=== PATIENT | female | born 1970 | race American Indian/Alaskan Native ===

== ENCOUNTER 2020-12-21 10:40 | Outpatient (REF) | payer MEDICARE, MEDICAID, SELFPAY ==
--- NOTE | ~2020-12-21 | XR_ITS ---
EXAMINATION: XR CHEST CLINICAL INFORMATION: COPD COMPARISON: Chest radiographs 07/16/2017, 06/24/2017, 03/20/2017 TECHNIQUE: 2 views of the chest were obtained. FINDINGS: The lungs are clear. No overt hyperinflation. Diaphragms are well domed. The heart is normal in size. The vascularity is normal. There is no airspace consolidation or groundglass opacity or effusion. The costophrenic sulci are clear. The hilar and mediastinal contours and bony structures are unremarkable. XR/XR chest 2V IMPRESSION: Unremarkable examination.
== END 2020-12-21 10:41 | disposition home or self-care (01) ==
LOC: HO.XRAY 10:40
PROVIDERS: Absent Provider Nurse Practitioner Family; PCP Nurse Practitioner Family; Visit Provider Emergency Medicine
DX: J44.1 Chronic obstructive pulmonary disease with (acute) exacerbation (principal)
CPT/HCPCS: 71046

== ENCOUNTER 2021-06-13 14:27 | Outpatient (REF) | payer MEDICARE, MEDICAID, SELFPAY ==
--- NOTE | ~2021-06-13 | XR_ITS ---
EXAMINATION: XR ELBOW, RIGHT CLINICAL INFORMATION: Olecranon bursitis. COMPARISON: None TECHNIQUE: AP, lateral, and oblique views of the right elbow. FINDINGS: The bones and soft tissues are normal. No fracture or joint effusion. Alignment is anatomic. Joint spaces are maintained. XR/XR elbow RT 2V IMPRESSION: Unremarkable right elbow exam.
== END 2021-06-13 14:28 | disposition home or self-care (01) ==
LOC: HO.XRAY 14:27
PROVIDERS: Absent Provider Nurse Practitioner Family; PCP Nurse Practitioner Family; Visit Provider Emergency Medicine
DX: M70.21 Olecranon bursitis, right elbow (principal)
CPT/HCPCS: 73070

== ENCOUNTER → 2021-08-03 10:48 | Outpatient (BNVA) | payer MEDICARE, MEDICAID, SELFPAY | PROVIDERS: Visit Provider Physician Assistant | DX: M77.11 Lateral epicondylitis, right elbow (principal) | CPT/HCPCS: 20550; 20551; 99212; J1020 ==

== ENCOUNTER 2021-09-04 13:27 | Emergency (ER) | payer MEDICARE, MEDICAID, SELFPAY ==
--- NOTE | 2021-09-04 13:29 | ECG_ITS ---
Test Reason : chest pain Blood Pressure : / mmHG Vent. Rate : 085 BPM Atrial Rate : 085 BPM P-R Int : 206 ms QRS Dur : 140 ms QT Int : 406 ms P-R-T Axes : 050 054 001 degrees QTc Int : 483 ms Normal sinus rhythm Left bundle branch block Abnormal ECG When compared with ECG of 16-JUL-2017 11:48, T wave inversion now evident in Inferior leads Heart rate has increased Referred By: Generic ED Physician Electronically Signed By:TIESHA MURRIETA MD
[2021-09-04 14:50] VITALS: BP 134/71; PULSE 81; RESP 16; TEMP 36.6; O2SAT 97; BMI 30.2
[2021-09-04 16:06] LABS: Appearance Urine HAZY; Color Urine YELLOW; Glucose Urine UA NEG (NEG); Leukocyte Esterase Urine NEG (NEG); Nitrite Urine NEG (NEG); Specific Gravity - Urine >= 1.030 (1.005-1.025); UACC Culture Trigger NO; Urine Blood 3+ (NEG); Urine Ketones 5 MG/DL (NEG); Urine Protein NEG (NEG-TRACE)
[2021-09-04 16:14] LABS: Bacteria Urine TRACE /LPF; Mucus Urine TRACE /LPF; Squamous Epithelial Cell Urine 1+ /LPF
[2021-09-04 16:15] LABS: WBC Urine 0 /HPF (0-4)
[2021-09-04 16:16] LABS: MANUAL DIFF FLAG NO
[2021-09-04 16:19] LABS: Basophils Percent Auto 0.5 % (0-2); Eosinophils Absolute Auto 0.1 X10*3/uL (0.0-0.4); Eosinophils Percent Auto 1.5 % (0-4); Hemoglobin 11.1 g/dl (12.0-16.0); Imm Gran Abs Auto 0.06 X10*3/uL (0.00-0.03); Lymphocytes Absolute Auto 1.7 X10*3/uL (1.2-4.9); Lymphocytes Percent Auto 28.1 % (20-40); Mean Corpuscular HGB Conc 32.6 g/dl (31.0-35.0); Mean Corpuscular Hemoglobin 27.6 pg (27.0-33.0); Mean Corpuscular Volume 84.6 fL (80.0-98.0); Mean Platelet Volume 9.1 fL (9.4-12.3); Monocytes Absolute Auto 0.4 X10*3/uL (0.1-1.2); Neutrophils Absolute Auto 3.8 x10*3/uL (2.0-8.3); Neutrophils Percent Auto 61.9 % (45-73); Platelet Count 326 X10*3/uL (160-400); Red Blood Count 4.02 X10*6/uL (4.20-5.50); Red Cell Distribution Width 15.4 % (11.0-16.0); White Blood Count 6.1 X10*3/uL (4.8-10.8)
[2021-09-04 16:36] LABS: Anion Gap 9 (12-20); Blood Urea Nitrogen 16 mg/dL (9-16); COVID-19 Test Negative (Negative); Calcium 9.3 mg/dL (8.4-10.2); Carbon Dioxide 29 mmol/L (22-29); Chloride 107 mmol/L (96-108); Creatinine Clr Calc Pharmacy 68.8; Estimated Glomerular Filt Rate > 60; Glucose Random 111 mg/dL (60-115); IDNOW Serial# 9DD0AD1C; Potassium 4.2 mmol/L (3.3-5.1); Sodium 141 mmol/L (135-145)
[2021-09-04 16:38] LABS: Troponin-I High Sensitivity < 3.5 ng/L (<3.5-17.0)
--- NOTE | 2021-09-04 16:59 | ED.CHESTPAIN ---
HPI - Chest Pain General Chief Complaint: Chest Pain Stated Complaint: chest pain Time Seen by Provider: 09/04/21 16:59 Source: patient Limitations: no limitations History of Present Illness HPI narrative: Patient with no known coronary artery disease history of hypertension comes here for complaining of dizziness chest pain since 03:00 o'clock in the morning patient went to bed normally mid chest pain woke her up pain is sharp in character getting better/worse with time also she has numbness to the left cheek no shortness of breath no diaphoresis no nausea or vomiting patient never had similar pain in the past no issues with stomach patient does get pain in the chest when she gets a panic attack but this pain she feels different patient had a stress test 2 years ago was negative Related Data Home Medications Medication Instructions Recorded Confirmed albuterol sulfate 90 mcg/actuation 1 inh INHALATION QID 08/03/21 aerosol inhaler (ProAir HFA) azelastine 137 mcg (0.1 %) nasal 1 spray INTRANASAL BID 08/03/21 spray aerosol carbamide peroxide 6.5 % ear drops 5 drp OTIC (EAR) LEFT DAILY 08/03/21 (Debrox) divalproex 125 mg tablet,delayed 125 mg PO TID 08/03/21 release (Depakote) ferrous sulfate 15 mg iron (75 0.5 ml PO DAILY 08/03/21 mg)/mL oral drops fluticasone 100 mcg-salmeterol 50 1 inh INHALATION BID 08/03/21 mcg/dose blistr powdr for inhalation (Advair Diskus) losartan 25 mg tablet 25 mg PO DAILY 08/03/21 melatonin 3 mg capsule 3 mg PO BEDTIME PRN 08/03/21 metoprolol succinate 25 mg 12.5 mg PO DAILY 08/03/21 tablet,extended release 24 hr naproxen 250 mg tablet 250 mg PO BID PRN 08/03/21 quetiapine 25 mg tablet (Seroquel) 25 mg PO DAILY 08/03/21 Allergies Allergy/AdvReac Type Severity Reaction Status Date / Time No Known Allergies Allergy Verified 08/03/21 11:18 Review of Systems Review of Systems: Yes all other systems are reviewed and are negative PMFSH Past Medical History Medical History Bipolar 1 disorder Hypercholesteremia Hypertension Social History Social History Advance Directives: No Advance Directives Information Provided: No Patient : Yes 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al status: disabled 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 Oriented X3. No acute distress. Eyes: No pallor or icterus ENT: Pharynx normal. Oral Mucosa moist Neck: Normal inspection. Neck supple. CVS: Normal heart rate and rhythm. Pulses normal. Respiratory: No respiratory distress. Equal air entry bilateral, no wheezing/rales/rhonchi Abdomen: Soft and nontender. Bowel sounds are present, no mass palpable, no CVA tenderness Skin: Skin warm and dry. Normal skin color. Normal skin turgor. Extremities: No lower extremity edema. No calf tenderness Neuro: Oriented X 3. MDM - Chest Pain MDM Narrative Medical decision making narrative: Two sets of cardiac enzymes negative EKG without any acute ischemic changes patient had a recent stress test 2 years ago was negative. No response to nitro paste. 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 Result diagrams: 09/04/21 15:59 09/04/21 15:59 Labs: Lab Results 09/04/21 09/04/21 09/04/21 Range/Units 15:58 15:59 15:59 WBC 6.1 (4.8-10.8) X10*3/uL RBC 4.02 L (4.20-5.50) X10*6/uL Hgb 11.1 L (12.0-16.0) g/dl Hct 34.0 L (37.0-47.0) % MCV 84.6 (80.0-98.0) fL MCH 27.6 (27.0-33.0) pg MCHC 32.6 (31.0-35.0) g/dl RDW 15.4 (11.0-16.0) % Plt Count 326 (160-400) X10*3/uL MPV 9.1 L (9.4-12.3) fL Immature Gran % (Auto) 1.0 H (0.0-0.4) % Neut % (Auto) 61.9 (45-73) % Lymph % (Auto) 28.1 (20-40) % [place] % (Auto) 7.0 (2-11) % Eos % (Auto) 1.5 (0-4) % Baso % (Auto) 0.5 (0-2) % Lymph # (Auto) 1.7 (1.2-4.9) X10*3/uL [place] # (Auto) 0.4 (0.1-1.2) X10*3/uL Eos # (Auto) 0.1 (0.0-0.4) X10*3/uL Baso # (Auto) 0.0 (0.0-0.2) X10*3/uL Abs Immat Gran (auto) 0.06 H (0.00-0.03) X10*3/uL Absolute Neuts (auto) 3.8 (2.0-8.3) x10*3/uL Absolute Nucleated RBC 0.000 (0.0-0.012) X10*3/uL Nucleated RBC % (auto) 0.0 (0.0-0.2) /100WBC Sodium 141 (135-145) mmol/L Potassium 4.2 (3.3-5.1) mmol/L Chloride 107 (96-108) mmol/L Carbon Dioxide 29 (22-29) mmol/L Anion Gap 9 L (12-20) BUN 16 (9-16) mg/dL Creatinine 0.83 (0.5-1.4) mg/dL Estim Creat Clear Calc 68.8 Estimated GFR > 60 Random Glucose 111 (60-115) mg/dL Calcium 9.3 (8.4-10.2) mg/dL Troponin I High Sens (<3.5-17.0) ng/L Urine Color YELLOW Urine Appearance HAZY Urine pH 6.0 (5.0-8.0) Ur Specific [place] >= 1.030 H (1.005-1.025) Urine Protein NEG (NEG-TRACE) MG/DL Urine Glucose (UA) NEG (NEG) MG/DL Urine Ketones 5 (NEG) MG/DL Urine Blood 3+ H (NEG) Urine Nitrite NEG (NEG) Ur Leukocyte Esterase NEG (NEG) Urine RBC 10-14 H (0) /HPF Urine WBC 0 (0-4) /HPF Ur Squamous Epith Cells 1+ /LPF Urine Bacteria TRACE /LPF Urine Mucus TRACE /LPF COVID-19 (BECKY) (Negative) COVID-19 Clin Com 09/04/21 09/04/21 09/04/21 Range/Units 15:59 15:59 19:00 WBC (4.8-10.8) X10*3/uL RBC (4.20-5.50) X10*6/uL Hgb (12.0-16.0) g/dl Hct (37.0-47.0) % MCV (80.0-98.0) fL MCH (27.0-33.0) pg MCHC (31.0-35.0) g/dl RDW (11.0-16.0) % Plt Count (160-400) X10*3/uL MPV (9.4-12.3) fL Immature Gran % (Auto) (0.0-0.4) % Neut % (Auto) (45-73) % Lymph % (Auto) (20-40) % [place] % (Auto) (2-11) % Eos % (Auto) (0-4) % Baso % (Auto) (0-2) % Lymph # (Auto) (1.2-4.9) X10*3/uL [place] # (Auto) (0.1-1.2) X10*3/uL Eos # (Auto) (0.0-0.4) X10*3/uL Baso # (Auto) (0.0-0.2) X10*3/uL Abs Immat Gran (auto) (0.00-0.03) X10*3/uL Absolute Neuts (auto) (2.0-8.3) x10*3/uL Absolute Nucleated RBC (0.0-0.012) X10*3/uL Nucleated RBC % (auto) (0.0-0.2) /100WBC Sodium (135-145) mmol/L Potassium (3.3-5.1) mmol/L Chloride (96-108) mmol/L Carbon Dioxide (22-29) mmol/L Anion Gap (12-20) BUN (9-16) mg/dL Creatinine (0.5-1.4) mg/dL Estim Creat Clear Calc Estimated GFR Random Glucose (60-115) mg/dL Calcium (8.4-10.2) mg/dL Troponin I High Sens < 3.5 < 3.5 (<3.5-17.0) ng/L Urine Color Urine Appearance Urine pH (5.0-8.0) Ur Specific [place] (1.005-1.025) Urine Protein (NEG-TRACE) MG/DL Urine Glucose (UA) (NEG) MG/DL Urine Ketones (NEG) MG/DL Urine Blood (NEG) Urine Nitrite (NEG) Ur Leukocyte Esterase (NEG) Urine RBC (0) /HPF Urine WBC (0-4) /HPF Ur Squamous Epith Cells /LPF Urine Bacteria /LPF Urine Mucus /LPF COVID-19 (BECKY) Negative (Negative) COVID-19 Clin Com See Note ECG Data ECG #1: Attestation: I personally reviewed and interpreted this ECG as follows: Interpretation: Normal sinus rhythm heart rate 85 beats per minute left branch block tear motion inferior leads no acute ST wave changes Discharge Plan Discharge Clinical Impression: Chest pain Qualifiers: Chest pain type: precordial pain Qualified Code(s): R07.2 - Precordial pain Patient Disposition: Home, Self-Care Instructions: Chest Pain (ED) Additional Instructions: Rest at home Continue take baby aspirin daily Follow with PCP/passenger car 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
[2021-09-04] MEDS: Nitroglycerin 2 % Oint 1 GM Packet 0.5 INCH TRANSDERMA (17:45)
[2021-09-04 19:25] LABS: Troponin-I High Sensitivity < 3.5 ng/L (<3.5-17.0)
[2021-09-04] MEDS: Magnesium Hydrox/Alum Hydrox 30 ML ORAL.SUSP PO (19:45)
== END 2021-09-04 19:55 | disposition home or self-care (01) ==
PROVIDERS: Emergency Provider Internal Medicine; PCP Nurse Practitioner Family
DX: R07.2 Precordial pain (principal); I10 Essential (primary) hypertension; Z20.822 Contact with and (suspected) exposure to COVID-19
CPT/HCPCS: 36415; 80048; 81001; 84484; 85025; 87635; 93005; 99283; 99284

== ENCOUNTER 2021-11-26 10:00 | Outpatient (REF) | payer MEDICARE, MEDICAID, SELFPAY ==
--- NOTE | ~2021-11-26 | MM_ITS ---
EXAMINATION: MM SCREENING DIGITAL BREAST TOMOSYNTHESIS, BILATERAL CLINICAL INFORMATION: Screening. Asymptomatic. Probable benign calcifications right breast central 9:00 position. The lifetime risk of breast cancer based on the Tyrer-Cuzick Model is 7%. COMPARISON: Mammography: 12/25/2017 (BI-RADS 3), 07/07/2017, 01/01/2017, 12/17/2016 (BI-RADS 0) TECHNIQUE: Digital breast tomosynthesis is performed in both the craniocaudal and mediolateral oblique views along with computer-aided detection (CAD). Synthesized 2D images are generated from the tomosynthesis. FINDINGS: The breasts are heterogeneously dense, which may obscure small masses (ACR BI-RADS breast composition Category c). There are subtle architectural changes suggested mid upper outer left breast representing new finding from prior exam. Patient will be recalled for additional imaging. The remainder of the bilateral breast parenchymal pattern is similar to prior studies. There is no significant mass or other areas of architectural change. Calcifications for follow-up central posterior 9:00 right breast are likely stable from prior diagnostic exam. There are also some new coarse benign-appearing calcifications anterior upper outer right breast. Additional magnification views will be obtained at time of recall to complete calcification surveillance. MM/MM tomosynthesis screening BI IMPRESSION: 1. Left: Architectural changes upper outer quadrant, new from prior exams. 2. Right: Grouped calcifications posterior central 9:00 anterior upper outer right breast likely benign. ASSESSMENT: BI-RADS 0: Incomplete - Need Additional Imaging Evaluation RECOMMENDATION: 1. Additional views of the left breast: Rolled CC x2, spot ML. Targeted ultrasound if warranted after review of the additional views. 2. Additional views right breast: Magnification CC, magnification ML. 3. Radiology department staff will contact the patient for additional imaging. This patient's information was entered into a reminder system with a target due date for their next mammogram.
== END 2021-11-26 10:01 | disposition home or self-care (01) ==
LOC: HO.MAMMO 10:00
PROVIDERS: PCP Nurse Practitioner Family; Visit Provider Nurse Practitioner Family
DX: Z12.31 Encounter for screening mammogram for malignant neoplasm of breast (principal)
CPT/HCPCS: 77063; 77067

== ENCOUNTER 2022-01-14 14:25 | Outpatient (REF) | payer MEDICARE, MEDICAID, SELFPAY ==
--- NOTE | ~2022-01-14 | US_ITS ---
EXAMINATION: US DIAGNOSTIC ULTRASOUND BREAST, LEFT CLINICAL INFORMATION: Circumscribed lesion medial aspect of the left breast. Region of architectural distortion lateral aspect of the left breast.. COMPARISON: Mammography of same day and studies dating back to April 04, 2015. TECHNIQUE: Ultrasound of the breast is performed with real-time light scale imaging and color Doppler. FINDINGS: Ultrasound of the lateral aspect of the left breast approximately 2:00 position 7 cm from nipple there is an ill-defined region of parenchyma with some areas of shadowing but no definite focal mass being appreciated. There appears to be some architectural distortion associated with the region of shadowing. Ultrasound-guided core biopsy of this location is recommended with clip placement and then post biopsy mammogram to compare to whether this corresponds to the spiculated region on mammography. Ultrasound evaluation about the medial aspect of the left breast 10:00 position approximately 7 cm from the nipple demonstrates what appears to be a complex cyst with septations. The lesion is wider than it is tall without internal vascularity. There is distal sound enhancement without distal sound shadowing. This measures approximately 2.4 x 1.8 x 0.7 cm in size. Results are discussed with the patient at time of visit. US/US breast LT limited IMPRESSION: Probably benign right breast calcifications for which 6 month follow-up spot magnification views are recommended. Probably benign complex cystic lesion about the medial aspect of the left breast for which 6 month follow-up ultrasound is recommended. Suspicious mammographic and ultrasound lesion about the lateral aspect of the left breast for which attempt at ultrasound-guided core biopsy is recommended. The above was discussed with the patient at time of study. Breast center navigator will call referring provider's office with the above recommendation. ASSESSMENT: BI-RADS 4: Suspicious left breast BI-RADS 3, probably benign right breast. RECOMMENDATION: Ultrasound-guided core biopsy lateral lesion left breast. If ultrasound biopsy cannot be performed then stereotactic core biopsy could be done.
--- NOTE | ~2022-01-14 | MM_ITS ---
EXAMINATION: MM DIAGNOSTIC DIGITAL BREAST TOMOSYNTHESIS, BILATERAL US BREAST TARGETED, LEFT CLINICAL INFORMATION: Right breast calcifications and left breast region of architectural distortion COMPARISON: Mammography: 11/26/2021 and studies dating back to 04/04/2015. TECHNIQUE: Digital breast tomosynthesis is performed. 2D images are generated from the tomosynthesis. The following views are obtained: Left breast craniocaudal and spot compression mediolateral oblique and rolled craniocaudal views. Spot magnification views of the right breast in craniocaudal and 90 degree mediolateral views. Targeted left breast ultrasound. FINDINGS: The breasts are heterogeneously dense, which may obscure small masses (ACR BI-RADS breast composition Category c). Spot magnification views of the right breast demonstrate a grouping of slowly increasing calcifications which are rounded in appearance without linear or branching forms. A stable grouping of skin calcifications are seen within the deep lateral aspect of the right breast. About the superior medial aspect of the left breast, there is a well-circumscribed lobular density measuring approximately 2.4 x 1.9 cm in size lying approximately 7 cm from the nipple. About the upper outer aspect of the left breast, there is a spiculated region of architectural distortion about the deep lateral aspect approximately 8 cm from the nipple. There is question of some associated calcifications. Ultrasound of the lateral aspect of the left breast approximately 2 o'clock position 7 cm from nipple, there is an ill-defined region of parenchyma with some areas of shadowing but no definite focal mass being appreciated. There appears to be some architectural distortion associated with the region of shadowing. Ultrasound-guided core biopsy at this location is recommended with clip placement and then post biopsy mammogram to compare to whether this corresponds to the spiculated region on mammography. Ultrasound evaluation about the medial aspect of the left breast 10 o'clock position approximately 7 cm from the nipple demonstrates what appears to be a complex cyst with septations. The lesion is wider than it is tall without internal vascularity. There is distal sound enhancement without distal sound shadowing. This measures approximately 2.4 x 1.8 x 0.7 cm in size. Results are discussed with the patient at time of visit. MM/MM tomosynthesis added view BI IMPRESSION: 1. Probably benign right breast calcifications for which 6 month follow-up spot magnification views are recommended. 2. Probably benign complex cystic lesion about the medial aspect of the left breast for which 6 month follow-up ultrasound is recommended. 3. Suspicious mammographic and ultrasound lesion about the lateral aspect of the left breast for which attempt at ultrasound-guided core biopsy is recommended. The above was discussed with the patient at time of study. Breast center navigator will call referring provider's office with the above recommendation. ASSESSMENT: BI-RADS 4: Suspicious Left Breast BI-RADS 3: Probably benign right breast. RECOMMENDATION: Ultrasound-guided core biopsy lateral lesion left breast
== END 2022-01-14 14:26 | disposition home or self-care (01) ==
LOC: HO.MAMMO 14:25
PROVIDERS: PCP Nurse Practitioner Family; Visit Provider Nurse Practitioner Family
DX: R92.1 Mammographic calcification found on diagnostic imaging of breast (principal)
CPT/HCPCS: 76642; 77062; 77066

== ENCOUNTER 2022-03-07 09:00 | Outpatient (REF) | payer MEDICARE, MEDICAID, SELFPAY ==
--- NOTE | ~2022-03-07 | US_ITS ---
EXAMINATION: US DIAGNOSTIC ULTRASOUND BREAST, LEFT CLINICAL INFORMATION: Architectural changes outer left breast for tissue sampling (stereotactic versus ultrasound-guided). COMPARISON: Mammography 11/26/2021, 1 01/14/2022, targeted left breast ultrasound 01/14/2022. TECHNIQUE: Ultrasound left breast is targeted to the outer breast. Grayscale imaging and color Doppler are performed. FINDINGS: There is subtle inhomogeneous echogenicity mid outer left breast 7 cm from nipple, likely corresponding to the finding on mammography. There is no strong focal shadowing. As the lesion is more consistently visualized on tomography, tissue sampling using stereotactic guidance was performed, described in separate report. US/US breast LT limited IMPRESSION: Subtle inhomogeneous echogenicity mid outer left breast likely corresponding to finding on recent diagnostic mammography. As the lesion is more consistent with visualized on tomography, stereotactic sampling was performed, described in separate report. ASSESSMENT: BI-RADS 4: Suspicious RECOMMENDATION: Core biopsy left breast using stereotactic guidance. (Biopsy performed 03/07/2022, separate report).
--- NOTE | ~2022-03-07 | MM_ITS ---
EXAMINATION: STEREOTACTIC TOMOSYNTHESIS-GUIDED VACUUM-ASSISTED BREAST BIOPSY, LEFT SPECIMEN RADIOGRAPH, LEFT POST PROCEDURE DIGITAL BREAST TOMOSYNTHESIS, LEFT CLINICAL INFORMATION: Architectural changes outer left breast for tissue sampling. COMPARISON: Mammography 01/14/2022, 11/26/2021, 12/25/2017, ultrasound left breast 03/07/2022, 01/14/2022. TECHNIQUE/PROCEDURE: Informed consent was obtained from the patient after discussion of the benefits, risks, and alternatives to biopsy today. Patient appeared to understand. Gave opportunity for questions. Patient signed consent form. BIOPSY TABLE: [employer] Prone Biopsy System. LESION: Subtle architectural changes outer left breast, approximately 7.5 cm from nipple. LOCAL ANESTHESIA: 10 mL carbonated 1% lidocaine; 10 mL 1% lidocaine with epinephrine. DERMATOTOMY: Single skin don dermatotomy performed. NEEDLE: [employer] Eviva 9-gauge vacuum assisted core biopsy device. APPROACH: caudal cranial. TARGETING: Combination of digital breast tomosynthesis and stereotactic digital mammography used for targeting. CORES: 12. CLIP: [employer] T-shaped marker. SPECIMEN RADIOGRAPH: Specimen radiograph is taken in separate room using digital mammography. There are scattered fibroglandular densities within the cores. POST PROCEDURE DIGITAL BREAST TOMOSYNTHESIS, LEFT: The post biopsy mammogram is performed in separate room using separate digital mammography equipment from the biopsy procedure. CC and ML views are obtained. 2-D synthesized images are generated from the tomography. The breasts are heterogeneously dense, which may obscure small masses (breast composition category: c). The clip marker is in position, corresponding to the vicinity of architectural changes noted on recent imaging. No gross hematoma. The patient tolerated the procedure well. No immediate complications. Home instructions reviewed with the patient. Final pathology results are pending. MM/MM stereotactic biopsy LT IMPRESSION: 1. Digital tomosynthesis-guided core biopsy left breast with clip placement. 2. Specimen radiograph taken and post procedure mammogram. There is satisfactory positioning of the biopsy clip. 3. Final pathology results pending. An addendum report will be issued.
[2022-03-07] MEDS: Lidocaine HCl 1 % 20 ML VIAL 10 ML SUBCUT (11:19)
[2022-03-07] MEDS: Sodium Bicarbonate 8.4% 50 MEQ/50 ML VIAL SUBCUT (11:22)
== END 2022-03-07 09:01 | disposition home or self-care (01) ==
LOC: HO.MAMMO 09:00
PROVIDERS: PCP Nurse Practitioner Family; Visit Provider Surgery
DX: R92.8 Other abnormal and inconclusive findings on diagnostic imaging of breast (principal)
CPT/HCPCS: 19081; 76642; 88305; 88341; 88342; 88360; 99202; A4648

== ENCOUNTER → 2022-03-12 13:45 | Outpatient (BNVA) | payer MEDICARE, MEDICAID, SELFPAY | PROVIDERS: PCP Nurse Practitioner Family; Visit Provider Surgery | DX: R92.8 Other abnormal and inconclusive findings on diagnostic imaging of breast (principal) | CPT/HCPCS: 99212 ==

== ENCOUNTER 2022-03-20 06:13 | Day surgery (SDC) | payer MEDICARE, MEDICAID, SELFPAY ==
--- NOTE | 2022-03-19 09:43 | P.CONAN_ITS ---
Documented by User: Mariia Grove NP 03/19/22 09:45 HPI - Anesthesia Eval Consult details Narrative: 51yo F for Left [place] Node Biopsy, Breast Lumpectomy/Needle Loc PMFSH Active Problems Active Problems: All Active Problems (Updated 02/28/22 @ 07:56 by Rafal Munoz MD) Abnormal ultrasound of breast (Acute) Abnormal mammogram of left breast (Acute) Lateral epicondylitis of right elbow (Acute) Past Medical History Medical History Anemia Bipolar 1 disorder COPD (chronic obstructive pulmonary disease) Hypercholesteremia Hypertension Surgical History Surgical History History of hysterectomy (03/01/22) Hx of foot surgery Social History Social History Alcohol intake: never Patient Tobacco Use Status: Former Tobacco user Quit Date: 8 yrs ago Use of substances other than those prescribed or required for medical reasons: No Are you DNR?: No Advance Directives: No Advance Directives Information Provided: Yes 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al status: disabled 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 Meds Allergies Allergy/AdvReac Type Severity Reaction Status Date / Time No Known Allergies Allergy Verified 03/20/22 06:59 Home Medications Medication Instructions Recorded Confirmed Last Taken Type albuterol sulfate 90 mcg/actuation 1 inh INHALATION QID 08/03/21 03/20/22 Unknown History aerosol inhaler (ProAir HFA) divalproex 125 mg tablet,delayed 125 mg PO TID 08/03/21 03/20/22 Unknown History release (Depakote) ferrous sulfate 15 mg iron (75 0.5 ml PO DAILY 08/03/21 03/20/22 Unknown History mg)/mL oral drops fluticasone 100 mcg-salmeterol 50 1 inh INHALATION BID 08/03/21 03/20/22 Unknown History mcg/dose blistr powdr for inhalation (Advair Diskus) losartan 25 mg tablet 25 mg PO DAILY 08/03/21 03/20/22 Unknown History melatonin 3 mg capsule 3 mg PO BEDTIME PRN 08/03/21 03/20/22 Unknown History metoprolol succinate 25 mg 12.5 mg PO DAILY 08/03/21 03/20/22 Unknown History tablet,extended release 24 hr quetiapine 25 mg tablet (Seroquel) 25 mg PO DAILY 08/03/21 03/20/22 Unknown History umeclidinium 62.5 mcg/actuation 1 inh INHALATION DAILY 03/07/22 03/20/22 Unknown History blister powder for inhalation (Incruse Ellipta) Exam Exam Date and Time: March 19, 2022 0943 Pertinent Lab Results Pertinent Lab Results: Laboratory Tests 09/04/21 09/04/21 15:59 15:59 WBC 6.1 Hgb 11.1 L Hct 34.0 L Plt Count 326 Sodium 141 Potassium 4.2 Chloride 107 Carbon Dioxide 29 BUN 16 Creatinine 0.83 Narrative Narrative: EKG 08/2021 Vent. Rate : 085 BPM ? ? Atrial Rate : 085 BPM ?? P-R Int : 206 ms? QRS Dur : 140 ms ? ? QT Int : 406 ms ? ? ? P-R-T Axes : 050 054 001 degrees ?? QTc Int : 483 ms ? Normal sinus rhythm Left bundle branch block Abnormal ECG When compared with ECG of 16-JUL-2017 11:48, T wave inversion now evident in Inferior leads Heart rate has increased Assessment and Plan Assessment Anesthesia Assessment: Chart Reviewed Documented by User: Tala Hanna MD 03/20/22 12:29 [facility] Past Medical History Medical History Anemia Bipolar 1 disorder COPD (chronic obstructive pulmonary disease) Hypercholesteremia Hypertension Surgical History Surgical History History of hysterectomy (03/01/22) Hx of foot surgery History of Problems with Anesthesia: No Social History Social History Alcohol intake: never Patient Tobacco Use Status: Former Tobacco user Quit Date: 8 yrs ago Use of substances other than those prescribed or required for medical reasons: No Are you DNR?: No Advance Directives: No Advance Directives Information Provided: Yes 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al status: disabled 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 Meds Allergies Allergy/AdvReac Type Severity Reaction Status Date / Time No Known Allergies Allergy Verified 03/20/22 06:59 Home Medications Medication Instructions Recorded Confirmed Last Taken Type albuterol sulfate 90 mcg/actuation 1 inh INHALATION QID 08/03/21 03/20/22 Unknown History aerosol inhaler (ProAir HFA) divalproex 125 mg tablet,delayed 125 mg PO TID 08/03/21 03/20/22 Unknown History release (Depakote) ferrous sulfate 15 mg iron (75 0.5 ml PO DAILY 08/03/21 03/20/22 Unknown History mg)/mL oral drops fluticasone 100 mcg-salmeterol 50 1 inh INHALATION BID 08/03/21 03/20/22 Unknown History mcg/dose blistr powdr for inhalation (Advair Diskus) losartan 25 mg tablet 25 mg PO DAILY 08/03/21 03/20/22 Unknown History melatonin 3 mg capsule 3 mg PO BEDTIME PRN 08/03/21 03/20/22 Unknown History metoprolol succinate 25 mg 12.5 mg PO DAILY 08/03/21 03/20/22 Unknown History tablet,extended release 24 hr quetiapine 25 mg tablet (Seroquel) 25 mg PO DAILY 08/03/21 03/20/22 Unknown History umeclidinium 62.5 mcg/actuation 1 inh INHALATION DAILY 03/07/22 03/20/22 Unknown History blister powder for inhalation (Incruse Ellipta) Exam Airway Mallampati Class: II (Poor dentition) TM Dist: >3cm Neck ROM: Full Loose/Missing/Broken Teeth: No Heart: RRR Lungs: CTA Assessment and Plan Assessment Anesthesia Assessment: Anesthesia Plan Discussed Final Anesthetic Review History of Problems with Anesthesia: No NPO: Yes ASA Class: II Final Preanesthetic Review: Meds/Allgs Chart Reviewed, Consent Obtained/Reviewed and Anes Risks/Benef Reviewed Patient Risk: Low Procedure Risk: Low Anesthetic Plan Anesthetic Plan: GA Disposition: Standard PACU
[2022-03-20] VITALS (8 sets, daily range): BP systolic 133–152; BP diastolic 73–93; PULSE 68–89; RESP 15–20; TEMP 36.3–36.6; O2SAT 96–100; BMI 29.7
--- NOTE | ~2022-03-20 | NM_ITS ---
EXAMINATION: NM LYMPHOSCINTIGRAPHY BREAST, LEFT CLINICAL INFORMATION: Invasive ductal cancer with tubular features left breast. COMPARISON: Mammography 11/26/2021, 01/14/2022, 03/07/2022. TECHNIQUE: Informed consent was obtained prior to the exam. Lidocaine gel administered to areola within 60 minutes of the procedure. Technetium 99m-Tilmanocept 0.5 mCi was divided into 4 syringes with intradermal administration at 4 quadrants around the areola. The patient tolerated the procedure well. Imaging is performed in 3 views within 30 minutes of injection. FINDINGS: There is strong activity around the areola. There is a strong focus of activity at the low axillary tail. The CANDACE view suggests several nodes with activity. NM/NM sentinel node w imaging IMPRESSION: Status post left breast radionuclide lymphoscintigraphy for sentinel lymph node mapping.
--- NOTE | ~2022-03-20 | MM_ITS ---
EXAMINATION: MM MAMMOGRAM GUIDED NEEDLE LOCALIZATION BREAST, LEFT MM NEEDLE LOCALIZATION SPECIMEN FROM THE LEFT BREAST CLINICAL INFORMATION: Recent diagnosis left breast cancer (invasive ductal carcinoma with tubular features, DCIS, LCIS, flat epithelial atypia). COMPARISON: Mammography 11/26/2021, 01/14/2022, 03/07/2022. TECHNIQUE NEEDLE LOC: Proper informed consent is obtained from the patient after discussion of the procedure, potential risks and complications, and alternatives including declining the procedure today. Patient was given an opportunity for questions. The patient appeared to understand. Also obtained consent for sentinel lymph node mapping to be described in separate report. The patient consented to the procedure and signed the consent form. GUIDANCE: Digital mammography. APPROACH: Lateral Medial. TARGET: T-shaped biopsy clip marker and biopsy changes posterior lateral left breast. ANESTHESIA: Carbonated lidocaine 1%: 5 mL. LOCALIZATION MARKER: [place] [employer]. 7.5 cm length. The skin is prepped and local anesthesia administered. The needle is positioned and position assessed with mammography. The wire is hooked into position. [place] needle protector placed. The patient tolerated the procedure well and had no immediate complication. Following the procedure, 4% lidocaine ointment was administered to the left areola and covered with Tegaderm in anticipation of nuclear lymphoscintigraphy injection for sentinel lymph node mapping. Localization procedure results called to senior medical billing specialist (Geovanna) for Dr. Munoz following procedure. TECHNIQUE SPECIMEN RADIOGRAPH: Imaging of the excised specimen is performed using digital mammography in 1 view. FINDINGS SPECIMEN RADIOGRAPH: The specimen shows the distal needle and distal hookwire are delivered intact. The proximal needle and wire were sectioned in OR prior to delivery of the specimen. The biopsy clip marker is identified in the specimen adjacent to the localization needle. Results were called to Dr. Rafal Munoz in the operating room at the time of imaging. MM/MM needle loc LT IMPRESSION: 1. Status post left breast needle localization with wire hooked into position. 2. Post operative specimen radiograph obtained.
--- NOTE | 2022-03-20 07:36 | MHC.SHP ---
Pre-Procedural Eval Section A Date of Service: 03/20/22 The patient is an INPATIENT: No Changes since office visit: Yes Patient answered all questions; No Cold of Flu in the past 2 weeks, No New Medical Problems and No Changes in Medication The History & Physical has been completed within 30 days and I have reviewed it.: Yes Section B Chief Complaint: abnormal fingings Allergies: Allergies Allergy/AdvReac Type Severity Reaction Status Date / Time No Known Allergies Allergy Verified 03/20/22 06:59 Plan Diagnosis/Plan: Unchanged I have reviewed the history and physical and performed a pertinent physical examination on my patient. No changes have occurred unless specified.
[2022-03-20] MEDS: Lidocaine HCl 1 % 20 ML VIAL 9 ML SUBCUT (09:17)
[2022-03-20] MEDS: Sodium Bicarbonate 8.4% 50 MEQ/50 ML VIAL SUBCUT (09:18)
--- NOTE | 2022-03-20 13:45 | W.PM.OPN ---
Operative Note Operative Note Date of Service: 03/20/22 Narrative: Preoperative diagnosis:Left breast Invasive ductal carcinoma Postoperative diagnosis:same Procedure:Left breast lumpectomy with needle localization, left axillary sentinel node biopsy Surgeon: Rafal Munoz MD Animal Killer: no physician Anesthesia:General LMA Indications for procedure: 51 year old female with an abnormal mammogram, s/p radiologic biopsy, positive for ductal carcinoma, left breast. Operative findings:Localizing clip in the specimen xray, gross margins negative Specimen:1. left breast lumpectomy, 2. left axillary sentinel nodes 1-4. Estimated blood loss:15 mls Complications:none Procedure details: Patient was brought to the OR placed in a supine position. After administering general anesthesia the patient's left breast and axilla were prepped with ChloraPrep and draped in a sterile fashion. A surgical time-out was called the consent confirmed. Patient received preoperative antibiotics and Venodyne boots were in place. Local anesthesia consisting of 0.25% Sensorcaine was then infiltrated in a in a curvilinear fashion just below the nipple-areolar complex in the 7 to 4 o'clock position. A curvilinear incision was then made carried out through subcutaneous tissue. Superior and inferior skin flaps were then created. Dissection was then continued down to the localizing needle in the lower outer quadrant of the left breast. The dissection was then continued around the needle down to the tip and beginning in the medial followed by a lateral followed by superior and posterior margins. The needle was cut and brought up through the incision. Posterior margins were then completed and the specimen removed. This was then sent to Radiology for specimen x-ray. This confirmed a marking clip within the specimen. It was then sent to pathology for gross margin examination. Attention was then directed to the left axilla. Using the gamma probe an area of increased activity was noted. Incision was then made just below the hairline of the left axilla. This carried down through subcutaneous tissue up to the clavipectoral fascia. Using the gamma probe as a guide several hot nodes were identified. These were labeled as sentinel node 1 through 4. These were sent as separate specimens. Wounds were then checked for hemostasis. Wounds were irrigated with saline solution and suctioned dry. Clavipectoral fascia was then reapproximated using interrupted 3-0 Polysorb sutures. Dermis was reapproximated using interrupted 3-0 Polysorb sutures. Skin was then closed using a running subcuticular Polysorb suture. After confirmation from pathology that the specimen was complete, the deep breast tissue was reapproximated using interrupted 3-0 Polysorb sutures. Dermis was reapproximated using interrupted 3-0 Polysorb sutures. Skin was closed using a running subcuticular 4-0 Polysorb suture. Sterile soft dressings consisting of Steri-Strips, 2 x 2 gauze, and Tegaderm were then applied. The patient tolerated the procedure well. Sponge, instrument, needle counts reported as correct. Patient was transferred to PACU in stable condition. Breast [place] Node Biopsy Substrate(s) used for sentinel node biopsy in the non-neoadjuvant setting: Radiotracer Substrate(s) used for sentinel node biopsy in the neoadjuvant setting: N/A All colored nodes or non-colored nodes present at the end of a dye filled lymphatic channel were removed, if dye was used as the substrate for localization: N/A All significantly radioactive nodes were removed, if radionuclide was used as the substrate for localization: Yes All palpably suspicious nodes were removed, if present: Yes If clips were placed in pathology-involved nodes, those nodes were identified and removed: N/A General Surg. - Synoptic Notes Breast [place] Node Biopsy Substrate(s) used for sentinel node biopsy in the non-neoadjuvant setting: Radiotracer Substrate(s) used for sentinel node biopsy in the neoadjuvant setting: N/A All colored nodes or non-colored nodes present at the end of a dye filled lymphatic channel were removed, if dye was used as the substrate for localization: N/A All significantly radioactive nodes were removed, if radionuclide was used as the substrate for localization: Yes All palpably suspicious nodes were removed, if present: Yes If clips were placed in pathology-involved nodes, those nodes were identified and removed: N/A
[2022-03-20] MEDS: fentaNYL citrate/PF 100 MCG/2 ML VIAL 50 MCG IVPUSH ×2 (13:53→14:06)
[2022-03-20] MEDS: Acetaminophen 325 MG TABLET 650 MG PO (14:07)
[2022-03-20] MEDS: oxyCODONE HCl Immed Release 5 MG TABLET PO (14:07)
== END 2022-03-20 15:51 | disposition home or self-care (01) ==
PROVIDERS: PCP Nurse Practitioner Family; Visit Provider Surgery
PROC: (CPT 19301; principal; 2022-03-20 11:30)
PROC: (CPT 19301; 2022-03-20 11:30)
DX: C50.512 Malignant neoplasm of lower-outer quadrant of left female breast (principal); Z17.0 Estrogen receptor positive status [ER+]; F31.9 Bipolar disorder, unspecified; I10 Essential (primary) hypertension; E78.00 Pure hypercholesterolemia, unspecified; Z79.899 Other long term (current) drug therapy; Z90.710 Acquired absence of both cervix and uterus; Z87.891 Personal history of nicotine dependence
CPT/HCPCS: 19301; 38525; 19281; 78195; 88305; 88307; 88329; 88342; A4648; A9520; J0690; J2250; J3010

== ENCOUNTER → 2022-03-28 09:56 | Outpatient (BNVA) | payer MEDICARE, MEDICAID, SELFPAY | PROVIDERS: PCP Nurse Practitioner Family; Referring Provider Nurse Practitioner Family; Visit Provider Surgery | DX: C50.912 Malignant neoplasm of unspecified site of left female breast (principal); R92.8 Other abnormal and inconclusive findings on diagnostic imaging of breast | CPT/HCPCS: 99212 ==

== ENCOUNTER 2022-05-27 14:29 | Outpatient (REF) | payer MEDICARE, MEDICAID, SELFPAY ==
--- NOTE | ~2022-05-27 | MR_ITS ---
EXAMINATION: MR LUMBAR SPINE WITHOUT CONTRAST CLINICAL INFORMATION: Lower back pain radiating down the left leg COMPARISON: None TECHNIQUE: MRI of the lumbar spine was obtained using routine sequences without contrast. FINDINGS: The last well-formed disc space is designated L5-S1. There is a rudimentary disc space at S1-S2. Normal anatomic alignment. No suspicious marrow signal or focal osseous lesion. The vertebral body heights are maintained. The intervertebral discs are of normal height and signal. The conus medullaris terminates at the level of L2. The distal spinal cord is normal in appearance. The cauda equina nerve roots appear normal. No significant abnormalities of the paraspinal musculature.. Incompletely visualized likely cystic lesion in the region of the left adnexa measuring up to 4.6 cm (series 3 image 4). Small right upper pole renal cyst .The abdominal aorta is of normal contour and caliber. SPINAL LEVELS: L1-L2: No significant spinal canal or neuroforaminal narrowing. L2-L3: No significant spinal canal or neuroforaminal narrowing. L3-L4: No significant spinal canal or neuroforaminal narrowing. Mild facet arthropathy. L4-L5: No significant spinal canal or neuroforaminal narrowing. Mild facet arthropathy L5-S1: No significant spinal canal or neuroforaminal narrowing. Moderate right facet arthropathy. MR/MR lumbar spine wo con IMPRESSION: 1. Mild to moderate lower lumbar facet arthropathy. No significant spinal canal stenosis, neural foraminal narrowing, or evidence of nerve impingement. 2. Incompletely visualized likely cystic lesion in the region of the left adnexa measuring up to 4.6 cm. Recommend further evaluation with pelvic ultrasound
== END 2022-05-27 14:30 | disposition home or self-care (01) ==
LOC: HO.MRI 14:29
PROVIDERS: Visit Provider Nurse Practitioner Family
DX: M54.50 Low back pain, unspecified (principal)
CPT/HCPCS: 72148

== ENCOUNTER → 2022-06-19 13:09 | Outpatient (REF) | payer MEDICARE, MEDICAID, SELFPAY ==
--- NOTE | 2022-06-19 13:13 | ECG_ITS ---
Hook-up date: 2022-06-19 12:31:00 Duration: 25:15:00 Test Indications: ORTHOSTAT. HYPOTENSION, DIZZINES Medications: 646628 QRS complexes 14 Ventricular ectopics which represent <1 % of total QRS comp. * Supraventricular ectopics which represent % of total QRS comp. * Paced QRS complexs which represent % of total QRS comp. VENTRICULAR ECTOPY 14 Isolated 0 Bigeminal Cycles 0 Couplets 0 Runs 0 Beats in Runs * Beats LONGEST at * BPM at :: -- * Beats FASTEST at * BPM at :: -- SUPRAVENTRICULAR ECTOPY * Isolated * Couplets * Runs * Beats in Runs * Beats LONGEST at * BPM at :: -- * Beats FASTEST at * BPM at :: -- HEART RATES 64 MIN at 04:42:11 2022-06-20 86 AVG 131 MAX at 18:31:45 2022-06-19 LONGEST RR 0.9920 secs at 22:49:10 2022-06-19 S-T LEVELS Channel 1 - 128 mm at 12:31:00 2022-06-19 - 128 mm at 12:31:00 2022-06-19 Channel 2 - 128 mm at 12:31:00 2022-06-19 - 128 mm at 12:31:00 2022-06-19 Channel 3 - 128 mm at 03:15:01 -- - 128 mm at 03:15:01 Underlying rhythm is sinus; Average ventricular rate 86/min; range 64-131/min; About 19% of the time, rate >100/min; Very rare ventricular ectopy; No sustained arrhythmias; Patient did not report any symptoms in the diary Referred By: Tara Paniagua Overread By: EVA CARLIN
== END ==
LOC: HO.CARD 13:09
PROVIDERS: PCP Nurse Practitioner Family; Visit Provider Nurse Practitioner Family
DX: I95.1 Orthostatic hypotension (principal); R42 Dizziness and giddiness
CPT/HCPCS: 93225; 93226

== ENCOUNTER → 2022-07-11 13:27 | Outpatient (REF) | payer MEDICARE, MEDICAID, SELFPAY ==
--- NOTE | 2022-07-11 13:31 | CA_ITS ---
Transthoracic Echocardiogram Patient (Last, First, Middle): Renita Haddad, Gender: Female Date of : 1970 Age: 51 Procedure Date: 07/11/2022 Procedure Type: Transthoracic Echocardiogram Location: OP Height: 149.86 cm Weight: 74.84 kg BSA: 1.70 m2 Heart Rate: 69 bpm BP: 110 / 70 mmHg Purification Supervisor: JOHN Referring MD: Tara Paniagua Electric Lift Truck Driver: Ganga Evans MD Symptoms: R42 DIZZINESS GIDDINESSINCREASE IN CARDIOMEGALY ON XR AT [facility] Study Quality: Good ECG Rhythm: Sinus Conclusions: - 1. Moderate LV systolic dysfunction with LVEF of 35-40% with mild LVH with grade 1 diastolic dysfunction 2. Normal cardiac valvular Doppler 3. Normal RV systolic pressure 4. No gross pericardial effusion Findings Left Ventricle Normal left ventricular cavity size. There is mildly increased left ventricular wall thickness. The left ventricular systolic function is moderately decreased. The visually estimated ejection fraction is between 40 45%. There is paradoxical septal motion consistent with a left bundle branch block. Spectral Doppler is indicative of an impaired relaxation filling pattern. E/E prime ratio is <8, consistent with normal filling pressures. possible basal and mid inferoseptal and inferior hypokinesis. Right Ventricle Normal right ventricular cavity size and systolic function. Atria Both atria are normal in size. Interatrial shunt cannot be excluded. Aortic Valve The aortic valve structure and function is likely normal. There is no aortic valve stenosis. There is no aortic valve regurgitation. Mitral Valve There is mild anterior and posterior mitral leaflet thickening. There is trace mitral valve regurgitation. There is no mitral valve stenosis. Pulmonic Valve The pulmonic valve was not well visualized. Tricuspid Valve Likely normal tricuspid valve structure and function. There is trace tricuspid valve regurgitation. The right ventricular systolic pressure is normal. The right ventricular systolic pressure is 18 mmHg. Normal right atrial pressure. There is no evidence of pulmonary hypertension. Great Vessels All visible segments of the aorta are normal in size. The pulmonary artery was not well visualized. Venous The inferior vena cava is normal in size and collapses greater than 50% with inspiration. Pericardium/Pleural There is no evidence of pericardial effusion. Prior Study Comparison Changes noted compared to prior study dated: 08/05/2017. LV systolic dysfunction further reduced Measurements 2D Linear Measurements IVSd: 1.20 0.6-0.9/0.6-1.0 cm LVIDd: 5.14 3.9-5.3/4.2-5.9 cm LVIDd Index: 3.02 2.4-3.2/2.2-3.1 cm/m2 LVIDs: 4.19 2.0-3.6 cm LVPWd: 1.24 0.7-1.1 cm LA Diam: 3.90 2.7-3.8/3.0-4.0 cm LAIDs Index: 2.29 1.5-2.3 cm/m2 LV Mass: 311.71 67-162/88-224 g LV Mass Index: 183.36 43-95/49-115 g/m2 LVOT Diam: 1.80 3.0+(-)1.3 cm 2D Systolic Function EF 4C: 35.30 >55% EF 2C: 44.30 >55% EF BiP: 37.90 >55% Mitral Valve MV Pk E: 0.59 MV PK A: 0.90 MV Decel Time: 210.00 E/A: 0.70 E'Lateral: 5.77 E'Medial: 3.32 E/E' Med: 17.80 E/E' Lat: 10.20 PHT: 62.00 MVA PHT: 3.55 Decel [place]: 2.81 Aortic Valve AoV Pk [place]: 1.66 AoV Mn [place]: 1.20 AoV VTI: 0.36 AoV Pk Grad: 11.00 Aov Mn Grad: 7.00 WILDER Cont.VTI: 1.45 LVOT LVOT Pk [place]: 1.08 LVOT Mn [place]: 0.77 LVOT VTI: 0.21 LVOT Pk Grad: 5.00 LVOT Mn Grad: 3.00 LVOT Diam: 1.80 LVOT Area: 2.54 Diastolic Function MV Pk E: 0.59 MV Pk A: 0.90 E/A: 0.70 E'Medial: 3.32 E/E' Med: 17.80 E' Laterial: 5.77 E/E' Lat: 10.20 Right Ventricle TAPSE (mm): 23.50 TVS' [place]: 9.73 Tricuspid Valve TR Pk [place]: 1.92 TR Pk Grad: 15.00 RA Press: 3.00 RVSP: 18.00 Great Vessels Aorta Sinus of Valsalva: 2.50 2.0-3.5 cm Ao Asc: 3.00 2.1-3.4 cm Pulmonary Valve PV Pk [place]: 1.48 Peak PV Grad: 9.00 Updated in Other Vendor System with Status of Final Ganga Evans MD electronically signed on 07/12/2022 11:47:18 AM with status of Final
== END ==
LOC: HO.CARD 13:27
PROVIDERS: PCP Nurse Practitioner Family; Visit Provider Nurse Practitioner Family
DX: R42 Dizziness and giddiness (principal)
CPT/HCPCS: 93306

== ENCOUNTER 2022-07-12 09:50 | Outpatient (REF) | payer MEDICARE, MEDICAID, SELFPAY ==
--- NOTE | ~2022-07-12 | US_ITS ---
EXAMINATION: US PELVIS CLINICAL INFORMATION: Left adnexal cyst. Back pain. COMPARISON: None TECHNIQUE: The pelvis was evaluated using transabdominal and transvaginal imaging. Today's examination is limited secondary to patient body habitus and a decompressed bladder. FINDINGS: The uterus is surgically absent. The left ovary measures approximately 2.4 x 1.4 x 2.0 cm and is normal. The right ovary measures approximately 3.3 x 1.9 x 2.0 cm and is also normal. There are no abnormal adnexal masses. There is no free fluid in the pelvis. US/US pelvic and transvaginal IMPRESSION: -Grossly unremarkable sonographic imaging of the ovaries. -The uterus is surgically absent.
== END 2022-07-12 09:51 | disposition home or self-care (01) ==
LOC: HO.US 09:50
PROVIDERS: PCP Nurse Practitioner Family; Visit Provider Nurse Practitioner Family
DX: M54.50 Low back pain, unspecified (principal); N94.9 Unspecified condition associated with female genital organs and menstrual cycle
CPT/HCPCS: 76830; 76856

== ENCOUNTER → 2022-07-30 09:44 | Outpatient (BNVA) | payer MEDICARE, MEDICAID, SELFPAY | PROVIDERS: PCP General Practice; Referring Provider Nurse Practitioner Family; Visit Provider Internal Medicine | DX: I42.8 Other cardiomyopathies (principal) | CPT/HCPCS: 93005; 99202 ==

== ENCOUNTER 2022-07-30 12:19 | Emergency (ER) | payer MEDICARE, MEDICAID, SELFPAY ==
--- NOTE | ~2022-07-30 | XR_ITS ---
EXAMINATION: XR KNEE, RIGHT 2 views CLINICAL INFORMATION: Fall with right knee pain COMPARISON: None TECHNIQUE: Two views of the right knee. FINDINGS: There is mild to moderate medial joint space narrowing. No osteochondral lesions observed. No bony fracture or dislocation. Cortical surfaces intact. No significant joint effusion. XR/XR knee RT 2V IMPRESSION: No bony fracture or dislocation. Degenerative change.
[2022-07-30 13:12] VITALS: BP 107/62; PULSE 73; RESP 18; TEMP 36.1; O2SAT 100; BMI 32.3
--- NOTE | 2022-07-30 13:53 | PC.NURSE ---
call x 3 to [facility]. No answer
[2022-07-30] MEDS: oxyCODONE HCl Immed Release 5 MG TABLET PO (14:45)
--- NOTE | 2022-07-30 15:01 | ED_ITS ---
HPI - Extremity Injury (Lower) General Chief Complaint: Extremity Injury, Lower Stated Complaint: fall/rt knee swelling Time Seen by Provider: 07/30/22 14:37 Source: patient Mode of arrival: ambulatory History of Present Illness HPI Narrative: 52-year-old female with a past medical history of anemia, bipolar, COPD, HLD, HTN, on baby ASA presenting to the ED complaining of right knee pain s/p mechanical trip and fall [employer]. States was at the pharmacy picking up her medications when tripped on the way in landing on right knee/elbow and hit right posterior head. Denies LOC. Has been minimally ambulatory since the incident. Denies headache, nausea/vomiting, lightheadedness/dizziness, numbness/tingling. Denies symptoms prior to fall including CP/SOB Onset (ago): hour(s) Related Data Home Medications Medication Instructions Recorded Confirmed albuterol sulfate 90 mcg/actuation 1 inh inhalation QID 08/03/21 07/30/22 aerosol inhaler (ProAir HFA) losartan 25 mg tablet 25 mg PO DAILY 08/03/21 07/30/22 metoprolol succinate 25 mg 12.5 mg PO DAILY 08/03/21 07/30/22 tablet,extended release 24 hr umeclidinium 62.5 mcg/actuation 1 inh inhalation DAILY 03/07/22 07/30/22 blister powder for inhalation (Incruse Ellipta) atorvastatin 80 mg tablet 80 mg PO DAILY 07/30/22 07/30/22 ferrous sulfate 325 mg (65 mg 325 mg PO Q OTHER DAY 07/30/22 07/30/22 iron) tablet (FeroSul) gabapentin 100 mg capsule 100 mg PO TID 07/30/22 07/30/22 pantoprazole 40 mg tablet,delayed 40 mg PO DAILY 07/30/22 07/30/22 release Previous Rx's Medication Instructions Recorded tamoxifen 20 mg tablet 20 mg PO DAILY #90 tabs 07/09/22 acetaminophen 500 mg tablet 500 mg PO Q6H PRN fever or pain 07/30/22 (Tylenol Extra Strength) #14 tabs furosemide 20 mg tablet (Lasix) 20 mg PO DAILY #30 tabs 07/30/22 naproxen 500 mg tablet 500 mg PO BID PRN pain 10 days #20 07/30/22 tabs Allergies Allergy/AdvReac Type Severity Reaction Status Date / Time lisinopril Allergy Cough Verified 07/30/22 10:06 Review of Systems Review of Systems: Constitutional: No Fever, No Chills, No Fatigue, No Malaise ENT/Mouth: No Ear Pain, No Nasal Congestion, No Hoarseness, No sore throat, No Rhinorrhea, No Swallowing Difficulty Eyes: No Eye Pain, No Swelling, No Redness, No Vision Changes Cardiovascular: No Chest Pain, No SOB, No Edema Respiratory: No Cough, No Sputum, No Dyspnea Gastrointestinal: No Nausea, No Vomiting, No Diarrhea, No Constipation, No Abdominal pain Genitourinary: No Dysuria, No Urinary Frequency, No Hematuria, No Urinary Incontinence/retention, No Urgency, No Flank Pain Musculoskeletal: + joint pain, No Myalgias, No Joint Swelling Skin: No Skin Lesions, No rash Neuro: No Weakness, No Numbness, No Paresthesias, No Loss of Consciousness, No Dizziness, No Headache, +hit head Yes all other systems are reviewed and are negative Constitutional: Constitutional: Reports as per HPI Neurologic: Denies Abnormal speech present [facility] Past Medical History Attestation statement: The following information was validated with the patient. Medical History Anemia Bipolar 1 disorder COPD (chronic obstructive pulmonary disease) Hypercholesteremia Hypertension Surgical History History of hysterectomy (03/01/22) History of lumpectomy of left breast (03/20/22) Hx of foot surgery Family History Family History Maternal Aunt Lupus Mother Breast cancer Social History Social History Household Members: None Housing: Apartment Are you a primary childcare aide to a significant other at home: No Do you presently have visiting nurse or other home services: No Alcohol intake: never Patient Tobacco Use Status: Former Tobacco user Quit Date: 8 yrs ago Tobacco use type: Cigarette Advance Directives: No service: No 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al status: disabled 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 Physical Exam Vital Signs: Vital Signs: Last Vital Signs Temp 97.0 F 07/30/22 13:12 Pulse 73 07/30/22 13:12 Resp 18 07/30/22 13:12 BP 107/62 07/30/22 13:12 Pulse Ox 100 07/30/22 13:12 BMI result Body Mass Index 32.3 Const: General: cooperative, healthy appearing, comfortable and no acute distress Orientation/consciousness: patient oriented x3 Limitations: no limitations HEENT: Head: Yes normal to inspection, Yes atraumatic, No abrasion and No hematoma Ears: hearing grossly normal bilaterally General nose exam: Normal external nose present Face and sinus: Yes normal facial exam Mouth: Normal oral and palatal mucosa present Throat: Yes posterior oropharynx normal, Yes tonsils normal and Yes uvula midline Eyes: General: appearance normal, both eyes and all related structures Pupils: Equal, round and reactive pupils present EOM: EOMs intact bilaterally Neck: Other: No midline cervical spinous tenderness Neck: Yes normal visual inspection, Yes full ROM and Yes no meningeal signs Resp: Effort & Inspection: normal respiratory effort and no respiratory distress Cardio: Rate: regular rate Heart sounds: S1 normal heart sound present and S2 normal heart sound present GI: Inspection: Yes normal to inspection Palpation (GI): Soft to palpation, nontender, no guarding and not rigid : General: Yes no CVA tenderness Back/Spine/Pelvis: Other: No midline thoracic/lumbar spinous tenderness/step-off or deformity Back: no CVA tenderness Skin: Rashes: no rashes Wounds: no wounds Neuro: General: patient oriented x3, tone normal, moves all extremities, no meningeal signs, no focal motor deficits, CN's II-XI intact bilaterally and Unable to assess gait (Secondary to right knee pain) Cranial nerves: Yes CN's II-XII intact bilaterally and Yes Equal, round and reactive pupils present Cognition (Neuro): normal cognition Speech: No Abnormal speech present Gait exam (Neuro): Unable to assess gait (Secondary to right knee pain) Motor exam (neuro): 5/5 motor strength present throughout Extrem: Other: Right elbow without noted deformity, minimally tender to palpation. Full range of motion intact Right knee with overlying abrasion and small ecchymosis. Tender to palpation. Decreased flexion secondary to pain. Neurovascular intact distally. No deformity Course Course Course Narrative: 1500--XR knee RT 2V IMPRESSION: No bony fracture or dislocation. Degenerative change. ? -BLAYNE wrap applied for comfort, supplied with crutches > Results discussed with patient including worrisome signs and symptoms and strict return precautions, and when to return to the emergency department. They verbalized understanding and feel safe for discharge at this time. MDM - Extremity Injury (Lower) MDM Narrative Medical decision making narrative: 52-year-old female with a past medical history of anemia, bipolar, COPD, HLD, HTN, on baby ASA presenting to the ED complaining of right knee pain s/p mechanical trip and fall [employer]. On exam vital signs stable, NAD, nontoxic appearing, no midline spinous tenderness throughout, physical exam as above. Concern for fracture vs tendon/ligamental injury vs ICH/concussion. Recommended head CT however patient refused, denies headache, states only worried about her knee Plan: X-rays Medical Records Attestation: I reviewed the patient's medical records. Lab Data Attestation: I reviewed the patient's lab results. Discharge Plan Discharge Clinical Impression: Injury of knee Qualifiers: Encounter type: initial encounter Laterality: right Qualified Code(s): S89.91XA - Unspecified injury of right lower leg, initial encounter Patient Disposition: Home, Self-Care Instructions: Crutch Instructions (ED), Knee Pain (ED) Additional Instructions: Your x-rays unremarkable. Wear Blayne wrap and use crutches as needed at home for comfort and stability Ice and elevate Naproxen as an anti-inflammatory/pain medication, take with food. Additionally take Tylenol. Please follow-up with her primary care doctor [facility] as needed Return to the emergency department if symptoms persist or worsen Prescriptions: New acetaminophen [Tylenol Extra Strength] 500 mg tablet 500 mg PO Q6H PRN (Reason: fever or pain) Qty: 14 0RF naproxen 500 mg tablet 500 mg PO BID PRN (Reason: pain) 10 Days Qty: 20 0RF No Action tamoxifen 20 mg Tablet 20 mg PO DAILY Qty: 90 3RF metoprolol succinate 25 mg tablet extended release 24 hr 12.5 mg PO DAILY albuterol sulfate [ProAir HFA] 90 mcg/actuation HFA aerosol inhaler 1 inh inhalation QID losartan 25 mg tablet 25 mg PO DAILY Incruse Ellipta 62.5 mcg/actuation blister with device 1 inh inhalation DAILY atorvastatin 80 mg tablet 80 mg PO DAILY pantoprazole 40 mg tablet,delayed release (DR/EC) 40 mg PO DAILY ferrous sulfate [FeroSul] 325 mg (65 mg iron) tablet 325 mg PO Q OTHER DAY gabapentin 100 mg capsule 100 mg PO TID furosemide [Lasix] 20 mg tablet 20 mg PO DAILY Qty: 30 2RF Referrals: [facility] [place] Orthopedic Surgeons [Provider Group] (as needed) Interventions: ED Discharge Assessment Last Done: 07/30/22 15:27 Discharge Date/Time: 07/30/22 15:29
== END 2022-07-30 15:29 | disposition home or self-care (01) ==
PROVIDERS: Emergency Provider Emergency Medicine; PCP General Practice
DX: S89.91XA Unspecified injury of right lower leg, initial encounter (principal); R60.0 Localized edema; R07.89 Other chest pain; W01.0XXA Fall on same level from slipping, tripping and stumbling without subsequent striking against object, initial encounter; Y93.9 Activity, unspecified; Y92.9 Unspecified place or not applicable; Y99.9 Unspecified external cause status; Z79.899 Other long term (current) drug therapy; Z87.891 Personal history of nicotine dependence
CPT/HCPCS: 73560; 93005; 99202; 99283

== ENCOUNTER → 2022-08-20 09:54 | Outpatient (BNVA) | payer MEDICARE, MEDICAID, SELFPAY | PROVIDERS: PCP General Practice; Visit Provider Surgery | DX: C50.912 Malignant neoplasm of unspecified site of left female breast (principal); Z17.0 Estrogen receptor positive status [ER+]; N64.4 Mastodynia; Z92.3 Personal history of irradiation | CPT/HCPCS: 99212 ==

== ENCOUNTER → 2022-08-27 08:32 | Outpatient (REF) | payer MEDICARE, MEDICAID, SELFPAY ==
--- NOTE | ~2022-08-27 | NM_ITS ---
Myocardial perfusion study Indication: Chest pain with cardiomyopathy to evaluate for myocardial ischemia Technique: The patient was brought in for a Lexiscan perfusion study on 08/27/2022. Patient performed low-level exercise and was injected 0.4 mg of Lexiscan intravenously. Within a minute of injection, 25 mCi of sestamibi was given intravenously. Images were obtained using the SPECT gamma camera interlaced with the gating device. Images were obtained in supine position. Resting perfusion study was performed on 08/28/2022. Patient was administered 25 mCi of sestamibi intravenously at rest. Images were then obtained in supine position. Images obtained with and without CT attenuation. Total DLP 101 mGy-cm. Images were processed with the software and compared side to side in short axis, horizontal long axis and vertical long axis views. Findings: The stress perfusion study showed non attenuated images show mildly reduced uptake in the anterior, apical as well as anterolateral and septal wall of the LV myocardium. Attenuation corrected images also show mildly to moderately reduced uptake in the anterior wall as well as moderately reduced uptake in the apex, septum as well as mildly reduced uptake in the anterolateral wall of the LV myocardium.. The gated study shows severely reduced LV systolic function with calculated LVEF of 30%. LV cavity is moderately dilated size. The gated study shows diffusely reduced wall thickening and contraction of segments. Resting study shows improved uptake in the anterior, septal, anterolateral and apical wall of the LV myocardium both attenuated as well as non attenuated corrected images.. Gating at rest reveals diffuse wall motion with ejection fraction at 30%. The findings are consistent with reversible defect of the anterior, anterolateral, septum and apical wall suggestive of ischemia.. NM/NM vi perf SPECT rest & str Impression: 1. Myocardial perfusion imaging study shows LAD territory ischemia 2. Gated LVEF is 30% 3. Transient ischemic dilatation present EKG is nondiagnostic for ischemia
--- NOTE | 2022-08-27 08:35 | CA_ITS ---
Acquisition Time: 2022-08-27 08:53:48 Total Exercise Time: 00:02:00 Test Indications: LBBB, DIZZINESS, SOB Medications: SEE CHART Protocol: LEXISCAN Max HR: 115 BPM 67% of Pred: 170 BPM Max BP: 142/076 mmHG Max Work Load: 1.0 METS Pharmacological stress test with Lexiscan injection, while sitting, without anginal symptoms, without arrythmia, with normotensive response to injection, with nondiagnostic EKG for ischemia due to LBBB. In recovery she reported feeling strange and was treated with Aminophylline 75mg IVP to reverse Lexiscan with resolution of symptom. Nuclear images pending. Test reviewed with Dr Darling Referred By: Jonah Darling Overread By: HORACE MIRELES
== END ==
LOC: HO.CARD 08:32
PROVIDERS: PCP Nurse Practitioner Family; Visit Provider Internal Medicine
DX: I42.8 Other cardiomyopathies (principal)
CPT/HCPCS: 78452; 93017; A9500; J0280; J2785

== ENCOUNTER 2022-08-28 10:31 | Outpatient (REF) | payer MEDICARE, MEDICAID, SELFPAY ==
--- NOTE | ~2022-08-28 | MM_ITS ---
EXAMINATION: MM DIAGNOSTIC DIGITAL BREAST TOMOSYNTHESIS, BILATERAL CLINICAL INFORMATION: Left breast pain postsurgery. Left breast lumpectomy performed in February 2022. Chemotherapy and radiation therapy. COMPARISON: Mammography: 03/20/2022 and studies dating back to 04/04/2015. TECHNIQUE: Digital breast tomosynthesis is performed in both the craniocaudal and mediolateral oblique views along with computer-aided detection (CAD). Synthesized 2D images are generated from the tomosynthesis. Additional spot magnification views in craniocaudal and 90 degree mediolateral views performed. FINDINGS: The breasts are heterogeneously dense, which may obscure small masses (ACR BI-RADS breast composition Category c). There are postsurgical changes seen about the upper outer aspects of the left breast. There are calcifications present about the superior medial aspect of the left breast for which surgical consultation is recommended to discuss treatment plan. On the 90 degree mediolateral view they have a somewhat linear distribution. Just inferior and medial to this grouping of calcifications there is a tight grouping of microcalcifications without linear or branching forms, this lies approximately 1.2 cm distant to the other grouping of calcifications. There is a stable parenchymal pattern of the right breast with no new abnormal dominant mass or new suspicious grouping of microcalcifications. Results are discussed with the patient at time of visit. MM/MM tomosynthesis diagnostic BI IMPRESSION: Left breast calcifications for which surgical consultation is recommended. ASSESSMENT: BI-RADS 4: Suspicious RECOMMENDATION: Surgical consultation. This patient's information was entered into a reminder system with a target due date for their next mammogram. Recommendations were called to referring provider's office by mammography Center forestry workers. I am attempting to discuss case with referring physician when he is out of the operating room.
== END 2022-08-28 10:32 | disposition home or self-care (01) ==
LOC: HO.MAMMO 10:31
PROVIDERS: PCP General Practice; Visit Provider Surgery
DX: N64.4 Mastodynia (principal); C50.912 Malignant neoplasm of unspecified site of left female breast; Z79.899 Other long term (current) drug therapy; Z98.890 Other specified postprocedural states
CPT/HCPCS: 77062; 77066

== ENCOUNTER 2022-08-30 08:24 | Outpatient (REF) | payer MEDICARE, MEDICAID, SELFPAY ==
--- NOTE | ~2022-08-30 | US_ITS ---
EXAMINATION: US DIAGNOSTIC ULTRASOUND BREAST, LEFT CLINICAL INFORMATION: Left breast pain. History IDC left breast status post lumpectomy 03/20/2022 followed by RT. Surgical resection margins negative. COMPARISON: Mammography 08/28/2022. TECHNIQUE: Ultrasound of the left breast is performed with real-time light scale imaging and color Doppler. Ultrasound is targeted to the areas of clinical concern including retroareolar region and 3:00 left breast. FINDINGS: There is no focal suspicious finding. There is no solid mass, architectural abnormality, duct ectasia, or edema in the soft tissue planes. Results are discussed with the patient at time of visit. Patient has upcoming appointment with Dr. Munoz. US/US breast LT limited IMPRESSION: -Unremarkable left breast ultrasound. ASSESSMENT: BI-RADS 1: Negative RECOMMENDATION: 1. Patient's breast pain should be managed based on the clinical impression. 2. Patient to follow-up with surgeon as planned.
== END 2022-08-30 08:25 | disposition home or self-care (01) ==
LOC: HO.MAMMO 08:24
PROVIDERS: PCP General Practice; Visit Provider Surgery
DX: R92.8 Other abnormal and inconclusive findings on diagnostic imaging of breast (principal)
CPT/HCPCS: 76642

== ENCOUNTER 2022-09-02 11:10 | Outpatient (REF) | payer MEDICARE, MEDICAID, SELFPAY ==
[2022-09-02 11:27] LABS: MANUAL DIFF FLAG NO
[2022-09-02 11:56] LABS: Basophils Percent Auto 0.6 % (0-2); Eosinophils Absolute Auto 0.1 X10*3/uL (0.0-0.4); Eosinophils Percent Auto 1.9 % (0-4); Hematocrit 37.3 % (37.0-47.0); Hemoglobin 12.4 g/dl (12.0-16.0); Imm Gran Abs Auto 0.01 X10*3/uL (0.00-0.03); Imm Gran Pct Auto 0.2 % (0.0-0.4); Lymphocytes Absolute Auto 1.1 X10*3/uL (1.2-4.9); Lymphocytes Percent Auto 20.3 % (20-40); Mean Corpuscular HGB Conc 33.2 g/dl (31.0-35.0); Mean Corpuscular Hemoglobin 28.1 pg (27.0-33.0); Mean Corpuscular Volume 84.4 fL (80.0-98.0); Mean Platelet Volume 9.3 fL (9.4-12.3); Monocytes Absolute Auto 0.5 X10*3/uL (0.1-1.2); Monocytes Percent Auto 9.3 % (2-11); Neutrophils Absolute Auto 3.5 x10*3/uL (2.0-8.3); Neutrophils Percent Auto 67.7 % (45-73); Platelet Count 327 X10*3/uL (160-400); Red Blood Count 4.42 X10*6/uL (4.20-5.50); Red Cell Distribution Width 13.3 % (11.0-16.0); White Blood Count 5.2 X10*3/uL (4.8-10.8)
[2022-09-02 12:25] LABS: Alanine Aminotransferase 22 U/L (0-31); Albumin Level 4.1 g/dL (3.5-5.0); Alkaline Phosphatase 114 U/L (39-117); Anion Gap 15 (12-20); Aspartate Amino Transferase 19 U/L (5-31); Bilirubin Total 0.5 mg/dL (0.0-1.0); Blood Urea Nitrogen 17 mg/dL (9-16); Calcium 9.5 mg/dL (8.4-10.2); Carbon Dioxide 23 mmol/L (22-29); Chloride 108 mmol/L (96-108); Estimated Glomerular Filt Rate > 60; Glucose Random 97 mg/dL (60-115); Potassium 4.1 mmol/L (3.3-5.1); Sodium 142 mmol/L (135-145); Total Protein 7.3 g/dL (6.5-8.0)
[2022-09-02 12:33] LABS: B Type Natriuretic Peptide 30 pg/mL (<100)
[2022-09-02 12:35] LABS: Prothrombin Time 11.5 SEC (10.0-13.1)
[2022-09-02 12:49] LABS: Vitamin D 25-OH Total 47.8 ng/mL (>30)
== END 2022-09-02 11:11 | disposition home or self-care (01) ==
LOC: HO.LAB 11:10
PROVIDERS: Internal Medicine; PCP General Practice; Visit Provider Internal Medicine
DX: C50.912 Malignant neoplasm of unspecified site of left female breast (principal); I44.7 Left bundle-branch block, unspecified; I42.8 Other cardiomyopathies
CPT/HCPCS: 36415; 80053; 82306; 83880; 85025; 85610

== ENCOUNTER → 2022-10-08 09:54 | Outpatient (BNVA) | payer MEDICARE, MEDICAID, SELFPAY | PROVIDERS: PCP General Practice; Visit Provider Surgery | DX: R92.8 Other abnormal and inconclusive findings on diagnostic imaging of breast (principal); D05.12 Intraductal carcinoma in situ of left breast; Z17.0 Estrogen receptor positive status [ER+]; Z92.3 Personal history of irradiation | CPT/HCPCS: 99212 ==

== ENCOUNTER 2022-10-10 09:18 | Outpatient (REF) | payer MEDICARE, MEDICAID, SELFPAY ==
--- NOTE | ~2022-10-10 | MM_ITS ---
EXAMINATION: STEREOTACTIC TOMOSYNTHESIS-GUIDED VACUUM-ASSISTED BREAST BIOPSY, LEFT SPECIMEN RADIOGRAPH, LEFT POST PROCEDURE DIGITAL MAMMOGRAM, LEFT CLINICAL INFORMATION: Calcifications central upper breast for stereotactic sampling. Status post lumpectomy upper outer quadrant 4 invasive ductal cancer 03/20/2022. COMPARISON: Mammography 08/28/2022, 03/20/2022, 03/07/2022. TECHNIQUE/PROCEDURE: Informed consent was obtained from the patient after discussion of the benefits, risks, and alternatives to biopsy today. Patient appeared to understand. Gave opportunity for questions. Patient signed consent form. BIOPSY TABLE: [employer] Affirm Prone Biopsy System. LESION: Loosely grouped calcifications mid central upper left breast. LOCAL ANESTHESIA: 10 mL carbonated 1% lidocaine; 10 mL 1% lidocaine with epinephrine. DERMATOTOMY: Single skin don dermatotomy performed. NEEDLE: [employer] Eviva 9-gauge vacuum assisted core biopsy device. APPROACH: Craniocaudal. TARGETING: Combination of digital breast tomosynthesis and stereotactic digital mammography used for targeting. CORES: 6. CLIP: [place] Cylinder-shaped marker. SPECIMEN RADIOGRAPH: Specimen radiograph is taken in separate room using digital mammography. The index calcifications are in the excised cores. There are over 8 calcifications in the cores. POST PROCEDURE UNILATERAL DIGITAL MAMMOGRAM: The post biopsy mammogram is performed in separate room using separate digital mammography equipment from the biopsy procedure. CC and ML views are obtained. There are scattered areas of fibroglandular density (breast composition category: b). The clip marker is in position. The calcifications are markedly decreased at the biopsy site. No gross hematoma. The patient tolerated the procedure well. No immediate complications. Home instructions reviewed with the patient. Final pathology results are pending. MM/MM stereotactic biopsy LT IMPRESSION: 1. Digital tomosynthesis-guided core biopsy left breast with clip placement. 2. Specimen radiograph taken and post procedure mammogram. There is satisfactory positioning of the biopsy clip. 3. Final pathology results pending. An addendum report will be issued.
[2022-10-10] MEDS: Lidocaine HCl 1 % 20 ML VIAL 10 ML SUBCUT (10:35)
[2022-10-10] MEDS: Sodium Bicarbonate 8.4% 50 MEQ/50 ML VIAL SUBCUT (10:36)
[2022-10-10] MEDS: Lidocaine HCl 1% PF/Epi 1:200,000 30 ML VIAL 10 ML SUBCUT (10:38)
== END 2022-10-10 09:19 | disposition home or self-care (01) ==
LOC: HO.MAMMO 09:18
PROVIDERS: PCP General Practice; Visit Provider Surgery
DX: R92.8 Other abnormal and inconclusive findings on diagnostic imaging of breast (principal)
CPT/HCPCS: 19081; 88305; A4648

== ENCOUNTER 2022-10-14 11:51 | Outpatient (REF) | payer MEDICARE, MEDICAID, SELFPAY ==
[2022-10-14 12:08] LABS: MANUAL DIFF FLAG NO
[2022-10-14 12:28] LABS: Basophils Percent Auto 0.7 % (0-2); Eosinophils Absolute Auto 0.1 X10*3/uL (0.0-0.4); Eosinophils Percent Auto 1.1 % (0-4); Hematocrit 38.9 % (37.0-47.0); Imm Gran Abs Auto 0.03 X10*3/uL (0.00-0.03); Imm Gran Pct Auto 0.6 % (0.0-0.4); Lymphocytes Absolute Auto 1.2 X10*3/uL (1.2-4.9); Mean Corpuscular HGB Conc 33.4 g/dl (31.0-35.0); Mean Corpuscular Hemoglobin 27.7 pg (27.0-33.0); Mean Corpuscular Volume 82.8 fL (80.0-98.0); Mean Platelet Volume 8.9 fL (9.4-12.3); Monocytes Absolute Auto 0.5 X10*3/uL (0.1-1.2); Monocytes Percent Auto 8.5 % (2-11); Neutrophils Absolute Auto 3.6 x10*3/uL (2.0-8.3); Neutrophils Percent Auto 67.1 % (45-73); Platelet Count 336 X10*3/uL (160-400); Red Cell Distribution Width 13.2 % (11.0-16.0); White Blood Count 5.4 X10*3/uL (4.8-10.8)
[2022-10-14 12:35] LABS: Prothrombin Time 11.7 SEC (10.0-13.1)
[2022-10-14 12:49] LABS: Anion Gap 14 (12-20); Blood Urea Nitrogen 17 mg/dL (9-16); Calcium 10.4 mg/dL (8.4-10.2); Carbon Dioxide 29 mmol/L (22-29); Chloride 101 mmol/L (96-108); Estimated Glomerular Filt Rate > 60; Glucose Random 106 mg/dL (60-115); Potassium 4.2 mmol/L (3.3-5.1); Sodium 140 mmol/L (135-145)
== END 2022-10-14 11:52 | disposition home or self-care (01) ==
LOC: HO.LAB 11:51
PROVIDERS: PCP General Practice; Visit Provider Internal Medicine
DX: Z01.810 Encounter for preprocedural cardiovascular examination (principal); I42.8 Other cardiomyopathies
CPT/HCPCS: 36415; 80048; 85025; 85610

== ENCOUNTER → 2022-10-17 11:22 | Outpatient (BNVA) | payer MEDICARE, MEDICAID, SELFPAY | PROVIDERS: PCP General Practice; Visit Provider Physician Assistant Surgical | DX: R92.8 Other abnormal and inconclusive findings on diagnostic imaging of breast (principal) | CPT/HCPCS: 99212 ==

== ENCOUNTER → 2022-10-30 12:20 | Outpatient (BNVA) | payer MEDICARE, MEDICAID, SELFPAY | PROVIDERS: PCP General Practice; Referring Provider General Practice; Visit Provider Nurse Practitioner Family | DX: I44.7 Left bundle-branch block, unspecified (principal); I42.8 Other cardiomyopathies; I10 Essential (primary) hypertension; Z98.890 Other specified postprocedural states | CPT/HCPCS: 99212 ==

== ENCOUNTER 2022-11-27 13:37 | Outpatient (REF) | payer MEDICARE, MEDICAID, SELFPAY ==
--- NOTE | ~2022-11-27 | XR_ITS ---
EXAMINATION: XR SHOULDER, LEFT CLINICAL INFORMATION: Pain. COMPARISON: None TECHNIQUE: AP external rotation, Grashey, scapular Y, and axillary views of the left shoulder. FINDINGS: The bones and soft tissues are normal. No fracture. Glenohumeral and acromioclavicular alignment is anatomic with normal joint space. No abnormal soft tissue calcifications. XR/XR shoulder LT min 2V IMPRESSION: Normal left shoulder.
--- NOTE | ~2022-11-27 | XR_ITS ---
EXAMINATION: XR ELBOW, RIGHT CLINICAL INFORMATION: Pain. COMPARISON: Radiographs dated 06/13/2021. TECHNIQUE: AP, lateral, and oblique views of the right elbow. FINDINGS: The bones and soft tissues are normal. No fracture or joint effusion. Alignment is anatomic. Joint spaces are maintained. XR/XR elbow RT min 3V IMPRESSION: Normal right elbow.
--- NOTE | ~2022-11-27 | US_ITS ---
EXAMINATION: US VENOUS WITH DOPPLER UPPER EXTREMITY, LEFT CLINICAL INFORMATION: Left arm pain with question of DVT COMPARISON: None TECHNIQUE: Ultrasound of the upper extremity is performed using compression sonography and color and pulse Doppler flow with assessment of augmentation of flow. There is also imaging and Doppler assessment of the jugular and subclavian veins. Spectral analysis with color-flow imaging is performed. FINDINGS: Respiratory variation, normal compression, and augmented flow are noted throughout the upper extremity including the axillary and brachial veins. There is normal flow in the internal jugular and subclavian veins. The veins of the forearm were not examined. There is no visible deep or superficial thrombophlebitis. If the patient's symptoms progress, a followup ultrasound in 5 -7 days might be of value to exclude proximal propagation from a nonvisualized distal arm vein. US/US venous duplex UE LT IMPRESSION: No DVT demonstrated in the left upper extremity.
[2022-11-27 15:07] LABS: Uric Acid 3.8 mg/dL (2.4-5.7)
[2022-11-29 08:29] LABS: Lyme Abs Screen <0.90 index
== END 2022-11-27 13:38 | disposition home or self-care (01) ==
LOC: HO.US 13:37
PROVIDERS: PCP General Practice; Visit Provider Emergency Medicine
DX: M79.602 Pain in left arm (principal); M25.512 Pain in left shoulder; M25.521 Pain in right elbow
CPT/HCPCS: 36415; 73030; 73080; 84550; 86617; 86618; 93971

== ENCOUNTER → 2022-12-18 11:05 | Outpatient (BNVA) | payer MEDICARE, MEDICAID, SELFPAY | PROVIDERS: PCP General Practice; Visit Provider Physician Assistant | DX: M77.11 Lateral epicondylitis, right elbow (principal) | CPT/HCPCS: 99212 ==

== ENCOUNTER → 2023-02-19 14:49 | Outpatient (BNVA) | payer MEDICARE, MEDICAID, SELFPAY | PROVIDERS: PCP General Practice; Referring Provider General Practice; Visit Provider Internal Medicine | DX: I42.8 Other cardiomyopathies (principal); I44.7 Left bundle-branch block, unspecified | CPT/HCPCS: 99212 ==

== ENCOUNTER → 2023-04-30 10:51 | Outpatient (REF) | payer MEDICARE, MEDICAID, SELFPAY | LOC: HO.CARD 10:51 | PROVIDERS: PCP General Practice; Visit Provider Internal Medicine | DX: I42.8 Other cardiomyopathies (principal) | CPT/HCPCS: 93306 ==

== ENCOUNTER 2023-05-20 09:38 | Outpatient (AMB) | payer SELFPAY ==
[2023-05-20 10:03] VITALS: BP 110/80; PULSE 84; BMI 33.3
--- NOTE | 2023-05-20 10:03 | A.OFFVIS_ITS ---
Intake Vital Signs 05/20/23 10:03 Height 4 ft 11 in Weight 164 lb 14.492 oz BMI 33.3 BP 110/80 Blood Pressure Location Lt brachial Position Sitting Pulse 84 Intake Visit Reasons: 3 mth f/up s/p echo Intake Note: 3 month follow up Chief Knowledge Officer Required: No Accompanied by: Self / Same As Patient Allergies lisinopril Allergy (Verified 05/20/23 10:05) Cough Medication List - Last Reconciled 05/20/23 by Jonah Darling MD acetaminophen (Tylenol Extra Strength) 500 mg PO Q6H PRN albuterol sulfate 90 mcg/actuation (ProAir HFA) 1 inh inhalation QID atorvastatin 80 mg PO DAILY cholecalciferol (vitamin D3) (Vitamin D3) 50 mcg PO QAM ferrous sulfate (FeroSul) 325 mg PO Q OTHER DAY furosemide (Lasix) 20 mg PO DAILY gabapentin 300 mg PO TID losartan 50 mg PO DAILY 90 days metoprolol succinate ER 25 mg PO QAM pantoprazole 40 mg PO DAILY umeclidinium 62.5 mcg/actuation (Incruse Ellipta) 1 inh inhalation DAILY HPI HPI Comments History of Present Illness Details Renita returns for follow-up regarding cardiomyopathy as well as left bundle-branch block. 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 Was on anti-coagulation, but then stopped. Otherwise, she has history of breast cancer and underwent surgery and radiation. From cardiac feels short of breath with activity. Lot of tiredness/fatigue. Frequently dizzy, but not clear if that is related to the vertebral dissection. [facility] Medical History (Updated 12/18/22 @ 11:42 by Gabi Vásquez) Anemia Bipolar 1 disorder COPD (chronic obstructive pulmonary disease) Hypercholesteremia Hypertension Surgical History History of hysterectomy (03/01/22) History of left breast biopsy History of lumpectomy of left breast (03/20/22) Hx of foot surgery Family History Maternal Aunt Lupus Mother Breast cancer Social History Household Members: None Housing: Apartment Are you a primary care manager cna to a significant other at home: No Do you presently have visiting nurse or other home services: No Alcohol intake: never Patient Tobacco Use Status: Former Tobacco user Quit Date: 8 yrs ago Tobacco use type: Cigarette service: No 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al status: disabled 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 Female Reproductive History Menstrual Age of Menarche: 12 Review of Systems Const Denies weakness ENT Denies dizziness Card Denies chest pain, Denies chest pain with activity, Denies syncope, Denies rapid heart rate, Denies pedal edema, Denies edema, Denies leg edema, Denies lightheadedness, Denies palpitations, Denies dyspnea, Denies dyspnea on exertion and Denies orthopnea Resp Denies cough, Denies dyspnea and Denies dyspnea on exertion GI Denies hematochezia and Denies change in stool character Musc Denies abnormal gait, Denies muscle cramps, Denies muscle weakness, Denies numbness, Denies radiating pain into limb and Denies tingling Neuro Denies abnormal gait, Denies dizziness, Denies syncope, Denies numbness, Denies tingling and Denies weakness Endo Denies palpitations Physical Exam Vital Signs: Last Vital Signs Pulse 84 05/20/23 10:03 BP 110/80 05/20/23 10:03 BMI result Body Mass Index 33.3 Const General: comfortable and no acute distress Orientation/consciousness: patient oriented x3 HEENT Other: Unremarkable Head: Yes normal to inspection Neck Neck: Yes normal visual inspection Chest Chest palpation & inspection: normal inspection of the chest Resp Auscultation: clear to auscultation bilaterally Cardio Palpation: normal PMI Heart sounds: S1 normal heart sound present, S2 normal heart sound present, no gallops, no murmurs and no rubs GI Palpation (GI): Soft to palpation Back/Spine/Pelvis Other: unremarkable Skin General skin exam: no rashes or lesions noted Neuro General: patient oriented x3 Extrem General: Yes normal to inspection Psych Mental Status: mental status grossly normal Assessment & Plan Assessment & Plan (1) NICM (nonischemic cardiomyopathy): Code(s): I42.8 - Other cardiomyopathies (2) LBBB (left bundle branch block): Code(s): I44.7 - Left bundle-branch block, unspecified Plan Cardiac studies reviewed. EKG shows sinus rhythm with left bundle-branch block. Echocardiogram from this month with LVEF 32%. In 2021, with LVEF of 35-40%. In 2017, it was 45-50%. Cardiac catheterization shows normal coronary arteries. Overall, she has got nonischemic cardiomyopathy related to left bundle-branch block. Clinically, various symptoms including fatigue, tiredness, shortness of breath, dizziness. Some of this probably from cardiomyopathy at and others seem nonspecific and possibly from the vertebral dissection. As she is already feeling dizzy, not making any medication changes. May remain on long-acting beta-blockers and losartan as before. She is also on some diuretics. Otherwise, blood pressure seems stable. Considering the fact that she has cardiomyopathy as well as left bundle-branch block, we discussed about Bi V ICD. Gave her some brochures to review. She will think about it. If she agrees, we will refer her to [facility]. Coding Level of Care Code Est Pt Level 4 (75476) Diagnoses NICM (nonischemic cardiomyopathy) I42.8 LBBB (left bundle branch block) I44.7
== END 2023-05-20 10:45 | disposition home or self-care (01) ==
PROVIDERS: Visit Provider Internal Medicine
DX: I42.8 Other cardiomyopathies (principal); I44.7 Left bundle-branch block, unspecified
CPT/HCPCS: 99214

== ENCOUNTER → 2023-05-20 09:38 | Outpatient (BNVA) | payer MEDICARE, MEDICAID, SELFPAY | PROVIDERS: Visit Provider Internal Medicine | DX: I42.8 Other cardiomyopathies (principal); I44.7 Left bundle-branch block, unspecified; Z87.891 Personal history of nicotine dependence | CPT/HCPCS: 99212 ==

== ENCOUNTER 2023-05-23 19:33 | Outpatient (REF) | payer MEDICARE, MEDICAID, SELFPAY ==
[2023-05-24 14:35] LABS: BV Int Neg Control Negative (Negative); BV Int Pos Control Positive (Positive)
== END 2023-05-23 19:34 | disposition home or self-care (01) ==
LOC: HO.HHCLNP 19:33
PROVIDERS: Visit Provider Emergency Medicine
DX: N89.5 Stricture and atresia of vagina (principal)
CPT/HCPCS: 87480; 87510; 87660

== ENCOUNTER 2023-06-02 11:48 | Outpatient (REF) | payer OTHER, MEDICAID, SELFPAY ==
[2023-06-02 15:51] LABS: Thyroid Stimulating Hormone 1.54 uIU/mL (0.32-4.0)
== END 2023-06-02 11:49 | disposition home or self-care (01) ==
LOC: HO.HHCL 11:48
PROVIDERS: Visit Provider General Practice
DX: R49.0 Dysphonia (principal)
CPT/HCPCS: 36415; 84443

== ENCOUNTER 2023-07-14 10:35 | Outpatient (REF) | payer OTHER, SELFPAY ==
--- NOTE | ~2023-07-14 | MM_ITS ---
EXAMINATION: MM DIAGNOSTIC DIGITAL BREAST TOMOSYNTHESIS, BILATERAL CLINICAL INFORMATION: 1 year follow-up status post left breast lumpectomy for invasive ductal carcinoma, recent benign left stereotactic biopsy upper outer left breast middle one third 10/10/2022, and patient due for routine screening. COMPARISON: Mammography: 08/28/2022, 01/14/2022, 11/26/2021, 12/25/2017, and dating back to 2017. Stereotactic biopsy left breast 10/10/2022, and 03/07/2022. TECHNIQUE: Digital breast tomosynthesis is performed in both the craniocaudal and mediolateral oblique views along with computer-aided detection (CAD). Synthesized 2D images are generated from the tomosynthesis. In addition, a full-field left 3-D mediolateral projection was obtained, as well as 2-D left magnification CC and ML views. FINDINGS: There are scattered areas of fibroglandular density (ACR BI-RADS breast composition Category b). There are stable posttreatment changes in the upper outer left breast related to lumpectomy and radiation. No evidence of recurrence seen. There is a mini cork biopsy clip present in the upper inner left breast, with only a few tiny remaining surrounding punctate calcifications. No suspicious changes. The right breast demonstrates 3 stable oval small circumscribed nodules, presumably cysts, lymph nodes, or other benign entities, remaining unchanged from 11/26/2021. There are stable dermal calcifications in the far inferior slightly lateral right breast, and stable grouped dystrophic benign calcifications in the upper outer right breast, anterior one third. The parenchymal pattern of both breasts is unchanged from previous postoperative examinations. MM/MM tomosynthesis diagnostic BI IMPRESSION: Stable benign findings. No findings suspicious for malignancy. Recommend the patient continue diagnostic mammography in 12 months time. ASSESSMENT: BI-RADS BI-RADS 2 - Benign Findings RECOMMENDATION: 12 month diagnostic follow up Results were provided to the patient at time of visit by the technologist. This patient's information was entered into a reminder system with a target due date for their next mammogram.
== END 2023-07-14 10:36 | disposition home or self-care (01) ==
LOC: HO.MAMMO 10:35
PROVIDERS: PCP General Practice; Visit Provider Surgery
DX: Z98.890 Other specified postprocedural states (principal); Z85.3 Personal history of malignant neoplasm of breast
CPT/HCPCS: 77062; 77066

== ENCOUNTER → 2023-07-14 11:00 | Outpatient (BNV) | payer OTHER, SELFPAY | PROVIDERS: PCP General Practice; Visit Provider Radiology Diagnostic Radiology | DX: R92.8 Other abnormal and inconclusive findings on diagnostic imaging of breast (principal) | CPT/HCPCS: 77062; 77066 ==

== ENCOUNTER 2023-07-16 | Outpatient (REF) | payer OTHER, SELFPAY | END 2023-07-16 00:01 | disposition home or self-care (01) | LOC: CF | PROVIDERS: Visit Provider Nurse Practitioner Family | DX: J44.9 Chronic obstructive pulmonary disease, unspecified (principal); I42.8 Other cardiomyopathies; R06.09 Other forms of dyspnea; Z79.899 Other long term (current) drug therapy; Z87.891 Personal history of nicotine dependence | CPT/HCPCS: 94618; 99212 ==

== ENCOUNTER 2023-07-16 09:13 | Outpatient (AMB) | payer OTHER, SELFPAY ==
[2023-07-16 09:48] VITALS: BP 128/78; PULSE 76; O2SAT 96; BMI 33.1
--- NOTE | 2023-07-16 09:48 | MHC.OFFVIS ---
Intake Vital Signs 07/16/23 09:48 Height 4 ft 11 in Weight 164 lb BMI 33.1 BP 128/78 Blood Pressure Location Rt brachial Pulse 76 Pulse Source Pulse Oximeter Pulse Oximetry (%) 96 Oxygen Delivery Method Room Air Intake Visit Reasons: Shortness of breath Repairer Resistance Welding Machines Required: No Pathology Manager: Pathology Manager offered & declined Accompanied by: Self / Same As Patient Allergies lisinopril Allergy (Verified 07/16/23 09:56) Cough Medication List - Last Reconciled 07/16/23 by Kristin Putnam LPN acetaminophen (Tylenol Extra Strength) 500 mg PO Q6H PRN albuterol sulfate 90 mcg/actuation (ProAir HFA) 1 inh inhalation QID atorvastatin 80 mg PO DAILY cholecalciferol (vitamin D3) (Vitamin D3) 50 mcg PO QAM ferrous sulfate (FeroSul) 325 mg PO Q OTHER DAY furosemide (Lasix) 20 mg PO DAILY gabapentin 300 mg PO TID losartan 50 mg PO DAILY 90 days metoprolol succinate ER 25 mg PO QAM pantoprazole 40 mg PO DAILY umeclidinium 62.5 mcg/actuation (Incruse Ellipta) 1 inh inhalation DAILY HPI Shortness of breath HPI Details Renita is a very pleasant 52 year old female, former smoker with approximate 20 pack year history, quit 5 years ago, with underlying COPD, nonischemic cardiomyopathy related to left bundle-branch block LVEF 32% and breast cancer s/p surgery and radiation of left breast last year, under the care of Dr. Ken. On 07/24/23 she will have a pacer placed by Dr. Darling. She was referred for pulmonary evaluation for worsening dyspnea on minimal exertion that has progressively worsened over the past year. She also reports intermittent dry cough and wheeze. She reports suboptimal control on Incruse and developed hoarseness, so discontinued. She has an albuterol MDI which she uses infrequently. She had a recent evaluation at [facility] ED due to worsening shortness of breath and notes a chest CT was performed. This report is not available today. She denies any recent PFT. She denies childhood asthma. She denies any pertinent family history. She denies any occupational exposures. [facility] Medical History (Updated 07/18/23 @ 21:41 by Sandy Shah NP) Anemia COPD (chronic obstructive pulmonary disease) Hypercholesteremia Bipolar 1 disorder Hypertension Surgical History History of left breast biopsy History of lumpectomy of left breast (03/20/22) Hx of foot surgery History of hysterectomy (03/01/22) Family History Maternal Aunt Lupus Mother Breast cancer Social History (Updated 07/16/23 @ 10:02 by Kristin Putnam LPN) Household Members: None Housing: Apartment Are you a primary career and technology education teacher to a significant other at home: No Do you presently have visiting nurse or other home services: No Alcohol intake: never Patient Tobacco Use Status: Former Tobacco user Quit Date: 8 yrs ago Tobacco use type: Cigarette service: No 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al status: disabled 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 Female Reproductive History Menstrual Age of Menarche: 12 Review of Systems Const Denies chills, Denies excessive sweating, Denies fever(s), Denies headache(s) and Denies night sweats Eyes Denies dry eyes, Denies irritation and Denies itchy eyes ENT Reports Normal hearing present, Denies headache(s), Denies nasal congestion, Denies nasal discharge, Denies post nasal drip and Denies sore throat Card Denies chest pain, Denies chest pain at rest, Denies chest pain with activity, Denies claudication, Denies leg edema, Denies orthopnea and Denies paroxysmal nocturnal dyspnea Resp Denies chest congestion, Denies excessive phlegm production, Denies pain on inspiration, Denies pain with cough and Denies stridor Musc Denies myalgias Neuro Reports Normal hearing present and Denies headache(s) Endo Denies excessive sweating [place]/Lymph Denies lymphadenopathy Aller/Immun Denies itchy eyes and Denies seasonal rhinorrhea Physical Exam Vital Signs: Last Vital Signs Pulse 76 07/16/23 09:48 BP 128/78 07/16/23 09:48 Pulse Ox 96 07/16/23 09:48 Oxygen Delivery Method Room Air 07/16/23 09:48 BMI result Body Mass Index 33.1 Const General: cooperative, healthy appearing, comfortable, no acute distress, well developed and alert Nutritional Appearance: obese Orientation/consciousness: patient oriented x3 Limitations: no limitations HEENT Head: Yes normal to inspection, Yes normocephalic and Yes atraumatic Ears: hearing grossly normal bilaterally and external ears normal Eyes General: appearance normal, both eyes and all related structures Eyelids: Yes eyelids normal Sclerae: sclerae normal EOM: EOMs intact bilaterally Neck Neck: Yes normal visual inspection and Yes no lymphadenopathy Lymphatic: no lymphadenopathy noted Chest Chest palpation & inspection: normal inspection of the chest Resp Effort & Inspection: normal respiratory effort, able to speak in complete sentences, no audible wheezes, no cough, no stridor, not tachypneic, no tripod positioning and no use of accessory muscles Auscultation: clear to auscultation bilaterally Cardio Jugular venous distension: no JVD Rate: regular rate Rhythm: regular rhythm Skin Other: warm, dry General skin exam: no rashes or lesions noted Neuro General: patient oriented x3 Cranial nerves: Yes Normal hearing present Cognition (Neuro): normal cognition Gait exam (Neuro): Normal gait present Extrem General: Yes normal to inspection, Yes capillary refill normal, Yes no clubbing, cyanosis or edema and Yes no pedal edema Psych Appearance: grossly normal and well kempt Speech and movement: Normal speech and movement present and Clear speech present Affect: normal affect Attitude: cooperative Thought process: Normal thought process present Thought content: Normal thought content present Insight: Good insight present (Psych) Judgement: Good judgement present (Psych) Office Procedures 6 Minute Walk Time:: 10:35 SPO2 % at rest: 97 Pulse at rest: 80 SPO2 % during excercise: 96 Pulse during excercise: 84 SPO2 % after excercise: 97 Pulse after excercise: 75 Distance in yards walked: 1,200 Michele Score: 7 Performance Observations:: Patient was able to walk unassisted on level ground. O2 saturations maintained at 96% or greater. Patient reports increased respiratory effort anytime she walks and sometimes even at rest. No supplemental O2 needed. 6 Minute Walk (with oxygen) Michele Score:: 7 [id number] - 6 Minute Walk Results Reviewed Results Reviewed: [address] [address] Cardiology Report Signed Patient: Renita Haddad MR#: [id number] : 1970 Acct:[id number] Age/Sex: 52 / F ADM Date: 04/30/23 Loc: .[facility] Attending Dr: Jonah Darling MD Ordering Physician: Jonah Darling MD Date of Service: 04/30/23 Procedure(s): CA echo transthoracic complete Accession Number(s): cc: Jonah Darling MD~ Transthoracic Echocardiogram Patient (Last, First, Middle): Renita Haddad, Gender: Female Date of : 1970 Age: 52 Procedure Date: 04/30/2023 Procedure Type: Transthoracic Echocardiogram Location: OP Height: 149.86 cm Weight: 68.04 kg BSA: 1.63 m2 Heart Rate: 72 bpm BP: 115 / 75 mmHg Hog Killer: JOHN Referring MD: Jonah Darling MD Symptoms: I42.8 - Other cardiomyopathies Study Quality: Fair ECG Rhythm: Sinus Conclusions: - The left ventricular systolic function is moderately decreased. The calculated ejection fraction is 32% by biplane method. - No obvious valvular pathology seen on this study. Findings Left Ventricle Mildly increased left ventricular cavity size. There is mildly increased left ventricular wall thickness. The left ventricular systolic function is moderately decreased. The calculated ejection fraction is 32% by biplane method. There is paradoxical septal motion consistent with a left bundle branch block. Evidence suggests grade I (mild) diastolic dysfunction. Wall Motion Rest Echo Findings The basal inferior segment is akinetic. Right Ventricle Normal right ventricular cavity size and systolic function. Atria Both atria are normal in size. Aortic Valve The aortic valve was not well visualized. There is no aortic valve stenosis. There is no aortic valve regurgitation. Mitral Valve There is mild anterior and posterior mitral leaflet thickening. There is mild mitral valve regurgitation. There is no mitral valve stenosis. Pulmonic Valve The pulmonic valve is likely normal. Tricuspid Valve Normal tricuspid valve structure. There is trace tricuspid valve regurgitation. There is no evidence of pulmonary hypertension. Great Vessels The asc aorta is normal in size. Venous The inferior vena cava is normal in size and collapses greater than 50% with inspiration. Pericardium/Pleural There is no evidence of pericardial effusion. Prior Study Comparison No significant change compared to prior study dated: 07/11/2022. Recommendations, Care & Conclusions No obvious valvular pathology seen on this study. Measurements 2D Linear Measurements IVSd: 1.17 0.6-0.9/0.6-1.0 cm LVIDd: 5.66 3.9-5.3/4.2-5.9 cm LVIDd Index: 3.47 2.4-3.2/2.2-3.1 cm/m2 LVIDs: 4.42 2.0-3.6 cm LVPWd: 1.36 0.7-1.1 cm LA Diam: 4.00 2.7-3.8/3.0-4.0 cm LAIDs Index: 2.45 1.5-2.3 cm/m2 LV Mass: 382.75 67-162/88-224 g LV Mass Index: 234.82 43-95/49-115 g/m2 LVOT Diam: 2.00 3.0+(-)1.3 cm 2D Systolic Function EF 4C: 32.20 >55% EF 2C: 39.70 >55% EF BiP: 31.50 >55% Mitral Valve MV Pk E: 0.75 MV PK A: 1.01 MV Decel Time: 172.00 E/A: 0.70 E'Lateral: 5.44 E'Medial: 5.44 E/E' Med: 13.80 E/E' Lat: 13.80 PHT: 50.00 MVA PHT: 4.40 Decel [place]: 4.36 MR VTI: 1.69 Aortic Valve AoV Pk Stan[place]: 1.66 AoV Mn [place]: 1.16 AoV VTI: 0.32 AoV Pk Grad: 11.00 Aov Mn Grad: 6.00 WILDER Cont.VTI: 1.99 LVOT LVOT Pk [place]: 1.03 LVOT Mn [place]: 0.74 LVOT VTI: 0.20 LVOT Pk Grad: 4.00 LVOT Mn Grad: 3.00 LVOT Diam: 2.00 LVOT Area: 3.14 Diastolic Function MV Pk E: 0.75 MV Pk A: 1.01 E/A: 0.70 E'Medial: 5.44 E/E' Med: 13.80 E' Laterial: 5.44 E/E' Lat: 13.80 Right Ventricle TAPSE (mm): 34.30 TVS' Stan[place]: 11.00 Tricuspid Valve TR Pk [place]: 2.45 TR Pk Grad: 24.00 RA Press: 3.00 RVSP: 27.00 Great Vessels Aorta Sinus of Valsalva: 2.90 2.0-3.5 cm Ao Asc: 3.40 2.1-3.4 cm Pulmonary Valve PV Pk [place]: 1.29 Peak PV Grad: 7.00 Updated in Other Vendor System with Status of Final Jonah Darling MD electronically signed on 04/30/2023 12:46:19 PM with status of Final Dictated By: Jonah Darling MD Assessment & Plan Assessment & Plan (1) COPD (chronic obstructive pulmonary disease): Code(s): J44.9 - Chronic obstructive pulmonary disease, unspecified (2) Dyspnea on exertion: Code(s): R06.09 - Other forms of dyspnea (3) NICM (nonischemic cardiomyopathy): Code(s): I42.8 - Other cardiomyopathies Plan Renita's symptoms are likely multifactorial with contribution from pulmonary and cardiac etiologies. Will send for PFT to thoroughly evaluate and obtain recent chest CT from [facility]. 6MWT was performed and patient does not qualify for oxygen at this time. Will trial Bevespi in place of Incruse as she was not able to tolerate the dry powder. Will follow up to review results and response to inhaler or sooner if needed. All questions were answered and patient is in agreement of plan. Orders: Orders AMB 6 minute walk 07/16/23 J44.9 - Chronic obstructive pulmonary disease, unspecified PFT pulmonary function test Today J44.9 - Chronic obstructive pulmonary disease, unspecified Medications: New glycopyrrolate-formoterol 9-4.8 mcg (Bevespi Aerosphere) 2 puffs inhalation BID 1 ea 3RF Coding Level of Care Code New Pt Level 4 (21127) Diagnoses COPD (chronic obstructive pulmonary disease) J44.9 Dyspnea on exertion R06.09 NICM (nonischemic cardiomyopathy) I42.8 CPT Codes Coding ([id number])
[2023-07-16 11:09] VITALS: PULSE 80; O2SAT 97
== END 2023-07-16 10:52 | disposition home or self-care (01) ==
LOC: HO.HPSW 09:13
PROVIDERS: PCP General Practice; Referring Provider General Practice; Visit Provider Nurse Practitioner Family
DX: J44.9 Chronic obstructive pulmonary disease, unspecified (principal)
CPT/HCPCS: 94618; 99204

== ENCOUNTER 2023-08-25 | Outpatient (REF) | payer OTHER, SELFPAY | END 2023-08-25 00:01 | disposition home or self-care (01) | LOC: CF | PROVIDERS: PCP General Practice; Visit Provider Internal Medicine | DX: J44.9 Chronic obstructive pulmonary disease, unspecified (principal); I42.8 Other cardiomyopathies; I44.7 Left bundle-branch block, unspecified; Z95.810 Presence of automatic (implantable) cardiac defibrillator; Z79.899 Other long term (current) drug therapy | CPT/HCPCS: 93005; 99212 ==

== ENCOUNTER 2023-08-25 11:38 | Outpatient (AMB) | payer OTHER, MEDICAID, SELFPAY ==
[2023-08-25 12:32] VITALS: BP 118/82; PULSE 93; BMI 34.2
--- NOTE | 2023-08-25 12:32 | A.OFFVIS_ITS ---
Intake Vital Signs 08/25/23 12:32 Height 4 ft 11 in Weight 169 lb 5.04 oz BMI 34.2 BP 118/82 Blood Pressure Location Lt brachial Position Sitting Pulse 93 Intake Visit Reasons: 3 MON FUP Intake Note: 3 month follow up w/ EKG Field Placement Director Required: No Accompanied by: Self / Same As Patient Allergies lisinopril Allergy (Verified 08/25/23 12:34) Cough Medication List - Last Reconciled 08/25/23 by Jonah Darling MD acetaminophen (Tylenol Extra Strength) 500 mg PO Q6H PRN albuterol sulfate 90 mcg/actuation (ProAir HFA) 1 inh inhalation QID atorvastatin 80 mg PO DAILY cholecalciferol (vitamin D3) (Vitamin D3) 50 mcg PO QAM ferrous sulfate (FeroSul) 325 mg PO Q OTHER DAY furosemide (Lasix) 20 mg PO DAILY glycopyrrolate-formoterol 9-4.8 mcg (Bevespi Aerosphere) 2 puffs inhalation BID losartan 50 mg PO DAILY 90 days metoprolol succinate ER 25 mg PO QAM pantoprazole 40 mg PO DAILY umeclidinium 62.5 mcg/actuation (Incruse Ellipta) 1 inh inhalation DAILY HPI HPI Comments History of Present Illness Details Renita returns for follow-up regarding cardiomyopathy as well as left bundle-branch block. Few months back, had verterbral artery dissection and was admitted to [facility] and then sent to rehab. Was on anti-coagulation, but then stopped. Otherwise, she has history of breast cancer and underwent surgery and radiation. From the cardiac standpoint, she has cardiomyopathy and was complaining of shortness of breath with activity and tiredness/fatigue. Subsequently, underwent biventricular ICD placement. Some local discomfort but otherwise generally feels okay. COUNT INCLUDES THE [facility] Medical History (Updated 08/25/23 @ 13:20 by Jonah Darling MD) Cardiac resynchronization therapy defibrillator (ASSISTANT PROJECT MANAGER-D) in place Anemia COPD (chronic obstructive pulmonary disease) Hypercholesteremia Bipolar 1 disorder Hypertension Surgical History History of left breast biopsy History of lumpectomy of left breast (03/20/22) Hx of foot surgery History of hysterectomy (03/01/22) Family History Maternal Aunt Lupus Mother Breast cancer Social History (Updated 07/16/23 @ 10:02 by Kristin Putnam LPN) Household Members: None Housing: Apartment Are you a primary hospice care consultant to a significant other at home: No Do you presently have visiting nurse or other home services: No Alcohol intake: never Patient Tobacco Use Status: Former Tobacco user Quit Date: 8 yrs ago Tobacco use type: Cigarette service: No 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al status: disabled 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 Female Reproductive History Menstrual Age of Menarche: 12 Review of Systems Const Denies weakness ENT Denies dizziness Card Denies chest pain, Denies chest pain with activity, Denies syncope, Denies rapid heart rate, Denies pedal edema, Denies edema, Denies leg edema, Denies lightheadedness, Denies palpitations, Denies dyspnea, Denies dyspnea on exertion and Denies orthopnea Resp Denies cough, Denies dyspnea and Denies dyspnea on exertion GI Denies hematochezia and Denies change in stool character Musc Denies abnormal gait, Denies muscle cramps, Denies muscle weakness, Denies numbness, Denies radiating pain into limb and Denies tingling Neuro Denies abnormal gait, Denies dizziness, Denies syncope, Denies numbness, Denies tingling and Denies weakness Endo Denies palpitations Physical Exam Vital Signs: Last Vital Signs Pulse 93 08/25/23 12:32 BP 118/82 08/25/23 12:32 BMI result Body Mass Index 34.2 Const General: comfortable and no acute distress Orientation/consciousness: patient oriented x3 HEENT Other: Unremarkable Head: Yes normal to inspection Neck Neck: Yes normal visual inspection Chest Chest palpation & inspection: normal inspection of the chest Resp Auscultation: clear to auscultation bilaterally Cardio Palpation: normal PMI Heart sounds: S1 normal heart sound present, S2 normal heart sound present, no gallops, no murmurs and no rubs GI Palpation (GI): Soft to palpation Back/Spine/Pelvis Other: unremarkable Skin General skin exam: no rashes or lesions noted Neuro General: patient oriented x3 Extrem General: Yes normal to inspection Psych Mental Status: mental status grossly normal Office Procedures EKG Details: EKG shows atrial sensed, ventricular paced rhythm at 93/Min. [id number], Complete Assessment & Plan Assessment & Plan (1) NICM (nonischemic cardiomyopathy): Code(s): I42.8 - Other cardiomyopathies (2) LBBB (left bundle branch block): Code(s): I44.7 - Left bundle-branch block, unspecified (3) Cardiac resynchronization therapy defibrillator (ASSISTANT PROJECT MANAGER-D) in place: Code(s): Z95.810 - Presence of automatic (implantable) cardiac defibrillator Plan Recent echocardiogram with LVEF 32%. In 2021, with LVEF of 35-40%. In 2017, it was 45-50%. Cardiac catheterization shows normal coronary arteries. Overall, she has got nonischemic cardiomyopathy related to left bundle-branch block. For medications, she is on a combination of metoprolol ER and losartan. No overt fluid overload or cardiac decompensation. She is only on a very small dose of diuretic. Recently underwent ASSISTANT PROJECT MANAGER D placement. Will bring her back for formal device evaluation. She has a history of vertebral artery dissection and states unable to go to [facility], where she was initially seen. Hence may go to vascular at [place]. Coding Level of Care Code Est Pt Level 4 (88524) Diagnoses NICM (nonischemic cardiomyopathy) I42.8 LBBB (left bundle branch block) I44.7 Cardiac resynchronization therapy defibrillator (ASSISTANT PROJECT MANAGER-D) in place Z95.810 CPT Codes EKG - CPT: 12628-[id number], Complete ([id number])
== END 2023-08-25 12:52 | disposition home or self-care (01) ==
PROVIDERS: PCP General Practice; Visit Provider Internal Medicine
DX: I42.8 Other cardiomyopathies (principal); I44.7 Left bundle-branch block, unspecified; Z95.810 Presence of automatic (implantable) cardiac defibrillator
CPT/HCPCS: 93010; 99214

== ENCOUNTER → 2023-09-01 12:19 | Outpatient (BNVA) | payer OTHER, SELFPAY | PROVIDERS: PCP General Practice; Visit Provider Internal Medicine ==

== ENCOUNTER 2023-09-04 09:24 | Outpatient (REF) | payer OTHER, SELFPAY ==
--- NOTE | ~2023-09-04 | US_ITS ---
EXAMINATION: US EXTRACRANIAL CAROTID DUPLEX, BILATERAL CLINICAL INFORMATION: Dizziness COMPARISON: None available. TECHNIQUE: Real-time ultrasound and Doppler techniques (integrating B-mode 2-D vascular images, Doppler spectral analysis and color-flow Doppler imaging) were utilized to interrogate the extracranial carotid arteries, the vertebral arteries and proximal subclavian arteries bilaterally. The degree of stenosis is determined by criteria similar to NASCET. FINDINGS: Right Side: 1. There is severe atherosclerotic plaque seen in the bifurcation/proximal ICA region. 2. The common carotid artery PSV proximally is 77.7 cm/s and distally 49.4 cm/s. 3. The proximal internal carotid artery velocities are 130 cm/s systolic and 54.9 cm/s diastolic. 4. The proximal external carotid artery PSV is 146 cm/s. 5. The vertebral artery shows antegrade flow. 6. The subclavian artery waveforms are normal. Left Side: 1. There is moderate atherosclerotic plaque seen in the bifurcation/proximal ICA region. 2. The common carotid artery PSV proximally is 97.3 cm/s and distally 83.9 cm/s. 3. The proximal internal carotid artery velocities are 56.5 cm/s systolic and 22.4 cm/s diastolic. 4. The proximal external carotid artery PSV is 82.3 cm/s. 5. The vertebral artery shows antegrade flow. 6. The subclavian artery waveforms are normal. US/US carotid duplex BI IMPRESSION: 1. RIGHT: Moderate, hemodynamically significant stenosis of the proximal right internal carotid artery corresponding to a 50-79% stenosis by velocity criteria. 2. LEFT: Minimal, non-hemodynamically significant stenosis of the proximal left internal carotid artery corresponding to a 0-49% stenosis by velocity criteria.
== END 2023-09-04 09:25 | disposition home or self-care (01) ==
LOC: HO.US 09:24
PROVIDERS: PCP General Practice; Visit Provider Family Medicine
DX: R42 Dizziness and giddiness (principal)
CPT/HCPCS: 93880

== ENCOUNTER 2023-09-09 10:23 | Outpatient (AMB) | payer OTHER, SELFPAY ==
--- NOTE | 2023-09-09 10:25 | MHC.OFFVIS ---
Intake Vital Signs 09/09/23 10:29 Height 4 ft 11 in Weight 169 lb BMI 34.1 BP 128/88 Blood Pressure Location Rt brachial Intake Visit Reasons: carotid stenosis, Intake Note: Commercial Loan Assistant here for carotid stenosis Pt says that she has been suffering from headaches dizziness and ringing in her right ear for about a year now. Pt says that she takes medication to makes her urinate a lot but has not had a treatment for this issue Allergies lisinopril Allergy (Verified 09/09/23 10:29) Cough HPI carotid stenosis, HPI Details Very complex 53-year-old female presents for evaluation regarding carotid disease. Apparently in June of this year she had what appears to be near syncopal episode with dizziness and a headache. It had gone on for few days and she subsequently went to [facility]. At that time there was concern of a vertebral artery dissection. She was subsequently transferred to [facility]. According to her there was no intervention performed and we sent a was subsequently sent to rehab in [place]. She has had no other interval events of this. She reports she is doing fairly well. She has been following Cardiology regarding cardiomyopathy as well as a left bundle branch block. She underwent evaluation her carotids with ultrasound on September 04. She now presents to us for vascular evaluation. [facility] Medical History Invasive ductal carcinoma of left breast (~02/2022) Cardiac resynchronization therapy defibrillator (LAST SORTER-D) in place (~06/2023) NICM (nonischemic cardiomyopathy) LBBB (left bundle branch block) Hypertension Hypercholesteremia COPD (chronic obstructive pulmonary disease) Anemia Bipolar 1 disorder Surgical History History of cardiac defibrillator placement (~2022) History of cardiac cath (~2021) History of left breast biopsy (~2021) History of lumpectomy of left breast (~2021) History of hysterectomy (~2021) History of foot surgery (~2006) Family History Maternal Aunt Lupus Mother Breast cancer Social History Household Members: None Housing: Apartment Are you a primary child day care center worker to a significant other at home: No Do you presently have visiting nurse or other home services: No Alcohol intake: never Patient Tobacco Use Status: Former Tobacco user Quit Date: 8 yrs ago Tobacco use type: Cigarette service: No 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al status: disabled 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 Female Reproductive History Menstrual Age of Menarche: 12 Review of Systems Const All systems reviewed & are unremarkable except as noted in HPI and below Reports no additional complaints ENT Reports Normal hearing present Card Denies chest pain, Denies chest pain at rest, Denies chest pain with activity and Denies pedal edema Resp Denies cough GI Denies abdominal pain Musc Denies abnormal gait, Denies muscle cramps and Denies radiating pain into limb Skin/Breast Denies skin ulcer and Denies wounds Neuro Reports Normal hearing present and Denies abnormal gait Psych Reports no additional complaints Physical Exam Vital Signs: Last Vital Signs BP 128/88 09/09/23 10:29 BMI result Body Mass Index 34.1 Const General: cooperative, healthy appearing and comfortable Orientation/consciousness: oriented to person, oriented to place and oriented to time HEENT Head: Yes normal to inspection Neck Neck: Yes normal visual inspection Carotids: no bruits Chest Chest palpation & inspection: normal inspection of the chest Resp Effort & Inspection: normal respiratory effort and able to speak in complete sentences Auscultation: clear to auscultation bilaterally, no crackles, no rales, no rhonchi and no wheezes Cardio Rate: regular rate Rhythm: regular rhythm Heart sounds: S1 normal heart sound present and S2 normal heart sound present Bruits: no carotid bruits Peripheral pulses: Peripheral pulses 2+ throughout GI Inspection: Yes normal to inspection Skin Wounds: no wounds Hair: normal Neuro General: oriented to person, oriented to place and oriented to time Cranial nerves: Yes CN's II-XII intact bilaterally and Yes Normal hearing present Cognition (Neuro): normal cognition Motor exam (neuro): 5/5 motor strength present throughout Extrem Other: venous exam: No significant superficial varicosities or spider telangiectasias, minimal edema General: No clubbing, No cyanosis and No edema Psych Appearance: grossly normal Mental Status: mental status grossly normal Speech and movement: Normal speech and movement present Results Reviewed Results Reviewed: Noninvasive carotid testing dated 09/04/2023 demonstrates right-sided stenosis of 50-79% with a peak systolic of 130 and left-sided stenosis 0-49. Both vertebrals with antegrade flow. Written report and images were reviewed. Assessment & Plan Assessment & Plan (1) Bilateral carotid artery stenosis: Code(s): I65.23 - Occlusion and stenosis of bilateral carotid arteries Plan: In short her carotids appear within normal limits. Her right-sided slightly elevated velocities of 130 but I would estimate that it is closer to the 50% side. We did discuss risk factor modification I did reassure her that no surgery was indicated. She will require 6 month surveillance follow-up. That being said I do believe she may have some neurologic symptoms. She may benefit from a neurology evaluation should her headaches and dizziness persist. Once again she will follow up with us in 6 months. (2) Pulsatile tinnitus of right ear: Code(s): H93.A1 - Pulsatile tinnitus, right ear Plan: She does describe right ear pulsatile tinnitus. She has occasional sounds in her ear throughout the day. Should symptoms persist there is any ENT Clinic at [facility] that specifically addresses this. I would began with a neurologic evaluation. Once again she will be seeing us in 6 months regarding her carotids. Thank you for allowing us to assist in her care. Orders: Orders US carotid duplex BI 6 Months I65.23 - Occlusion and stenosis of bilateral carotid arteries Coding Level of Care Code New Pt Level 4 (91275) Diagnoses Bilateral carotid artery stenosis I65.23 Pulsatile tinnitus of right ear H93.A1
[2023-09-09 10:29] VITALS: BP 128/88; BMI 34.1
== END 2023-09-09 10:49 | disposition home or self-care (01) ==
PROVIDERS: PCP General Practice; Visit Provider Surgery Vascular Surgery
DX: I65.23 Occlusion and stenosis of bilateral carotid arteries (principal); H93.A1 Pulsatile tinnitus, right ear
CPT/HCPCS: 99204

== ENCOUNTER → 2023-09-09 10:23 | Outpatient (BNVA) | payer OTHER, SELFPAY | PROVIDERS: PCP General Practice; Visit Provider Surgery Vascular Surgery | DX: I65.23 Occlusion and stenosis of bilateral carotid arteries (principal); H93.A1 Pulsatile tinnitus, right ear | CPT/HCPCS: 99202 ==

== ENCOUNTER → 2023-09-18 23:59 | Outpatient (BNV) | payer OTHER, SELFPAY ==
--- NOTE | 2023-09-23 14:41 | MHC.OFFVIS ---
Intake Intake Visit Reasons: Remote ICD Check- [facility] Allergies lisinopril Allergy (Verified 09/09/23 10:29) Cough PFSH Medical History Invasive ductal carcinoma of left breast (~02/2022) Cardiac resynchronization therapy defibrillator (CARTON AND CAN SUPPLY SUPERVISOR-D) in place (~06/2023) NICM (nonischemic cardiomyopathy) LBBB (left bundle branch block) Hypertension Hypercholesteremia COPD (chronic obstructive pulmonary disease) Anemia Bipolar 1 disorder Surgical History History of cardiac defibrillator placement (~2022) History of cardiac cath (~2021) History of left breast biopsy (~2021) History of lumpectomy of left breast (~2021) History of hysterectomy (~2021) History of foot surgery (~2006) Family History Maternal Aunt Lupus Mother Breast cancer Social History Household Members: None Housing: Apartment Are you a primary md do resident urgent care to a significant other at home: No Do you presently have visiting nurse or other home services: No Alcohol intake: never Patient Tobacco Use Status: Former Tobacco user Quit Date: 8 yrs ago Tobacco use type: Cigarette service: No 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al status: disabled 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 [id number] Cardiac Interrogation, implant defibrillator w/interim Procedure code (CPT) selection complete Assessment & Plan Assessment & Plan (1) NICM (nonischemic cardiomyopathy): Code(s): I42.8 - Other cardiomyopathies Coding Level of Care Code Procedure Only Diagnoses NICM (nonischemic cardiomyopathy) I42.8 CPT Codes Cardiac Device Check - Cardiac Device 13: [id number] Cardiac Interrogation, implant defibrillator w/interim ([id number])
== END ==
PROVIDERS: PCP General Practice; Visit Provider Internal Medicine
DX: I42.8 Other cardiomyopathies (principal); Z95.810 Presence of automatic (implantable) cardiac defibrillator
CPT/HCPCS: 93295

== ENCOUNTER 2023-10-03 15:34 | Emergency (ER) | payer OTHER, SELFPAY ==
--- NOTE | ~2023-10-03 | XR_ITS ---
EXAMINATION: XR CHEST CLINICAL INFORMATION: Pain. COMPARISON: Chest radiograph 12/21/2020. TECHNIQUE: 2 views of the chest were obtained. FINDINGS: Left-sided pacer/AICD with leads projecting over the right atrium, right ventricle and coronary sinus. Normal appearance of the cardiomediastinal silhouette. No focal airspace opacity, pleural effusion or pneumothorax. No acute osseous findings. Visualized upper abdomen is within normal limits. XR/XR chest 2V IMPRESSION: No acute cardiopulmonary findings.
[2023-10-03 16:04] VITALS: BP 143/69; PULSE 84; RESP 18; TEMP 36; O2SAT 97; BMI 30.3
--- NOTE | 2023-10-03 16:05 | ED_ITS ---
HPI - General Adult General Chief complaint: Chest Pain Stated complaint: sob, discomfort in chest Related Data Home Medications Medication Instructions Recorded Confirmed albuterol sulfate 90 mcg/actuation 1 inh inhalation QID 08/03/21 12/16/23 aerosol inhaler (ProAir HFA) atorvastatin 80 mg tablet 80 mg PO DAILY 07/30/22 12/16/23 ferrous sulfate 325 mg (65 mg 325 mg PO Q OTHER DAY 07/30/22 12/16/23 iron) tablet (FeroSul) pantoprazole 40 mg tablet,delayed 40 mg PO DAILY 07/30/22 12/16/23 release cholecalciferol (vitamin D3) 50 50 mcg PO QAM 10/30/22 12/16/23 mcg (2,000 unit) capsule (Vitamin D3) Previous Rx's Medication Instructions Recorded acetaminophen 500 mg tablet 500 mg PO Q6H PRN fever or pain 07/30/22 (Tylenol Extra Strength) #14 tabs furosemide 20 mg tablet (Lasix) 20 mg PO DAILY #30 tabs 07/30/22 metoprolol succinate 25 mg 25 mg PO QAM #90 tabs 05/19/23 tablet,extended release 24 hr ipratropium 0.5 mg-albuterol 3 mg 3 ml inhalation Q6H PRN wheezing 10/15/23 (2.5 mg base)/3 mL nebulization #90 mL soln umeclidinium 62.5 mcg-vilanterol 1 inh inhalation DAILY #60 ea 10/31/23 25 mcg/actuation powdr for inhalation (Anoro Ellipta) losartan 25 mg tablet 25 mg PO DAILY #90 tabs 12/08/23 budesonide-formoterol HFA 160 2 puff inhalation Q12H #10.2 grams 12/16/23 mcg-4.5 mcg/actuation aerosol inhaler (Symbicort) Allergies Allergy/AdvReac Type Severity Reaction Status Date / Time lisinopril Allergy Cough Verified 12/16/23 09:55 ham Allergy hives Uncoded 12/16/23 09:55 [facility] Past Medical History Medical History Invasive ductal carcinoma of left breast (~02/2022) Cardiac resynchronization therapy defibrillator (KAIAWHINA-D) in place (~06/2023) NICM (nonischemic cardiomyopathy) LBBB (left bundle branch block) Hypertension Hypercholesteremia COPD (chronic obstructive pulmonary disease) Anemia Bipolar 1 disorder Surgical History History of cardiac defibrillator placement (~2022) History of cardiac cath (~2021) History of left breast biopsy (~2021) History of lumpectomy of left breast (~2021) History of hysterectomy (~2021) History of foot surgery (~2006) Family History Family History Maternal Aunt Lupus Mother Breast cancer Social History Social History Household Members: None Housing: Apartment Are you a primary cardiac care unit nurse to a significant other at home: No Do you presently have visiting nurse or other home services: No Alcohol intake: never Patient Tobacco Use Status: Former Tobacco user Quit Date: 8 yrs ago Tobacco use type: Cigarette service: No 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al status: disabled 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 She had a pacemaker placed 07/24/2023. Plan for ekg, labs, chest x-ray, viral swab Medical Decision Making Lab Data 10/03/23 16:21 10/03/23 16:21 Labs: Lab Results 10/03/23 Range/Units 16:21 WBC 5.6 (4.8-10.8) X10*3/uL RBC 4.28 (4.20-5.50) X10*6/uL Hgb 12.2 (12.0-16.0) g/dl Hct 36.1 L (37.0-47.0) % MCV 84.3 (80.0-98.0) fL MCH 28.5 (27.0-33.0) pg MCHC 33.8 (31.0-35.0) g/dl RDW 12.7 (11.0-16.0) % Plt Count 317 (160-400) X10*3/uL MPV 9.0 L (9.4-12.3) fL Immature Gran % (Auto) 0.7 H (0.0-0.4) % Neut % (Auto) 62.5 (45-73) % Lymph % (Auto) 27.2 (20-40) % Ramsey % (Auto) 7.7 (2-11) % Eos % (Auto) 1.4 (0-4) % Baso % (Auto) 0.5 (0-2) % Lymph # (Auto) 1.5 (1.2-4.9) X10*3/uL Ramsey # (Auto) 0.4 (0.1-1.2) X10*3/uL Eos # (Auto) 0.1 (0.0-0.4) X10*3/uL Baso # (Auto) 0.0 (0.0-0.2) X10*3/uL Abs Immat Gran (auto) 0.04 H (0.00-0.03) X10*3/uL Absolute Neuts (auto) 3.5 (2.0-8.3) x10*3/uL Absolute Nucleated RBC 0.000 (0.0-0.012) X10*3/uL Nucleated RBC % (auto) 0.0 (0.0-0.2) /100WBC PT 11.9 (11.1-13.3) SEC INR 1.0 (0.9-1.1) Sodium 144 (135-145) mmol/L Potassium 4.1 (3.3-5.1) mmol/L Chloride 110 H (96-108) mmol/L Carbon Dioxide 27 (22-29) mmol/L Anion Gap 11 L (12-20) BUN 25 H (9-16) mg/dL Creatinine 0.93 (0.5-1.4) mg/dL Estim Creat Clear Calc 60.0 Estimated GFR > 60 Random Glucose 116 H (60-115) mg/dL Calcium 9.7 D (8.4-10.2) mg/dL Total Bilirubin 0.3 (0.0-1.0) mg/dL AST 19 (5-31) U/L ALT 19 (0-31) U/L Alkaline Phosphatase 131 H (39-117) U/L Troponin I High Sens 5.3 (<3.5-17.0) ng/L B-Natriuretic Peptide 97 (<100) pg/mL Total Protein 7.5 (6.5-8.0) g/dL Albumin 4.1 (3.5-5.0) g/dL Lipase 17 (8-78) U/L Influenza Type A (PCR) NEGATIVE (Negative) Influenza Type B (PCR) NEGATIVE (Negative) RSV RNA Qual (PCR) NEGATIVE (Negative) SARS-CoV-2 RNA (RT-PCR) NEGATIVE (Negative) Discharge Plan Discharge Clinical Impression: Palpitations Patient Disposition: Left W/O Completing Treatment Prescriptions: No Action metoprolol succinate 25 mg tablet extended release 24 hr 25 mg PO QAM Qty: 90 3RF Anoro Ellipta 62.5-25 mcg/actuation blister with device 1 inh inhalation DAILY Qty: 60 3RF acetaminophen [Tylenol Extra Strength] 500 mg tablet 500 mg PO Q6H PRN (Reason: fever or pain) Qty: 14 0RF albuterol sulfate [ProAir HFA] 90 mcg/actuation HFA aerosol inhaler 1 inh inhalation QID cholecalciferol (vitamin D3) [Vitamin D3] 50 mcg (2,000 unit) capsule 50 mcg PO QAM atorvastatin 80 mg tablet 80 mg PO DAILY pantoprazole 40 mg tablet,delayed release (DR/EC) 40 mg PO DAILY ferrous sulfate [FeroSul] 325 mg (65 mg iron) tablet 325 mg PO Q OTHER DAY furosemide [Lasix] 20 mg tablet 20 mg PO DAILY Qty: 30 2RF ipratropium-albuterol 0.5 mg-3 mg(2.5 mg base)/3 mL solution for nebulization 3 ml inhalation Q6H PRN (Reason: wheezing) Qty: 90 3RF losartan 25 mg tablet 25 mg PO DAILY Qty: 90 3RF budesonide-formoterol [Symbicort] 160-4.5 mcg/actuation HFA aerosol inhaler 2 puff inhalation Q12H Qty: 10.2 6RF Discharge Date/Time: 10/03/23 20:34
--- NOTE | 2023-10-03 16:05 | ECG_ITS ---
Test Reason : chest pain Blood Pressure : / mmHG Vent. Rate : 081 BPM Atrial Rate : 081 BPM P-R Int : 174 ms QRS Dur : 126 ms QT Int : 438 ms P-R-T Axes : 042 202 017 degrees QTc Int : 508 ms Atrial-sensed ventricular-paced rhythm Biventricular pacemaker detected Abnormal ECG When compared to the previous EKG of 04 sep 2021, rhythm is now paced Referred By: Shaun Meraz Electronically Signed By:EVA CARLIN
--- OUTSIDE RECORDS SUMMARY | 2023-10-03 16:17 | XMS_ITS | Patient Health Record ---
Author Name Unknown Organization [facility] Address [address], [place] [id number] Support Name Relationship Address Phone [facility] [address] [place] [address] Renita Haddad Guarantor Unknown Unavailable REASON FOR REFERRAL No Information SOCIAL HISTORY Sex Assigned At : Social History Observation Description Sex Assigned At Unknown PLAN OF TREATMENT No Information Insurance Providers Payer Name Payer Address Payer Phone Subscriber Number Group Number Insured Name Patient Relationship to Insured Coverage Start Date Coverage End Date [place] Medicaid PCC [address] [place], [place] [id number] Renita Haddad Self - patient is the insured
[2023-10-03 16:26] LABS: MANUAL DIFF FLAG NO
[2023-10-03 16:28] LABS: Basophils Percent Auto 0.5 % (0-2); Eosinophils Absolute Auto 0.1 X10*3/uL (0.0-0.4); Eosinophils Percent Auto 1.4 % (0-4); Hematocrit 36.1 % (37.0-47.0); Hemoglobin 12.2 g/dl (12.0-16.0); Imm Gran Abs Auto 0.04 X10*3/uL (0.00-0.03); Imm Gran Pct Auto 0.7 % (0.0-0.4); Lymphocytes Absolute Auto 1.5 X10*3/uL (1.2-4.9); Lymphocytes Percent Auto 27.2 % (20-40); Mean Corpuscular HGB Conc 33.8 g/dl (31.0-35.0); Mean Corpuscular Hemoglobin 28.5 pg (27.0-33.0); Mean Corpuscular Volume 84.3 fL (80.0-98.0); Monocytes Absolute Auto 0.4 X10*3/uL (0.1-1.2); Monocytes Percent Auto 7.7 % (2-11); Neutrophils Absolute Auto 3.5 x10*3/uL (2.0-8.3); Neutrophils Percent Auto 62.5 % (45-73); Platelet Count 317 X10*3/uL (160-400); Red Blood Count 4.28 X10*6/uL (4.20-5.50); Red Cell Distribution Width 12.7 % (11.0-16.0); White Blood Count 5.6 X10*3/uL (4.8-10.8)
[2023-10-03 16:35] LABS: Prothrombin Time 11.9 SEC (11.1-13.3)
[2023-10-03 16:44] LABS: Alanine Aminotransferase 19 U/L (0-31); Albumin Level 4.1 g/dL (3.5-5.0); Alkaline Phosphatase 131 U/L (39-117); Anion Gap 11 (12-20); Aspartate Amino Transferase 19 U/L (5-31); Bilirubin Total 0.3 mg/dL (0.0-1.0); Blood Urea Nitrogen 25 mg/dL (9-16); Calcium 9.7 mg/dL (8.4-10.2); Carbon Dioxide 27 mmol/L (22-29); Chloride 110 mmol/L (96-108); Estimated Glomerular Filt Rate > 60; Glucose Random 116 mg/dL (60-115); Lipase 17 U/L (8-78); Potassium 4.1 mmol/L (3.3-5.1); Sodium 144 mmol/L (135-145); Total Protein 7.5 g/dL (6.5-8.0)
[2023-10-03 16:51] LABS: B Type Natriuretic Peptide 97 pg/mL (<100)
[2023-10-03 16:52] LABS: Troponin-I High Sensitivity 5.3 ng/L (<3.5-17.0)
[2023-10-03 17:20] LABS: Influenza A PCR NEGATIVE (Negative); Influenza B PCR NEGATIVE (Negative); Resp Syncy Virus RNA Qual PCR NEGATIVE (Negative); SARS COV2 PCR INHOUSE NEGATIVE (Negative)
== END 2023-10-03 20:34 | disposition left against medical advice (07) ==
PROVIDERS: Physician Assistant; Emergency Provider Emergency Medicine; PCP General Practice
DX: R07.89 Other chest pain (principal); R06.02 Shortness of breath; Z20.822 Contact with and (suspected) exposure to COVID-19; Z20.828 Contact with and (suspected) exposure to other viral communicable diseases; Z79.899 Other long term (current) drug therapy; Z87.891 Personal history of nicotine dependence
CPT/HCPCS: 0241U; 71046; 80053; 83690; 83880; 84484; 85025; 85610; 93005; 99283

== ENCOUNTER → 2023-10-03 16:05 | Outpatient (BNV) | payer OTHER, SELFPAY | PROVIDERS: Emergency Provider Emergency Medicine; PCP General Practice; Visit Provider Internal Medicine | DX: R94.31 Abnormal electrocardiogram [ECG] [EKG] (principal); R07.9 Chest pain, unspecified | CPT/HCPCS: 93010 ==

== ENCOUNTER 2023-10-10 10:50 | Outpatient (REF) | payer OTHER, SELFPAY | END 2023-10-10 10:51 | disposition home or self-care (01) | LOC: HO.RESP 10:50 | PROVIDERS: PCP General Practice; Visit Provider Nurse Practitioner Family | DX: Z13.89 Encounter for screening for other disorder (principal) ==

== ENCOUNTER 2023-10-15 09:49 | Outpatient (AMB) | payer OTHER, SELFPAY ==
[2023-10-15 09:57] VITALS: BP 136/70; PULSE 98; O2SAT 96; BMI 33.9
--- NOTE | 2023-10-15 09:57 | A.OFFVIS_ITS ---
Intake Vital Signs 10/15/23 09:57 Height 4 ft 11 in Weight 168 lb BMI 33.9 BP 136/70 Blood Pressure Location Lt brachial Pulse 98 Pulse Oximetry (%) 96 Oxygen Delivery Method Room Air Intake Visit Reasons: COPD Grain Scooper Required: No Education Site Manager: Education Site Manager offered & declined Accompanied by: Daughter Allergies lisinopril Allergy (Verified 10/15/23 10:06) Cough Medication List - Last Reconciled 10/15/23 by Kristin Putnam LPN acetaminophen (Tylenol Extra Strength) 500 mg PO Q6H PRN albuterol sulfate 90 mcg/actuation (ProAir HFA) 1 inh inhalation QID atorvastatin 80 mg PO DAILY cholecalciferol (vitamin D3) (Vitamin D3) 50 mcg PO QAM ferrous sulfate (FeroSul) 325 mg PO Q OTHER DAY furosemide (Lasix) 20 mg PO DAILY glycopyrrolate-formoterol 9-4.8 mcg (Bevespi Aerosphere) 2 puffs inhalation BID losartan 50 mg PO DAILY 90 days metoprolol succinate ER 25 mg PO QAM pantoprazole 40 mg PO DAILY HPI COPD HPI Details Renita is a very pleasant 53 year old female, former smoker with approximate 20 pack year history, quit 5 years ago, with underlying COPD, nonischemic cardiomyopathy related to left bundle-branch block LVEF 32% and breast cancer s/p surgery and radiation of left breast last year, under the care of Dr. Ken. On 07/24/23 she will have a pacer placed by Dr. Darling. She was referred for pulmonary evaluation for worsening dyspnea on minimal exertion that has progressively worsened over the past year. She also reports intermittent dry cough and wheeze. She reports suboptimal control on Incruse and developed hoarseness, switched to Bevespi. She reports minimal improvement in symptoms. Today she presents to review PFT results. Unfortunately, she had difficulties performing due to cough and dyspnea. She does report worsening dyspnea over the past month, reporting significant orthopnea and trace BLE edema. Recent CXR unremarkable. [facility] Medical History Invasive ductal carcinoma of left breast (~02/2022) Cardiac resynchronization therapy defibrillator ([facility]) in place (~06/2023) NICM (nonischemic cardiomyopathy) LBBB (left bundle branch block) Hypertension Hypercholesteremia COPD (chronic obstructive pulmonary disease) Anemia Bipolar 1 disorder Surgical History History of cardiac defibrillator placement (~2022) History of cardiac cath (~2021) History of left breast biopsy (~2021) History of lumpectomy of left breast (~2021) History of hysterectomy (~2021) History of foot surgery (~2006) Family History Maternal Aunt Lupus Mother Breast cancer Social History (Updated 10/15/23 @ 10:10 by Kristin Putnam LPN) Household Members: None Housing: Apartment Are you a primary health care facilities inspector to a significant other at home: No Do you presently have visiting nurse or other home services: No Alcohol intake: never Patient Tobacco Use Status: Former Tobacco user Quit Date: 8 yrs ago Tobacco use type: Cigarette Smoked in Last 30 Days: No service: No 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al status: disabled 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 Female Reproductive History Menstrual Age of Menarche: 12 Review of Systems Const Denies chills, Denies excessive sweating, Denies fever(s), Denies headache(s) and Denies night sweats Eyes Denies dry eyes, Denies irritation and Denies itchy eyes ENT Reports Normal hearing present, Denies headache(s), Denies nasal congestion, Denies nasal discharge, Denies post nasal drip and Denies sore throat Card Denies chest pain, Denies chest pain at rest, Denies chest pain with activity, Denies claudication, Denies leg edema and Denies paroxysmal nocturnal dyspnea Resp Denies chest congestion, Denies excessive phlegm production, Denies pain on inspiration, Denies pain with cough and Denies stridor Musc Denies myalgias Neuro Reports Normal hearing present and Denies headache(s) Endo Denies excessive sweating [place]/Lymph Denies lymphadenopathy Aller/Immun Denies itchy eyes and Denies seasonal rhinorrhea Physical Exam Vital Signs: Last Vital Signs Pulse 98 10/15/23 09:57 BP 136/70 10/15/23 09:57 Pulse Ox 96 10/15/23 09:57 Oxygen Delivery Method Room Air 10/15/23 09:57 BMI result Body Mass Index 33.9 Const General: cooperative, healthy appearing, comfortable, no acute distress, well developed and alert Nutritional Appearance: obese Orientation/consciousness: patient oriented x3 Limitations: no limitations HEENT Head: Yes normal to inspection, Yes normocephalic and Yes atraumatic Ears: hearing grossly normal bilaterally and external ears normal Eyes General: appearance normal, both eyes and all related structures Eyelids: Yes eyelids normal Sclerae: sclerae normal EOM: EOMs intact bilaterally Neck Neck: Yes normal visual inspection and Yes no lymphadenopathy Lymphatic: no lymphadenopathy noted Chest Chest palpation & inspection: normal inspection of the chest Resp Effort & Inspection: normal respiratory effort, able to speak in complete sentences, no audible wheezes, no cough, no stridor, not tachypneic, no tripod positioning and no use of accessory muscles Auscultation: clear to auscultation bilaterally Cardio Jugular venous distension: no JVD Rate: regular rate Rhythm: regular rhythm Skin Other: warm, dry General skin exam: no rashes or lesions noted Neuro General: patient oriented x3 Cranial nerves: Yes Normal hearing present Cognition (Neuro): normal cognition Gait exam (Neuro): Normal gait present Extrem General: Yes normal to inspection, Yes capillary refill normal, Yes no clubbing, cyanosis or edema and Yes no pedal edema Psych Appearance: grossly normal and well kempt Speech and movement: Normal speech and movement present and Clear speech present Affect: normal affect Attitude: cooperative Thought process: Normal thought process present Thought content: Normal thought content present Insight: Good insight present (Psych) Judgement: Good judgement present (Psych) Office Procedures 6 Minute Walk Time:: 11:04 SPO2 % at rest: 98 Pulse at rest: 88 SPO2 % during excercise: 97 Pulse during excercise: 101 SPO2 % after excercise: 98 Pulse after excercise: 93 Distance in yards walked: 250 Michele Score: 9 Performance Observations:: Patient walked without assistance on level ground at a slow pace. After approx 250 yards patient stopped, said she was too tired to continue. Patient 's O2 saturation was 97% and pulse rate was 101. Patient reports she rarely leaves her home because this happens all the time and she has to rest at least 30 minutes before she can go on and often times will take a nap. She reports she feels short of breath whenever she walks or sometimes even at rest. No supplemental O2 indicated at this time. [id number] - 6 Minute Walk Results Reviewed Results Reviewed: [facility] [address] [facility] [place] [address] XRay Report Signed Patient: Renita Brandon MR#: [id number] : 1970 Acct:[id number] Age/Sex: 53 / F ADM Date: 10/03/23 Loc: HO.ED Attending Dr: Ordering Physician: Shaun Meraz Date of Service: 10/03/23 Procedure(s): XR chest 2V Accession Number(s): [id number] cc: Hilda Butt; Shaun Meraz ~ EXAMINATION: XR CHEST CLINICAL INFORMATION: Pain. COMPARISON: Chest radiograph 12/21/2020. TECHNIQUE: 2 views of the chest were obtained. FINDINGS: Left-sided pacer/AICD with leads projecting over the right atrium, right ventricle and coronary sinus. Normal appearance of the cardiomediastinal silhouette. No focal airspace opacity, pleural effusion or pneumothorax. No acute osseous findings. Visualized upper abdomen is within normal limits. XR/XR chest 2V IMPRESSION: No acute cardiopulmonary findings. Dictated By: Evangelina Newberry Signed By: <Electronically signed by Evangelina Newberry in OV> 10/03/23 1654 DD/ 1637 TD/TT: Contract Clerk Automobile: Assessment & Plan Assessment & Plan (1) COPD (chronic obstructive pulmonary disease): Code(s): J44.9 - Chronic obstructive pulmonary disease, unspecified (2) Dyspnea on exertion: Code(s): R06.09 - Other forms of dyspnea (3) NICM (nonischemic cardiomyopathy): Code(s): I42.8 - Other cardiomyopathies Plan Renita's worsening symptoms are likely multifactorial with major cardiac contribution. Recent CXR unremarkable. Will send for chest CT for worsening dyspnea, to assess for ILD as patient had prior radiation. Advised patient to reach out to retail services professional for evaluation. 6MWT was performed again due to increasing dyspnea and patient does not qualify for oxygen at this time. Discussed trialing triple therapy but patient declined at this time. Will send in duoneb to trial. Will follow up to review results and response to duoneb or sooner if needed. All questions were answered and patient is in agreement of plan. Orders: Orders AMB 6 minute walk Today R06.09 - Other forms of dyspnea CT chest wo IV con Today R06.09 - Other forms of dyspnea Medications: New ipratropium-albuterol 0.5 mg-3 mg(2.5 mg base)/3 mL 3 mL inhalation Q6H PRN 90 mL 3RF wheezing Coding Level of Care Code Est Pt Level 4 (98355) Diagnoses COPD (chronic obstructive pulmonary disease) J44.9 Dyspnea on exertion R06.09 NICM (nonischemic cardiomyopathy) I42.8 CPT Codes Coding ([id number])
[2023-10-15 11:34] VITALS: PULSE 88; O2SAT 98
== END 2023-10-15 11:37 | disposition home or self-care (01) ==
PROVIDERS: PCP General Practice; Visit Provider Nurse Practitioner Family
DX: J44.9 Chronic obstructive pulmonary disease, unspecified (principal)
CPT/HCPCS: 94618; 99214

== ENCOUNTER → 2023-10-15 09:49 | Outpatient (BNVA) | payer OTHER, SELFPAY | PROVIDERS: PCP General Practice; Visit Provider Nurse Practitioner Family | DX: J44.9 Chronic obstructive pulmonary disease, unspecified (principal); R06.09 Other forms of dyspnea; I42.8 Other cardiomyopathies | CPT/HCPCS: 94618; 99212 ==

== ENCOUNTER 2023-11-14 14:04 | Outpatient (REF) | payer OTHER, SELFPAY ==
--- NOTE | ~2023-11-14 | CT_ITS ---
EXAMINATION: CT CHEST WITHOUT CONTRAST CLINICAL INFORMATION: 53-year-old female with dyspnea COMPARISON: None available. TECHNIQUE: Multidetector volumetric CT imaging of the chest was done. Axial MIP volume rendering provided. Sagittal and coronal reformatted images were obtained. This CT examination was performed using dose optimization techniques as appropriate, variously including the following: *Automated exposure control *Adjustment of mA and/or kV according to patient size (this includes techniques or standardized protocols for targeted exams where dose is matched to indication/reason for exam; i.e. extremities or head) *Use of iterative reconstruction technique DLP: 147 mGy-cm FINDINGS: CLIENT SUPPORT COORDINATOR: There is pacemaker battery with leads over the right atrium and ventricle. LUNGS: There is subpleural lung nodules seen in the left lower lobe image 29/59 measured 0.3 cm and there is subpleural groundglass opacity nodule on the right measured 0.7 cm seen on image 45/59. There are no peripheral nodules otherwise. MEDIASTINUM: Thyroid gland is unremarkable. There is pacemaker in the left side of the chest with leads in the right atrium and ventricle. Thoracic aorta is nondilated and there is no pericardial effusion. CORONARY ARTERY CALCIFICATION: None visualized on this study. PLEURA: There is no pleural effusion. No pleural mass or thickening. AXILLA: No lymphadenopathy. UPPER ABDOMEN: Unremarkable. OSSEOUS STRUCTURES: Unremarkable. CT/CT chest wo IV con IMPRESSION: 1. Small subpleural lung nodules bilaterally. 2. Pacemaker in place. 3. No evidence of pneumonia. 4. No evidence of significant coronary artery disease on this study. Fleischner guidelines were followed.
== END 2023-11-14 14:05 | disposition home or self-care (01) ==
LOC: HO.CT 14:04
PROVIDERS: PCP General Practice; Visit Provider Nurse Practitioner Family
DX: R06.09 Other forms of dyspnea (principal)
CPT/HCPCS: 71250

== ENCOUNTER 2023-12-08 10:27 | Outpatient (AMB) | payer OTHER, SELFPAY ==
--- NOTE | 2023-12-08 10:41 | MHC.OFFVIS ---
Intake Vital Signs 12/08/23 10:43 Height 4 ft 11 in Weight 163 lb 2.273 oz BMI 32.9 BP 96/64 Blood Pressure Location Lt brachial Position Sitting Pulse 88 Intake Visit Reasons: 3 mth f/up Intake Note: 3 month follow up Surgical Coder Required: No Accompanied by: Daughter Allergies lisinopril Allergy (Verified 12/08/23 10:44) Cough Medication List - Last Reconciled 12/08/23 by Jonah Darling MD acetaminophen (Tylenol Extra Strength) 500 mg PO Q6H PRN albuterol sulfate 90 mcg/actuation (ProAir HFA) 1 inh inhalation QID atorvastatin 80 mg PO DAILY cholecalciferol (vitamin D3) (Vitamin D3) 50 mcg PO QAM ferrous sulfate (FeroSul) 325 mg PO Q OTHER DAY furosemide (Lasix) 20 mg PO DAILY ipratropium-albuterol 0.5 mg-3 mg(2.5 mg base)/3 mL 3 mL inhalation Q6H PRN losartan 50 mg PO DAILY 90 days metoprolol succinate ER 25 mg PO QAM pantoprazole 40 mg PO DAILY umeclidinium-vilanterol 62.5-25 mcg/actuation (Anoro Ellipta) 1 inh inhalation DAILY HPI HPI Comments History of Present Illness Details Renita returns for follow-up regarding cardiomyopathy as well as left bundle-branch block. In 2022, he had verterbral artery dissection and was admitted to [facility] and then sent to rehab. Was on anti-coagulation, but then stopped. Otherwise, she has history of breast cancer and underwent surgery and radiation. From the cardiac standpoint, she has cardiomyopathy and was complaining of shortness of breath with activity and tiredness/fatigue. Subsequently, underwent biventricular ICD placement. Various nonspecific symptoms like feeling tired, weak, some dizziness, discomfort at the pacemaker site extra. [facility] Medical History Invasive ductal carcinoma of left breast (~02/2022) Cardiac resynchronization therapy defibrillator ([employer]) in place (~06/2023) NICM (nonischemic cardiomyopathy) LBBB (left bundle branch block) Hypertension Hypercholesteremia COPD (chronic obstructive pulmonary disease) Anemia Bipolar 1 disorder Surgical History History of cardiac defibrillator placement (~2022) History of cardiac cath (~2021) History of left breast biopsy (~2021) History of lumpectomy of left breast (~2021) History of hysterectomy (~2021) History of foot surgery (~2006) Family History Maternal Aunt Lupus Mother Breast cancer Social History Household Members: None Housing: Apartment Are you a primary manager intensive care to a significant other at home: No Do you presently have visiting nurse or other home services: No Alcohol intake: never Patient Tobacco Use Status: Former Tobacco user Quit Date: 8 yrs ago Tobacco use type: Cigarette service: No 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al status: disabled 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 Female Reproductive History Menstrual Age of Menarche: 12 Review of Systems Const Denies weakness ENT Reports dizziness Card Reports chest pain, Denies chest pain with activity, Denies syncope, Denies rapid heart rate, Denies pedal edema, Denies edema, Denies leg edema, Denies lightheadedness, Reports palpitations, Reports dyspnea and Denies orthopnea Resp Denies cough and Reports dyspnea GI Denies hematochezia and Denies change in stool character Musc Denies abnormal gait, Denies muscle cramps, Denies muscle weakness, Denies numbness, Denies radiating pain into limb and Denies tingling Neuro Denies abnormal gait, Reports dizziness, Denies syncope, Denies numbness, Denies tingling and Denies weakness Endo Reports palpitations Physical Exam Vital Signs: Last Vital Signs Pulse 88 12/08/23 10:43 BP 96/64 12/08/23 10:43 BMI result Body Mass Index 32.9 Const General: comfortable and no acute distress Orientation/consciousness: patient oriented x3 HEENT Other: Unremarkable Head: Yes normal to inspection Neck Neck: Yes normal visual inspection Chest Chest palpation & inspection: normal inspection of the chest Resp Auscultation: clear to auscultation bilaterally Cardio Palpation: normal PMI Heart sounds: S1 normal heart sound present, S2 normal heart sound present, no gallops, no murmurs and no rubs GI Palpation (GI): Soft to palpation Back/Spine/Pelvis Other: unremarkable Skin General skin exam: no rashes or lesions noted Neuro General: patient oriented x3 Extrem General: Yes normal to inspection Psych Mental Status: mental status grossly normal Assessment & Plan Assessment & Plan (1) NICM (nonischemic cardiomyopathy): Code(s): I42.8 - Other cardiomyopathies (2) LBBB (left bundle branch block): Code(s): I44.7 - Left bundle-branch block, unspecified (3) Cardiac resynchronization therapy defibrillator ([employer]) in place: Onset Date: ~06/2023 Code(s): Z95.810 - Presence of automatic (implantable) cardiac defibrillator Plan Last echocardiogram with LVEF 32%. In 2021, with LVEF of 35-40%. In 2017, it was 45-50%. Cardiac catheterization shows normal coronary arteries. Overall, nonischemic cardiomyopathy related to left bundle-branch block. For medications, she is on a combination of metoprolol ER and losartan. As blood pressures running low and she is also complaining of some dizziness, we can cut back on the losartan dose. Otherwise, on a small dose of diuretic. Clinically, no overt volume overload. Otherwise, her biventricular ICD can be followed up on remote monitoring. She has a history of vertebral artery dissection and states unable to go to [facility], where she was initially seen. Hence may go to vascular at [facility]. Orders: Orders Cardiac Rehab Today I42.8 - Other cardiomyopathies, I50.22 - Chronic systolic (congestive) heart failure CA echo transthoracic complete 6 Months I42.8 - Other cardiomyopathies Medications: New losartan 25 mg PO DAILY 90 tabs 3RF Discontinued losartan Discontinued Reason: Doctor's Order 50 mg PO DAILY 90 days 90 tabs 3RF Coding Level of Care Code Est Pt Level 4 (03815) Diagnoses NICM (nonischemic cardiomyopathy) I42.8 LBBB (left bundle branch block) I44.7 Cardiac resynchronization therapy defibrillator ([employer]) in place Z95.810
[2023-12-08 10:43] VITALS: BP 96/64; PULSE 88; BMI 32.9
== END 2023-12-08 11:20 | disposition home or self-care (01) ==
PROVIDERS: PCP General Practice; Visit Provider Internal Medicine
DX: I42.8 Other cardiomyopathies (principal); I44.7 Left bundle-branch block, unspecified; Z95.810 Presence of automatic (implantable) cardiac defibrillator
CPT/HCPCS: 99214

== ENCOUNTER → 2023-12-08 10:27 | Outpatient (BNVA) | payer OTHER, SELFPAY | PROVIDERS: PCP General Practice; Visit Provider Internal Medicine | DX: I42.8 Other cardiomyopathies (principal); I44.7 Left bundle-branch block, unspecified; Z95.810 Presence of automatic (implantable) cardiac defibrillator | CPT/HCPCS: 99212 ==

== ENCOUNTER 2023-12-16 09:47 | Outpatient (AMB) | payer OTHER, SELFPAY ==
--- NOTE | 2023-12-16 09:46 | MHC.OFFVIS ---
Intake Vital Signs 12/16/23 09:47 Height 4 ft 11 in Weight 164 lb BMI 33.1 BP 130/68 Blood Pressure Location Rt brachial Position Sitting Pulse 78 Pulse Source Pulse Oximeter Pulse Oximetry (%) 97 Oxygen Delivery Method Room Air Intake Visit Reasons: shortness of breath follow up Parachute Accessories Attacher Required: No Working Manager: Working Manager offered & declined Accompanied by: Daughter Allergies lisinopril Allergy (Verified 12/16/23 09:55) Cough ham Allergy (Uncoded 12/16/23 09:55) hives Medication List - Last Reconciled 12/16/23 by Kristin Putnam LPN acetaminophen (Tylenol Extra Strength) 500 mg PO Q6H PRN albuterol sulfate 90 mcg/actuation (ProAir HFA) 1 inh inhalation QID atorvastatin 80 mg PO DAILY cholecalciferol (vitamin D3) (Vitamin D3) 50 mcg PO QAM ferrous sulfate (FeroSul) 325 mg PO Q OTHER DAY furosemide (Lasix) 20 mg PO DAILY ipratropium-albuterol 0.5 mg-3 mg(2.5 mg base)/3 mL 3 mL inhalation Q6H PRN losartan 25 mg PO DAILY metoprolol succinate ER 25 mg PO QAM pantoprazole 40 mg PO DAILY umeclidinium-vilanterol 62.5-25 mcg/actuation (Anoro Ellipta) 1 inh inhalation DAILY HPI shortness of breath follow up HPI Details Renita is a very pleasant 53 year old female, former smoker with approximate 20 pack year history, quit 5 years ago, with underlying COPD, nonischemic cardiomyopathy related to left bundle-branch block LVEF 32% s/p pacer and breast cancer s/p surgery and radiation of left breast last year, under the care of Dr. Ken. She was initially referred for worsening dyspnea on minimal exertion that has progressively worsened over the past year with associated dry cough and wheeze. She reports suboptimal control on Advair then Incruse and developed hoarseness, switched to Bevespi. She was then switched to Anoro but again developed hoarseness and suboptimal effect so discontinued. She would like to trial an ICS/LABA again. Today she presents to review chest CT. She was also sent for PFT but unfortunately, due to persistent coughing, was unable to complete. [facility] Medical History Invasive ductal carcinoma of left breast (~02/2022) Cardiac resynchronization therapy defibrillator (COMPO CASTER-D) in place (~06/2023) NICM (nonischemic cardiomyopathy) LBBB (left bundle branch block) Hypertension Hypercholesteremia COPD (chronic obstructive pulmonary disease) Anemia Bipolar 1 disorder Surgical History History of cardiac defibrillator placement (~2022) History of cardiac cath (~2021) History of left breast biopsy (~2021) History of lumpectomy of left breast (~2021) History of hysterectomy (~2021) History of foot surgery (~2006) Family History Maternal Aunt Lupus Mother Breast cancer Social History Household Members: None Housing: Apartment Are you a primary anesthesiologist and critical care to a significant other at home: No Do you presently have visiting nurse or other home services: No Alcohol intake: never Patient Tobacco Use Status: Former Tobacco user Quit Date: 8 yrs ago Tobacco use type: Cigarette service: No 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al status: disabled 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 Female Reproductive History Menstrual Age of Menarche: 12 Review of Systems Const Denies chills, Denies excessive sweating, Denies fever(s), Denies headache(s) and Denies night sweats Eyes Denies dry eyes, Denies irritation and Denies itchy eyes ENT Reports Normal hearing present, Denies headache(s), Denies nasal congestion, Denies nasal discharge, Denies post nasal drip and Denies sore throat Card Denies chest pain, Denies chest pain at rest, Denies chest pain with activity, Denies claudication, Reports leg edema, Reports dyspnea on exertion and Denies paroxysmal nocturnal dyspnea Resp Denies chest congestion, Reports cough, Denies excessive phlegm production, Denies pain on inspiration, Denies pain with cough, Reports dyspnea on exertion, Denies stridor and Reports wheezing Musc Denies myalgias Neuro Reports Normal hearing present and Denies headache(s) Endo Denies excessive sweating Franklin/Lymph Denies lymphadenopathy Aller/Immun Denies itchy eyes, Denies seasonal rhinorrhea and Reports wheezing Physical Exam Vital Signs: Last Vital Signs Pulse 78 12/16/23 09:47 BP 130/68 12/16/23 09:47 Pulse Ox 97 12/16/23 09:47 Oxygen Delivery Method Room Air 12/16/23 09:47 BMI result Body Mass Index 33.1 Const General: cooperative, healthy appearing, comfortable, no acute distress, well developed and alert Nutritional Appearance: obese Orientation/consciousness: patient oriented x3 Limitations: no limitations HEENT Head: Yes normal to inspection, Yes normocephalic and Yes atraumatic Ears: hearing grossly normal bilaterally and external ears normal Eyes General: appearance normal, both eyes and all related structures Eyelids: Yes eyelids normal Sclerae: sclerae normal EOM: EOMs intact bilaterally Neck Neck: Yes normal visual inspection and Yes no lymphadenopathy Lymphatic: no lymphadenopathy noted Chest Chest palpation & inspection: normal inspection of the chest Resp Effort & Inspection: normal respiratory effort, able to speak in complete sentences, no audible wheezes, no cough, no stridor, not tachypneic, no tripod positioning and no use of accessory muscles Auscultation: clear to auscultation bilaterally Cardio Jugular venous distension: no JVD Rate: regular rate Rhythm: regular rhythm Skin Other: warm, dry General skin exam: no rashes or lesions noted Neuro General: patient oriented x3 Cranial nerves: Yes Normal hearing present Cognition (Neuro): normal cognition Gait exam (Neuro): Normal gait present Extrem General: Yes normal to inspection, Yes capillary refill normal, Yes no clubbing, cyanosis or edema and Yes no pedal edema Psych Appearance: grossly normal and well kempt Speech and movement: Normal speech and movement present and Clear speech present Affect: normal affect Attitude: cooperative Thought process: Normal thought process present Thought content: Normal thought content present Insight: Good insight present (Psych) Judgement: Good judgement present (Psych) Results Reviewed Results Reviewed: [address] [address] [address] Scan Report Signed Patient: Renita Brandon MR#: [id number] : 1970 Acct:[id number] Age/Sex: 53 / F ADM Date: 11/14/23 Loc: HO.CT Attending Dr: Sandy Shah NP Ordering Physician: Sandy Shah NP Date of Service: 11/14/23 Procedure(s): CT chest wo IV con Accession Number(s): [id number] cc: Hilda Butt; Sandy Shah COOLER TENDER~ EXAMINATION: CT CHEST WITHOUT CONTRAST CLINICAL INFORMATION: 53-year-old female with dyspnea COMPARISON: None available. TECHNIQUE: Multidetector volumetric CT imaging of the chest was done. Axial MIP volume rendering provided. Sagittal and coronal reformatted images were obtained. This CT examination was performed using dose optimization techniques as appropriate, variously including the following: *Automated exposure control *Adjustment of mA and/or kV according to patient size (this includes techniques or standardized protocols for targeted exams where dose is matched to indication/reason for exam; i.e. extremities or head) *Use of iterative reconstruction technique DLP: 147 mGy-cm FINDINGS: ADVANCED MANUFACTURING CONSULTANT: There is pacemaker battery with leads over the right atrium and ventricle. LUNGS: There is subpleural lung nodules seen in the left lower lobe image 29/59 measured 0.3 cm and there is subpleural groundglass opacity nodule on the right measured 0.7 cm seen on image 45/59. There are no peripheral nodules otherwise. MEDIASTINUM: Thyroid gland is unremarkable. There is pacemaker in the left side of the chest with leads in the right atrium and ventricle. Thoracic aorta is nondilated and there is no pericardial effusion. CORONARY ARTERY CALCIFICATION: None visualized on this study. PLEURA: There is no pleural effusion. No pleural mass or thickening. AXILLA: No lymphadenopathy. UPPER ABDOMEN: Unremarkable. OSSEOUS STRUCTURES: Unremarkable. CT/CT chest wo IV con IMPRESSION: 1. Small subpleural lung nodules bilaterally. 2. Pacemaker in place. 3. No evidence of pneumonia. 4. No evidence of significant coronary artery disease on this study. Fleischner guidelines were followed. Assessment & Plan Assessment & Plan (1) COPD (chronic obstructive pulmonary disease): Code(s): J44.9 - Chronic obstructive pulmonary disease, unspecified (2) Dyspnea on exertion: Code(s): R06.09 - Other forms of dyspnea (3) NICM (nonischemic cardiomyopathy): Code(s): I42.8 - Other cardiomyopathies (4) Multiple pulmonary nodules: Code(s): R91.8 - Other nonspecific abnormal finding of lung field Plan Renita's worsening symptoms are likely multifactorial with major cardiac contribution. Reviewed chest CT which revealed a 3mm subpleural lung nodules seen in the left lower lobe and a 7mm subpleural groundglass opacity of the RLL. Will follow up with chest CT in one year. Unfortunately, patient was unable to complete PFT. Attempted spirometry in office but patient developed dizziness secondary to recent vertigo diagnosis. Will attempt in the future. Will trial symbicort. Inhaler technique and importance of oral hygiene reviewed. Will follow up to review response to symbicort or sooner if needed. All questions were answered and patient is in agreement of plan. Orders: Orders CT chest wo IV con 11 Months R91.8 - Other nonspecific abnormal finding of lung field Medications: New budesonide-formoterol 160-4.5 mcg/actuation (Symbicort) 2 puffs inhalation Q12H 10.2 grams 6RF Coding Level of Care Code Est Pt Level 4 (79419) Diagnoses COPD (chronic obstructive pulmonary disease) J44.9 Dyspnea on exertion R06.09 NICM (nonischemic cardiomyopathy) I42.8 Multiple pulmonary nodules R91.8
[2023-12-16 09:47] VITALS: BP 130/68; PULSE 78; O2SAT 97; BMI 33.1
== END 2023-12-16 10:53 | disposition home or self-care (01) ==
PROVIDERS: PCP General Practice; Visit Provider Nurse Practitioner Family
DX: J44.9 Chronic obstructive pulmonary disease, unspecified (principal); R06.09 Other forms of dyspnea; I42.8 Other cardiomyopathies; R91.8 Other nonspecific abnormal finding of lung field
CPT/HCPCS: 99214

== ENCOUNTER → 2023-12-16 09:47 | Outpatient (BNVA) | payer OTHER, SELFPAY | PROVIDERS: PCP General Practice; Visit Provider Nurse Practitioner Family | DX: J44.9 Chronic obstructive pulmonary disease, unspecified (principal); R91.8 Other nonspecific abnormal finding of lung field; R06.09 Other forms of dyspnea; I42.8 Other cardiomyopathies | CPT/HCPCS: 99212 ==

== ENCOUNTER → 2023-12-19 23:59 | Outpatient (BNV) | payer OTHER, SELFPAY ==
--- NOTE | 2023-12-24 14:27 | A.OFFVIS_ITS ---
Intake Intake Visit Reasons: Remote ICD Check- [facility] Allergies lisinopril Allergy (Verified 12/16/23 09:55) Cough ham Allergy (Uncoded 12/16/23 09:55) hives COUNT INCLUDES THE [facility] Medical History Invasive ductal carcinoma of left breast (~02/2022) Cardiac resynchronization therapy defibrillator (MARINA DRY DOCK MANAGER-D) in place (~06/2023) NICM (nonischemic cardiomyopathy) LBBB (left bundle branch block) Hypertension Hypercholesteremia COPD (chronic obstructive pulmonary disease) Anemia Bipolar 1 disorder Surgical History History of cardiac defibrillator placement (~2022) History of cardiac cath (~2021) History of left breast biopsy (~2021) History of lumpectomy of left breast (~2021) History of hysterectomy (~2021) History of foot surgery (~2006) Family History Maternal Aunt Lupus Mother Breast cancer Social History Household Members: None Housing: Apartment Are you a primary anesthesiologist and critical care to a significant other at home: No Do you presently have visiting nurse or other home services: No Alcohol intake: never Patient Tobacco Use Status: Former Tobacco user Quit Date: 8 yrs ago Tobacco use type: Cigarette service: No 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al status: disabled 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 [id number] Cardiac Interrogation, implant defibrillator w/interim Procedure code (CPT) selection complete Assessment & Plan Assessment & Plan (1) NICM (nonischemic cardiomyopathy): Code(s): I42.8 - Other cardiomyopathies Plan x Coding Level of Care Code Procedure Only Diagnoses NICM (nonischemic cardiomyopathy) I42.8 CPT Codes Cardiac Device Check - Cardiac Device 13: [id number] Cardiac Interrogation, implant defibrillator w/interim ([id number])
== END ==
PROVIDERS: PCP General Practice; Visit Provider Internal Medicine
DX: I42.8 Other cardiomyopathies (principal); Z95.810 Presence of automatic (implantable) cardiac defibrillator
CPT/HCPCS: 93295

== ENCOUNTER 2024-01-21 15:38 | Outpatient (REF) | payer OTHER, SELFPAY ==
[2024-01-21 18:01] LABS: Alanine Aminotransferase 21 U/L (0-31); Albumin Level 4.3 g/dL (3.5-5.0); Alkaline Phosphatase 131 U/L (39-117); Anion Gap 13 (12-20); Aspartate Amino Transferase 21 U/L (5-31); Bilirubin Total 0.2 mg/dL (0.0-1.0); Blood Urea Nitrogen 19 mg/dL (9-16); Calcium 9.8 mg/dL (8.4-10.2); Carbon Dioxide 26 mmol/L (22-29); Chloride 108 mmol/L (96-108); Estimated Glomerular Filt Rate > 60; Glucose Random 106 mg/dL (60-115); Potassium 4.1 mmol/L (3.3-5.1); Sodium 143 mmol/L (135-145); Total Protein 7.7 g/dL (6.5-8.0)
[2024-01-21 18:05] LABS: B Type Natriuretic Peptide 29 pg/mL (<100)
== END 2024-01-21 15:39 | disposition home or self-care (01) ==
LOC: HO.HHCL 15:38
PROVIDERS: Visit Provider General Practice
DX: R06.02 Shortness of breath (principal)
CPT/HCPCS: 36415; 80053; 83880

== ENCOUNTER 2024-01-22 10:08 | Outpatient (REF) | payer OTHER, SELFPAY ==
--- NOTE | ~2024-01-22 | US_ITS ---
EXAMINATION: US EXTRACRANIAL CAROTID DUPLEX, BILATERAL CLINICAL INFORMATION: Occlusion and stenosis of bilateral carotid arteries COMPARISON: None available. TECHNIQUE: Real-time ultrasound and Doppler techniques (integrating B-mode 2-D vascular images, Doppler spectral analysis and color-flow Doppler imaging) were utilized to interrogate the extracranial carotid arteries, the vertebral arteries and proximal subclavian arteries bilaterally. The degree of stenosis is determined by criteria similar to NASCET. FINDINGS: Right Side: 1. There is severe atherosclerotic plaque seen in the bifurcation/proximal ICA region. 2. The common carotid artery PSV proximally is 71.5 cm/s and distally 71.5 cm/s. 3. The proximal internal carotid artery velocities are 164 cm/s systolic and 62.9 cm/s diastolic. 4. The proximal external carotid artery PSV is 195 cm/s. 5. The vertebral artery shows antegrade flow. 6. The subclavian artery waveforms are normal. Left Side: 1. There is severe atherosclerotic plaque seen in the bifurcation/proximal ICA region. 2. The common carotid artery PSV proximally is 103 cm/s and distally 95.9 cm/s. 3. The proximal internal carotid artery velocities are 147 cm/s systolic and 64.8 cm/s diastolic. 4. The proximal external carotid artery PSV is 78.6 cm/s. 5. The vertebral artery shows antegrade flow. 6. The subclavian artery waveforms are normal. US/US carotid duplex BI IMPRESSION: 1. RIGHT: Moderate, hemodynamically significant stenosis of the proximal right internal carotid artery corresponding to a 50-79% stenosis by velocity criteria. 2. LEFT: Moderate, hemodynamically significant stenosis of the proximal left internal carotid artery corresponding to a 50-79% stenosis by velocity criteria.
== END 2024-01-22 10:09 | disposition home or self-care (01) ==
LOC: HO.HMGCX 10:08
PROVIDERS: PCP General Practice; Visit Provider Surgery Vascular Surgery
DX: I65.23 Occlusion and stenosis of bilateral carotid arteries (principal)
CPT/HCPCS: 93880

== ENCOUNTER 2024-02-17 12:55 | Outpatient (AMB) | payer OTHER, SELFPAY ==
[2024-02-17 13:30] VITALS: BMI 32.9
--- NOTE | 2024-02-17 13:30 | MHC.OFFVIS ---
Vital Signs 02/17/24 13:30 Height 4 ft 11 in Weight 163 lb BMI 32.9 Intake Visit Reasons: Follow Up 01/21 Carotid US Intake Note: Patient presents for follow up s/p 01/21 carotid US. Patient states she is still experiencing numbness in the face , blurred vision, headaches, dizziness and trouble walking. Patient stated, I am hearing my heartbeat in my head and ears. Accompanied by: Self / Same As Patient Allergies lisinopril Allergy (Verified 12/16/23 09:55) Cough ham Allergy (Uncoded 12/16/23 09:55) hives HPI HPI Follow Up 01/21 Carotid US: Details: Very pleasant 53-year-old presents for follow-up regarding carotid disease. She appears to have headaches and syncopal episodes she was originally worked up for this questionable vertebral artery dissection and it turned out to be negative [place] [facility] [place] been worked up by Cardiology regarding cardiomyopathy as well as a left bundle branch block. She has had a pacemaker placed. She note some generalized numbness throughout her body including her face but no focal weakness. She now presents for follow-up with routine surveillance carotid testing. [facility] Medical History Invasive ductal carcinoma of left breast (~02/2022) Cardiac resynchronization therapy defibrillator (PROP MAKER-D) in place (~06/2023) NICM (nonischemic cardiomyopathy) LBBB (left bundle branch block) Hypertension Hypercholesteremia COPD (chronic obstructive pulmonary disease) Anemia Bipolar 1 disorder Surgical History History of cardiac defibrillator placement (~2022) History of cardiac cath (~2021) History of left breast biopsy (~2021) History of lumpectomy of left breast (~2021) History of hysterectomy (~2021) History of foot surgery (~2006) Family History Maternal Aunt Lupus Mother Breast cancer Social History Household Members: None Housing: Apartment Are you a primary home health aide caregiver to a significant other at home: No Do you presently have visiting nurse or other home services: No Alcohol intake: never Patient Tobacco Use Status: Former Tobacco user Quit Date: 8 yrs ago Tobacco use type: Cigarette service: No 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al status: disabled 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 Female Reproductive History Menstrual Age of Menarche: 12 Review of Systems Const All systems reviewed & are unremarkable except as noted in HPI and below Reports no additional complaints ENT Reports Normal hearing present Card Denies chest pain, Denies chest pain at rest, Denies chest pain with activity and Denies pedal edema Resp Denies cough GI Denies abdominal pain Musc Denies abnormal gait, Denies muscle cramps and Denies radiating pain into limb Skin/Breast Denies skin ulcer and Denies wounds Neuro Reports Normal hearing present and Denies abnormal gait Psych Reports no additional complaints Physical Exam Vital Signs: BMI result Body Mass Index 32.9 Const General: cooperative, healthy appearing and comfortable Orientation/consciousness: oriented to person, oriented to place and oriented to time HEENT Head: Yes normal to inspection Neck Neck: Yes normal visual inspection Carotids: no bruits Chest Chest palpation & inspection: normal inspection of the chest Resp Effort & Inspection: normal respiratory effort and able to speak in complete sentences Auscultation: clear to auscultation bilaterally, no crackles, no rales, no rhonchi and no wheezes Cardio Rate: regular rate Rhythm: regular rhythm Heart sounds: S1 normal heart sound present and S2 normal heart sound present Bruits: no carotid bruits Peripheral pulses: Peripheral pulses 2+ throughout GI Inspection: Yes normal to inspection Skin Wounds: no wounds Hair: normal Neuro General: oriented to person, oriented to place and oriented to time Cranial nerves: Yes CN's II-XII intact bilaterally and Yes Normal hearing present Cognition (Neuro): normal cognition Motor exam (neuro): 5/5 motor strength present throughout Extrem Other: venous exam: No significant superficial varicosities or spider telangiectasias, minimal edema General: No clubbing, No cyanosis and No edema Psych Appearance: grossly normal Mental Status: mental status grossly normal Speech and movement: Normal speech and movement present Results Reviewed Results Reviewed: Noninvasive carotid testing dated 01/22/2024 demonstrates right side 50 to 79% stenosis with a peak systolic of 164 and left side 50-79% stenosis with a peak systolic of 147. Written report and images were reviewed. Assessment & Plan Assessment & Plan (1) Bilateral carotid artery stenosis: Code(s): I65.23 - Occlusion and stenosis of bilateral carotid arteries Category: Medical Plan: In short patient has stable carotid disease. I do not believe this is the source of her symptoms and it appears to be more neurogenic in nature. Due to her disease we will schedule her for routine annual surveillance. Should there be any interval changes happy to see her back sooner. Thank you for allowing us to assist in her care. If there are any questions or concerns please do not hesitate to contact us. Orders: Orders US carotid duplex BI 1 Year I65.23 - Occlusion and stenosis of bilateral carotid arteries Coding Level of Care Code Est Pt Level 4 (56001) Diagnoses Bilateral carotid artery stenosis I65.23
== END 2024-02-17 13:58 | disposition home or self-care (01) ==
PROVIDERS: PCP General Practice; Visit Provider Surgery Vascular Surgery
DX: I65.23 Occlusion and stenosis of bilateral carotid arteries (principal)
CPT/HCPCS: 99213

== ENCOUNTER → 2024-02-17 12:55 | Outpatient (BNVA) | payer OTHER, SELFPAY | PROVIDERS: PCP General Practice; Visit Provider Surgery Vascular Surgery | DX: I65.23 Occlusion and stenosis of bilateral carotid arteries (principal); Z95.810 Presence of automatic (implantable) cardiac defibrillator | CPT/HCPCS: 99212 ==

== ENCOUNTER 2024-02-20 18:30 | Outpatient (REF) | payer OTHER, SELFPAY ==
[2024-02-25 23:18] LABS: HPV mRNA E6/E7 rflx Not Detected (Not Detected)
== END 2024-02-20 18:31 | disposition home or self-care (01) ==
LOC: HO.LNP 18:30
PROVIDERS: Visit Provider General Practice
DX: Z01.419 Encounter for gynecological examination (general) (routine) without abnormal findings (principal)
CPT/HCPCS: 87624; 88142

== ENCOUNTER → 2024-03-03 10:06 | Outpatient (REF) | payer OTHER, SELFPAY ==
--- NOTE | 2024-03-03 10:10 | CA_ITS ---
Transthoracic Echocardiogram Patient (Last, First, Middle): Renita Brandon, Gender: Female Date of : 1970 Age: 53 Procedure Date: 03/03/2024 Procedure Type: Transthoracic Echocardiogram Location: OP Height: 149.86 cm Weight: 72.58 kg BSA: 1.68 m2 Heart Rate: bpm BP: 130 / 82 mmHg Business Process Architect: TO Referring MD: Hilda Butt MD Special Deputy Sheriff: Ganga Evans MD Symptoms: R06.02 SOB Study Quality: Fair, contrast ECG Rhythm: Sinus Conclusions: - 1. Mildly dilated left ventricle with moderate to severe LV systolic dysfunction with LVEF of 30 35% with impaired relaxation filling pattern 2. [id number] mitral regurgitation 3. Normal RV systolic pressure 4. Mildly dilated ascending aorta at 3.7 cm 5. No pericardial effusion Findings Procedure Information Contrast agent, definity, is being given per protocol without apparent complications. Left Ventricle Mildly increased left ventricular cavity size. There is normal left ventricular wall thickness. The left ventricular systolic function is moderate to severely decreased. The visually estimated ejection fraction is between 30-35%. Spectral Doppler is indicative of an impaired relaxation filling pattern. E/E prime ratio is >15, consistent with elevated filling pressures. Right Ventricle Normal right ventricular cavity size. There is normal right ventricular systolic function. There is a pacemaker wire seen in the right ventricle. Atria The left atrium is likely dilated. The right atrium is normal in size. A pacemaker wire is identified in the right atrium. Aortic Valve Normal aortic valve structure and function. There is no aortic valve stenosis. There is no aortic valve regurgitation. Mitral Valve There is mild anterior and posterior mitral leaflet thickening. There is mild to moderate mitral valve regurgitation. There is no mitral valve stenosis. Pulmonic Valve The pulmonic valve was not well visualized. Tricuspid Valve Likely normal tricuspid valve structure and function. There is mild tricuspid valve regurgitation. The right ventricular systolic pressure is normal. The right ventricular systolic pressure is 26 mmHg. Normal right atrial pressure. There is no evidence of pulmonary hypertension. Great Vessels The pulmonary artery was not well visualized. There is mild dilatation of the ascending aorta measuring 3.70 cm. Venous The inferior vena cava is normal in size and collapses greater than 50% with inspiration. Pericardium/Pleural There is no evidence of pericardial effusion. Prior Study Comparison Changes noted compared to prior study dated: 04/30/2023. [id number] mitral regurgitation is noted. Ascending aorta is mildly dilated Measurements 2D Linear Measurements IVSd: 0.94 0.6-0.9/0.6-1.0 cm LVIDd: 5.51 3.9-5.3/4.2-5.9 cm LVIDd Index: 3.28 2.4-3.2/2.2-3.1 cm/m2 LVIDs: 4.50 2.0-3.6 cm LVPWd: 0.88 0.7-1.1 cm LA Diam: 3.80 2.7-3.8/3.0-4.0 cm LAIDs Index: 2.26 1.5-2.3 cm/m2 LV Mass: 234.10 67-162/88-224 g LV Mass Index: 139.35 43-95/49-115 g/m2 LVOT Diam: 2.00 3.0+(-)1.3 cm 2D Systolic Function EF 4C: 25.90 >55% EF 2C: 33.30 >55% EF BiP: 31.00 >55% Mitral Valve MV Pk E: 0.66 MV PK A: 0.95 MV Decel Time: 172.00 E/A: 0.70 E'Lateral: 4.57 E'Medial: 3.70 E/E' Med: 17.70 E/E' Lat: 14.40 PHT: 50.00 MVA PHT: 4.40 Decel [place]: 3.82 MR VTI: 1.99 Aortic Valve AoV Pk Stanislaw: 1.82 AoV Mn Stan[place]: 1.16 AoV VTI: 0.33 AoV Pk Grad: 13.00 Aov Mn Grad: 6.00 WILDER Cont.VTI: 1.96 LVOT LVOT Pk Stan[place]law: 0.98 LVOT Mn [place]: 0.72 LVOT VTI: 0.21 LVOT Pk Grad: 4.00 LVOT Mn Grad: 2.00 LVOT Diam: 2.00 LVOT Area: 3.14 Diastolic Function MV Pk E: 0.66 MV Pk A: 0.95 E/A: 0.70 E'Medial: 3.70 E/E' Med: 17.70 E' Laterial: 4.57 E/E' Lat: 14.40 Right Ventricle TAPSE (mm): 23.00 TVS' Stanislaw: 12.90 Tricuspid Valve TR Pk Stan[place]law: 2.40 TR Pk Grad: 23.00 RA Press: 3.00 RVSP: 26.00 Great Vessels Aorta Sinus of Valsalva: 2.95 2.0-3.5 cm Ao Asc: 3.70 2.1-3.4 cm Updated in Other Vendor System with Status of Final Ganga Evans MD electronically signed on 03/04/2024 3:48:56 PM with status of Final
== END ==
LOC: HO.CARD 10:06
PROVIDERS: PCP General Practice; Visit Provider General Practice
DX: R06.02 Shortness of breath (principal); I42.8 Other cardiomyopathies
CPT/HCPCS: 93306; Q9957

== ENCOUNTER → 2024-03-03 10:10 | Outpatient (BNV) | payer OTHER, SELFPAY | PROVIDERS: PCP General Practice; Visit Provider Internal Medicine Cardiovascular Disease | DX: I34.0 Nonrheumatic mitral (valve) insufficiency (principal); I36.1 Nonrheumatic tricuspid (valve) insufficiency | CPT/HCPCS: 93306 ==

== ENCOUNTER 2024-03-11 15:06 | Outpatient (AMB) | payer OTHER, SELFPAY ==
[2024-03-11 15:11] VITALS: BP 130/64; PULSE 84; BMI 34.5
--- NOTE | 2024-03-11 15:11 | A.OFFVIS_ITS ---
Vital Signs 03/11/24 15:11 Height 4 ft 11 in Weight 171 lb 1.259 oz BMI 34.5 BP 130/64 Blood Pressure Location Lt brachial Position Sitting Pulse 84 Intake Visit Reasons: Shortness of Breathe Rehabilitation Services Director Required: No Accompanied by: Self / Same As Patient Allergies lisinopril Allergy (Verified 12/16/23 09:55) Cough ham Allergy (Uncoded 12/16/23 09:55) hives Medication List - Last Reconciled 03/11/24 by Jonah Darling MD acetaminophen (Tylenol Extra Strength) 500 mg PO Q6H PRN albuterol sulfate 90 mcg/actuation (ProAir HFA) 1 inh inhalation QID atorvastatin 80 mg PO DAILY budesonide-formoterol 160-4.5 mcg/actuation (Symbicort) 2 puffs inhalation Q12H cholecalciferol (vitamin D3) (Vitamin D3) 50 mcg PO QAM ferrous sulfate (FeroSul) 325 mg PO Q OTHER DAY furosemide (Lasix) 20 mg PO DAILY ipratropium-albuterol 0.5 mg-3 mg(2.5 mg base)/3 mL 3 mL inhalation Q6H PRN losartan 25 mg PO DAILY metoprolol succinate ER 25 mg PO QAM pantoprazole 40 mg PO DAILY umeclidinium-vilanterol 62.5-25 mcg/actuation (Anoro Ellipta) 1 inh inhalation DAILY HPI Comments Details: Renita returns for follow-up regarding cardiomyopathy as well as left bundle- branch block. In 2022, he had verterbral artery dissection and was admitted to [facility] and then sent to rehab. Was on anti-coagulation, but then stopped. Otherwise, she has history of breast cancer and underwent surgery and radiation. From the cardiac standpoint, she has cardiomyopathy and was complaining of shortness of breath with activity and tiredness/fatigue. Subsequently, underwent biventricular ICD placement. She states that the shortness of breath still about the same. Some leg swelling off and on but not much today. [facility] Medical History Invasive ductal carcinoma of left breast (~02/2022) Cardiac resynchronization therapy defibrillator (PLANNING ASSOCIATE-D) in place (~06/2023) NICM (nonischemic cardiomyopathy) LBBB (left bundle branch block) Hypertension Hypercholesteremia COPD (chronic obstructive pulmonary disease) Anemia Bipolar 1 disorder Surgical History History of cardiac defibrillator placement (~2022) History of cardiac cath (~2021) History of left breast biopsy (~2021) History of lumpectomy of left breast (~2021) History of hysterectomy (~2021) History of foot surgery (~2006) Family History Maternal Aunt Lupus Mother Breast cancer Social History Household Members: None Housing: Apartment Are you a primary care professionals to a significant other at home: No Do you presently have visiting nurse or other home services: No Alcohol intake: never Patient Tobacco Use Status: Former Tobacco user Quit Date: 8 yrs ago Tobacco use type: Cigarette service: No 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al status: disabled 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 Female Reproductive History Menstrual Age of Menarche: 12 Review of Systems Const Denies chills, Denies fatigue, Denies fever(s), Denies frequent falls, Denies weakness, Denies weight gain and Denies weight loss ENT Denies dizziness Card Denies chest pain, Denies leg edema, Denies lightheadedness, Denies palpitations, Denies dyspnea and Denies dyspnea on exertion Resp Denies cough, Denies dyspnea and Denies dyspnea on exertion GI Denies hematochezia Musc Denies abnormal gait, Denies muscle weakness, Denies numbness, Denies radiating pain into limb and Denies tingling Neuro Denies abnormal gait, Denies dizziness, Denies frequent falls, Denies numbness, Denies tingling and Denies weakness Endo Denies fatigue and Denies palpitations Physical Exam Vital Signs: Last Vital Signs Pulse 84 03/11/24 15:11 BP 130/64 03/11/24 15:11 BMI result Body Mass Index 34.5 Const General: comfortable and no acute distress Orientation/consciousness: patient oriented x3 HEENT Other: Unremarkable Head: Yes normal to inspection Neck Neck: Yes normal visual inspection Chest Chest palpation & inspection: normal inspection of the chest Resp Auscultation: clear to auscultation bilaterally Cardio Palpation: normal PMI Heart sounds: S1 normal heart sound present, S2 normal heart sound present, no gallops, no murmurs and no rubs GI Palpation (GI): Soft to palpation Back/Spine/Pelvis Other: unremarkable Skin General skin exam: no rashes or lesions noted Neuro General: patient oriented x3 Extrem General: Yes normal to inspection Psych Mental Status: mental status grossly normal Assessment & Plan Assessment & Plan (1) NICM (nonischemic cardiomyopathy): Code(s): I42.8 - Other cardiomyopathies Category: Medical (2) LBBB (left bundle branch block): Code(s): I44.7 - Left bundle-branch block, unspecified Category: Medical (3) Cardiac resynchronization therapy defibrillator (PLANNING ASSOCIATE-D) in place: Onset Date: ~06/2023 Code(s): Z95.810 - Presence of automatic (implantable) cardiac defibrillator Category: Medical Plan In the most recent echocardiogram, LVEF is 30-35%. Previously, in a similar range. In 2017, about 45-50%. Cardiac catheterization shows normal coronary arteries. Overall, nonischemic cardiomyopathy related to left bundle-branch block. For medications, she remains on metoprolol ER. Instead of losartan, switch to Entresto. Try spironolactone as well. On low-dose Lasix. Not clear if she will tolerate Farxiga but that will be the next choice. Check labs in a few days after the med changes. Bi V ICD is being followed on remote monitoring. With regard to the vertebral artery dissection history, referred to vascular. Message also sent. Orders: Orders Basic Metabolic Panel 1 Week I42.8 - Other cardiomyopathies B Type Natriuretic Peptide 1 Week I42.8 - Other cardiomyopathies Medications: New sacubitril-valsartan 24-26 mg (Entresto) 1 tab PO BID 180 tabs 3RF 90 days spironolactone 25 mg PO DAILY 90 tabs 3RF Discontinued losartan Discontinued Reason: Doctor's Order 25 mg PO DAILY 90 tabs 3RF Coding Level of Care Code Est Pt Level 4 (23987) Diagnoses NICM (nonischemic cardiomyopathy) I42.8 LBBB (left bundle branch block) I44.7 Cardiac resynchronization therapy defibrillator (PLANNING ASSOCIATE-D) in place Z95.810
== END 2024-03-11 15:32 | disposition home or self-care (01) ==
PROVIDERS: PCP General Practice; Visit Provider Internal Medicine Cardiovascular Disease
DX: I42.8 Other cardiomyopathies (principal); I44.7 Left bundle-branch block, unspecified; Z95.810 Presence of automatic (implantable) cardiac defibrillator
CPT/HCPCS: 99214

== ENCOUNTER → 2024-03-11 15:06 | Outpatient (BNVA) | payer OTHER, SELFPAY | PROVIDERS: PCP General Practice; Visit Provider Internal Medicine Cardiovascular Disease | DX: I42.8 Other cardiomyopathies (principal); I44.7 Left bundle-branch block, unspecified; Z95.810 Presence of automatic (implantable) cardiac defibrillator | CPT/HCPCS: 99212 ==

== ENCOUNTER → 2024-03-18 23:59 | Outpatient (BNV) | payer OTHER, SELFPAY ==
--- NOTE | 2024-03-24 20:45 | MHC.OFFVIS ---
Intake Visit Reasons: REmote ICD check- [facility] Allergies lisinopril Allergy (Verified 12/16/23 09:55) Cough ham Allergy (Uncoded 12/16/23 09:55) hives [facility] Medical History Invasive ductal carcinoma of left breast (~02/2022) Cardiac resynchronization therapy defibrillator (RECREATIONAL AIDE-D) in place (~06/2023) NICM (nonischemic cardiomyopathy) LBBB (left bundle branch block) Hypertension Hypercholesteremia COPD (chronic obstructive pulmonary disease) Anemia Bipolar 1 disorder Surgical History History of cardiac defibrillator placement (~2022) History of cardiac cath (~2021) History of left breast biopsy (~2021) History of lumpectomy of left breast (~2021) History of hysterectomy (~2021) History of foot surgery (~2006) Family History Maternal Aunt Lupus Mother Breast cancer Social History Household Members: None Housing: Apartment Are you a primary rn complex care to a significant other at home: No Do you presently have visiting nurse or other home services: No Alcohol intake: never Patient Tobacco Use Status: Former Tobacco user Quit Date: 8 yrs ago Tobacco use type: Cigarette service: No 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al status: disabled 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 [id number] Cardiac Interrogation, implant defibrillator w/interim Procedure code (CPT) selection complete Assessment & Plan Assessment & Plan (1) NICM (nonischemic cardiomyopathy): Code(s): I42.8 - Other cardiomyopathies Category: Medical Plan x Coding Level of Care Code Procedure Only Diagnoses NICM (nonischemic cardiomyopathy) I42.8 CPT Codes Cardiac Device Check - Cardiac Device 13: [id number] Cardiac Interrogation, implant defibrillator w/interim ([id number])
== END ==
PROVIDERS: PCP General Practice; Visit Provider Internal Medicine
DX: I42.8 Other cardiomyopathies (principal); Z95.810 Presence of automatic (implantable) cardiac defibrillator
CPT/HCPCS: 93295

== ENCOUNTER 2024-03-30 09:24 | Outpatient (AMB) | payer OTHER, SELFPAY ==
[2024-03-30 09:37] VITALS: BP 110/64; PULSE 82; O2SAT 97; BMI 33.2
--- NOTE | 2024-03-30 09:37 | A.OFFVIS_ITS ---
Vital Signs 03/30/24 09:37 Height 4 ft 11 in Weight 164 lb 8 oz BMI 33.2 BP 110/64 Blood Pressure Location Rt brachial Position Sitting Pulse 82 Pulse Source Pulse Oximeter Pulse Oximetry (%) 97 Oxygen Delivery Method Room Air Intake Visit Reasons: Shortness of breath Allergies lisinopril Allergy (Verified 03/30/24 09:39) Cough ham Allergy (Uncoded 03/30/24 09:39) hives HPI HPI Shortness of breath: Details: Renita is a very pleasant 53 year old female, former smoker with approximate 20 pack year history, quit 5 years ago, with underlying COPD, nonischemic cardiomyopathy related to left bundle-branch block LVEF 32% s/p pacer and breast cancer s/p surgery and radiation of left breast last year, under the care of Dr. Ken. She continues to report dyspnea on exertion and has been using her nebulizer infrequently. Failed multiple inhalers including Advair, Incruse and Bevespi. She also reports occasional wheezing and dry cough. Since the last visit, she has had changes to her cardiac regimen. Recently her losartan was discontinued and has been maintained on metoprolol, lasix, spironolactone and entresto. Echo from February revealed unchanged LVEF of 30-35% and RVSP 26, nothing to suggest pulm HTN. Today she presents for routine follow up. [facility] Medical History Invasive ductal carcinoma of left breast (~02/2022) Cardiac resynchronization therapy defibrillator (SENIOR CYTOTECHNOLOGIST-D) in place (~06/2023) NICM (nonischemic cardiomyopathy) LBBB (left bundle branch block) Hypertension Hypercholesteremia COPD (chronic obstructive pulmonary disease) Anemia Bipolar 1 disorder Surgical History History of cardiac defibrillator placement (~2022) History of cardiac cath (~2021) History of left breast biopsy (~2021) History of lumpectomy of left breast (~2021) History of hysterectomy (~2021) History of foot surgery (~2006) Family History Maternal Aunt Lupus Mother Breast cancer Social History Household Members: None Housing: Apartment Are you a primary medicare specialist to a significant other at home: No Do you presently have visiting nurse or other home services: No Alcohol intake: never Patient Tobacco Use Status: Former Tobacco user Tobacco use type: Cigarette service: No 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al status: disabled 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 Female Reproductive History Menstrual Age of Menarche: 12 Review of Systems Const Denies chills, Denies excessive sweating, Denies fever(s), Denies headache(s) and Denies night sweats Eyes Denies dry eyes, Denies irritation and Denies itchy eyes ENT Reports Normal hearing present, Denies headache(s), Denies nasal congestion, Denies nasal discharge, Denies post nasal drip and Denies sore throat Card Denies chest pain, Denies chest pain at rest, Denies chest pain with activity, Denies claudication, Reports leg edema, Reports dyspnea on exertion and Denies paroxysmal nocturnal dyspnea Resp Denies chest congestion, Reports cough, Denies excessive phlegm production, Denies pain on inspiration, Denies pain with cough, Reports dyspnea on exertion, Denies stridor and Reports wheezing Musc Denies myalgias Neuro Reports Normal hearing present and Denies headache(s) Endo Denies excessive sweating [place]/Lymph Denies lymphadenopathy Aller/Immun Denies itchy eyes, Denies seasonal rhinorrhea and Reports wheezing Physical Exam Vital Signs: Last Vital Signs Pulse 82 03/30/24 09:37 BP 110/64 03/30/24 09:37 Pulse Ox 97 03/30/24 09:37 Oxygen Delivery Method Room Air 03/30/24 09:37 BMI result Body Mass Index 33.2 Const General: cooperative, healthy appearing, comfortable, no acute distress, well developed and alert Nutritional Appearance: obese Orientation/consciousness: patient oriented x3 Limitations: no limitations HEENT Head: Yes normal to inspection, Yes normocephalic and Yes atraumatic Ears: hearing grossly normal bilaterally and external ears normal Eyes General: appearance normal, both eyes and all related structures Eyelids: Yes eyelids normal Sclerae: sclerae normal EOM: EOMs intact bilaterally Neck Neck: Yes normal visual inspection and Yes no lymphadenopathy Lymphatic: no lymphadenopathy noted Chest Chest palpation & inspection: normal inspection of the chest Resp Effort & Inspection: normal respiratory effort, able to speak in complete sentences, no audible wheezes, no cough, no stridor, not tachypneic, no tripod positioning and no use of accessory muscles Auscultation: clear to auscultation bilaterally Cardio Jugular venous distension: no JVD Rate: regular rate Rhythm: regular rhythm Skin Other: warm, dry General skin exam: no rashes or lesions noted Neuro General: patient oriented x3 Cranial nerves: Yes Normal hearing present Cognition (Neuro): normal cognition Gait exam (Neuro): Normal gait present Extrem General: Yes normal to inspection, Yes capillary refill normal, Yes no clubbing, cyanosis or edema and Yes no pedal edema Psych Appearance: grossly normal and well kempt Speech and movement: Normal speech and movement present and Clear speech present Affect: normal affect Attitude: cooperative Thought process: Normal thought process present Thought content: Normal thought content present Insight: Good insight present (Psych) Judgement: Good judgement present (Psych) Assessment & Plan Assessment & Plan (1) COPD (chronic obstructive pulmonary disease): Code(s): J44.9 - Chronic obstructive pulmonary disease, unspecified Category: Medical (2) Dyspnea on exertion: Code(s): R06.09 - Other forms of dyspnea Category: Medical (3) NICM (nonischemic cardiomyopathy): Code(s): I42.8 - Other cardiomyopathies Category: Medical (4) Multiple pulmonary nodules: Code(s): R91.8 - Other nonspecific abnormal finding of lung field Category: Medical Plan Renita's symptoms are likely multifactorial with major cardiac contribution. She recently had changes to her cardiac regimen in hopes to improve function. At this time, recommended using duoneb daily to gauge in symptoms improve, as she had not been using regularly and has failed multiple inhalers. Will follow up in three months or sooner if needed. All questions were answered and patient is in agreement of plan. Medications: Refilled ipratropium-albuterol 0.5 mg-3 mg(2.5 mg base)/3 mL 3 mL inhalation Q6H PRN 90 mL 3RF wheezing Coding Level of Care Code Est Pt Level 3 (02120) Diagnoses COPD (chronic obstructive pulmonary disease) J44.9 Dyspnea on exertion R06.09 NICM (nonischemic cardiomyopathy) I42.8 Multiple pulmonary nodules R91.8
== END 2024-03-30 10:10 | disposition home or self-care (01) ==
PROVIDERS: PCP General Practice; Visit Provider Nurse Practitioner Family
DX: J44.9 Chronic obstructive pulmonary disease, unspecified (principal); R06.09 Other forms of dyspnea; I42.8 Other cardiomyopathies; R91.8 Other nonspecific abnormal finding of lung field
CPT/HCPCS: 99213

== ENCOUNTER → 2024-03-30 09:24 | Outpatient (BNVA) | payer OTHER, SELFPAY | PROVIDERS: PCP General Practice; Visit Provider Nurse Practitioner Family | DX: J44.9 Chronic obstructive pulmonary disease, unspecified (principal); R06.09 Other forms of dyspnea; I42.8 Other cardiomyopathies; R91.8 Other nonspecific abnormal finding of lung field | CPT/HCPCS: 99212 ==

== ENCOUNTER 2024-04-16 10:28 | Outpatient (REF) | payer OTHER, SELFPAY ==
[2024-04-16 12:04] LABS: B Type Natriuretic Peptide 10 pg/mL (<100)
[2024-04-16 12:17] LABS: Anion Gap 12 (12-20); Blood Urea Nitrogen 16 mg/dL (9-16); Calcium 10.1 mg/dL (8.4-10.2); Carbon Dioxide 29 mmol/L (22-29); Chloride 105 mmol/L (96-108); Estimated Glomerular Filt Rate > 60; Glucose Random 102 mg/dL (60-115); Sodium 142 mmol/L (135-145)
== END 2024-04-16 10:29 | disposition home or self-care (01) ==
LOC: HO.HHCL 10:28
PROVIDERS: Internal Medicine; Visit Provider General Practice
DX: I42.8 Other cardiomyopathies (principal); I77.74 Dissection of vertebral artery
CPT/HCPCS: 36415; 80048; 83880

== ENCOUNTER 2024-05-17 13:24 | Outpatient (REF) | payer OTHER, SELFPAY ==
--- NOTE | ~2024-05-17 | CT_ITS ---
EXAMINATION: CT ANGIOGRAM HEAD AND NECK CLINICAL INFORMATION: 53-year-old with worsening pulsatile tinnitus and headaches. COMPARISON: None available. TECHNIQUE: Volumetric CT angiography of the head and neck was performed from the upper thorax to the skull vertex utilizing the bolus intravenous administration of 85 mL of Omnipaque 350 contrast material. 2D multiplanar reconstructions and 3D MIP renderings were performed either on an independent workstation or at the CT console workstation. Precontrast and delayed postcontrast imaging of the head was also done. The degree of stenosis determined by NASCET criteria. This CT examination was performed using dose optimization techniques as appropriate, variously including the following: *Automated exposure control *Adjustment of mA and/or kV according to patient size (this includes techniques or standardized protocols for targeted exams where dose is matched to indication/reason for exam; i.e. extremities or head) *Use of iterative reconstruction technique DLP: 2134 mGy-cm FINDINGS: The brain is normal in morphology and attenuation. There is no intracranial hemorrhage, extra-axial fluid collection, space-occupying process, or mass effect. Long-white matter interface is preserved. No acute territorial infarct. No abnormal intracranial enhancement. The ventricular system and subarachnoid spaces are within normal limits. Thin-section imaging demonstrates no evidence for an enhancing retrotympanic mass on either side. There is normal opacification of the major dural venous sinuses and jugular bulbs. The visualized orbital soft tissue structures are unremarkable. Extracranial soft tissue structures are within normal limits. The calvarium is intact and the bony skull base is grossly unremarkable. CT NECK AND UPPER CHEST: Limited assessment. Minor mucosal thickening left maxillary sinus. No acute process. Visualized mediastinum demonstrates a single small calcified lymph node in the prevascular space of the anterior mediastinum which is nonspecific. Visualized lung parenchyma demonstrates no acute process. There is a 4 mm densely calcified nodule in the medial aspect of the left lung apex. Possible remote granulomatous disease. CTA NECK/CHEST: Limited visualization of the upper thoracic aorta and great vessels partly due to streak artifact from dense contrast material in the right subclavian and innominate vein. Visualized thoracic aorta is normal in caliber. There is a three-vessel arch configuration. There are calcified plaques in the proximal left subclavian artery with a moderate degree of luminal diameter reduction. There is calcified plaque at the origin of the left common carotid artery with moderate stenosis at the origin. There is calcified plaque at the origin of the innominate artery with mild luminal narrowing. The right subclavian artery origin is obscured by artifact and is not evaluated. Right common carotid artery is normal in caliber. The vertebral arteries are patent with the right being dominant, without significant focal stenosis or segmental occlusion. There is mild atheromatous luminal irregularity in the proximal aspect of the left vertebral artery with [id number] luminal narrowing. Right Carotid: There is moderately extensive partially calcified plaque at the carotid bifurcation and proximal right ICA. There is approximately 90% diameter reduction stenosis in the proximal right ICA. More distally in the proximal ICA, there is mild stenosis of less than 50%. Distal to this, there is a smoothly contoured ICA which is normal in caliber with a tonsillar loop just below the skull base. The ECA is patent but most likely stenotic at its origin. Left Carotid: Scattered foci of partially calcified atheromatous plaque are seen within the mid left common carotid artery with less than 50% diameter reduction stenosis. More distally, there is fairly extensive partially calcified plaque at the left carotid bifurcation and proximal left ICA. There is approximately 70% diameter reduction stenosis by NASCET criteria. Distal to this, the ICA demonstrates a tonsillar loop but is otherwise normal in caliber and smoothly contoured. The ECA is patent. CTA HEAD: The intracranial ICAs are patent without significant focal stenosis or segmental occlusion. Minimal calcified plaque at the right carotid siphon. The A1 and A2 segments, M1 segments, MCA bifurcations and M2 branches appear patent. The anterior communicating artery is not well visualized. The left posterior communicating artery is visualized and is unremarkable. The intradural vertebral arteries are patent with the right being dominant without significant stenosis. The basilar artery is patent and normal in caliber. The superior cerebellar and posterior cerebral arteries are patent and normal in caliber. No abnormal vascularity is seen in the posterior fossa. Specifically, there is no evidence for dural arteriovenous malformation. CT/CT angio head neck IMPRESSION: 1. Partially calcified atheromatous plaque at both carotid bifurcations and proximal ICAs, as described above, with approximately 90% diameter reduction stenosis in the proximal right ICA and 70% diameter reduction stenosis in the proximal left ICA. 2. Unremarkable intracranial arterial circulation. No evidence for arteriovenous malformation. 3. Normal appearance to the brain without acute process or mass effect. 4. Calcified nodule left lung apex and a calcified lymph node in the anterior mediastinum consistent with remote granulomatous disease. 5. Note that there is some limitation on the CTA of the neck due to streak artifact from dense contrast material in the right subclavian and innominate veins. The right subclavian origin is not evaluated. There is suspicion for moderate stenosis of the proximal left subclavian artery and left common carotid artery origin, but these are not well evaluated on this exam.
--- NOTE | ~2024-05-17 | CT_ITS ---
EXAMINATION: CT CHEST WITHOUT CONTRAST CLINICAL INFORMATION: Follow-up lung nodules including right lung groundglass nodule COMPARISON: None available. TECHNIQUE: Multidetector volumetric CT imaging of the chest was done. Axial MIP volume rendering provided. Sagittal and coronal reformatted images were obtained. This CT examination was performed using dose optimization techniques as appropriate, variously including the following: *Automated exposure control *Adjustment of mA and/or kV according to patient size (this includes techniques or standardized protocols for targeted exams where dose is matched to indication/reason for exam; i.e. extremities or head) *Use of iterative reconstruction technique DLP: 270 mGy-cm FINDINGS: LUNGS: A small fibrotic scar is seen at posterior border of left lung apex, unchanged. Another stable branching linear fibrotic scar is seen attached to medial pleural border of right upper lobe apical and posterior segment. There is also unchanged 2 mm calcified granuloma at posterior medial right lower lobe posterior basal segment, series 7 image #306. The previously reported posterior subpleural groundglass opacity in the right lower lobe posterior basal segment has resolved. -Nodule #1 (Series 7, image 209): 2.7 mm solid juxtapleural nodule, lateral pleural border of left lower lobe superior segment, previously 3.0 mm. PLEURA: No pleural effusion or pneumothorax is seen. PERICARDIUM: No pericardial effusion is seen. MEDIASTINUM AND MAXI: No abnormally enlarged mediastinal or hilar lymph nodes are seen. TRACHEOBRONCHIAL TREE: Trachea and bilateral mainstem bronchi are patent. THORACIC AORTA: The thoracic aorta is normal in size with scattered atherosclerotic calcifications. CORONARY ARTERY CALCIFICATIONS: Absent PULMONARY ARTERIES: The main pulmonary arteries show normal enhancement. CHEST WALL AND LOWER NECK: Left upper chest subcutaneous combined implantable cardiac defibrillator/pacemaker is seen with triple chamber approach left brachiocephalic pacemaker wires ending in right atrium and coronary sinus, defibrillator wire ending in right ventricle. The subcutaneous and muscular chest wall are intact with no focal lesion. No abnormal mass lesion could be seen in the visualized lower neck. BONES: No fracture or dislocation. No focal bone lesion diagnostic of metastatic disease could be seen in the thorax. VISUALIZED UPPER ABDOMEN: Bilateral adrenal glands are not enlarged. Lateral upper right renal cortical simple cyst is seen measuring 1.7 cm in diameter, mean attenuation of 10.8 Hounsfield units, for which no follow up imaging is recommended. CT/CT chest wo IV con IMPRESSION: 1. Interval resolution of previously reported posterior subpleural groundglass opacity in the right lower lobe posterior basal segment. 2. Stable 2.7 mm solid juxtapleural nodule, lateral pleural border of left lower lobe superior segment. 3. Stable 2 mm calcified granuloma at posterior medial right lower lobe posterior basal segment. 4. Stable small fibrotic scars at posterior border of left lung apex and right upper lobe apical and posterior segment. 5. No interval change in position of Left upper chest subcutaneous combined implantable cardiac defibrillator/pacemaker with triple chamber approach left brachiocephalic pacemaker wires ending in right atrium and coronary sinus, defibrillator wire ending in right ventricle. According to the UPDATED 2017 Fleischner Society recommendations, the advised follow-up imaging for solid nodules <6 mm in the middle/lower lobes is no routine follow up. Fleischner guidelines were followed.
[2024-05-17] MEDS: iohexoL 350 MG/ML 100 ML INFUS..BTL 70 ML IV (14:08)
== END 2024-05-17 13:25 | disposition home or self-care (01) ==
LOC: HO.CT 13:24
PROVIDERS: PCP General Practice; Visit Provider General Practice
DX: I77.74 Dissection of vertebral artery (principal); R91.8 Other nonspecific abnormal finding of lung field; H93.13 Tinnitus, bilateral
CPT/HCPCS: 70496; 70498; 71250; Q9967

== ENCOUNTER 2024-05-26 11:30 | Outpatient (RCR) | payer OTHER, SELFPAY | END 2024-08-11 12:40 | disposition home or self-care (01) | LOC: HO.CR 11:30 | PROVIDERS: PCP General Practice; Visit Provider Internal Medicine | DX: I42.8 Other cardiomyopathies (principal); I50.22 Chronic systolic (congestive) heart failure | CPT/HCPCS: 93798 ==

== ENCOUNTER 2024-05-31 12:31 | Outpatient (AMB) | payer OTHER, SELFPAY ==
[2024-05-31 12:48] VITALS: BP 94/56; PULSE 80; BMI 33.7
--- NOTE | 2024-05-31 12:48 | MHC.OFFVIS ---
Vital Signs 05/31/24 12:48 Height 4 ft 11 in Weight 166 lb 10.711 oz BMI 33.7 BP 94/56 L Blood Pressure Location Lt brachial Position Sitting Pulse 80 Pulse Source Pulse Oximeter Intake Visit Reasons: f/up and st jesse Captain Assistant Required: No Accompanied by: Self / Same As Patient Allergies lisinopril Allergy (Verified 03/30/24 09:39) Cough ham Allergy (Uncoded 03/30/24 09:39) hives Medication List - Last Reconciled 05/31/24 by Jonah Darling MD acetaminophen (Tylenol Extra Strength) 500 mg PO Q6H PRN albuterol sulfate 90 mcg/actuation (ProAir HFA) 1 inh inhalation QID atorvastatin 80 mg PO DAILY cholecalciferol (vitamin D3) (Vitamin D3) 50 mcg PO QAM ferrous sulfate (FeroSul) 325 mg PO Q OTHER DAY furosemide (Lasix) 20 mg PO DAILY ibuprofen 800 mg PO Q8H ipratropium-albuterol 0.5 mg-3 mg(2.5 mg base)/3 mL 3 mL inhalation Q6H PRN metoprolol succinate ER 25 mg PO QAM pantoprazole 40 mg PO DAILY sacubitril-valsartan 24-26 mg (Entresto) 1 tab PO BID 90 days spironolactone 25 mg PO DAILY HPI Comments Details: Renita returns for follow-up regarding cardiomyopathy as well as left bundle-branch block. In 2022, he had verterbral artery dissection and was admitted to [facility] and then sent to rehab. Was on anti-coagulation, but then stopped. Otherwise, she has history of breast cancer and underwent surgery and radiation. Various complaints including shortness of breath, tiredness, palpitations at different times. She also underwent Bi V ICD placement but she still has the same complaints and hence not clear how much it is truly related to the cardiomyopathy. Her last cardiac BNP is only 10 which argues against any significant cardiac components of her symptoms. [facility] Medical History Invasive ductal carcinoma of left breast (~02/2022) Cardiac resynchronization therapy defibrillator (BRUSH CUTTER-D) in place (~06/2023) NICM (nonischemic cardiomyopathy) LBBB (left bundle branch block) Hypertension Hypercholesteremia COPD (chronic obstructive pulmonary disease) Anemia Bipolar 1 disorder Surgical History (Reviewed 05/31/24 @ 12:51 by Jinny Haddad 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) History of cardiac defibrillator placement (~2022) History of cardiac cath (~2021) History of left breast biopsy (~2021) History of lumpectomy of left breast (~2021) History of hysterectomy (~2021) History of foot surgery (~2006) Family History (Reviewed 03/11/24 @ 15:14 by Suzan Fitzpatrick 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) Maternal Aunt Lupus Mother Breast cancer Social History (Reviewed 05/31/24 @ 12:51 by Jinny Haddad 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) Household Members: None Housing: Apartment Are you a primary healthcare representative to a significant other at home: No Do you presently have visiting nurse or other home services: No Alcohol intake: never Patient Tobacco Use Status: Former Tobacco user Tobacco use type: Cigarette service: No 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al status: disabled 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 Female Reproductive History Menstrual Age of Menarche: 12 Review of Systems Const Denies chills, Denies fatigue, Denies fever(s), Denies weight gain and Denies weight loss ENT Denies dizziness Card Denies chest pain, Denies leg edema, Denies lightheadedness, Reports palpitations, Reports dyspnea, Denies dyspnea on exertion, Denies orthopnea and Denies other Resp Denies cough, Reports dyspnea and Denies dyspnea on exertion GI Denies hematochezia and Denies change in stool character Musc Denies abnormal gait, Denies muscle weakness, Denies numbness, Denies radiating pain into limb and Denies tingling Neuro Denies abnormal gait, Denies dizziness, Denies numbness and Denies tingling Endo Denies fatigue and Reports palpitations Physical Exam Vital Signs: Last Vital Signs Pulse 80 05/31/24 12:48 BP 94/56 L 05/31/24 12:48 BMI result Body Mass Index 33.7 Const General: comfortable and no acute distress Orientation/consciousness: patient oriented x3 HEENT Other: Unremarkable Head: Yes normal to inspection Neck Neck: Yes normal visual inspection Chest Chest palpation & inspection: normal inspection of the chest Resp Auscultation: clear to auscultation bilaterally Cardio Palpation: normal PMI Heart sounds: S1 normal heart sound present, S2 normal heart sound present, no gallops, no murmurs and no rubs GI Palpation (GI): Soft to palpation Back/Spine/Pelvis Other: unremarkable Skin General skin exam: no rashes or lesions noted Neuro General: patient oriented x3 Extrem General: Yes normal to inspection Psych Mental Status: mental status grossly normal Office Procedures Cardiac Device Check Cardiac Device Check Details: ICD interrogated today. Biventricular device. Battery status 6.9 years. Normal lead parameters. Atrial pacing 7%. Biventricular pacing 99%. No significant arrhythmias. No shocks delivered. Overall, normal device function. [id number] Cardiac Device Check, multi lead implantable defibrillator Procedure code (CPT) selection complete Assessment & Plan Assessment & Plan (1) NICM (nonischemic cardiomyopathy): Code(s): I42.8 - Other cardiomyopathies Category: Medical (2) LBBB (left bundle branch block): Code(s): I44.7 - Left bundle-branch block, unspecified Category: Medical (3) Cardiac resynchronization therapy defibrillator (BRUSH CUTTER-D) in place: Onset Date: ~06/2023 Code(s): Z95.810 - Presence of automatic (implantable) cardiac defibrillator Category: Medical Plan In the most recent echocardiogram, LVEF is 30-35%. Previously, in a similar range. In 2017, about 45-50%. Cardiac catheterization shows normal coronary arteries. Overall, nonischemic cardiomyopathy related to left bundle-branch block. Last cardiac BNP is only 10 and hence highly doubt any significant cardiac component for her shortness of breath and other symptoms. For medications, she can stay on the current regimen of metoprolol ER, Entresto, spironolactone. She is already complaining of dizziness and hence may not be able tolerate Farxiga or Jardiance. She is on a small dose of diuretics as well. Bi V ICD is functioning normally. Due to complaints of frequent palpitations, we will check a Holter monitor as well as nothing is picked up on the ICD. Unclear if she is just having any isolated ectopic beats. In the faxed rhythm strips from cardiac rehab, suspect there is just some combination of [place] QRS complexes showing left bundle-branch block and some paced rhythm. No clear PVCs or other arrhythmias. Orders: Orders ECG 3 day holter monitor Today I42.8 - Other cardiomyopathies Coding Level of Care Code Est Pt Level 4 (42515) Diagnoses NICM (nonischemic cardiomyopathy) I42.8 LBBB (left bundle branch block) I44.7 Cardiac resynchronization therapy defibrillator (BRUSH CUTTER-D) in place Z95.810 CPT Codes Cardiac Device Check - Cardiac Device 6: [id number] Cardiac Device Check, multi lead implantable defibrillator ([id number])
== END 2024-05-31 13:03 | disposition home or self-care (01) ==
PROVIDERS: PCP General Practice; Visit Provider Internal Medicine
DX: I42.8 Other cardiomyopathies (principal); I44.7 Left bundle-branch block, unspecified; Z95.810 Presence of automatic (implantable) cardiac defibrillator
CPT/HCPCS: 93284; 99214

== ENCOUNTER → 2024-05-31 12:31 | Outpatient (BNVA) | payer OTHER, SELFPAY | PROVIDERS: PCP General Practice; Visit Provider Internal Medicine | DX: I42.8 Other cardiomyopathies (principal); I44.7 Left bundle-branch block, unspecified; Z45.02 Encounter for adjustment and management of automatic implantable cardiac defibrillator | CPT/HCPCS: 99212 ==

== ENCOUNTER → 2024-06-21 08:44 | Outpatient (REF) | payer OTHER, SELFPAY ==
--- NOTE | 2024-06-21 08:47 | HM_ITS ---
* Total monitoring time 2 days. * Underlying rhythm is sinus with an average rate of 86/Min. About 21% of the time, rate > 100/Min. * No significant ectopy or tachyarrhythmias. * No significant pauses or AV blocks. * No patient markers or diary events. MTDD
== END ==
LOC: HO.CARD 08:44
PROVIDERS: PCP General Practice; Visit Provider Internal Medicine
DX: I42.8 Other cardiomyopathies (principal)
CPT/HCPCS: 93242

== ENCOUNTER → 2024-06-21 08:47 | Outpatient (BNV) | payer OTHER, SELFPAY | PROVIDERS: PCP General Practice; Visit Provider Internal Medicine | DX: R00.0 Tachycardia, unspecified (principal) | CPT/HCPCS: 93227 ==

== ENCOUNTER 2024-06-30 12:21 | Outpatient (RCR) | payer OTHER, SELFPAY | END 2024-08-11 12:41 | disposition home or self-care (01) | LOC: HO.CR 12:21 | PROVIDERS: PCP General Practice; Visit Provider General Practice | DX: I42.8 Other cardiomyopathies (principal) ==

== ENCOUNTER 2024-07-02 12:40 | Outpatient (REF) | payer OTHER, SELFPAY ==
--- NOTE | ~2024-07-02 | XR_ITS ---
EXAMINATION: XR chest 2V CLINICAL INFORMATION: productive cough, h/o COPD COMPARISON: Chest radiograph 10/03/2023 TECHNIQUE: 2 views of the chest FINDINGS: Clear lungs. No pneumothorax. No pleural effusion. Unchanged cardiomediastinal silhouette. Left chest wall pacemaker/AICD with leads projecting over the right atrium, right ventricle, and coronary sinus, unchanged in position. XR/XR chest 2V IMPRESSION: No acute cardiopulmonary findings. Electronically signed by: Selena Gaona MD 07/20/2024 04:33 PM EDT
== END 2024-07-02 12:41 | disposition home or self-care (01) ==
LOC: HO.HHCX 12:40
PROVIDERS: Visit Provider Emergency Medicine
DX: J44.1 Chronic obstructive pulmonary disease with (acute) exacerbation (principal); R05.2 Subacute cough
CPT/HCPCS: 71046

== ENCOUNTER 2024-07-06 11:03 | Outpatient (AMB) | payer OTHER, SELFPAY ==
--- NOTE | 2024-07-06 11:06 | MHC.OFFVIS ---
Vital Signs 07/06/24 11:08 Height 4 ft 11 in Weight 165 lb BMI 33.3 BP 118/64 Blood Pressure Location Rt brachial Position Sitting Pulse 70 Pulse Source Pulse Oximeter Pulse Oximetry (%) 96 Oxygen Delivery Method Room Air Intake Visit Reasons: pulmonary nodule Allergies lisinopril Allergy (Verified 07/06/24 11:10) Cough ham Allergy (Uncoded 07/06/24 11:10) hives HPI HPI pulmonary nodule: Details: Renita is a very pleasant 53 year old female, former smoker with approximate 20 pack year history, quit 5 years ago, with underlying COPD, nonischemic cardiomyopathy related to left bundle-branch block LVEF 32% s/p pacer and breast cancer s/p surgery and radiation of left breast last year, under the care of Dr. Ken. She continues to report suboptimal relief with Symbicort. Failed multiple inhalers including Advair, Incruse and Bevespi. She recently was admitted to [facility] for COPD exacerbation 06/24- 06/26. Records not available today. She continues to report chest congestion, productive cough with difficulty expectorating. She feels partially relieved since being discharged from [facility]. She denies any fevers or chills since being discharged. She has been using her nebulizer with minimal relief. [facility] Medical History Invasive ductal carcinoma of left breast (~02/2022) Cardiac resynchronization therapy defibrillator (BOX OFFICE AGENT-D) in place (~06/2023) NICM (nonischemic cardiomyopathy) LBBB (left bundle branch block) Hypertension Hypercholesteremia COPD (chronic obstructive pulmonary disease) Anemia Bipolar 1 disorder Surgical History History of cardiac defibrillator placement (~2022) History of cardiac cath (~2021) History of left breast biopsy (~2021) History of lumpectomy of left breast (~2021) History of hysterectomy (~2021) History of foot surgery (~2006) Family History Maternal Aunt Lupus Mother Breast cancer Social History Household Members: None Housing: Apartment Are you a primary summer child caregiver to a significant other at home: No Do you presently have visiting nurse or other home services: No Alcohol intake: never Patient Tobacco Use Status: Former Tobacco user Tobacco use type: Cigarette service: No 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al status: disabled 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 Female Reproductive History Menstrual Age of Menarche: 12 Review of Systems Const Denies chills, Denies excessive sweating, Denies fever(s), Denies headache(s) and Denies night sweats Eyes Denies dry eyes, Denies irritation and Denies itchy eyes ENT Reports Normal hearing present, Denies headache(s), Denies nasal congestion, Denies nasal discharge, Denies post nasal drip and Denies sore throat Card Denies chest pain, Denies chest pain at rest, Denies chest pain with activity, Denies claudication, Reports leg edema, Reports dyspnea on exertion and Denies paroxysmal nocturnal dyspnea Resp Reports cough, Denies excessive phlegm production, Denies pain on inspiration, Denies pain with cough, Reports dyspnea on exertion, Denies stridor and Reports wheezing Musc Denies myalgias Neuro Reports Normal hearing present and Denies headache(s) Endo Denies excessive sweating [place]/Lymph Denies lymphadenopathy Aller/Immun Denies itchy eyes, Denies seasonal rhinorrhea and Reports wheezing Physical Exam Vital Signs: Last Vital Signs Pulse 70 07/06/24 11:08 BP 118/64 07/06/24 11:08 Pulse Ox 96 07/06/24 11:08 Oxygen Delivery Method Room Air 07/06/24 11:08 BMI result Body Mass Index 33.3 Const General: cooperative, no acute distress, well developed and alert Nutritional Appearance: obese Orientation/consciousness: patient oriented x3 Limitations: no limitations HEENT Head: Yes normal to inspection, Yes normocephalic and Yes atraumatic Ears: hearing grossly normal bilaterally and external ears normal Eyes General: appearance normal, both eyes and all related structures Eyelids: Yes eyelids normal Sclerae: sclerae normal EOM: EOMs intact bilaterally Neck Neck: Yes normal visual inspection and Yes no lymphadenopathy Lymphatic: no lymphadenopathy noted Chest Chest palpation & inspection: normal inspection of the chest Resp Other: wet harsh cough throughout visit with coarse rhonchi and faint expiratory wheezes throughout Effort & Inspection: normal respiratory effort, able to speak in complete sentences, no audible wheezes, no stridor, not tachypneic, no tripod positioning and no use of accessory muscles Cardio Jugular venous distension: no JVD Rate: regular rate Rhythm: regular rhythm Skin Other: warm, dry General skin exam: no rashes or lesions noted Neuro General: patient oriented x3 Cranial nerves: Yes Normal hearing present Cognition (Neuro): normal cognition Gait exam (Neuro): Normal gait present Extrem General: Yes normal to inspection, Yes capillary refill normal, Yes no clubbing, cyanosis or edema and Yes no pedal edema Psych Appearance: grossly normal and well kempt Speech and movement: Normal speech and movement present and Clear speech present Affect: normal affect Attitude: cooperative Thought process: Normal thought process present Thought content: Normal thought content present Insight: Good insight present (Psych) Judgement: Good judgement present (Psych) Office Procedures Nebulizer Treatment Nebulizer Treatment [id number] RX initial, or Nebulizer Subsequent Treatment Office Meds ipratropium 0.5 mg-albuterol 3 mg (2.5 mg base)/3 mL nebulization soln Performing Provider: Sandy Shah NP Performing Location: [facility] [place] [facility] Administered by: Kristin Putnam LPN on 07/06/24 11:55 Dose Route Admin Location Dispensed Lot Number Expiration Date [facility] [employer] 3 mL inhalation 3 mL [id number] 01/24/26 17044-489-82 [employer] Assessment & Plan Assessment & Plan (1) COPD (chronic obstructive pulmonary disease): Code(s): J44.9 - Chronic obstructive pulmonary disease, unspecified Category: Medical (2) Dyspnea on exertion: Code(s): R06.09 - Other forms of dyspnea Category: Medical (3) NICM (nonischemic cardiomyopathy): Code(s): I42.8 - Other cardiomyopathies Category: Medical (4) Multiple pulmonary nodules: Code(s): R91.8 - Other nonspecific abnormal finding of lung field Category: Medical Plan Will treat patient with levaquin given persistent bronchitic symptoms as well as prednisone, minimal improvement after neb. Reviewed side effects including risk of tendon rupture. If no better will send for CXR. Will trial Breztri as suboptimal effect with symbicort. Patient requesting supplies for neb, will send. Will follow up in three months or sooner if needed. All questions were answered and patient is in agreement of plan. Orders: Orders AMB Nebulizer Treatment 07/06/24 J44.9 - Chronic obstructive pulmonary disease, unspecified Medications: New levofloxacin 750 mg PO DAILY 7 tabs 0RF [id number]-hjypvmoh-qekqmrjgrd 160-9-4.8 mcg/actuation (Breztri Aerosphere) 2 inhalations inhalation BID 1 ea 3RF prednisone see taper instructions; 40 mg Daily x3 days, 30 mg daily x3 days, 20 mg daily x3 days, 10 mg daily x3 days 10 mg PO DIRECTED 30 tabs 0RF Coding Level of Care Code Est Pt Level 4 (05657) Diagnoses COPD (chronic obstructive pulmonary disease) J44.9 Dyspnea on exertion R06.09 NICM (nonischemic cardiomyopathy) I42.8 Multiple pulmonary nodules R91.8 CPT Codes Nebulizer Treatment - Nebulizer Treatment, initial or subsequent: [id number]/[id number] RX initial, or Nebulizer Subsequent Treatment ([id number])
[2024-07-06 11:08] VITALS: BP 118/64; PULSE 70; O2SAT 96; BMI 33.3
== END 2024-07-06 11:48 | disposition home or self-care (01) ==
PROVIDERS: PCP General Practice; Visit Provider Nurse Practitioner Family
DX: J44.9 Chronic obstructive pulmonary disease, unspecified (principal); R06.09 Other forms of dyspnea; I42.8 Other cardiomyopathies; R91.8 Other nonspecific abnormal finding of lung field
CPT/HCPCS: 99214

== ENCOUNTER → 2024-07-06 11:03 | Outpatient (BNVA) | payer OTHER, SELFPAY | PROVIDERS: PCP General Practice; Visit Provider Nurse Practitioner Family | DX: J44.9 Chronic obstructive pulmonary disease, unspecified (principal); R06.09 Other forms of dyspnea; R91.8 Other nonspecific abnormal finding of lung field; I44.7 Left bundle-branch block, unspecified; I42.8 Other cardiomyopathies; Z87.891 Personal history of nicotine dependence | CPT/HCPCS: 94640; 99212 ==

== ENCOUNTER → 2024-07-13 23:59 | Outpatient (BNV) | payer OTHER, SELFPAY ==
--- NOTE | 2024-07-18 10:04 | MHC.OFFVIS ---
Intake Visit Reasons: Remote HF monitoring- [facility] Allergies lisinopril Allergy (Verified 07/06/24 11:10) Cough ham Allergy (Uncoded 07/06/24 11:10) hives [facility] Medical History Invasive ductal carcinoma of left breast (~02/2022) Cardiac resynchronization therapy defibrillator (FLORAL ASSISTANT-D) in place (~06/2023) NICM (nonischemic cardiomyopathy) LBBB (left bundle branch block) Hypertension Hypercholesteremia COPD (chronic obstructive pulmonary disease) Anemia Bipolar 1 disorder Surgical History History of cardiac defibrillator placement (~2022) History of cardiac cath (~2021) History of left breast biopsy (~2021) History of lumpectomy of left breast (~2021) History of hysterectomy (~2021) History of foot surgery (~2006) Family History (Reviewed 03/11/24 @ 15:14 by Suzan Fitzpatrick [facility]) Maternal Aunt Lupus Mother Breast cancer Social History Household Members: None Housing: Apartment Are you a primary customer care associate to a significant other at home: No Do you presently have visiting nurse or other home services: No Alcohol intake: never Patient Tobacco Use Status: Former Tobacco user Tobacco use type: Cigarette service: No 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al status: disabled 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 [id number] Cardiac Device Interrogation, cardio physiologic monitor Procedure code (CPT) selection complete Assessment & Plan Assessment & Plan (1) NICM (nonischemic cardiomyopathy): Code(s): I42.8 - Other cardiomyopathies Category: Medical Plan x Coding Level of Care Code Procedure Only Diagnoses NICM (nonischemic cardiomyopathy) I42.8 CPT Codes Cardiac Device Check - Cardiac Device 15: [id number] Cardiac Device Interrogation, cardio physiologic monitor ([id number])
== END ==
PROVIDERS: PCP General Practice; Visit Provider Internal Medicine
DX: I42.8 Other cardiomyopathies (principal); Z95.818 Presence of other cardiac implants and grafts
CPT/HCPCS: 93297

== ENCOUNTER 2024-07-15 10:20 | Outpatient (REF) | payer OTHER, SELFPAY ==
--- NOTE | ~2024-07-15 | MM_ITS ---
EXAMINATION: MM DIAGNOSTIC DIGITAL BREAST TOMOSYNTHESIS, BILATERAL CLINICAL INFORMATION: Postoperative protocol year 2 status post excision left IDC with conservation therapy Feb, 2022. Recent benign left stereotactic biopsy upper outer left breast 10/10/2022. Patient due for yearly. COMPARISON: Mammography: 07/14/2023, 08/28/2022, 01/14/2022, 11/26/2021, 12/25/2017, and dating back to 2017. Stereotactic biopsy left breast 10/10/2022, and 03/07/2022. TECHNIQUE: Digital breast tomosynthesis is performed in both the craniocaudal and mediolateral oblique views along with computer-aided detection (CAD). Synthesized 2D images are generated from the tomosynthesis. In addition to standard views, added full field left MLO view, full field 3-D left ML view, and spot magnification 2-D left CC x 1 and ML views x 2 were obtained of the left lumpectomy site. FINDINGS: There are scattered areas of fibroglandular density (ACR BI-RADS breast composition Category b). There are stable posttreatment changes in the upper outer left breast related to lumpectomy and radiation. No evidence of recurrence seen. There is a mini cork biopsy clip present in the upper inner left breast, with only a few tiny remaining surrounding punctate calcifications. No suspicious changes. The right breast demonstrates 3 stable oval small circumscribed nodules, presumably cysts, lymph nodes, or other benign entities, remaining unchanged from 11/26/2021. There are stable dermal calcifications in the far inferior slightly lateral right breast, and stable grouped dystrophic benign calcifications in the upper outer right breast, anterior one third. The parenchymal pattern of both breasts is unchanged from previous postoperative examinations. MM/MM tomosynthesis diagnostic BI IMPRESSION: There are no findings suspicious for malignancy in either breast. There are stable benign findings. Recommend the patient continue diagnostic mammography 12 months time to complete three-year postop protocol. ASSESSMENT: BI-RADS BI-RADS 2 - Benign Findings RECOMMENDATION: 1 year F/U Results were provided to the patient at time of visit by the technologist. This patient's information was entered into a reminder system with a target due date for their next mammogram. Electronically signed by: Amauri Lopez MD 07/15/2024 11:58 AM EDT
== END 2024-07-15 10:21 | disposition home or self-care (01) ==
LOC: HO.MAMMO 10:20
PROVIDERS: PCP General Practice; Visit Provider General Practice
DX: Z85.3 Personal history of malignant neoplasm of breast (principal)
CPT/HCPCS: 77062; 77066

== ENCOUNTER → 2024-07-15 11:00 | Outpatient (BNV) | payer OTHER, SELFPAY | PROVIDERS: PCP General Practice; Visit Provider Radiology Diagnostic Radiology | DX: Z85.3 Personal history of malignant neoplasm of breast (principal) | CPT/HCPCS: 77066; G0279 ==

== ENCOUNTER 2024-07-20 08:52 | Outpatient (AMB) | payer OTHER, SELFPAY ==
--- NOTE | 2024-07-20 08:27 | MHC.OFFVIS ---
Vital Signs 07/20/24 08:55 Height 4 ft 11 in Weight 166 lb 8 oz BMI 33.6 BP 118/60 Blood Pressure Location Rt brachial Position Sitting Pulse 89 Pulse Source Pulse Oximeter Pulse Oximetry (%) 96 Oxygen Delivery Method Room Air Intake Visit Reasons: pulmonary nodule Allergies lisinopril Allergy (Verified 07/20/24 08:58) Cough ham Allergy (Uncoded 07/20/24 08:58) hives HPI HPI pulmonary nodule: Details: Renita is a very pleasant 53 year old female, former smoker with approximate 20 pack year history, quit 5 years ago, with underlying COPD, nonischemic cardiomyopathy related to left bundle-branch block LVEF 32% s/p pacer and breast cancer s/p surgery and radiation of left breast last year, under the care of Dr. Ken. At the last visit, she was prescribed Levaquin for chest congestion, productive cough with difficulty expectorating. She reports resolution of bronchitic symptoms and continues with dyspnea on exertion and dry cough. She attributes some symptoms to allergies. Of note, she is under the care of cardiology and is in the process of initiating cardiac rehab. [facility] Medical History Invasive ductal carcinoma of left breast (~02/2022) Cardiac resynchronization therapy defibrillator (HEAT TREATMENT TECHNICIAN-D) in place (~06/2023) NICM (nonischemic cardiomyopathy) LBBB (left bundle branch block) Hypertension Hypercholesteremia COPD (chronic obstructive pulmonary disease) Anemia Bipolar 1 disorder Surgical History History of cardiac defibrillator placement (~2022) History of cardiac cath (~2021) History of left breast biopsy (~2021) History of lumpectomy of left breast (~2021) History of hysterectomy (~2021) History of foot surgery (~2006) Family History (Reviewed 03/11/24 @ 15:14 by Suzan Fitzpatrick [facility]) Maternal Aunt Lupus Mother Breast cancer Social History Household Members: None Housing: Apartment Are you a primary pharmacist critical care to a significant other at home: No Do you presently have visiting nurse or other home services: No Alcohol intake: never Patient Tobacco Use Status: Former Tobacco user Tobacco use type: Cigarette service: No 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al status: disabled 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 Female Reproductive History Menstrual Age of Menarche: 12 Review of Systems Const Denies chills, Denies excessive sweating, Denies fever(s), Denies headache(s) and Denies night sweats Eyes Denies dry eyes, Denies irritation and Denies itchy eyes ENT Reports Normal hearing present, Denies headache(s), Denies nasal congestion, Denies nasal discharge, Denies post nasal drip and Denies sore throat Card Denies chest pain, Denies chest pain at rest, Denies chest pain with activity, Denies claudication, Reports leg edema, Reports dyspnea on exertion and Denies paroxysmal nocturnal dyspnea Resp Reports cough, Denies excessive phlegm production, Denies pain on inspiration, Denies pain with cough, Reports dyspnea on exertion, Denies stridor and Reports wheezing Musc Denies myalgias Neuro Reports Normal hearing present and Denies headache(s) Endo Denies excessive sweating Franklin/Lymph Denies lymphadenopathy Aller/Immun Denies itchy eyes, Denies seasonal rhinorrhea and Reports wheezing Physical Exam Vital Signs: Last Vital Signs Pulse 89 07/20/24 08:55 BP 118/60 07/20/24 08:55 Pulse Ox 96 07/20/24 08:55 Oxygen Delivery Method Room Air 07/20/24 08:55 BMI result Body Mass Index 33.6 Const General: cooperative, no acute distress, well developed and alert Nutritional Appearance: obese Orientation/consciousness: patient oriented x3 Limitations: no limitations HEENT Head: Yes normal to inspection, Yes normocephalic and Yes atraumatic Ears: hearing grossly normal bilaterally and external ears normal Eyes General: appearance normal, both eyes and all related structures Eyelids: Yes eyelids normal Sclerae: sclerae normal EOM: EOMs intact bilaterally Neck Neck: Yes normal visual inspection and Yes no lymphadenopathy Lymphatic: no lymphadenopathy noted Chest Chest palpation & inspection: normal inspection of the chest Resp Effort & Inspection: normal respiratory effort, able to speak in complete sentences, no audible wheezes, no stridor, not tachypneic, no tripod positioning and no use of accessory muscles Auscultation: diminished lung sounds Cardio Jugular venous distension: no JVD Rate: regular rate Rhythm: regular rhythm Skin Other: warm, dry General skin exam: no rashes or lesions noted Neuro General: patient oriented x3 Cranial nerves: Yes Normal hearing present Cognition (Neuro): normal cognition Gait exam (Neuro): Normal gait present Extrem General: Yes normal to inspection, Yes capillary refill normal, Yes no clubbing, cyanosis or edema and Yes no pedal edema Psych Appearance: grossly normal and well kempt Speech and movement: Normal speech and movement present and Clear speech present Affect: normal affect Attitude: cooperative Thought process: Normal thought process present Thought content: Normal thought content present Insight: Good insight present (Psych) Judgement: Good judgement present (Psych) Assessment & Plan Assessment & Plan (1) COPD (chronic obstructive pulmonary disease): Code(s): J44.9 - Chronic obstructive pulmonary disease, unspecified Category: Medical (2) Dyspnea on exertion: Code(s): R06.09 - Other forms of dyspnea Category: Medical (3) NICM (nonischemic cardiomyopathy): Code(s): I42.8 - Other cardiomyopathies Category: Medical (4) Multiple pulmonary nodules: Code(s): R91.8 - Other nonspecific abnormal finding of lung field Category: Medical (5) Environmental allergies: Code(s): Z91.09 - Other allergy status, other than to drugs and biological substances Category: Medical Plan Advised to continue current regimen. Will send for RAST to assess for an allergic component. Will trial singulair and encouraged use of flonase. She is aware if symptoms do not improve to call. Will follow up in 4-6 weeks or sooner if needed. All questions were answered and patient is in agreement of plan. Orders: Orders Resp Allergy Profile Region I Today Z91.09 - Other allergy status, other than to drugs and biological substances Complete Blood Count Auto Diff Today Z91.09 - Other allergy status, other than to drugs and biological substances Immunoglobulin E Today Z91.09 - Other allergy status, other than to drugs and biological substances Medications: New montelukast (Singulair) 10 mg PO BEDTIME 30 tabs 0RF Coding Level of Care Code Est Pt Level 4 (12641) Diagnoses COPD (chronic obstructive pulmonary disease) J44.9 Dyspnea on exertion R06.09 NICM (nonischemic cardiomyopathy) I42.8 Multiple pulmonary nodules R91.8 Environmental allergies Z91.09
[2024-07-20 08:55] VITALS: BP 118/60; PULSE 89; O2SAT 96; BMI 33.6
== END 2024-07-20 09:20 | disposition home or self-care (01) ==
PROVIDERS: PCP General Practice; Visit Provider Nurse Practitioner Family
DX: J44.9 Chronic obstructive pulmonary disease, unspecified (principal); R06.09 Other forms of dyspnea; I42.8 Other cardiomyopathies; R91.8 Other nonspecific abnormal finding of lung field; Z91.09 Other allergy status, other than to drugs and biological substances
CPT/HCPCS: 99214

== ENCOUNTER → 2024-07-20 08:52 | Outpatient (BNVA) | payer OTHER, SELFPAY | PROVIDERS: PCP General Practice; Visit Provider Nurse Practitioner Family | DX: J44.9 Chronic obstructive pulmonary disease, unspecified (principal); R06.09 Other forms of dyspnea; R91.8 Other nonspecific abnormal finding of lung field; I42.8 Other cardiomyopathies; Z91.09 Other allergy status, other than to drugs and biological substances | CPT/HCPCS: 99212 ==

== ENCOUNTER 2024-07-20 09:27 | Outpatient (REF) | payer OTHER, SELFPAY ==
[2024-07-20 11:27] LABS: MANUAL DIFF FLAG NO
[2024-07-20 11:33] LABS: Basophils Percent Auto 0.4 % (0-2); Eosinophils Absolute Auto 0.1 X10*3/uL (0.0-0.4); Eosinophils Percent Auto 1.1 % (0-4); Hematocrit 36.4 % (37.0-47.0); Hemoglobin 12.5 g/dl (12.0-16.0); Imm Gran Abs Auto 0.02 X10*3/uL (0.00-0.03); Imm Gran Pct Auto 0.4 % (0.0-0.4); Lymphocytes Absolute Auto 0.7 X10*3/uL (1.2-4.9); Lymphocytes Percent Auto 14.3 % (20-40); Mean Corpuscular HGB Conc 34.3 g/dl (31.0-35.0); Mean Corpuscular Volume 87.5 fL (80.0-98.0); Monocytes Absolute Auto 0.4 X10*3/uL (0.1-1.2); Monocytes Percent Auto 8.8 % (2-11); Neutrophils Absolute Auto 3.6 x10*3/uL (2.0-8.3); Platelet Count 255 X10*3/uL (160-400); Red Blood Count 4.16 X10*6/uL (4.20-5.50); Red Cell Distribution Width 13.3 % (11.0-16.0); White Blood Count 4.8 X10*3/uL (4.8-10.8)
[2024-07-22 05:45] LABS: Class Alternaria alternata 0; Class Aspergillus fumigatus 0; Class Bermuda Grass 1; Class Birch 0/1; Class Cat Dander 0; Class Cladosporium herbarum 0; Class Cockroach 0/1; Class Common Ragweed 0/1; Class Cottonwood 0/1; Class Derm. pterony 0; Class Dermatophagoides farinae 0/1; Class Dog Dander 0; Class Elm 0/1; Class Maple Box Elder 1; Class Mountain Cedar 0/1; Class Mouse Urine Protein 0; Class Mugwort 0/1; Class Oak 0/1; Class Penicillium crysogenum 0; Class Rough Pigweed 0/1; Class Sheep Sorrel 1; Class Sycamore 0/1; Class Timothy Grass 1; Class Walnut Tree 0/1; Class White Ash 1; Class White Mulberry 0/1; D001 IgE D pteronyssinus <0.10 kU/L; D002 - IgE D farinae 0.11 kU/L; E001 - IgE Cat Dander <0.10 kU/L; E005 - IgE Dog Dander <0.10 kU/L; E072-IgE Mouse Urine <0.10 kU/L; G002 IgE Bermuda Grass 0.54 kU/L; G006 - IgE Timothy Grass 0.37 kU/L; I006-IgE Cockroach, German 0.34 kU/L; Immunoglobulin E 196 kU/L (<OR=114); M001 IgE Penicillium chrysogen <0.10 kU/L; M002 - IgE Cladosporium herbar <0.10 kU/L; M003 - IgE Aspergillus fumigat <0.10 kU/L; M006 - IgE Alternaria alternat <0.10 kU/L; T001 IgE Maple/Box Elder 0.35 kU/L; T003 IgE Common Silver Birch 0.26 kU/L; T007 - IgE Oak, White 0.33 kU/L; T008 IgE Elm, American 0.32 kU/L; T010 - IgE Walnut 0.33 kU/L; T011 - IgE Maple Leaf Sycamore 0.31 kU/L; T014 - IgE Cottonwood 0.32 kU/L; T015 - IgE Ash, White 0.37 kU/L; T070 - IgE White Mulberry 0.23 kU/L; W001 - IgE Ragweed, Short 0.31 kU/L; W006 - IgE Mugwort 0.27 kU/L; W014 IgE Pigweed, Common 0.29 kU/L; W018 IgE Sheep Sorrel 0.43 kU/L
== END 2024-07-20 09:28 | disposition home or self-care (01) ==
LOC: HO.WFDLDS 09:27
PROVIDERS: Visit Provider Nurse Practitioner Family
DX: Z91.09 Other allergy status, other than to drugs and biological substances (principal)
CPT/HCPCS: 36415; 82785; 85025; 86003

== ENCOUNTER → 2024-09-17 23:59 | Outpatient (BNV) | payer OTHER, SELFPAY ==
--- NOTE | 2024-09-26 19:08 | MHC.OFFVIS ---
Intake Visit Reasons: Remote ICD Check- [facility] Allergies lisinopril Allergy (Verified 07/20/24 08:58) Cough ham Allergy (Uncoded 07/20/24 08:58) hives PFSH Medical History Invasive ductal carcinoma of left breast (~02/2022) Cardiac resynchronization therapy defibrillator (EXERCISE PLANNER-D) in place (~06/2023) NICM (nonischemic cardiomyopathy) LBBB (left bundle branch block) Hypertension Hypercholesteremia COPD (chronic obstructive pulmonary disease) Anemia Bipolar 1 disorder Surgical History History of cardiac defibrillator placement (~2022) History of cardiac cath (~2021) History of left breast biopsy (~2021) History of lumpectomy of left breast (~2021) History of hysterectomy (~2021) History of foot surgery (~2006) Family History Maternal Aunt Lupus Mother Breast cancer Social History Household Members: None Housing: Apartment Are you a primary critical care clinical nurse specialist to a significant other at home: No Do you presently have visiting nurse or other home services: No Alcohol intake: never Patient Tobacco Use Status: Former Tobacco user Tobacco use type: Cigarette service: No 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al status: disabled 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 [id number] Cardiac Interrogation, implant defibrillator w/interim Procedure code (CPT) selection complete Assessment & Plan Assessment & Plan (1) Cardiac resynchronization therapy defibrillator (EXERCISE PLANNER-D) in place: Onset Date: ~06/2023 Code(s): Z95.810 - Presence of automatic (implantable) cardiac defibrillator Category: Medical (2) NICM (nonischemic cardiomyopathy): Code(s): I42.8 - Other cardiomyopathies Category: Medical (3) LBBB (left bundle branch block): Code(s): I44.7 - Left bundle-branch block, unspecified Category: Medical Plan x Medications: Discontinued metoprolol succinate ER Discontinued Reason: Doctor's Order 25 mg PO QAM 90 tabs 3RF Coding Level of Care Code Procedure Only Diagnoses Cardiac resynchronization therapy defibrillator (EXERCISE PLANNER-D) in place Z95.810 NICM (nonischemic cardiomyopathy) I42.8 LBBB (left bundle branch block) I44.7 CPT Codes Cardiac Device Check - Cardiac Device 13: [id number] Cardiac Interrogation, implant defibrillator w/interim ([id number])
== END ==
PROVIDERS: PCP General Practice; Visit Provider Internal Medicine
DX: I42.8 Other cardiomyopathies (principal); I44.7 Left bundle-branch block, unspecified; Z95.810 Presence of automatic (implantable) cardiac defibrillator
CPT/HCPCS: 93295

== ENCOUNTER 2024-09-30 12:32 | Outpatient (AMB) | payer OTHER, SELFPAY ==
[2024-09-30 12:46] VITALS: BP 112/60; PULSE 79; BMI 32.1
--- NOTE | 2024-09-30 12:46 | MHC.OFFVIS ---
Vital Signs 09/30/24 12:46 Height 4 ft 11 in Weight 159 lb BMI 32.1 BP 112/60 Blood Pressure Location Lt brachial Position Sitting Pulse 79 Pulse Source Monitor Intake Visit Reasons: 4 mth f/up Allergies lisinopril Allergy (Verified 07/20/24 08:58) Cough ham Allergy (Uncoded 07/20/24 08:58) hives Medication List - Last Reconciled 09/30/24 by Jonah Darling MD acetaminophen (Tylenol Extra Strength) 500 mg PO Q6H PRN albuterol sulfate 90 mcg/actuation (ProAir HFA) 1 inh inhalation QID atorvastatin 80 mg PO DAILY daksezosdi-itdyufeh-ugqvkgsvut 160-9-4.8 mcg/actuation (Breztri Aerosphere) 2 inhalations inhalation BID cholecalciferol (vitamin D3) (Vitamin D3) 50 mcg PO QAM ferrous sulfate (FeroSul) 325 mg PO Q OTHER DAY furosemide (Lasix) 20 mg PO DAILY ibuprofen 800 mg PO Q8H PRN ipratropium-albuterol 0.5 mg-3 mg(2.5 mg base)/3 mL 3 mL inhalation Q6H PRN metoprolol succinate ER 50 mg PO DAILY montelukast 10 mg PO DAILY pantoprazole 40 mg PO DAILY sacubitril-valsartan 24-26 mg (Entresto) 1 tab PO BID 90 days spironolactone 25 mg PO DAILY HPI Comments Details: Renita returns for follow-up regarding cardiomyopathy as well as left bundle-branch block. In 2022, he had verterbral artery dissection and was admitted to [facility] and then sent to rehab. Was on anti-coagulation, but then stopped. Otherwise, she has history of breast cancer and underwent surgery and radiation. Various complaints including shortness of breath, tiredness, palpitations at different times. She also underwent Bi V ICD placement but she still has the same complaints and hence not clear how much it is truly related to the cardiomyopathy. Her last cardiac BNP is only 10 which argues against any significant cardiac components of her symptoms. Otherwise, some other complaints today including difficulty in vision, tinnitus, feeling dizzy extra. Few days back, she was not cardiac rehab and there was a question of ventricular tachycardia episode but not clear if it is truly the case. Anyway, patient felt fine at that time. [facility] Medical History Invasive ductal carcinoma of left breast (~02/2022) Cardiac resynchronization therapy defibrillator (FARMWORKER DIVERSIFIED CROPS-D) in place (~06/2023) NICM (nonischemic cardiomyopathy) LBBB (left bundle branch block) Hypertension Hypercholesteremia COPD (chronic obstructive pulmonary disease) Anemia Bipolar 1 disorder Surgical History History of cardiac defibrillator placement (~2022) History of cardiac cath (~2021) History of left breast biopsy (~2021) History of lumpectomy of left breast (~2021) History of hysterectomy (~2021) History of foot surgery (~2006) Family History Maternal Aunt Lupus Mother Breast cancer Social History Household Members: None Housing: Apartment Are you a primary customer care professional to a significant other at home: No Do you presently have visiting nurse or other home services: No Alcohol intake: never Patient Tobacco Use Status: Former Tobacco user Tobacco use type: Cigarette service: No 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al status: disabled 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 Female Reproductive History Menstrual Age of Menarche: 12 Review of Systems Const Denies weakness ENT Reports dizziness Card Denies chest pain, Denies chest pain with activity, Denies syncope, Denies rapid heart rate, Denies pedal edema, Denies edema, Denies leg edema, Denies lightheadedness, Reports palpitations, Denies dyspnea, Denies dyspnea on exertion and Denies orthopnea Resp Denies cough, Denies dyspnea and Denies dyspnea on exertion GI Denies hematochezia and Denies change in stool character Musc Denies abnormal gait, Denies muscle cramps, Denies muscle weakness, Denies numbness, Denies radiating pain into limb and Denies tingling Neuro Denies abnormal gait, Reports dizziness, Denies syncope, Denies numbness, Denies tingling and Denies weakness Endo Reports palpitations Physical Exam Vital Signs: Last Vital Signs Pulse 79 09/30/24 12:46 BP 112/60 09/30/24 12:46 BMI result Body Mass Index 32.1 Const General: comfortable and no acute distress Orientation/consciousness: patient oriented x3 HEENT Other: Unremarkable Head: Yes normal to inspection Neck Neck: Yes normal visual inspection Chest Chest palpation & inspection: normal inspection of the chest Resp Auscultation: clear to auscultation bilaterally Cardio Palpation: normal PMI Heart sounds: S1 normal heart sound present, S2 normal heart sound present, no gallops, no murmurs and no rubs GI Palpation (GI): Soft to palpation Back/Spine/Pelvis Other: unremarkable Skin General skin exam: no rashes or lesions noted Neuro General: patient oriented x3 Extrem General: Yes normal to inspection Psych Mental Status: mental status grossly normal Office Procedures Cardiac Device Check Cardiac Device Check Details: ICD interrogated today. Biventricular device, battery status 6.8 years. Normal lead parameters. No treated episodes. Adequate Bi V pacing. Ventricular tachycardia detection zone 1 set at 139/Min. Monitoring only. Overall, normal device function. [id number] Cardiac Device Check, multi lead implantable defibrillator Procedure code (CPT) selection complete EKG Details: EKG with underlying atrial sensed, ventricular paced rhythm at 79/Min. [id number], Complete Assessment & Plan Assessment & Plan (1) NICM (nonischemic cardiomyopathy): Code(s): I42.8 - Other cardiomyopathies Category: Medical (2) LBBB (left bundle branch block): Code(s): I44.7 - Left bundle-branch block, unspecified Category: Medical (3) Cardiac resynchronization therapy defibrillator (FARMWORKER DIVERSIFIED CROPS-D) in place: Onset Date: ~06/2023 Code(s): Z95.810 - Presence of automatic (implantable) cardiac defibrillator Category: Medical (4) Bilateral carotid artery stenosis: Code(s): I65.23 - Occlusion and stenosis of bilateral carotid arteries Category: Medical Plan In the most recent echocardiogram, LVEF is 30-35%. Previously, in a similar range. In 2017, about 45-50%. Cardiac catheterization shows normal coronary arteries. Overall, nonischemic cardiomyopathy related to left bundle-branch block. Last cardiac BNP is only 10 and hence highly doubt any significant cardiac component for her shortness of breath and other symptoms. For medications, she can stay on the current regimen of metoprolol ER, Entresto, spironolactone. She is already complaining of dizziness and hence may not be able tolerate Farxiga or Jardiance. She is on a small dose of diuretics as well. Bi V ICD is functioning normally. Device settings were adjusted and we brought down the lower rate of VT detection zone to 139/Min. With regard to the carotid stenosis- CTA findings reviewed from May. 90% stenosis in the right ICA and 70% in the left ICA. Discussed with Dr. De Anda and requested urgent evaluation. Coding Level of Care Code Est Pt Level 4 (49199) Diagnoses NICM (nonischemic cardiomyopathy) I42.8 LBBB (left bundle branch block) I44.7 Cardiac resynchronization therapy defibrillator (FARMWORKER DIVERSIFIED CROPS-D) in place Z95.810 Bilateral carotid artery stenosis I65.23 CPT Codes Cardiac Device Check - Cardiac Device 6: [id number] Cardiac Device Check, multi lead implantable defibrillator ([id number]) EKG - CPT: 38642-Uxkjgbdlsnwdejide, Complete ([id number])
== END 2024-09-30 13:08 | disposition home or self-care (01) ==
PROVIDERS: PCP General Practice; Visit Provider Internal Medicine
DX: I42.8 Other cardiomyopathies (principal); I44.7 Left bundle-branch block, unspecified; Z95.810 Presence of automatic (implantable) cardiac defibrillator; I65.23 Occlusion and stenosis of bilateral carotid arteries
CPT/HCPCS: 93010; 93284; 99214

== ENCOUNTER → 2024-09-30 12:32 | Outpatient (BNVA) | payer OTHER, SELFPAY | PROVIDERS: PCP General Practice; Visit Provider Internal Medicine | DX: I42.8 Other cardiomyopathies (principal); I44.7 Left bundle-branch block, unspecified; I65.23 Occlusion and stenosis of bilateral carotid arteries; Z95.810 Presence of automatic (implantable) cardiac defibrillator | CPT/HCPCS: 93005; 99212 ==

== ENCOUNTER 2024-10-05 10:57 | Outpatient (AMB) | payer OTHER, SELFPAY ==
--- NOTE | 2024-10-05 11:03 | MHC.OFFVIS ---
Vital Signs 10/05/24 11:05 10/05/24 11:07 BP 120/70 114/60 Blood Pressure Location Lt brachial Rt brachial Position Sitting Sitting Intake Visit Reasons: chronic carotid stenosis s/p CTA Intake Note: Pt c/o of dizziness, MCCURDY's, nausea. States she can hear her heart beat Due Diligence Coordinator Required: No Accompanied by: Daughter Allergies lisinopril Allergy (Verified 07/20/24 08:58) Cough ham Allergy (Uncoded 07/20/24 08:58) hives HPI HPI chronic carotid stenosis s/p CTA: Details: Very pleasant 54-year-old female who actually had seen us back in January presents for follow-up regarding carotid stenosis. She back then was noted to have 50-79% bilateral stenosis. Became increasing concerned as she started to have headaches dizziness and pulsatile tinnitus. Primary care team had obtained a CT angiogram and she now presents for follow-up. Upon discussion with her she denies any lateralizing signs or symptoms vision loss or speech disturbances. She now presents for vascular evaluation and follow-up. [facility] Medical History Invasive ductal carcinoma of left breast (~02/2022) Cardiac resynchronization therapy defibrillator (WRONG ADDRESS CLERK-D) in place (~06/2023) NICM (nonischemic cardiomyopathy) LBBB (left bundle branch block) Hypertension Hypercholesteremia COPD (chronic obstructive pulmonary disease) Anemia Bipolar 1 disorder Surgical History History of cardiac defibrillator placement (~2022) History of cardiac cath (~2021) History of left breast biopsy (~2021) History of lumpectomy of left breast (~2021) History of hysterectomy (~2021) History of foot surgery (~2006) Family History Maternal Aunt Lupus Mother Breast cancer Social History Household Members: None Housing: Apartment Are you a primary careers adviser to a significant other at home: No Do you presently have visiting nurse or other home services: No Alcohol intake: never Patient Tobacco Use Status: Former Tobacco user Tobacco use type: Cigarette service: No 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al status: disabled 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 Female Reproductive History Menstrual Age of Menarche: 12 Review of Systems Const All systems reviewed & are unremarkable except as noted in HPI and below Denies chills, Denies daytime sleepiness, Denies fatigue, Denies fever(s), Denies poor appetite, Denies snoring, Denies stops breathing during sleep, Denies weakness, Denies weight gain and Denies weight loss Eyes Denies loss of vision ENT Reports Normal hearing present, Denies dizziness and Denies hearing loss Card Denies chest pain, Denies irregular heart rhythm, Denies claudication, Denies leg edema, Denies lightheadedness, Denies palpitations, Denies dyspnea on exertion and Denies orthopnea Resp Denies cough, Denies excessive phlegm production, Denies dyspnea on exertion, Denies snoring and Denies wheezing GI Denies abdominal pain, Denies hematochezia, Denies change in bowel habits, Denies nausea and Denies vomiting Denies urinary frequency and Denies dysuria Musc Denies arthralgias, Denies muscle weakness, Denies numbness and Denies other Skin/Breast Denies nail changes and Denies rash Neuro Reports Normal hearing present, Denies Abnormal speech present, Denies dizziness, Denies loss of vision, Denies memory loss, Denies numbness and Denies weakness Psych Denies depression and Denies memory loss Endo Denies fatigue and Denies palpitations Franklin/Lymph Denies easy bruising Aller/Immun Denies wheezing Physical Exam Vital Signs: Last Vital Signs BP 114/60 10/05/24 11:07 Const General: cooperative, healthy appearing and comfortable Orientation/consciousness: oriented to person, oriented to place and oriented to time HEENT Head: Yes normal to inspection Neck Neck: Yes normal visual inspection Carotids: no bruits Chest Chest palpation & inspection: normal inspection of the chest Resp Effort & Inspection: normal respiratory effort and able to speak in complete sentences Auscultation: clear to auscultation bilaterally, no crackles, no rales, no rhonchi and no wheezes Cardio Rate: regular rate Rhythm: regular rhythm Heart sounds: S1 normal heart sound present and S2 normal heart sound present Bruits: no carotid bruits Peripheral pulses: Peripheral pulses 2+ throughout GI Inspection: Yes normal to inspection Skin Wounds: no wounds Hair: normal Neuro General: oriented to person, oriented to place and oriented to time Cranial nerves: Yes CN's II-XII intact bilaterally and Yes Normal hearing present Cognition (Neuro): normal cognition Speech: No Abnormal speech present Motor exam (neuro): 5/5 motor strength present throughout Extrem Other: venous exam: No significant superficial varicosities or spider telangiectasias, minimal edema General: No clubbing, No cyanosis and No edema Psych Appearance: grossly normal Mental Status: mental status grossly normal Speech and movement: Normal speech and movement present Results Reviewed Results Reviewed: CT angiogram dated 05/17/2024 demonstrates right stenosis of 90%. Written report and images were reviewed. Assessment & Plan Assessment & Plan (1) Right cavernous carotid stenosis: Code(s): I65.21 - Occlusion and stenosis of right carotid artery Category: Medical Plan: In short patient has high-grade right carotid stenosis. The patient will require right carotid endarterectomy. Risks benefits complications were discussed in detail with the patient including but not limited to bleeding infection stroke and . She does have a prior history of coronary artery disease with prior cardiac catheterization and bi V ICD. She will require cardiac risk stratification. Thank you for allowing us to assist in her care. Coding Level of Care Code Est Pt Level 4 (24660) Complex EM visit Add On G2211 Diagnoses Right cavernous carotid stenosis I65.21
[2024-10-05 11:05] VITALS: BP 120/70
[2024-10-05 11:07] VITALS: BP 114/60
--- OUTSIDE RECORDS SUMMARY | 2024-10-06 20:32 | XMS_ITS ---
Author Name [facility] Organization Unknown History of Medication Use Medication Directions Dispensed Refills Start Date End Date Stat PANTOprazole (PROTONIX) 40 MG EC tablet Take 1 tablet (40 mg total) by mouth every morning before breakfast. 04/03/2023 active atorvastatin (LIPITOR) 80 MG tablet Take 1 tablet (80 mg total) by mouth daily. 04/03/2023 active mirtazapine (REMERON) 7.5 MG tablet Take 1 tablet (7.5 mg total) by mouth nightly. 04/03/2023 active fluticasone-salmeterol (ADVAIR HFA) 115-21 MCG/ACT inhaler Inhale 2 puffs 2 (two) times a day. 04/03/2023 active melatonin 3 MG Tab tablet Take 5 mg by mouth nightly. 04/03/2023 active acetaminophen (TYLENOL) 325 MG tablet Take 2 tablets (650 mg total) by mouth 4 times daily (every 6 hours) as needed for mild pain, moderate pain or headaches. 04/03/2023 active cetirizine (ZyrTEC) 10 MG chewable tablet Chew 1 tablet (10 mg total) daily. 04/03/2023 active polyethylene glycol (miraLAx) 17 g packet Take 1 packet (17 g total) by mouth daily. 04/03/2023 active gabapentin (NEURONTIN) 300 MG capsule Take 1 capsule (300 mg total) by mouth 3 (three) times a day. 04/03/2023 active calcium carbonate (OS-ESTEFANIA) 600 MG tablet Take 1 tablet (600 mg total) by mouth every morning with breakfast. 04/03/2023 active aspirin enteric coated 81 MG EC tablet Take 1 tablet (81 mg total) by mouth daily. 04/03/2023 active fluticasone (FloNASE) 50 mcg/spray nasal spray 1 spray into each nostril daily. 04/03/2023 active lidocaine (LIDODERM) 5 % patch Place 1 patch on the skin daily. Apply patch and leave on for 12 hours then remove. Patch may remain on skin for 12 hours per day. 04/03/2023 active metoCLOPRAMIDE (REGLAN) 5 MG/ML injection Infuse 2 mL (10 mg total) into a venous catheter 4 times daily (every 6 hours) as needed for nausea or vomiting. 04/03/2023 active furosemide (LASIX) 20 MG tablet Take 1 tablet (20 mg total) by mouth daily. 04/03/2023 active ferrous sulfate 325 (65 FE) MG tablet Take 1 tablet (325 mg total) by mouth daily. Take 2 hours before or 4 hours after acid reducers. 04/03/2023 active ascorbic acid 250 MG tablet Take 1 tablet (250 mg total) by mouth daily. 04/03/2023 active apixaban (ELIQUIS) 5 MG tablet Take 1 tablet (5 mg total) by mouth every 12 (twelve) hours around the clock. 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
== END 2024-10-05 11:46 | disposition home or self-care (01) ==
PROVIDERS: PCP General Practice; Visit Provider Surgery Vascular Surgery
DX: I65.21 Occlusion and stenosis of right carotid artery (principal)
CPT/HCPCS: 99214; G2211

== ENCOUNTER → 2024-10-05 10:57 | Outpatient (BNVA) | payer OTHER, SELFPAY | PROVIDERS: PCP General Practice; Visit Provider Surgery Vascular Surgery | DX: I65.21 Occlusion and stenosis of right carotid artery (principal); I25.10 Atherosclerotic heart disease of native coronary artery without angina pectoris; I10 Essential (primary) hypertension; Z95.810 Presence of automatic (implantable) cardiac defibrillator | CPT/HCPCS: 99212 ==

== ENCOUNTER → 2024-11-01 15:49 | Outpatient (BNV) | payer OTHER, SELFPAY | PROVIDERS: PCP General Practice; Visit Provider Radiology Diagnostic Radiology | DX: R07.9 Chest pain, unspecified (principal); R06.02 Shortness of breath | CPT/HCPCS: 71045 ==

== ENCOUNTER → 2024-11-01 17:47 | Outpatient (BNV) | payer OTHER, SELFPAY | PROVIDERS: Emergency Provider Emergency Medicine; PCP General Practice; Visit Provider Internal Medicine | DX: R94.31 Abnormal electrocardiogram [ECG] [EKG] (principal) | CPT/HCPCS: 93010 ==

== ENCOUNTER 2024-11-22 06:05 | Outpatient (BNV) | payer OTHER, SELFPAY | END 2024-11-30 09:30 | PROVIDERS: Admitting Provider Surgery Vascular Surgery; PCP General Practice; Visit Provider Radiology Diagnostic Radiology | DX: I77.71 Dissection of carotid artery (principal); I63.9 Cerebral infarction, unspecified; J38.4 Edema of larynx; D72.829 Elevated white blood cell count, unspecified | CPT/HCPCS: 70553; 71045 ==

== ENCOUNTER 2024-11-22 06:05 | Outpatient (BNV) | payer OTHER, SELFPAY | END 2024-12-07 12:24 | PROVIDERS: Admitting Provider Surgery Vascular Surgery; PCP General Practice; Visit Provider Internal Medicine Cardiovascular Disease | DX: R94.31 Abnormal electrocardiogram [ECG] [EKG] (principal) | CPT/HCPCS: 93010 ==

== ENCOUNTER 2024-11-22 06:05 | Outpatient (BNV) | payer OTHER, SELFPAY | END 2024-12-06 13:59 | PROVIDERS: Admitting Provider Surgery Vascular Surgery; PCP General Practice; Visit Provider Internal Medicine Cardiovascular Disease | DX: R94.31 Abnormal electrocardiogram [ECG] [EKG] (principal) | CPT/HCPCS: 93010 ==

== ENCOUNTER 2024-11-22 06:05 | Outpatient (BNV) | payer OTHER, SELFPAY | END 2024-12-03 14:00 | PROVIDERS: Admitting Provider Surgery Vascular Surgery; PCP General Practice; Visit Provider Radiology Diagnostic Radiology | DX: J96.21 Acute and chronic respiratory failure with hypoxia (principal) | CPT/HCPCS: 71045 ==

== ENCOUNTER 2024-11-22 06:05 | Outpatient (BNV) | payer OTHER, SELFPAY | END 2024-11-23 08:03 | PROVIDERS: Admitting Provider Surgery Vascular Surgery; PCP General Practice; Visit Provider Radiology Diagnostic Radiology | DX: I65.21 Occlusion and stenosis of right carotid artery (principal); Z98.890 Other specified postprocedural states | CPT/HCPCS: 71045 ==

== ENCOUNTER 2024-11-22 06:05 | Inpatient (IN) | payer OTHER, SELFPAY ==
[2024-11-15 10:06] VITALS: BP 136/70; PULSE 74; RESP 15; O2SAT 96; BMI 32.5
--- NOTE | 2024-11-15 10:29 | P.CONAN_ITS ---
Documented by User: Mariia Grove NP 11/19/24 10:13 HPI - Anesthesia Eval Consult details Narrative: 54yo F for Right Carotid Endarterectomy, 11/22/24 Cardiac optimized: Intermediate cardiac risk for carotid surgery. Due to PVCs/NSVT in cardiac rehabilitation, may keep on short-term Amiodarone to reduce the likelihood of any perioperative arrhythmias. Obtain EKG on morning of surgery. Follows [facility] cardiology for NICMP r/t LBBB with ICD/[employer] REP in situ Recent runs of NSVT at cardiac rehab. Reprogram of ICD. [facility] ED 11/01/2024 with CP but LWBS (was sent by cardiac rehab d/t arrythmias). With cardiac rehab 11/15/24 (day of PAT) cardiac rehab encouraged ER but pt declined. Reports palaps at rest. Cardiology aware. Started on amioderone No CP with cardiac rehab - feels palps. No SOB with cardiac rehab COPD: slight cough but otherwise at baseline. Using albuterol and nebulizer with scheduled inhalers PMFSH Active Problems Active Problems: All Active Problems Right cavernous carotid stenosis (Acute) Environmental allergies (Acute) Multiple pulmonary nodules (Acute) Pulmonary nodule (Acute) Pulsatile tinnitus of right ear (Acute) Bilateral carotid artery stenosis (Acute) Dyspnea on exertion (Acute) Lateral epicondylitis of right elbow (Acute) LBBB (left bundle branch block) (Acute) NICM (nonischemic cardiomyopathy) (Acute) Invasive ductal carcinoma of left breast (Chronic ~02/2022) Cardiac resynchronization therapy defibrillator ([employer] REP-D) in place (Acute ~06/2023) Hypertension (Acute) COPD (chronic obstructive pulmonary disease) (Acute) Past Medical History Medical History Hx of radiation therapy Habitual snoring Cough On beta yamini at home Pacemaker Cardiac resynchronization therapy defibrillator ([employer] REP-D) in place (~06/2023) LBBB (left bundle branch block) NICM (nonischemic cardiomyopathy) Invasive ductal carcinoma of left breast (~02/2022) Anemia COPD (chronic obstructive pulmonary disease) Hypercholesteremia Bipolar 1 disorder Hypertension Family History Family History Maternal Aunt Lupus Mother Breast cancer Family history of problems with anesthesia: No Surgical History Surgical History History of cardiac defibrillator placement (~2022) History of cardiac cath (~2021) History of foot surgery (~2006) History of left breast biopsy (~2021) History of lumpectomy of left breast (~2021) History of hysterectomy (~2021) History of Problems with Anesthesia: No Social History Social History Household Members: None Housing: Apartment Are you a primary healthcare administrator to a significant other at home: No Do you presently have visiting nurse or other home services: Yes ([employer]) Alcohol intake: never Patient Tobacco Use Status: Former Tobacco user Tobacco use type: Cigarette Use of substances other than those prescribed or required for medical reasons: No Have you been hit, kicked, punched, or otherwise hurt by someone within the past year? 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 Meds Allergies Allergy/AdvReac Type Severity Reaction Status Date / Time lisinopril Allergy Cough Verified 11/01/24 15:46 ham Allergy hives Uncoded 11/01/24 15:46 Home Medications ?Medication ?Instructions ?Recorded ?Confirmed ?Last Taken ?Type albuterol sulfate 90 mcg/actuation 2 inh inhalation QID 08/03/21 11/15/24 Unknown History aerosol inhaler (ProAir HFA) atorvastatin 80 mg tablet 80 mg PO DAILY 07/30/22 11/15/24 11/22/24 History ferrous sulfate 325 mg (65 mg 325 mg PO DAILY 07/30/22 11/15/24 Unknown History iron) tablet (FeroSul) pantoprazole 40 mg tablet,delayed 40 mg PO DAILY 07/30/22 11/15/24 11/22/24 History release cholecalciferol (vitamin D3) 50 50 mcg PO QAM 10/30/22 11/15/24 Unknown History mcg (2,000 unit) capsule (Vitamin D3) ibuprofen 800 mg tablet 800 mg PO Q8H PRN Pain 09/30/24 11/15/24 Unknown History calcium 600 mg (as 1 tab PO BID 11/15/24 11/15/24 Unknown History carbonate)-vitamin D3 10 mcg (400 unit) tablet fluticasone propionate 50 2 spray intranasal BID 11/15/24 11/15/24 Unknown History mcg/actuation nasal spray,suspension montelukast 10 mg tablet 10 mg PO BEDTIME 11/15/24 11/15/24 Unknown History omega 9-xhi-zhn-fish oil 60 mg-90 1 cap PO DAILY 11/15/24 11/15/24 Unknown History mg-500 mg capsule sertraline 50 mg tablet 50 mg PO DAILY 11/15/24 11/15/24 Unknown History Exam Height,Weight and Vital Signs: Height 4 ft 11 in Weight 73.028 kg Last Vital Signs Pulse 74 11/15/24 10:06 Resp 15 11/15/24 10:06 BP 136/70 11/15/24 10:06 Pulse Ox 96 11/15/24 10:06 O2 Del Method Room Air 11/15/24 10:06 Pertinent Lab Results Pertinent Lab Results: Lab Results 11/15/24 Range/Units 10:50 Blood Type O Positive Antibody Screen NEGATIVE Narrative Narrative: CT angio head neck 04/2024 IMPRESSION: 1. Partially calcified atheromatous plaque at both carotid bifurcations and proximal ICAs, as described above, with approximately 90% diameter reduction stenosis in the proximal right ICA and 70% diameter reduction stenosis in the proximal left ICA. 2. Unremarkable intracranial arterial circulation. No evidence for arteriovenous malformation. 3. Normal appearance to the brain without acute process or mass effect. 4. Calcified nodule left lung apex and a calcified lymph node in the anterior mediastinum consistent with remote granulomatous disease. 5. Note that there is some limitation on the CTA of the neck due to streak artifact from dense contrast material in the right subclavian and innominate veins. The right subclavian origin is not evaluated. There is suspicion for moderate stenosis of the proximal left subclavian artery and left common carotid artery origin, but these are not well evaluated on this exam. EKG 10/2024 Vent. Rate : 74 BPM Atrial Rate : 74 BPM P-R Int : 182 ms QRS Dur : 130 ms QT Int : 426 ms P-R-T Axes : 45 125 27 degrees QTcB Int : 472 ms Atrial-sensed ventricular-paced rhythm Abnormal ECG When compared with ECG of 03-OCT-2023 16:11, Vent. rate has decreased BY 7 BPM Holter 05/2024 * Total monitoring time 2 days. * Underlying rhythm is sinus with an average rate of 86/Min. About 21% of the time, rate > 100/Min. * No significant ectopy or tachyarrhythmias. * No significant pauses or AV blocks. * No patient markers or diary events. ECHO 02/2024 Conclusions: - 1. Mildly dilated left ventricle with moderate to severe LV systolic dysfunction with LVEF of 30 35% with impaired relaxation filling pattern 2. [id number] mitral regurgitation 3. Normal RV systolic pressure 4. Mildly dilated ascending aorta at 3.7 cm 5. No pericardial effusion NM vi perf SPECT rest & str 2021 Impression: 1. Myocardial perfusion imaging study shows LAD territory ischemia 2. Gated LVEF is 30% 3. Transient ischemic dilatation present EKG is nondiagnostic for ischemia Airway Mallampati Class: II TM Dist: >3cm Neck ROM: Limited Loose/Missing/Broken Teeth: No Heart: RRR Lungs: JELANI wheeze, otherwise CTA Assessment and Plan Assessment Anesthesia Assessment: Anesthesia Plan Discussed and PAT Visit Final Anesthetic Review Family History of Problems with Anesthesia: No History of Problems with Anesthesia: No Documented by User: Jillian Lugo MD 11/22/24 10:54 HPI - Anesthesia Eval Consult details Narrative: 54yo F for Right Carotid Endarterectomy, 11/22/24 Cardiac optimized: Intermediate cardiac risk for carotid surgery. Due to PVCs/NSVT in cardiac rehabilitation, may keep on short-term Amiodarone to reduce the likelihood of any perioperative arrhythmias. Obtain EKG on morning of surgery. Follows [facility] cardiology for NICMP r/t LBBB with ICD/[employer] REP in situ Recent runs of NSVT at cardiac rehab. Reprogram of ICD. [facility] ED 11/01/2024 with CP but LWBS (was sent by cardiac rehab d/t arrythmias). With cardiac rehab 11/15/24 (day of PAT) cardiac rehab encouraged ER but pt declined. Reports palaps at rest. Cardiology aware. Started on amioderone No CP with cardiac rehab - feels palps. No SOB with cardiac rehab COPD: slight cough but otherwise at baseline. Using albuterol and nebulizer with scheduled inhalers Addendum 11/22/24: Patient referred to ER from cardiac rehab for chest pain/arrhytmias but left before treatment. Amiodarone prescribed by Cardiology to reduce golden-op arrhythmias but patient has not taken Patient wearing a mask and coughing this morning. Denies recent respiratory tract infection. Quit smoking years ago. States tickle in throat. Lungs clear. Sats 96% (RA). Discussed with Dr De Anda pre-op. Patient wihh high grade stenosis so has to proceed with surgery. High risk. [facility] Past Medical History Medical History Hx of radiation therapy Habitual snoring Cough On beta yamini at home Pacemaker Cardiac resynchronization therapy defibrillator ([employer] REP-D) in place (~06/2023) LBBB (left bundle branch block) NICM (nonischemic cardiomyopathy) Invasive ductal carcinoma of left breast (~02/2022) Anemia COPD (chronic obstructive pulmonary disease) Hypercholesteremia Bipolar 1 disorder Hypertension Family History Family History Maternal Aunt Lupus Mother Breast cancer Family history of problems with anesthesia: No Surgical History Surgical History History of cardiac defibrillator placement (~2022) History of cardiac cath (~2021) History of foot surgery (~2006) History of left breast biopsy (~2021) History of lumpectomy of left breast (~2021) History of hysterectomy (~2021) History of Problems with Anesthesia: No Social History Social History Household Members: None Housing: Apartment Are you a primary healthcare administrator to a significant other at home: No Do you presently have visiting nurse or other home services: Yes ([employer]) Alcohol intake: never Patient Tobacco Use Status: Former Tobacco user Tobacco use type: Cigarette Use of substances other than those prescribed or required for medical reasons: No Have you been hit, kicked, punched, or otherwise hurt by someone within the past year? 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 Meds Allergies Allergy/AdvReac Type Severity Reaction Status Date / Time lisinopril Allergy Cough Verified 11/01/24 15:46 ham Allergy hives Uncoded 11/01/24 15:46 Home Medications ?Medication ?Instructions ?Recorded ?Confirmed ?Last Taken ?Type albuterol sulfate 90 mcg/actuation 2 inh inhalation QID 08/03/21 11/15/24 Unknown History aerosol inhaler (ProAir HFA) atorvastatin 80 mg tablet 80 mg PO DAILY 07/30/22 11/15/24 11/22/24 History ferrous sulfate 325 mg (65 mg 325 mg PO DAILY 07/30/22 11/15/24 Unknown History iron) tablet (FeroSul) pantoprazole 40 mg tablet,delayed 40 mg PO DAILY 07/30/22 11/15/24 11/22/24 History release cholecalciferol (vitamin D3) 50 50 mcg PO QAM 10/30/22 11/15/24 Unknown History mcg (2,000 unit) capsule (Vitamin D3) ibuprofen 800 mg tablet 800 mg PO Q8H PRN Pain 09/30/24 11/15/24 Unknown History calcium 600 mg (as 1 tab PO BID 11/15/24 11/15/24 Unknown History carbonate)-vitamin D3 10 mcg (400 unit) tablet fluticasone propionate 50 2 spray intranasal BID 11/15/24 11/15/24 Unknown History mcg/actuation nasal spray,suspension montelukast 10 mg tablet 10 mg PO BEDTIME 11/15/24 11/15/24 Unknown History omega 0-oey-iou-fish oil 60 mg-90 1 cap PO DAILY 11/15/24 11/15/24 Unknown History mg-500 mg capsule sertraline 50 mg tablet 50 mg PO DAILY 11/15/24 11/15/24 Unknown History Exam Airway Mallampati Class: III (Small mouth) TM Dist: >3cm Neck ROM: Limited Loose/Missing/Broken Teeth: No Lungs: CTAB. Diminished Assessment and Plan Assessment Anesthesia Assessment: Anesthesia Plan Discussed, PAT Visit and Chart Reviewed Final Anesthetic Review Family History of Problems with Anesthesia: No History of Problems with Anesthesia: No NPO: Yes ASA Class: IV Final Preanesthetic Review: No Changes in Pt Med Stat, Meds/Allgs Chart Reviewed, Consent Obtained/Reviewed and Anes Risks/Benef Reviewed Patient Risk: High Procedure Risk: Intermediate Assessment/Block/Sedation in SS: Assess/Block/Sedation-SS Anesthetic Plan Anesthetic Plan: GA Disposition: Standard PACU
[2024-11-22] VITALS (27 sets, daily range): BP systolic 111–137; BP diastolic 54–77; PULSE 67–89; RESP 17–23; TEMP 36.4–37.1; O2SAT 90–100; BMI 32.6; BMI 33.5
--- NOTE | ~2024-11-22 | CT_ITS ---
EXAMINATION: CT SOFT TISSUE NECK WITH CONTRAST CLINICAL INFORMATION: Laryngeal edema/neck edema, right carotid hematoma. Recent carotid endarterectomy with subsequent right ICA occlusion. COMPARISON: CT angiogram neck dated 11/22/2024. TECHNIQUE: Following the intravenous administration of 60 mL of Omnipaque 350 intravenous contrast, helical imaging of the neck was performed in the axial plane with generation of coronal and sagittal reformatted images. This CT examination was performed using dose optimization techniques as appropriate, variously including the following: *Automated exposure control *Adjustment of mA and/or kV according to patient size (this includes techniques or standardized protocols for targeted exams where dose is matched to indication/reason for exam; i.e. extremities or head) *Use of iterative reconstruction technique FINDINGS: Endotracheal tube in place, 3.5 cm above the keaton. Orogastric tube in place. Lymph Nodes: -Mildly enlarged right anterior cervical chain nodes which are largely obscured by the presence of hyperattenuating fluid/hematoma. Carotid Sheath Structures: Diminished postoperative changes in the right hepatic and surrounding the right carotid sheath with a hematoma present, beginning in the proximal CCA region at the level of the cricoid cartilage, and extending cephalad to involve the proximal right ICA. This hematoma measures approximately 2.2 cm in AP, by 3.0 cm in transverse, by 6.5 cm in craniocaudad dimension. -There has been some oriental orthodox of enhancement/flow within the proximal right ICA, spanning approximately 4.4 cm distal to the bifurcation. Minimal flow is seen in the most distal right ICA extending into the carotid canals/skull base. -There is mild extension of hematoma into the retropharyngeal space and below the length of the right thyroid cartilage. -There is mass effect upon the right aspect of the larynx, and the inferior right hypopharynx. There is mild shift of the tracheal cartilages to the left. -Hypoattenuating fluid and a few small foci of gas extend to surround the right sternocleidomastoid muscle, just deep to the platysma, with extension to the right submandibular space and parotid space superiorly, and inferiorly to the level of the right mid thyroid. There is associated mild diffuse enlargement of the right SCM. -Compared with the prior CTA exam of 3 days prior, there has interval enlargement of this hematoma, with mildly worsening of mass effect in the right neck and further extension of hyperattenuating right neck fluid/blood as detailed. -Minimal effacement of the right internal jugular vein present, suggesting origin of hemorrhage is from carotid dissection. -No nati contrast extravasation is noted. -The previously seen right carotid surgical drain has been removed. Salivary Glands: -No lesions. There is now fluid surrounding the right inferior parotid gland and lateral to the inferior right masseter muscle. -There is mild mass effect on the right submandibular gland pushing it anteriorly. Mucosal Space: -No discrete lesion seen. Presence of endotracheal tube and orogastric tube limit evaluation. -As described above, there is mild mass effect upon the inferior hypopharynx and right larynx from the hematoma. Visceral Space: -Thyroid gland: Normal. -Mass effect as above. -The subglottic trachea becomes midline at the thoracic inlet. ET tube appears well positioned. Retropharangeal Space: -Mildly increasing hyperattenuating fluid and mass effect within the retropharyngeal space. Parapharyngeal Fat Planes: -Minimal effacement of the inferior right. The left is normal. Stamp Pad Maker Spaces: -As described above. Otherwise normal. 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 -There has been development of approximately 4 mm of [id number] midline shift. There is effacement of the right lateral ventricle, without significant dilation of the left lateral ventricle. -There is mild mass effect upon the right midbrain without gross herniation. -Within confines of contrast, there is no space-occupying hemorrhage identified intracranially. Globes and Orbits: -Engorgement of the right superior ophthalmic vein, likely reflective of increasing intracranial pressures and mass effect upon the right cavernous sinus. Lung Apices and Superior Mediastinal Structures: -There has been development of at least 3 stellate nodular foci in the left upper lobe, likely infectious or inflammatory. -There is dependent atelectasis left greater than right. -No pneumothorax or effusion. Bony Structures: -No suspicious bone lesions. No fractures. -Degenerative spinal changes. CT/CT soft tissue neck w IV con IMPRESSION: 1. Enlarging right neck hematoma centered at the right carotid bulb as discussed, with extension cephalad to involve the proximal right ICA, extension inferiorly to the mid thyroid level, extension into anterior cervical space on the right, and mild extension into the retropharyngeal space. There is associated mass effect on the right hypopharynx and larynx. No gross extravasation of contrast. 2. There has been some oriental orthodox of some degree of enhancement in the right internal carotid artery, which becomes diminutive near the skull base. Given lack of effacement of the internal jugular vein, findings are again highly suggestive of carotid dissection. 3. Interval development of supratentorial right hemispheric infarction, with cytotoxic edema, and resultant right to left midline shift of 4 mm. No space-occupying intracranial hemorrhage allowing for presence of contrast. 4. Endotracheal tube is well positioned. Orogastric tube in place. Right neck surgical drain has been removed. 5. There are inferior left upper lobe stellate nodular opacities present, presumably infectious or inflammatory. These are new from the recent CTA examination Electronically signed by: Amauri Lopez MD 11/25/2024 02:[address] [facility]
--- NOTE | ~2024-11-22 | CT_ITS ---
EXAMINATION: CT ANGIOGRAM HEAD AND NECK CLINICAL INFORMATION: Suspect stroke. Left arm and left leg weakness status post right carotid endarterectomy. COMPARISON: Noncontrast head CT performed concurrently same day. 05/17/2024 CT angiogram head and neck. TECHNIQUE: Noncontrast axial imaging of the head was performed. This was followed by test bolus sequences and head and neck intravenous bolus administration 70 mL of Omnipaque 350. Helical imaging was performed in the axial plane from the aortic arch to the skull vertex. A [address] head was also obtained. The data was processed at the cytogenetics technologist's workstation for generation of MIP sequences. Angled MIPs and volume rendered reformatted images were also generated at an offline 3D workstation. Stenoses are assessed in accordance with NASCET criteria unless otherwise indicated. This CT examination was performed using dose optimization techniques as appropriate, variously including the following: *Automated exposure control *Adjustment of mA and/or kV according to patient size (this includes techniques or standardized protocols for targeted exams where dose is matched to indication/reason for exam; i.e. extremities or head) *Use of iterative reconstruction technique FINDINGS: Exam mildly limited by venous contamination due to bolus timing. Dense venous contrast causes streak artifact which obscures the most proximal right ICA. NECK CTA: -AORTIC ARCH: Normal in caliber with moderate atheromatous plaque. -GREAT VESSEL ORIGINS: 3 vessel branching pattern. There is an approximate 50% stenosis of the left ICA at the origin due to mixed calcific and soft plaque. There is a mild stenosis of the left subclavian artery at the origin due to plaque. There is a mild stenosis of the brachiocephalic artery due to calcified and soft plaque -RIGHT COMMON CAROTID ARTERY: Origin appears patent but short segment just past the origin is obscured by streak artifact from venous contamination. Vessel is otherwise normal in course and caliber to the level of the bifurcation. There is mild to moderate irregularity of the vessel wall due to soft plaque. -CERVICAL RIGHT INTERNAL CAROTID ARTERY: There is complete occlusion of the right ICA approximately 1.3 cm after the origin, with an appearance highly suggestive of dissection of the vessel. It is occluded completely into the skull base. There is mild reconstitution in the carotid siphon via collaterals/retrograde flow. -LEFT COMMON CAROTID ARTERY: Mild origin stenosis due to calcified plaque. Normal in course and caliber to the level of the bifurcation with mild atheromatous plaque. -CERVICAL LEFT INTERNAL CAROTID ARTERY: Extensive irregular predominantly calcific plaque contributes to a high grade short segment luminal stenosis yearly after the origin estimated at 80-90%, with cross-sectional vessel diameter reduced to 1.5 mm. The remainder of the cervical ICA is normal in caliber without adaptive narrowing. There is a partial cervical loop. -CERVICAL RIGHT VERTEBRAL ARTERY: Mild stenosis at the anatomic origin due to calcified plaque. Vessel is mildly dominant but otherwise normal in course and caliber into the skull base. -CERVICAL LEFT VERTEBRAL ARTERY: Moderate origin stenosis suspected, due to predominantly calcified plaque. Vessel is otherwise normal in caliber and course into the skull base. OTHER, SOFT TISSUES: -Left pacemaker generator in the upper left chest with leads extending into the SVC. There are recent postoperative changes within the right cervical soft tissues, secondary to recent endarterectomy. There is a surgical drain in place, which terminates at the approximate level of the origin of the ICA occlusion. Mild swelling of the right sternocleidomastoid muscle with surrounding gas. Mild thickening of the right platysma. -The thyroid gland appears normal. -Imaged superior mediastinum, and imaged lung apices demonstrate dependent atelectasis without pneumothorax or pulmonary consolidation. Partial expiratory appearance. Major airways are patent. CTA OF THE BRAIN: -INTRACRANIAL INTERNAL CAROTID ARTERIES: -RIGHT: Reconstitution of flow on the right in the mid horizontal carotid canal , likely retrograde/collateral. Vessel is otherwise normal in course and caliber without aneurysm. There is mild atheromatous plaque. -LEFT: Mild atheromatous plaque without evidence of significant stenosis or aneurysm. -RIGHT ANTERIOR CEREBRAL ARTERY: Normal A1 segment. Normal arborization of the distal segments. -LEFT ANTERIOR CEREBRAL ARTERY: Normal A1 segment. Normal arborization of the distal segments. -ANTERIOR COMMUNICATING ARTERY: Normal. -RIGHT MIDDLE CEREBRAL ARTERY: Normal M1 segment of the MCA without focal stenosis or occlusion. Normal arborization of the distal segments. -LEFT MIDDLE CEREBRAL ARTERY: Normal M1 segment of the MCA without focal stenosis or occlusion. Normal arborization of the distal segments. -RIGHT VERTEBRAL ARTERY V4: Normal in course and caliber. There is a right AICA/PICA. -LEFT VERTEBRAL ARTERY V4: Normal in course and caliber. Normal PICA branch. -BASILAR ARTERY: Normal without focal stenosis or occlusion. Normal appearance of the proximal superior cerebellar arteries. Normal basilar tip. -RIGHT POSTERIOR CEREBRAL ARTERY: Normal P1 segment. Normal opacification of the distal [employer] segments. -LEFT POSTERIOR CEREBRAL ARTERY: Normal P1 segment. Normal opacification of the distal [employer] segments. -POSTERIOR COMMUNICATING ARTERIES: The right is diminutive but seen. The left is normal in caliber. Normal opacification of the superior sagittal, straight, transverse, and sigmoid sinuses. No venous thrombosis. No space-occupying hemorrhage or evidence of developing edematous territory infarction on the delayed acquisition. CT/CT angio head neck STROKE IMPRESSION: 1. Complete occlusion of the RIGHT ICA approximately 1.3 cm after the origin, with an appearance of probable underlying vessel dissection. There is reconstitution of flow in the mid horizontal carotid canal intracranially via retrograde/collateral flow. 2. Irregular soft and calcific plaque contributes to a short segment high grade stenosis, likely 80-90%, at the origin of the LEFT ICA with luminal diameter reduced to 1.5 mm. 3. There is a mild stenosis at the origin of the LEFT vertebral artery secondary to calcific and soft plaque. The vessel is otherwise patent. 4. There is mild to moderate stenosis at the origin of the RIGHT vertebral artery secondary to calcific and soft plaque. The vessel is otherwise patent. 5. No evidence of major intracranial arterial occlusion, high-grade stenosis, aneurysm, or dissection. 6. There are recent postoperative changes of right endarterectomy with soft tissue swelling and foci of gas in the right neck. 7. Additional findings as discussed in the body of the report. Findings discussed with Dr. Marychuy Son of the [place] [facility] via phone call at 4:19 PM, 11/22/2024. Electronically signed by: Amauri Lopez MD 11/22/2024 04:42 PM [facility] - [place], [place]
--- NOTE | ~2024-11-22 | XR_ITS ---
EXAMINATION: XR CHEST CLINICAL INFORMATION: s/p OG Tube COMPARISON: Earlier same day at 8:07 AM. 11/01/2024. TECHNIQUE: Frontal view of the chest was obtained. FINDINGS: Endotracheal tube remains in good position, approximately 3.8 cm above the keaton. Enteric tube has been placed, with tip likely within the gastric antrum. Sidehole is subdiaphragmatic. Triple lead pacer/AICD device left hemithorax, leads terminating in the right ventricle, right atrium, and coronary sinus. Defibrillator pad overlying the left mid and lower thorax obscures underlying left lung. In addition, the superior apices of and excluded from the exam. Cardiac enlargement, unchanged. Aorta is calcified. Hilar silhouettes appear normal. Within the confines of overlying artifact, the lungs are grossly clear. Limited evaluation of the left lower lung. No definite pneumothorax or definitive effusion. Soft tissues and bony structures demonstrate no acute finding. XR/XR chest 1V IMPRESSION: 1. Well-positioned endotracheal tube and enteric tube. 2. Stable AICD. 3. Cardiac enlargement. 4. Limited evaluation of the left mid and lower lung due to overlying defibrillator pad. No definite active disease identified or perceptible pneumothorax. Electronically signed by: Amauri Lopez MD 11/23/2024 12:58 PM [facility]
--- NOTE | ~2024-11-22 | XR_ITS ---
EXAMINATION: XR CHEST CLINICAL INFORMATION: s/p Intubation COMPARISON: X-ray dated November 01, 2024. TECHNIQUE: Frontal view of the chest was obtained. FINDINGS: The and ventricles to a previous 4 cm above keaton. The cardia mediastinal silhouette overlaps the left hemithorax. There is a pacemaker with 3 intact electrode leads in the right heart chambers and coronary sinus. There is a metallic structure overlapping the mediastinum and right upper thorax. There is a gas filled prominent stomach. XR/XR chest 1V IMPRESSION: Limited exam demonstrated status post intubation 4 cm above keaton. Electronically signed by: Daniel Zhang MD 11/23/2024 10:00 AM [facility]
--- NOTE | ~2024-11-22 | XR_ITS ---
EXAMINATION: XR CHEST 1 VIEW HISTORY: leukocytosis, ? Aspiration COMPARISON: Comparison is made with the prior examination dated 11/23/2024. FINDINGS: A single AP view of the chest is submitted. A left subclavian dual-chamber pacemaker is unchanged in position. The lungs are expanded and clear. There is no pleural effusion, pneumothorax, or pulmonary vascular congestion. The heart is normal in size. The aorta is calcified. The bones are intact. XR/XR chest 1V IMPRESSION: No acute cardiopulmonary abnormality. Electronically signed by: Trent Riddle MD 11/30/2024 09:52 AM EST
--- NOTE | ~2024-11-22 | MR_ITS ---
EXAMINATION: MR BRAIN WITHOUT AND WITH CONTRAST CLINICAL INFORMATION: Follow-up of acute stroke following right carotid dissection and right neck hematoma. COMPARISON: CT soft tissue neck with IV contrast 11/25/2024 CT brain 11/22/[address] brain 11/22/2024 TECHNIQUE: Multiplanar, multisequence MRI of the brain was obtained before and after the intravenous administration of 7.5 mL Gadavist. FINDINGS: There is extensive deep right frontal parietal and scattered temporal lobe acute ischemic changes on diffusion scan with corresponding flow void signal on ADC map consistent with acute ischemic changes and last 3 days. There is no magnetic susceptibility artifact seen to suspect any right conversion. There is some preservation of right frontoparietal cortical sulci in the area surrounded by deep white matter. There is preservation in the watershed area in the right frontoparietal region. There is mild right to left midline shift. Right lateral ventricle is compromised secondary to deep white matter edema and ischemia. Postcontrast there is mild enhancement seen in the right frontoparietal cortical likely representing vascular enhancement from capillary venous system. Normal flow-void signal seen in the left internal carotid and the basal artery. Previously right internal carotid artery was occluded but now there is some flow seen in the proximal ICA and distal ICA and likely secondary to collaterals the lateral, third and fourth ventricles are normal caliber. The bone marrow signal is normal. There is T2 signal changes in bilateral mastoid, left maxillary and ethmoid sinuses. MR/MR head/brain wo/w con IMPRESSION: Acute infarction right frontoparietal deep white matter with sparing of the watershed area. Post contrast there is enhancement of renal calculi segments within the cortical sulci likely delayed perfusion. The ischemia spares the right frontoparietal cortical sulci. No hemorrhagic conversion of infarct seen. Collateral flow is seen in proximal and distal ICA. Electronically signed by: Alhaji Hussein MD 11/30/2024 02:54 PM EST
--- NOTE | ~2024-11-22 | XR_ITS ---
EXAMINATION: XR CHEST 1 VIEW HISTORY: Hypoxemia, follow up COMPARISON: Comparison is made with the prior examination dated 11/30/2024. FINDINGS: A single AP portable view of the chest performed at 1:48 PM is submitted. A left-sided dual-chamber pacemaker is unchanged in position. There is increased density at the lateral aspect of the left lung base which may represent pneumonia or overlying soft tissue. The right lung is clear. There is no pleural effusion, pneumothorax, or pulmonary vascular congestion. The heart is normal in size given technique. The aorta is calcified. The bones are intact. XR/XR chest 1V IMPRESSION: Increased density at the lateral aspect of the left lung base may represent pneumonia or overlying soft tissue. PA and lateral views are recommended when the patient is able. Electronically signed by: Trent Riddle MD 12/03/2024 02:18 PM [facility]
--- NOTE | ~2024-11-22 | CT_ITS ---
EXAMINATION: CT HEAD WITHOUT CONTRAST (STROKE PROTOCOL) CLINICAL INFORMATION: Stroke protocol. Left arm and left leg weakness status post right carotid endarterectomy. COMPARISON: 05/17/2024. TECHNIQUE: Contiguous axial imaging was performed from the skull base to vertex without intravenous administration of contrast. This CT examination was performed using dose optimization techniques as appropriate, variously including the following: *Automated exposure control *Adjustment of mA and/or kV according to patient size (this includes techniques or standardized protocols for targeted exams where dose is matched to indication/reason for exam; i.e. extremities or head) *Use of iterative reconstruction technique FINDINGS: There is no evidence of intracranial hemorrhage or extra-axial fluid collection. There is no mass effect, or edema. No CT evidence of acute territorial infarct. Ventricles, sulci, and cisterns are normal in size and configuration for patient age. No hydrocephalus. No midline shift. Negative hyperdense MCA sign. Negative insular ribbon sign. 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 Normal sella. Globes and orbital contents image normally. No extracranial soft tissue abnormalities. The paranasal sinuses, mastoid air cells, and tympanic cavities are normally aerated. No suspicious bony abnormalities. Degenerative changes left TM joint. CT/CT head for STROKE IMPRESSION: No acute intracranial pathology. No CT evidence of acute intracranial hemorrhage, mass effect, edema, or acute territorial infarct. Electronically signed by: Amauri Lopez MD 11/22/2024 01:26 PM [facility] [place]
--- NOTE | 2024-11-22 06:05 | ECG_ITS ---
Test Reason : PREOP Blood Pressure : */* mmHG Vent. Rate : 70 BPM Atrial Rate : 70 BPM P-R Int : 176 ms QRS Dur : 122 ms QT Int : 452 ms P-R-T Axes : 43 112 24 degrees QTcB Int : 488 ms Atrial-sensed ventricular-paced rhythm Biventricular pacemaker detected Abnormal ECG When compared with ECG of 01-Nov-2024 17:54, No significant changes seen Referred By: Mariia Grove Electronically Signed By: EVA CARLIN
--- OUTSIDE RECORDS SUMMARY | 2024-11-22 06:14 | XMS_ITS | Encounter Summary ---
Author Organization [employer] Address [address] [place] [address] Care Team Providers Care Rn Outpatient Surgery Name Role Phone Hilda Butt MD Primary Care Provider [phone] Reason for Visit * Reason Onset Date Comments Med Refill 03/11/2024 Encounter Details Date Type Department Care Team ([facility] Contact Info) Description 03/11/2024 Refill [facility] [address] [place], [place] [phone] Hilda Butt MD [address] [place] [address] Itchy skin of anus and genitals; Recurrent acute serous otitis media of right ear Social History Tobacco Use Types Packs/Day Years Used Date Smoking Tobacco: Former Smokeless Tobacco: Never Alcohol Use Standard Drinks/Week Comments Never 0 (1 standard drink = 0.6 oz pur e alcohol) Depression Answer Date Recorded Patient Health Questionnaire-9 Score 0 11/17/2023 Patient Health Questionnaire-9 Score 0 11/17/2023 Last PHQ-9: Questionnaire Data Not on file 0 11/17/2023 Housing Stability Answer Date Recorded What is your housing situation today? I have jadon sing 08/13/[address] you li ve. Do you have problems with any of the following? None of the above 08/13/2023 Food Insecurity Answer Date Recorded Within the past 12 months, y ou worried that your food would run out before you got money to buy more: Never True 08/13/2023 Within the past 12 months,th e food you bought just didn't last and you didn't have enough money to get more: Never True Transportation Answer Date Recorded In the past 12 months, has l ack of transportation kept you from medical appts, meetings, work or from getting things needed for daily living? No 11/06/2023 Utilities Answer Date Recorded In the past 12 months, has t he electric, gas, oil or water company threatened to shut off services in your home? No 08/13/2023 Depression Answer Date Recorded Patient Health Questionnaire-2 Score 0 11/17/2023 Comments Unknown Sex and Gender Information Value Date Recorded Sex Assigned at Female 08/26/2022 10:14 AM EDT Legal Sex Female 10:14 AM EDT Gender Identity Female 08/26/2022 10:14 AM EDT Sexual Orientation Straight 08/26/2022 10 :14 AM EDT documented as of this encounter Plan of Treatment Upcoming Encounters Date Type Department Care Team (Late st Contact Info) Description 12/31/2024 11:15 AM EST Office Visit [facility] MEDIC[facility] [address] [place] [address] Hidla Butt MD [address] [place] [address] documented as of this encounter Goals Goal Patient Goal Type Associated Problems Recent Progress Patient-Stated? Author Blood Pressure < 140/90 Blood Pressure 142/86( 025 2:15 PM EST) No Daria Cardoso, Holly documented as of this encounter Visit Diagnoses Diagnosis Itchy skin of anus and genitals Pruritus ani Recurrent acute serous otitis media of right ear documented in this encounter Additional Health Concerns Assessment Noted Time PHQ-9 Depression Total Score: 0 11/17/19 24 10:34 AM EST documented as of this encounter Care Teams Rn Outpatient Surgery Relationship Specialty Start Date End Date Hilda Butt MD [address] [place] [address] PCP - General Family Medicine 06/20/22 documented as of this encounter
--- OUTSIDE RECORDS SUMMARY | 2024-11-22 06:14 | XMS_ITS | Encounter Summary ---
Author Organization [employer] Address [address] [place] [address] Care Team Providers Care Furniture Mover Name Role Phone Hilda Butt MD Primary Care Provider [phone] Reason for Visit * Reason Onset Date Comments Med Refill 03/11/2024 Encounter Details Date Type Department Care Team ([facility] st Contact Info) Description 03/11/2024 Refill [facility] [address] [place], [place] [phone] Hilda Butt MD [address] [place], [place] [phone] Social History Tobacco Use Types Packs/Day Years [...] your housing situation today? I have jadon samson 08/13/[address] you li [...] Description 12/31/2024 11:15 AM EST Office Visit [facility] [address] [place] [phone] Hilda Butt MD [address] [place] [address] documented as of this encounter Goals Goal Patient Goal Type Associated Problems Recent Progress Patient-Stated? Author Blood Pressure < 140/90 Blood Pressure 142/86( 025 2:15 PM EST) No Daria Cardoso, PharmD documented as of this encounter Visit Diagnoses Not on filedocumented in this encounter Additional Health Concerns Assessment Noted Time PHQ-9 Depression Total Score: 0 11/17/19 24 10:34 AM EST documented as of this encounter Care Teams Furniture Mover Relationship Specialty Start Date End Date Hilda Butt MD [address] [place] [id number] PCP - General Family Medicine 06/20/22 documented as of this encounter
--- OUTSIDE RECORDS SUMMARY | 2024-11-22 06:14 | XMS_ITS | Encounter Summary ---
Author Organization [employer] Address [address] [place] [address] Care Team Providers Care Agricultural Scientist Name Role Phone Hilda Butt MD Primary Care Provider [phone] Encounter Details Date Type Department Care Team ([facility] st Contact Info) Description 03/24/2024 Orders Only [facility] [address] [place], [place] [phone] Hilda Butt MD [address] [place], [place] [phone] Vertebral artery dissection (CMS/HCC) (Primary Dx) Social History Tobacco Use Types Packs/Day Years [...] Description 12/31/2024 11:15 AM EST Office Visit [facility] [address] [place] [phone] Hilda Butt MD [address] [place] [phone] Scheduled Orders Name Type Priority Associated Diagnoses Orde r Schedule Basic Metabolic Panel Lab Routine Vertebral artery dissection (CMS/HCC) Expected: 03/24/2024 (Approximate), Expires: 03/24/2025 documented as of this encounter Goals Goal Patient Goal Type Associated Problems Recent Progress Patient-Stated? Author Blood Pressure < 140/90 Blood Pressure 142/86( 025 2:15 PM EST) No Daria Cardoso, PharmD documented as of this encounter Visit Diagnoses Diagnosis Vertebral artery dissection (CMS/HCC)- Primary Dissection of vertebral artery documented in this encounter Additional Health Concerns Assessment Noted Time PHQ-9 Depression Total Score: 0 11/17/19 24 10:34 AM EST documented as of this encounter Care Teams Agricultural Scientist Relationship Specialty Start Date End Date Hilda Butt MD [address] [place] [phone] PCP - General Family Medicine 06/20/22 documented as of this encounter
--- OUTSIDE RECORDS SUMMARY | 2024-11-22 06:14 | XMS_ITS | Encounter Summary ---
Author Organization [employer] Address [address] [place] [address] Care Team Providers Care Physician Assistant Name Role Phone Hilda Butt MD Primary Care Provider Reason for Visit * Reason Onset Date Comments Med Refill 03/01/2024 Encounter Details Date Type Department Care Team ([facility] st Contact Info) Description 03/01/2024 Refill [facility] [address] [place], [place] [phone] Hilda Butt MD [address] [place], [place] [phone] Itchy skin of anus and genitals; Recurrent acute serous otitis media of right ear; Dizziness Social History Tobacco Use Types Packs/Day Years [...] Description 12/31/2024 11:15 AM EST Office Visit [facility] [address] [place] [address] Hilda Butt MD [address] [place] [address] documented as of this encounter Goals Goal Patient Goal Type Associated Problems Recent Progress Patient-Stated? Author Blood Pressure < 140/90 Blood Pressure 142/86( 025 2:15 PM EST) No Daria Cardoso, Holly documented as of this encounter Visit Diagnoses Diagnosis Itchy skin of anus and genitals Pruritus ani Recurrent acute serous otitis media of right ear Dizziness Dizziness and giddiness documented in this encounter Additional Health Concerns Assessment Noted Time PHQ-9 Depression Total Score: 0 11/17/19 24 10:34 AM EST documented as of this encounter Care Teams Physician Assistant Relationship Specialty Start Date End Date Hilda Butt MD [address] [place] [phone] PCP - General Family Medicine 06/20/22 documented as of this encounter
--- OUTSIDE RECORDS SUMMARY | 2024-11-22 06:14 | XMS_ITS | Encounter Summary ---
Author Organization [employer] Address [address] [place] [address] 7[address] [place] [address] Care Team Providers Care Travel Counselor Automobile Club Name Role Phone Hilda Butt MD Primary Care Provider [phone] Reason for Visit * Reason Comments Med Refill Encounter Details Date Type Department Care Team ([facility] Contact Info) Description 02/03/2023 Refill [facility] MEDICINE [address] [place] [address] [phone] Hilda Butt MD [address] [place] [address] [phone] Social History Tobacco Use Types Packs/Day Years Used Date Smoking Tobacco: Former Cigarettes Smokeless Tobacco: Never Alcohol Use Standard Drinks/Week Comments Never 0 (1 standard drink = 0.6 oz pur e alcohol) Comments Unknown Sex and Gender Information Value Date Recorded Sex Assigned at Female 08/26/2022 10:14 AM EDT Legal Sex Female 10:14 AM EDT Gender Identity Female 08/26/2022 10:14 AM EDT Sexual Orientation Straight 08/26/2022 10 :14 AM EDT COVID-19 Exposure Response Date Recorded In the last 10 days, have yo u been in contact with someone who was confirmed or suspected to have Coronavirus/COVID-19? No / Unsure 01/29/2023 2:24 PM EDT documented as of this encounter Plan of Treatment Upcoming Encounters Date Type Department Care Team ([facility] Contact Info) Description 12/31/2024 11:15 AM EST Office Visit [facility] MED[facility]INE [address] [place] [address] [phone] Hilda Butt MD [address] [place] [address] [phone] documented as of this encounter Visit Diagnoses Not on filedocumented in this encounter Additional Health Concerns Assessment Noted Time PHQ-9 Depression Total Score: 9 01/07/20 23 2:56 PM EDT documented as of this encounter Care Teams Travel Counselor [employer]obile Club Relationship Specialty Start Date End Date Hilda Butt MD [address] [place] [address] PCP - General Family Medicine 06/20/22 documented as of this encounter
--- OUTSIDE RECORDS SUMMARY | 2024-11-22 06:14 | XMS_ITS | Encounter Summary ---
Author Organization [employer] Address [address] [place] [address] 7t [place] [address] Care Team Providers Care Sales Office Administrator Name Role Phone Hilda Butt MD Primary Care Provider [phone] Reason for Referral * Imaging (Routine) - Closed Specialty Diagnoses / Procedures Referred By Winter roa Referred To Contact Radiology Diagnoses Vertebral artery dissection (CMS/HCC) Tinnitus of both ears Procedures CTA Neck w/ and w/o Contrast Hilda Butt MD [address] [place], [place] Phone: tel: fax: [address] Phone: tel: fax: Referral ID Status Reason Start Date Expiration Date Visits Re quested Visits Authorized [id number] Closed 03/08/2024 03/08/2025 1 1 * Imaging (Routine) - Closed Specialty Diagnoses / Procedures Referred By Winter roa Referred To Contact Radiology Diagnoses Vertebral artery dissection (CMS/HCC) Tinnitus of both ears Procedures CTA Head w/ and w/o Contrast Hilda Butt MD [address] [place] [address] Phone: tel: fax: [address] Phone: tel: fax: Referral ID Status Reason Start Date Expiration Date Visits Re quested Visits Authorized [id number] Closed 03/08/2024 03/08/2025 1 1 * Imaging (Routine) - Canceled Specialty Diagnoses / Procedures Referred By Winter t Referred To Contact Radiology Diagnoses Vertebral artery dissection (CMS/HCC) Tinnitus of both ears Procedures CTA Head Neck w/ and w/o Contrast Hilda Butt MD [address] [place] [address] Phone: tel: fax: [address] Phone: tel: fax: Referral ID Status Reason Start Date Expiration Date V isits Requested Visits Authorized [id number] Canceled 03/05/2024 03/05/2025 1 1 Encounter Details Date Type Department Care Team (Late st Contact Info) Description 03/05/2024 Orders Only [facility] MEDICINE [address] [place] [address] [phone] Hilda Butt MD [address] [place] [address] [phone] Vertebral artery dissection (CMS/HCC) (Primary Dx); Tinnitus of both ears Social History Tobacco Use Types Packs/Day Years [...] Description 12/31/2024 11:15 AM EST Office Visit [facility] MEDICINE [address] [place] [address] Hilda Butt MD [address] [place] [address] Scheduled Orders Name Type Priority Associated Diagnoses Orde r Schedule CTA Head w/ and w/o Contrast Imaging Routine Vertebral artery dissection (CMS/HCC) Tinnitus of both ears Expected: 03/08/2024, Expires: 03/08/2025 CTA Neck w/ and w/o Contrast Imaging Routine Vertebral artery dissection (CMS/HCC) Tinnitus of both ears Expected: 03/08/2024, Expires: 03/08/2025 documented as of this encounter Goals Goal Patient Goal Type Associated Problems Recent Progress Patient-Stated? Author Blood Pressure < 140/90 Blood Pressure 142/86( 025 2:15 PM EST) No Daria Cardoso, PharmD documented as of this encounter Procedures Procedure Name Priority Date/Time Associated Diagnosis Comments CTA HEAD NECK W AND WO CONTRAST Routine 05/17/2024 1:56 PM EDT Vertebral artery dissection (CMS/HCC) Tinnitus of both ears documented in this encounter Results * CTA Head Neck w/ and w/o Contrast (05/17/2024 1:56 PM EDT) Anatomical Region Laterality Modality Head, Neck Computed Tomogra phy 05/17/2024 1:56 PM EDT Narrative 06/09/2024 10:01 AM EDT ? [facility] ?[address] ?[place] [address] ? CT Scan Report ? Signed ? Patient: Renita Brandon ?MR#: [id number] ?? 4 ? : 1970 ?Acct:[id number] ? Age/Sex: 53 / F ?ADM Date: 05/17/24 ? Loc: HO.CT ? Attending Dr: Hilda Butt MD ? Ordering Physician: Hilda Butt ?? Date of Service: 05/17/24 ?? Procedure(s): CT angio head neck ?? Accession Number(s): [id number] ? cc: Hilda Butt ? EXAMINATION: ?? CT ANGIOGRAM HEAD AND NECK ? CLINICAL INFORMATION: ?? 53-year-old with worsening pulsatile tinnitus and headaches. ? COMPARISON: ?? None available. ? TECHNIQUE: ?? Volumetric CT angiography of the head and neck was performed from the ?? upper thorax to the skull vertex utilizing the bolus intravenous ?? administration of 85 mL of Omnipaque 350 contrast material. 2D ?? multiplanar reconstructions and 3D MIP renderings were performed either ?? on an independent workstation or at the CT console workstation. ?? Precontrast and delayed postcontrast imaging of the head was also done. ? The degree of stenosis determined by NASCET criteria. ? This CT examination was performed using dose optimization techniques as ?? appropriate, variously including the following: ?? *Automated exposure control ?? *Adjustment of mA and/or kV according to patient size (this includes ?? techniques or standardized protocols for targeted exams where dose is ?? matched to indication/reason for exam; i.e. extremities or head) ?? *Use of iterative reconstruction technique ? DLP: ?? 2134 mGy-cm ? FINDINGS: ?? The brain is normal in morphology and attenuation. There is no ?? intracranial hemorrhage, extra-axial fluid collection, space-occupying ?? process, or mass effect. Long-white matter interface is preserved. No ?? acute territorial infarct. No abnormal intracranial enhancement. The ?? ventricular system and subarachnoid spaces are within normal limits. ?? Thin-section imaging demonstrates no evidence for an enhancing ?? retrotympanic mass on either side. There is normal opacification of the ?? major dural venous sinuses and jugular bulbs. The visualized orbital ?? soft tissue structures are unremarkable. Extracranial soft tissue ?? structures are within normal limits. The calvarium is intact and the ?? bony skull base is grossly unremarkable. ? CT NECK AND UPPER CHEST: Limited assessment. Minor mucosal thickening ?? left maxillary sinus. No acute process. Visualized mediastinum ?? demonstrates a single small calcified lymph node in the prevascular ?? space of the anterior mediastinum which is nonspecific. Visualized lung ?? parenchyma demonstrates no acute process. There is a 4 mm densely ?? calcified nodule in the medial aspect of the left lung apex. Possible ?? remote granulomatous disease. ? CTA NECK/CHEST: Limited visualization of the upper thoracic aorta and ?? great vessels partly due to streak artifact from dense contrast ?? material in the right subclavian and innominate vein. Visualized ?? thoracic aorta is normal in caliber. There is a three-vessel arch ?? configuration. There are calcified plaques in the proximal left ?? subclavian artery with a moderate degree of luminal diameter reduction. ?? There is calcified plaque at the origin of the left common carotid ?? artery with moderate stenosis at the origin. There is calcified plaque ?? at the origin of the innominate artery with mild luminal narrowing. The ?? right subclavian artery origin is obscured by artifact and is not ?? evaluated. Right common carotid artery is normal in caliber. The ?? vertebral arteries are patent with the right being dominant, without ?? significant focal stenosis or segmental occlusion. There is mild ?? atheromatous luminal irregularity in the proximal aspect of the left ?? vertebral artery with tcry-rb-wsmvcolk luminal narrowing. ? Right Carotid: There is moderately extensive partially calcified plaque ?? at the carotid bifurcation and proximal right ICA. There is ?? approximately 90% diameter reduction stenosis in the proximal right ?? ICA. More distally in the proximal ICA, there is mild stenosis of less ?? than 50%. Distal to this, there is a smoothly contoured ICA which is ?? normal in caliber with a tonsillar loop just below the skull base. The ?? ECA is patent but most likely stenotic at its origin. ? Left Carotid: Scattered foci of partially calcified atheromatous plaque ?? are seen within the mid left common carotid artery with less than 50% ?? diameter reduction stenosis. More distally, there is fairly extensive ?? partially calcified plaque at the left carotid bifurcation and proximal ?? left ICA. There is approximately 70% diameter reduction stenosis by ?? NASCET criteria. Distal to this, the ICA demonstrates a tonsillar loop ?? but is otherwise normal in caliber and smoothly contoured. The ECA is ?? patent. ? CTA HEAD: The intracranial ICAs are patent without significant focal ?? stenosis or segmental occlusion. Minimal calcified plaque at the right ?? carotid siphon. The A1 and A2 segments, M1 segments, MCA bifurcations ?? and M2 branches appear patent. The anterior communicating artery is not ?? well visualized. The left posterior communicating artery is visualized ?? and is unremarkable. The intradural vertebral arteries are patent with ?? the right being dominant without significant stenosis. The basilar ?? artery is patent and normal in caliber. The superior cerebellar and ?? posterior cerebral arteries are patent and normal in caliber. ? No abnormal vascularity is seen in the posterior fossa. Specifically, ?? there is no evidence for dural arteriovenous malformation. ? CT/CT angio head neck ?? IMPRESSION: ?? 1. Partially calcified atheromatous plaque at both carotid bifurcations ?? and proximal ICAs, as described above, with approximately 90% diameter ?? reduction stenosis in the proximal right ICA and 70% diameter reduction ?? stenosis in the proximal left ICA. ? 2. Unremarkable intracranial arterial circulation. No evidence for ?? arteriovenous malformation. ? 3. Normal appearance to the brain without acute process or mass effect. ? 4. Calcified nodule left lung apex and a calcified lymph node in the ?? anterior mediastinum consistent with remote granulomatous disease. ? 5. Note that there is some limitation on the CTA of the neck due to ?? streak artifact from dense contrast material in the right subclavian ?? and innominate veins. The right subclavian origin is not evaluated. ?? There is suspicion for moderate stenosis of the proximal left ?? subclavian artery and left common carotid artery origin, but these are ?? not well evaluated on this exam. ? Dictated By: ?MADDIE SINCLAIR MD ? Signed By: ?<Electronically signed by MADDIE SINCLAIR MD in OV> ? 06/09/24 0957 ? DD/ 1356 ? TD/TT: ? Tank Maker Wood: ? Procedure Note Milad, Charlie - 06/09/[address] [address] [address] Scan Report Signed Patient: Adin Brandon#: [id number] 4 : 1970Acct:[id number] Age/Sex: 53 / FADM Date: 05/17/24 Loc: HO.CT Attending Dr: Hilda Butt MD Ordering Physician: Hilda Butt Date of Service: 05/17/24 Procedure(s): CT angio head neck Accession Number(s): [id number] cc: Hilda Butt EXAMINATION: CT ANGIOGRAM HEAD AND NECK CLINICAL INFORMATION: 53-year-old with worsening pulsatile tinnitus and headaches. COMPARISON: None available. TECHNIQUE: Volumetric CT angiography of the head and neck was performed from the upper thorax to the skull vertex utilizing the bolus intravenous administration of 85 mL of Omnipaque 350 contrast material. 2D multiplanar reconstructions and 3D MIP renderings were performed either on an independent workstation or at the CT console workstation. Precontrast and delayed postcontrast imaging of the head was also done. The degree of stenosis determined by NASCET criteria. This CT examination was performed using dose optimization techniques as appropriate, variously including the following: *Automated exposure control *Adjustment of mA and/or kV according to patient size (this includes techniques or standardized protocols for targeted exams where dose is matched to indication/reason for exam; i.e. extremities or head) *Use of iterative reconstruction technique DLP: 2134 mGy-cm FINDINGS: The brain is normal in morphology and attenuation. There is no intracranial hemorrhage, extra-axial fluid collection, space-occupying process, or mass effect. Long-white matter interface is preserved. No acute territorial infarct. No abnormal intracranial enhancement. The ventricular system and subarachnoid spaces are within normal limits. Thin-section imaging demonstrates no evidence for an enhancing retrotympanic mass on either side. There is normal opacification of the major dural venous sinuses and jugular bulbs. The visualized orbital soft tissue structures are unremarkable. Extracranial soft tissue structures are within normal limits. The calvarium is intact and the bony skull base is grossly unremarkable. CT NECK AND UPPER CHEST: Limited assessment. Minor mucosal thickening left maxillary sinus. No acute process. Visualized mediastinum demonstrates a single small calcified lymph node in the prevascular space of the anterior mediastinum which is nonspecific. Visualized lung parenchyma demonstrates no acute process. There is a 4 mm densely calcified nodule in the medial aspect of the left lung apex. Possible remote granulomatous disease. CTA NECK/CHEST: Limited visualization of the upper thoracic aorta and great vessels partly due to streak artifact from dense contrast material in the right subclavian and innominate vein. Visualized thoracic aorta is normal in caliber. There is a three-vessel arch configuration. There are calcified plaques in the proximal left subclavian artery with a moderate degree of luminal diameter reduction. There is calcified plaque at the origin of the left common carotid artery with moderate stenosis at the origin. There is calcified plaque at the origin of the innominate artery with mild luminal narrowing. The right subclavian artery origin is obscured by artifact and is not evaluated. Right common carotid artery is normal in caliber. The vertebral arteries are patent with the right being dominant, without significant focal stenosis or segmental occlusion. There is mild atheromatous luminal irregularity in the proximal aspect of the left vertebral artery with mybq-dn-cmljrict luminal narrowing. Right Carotid: There is moderately extensive partially calcified plaque at the carotid bifurcation and proximal right ICA. There is approximately 90% diameter reduction stenosis in the proximal right ICA. More distally in the proximal ICA, there is mild stenosis of less than 50%. Distal to this, there is a smoothly contoured ICA which is normal in caliber with a tonsillar loop just below the skull base. The ECA is patent but most likely stenotic at its origin. Left Carotid: Scattered foci of partially calcified atheromatous plaque are seen within the mid left common carotid artery with less than 50% diameter reduction stenosis. More distally, there is fairly extensive partially calcified plaque at the left carotid bifurcation and proximal left ICA. There is approximately 70% diameter reduction stenosis by NASCET criteria. Distal to this, the ICA demonstrates a tonsillar loop but is otherwise normal in caliber and smoothly contoured. The ECA is patent. CTA HEAD: The intracranial ICAs are patent without significant focal stenosis or segmental occlusion. Minimal calcified plaque at the right carotid siphon. The A1 and A2 segments, M1 segments, MCA bifurcations and M2 branches appear patent. The anterior communicating artery is not well visualized. The left posterior communicating artery is visualized and is unremarkable. The intradural vertebral arteries are patent with the right being dominant without significant stenosis. The basilar artery is patent and normal in caliber. The superior cerebellar and posterior cerebral arteries are patent and normal in caliber. No abnormal vascularity is seen in the posterior fossa. Specifically, there is no evidence for dural arteriovenous malformation. CT/CT angio head neck IMPRESSION: 1. Partially calcified atheromatous plaque at both carotid bifurcations and proximal ICAs, as described above, with approximately 90% diameter reduction stenosis in the proximal right ICA and 70% diameter reduction stenosis in the proximal left ICA. 2. Unremarkable intracranial arterial circulation. No evidence for arteriovenous malformation. 3. Normal appearance to the brain without acute process or mass effect. 4. Calcified nodule left lung apex and a calcified lymph node in the anterior mediastinum consistent with remote granulomatous disease. 5. Note that there is some limitation on the CTA of the neck due to streak artifact from dense contrast material in the right subclavian and innominate veins. The right subclavian origin is not evaluated. There is suspicion for moderate stenosis of the proximal left subclavian artery and left common carotid artery origin, but these are not well evaluated on this exam. Dictated By: MADDIE SINCLAIR MD Signed By: <Electronically signed by MADDIE SINCLAIR MD in OV> 06/09/24 0957 DD/ 1356 TD/TT: [employer] Wood: Hilda Butt MD [facility] CT PROCEDURES Final Result documented in this encounter Visit Diagnoses Diagnosis Vertebral artery dissection (CMS/HCC)- Primary Dissection of vertebral artery Tinnitus of both ears Unspecified tinnitus documented in this encounter Additional Health Concerns Assessment Noted Time PHQ-9 Depression Total Score: 0 11/17/19 24 10:34 AM EST documented as of this encounter Care Teams Sales Office Administrator Relationship Specialty Start Date End Date Hilda Butt MD [address] [place] [address] PCP - General Family Medicine 06/20/22 documented as of this encounter
--- OUTSIDE RECORDS SUMMARY | 2024-11-22 06:14 | XMS_ITS | Encounter Summary ---
Author Organization [employer] Address [address] [facility] 7[address] [place] [address] Care Team Providers Care Cnc Mill Programmer Name Role Phone Hilda Butt MD Primary Care Provider [phone] Encounter Details Date Type Department Care Team (Late Contact Info) Description 12/30/2022 Orders Only [facility] MEDICINE [address] [place] [address] [phone] Hilda Butt MD [address] [place] [address] [phone] Low back pain at multiple sites (Primary Dx); Recurrent acute serous otitis media, unspecified laterality Social History Tobacco Use Types Packs/Day Years [...] suspected to have Coronavirus/COVID-19? No / Unsure 12/30/2022 2:16 PM EST documented as of this encounter Plan of Treatment Upcoming Encounters Date Type Department Care Team (Late Contact Info) Description 12/31/2024 11:15 AM EST Office Visit [facility] MEDICINE [address] [place] [address] [phone] Hilda Butt MD [address] [place] [address] [place] [address] documented as of this encounter Visit Diagnoses Diagnosis Low back pain at multiple sites- Primary Recurrent acute serous otitis media, unspecified laterality documented in this encounter Care Teams Cnc Mill Programmer Relationship Specialty Start Date End Date Hilda Butt MD [address] [place] [phone] PCP - General Family Medicine 06/20/22 documented as of this encounter
--- OUTSIDE RECORDS SUMMARY | 2024-11-22 06:15 | XMS_ITS | Clinical Summary ---
Author Organization [employer] Address [address] [place] [address] [address] [place] [address] Care Team Providers Care Manager Of Financial Name Role Phone Hilda Butt MD Primary Care Provider [phone] Allergies Active Allergy Reactions Criticality Noted Date Comments Lisinopril Cough High 06/13/2021 Medications ipratropium-alb uterol (Duo-Neb) 0.5-2.5 mg/3 mL nebulizer solution USE 3 ML VIA NEBULIZER EVERY 6 HOURS NEEDED FOR WHEEZING 10/16/20 23 Active D3 Super Strength 50 MCG (1999 UT) capsuleIndicati ons:Vitamin D deficiency TAKE 1 CAPSULE BY MOUTH EVERY MORNING 90 capsule 3 01/09/20 24 Active aspirin (Aspirin Low Dose) 81 MG EC tablet Take 1 tablet (81 mg) by mouth Once per day. TAKE 1 TABLET BY MOUTH EVERY DAY 90 tablet 3 02/18/20 24 Active cetirizine (ZyrTEC) 10 MG tablet TAKE 1 TABLET BY MOUTH EVERY DAY 90 tablet 3 03/02/20 24 Active Entresto 24-26 MG tablet Take 1 tablet by mouth 2 times daily. 04/05/20 24 Active spironolactone (Aldactone) 25 MG tablet Take 1 tablet by mouth Once per day. 04/05/20 24 Active pantoprazole (ProtoNix) 40 MG EC tablet TAKE 1 TABLET BY MOUTH TWICE DAILY IN THE MORNING AND AT BEDTIME ^1R1,1R4 120 tablet 3 04/20/20 24 Active triamcinolone (Kenalog) 0.1 % cream APPLY A THIN LAYER TOPICALLY TO THE AFFECTED AREA(S) TWICE A DAY 454 g 1 04/22/20 24 Active lidocaine-prilo nola (Emla) 2.5-2.5 % cream APPLY TOPICALLY EVERY MORNING 100 g 3 05/17/20 24 Active fish oil ([place]-3) 500 MG capsule Take 1 capsule (500 mg) by mouth Once per day. 28 capsule 11 05/17/20 24 Active atorvastatin (Lipitor) 80 MG tablet TAKE ONE TABLET BY MOUTH EVERY MORNING ^1R1 90 tablet 3 06/03/20 24 Active sertraline (Zoloft) 50 MG tablet Take 1 tablet (50 mg) by mouth Once per day. 90 tablet 2 06/08/20 24 025 Active albuterol 108 (90 Base) MCG/ACT inhalerIndicati ons:Chronic obstructive pulmonary disease with acute exacerbation (CMS/HCC) Inhale 2 puffs every 4 (four) hours if needed for wheezing or shortness of breath. 18 g 11 07/05/20 24 Active Breztri Aerosphere 160-9-4.8 MCG/ACT aerosol Take 2 puffs by mouth 2 times daily. 07/06/20 24 Active fluticasone (Flonase Allergy Relief) 50 MCG/ACT nasal sprayIndication s:Recurrent acute serous otitis media of right ear SPRAY 2 SPRAYS INTO EACH NOSTRIL TWICE A DAY 16 g 3 07/20/20 24 Active furosemide (Lasix) 20 MG tabletIndicatio ns:Lower extremity edema TAKE 1 TABLET BY MOUTH TWICE DAILY IN THE MORNING AND IN THE EVENING ^1R1,1R3 270 tablet 3 07/21/20 24 Active Ascorbic Acid (vitamin C) 250 MG tablet TAKE 1 TABLET BY MOUTH EACH MORNING WITH IRON ^1R1 90 tablet 3 07/21/20 24 Active betamethasone valerate (Valisone) 0.1 % ointment APPLY TO AFFECTED AREA(S) OF FINGER SPARINGLY ONCE DAILY FOR 7-10 DAYS (BULK) 15 g 1 07/28/20 24 Active Emollient (DermaPhor) ointmentIndicat ions:Itchy skin of anus and genitals APPLY TO AFFECTED AREA(S) OF DRY SKIN NEEDED (BULK) 396 g 3 07/28/20 24 Active ibuprofen 800 MG tabletIndicatio ns:Neck pain TAKE ONE TABLET BY MOUTH EVERY 8 HOURS NEEDED FOR MILD OR MODERATE PAIN (VIAL) 90 tablet 1 07/28/20 24 Active Calcium + Vitamin D3 600-10 MG-MCG tablet TAKE ONE TABLET BY MOUTH TWICE A DAY ^1R1,1R4 360 tablet 07/28/20 24 Active ferrous sulfate (FeroSul) 325 (65 Fe) MG tablet TAKE ONE TABLET BY MOUTH EVERY OTHER DAY IN THE MORNING 45 tablet 3 08/10/20 24 Active montelukast (Singulair) 10 MG tablet Take 1 tablet (10 mg) by mouth at bedtime. 90 tablet 3 08/10/20 24 Active metoprolol succinate XL (Toprol-XL) 50 MG 24 hr tablet Take 1 tablet (50 mg) by mouth Once per day. Do not crush or chew. 90 tablet 3 09/21/20 24 025 Active Banophen 25 MG tablet 07/21/20 24 Active liver oil-zinc oxide (Desitin) 40 % ointment APPLY TOPICALLY TO RECTUM DAILY IF NEEDED FOR IRRITATION 113 g 3 11/05/19 25 Active Petrolatum 42 % ointment APPLY TOPICALLY TO AFFECTED AREA(S) NEEDED DAILY FOR DRY SKIN 100 g 11/17/19 25 Active Petrolatum 42 % ointment APPLY TOPICALLY TO AFFECTED AREA(S) NEEDED DAILY FOR DRY SKIN 10/17/20 23 025 Discontinued(R eorder (will not trigger notification to Pharmacy)) Spacer/Aero-Hol ding Chambers (AeroChamber MV) inhalerIndicati ons:Mild chronic obstructive pulmonary disease (CMS/HCC) Use as instructed 1 each 2 11/17/19 24 025 liver oil-zinc oxide (Desitin) 40 % ointment APPLY TOPICALLY TO RECTUM DAILY IF NEEDED FOR IRRITATION 113 g 3 06/23/20 24 025 Discontinued(R eorder (will not trigger notification to Pharmacy)) Active Problems Problem Noted Date Diagnosed Date Screening for cervical cancer 02/20/2024 Stenosis of both internal carotid arteries 01/22 Assessment & Plan (11/03/2024 8:18 AM EST): Followed by cards and vascular for this 12/2023 study 50-79% stenosis yeny, CTA 05/19 increased to 80-99% R side Will have R endarterectomy 11/22/24 Letter given for increased COMBER FIXER hours in post-op period ER precautions Assessment & Plan (06/11/2024 8:40 AM EDT): Followed by cards and vascular for this They have not recommended carotid endarterectomy Assessment & Plan (01/23/2024 3:10 PM EDT): Refer to vascular for symptomatic internal carotid artery stenosis, consult vascular about potential carotid endarterectomy Encounter for routine adult physical exam with abnormal findings 11/19/2023 Assessment & Plan (11/19/2023 11:20 AM EST): Referred for colon cancer screening Declines imms today Post covid-19 condition, unspecified 11/19/2023 Assessment & Plan (11/19/2023 11:16 AM EST): Refer to PT for fatigue and deconditioning after being hospitalized for COVID PNA in early Oct 2023 Colon cancer screening 11/19/2023 Assessment & Plan (11/19/2023 11:17 AM EST): [place] [facility] Urticarial rash 10/21/2023 Assessment & Plan (10/21/2023 4:43 PM EST): Pt w extensive urticarial rash apparently after ate a ham w no other concerning symptoms for angioedema , does reports some mild numbness sensation in tongue but no other focalizing neuro symptoms and here w complete normal neuro exam -trial w benadryl Q8 h PRN, famotidine daily -start prednisone 40 mg daily for 5 days -alarm signs and symptoms discussed w pt in length in case needs to go to ER At high risk for injury related to fall 09/15/20 Assessment & Plan (09/15/2023 8:23 AM EST): With dizziness and SOB and weakness due to cardiomyopathy, she is at increased risk of falls - order bath mat and bed rails to decrease risk of injuries related to falls Gastroesophageal reflux disease without esophagi tis 07/07/2023 Assessment & Plan (07/07/2023 9:11 AM EDT): Cont Pantoprazole 40mg now once a day Mixed stress and urge urinary incontinence 02/26 Assessment & Plan (04/19/2024 7:33 PM EDT): Patient with mixed incontinence s/p surgery in 2020 For hygiene purposes and to decrease the risk of UTIs and falls, it is recommended that she have incontinence supplies to include large briefs and wipes Assessment & Plan (06/02/2023 11:50 AM EDT): Patient with mixed incontinence s/p surgery in 2020 ? For hygiene purposes and to decrease the risk of UTIs and falls, it is recommended that she have incontinence supplies to include underpads to be placed on her bed while sleeping Assessment & Plan (05/14/2023 10:21 AM EDT): Patient with mixed incontinence For hygiene purposes and to decrease the risk of UTIs and falls, it is recommended that she have incontinence supplies to include underpads to be placed on her bed while sleeping Neck pain 02/24/2023 Assessment & Plan (02/26/2023 1:27 PM EDT): Neck pillow ordered to help with neck pain while sleeping Vertebral artery dissection 01/16/2023 Assessment & Plan (06/11/2024 8:42 AM EDT): Results of CT scan to evaluate history of vertebral dissection entered into chart - will send note and results to Dr Ramirez, neurologist at [facility] regarding her sensation of pain and buzzing in the ears and head and whether it is related to history of vertebral artery dissection Assessment & Plan (02/24/2024 8:17 AM EDT): Unclear exactly what happened with neurologist Dr Rodrigues at [facility], she claims she was told she could not be seen at their practice and referred to [facility]. - recommend CT scan to evaluate dissection - see Dr Ramirez at [facility] Assessment & Plan (11/19/2023 11:22 AM EST): Continue Gabapentin for pain, UTD suggests that this along with Tylenol are the best to manage headache and neck pain associated with dissection followup with neuro 03/04/23, anticoagulation stopped To ER for any stroke symptoms Pain is much improved, no further buzzing in her ear Assessment & Plan (06/02/2023 11:50 AM EDT): To continue Gabapentin for pain, UTD suggests that this along with Tylenol are the best to manage headache and neck pain associated with dissection To avoid NSAIDs due to anticoagulation followup with neuro 03/04/23 as scheduled To ER for any stroke symptoms Pain is much improved, no further buzzing in her ear Assessment & Plan (02/26/2023 1:27 PM EDT): To continue Gabapentin for pain, UTD suggests that this along with Tylenol are the best to manage headache and neck pain associated with dissection To avoid NSAIDs due to anticoagulation followup with neuro 03/04/23 as scheduled To ER for any stroke symptoms Nonischemic cardiomyopathy 11/13/2022 Assessment & Plan (11/03/2024 8:20 AM EST): Had ANESTHESIOLOGY PHYSICIAN ASSISTANT-D placed by Dr Chen at [facility] 9. Dizziness and SOB had improved immediately after placement, then worse again after COVID Supposed to undergo 24-32 weeks of cardiac rehab, went to 4 and then authorization Restarted cardiac rehab this month, had session this AM and they called her afterwards asking about her symptoms, with nausea and fatigue, encouraged to go to ER, ruled out for ACS there Assessment & Plan (06/11/2024 8:46 AM EDT): Had ANESTHESIOLOGY PHYSICIAN ASSISTANT-D placed by Dr Chen at [facility] 9. Dizziness and SOB had improved immediately after placement, then worse again after COVID Supposed to undergo 24-32 weeks of cardiac rehab, went to 4 and then authorization I replaced the order today for ongoing cardiac rehabilitation, pt needs this to get stronger and more active safely Assessment & Plan (11/19/2023 11:21 AM EST): Had ANESTHESIOLOGY PHYSICIAN ASSISTANT-D placed by Dr Chen at [facility] 9 Dizziness and SOB had improved immediately after placement, then worse again after COVID Assessment & Plan (07/07/2023 9:11 AM EDT): Having ANESTHESIOLOGY PHYSICIAN ASSISTANT-D placed by Dr Chen at [facility] 9.28.23 Will evaluate SOB and other symptoms after that Assessment & Plan (11/13/2022 7:48 AM EST): EF 35% Followed by cardiology, Shannan Pinon at [facility] Carotid artery disease 11/08/2022 Allergic conjunctivitis 09/28/2022 Atherosclerosis of aorta 09/28/2022 Atherosclerosis of right carotid artery 09/28/20 Bipolar II disorder 09/28/2022 Assessment & Plan (06/11/2024 8:49 AM EDT): Had been on Seroquel and then Depakote, discontinued both due to concerns about side effects psychofarm followup last 02/2022 Strong anxiety component currently with partner anxiety Will try SSRI for anxiety and speak with pychofarm and then patient about restarting mood stabilizer, Seroquel or [employer] Assessment & Plan (06/12/2023 10:05 AM EDT): In spite of serious medical issues she is still stable and doing fine without treatment. Denies mood swings or depressive symptoms. She will remain off medications at this time. She can call us as needed to request F/u appt or referral for counseling. Otherwise I have wished her well and we will not schedule another appt at this time. Assessment & Plan (01/06/2023 3:54 PM EDT): Patient denies mood swings or depressive symptoms, but is not sleeping well and c/o poor appetite. Will cautiously trial Mirtazapine 7.5 mg at bedtime. If she finds her mood less stable, she should stop taking it. We will send her the list of area counseling agencies and she can make some calls as desired. F/U with me in 6 weeks. She agrees with the plan. Assessment & Plan (11/13/2022 7:47 AM EST): On Seroquel psychofarm followup Infiltrating ductal carcinoma of left female shaggy ast 03/14/2022 Assessment & Plan (11/19/2023 11:23 AM EST): Continue followup with oncology and general surgery Most recent biopsy negative in 09/2022 Assessment & Plan (11/13/2022 7:47 AM EST): Continue followup with oncology and general surgery Most recent biopsy negative in 09/2022 H/O: hysterectomy 02/18/2022 Assessment & Plan (11/19/2023 11:22 AM EST): No further pap smears needed Steatosis of liver 10/17/2021 Left bundle branch block 09/15/2019 Assessment & Plan (06/02/2023 11:49 AM EDT): Followed by cards, Dr Napier Due to LBBB causing non-ischemic cardiomyopathy, consideration for BiV ICD She has some trepidation about this, but would like to feel better from a heart failure, symptoms point of view Unknown duration On EKG 08/2022 Assessment & Plan (11/13/2022 7:46 AM EST): Followed by cards Unknown duration On EKG 08/2022 Dyslipidemia 07/03/2017 Class 1 obesity with serious comorbidity and body mass index (BMI) of 33.0 to 33.9 in adult 07/03/2017 Assessment & Plan (11/13/2022 7:46 AM EST): Diet efforts Essential hypertension 07/03/2017 Assessment & Plan (11/13/2022 7:48 AM EST): On Losartan 50mg Toprolol 50 Low BP today, make slow position changes Mild chronic obstructive pulmonary disease 07/03 Assessment & Plan (07/07/2023 9:09 AM EDT): On Advair and Incrusa quit smoking 5 years ago DEREJE prn pulm referral to optimize mgmt Encounters Date Type Department Care Team Description 11/19/2024 Refill [facility] PEDS [address] [place] [address] Hilda Butt MD 11/19/2024 Refill [facility] MEDICINE [address] [place] [address] Hilda Butt MD Chronic obstructive pulmonary disease with acute exacerbation (CMS/HCC) 11/18/2024 Refill [facility]EDS [address] [place] [address] Hilda Butt MD 11/17/2024 Refill [facility]ED[facility] [address] [place] [address] Hilda Butt MD 11/17/2024 Refill [facility] MED[facility]INE [address] [place] [address] Hilda Butt MD 11/16/2024 Refill [facility] [address] [place] [address] Hilda Butt MD Vitamin D deficiency 11/05/2024 Refill [facility] [address] [place] [address] Hilda Butt MD 11/05/2024 Orders Only [facility] [address] [place] [address] Hilda Butt MD 11/03/2024 Refill [facility] [address] [place] [address] Hilda Butt MD 11/01/2024 2:15 PM EST Office Visit [facility] [address] [place] [address] Hilda Butt MD Stenosis of both internal carotid arteries (Primary Dx); Vertebral artery dissection (CMS/HCC); Bipolar II disorder (CMS/HCC); Nonischemic cardiomyopathy (CMS/HCC); Infiltrating ductal carcinoma of left female breast (CMS/HCC); Dietary counseling; Exercise counseling; Class 1 obesity with serious comorbidity and body mass index (BMI) of 33.0 to 33.9 in adult, unspecified obesity type; Essential hypertension; Atherosclerosis of right carotid artery 11/01/2024 Orders Only [facility] External Provider, [facility] 11/01/2024 Travel 10/31/2024 Travel 09/21/2024 Orders Only [facility] MED[facility]INE [address] [place] [address] Hilda Butt MD 08/31/2024 Patient Outreach [facility] [address] [place] [address] Hilda Butt MD Pre-visit Planning ([facility] screening was completed on 11/06/2023) from Last 3 Months Immunizations Name Administration Dates Next Due Hep A, Adult 06/23/2024,11/17/2023 Hep B, adult 08/19/2024,06/23/2024,11/17/2023 Influenza Injectable Quadriv alant Preservative Free IIV4 MDCK 2022,07/14/2020 Influenza injectable quadriv alent IIV4 with preservative 08/11/2019 Influenza injectable quadriv alent preservative free 07/17/2023,07/31/2021,06/24/2017 Influenza, IIV3, injectable 12/07/2013, 2 Influenza, injectable, quadr ivalent, preservative free, pediatric 07/24/2016,12/07/2013,08/11/2012 Influenza, seasonal, injecta ble, preservative free 07/19/2024,07/24/2016 Nick SARS-CoV-2 Vaccination 01/10/2021 Pfizer Covid-19 Vaccine 12+ 07/19/2024, Pfizer Covid-19 Vaccine 12+ Bivalent 11/08/2022, 07/30/2022 Pneumococcal Conjugate PCV 20 11/17/2023 Pneumococcal Polysaccharide PPSV23 10/17/2021 Tdap 01/21/2024,12/07/2013 Zoster, Recombinant 09/23/2022,2022 Family History Medical History Relation Name Comments Diabetes Mother Heart disease Mother's Sister Stroke Mother's Sister Breast cancer Neg Hx Relation Name Status Comments Mother Mother's Sister Social History Tobacco Use Types Packs/Day Years Used Date Smoking Tobacco: Former Smokeless Tobacco: Never Tobacco Cessation:Counseling Given: Not Answered Alcohol Use Standard Drinks/Week Comments Never 0 [...] Recorded Patient Health Questionnaire-2 Score 0 11/17/2023 Internet Access Answer Date Recorded Internet Access Q1 Yes 08/31/2024 Internet Access Q2 Not on file 08/31/2024 Comments Unknown Sex and Gender Information Value Date Recorded Sex Assigned at Female 08/26/2022 10:14 AM EDT Legal Sex Female 10:14 AM EDT Gender Identity Female 08/26/2022 10:14 AM EDT Sexual Orientation Straight 08/26/2022 10 :14 AM EDT Last Filed Vital Signs Vital Sign Reading Time Taken Comments Blood Pressure 142/86 11/01/2024 2:15 PM EST Pulse 69 11/01/2024 2:15 PM EST Temperature 36.4 ??C (97.6 ??F) 11/01/2024 2:15 PM ES T Respiratory Rate 16 11/01/2024 2:15 PM EST Oxygen Saturation 97% 07/19/2024 2:50 PM EDT Inhaled Oxygen Concentration - - Weight 76.2 kg (168 lb) 11/01/2024 2:15 PM EST Height 149.9 cm (4' 11 ) 11/01/2024 2:15 PM EST Body Mass Index 33.93 11/01/2024 2:15 PM EST Plan of Treatment Upcoming Encounters Date Type Department Care Team (Late st Contact Info) Description 12/31/2024 11:15 AM EST Office Visit [facility] MEDICINE [address] [place] [address] Hilda Butt MD [address] [place] [address] Health Maintenance Due Date Last Done Comments CT Colonography 1972 Colonoscopy 1972 Colorectal Cancer Screening 1972 FIT DNA/Cologuard 1972 FIT 1972 FOBT 1972 Sigmoidoscopy 1972 Alcohol/Substance Use Screening 1984 Family Planning (PISQ) 1987 SDOH Screening 11/06/2024 11/06/2023 Depression Screening 11/17/2024 11/17/2023, 11/17/19 24 Mammogram 07/15/2025 07/15/2024, 06/27, 03/07/2022, Additional history exists Tobacco Screening 11/01/2025 11/01/2024 Lipid Panel 03/29/2027 03/29/2022, 11/30/2020 Pap Smear 02/19/2029 02/20/2024 DTaP/Tdap/Td Vaccines (3 - Td or Tdap) 01/20/2034 01/21/2024, 12/07/2013 RSV Patients and Patients Aged 60 years or older (1 - 1-dose 75+ series) 2047 HIV Screening Completed 05/09/2022, 11/30/2020 Hepatitis C Screening Completed 05/09/2022, 021 Zoster Vaccines Completed 09/23/2022, 2022 Pneumococcal Vaccine: Pediatrics (0 to 5 Years) and At-Risk Patients (6 to 64 Years) Completed 11/17/2023, 10/17/2021 HPV/Cotest Discontinued 02/20/2024 Hepatitis A Vaccines Completed 06/23/2024, 11/17/19 24 COVID-19 Vaccine Completed 07/19/2024, , 07/30/2022, Additional history exists Influenza Vaccine Completed 07/19/2024, , 2022, Additional history exists Hepatitis B Vaccines Completed 08/19/2024, 06/23/2024, 11/17/2023 HIB Vaccines Aged Out No longer eligi ble based on patient's age to complete this topic HPV Vaccines Aged Out No longer eligi ble based on patient's age to complete this topic IPV Vaccines Aged Out No longer eligi ble based on patient's age to complete this topic Meningococcal Vaccine Aged Out No [address] eligible based on patient's age to complete this topic RSV under 20 months Aged Out No longe r eligible based on patient's age to complete this topic Rotavirus Vaccines Aged Out No longer eligible based on patient's age to complete this topic Goals Goal Patient Goal Type Associated Problems Recent Progress Patient-Stated? Author Blood Pressure < 140/90 Blood Pressure 142/86( 025 2:15 PM EST) No Daria Cardoso, Holly Procedures Procedure Name Priority Date/Time Associated Diagnosis Comments HIGH SENSITIVITY TROPONIN I Routine 11/01/2024 4:48 PM EST B TYPE NATRIURETIC PEPTIDE (BNP) Routine 11/01/2024 4:48 PM EST COMPREHENSIVE METABOLIC PANEL Routine 11/01/2024 4:48 PM EST APTT Routine 11/01/2024 4:48 PM EST PROTHROMBIN TIME-INR Routine 11/01/2024 4:48 PM EST CBC WITH AUTO DIFFERENTIAL Routine 11/01/2024 4:48 PM EST SARS COV2/INFLUENZA A/B AND RSV RNA QL NAAT Routine 11/01/2024 4:48 PM EST STREP A NUCLEIC ACID Routine 11/01/2024 4:48 PM EST XR CHEST 1 VIEW Routine 11/01/2024 3:49 PM EST BI MAMMOGRAM DIAGNOSTIC TOMOSYNTHESIS BILATERAL Routine 07/15/2024 10:45 AM EDT HPV MRNA E6/E7 REFLEX TO HPV 16, 18/45 Routine 02/20/2024 12:12 PM EDT PAP SMEAR Routine 02/20/2024 12:12 PM EDT ZZZ HISTORICAL HEPATITIS C AB W/REFL TO HCV RNA, QN, PCR Routine 05/09/2022 4:02 PM EDT HIV 1/2 ANTIGEN/ANTIBODY, FOURTH GENERATION W/RFL Routine 05/09/2022 4:02 PM EDT LIPID PANEL, STANDARD Routine 03/29/2022 3:50 PM EDT from Last 3 Months or Most Recently Relevant to Health Maintenance Results * Strep A Nucleic Acid (11/01/2024 4:48 PM EST) IDNOW SERIAL# [id number] [facility] Strep A Nucleic Acid Negative Negative [facility] Comment:All test results mus t be correlated with clinical findings.This test has not been evaluated for monitoring treatment ofinfection.Additional follow-up testing using the culture method isrequired if the result is negative and clinical symptomspersist, or in the event of an acute rheumatic feveroutbreak. 11/01/2024 4:48 PM EST 11/01/2024 4:52 PM EST us Generic External Data Provider LAB MICROBIOLOGY - GENERAL ORDERABLES Final Result [facility] [address] [place] [phone] * High Sensitivity Troponin I (11/01/2024 4:48 PM EST) TROPONIN I HIGH SENSITIVITY <2.7 <3.5 - 17.0 ng/L [facility] Comment:The Munoz high sens itivity Troponin-I results should beused in conjunction with other diagnostic information suchas ECG, clinical observations and information, and patientsymptoms to aid in the diagnosis of OR. 11/01/2024 4:48 PM EST 11/01/2024 4:52 PM EST Generic External Data Provider LAB BLOOD ORDERAB LES Final Result Performing Organization Address [facility] Co de Phone Number [facility] [address] [place] [phone] * (ABNORMAL) SARS-CoV-2 RNA, Influenza A/B, and RSV RNA, Ql NAAT (11/01/2024 4:48 PM EST) Influenza A PCR NEGATIVE Negative 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 Influenza B PCR NEGATIVE Negative 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 Resp Syncy Virus RNA Qual PCR NEGATIVE Negative [facility] SARS COV2 PCR POSITIVE(A) Negative 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 Comment:All test results mus t be correlated with clinical findings.Negative results do not preclude SARS-CoV2, influenza Avirus, influenza B virus and/or RSV infectionand should not be used as the sole basis for treatment orother patient management decisions. Negative results must becombined with clinical observations, patient history, andepidemiological information.This test has not been evaluated for monitoring treatment ofinfection.This test has been authorized by the FDA under an EmergencyUse Authorization (EUA) for use by authorized laboratories.Testing performed on the [email or web address] GeneXpert utilizingreal-time RT-PCR.All SARS CoV2 and positive influenza A/B results arereported to [facility]. 11/01/2024 4:48 PM EST 11/01/2024 4:52 PM EST us Generic External Data Provider LAB MICROBIOLOGY - GENERAL ORDERABLES Final Result Performing Organization Address [facility]/ZIP Co de Phone Number [facility] [address] [place] [phone] * (ABNORMAL) CBC auto differential (11/01/2024 4:48 PM EST) White Blood Count 6.2 4.8 - 10.8 X10*3/uL [facility] Red Blood Count 4.26 4.20 - 5.50 X10*6/uL [facility] LABS Hemoglobin 12.1 12.0 - 16.0 g/dl [facility] Hematocrit 36.1(L) 37.0 - 47.0 % [facility] Mean Corpuscular Volume 84.7 80.0 - 98.0 fL [facility] Mean Corpuscular Hemoglobin 28.4 27.0 - 33.0 pg [facility] Mean Corpuscular HGB Conc 33.5 31.0 - 35.0 g/dl [facility] Red Cell Distribution Width 12.6 11.0 - 16.0 % [facility] Platelet Count 307 160 - 400 X10*3/uL [facility] Mean Platelet Volume 8.8(L) 9.4 - 12.3 fL [facility] Neutrophils Percent Auto 62.8 45 - 73 % [facility] Imm Gran Pct Auto 0.5(H) 0.0 - 0.4 % [facility] Lymphocytes Percent Auto 27.4 20 - 40 % [facility] Monocytes Percent Auto 6.9 2 - 11 % [facility] Eosinophils Percent Auto 1.8 0 - 4 % [facility] Basophils Percent Auto 0.6 0 - 2 % [facility] NRBC Pct Auto 0.0 0.0 - 0.2 /100WBC [facility] Neutrophils Absolute Auto 3.9 2.0 - 8.3 x10*3/uL [facility] Imm Gran Abs Auto 0.03 0.00 - 0.03 X10*3/uL [facility] Lymphocytes Absolute Auto 1.7 1.2 - 4.9 X10*3/uL [facility] Monocytes Absolute Auto 0.4 0.1 - 1.2 X10*3/uL [facility] Eosinophils Absolute Auto 0.1 0.0 - 0.4 X10*3/uL [facility] Basophils Absolute Auto 0.0 0.0 - 0.2 X10*3/uL [facility] NRBC Abs Auto 0.000 0.0 - 0.012 X10*3/uL [facility] 11/01/2024 4:48 PM EST 11/01/2024 4:52 PM EST Generic External Data Provider LAB BLOOD ORDERAB LES Final Result Performing Organization Address [facility] Co de Phone Number [facility] [address] [place] [phone] * Partial Thromboplastin Time, Activated (APTT) (11/01/2024 4:48 PM EST) Partial Thromboplastin Time 28.0 26.0 - 36.8 SEC [facility] Comment:For information rega rding the monitoring of direct thrombininhibitors, please refer to Pharmacy. 11/01/2024 4:48 PM EST 11/01/2024 4:52 PM EST Generic External Data Provider LAB BLOOD ORDERAB LES Final Result Performing Organization Address [facility] Co de Phone Number [facility] [address] [place] [phone] * Prothrombin Time-INR (11/01/2024 4:48 PM EST) Prothrombin Time 11.6 10.9 - 12.4 SEC [facility] INTERNATIONAL NORM RATIO 1.0 0.9 - 1.1 [facility] Comment:INTERNATIONAL NORMAL IZED RATIO (INR) REFERENCE RANGES Reference RangeFor patients not on anticoagulant therapy: 0.9 - 1.1INR ranges for oral anticoagulanttherapy:For prevention and treatment of venous thrombosis and pulmonary embolism: 2.0 - 3.0For acute myocardial infarction with aspirin therapy: 2.0 - 3.0For acute myocardial infarction without aspirin therapy: 3.0 - 4.0For patients with mechanical prosthetic heart valves: 2.5 - 3.5 11/01/2024 4:48 PM EST 11/01/2024 4:52 PM EST Generic External Data Provider LAB BLOOD ORDERAB LES Final Result Performing Organization Address [facility] Co de Phone Number [facility] [address] [place] [phone] * B Type Natriuretic Peptide (BNP) (11/01/2024 4:48 PM EST) Pathologist [facility] B Type Natriuretic Peptide <10 <100 pg/mL [facility] Comment:For those patients w ho are being treated with Natrecor(nesiritide, recombinant BNP), BNP testing should beperformed at least two hours post treatment in order toensure that only endogenous levels of BNP are detected. 11/01/2024 4:48 PM EST 11/01/2024 4:52 PM EST us Generic External Data Provider LAB BLOOD ORDERAB LES Final Result Performing Organization Address [facility] Co de Phone Number [facility] [address] [place] [phone] * (ABNORMAL) Comprehensive Metabolic Panel (11/01/2024 4:48 PM EST) Pathologist [facility] Sodium 139 135 - 145 mmol/L [facility] Potassium 4.4 3.3 - 5.1 mmol/L [facility] Comment:Slight Hemolysis.Int erpret result with caution. Chloride 105 96 - 108 mmol/L [facility] Carbon Dioxide 25 22 - 29 mmol/L [facility] Anion Gap 13 12 - 20 [facility] Urea Nitrogen (BUN) 23(H) 9 - 16 mg/dL [facility] Creatinine, Serum 0.75 0.5 - 1.4 mg/dL [facility] Creatinine Clr Calc Pharmacy 76.1 [facility] Comment:Provided height and weight: 149.86 cm,72.575 kg.eGFR (calculated from the MDRD study equation) and eCrCl(calculated from the Cockcroft-Gault equation) are based ondifferent parameters and may not yield comparable results.If eCrCl result is absurd, please check patient'sheight/weight. Estimated Glomerular Filt Rate >60 [facility] Comment:Chronic Kidney Disea se: Estimated GFR < 60 mL/min/1.16b4Ugvjty Kidney Disease: Estimated GFR < 15 mL/min/1.73m2 Glucose 102 60 - 115 mg/dL [facility] Calcium 9.5 8.4 - 10.2 mg/dL [facility] Bilirubin, Total 0.2 0.0 - 1.0 mg/dL [facility] Aspartate Amino Transferase 32(H) 5 - 31 U/L [facility] Comment:Slight Hemolysis.Int erpret result with caution. Alanine Aminotransferase 29 0 - 31 U/L [facility] Total Protein 7.7 6.5 - 8.0 g/dL [facility] Albumin Level 4.2 3.5 - 5.0 g/dL [facility] Alkaline Phosphatase 126(H) 39 - 117 U/L [facility] 11/01/2024 4:48 PM EST 11/01/2024 4:52 PM EST us Generic External Data Provider LAB BLOOD ORDERAB LES Final Result [facility] [address] [place] [phone] [phone] * XR Chest 1 View (11/01/2024 3:49 PM EST) Anatomical Region Laterality Modality Chest Radiographic Sherrie ging 11/01/2024 3:49 PM EST Narrative 11/01/2024 4:41 PM EST ? [facility] ?[address] ?[place] [address] ?XRay Report ? Signed ? Patient: Brandon,Renita ?MR#: [id number] ?? 4 ? : 1970 ?Acct:[id number] ? Age/Sex: 54 / F ?ADM Date: 01/06/25 ? Loc: HO.ED ? Attending Dr: ? Ordering Physician: Romero Carlos ?? Date of Service: 11/01/24 ?? Procedure(s): XR chest 1V ?? Accession Number(s): [id number] ? cc: Romero Carlos; Hilda Butt ? EXAMINATION: ?? XR CHEST ? CLINICAL INFORMATION: ?? Shortness of breath and chest pain. ? COMPARISON: ?? None available. ? TECHNIQUE: ?? Frontal view of the chest was obtained. ? FINDINGS: ?? The lungs are well-expanded and clear acute process. Heart size and ?? pulmonary vascularity is normal. There are dual pacer electrodes in ?? right atrium and right ventricle. No gross bony abnormality seen. ? XR/XR chest 1V ?? IMPRESSION: ?? Unremarkable chest examination. ? Electronically signed by: ??Alhaji Hussein MD ??11/01/2024 04:38 PM EST RP ? Dictated By: ?Alhaji Hussein MD ? Signed By: ?<Electronically signed by Alhaji Hussein MD in OV> ?11/01/24 1638 ? DD/ 1549 ? TD/TT: 11/01/24 1600 ? Retirement Actuary: MSM ? Procedure Note Charlie Stinson - 11/01/[address] [address] XRay Report Signed Patient: Renita BrandonMR#: [id number] 4 : 1970Acct:[id number] Age/Sex: 54 / FADM Date: 11/01/24 Loc: .ED Attending Dr: Ordering Physician: Romero Carlos Date of Service: 11/01/24 Procedure(s): XR chest 1V Accession Number(s): [id number] cc: Romero Carlos; Hilda Butt EXAMINATION: XR CHEST CLINICAL INFORMATION: Shortness of breath and chest pain. COMPARISON: None available. TECHNIQUE: Frontal view of the chest was obtained. FINDINGS: The lungs are well-expanded and clear acute process. Heart size and pulmonary vascularity is normal. There are dual pacer electrodes in right atrium and right ventricle. No gross bony abnormality seen. XR/XR chest 1V IMPRESSION: Unremarkable chest examination. Electronically signed by: Alhaji Hussein MD 11/01/2024 04:38 PM EST Dictated By: Alhaji Hussein MD Signed By: <Electronically signed by Alhaji Hussein MD in OV> 11/01/24 1638 DD/ 1549 TD/TT: 11/01/24 1600 Retirement Actuary: [facility] External Provider IMG XR PROCEDURES Final Result * BI Mammogram Diagnostic Tomosynthesis Bilateral (07/15/2024 10:45 AM EDT) Anatomical Region Laterality Modality Breast Bilateral Mammography 07/15/2024 10:4 5 AM EDT Narrative 07/15/2024 12:02 PM EDT ? [facility] ? [address] ?[place] [address] ? Mammography Report ? Signed ? Patient: Renita Brandon ?MR#: [id number] ?? 4 ? : 1970 ?Acct:[id number] ? Age/Sex: 53 / F ?ADM Date: 07/15/24 ? Loc: HO.MAMMO ? Attending Dr: Hilda Butt MD ? Ordering Physician: Hilda Butt ?Results: 2Benign F ?? indings ? Date of Service: 07/15/24 ?Follow Up: 1 Year From Orig ?? inal Mammogram ? Procedure(s): MM tomosynthesis diagnostic BI ?? Accession Number(s): [id number] ? cc: DaquanHilda ? EXAMINATION: ?? MM DIAGNOSTIC DIGITAL BREAST TOMOSYNTHESIS, BILATERAL ? CLINICAL INFORMATION: ? 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 Recent benign left stereotactic biopsy ?? upper outer left breast 10/10/2022. Patient due for yearly. ? COMPARISON: ?? Mammography: 07/14/2023, 08/28/2022, 01/14/2022, 11/26/2021, 12/25/2017, ?? and dating back to 2017. Stereotactic biopsy left breast 10/10/2022, ?? and 03/07/2022. ? TECHNIQUE: ?? Digital breast tomosynthesis is performed in both the craniocaudal and ?? mediolateral oblique views along with computer-aided detection (CAD). ?? Synthesized 2D images are generated from the tomosynthesis. In addition ?? to standard views, added full field left MLO view, full field 3-D left ?? ML view, and spot magnification 2-D left CC x 1 and ML views x 2 were ?? obtained of the left lumpectomy site. ? FINDINGS: ?? There are scattered areas of fibroglandular density (ACR BI-RADS breast ?? composition Category b). ? There are stable posttreatment changes in the upper outer left breast ?? related to lumpectomy and radiation. No evidence of recurrence seen. ?? There is a mini cork biopsy clip present in the upper inner left ?? breast, with only a few tiny remaining surrounding punctate ?? calcifications. No suspicious changes. ? The right breast demonstrates 3 stable oval small circumscribed ?? nodules, presumably cysts, lymph nodes, or other benign entities, ?? remaining unchanged from 11/26/2021. There are stable dermal ?? calcifications in the far inferior slightly lateral right breast, and ?? stable grouped dystrophic benign calcifications in the upper outer ?? right breast, anterior one third. ??The parenchymal pattern of both ?? breasts is unchanged from previous postoperative examinations. ? MM/MM tomosynthesis diagnostic BI ?? IMPRESSION: ?? There are no findings suspicious for malignancy in either breast. There ?? are stable benign findings. ? Recommend the patient continue diagnostic mammography 12 months time to ?? complete three-year postop protocol. ? ASSESSMENT: ? BI-RADS BI-RADS 2 - Benign Findings ? RECOMMENDATION: ?? 1 year F/U ? Results were provided to the patient at time of visit by the ?? technologist. ? This patient's information was entered into a reminder system with a ?? target due date for their next mammogram. ? Electronically signed by: ??Amauri Lopez MD ??07/15/2024 11:58 AM EDT RP ? Dictated By: ?Amauri Lopez MD ? Signed By: ?<Electronically signed by Amauri Lopez MD in OV> ?07/15/24 1158 ? DD/ 1045 ? TD/TT: 07/15/24 1119 ? Retirement Actuary: ? Procedure Note Milad, [facility] [address] [place] [address] Mammography Report Signed Patient: Renita Brandon#: [id number] 4 : 1970Acct:[id number] Age/Sex: 53 / FADM Date: 07/15/24 Loc: HO.MAMMO Attending Dr: Hilda Butt MD Ordering Physician: Sunil Buttults: 2Benign F indings Date of Service: 07/15/24Follow Up: 1 Year From Orig inal Mammogram Procedure(s): MM tomosynthesis diagnostic BI Accession Number(s): [id number] cc: Hilda Butt EXAMINATION: MM DIAGNOSTIC DIGITAL BREAST TOMOSYNTHESIS, BILATERAL CLINICAL INFORMATION: Postoperative protocol year 2 status post excision left IDC with conservation therapy Feb, 2022. Recent benign left stereotactic biopsy upper outer left breast 10/10/2022. Patient due for yearly. COMPARISON: Mammography: 07/14/2023, 08/28/2022, 01/14/2022, 11/26/2021, 12/25/2017, and dating back to 2017. Stereotactic biopsy left breast 10/10/2022, and 03/07/2022. TECHNIQUE: Digital breast tomosynthesis is performed in both the craniocaudal and mediolateral oblique views along with computer-aided detection (CAD). Synthesized 2D images are generated from the tomosynthesis. In addition to standard views, added full field left MLO view, full field 3-D left ML view, and spot magnification 2-D left CC x 1 and ML views x 2 were obtained of the left lumpectomy site. FINDINGS: There are scattered areas of fibroglandular density (ACR BI-RADS breast composition Category b). There are stable posttreatment changes in the upper outer left breast related to lumpectomy and radiation. No evidence of recurrence seen. There is a mini cork biopsy clip present in the upper inner left breast, with only a few tiny remaining surrounding punctate calcifications. No suspicious changes. The right breast demonstrates 3 stable oval small circumscribed nodules, presumably cysts, lymph nodes, or other benign entities, remaining unchanged from 11/26/2021. There are stable dermal calcifications in the far inferior slightly lateral right breast, and stable grouped dystrophic benign calcifications in the upper outer right breast, anterior one third. The parenchymal pattern of both breasts is unchanged from previous postoperative examinations. MM/MM tomosynthesis diagnostic BI IMPRESSION: There are no findings suspicious for malignancy in either breast. There are stable benign findings. Recommend the patient continue diagnostic mammography 12 months time to complete three-year postop protocol. ASSESSMENT: BI-RADS BI-RADS 2 - Benign Findings RECOMMENDATION: 1 year F/U Results were provided to the patient at time of visit by the technologist. This patient's information was entered into a reminder system with a target due date for their next mammogram. Electronically signed by: Amauri Lopez MD 07/15/2024 11:58 AM EDT Dictated By: Amauri Lopez MD Signed By: <Electronically signed by Amauri Lopez MD in OV> 07/15/24 1158 DD/ 1045 TD/TT: 07/15/24 1119 Retirement Actuary: us Hilda Butt MD IMG BI PROCEDURES Final Result * HPV mRNA E6/E7 w/Reflex to HPV Genotypes 16, 18/45 (02/20/2024 12:12 PM EDT) HPV nRNA E6/E7 Not Detected Not Detected [facility] Comment:Methodology: Transcr iption-Mediated AmplificationThis assay detects E6/E7 viral messenger RNA (mRNA) from 14high-risk HPV types (16,18,31,33,35,39,45,51,52,56,58,59,66,68).Cervical sources are required for HPV testing.If a vaginal source from a patient who has had atotal hysterectomy with removal of cervix wassubmitted, please contact the testing laboratoryfor alternative testing options.For additional information, please refer tohttp://education.[employer] [employer] [facility]/faq/IBP392v7(This link if provided for information/educational purposes only.)THIS TEST WAS PERFORMED AT:[facility] [place] [id number] GARCIA MD HPV mRNA E6/E7 [facility] HPV 16 RNA [facility] HPV 18/45 RNA [facility] 02/20/2024 12:1 2 PM EDT 02/24/2024 7:30 AM EDT Hilda Butt MD LAB CYTOLOGY ORDERABLES Final Result [facility] [address] [place] [address] [phone] * Pap Smear (02/20/2024 12:12 PM EDT) 02/20/2024 12:1 2 PM EDT 02/24/2024 7:30 AM EDT Narrative [facility] - 03/13/2024 5:52 PM EDT ----- ------- Name: Renita Brandon ?Age/Sex: 53/F ? : 1970 Unit#: [id number] ?? Attend Dr: Hilda Butt ?Re02/20/24 ?Status: DEP REF ? Location: HO.LNP ?Disch: ? ----- ------- SPEC : [id number] ? RECD: 02/24/24 ? STATUS: ??SOUT ? REQ NUM: [id number] ? ANNE: 02/20/24-1211 ? SUBM DR: Hilda Butt ? ENTERED: ??02/24/24 ?SP TYPE: Pap Smr ?OTHR DR: ? ORDERED: ??Pap Smear ? Interpretation ?? Satisfactory for evaluation. ?? Negative for intraepithelial lesion or malignancy. ? HPV mRNA E6/E7: ?NOT DETECTED ? This assay detects E6/E7 viral messenger RNA (mRNA) from 14 high-risk HPV types (16, 18, ?? 31, 33, 35, 39, 45, 51, 52, 56, 58, 59, 66, 68) ? HPV testing performed by [facility], [place], [place]. ??See reference laboratory ?? portion of the EMR for entire report. ?Clinical Information LMP: Postmenopausal Previous PAP test: 2019, NILM Other surgery:Hysterectomy, cervical sparing in 2021 for fibroids Other history: No prior abnormal ? Material Received ?? ThinPrep-Cervical ----- ------- Signed (signature on file) Amparo Cummings Michelle 03/13/241751 ? ----- ------- ? END OF REPORT ? us Hilda Butt MD LAB CYTOLOGY ORDERABLES Final Result [facility] [address] [place] [address] [phone] * HEPATITIS C AB W/REFL TO HCV RNA, QN, PCR (05/09/2022 4:02 PM EDT) HEPATITIS C ANTIBODY NON-REACT KRISTIN NON-REACT KRISTIN [facility] INDEX 0.08 <1.00 [facility] Comment: ?? HCV antibody was non-reactive. There is no laboratory ?? evidence of HCV infection. ?? In most cases, no further action is required. However, if recent HCV exposure is suspected, a test for HCV RNA (test code 35409) is suggested. ?? For additional information please refer to http://[employer].[place] [facility]/faq/HEJ52k3 (This link is being provided for informational/ educational purposes only.) ?? 05/09/2022 4:02 PM EDT Tara Paniagua [facility] HISTORICAL/NON ORDERABLE LABS Final Result [facility] [address] * HIV 1/2 ANTIGEN/ANTIBODY,FOURTH GENERATION W/RFL (05/09/2022 4:02 PM EDT) Pathologist [facility] HIV-1/2 ANTIGEN AND ANTIBODIES, 4TH GENERATION W/ REFLEX NON-REACT KRISTIN NON-REACT KRISTIN [facility] Comment: HIV-1 antigen and HIV-1/HIV-2 antibodies were not detected. There is no laboratory evidence of HIV infection. ?? PLEASE NOTE: This information has been disclosed to you from records whose confidentiality may be protected by state law. ??If your state requires such protection, then the state law prohibits you from making any further disclosure of the information without the specific written consent of the person to whom it pertains, or as otherwise permitted by law. A general authorization for the release of medical or other information is NOT sufficient for this purpose. ? For additional information please refer to http://[employer].[place] [facility]/faq/ZND217 (This link is being provided for informational/ educational purposes only.) ? The performance of this assay has not been clinically validated in patients less than 2 years old. ?? 05/09/2022 4:02 PM EDT Tara Paniagua [facility] LAB BLOOD ORDERABLES Final Res ult [facility] [address] [place] [address], * (ABNORMAL) LIPID PANEL, STANDARD (03/29/2022 3:50 PM EDT) Chol/HDLC Ratio 5.3(H) <5.0 (calc) [facility] Cholesterol, Total 205(H) <200 mg/dL [facility] HDL Cholesterol 39(L) > OR = 50 mg/dL [facility] LDL Cholesterol 132(H) mg/dL (calc) [facility] Comment: Reference range: <100 ?? Desirable range <100 mg/dL for primary prevention; ?? <70 mg/dL for patients with CHD or diabetic patients ?? with > or = 2 CHD risk factors. ?? LDL-C is now calculated using the Kirk-Green ?? calculation, which is a validated novel method providing ?? better accuracy than the Friedewald equation in the ?? estimation of LDL-C. ?? Kirk NEWSOME et al. RUTH. 2013;310(19): 0359-5526 ?? (http://education.[employer]/faq/LLH453) Non-HDL Cholesterol 166(H) <130 mg/dL (calc) [facility] Comment: For patients with diabetes plus 1 major ASCVD risk ?? factor, treating to a non-HDL-C goal of <100 mg/dL ?? (LDL-C of <70 mg/dL) is considered a therapeutic ?? option. Triglycerides 203(H) <150 mg/dL [facility] Comment: ?? If a non-fasting specimen was collected, consider repeat triglyceride testing on a fasting specimen if clinically indicated. ?? Dunia et al. J. of Clin. Lipidol. 2015;9:129-169. ?? 03/29/2022 3:50 PM EDT Tara Paniagua RESEARCH PROJECT COORDINATOR LAB BLOOD ORDERABLES Final Res ult [facility] [address] from Last 3 Months or Most Recently Relevant to Health Maintenance Insurance [facility] Care Teams Manager Of Financial Relationship Specialty Start Date End Date Hilda Butt MD [address] [place] [phone] PCP - General Family Medicine 06/20/22
--- OUTSIDE RECORDS SUMMARY | 2024-11-22 06:15 | XMS_ITS | Encounter Summary ---
Author Organization [employer] Address [address] [place] [address] Care Team Providers Care Archival Studies Professor Name Role Phone Hilda Butt MD Primary Care Provider [phone] Reason for Visit * Reason Onset Date Comments Med Refill 01/22/2024 Encounter Details Date Type Department Care Team ([facility] st Contact Info) Description 01/22/2024 Refill [facility] [address] [place], [place] [phone] Hilda Butt MD [address] [place], [place] [phone] Social History Tobacco Use Types Packs/Day Years [...] Description 12/31/2024 11:15 AM EST Office Visit [facility] [address] [place] [phone] Hilda Butt MD [address] [place] [phone] documented as of this encounter Visit Diagnoses Not on filedocumented in this encounter Additional Health Concerns Assessment Noted Time PHQ-9 Depression Total Score: 0 11/17/19 24 10:34 AM EST documented as of this encounter Care Teams Archival Studies Professor Relationship Specialty Start Date End Date Hilda Butt MD [address] [place] [phone] PCP - General Family Medicine 06/20/22 documented as of this encounter
--- OUTSIDE RECORDS SUMMARY | 2024-11-22 06:15 | XMS_ITS | Encounter Summary ---
Author Organization [employer] Address [address] [place] [address] Care Team Providers Care Machine Rebuilder Name Role Phone Hilda Butt MD Primary Care Provider [phone] Encounter Details Date Type Department Care Team ([facility] st Contact Info) Description 11/20/2023 Abstract [facility] [address] [place], [place] [phone] Hilda Butt MD [address] [place], [place] [phone] Social History Tobacco Use Types Packs/Day Years [...] Description 12/31/2024 11:15 AM EST Office Visit [facility] [address] [place] [phone] Hilda Butt MD [address] [place] [address] documented as of this encounter Visit Diagnoses Not on filedocumented in this encounter Additional Health Concerns Assessment Noted Time PHQ-9 Depression Total Score: 0 11/17/19 24 10:34 AM EST documented as of this encounter Care Teams Machine Rebuilder Relationship Specialty Start Date End Date Hilda Butt MD [address] [place] [phone] PCP - General Family Medicine 06/20/22 documented as of this encounter
--- OUTSIDE RECORDS SUMMARY | 2024-11-22 06:15 | XMS_ITS | Encounter Summary ---
Author Organization [employer] Address [address] 7[address] [place] [address] Care Team Providers Care Airplane Coverer Name Role Phone Hilda Butt MD Primary Care Provider Reason for Visit * Reason Onset Date Comments Med Refill 11/17/2024 Encounter Details Date Type Department Care Team ([facility] st Contact Info) Description 11/17/2024 Refill [facility] MED & PEDS [address] [place], [place] [phone] Hilda Butt MD [address] [place] [address] Social History Tobacco Use Types Packs/Day Years [...] AM EDT documented as of this encounter Miscellaneous Notes * Telephone Encounter - Apple Stringer LPN - 11/17/2024 11:01 AM EST Received patient message; Refills have been requested for the following medications: Other - Petrolim ointment 42percent Next appointment 12/31/24. documented in this encounter Plan of Treatment Upcoming Encounters Date Type Department Care Team (Late st Contact Info) Description 12/31/2024 11:15 AM EST Office Visit [facility] MEDICINE [address] [place] [phone] Hilda Butt MD [address] [place] [phone] documented as of this encounter Goals Goal [...] documented as of this encounter Care Teams Airplane Coverer Relationship Specialty Start Date End Date Hilda Butt MD [address] [place] [id number] PCP - General Family Medicine 06/20/22 documented as of this encounter
--- OUTSIDE RECORDS SUMMARY | 2024-11-22 06:15 | XMS_ITS | Encounter Summary ---
Author Organization [employer] Address [address] [place] [address] Care Team Providers Care Ice Cutter Name Role Phone Hilda Butt MD Primary Care Provider [phone] Reason for Visit * Reason Onset Date Comments Med Refill 11/17/2024 Encounter Details Date Type Department Care Team ([facility] st Contact Info) Description 11/17/2024 Refill [facility] MEDICINE [address] [place], [place] [phone] Hilda Butt MD [address] [place], [place] [phone] Social History Tobacco Use Types Packs/Day Years [...] Description 12/31/2024 11:15 AM EST Office Visit [facility] MEDICINE [address] [place] [address] Hilda Butt MD [address] [place] [address] documented as of this encounter Goals Goal [...] documented as of this encounter Care Teams Ice Cutter Relationship Specialty Start Date End Date Hilda Butt MD [address] [place] [address] PCP - General Family Medicine 06/20/22 documented as of this encounter
--- OUTSIDE RECORDS SUMMARY | 2024-11-22 06:15 | XMS_ITS | Encounter Summary ---
Author Organization [employer] Address [address] [place] [address] Care Team Providers Care Industrial Sociologist Name Role Phone Hilda Butt MD Primary Care Provider [phone] Reason for Visit * Reason Onset Date Comments Med Refill 12/03/2023 Encounter Details Date Type Department Care Team ([facility] st Contact Info) Description 12/03/[address] [facility] MEDICINE [address] [place], [place] [phone] Hilda Butt MD [address] [place], [place] [phone] Low back pain at multiple sites Social History Tobacco Use Types Packs/Day Years [...] is your housing situation today? I have jadonryan samson 08/13/[address] you [...] 11:15 AM EST Office Visit [facility] MEDICINE [address] [place] [phone] Hilda Butt MD [address] [place] [address] documented as of this encounter Visit Diagnoses Diagnosis Low back pain at multiple sites documented in this encounter Additional Health Concerns Assessment Noted Time PHQ-9 Depression Total Score: 0 11/17/19 24 10:34 AM EST documented as of this encounter Care Teams Industrial Sociologist Relationship Specialty Start Date End Date Hilda Butt MD [address] [place] [phone] PCP - General Family Medicine 06/20/22 documented as of this encounter
--- OUTSIDE RECORDS SUMMARY | 2024-11-22 06:15 | XMS_ITS | Encounter Summary ---
Author Organization [employer] Address [address] [facility] 7t [place] [address] Care Team Providers Care Client Services Account Manager Name Role Phone Hilda Butt MD Primary Care Provider [phone] Reason for Visit * Reason Onset Date Comments Medication Question 11/19/2022 Encounter Details Date Type Department Care Team ([facility] Contact Info) Description 11/19/2022 Telephone [facility] MEDICINE [address] [place], [place] [phone] Hilda Butt MD [address] [place], [place] [phone] Medication Question Social History Tobacco Use Types Packs/Day Years Used Date Smoking Tobacco: Never Smokeless Tobacco: Never Alcohol Use Standard Drinks/Week [...] suspected to have Coronavirus/COVID-19? No / Unsure 11/08/2022 9:54 AM EST documented as of this encounter Miscellaneous Notes * Telephone Encounter - Salena Erwin - 12/05/2022 9:47 AM EST Form from Jayce received and will be placed on providers desk for signature. * Telephone Encounter - Mich Calabrese - 11/19/2022 2:34 PM EST Tc from Marina with jayce requesting a call back regarding nebulizer medication Please contact Marina at [phone] documented in this encounter Plan of Treatment Upcoming Encounters Date Type Department Care Team (Late st Contact Info) Description 12/31/2024 11:15 AM EST Office Visit [facility] MEDICINE [address] [place] [address] Hilda Butt MD [address] [place], [place] [phone] documented as of this encounter Visit Diagnoses Not on filedocumented in this encounter Care Teams Client Services Account Manager Relationship Specialty Start Date End Date Hilda Butt MD [address] [place], [place] [phone] PCP - General Family Medicine 06/20/22 documented as of this encounter
--- OUTSIDE RECORDS SUMMARY | 2024-11-22 06:15 | XMS_ITS | Encounter Summary ---
Author Organization [employer] Address [address] [place] [address] Care Team Providers Care Mathematical Physicist Name Role Phone Hilda Butt MD Primary Care Provider [phone] Reason for Visit * Reason Onset Date Comments Med Refill 11/05/2024 Encounter Details Date Type Department Care Team ([facility] st Contact Info) Description 11/05/2024 Refill [facility] MEDICINE [address] [place], [place] [phone] Hilda Butt MD [address] [place], [place] [phone] Social History Tobacco Use Types Packs/Day Years [...] Description 12/31/2024 11:15 AM EST Office Visit [facility] MEDICINE [address] [place] [address] Hilda Butt MD [address] [place] [address] documented as of this encounter Goals Goal [...] documented as of this encounter Care Teams Mathematical Physicist Relationship Specialty Start Date End Date Hilda Butt MD [address] [place] [address] PCP - General Family Medicine 06/20/22 documented as of this encounter
--- OUTSIDE RECORDS SUMMARY | 2024-11-22 06:15 | XMS_ITS | Encounter Summary ---
Author Organization [email or web address] Address [address] [facility] 7t [place] [address] Care Team Providers Care Retail Merchandiser Technician Name Role Phone Hilda Butt MD Primary Care Provider [phone] Reason for Visit * Reason Comments Follow-up Encounter Details Date Type Department Care Team (Latest Contact Info) Description 11/01/2024 2:15 PM EST Office Visit [facility] MEDICINE [address] [place], [place] [phone] Hilda Butt MD [address] [place], [place] [phone] Stenosis of both internal carotid arteries (Primary Dx); Vertebral artery dissection (CMS/HCC); Bipolar II disorder (CMS/HCC); Nonischemic cardiomyopathy (CMS/HCC); Infiltrating ductal carcinoma of left female breast (CMS/HCC); Dietary counseling; Exercise counseling; Class 1 obesity with serious comorbidity and body mass index (BMI) of 33.0 to 33.9 in adult, unspecified obesity type; Essential hypertension; Atherosclerosis of right carotid artery Social History Tobacco Use Types Packs/Day Years [...] AM EDT documented as of this encounter Last Filed Vital Signs Vital Sign Reading Time Taken Comments Blood Pressure 142/86 11/01/2024 2:15 PM EST Pulse 69 11/01/2024 2:15 PM EST Temperature 36.4 ??C (97.6 ??F) 11/01/2024 2:15 PM ES T Respiratory Rate 16 11/01/2024 2:15 PM EST Oxygen Saturation - - Inhaled Oxygen Concentration - - Weight 76.2 kg (168 lb) 11/01/2024 2:15 PM EST Height 149.9 cm (4' 11 ) 11/01/2024 2:15 PM EST Body Mass Index 33.93 11/01/2024 2:15 PM EST documented in this encounter Progress Notes * Hilda Butt MD - 11/01/2024 2:15 PM EST SUBJECTIVE: Renita Brandon is a 54 y.o. year old female who presents for chronic disease management. Denies recent illness, ER visit, or hospitalization. Acute Concerns: Not feeling well today, weak, dizzy, nauseated. Went to cardiac rehab at [facility] this morning and they called during her appointment with me to ask if she is doing alright, recommend ER for any symptoms.She went to the ER and was diagnosed with COVID (troponin negative and BNP <10) Needs letter for increase in ARTIST SCIENTIFIC hours after R carotid endarterectomy (planned for Nov 22, 2024) Interim Updates: Headaches, feels tinnitus in her head, pulsating MCCURDY with focus at her temples bilaterally. Diff dx: h/o R sided vertebral artery dissection versus carotid artery stenosis She is scheduled to have R endarterectomy with Dr De Anda, vascular surgery 11/22/24 01/22/24 carotid US: US/US carotid duplex BI IMPRESSION: 1. RIGHT: Moderate, hemodynamically significant stenosis of the proximal right internal carotid artery corresponding to a 50-79% stenosis by velocity criteria. 2. LEFT: Moderate, hemodynamically significant stenosis of the proximal left internal carotid artery corresponding to a 50-79% stenosis by velocity criteria. [facility] CTA head/neck done at [facility] 05/17/24, needs results to book with Dr Ramirez. I called [facility] to request read due to not being available in the system. Read placed the following day: FINDINGS: The brain is normal in morphology [...] aspect of the left vertebral artery with [id number] luminal narrowing. Right Carotid: There is moderately [...] are not well evaluated on this exam. L DCIS- followed by Dr Ken treated at [facility] on Tamoxifen for 5 years Had breast biopsy 09/2022 of L breast, non-malignant poor sleep, gets 6 hours, wakes up unrefreshed Mild COPD On Advair and Incrusa Symbicort prn, using it 3 times a day Quit smoking 5 years ago Feels SOB all the time, seeing pulmonology, could not tolerate PFTs 03/2024 daily duonebs per pulm Urinary incontinence Bladder sling 2020 placed and helpful for a little while Symptoms are now returned full force Using bed underpads Vertebral artery dissection In [address] Rodrigues for followup in [facility], [place] Was on ASA for awhile CAD/non-ischemic cardiomyopathy Had DIRECTOR OF SUSTAINABILITY PROGRAMS-D placed at [facility] 07/24/[address] Chen, device check 11/2023 and normal [place] some improvement in dizziness after placement of DIRECTOR OF SUSTAINABILITY PROGRAMS-D 11/2021 normal cath at [facility] Holter 05/2022 normal 04/2023 cards note, Dr Napier Echocardiogram from this month with LVEF 32%. In 2021, with LVEF of 35-40%. In 2016, it was 45-50%. Cardiac catheterization shows normal coronary arteries. Overall, she has got nonischemic cardiomyopathy related to left bundle-branch block. Clinically, various symptoms including fatigue, tiredness, shortness of breath, dizziness. Some of this probably from cardiomyopathy at and others seem nonspecific and possibly from the vertebral dissection. As she is already feeling dizzy, not making any medication changes. May remain on long-acting beta-blockers and losartan as before. She is also on some diuretics. Otherwise, blood pressure seems stable. Considering the fact that she has cardiomyopathy as well as left bundle-branch block, we discussed about Bi V ICD. Gave her some brochures to review. She will think about it. If she agrees, we will refer her to [facility] EP. 10/2022 cards note: echocardiogram done 07/11/2022 showed EF 35-40%, mild LVH, grade 1 diastolic dysfunction. She had a known past medical history of cardiomyopathy and left bundle branch block but had not followed with Cardiology consistently. For further evaluation she had a nuclear stress test on 02/2024 In the most recent echocardiogram, LVEF is 30-35%. Previously, in a similar range. In 2017, about 45-50%. Cardiac catheterization shows normal coronary arteries. Overall, nonischemic cardiomyopathy related to left bundle-branch block. For medications, she remains on metoprolol ER. Instead of losartan, switch to Entresto. Try spironolactone as well. On low-dose Lasix. Not clear if she will tolerate Farxiga but that will be the next choice. Check labs in a few days after the med changes. Bi V ICD is being followed on remote monitoring. LBP Lidocaine patches denied multiple times by [facility], lidocaine ointment at 4-5% also requires PA Prescribed EMLA cream taking motrin- does nothing unless she takes 800mg every day and when it wears off the pain comes right back muscle relaxer puts her to sleep and didn't help Bipolar: lack of appetite and is frequently skipping meals and eating only a few crackers during the day she is not sure if it is related to d/cing abilify or not seen by psychopharm and elected to continue without med management for her bipolar disorder Continue to revisit idea of restarting mood stabilizer COPD 06/26/24 at [facility] COPD admit 06/2024 RAST panel, add Karen Krishnan Health maintenance: Mammo- last 08/2022, with followup biopsy Colon ca- willing to accept referral now to [facility] for colonoscopy Pap- 07/2019 NIL, s/p hysterectomy non cervical sparing 01/2022 Imms- due for pneumococcal, Hep A, Hep B Patient Active Problem List Diagnosis Allergic conjunctivitis Atherosclerosis of aorta (CMS/HCC) Atherosclerosis of right carotid artery Bipolar II disorder (CMS/HCC) Dyslipidemia Class 1 obesity with serious comorbidity and body mass index (BMI) of 33.0 to 33.9 in adult Essential hypertension H/O: hysterectomy Infiltrating ductal carcinoma of left female breast (CMS/HCC) Left bundle branch block Mild chronic obstructive pulmonary disease (CMS/HCC) Steatosis of liver Carotid artery disease (CMS/HCC) Nonischemic cardiomyopathy (CMS/HCC) Vertebral artery dissection (CMS/HCC) Neck pain Mixed stress and urge urinary incontinence Gastroesophageal reflux disease without esophagitis At high risk for injury related to fall Urticarial rash Encounter for routine adult physical exam with abnormal findings Post covid-19 condition, unspecified Colon cancer screening Stenosis of both internal carotid arteries Screening for cervical cancer Past Surgical History: Procedure Laterality Date BI STEREOTACTIC GUIDED BREAST LOCALIZATION AND BIOPSY LEFT Left 10/17/2022 BI STEREOTACTIC GUIDED BREAST LOCALIZATION AND BIOPSY LEFT TOTAL ABDOMINAL HYSTERECTOMY W/ BILATERAL SALPINGOOPHORECTOMY 01/29/2022 TUBAL LIGATION Bilateral Family History Problem Relation Name Age of Onset Diabetes Mother Stroke Mother's Sister Heart disease Mother's Sister Breast cancer Neg Hx Social History Social History Narrative Lives with her spouse unemployed Review of Systems Constitutional: Positive for fatigue. Negative for chills, diaphoresis, fever and unexpected weightchange. HENT: Negative. Respiratory: Negative. Gastrointestinal: Positive for nausea. Musculoskeletal: Positive for myalgias. Neurological: Positive for headaches. OBJECTIVE: Vitals: 11/01/24 1415 BP: (!) 142/86 BP Location: Right arm Patient Position: Sitting BP Cuff Size: Adult Pulse: 69 Resp: 16 Temp: 97.6 ??F (36.4 ??C) TempSrc: Temporal Weight: 168 lb (76.2 kg) Height: 4' 11 (1.499 m) Physical Exam Vitals and nursing note reviewed. Constitutional: Appearance: Normal appearance. HENT: Head: Normocephalic and atraumatic. Cardiovascular: Rate and Rhythm: Normal rate and regular rhythm. Pulses: Normal pulses. Heart sounds: Normal heart sounds. Pulmonary: Effort: Pulmonary effort is normal. Breath sounds: Normal breath sounds. Skin: General: Skin is warm and dry. Neurological: General: No focal deficit present. Mental Status: She is alert and oriented to person, place, and time. Psychiatric: Mood and Affect: Mood normal. Behavior: Behavior normal. ASSESSMENT/PLAN Problem List Items Addressed This Visit Atherosclerosis of right carotid artery Bipolar II disorder (CMS/HCC) Class 1 obesity with serious comorbidity and body mass index (BMI) of 33.0 to 33.9 in adult Essential hypertension Infiltrating ductal carcinoma of left female breast (CMS/HCC) Nonischemic cardiomyopathy (CMS/HCC) Current Assessment & Plan Had DIRECTOR OF SUSTAINABILITY PROGRAMS-D placed by Dr Chen at [facility] 9.28.23 Dizziness and SOB had improved immediately after placement, then worse again after COVID Supposed to undergo 24-32 weeks of cardiac rehab, went to 4 and then authorization Restarted cardiac rehab this month, had session this AM and they called her afterwards asking abouther symptoms, with nausea and fatigue, encouraged to go to ER, ruled out for ACS there Vertebral artery dissection (CMS/HCC) Stenosis of both internal carotid arteries - Primary Current Assessment & Plan Followed by cards and vascular for this 12/2023 study 50-79% stenosis yeny, CTA 05/19 increased to 80-99% R side Will have R endarterectomy 11/22/24 Letter given for increased ARTIST [employer]ENTIFIC hours in post-op period ER precautions Other Visit Diagnoses Dietary counseling eat whole foods, low fat diet Exercise counseling continue with cardiac rehab Follow Up: 3 months or sooner prn Allergies Allergen Reactions Lisinopril Cough Current Outpatient Medications: Banophen 25 MG tablet, , Disp: , Rfl: albuterol 108 (90 Base) MCG/ACT inhaler, Inhale 2 puffs every 4 (four) hours if needed for wheezingor shortness of breath., Disp: 18 g, Rfl: 11 Ascorbic Acid (vitamin C) 250 MG tablet, TAKE 1 TABLET BY MOUTH EACH MORNING WITH IRON ^1R1, Disp: 90 tablet, Rfl: 3 aspirin (Aspirin Low Dose) 81 MG EC tablet, Take 1 tablet (81 mg) by mouth Once per day. TAKE 1 TABLET BY MOUTH EVERY DAY, Disp: 90 tablet, Rfl: 3 atorvastatin (Lipitor) 80 MG tablet, TAKE ONE TABLET BY MOUTH EVERY MORNING ^1R1, Disp: 90 tablet, Rfl: 3 betamethasone valerate (Valisone) 0.1 % ointment, APPLY TO AFFECTED AREA(S) OF FINGER SPARINGLY ONCE DAILY FOR 7-10 DAYS (BULK), Disp: 15 g, Rfl: 1 Breztri Aerosphere 160-9-4.8 MCG/ACT aerosol, Take 2 puffs by mouth 2 times daily., Disp: , Rfl: Calcium + Vitamin D3 600-10 MG-MCG tablet, TAKE ONE TABLET BY MOUTH TWICE A DAY ^1R1,1R4, Disp: 360tablet, Rfl: 0 cetirizine (ZyrTEC) 10 MG tablet, TAKE 1 TABLET BY MOUTH EVERY DAY, Disp: 90 tablet, Rfl: 3 D3 Super Strength 50 MCG (2000 UT) capsule, TAKE 1 CAPSULE BY MOUTH EVERY MORNING, Disp: 90 capsule, Rfl: 3 Emollient (DermaPhor) ointment, APPLY TO AFFECTED AREA(S) OF DRY SKIN NEEDED (BULK), Disp: 396 g, Rfl: 3 Entresto 24-26 MG tablet, Take 1 tablet by mouth 2 times daily., Disp: , Rfl: ferrous sulfate (FeroSul) 325 (65 Fe) MG tablet, TAKE ONE TABLET BY MOUTH EVERY OTHER DAY IN THE MORNING, Disp: 45 tablet, Rfl: 3 fish oil (Union-3) 500 MG capsule, Take 1 capsule (500 mg) by mouth Once per day., Disp: 28 capsule, Rfl: 11 fluticasone (Flonase Allergy Relief) 50 MCG/ACT nasal spray, SPRAY 2 SPRAYS INTO EACH NOSTRIL TWICEA DAY, Disp: 16 g, Rfl: 3 furosemide (Lasix) 20 MG tablet, TAKE 1 TABLET BY MOUTH TWICE DAILY IN THE MORNING AND IN THE EVENING ^1R1,1R3, Disp: 270 tablet, Rfl: 3 ibuprofen 800 MG tablet, TAKE ONE TABLET BY MOUTH EVERY 8 HOURS NEEDED FOR MILD OR MODERATE PAIN(VIAL), Disp: 90 tablet, Rfl: 1 ipratropium-albuterol (Duo-Neb) 0.5-2.5 mg/3 mL nebulizer solution, USE 3 ML VIA NEBULIZER EVERY 6 HOURS NEEDED FOR WHEEZING, Disp: , Rfl: lidocaine-prilocaine (Emla) 2.5-2.5 % cream, APPLY TOPICALLY EVERY MORNING, Disp: 100 g, Rfl: 3 liver oil-zinc oxide (Desitin) 40 % ointment, APPLY TOPICALLY TO RECTUM DAILY IF NEEDED FOR IRRITATION, Disp: 113 g, Rfl: 3 metoprolol succinate XL (Toprol-XL) 50 MG 24 hr tablet, Take 1 tablet (50 mg) by mouth Once per day. Do not crush or chew., Disp: 90 tablet, Rfl: 3 montelukast (Singulair) 10 MG tablet, Take 1 tablet (10 mg) by mouth at bedtime., Disp: 90 tablet, Rfl: 3 pantoprazole (ProtoNix) 40 MG EC tablet, TAKE 1 TABLET BY MOUTH TWICE DAILY IN THE MORNING AND AT BEDTIME ^1R1,1R4, Disp: 120 tablet, Rfl: 3 Petrolatum 42 % ointment, APPLY TOPICALLY TO AFFECTED AREA(S) NEEDED DAILY FOR DRY SKIN, Disp: ,Rfl: sertraline (Zoloft) 50 MG tablet, Take 1 tablet (50 mg) by mouth Once per day., Disp: 90 tablet, Rfl: 2 Spacer/Aero-Holding Chambers (AeroChamber MV) inhaler, Use as instructed, Disp: 1 each, Rfl: 2 spironolactone (Aldactone) 25 MG tablet, Take 1 tablet by mouth Once per day., Disp: , Rfl: triamcinolone (Kenalog) 0.1 % cream, APPLY A THIN LAYER TOPICALLY TO THE AFFECTED AREA(S) TWICE A DAY, Disp: 454 g, Rfl: 1 Burundian Translation: Patient is bilingual and declines translation services documented in this encounter Miscellaneous Notes * Assessment & Plan Note - Hilda Butt MD - 11/03/2024 8:20 AM ESTAssociated Problem(s): Nonischemic cardiomyopathy (CMS/HCC) Had DIRECTOR OF SUSTAINABILITY PROGRAMS-D placed by Dr Chen at [facility] 9.28.23 Dizziness and SOB had improved immediately after placement, then worse again after COVID Supposed to undergo 24-32 weeks of cardiac rehab, went to 4 and then authorization Restarted cardiac rehab this month, had session this AM and they called her afterwards asking abouther symptoms, with nausea and fatigue, encouraged to go to ER, ruled out for ACS there * Assessment & Plan Note - Hilda Butt MD - 11/03/2024 8:18 AM ESTAssociated Problem(s): Stenosis of both internal carotid arteries Followed by cards and vascular for this 12/2023 study 50-79% stenosis yeny, CTA 05/19 increased to 80-99% R side Will have R endarterectomy 11/22/24 Letter given for increased ARTIST [employer]ENTIFIC hours in post-op period ER precautions documented in this encounter Plan of Treatment Upcoming Encounters Date Type Department Care Team (Late st Contact Info) Description 12/31/2024 11:15 AM EST Office Visit [facility] MEDICINE [address] [place] [address] Hilda Butt MD [address] [place] [address] documented as of this encounter Goals Goal Patient Goal Type Associated Problems Recent Progress Patient-Stated? Author Blood Pressure < 140/90 Blood Pressure 142/86( 025 2:15 PM EST) No Daria Cardoso, PharmD documented as of this encounter Visit Diagnoses Diagnosis Stenosis of both internal carotid arteries- Primary Vertebral artery dissection (CMS/HCC) Dissection of vertebral artery Bipolar II disorder (CMS/HCC) Other bipolar disorders Nonischemic cardiomyopathy (CMS/HCC) Other primary cardiomyopathies Infiltrating ductal carcinoma of left female breast (CMS/HCC) Dietary counseling Dietary surveillance and counseling Exercise counseling Class 1 obesity with serious comorbidity and body mass index (BMI) of 33.0 to 33.9 in adult, unspecified obesity type Essential hypertension Unspecified essential hypertension Atherosclerosis of right carotid artery documented in this encounter Additional Health Concerns Assessment Noted Time PHQ-9 Depression Total Score: 0 11/17/19 24 10:34 AM EST documented as of this encounter Care Teams Retail Merchandiser Technician Relationship Specialty Start Date End Date Hilda Butt MD [address] [place], [place] [phone] PCP - General Family Medicine 06/20/22 documented as of this encounter
--- OUTSIDE RECORDS SUMMARY | 2024-11-22 06:15 | XMS_ITS | Encounter Summary ---
Author Organization [employer] Address [address] [facility] 7t [place] [address] Care Team Providers Care Hand Surgeon Name Role Phone Hilda Butt MD Primary Care Provider [phone] Reason for Visit * Reason Onset Date Comments Med Refill 04/22/2024 Encounter Details Date Type Department Care Team ([facility] st Contact Info) Description 04/22/2024 Refill [facility] [address] [place], [place] [phone] Hilda Butt MD [address] [place], [place] [phone] Social History Tobacco Use Types Packs/Day Years [...] Description 12/31/2024 11:15 AM EST Office Visit [facility] [address] [place] [address] [phone] Hilda Butt MD [address] [place] [address] documented as of this encounter Goals Goal [...] documented as of this encounter Care Teams Hand Surgeon Relationship Specialty Start Date End Date Hilda Butt MD [address] [place] [phone] PCP - General Family Medicine 06/20/22 documented as of this encounter
--- OUTSIDE RECORDS SUMMARY | 2024-11-22 06:15 | XMS_ITS | Encounter Summary ---
Author Organization [employer] Address [address] [facility] [address] [place] [address] Care Team Providers Care Metal Mockup Maker Name Role Phone Hilda Butt MD Primary Care Provider [phone] Encounter Details Date Type Department Care Team ([facility] Contact Info) Description 11/01/2024 Orders Only [facility] External Provider, [facility] Social History Tobacco Use Types Packs/Day Years [...] Description 12/31/2024 11:15 AM EST Office Visit [facility] [address] [place], [place] [phone] Hilda Butt MD [address] [place] [address] documented as of this encounter Goals Goal Patient Goal Type Associated Problems Recent Progress Patient-Stated? Author Blood Pressure < 140/90 Blood Pressure 142/86( 025 2:15 PM EST) No Daria Cardoso, Holly documented as of this encounter Procedures Procedure Name Priority Date/Time Associated Diagnosis Comments STREP A NUCLEIC ACID Routine 11/01/2024 4:48 PM EST HIGH SENSITIVITY TROPONIN I Routine 11/01/2024 4:48 PM EST SARS COV2/INFLUENZA A/B AND RSV RNA QL NAAT Routine 11/01/2024 4:48 PM EST CBC WITH AUTO DIFFERENTIAL Routine 11/01/2024 4:48 PM EST APTT Routine 11/01/2024 4:48 PM EST PROTHROMBIN TIME-INR Routine 11/01/2024 4:48 PM EST B TYPE NATRIURETIC PEPTIDE (BNP) Routine 11/01/2024 4:48 PM EST COMPREHENSIVE METABOLIC PANEL Routine 11/01/2024 4:48 PM EST XR CHEST 1 VIEW Routine 11/01/2024 3:49 PM EST documented in this encounter Results * (ABNORMAL) SARS-CoV-2 RNA, Influenza A/B, and RSV RNA, Ql NAAT (11/01/2024 4:48 PM EST) Influenza A PCR NEGATIVE Negative [facility] Influenza B PCR NEGATIVE Negative [facility] Resp Syncy Virus RNA Qual PCR NEGATIVE Negative [facility] SARS COV2 PCR POSITIVE(A) Negative [facility] Comment:All test results mus t [...] use by authorized laboratories.Testing performed on the [employer] GeneXpert utilizingreal-time RT-PCR.All SARS CoV2 and positive influenza A/B results arereported to [facility]. 11/01/2024 4:48 PM EST 11/01/2024 4:52 PM EST us Generic External Data Provider LAB MICROBIOLOGY - GENERAL ORDERABLES Final Result [facility] [address] [place] [phone] * Strep A Nucleic Acid (11/01/2024 4:48 PM EST) [employer] SERIAL# [id number] [facility] Strep A Nucleic Acid Negative Negative [facility] Comment:All test results mus t be correlated with clinical findings.This test has not been evaluated for monitoring treatment ofinfection.Additional follow-up testing using the culture method isrequired if the result is negative and clinical symptomspersist, or in the event of an acute rheumatic feveroutbreak. 11/01/2024 4:48 PM EST 11/01/2024 4:52 PM EST Generic External Data Provider LAB MICROBIOLOGY - GENERAL ORDERABLES Final Result Performing Organization Address [facility] Co de Phone Number [facility] [address] [place] [phone] * High Sensitivity Troponin I (11/01/2024 4:48 PM EST) Pathologist [facility] TROPONIN I HIGH SENSITIVITY <2.7 <3.5 - 17.0 ng/L [facility] Comment:The Munoz high sens itivity Troponin-I results should beused in conjunction with other diagnostic information suchas ECG, clinical observations and information, and patientsymptoms to aid in the diagnosis of IL. 11/01/2024 4:48 PM EST 11/01/2024 4:52 PM EST Generic External Data Provider LAB BLOOD ORDERAB LES Final Result Performing Organization Address [facility] Phone Number [facility] [address] [place] [phone] * B Type Natriuretic Peptide (BNP) (11/01/2024 4:48 PM EST) [facility] B Type Natriuretic Peptide <10 <100 pg/mL [facility] Comment:For those patients w ho are being treated with Natrecor(nesiritide, recombinant BNP), BNP testing should beperformed at least two hours post treatment in order toensure that only endogenous levels of BNP are detected. 11/01/2024 4:48 PM EST 11/01/2024 4:52 PM EST Generic External Data Provider LAB BLOOD ORDERAB LES Final Result Performing Organization Address [facility] Co de Phone Number [facility] [address] [place] [phone] * (ABNORMAL) Comprehensive Metabolic Panel (11/01/2024 4:48 PM EST) Sodium 139 135 - 145 mmol/L [facility] Potassium 4.4 3.3 - 5.1 mmol/L [facility] Comment:Slight Hemolysis.Int erpret result with caution. Chloride 105 96 - 108 mmol/L [facility] Carbon Dioxide 25 22 - 29 mmol/L [facility] Anion Gap 13 12 - 20 [facility] Urea Nitrogen (BUN) 23(H) 9 - 16 mg/dL [facility] Creatinine, Serum 0.75 0.5 - 1.4 mg/dL [facility] Creatinine Clr Calc Pharmacy 76.1 [facility] Comment:Provided height and weight: 149.86 cm,72.575 kg.eGFR (calculated from the MDRD study equation) and eCrCl(calculated from the Cockcroft-Gault equation) are based ondifferent parameters and may not yield comparable results.If eCrCl result is absurd, please check patient'sheight/weight. Estimated Glomerular Filt Rate >60 [facility] Comment:Chronic Kidney Disea se: Estimated GFR < 60 mL/min/1.12g5Weqihz Kidney Disease: Estimated GFR < 15 mL/min/1.73m2 Glucose 102 60 - 115 mg/dL [facility] Calcium 9.5 8.4 - 10.2 mg/dL [facility] Bilirubin, Total 0.2 0.0 - 1.0 mg/dL [facility] Aspartate Amino Transferase 32(H) 5 - 31 U/L [facility] Comment:Slight Hemolysis.Int erpret result with caution. Alanine Aminotransferase 29 0 - 31 U/L [facility] Total Protein 7.7 6.5 - 8.0 g/dL [facility] Albumin Level 4.2 3.5 - 5.0 g/dL [facility] Alkaline Phosphatase 126(H) 39 - 117 U/L [facility] 11/01/2024 4:48 PM EST 11/01/2024 4:52 PM EST us Generic External Data Provider LAB BLOOD ORDERAB LES Final Result Performing Organization Address [facility] Co de Phone Number [facility] [address] [place] [phone] * Partial Thromboplastin Time, Activated (APTT) (11/01/2024 4:48 PM EST) Partial Thromboplastin Time 28.0 26.0 - 36.8 SEC [facility] Comment:For information rega rding the monitoring of direct thrombininhibitors, please refer to Pharmacy. 11/01/2024 4:48 PM EST 11/01/2024 4:52 PM EST Generic External Data Provider LAB BLOOD ORDERAB LES Final Result Performing Organization Address [facility] de Phone Number [facility] [address] [place] [phone] * Prothrombin Time-INR (11/01/2024 4:48 PM EST) Prothrombin Time 11.6 10.9 - 12.4 SEC [facility] INTERNATIONAL NORM RATIO 1.0 0.9 - 1.1 [facility] Comment:INTERNATIONAL NORMAL IZED RATIO (INR) REFERENCE [...] ORDERAB LES Final Result Performing Organization Address [facility] Co de Phone Number [facility] [address] [place] [phone] * (ABNORMAL) CBC auto differential (11/01/2024 4:48 PM EST) White Blood Count 6.2 4.8 - 10.8 X10*3/uL [facility] Red Blood Count 4.26 4.20 - 5.50 X10*6/uL [facility] Hemoglobin 12.1 12.0 - 16.0 g/dl [facility] Hematocrit 36.1(L) 37.0 - 47.0 % [facility] Mean Corpuscular Volume 84.7 80.0 - 98.0 fL [facility] Mean Corpuscular Hemoglobin 28.4 27.0 - 33.0 pg [facility] Mean Corpuscular HGB Conc 33.5 31.0 - 35.0 g/dl [facility] Red Cell Distribution Width 12.6 11.0 - 16.0 % [facility] Platelet Count 307 160 - 400 X10*3/uL [facility] Mean Platelet Volume 8.8(L) 9.4 - 12.3 fL [facility] Neutrophils Percent Auto 62.8 45 - 73 % [facility] Imm Gran Pct Auto 0.5(H) 0.0 - 0.4 % [facility] Lymphocytes Percent Auto 27.4 20 - 40 % [facility] Monocytes Percent Auto 6.9 2 - 11 % [facility] Eosinophils Percent Auto 1.8 0 - 4 % [facility] Basophils Percent Auto 0.6 0 - 2 % [facility] NRBC Pct Auto 0.0 0.0 - 0.2 /100WBC [facility] Neutrophils Absolute Auto 3.9 2.0 - 8.3 x10*3/uL [facility] Imm Gran Abs Auto 0.03 0.00 - 0.03 X10*3/uL [facility] Lymphocytes Absolute Auto 1.7 1.2 - 4.9 X10*3/uL [facility] Monocytes Absolute Auto 0.4 0.1 - 1.2 X10*3/uL [facility] Eosinophils Absolute Auto 0.1 0.0 - 0.4 X10*3/uL [facility] Basophils Absolute Auto 0.0 0.0 - 0.2 X10*3/uL [facility] NRBC Abs Auto 0.000 0.0 - 0.012 X10*3/uL [facility] 11/01/2024 4:48 PM EST 11/01/2024 4:52 PM EST us Generic External Data Provider LAB BLOOD ORDERAB LES Final Result [facility] [address] [place] [phone] * XR Chest 1 View (11/01/2024 3:49 PM EST) Anatomical Region Laterality Modality Chest Radiographic Sherrie ging 11/01/2024 3:49 PM EST Narrative 11/01/2024 4:41 PM EST ? [facility] ?[address] ?[place] [address] ?XRay Report ? Signed ? Patient: Renita Brandon ?MR#: [id number] ?? 4 ? : 1970 ?Acct:[id number] ? Age/Sex: 54 / F ?ADM Date: 11/01/24 ? Loc: HO.ED ? Attending Dr: ? Ordering Physician: Romero Carlos ?? Date of Service: 11/01/24 ?? Procedure(s): XR chest 1V ?? Accession Number(s): [id number] ? cc: Romero Carlos; Hilda Butt ? [...] DD/ 1549 ? TD/TT: 11/01/24 1600 ? Research And Development Director: BRANDO ? Procedure Note Donotdebbieter, Image - 11/01/[address] [address] XRay Report Signed Patient: Renita BrandonMR#: [id number] 4 : 1970Acct:[id number] Age/Sex: 54 / FADM Date: 11/01/24 Loc: HO.ED Attending Dr: Ordering Physician: Romero Carlos Date of Service: 11/01/24 Procedure(s): XR chest 1V Accession Number(s): [id number] cc: Romero Carlos; Hilda Butt EXAMINATION: XR [...] 11/01/24 1638 DD/ 1549 TD/TT: 11/01/24 1600 Research And Development Director: BRANDO [facility] External Provider IMG XR PROCEDURES Final Result documented in this encounter Visit Diagnoses Not on filedocumented in this encounter Additional Health Concerns Assessment Noted Time PHQ-9 Depression Total Score: 0 11/17/19 24 10:34 AM EST documented as of this encounter Care Teams Metal Mockup Maker Relationship Specialty Start Date End Date Hilda Butt MD [address] [place] [address] PCP - General Family Medicine 06/20/22 documented as of this encounter
--- OUTSIDE RECORDS SUMMARY | 2024-11-22 06:15 | XMS_ITS | Encounter Summary ---
Author Organization [employer] Address [address] [facility] [address] 7t [place] [address] Care Team Providers Care Production Operator Name Role Phone Hilda Butt MD Primary Care Provider [phone] Reason for Visit * Reason Onset Date Comments Med Refill 11/03/2024 Encounter Details Date Type Department Care Team ([facility] st Contact Info) Description 11/03/2024 Refill [facility] [address] [place], [place] [phone] Hilda Butt MD [address] [place], [place] [phone] Social History Tobacco Use Types Packs/Day Years [...] Description 12/31/2024 11:15 AM EST Office Visit [facility] [address] [place] [address] Hilda Butt MD [address] [place] [address] documented as of this encounter Goals Goal [...] documented as of this encounter Care Teams Production Operator Relationship Specialty Start Date End Date Hilda Butt MD [address] [place] [address] PCP - General Family Medicine 06/20/22 documented as of this encounter
--- OUTSIDE RECORDS SUMMARY | 2024-11-22 06:15 | XMS_ITS | Encounter Summary ---
Author Organization [employer] Address [address] [facility] [address] [place] [address] Care Team Providers Care Computer Forensics Investigator Name Role Phone Hilda Butt MD Primary Care Provider [phone] Reason for Visit * Reason Onset Date Comments Med Refill 04/22/2024 Encounter Details Date Type Department Care Team ([facility] st Contact Info) Description 04/22/2024 Refill [facility] [address] [place], [place] [phone] Hilda Butt MD [address] [place], [place] [phone] Neck pain Social History Tobacco Use Types Packs/Day Years [...] EST Office Visit [facility] [address] [place] [address] Hilda Butt MD [address] [place] [address] documented as of this encounter Goals Goal Patient Goal Type Associated Problems Recent Progress Patient-Stated? Author Blood Pressure < 140/90 Blood Pressure 142/86( 025 2:15 PM EST) No Daria Cardoso, Holly documented as of this encounter Visit Diagnoses Diagnosis Neck pain Cervicalgia documented in this encounter Additional Health Concerns Assessment Noted Time PHQ-9 Depression Total Score: 0 11/17/19 24 10:34 AM EST documented as of this encounter Care Teams Computer Forensics Investigator Relationship Specialty Start Date End Date Hilda Butt MD [address] [place] [phone] PCP - General Family Medicine 06/20/22 documented as of this encounter
--- OUTSIDE RECORDS SUMMARY | 2024-11-22 06:15 | XMS_ITS | Encounter Summary ---
Author Organization [employer] Address [address] [facility] 7t [place] [address] Care Team Providers Care Merchandise Coordinator Name Role Phone Hilda Butt MD Primary Care Provider [phone] Reason for Visit * Reason Onset Date Comments Med Refill 04/22/2024 Encounter Details Date Type Department Care Team ([facility] st Contact Info) Description 04/22/2024 Refill [facility] [address] [place], [place] [phone] Hilda Butt MD [address] [place], [place] [phone] Social History Tobacco Use Types Packs/Day Years [...] 11:15 AM EST Office Visit [facility] [address] [place] [address] [phone] Hilda Butt MD [address] [place] [address] documented as of this encounter Goals Goal [...] documented as of this encounter Care Teams Merchandise Coordinator Relationship Specialty Start Date End Date Hilda Butt MD [address] [place] [phone] PCP - General Family Medicine 06/20/22 documented as of this encounter
--- OUTSIDE RECORDS SUMMARY | 2024-11-22 06:15 | XMS_ITS | Encounter Summary ---
Author Organization [employer] Address [address] [facility] [address] [place] [address] Care Team Providers Care Picc Nurse Name Role Phone Hilda Butt MD Primary Care Provider [phone] Reason for Visit * Reason Onset Date Comments Med Refill 11/19/2024 Encounter Details Date Type Department Care Team ([facility] st Contact Info) Description 11/19/2024 Refill [facility] [address] [place], [place] [phone] Hilda Butt MD [address] [place] [address] Social History Tobacco Use Types Packs/Day Years [...] Description 12/31/2024 11:15 AM EST Office Visit [facility] [address] [place] [address] Hilda Butt MD [address] [place] [address] documented as of this encounter Goals Goal [...] documented as of this encounter Care Teams Picc Nurse Relationship Specialty Start Date End Date Hilda Butt MD [address] [place] [address] PCP - General Family Medicine 06/20/22 documented as of this encounter
--- OUTSIDE RECORDS SUMMARY | 2024-11-22 06:15 | XMS_ITS | Encounter Summary ---
Author Organization [employer] Address [address] [facility] [address] 7[address] [place] [address] Care Team Providers Care Justice [employer] Name Role Phone Hilda Butt MD Primary Care Provider [phone] Encounter Details Date Type Department Care Team (Latest Contact Info) Description 11/01/2024 Travel Social History Tobacco Use Types Packs/Day Years [...] Office Visit [facility] [address] [place] [address] Hilda Butt MD [address] [place] [address] documented as of this encounter Goals Goal [...] documented as of this encounter Care Teams Justice [employer] Relationship Specialty Start Date End Date Hilda Butt MD [address] [place] [phone] PCP - General Family Medicine 06/20/22 documented as of this encounter
--- OUTSIDE RECORDS SUMMARY | 2024-11-22 06:15 | XMS_ITS | Clinical Summary ---
Author Organization [facility] Address [address] [place] [address] Care Team Providers Care Natural Resources Technician Name Role Phone Hilda Butt MD Primary Care Provider + Char Juarez MD Unavailable [phone] Allergies No known active allergies Medications Medication Sig Dispensed Refills Start Date End Date Status lidocaine (LIDODERM) 5 % patch Place 1 patch on the skin daily. Apply patch and leave on for 12 hours then remove. Patch may remain on skin for 12 hours per day. Active fluticasone (FloNASE) 50 mcg/spray nasal spray 1 spray into each nostril daily. Active mirtazapine (REMERON) 7.5 MG tablet Take 1 tablet (7.5 mg total) by mouth nightly. Active calcium carbonate (OS-ESTEFANIA) 600 MG tablet Take 1 tablet (600 mg total) by mouth every morning with breakfast. Active ascorbic acid 250 MG tablet Take 1 tablet (250 mg total) by mouth daily. Active atorvastatin (LIPITOR) 80 MG tablet Take 1 tablet (80 mg total) by mouth daily. Active cetirizine (ZyrTEC) 10 MG chewable tablet Chew 1 tablet (10 mg total) daily. Active ferrous sulfate 325 (65 FE) MG tablet Take 1 tablet (325 mg total) by mouth daily. Take 2 hours before or 4 hours after acid reducers. Active fluticasone-salmeter ol (ADVAIR HFA) 115-21 MCG/ACT inhaler Inhale 2 puffs 2 (two) times a day. Active melatonin 3 MG Tab tablet Take 5 mg by mouth nightly. Active PANTOprazole (PROTONIX) 40 MG EC tablet Take 1 tablet (40 mg total) by mouth every morning before breakfast. Active furosemide (LASIX) 20 MG tablet Take 1 tablet (20 mg total) by mouth daily. Active gabapentin (NEURONTIN) 300 MG capsuleIndications:V ertebral artery dissection Take 1 capsule (300 mg total) by mouth 3 (three) times a day. 90 capsule 01/23/2023 Active metoCLOPRAMIDE (REGLAN) 5 MG/ML injectionIndications :Vertebral artery dissection Infuse 2 mL (10 mg total) into a venous catheter 4 times daily (every 6 hours) as needed for nausea or vomiting. 2 mL 01/23/2023 Active acetaminophen (TYLENOL) 325 MG tabletIndications:Ve rtebral artery dissection Take 2 tablets (650 mg total) by mouth 4 times daily (every 6 hours) as needed for mild pain, moderate pain or headaches. 01/23/2023 Active polyethylene glycol (miraLAx) 17 g packetIndications:Ve rtebral artery dissection Take 1 packet (17 g total) by mouth daily. 30 packet 01/23/2023 Active aspirin enteric coated 81 MG EC tabletIndications:Ve rtebral artery dissection Take 1 tablet (81 mg total) by mouth daily. 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 Never 01/16/2023 Q2: How many drinks containi ng alcohol do you have on a typical day when you are drinking? Patient does not drink Q3: How often do you have si x or more drinks on one occasion? Never 01/16/2023 Overall Financial Resource Strain (CARDIA) Answe r Date Recorded How hard is it for you to pa y for the very basics like food, housing, medical care, and heating? Not hard at all 01/17/2023 Hunger Vital Sign Answer Date Recorded Within the past 12 months, y ou worried that your food would run out before you got the money to buy more. Never true 01/18/20 23 Within the past 12 months, t he food you bought just didn't last and you didn't have money to get more. Never true 01/17/2023 PRAPARE - Transportation Answer Date Re corded In the past 12 months, has l ack of transportation kept you from medical appointments or from getting medications? No 12/26 In the past 12 months, has l ack of transportation kept you from meetings, work, or from getting things needed for daily living? No 01/17/2023 Housing Stability Vital Sign Answer Bear e Recorded In the last 12 months, was t here a time when you were not able to pay the mortgage or rent on time? No 01/17/2023 [address] of Places Lived in the Last Year Not on f ile 01/17/2023 In the last 12 months, was t here a time when you did not have a steady place to sleep or slept in a correction (including now)? No 01/17/2023 Sex and Gender Information Value Date Recorded Sex Assigned at Female 01/24/2023 9:44 AM EDT Gender Identity Female 01/24/2023 9:44 AM EDT Sexual Orientation Heterosexual (straight) 01/24 9:44 AM EDT Last Filed Vital Signs Vital Sign Reading Time Taken Comments Blood Pressure 108/76 02/19/2024 2:34 PM EDT Pulse 66 02/19/2024 2:34 PM EDT Temperature 36.9 ??C (98.4 ??F) 01/23/2023 12:00 PM E DT Respiratory Rate 18 02/19/2024 2:34 PM EDT Oxygen Saturation 97% 01/23/2023 12:00 PM EDT Inhaled Oxygen Concentration - - Weight 73.9 kg (163 lb) 02/19/2024 2:34 PM EDT Height 149.9 cm (4' 11 ) 03/04/2023 2:39 PM EDT Body Mass Index 32.92 03/04/2023 2:39 PM EDT Plan of Treatment Health Maintenance Due Date Last Done Comments Hepatitis C Virus Screening 1972 DTaP/Tdap/Td Vaccines (1 - Tdap) 1991 Hepatitis B Vaccines (1 of 3 - 19+ 3-dose series) 1991 Pap Smear (Ages 21-65) 1993 Mammogram 2012 Colonoscopy 2017 Pneumococcal Vaccines 50+ (1 of 1 - PCV) 2022 Zoster (Shingles) Vaccine (1 of 2) 2022 Influenza Vaccine 05/27/2024 07/17/2023, , 07/31/2021, Additional history exists COVID-19 Vaccine (2023- season) 2024 11/08/2022, 07/30/2022, 08/27/2021, Additional history exists HIV Screening Completed 05/09/2022 Chronic Controlled Substance User PDMP Review Discontinued 01/15/2023 Pneumococcal Vaccine: Pediatric (0-5 Years) and At-Risk Patients (6 to 49 Years) Aged Out No longer eligible based on patient's age to complete this topic Advance Directives * Full Code (Latest Code Status on File) Date Activated Date Inactivated Comments 01/16/2023 4:08 AM Question Answer Comments Decision Thoroughly Discussed with: Patient Care Teams Natural Resources Technician Relationship Specialty Start Date End Date Hilda Butt MD [address] [place], [place] [phone] PCP - General General Medicine 01/16/23 Char Juarez MD [address] [facility] [address] [place] [address] 01/16/23
--- OUTSIDE RECORDS SUMMARY | 2024-11-22 06:15 | XMS_ITS | Clinical Summary ---
Author Organization [employer] it Address [address] [place] [address] Care Team Providers Care Amusement Park Entertainer Name Role Phone Tara Paniagua RN Primary Care Provider [phone] Surgical History Surgery Date Site/Laterality Comments TUBAL LIGATION PROCEDURE: HISTORICAL TUBAL LIGATION BUNIONECTOMY PROCEDURE: PA CORRJ HLX VLGS BNCTY SESMDC W/DOUBLE OSTEOTOMY Medical History Medical History Date Comments Bipolar 1 disorder (CMS/HCC) DX: Bipolar 1 disorder (HCC) Historical Medical DX 12/07/2013 DX:Active smoker Family History Medical History Relation Name Comments Diabetes Mother Hypertension Mother Breast cancer Neg Hx Colon cancer Neg Hx Relation Name Status Comments Mother Social History Tobacco Use Types Packs/Day Years Used Date Smoking Tobacco: Every Day Cigarettes Smokeless Tobacco: Never Alcohol Use Standard Drinks/Week Comments Yes 0 (1 standard drink = 0.6 oz pur e alcohol) Sex and Gender Information Value Date Recorded Sex Assigned at Not on file Gender Identity Not on file Sexual Orientation Not on file Obstetrics History Plan of Treatment Health Maintenance Due Date Last Done Comments Breast Cancer Screening 1972 Pneumococcal Vaccine: Pediat rics (0 to 5 Years) and At-Risk Patients (6 to 64 Years) (1 of 2 - PCV) 1978 Hepatitis B Vaccines (1 of 3 - 19+ 3-dose series) 1991 Cervical Cancer Screening: P ap Smear 1993 Zoster Vaccines (1 of 2) 2022 Colorectal Cancer Screening: Colonoscopy 09/29/2022 Depression Screening 09/29/2022 HIV Screening 09/29/2022 Hepatitis C Screening 09/29/2022 Social Influencers of Health Screening 09/29/2022 DTaP,Tdap,and Td Vaccines (2 - Td or Tdap) 12/07/2023 12/07/2013 COVID-19 Vaccine (1 - 2023-2 5 season) 2024 Influenza Vaccine (#1) 2024 12/07/2013 HIB Vaccines Aged Out No longer eligi ble based on patient's age to complete this topic HPV Vaccines Aged Out No longer eligi ble based on patient's age to complete this topic Hepatitis A Vaccines Aged Out No long er eligible based on patient's age to complete this topic IPV Vaccines Aged Out No longer eligi ble based on patient's age to complete this topic MMR Vaccines Aged Out No longer eligi ble based on patient's age to complete this topic Meningococcal ACWY Vaccine Aged Out N o longer eligible based on patient's age to complete this topic RSV Immunization Patients Un rik 20 months Aged Out No longer eligible b ased on patient's age to complete this topic Varicella Vaccines Aged Out No longer eligible based on patient's age to complete this topic Advance Directives Documents on File Type Date Recorded Patient Leisure Travel Agent Expl anation Health Care Decision (hx) 02/06/2024 AD ORTIZ DIRECTIVE Health Care Decision (hx) 02/06/2024 AD ORTIZ DIRECTIVE Health Care Decision (hx) 02/06/2024 AD ORTIZ DIRECTIVE Health Care Decision (hx) 02/04/2023 AD ORTIZ DIRECTIVE Care Teams Amusement Park Entertainer Relationship Specialty Start Date End Date Tara Paniagua RN [address] [place] [phone] PCP - General 07/24/22
--- OUTSIDE RECORDS SUMMARY | 2024-11-22 06:15 | XMS_ITS | Encounter Summary ---
Author Organization [employer] Address [address] [place] [address] Care Team Providers Care Public Policy Coordinator Name Role Phone Hilda Butt MD Primary Care Provider [phone] Reason for Visit * Reason Onset Date Comments Med Refill 11/19/2024 Encounter Details Date Type Department Care Team ([facility] st Contact Info) Description 11/19/2024 Refill [facility] [address] [place], [place] [phone] Hilda Butt MD [address] [place], [place] [phone] Chronic obstructive pulmonary disease with acute exacerbation (CMS/HCC) Social History Tobacco Use Types Packs/Day Years [...] Description 12/31/2024 11:15 AM EST Office Visit [facility] [address] [place] [address] Hilda Butt MD [address] [place] [address] documented as of this encounter Goals Goal Patient Goal Type Associated Problems Recent Progress Patient-Stated? Author Blood Pressure < 140/90 Blood Pressure 142/86( 025 2:15 PM EST) No Daria Cardoso, PharmD documented as of this encounter Visit Diagnoses Diagnosis Chronic obstructive pulmonary disease with acute exacerbation (CMS/HCC) documented in this encounter Additional Health Concerns Assessment Noted Time PHQ-9 Depression Total Score: 0 11/17/19 24 10:34 AM EST documented as of this encounter Care Teams Public Policy Coordinator Relationship Specialty Start Date End Date Hilda Butt MD [address] [place] [phone] PCP - General Family Medicine 06/20/22 documented as of this encounter
--- OUTSIDE RECORDS SUMMARY | 2024-11-22 06:15 | XMS_ITS | Encounter Summary ---
Author Organization [facility] Address [address] [facility] 7t [place] [address] Care Team Providers Care Aesthetics Instructor Name Role Phone Hilda Butt MD Primary Care Provider [phone] Encounter Details Date Type Department Care Team (Late Contact Info) Description 10/31/2022 Orders Only [facility] [address] [place] [address] [phone] Hilda Butt MD [address] [place] [address] [phone] Blurry vision (Primary Dx) Social History Tobacco Use Types Packs/Day Years Used Date Smoking Tobacco: Never Assessed Comments Unknown Sex and Gender Information Value [...] suspected to have Coronavirus/COVID-19? No / Unsure 11/01/2022 8:47 AM EST documented as of this encounter Plan of Treatment Upcoming Encounters Date Type Department Care Team (Late st Contact Info) Description 12/31/2024 11:15 AM EST Office Visit [facility] [address] [place] [address] [phone] Hilda Butt MD [address] [place] [address] [phone] documented as of this encounter Visit Diagnoses Diagnosis Blurry vision- Primary Other specified visual disturbances documented in this encounter Care Teams Aesthetics Instructor Relationship Specialty Start Date End Date Hilda Butt MD [address] [place] [address] PCP - General Family Medicine 06/20/22 documented as of this encounter
--- OUTSIDE RECORDS SUMMARY | 2024-11-22 06:15 | XMS_ITS | Encounter Summary ---
Author Organization [employer] Address [address] [place] [address] Care Team Providers Care Wood Router Hand Name Role Phone Hilda Butt MD Primary Care Provider [phone] Reason for Visit * Reason Onset Date Comments Med Refill 05/10/2024 Encounter Details Date Type Department Care Team ([facility] st Contact Info) Description 05/10/2024 Refill [facility] [address] [place], [place] [phone] Hilda Butt MD [address] [place], [place] [phone] Social History Tobacco Use Types Packs/Day Years [...] 12/31/2024 11:15 AM EST Office Visit [facility] [address] [place] [address] [phone] Hilda Butt MD [address] [place] [address] documented as of this encounter Goals Goal [...] documented as of this encounter Care Teams Wood Router Hand Relationship Specialty Start Date End Date Hilda Butt MD [address] [place] [phone] PCP - General Family Medicine 06/20/22 documented as of this encounter
--- OUTSIDE RECORDS SUMMARY | 2024-11-22 06:15 | XMS_ITS | Encounter Summary ---
Author Organization [employer] Address [address] [facility] 7[address] [place] [address] Care Team Providers Care Kier Drier Name Role Phone Hilda Butt MD Primary Care Provider [phone] Reason for Visit * Reason Comments Med Refill Encounter Details Date Type Department Care Team (Late st Contact Info) Description 04/23/2023 Refill [facility] [address] [place] [address] [phone] Shamar Stevens FNP Bipolar II disorder (CMS/HCC) Social History Tobacco Use Types Packs/Day [...] Description 12/31/2024 11:15 AM EST Office Visit [facility] [address] [place] [address] [phone] Hilda Butt MD [address] [place] [address] [phone] documented as of this encounter Visit Diagnoses Diagnosis Bipolar II disorder (CMS/HCC) Other bipolar disorders documented in this encounter Additional Health Concerns Assessment Noted Time PHQ-9 Depression Total Score: 9 02/18/20 23 10:45 AM EDT documented as of this encounter Care Teams Kier Drier Relationship Specialty Start Date End Date Hilda Butt MD [address] [place] [address] PCP - General Family Medicine 06/20/22 documented as of this encounter
--- OUTSIDE RECORDS SUMMARY | 2024-11-22 06:15 | XMS_ITS | Encounter Summary ---
Author Organization [employer] Address [address] [place] [address] Care Team Providers Care Allied Health Professional Name Role Phone Hilda Butt MD Primary Care Provider [phone] Reason for Visit * Reason Comments Med Refill Encounter Details Date Type Department Care Team ([facility] st Contact Info) Description 11/16/2024 Refill [facility] [address] [place], [place] [phone] Hilda Butt MD [address] [place], [place] [phone] Vitamin D deficiency Social History Tobacco Use Types Packs/Day Years [...] Description 12/31/2024 11:15 AM EST Office Visit [facility] [address] [place] [address] Hilda Butt MD [address] [place] [address] documented as of this encounter Goals Goal Patient Goal Type Associated Problems Recent Progress Patient-Stated? Author Blood Pressure < 140/90 Blood Pressure 142/86( 025 2:15 PM EST) No Daria Cardoso, [place] documented as of this encounter Visit Diagnoses Diagnosis Vitamin D deficiency documented in this encounter Additional Health Concerns Assessment Noted Time PHQ-9 Depression Total Score: 0 11/17/19 24 10:34 AM EST documented as of this encounter Care Teams Allied Health Professional Relationship Specialty Start Date End Date Hilda Butt MD [address] [place] [address] PCP - General Family Medicine 06/20/22 documented as of this encounter
--- OUTSIDE RECORDS SUMMARY | 2024-11-22 06:15 | XMS_ITS | Encounter Summary ---
Author Organization [employer] Address [address] [place] [address] Care Team Providers Care Custom Designer Name Role Phone Hilda Butt MD Primary Care Provider [phone] Encounter Details Date Type Department Care Team ([facility] st Contact Info) Description 11/05/2024 Orders Only 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 [address] [place], [place] [phone] Hilda Butt MD [address] [place], [place] [phone] Social History Tobacco Use Types Packs/Day Years [...] Description 12/31/2024 11:15 AM EST Office Visit 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 [address] [place] [phone] Hilda Butt MD [address] [place] [address] documented as of this encounter Goals Goal Patient Goal Type Associated Problems Recent Progress Patient-Stated? Author Blood Pressure < 140/90 Blood Pressure 142/86( 025 2:15 PM EST) No Daria Cardoso, PharmVenecia documented as of this encounter Visit Diagnoses Not on filedocumented in this encounter Additional Health Concerns Assessment Noted Time PHQ-9 Depression Total Score: 0 11/17/19 24 10:34 AM EST documented as of this encounter Care Teams Custom Designer Relationship Specialty Start Date End Date Hilda Butt MD [address] [place] [phone] PCP - General Family Medicine 06/20/22 documented as of this encounter
--- OUTSIDE RECORDS SUMMARY | 2024-11-22 06:15 | XMS_ITS | Encounter Summary ---
Author Organization [employer] Address [address] [facility] 7t [place] [address] Care Team Providers Care Medical Records Receptionist Name Role Phone Hilda Butt MD Primary Care Provider [phone] Encounter Details Date Type Department Care Team (Late st Contact Info) Description 10/15/2022 Orders Only [facility] [address] [place], [place] [phone] Apple Stringer LPN Social History Tobacco Use Types Packs/Day Years [...] Description 12/31/2024 11:15 AM EST Office Visit [facility] [address] [place] [address] Hilda Butt MD [address] [place] [address] documented as of this encounter Visit Diagnoses Not on filedocumented in this encounter Care Teams Medical Records Receptionist Relationship Specialty Start Date End Date Hilda Butt MD [address] [place] [address] PCP - General Family Medicine 06/20/22 documented as of this encounter
--- OUTSIDE RECORDS SUMMARY | 2024-11-22 06:15 | XMS_ITS | Data Portability ---
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 I have reviewed and agree with the Assessment and Plan as documented by the Reconciling Clerk. Patient given the opportunity to ask questions. as per above, patient with very mild symptoms of upper respiratory tract infection with congestion and a dry cough. She took a COVID test which was positive at home but it was . She called our service to confirm that test as she is around her elderly mother. Our test is positive as well. Given her mild symptoms we did discuss whether not to take Paxlovid. She declines as she does not want to experience any rebound COVID given how mild her symptoms are now. Advised to keep hydrated and quarantine. We discussed the diagnostic uncertainty of home visits and the risk associated with this. In this case, the patient and I felt this to be an acceptable and reasonable amount of risk given the benefit of avoiding an ED visit. We discussed the need to seek care urgently/emergen tly in the setting of any new or worsening serious symptoms, particularly fever chills [email or web address] Not available 10/26/2023 17:51:17 12/12/2023 12/12/2023 I provided real -time medical direction via phone for this encounter, and was available for additional phone based assistance as needed. I have reviewed and agree with the Assessment and Plan as documented by the Reconciling Clerk. Patient given the opportunity to ask questions. As per above, patient with acute on chronic exacerbation of low back pain. Some new symptoms but continues to be able to urinate, pass gas and move her bowels. She is looking for Toradol injection to bridge her pain management. Unfortunately, she has taken quite a bit of nonsteroidals today. She is under utilizing Tylenol and we discussed increase usage of Tylenol as a bridge. Patient to be counseled to use less nonsteroidals so that we can safely administer Toradol. In addition she does not have any red flag signs or symptoms that warrant immediate imaging however low threshold for her to present to the emergency department for pain control. Patient voiced understanding of above. We discussed the diagnostic uncertainty of home visits and the risk associated with this. In this case, the patient and I felt this to be an acceptable and reasonable amount of risk given the benefit of avoiding an ED visit. We discussed the need to seek care urgently/emergen tly in the setting of any new or worsening serious symptoms [email or web address] Not available 12/12/2023 21:18:10 Plan of Treatment Reminders Order Date Submit Date Provider Last Modified By Organization Details Last Modified Time Details Appointments None recorded. Lab rapid SARS CoV 2 Ag, QL IA, respiratory specimen [facility], [address] [place] [address], [id number], 3 17:51:19 Referral None recorded. Procedures None recorded. Surgeries None recorded. Imaging electrocard iogram 2023 024 [facility], [address] [place] [address], [phone], 4 17:16:38 Medication Orders prednisone 20 mg tablet 2023 024 aci Not available 4 14:59:40 prednisone 20 mg tablet 2023 024 [email or web address] Not available 4 14:59:40 doxycycline hyclate 100 mg tablet 2023 024 [facility], [address] [place] [address], [id number], 4 14:00:23 doxycycline hyclate 100 mg tablet 2023 024 [facility], [address] [place] [address], [id number], 14:59:40 Patient TargetsNo targets recorded. Patient InstructionsNo instructions recorded. Reason for Referral None Reported. Results Created Date Observation Date Name Description Value Unit Range Abnormal Flag Note LastModifiedBy Organization Detail LastModifiedTime 10/26/20 23 10/26/2023 rapid SARS CoV 2 Ag, QL IA, respi rator y speci men rapid SARS CoV 2 Ag, QL IA, respiratory specimen positi ve Not Available Main - Inst ed [address] [place] [address], [phone], 10/26/2023 17:48:34 11/02/19 24 11/02/2023 elect jet jenkins am No observ ation record ed. [address] [facility] [address] [place] [address], [phone], 11/02/2023 17:37:03 Result Notes None recorded. Procedures Surgical History None recorded. Imaging Results Imaging Date Name Status LastModified by Organization Details LastModified Time 11/02/2023 electrocardiogram completed [address] [facility] [address] [place] [address], [phone], 11/02/2023 17:37:03 Procedure Notes None recorded. Medical Equipment None Reported. Medications Name Sig Start Date Stop Date Status Note LastModified by Organization Details LastModified Time medbox status USE DIRECTED active Not Available Not Available No t Available losartan 50 mg tablet TAKE 1 TABLET BY MOUTH EVERY MORNING active Not Available Not Available No t Available amoxicillin 500 mg capsule TAKE 1 CAPSULE BY MOUTH EVERY 12 HOURS active Not Available Not Available No t Available atorvastatin 80 mg tablet TAKE 1 TABLET BY MOUTH EVERY MORNING active Not Available Not Available No t Available prednisone 10 mg tablet TAKE 4 TABLETS BY MOUTH ONCE DAILY FOR 3 DAYS, 3 TABLETS ONCE DAILY FOR 3 DAYS, 2 TABLETS ONCE DAILY FOR 3 DAYS, 1 TABLET ONCE DAILY FOR 3 DAYS active Not Available Not Available N ot Available ipratropium 0.5 mg-albuterol 3 mg (2.5 mg base)/3 mL nebulization soln USE 3 ML VIA NEBULIZER EVERY 6 HOURS NEEDED FOR WHEEZING active Not Available Not Available No t Available cetirizine 10 mg tablet TAKE 1 TABLET BY MOUTH EVERY DAY active Not Available Not Available No t Available azithromycin 250 mg tablet TAKE 2 TABLETS BY MOUTH TODAY, THEN TAKE 1 TABLET DAILY FOR 4 DAYS active Not Available Not Available No t Available fluconazole 150 mg tablet TAKE 1 TABLET BY MOUTH ONCE THEN REPEAT IN 72 HOURS (3 DAYS) active Not Available Not Available No t Available benzonatate 200 mg capsule TAKE 1 CAPSULE BY MOUTH THREE TIMES DAILY NEEDED FOR COUGH active Not Available Not Available No t Available prednisone 20 mg tablet TAKE 3 TABLETS BY MOUTH ONCE DAILY FOR ONE DAY, THEN TAKE 2 TABLETS ONCE DAILY FOR 3 DAYS, THEN TAKE 1 TABLET DAILY FOR 3 DAYS active Not Available Not Available No t Available meclizine 12.5 mg tablet TAKE 1 TABLET BY MOUTH EVERY 8 HOURS active Not Available Not Available No t Available aspirin 81 mg tablet,delaye d release TAKE 1 TABLET BY MOUTH EVERY MORNING active Not Available Not Available No t Available tramadol 50 mg tablet TAKE 1/2 TABLET BY MOUTH EVERY 6 TO 8 HOURS NEEDED FOR PAIN active Not Available Not Available No t Available triamcinolone acetonide 0.1 % topical cream APPLY TO THE AFFECTED AREA(S) SPARINGLY TWICE DAILY DIRECTED active Not Available Not Available No t Available acetaminophen ER 650 mg tablet,extend ed release TAKE 1 TABLET BY MOUTH EVERY 8 HOURS NEEDED FOR MILD PAIN active Not Available Not Available No t Available oxycodone-xavier taminophen 5 mg-325 mg tablet TAKE 1 TABLET BY MOUTH EVERY 4 HOURS NEEDED FOR PAIN active Not Available Not Available No t Available famotidine 20 mg tablet TAKE 1 TABLET BY MOUTH EVERY MORNING FOR 7 DAYS active Not Available Not Available N ot Available ascorbic acid (vitamin C) 250 mg tablet TAKE 1 TABLET BY MOUTH EVERY MORNING WITH IRON active Not Available Not Available No t Available pantoprazole 40 mg tablet,delaye d release TAKE 1 TABLET BY MOUTH TWICE DAILY IN THE MORNING AND AT BEDTIME active Not Available Not Available No t Available lidocaine 5 % topical patch APPLY 1 PATCH TOPICALLY TO SKIN, LEAVE ON FOR 12 HOURS AND OFF FOR 12 HOURS DIRECTED active Not Available Not Available No t Available petrolatum topical ointment APPLY TO THE AFFECTED AREA(S) TOPICALLY NEEDED FOR DRY SKIN active Not Available Not Available No t Available gabapentin 300 mg capsule TAKE 1 CAPSULE BY MOUTH THREE TIMES DAILY active Not Available Not Available No t Available aspirin 81 mg chewable tablet TAKE 1 TABLET BY MOUTH EVERY MORNING (MASTIQUE) active Not Available Not Available N ot Available furosemide 20 mg tablet TAKE 1 TABLET BY MOUTH TWICE DAILY IN THE MORNING AND IN THE EVENING active Not Available Not Available No t Available gabapentin 100 mg capsule TAKE 1 CAPSULE BY MOUTH THREE TIMES DAILY IN THE MORNING, EVENING, AND BEDTIME active Not Available Not Available No t Available metoprolol succinate ER 25 mg tablet,extend ed release 24 hr TAKE 1 TABLET BY MOUTH EVERY MORNING active Not Available Not Available No t Available ibuprofen 600 mg tablet TAKE 1 TABLET BY MOUTH EVERY 8 HOURS NEEDED FOR MILD PAIN OR FOR MODERATE PAIN active Not Available Not Available No t Available scopolamine 1 mg over [address] PATCH BEHIND EAR EVERY 72 HOURS active Not Available Not Available No t Available fluticasone propionate 50 mcg/actuation nasal spray,suspens ion INHALE 2 SPRAYS IN EACH NOSTRIL TWICE DAILY active Not Available Not Available No t Available clotrimazole 1 % topical cream APPLY TO THE AFFECTED AREA(S) TOPICALLY TWICE DAILY active Not Available Not Available No t Available doxycycline hyclate 100 mg tablet TAKE 1 TABLET BY MOUTH TWICE DAILY UNTIL FINISHED active Not Available Not Available No t Available amoxicillin 875 mg-potassium clavulanate 125 mg tablet TAKE 1 TABLET BY MOUTH TWICE DAILY FOR 7 DAYS active Not Available Not Available No t Available mirtazapine 7.5 mg tablet TAKE 1 TABLET BY MOUTH AT BEDTIME active Not Available Not Available No t Available Advair HFA 115 mcg-21 mcg/actuation aerosol inhaler INHALE 2 PUFFS BY MOUTH TWICE DAILY IN THE MORNING AND IN THE EVENING RINSE MOUTH AFTER USING. active Not Available Not Available No t Available calcium 600 mg (as carbonate)-vi tamin D3 10 mcg (400 unit) tablet TAKE 1 TABLET BY MOUTH TWICE DAILY IN THE MORNING AND IN THE EVENING active Not Available Not Available No t Available budesonide-fo rmoterol HFA 160 mcg-4.5 mcg/actuation aerosol inhaler INHALE 2 PUFFS BY MOUTH TWICE DAILY IN THE MORNING AND IN THE EVENING RINSE MOUTH AFTER USING. active Not Available Not Available No t Available FeroSul 325 mg (65 mg iron) tablet TAKE 1 TABLET BY MOUTH EVERY OTHER DAY IN THE MORNING active Not Available Not Available No t Available melatonin 5 mg tablet TAKE 1 TABLET BY MOUTH AT BEDTIME (1 HOUR BEFORE BEDTIME) active Not Available Not Available No t Available Vitamin D3 50 mcg (2,000 unit) capsule TAKE 1 CAPSULE BY MOUTH EVERY MORNING active Not Available Not Available No t Available omega 0-tdb-dhc-fis h oil 60 mg-90 mg-500 mg capsule TAKE 1 CAPSULE BY MOUTH EVERY MORNING active Not Available Not Available No t Available Eliquis 5 mg tablet TAKE 1 TABLET BY MOUTH TWICE DAILY IN THE MORNING AND IN THE EVENING active Not Available Not Available No t Available white petrolatum 42 % topical ointment APPLY TOPICALLY TO AFFECTED AREA(S) NEEDED DAILY FOR DRY SKIN active Not Available Not Available No t Available Anoro Ellipta 62.5 mcg-25 mcg/actuation powder for inhalation INHALE 1 PUFF BY MOUTH EVERY DAY AT THE SAME TIME active Not Available Not Available No t Available Incruse Ellipta 62.5 mcg/actuation powder for inhalation INHALE 1 PUFF EVERY DAY AT THE SAME TIME active Not Available Not Available No t Available [place]-Dryl 25 mg tablet TAKE 1 TABLET BY MOUTH EVERY 8 HOURS NEEDED FOR ITCHING active Not Available Not Available No t Available Bevespi Aerosphere 9 mcg-4.8 mcg HFA aerosol inhaler INHALE 2 PUFFS TWICE DAILY active Not Available Not Available No t Available Compact Space Chamber USE DIRECTED active Not Available Not Available No t Available BinaxNOW COVID-19 Ag Self Test kit TEST DIRECTED TODAY active Not Available Not Available No t Available Vitals Date Recorded Respiratory rate Body height Oxygen saturation Oxygen saturation in Arterial blood by Pulse oximetry Heart rate Body weight Body temperature Systolic blood pressure Diastolic blood pressure Provider Name and Address Organization Details Last Updated DateTime 3 16 /min 149.86 cm 98 % 98 % 90 /min 22355.7 2 g 98.6 [degF] 155 mm[Hg] 80 mm[Hg] Not Available [employer] 3 17:48:09 Date Recorded Body weight Respiratory rate Heart rate Body height Oxygen saturation Oxygen saturation in Arterial blood by Pulse oximetry Body temperature Systolic blood pressure Diastolic blood pressure Provider Name and Address Organization Details Last Updated DateTime 4 53757.7 2 g 16 /min 107 /min 149.86 cm 99 % 99 % 99.3 [degF] 127 mm[Hg] 75 mm[Hg] Not Available [employer] 4 14:43:50 Date Recorded Oxygen saturation Oxygen saturation in Arterial blood by Pulse oximetry Respiratory rate Body height Body temperature Heart rate Body weight Systolic blood pressure Diastolic blood pressure Provider Name and Address Organization Details Last Updated DateTime 4 96 % 96 % 18 /min 149.86 cm 99.7 [degF] 95 /min 74906.7 2 g 149 mm[Hg] 85 mm[Hg] Not Available [employer] 4 21:15:31 Date Recorded Respiratory rate Oxygen saturation Oxygen saturation in Arterial blood by Pulse oximetry Body weight Heart rate Body temperature Body temperature Systolic blood pressure Diastolic blood pressure Systolic blood pressure Diastolic blood pressure Provider Name and Address Organization Details Last Updated DateTime 4 16 /min 97 % 97 % 15114.7 2 g 88 /min 100.6 [degF] 99.3 [degF] 110 mm[Hg] 70 mm[Hg] 94 mm[Hg] 70 mm[Hg] Not Available [employer] 4 17:31:32 Social History None recorded. Functional Status None recorded. Mental Status None recorded. Family History Nothing Reported. Medical History No medical history recorded. Gynecological HistoryNo gynecological history recorded. Obstetrics History GPAL:G 0 P 0 0 0 0 Past Encounters Encounter ID Performer Location Encounter Start Date Encounter Closed Date Diagnosis/Indication Diagnosis SNOMED-CT Code Diagnosis ICD10 Code Diagnosis Note [id number] Chnadrika Harvey MD Main - [address] [phone] 10/26/2023 17:48:07 10/28/2023 12:39:36 Respiratory tract congestion and cough 041486259 R05.9 [id number] [facility] [address] [place] [phone] 11/02/2023 14:43:48 11/03/2023 12:13:44 Acute exacerbation of chronic obstructive pulmonary disease 470087348 J44.1 Evaluation in the field was performed by my hotel sales manager colleague, as noted above, I provided real-time direction and supervisio n for this visit. The evaluation revealed 53 yo female with hx of COPD not on chronic home O2 supplement or chronic prednisone , CAD s/p PMM for LBBB , per patient, HF on Lasix, Metoprolol and Losartan who was diagnosed with Covid on 10/26. Was not treated with paxlovid. Covid home test on 11/01 negative. Continues to have cough, some dyspnea and chest tightness . Used her albuterol neb prior to the visit.Spo2 99% on RA. T 99.3ECG paced but no Scarbossa criteria present suggestive of acute ischemia but no prior ECG for comparison in the chart , q wave on the inferior lead Impression :COPD exacerbati on Plan:Predn isone 40 mg PO x5 days ( first dose given now )Doxycycli ne 100 mg PO BID x7 days ( first dose given )Advised to contact PCP if no improvemen t in the next few days Primary care, consider__ _ Dispositio n: We discussed the diagnostic uncertaint y of home visits and the risk associated with this. In this case, the patient and I felt this to be an acceptable and reasonable amount of risk given the benefit of avoiding an ED visit. We discussed the need to seek care urgently/e mergently in the setting of any new or worsening serious symptoms, particular ly worsening of chest tightness, CP, worsening of SOB or any other concerns. Chandrika Harvey MD Main - [facility] [address] [place] [phone] 12/12/2023 21:15:30 12/13/2023 12:40:12 Chronic low back pain [id number] M54.50 [id number] Jorge Luis Gates MD Main - [facility] [address] [place] [id number] 07/02/2024 17:31:28 07/05/2024 22:19:44 Hypotensive episode [id number] I95.9 As noted, we were called to see this patient regarding concerns of hypotensio n. Evaluation in the field was performed by my hotel sales manager colleague, as noted above, I provided real-time direction and supervisio n for this visit. She had gone to urgent care earlier in the day for symptoms of COPD and was given Augmentin. She had an episode of low blood pressure for which we were dispatched . On the hotel sales manager examinatio n, she had a normal physical examinatio n and was asymptomat ic. Repeat blood pressure was normal. Impression :Episode of low blood pressure Plan:Close monitoring at home Dispositio n: We discussed the diagnostic uncertaint y of home visits and the risk associated with this. In this case, the patient and I felt this to be an acceptable and reasonable amount of risk given the benefit of avoiding an ED visit. We discussed the need to seek care urgently/e mergently in the setting of any new or worsening serious symptoms, particular ly lightheade dness, dizziness, or any new symptom. Health Concerns Section Related Observation LastModified by Organization Detai ls LastModified Time None Recorded Concern Status LastModified by Organization Details LastModified Time None Recorded Advance Directives Directive None Recorded Payers Encounter Date Sequence Insurance Name Policy Number Policy [employer] Covered Member ID Stanford Member ID Guarantor Name 10/26/2023 1 [facility] AFTER 2023 - DUAL ELIGIBLE - DETENTION OPTIONS AND ONE CARE (MEDICARE REPLACEMENT/ADV ANTAGE - HMO) Renita Haddad [id number] Renita Haddad 11/02/2023 1 [facility] - DOS ON OR AFTER 2023 - DUAL ELIGIBLE - DETENTION OPTIONS AND ONE CARE (MEDICARE REPLACEMENT/ADV ANTAGE - HMO) Renita Haddad [id number] Renita Haddad 12/12/2023 1 [facility] DOS ON OR AFTER 2023 - DUAL ELIGIBLE - DETENTION OPTIONS AND ONE CARE (MEDICARE REPLACEMENT/ADV ANTAGE - HMO) Renita Haddad [id number] Renita aHddad 07/02/2024 1 [facility] - DOS ON OR AFTER 2023 - DUAL ELIGIBLE - DETENTION OPTIONS AND ONE CARE (MEDICARE REPLACEMENT/ADV ANTAGE - HMO) Renita Haddad [id number] Renita Haddad Notes Date Note Type Note Provider Name and Address Organization Details Recorded Time 10/26/2023 text/html [facility] Nurse Triage Notes (Demian Hernandez): Chief Complaints: URI Allergies: Unknown Comments: Member reports feeling unwell x1 day - Congestion with body aches - Denies cough/fever - Home COVID test was positive - Hedy SYLVESTER ................... ................... ................... ................... ................... ................... ................... ........ Reconciling Clerk Note From Sunil Schaefer: Pt reports runny nose and dry cough since this morning. Pt sts she took an home covid test which was positive. Pt not concerned over sx, but wants to confirm she is actually covid positive because she is often around her elderly mother. Pt denies CP, SOB, FERNANDEZ, MCCURDY, f/n/v/d. Pt is alert, NAD. VSS. Afebrile. Non focal neuro exam. Normal gait. Lungs CTA. Benign ABD exam. No LE edema. Rapid covid positive and flu negative. Pt educated on quarantining and supportive care measures. Pt presented with paxlovid information and she declines. Pt instructed to seek emergent medical care for new or worsening sx, which are reviewed with her. ................... ................... ................... ................... ................... ................... ................... ........ Disposition: Fulfilled Chandrika Harvey MD [address] [place] [address],[address], [place], [phone], [employer] 10/26/2023 17:51:42 11/02/2023 text/html [facility] Nurse Triage Notes (Demian Hernandez): Reason For Request: Pt states last friday mbr tested for COVID-19 10/26/24. Mbr states retesting yesterday at home with NEGATIVE result but was still experiencing tiredness + fatigue Took albuterol treatment today and still experiencing cough, wheezing, weakness, and chest as if someone is sitting on it>elevated heart rate. Chief Complaints: Cough, Weakness/Lethargy, URI Allergies: Unknown Comments: Multi Operation Machine Operator verified the pt.? s address and phone number - Education provided on the response time and was advised to monitor reported s/s and seek emergency treatment if needed. Pt states last Friday - Member tested for COVID-19 10/26/24. Mbr states retesting yesterday at home with NEGATIVE result but was still experiencing tiredness + fatigue Took albuterol treatment today and still experiencing cough, wheezing, weakness, and chest as if someone is sitting on it>elevated heart rate. Breathing is non labored and the member is speaking full sentences. Hedy SYLVESTER ................... ................... ................... ................... ................... ................... ................... ........ Reconciling Clerk Note From Sunil Schaefer: Pt tested positive for covid last Friday and is still experiencing sx despite retesting negative. Sx include dry cough, chest tightness, weakness and mild SOB. Pt is alert, NAD. VSS. Afebrile. Non focal neuro exam. Normal gait. Lungs CTA. Benign ABD exam. No LE edema. Rapid covid and flu negative. ECG uploaded. [facility] contacted and pt treated with doxycycline 100 mg and prednisone 40 mg. Pt instructed to seek emergent medical care for new or worsening sx, which are reviewed with her. ................... ................... ................... ................... ................... ................... ................... ........ Disposition: Patt AMATO MD [address] [facility],[address], [place], [phone], [facility] - [employer] [facility] 11/02/2023 17:21:37 12/12/2023 text/html HPI: PMH: Left bundle branch block, Vertebral artery dissection. Call to Renita Brandon, reports having body aches x 1 weeks. Per pt no JOSE GUADALUPE sx, fever or urinary sx. Per pt pain is from the waist down. Pt has been using Motrin PRN for pain. Pt states has difficulty with walking. Pt advised of disposition, [facility] office and [facility] on Friday. ................... ................... ................... ................... ................... ................... ................... ........ [facility] Nurse Triage Notes (Anum Stone): Comments: HPI reviewed. No further information needed to process visit. ................... ................... ................... ................... ................... ................... ................... ........ Reconciling Clerk Note From Katt Alexis: Sent to a call for a pt complaining of body pain and difficulty walking. [facility] arrives on scene, pt is alert and oriented, airway is patent. 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 Pt complains of back pain stemming from lumbar spine, radiating bilaterally to both buttocks, through legs and feet. Pt also complains of bilateral leg numbness x 1 week. Pt complains of intermittent lightheadedness, general weakness, and nausea x 2 days. Pt denies headache, sinus pain, cough, cp, sob, vomiting, diarrhea, abd pain, dysuria, hematuria, urinary urgency, fever, or loc. Pt states she has been taking Tylenol 1gm qd and Ibuprofen 600mg bid x 1 week. Ibuprofen was last approx 3hrs prior to visit. (sitting) BP:149/85, P:95, RR:18, SpO2:96% RA, T:99.7; (standing) BP:152/90, P:96; Head: unremarkable; Lung sounds: clear bilaterally; Abdomen: soft, non-tender, no distention; Back: no tenderness or deformities noted; Extremities: (+)CMSx4; Skin: pink, warm, dry; Rapid covid test: neg; Rapid flu test: neg; Pt requesting pain relief. Pt states she does not want to go to ED because she caught Covid in ED at the beginning of last month. C consulted and pt is advised to increase Tylenol. Pt advised we are unable to give Toradol injection tonight due to recent Nsaid use, but pt advised to follow up with [facility] for another visit for re-evaluation/possi ble Toradol injection. Pt advised to call 911 if condition persists/worsens. Red flags discussed. Pt has no further questions. ................... ................... ................... ................... ................... ................... ................... ........ Disposition: Patt Chandrika Harvey MD [address] [facility],[address], [place], [address], [facility] 12/12/2023 21:18:21 07/02/2024 text/html CRC Nurse Triage Notes (Gabi Young): Reason For Request: Patient has Blood pressure problems. Chief Complaints: Hypotension PMH: Hypertension, COPD/Asthma Other Allergies: lisinopril Comments: Member calling in to place a referral, identified via name and . PMHx- DM, COPD. ALLERGIES- lisinopril. Member who went to the clinic today for a follow up for her COPD, and her blood pressure was initially elevated, then low. Clinic recommended ED, however, member felt fine and went home. Per member her BP is 86/66, on recheck it is 96/68. Member does take antihypertensive, had taken them this morning. Member feels hot , but denies chest pain, sob, no headache or dizziness, no n/v. RED flags discussed, member verbalized understanding when she needs to activate EMS. Member would like to be evaluated prior to going to the ED, if needed. ................... ................... ................... ................... ................... ................... ................... ........ Reconciling Clerk Note From Rojas Fisher: Pt co hypertension asymptomatic, pt sts [facility] came earlier and evaluated BP pt was 96/68 ..pt was seen by urgent care earlier today. Pt sts she feels ok and has no symptoms. Her pcpc put her on augmentin today. Pt denies fever sob cough , NVD, cp, dizziness. Baseline vitals assessed, WNL, lungs clear afebrile. [facility] contacted and advised pt to monitor symptoms and drink plenty of fluids. Pt advised not to take water pill however took anyway. Pt education on signs indicating the ER. Pt advised to follow up with pcp. ................... ................... ................... ................... ................... ................... ................... ........ Disposition: Fulfilled Jorge Luis Gates MD [address] [facility],[address], [place], [address], [employer] 07/02/2024 21:57:09 OBGyn Episode No OBEpisode recorded.
--- OUTSIDE RECORDS SUMMARY | 2024-11-22 06:15 | XMS_ITS | Encounter Summary ---
Author Organization [employer] Address [address] [facility] [address] [place] [address] Care Team Providers Care Carpentry Instructor Name Role Phone Hilda Butt MD Primary Care Provider Reason for Visit * Reason Onset Date Comments Med Refill 08/20/2024 Encounter Details Date Type Department Care Team ([facility] st Contact Info) Description 08/20/2024 Refill [facility] MED & PEDS [address] [place], [place] [phone] Hilda Butt MD 230 [place] [address] Social History Tobacco Use Types Packs/Day Years [...] Description 12/31/2024 11:15 AM EST Office Visit [facility] MEDICINE 230 [place] [address] Hilda Butt MD 230 [place] [address] documented as of this encounter Goals Goal [...] documented as of this encounter Care Teams Carpentry Instructor Relationship Specialty Start Date End Date Hilda Butt MD [address] [place] [address] PCP - General Family Medicine 06/20/22 documented as of this encounter
--- OUTSIDE RECORDS SUMMARY | 2024-11-22 06:15 | XMS_ITS | Encounter Summary ---
Author Organization [employer] Address [address] [facility] [address] [place] [address] Care Team Providers Care Air Compressor Operator Name Role Phone Hilda Butt MD Primary Care Provider [phone] Reason for Visit * Reason Onset Date Comments Med Refill 12/04/2023 Encounter Details Date Type Department Care Team ([facility] st Contact Info) Description 12/04/2023 Refill [facility] MEDICINE 230 [place], [place] [phone] Hilda Butt MD 230 [place], [place] [phone] Itchy skin of anus and genitals Social History Tobacco Use Types Packs/Day Years [...] Description 12/31/2024 11:15 AM EST Office Visit [facility] MEDICINE [address] [place] [address] Hilda Butt MD [address] [place] [address] documented as of this encounter Visit Diagnoses Diagnosis Itchy skin of anus and genitals Pruritus ani documented in this encounter Additional Health Concerns Assessment Noted Time PHQ-9 Depression Total Score: 0 11/17/19 24 10:34 AM EST documented as of this encounter Care Teams Air Compressor Operator Relationship Specialty Start Date End Date Hilda Butt MD [address] [place] [address] [phone] PCP - General Family Medicine 06/20/22 documented as of this encounter
--- OUTSIDE RECORDS SUMMARY | 2024-11-22 06:15 | XMS_ITS | Encounter Summary ---
Author Organization [employer] Address [address] [facility] 7t [place] [address] Care Team Providers Care Fire Protection Inspector Name Role Phone Hilda Butt MD Primary Care Provider [phone] Reason for Visit * Reason Onset Date Comments ER Follow-up 01/02/2023 Appointment 01/02/2023 Re: her appt for today as [id number] @ 3:15pm. Encounter Details Date Type Department Care Team ([facility] st Contact Info) Description 01/02/2023 Telephone [facility] MEDICINE 230 [place], [place] [phone] Hilda Butt MD 230 [place] [address] ER Follow-up; Appointment (Re: her appt for today as [id number] @ 3:15pm.) Social History Tobacco Use Types Packs/Day Years [...] suspected to have Coronavirus/COVID-19? No / Unsure 02/23/2023 8:45 PM EDT documented as of this encounter Miscellaneous Notes * Telephone Encounter - Kady Trejo - 01/02/2023 10:45 AM EST Patient calling to report ED visit on 01/01/23 at [facility]. Reports to be seen for earache , pt is requesting a referral for a ENT. Patient advised will forward to team nurse for follow up. Please contact at [phone] documented in this encounter Plan of Treatment Upcoming Encounters Date Type Department Care Team (Late st Contact Info) Description 12/31/2024 11:15 AM EST Office Visit [facility] MEDICINE 230 [place] [address] Hilda Butt MD 230 [place] [address] documented as of this encounter Goals Goal Patient Goal Type Associated Problems Recent Progress Patient-Stated? Author Blood Pressure < 140/90 Blood Pressure 142/86( 025 2:15 PM EST) Daria Duncan, PharmD documented as of this encounter Visit Diagnoses Not on filedocumented in this encounter Care Teams Fire Protection Inspector Relationship Specialty Start Date End Date Hilda Butt MD 230 [place] [address] PCP - General Family Medicine 06/20/22 documented as of this encounter
--- OUTSIDE RECORDS SUMMARY | 2024-11-22 06:15 | XMS_ITS | Encounter Summary ---
Author Organization [employer] Address [address] [facility] [address] 7[address] [place] [address] Care Team Providers Care Harness Maker Name Role Phone Hilda Butt MD Primary Care Provider [phone] Reason for Visit * Reason Onset Date Comments Med Refill 12/03/2023 Encounter Details Date Type Department Care Team ([facility] st Contact Info) Description 12/03/2023 Refill [facility] 230 [place], [place] [phone] Hilda Butt MD 230 [place], [place] [phone] Social History Tobacco Use Types Packs/Day Years [...] AM EST Office Visit [facility] [address] [place] [address] Hilda Butt MD [address] [place] [address] documented as of this encounter Visit Diagnoses Not on filedocumented in this encounter Additional Health Concerns Assessment Noted Time PHQ-9 Depression Total Score: 0 11/17/19 24 10:34 AM EST documented as of this encounter Care Teams Harness Maker Relationship Specialty Start Date End Date Hilda Butt MD [address] [place] [address] PCP - General Family Medicine 06/20/22 documented as of this encounter
--- OUTSIDE RECORDS SUMMARY | 2024-11-22 06:15 | XMS_ITS | Encounter Summary ---
Author Organization [employer] Address [address] [facility] [address] 7[address] [place] [address] Care Team Providers Care Garment Supervisor Name Role Phone Hilda Butt MD Primary Care Provider [phone] Encounter Details Date Type Department Care Team (Latest Contact Info) Description 10/31/2024 Travel Social History Tobacco Use Types Packs/Day [...] Description 12/31/2024 11:15 AM EST Office Visit [facility] MEDICINE 230 [place] [address] Hilda Butt MD 230 [place] [address] documented as of this encounter Goals Goal [...] documented as of this encounter Care Teams Garment Supervisor Relationship Specialty Start Date End Date Hilda Butt MD [address] [place] [address] PCP - General Family Medicine 06/20/22 documented as of this encounter
--- OUTSIDE RECORDS SUMMARY | 2024-11-22 06:15 | XMS_ITS | Encounter Summary ---
Author Organization [employer] Address [address] [facility] [address] 7t [place] [address] Care Team Providers Care Cell Pourer Name Role Phone Hilda Butt MD Primary Care Provider [phone] Encounter Details Date Type Department Care Team ([facility] Contact Info) Description 09/21/2024 Orders Only [facility] MEDICINE 230 [place], [place] [phone] Hilda Butt MD 230 [place], [place] [phone] Social History Tobacco Use Types Packs/Day Years [...] Description 12/31/2024 11:15 AM EST Office Visit [facility] MEDICINE [address] [place] [address] Hilda Butt MD 230 [place] [address] documented as of this encounter Goals Goal [...] documented as of this encounter Care Teams Cell Pourer Relationship Specialty Start Date End Date Hilda Butt MD [address] [place] [address] PCP - General Family Medicine 06/20/22 documented as of this encounter
--- OUTSIDE RECORDS SUMMARY | 2024-11-22 06:15 | XMS_ITS | Encounter Summary ---
Author Organization [employer] Address [address] [facility] [address] 7[address] [place] [address] Care Team Providers Care Cylinder Worker Name Role Phone Hilda Butt MD Primary Care Provider [phone] Reason for Visit * Reason Onset Date Comments Med Refill 02/25/2024 Encounter Details Date Type Department Care Team ([facility] st Contact Info) Description 02/25/2024 Refill [facility] MEDICINE 230 [place], [place] [phone] Hilda Butt MD 230 [place], [place] [phone] Itchy skin of anus and genitals; Recurrent [...] 12/31/2024 11:15 AM EST Office Visit [facility] 230 [place] [address] Hilda Butt MD 230 [place] [address] documented as of this encounter Goals Goal [...] documented as of this encounter Care Teams Cylinder Worker Relationship Specialty Start Date End Date Hilda Butt MD 230 [place] [address] PCP - General Family Medicine 06/20/22 documented as of this encounter
--- OUTSIDE RECORDS SUMMARY | 2024-11-22 06:15 | XMS_ITS | Encounter Summary ---
Author Organization [employer] Address [address] [facility] 7t [place] [address] Care Team Providers Care Applications Sales Consultant Name Role Phone Hilda Butt MD Primary Care Provider [phone] Reason for Visit * Reason Onset Date Comments Med Refill 02/25/2024 Encounter Details Date Type Department Care Team ([facility] st Contact Info) Description 02/25/2024 Refill [facility] MEDICINE 230 [place], [place] [phone] Hilda Butt MD 230 [place], [place] [phone] Dizziness Social History Tobacco Use Types Packs/Day [...] 12/31/2024 11:15 AM EST Office Visit [facility] MEDICINE 230 [place], [place] [phone] Hilda Butt MD 230 [place] [address] documented as of this encounter Goals Goal Patient Goal Type Associated Problems Recent Progress Patient-Stated? Author Blood Pressure < 140/90 Blood Pressure 142/86( 025 2:15 PM EST) No Daria Cardoso, PamD documented as of this encounter Visit Diagnoses Diagnosis Dizziness Dizziness and giddiness documented in this encounter Additional Health Concerns Assessment Noted Time PHQ-9 Depression Total Score: 0 11/17/19 24 10:34 AM EST documented as of this encounter Care Teams Applications Sales Consultant Relationship Specialty Start Date End Date Hilda Butt MD [address] [place] [address] [phone] PCP - General Family Medicine 06/20/22 documented as of this encounter
--- OUTSIDE RECORDS SUMMARY | 2024-11-22 06:15 | XMS_ITS | Encounter Summary ---
Author Organization [employer] Address [address] [facility] [address] [place] [address] Care Team Providers Care Electronics System Mechanic Name Role Phone Hilda Butt MD Primary Care Provider [phone] Reason for Visit * Reason Onset Date Comments Med Refill 05/25/2024 Encounter Details Date Type Department Care Team ([facility] st Contact Info) Description 05/25/2024 Refill [facility] CHC MED & PEDS [address] [place], [place] [phone] Hilda Butt MD 230 [place] [address] Social History Tobacco Use Types Packs/Day Years [...] Description 12/31/2024 11:15 AM EST Office Visit [facility] MEDICINE 230 [place] [address] Hilda Butt MD 230 [place] [address] documented as of this encounter Goals Goal [...] documented as of this encounter Care Teams Electronics System Mechanic Relationship Specialty Start Date End Date Hilda Butt MD [address] [place] [address] PCP - General Family Medicine 06/20/22 documented as of this encounter
--- OUTSIDE RECORDS SUMMARY | 2024-11-22 06:15 | XMS_ITS | Encounter Summary ---
Author Organization [employer] Address [address] [facility] [address] 7t [place] [address] Care Team Providers Care Pattern Marker Name Role Phone Hilda Butt MD Primary Care Provider [phone] Reason for Visit * Reason Onset Date Comments Med Refill 08/10/2024 Encounter Details Date Type Department Care Team ([facility] st Contact Info) Description 08/10/2024 Refill [facility] CH[facility] MED & PEDS [address] [place], [place] [phone] Hilda Butt MD 230 [place] [address] Social History Tobacco Use Types Packs/Day Years [...] Description 12/31/2024 11:15 AM EST Office Visit [facility] MEDICINE 230 [place] [address] Hilda Butt MD [address] [place] [address] documented as of this encounter Goals Goal [...] documented as of this encounter Care Teams Pattern Marker Relationship Specialty Start Date End Date Hilda Butt MD [address] [place] [address] PCP - General Family Medicine 06/20/22 documented as of this encounter
--- OUTSIDE RECORDS SUMMARY | 2024-11-22 06:15 | XMS_ITS | Encounter Summary ---
Author Organization [employer] Address [address] [facility] [address] [place] [address] Care Team Providers Care Measuring Machine Tender Name Role Phone Hilda uBtt MD Primary Care Provider [phone] Reason for Visit * Reason Onset Date Comments Med Refill 11/18/2024 Encounter Details Date Type Department Care Team ([facility] st Contact Info) Description 11/18/2024 Refill [facility] CHC MED & PEDS [address] [place], [place] [phone] Hilda Butt MD 230 [place] [address] Social History Tobacco Use Types Packs/Day Years [...] Description 12/31/2024 11:15 AM EST Office Visit [facility] MEDICINE 230 [place] [address] Hilda Butt MD 230 [place] [address] documented as of this encounter Goals Goal [...] documented as of this encounter Care Teams Measuring Machine Tender Relationship Specialty Start Date End Date Hilda Butt MD 230 [place] [address] PCP - General Family Medicine 06/20/22 documented as of this encounter
--- OUTSIDE RECORDS SUMMARY | 2024-11-22 06:16 | XMS_ITS | Encounter Summary ---
Author Organization [employer] Address [address] [facility] [address]t [place] [address] Care Team Providers Care Motor Electrician Name Role Phone Hilda Butt MD Primary Care Provider [phone] Encounter Details Date Type Department Care Team ([facility] st Contact Info) Description 08/19/2023 Abstract [facility] MEDICINE 230 [place], [place] [phone] Hilda Butt MD 230 [place], [place] [phone] Social History Tobacco Use Types Packs/Day Years Used Date Smoking Tobacco: Former Cigarettes Smokeless Tobacco: Never Alcohol Use Standard Drinks/Week Comments Never 0 (1 standard drink = 0.6 oz pur e alcohol) Depression Answer Date Recorded Patient Health Questionnaire-9 Score 6 06/12/2023 Housing Stability Answer Date Recorded What is [...] from getting things needed for daily living? Yes, it has kept me from medical appointments or getting medications. 08/02/2023 Utilities Answer Date Recorded In the past 12 months, has t he electric, gas, oil or water company threatened to shut off services in your home? No 08/13/2023 Depression Answer Date Recorded Patient Health Questionnaire-2 Score 2 06/12/2023 Comments Unknown Sex and Gender Information Value [...] 12/31/2024 11:15 AM EST Office Visit [facility] MEDICINE 230 [place] [address] Hilda Butt MD 230 [place] [address] documented as of this encounter Visit Diagnoses Not on filedocumented in this encounter Additional Health Concerns Assessment Noted Time PHQ-9 Depression Total Score: 6 06/12/20 23 9:18 AM EDT documented as of this encounter Care Teams Motor Electrician Relationship Specialty Start Date End Date Hilda Butt MD 230 [place] [address] PCP - General Family Medicine 06/20/22 documented as of this encounter
--- OUTSIDE RECORDS SUMMARY | 2024-11-22 06:16 | XMS_ITS | Encounter Summary ---
Author Organization [employer] Address [address] [facility] [address] [place] [address] Care Team Providers Care Mold Capper Helper Name Role Phone Hilda Butt MD Primary Care Provider Reason for Visit * Reason Comments Med Refill Encounter Details Date Type Department Care Team ([facility] st Contact Info) Description 06/29/2024 Refill [facility] MEDICINE 230 [place], [place] [phone] Hilda Butt MD 230 [place], [place] [phone] Lower extremity edema Social History Tobacco Use Types Packs/Day Years [...] 12/31/2024 11:15 AM EST Office Visit [facility] MEDICINE [address] [place] [address] Hilda Butt MD [address] [place] [address] documented as of this encounter Goals Goal Patient Goal Type Associated Problems Recent Progress Patient-Stated? Author Blood Pressure < 140/90 Blood Pressure 142/86( 025 2:15 PM EST) No Daria Cardoso, Holly documented as of this encounter Visit Diagnoses Diagnosis Lower extremity edema Edema documented in this encounter Additional Health Concerns Assessment Noted Time PHQ-9 Depression Total Score: 0 11/17/19 24 10:34 AM EST documented as of this encounter Care Teams Mold Capper Helper Relationship Specialty Start Date End Date Hilda Butt MD [address] [place] [phone] PCP - General Family Medicine 06/20/22 documented as of this encounter
--- OUTSIDE RECORDS SUMMARY | 2024-11-22 06:16 | XMS_ITS | Encounter Summary ---
Author Organization [employer] Address [address] [facility] [address] [place] [address] Care Team Providers Care Debeaker Name Role Phone Hilda Butt MD Primary Care Provider [phone] Encounter Details Date Type Department Care Team ([facility] st Contact Info) Description 08/19/2023 Abstract [facility] MEDICINE 230 [place], [place] [phone] Hilda Butt MD 230 [place], [place] [phone] Social History Tobacco Use Types Packs/Day Years [...] Description 12/31/2024 11:15 AM EST Office Visit [facility] MEDICINE 230 [place] [address] Hilda Butt MD 230 [place] [address] documented as of this encounter Visit Diagnoses Not on filedocumented in this encounter Additional Health Concerns Assessment Noted Time PHQ-9 Depression Total Score: 6 06/12/20 23 9:18 AM EDT documented as of this encounter Care Teams Debeaker Relationship Specialty Start Date End Date Hilda Butt MD 230 [place] [address] PCP - General Family Medicine 06/20/22 documented as of this encounter
--- OUTSIDE RECORDS SUMMARY | 2024-11-22 06:16 | XMS_ITS | Encounter Summary ---
Author Organization [employer] Address [address] [facility] [address]t [place] [address] Care Team Providers Care Academic Associate Name Role Phone Hilda Butt MD Primary Care Provider [phone] Encounter Details Date Type Department Care Team ([facility] st Contact Info) Description 08/19/2023 Abstract [facility] MEDICINE 230 [place], [place] [phone] Hilda Butt MD 230 [place], [place] [phone] Social History Tobacco Use Types Packs/Day Years [...] 11:15 AM EST Office Visit [facility] MEDICINE 230 [place] [address] Hilda Butt MD 230 [place] [address] documented as of this encounter Visit Diagnoses Not on filedocumented in this encounter Additional Health Concerns Assessment Noted Time PHQ-9 Depression Total Score: 6 06/12/20 23 9:18 AM EDT documented as of this encounter Care Teams Academic Associate Relationship Specialty Start Date End Date Hilda Butt MD 230 [place] [address] PCP - General Family Medicine 06/20/22 documented as of this encounter
--- OUTSIDE RECORDS SUMMARY | 2024-11-22 06:16 | XMS_ITS | Encounter Summary ---
Author Organization [employer] Address [address] [facility] 7t [place] [address] Care Team Providers Care Accounts Executive Name Role Phone Hilda Butt MD Primary Care Provider [phone] Reason for Visit * Reason Onset Date Comments Med Life Line 08/06/2023 Encounter Details Date Type Department Care Team ([facility] Contact Info) Description 08/06/2023 Telephone 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 [address] [place], [place] [phone] Hilda Butt MD 230 [place], [place] [phone] Med Life Line Social History Tobacco Use Types Packs/Day Years Used Date Smoking Tobacco: Former Cigarettes Smokeless Tobacco: Never Alcohol Use Standard Drinks/Week Comments Never 0 (1 standard drink = 0.6 oz pur e alcohol) Depression Answer Date Recorded Patient Health Questionnaire-9 Score 6 06/12/2023 Housing Stability Answer Date Recorded What is your housing situation today? I have jadon samson 08/02/[address] you li ve. Do you have problems with any of the following? None of the above 08/02/2023 Food Insecurity Answer Date Recorded Within the past 12 months, y ou worried that your food would run out before you got money to buy more: Never True 08/02/2023 Within the past 12 months,th e food you bought just didn't last and you didn't have enough money to get more: Never True 04/2023 Transportation Answer Date Recorded In the past [...] shut off services in your home? No 08/02/2023 Depression Answer Date Recorded Patient Health Questionnaire-2 Score 2 06/12/2023 Comments Unknown Sex and Gender Information Value Date Recorded Sex Assigned at Female 08/26/2022 10:14 AM EDT Legal Sex Female 10:14 AM EDT Gender Identity Female 08/26/2022 10:14 AM EDT Sexual Orientation Straight 08/26/2022 10 :14 AM EDT documented as of this encounter Miscellaneous Notes * Telephone Encounter - Neda Graffanda - 08/11/2023 10:50 AM EDT TALKED TO PATIENT TODAY WILL SEND RX TO [facility]. [facility] NOT ACCEPT [facility]. * Telephone Encounter - Ashley Sutton - 08/06/2023 1:10 PM EDT Tc from pt requesting status on paperwork for Med Life line machine due to her medical conditions. Task on 07/31/2023 Please contact pt at [phone] North [place] Speaker documented in this encounter Plan of Treatment Upcoming Encounters Date Type Department Care Team (Late st Contact Info) Description 12/31/2024 11:15 AM EST Office Visit 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 MED[facility]INE [address] [place] [address] Hilda Butt MD 230 [place] [address] documented as of this encounter Visit Diagnoses Not on filedocumented in this encounter Additional Health Concerns Assessment Noted Time PHQ-9 Depression Total Score: 6 06/12/20 23 9:18 AM EDT documented as of this encounter Care Teams Accounts Executive Relationship Specialty Start Date End Date Hilda Butt MD 230 [place] [address] PCP - General Family Medicine 06/20/22 documented as of this encounter
--- OUTSIDE RECORDS SUMMARY | 2024-11-22 06:16 | XMS_ITS | Encounter Summary ---
Author Organization [employer] Address [address] 7t [place] [address] Care Team Providers Care Energy Trading Analyst Name Role Phone Hilda Butt MD Primary Care Provider [phone] Reason for Visit * Reason Onset Date Comments Med Refill 10/16/2023 Encounter Details Date Type Department Care Team ([facility] Contact Info) Description 10/16/2023 Refill [facility] [address] [place], [place] [phone] Hilda Butt MD 230 [place] [address] Social History Tobacco Use Types Packs/Day Years [...] Description 12/31/2024 11:15 AM EST Office Visit [facility] MEDICINE [address] [place] [address] Hilda Butt MD 230 [place] [address] documented as of this encounter Visit Diagnoses Not on filedocumented in this encounter Additional Health Concerns Assessment Noted Time PHQ-9 Depression Total Score: 6 06/12/20 23 9:18 AM EDT documented as of this encounter Care Teams Energy Trading Analyst Relationship Specialty Start Date End Date Hilda Butt MD 230 [place] [address] PCP - General Family Medicine 06/20/22 documented as of this encounter
--- OUTSIDE RECORDS SUMMARY | 2024-11-22 06:16 | XMS_ITS | Encounter Summary ---
Author Organization [employer] Address [address] 7t [place] [address] Care Team Providers Care Sales Service Executive Name Role Phone Hilda Butt MD Primary Care Provider [phone] Encounter Details Date Type Department Care Team ([facility] st Contact Info) Description 08/18/2023 Abstract [facility] [address] [place], [place] [phone] Hilda Butt MD [address] [place], [place] [phone] Social History Tobacco Use Types Packs/Day Years [...] Description 12/31/2024 11:15 AM EST Office Visit [facility] [address] [place] [address] Hilda Butt MD [address] [place] [address] documented as of this encounter Visit Diagnoses Not on filedocumented in this encounter Additional Health Concerns Assessment Noted Time PHQ-9 Depression Total Score: 6 06/12/20 23 9:18 AM EDT documented as of this encounter Care Teams Sales Service Executive Relationship Specialty Start Date End Date Hilda Butt MD [address] [place] [address] PCP - General Family Medicine 06/20/22 documented as of this encounter
--- OUTSIDE RECORDS SUMMARY | 2024-11-22 06:16 | XMS_ITS | Encounter Summary ---
Author Organization [employer] Address [address] 7t [place] [address] Care Team Providers Care Nanotechnologist Name Role Phone Hilda Butt MD Primary Care Provider [phone] Reason for Visit * Reason Onset Date Comments Med Refill 10/16/2023 Encounter Details Date Type Department Care Team ([facility] Contact Info) Description 10/16/2023 Refill [facility] [address] [place], [place] [phone] Anum Fox FNP Recurrent acute serous otitis media of right [...] t he electric, gas, oil or water [employer] threatened to shut off services in your [...] Description 12/31/2024 11:15 AM EST Office Visit [facility] [address] [place] [address] Hilda Butt MD 230 [place] [address] documented as of this encounter Visit Diagnoses Diagnosis Recurrent acute serous otitis media of right ear documented in this encounter Additional Health Concerns Assessment Noted Time PHQ-9 Depression Total Score: 6 06/12/20 23 9:18 AM EDT documented as of this encounter Care Teams Nanotechnologist Relationship Specialty Start Date End Date Hilda Butt MD [address] [place] [address] PCP - General Family Medicine 06/20/22 documented as of this encounter
--- OUTSIDE RECORDS SUMMARY | 2024-11-22 06:16 | XMS_ITS | Encounter Summary ---
Author Organization [employer] Address [address] 7t [place] [address] Care Team Providers Care Statistical Geneticist Name Role Phone Hilda Butt MD Primary Care Provider [phone] Encounter Details Date Type Department Care Team ([facility] st Contact Info) Description 07/02/2024 Orders Only [facility] MEDICINE 230 [place], [place] [phone] Hilda Butt MD 230 [place], [place] [phone] Subacute cough (Primary Dx) Social History Tobacco Use Types [...] EST Office Visit [facility] [address] [place] [phone] Hilda Butt MD [address] [place] [address] documented as of this encounter Goals Goal Patient Goal Type Associated Problems Recent Progress Patient-Stated? Author Blood Pressure < 140/90 Blood Pressure 142/86( 025 2:15 PM EST) No Daria Cardoso, Holly documented as of this encounter Visit Diagnoses Diagnosis Subacute cough- Primary documented in this encounter Additional Health Concerns Assessment Noted Time PHQ-9 Depression Total Score: 0 11/17/19 24 10:34 AM EST documented as of this encounter Care Teams Statistical Geneticist Relationship Specialty Start Date End Date Hilda Butt MD [address] [place] [phone] PCP - General Family Medicine 06/20/22 documented as of this encounter
--- OUTSIDE RECORDS SUMMARY | 2024-11-22 06:16 | XMS_ITS | Encounter Summary ---
Author Organization [employer] Address [address] [facility] 7t [place] [address] Care Team Providers Care School Cafeteria Head Cook Name Role Phone Hilda Arshad MD Primary Care Provider [phone] Reason for Visit * Reason Onset Date Comments medical supplies 08/08/2023 Encounter Details Date Type Department Care Team ([facility] Contact Info) Description 08/08/2023 Telephone [facility] MEDICINE 230 [place], [place] [phone] Hilda Arshad MD 230 [place], [place] [phone] medical supplies Social History Tobacco Use Types Packs/Day Years [...] Miscellaneous Notes * Telephone Encounter - Neda Jimenes - 08/14/2023 12:13 PM EDT CALLED PATIENT CLARIFIED QUESTIONS ABOUT SUPPLIES, NEW DME CREATED WITH INFO OBTAINED FROM PATIENT WILL LEAVE SCRIPT ON DR ARSHAD OFFICE FOR SIGNATURE. * Telephone Encounter - Adelaida Gastelum - 08/13/2023 11:47 AM EDT Tc from pt requesting a call back on regards DME below. * Telephone Encounter - Neda Jimenes - 08/11/2023 10:46 AM EDT TC PATIENT CLARIFIED MEDICAL SUPPLIES, DME CREATED FOR [employer] . AND [facility] WILL BE SENT TO [facility] AT [facility] BECAUSE [facility] DOES NOT ACCEPT [facility]. * Telephone Encounter - Adelaida Gastelum - 08/08/2023 3:00 PM EDT Tc from pt requesting status on medical supplies. documented in this encounter Plan of Treatment Upcoming Encounters Date Type Department Care Team (Late st Contact Info) Description 12/31/2024 11:15 AM EST Office Visit [facility] MEDICINE [address] [place] [phone] Hilda Arshad MD 230 [place] [address] documented as of this encounter Visit Diagnoses Not on filedocumented in this encounter Additional Health Concerns Assessment Noted Time PHQ-9 Depression Total Score: 6 06/12/20 23 9:18 AM EDT documented as of this encounter Care Teams School Cafeteria Head Cook Relationship Specialty Start Date End Date Hilda Arshad MD 230 [place] [address] PCP - General Family Medicine 06/20/22 documented as of this encounter
--- OUTSIDE RECORDS SUMMARY | 2024-11-22 06:16 | XMS_ITS | Encounter Summary ---
Author Organization [employer] Address [address] [facility] 7t [place] [address] Care Team Providers Care Chaperon Name Role Phone Hilda Butt MD Primary Care Provider [phone] Reason for Visit * Reason Onset Date Comments [place] 12/25/2022 Encounter Details Date Type Department Care Team ([facility] Contact Info) Description 12/25/2022 Telephone [facility] MEDICINE 230 [place], [place] [phone] Hilda Butt MD 230 [place], [place] [phone] [place] Social History Tobacco Use Types Packs/Day Years [...] suspected to have Coronavirus/COVID-19? No / Unsure 12/20/2022 9:33 AM EST documented as of this encounter Miscellaneous Notes * Telephone Encounter - Salena Erwin - 12/30/2022 3:31 PM EST I already submitted the PA with other DX and was cancelled and advised to follow the appeal process. I scanned that letter today for your review. * Telephone Encounter - Ashley Sutton - 12/30/2022 2:28 PM EST Tc from pt requesting status on message below. * Telephone Encounter - Ashley Sutton - 12/25/2022 3:04 PM EST Tc from pt requesting lidocaine patches for lower back pain. Pt claims that the two times patches were submitted they were denied for the fact that we are putting them as shoulder and is not shoulderpain it is Lower back pain. Please contact pt at [phone] documented in this encounter Plan of Treatment Upcoming Encounters Date Type Department Care Team (Late st Contact Info) Description 12/31/2024 11:15 AM EST Office Visit [facility] MEDICINE 230 [place] [address] Hilda Butt MD 230 [place] [address] documented as of this encounter Visit Diagnoses Not on filedocumented in this encounter Care Teams Chaperon Relationship Specialty Start Date End Date Hilda Butt MD [address] [place] [address] PCP - General Family Medicine 06/20/22 documented as of this encounter
--- OUTSIDE RECORDS SUMMARY | 2024-11-22 06:16 | XMS_ITS | Encounter Summary ---
Author Organization [employer] Address [address] 7t [place] [address] Care Team Providers Care Shift Supervisor Melting Name Role Phone Hilda Butt MD Primary Care Provider [phone] Reason for Visit * Reason Onset Date Comments Hospital Follow-up 06/29/2024 Encounter Details Date Type Department Care Team ([facility] Contact Info) Description 06/29/2024 Telephone [facility] MEDICINE 230 [place], [place] [phone] Hilda Butt MD 230 [place], [place] [phone] Hospital Follow-up Social History Tobacco Use Types Packs/Day Years [...] * Telephone Encounter - Kady Trejo - 06/29/2024 9:42 AM EDT Tc from pt returning call for HDF. documented in this encounter Plan of Treatment Upcoming Encounters Date Type Department Care Team (Late st Contact Info) Description 12/31/2024 11:15 AM EST Office Visit [facility] MEDICINE [address] [place] [address] Hilda Butt MD 230 [place] [address] documented as of this encounter Goals Goal [...] documented as of this encounter Care Teams Shift Supervisor Melting Relationship Specialty Start Date End Date Hilda Butt MD 230 [place] [address] PCP - General Family Medicine 06/20/22 documented as of this encounter
--- OUTSIDE RECORDS SUMMARY | 2024-11-22 06:16 | XMS_ITS | Encounter Summary ---
Author Organization [employer] Address [address] [facility] [address] 7t [place] [address] Care Team Providers Care Fire Investigator Name Role Phone Hilda Butt MD Primary Care Provider [phone] Encounter Details Date Type Department Care Team ([facility] Contact Info) Description 10/30/2023 Telephone [facility] MEDICINE 230 [place], [place] [phone] Janine Mccarthy, RN 230 [place], [place] [phone] Social History Tobacco Use Types Packs/Day Years [...] t he electric, gas, oil or water [employer] threatened to shut off services in your [...] Description 12/31/2024 11:15 AM EST Office Visit [facility] MEDICINE 230 [place] [address] Hilda Butt MD [address] [place] [address] documented as of this encounter Visit Diagnoses Not on filedocumented in this encounter Additional Health Concerns Assessment Noted Time PHQ-9 Depression Total Score: 6 06/12/20 23 9:18 AM EDT documented as of this encounter Care Teams Fire Investigator Relationship Specialty Start Date End Date Hilda Butt MD [address] [place] [phone] PCP - General Family Medicine 06/20/22 documented as of this encounter
--- OUTSIDE RECORDS SUMMARY | 2024-11-22 06:16 | XMS_ITS | Encounter Summary ---
Author Organization [employer] Address [address] [facility] 7t [place] [address] Care Team Providers Care Food Service Specialist Name Role Phone Hilda Butt MD Primary Care Provider [phone] Reason for Visit * Reason Onset Date Comments Med Refill 06/24/2024 Encounter Details Date Type Department Care Team ([facility] st Contact Info) Description 06/24/2024 Refill [facility] MEDICINE 230 [place], [place] [phone] Hilda Butt MD 230 [place], [place] [phone] Social History Tobacco Use Types Packs/Day Years [...] Visit [facility] MEDICINE [address] [place] [phone] Hilda Butt MD 230 [place] [address] documented as of this encounter Goals Goal [...] documented as of this encounter Care Teams Food Service Specialist Relationship Specialty Start Date End Date Hilda Butt MD [address] [place] [address] PCP - General Family Medicine 06/20/22 documented as of this encounter
--- OUTSIDE RECORDS SUMMARY | 2024-11-22 06:16 | XMS_ITS | Encounter Summary ---
Author Organization [employer] Address [address] [facility] [address] 7t [place] [address] Care Team Providers Care Medical Sales Representative Name Role Phone Hilda Butt MD Primary Care Provider [phone] Reason for Visit * Reason Comments Med Refill Encounter Details Date Type Department Care Team ([facility] st Contact Info) Description 2024 Refill [facility] MEDICINE 230 [place], [place] [phone] Hilda Butt MD 230 [place], [place] [phone] Social History Tobacco Use Types Packs/Day Years [...] Description 12/31/2024 11:15 AM EST Office Visit [facility] MEDICINE [address] [place] [address] Hilda Butt MD [address] [place] [address] documented as of this encounter Goals Goal [...] documented as of this encounter Care Teams Medical Sales Representative Relationship Specialty Start Date End Date Hilda Butt MD [address] [place] [address] PCP - General Family Medicine 06/20/22 documented as of this encounter
--- OUTSIDE RECORDS SUMMARY | 2024-11-22 06:16 | XMS_ITS | Encounter Summary ---
Author Organization [employer] Address [address] 7[address] [place] [address] Care Team Providers Care Daily Release And Dupe Printer Name Role Phone Hilda Butt MD Primary Care Provider [phone] Reason for Visit * Reason Comments Med Refill Encounter Details Date Type Department Care Team ([facility] st Contact Info) Description 06/30/2024 Refill [facility] MEDICINE 230 [place], [place] [phone] Hilda Butt MD 230 [place], [place] [phone] Lower extremity edema Social History Tobacco Use [...] Description 12/31/2024 11:15 AM EST Office Visit [facility] MEDICINE [address] [place] [address] Hilda Butt MD [address] [place] [address] documented as of this encounter Goals Goal [...] documented as of this encounter Care Teams Daily Release And Dupe Printer Relationship Specialty Start Date End Date Hilda Butt MD [address] [place] [address] PCP - General Family Medicine 06/20/22 documented as of this encounter
--- OUTSIDE RECORDS SUMMARY | 2024-11-22 06:16 | XMS_ITS | Encounter Summary ---
Author Organization [employer] Address [address] [facility] [address] [address] 7t [place] [address] Care Team Providers Care Cardiovascular Invasive Specialist Name Role Phone Hilda Butt MD Primary Care Provider [phone] Reason for Visit * Reason Comments Med Refill Encounter Details Date Type Department Care Team ([facility] st Contact Info) Description 07/28/2024 Refill [facility] MEDICINE 230 [place], [place] [phone] Hilda Butt MD 230 [place], [place] [phone] Social History Tobacco Use Types Packs/Day Years [...] 11:15 AM EST Office Visit [facility] MEDICINE [address] [place] [address] Hilda Butt MD [address] [place] [address] documented as of this encounter Goals Goal [...] documented as of this encounter Care Teams Cardiovascular Invasive Specialist Relationship Specialty Start Date End Date Hilda Butt MD [address] [place] [address] PCP - General Family Medicine 06/20/22 documented as of this encounter
--- NOTE | 2024-11-22 06:34 | PC.NURSE ---
called [facility] for an ekg
[2024-11-22] MEDS: Lactated Ringers 1,000 ML 100 ML IVCONT (06:57)
[2024-11-22 07:00] LABS: Hematocrit 36.3 % (37.0-47.0); Hemoglobin 12.4 g/dl (12.0-16.0); Mean Corpuscular HGB Conc 34.2 g/dl (31.0-35.0); Mean Corpuscular Hemoglobin 28.6 pg (27.0-33.0); Mean Corpuscular Volume 83.6 fL (80.0-98.0); Mean Platelet Volume 8.7 fL (9.4-12.3); Platelet Count 304 X10*3/uL (160-400); Red Blood Count 4.34 X10*6/uL (4.20-5.50); Red Cell Distribution Width 12.8 % (11.0-16.0); White Blood Count 5.9 X10*3/uL (4.8-10.8)
[2024-11-22 07:04] LABS: Prothrombin Time 11.3 SEC (10.9-12.4)
[2024-11-22 07:07] LABS: Partial Thromboplastin Time 28.3 SEC (26.0-36.8)
[2024-11-22 07:26] LABS: Anion Gap 14 (12-20); Blood Urea Nitrogen 20 mg/dL (9-16); Calcium 9.7 mg/dL (8.4-10.2); Carbon Dioxide 26 mmol/L (22-29); Chloride 105 mmol/L (96-108); Creatinine Clr Calc Pharmacy 74.4; Estimated Glomerular Filt Rate > 60; Glucose Random 112 mg/dL (60-115); Potassium 3.7 mmol/L (3.3-5.1); Sodium 141 mmol/L (135-145)
--- NOTE | 2024-11-22 07:33 | MHC.SHP ---
Pre-Procedural Eval Section A - 24 Hr Update-Section A only Date of Service: 11/22/24 The patient is an INPATIENT: No Changes since office visit: Yes Patient answered all questions The patient has been examined within 24 hours of the surgical procedure. The History & Physical has been completed within 30 days and I have reviewed it.: Yes Section B - Complete if H&P > 30 days Chief Complaint: post op Allergies: Allergies Allergy/AdvReac Type Severity Reaction Status Date / Time lisinopril Allergy Cough Verified 11/01/24 15:46 ham Allergy hives Uncoded 11/01/24 15:46 Plan I have reviewed the history and physical and performed a pertinent physical examination on my patient. No changes have occurred unless specified. Time Spent With Patient Time: Total time managing care of this patient today ____ minutes.
--- NOTE | 2024-11-22 11:20 | P.OP_ITS ---
Operative Note Operative Note Date of Service: 11/22/24 Narrative: Operative note by [facility] Preoperative diagnosis:1. Right Carotid stenosis Postoperative diagnosis: Same Procedure: 1. Right Carotid endarterectomy with patch angioplasty 2. Insertion of right femoral arterial line Surgeon:Dae De Anda M.D. Senior Consumer Insights Consultant: Rachna Lake Anesthesia: General Specimens: 1 Drains: 1 Estimated blood loss: 100 mL Indications: 54-year-old female with significant medical history who on CT scan was noted to have high-grade right carotid stenosis of 90%. She now presents for carotid endarterectomy. She does recognize that she was at an increased risk for complications due to her noncompliance with medications. The patient has signed the informed consent after reviewing risks, complications, benefits, and alternatives previously discussed with the patient. The patient was given the opportunity to ask any additional questions or voice any concerns. All questions were answered to the patient's satisfaction. Procedure in detail: Patient was taken to the operating room and placed in a supine position. Unfortunately a radial arterial line was unable to be obtained. We then prepped the right groin in a standard surgical fashion. Under ultrasound guidance the right common femoral artery was accessed using micropuncture needle wire and subsequently a 4 Croatian sheath. The side port of the 4th Croatian sheath was hooked up to the arterial line. Sterile dressing was applied. We then prepped and draped in sterile manner with ChloraPrep. Longitudinal incision was made along the right anterior border of the sternocleidomastoid carried down through the subcutaneous fat and fascia. Hemostasis was obtained with electrocautery. The platysma muscle was then divided. The carotid sheath was identified in open. The vagus nerve, Ancef cervicalis, and hypoglossal nerves were identified and avoided. The common internal and external carotids were then freed from the surrounding tissue. At this point, 5000 units of heparin was administered and allowed to circulate for 5 minutes time to take effect. The internal, common, external carotids were clamped in that order. Once this was accomplished, we proceeded with the proc edure. The carotid bulb was opened with an 11 blade and extended with Stark scissors through the very tight lesion into normal internal carotid artery. This was then extended down into the common carotid artery. We then placed a Wall shunt. Then the plaque was sharply excised proximally and an eversion endarterectomy was performed successfully at the external. The plaque tapered nicely on to the internal and no tacking sutures were necessary. Heparinized saline was injected and no evidence of flapping or other debris was noted. The remaining carotid was examined, which showed no debris or flaps present. At this point a XenoSure patch was brought on to the field. This was anastomosed to the artery using a 6 0 Prolene in a running fashion. Once approximately 4/5 of the patch was sewn in the shunt was then removed. Prior to the last stitch the internal carotid was back bled through this. Heparinized saline was instilled into the carotid. The last stitch was tied. Hemostasis was excellent. The internal carotid was gently occluded while while of the external and internal were open in that order. Finally the internal was then opened and flow was restored to the entire system. Hemostasis was achieved with interrupted 7-0 Prolene sutures. The wound was irrigated thoroughly. We then placed a 7 flat Zachary-Tong drain. Deep layer was reapproximated using a 2-0 poly Sorb and finally the superficial layer with a 3-0 Polysorb. The skin was closed in a subcuticular manner. The patient awoke and neurologic status was checked and appeared to be intact. Sponge, needle and instrument counts were correct. The patient tolerated the procedure well. Returned to recovery with stable vitals. This note is constructed using voice recognition software. While every effort has been made to ensure accuracy, learning coordinator errors may have been included. Thank you for allowing me to participate in the care of your patient. Yours sincerely, Dae De Anda MD, FACS, R.P.V.I.
[2024-11-22] MEDS: ondansetron HCL 4 MG/2 ML VIAL IVPUSH (11:23)
--- NOTE | 2024-11-22 11:32 | P.HPCC_ITS ---
History of Present Illness Date of Service: 11/22/24 Attending physician on admission: Dae De Anda Chief Complaint: R Carotid Artery Stenosis Patient is a 54 Y F w/ hypertension, hyperlipidemia, non-ischemic cardiomyopathy s/p pacemaker/defibrillator, COPD, prior breast carcinoma, and psychiatric comorbidities, and R carotid artery stenosis, presenting on 11/22 for elective R carotid artery endarterectomy, OR case reportedly uneventful, however, patient developed L hemiparesis in PACU, prompting CT non-contrast H that was grossly unremarkable Review of Systems 2 Review of Systems: Yes all other systems are reviewed and are negative [facility] Past Medical History Medical History Hx of radiation therapy Habitual snoring Cough On beta yamini at home Pacemaker Cardiac resynchronization therapy defibrillator (BINDING CUTTER SYNTHETIC CLOTH-D) in place (~06/2023) LBBB (left bundle branch block) NICM (nonischemic cardiomyopathy) Invasive ductal carcinoma of left breast (~02/2022) Anemia COPD (chronic obstructive pulmonary disease) Hypercholesteremia Bipolar 1 disorder Hypertension Family History Family History Maternal Aunt Lupus Mother Breast cancer Surgical History Surgical History History of cardiac defibrillator placement (~2022) History of cardiac cath (~2021) History of foot surgery (~2006) History of left breast biopsy (~2021) History of lumpectomy of left breast (~2021) History of hysterectomy (~2021) Social History Social History Household Members: None Housing: Apartment Are you a primary landcare facilitator to a significant other at home: No Do you presently have visiting nurse or other home services: Yes (CENTRAL SCHEDULER) Alcohol intake: never Patient Tobacco Use Status: Former Tobacco user Tobacco use type: Cigarette Use of substances other than those prescribed or required for medical reasons: No Have you been hit, kicked, punched, or otherwise hurt by someone within the past year? 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 Meds Allergies Allergy/AdvReac Type Severity Reaction Status Date / Time lisinopril Allergy Cough Verified 11/01/24 15:46 ham Allergy hives Uncoded 11/01/24 15:46 Active Medications: Current Medications Acetaminophen (Acetaminophen 325 Mg Tablet) 650 mg PO Q6H PRN PRN Reason: Pain, Mild 1-3,fever,headache Albuterol Sulfate (Albuterol Sulfate (0.083%) 2.5 Mg/3 Ml Vial.Neb) 2.5 mg INHALE ONCE PRN PRN Reason: Shortness of Breath/Wheezing Calcium Carbonate (Calcium Carbonate 750 Mg Tab.Chew) 750 mg PO Q4H PRN PRN Reason: Heartburn Fentanyl (Fentanyl Citrate/Pf 100 Mcg/2 Ml Vial) 25 mcg IVPUSH Q5M PRN PRN Reason: Pain, Moderate to Severe (Pain Scale 4-10) Stop: 11/22/24 16:27 Lactated Ringer's (Lr) 1,000 mls @ 100 mls/hr IVCONT .Q10H YI Last Admin: 11/22/24 06:57 Dose: 100 mls/hr Sodium Chloride (Ns) 1,000 mls @ 80 mls/hr IVCONT .[id number] YI Cefazolin Sodium/Dextrose (Ancef) 2 gm in 50 mls @ 100 mls/hr IV POSTOP ONE Stop: 11/22/24 14:59 Magnesium Hydroxide (Milk Of Magnesia 30 Ml Oral.Susp) 30 ml PO DAILY PRN PRN Reason: Constipation Melatonin (Melatonin 3 Mg Tablet) 6 mg PO BEDTIME PRN PRN Reason: Insomnia Morphine Sulfate (Morphine Sulfate 2 Mg/Ml Cartridge) 2 mg IVPUSH Q4H PRN; Protocol PRN Reason: Pain, Severe (Pain Scale 7-10) Ondansetron HCl (Ondansetron Hcl 4 Mg/2 Ml Vial) 4 mg IVPUSH ONCE PRN PRN Reason: Nausea and Vomiting Stop: 11/22/24 16:27 Oxycodone HCl (Oxycodone Hcl Immed Release 5 Mg Tablet) 5 mg PO ONCE PRN PRN Reason: Pain, Moderate(Pain Scale 4-6) if no IV Access Stop: 11/22/24 16:27 Oxycodone HCl (Oxycodone Hcl Immed Release 5 Mg Tablet) 5 mg PO Q4H PRN PRN Reason: Pain, Moderate(Pain Scale 4-6) Sodium Chloride (0.9 % Sodium Chloride Flush 3 Ml Syringe) 3 ml IVFLUSH QSHIFT [facility] Home Medications ?Medication ?Instructions ?Recorded ?Confirmed ?Last Taken ?Type albuterol sulfate 90 mcg/actuation 2 inh inhalation QID 08/03/21 11/15/24 Unknown History aerosol inhaler (ProAir HFA) atorvastatin 80 mg tablet 80 mg PO DAILY 07/30/22 11/15/24 11/22/24 History ferrous sulfate 325 mg (65 mg 325 mg PO DAILY 07/30/22 11/15/24 Unknown History iron) tablet (FeroSul) pantoprazole 40 mg tablet,delayed 40 mg PO DAILY 07/30/22 11/15/24 11/22/24 History release cholecalciferol (vitamin D3) 50 50 mcg PO QAM 10/30/22 11/15/24 Unknown History mcg (2,000 unit) capsule (Vitamin D3) ibuprofen 800 mg tablet 800 mg PO Q8H PRN Pain 09/30/24 11/15/24 Unknown History calcium 600 mg (as 1 tab PO BID 11/15/24 11/15/24 Unknown History carbonate)-vitamin D3 10 mcg (400 unit) tablet fluticasone propionate 50 2 spray intranasal BID 11/15/24 11/15/24 Unknown History mcg/actuation nasal spray,suspension montelukast 10 mg tablet 10 mg PO BEDTIME 11/15/24 11/15/24 Unknown History omega 0-uhy-zuh-fish oil 60 mg-90 1 cap PO DAILY 11/15/24 11/15/24 Unknown History mg-500 mg capsule sertraline 50 mg tablet 50 mg PO DAILY 11/15/24 11/15/24 Unknown History ascorbic acid (vitamin C) 250 mg 250 mg PO DAILY 11/22/24 Unknown History tablet aspirin 81 mg tablet,delayed 81 mg PO DAILY 11/22/24 Unknown History release cetirizine 10 mg tablet 10 mg PO DAILY 11/22/24 Unknown History Physical Exam 2 Vital Signs: Vital Signs: Last Vital Signs Temp 98.7 F 11/22/24 11:25 Pulse 83 11/22/24 11:30 Resp 19 11/22/24 11:30 BP 137/67 11/22/24 11:30 Pulse Ox 94 11/22/24 11:30 O2 Del Method Nasal Cannula wit h Capnography 11/22/24 11:30 O2 Flow Rate 4 11/22/24 11:30 BMI result Body Mass Index 32.6 Const: Other: appreciable expressive aphasia, L hemiparesis, though no appreciable L hemineglect General: cooperative, healthy appearing, comfortable, no acute distress, well developed, alert, awake and Physically active Orientation/consciousness: patient oriented x3 HEENT: Head: Yes normal to inspection, Yes normocephalic and Yes atraumatic Eyes: General: appearance normal, both eyes and all related structures Neck: Neck: Yes normal visual inspection, Yes full ROM, Yes no meningeal signs, Yes trachea midline and Yes supple Chest: Chest palpation & inspection: normal inspection of the chest Resp: Other: no appreciable rales, rhonchi, wheezing Effort & Inspection: normal respiratory effort Cardio: Rate: regular rate Rhythm: regular rhythm GI: Inspection: Yes normal to inspection, No Abdominal wall edema and No distended Palpation (GI): Soft to palpation, not firm, nontender, no guarding and not rigid Skin: General skin exam: no rashes or lesions noted Neuro: Other: as described above General: patient oriented x3 and no meningeal signs Extrem: General: Yes normal to inspection, Yes full ROM, Yes capillary refill normal and Yes no clubbing, cyanosis or edema Psych: Appearance: grossly normal Results Labs 11/22/24 06:38 11/22/24 06:38 Labs: Laboratory Results - last 24 hr 11/22/24 06:38 MCV 83.6 MCH 28.6 MCHC 34.2 RDW 12.8 Plt Count 304 MPV 8.7 L Absolute Nucleated RBC 0.000 Nucleated RBC % (auto) 0.0 PT 11.3 INR 1.0 APTT 28.3 Anion Gap 14 Estim Creat Clear Calc 74.4 Estimated GFR > 60 Random Glucose 112 Calcium 9.7 Assessment and Plan (1) Carotid stenosis, right: Status: Acute Plan Patient is a 54 Y F w/ hypertension, hyperlipidemia, non-ischemic cardiomyopathy s/p pacemaker/defibrillator, COPD, prior breast carcinoma, and psychiatric comorbidities, and R carotid artery stenosis, presenting on 11/22 for elective R carotid artery endarterectomy, OR case reportedly uneventful N: expressive aphasia and L hema-paresis s/p R carotid endarterectomy, q1h neuro checks, stat CTA H/N, appreciate neurology recommendations CV: R carotid artery stenosis s/p endarterectomy 11/21; hypertension, hyperlipidemia, resume home medicaitons R: no acute issues GI: no acute issues; NPO, speech/swallow evaluation tomorrow : no acute issues H: no acute issues; avoid chemical DVT prophylaxis golden-procedurally ID: no acute issues E: no acute issues P: no acute issues Total time managing care of this patient today: 60 minutes.
[2024-11-22] MEDS: Haloperidol Lactate 5 MG/ML VIAL 1 MG IVPUSH (12:05)
[2024-11-22] MEDS: ceFAZolin Sodium/Dextrose,Iso 2 GM/50 ML PIGGYBACK IV (14:30)
--- NOTE | 2024-11-22 14:30 | PM.EVENT ---
Event Note Date of Service: 11/22/24 Event Note: Patient was seen and examined postprocedure in PACU. At that time was moving all extremities. Nursing reported patient had intermittently had weakness on the left upper and lower extremity. At the time of my examination at that time was moving all extremities. Few moments later began to have weakness and on reexamined had did not have movement of the left upper and lower extremity. Stat CT of the head was obtained and preliminary read was negative for infarct or stroke. Patient was transferred to ICU. Plan of care was discussed with the ICU team and neurology consult was obtained. At the current time supportive care. Attempted to reach out to the family. Message was left on cell phone to reach back out to my office. We will keep a close eye on this patient. Thank you to the handbag parts cutter team for their assistance in her care. Time Spent With Patient Time: Total time managing care of this patient today ____ minutes.
[2024-11-22] MEDS: 0.9 % Sodium Chloride 1,000 ML 80 ML IVCONT (14:51)
[2024-11-22] MEDS: Morphine Sulfate 2 MG/ML CARTRIDGE IVPUSH ×2 (15:13→23:30)
--- NOTE | 2024-11-22 15:35 | PHA.MEDREC ---
Addendum entered by Paula De Los Santos [facility] 11/22/24 15:55: patient has had sertraline and spironolactone filled with med box on 11/10/24, left on. Addendum entered by Paula De Los Santos [facility] 11/22/24 15:54: reviewed by [facility]. Original Note: Pharmacy Consult ? Medication Reconciliation Pharmacy has completed the medication reconciliation. Spoke with patient daughter Kailey when I called patients son (Be) phone number and she was able to confirm her moms medications except for the Sertraline 50mg tab and Spironolactone 25mg tab, she was not sure if her mom is still taking those and thinks there was something recently with those two that have been updated on. The daughter confirmed the patient took her Atorvastatin and Metoprolol tablets this morning and everything else yesterday. I asked when Be would be available to talk and confirm those and the daughter stated he is not available until tomorrow; we will attempt to speak with kye ramírez to try and get information out of her but if not Am team can call and speak with patients son tomorrow.
[2024-11-22] MEDS: iohexoL 350 MG/ML 100 ML INFUS..BTL 70 ML IV (15:51)
--- NOTE | 2024-11-22 16:19 | MHC.STROKE ---
Addendum entered by Love Billings 12/21/24 09:39: NIH completed at time of my visit. NIH 4 Original Note: Pt in room 262 s/p carotid endarterectomy. Pt drowsy but arousable to verbal stimuli. Able to answer basic questions from this RN. Pt with left sided hemiparesis. CTH completed while patient was in PACU. Pt to have CTA done to r/o stroke. Neurology consult placed and office aware. Will continue to assist as needed.
[2024-11-22] MEDS: 0.9 % Sodium Chloride Flush 3 ML SYRINGE IVFLUSH ×2 (16:23→23:33)
[2024-11-22] MEDS: Heparin Sodium,Porcine/1/2NS 25,000 UNIT/250 ML IV.SOLN 9.04 UNIT IVCONT (16:50)
[2024-11-22 17:01] LABS: Hematocrit 35.1 % (37.0-47.0); Hemoglobin 11.6 g/dl (12.0-16.0); Mean Corpuscular Hemoglobin 28.6 pg (27.0-33.0); Mean Corpuscular Volume 86.5 fL (80.0-98.0); Mean Platelet Volume 8.8 fL (9.4-12.3); Platelet Count 282 X10*3/uL (160-400); Red Blood Count 4.06 X10*6/uL (4.20-5.50); Red Cell Distribution Width 13.1 % (11.0-16.0); White Blood Count 13.9 X10*3/uL (4.8-10.8)
[2024-11-22 17:14] LABS: Partial Thromboplastin Time 26.4 SEC (26.0-36.8)
--- NOTE | 2024-11-22 18:09 | HO.ANESPROP2 ---
Documented by User: Tala Hanna MD 12/06/24 13:26 [facility] Past Medical History Medical History Dysphagia Hx of radiation therapy Habitual snoring Cough On beta yamini at home Pacemaker Cardiac resynchronization therapy defibrillator (AUTOMOBILE DAMAGE APPRAISER-D) in place (~06/2023) LBBB (left bundle branch block) NICM (nonischemic cardiomyopathy) Invasive ductal carcinoma of left breast (~02/2022) Anemia COPD (chronic obstructive pulmonary disease) Hypercholesteremia Bipolar 1 disorder Hypertension Functional capacity: uses cane/walker Family History Family History Maternal Aunt Lupus Mother Breast cancer Surgical History Surgical History History of cardiac defibrillator placement (~2022) History of cardiac cath (~2021) History of foot surgery (~2006) History of left breast biopsy (~2021) History of lumpectomy of left breast (~2021) History of hysterectomy (~2021) Social History Social History Household Members: None Housing: Apartment Are you a primary medical care administrator to a significant other at home: No Do you presently have visiting nurse or other home services: Yes (CREDIT CARD ASSOCIATE) Alcohol intake: never Patient Tobacco Use Status: Former Tobacco user Tobacco use type: Cigarette service: No 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al status: disabled 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 Meds Allergies Allergy/AdvReac Type Severity Reaction Status Date / Time lisinopril Allergy Cough Verified 11/01/24 15:46 ham Allergy hives Uncoded 11/01/24 15:46 Home Medications ?Medication ?Instructions ?Recorded ?Confirmed ?Last Taken ?Type atorvastatin 80 mg tablet 80 mg PO DAILY 07/30/22 11/22/24 11/22/24 History ferrous sulfate 325 mg (65 mg 325 mg PO DAILY 07/30/22 11/22/24 11/21/24 History iron) tablet (FeroSul) pantoprazole 40 mg tablet,delayed 40 mg PO DAILY@0630 07/30/22 11/22/24 11/21/24 History release cholecalciferol (vitamin D3) 50 50 mcg PO DAILY 10/30/22 11/22/2425 History mcg (2,000 unit) capsule (Vitamin D3) montelukast 10 mg tablet 10 mg PO BEDTIME 11/15/24 11/22/24 11/21/24 History omega 0-fiv-nfr-fish oil 60 mg-90 1 cap PO DAILY 11/15/24 11/22/24 11/21/24 History mg-500 mg capsule sertraline 50 mg tablet 50 mg PO DAILY 11/15/24 11/22/24 Unknown History albuterol sulfate 90 mcg/actuation 2 inh inhalation Q6H PRN Shortness 11/22/24 11/22/24 Unknown History aerosol inhaler (Ventolin HFA) Of Breath Or Wheezing ascorbic acid (vitamin C) 250 mg 250 mg PO DAILY 11/22/24 11/22/24 11/21/24 History tablet aspirin 81 mg tablet,delayed 81 mg PO DAILY 11/22/24 11/22/24 11/21/24 History release cetirizine 10 mg tablet 10 mg PO DAILY PRN Allergy Symptoms 11/22/24 11/22/24 Unknown History Documented by User: Heather Angeles MD [facility] Active Problems Active Problems: All Active Problems Carotid stenosis, right (Acute) Right cavernous carotid stenosis (Acute) Environmental allergies (Acute) Multiple pulmonary nodules (Acute) Pulmonary nodule (Acute) Pulsatile tinnitus of right ear (Acute) Bilateral carotid artery stenosis (Acute) Dyspnea on exertion (Acute) Lateral epicondylitis of right elbow (Acute) LBBB (left bundle branch block) (Acute) NICM (nonischemic cardiomyopathy) (Acute) Invasive ductal carcinoma of left breast (Chronic ~02/2022) Cardiac resynchronization therapy defibrillator (AUTOMOBILE DAMAGE APPRAISER-D) in place (Acute ~06/2023) Hypertension (Acute) COPD (chronic obstructive pulmonary disease) (Acute) Past Medical History Medical History Dysphagia Hx of radiation therapy Habitual snoring Cough On beta yamini at home Pacemaker Cardiac resynchronization therapy defibrillator (AUTOMOBILE DAMAGE APPRAISER-D) in place (~06/2023) LBBB (left bundle branch block) NICM (nonischemic cardiomyopathy) Invasive ductal carcinoma of left breast (~02/2022) Anemia COPD (chronic obstructive pulmonary disease) Hypercholesteremia Bipolar 1 disorder Hypertension Family History Family History Maternal Aunt Lupus Mother Breast cancer Family history of problems with anesthesia: No Surgical History Surgical History History of cardiac defibrillator placement (~2022) History of cardiac cath (~2021) History of foot surgery (~2006) History of left breast biopsy (~2021) History of lumpectomy of left breast (~2021) History of hysterectomy (~2021) History of Problems with Anesthesia: No Social History Social History Household Members: None Housing: Apartment Are you a primary medical care administrator to a significant other at home: No Do you presently have visiting nurse or other home services: Yes (CREDIT CARD ASSOCIATE) Alcohol intake: never Patient Tobacco Use Status: Former Tobacco user Tobacco use type: Cigarette service: No 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al status: disabled 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 Meds Allergies Allergy/AdvReac Type Severity Reaction Status Date / Time lisinopril Allergy Cough Verified 11/01/24 15:46 ham Allergy hives Uncoded 11/01/24 15:46 Active Medications: Current Medications Albuterol Sulfate (Albuterol Sulfate (0.083%) 2.5 Mg/3 Ml Vial.Neb) 2.5 mg INHALE ONCE PRN PRN Reason: Shortness of Breath/Wheezing Heparin Sodium (Porcine) (Heparin Sodium,Porcine 5,000 Unit/Ml Vial) 3,000 unit 40 unit/kg (3000 unit) IVPUSH PROTOCOL BOLUS PRN; Protocol PRN Reason: 40 unit/kg - Heparin Protocol Heparin Sodium (Porcine) (Heparin Sodium,Porcine 5,000 Unit/Ml Vial) 6,000 unit 80 unit/kg (6000 unit) IVPUSH PROTOCOL BOLUS PRN; Protocol PRN Reason: 80 unit/kg - Heparin Protocol Sodium Chloride (Ns) 1,000 mls @ 80 mls/hr IVCONT .[id number] [facility] Last Admin: 11/22/24 14:51 Dose: 80 mls/hr Heparin Sodium/Sodium Chloride (Heparin Sodium,Porcine/1/2ns) 25,000 unit in 250 mls @ 0 mls/hr IVCONT .Q0M [facility]; Protocol Last Admin: 11/22/24 16:50 Dose: 12 units/kg/hr, 9.04 mls/hr Acetaminophen (Ofirmev) 1,000 mg in 100 mls @ 400 mls/hr IV Q6H PRN PRN Reason: Pain, Moderate(Pain Scale 4-6) Stop: 11/23/24 10:44 Morphine Sulfate (Morphine Sulfate 2 Mg/Ml Cartridge) 2 mg IVPUSH Q4H PRN; Protocol PRN Reason: Pain, Severe (Pain Scale 7-10) Last Admin: 11/22/24 15:13 Dose: 2 mg Sodium Chloride (0.9 % Sodium Chloride Flush 3 Ml Syringe) 3 ml IVFLUSH QSHIFT [facility] Last Admin: 11/22/24 16:23 Dose: 3 ml Home Medications ?Medication ?Instructions ?Recorded ?Confirmed ?Last Taken ?Type atorvastatin 80 mg tablet 80 mg PO DAILY 07/30/22 11/22/24 11/22/24 History ferrous sulfate 325 mg (65 mg 325 mg PO DAILY 07/30/22 11/22/24 11/21/24 History iron) tablet (FeroSul) pantoprazole 40 mg tablet,delayed 40 mg PO DAILY@0630 07/30/22 11/22/24 11/21/24 History release cholecalciferol (vitamin D3) 50 50 mcg PO DAILY 10/30/22 11/22/24 11/21/24 History mcg (2,000 unit) capsule (Vitamin D3) montelukast 10 mg tablet 10 mg PO BEDTIME 11/15/24 11/22/24 11/21/24 History omega 4-kiz-acy-fish oil 60 mg-90 1 cap PO DAILY 11/15/24 11/22/24 11/21/24 History mg-500 mg capsule sertraline 50 mg tablet 50 mg PO DAILY 11/15/24 11/22/24 Unknown History albuterol sulfate 90 mcg/actuation 2 inh inhalation Q6H PRN Shortness 11/22/24 11/22/24 Unknown History aerosol inhaler (Ventolin HFA) Of Breath Or Wheezing ascorbic acid (vitamin C) 250 mg 250 mg PO DAILY 11/22/24 11/22/24 11/21/24 History tablet aspirin 81 mg tablet,delayed 81 mg PO DAILY 11/22/24 11/22/24 11/21/24 History release cetirizine 10 mg tablet 10 mg PO DAILY PRN Allergy Symptoms 11/22/24 11/22/24 Unknown History Exam Height,Weight and Vital Signs: Height 4 ft 11 in Weight 75.3 kg Last Vital Signs Temp 97.5 F 11/22/24 14:00 Pulse 72 11/22/24 17:00 Resp 20 11/22/24 17:00 BP 137/64 11/22/24 17:00 Pulse Ox 92 11/22/24 17:00 O2 Del Method Room Air 11/22/24 17:00 O2 Flow Rate 2 11/22/24 13:50 Pertinent Lab Results Pertinent Lab Results: Laboratory Tests 11/15/24 11/22/24 11/22/24 10:50 06:38 16:28 WBC 5.9 13.9 H RBC 4.34 4.06 L Hgb 12.4 11.6 L Hct 36.3 L 35.1 L MCV 83.6 86.5 MCH 28.6 28.6 MCHC 34.2 33.0 RDW 12.8 13.1 Plt Count 304 282 MPV 8.7 L 8.8 L Absolute Nucleated RBC 0.000 0.000 Nucleated RBC % (auto) 0.0 0.0 PT 11.3 12.0 INR 1.0 1.0 APTT 28.3 26.4 Sodium 141 Potassium 3.7 Chloride 105 Carbon Dioxide 26 Anion Gap 14 BUN 20 H Creatinine 0.77 Estim Creat Clear Calc 74.4 Estimated GFR > 60 Random Glucose 112 Calcium 9.7 Blood Type O Positive O Positive Antibody Screen NEGATIVE NEGATIVE Assessment and Plan Final Anesthetic Review Family History of Problems with Anesthesia: No History of Problems with Anesthesia: No
--- NOTE | 2024-11-22 21:09 | P.OP_ITS ---
Operative Note Operative Note Date of Service: 11/22/24 Narrative: Operative note by [facility] Preoperative diagnosis: Right carotid occlusion Postoperative diagnosis: Same Procedure: Right Carotid exploration with patch revision Surgeon:Dae De Anda M.D. Digital Specialist: Dr. Carlos Anesthesia: General Specimens: None Drains: 1 Estimated blood loss: 100 mL Indications: 54-year-old female with high-grade right carotid stenosis underwent right carotid endarterectomy earlier today. Postoperatively was neurologically intact and throughout the day developed left lower extremity and upper extremity weakness. CT scan of the head was negative but subsequently a CT angiogram of the neck demonstrated an acute carotid occlusion/dissection proximally 1.3 cm above the carotid bifurcation. Due to the acute nature of this we decided to explore. The patient has signed the informed consent after reviewing risks, complications, benefits, and alternatives previously discussed with the patient. The patient was given the opportunity to ask any additional questions or voice any concerns. All questions were answered to the patient's satisfaction. Procedure in detail: Patient was taken to the operating room and placed in a supine position and prepped and draped in sterile manner with ChloraPrep. Longitudinal incision was made along the anterior border of the sternocleidomastoid carried down through the subcutaneous fat and fascia. This was right through the previous incision Hemostasis was obtained with electrocautery. T The common internal and external carotids were then freed from the surrounding tissue. At this point, 3000 units of heparin was administered and allowed to circulate for 5 minutes time to take effect. The internal, common, external carotids were clamped in that order. Once this was accomplished, we proceeded with the procedure. We made a arteriotomy right through our previous XenoSure patch. We went from the common to the internal carotid. This was open further. We were able to identify the internal carotid. We did notice that there was a pulse through the common carotid the origin of the internal carotid and external carotid. We then opened up the arteriotomy and it was clear all the way up beyond the patch. We were easily able to gently pass a fine clamp up that far. Beyond that it was slow flow. We then tried to advance an uninflated Santino catheter through. At that point it was difficult to pass and we were nearly 4 cm beyond our carotid patch. This was beyond the cervical portion of the carotid. There appeared to be no intimal flap this was examined thoroughly. We then reapproximated the patch with a 6 0 Prolene stitch. Prior to closure we flushed this clear. Adequate hemostasis was achieved. We placed once again a 7 flat Zachary-Tong drain. The incision was closed with 2-0 Polysorb 3-0 Polysorb and subsequently skin with a 4-0 Monocryl. Zachary-Tong drain was sutured in with a 2-0 nylon stitch. Adequate hemostasis was achieved. Patient tolerated the procedure. Returned to ICU with stable vitals. This note is constructed using voice recognition software. While every effort has been made to ensure accuracy, customer logistics manager errors may have been included. Thank you for allowing me to participate in the care of your patient. Yours sincerely, Dae De Anda MD, FACS, R.P.V.I.
--- NOTE | 2024-11-22 21:16 | P.EN_ITS ---
Event Note Date of Service: 11/22/24 Event Note: Acute occlusion of carotid identified earlier today. Decision was made to re- explore due to the left upper extremity and lower extremity weakness. This was discussed in detail with the patient. We tried to reach out to the family did not return call. We decided to proceed with the exploration. Patient demonstrated an understanding and wanted to proceed. Time Spent With Patient Time: Total time managing care of this patient today ____ minutes.
--- NOTE | 2024-11-22 21:20 | PM.EVENT ---
Event Note Date of Service: 11/22/24 Event Note: I was able to reach her daughter Kailey at 09:20 on 11/22/2024. She was updated with all the ongoing throughout the day and events. She is well aware that she will have an extended stay throughout the hospital. Time Spent With Patient Time: Total time managing care of this patient today ____ minutes.
--- NOTE | 2024-11-22 22:10 | HO.ANESPROP2 ---
[facility] Active Problems Active Problems: All Active Problems Carotid stenosis, right (Acute) Right cavernous carotid stenosis (Acute) Environmental allergies (Acute) Multiple pulmonary nodules (Acute) Pulmonary nodule (Acute) Pulsatile tinnitus of right ear (Acute) Bilateral carotid artery stenosis (Acute) Dyspnea on exertion (Acute) Lateral epicondylitis of right elbow (Acute) LBBB (left bundle branch block) (Acute) NICM (nonischemic cardiomyopathy) (Acute) Invasive ductal carcinoma of left breast (Chronic ~02/2022) Cardiac resynchronization therapy defibrillator ([employer]-D) in place (Acute ~06/2023) Hypertension (Acute) COPD (chronic obstructive pulmonary disease) (Acute) Past Medical History Medical History Hx of radiation therapy Habitual snoring Cough On beta yamini at home Pacemaker Cardiac resynchronization therapy defibrillator ([employer]-D) in place (~06/2023) LBBB (left bundle branch block) NICM (nonischemic cardiomyopathy) Invasive ductal carcinoma of left breast (~02/2022) Anemia COPD (chronic obstructive pulmonary disease) Hypercholesteremia Bipolar 1 disorder Hypertension Functional capacity: bed bound Patient : No Family History Family History Maternal Aunt Lupus Mother Breast cancer Family history of problems with anesthesia: No Surgical History Surgical History History of cardiac defibrillator placement (~2022) History of cardiac cath (~2021) History of foot surgery (~2006) History of left breast biopsy (~2021) History of lumpectomy of left breast (~2021) History of hysterectomy (~2021) History of Problems with Anesthesia: No Social History Social History Household Members: None Housing: Apartment Are you a primary manager progressive care to a significant other at home: No Do you presently have visiting nurse or other home services: Yes ([employer]) Alcohol intake: never Patient Tobacco Use Status: Former Tobacco user Tobacco use type: Cigarette Use of substances other than those prescribed or required for medical reasons: No Have you been hit, kicked, punched, or otherwise hurt by someone within the past year? 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 Meds Allergies Allergy/AdvReac Type Severity Reaction Status Date / Time lisinopril Allergy Cough Verified 11/01/24 15:46 ham Allergy hives Uncoded 11/01/24 15:46 Active Medications: Current Medications Albuterol Sulfate (Albuterol Sulfate (0.083%) 2.5 Mg/3 Ml Vial.Neb) 2.5 mg INHALE ONCE PRN PRN Reason: Shortness of Breath/Wheezing Heparin Sodium (Porcine) (Heparin Sodium,Porcine 5,000 Unit/Ml Vial) 3,000 unit 40 unit/kg (3000 unit) IVPUSH PROTOCOL BOLUS PRN; Protocol PRN Reason: 40 unit/kg - Heparin Protocol Heparin Sodium (Porcine) (Heparin Sodium,Porcine 5,000 Unit/Ml Vial) 6,000 unit 80 unit/kg (6000 unit) IVPUSH PROTOCOL BOLUS PRN; Protocol PRN Reason: 80 unit/kg - Heparin Protocol Sodium Chloride (Ns) 1,000 mls @ 80 mls/hr IVCONT .[id number] [facility] Last Admin: 11/22/24 14:51 Dose: 80 mls/hr Heparin Sodium/Sodium Chloride (Heparin Sodium,Porcine/1/2ns) 25,000 unit in 250 mls @ 0 mls/hr IVCONT .Q0M [facility]; Protocol Last Admin: 11/22/24 16:50 Dose: 12 units/kg/hr, 9.04 mls/hr Acetaminophen (Ofirmev) 1,000 mg in 100 mls @ 400 mls/hr IV Q6H PRN PRN Reason: Pain, Moderate(Pain Scale 4-6) Stop: 11/23/24 10:44 Morphine Sulfate (Morphine Sulfate 2 Mg/Ml Cartridge) 2 mg IVPUSH Q4H PRN; Protocol PRN Reason: Pain, Severe (Pain Scale 7-10) Last Admin: 11/22/24 15:13 Dose: 2 mg Sodium Chloride (0.9 % Sodium Chloride Flush 3 Ml Syringe) 3 ml IVFLUSH QSHIFT YI Last Admin: 11/22/24 16:23 Dose: 3 ml Home Medications ?Medication ?Instructions ?Recorded ?Confirmed ?Last Taken ?Type atorvastatin 80 mg tablet 80 mg PO DAILY 07/30/22 11/22/24 11/22/24 History ferrous sulfate 325 mg (65 mg 325 mg PO DAILY 07/30/22 11/22/24 11/21/24 History iron) tablet (FeroSul) pantoprazole 40 mg tablet,delayed 40 mg PO DAILY@0630 07/30/22 11/22/24 11/21/24 History release cholecalciferol (vitamin D3) 50 50 mcg PO DAILY 10/30/22 11/22/24 11/21/24 History mcg (2,000 unit) capsule (Vitamin D3) montelukast 10 mg tablet 10 mg PO BEDTIME 11/15/24 11/22/24 11/21/24 History omega 1-nzr-xro-fish oil 60 mg-90 1 cap PO DAILY 11/15/24 11/22/24 11/21/24 History mg-500 mg capsule sertraline 50 mg tablet 50 mg PO DAILY 11/15/24 11/22/24 Unknown History albuterol sulfate 90 mcg/actuation 2 inh inhalation Q6H PRN Shortness 11/22/24 11/22/24 Unknown History aerosol inhaler (Ventolin HFA) Of Breath Or Wheezing ascorbic acid (vitamin C) 250 mg 250 mg PO DAILY 11/22/24 11/22/24 11/21/24 History tablet aspirin 81 mg tablet,delayed 81 mg PO DAILY 11/22/24 11/22/24 11/21/24 History release cetirizine 10 mg tablet 10 mg PO DAILY PRN Allergy Symptoms 11/22/24 11/22/24 Unknown History Exam Height,Weight and Vital Signs: Height 4 ft 11 in Weight 75.3 kg Last Vital Signs Temp 98.2 F 11/22/24 21:20 Pulse 76 11/22/24 21:57 Resp 22 H 11/22/24 21:57 BP 136/62 11/22/24 21:57 Pulse Ox 90 L 11/22/24 21:57 O2 Del Method Nasal Cannula 11/22/24 21:57 O2 Flow Rate 2 11/22/24 21:57 Pertinent Lab Results Pertinent Lab Results: Laboratory Tests 11/15/24 11/22/24 11/22/24 10:50 06:38 16:28 WBC 5.9 13.9 H RBC 4.34 4.06 L Hgb 12.4 11.6 L Hct 36.3 L 35.1 L MCV 83.6 86.5 MCH 28.6 28.6 MCHC 34.2 33.0 RDW 12.8 13.1 Plt Count 304 282 MPV 8.7 L 8.8 L Absolute Nucleated RBC 0.000 0.000 Nucleated RBC % (auto) 0.0 0.0 PT 11.3 12.0 INR 1.0 1.0 APTT 28.3 26.4 Sodium 141 Potassium 3.7 Chloride 105 Carbon Dioxide 26 Anion Gap 14 BUN 20 H Creatinine 0.77 Estim Creat Clear Calc 74.4 Estimated GFR > 60 Random Glucose 112 Calcium 9.7 Blood Type O Positive O Positive Antibody Screen NEGATIVE NEGATIVE Narrative Narrative: left sided hemiplegia(left arm and leg paralised, Alert Airway Mallampati Class: III TM Dist: >3cm Neck ROM: Full Heart: regular Lungs: CTA Assessment and Plan Assessment Anesthesia Assessment: Anesthesia Plan Discussed and Chart Reviewed Final Anesthetic Review Family History of Problems with Anesthesia: No History of Problems with Anesthesia: No NPO: Yes ASA Class: III and Emergency Final Preanesthetic Review: Meds/Allgs Chart Reviewed, Consent Obtained/Reviewed and Anes Risks/Benef Reviewed Patient Risk: Intermediate Procedure Risk: Intermediate Anesthetic Plan Anesthetic Plan: GA Disposition: Standard PACU
[2024-11-22 23:03] LABS: MANUAL DIFF FLAG NO
[2024-11-22 23:04] LABS: Basophils Percent Auto 0.2 % (0-2); Hematocrit 29.5 % (37.0-47.0); Imm Gran Abs Auto 0.06 X10*3/uL (0.00-0.03); Imm Gran Pct Auto 0.5 % (0.0-0.4); Lymphocytes Absolute Auto 0.8 X10*3/uL (1.2-4.9); Lymphocytes Percent Auto 6.4 % (20-40); Mean Corpuscular HGB Conc 33.9 g/dl (31.0-35.0); Mean Corpuscular Hemoglobin 28.9 pg (27.0-33.0); Mean Corpuscular Volume 85.3 fL (80.0-98.0); Mean Platelet Volume 8.5 fL (9.4-12.3); Monocytes Absolute Auto 0.6 X10*3/uL (0.1-1.2); Monocytes Percent Auto 4.9 % (2-11); Neutrophils Absolute Auto 11.1 x10*3/uL (2.0-8.3); Platelet Count 260 X10*3/uL (160-400); Red Blood Count 3.46 X10*6/uL (4.20-5.50); Red Cell Distribution Width 13.1 % (11.0-16.0); White Blood Count 12.6 X10*3/uL (4.8-10.8)
[2024-11-22 23:12] LABS: PTT Heparin Drip 69.7 SEC (53-77.9)
[2024-11-22 23:30] LABS: Albumin Level 3.5 g/dL (3.5-5.0); Anion Gap 9 (12-20); Blood Urea Nitrogen 14 mg/dL (9-16); Calcium 8.1 mg/dL (8.4-10.2); Carbon Dioxide 23 mmol/L (22-29); Chloride 112 mmol/L (96-108); Creatinine Clr Calc Pharmacy 88.1; Estimated Glomerular Filt Rate > 60; Glucose Random 143 mg/dL (60-115); Potassium 3.8 mmol/L (3.3-5.1); Sodium 140 mmol/L (135-145)
[2024-11-23] VITALS (38 sets, daily range): BP systolic 93–178; BP diastolic 38–106; PULSE 73–118; RESP 16–30; TEMP 34.2–37.1; O2SAT 92–100; BMI 34.8
[2024-11-23] MEDS: Morphine Sulfate 2 MG/ML CARTRIDGE IVPUSH ×2 (03:06→06:24)
[2024-11-23] MEDS: 0.9 % Sodium Chloride 1,000 ML 80 ML IVCONT (03:10)
[2024-11-23 05:42] LABS: MANUAL DIFF FLAG NO
[2024-11-23 05:44] LABS: Basophils Percent Auto 0.2 % (0-2); Hematocrit 26.9 % (37.0-47.0); Imm Gran Abs Auto 0.08 X10*3/uL (0.00-0.03); Imm Gran Pct Auto 0.6 % (0.0-0.4); Lymphocytes Absolute Auto 1.2 X10*3/uL (1.2-4.9); Lymphocytes Percent Auto 9.6 % (20-40); Mean Corpuscular HGB Conc 33.5 g/dl (31.0-35.0); Mean Corpuscular Hemoglobin 28.7 pg (27.0-33.0); Mean Corpuscular Volume 85.7 fL (80.0-98.0); Mean Platelet Volume 8.5 fL (9.4-12.3); Monocytes Absolute Auto 0.8 X10*3/uL (0.1-1.2); Monocytes Percent Auto 6.5 % (2-11); Neutrophils Absolute Auto 10.3 x10*3/uL (2.0-8.3); Neutrophils Percent Auto 83.1 % (45-73); Platelet Count 267 X10*3/uL (160-400); Red Blood Count 3.14 X10*6/uL (4.20-5.50); Red Cell Distribution Width 13.2 % (11.0-16.0); White Blood Count 12.4 X10*3/uL (4.8-10.8)
[2024-11-23 05:49] LABS: INTERNATIONAL NORM RATIO 1.1 (0.9-1.1); Prothrombin Time 12.7 SEC (10.9-12.4)
[2024-11-23 05:52] LABS: PTT Heparin Drip 56.8 SEC (53-77.9)
[2024-11-23 06:04] LABS: Anion Gap 11 (12-20); Blood Urea Nitrogen 13 mg/dL (9-16); Calcium 8.1 mg/dL (8.4-10.2); Carbon Dioxide 23 mmol/L (22-29); Chloride 110 mmol/L (96-108); Creatinine Clr Calc Pharmacy 100.6; Estimated Glomerular Filt Rate > 60; Glucose Random 139 mg/dL (60-115); Magnesium 1.8 mg/dL (1.6-2.6); Phosphorus 3.6 mg/dL (2.7-4.5); Potassium 3.7 mmol/L (3.3-5.1); Sodium 140 mmol/L (135-145)
--- NOTE | 2024-11-23 07:11 | PC.NURSE ---
R endarterectomy surgical?with bloody drainage - dressing reinforced x4 throughout shift. 0600 - Pt with diffuse bleeding from R endarterectomy surgical site (see photo below), HELEN drain appears clotted - attempted to expel clot without success. Increased swelling of bilateral neck, pt voice hoarse, spO2 remains >95% on 1L oxymask. 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 Orders to pause heparin gtt. Pt medicated with prn morphine for 10/10 pain at surgical?site.?
[2024-11-23] MEDS: Rocuronium Bromide 50 MG/5 ML VIAL 100 MG IV (07:35)
[2024-11-23] MEDS: propofoL 200 MG/20 ML VIAL 100 MG IVPUSH (07:44)
[2024-11-23] MEDS: Norepinephrine Bitartrate/D5W 8 MG/250 ML PLAST..BAG 7.33 MG IVCONT (07:50)
[2024-11-23] MEDS: propofoL 1,000 MG/100 ML VIAL 14.08 MG IVCONT (07:50)
--- NOTE | 2024-11-23 07:56 | PM.CCPN ---
Subjective Subjective Date of Service: 11/23/24 Interval History: of note, patient w/ appreciable increased firmness R lateral neck and tongue at around 06:00, c/f expanding hematoma; at around 07:30, patient developed hypoxia, c/f aspiration, decision to emergently intubate; anesthesia team called and performed intubation; patient appreciably hypoxic, bradycardic, though hypertensive throughout intubation, all of which improved following intubation Critical Care Time (minutes): 90 Physical Exam Vital Signs: Vital Signs: Last Vital Signs Temp 98.3 F 11/23/24 05:46 Pulse 98 11/23/24 07:00 Resp 23 H 11/23/24 07:00 BP 157/71 H 11/23/24 07:00 Pulse Ox 92 11/23/24 07:00 O2 Del Method Oxymask 11/23/24 07:00 O2 Flow Rate 1 11/23/24 07:00 Oxygen Flow Rate 2 11/22/24 22:14 BMI result Body Mass Index 34.8 Const: Other: intubated, sedated General: no acute distress and well developed HEENT: Other: appreciable circumferential firmness of neck, R neck w/ overlying bandage saturated w/ bright red blood, appreciable HELEN drain w/ bright red blood and some dark clots Eyes: General: appearance normal, both eyes and all related structures Neck: Other: as descibed above Chest: Chest palpation & inspection: normal inspection of the chest Resp: Other: no appreciable rales, rhonchi, wheezing Effort & Inspection: normal respiratory effort Cardio: Rate: regular rate Rhythm: regular rhythm GI: Inspection: Yes normal to inspection, No Abdominal wall edema and No distended Palpation (GI): Soft to palpation, not firm, nontender, no guarding and not rigid Skin: General skin exam: no rashes or lesions noted Neuro: Other: unable to assess d/t clinical status Extrem: General: Yes normal to inspection, Yes capillary refill normal and Yes no clubbing, cyanosis or edema Psych: Other: unable to assess d/t clinical status Objective Data Labs 11/23/24 05:33 11/23/24 05:33 Labs: Laboratory Results - last 24 hr 11/22/24 11/22/24 11/23/24 16:28 22:58 05:33 WBC 13.9 H 12.6 H 12.4 H RBC 4.06 L 3.46 L 3.14 L Hgb 11.6 L 10.0 L 9.0 L Hct 35.1 L 29.5 L 26.9 L MCV 86.5 85.3 85.7 MCH 28.6 28.9 28.7 MCHC 33.0 33.9 33.5 RDW 13.1 13.1 13.2 Plt Count 282 260 267 MPV 8.8 L 8.5 L 8.5 L Immature Gran % (Auto) 0.5 H 0.6 H Neut % (Auto) 88.0 H 83.1 H Lymph % (Auto) 6.4 L 9.6 L Clayton % (Auto) 4.9 6.5 Eos % (Auto) 0.0 0.0 Baso % (Auto) 0.2 0.2 Lymph # (Auto) 0.8 L 1.2 Clayton # (Auto) 0.6 0.8 Eos # (Auto) 0.0 0.0 Baso # (Auto) 0.0 0.0 Abs Immat Gran (auto) 0.06 H 0.08 H Absolute Neuts (auto) 11.1 H 10.3 H Absolute Nucleated RBC 0.000 0.000 0.000 Nucleated RBC % (auto) 0.0 0.0 0.0 PT 12.0 12.7 H INR 1.0 1.1 APTT 26.4 aPTT Heparin Protocol 69.7 56.8 Sodium 140 140 Potassium 3.8 3.7 Chloride 112 H 110 H Carbon Dioxide 23 23 Anion Gap 9 L 11 L BUN 14 13 Creatinine 0.66 0.59 Estim Creat Clear Calc 88.1 100.6 Estimated GFR > 60 > 60 Random Glucose 143 H 139 H Calcium 8.1 L D 8.1 L Phosphorus 3.6 Magnesium 1.8 Albumin 3.5 Blood Type O Positive Antibody Screen NEGATIVE Crossmatch See Detail Progress Note: A&P Assessment and plan (1) Carotid stenosis, right: Status: Acute (2) Dissection of right carotid artery: Status: Acute Plan Patient is a 54 Y F w/ hypertension, hyperlipidemia, non-ischemic cardiomyopathy s/p pacemaker/defibrillator, COPD, prior breast carcinoma, and psychiatric comorbidities, and R carotid artery stenosis, presenting on 11/22 for elective R carotid artery endarterectomy; case c/b R ICA occlusion d/t dissection and expanding hematoma compromising airway, intubated 11/23 N: R ICA occlusion d/t dissection, c/b expressive aphasia and L hema-paresis, q1h neuro checks, appreciate neurology recommendations CV: R carotid artery stenosis s/p endarterectomy 11/21, c/b R ICA occlusion d/t dissection and expanding hematoma; hypotension, likely d/t sedation, norepinephrine gtt, wean as tolerated R: R carotid artery stenosis s/p endarterectomy 11/21, c/b R ICA occlusion d/t dissection and expanding hematoma compromising airway, intubated 11/23 GI: no acute issues; NPO : no acute issues H: no acute issues; avoid chemical DVT prophylaxis golden-procedurally, mechanical devices ID: no acute issues E: no acute issues P: no acute issues Quality Stroke Does the patient have a stroke diagnosis?: Yes Reason for No Anti-thrombotic by Day Two: Contraindicated VTE Prior VTE?: No VTE Risk Level:: Medical - moderate - high VTE Device Contraindication: N/A - Device Ordered VTE Drug Contraindication: Treatment Not Tolerated
[2024-11-23 08:27] LABS: MANUAL DIFF FLAG NO
[2024-11-23] MEDS: Calcium Gluconate/NaCl,Iso-Osm 1 GM/50 ML PLAST..BAG IV ×2 (08:30→13:39)
[2024-11-23 08:32] LABS: Basophils Percent Auto 0.1 % (0-2); Hemoglobin 9.8 g/dl (12.0-16.0); Imm Gran Abs Auto 0.11 X10*3/uL (0.00-0.03); Imm Gran Pct Auto 0.8 % (0.0-0.4); Lymphocytes Absolute Auto 1.5 X10*3/uL (1.2-4.9); Lymphocytes Percent Auto 10.8 % (20-40); Mean Corpuscular HGB Conc 32.7 g/dl (31.0-35.0); Mean Corpuscular Volume 88.8 fL (80.0-98.0); Mean Platelet Volume 8.7 fL (9.4-12.3); Monocytes Absolute Auto 0.8 X10*3/uL (0.1-1.2); Monocytes Percent Auto 6.1 % (2-11); Neutrophils Absolute Auto 11.2 x10*3/uL (2.0-8.3); Neutrophils Percent Auto 82.2 % (45-73); Platelet Count 334 X10*3/uL (160-400); Red Blood Count 3.38 X10*6/uL (4.20-5.50); Red Cell Distribution Width 13.4 % (11.0-16.0); White Blood Count 13.7 X10*3/uL (4.8-10.8)
[2024-11-23 08:37] LABS: VBG Base Excess -3.4 mmol/L; VBG HCO3 26 mmol/L (22-26); VBG pCO2 73 mmHg; VBG pH 7.15 (7.32-7.43); VBG pO2 46 mmHg
[2024-11-23 08:38] LABS: Venous Blood Gas Refer to POC result
[2024-11-23] MEDS: 0.9 % Sodium Chloride Flush 3 ML SYRINGE IVFLUSH ×3 (09:08→22:54)
--- NOTE | 2024-11-23 10:01 | HO.POSTANES ---
Post Anesthesia Evaluation Post Anesthesia Evaluation Date of Service: 11/23/24 Vital Signs: Vital Signs Temp Pulse Pulse Resp BP BP Pulse Ox 11/23/24 08:00 11/23/24 08:00 97.3 F 97 18 116/72 99 11/23/24 07:50 11/23/24 07:50 118 H 100/38 L 11/23/24 07:00 98 23 H 157/71 H 92 11/23/24 06:24 22 H 11/23/24 05:46 98.3 F 100 161/80 H 96 11/23/24 04:55 78 22 H 146/64 H 98 11/23/24 03:55 82 21 H 143/62 H 98 11/23/24 03:06 22 H 11/23/24 03:00 95 20 147/68 H 97 11/23/24 02:00 75 20 131/61 99 11/23/24 01:00 75 20 136/65 99 11/23/24 00:00 98.2 F 73 19 134/62 96 11/22/24 23:30 23 H 11/22/24 23:00 71 20 132/58 L 100 11/22/24 22:23 71 129/58 L 11/22/24 22:14 100 O2 Del Method O2 Flow Rate FiO2 11/23/24 08:00 60 11/23/24 08:00 Mechanical Ventilation 60 11/23/24 07:50 60 11/23/24 07:50 11/23/24 07:00 Oxymask 1 11/23/24 06:24 11/23/24 05:46 Oxymask 1 11/23/24 04:55 Oxymask 1 11/23/24 03:55 Oxymask 1 11/23/24 03:06 11/23/24 03:00 Oxymask 1 11/23/24 02:00 Oxymask 1 11/23/24 01:00 Oxymask 1 11/23/24 00:00 Oxymask 1 11/22/24 23:30 11/22/24 23:00 Oxymask 1 11/22/24 22:23 11/22/24 22:14 Oxymask Anesthesia: General Endotracheal-GETA Comments: RETURNS TO or FOR HEMATOMA AT SITE
--- NOTE | 2024-11-23 10:29 | W.PM.OPN ---
Operative Note Operative Note Date of Service: 11/23/24 Narrative: Operative note by [facility] Preoperative diagnosis:1. Right neck hematoma Postoperative diagnosis: Same Procedure:1. Right neck exploration 2. Evacuation of hematoma Surgeon:Dae De Anda M.D. Clinical Quality Assurance Associate: Rachna valle Anesthesia: General Specimens: None Drains: None Estimated blood loss: 100 mL Indications: Pleasant 54-year-old female who underwent right carotid endarterectomy. Postprocedure develop left upper and lower extremity weakness. Subsequent to underwent in for exploration for occlusion. Postoperatively was placed on heparin. Developed a hematoma overnight and this morning had some questionable respiratory distress. Was subsequently intubated. Now presents for evacuation of hematoma. Consent was obtained from daughter. The patient has signed the informed consent after reviewing risks, complications, benefits, and alternatives previously discussed with the patient. The patient was given the opportunity to ask any additional questions or voice any concerns. All questions were answered to the patient's satisfaction. Procedure in detail: Patient was taken to the operating room and placed in a supine position and prepped and draped in sterile manner with ChloraPrep. Longitudinal incision was made along the anterior border of the sternocleidomastoid carried down through the subcutaneous fat and fascia this was through the previous incision.. Hemostasis was obtained with electrocautery. The platysma muscle was then divided. We then went into the hematoma. This was subsequently evacuated. We then explored down to the carotid. Common carotid internal carotid and external carotid were individually identified. We explored the entire length of the patch. No active bleeding sites were identified. We looked along the edges and borders no bleeding sites noted there as well. Wound was irrigated out copiously. Tisseel sealant was placed. We then closed the incision reapproximated deep layer with 2-0 Polysorb superficial layer with 3-0 poly Sorb and finally skin with a 4-0 Monocryl. Sterile dressing was applied. Patient was transferred to the ICU intubated and sedated. Patient's family who was in waiting room including daughter mother and uncle were all present. Had an extensive discussion about all the procedures performed and her overall status. This note is constructed using voice recognition software. While every effort has been made to ensure accuracy, systems qa analyst errors may have been included. Thank you for allowing me to participate in the care of your patient. Yours sincerely, Dae De Anda MD, FACS, R.P.V.I.
--- NOTE | 2024-11-23 10:34 | PM.NEUROCN ---
History of Present Illness Data of Consult Service Date: 11/23/24 Primary Care Provider: Hilda Butt MD [facility] Reason for consult: stroke This is a 54 Yr old woman with h/o hypertension, hyperlipidemia, non-ischemic cardiomyopathy, s/p pacemaker/defibrillator, COPD, prior breast carcinoma, and psychiatric comorbidities, and R carotid artery stenosis, admitted on 11/22 for elective R carotid artery endarterectomy, OR case reportedly uneventful, however, patient developed L hemiparesis in PACU, prompting CT non-contrast. CTA showed occlusion of right ICA 1.5 cm distal to bifurcation. She was taken back to OR in the evening. Carroll vito dobtunded with left facial droop and left hemiparesis. Currently intubated, on paralytics and Propofol PMFSH Past Medical History Medical History Hx of radiation therapy Habitual snoring Cough On beta yamini at home Pacemaker Cardiac resynchronization therapy defibrillator (GARNETT FIXER-D) in place (~06/2023) LBBB (left bundle branch block) NICM (nonischemic cardiomyopathy) Invasive ductal carcinoma of left breast (~02/2022) Anemia COPD (chronic obstructive pulmonary disease) Hypercholesteremia Bipolar 1 disorder Hypertension Family History Family History Maternal Aunt Lupus Mother Breast cancer Surgical History Surgical History History of cardiac defibrillator placement (~2022) History of cardiac cath (~2021) History of foot surgery (~2006) History of left breast biopsy (~2021) History of lumpectomy of left breast (~2021) History of hysterectomy (~2021) Social History Social History Household Members: None Housing: Apartment Are you a primary health care marketing manager to a significant other at home: No Do you presently have visiting nurse or other home services: 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 Meds Allergies Allergy/AdvReac Type Severity Reaction Status Date / Time lisinopril Allergy Cough Verified 11/01/24 15:46 ham Allergy hives Uncoded 11/01/24 15:46 Active Medications: Current Medications Albuterol Sulfate (Albuterol Sulfate (0.083%) 2.5 Mg/3 Ml Vial.Neb) 2.5 mg INHALE ONCE PRN PRN Reason: Shortness of Breath/Wheezing Famotidine (Famotidine/Pf 20 Mg/2 Ml Vial) 20 mg IVPUSH BID [facility] Heparin Sodium (Porcine) (Heparin Sodium,Porcine 5,000 Unit/Ml Vial) 3,000 unit 40 unit/kg (3000 unit) IVPUSH PROTOCOL BOLUS PRN; Protocol PRN Reason: 40 unit/kg - Heparin Protocol Heparin Sodium (Porcine) (Heparin Sodium,Porcine 5,000 Unit/Ml Vial) 6,000 unit 80 unit/kg (6000 unit) IVPUSH PROTOCOL BOLUS PRN; Protocol PRN Reason: 80 unit/kg - Heparin Protocol Sodium Chloride (Ns) 1,000 mls @ 80 mls/hr IVCONT .[id number] [facility] Last Admin: 11/23/24 03:10 Dose: 80 mls/hr Heparin Sodium/Sodium Chloride (Heparin Sodium,Porcine/1/2ns) 25,000 unit in 250 mls @ 0 mls/hr IVCONT .Q0M [facility]; Protocol Last Titration: 11/23/24 05:49 Dose: 0 units/kg/hr, 0 mls/hr Acetaminophen (Ofirmev) 1,000 mg in 100 mls @ 400 mls/hr IV Q6H PRN PRN Reason: Pain, Moderate(Pain Scale 4-6) Stop: 11/23/24 10:44 Propofol (Diprivan) 1,000 mg in 100 mls @ 0 mls/hr IVCONT .Q0M [facility]; Protocol Last Admin: 11/23/24 07:50 Dose: 30 mcg/kg/min, 14.08 mls/hr Norepinephrine Bitartrate (Levophed) 8 mg in 250 mls @ 0 mls/hr IVCONT .Q0M [facility]; Protocol Last Admin: 11/23/24 07:50 Dose: 0.05 mcg/kg/min, 7.33 mls/hr Morphine Sulfate (Morphine Sulfate 2 Mg/Ml Cartridge) 2 mg IVPUSH Q4H PRN; Protocol PRN Reason: Pain, Severe (Pain Scale 7-10) Last Admin: 11/23/24 06:24 Dose: 2 mg Naloxone HCl (Naloxone Hcl 0.4 Mg/Ml Vial) 0.04 mg IVPUSH Q5M PRN PRN Reason: Excessive sedation or RR < 8 Sodium Chloride (0.9 % Sodium Chloride Flush 3 Ml Syringe) 3 ml IVFLUSH [facility] Last Admin: 11/23/24 09:08 Dose: 3 ml Home Medications ?Medication ?Instructions ?Recorded ?Confirmed ?Last Taken ?Type atorvastatin 80 mg tablet 80 mg PO DAILY 07/30/22 11/22/24 11/22/24 History ferrous sulfate 325 mg (65 mg 325 mg PO DAILY 07/30/22 11/22/24 11/21/24 History iron) tablet (FeroSul) pantoprazole 40 mg tablet,delayed 40 mg PO DAILY@0630 07/30/22 11/22/24 11/21/24 History release cholecalciferol (vitamin D3) 50 50 mcg PO DAILY 10/30/22 11/22/24 11/21/24 History mcg (2,000 unit) capsule (Vitamin D3) montelukast 10 mg tablet 10 mg PO BEDTIME 11/15/24 11/22/24 11/21/24 History omega 7-lir-spu-fish oil 60 mg-90 1 cap PO DAILY 11/15/24 11/22/24 11/21/24 History mg-500 mg capsule sertraline 50 mg tablet 50 mg PO DAILY 11/15/24 11/22/24 Unknown History albuterol sulfate 90 mcg/actuation 2 inh inhalation Q6H PRN Shortness 11/22/24 11/22/24 Unknown History aerosol inhaler (Ventolin HFA) Of Breath Or Wheezing ascorbic acid (vitamin C) 250 mg 250 mg PO DAILY 11/22/24 11/22/24 11/21/24 History tablet aspirin 81 mg tablet,delayed 81 mg PO DAILY 11/22/24 11/22/24 11/21/24 History release cetirizine 10 mg tablet 10 mg PO DAILY PRN Allergy Symptoms 11/22/24 11/22/24 Unknown History Physical Exam Vital Signs: Vital Signs: Last Vital Signs Temp 97.3 F 11/23/24 08:00 Pulse 89 11/23/24 10:00 Resp 22 H 11/23/24 10:00 BP 154/73 H 11/23/24 10:00 Pulse Ox 98 11/23/24 10:00 O2 Del Method Mechanical Ventil ation 11/23/24 10:00 O2 Flow Rate 1 11/23/24 07:00 FiO2 60 11/23/24 10:00 Oxygen Flow Rate 2 11/22/24 22:14 BMI result Body Mass Index 34.8 Neuro: Other: The patient is on a ventilator her nose and her paralytic agents and propofol making a meaningful examination impossible. Results Labs 11/23/24 08:21 11/23/24 05:33 Labs: Short CBC 11/22/24 11/22/24 11/23/24 Range/Units 16:28 22:58 05:33 WBC 13.9 H 12.6 H 12.4 H (4.8-10.8) X10*3/uL Hgb 11.6 L 10.0 L 9.0 L (12.0-16.0) g/dl Hct 35.1 L 29.5 L 26.9 L (37.0-47.0) % Plt Count 282 260 267 (160-400) X10*3/uL 11/23/24 Range/Units 08:21 WBC 13.7 H (4.8-10.8) X10*3/uL Hgb 9.8 L (12.0-16.0) g/dl Hct 30.0 L (37.0-47.0) % Plt Count 334 D (160-400) X10*3/uL BMP 11/22/24 11/23/24 22:58 05:33 Sodium 140 140 Potassium 3.8 3.7 Chloride 112 H 110 H Carbon Dioxide 23 23 BUN 14 13 Creatinine 0.66 0.59 Calcium 8.1 L D 8.1 L Liver Function 11/22/24 Range/Units 22:58 Albumin 3.5 (3.5-5.0) g/dL Assessment and Plan (1) Stroke: Status: Acute Right hemisphere ischemic stroke due to occlusion of the right internal carotid artery. Postoperatively, following elective carotid endarterectomy Recommendation: She went back to the OR for reexploration of the carotid occlusion. Would recommend a noncontrast CT of the brainTo evaluate extent of ischemic changes. The patient cannot have an MRI because of pacemaker defibrillator; and a CTA of the neck to see if the carotid occlusion has been cleared. Procedures Date of Service Date of Service: 11/23/24
--- NOTE | 2024-11-23 11:40 | P.CONAN_ITS ---
HPI - Anesthesia Eval Consult details Narrative: 54 yo female patient. S/p Right carotid endarterectomy and re- exploration. Emergently intubated this morning for airway obstruction secondary to hematoma formation Right neck. For Right neck exploration and evacuation of hematoma. Intubated and ventilated PMF Active Problems Active Problems: All Active Problems Stroke (Acute) Dissection of right carotid artery (Acute) Carotid stenosis, right (Acute) Right cavernous carotid stenosis (Acute) Environmental allergies (Acute) Multiple pulmonary nodules (Acute) Pulmonary nodule (Acute) Pulsatile tinnitus of right ear (Acute) Bilateral carotid artery stenosis (Acute) Dyspnea on exertion (Acute) Lateral epicondylitis of right elbow (Acute) LBBB (left bundle branch block) (Acute) NICM (nonischemic cardiomyopathy) (Acute) Invasive ductal carcinoma of left breast (Chronic ~02/2022) Cardiac resynchronization therapy defibrillator (VOCATIONAL 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 CONSULTANT-D) in place (Acute ~06/2023) Hypertension (Acute) COPD (chronic obstructive pulmonary disease) (Acute) Past Medical History Medical History Hx of radiation therapy Habitual snoring Cough On beta yamini at home Pacemaker Cardiac resynchronization therapy defibrillator (VOCATIONAL 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 CONSULTANT-D) in place (~06/2023) LBBB (left bundle branch block) NICM (nonischemic cardiomyopathy) Invasive ductal carcinoma of left breast (~02/2022) Anemia COPD (chronic obstructive pulmonary disease) Hypercholesteremia Bipolar 1 disorder Hypertension Family History Family History Maternal Aunt Lupus Mother Breast cancer Family history of problems with anesthesia: No Surgical History Surgical History History of cardiac defibrillator placement (~2022) History of cardiac cath (~2021) History of foot surgery (~2006) History of left breast biopsy (~2021) History of lumpectomy of left breast (~2021) History of hysterectomy (~2021) History of Problems with Anesthesia: No Social History Social History Household Members: None Housing: Apartment Are you a primary primary care physician to a significant other at home: No Do you presently have visiting nurse or other home services: Yes (ENROLLMENT CLERK) Alcohol intake: never Patient Tobacco Use Status: Former Tobacco user Tobacco use type: Cigarette Use of substances other than those prescribed or required for medical reasons: No Currently Displaying Signs/Symptoms of Drug Intoxication Withdrawal: No Have you been hit, kicked, punched, or otherwise hurt by someone within the past year? 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 Meds Allergies Allergy/AdvReac Type Severity Reaction Status Date / Time lisinopril Allergy Cough Verified 11/01/24 15:46 ham Allergy hives Uncoded 11/01/24 15:46 Active Medications: Current Medications Albuterol Sulfate (Albuterol Sulfate (0.083%) 2.5 Mg/3 Ml Vial.Neb) 2.5 mg INHALE ONCE PRN PRN Reason: Shortness of Breath/Wheezing Famotidine (Famotidine/Pf 20 Mg/2 Ml Vial) 20 mg IVPUSH BID COUNTS INCLUDE 234 BEDS AT THE [facility] Heparin Sodium (Porcine) (Heparin Sodium,Porcine 5,000 Unit/Ml Vial) 3,000 unit 40 unit/kg (3000 unit) IVPUSH PROTOCOL BOLUS PRN; Protocol PRN Reason: 40 unit/kg - Heparin Protocol Heparin Sodium (Porcine) (Heparin Sodium,Porcine 5,000 Unit/Ml Vial) 6,000 unit 80 unit/kg (6000 unit) IVPUSH PROTOCOL BOLUS PRN; Protocol PRN Reason: 80 unit/kg - Heparin Protocol Sodium Chloride (Ns) 1,000 mls @ 80 mls/hr IVCONT .[id number] COUNTS INCLUDE 234 BEDS AT THE [facility] Last Admin: 11/23/24 03:10 Dose: 80 mls/hr Heparin Sodium/Sodium Chloride (Heparin Sodium,Porcine/1/2ns) 25,000 unit in 250 mls @ 0 mls/hr IVCONT .Q0M COUNTS INCLUDE 234 BEDS AT THE [facility]; Protocol Last Titration: 11/23/24 05:49 Dose: 0 units/kg/hr, 0 mls/hr Propofol (Diprivan) 1,000 mg in 100 mls @ 0 mls/hr IVCONT .Q0M COUNTS INCLUDE 234 BEDS AT THE [facility]; Protocol Last Admin: 11/23/24 07:50 Dose: 30 mcg/kg/min, 14.08 mls/hr Norepinephrine Bitartrate (Levophed) 8 mg in 250 mls @ 0 mls/hr IVCONT .Q0M COUNTS INCLUDE 234 BEDS AT THE [facility]; Protocol Last Admin: 11/23/24 07:50 Dose: 0.05 mcg/kg/min, 7.33 mls/hr Morphine Sulfate (Morphine Sulfate 2 Mg/Ml Cartridge) 2 mg IVPUSH Q4H PRN; Protocol PRN Reason: Pain, Severe (Pain Scale 7-10) Last Admin: 11/23/24 06:24 Dose: 2 mg Naloxone HCl (Naloxone Hcl 0.4 Mg/Ml Vial) 0.04 mg IVPUSH Q5M PRN PRN Reason: Excessive sedation or RR < 8 Sodium Chloride (0.9 % Sodium Chloride Flush 3 Ml Syringe) 3 ml IVFLUSH [facility] Last Admin: 11/23/24 09:08 Dose: 3 ml Home Medications ?Medication ?Instructions ?Recorded ?Confirmed ?Last Taken ?Type atorvastatin 80 mg tablet 80 mg PO DAILY 07/30/22 11/22/24 11/22/24 History ferrous sulfate 325 mg (65 mg 325 mg PO DAILY 07/30/22 11/22/24 11/21/24 History iron) tablet (FeroSul) pantoprazole 40 mg tablet,delayed 40 mg PO DAILY@0630 07/30/22 11/22/24 11/21/24 History release cholecalciferol (vitamin D3) 50 50 mcg PO DAILY 10/30/22 11/22/24 11/21/24 History mcg (2,000 unit) capsule (Vitamin D3) montelukast 10 mg tablet 10 mg PO BEDTIME 11/15/24 11/22/24 11/21/24 History omega 4-tqt-rgy-fish oil 60 mg-90 1 cap PO DAILY 11/15/24 11/22/24 11/21/24 History mg-500 mg capsule sertraline 50 mg tablet 50 mg PO DAILY 11/15/24 11/22/24 Unknown History albuterol sulfate 90 mcg/actuation 2 inh inhalation Q6H PRN Shortness 11/22/24 11/22/24 Unknown History aerosol inhaler (Ventolin HFA) Of Breath Or Wheezing ascorbic acid (vitamin C) 250 mg 250 mg PO DAILY 11/22/24 11/22/24 11/21/24 History tablet aspirin 81 mg tablet,delayed 81 mg PO DAILY 11/22/24 11/22/24 11/21/24 History release cetirizine 10 mg tablet 10 mg PO DAILY PRN Allergy Symptoms 11/22/24 11/22/24 Unknown History Exam Height,Weight and Vital Signs: Height 4 ft 11 in Weight 78.2 kg Last Vital Signs Temp 97.3 F 11/23/24 08:00 Pulse 85 11/23/24 11:00 Resp 30 H 11/23/24 11:00 BP 103/50 L 11/23/24 11:00 Pulse Ox 99 11/23/24 11:00 O2 Del Method Mechanical Ventilation 11/23/24 11:00 O2 Flow Rate 1 11/23/24 07:00 FiO2 60 11/23/24 11:00 Oxygen Flow Rate 2 11/22/24 22:14 Pertinent Lab Results Pertinent Lab Results: Laboratory Tests 11/15/24 11/22/24 11/22/24 10:50 06:38 16:28 WBC 5.9 13.9 H RBC 4.34 4.06 L Hgb 12.4 11.6 L Hct 36.3 L 35.1 L MCV 83.6 86.5 MCH 28.6 28.6 MCHC 34.2 33.0 RDW 12.8 13.1 Plt Count 304 282 MPV 8.7 L 8.8 L Immature Gran % (Auto) Neut % (Auto) Lymph % (Auto) [place] % (Auto) Eos % (Auto) Baso % (Auto) Lymph # (Auto) [place] # (Auto) Eos # (Auto) Baso # (Auto) Abs Immat Gran (auto) Absolute Neuts (auto) Absolute Nucleated RBC 0.000 0.000 Nucleated RBC % (auto) 0.0 0.0 PT 11.3 12.0 INR 1.0 1.0 APTT 28.3 26.4 aPTT Heparin Protocol VBG pH VBG pCO2 VBG pO2 VBG HCO3 VBG O2 Saturation VBG Base Excess Sodium 141 Potassium 3.7 Chloride 105 Carbon Dioxide 26 Anion Gap 14 BUN 20 H Creatinine 0.77 Estim Creat Clear Calc 74.4 Estimated GFR > 60 Random Glucose 112 Calcium 9.7 Phosphorus Magnesium Albumin Blood Type O Positive O Positive Antibody Screen NEGATIVE NEGATIVE Crossmatch See Detail 11/22/24 11/23/24 11/23/24 22:58 05:33 08:21 WBC 12.6 H 12.4 H 13.7 H RBC 3.46 L 3.14 L 3.38 L Hgb 10.0 L 9.0 L 9.8 L Hct 29.5 L 26.9 L 30.0 L MCV 85.3 85.7 88.8 MCH 28.9 28.7 29.0 MCHC 33.9 33.5 32.7 RDW 13.1 13.2 13.4 Plt Count 260 267 334 D MPV 8.5 L 8.5 L 8.7 L Immature Gran % (Auto) 0.5 H 0.6 H 0.8 H Neut % (Auto) 88.0 H 83.1 H 82.2 H Lymph % (Auto) 6.4 L 9.6 L 10.8 L [place] % (Auto) 4.9 6.5 6.1 Eos % (Auto) 0.0 0.0 0.0 Baso % (Auto) 0.2 0.2 0.1 Lymph # (Auto) 0.8 L 1.2 1.5 [place] # (Auto) 0.6 0.8 0.8 Eos # (Auto) 0.0 0.0 0.0 Baso # (Auto) 0.0 0.0 0.0 Abs Immat Gran (auto) 0.06 H 0.08 H 0.11 H Absolute Neuts (auto) 11.1 H 10.3 H 11.2 H Absolute Nucleated RBC 0.000 0.000 0.000 Nucleated RBC % (auto) 0.0 0.0 0.0 PT 12.7 H INR 1.1 APTT aPTT Heparin Protocol 69.7 56.8 VBG pH VBG pCO2 VBG pO2 VBG HCO3 VBG O2 Saturation VBG Base Excess Sodium 140 140 Potassium 3.8 3.7 Chloride 112 H 110 H Carbon Dioxide 23 23 Anion Gap 9 L 11 L BUN 14 13 Creatinine 0.66 0.59 Estim Creat Clear Calc 88.1 100.6 Estimated GFR > 60 > 60 Random Glucose 143 H 139 H Calcium 8.1 L D 8.1 L Phosphorus 3.6 Magnesium 1.8 Albumin 3.5 Blood Type Antibody Screen Crossmatch 11/23/24 08:30 WBC RBC Hgb Hct MCV MCH MCHC RDW Plt Count MPV Immature Gran % (Auto) Neut % (Auto) Lymph % (Auto) [place] % (Auto) Eos % (Auto) Baso % (Auto) Lymph # (Auto) [place] # (Auto) Eos # (Auto) Baso # (Auto) Abs Immat Gran (auto) Absolute Neuts (auto) Absolute Nucleated RBC Nucleated RBC % (auto) PT INR APTT aPTT Heparin Protocol VBG pH 7.15 L* VBG pCO2 73 VBG pO2 46 VBG HCO3 26 VBG O2 Saturation 57.0 VBG Base Excess -3.4 Sodium Potassium Chloride Carbon Dioxide Anion Gap BUN Creatinine Estim Creat Clear Calc Estimated GFR Random Glucose Calcium Phosphorus Magnesium Albumin Blood Type Antibody Screen Crossmatch Narrative Narrative: Patient intubated and ventilatd Airway Heart: RRR Lungs: CTAB Assessment and Plan Assessment Anesthesia Assessment: Anesthesia Plan Discussed and Chart Reviewed Final Anesthetic Review Family History of Problems with Anesthesia: No History of Problems with Anesthesia: No NPO: Yes ASA Class: IV and Emergency Final Preanesthetic Review: No Changes in Pt Med Stat, Meds/Allgs Chart Reviewed, Consent Obtained/Reviewed and Anes Risks/Benef Reviewed Patient Risk: High Procedure Risk: Intermediate Assessment/Block/Sedation in SS: Assess/Block/Sedation-SS Anesthetic Plan Anesthetic Plan: GA Disposition: Standard PACU
[2024-11-23 12:02] LABS: Hematocrit 25.9 % (37.0-47.0); Hemoglobin 8.6 g/dl (12.0-16.0); Mean Corpuscular HGB Conc 33.2 g/dl (31.0-35.0); Mean Corpuscular Volume 87.2 fL (80.0-98.0); Mean Platelet Volume 8.4 fL (9.4-12.3); Platelet Count 243 X10*3/uL (160-400); Red Blood Count 2.97 X10*6/uL (4.20-5.50); Red Cell Distribution Width 13.3 % (11.0-16.0); White Blood Count 12.5 X10*3/uL (4.8-10.8)
[2024-11-23 12:17] LABS: Anion Gap 10 (12-20); Blood Urea Nitrogen 14 mg/dL (9-16); Calcium 8.2 mg/dL (8.4-10.2); Carbon Dioxide 25 mmol/L (22-29); Chloride 111 mmol/L (96-108); Estimated Glomerular Filt Rate > 60; Glucose Random 121 mg/dL (60-115); Sodium 142 mmol/L (135-145)
[2024-11-23] MEDS: Famotidine/PF 20 MG/2 ML VIAL IVPUSH ×2 (12:36→20:31)
[2024-11-23] MEDS: propofoL 1,000 MG/100 ML VIAL 9.38 MG IVCONT (13:37)
--- NOTE | 2024-11-23 14:10 | MHC.CM.PN ---
Pt required intubation following carotid endartectomy d/t airway compression from hematoma: unable to participate in CM assessment: information obtained from EMR and limited info from dtr who states pt was independent prior to surgery. CM to revisit once pt is able to converse. D/C plan ongoing
[2024-11-23] MEDS: Chlorhexidine Gluc Oral Rinse 15 ML MOUTHWASH BUCCAL ×2 (15:09→20:30)
--- NOTE | 2024-11-23 16:13 | MHC.STROKE ---
Pt evaluated by Dr. Rosario today. Required intubation this am, pt is obviously NPO at this time. Will continue to assist as needed.
[2024-11-23 19:39] LABS: MANUAL DIFF FLAG NO
[2024-11-23 19:41] LABS: Basophils Percent Auto 0.1 % (0-2); Hematocrit 23.2 % (37.0-47.0); Hemoglobin 7.7 g/dl (12.0-16.0); Imm Gran Abs Auto 0.08 X10*3/uL (0.00-0.03); Imm Gran Pct Auto 0.9 % (0.0-0.4); Lymphocytes Absolute Auto 1.4 X10*3/uL (1.2-4.9); Lymphocytes Percent Auto 15.6 % (20-40); Mean Corpuscular HGB Conc 33.2 g/dl (31.0-35.0); Mean Corpuscular Hemoglobin 28.9 pg (27.0-33.0); Mean Corpuscular Volume 87.2 fL (80.0-98.0); Mean Platelet Volume 8.7 fL (9.4-12.3); Monocytes Absolute Auto 0.6 X10*3/uL (0.1-1.2); Monocytes Percent Auto 7.4 % (2-11); Neutrophils Absolute Auto 6.6 x10*3/uL (2.0-8.3); Platelet Count 210 X10*3/uL (160-400); Red Blood Count 2.66 X10*6/uL (4.20-5.50); Red Cell Distribution Width 13.4 % (11.0-16.0); White Blood Count 8.7 X10*3/uL (4.8-10.8)
[2024-11-23 19:42] LABS: ABG Base Excess 7.5 mmol/L; ABG HCO3 29 mmol/L (22-26); ABG pCO2 32 mmHg (32-45); ABG pH 7.57 (7.35-7.45); ABG pO2 71 mmHg (83-108)
[2024-11-23 19:56] LABS: Alanine Aminotransferase 15 U/L (0-31); Albumin Level 3.2 g/dL (3.5-5.0); Alkaline Phosphatase 81 U/L (39-117); Anion Gap 9 (12-20); Aspartate Amino Transferase 22 U/L (5-31); Bilirubin Total 0.4 mg/dL (0.0-1.0); Blood Urea Nitrogen 12 mg/dL (9-16); Calcium 8.4 mg/dL (8.4-10.2); Carbon Dioxide 27 mmol/L (22-29); Chloride 110 mmol/L (96-108); Creatinine Clr Calc Pharmacy 95.8; Estimated Glomerular Filt Rate > 60; Glucose Random 107 mg/dL (60-115); Magnesium 2.1 mg/dL (1.6-2.6); Phosphorus 1.8 mg/dL (2.7-4.5); Potassium 3.7 mmol/L (3.3-5.1); Sodium 142 mmol/L (135-145); Total Protein 5.6 g/dL (6.5-8.0)
[2024-11-23] MEDS: Albumin Human 25 % 100 ML IV (20:31)
[2024-11-23] MEDS: fentaNYL citrate/PF 100 MCG/2 ML VIAL 50 MCG IVPUSH (20:36)
[2024-11-23] MEDS: Potassium Phosphate/NS 15 MMOL/250 ML PLAST..BAG 62.5 MMOL IV (20:39)
[2024-11-23] MEDS: propofoL 1,000 MG/100 ML VIAL 18.77 MG IVCONT (20:47)
[2024-11-23] MEDS: Albuterol Sulfate (0.083%) 2.5 MG/3 ML VIAL.NEB INHALE (20:53)
[2024-11-23] MEDS: fentaNYL citrate/PF 100 MCG/2 ML VIAL IVPUSH (21:06)
[2024-11-23] MEDS: Labetalol HCL 100 MG/20 ML VIAL IVPUSH (21:07)
[2024-11-23 22:01] LABS: ABG Refer to POC result
[2024-11-23] MEDS: fentaNYL citrate/NS 1,000 MCG/100 ML PLAST..BAG 5 MCG IVCONT (22:15)
[2024-11-24] VITALS (44 sets, daily range): BP systolic 111–161; BP diastolic 46–79; PULSE 65–120; RESP 16–28; TEMP 35–37.6; O2SAT 92–98; BMI 34.8
[2024-11-24] MEDS: propofoL 1,000 MG/100 ML VIAL 18.77 MG IVCONT (00:36)
[2024-11-24] MEDS: Albumin Human 25 % 100 ML IV ×3 (01:19→13:25)
[2024-11-24 05:30] LABS: ABG Base Excess 5.8 mmol/L; ABG HCO3 29 mmol/L (22-26); ABG pCO2 40 mmHg (32-45); ABG pH 7.47 (7.35-7.45); ABG pO2 152 mmHg (83-108)
[2024-11-24 05:33] LABS: Basophils Percent Auto 0.3 % (0-2); Eosinophils Percent Auto 0.2 % (0-4); Hematocrit 22.1 % (37.0-47.0); Hemoglobin 7.3 g/dl (12.0-16.0); Imm Gran Abs Auto 0.09 X10*3/uL (0.00-0.03); Imm Gran Pct Auto 1.5 % (0.0-0.4); Lymphocytes Absolute Auto 1.3 X10*3/uL (1.2-4.9); Lymphocytes Percent Auto 21.1 % (20-40); MANUAL DIFF FLAG NO; Mean Corpuscular Hemoglobin 29.1 pg (27.0-33.0); Mean Platelet Volume 8.8 fL (9.4-12.3); Monocytes Absolute Auto 0.5 X10*3/uL (0.1-1.2); Neutrophils Absolute Auto 4.2 x10*3/uL (2.0-8.3); Neutrophils Percent Auto 68.9 % (45-73); Platelet Count 167 X10*3/uL (160-400); Red Blood Count 2.51 X10*6/uL (4.20-5.50); Red Cell Distribution Width 13.2 % (11.0-16.0); White Blood Count 6.2 X10*3/uL (4.8-10.8)
[2024-11-24 05:35] LABS: ABG Refer to POC result
[2024-11-24 05:47] LABS: Anion Gap 12 (12-20); Blood Urea Nitrogen 13 mg/dL (9-16); Calcium 8.6 mg/dL (8.4-10.2); Carbon Dioxide 25 mmol/L (22-29); Chloride 109 mmol/L (96-108); Creatinine Clr Calc Pharmacy 94.3; Estimated Glomerular Filt Rate > 60; Glucose Random 105 mg/dL (60-115); Magnesium 2.1 mg/dL (1.6-2.6); Phosphorus 2.5 mg/dL (2.7-4.5); Potassium 3.6 mmol/L (3.3-5.1); Sodium 142 mmol/L (135-145)
[2024-11-24] MEDS: propofoL 1,000 MG/100 ML VIAL 14.08 MG IVCONT ×3 (05:56→18:39)
[2024-11-24] MEDS: 0.9 % Sodium Chloride Flush 3 ML SYRINGE IVFLUSH ×2 (07:38→15:43)
[2024-11-24] MEDS: Potassium Phosphate/NS 15 MMOL/250 ML PLAST..BAG 62.5 MMOL IV (08:06)
--- NOTE | 2024-11-24 08:11 | PM.CCPN ---
Subjective Subjective Date of Service: 11/24/24 Interval History: no significant overnight events; given 2 pRBC Critical Care Time (minutes): 60 Physical Exam Vital Signs: Vital Signs: Last Vital Signs Temp 99.7 F 11/24/24 08:00 Pulse 92 11/24/24 08:00 Resp 22 H 11/24/24 08:00 BP 143/63 H 11/24/24 08:00 Pulse Ox 98 11/24/24 08:00 O2 Del Method Mechanical Ventil ation 11/24/24 08:00 O2 Flow Rate 1 11/23/24 07:00 FiO2 11/24/24 08:00 Oxygen Flow Rate 30 11/23/24 12:46 BMI result Body Mass Index 34.8 Const: Other: intubated, sedated; some appreciable grimacing to noxious stimulus; appreciable obesity General: no acute distress HEENT: Other: appreciable bandage R neck, clean, dry, intact; some improvement neck edema, erythema; appreciable persistent tongue edema Eyes: General: appearance normal, both eyes and all related structures Neck: Other: as described above Chest: Chest palpation & inspection: normal inspection of the chest Resp: Other: no appreciable rales, rhonchi, wheezing Effort & Inspection: normal respiratory effort Cardio: Rate: regular rate Rhythm: regular rhythm GI: Inspection: Yes normal to inspection, No Abdominal wall edema and No distended Palpation (GI): Soft to palpation, not firm, nontender, no guarding and not rigid Skin: General skin exam: no rashes or lesions noted Neuro: Other: persistent flaccid L upper and lower extremities; 5/5 strength R upper and lower extremities Extrem: Other: 1+ pitting edema to bilateral shins General: Yes normal to inspection, Yes full ROM and Yes capillary refill normal Psych: Other: unable to assess Objective Data Labs 11/24/24 05:22 11/24/24 05:22 Labs: Laboratory Results - last 24 hr 11/22/24 11/23/24 11/23/24 16:28 08:21 08:30 WBC 13.7 H RBC 3.38 L Hgb 9.8 L Hct 30.0 L MCV 88.8 MCH 29.0 MCHC 32.7 RDW 13.4 Plt Count 334 D MPV 8.7 L Immature Gran % (Auto) 0.8 H Neut % (Auto) 82.2 H Lymph % (Auto) 10.8 L [place] % (Auto) 6.1 Eos % (Auto) 0.0 Baso % (Auto) 0.1 Lymph # (Auto) 1.5 [place] # (Auto) 0.8 Eos # (Auto) 0.0 Baso # (Auto) 0.0 Abs Immat Gran (auto) 0.11 H Absolute Neuts (auto) 11.2 H Absolute Nucleated RBC 0.000 Nucleated RBC % (auto) 0.0 O2 Saturation ABG pH at Pt Temp ABG pCO2 at Pt Temp ABG pO2 at Pt Temp ABG HCO3 ABG Base Excess (Actual) VBG pH 7.15 L* VBG pCO2 73 VBG pO2 46 VBG HCO3 26 VBG O2 Saturation 57.0 VBG Base Excess -3.4 Sodium Potassium Chloride Carbon Dioxide Anion Gap BUN Creatinine Estim Creat Clear Calc Estimated GFR Random Glucose Calcium Phosphorus Magnesium Total Bilirubin AST ALT Alkaline Phosphatase Total Protein Albumin Blood Type O Positive Antibody Screen NEGATIVE Crossmatch See Detail 11/23/24 11/23/24 11/23/24 11:44 19:24 19:31 WBC 12.5 H 8.7 RBC 2.97 L 2.66 L Hgb 8.6 L 7.7 L Hct 25.9 L 23.2 L MCV 87.2 87.2 MCH 29.0 28.9 MCHC 33.2 33.2 RDW 13.3 13.4 Plt Count 243 D 210 MPV 8.4 L 8.7 L Immature Gran % (Auto) 0.9 H Neut % (Auto) 76.0 H Lymph % (Auto) 15.6 L [place] % (Auto) 7.4 Eos % (Auto) 0.0 Baso % (Auto) 0.1 Lymph # (Auto) 1.4 [place] # (Auto) 0.6 Eos # (Auto) 0.0 Baso # (Auto) 0.0 Abs Immat Gran (auto) 0.08 H Absolute Neuts (auto) 6.6 Absolute Nucleated RBC 0.000 0.000 Nucleated RBC % (auto) 0.0 0.0 O2 Saturation 98.0 ABG pH at Pt Temp 7.57 H ABG pCO2 at Pt Temp 32 ABG pO2 at Pt Temp 71 L ABG HCO3 29 H ABG Base Excess (Actual) 7.5 VBG pH VBG pCO2 VBG pO2 VBG HCO3 VBG O2 Saturation VBG Base Excess Sodium 142 142 Potassium 4.0 3.7 Chloride 111 H 110 H Carbon Dioxide 25 27 Anion Gap 10 L 9 L BUN 14 12 Creatinine 0.66 0.62 Estim Creat Clear Calc 90.0 95.8 Estimated GFR > 60 > 60 Random Glucose 121 H 107 Calcium 8.2 L 8.4 Phosphorus 1.8 L Magnesium 2.1 Total Bilirubin 0.4 AST 22 ALT 15 Alkaline Phosphatase 81 Total Protein 5.6 L Albumin 3.2 L Blood Type Antibody Screen Crossmatch 11/24/24 11/24/24 05:18 05:22 WBC 6.2 RBC 2.51 L Hgb 7.3 L Hct 22.1 L MCV 88.0 MCH 29.1 MCHC 33.0 RDW 13.2 Plt Count 167 MPV 8.8 L Immature Gran % (Auto) 1.5 H Neut % (Auto) 68.9 Lymph % (Auto) 21.1 [place] % (Auto) 8.0 Eos % (Auto) 0.2 Baso % (Auto) 0.3 Lymph # (Auto) 1.3 [place] # (Auto) 0.5 Eos # (Auto) 0.0 Baso # (Auto) 0.0 Abs Immat Gran (auto) 0.09 H Absolute Neuts (auto) 4.2 Absolute Nucleated RBC 0.000 Nucleated RBC % (auto) 0.0 O2 Saturation 100.0 ABG pH at Pt Temp 7.47 H ABG pCO2 at Pt Temp 40 ABG pO2 at Pt Temp 152 H ABG HCO3 29 H ABG Base Excess (Actual) 5.8 VBG pH VBG pCO2 VBG pO2 VBG HCO3 VBG O2 Saturation VBG Base Excess Sodium 142 Potassium 3.6 Chloride 109 H Carbon Dioxide 25 Anion Gap 12 BUN 13 Creatinine 0.63 Estim Creat Clear Calc 94.3 Estimated GFR > 60 Random Glucose 105 Calcium 8.6 Phosphorus 2.5 L Magnesium 2.1 Total Bilirubin AST ALT Alkaline Phosphatase Total Protein Albumin Blood Type Antibody Screen Crossmatch Progress Note: A&P Assessment and plan (1) Stroke: Status: Acute (2) Dissection of right carotid artery: Status: Acute (3) Carotid stenosis, right: Status: Acute Plan Patient is a 54 Y F w/ hypertension, hyperlipidemia, non-ischemic cardiomyopathy s/p pacemaker/defibrillator, COPD, prior breast carcinoma, and psychiatric comorbidities, and R carotid artery stenosis, presenting on 11/22 for elective R carotid artery endarterectomy; case c/b R ICA occlusion d/t dissection and expanding hematoma compromising airway, intubated 11/23 N: R ICA occlusion d/t dissection, c/b expressive aphasia and L hema-paresis, q4h neuro checks, MRI when able, appreciate neurology recommendations; sedated w/ propofol, fentanyl gtt, wean as tolerated CV: R carotid artery stenosis s/p endarterectomy 11/21, c/b R ICA occlusion d/t dissection and expanding hematoma R: R carotid artery stenosis s/p endarterectomy 11/21, c/b R ICA occlusion d/t dissection and expanding hematoma compromising airway, intubated 11/23, wean as tolerated GI: no acute issues; NPO : no acute issues H: no acute issues; avoid chemical DVT prophylaxis golden-procedurally, mechanical devices ID: no acute issues E: no acute issues P: no acute issues Quality Stroke Does the patient have a stroke diagnosis?: Yes Reason for No Anti-thrombotic by Day Two: Contraindicated VTE Prior VTE?: No VTE Risk Level:: Medical - moderate - high VTE Device Contraindication: N/A - Device Ordered VTE Drug Contraindication: Treatment Not Tolerated
[2024-11-24] MEDS: Famotidine/PF 20 MG/2 ML VIAL IVPUSH ×2 (08:12→21:21)
[2024-11-24] MEDS: Chlorhexidine Gluc Oral Rinse 15 ML MOUTHWASH BUCCAL ×3 (08:12→21:20)
--- NOTE | 2024-11-24 08:16 | HO.POSTANES ---
Post Anesthesia Evaluation Post Anesthesia Evaluation Date of Service: 11/24/24 Vital Signs: Vital Signs Temp Pulse Pulse Resp BP BP Pulse Ox 11/24/24 08:00 11/24/24 08:00 99.7 F 92 22 H 143/63 H 98 11/24/24 07:00 92 16 123/57 L 94 11/24/24 06:00 91 16 134/62 94 11/24/24 05:03 11/24/24 05:00 88 16 142/66 H 98 11/24/24 04:00 89 16 115/54 L 96 11/24/24 04:00 96 11/24/24 03:52 93 116/54 L 11/24/24 03:00 97 23 H 118/57 L 95 11/24/24 02:00 99 19 138/67 96 11/24/24 01:10 98.2 F 98 17 161/79 H 11/24/24 01:00 107 H 19 144/70 H 92 11/24/24 00:57 11/24/24 00:00 98.2 F 100 16 125/64 98 11/24/24 00:00 98 11/24/24 00:00 100 122/62 11/23/24 23:21 97.2 F 103 H 16 133/66 11/23/24 23:00 102 H 17 127/59 L 98 11/23/24 22:56 98.2 F 104 H 17 134/63 11/23/24 21:54 111 H 18 137/64 97 11/23/24 20:57 106 H 18 11/23/24 20:55 101 H 17 145/70 H 98 11/23/24 20:42 O2 Del Method FiO2 11/24/24 08:00 11/24/24 08:00 Mechanical Ventilation 11/24/24 07:00 Mechanical Ventilation 11/24/24 06:00 Mechanical Ventilation 11/24/24 05:03 11/24/24 05:00 Mechanical Ventilation 11/24/24 04:00 Mechanical Ventilation 11/24/24 04:00 11/24/24 03:52 11/24/24 03:00 Mechanical Ventilation 11/24/24 02:00 Mechanical Ventilation 11/24/24 01:10 11/24/24 01:00 Mechanical Ventilation 11/24/24 00:57 11/24/24 00:00 Mechanical Ventilation 11/24/24 00:00 30 11/24/24 00:00 11/23/24 23:21 11/23/24 23:00 Mechanical Ventilation 11/23/24 22:56 11/23/24 21:54 Mechanical Ventilation 11/23/24 20:57 11/23/24 20:55 Mechanical Ventilation 11/23/24 20:42 30 Anesthesia: General Endotracheal-GETA Mental Status: Sedated Pain Control: Satisfactory Nausea/Vomiting: None Hydration: Adequate Anesthesia-Related Issues: No Anes. Related Issues Comments: Pt remains intubated and sedated.
[2024-11-24] MEDS: Furosemide 20 MG/2 ML VIAL 10 MG IVPUSH (08:24)
--- NOTE | 2024-11-24 08:52 | PC.RT ---
Cuff leak test performed this am. ETT cuff deflated and pt auscaltated at the neck and throat area with very little sound noted. Pt was a diff airway and currently has a 6.0ETT.
--- NOTE | 2024-11-24 09:40 | MHC.CLN ---
PT MAY REQUIRE TF FOR NUTRITION SUPPORT R/T PROLONGED NPO STATUS PT IS INTUBATED AND SEDATED CURRENTLY NPO IF TF NEEDED; RECOMMEND PROMOTE TF AT MAX GOAL RATE 40ML/HR TO PROVIDE 960KCALS (1332KCALS WITH SEDATION; 25KCALS/KG), 60G PROTEIN (1.1G/KG), 805ML FREE WATER FROM FLUSHES MONITOR TOLERANCE AND RESIDUALS SEE ALSO FULL CLINICAL NUTRITION ASSESSMENT
[2024-11-24] MEDS: methylPREDNISolone Sod Succ 125 MG/2 ML VIAL 60 MG IVPUSH ×3 (09:46→21:21)
--- NOTE | 2024-11-24 11:19 | P.PNVS_ITS ---
Subjective Subjective Date of Service: 11/24/24 Interval history: Renita remains stable from a vascular standpoint this morning. She remains intubated but is not currently on pressors. The carotid incision site remains stable. Her H/H dropped and she was given 2u pRBCs. Physical Exam Vital Signs: Vital Signs: Last Vital Signs Temp 98.4 F 11/24/24 09:49 Pulse 93 11/24/24 10:00 Resp 16 11/24/24 10:00 BP 137/62 11/24/24 10:00 Pulse Ox 96 11/24/24 10:00 O2 Del Method Mechanical Ventil ation 11/24/24 10:00 O2 Flow Rate 1 11/23/24 07:00 FiO2 25 11/24/24 10:00 Oxygen Flow Rate 30 11/23/24 12:46 BMI result Body Mass Index 34.8 Const: Other: pt remains intubated General: no acute distress Neck: Other: Right carotid incision site: bandage intact, no bleeding noted. No increased swelling noted around the incision site. Swelling noted in the right lower jaw, slightly increased from yesterday Resp: Other: On ventilator Auscultation: clear to auscultation bilaterally Cardio: Rate: regular rate Rhythm: regular rhythm Heart sounds: S1 normal heart sound present and S2 normal heart sound present Bruits: no abdominal aortic bruits, no carotid bruits, no femoral bruits and no renal bruits GI: Palpation (GI): No Abdominal aortic bruit present Progress Note: A&P Assessment and plan (1) Carotid stenosis, right: Status: Acute Assessment and Plan: Renita remains stable from a vascular standpoint. Her incision site is C/D/I. There is no hematoma noted in the area of the incision. There is no bleeding/discharge noted on the dressing. She does continue to have some swelli ng in the area of her right lower jaw, only slightly increased from yesterday. She continues to remain intubated. She was also given 2u pRBCs due to a dropping H/H. Her Hgb this morning was 7.3 (down from 7.7) and she will be given another unit. We will continue to monitor. If there are any questions or concerns, please do not hesitate to reach out to us. Time Spent With Patient Time: Total time managing care of this patient today ____ minutes. Procedures Date of Service Date of Service: 11/24/24 Quality Stroke Does the patient have a stroke diagnosis?: Yes Reason for No Anti-thrombotic by Day Two: Contraindicated VTE Prior VTE?: No VTE Risk Level:: Medical - moderate - high VTE Device Contraindication: N/A - Device Ordered VTE Drug Contraindication: Treatment Not Tolerated
[2024-11-24 12:06] LABS: Glucose, Whole Blood 110 mg/dL (60-115)
[2024-11-24] MEDS: fentaNYL citrate/NS 1,000 MCG/100 ML PLAST..BAG 5 MCG IVCONT (12:33)
[2024-11-24] MEDS: HYDROmorphone HCl 0.5 MG/0.5 ML SYRINGE IV (13:23)
--- NOTE | 2024-11-24 15:22 | MHC.CM.PN ---
Pt remains intubated in ICU following a complication from carotid endartectomy: No plans to extubate at this time. Pt initially from home - independent: CM to follow for finalization of d/c needs
[2024-11-24 19:39] LABS: MANUAL DIFF FLAG NO
[2024-11-24 19:42] LABS: Basophils Percent Auto 0.1 % (0-2); Hematocrit 24.2 % (37.0-47.0); Hemoglobin 8.2 g/dl (12.0-16.0); Imm Gran Abs Auto 0.16 X10*3/uL (0.00-0.03); Lymphocytes Absolute Auto 0.5 X10*3/uL (1.2-4.9); Lymphocytes Percent Auto 6.1 % (20-40); Mean Corpuscular HGB Conc 33.9 g/dl (31.0-35.0); Mean Corpuscular Hemoglobin 28.8 pg (27.0-33.0); Mean Corpuscular Volume 84.9 fL (80.0-98.0); Mean Platelet Volume 8.7 fL (9.4-12.3); Monocytes Absolute Auto 0.2 X10*3/uL (0.1-1.2); Monocytes Percent Auto 2.3 % (2-11); Neutrophils Absolute Auto 7.1 x10*3/uL (2.0-8.3); Neutrophils Percent Auto 89.5 % (45-73); Platelet Count 161 X10*3/uL (160-400); Red Blood Count 2.85 X10*6/uL (4.20-5.50); Red Cell Distribution Width 13.9 % (11.0-16.0)
[2024-11-24 19:58] LABS: Albumin Level 4.5 g/dL (3.5-5.0); Anion Gap 11 (12-20); Blood Urea Nitrogen 12 mg/dL (9-16); Calcium 8.6 mg/dL (8.4-10.2); Carbon Dioxide 26 mmol/L (22-29); Chloride 107 mmol/L (96-108); Creatinine Clr Calc Pharmacy 104.2; Estimated Glomerular Filt Rate > 60; Glucose Random 125 mg/dL (60-115); Magnesium 2.3 mg/dL (1.6-2.6); Phosphorus 2.8 mg/dL (2.7-4.5); Potassium 3.7 mmol/L (3.3-5.1); Sodium 140 mmol/L (135-145)
[2024-11-25] VITALS (34 sets, daily range): BP systolic 104–148; BP diastolic 39–67; PULSE 62–88; RESP 16–22; TEMP 34.5–37; O2SAT 90–95; BMI 34.8
[2024-11-25] MEDS: propofoL 1,000 MG/100 ML VIAL 18.77 MG IVCONT ×4 (00:03→23:48)
[2024-11-25] MEDS: methylPREDNISolone Sod Succ 125 MG/2 ML VIAL 60 MG IVPUSH (02:26)
[2024-11-25] MEDS: fentaNYL citrate/NS 1,000 MCG/100 ML PLAST..BAG 5 MCG IVCONT (04:11)
[2024-11-25 05:38] LABS: ABG Base Excess 2.3 mmol/L; ABG HCO3 26 mmol/L (22-26); ABG pCO2 38 mmHg (32-45); ABG pH 7.44 (7.35-7.45); ABG pO2 74 mmHg (83-108)
[2024-11-25 05:39] LABS: ABG Refer to POC result
[2024-11-25 05:43] LABS: MANUAL DIFF FLAG NO
[2024-11-25 05:44] LABS: Hematocrit 23.9 % (37.0-47.0); Hemoglobin 8.3 g/dl (12.0-16.0); Imm Gran Abs Auto 0.19 X10*3/uL (0.00-0.03); Imm Gran Pct Auto 2.4 % (0.0-0.4); Lymphocytes Absolute Auto 0.6 X10*3/uL (1.2-4.9); Lymphocytes Percent Auto 7.7 % (20-40); Mean Corpuscular HGB Conc 34.7 g/dl (31.0-35.0); Mean Corpuscular Hemoglobin 29.3 pg (27.0-33.0); Mean Corpuscular Volume 84.5 fL (80.0-98.0); Mean Platelet Volume 8.9 fL (9.4-12.3); Monocytes Absolute Auto 0.2 X10*3/uL (0.1-1.2); Monocytes Percent Auto 2.6 % (2-11); Neutrophils Percent Auto 87.3 % (45-73); Platelet Count 157 X10*3/uL (160-400); Red Blood Count 2.83 X10*6/uL (4.20-5.50); Red Cell Distribution Width 13.9 % (11.0-16.0); White Blood Count 8.1 X10*3/uL (4.8-10.8)
[2024-11-25 05:58] LABS: Anion Gap 14 (12-20); Blood Urea Nitrogen 19 mg/dL (9-16); Calcium 9.5 mg/dL (8.4-10.2); Carbon Dioxide 24 mmol/L (22-29); Chloride 108 mmol/L (96-108); Creatinine Clr Calc Pharmacy 92.8; Estimated Glomerular Filt Rate > 60; Glucose Random 128 mg/dL (60-115); Magnesium 2.4 mg/dL (1.6-2.6); Phosphorus 3.2 mg/dL (2.7-4.5); Potassium 3.8 mmol/L (3.3-5.1); Sodium 142 mmol/L (135-145)
--- NOTE | 2024-11-25 08:05 | P.PNCC_ITS ---
Subjective Subjective Date of Service: 11/25/24 Interval History: no significant overnight events; of note, no appreciable cuff leak 11/24 AM and 11/25 AM despite 6-0 ETT, steroids, and diuretics Critical Care Time (minutes): 60 Physical Exam 2 Vital Signs: Vital Signs: Last Vital Signs Temp 98.6 F 11/25/24 03:58 Pulse 62 11/25/24 05:56 Resp 17 11/25/24 05:56 BP 124/55 L 11/25/24 05:56 Pulse Ox 90 L 11/25/24 05:56 O2 Del Method Mechanical Ventil ation 11/25/24 05:56 O2 Flow Rate 1 11/23/24 07:00 FiO2 11/25/24 07:49 Oxygen Flow Rate 11/23/24 12:46 BMI result Body Mass Index 34.8 Const: Other: intubated, sedated; withdraws R upper extremity to noxious stimulus; no appreciable movements L upper and lower extremities General: no acute distress and well developed HEENT: Other: appreciable tongue edema, persistent; some improvement circumferential neck edema; bandage R neck clean, dry, intact Eyes: General: appearance normal, both eyes and all related structures Neck: Other: as described above Chest: Chest palpation & inspection: normal inspection of the chest Resp: Other: no appreciable rales, rhonchi, wheezing Effort & Inspection: normal respiratory effort Cardio: Rate: regular rate Rhythm: regular rhythm GI: Inspection: Yes normal to inspection, No Abdominal wall edema and No distended Palpation (GI): Soft to palpation, not firm, nontender, no guarding and not rigid Skin: General skin exam: no rashes or lesions noted Neuro: Other: as described above Extrem: Other: trace pitting edema to bilateral shins General: Yes normal to inspection and Yes capillary refill normal Psych: Other: unable to assess Objective Data Labs 11/25/24 05:28 11/25/24 05:28 Labs: Laboratory Results - last 24 hr 11/22/24 11/24/24 11/24/24 16:28 12:03 19:34 WBC 8.0 RBC 2.85 L Hgb 8.2 L Hct 24.2 L MCV 84.9 MCH 28.8 MCHC 33.9 RDW 13.9 Plt Count 161 MPV 8.7 L Immature Gran % (Auto) 2.0 H Neut % (Auto) 89.5 H Lymph % (Auto) 6.[address] [place] % (Auto) 2.3 Eos % (Auto) 0.0 Baso % (Auto) 0.1 Lymph # (Auto) 0.[address] [place] # (Auto) 0.2 Eos # (Auto) 0.0 Baso # (Auto) 0.0 Abs Immat Gran (auto) 0.16 H Absolute Neuts (auto) 7.1 Absolute Nucleated RBC 0.000 Nucleated RBC % (auto) 0.0 O2 Saturation ABG pH at Pt Temp ABG pCO2 at Pt Temp ABG pO2 at Pt Temp ABG HCO3 ABG Base Excess (Actual) Sodium 140 Potassium 3.7 Chloride 107 Carbon Dioxide 26 Anion Gap 11 L BUN 12 Creatinine 0.57 Estim Creat Clear Calc 104.2 Estimated GFR > 60 POC Glucose 110 Random Glucose 125 H Calcium 8.6 Phosphorus 2.8 Magnesium 2.3 Albumin 4.5 Blood Type O Positive Antibody Screen NEGATIVE Crossmatch See Detail 11/25/24 05:28 WBC 8.1 RBC 2.83 L Hgb 8.3 L Hct 23.9 L MCV 84.5 MCH 29.3 MCHC 34.7 RDW 13.9 Plt Count 157 L MPV 8.9 L Immature Gran % (Auto) 2.4 H Neut % (Auto) 87.3 H Lymph % (Auto) 7.[address] [place] % (Auto) 2.6 Eos % (Auto) 0.0 Baso % (Auto) 0.0 Lymph # (Auto) 0.[address] [place] # (Auto) 0.2 Eos # (Auto) 0.0 Baso # (Auto) 0.0 Abs Immat Gran (auto) 0.19 H Absolute Neuts (auto) 7.0 Absolute Nucleated RBC 0.000 Nucleated RBC % (auto) 0.0 O2 Saturation 96.0 ABG pH at Pt Temp 7.44 ABG pCO2 at Pt Temp 38 ABG pO2 at Pt Temp 74 L ABG HCO3 26 ABG Base Excess (Actual) 2.3 Sodium 142 Potassium 3.8 Chloride 108 Carbon Dioxide 24 Anion Gap 14 BUN 19 H Creatinine 0.64 Estim Creat Clear Calc 92.8 Estimated GFR > 60 POC Glucose Random Glucose 128 H Calcium 9.5 D Phosphorus 3.2 Magnesium 2.4 Albumin Blood Type Antibody Screen Crossmatch Progress Note: A&P Assessment and plan (1) Laryngeal edema: Status: Acute (2) Dissection of right carotid artery: Status: Acute (3) Carotid stenosis, right: Status: Acute Plan Patient is a 54 Y F w/ hypertension, hyperlipidemia, non-ischemic cardiomyopathy s/p pacemaker/defibrillator, COPD, prior breast carcinoma, and psychiatric comorbidities, and R carotid artery stenosis, presenting on 11/22 for elective R carotid artery endarterectomy; case c/b R ICA occlusion d/t dissection and expanding hematoma compromising airway, intubated 11/23 N: R ICA occlusion d/t dissection, c/b expressive aphasia and L hema-paresis, q4h neuro checks, MRI when able, appreciate neurology recommendations; sedated w/ propofol, fentanyl gtt, wean as tolerated CV: R carotid artery stenosis s/p endarterectomy 11/21, c/b R ICA occlusion d/t dissection and expanding hematoma s/p evacuation 11/23 R: R carotid artery stenosis s/p endarterectomy 11/21, c/b R ICA occlusion d/t dissection and expanding hematoma compromising airway, intubated 11/23, wean as tolerated GI: no acute issues; NPO : no acute issues; to monitor renal indices, electrolytes closely; diuresis as tolerated H: no acute issues; avoid chemical DVT prophylaxis golden-procedurally, mechanical devices ID: no acute issues E: no acute issues; to monitor hypo-/hyper-glycemia in setting of steroids P: no acute issues Quality Stroke Does the patient have a stroke diagnosis?: Yes Reason for No Anti-thrombotic by Day Two: Contraindicated VTE Prior VTE?: No VTE Risk Level:: Medical - moderate - high VTE Device Contraindication: N/A - Device Ordered VTE Drug Contraindication: Treatment Not Tolerated
[2024-11-25] MEDS: propofoL 1,000 MG/100 ML VIAL 23.46 MG IVCONT ×2 (09:49→14:30)
[2024-11-25] MEDS: 0.9 % Sodium Chloride Flush 3 ML SYRINGE IVFLUSH ×3 (09:49→23:50)
[2024-11-25] MEDS: Chlorhexidine Gluc Oral Rinse 15 ML MOUTHWASH BUCCAL ×3 (09:49→20:19)
[2024-11-25] MEDS: Furosemide 20 MG/2 ML VIAL 10 MG IVPUSH ×2 (09:49→17:50)
[2024-11-25] MEDS: Famotidine/PF 20 MG/2 ML VIAL IVPUSH ×2 (09:49→20:19)
--- NOTE | 2024-11-25 09:52 | MHC.CLN ---
F/U DISCUSSED AT ROUNDS WITH PT REMAINS INTUBATED AND SEDATED CURRENTLY NPO RECOMMEND PROMOTE TF AT MAX GOAL RATE 40ML/HR WITH 240ML FREE WATER FLUSHES Q 8 HRS TO PROVIDE 960KCALS (1579KCALS WITH SEDATION; 29KCALS/KG), 60G PROTEIN (1.1G/KG), 1525ML TOTAL FREE WATER FROM FORMULA AND FLUSHES (28ML/KG) MONITOR TOLERANCE AND RESIDUALS
--- NOTE | 2024-11-25 09:54 | HO.VASCPN ---
Subjective Subjective Date of Service: 11/25/24 Interval history: Renita remains stable. Per nursing, there were no acute events overnight. There was no cuff leak when checked this morning. The pt continues on steroids and diuretics. Nursing states her BP and HR are stable. Physical Exam Vital Signs: Vital Signs: Last Vital Signs Temp 98.6 F 11/25/24 03:58 Pulse 81 11/25/24 09:00 Resp 18 11/25/24 09:00 BP 140/63 H 11/25/24 09:00 Pulse Ox 90 L 11/25/24 09:00 O2 Del Method Mechanical Ventil ation 11/25/24 08:00 O2 Flow Rate 1 11/23/24 07:00 FiO2 30 11/25/24 09:00 Oxygen Flow Rate 30 11/23/24 12:46 BMI result Body Mass Index 34.8 Const: General: comfortable and no acute distress HEENT: Ears: hearing grossly normal bilaterally Neck: Other: Right carotid incision site: C/D/I. No bleeding or drainage noted on dressing. Decreased swelling in the jawline. Resp: Effort & Inspection: normal respiratory effort Auscultation: clear to auscultation bilaterally Cardio: Rate: regular rate Rhythm: regular rhythm Heart sounds: S1 normal heart sound present and S2 normal heart sound present Bruits: no abdominal aortic bruits, no carotid bruits, no femoral bruits and no renal bruits GI: Palpation (GI): No Abdominal aortic bruit present Extrem: Other: Bilateral lower extremities: trace peripheral edema noted from the knees to the toes. Progress Note: A&P Assessment and plan (1) Dissection of right carotid artery: Status: Acute Assessment and Plan: Renita remains stable from a vascular standpoint. The incision site is intact without any swelling or bleeding noted. Decreased swelling noted in the jaw area. There was no cuff leak this morning despite the pt having a 6.0ETT with steroids and diuretics. The sewer and cutter finger buff material is ordering a neck CT. We will continue to monitor. If there are any questions or concerns, please do not hesitate to reach out. Time Spent With Patient Time: Total time managing care of this patient today ____ minutes. Procedures Date of Service Date of Service: 11/25/24 Quality Stroke Does the patient have a stroke diagnosis?: Yes Reason for No Anti-thrombotic by Day Two: Contraindicated VTE Prior VTE?: No VTE Risk Level:: Medical - moderate - high VTE Device Contraindication: N/A - Device Ordered VTE Drug Contraindication: Treatment Not Tolerated
--- NOTE | 2024-11-25 12:47 | MHC.CM.PN ---
Pt will not be extubated today per discussion at rounds: Tube feedings to start and repeat neck CT. CM to follow for ? STR needs vs home w/possible VNA. Referrals to follow once pt can demonstrate functional ability.
[2024-11-25] MEDS: iohexoL 350 MG/ML 100 ML INFUS..BTL IV (13:19)
[2024-11-25 19:04] LABS: MANUAL DIFF FLAG NO
[2024-11-25 19:10] LABS: Basophils Percent Auto 0.1 % (0-2); Hematocrit 27.9 % (37.0-47.0); Hemoglobin 9.4 g/dl (12.0-16.0); Imm Gran Abs Auto 0.29 X10*3/uL (0.00-0.03); Imm Gran Pct Auto 2.1 % (0.0-0.4); Lymphocytes Absolute Auto 1.7 X10*3/uL (1.2-4.9); Mean Corpuscular HGB Conc 33.7 g/dl (31.0-35.0); Mean Corpuscular Hemoglobin 28.7 pg (27.0-33.0); Mean Corpuscular Volume 85.3 fL (80.0-98.0); Mean Platelet Volume 8.9 fL (9.4-12.3); Monocytes Percent Auto 6.9 % (2-11); Neutrophils Absolute Auto 10.9 x10*3/uL (2.0-8.3); Neutrophils Percent Auto 78.9 % (45-73); Platelet Count 234 X10*3/uL (160-400); Red Blood Count 3.27 X10*6/uL (4.20-5.50); White Blood Count 13.8 X10*3/uL (4.8-10.8)
[2024-11-25 19:36] LABS: Albumin Level 4.8 g/dL (3.5-5.0); Anion Gap 15 (12-20); Blood Urea Nitrogen 25 mg/dL (9-16); Calcium 10.2 mg/dL (8.4-10.2); Carbon Dioxide 27 mmol/L (22-29); Chloride 104 mmol/L (96-108); Creatinine Clr Calc Pharmacy 84.8; Estimated Glomerular Filt Rate > 60; Glucose Random 105 mg/dL (60-115); Magnesium 2.6 mg/dL (1.6-2.6); Phosphorus 2.5 mg/dL (2.7-4.5); Potassium 3.6 mmol/L (3.3-5.1); Sodium 141 mmol/L (135-145)
[2024-11-25] MEDS: fentaNYL citrate/NS 1,000 MCG/100 ML PLAST..BAG 7.5 MCG IVCONT (20:14)
[2024-11-25] MEDS: Potassium Phosphate/NS 15 MMOL/250 ML PLAST..BAG 62.5 MMOL IV (20:19)
[2024-11-26] VITALS (41 sets, daily range): BP systolic 103–167; BP diastolic 46–72; PULSE 62–89; RESP 13–71; TEMP 34.5–37.3; O2SAT 84–96
[2024-11-26 05:04] LABS: ABG Base Excess 7.5 mmol/L; ABG HCO3 31 mmol/L (22-26); ABG pCO2 42 mmHg (32-45); ABG pH 7.47 (7.35-7.45); ABG pO2 117 mmHg (83-108)
[2024-11-26 05:05] LABS: ABG Refer to POC result
[2024-11-26 05:10] LABS: MANUAL DIFF FLAG NO
[2024-11-26 05:12] LABS: Basophils Percent Auto 0.1 % (0-2); Eosinophils Percent Auto 0.3 % (0-4); Hematocrit 23.8 % (37.0-47.0); Hemoglobin 8.1 g/dl (12.0-16.0); Imm Gran Abs Auto 0.08 X10*3/uL (0.00-0.03); Imm Gran Pct Auto 1.1 % (0.0-0.4); Lymphocytes Absolute Auto 1.4 X10*3/uL (1.2-4.9); Lymphocytes Percent Auto 19.1 % (20-40); Mean Corpuscular Volume 85.3 fL (80.0-98.0); Mean Platelet Volume 8.9 fL (9.4-12.3); Monocytes Absolute Auto 0.5 X10*3/uL (0.1-1.2); Monocytes Percent Auto 6.2 % (2-11); Neutrophils Absolute Auto 5.4 x10*3/uL (2.0-8.3); Neutrophils Percent Auto 73.2 % (45-73); Platelet Count 183 X10*3/uL (160-400); Red Blood Count 2.79 X10*6/uL (4.20-5.50); Red Cell Distribution Width 13.9 % (11.0-16.0); White Blood Count 7.4 X10*3/uL (4.8-10.8)
[2024-11-26] MEDS: propofoL 1,000 MG/100 ML VIAL 14.08 MG IVCONT (05:23)
[2024-11-26 05:29] LABS: Anion Gap 11 (12-20); Blood Urea Nitrogen 28 mg/dL (9-16); Carbon Dioxide 27 mmol/L (22-29); Chloride 109 mmol/L (96-108); Estimated Glomerular Filt Rate > 60; Glucose Random 120 mg/dL (60-115); Magnesium 2.3 mg/dL (1.6-2.6); Phosphorus 3.1 mg/dL (2.7-4.5); Potassium 3.4 mmol/L (3.3-5.1); Sodium 144 mmol/L (135-145)
--- NOTE | 2024-11-26 08:15 | P.PNCC_ITS ---
Subjective Subjective Date of Service: 11/26/24 Interval History: no significant overnight events Critical Care Time (minutes): 60 Physical Exam 2 Vital Signs: Vital Signs: Last Vital Signs Temp 98.7 F 11/26/24 04:00 Pulse 70 11/26/24 07:00 Resp 16 11/26/24 07:00 BP 119/50 L 11/26/24 07:47 Pulse Ox 93 11/26/24 07:00 O2 Del Method Mechanical Ventil ation 11/26/24 07:00 O2 Flow Rate 1 11/23/24 07:00 FiO2 30 11/26/24 07:00 Oxygen Flow Rate 30 11/23/24 12:46 BMI result Body Mass Index 34.8 Const: Other: intubated, sedated; opens eyes spontaneously, follows commands; flaccid L upper and lower extremities HEENT: Other: interval worsening tongue swelling; stable circumferential neck swelling; bandage R lateral neck clean, dry, intact Eyes: General: appearance normal, both eyes and all related structures Neck: Other: as described above Chest: Chest palpation & inspection: normal inspection of the chest Resp: Other: no appreciable rales, rhonchi, wheezing Effort & Inspection: normal respiratory effort Cardio: Rate: regular rate Rhythm: regular rhythm GI: Inspection: Yes normal to inspection, No Abdominal wall edema and No distended Palpation (GI): Soft to palpation, not firm, nontender, no guarding and not rigid Skin: General skin exam: no rashes or lesions noted Neuro: Other: as described above Extrem: Other: appreciable 1+ pitting edema to bilateral shins General: Yes normal to inspection, Yes full ROM and Yes capillary refill normal Psych: Appearance: grossly normal Objective Data Labs 11/26/24 04:58 11/26/24 04:58 Labs: Laboratory Results - last 24 hr 11/25/24 11/26/24 11/26/24 18:58 04:53 04:58 WBC 13.8 H 7.4 RBC 3.27 L 2.79 L Hgb 9.4 L 8.1 L Hct 27.9 L 23.8 L MCV 85.3 85.3 MCH 28.7 29.0 MCHC 33.7 34.0 RDW 14.0 13.9 Plt Count 234 D 183 MPV 8.9 L 8.9 L Immature Gran % (Auto) 2.1 H 1.1 H Neut % (Auto) 78.9 H 73.2 H Lymph % (Auto) 12.0 L 19.1 L [place] % (Auto) 6.9 6.2 Eos % (Auto) 0.0 0.3 Baso % (Auto) 0.1 0.1 Lymph # (Auto) 1.7 1.4 [place] # (Auto) 1.0 0.5 Eos # (Auto) 0.0 0.0 Baso # (Auto) 0.0 0.0 Abs Immat Gran (auto) 0.29 H 0.08 H Absolute Neuts (auto) 10.9 H 5.4 Absolute Nucleated RBC 0.000 0.000 Nucleated RBC % (auto) 0.0 0.0 O2 Saturation 100.0 ABG pH at Pt Temp 7.47 H ABG pCO2 at Pt Temp 42 ABG pO2 at Pt Temp 117 H ABG HCO3 31 H ABG Base Excess (Actual) 7.5 Sodium 141 144 Potassium 3.6 3.4 Chloride 104 109 H Carbon Dioxide 27 27 Anion Gap 15 11 L BUN 25 H 28 H Creatinine 0.70 0.66 Estim Creat Clear Calc 84.8 90.0 Estimated GFR > 60 > 60 Random Glucose 105 120 H Calcium 10.2 D 9.0 D Phosphorus 2.5 L 3.1 Magnesium 2.6 2.3 Albumin 4.8 Progress Note: A&P Assessment and plan (1) Laryngeal edema: Status: Acute (2) Stroke: Status: Acute (3) Dissection of right carotid artery: Status: Acute (4) Carotid stenosis, right: Status: Acute Plan Patient is a 54 Y F w/ hypertension, hyperlipidemia, non-ischemic cardiomyopathy s/p pacemaker/defibrillator, COPD, prior breast carcinoma, and psychiatric comorbidities, and R carotid artery stenosis, presenting on 11/22 for elective R carotid artery endarterectomy; case c/b R ICA occlusion d/t dissection and expanding hematoma compromising airway, intubated 11/23 N: R ICA occlusion d/t dissection, c/b expressive aphasia and L hema-paresis, q4h neuro checks, MRI when able, appreciate neurology recommendations; sedated w/ propofol, fentanyl gtt, wean as tolerated CV: R carotid artery stenosis s/p endarterectomy 11/21, c/b R ICA occlusion d/t dissection and expanding hematoma s/p evacuation 11/23 R: R carotid artery stenosis s/p endarterectomy 11/21, c/b R ICA occlusion d/t dissection and expanding hematoma compromising airway, intubated 11/23, wean as tolerated; of note, CT soft tissue N 11/25 demonstrating significant mass effect on hypopharynx/larynx, precluding extubation; to repeat CT soft tissue N 11/28 GI: no acute issues; NPO : no acute issues; to monitor renal indices, electrolytes closely; diuresis as tolerated H: no acute issues; avoid chemical DVT prophylaxis golden-procedurally, mechanical devices ID: no acute issues E: no acute issues; to monitor hypo-/hyper-glycemia in setting of steroids P: no acute issues Quality Stroke Does the patient have a stroke diagnosis?: Yes Reason for No Anti-thrombotic by Day Two: Contraindicated VTE Prior VTE?: No VTE Risk Level:: Medical - moderate - high VTE Device Contraindication: N/A - Device Ordered VTE Drug Contraindication: Treatment Not Tolerated
[2024-11-26] MEDS: 0.9 % Sodium Chloride Flush 3 ML SYRINGE IVFLUSH ×2 (08:45→15:06)
[2024-11-26] MEDS: Chlorhexidine Gluc Oral Rinse 15 ML MOUTHWASH BUCCAL ×3 (08:45→20:46)
[2024-11-26] MEDS: Potassium Chloride Packet 20 MEQ PACKET 40 MEQ OG-TUBE (08:46)
[2024-11-26] MEDS: Famotidine/PF 20 MG/2 ML VIAL IVPUSH ×2 (08:47→20:49)
[2024-11-26] MEDS: Furosemide 20 MG/2 ML VIAL IVPUSH ×2 (08:47→17:06)
--- NOTE | 2024-11-26 09:19 | MHC.CLN ---
F/U PT REMAINS INTUBATED AND SEDATED PT RECEIVING PROMOTE TF AT MAX GOAL RATE 40ML/HR WITH 240ML FREE WATER FLUSHES Q 8 HRS PROVIDES 960KCALS (1456KCALS WITH SEDATION; 27KCALS/KG), 60G PROTEIN (1.1G/KG), 1525ML TOTAL FREE WATER FROM FORMULA AND FLUSHES (28ML/KG) PT TOLERATING TF PER NSG CONTINUE TO MONITOR TOLERANCE AND RESIDUALS
[2024-11-26] MEDS: fentaNYL citrate/NS 1,000 MCG/100 ML PLAST..BAG 7.5 MCG IVCONT (09:31)
[2024-11-26] MEDS: methylPREDNISolone Sod Succ 125 MG/2 ML VIAL 60 MG IVPUSH ×3 (09:34→20:47)
[2024-11-26] MEDS: propofoL 1,000 MG/100 ML VIAL 18.77 MG IVCONT ×3 (11:13→20:44)
--- NOTE | 2024-11-26 14:08 | HO.VASCPN ---
Subjective Subjective Date of Service: 11/26/24 Interval history: Renita remains stable from a vascular standpoint. She had a soft tissue neck CT yesterday. She will continue to stay intubated through the weekend with reassessment and repeat CT on Friday. Her VS remain stable. Labwork remains stable. Nursing states she is able to communicate using her right hand; her left upper and lower extremities remain flaccid. Physical Exam Vital Signs: Vital Signs: Last Vital Signs Temp 99.2 F 11/26/24 12:00 Pulse 72 11/26/24 13:00 Resp 16 11/26/24 13:00 BP 120/57 L 11/26/24 13:00 Pulse Ox 91 L 11/26/24 13:00 O2 Del Method Mechanical Ventil ation 11/26/24 13:00 O2 Flow Rate 1 11/23/24 07:00 FiO2 30 11/26/24 13:00 Oxygen Flow Rate 30 11/23/24 12:46 BMI result Body Mass Index 34.8 Const: General: comfortable and no acute distress Orientation/consciousness: patient oriented x3 HEENT: Ears: hearing grossly normal bilaterally Neck: Other: Carotid incision site C/D/I. No drainage or bleeding on bandage noted. Swelling continues on jawline, stable. Resp: Effort & Inspection: normal respiratory effort and able to speak in complete sentences Auscultation: clear to auscultation bilaterally Cardio: Rate: regular rate Rhythm: regular rhythm Heart sounds: S1 normal heart sound present and S2 normal heart sound present Bruits: no abdominal aortic bruits, no carotid bruits, no femoral bruits and no renal bruits GI: Palpation (GI): No Abdominal aortic bruit present Neuro: General: patient oriented x3 Cranial nerves: Yes CN's II-XII intact bilaterally Extrem: Other: Bilateral lower extremities: trace/+1 peripheral edema noted. Palpable DP pulses. Progress Note: A&P Assessment and plan (1) Dissection of right carotid artery: Status: Acute Assessment and Plan: Renita remains stable from a vascular standpoint. The right carotid incision site remains C/D/I with no bleeding or drainage noted on the bandage. She will remain intubated until Friday when a repeat CT will be performed. Her VS and labwork remains stable. She has been able to communicate with her right hand. We will continue to monitor. If there are any questions or concerns, please do not hesitate to reach out to us. Time Spent With Patient Time: Total time managing care of this patient today ____ minutes. Procedures Date of Service Date of Service: 11/26/24 Quality Stroke Does the patient have a stroke diagnosis?: Yes Reason for No Anti-thrombotic by Day Two: Contraindicated VTE Prior VTE?: No VTE Risk Level:: Medical - moderate - high VTE Device Contraindication: N/A - Device Ordered VTE Drug Contraindication: Treatment Not Tolerated
--- NOTE | 2024-11-26 14:31 | MHC.CM.PN ---
Pt remains intubated in ICU: no ability to extubate based on neck CT showing soft tissue swelling: Repeat imaging for 2/2. CM to follow for finalization of d/c planning needs: pt may need services or placement
[2024-11-26 18:22] LABS: MANUAL DIFF FLAG NO
[2024-11-26 18:23] LABS: Basophils Percent Auto 0.2 % (0-2); Hematocrit 28.1 % (37.0-47.0); Hemoglobin 9.8 g/dl (12.0-16.0); Imm Gran Abs Auto 0.25 X10*3/uL (0.00-0.03); Imm Gran Pct Auto 2.5 % (0.0-0.4); Lymphocytes Absolute Auto 0.7 X10*3/uL (1.2-4.9); Lymphocytes Percent Auto 6.7 % (20-40); Mean Corpuscular HGB Conc 34.9 g/dl (31.0-35.0); Mean Corpuscular Hemoglobin 29.3 pg (27.0-33.0); Mean Corpuscular Volume 83.9 fL (80.0-98.0); Monocytes Absolute Auto 0.2 X10*3/uL (0.1-1.2); Monocytes Percent Auto 2.2 % (2-11); Neutrophils Absolute Auto 8.8 x10*3/uL (2.0-8.3); Neutrophils Percent Auto 88.4 % (45-73); Platelet Count 264 X10*3/uL (160-400); Red Blood Count 3.35 X10*6/uL (4.20-5.50); Red Cell Distribution Width 13.5 % (11.0-16.0); White Blood Count 9.9 X10*3/uL (4.8-10.8)
[2024-11-26 18:44] LABS: Anion Gap 17 (12-20); Blood Urea Nitrogen 24 mg/dL (9-16); Calcium 10.1 mg/dL (8.4-10.2); Carbon Dioxide 26 mmol/L (22-29); Chloride 104 mmol/L (96-108); Creatinine Clr Calc Pharmacy 83.6; Estimated Glomerular Filt Rate > 60; Glucose Random 150 mg/dL (60-115); Magnesium 2.4 mg/dL (1.6-2.6); Phosphorus 4.5 mg/dL (2.7-4.5); Potassium 4.5 mmol/L (3.3-5.1); Sodium 142 mmol/L (135-145)
[2024-11-26] MEDS: Midazolam HCl 2 MG/2 ML VIAL 1 MG IVPUSH (20:31)
[2024-11-26] MEDS: fentaNYL citrate/NS 1,000 MCG/100 ML PLAST..BAG 10 MCG IVCONT (22:21)
--- NOTE | 2024-11-26 22:43 | HO.SKINPHOTO ---
Location: Tongue Category: Mucosal ulcer Stage: Length: Width: Depth: cm
[2024-11-27] VITALS (40 sets, daily range): BP systolic 112–149; BP diastolic 50–69; PULSE 60–95; RESP 16–26; TEMP 34.6–37.2; O2SAT 90–97; BMI 35.6
[2024-11-27] MEDS: 0.9 % Sodium Chloride Flush 3 ML SYRINGE IVFLUSH ×4 (00:06→19:57)
[2024-11-27] MEDS: propofoL 1,000 MG/100 ML VIAL 18.77 MG IVCONT ×4 (00:49→20:35)
[2024-11-27] MEDS: methylPREDNISolone Sod Succ 125 MG/2 ML VIAL 60 MG IVPUSH ×4 (02:46→19:57)
[2024-11-27 05:37] LABS: MANUAL DIFF FLAG NO
[2024-11-27 05:44] LABS: ABG Base Excess 9.3 mmol/L; ABG HCO3 32 mmol/L (22-26); ABG pCO2 39 mmHg (32-45); ABG pH 7.52 (7.35-7.45); ABG pO2 66 mmHg (83-108)
[2024-11-27 05:46] LABS: Basophils Percent Auto 0.3 % (0-2); Hematocrit 27.1 % (37.0-47.0); Hemoglobin 9.2 g/dl (12.0-16.0); Imm Gran Abs Auto 0.29 X10*3/uL (0.00-0.03); Imm Gran Pct Auto 2.8 % (0.0-0.4); Lymphocytes Absolute Auto 0.6 X10*3/uL (1.2-4.9); Lymphocytes Percent Auto 6.1 % (20-40); Mean Corpuscular HGB Conc 33.9 g/dl (31.0-35.0); Mean Corpuscular Hemoglobin 28.7 pg (27.0-33.0); Mean Corpuscular Volume 84.4 fL (80.0-98.0); Mean Platelet Volume 9.1 fL (9.4-12.3); Monocytes Absolute Auto 0.4 X10*3/uL (0.1-1.2); Monocytes Percent Auto 3.5 % (2-11); Neutrophils Absolute Auto 9.1 x10*3/uL (2.0-8.3); Neutrophils Percent Auto 87.3 % (45-73); Platelet Count 265 X10*3/uL (160-400); Red Blood Count 3.21 X10*6/uL (4.20-5.50); Red Cell Distribution Width 13.2 % (11.0-16.0); White Blood Count 10.4 X10*3/uL (4.8-10.8)
[2024-11-27 05:47] LABS: ABG Refer to POC result
[2024-11-27 05:54] LABS: Anion Gap 14 (12-20); Blood Urea Nitrogen 31 mg/dL (9-16); Calcium 9.7 mg/dL (8.4-10.2); Carbon Dioxide 27 mmol/L (22-29); Chloride 104 mmol/L (96-108); Creatinine Clr Calc Pharmacy 88.5; Estimated Glomerular Filt Rate > 60; Glucose Random 165 mg/dL (60-115); Magnesium 2.5 mg/dL (1.6-2.6); Phosphorus 3.6 mg/dL (2.7-4.5); Potassium 4.3 mmol/L (3.3-5.1); Sodium 141 mmol/L (135-145)
[2024-11-27] MEDS: Chlorhexidine Gluc Oral Rinse 15 ML MOUTHWASH BUCCAL ×3 (07:40→19:57)
[2024-11-27] MEDS: Furosemide 20 MG/2 ML VIAL IVPUSH ×2 (07:40→17:23)
[2024-11-27] MEDS: Famotidine/PF 20 MG/2 ML VIAL IVPUSH ×2 (07:40→19:57)
--- NOTE | 2024-11-27 08:16 | PM.CCPN ---
Subjective Subjective Date of Service: 11/27/24 Interval History: no significant overnight events Critical Care Time (minutes): 60 Physical Exam Vital Signs: Vital Signs: Last Vital Signs Temp 98.6 F 11/27/24 04:00 Pulse 62 11/27/24 07:00 Resp 16 11/27/24 07:00 BP 125/56 L 11/27/24 07:00 Pulse Ox 94 11/27/24 07:00 O2 Del Method Mechanical Ventil ation 11/27/24 07:00 O2 Flow Rate 60 11/26/24 21:00 FiO2 45 11/27/24 07:41 Oxygen Flow Rate 30 11/23/24 12:46 BMI result Body Mass Index 35.6 Const: Other: intubated, sedated General: no acute distress HEENT: Other: some improvement tongue edema; appreciable ulceration L lateral tongue; some improvement circumferential neck edema; R lateral neck bandage clean, dry, intact Eyes: General: appearance normal, both eyes and all related structures Neck: Other: as described above Chest: Chest palpation & inspection: normal inspection of the chest Resp: Other: no appreciable rales, rhonchi, wheezing Effort & Inspection: normal respiratory effort Cardio: Rate: regular rate Rhythm: regular rhythm GI: Inspection: Yes normal to inspection, No Abdominal wall edema and No distended Skin: General skin exam: no rashes or lesions noted Neuro: Other: unable to assess Extrem: Other: 1+ pitting edema to bilateral shins General: Yes normal to inspection, Yes full ROM and Yes capillary refill normal Psych: Other: unable to assess Objective Data Labs 11/27/24 05:35 11/27/24 05:35 Labs: Laboratory Results - last 24 hr 11/26/24 11/27/24 11/27/24 18:07 05:33 05:35 WBC 9.9 10.4 RBC 3.35 L D 3.21 L Hgb 9.8 L D 9.2 L Hct 28.1 L 27.1 L MCV 83.9 84.4 MCH 29.3 28.7 MCHC 34.9 33.9 RDW 13.5 13.2 Plt Count 264 D 265 MPV 9.0 L 9.1 L Immature Gran % (Auto) 2.5 H 2.8 H Neut % (Auto) 88.4 H 87.3 H Lymph % (Auto) 6.7 L 6.1 L [place] % (Auto) 2.2 3.5 Eos % (Auto) 0.0 0.0 Baso % (Auto) 0.2 0.3 Lymph # (Auto) 0.7 L 0.6 L [place] # (Auto) 0.2 0.4 Eos # (Auto) 0.0 0.0 Baso # (Auto) 0.0 0.0 Abs Immat Gran (auto) 0.25 H 0.29 H Absolute Neuts (auto) 8.8 H 9.1 H Absolute Nucleated RBC 0.000 0.000 Nucleated RBC % (auto) 0.0 0.0 O2 Saturation 92.0 ABG pH at Pt Temp 7.52 H ABG pCO2 at Pt Temp 39 ABG pO2 at Pt Temp 66 L ABG HCO3 32 H ABG Base Excess (Actual) 9.3 Sodium 142 141 Potassium 4.5 D 4.3 Chloride 104 104 Carbon Dioxide 26 27 Anion Gap 17 14 BUN 24 H 31 H Creatinine 0.71 0.68 Estim Creat Clear Calc 83.6 88.5 Estimated GFR > 60 > 60 Random Glucose 150 H 165 H Calcium 10.1 D 9.7 Phosphorus 4.5 3.6 Magnesium 2.4 2.5 Progress Note: A&P Assessment and plan (1) Stroke: Status: Acute (2) Dissection of right carotid artery: Status: Acute (3) Carotid stenosis, right: Status: Acute (4) Laryngeal edema: Status: Acute Plan Patient is a 54 Y F w/ hypertension, hyperlipidemia, non-ischemic cardiomyopathy s/p pacemaker/defibrillator, COPD, prior breast carcinoma, and psychiatric comorbidities, and R carotid artery stenosis, presenting on 11/22 for elective R carotid artery endarterectomy; case c/b R ICA occlusion d/t dissection and expanding hematoma compromising airway, intubated 11/23 N: R ICA occlusion d/t dissection, c/b expressive aphasia and L hema-paresis, q4h neuro checks, MRI when able, appreciate neurology recommendations; sedated w/ propofol, fentanyl gtt, wean as tolerated CV: R carotid artery stenosis s/p endarterectomy 11/21, c/b R ICA occlusion d/t dissection and expanding hematoma s/p evacuation 11/23 R: R carotid artery stenosis s/p endarterectomy 11/21, c/b R ICA occlusion d/t dissection and expanding hematoma compromising airway, intubated 11/23, wean as tolerated; of note, CT soft tissue N 11/25 demonstrating significant mass effect on hypopharynx/larynx, precluding extubation; some appreciable cuff leak 11/27 GI: no acute issues; NPO : no acute issues; to monitor renal indices, electrolytes closely; diuresis as tolerated H: no acute issues; avoid chemical DVT prophylaxis golden-procedurally, mechanical devices ID: no acute issues E: no acute issues; to monitor hypo-/hyper-glycemia in setting of steroids P: no acute issues Quality Stroke Does the patient have a stroke diagnosis?: Yes Reason for No Anti-thrombotic by Day Two: Contraindicated VTE Prior VTE?: No VTE Risk Level:: Medical - moderate - high VTE Device Contraindication: N/A - Device Ordered VTE Drug Contraindication: Treatment Not Tolerated
[2024-11-27] MEDS: fentaNYL citrate/NS 1,000 MCG/100 ML PLAST..BAG 10 MCG IVCONT ×2 (09:38→19:52)
[2024-11-27] MEDS: propofoL 1,000 MG/100 ML VIAL 14.08 MG IVCONT (09:47)
--- NOTE | 2024-11-27 18:13 | HO.SKINPHOTO ---
Location: Right neck Category: surgical site dressing changed and new photo captured at 11/27/24 at 16:00. Steri strips in place. New gauze and tegaderm dsg applied. Small xeroform placed over pink area of peeling skin toward midline.
[2024-11-28] VITALS (38 sets, daily range): BP systolic 117–175; BP diastolic 54–78; PULSE 60–81; RESP 16–21; TEMP 35–37.6; O2SAT 88–98; BMI 35.5
[2024-11-28] MEDS: propofoL 1,000 MG/100 ML VIAL 18.77 MG IVCONT ×5 (00:53→21:48)
[2024-11-28] MEDS: methylPREDNISolone Sod Succ 125 MG/2 ML VIAL 60 MG IVPUSH ×4 (02:57→23:58)
[2024-11-28 05:10] LABS: ABG Base Excess 10.5 mmol/L; ABG HCO3 34 mmol/L (22-26); ABG pCO2 41 mmHg (32-45); ABG pH 7.52 (7.35-7.45); ABG pO2 61 mmHg (83-108)
[2024-11-28 05:21] LABS: MANUAL DIFF FLAG NO
[2024-11-28 05:25] LABS: Basophils Percent Auto 0.2 % (0-2); Hematocrit 27.9 % (37.0-47.0); Hemoglobin 9.5 g/dl (12.0-16.0); Imm Gran Abs Auto 0.32 X10*3/uL (0.00-0.03); Imm Gran Pct Auto 2.6 % (0.0-0.4); Lymphocytes Absolute Auto 0.7 X10*3/uL (1.2-4.9); Lymphocytes Percent Auto 6.1 % (20-40); Mean Corpuscular HGB Conc 34.1 g/dl (31.0-35.0); Mean Corpuscular Volume 85.1 fL (80.0-98.0); Monocytes Absolute Auto 0.5 X10*3/uL (0.1-1.2); Monocytes Percent Auto 3.7 % (2-11); Neutrophils Absolute Auto 10.6 x10*3/uL (2.0-8.3); Neutrophils Percent Auto 87.4 % (45-73); Platelet Count 310 X10*3/uL (160-400); Red Blood Count 3.28 X10*6/uL (4.20-5.50); Red Cell Distribution Width 13.1 % (11.0-16.0); White Blood Count 12.2 X10*3/uL (4.8-10.8)
[2024-11-28 05:44] LABS: Anion Gap 15 (12-20); Blood Urea Nitrogen 41 mg/dL (9-16); Carbon Dioxide 26 mmol/L (22-29); Chloride 104 mmol/L (96-108); Creatinine Clr Calc Pharmacy 88.3; Estimated Glomerular Filt Rate > 60; Glucose Random 155 mg/dL (60-115); Magnesium 2.7 mg/dL (1.6-2.6); Phosphorus 3.3 mg/dL (2.7-4.5); Potassium 4.2 mmol/L (3.3-5.1); Sodium 141 mmol/L (135-145)
[2024-11-28] MEDS: Furosemide 20 MG/2 ML VIAL IVPUSH (07:36)
[2024-11-28] MEDS: Chlorhexidine Gluc Oral Rinse 15 ML MOUTHWASH BUCCAL ×3 (07:36→20:39)
[2024-11-28] MEDS: 0.9 % Sodium Chloride Flush 3 ML SYRINGE IVFLUSH ×2 (07:36→15:29)
[2024-11-28] MEDS: Famotidine/PF 20 MG/2 ML VIAL IVPUSH ×2 (07:36→20:39)
--- NOTE | 2024-11-28 08:11 | P.PNCC_ITS ---
Subjective Subjective Date of Service: 11/28/24 Interval History: no significant overnight events Critical Care Time (minutes): 60 Physical Exam 2 Vital Signs: Vital Signs: Last Vital Signs Temp 98.0 F 11/28/24 03:59 Pulse 66 11/28/24 07:26 Resp 16 11/28/24 07:00 BP 125/58 L 11/28/24 07:26 Pulse Ox 93 11/28/24 07:20 O2 Del Method Mechanical Ventil ation 11/28/24 07:00 O2 Flow Rate 60 11/26/24 21:00 FiO2 35 11/28/24 07:55 Oxygen Flow Rate 30 11/23/24 12:46 BMI result Body Mass Index 35.5 Const: Other: intubated, sedated General: no acute distress and well developed HEENT: Other: interval improvement tongue and neck edema; R lateral bandage clean, dry, intact Eyes: General: appearance normal, both eyes and all related structures Neck: Other: as described above Chest: Chest palpation & inspection: normal inspection of the chest Resp: Other: some appreciable rhonchi L greater than R; no appreciable rales, wheezing Effort & Inspection: normal respiratory effort Cardio: Rate: regular rate Rhythm: regular rhythm GI: Inspection: Yes normal to inspection, No Abdominal wall edema and No distended Palpation (GI): Soft to palpation, not firm, nontender, no guarding and not rigid Skin: General skin exam: no rashes or lesions noted Neuro: Other: unable to assess Extrem: Other: appreciable non-pitting edema bilateral lower extremities General: Yes normal to inspection, Yes full ROM and Yes capillary refill normal Psych: Other: unable to assess Objective Data Labs 11/28/24 05:02 11/28/24 05:14 Labs: Laboratory Results - last 24 hr 11/28/24 11/28/24 11/28/24 04:58 05:02 05:14 WBC 12.2 H RBC 3.28 L Hgb 9.5 L Hct 27.9 L MCV 85.1 MCH 29.0 MCHC 34.1 RDW 13.1 Plt Count 310 MPV 9.0 L Immature Gran % (Auto) 2.6 H Neut % (Auto) 87.4 H Lymph % (Auto) 6.1 L [place] % (Auto) 3.7 Eos % (Auto) 0.0 Baso % (Auto) 0.2 Lymph # (Auto) 0.7 L [place] # (Auto) 0.5 Eos # (Auto) 0.0 Baso # (Auto) 0.0 Abs Immat Gran (auto) 0.32 H Absolute Neuts (auto) 10.6 H Absolute Nucleated RBC 0.000 Nucleated RBC % (auto) 0.0 O2 Saturation 91.0 ABG pH at Pt Temp 7.52 H ABG pCO2 at Pt Temp 41 ABG pO2 at Pt Temp 61 L ABG HCO3 34 H ABG Base Excess (Actual) 10.5 Sodium 141 Potassium 4.2 Chloride 104 Carbon Dioxide 26 Anion Gap 15 BUN 41 H Creatinine 0.68 Estim Creat Clear Calc 88.3 Estimated GFR > 60 Random Glucose 155 H Calcium 9.0 D Phosphorus 3.3 Magnesium 2.7 H Progress Note: A&P Assessment and plan (1) Stroke: Status: Acute (2) Dissection of right carotid artery: Status: Acute (3) Carotid stenosis, right: Status: Acute (4) Laryngeal edema: Status: Acute Plan Patient is a 54 Y F w/ hypertension, hyperlipidemia, non-ischemic cardiomyopathy s/p pacemaker/defibrillator, COPD, prior breast carcinoma, and psychiatric comorbidities, and R carotid artery stenosis, presenting on 11/22 for elective R carotid artery endarterectomy; case c/b R ICA occlusion d/t dissection and expanding hematoma compromising airway, intubated 11/23 N: R ICA occlusion d/t dissection, c/b expressive aphasia and L hema-paresis, q4h neuro checks, MRI when able, appreciate neurology recommendations; sedated w/ propofol, fentanyl gtt, wean as tolerated CV: R carotid artery stenosis s/p endarterectomy 11/21, c/b R ICA occlusion d/t dissection and expanding hematoma s/p evacuation 11/23 R: R carotid artery stenosis s/p endarterectomy 11/21, c/b R ICA occlusion d/t dissection and expanding hematoma compromising airway, intubated 11/23, wean as tolerated; of note, CT soft tissue N 11/25 demonstrating significant mass effect on hypopharynx/larynx, precluding extubation; some appreciable cuff leak 11/27, 11/28 GI: no acute issues; NPO, tube feeds : no acute issues; to monitor renal indices, electrolytes closely; diuresis as tolerated H: no acute issues; avoid chemical DVT prophylaxis golden-procedurally, mechanical devices ID: no acute issues E: no acute issues; to monitor hypo-/hyper-glycemia in setting of steroids P: no acute issues Quality Stroke Does the patient have a stroke diagnosis?: Yes Reason for No Anti-thrombotic by Day Two: Contraindicated VTE Prior VTE?: No VTE Risk Level:: Medical - moderate - high VTE Device Contraindication: N/A - Device Ordered VTE Drug Contraindication: Treatment Not Tolerated
--- NOTE | 2024-11-28 09:47 | P.PNVS_ITS ---
Subjective Subjective Date of Service: 11/28/24 Patient reports: no new complaints and feels better Interval history: Patient seen and examined. Postop day 6 status post carotid endarterectomy and take back for occlusion. Events over the last day noted. Appears to be doing somewhat better. Reported cuff leak at the current time. Overall edema and swelling have decreased. Doing relatively well. Hemoglobin stable at 9 0.5 Physical Exam Vital Signs: Vital Signs: Last Vital Signs Temp 98.8 F 11/28/24 08:00 Pulse 73 11/28/24 09:00 Resp 18 11/28/24 09:00 BP 129/61 11/28/24 09:00 Pulse Ox 91 L 11/28/24 09:00 O2 Del Method Mechanical Ventil ation 11/28/24 09:00 O2 Flow Rate 60 11/26/24 21:00 FiO2 35 11/28/24 09:00 Oxygen Flow Rate 30 11/23/24 12:46 BMI result Body Mass Index 35.5 Const: Other: Intubated and sedated General: cooperative and comfortable HEENT: Head: Yes normal to inspection Neck: Neck: Yes normal visual inspection Carotids: no bruits Chest: Chest palpation & inspection: normal inspection of the chest Resp: Effort & Inspection: normal respiratory effort and able to speak in complete sentences Auscultation: clear to auscultation bilaterally, no crackles, no rales, no rhonchi and no wheezes Cardio: Rate: regular rate Rhythm: regular rhythm Heart sounds: S1 normal heart sound present and S2 normal heart sound present Bruits: no carotid bruits Peripheral pulses: Peripheral pulses 2+ throughout GI: Inspection: Yes normal to inspection Skin: Wounds: no wounds Hair: normal Neuro: Other: Still noticing left-sided hemiplegia when weaned off Cranial nerves: Yes CN's II-XII intact bilaterally and Yes Normal hearing present Cognition (Neuro): normal cognition Motor exam (neuro): 5/5 motor strength present throughout Extrem: Other: venous exam: No significant superficial varicosities or spider telangiectasias, minimal edema General: No clubbing, No cyanosis and No edema Psych: Appearance: grossly normal Mental Status: mental status grossly normal Speech and movement: Normal speech and movement present Progress Note: A&P Assessment and plan (1) Carotid stenosis, right: Status: Acute Assessment and Plan: In short patient has stroke status post carotid endarterectomy. Appears to have stabilized. Reassess overall status tomorrow and possibility extubation. Possible repeat CT tomorrow. Thank you to the chair spring assembler team for their assistance. Time Spent With Patient Time: Total time managing care of this patient today ____ minutes. Procedures Date of Service Date of Service: 11/28/24 Quality Stroke Does the patient have a stroke diagnosis?: Yes Reason for No Anti-thrombotic by Day Two: Contraindicated VTE Prior VTE?: No VTE Risk Level:: Medical - moderate - high VTE Device Contraindication: N/A - Device Ordered VTE Drug Contraindication: Treatment Not Tolerated
[2024-11-28] MEDS: fentaNYL citrate/NS 1,000 MCG/100 ML PLAST..BAG 7.5 MCG IVCONT (10:44)
[2024-11-28] MEDS: Furosemide 20 MG/2 ML VIAL 40 MG IVPUSH (17:11)
[2024-11-28] MEDS: polyethylene glycoL 3350 17 GM POWD.PACK PO (17:12)
[2024-11-28 19:44] LABS: Anion Gap 16 (12-20); Blood Urea Nitrogen 47 mg/dL (9-16); Carbon Dioxide 31 mmol/L (22-29); Chloride 99 mmol/L (96-108); Creatinine Clr Calc Pharmacy 79.1; Estimated Glomerular Filt Rate > 60; Glucose Random 144 mg/dL (60-115); Magnesium 2.6 mg/dL (1.6-2.6); Phosphorus 4.1 mg/dL (2.7-4.5); Potassium 4.2 mmol/L (3.3-5.1); Sodium 142 mmol/L (135-145)
[2024-11-29] VITALS (32 sets, daily range): BP systolic 115–196; BP diastolic 54–86; PULSE 60–90; RESP 15–35; TEMP 34.6–37.4; O2SAT 86–98; BMI 32.9
[2024-11-29] MEDS: 0.9 % Sodium Chloride Flush 3 ML SYRINGE IVFLUSH ×3 (00:01→15:09)
[2024-11-29 00:27] LABS: Venous Blood Gas Refer to POC result
[2024-11-29] MEDS: propofoL 1,000 MG/100 ML VIAL 18.77 MG IVCONT ×2 (02:03→07:21)
[2024-11-29] MEDS: fentaNYL citrate/NS 1,000 MCG/100 ML PLAST..BAG 5 MCG IVCONT (03:45)
[2024-11-29 05:23] LABS: ABG Base Excess 11.8 mmol/L; ABG HCO3 34 mmol/L (22-26); ABG pCO2 38 mmHg (32-45); ABG pH 7.56 (7.35-7.45); ABG pO2 73 mmHg (83-108)
[2024-11-29 05:42] LABS: MANUAL DIFF FLAG NO
[2024-11-29 05:43] LABS: Basophils Percent Auto 0.1 % (0-2); Hematocrit 29.4 % (37.0-47.0); Hemoglobin 10.2 g/dl (12.0-16.0); Imm Gran Abs Auto 0.41 X10*3/uL (0.00-0.03); Lymphocytes Absolute Auto 0.8 X10*3/uL (1.2-4.9); Lymphocytes Percent Auto 5.9 % (20-40); Mean Corpuscular HGB Conc 34.7 g/dl (31.0-35.0); Mean Corpuscular Hemoglobin 29.1 pg (27.0-33.0); Mean Platelet Volume 9.2 fL (9.4-12.3); Monocytes Absolute Auto 0.8 X10*3/uL (0.1-1.2); Monocytes Percent Auto 6.2 % (2-11); Neutrophils Absolute Auto 11.6 x10*3/uL (2.0-8.3); Neutrophils Percent Auto 84.8 % (45-73); Platelet Count 341 X10*3/uL (160-400); Red Cell Distribution Width 13.1 % (11.0-16.0); White Blood Count 13.7 X10*3/uL (4.8-10.8)
[2024-11-29 05:59] LABS: ABG Refer to POC result
[2024-11-29 06:04] LABS: Albumin Level 4.3 g/dL (3.5-5.0); Anion Gap 16 (12-20); Blood Urea Nitrogen 53 mg/dL (9-16); Calcium 9.7 mg/dL (8.4-10.2); Carbon Dioxide 28 mmol/L (22-29); Chloride 100 mmol/L (96-108); Creatinine Clr Calc Pharmacy 74.8; Estimated Glomerular Filt Rate > 60; Glucose Random 149 mg/dL (60-115); Magnesium 2.7 mg/dL (1.6-2.6); Phosphorus 3.8 mg/dL (2.7-4.5); Potassium 4.2 mmol/L (3.3-5.1); Sodium 140 mmol/L (135-145)
[2024-11-29] MEDS: methylPREDNISolone Sod Succ 125 MG/2 ML VIAL 60 MG IVPUSH (07:26)
--- NOTE | 2024-11-29 09:41 | MHC.CLN ---
F/U PT REMAINS INTUBATED AND SEDATED DISCUSSED AT ROUNDS WITH PT RECEIVING PROMOTE TF AT MAX GOAL RATE 40ML/HR WITH 240ML FREE WATER FLUSHES Q 8 HRS PROVIDES 960KCALS (1456KCALS WITH SEDATION; 27KCALS/KG), 60G PROTEIN (1.1G/KG), 1525ML TOTAL FREE WATER FROM FORMULA AND FLUSHES (28ML/KG) PT TOLERATING TF PER NSG CONTINUE TO MONITOR TOLERANCE AND RESIDUALS
[2024-11-29] MEDS: Furosemide 20 MG/2 ML VIAL 40 MG IVPUSH (10:24)
[2024-11-29] MEDS: Chlorhexidine Gluc Oral Rinse 15 ML MOUTHWASH BUCCAL ×2 (10:27→20:17)
[2024-11-29] MEDS: Famotidine/PF 20 MG/2 ML VIAL IVPUSH ×2 (10:27→20:17)
--- NOTE | 2024-11-29 12:09 | HO.VASCPN ---
Subjective Subjective Date of Service: 11/29/24 Interval history: Renita remains stable. Nursing states her VS remain stable. She is able to communicate with her right hand. She had 2 times this weekend when there was a cuff leak. The edema in her airway has decreased significantly. Physical Exam Vital Signs: Vital Signs: Last Vital Signs Temp 99.2 F 11/29/24 07:00 Pulse 83 11/29/24 11:37 Resp 28 H 11/29/24 11:37 BP 154/77 H 11/29/24 11:37 Pulse Ox 87 L 11/29/24 11:37 O2 Del Method High Flow Nasal C annula 11/29/24 11:37 O2 Flow Rate 50 11/29/24 11:37 FiO2 100 11/29/24 11:37 Oxygen Flow Rate 30 11/23/24 12:46 BMI result Body Mass Index 32.9 Const: General: comfortable and no acute distress Orientation/consciousness: patient oriented x3 HEENT: Ears: hearing grossly normal bilaterally Neck: Other: Right carotid incision site: C/D/I. Bandage without bleeding or drainage noted. Resp: Effort & Inspection: normal respiratory effort and able to speak in complete sentences Auscultation: clear to auscultation bilaterally Cardio: Rate: regular rate Rhythm: regular rhythm Heart sounds: S1 normal heart sound present and S2 normal heart sound present Bruits: no abdominal aortic bruits, no carotid bruits, no femoral bruits and no renal bruits GI: Palpation (GI): No Abdominal aortic bruit present Neuro: General: patient oriented x3 Cranial nerves: Yes CN's II-XII intact bilaterally Extrem: Other: Bilateral lower extremities: trace peripheral edema noted. Progress Note: A&P Assessment and plan (1) Dissection of right carotid artery: Status: Acute Assessment and Plan: Renita remains stable from a vascular standpoint. The incision site remains non edematous, clean, dry, and intact. There will be an attempt for extubation today. We will continue to monitor. If there are any questions or concerns, please do not hesitate to reach out to us. Time Spent With Patient Time: Total time managing care of this patient today ____ minutes. Procedures Date of Service Date of Service: 11/29/24 Quality Stroke Does the patient have a stroke diagnosis?: Yes Reason for No Anti-thrombotic by Day Two: Contraindicated VTE Prior VTE?: No VTE Risk Level:: Medical - moderate - high VTE Device Contraindication: N/A - Device Ordered VTE Drug Contraindication: Treatment Not Tolerated
--- NOTE | 2024-11-29 12:17 | P.PNCC_ITS ---
Subjective Subjective Date of Service: 11/29/24 Interval History: 54-year-old lady with underlying hypertension, hyperlipidemia, cardiomyopathy status post AICD, COPD who on 11/22/2024 had elective right carotid endarterectomy complicated by postprocedure carotid dissection and hematoma with development of edema compressing the airway requiring intubation and ventilatory support, status post hematoma evacuation on 11/23/2024, remained intubated secondary to airway compression with no cuff leak. Cuff leak over the last 48- 72 hours, extubated this a.m.. Postextubation with increasing FiO2 requirements likely secondary to pulmonary aspiration. Critical Care Time (minutes): 60 Physical Exam 2 Vital Signs: Vital Signs: Last Vital Signs Temp 99.2 F 11/29/24 07:00 Pulse 83 11/29/24 11:37 Resp 28 H 11/29/24 11:37 BP 154/77 H 11/29/24 11:37 Pulse Ox 87 L 11/29/24 11:37 O2 Del Method High Flow Nasal C annula 11/29/24 11:37 O2 Flow Rate 50 11/29/24 11:37 FiO2 100 11/29/24 11:37 Oxygen Flow Rate 30 11/23/24 12:46 BMI result Body Mass Index 32.9 Const: General: no acute distress, alert, awake and other (Left hemiparesis) Eyes: Sclerae: sclerae normal EOM: EOMs intact bilaterally Neck: Neck: Yes no lymphadenopathy, Yes trachea midline and Yes supple Resp: Effort & Inspection: normal respiratory effort and no respiratory distress Auscultation: clear to auscultation bilaterally Cardio: Rate: regular rate Rhythm: regular rhythm Heart sounds: no gallops, no murmurs and no rubs GI: Palpation (GI): Soft to palpation and Other GI palpation findings present ( Nontender) Auscultation: normal bowel sounds Extrem: General: Yes no pedal edema, No clubbing and No cyanosis Objective Data Labs 11/29/24 05:09 11/29/24 05:09 Labs: Laboratory Results - last 24 hr 11/28/24 11/29/24 11/29/24 19:13 05:09 05:12 WBC 13.7 H RBC 3.50 L Hgb 10.2 L Hct 29.4 L MCV 84.0 MCH 29.1 MCHC 34.7 RDW 13.1 Plt Count 341 MPV 9.2 L Immature Gran % (Auto) 3.0 H Neut % (Auto) 84.8 H Lymph % (Auto) 5.9 L [place] % (Auto) 6.2 Eos % (Auto) 0.0 Baso % (Auto) 0.1 Lymph # (Auto) 0.8 L [place] # (Auto) 0.8 Eos # (Auto) 0.0 Baso # (Auto) 0.0 Abs Immat Gran (auto) 0.41 H Absolute Neuts (auto) 11.6 H Absolute Nucleated RBC 0.000 Nucleated RBC % (auto) 0.0 O2 Saturation 96.0 ABG pH at Pt Temp 7.56 H ABG pCO2 at Pt Temp 38 ABG pO2 at Pt Temp 73 L ABG HCO3 34 H ABG Base Excess (Actual) 11.8 Sodium 142 140 Potassium 4.2 4.2 Chloride 99 100 Carbon Dioxide 31 H 28 Anion Gap 16 16 BUN 47 H 53 H Creatinine 0.76 0.77 Estim Creat Clear Calc 79.1 74.8 Estimated GFR > 60 > 60 Random Glucose 144 H 149 H Calcium 10.0 D 9.7 Phosphorus 4.1 3.8 Magnesium 2.6 2.7 H Albumin 4.3 Progress Note: A&P Assessment and plan (1) Laryngeal edema: Status: Acute (2) Dissection of right carotid artery: Status: Acute (3) COPD (chronic obstructive pulmonary disease): Status: Acute (4) Status post carotid endarterectomy: Status: Acute Plan Assessment: 54-year-old lady status post elective right carotid endarterectomy complicated carotid dissection and hematoma with airway compression requiring hematoma evacuation and remained intubated postprocedure secondary to airway compression, with improvement, extubated this a.m. Plan: Neuro: Right CVA. CT MRI compatible per Cardiology. Will obtain MRI. Cardiac: No acute issues. Underlying cardiomyopathy status post AICD. Pulmonary: Laryngeal edema and airway compression secondary to carotid hematoma, now improved and extubated this a.m.. Post extubation with increasing FiO2 requirements likely secondary to aspiration. Continue to titrate off supplemental oxygen as tolerated. Renal: No acute issues. Endo: No acute issues. GI: No acute issues. ID: No acute issues Heme/Onc: No acute issues. Psych: No acute issues. Miscellaneous: No acute issues. Prophylaxis: Per vascular surgery Diet: Pending swallow evaluation Critical care time spent: 60 minutes Quality Stroke Does the patient have a stroke diagnosis?: Yes Reason for No Anti-thrombotic by Day Two: Contraindicated VTE Prior VTE?: No VTE Risk Level:: Medical - moderate - high VTE Device Contraindication: N/A - Device Ordered VTE Drug Contraindication: Treatment Not Tolerated
--- NOTE | 2024-11-29 13:56 | MHC.CM.PN ---
Pt extubated today - swelling to neck and oropharynx improved: pt w/left side neglect: will need PT/OT evals for STR placement: Broad referrals placed today: Pt not alert enough for HCP completion. Will f/u on 11/30. CM to follow
[2024-11-29] MEDS: Metoprolol Tartrate 5 MG/5 ML VIAL IVPUSH ×3 (15:09→22:32)
[2024-11-29] MEDS: fentaNYL citrate/PF 100 MCG/2 ML VIAL 25 MCG IVPUSH ×2 (20:31→22:32)
[2024-11-30] VITALS (16 sets, daily range): BP systolic 120–156; BP diastolic 59–99; PULSE 64–95; RESP 18–32; TEMP 36.3–37.1; O2SAT 92–98; BMI 33.7
[2024-11-30] MEDS: 0.9 % Sodium Chloride Flush 3 ML SYRINGE IVFLUSH ×4 (00:46→23:39)
[2024-11-30 05:13] LABS: VBG Base Excess 12.9 mmol/L; VBG HCO3 35 mmol/L (22-26); VBG pCO2 38 mmHg; VBG pH 7.57 (7.32-7.43); VBG pO2 53 mmHg
[2024-11-30 05:21] LABS: Venous Blood Gas Refer to POC result
[2024-11-30 05:29] LABS: MANUAL DIFF FLAG NO
[2024-11-30 05:32] LABS: Basophils Percent Auto 0.3 % (0-2); Eosinophils Percent Auto 0.1 % (0-4); Hemoglobin 11.8 g/dl (12.0-16.0); Imm Gran Abs Auto 0.51 X10*3/uL (0.00-0.03); Imm Gran Pct Auto 3.3 % (0.0-0.4); Lymphocytes Absolute Auto 1.4 X10*3/uL (1.2-4.9); Lymphocytes Percent Auto 8.8 % (20-40); Mean Corpuscular HGB Conc 34.7 g/dl (31.0-35.0); Mean Corpuscular Hemoglobin 29.1 pg (27.0-33.0); Mean Corpuscular Volume 83.7 fL (80.0-98.0); Mean Platelet Volume 8.9 fL (9.4-12.3); Monocytes Absolute Auto 1.2 X10*3/uL (0.1-1.2); Monocytes Percent Auto 7.7 % (2-11); Neutrophils Absolute Auto 12.5 x10*3/uL (2.0-8.3); Neutrophils Percent Auto 79.8 % (45-73); Platelet Count 371 X10*3/uL (160-400); Red Blood Count 4.06 X10*6/uL (4.20-5.50); Red Cell Distribution Width 13.2 % (11.0-16.0); White Blood Count 15.6 X10*3/uL (4.8-10.8)
[2024-11-30 05:51] LABS: Alanine Aminotransferase 58 U/L (0-31); Albumin Level 4.7 g/dL (3.5-5.0); Alkaline Phosphatase 96 U/L (39-117); Anion Gap 20 (12-20); Aspartate Amino Transferase 28 U/L (5-31); Bilirubin Total 1.1 mg/dL (0.0-1.0); Blood Urea Nitrogen 54 mg/dL (9-16); Calcium 9.8 mg/dL (8.4-10.2); Carbon Dioxide 28 mmol/L (22-29); Chloride 100 mmol/L (96-108); Creatinine Clr Calc Pharmacy 77.8; Estimated Glomerular Filt Rate > 60; Glucose Random 117 mg/dL (60-115); Magnesium 2.9 mg/dL (1.6-2.6); Phosphorus 3.5 mg/dL (2.7-4.5); Potassium 3.3 mmol/L (3.3-5.1); Sodium 145 mmol/L (135-145); Total Protein 8.2 g/dL (6.5-8.0)
[2024-11-30] MEDS: Potassium Chloride/H20 10 MEQ/100 ML PIGGYBACK 100 MEQ IV ×4 (06:21→10:00)
[2024-11-30] MEDS: Furosemide 20 MG/2 ML VIAL 40 MG IVPUSH (08:45)
--- NOTE | 2024-11-30 09:00 | HO.VASCPN ---
Subjective Subjective Date of Service: 11/30/24 Interval history: Renita remains stable this morning. There were no overnight events. She remains on Oxymask at 1L, maintaining O2 sats in the mid 90s. She denies any pain this morning and is giving a thumbs up to questions asked with her right thumb. Physical Exam Vital Signs: Vital Signs: Last Vital Signs Temp 97.3 F 11/30/24 08:00 Pulse 82 11/30/24 08:00 Resp 29 H 11/30/24 08:00 BP 140/73 H 11/30/24 08:00 Pulse Ox 95 11/30/24 08:00 O2 Del Method Oxymask 11/30/24 08:00 O2 Flow Rate 1 11/30/24 08:00 FiO2 100 11/29/24 12:00 Oxygen Flow Rate 30 11/23/24 12:46 BMI result Body Mass Index 33.7 Const: General: comfortable and no acute distress Orientation/consciousness: patient oriented x3 HEENT: Ears: hearing grossly normal bilaterally Neck: Other: Right carotid site: C/D/I. No bleeding/discharge noted on bandage. Resp: Effort & Inspection: normal respiratory effort and able to speak in complete sentences Auscultation: clear to auscultation bilaterally Cardio: Rate: regular rate Rhythm: regular rhythm Heart sounds: S1 normal heart sound present and S2 normal heart sound present Bruits: no abdominal aortic bruits, no carotid bruits, no femoral bruits and no renal bruits GI: Palpation (GI): No Abdominal aortic bruit present Neuro: General: patient oriented x3 Cranial nerves: Yes CN's II-XII intact bilaterally Extrem: Other: Left arm/leg: flaccid. Unable to move on her own. Right arm/leg: weak but able to follow commands. Able to wiggle her toes/move her foot. Bilateral lower extremities: trace peripheral edema noted. Progress Note: A&P Assessment and plan (1) Status post carotid endarterectomy: Status: Acute Assessment and Plan: Renita remains stable from a vascular standpoint. She remains on Oxymask at 1L. She was found to have leukocytosis this morning without fever. We will order a CXR, due to the leukocytosis and ? aspiration. She is maintaining O2 sats at 95% and is afebrile. We will have her Rowe removed as well. She does have a bedside swallow eval ordered. We will hold off on urine and blood cultures for now. We will start her on Heparin SQ for DVT proph. She will also be transferred to Telemetry at some point. We will continue to monitor. If there are any questions or concerns, please do not hesitate to reach out. Time Spent With Patient Time: Total time managing care of this patient today ____ minutes. Procedures Date of Service Date of Service: 11/30/24 Quality Stroke Does the patient have a stroke diagnosis?: Yes Reason for No Anti-thrombotic by Day Two: Contraindicated VTE Prior VTE?: No VTE Risk Level:: Medical - moderate - high VTE Device Contraindication: N/A - Device Ordered VTE Drug Contraindication: Treatment Not Tolerated
--- NOTE | 2024-11-30 09:30 | PM.CCPN ---
Subjective Subjective Date of Service: 11/30/24 Interval History: 54-year-old lady with underlying hypertension, hyperlipidemia, cardiomyopathy status post AICD, COPD who on 11/22/2024 had elective right carotid endarterectomy complicated by postprocedure carotid dissection and hematoma with development of edema compressing the airway requiring intubation and ventilatory support, status post hematoma evacuation on 11/23/2024, remained intubated secondary to airway compression with no cuff leak. Patient was treated with systemic glucocorticoids and diuretic with improvement in laryngeal edema and appearance of cuff leak. Patient was uneventfully extubated on 11/29/2024. Post extubation patient with what appears to be silent aspirations requiring minimum level of supplemental oxygen. No events overnight. Critical Care Time (minutes): 0 Physical Exam Vital Signs: Vital Signs: Last Vital Signs Temp 97.3 F 11/30/24 08:00 Pulse 88 11/30/24 09:00 Resp 28 H 11/30/24 09:00 BP 156/99 H 11/30/24 09:00 Pulse Ox 93 11/30/24 09:00 O2 Del Method Oxymask 11/30/24 09:00 O2 Flow Rate 1 11/30/24 09:00 FiO2 100 11/29/24 12:00 Oxygen Flow Rate 30 11/23/24 12:46 BMI result Body Mass Index 33.7 Const: General: no acute distress, alert, awake and other (Left hemiparesis) Eyes: Sclerae: sclerae normal EOM: EOMs intact bilaterally Neck: Neck: Yes no lymphadenopathy, Yes trachea midline and Yes supple Resp: Effort & Inspection: normal respiratory effort and no respiratory distress Auscultation: clear to auscultation bilaterally Cardio: Rate: regular rate Rhythm: regular rhythm Heart sounds: no gallops, no murmurs and no rubs GI: Palpation (GI): Soft to palpation and Other GI palpation findings present ( Nontender) Auscultation: normal bowel sounds Extrem: General: Yes no pedal edema, No clubbing and No cyanosis Objective Data Labs 11/30/24 05:10 11/30/24 05:10 Labs: Laboratory Results - last 24 hr 11/30/24 11/30/24 05:03 05:10 WBC 15.6 H RBC 4.06 L Hgb 11.8 L Hct 34.0 L MCV 83.7 MCH 29.1 MCHC 34.7 RDW 13.2 Plt Count 371 MPV 8.9 L Immature Gran % (Auto) 3.3 H Neut % (Auto) 79.8 H Lymph % (Auto) 8.8 L [place] % (Auto) 7.7 Eos % (Auto) 0.1 Baso % (Auto) 0.3 Lymph # (Auto) 1.4 [place] # (Auto) 1.2 Eos # (Auto) 0.0 Baso # (Auto) 0.0 Abs Immat Gran (auto) 0.51 H Absolute Neuts (auto) 12.5 H Absolute Nucleated RBC 0.000 Nucleated RBC % (auto) 0.0 VBG pH 7.57 H VBG pCO2 38 VBG pO2 53 VBG HCO3 35 H VBG O2 Saturation 86.0 VBG Base Excess 12.9 Sodium 145 Potassium 3.3 D Chloride 100 Carbon Dioxide 28 Anion Gap 20 BUN 54 H Creatinine 0.75 Estim Creat Clear Calc 77.8 Estimated GFR > 60 Random Glucose 117 H Calcium 9.8 Phosphorus 3.5 Magnesium 2.9 H Total Bilirubin 1.1 H AST 28 ALT 58 H Alkaline Phosphatase 96 Total Protein 8.2 H Albumin 4.7 Progress Note: A&P Assessment and plan (1) Dissection of right carotid artery: Status: Acute (2) Status post carotid endarterectomy: Status: Acute (3) Stroke: Status: Acute (4) Dysphagia causing pulmonary aspiration with swallowing: Status: Acute Plan Assessment: 54-year-old lady status post elective right carotid endarterectomy complicated carotid dissection and hematoma with airway compression requiring hematoma evacuation and remained intubated postprocedure secondary to airway compression, with improvement, extubated this a.m. Plan: Neuro: Right CVA. CT MRI compatible per Cardiology. MRI brain is pending. Cardiac: No acute issues. Underlying cardiomyopathy status post AICD. Pulmonary: Laryngeal edema and airway compression secondary to carotid hematoma, now improved and extubated on 11/29/2024. Post extubation with increasing FiO2 requirements likely secondary to aspiration, now improved. Continue to titrate off supplemental oxygen as tolerated. Renal: No acute issues. Endo: No acute issues. GI: No acute issues. ID: [email or web address] Unasyn for suspected pulmonary aspiration. Heme/Onc: No acute issues. Psych: No acute issues. Miscellaneous: No acute issues. Prophylaxis: Per vascular surgery Diet: Pending swallow evaluation Quality Stroke Does the patient have a stroke diagnosis?: Yes Reason for No Anti-thrombotic by Day Two: Contraindicated VTE Prior VTE?: No VTE Risk Level:: Medical - moderate - high VTE Device Contraindication: N/A - Device Ordered VTE Drug Contraindication: Treatment Not Tolerated
[2024-11-30] MEDS: Ampicillin Sodium/Sulbactam Na 3 GM in 0.9 % Sodium Chloride 100 ML IV ×2 (10:00→18:50)
--- NOTE | 2024-11-30 10:13 | PM.EVENT ---
Event Note Date of Service: 11/30/24 Event Note: 54F PMH hypertension, hyperlipidemia, cardiomyopathy (s/p AICD), and COPD, admitted for elective right carotid endarterectomy on 11/22/2024. The procedure was complicated by carotid dissection and hematoma, leading to airway compression and need for intubation and left hemiparesis. She underwent hematoma evacuation on 11/23/2024 but remained intubated due to persistent airway edema. Treated with systemic glucocorticoids and diuretics, she showed improvement and was uneventfully extubated on 11/29/2024. Post-extubation, she exhibited signs of silent aspiration with minimal oxygen requirements. 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
--- NOTE | 2024-11-30 12:23 | MHC.CM.PN ---
Pt extubated and on high flow O2: Scheduled for transfer to the floor today: PT/OT eval orders placed in anticipation of STR needs following post surgical CVA. Pt will need a HCP completed or family to find copy to bring in. STR referrals placed
[2024-11-30] MEDS: gadobutroL 7.5 ML VIAL IVPUSH (14:14)
--- NOTE | 2024-11-30 14:35 | MHC.CM.PN ---
Addendum entered by [place]ina [place] 11/30/24 14:43: SNF search was initiated already and 4 SNFs are interested and following. CM will continue to follow. Original Note: Patient is being transferred from ICU and appears unable to respond appropriately to questions. CM spoke with Daughter/proclaimed HCP/Kailey at [phone]. There is a HCP on file naming Ex-/Parth as the HCP; CM spoke with Parth with the assist of a telephonic Manager Transfer and he explained that he is no longer with Patient and that CM needs to speak with Kailey. Per Kailey, a HCP was completed at [facility], more recently than the HCP naming Parth as the Agent. ALE has faxed a request to [facility] @ [phone], asking for a copy of the HCP. BUS ESCORT, Patient lives alone in an apartment and her Daughter/Kailey was her FILTERER 21 hours/week through [employer]. Patient will benefit from a PT Eval to assist with disposition; STR appears likely and Kailey has approved the initiation of a local SNF search. CM will follow.
--- NOTE | 2024-11-30 14:44 | MHC.SL.SWA ---
Speech Pathologist Impression: Risk of Aspiration, Oropharyngeal Dysphagia Risk of Aspiration Due to: Lethargy Medically Fragile Dysphasia Diet Status: Continue NPO Liquid Consistency and Strategies for Safe Swallow: Liquid Intake Recommendation: NPO Solid Food Consistency: Dietary Recommendations: NPO Additional Modifications to Solid Foods: Recommend continue NPO status at this time. Patient evidencing overt s/s of aspiration when swallowing trace amount of water. Recommend aspiration precautions: elevate HoB, ensure daily oral care for hygiene and comfort. Oral Medication Intake: NPO Please contact the pharmacy regarding appropriate crushable or liquid drug formulations that are available whenever modified delivery is recommended. Supervision While Eating and Drinking for Safe Swallow: PO with SPEECH PATHOLOGY ASSISTANT Recommendation for Speech: Inpatient Speech Therapy Comment: SPEECH PATHOLOGY ASSISTANT to re-evaluate tomorrow morning. Frequency/Duration: Date Range for Service Req: Timeline to reassess: Sprinkler Fitter Helper Clinican/Clinical Fellow: No Supervisory Statement: I have reviewed and agree with the student/clinical fellow's documentation: N/A Speech Language Pathologist: Alysha Thorne M.A., CCC-SPEECH PATHOLOGY ASSISTANT
[2024-11-30] MEDS: Chlorhexidine Gluc Oral Rinse 15 ML MOUTHWASH BUCCAL ×2 (16:15→22:36)
[2024-11-30] MEDS: Heparin Sodium,Porcine 5,000 UNIT/ML VIAL 5000 UNIT SUBCUT (16:15)
[2024-11-30] MEDS: Morphine Sulfate 2 MG/ML CARTRIDGE 1 MG IVPUSH (23:37)
[2024-12-01] VITALS (8 sets, daily range): BP systolic 129–155; BP diastolic 65–89; PULSE 76–99; RESP 14–28; TEMP 36.2–37.2; O2SAT 93–97
[2024-12-01] MEDS: Dextrose 5 % and Lactated Ring 1,000 ML 100 ML IVCONT ×2 (00:16→16:12)
[2024-12-01] MEDS: Ampicillin Sodium/Sulbactam Na 3 GM in 0.9 % Sodium Chloride 100 ML IV ×3 (00:21→23:53)
[2024-12-01] MEDS: Heparin Sodium,Porcine 5,000 UNIT/ML VIAL 5000 UNIT SUBCUT ×4 (00:21→23:53)
[2024-12-01] MEDS: Morphine Sulfate 2 MG/ML CARTRIDGE 1 MG IVPUSH ×2 (05:10→16:26)
[2024-12-01 07:10] LABS: MANUAL DIFF FLAG NO; Venous Blood Gas Refer to POC result
[2024-12-01 07:12] LABS: VBG HCO3 35 mmol/L (22-26); VBG pCO2 38 mmHg; VBG pH 7.57 (7.32-7.43); VBG pO2 156 mmHg
[2024-12-01 07:16] LABS: Basophils Percent Auto 0.2 % (0-2); Eosinophils Percent Auto 0.2 % (0-4); Hematocrit 34.2 % (37.0-47.0); Hemoglobin 11.3 g/dl (12.0-16.0); Imm Gran Abs Auto 0.26 X10*3/uL (0.00-0.03); Imm Gran Pct Auto 1.9 % (0.0-0.4); Lymphocytes Absolute Auto 1.2 X10*3/uL (1.2-4.9); Mean Corpuscular Hemoglobin 28.5 pg (27.0-33.0); Mean Corpuscular Volume 86.4 fL (80.0-98.0); Monocytes Absolute Auto 1.2 X10*3/uL (0.1-1.2); Monocytes Percent Auto 8.6 % (2-11); Neutrophils Absolute Auto 10.7 x10*3/uL (2.0-8.3); Neutrophils Percent Auto 80.1 % (45-73); Platelet Count 362 X10*3/uL (160-400); Red Blood Count 3.96 X10*6/uL (4.20-5.50); Red Cell Distribution Width 13.2 % (11.0-16.0); White Blood Count 13.4 X10*3/uL (4.8-10.8)
[2024-12-01 07:30] LABS: Albumin Level 4.2 g/dL (3.5-5.0); Anion Gap 16 (12-20); Blood Urea Nitrogen 46 mg/dL (9-16); Calcium 9.6 mg/dL (8.4-10.2); Carbon Dioxide 27 mmol/L (22-29); Chloride 104 mmol/L (96-108); Creatinine Clr Calc Pharmacy 83.4; Estimated Glomerular Filt Rate > 60; Glucose Random 171 mg/dL (60-115); Magnesium 2.9 mg/dL (1.6-2.6); Phosphorus 2.8 mg/dL (2.7-4.5); Potassium 4.6 mmol/L (3.3-5.1); Sodium 142 mmol/L (135-145)
--- NOTE | 2024-12-01 09:14 | MHC.SLORD ---
Speech Language Pathology Order Status: Pt seen for dysphagia treatment, pt sleeping comfortably, not ready to wake for PO intake. RN consulted. NUT SORTER OPERATOR to return when pt awake in assessing PO tolerance.
[2024-12-01] MEDS: 0.9 % Sodium Chloride Flush 3 ML SYRINGE IVFLUSH ×3 (09:20→23:53)
[2024-12-01] MEDS: Chlorhexidine Gluc Oral Rinse 15 ML MOUTHWASH BUCCAL ×3 (09:51→21:01)
--- NOTE | 2024-12-01 10:24 | MHC.CM.PN ---
PT is recommending Acute Rehab; Daughter wants rehab close to [place] area. CM will follow.
--- NOTE | 2024-12-01 10:26 | MHC.CLN ---
F/U PT EXTUBATED 2/3 TRANSFERRED TO MEDICAL FLOOR PT REMAINS NPO PENDING SWALLOW CURATOR MEDICAL MUSEUM FOLLOWING FOR APPROPRIATE DIET CONSISTENCY WHEN DIET TO ADVANCE, RECOMMEND 2GM NA IN ADDITION TO CURATOR MEDICAL MUSEUM RECOMMENDATIONS FOLLOWING WITH TEAM
--- NOTE | 2024-12-01 10:27 | P.PNVS_ITS ---
Subjective Subjective Date of Service: 12/01/24 Interval history: Renita was moved from the ICU to the floor yesterday. She remains stable. She continues on the Oxymask. She has been seen and evaluated by AUTOMOBILE BODY REPAIR CHIEF. She continues on NPO. She was non-verbal this morning but has been continuing to gesture with her right hand. Physical Exam Vital Signs: Vital Signs: Last Vital Signs Temp 98.5 F 12/01/24 07:40 Pulse 81 12/01/24 08:59 Resp 18 12/01/24 07:40 BP 146/65 H 12/01/24 08:59 Pulse Ox 94 12/01/24 08:59 O2 Del Method Oxymask 12/01/24 07:40 O2 Flow Rate 2 12/01/24 07:40 FiO2 100 11/29/24 12:00 Oxygen Flow Rate 30 11/23/24 12:46 BMI result Body Mass Index 33.7 Const: General: comfortable and no acute distress Orientation/consciousness: oriented to person and patient oriented x3 HEENT: Ears: hearing grossly normal bilaterally Neck: Other: Right carotid incision: C/D/I Resp: Effort & Inspection: normal respiratory effort and able to speak in complete sentences Auscultation: clear to auscultation bilaterally Cardio: Rate: regular rate Rhythm: regular rhythm Heart sounds: S1 normal heart sound present and S2 normal heart sound present Bruits: no abdominal aortic bruits, no carotid bruits, no femoral bruits and no renal bruits GI: Palpation (GI): No Abdominal aortic bruit present Neuro: General: oriented to person and patient oriented x3 Extrem: Other: Left upper and lower extremity: flaccid. Right upper and lower extremity: weak but able to follow commands Progress Note: A&P Assessment and plan (1) Dissection of right carotid artery: Status: Acute Assessment and Plan: Renita remains stable from a vascular standpoint. Her white count has gone down from yesterday. CXR negative for any acute processes. Blood cultures are pending; they were drawn prior to the order being discontinued. She is being followed by PT, OT, and AUTOMOBILE BODY REPAIR CHIEF. She currently remains NPO due to dysphagia/concerns of aspiration risk. She remains on the Oxymask as well. We discussed with the hospitalist to possibly try to wean her down from the Oxygen/Oxymask. PT is recommending STR, which we are in agreement with. We will continue to monitor. If there are any questions or concerns, please do not hesitate to reach out. Time Spent With Patient Time: Total time managing care of this patient today ____ minutes. Procedures Date of Service Date of Service: 12/01/24 Quality Stroke Does the patient have a stroke diagnosis?: Yes Reason for No Anti-thrombotic by Day Two: Contraindicated VTE Prior VTE?: No VTE Risk Level:: Medical - moderate - high VTE Device Contraindication: N/A - Device Ordered VTE Drug Contraindication: Treatment Not Tolerated
--- NOTE | 2024-12-01 11:56 | MHC.SL.SWA ---
Speech Pathologist Impression: Moderate to significant persisting pharyngeal dysphagia, mild oral dysphagia d/t presence of lingual abrasion Risk of Aspiration Due to: Lethargy Medically Fragile Dysphasia Diet Status: Liquid Consistency and Strategies for Safe Swallow: Liquid Intake Recommendation: NPO Liquid Intake Strategies: Solid Food Consistency: Dietary Recommendations: NPO Additional Modifications to Solid Foods: Recommend continue NPO status at this time. Patient evidencing overt s/s of aspiration when swallowing trace amount of water. Recommend aspiration precautions: elevate HoB, ensure daily oral care for hygiene and comfort. Oral Medication Intake: NPO Please contact the pharmacy regarding appropriate crushable or liquid drug formulations that are available whenever modified delivery is recommended. Compensatory Strategies and Precautions to be Taken for Safe Swallow: Supervision While Eating and Drinking for Safe Swallow: PO with BLADE GRINDER Foods to Avoid: Swallowing Recommended Treatments: Recommendation for Speech: Inpatient Speech Therapy Comment: BLADE GRINDER to re-evaluate tomorrow morning. Frequency/Duration: Date Range for Service Req: Timeline to reassess: Electrician Substation Clinican/Clinical Fellow: No Supervisory Statement: I have reviewed and agree with the student/clinical fellow's documentation: N/A Speech Language Pathologist: Jeana Bonner M.S., [facility]-BLADE GRINDER
--- NOTE | 2024-12-01 13:22 | P.PNIM_ITS ---
Subjective Subjective Date of Service: 12/01/24 Interval History: Seen and evaluated this morning Left sided flaccid dialysis she was able to say few words looks frail and deconditioned Review of Systems Review of Systems: Yes Unobtainable due to mental condition Physical Exam 2 Vital Signs: Vital Signs: Last Vital Signs Temp 98.4 F 12/01/24 11:12 Pulse 77 12/01/24 11:12 Resp 20 12/01/24 11:12 BP 139/73 12/01/24 11:12 Pulse Ox 97 12/01/24 11:12 O2 Del Method Oxymask 12/01/24 11:12 O2 Flow Rate 2 12/01/24 11:12 FiO2 100 11/29/24 12:00 Oxygen Flow Rate 30 11/23/24 12:46 BMI result Body Mass Index 33.7 Const: Other: Constitutional : Awake, interactive, not in distress Neck : Normal inspection, Supple Cardiovascular : RRR, no JVP, no lower extremity edema Respiratory : decreased bilateral air entry, basal fine crackles, no wheezes Gastrointestinal: soft, lax, Normal bowel sounds, Non tender Skin : Warm, Dry Neurological : Alert & oriented to self and place, left sided flaccid hemiplegia, neglect, mild facial droop Objective Data Active Medications Chlorhexidine Gluconate (Chlorhexidine Gluc Oral Rinse 15 Ml Mouthwash) 15 ml BUCCAL TID [facility] Last Admin: 12/01/24 09:51 Dose: 15 ml Documented By: ERICK Furosemide (Furosemide 20 Mg/2 Ml Vial) 40 mg IVPUSH DAILY [facility]; Protocol Last Admin: 11/30/24 08:45 Dose: 40 mg Documented By: SUSNA Heparin Sodium (Porcine) (Heparin Sodium,Porcine 5,000 Unit/Ml Vial) 5,000 unit SUBCUT Q8H [facility] Last Admin: 12/01/24 09:19 Dose: 5,000 unit Documented By: ERICK Ampicillin Sodium/Sulbactam (Sodium 3 gm/ Sodium Chloride) 100 mls @ 200 mls/hr IV Q8H [facility] Last Infusion: 12/01/24 00:52 Dose: Infused Documented By: CHRISTEN-SUE Dextrose/Lactated Ringer's (D5lr) 1,000 mls @ 100 mls/hr IVCONT .Q10H [facility] Last Admin: 12/01/24 00:16 Dose: 100 mls/hr Documented By: DENICE Morphine Sulfate (Morphine Sulfate 2 Mg/Ml Cartridge) 1 mg IVPUSH Q3H PRN; Protocol PRN Reason: Pain, Moderate(Pain Scale 4-6) Last Admin: 12/01/24 05:10 Dose: 1 mg Documented By: DENICE Polyethylene Glycol (Polyethylene Glycol 3350 17 Gm Powd.Pack) 17 gm PO DAILY PRN PRN Reason: Constipation Last Admin: 11/28/24 17:12 Dose: 17 gm Documented By: SANDRA Sodium Chloride (0.9 % Sodium Chloride Flush 3 Ml Syringe) 3 ml IVFLUSH QSHIFT [facility] Last Admin: 12/01/24 09:20 Dose: 3 ml Documented By: BITAT Labs 12/01/24 07:01 12/01/24 07:01 Labs: Laboratory Results - last 24 hr 12/01/24 12/01/24 07:01 07:05 MCV 86.4 MCH 28.5 MCHC 33.0 RDW 13.2 Plt Count 362 MPV 9.0 L Immature Gran % (Auto) 1.9 H Neut % (Auto) 80.1 H Lymph % (Auto) 9.0 L [place] % (Auto) 8.6 Eos % (Auto) 0.2 Baso % (Auto) 0.2 Lymph # (Auto) 1.2 [place] # (Auto) 1.2 Eos # (Auto) 0.0 Baso # (Auto) 0.0 Abs Immat Gran (auto) 0.26 H Absolute Neuts (auto) 10.7 H Absolute Nucleated RBC 0.000 Nucleated RBC % (auto) 0.0 VBG pH 7.57 H VBG pCO2 38 VBG pO2 156 VBG HCO3 35 H VBG O2 Saturation 99.0 VBG Base Excess 13.0 Anion Gap 16 Estim Creat Clear Calc 83.4 Estimated GFR > 60 Random Glucose 171 H Calcium 9.6 Phosphorus 2.8 Magnesium 2.9 H Albumin 4.2 Microbiology Microbiology Results: Microbiology 11/30/24 09:18 Blood Culture - Preliminary Blood - Venous No growth after 24 hours. 11/30/24 09:18 Blood Culture - Preliminary Blood - Venous No growth after 24 hours. Assessment and Plan (1) Dysphagia causing pulmonary aspiration with swallowing: Status: Acute (2) Status post carotid endarterectomy: Status: Acute Plan 54F PMH hypertension, hyperlipidemia, cardiomyopathy (s/p AICD), and COPD, admitted for elective right carotid endarterectomy on 11/22/2024. The procedure was complicated by carotid dissection and hematoma, leading to airway compression and need for intubation and left hemiparesis. She underwent hematoma evacuation on 11/23/2024 but remained intubated due to persistent airway edema. Treated with systemic glucocorticoids and diuretics, she showed improvement and was uneventfully extubated on 11/29/2024. Post-extubation, she exhibited signs of silent aspiration with minimal oxygen requirements. now downgraded to medical floor 11/30/24 right CEA complicated by hematoma and left hemiparesis, acute hypoxic respiratory failure MEDIA RELATIONS MANAGER rec NPO for now mri reporting right fronto-temporal stroke on IVF fluids for now Vascular surgery following holding her PO home medications acute on chronic systolic chf hold on IV lasix possible aspiration pneumonia\pneumoitis empiric unasyn DVT PPx Heparin Thank you for the consult will continue to follow the patient with you Quality Stroke Does the patient have a stroke diagnosis?: Yes Reason for No Anti-thrombotic by Day Two: Contraindicated VTE Prior VTE?: No VTE Risk Level:: Medical - moderate - high VTE Device Contraindication: N/A - Device Ordered VTE Drug Contraindication: Treatment Not Tolerated
[2024-12-01] MEDS: Furosemide 20 MG/2 ML VIAL 40 MG IVPUSH (16:45)
[2024-12-02] VITALS (7 sets, daily range): BP systolic 152–172; BP diastolic 67–87; PULSE 49–73; RESP 16–21; TEMP 35.7–36.9; O2SAT 2–100
[2024-12-02] MEDS: Dextrose 5 % and Lactated Ring 1,000 ML 100 ML IVCONT ×3 (05:10→21:43)
[2024-12-02] MEDS: Morphine Sulfate 2 MG/ML CARTRIDGE 1 MG IVPUSH (05:48)
[2024-12-02] MEDS: Pantoprazole Sodium 40 MG/10 ML VIAL IVPUSH (05:49)
--- NOTE | 2024-12-02 08:50 | P.PNVS_ITS ---
Subjective Subjective Date of Service: 12/02/24 Interval history: Renita remains stable this morning. She continues NPO due to findings of moderate to significant dysphagia. She is able to speak a few words and can signal with her right hand. She continues with complete weakness of the left upper and lower extremities. Physical Exam Vital Signs: Vital Signs: Last Vital Signs Temp 98.1 F 12/02/24 08:00 Pulse 67 12/02/24 08:00 Resp 16 12/02/24 08:00 BP 153/67 H 12/02/24 08:00 Pulse Ox 98 12/02/24 08:00 O2 Del Method Oxymask 12/02/24 08:00 O2 Flow Rate 2 12/02/24 08:00 FiO2 100 11/29/24 12:00 Oxygen Flow Rate 30 11/23/24 12:46 BMI result Body Mass Index 33.7 Const: General: comfortable and no acute distress Orientation/consciousness: patient oriented x3 HEENT: Ears: hearing grossly normal bilaterally Neck: Other: Right carotid incision: C/D/I. bandage in place, with no drainage/bleeding noted on it. Resp: Effort & Inspection: normal respiratory effort Auscultation: clear to auscultation bilaterally Cardio: Rate: regular rate Rhythm: regular rhythm Heart sounds: S1 normal heart sound present and S2 normal heart sound present Bruits: no abdominal aortic bruits, no carotid bruits, no femoral bruits and no renal bruits GI: Palpation (GI): No Abdominal aortic bruit present Neuro: General: patient oriented x3 Extrem: Other: Left upper and lower extremity: flaccid Progress Note: A&P Assessment and plan (1) Dissection of right carotid artery: Status: Acute Assessment and Plan: Renita remains stable from a vascular standpoint. PT/OT/E COMMERCE SPECIALIST are following. She remains NPO due to dysphagia. CM is following for STR placement. The pt remains on Oxymask at 2L/min with a nasal trumpet in. Her white count has decreased. BC were negative after >24h growth. We will continue to monitor. If there are any questions or concerns, please do not hesitate to reach out. Time Spent With Patient Time: Total time managing care of this patient today ____ minutes. Procedures Date of Service Date of Service: 12/02/24 Quality Stroke Does the patient have a stroke diagnosis?: Yes Reason for No Anti-thrombotic by Day Two: Contraindicated VTE Prior VTE?: No VTE Risk Level:: Medical - moderate - high VTE Device Contraindication: N/A - Device Ordered VTE Drug Contraindication: Treatment Not Tolerated
[2024-12-02] MEDS: Heparin Sodium,Porcine 5,000 UNIT/ML VIAL 5000 UNIT SUBCUT ×2 (09:26→16:46)
[2024-12-02] MEDS: Chlorhexidine Gluc Oral Rinse 15 ML MOUTHWASH BUCCAL ×3 (09:26→21:43)
[2024-12-02] MEDS: Ampicillin Sodium/Sulbactam Na 3 GM in 0.9 % Sodium Chloride 100 ML IV ×2 (09:27→16:48)
[2024-12-02] MEDS: 0.9 % Sodium Chloride Flush 3 ML SYRINGE IVFLUSH ×2 (09:27→16:48)
--- NOTE | 2024-12-02 11:12 | P.PNIM_ITS ---
Subjective Subjective Date of Service: 12/02/24 Interval History: Seen and evaluated this morning Left sided flaccid dialysis she was vague and her voice unclear no tolerating PO looks frail and deconditioned Review of Systems Review of Systems: Yes Unobtainable due to mental status Physical Exam 2 Vital Signs: Vital Signs: Last Vital Signs Temp 97.9 F 12/02/24 11:07 Pulse 60 12/02/24 11:07 Resp 20 12/02/24 11:07 BP 152/68 H 12/02/24 11:07 Pulse Ox 100 12/02/24 11:07 O2 Del Method Aerosol Mask 12/02/24 11:07 O2 Flow Rate 10 12/02/24 11:07 FiO2 30 12/02/24 11:07 Oxygen Flow Rate 30 11/23/24 12:46 BMI result Body Mass Index 33.7 Const: Other: Constitutional : Awake, interactive, not in distress Neck : Normal inspection, Supple Cardiovascular : RRR, no JVP, no lower extremity edema Respiratory : decreased bilateral air entry, basal fine crackles, no wheezes Gastrointestinal: soft, lax, Normal bowel sounds, Non tender Skin : Warm, Dry Neurological : Alert & oriented to self and place, left sided flaccid hemiplegia, neglect, mild facial droop Objective Data Active Medications Chlorhexidine Gluconate (Chlorhexidine Gluc Oral Rinse 15 Ml Mouthwash) 15 ml BUCCAL TID [facility] Last Admin: 12/02/24 09:26 Dose: 15 ml Documented By: ERICK Furosemide (Furosemide 20 Mg/2 Ml Vial) 40 mg IVPUSH Q24H [facility]; Protocol Last Admin: 12/01/24 16:45 Dose: 40 mg Documented By: ERICK Heparin Sodium (Porcine) (Heparin Sodium,Porcine 5,000 Unit/Ml Vial) 5,000 unit SUBCUT Q8H [facility] Last Admin: 12/02/24 09:26 Dose: 5,000 unit Documented By: ERICK Ampicillin Sodium/Sulbactam (Sodium 3 gm/ Sodium Chloride) 100 mls @ 200 mls/hr IV Q8H [facility] Last Infusion: 12/02/24 10:02 Dose: Infused Documented By: ERICK Dextrose/Lactated Ringer's (D5lr) 1,000 mls @ 100 mls/hr IVCONT .Q10H [facility] Last Admin: 12/02/24 05:10 Dose: 100 mls/hr Documented By: KELLE Morphine Sulfate (Morphine Sulfate 2 Mg/Ml Cartridge) 1 mg IVPUSH Q3H PRN; Protocol PRN Reason: Pain, Moderate(Pain Scale 4-6) Last Admin: 12/02/24 05:48 Dose: 1 mg Documented By: KELLE Pantoprazole Sodium (Pantoprazole Sodium 40 Mg/10 Ml Vial) 40 mg IVPUSH DAILY@0630 [facility] Last Admin: 12/02/24 05:49 Dose: 40 mg Documented By: KELLE Polyethylene Glycol (Polyethylene Glycol 3350 17 Gm Powd.Pack) 17 gm PO DAILY PRN PRN Reason: Constipation Last Admin: 11/28/24 17:12 Dose: 17 gm Documented By: SANDRA Sodium Chloride (0.9 % Sodium Chloride Flush 3 Ml Syringe) 3 ml IVFLUSH QSHIFT [facility] Last Admin: 12/02/24 09:27 Dose: 3 ml Documented By: MAEVEOTPAT Labs 12/01/24 07:01 12/01/24 07:01 Microbiology Microbiology Results: Microbiology 11/30/24 09:18 Blood Culture - Preliminary Blood - Venous No growth after 24 hours. 11/30/24 09:18 Blood Culture - Preliminary Blood - Venous No growth after 24 hours. Assessment and Plan (1) Dysphagia: Status: Acute Plan 54F PMH hypertension, hyperlipidemia, cardiomyopathy (s/p AICD), and COPD, admitted for elective right carotid endarterectomy on 11/22/2024. The procedure was complicated by carotid dissection and hematoma, leading to airway compression and need for intubation and left hemiparesis. She underwent hematoma evacuation on 11/23/2024 but remained intubated due to persistent airway edema. Treated with systemic glucocorticoids and diuretics, she showed improvement and was uneventfully extubated on 11/29/2024. Post-extubation, she exhibited signs of silent aspiration with minimal oxygen requirements. now downgraded to medical floor 11/30/24 right CEA complicated by hematoma and left hemiparesis, acute hypoxic respiratory failure [employer]GET[employer] rec NPO for now mri reporting right fronto-temporal stroke on IVF fluids for now Vascular surgery following holding her PO home medications Consider PEG tube placement for nutrition Surgery team consulted acute on chronic systolic chf hold on IV lasix possible aspiration pneumonia\pneumoitis empiric unasyn DVT PPx Heparin Thank you for the consult will continue to follow the patient with you Quality Stroke Does the patient have a stroke diagnosis?: Yes Reason for No Anti-thrombotic by Day Two: Contraindicated VTE Prior VTE?: No VTE Risk Level:: Medical - moderate - high VTE Device Contraindication: N/A - Device Ordered VTE Drug Contraindication: Treatment Not Tolerated
--- NOTE | 2024-12-02 11:33 | PM.CNGS ---
History of Present Illness Consult details Consult date: 12/02/24 Narrative: 54 year female referred for PEG tube placement . She had undergone right carotid endarterectomy for carotid artery disease last November 22, 2024. She was brought back to the OR later that night because of signs of a postoperative stroke. There was note of what appeared to be occlusion of the distal carotid intracranially. She was therefore brought back to the ICU postoperatively but she had to be intubated again the following day because of hypotension and respiratory distress. She was brought back to the OR because of a postop hematoma on the right neck She has had left-sided paraplegia since that time. She was in the ICU and remained intubated. She was transferred to the telemetry unit yesterday She is noted to have signs of silent aspiration likely secondary to dysphagia in view of her postop stroke I was therefore requested to place a PEG tube for nutrition. The patient though awake, does not seem to verbally communicate. Review of Systems Review of Systems: Yes Unobtainable due to mental condition Constitutional: Constitutional: Denies chills and Denies fever(s) [facility] Past Medical History Medical History (Updated 12/03/24 @ 13:34 by Ike Babin MD) Dysphagia Hx of radiation therapy Habitual snoring Cough On beta yamini at home Pacemaker Cardiac resynchronization therapy defibrillator ([employer]DITIONER-D) in place (~06/2023) LBBB (left bundle branch block) NICM (nonischemic cardiomyopathy) Invasive ductal carcinoma of left breast (~02/2022) Anemia COPD (chronic obstructive pulmonary disease) Hypercholesteremia Bipolar 1 disorder Hypertension Family History Family History Maternal Aunt Lupus Mother Breast cancer Surgical History Surgical History History of cardiac defibrillator placement (~2022) History of cardiac cath (~2021) History of foot surgery (~2006) History of left breast biopsy (~2021) History of lumpectomy of left breast (~2021) History of hysterectomy (~2021) Social History Social History Household Members: None Housing: Apartment Are you a primary healthcare sales representative to a significant other at home: No Do you presently have visiting nurse or other home services: Yes (INSURANCE CLERK) Alcohol intake: never Patient Tobacco Use Status: Former Tobacco user Tobacco use type: Cigarette service: No 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al status: disabled 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 Meds Allergies Allergy/AdvReac Type Severity Reaction Status Date / Time lisinopril Allergy Cough Verified 11/01/24 15:46 ham Allergy hives Uncoded 11/01/24 15:46 Active Medications: Current Medications Chlorhexidine Gluconate (Chlorhexidine Gluc Oral Rinse 15 Ml Mouthwash) 15 ml BUCCAL TID [facility] Last Admin: 12/02/24 09:26 Dose: 15 ml Furosemide (Furosemide 20 Mg/2 Ml Vial) 40 mg IVPUSH Q24H [facility]; Protocol Last Admin: 12/01/24 16:45 Dose: 40 mg Heparin Sodium (Porcine) (Heparin Sodium,Porcine 5,000 Unit/Ml Vial) 5,000 unit SUBCUT Q8H [facility] Last Admin: 12/02/24 09:26 Dose: 5,000 unit Ampicillin Sodium/Sulbactam (Sodium 3 gm/ Sodium Chloride) 100 mls @ 200 mls/hr IV Q8H [facility] Last Infusion: 12/02/24 10:02 Dose: Infused Dextrose/Lactated Ringer's (D5lr) 1,000 mls @ 100 mls/hr IVCONT .Q10H [facility] Last Admin: 12/02/24 05:10 Dose: 100 mls/hr Morphine Sulfate (Morphine Sulfate 2 Mg/Ml Cartridge) 1 mg IVPUSH Q3H PRN; Protocol PRN Reason: Pain, Moderate(Pain Scale 4-6) Last Admin: 12/02/24 05:48 Dose: 1 mg Pantoprazole Sodium (Pantoprazole Sodium 40 Mg/10 Ml Vial) 40 mg IVPUSH DAILY@0630 [facility] Last Admin: 12/02/24 05:49 Dose: 40 mg Polyethylene Glycol (Polyethylene Glycol 3350 17 Gm Powd.Pack) 17 gm PO DAILY PRN PRN Reason: Constipation Last Admin: 11/28/24 17:12 Dose: 17 gm Sodium Chloride (0.9 % Sodium Chloride Flush 3 Ml Syringe) 3 ml IVFLUSH QSHIFT [facility] Last Admin: 12/02/24 09:27 Dose: 3 ml Home Medications ?Medication ?Instructions ?Recorded ?Confirmed ?Last Taken ?Type atorvastatin 80 mg tablet 80 mg PO DAILY 07/30/22 11/22/24 11/22/24 History ferrous sulfate 325 mg (65 mg 325 mg PO DAILY 07/30/22 11/22/24 11/21/24 History iron) tablet (FeroSul) pantoprazole 40 mg tablet,delayed 40 mg PO DAILY@0630 07/30/22 11/22/24 11/21/24 History release cholecalciferol (vitamin D3) 50 50 mcg PO DAILY 10/30/22 11/22/24 11/21/24 History mcg (2,000 unit) capsule (Vitamin D3) montelukast 10 mg tablet 10 mg PO BEDTIME 11/15/24 11/22/24 11/21/24 History omega 7-bpd-qkg-fish oil 60 mg-90 1 cap PO DAILY 11/15/24 11/22/24 11/21/24 History mg-500 mg capsule sertraline 50 mg tablet 50 mg PO DAILY 11/15/24 11/22/24 Unknown History albuterol sulfate 90 mcg/actuation 2 inh inhalation Q6H PRN Shortness 11/22/24 11/22/24 Unknown History aerosol inhaler (Ventolin HFA) Of Breath Or Wheezing ascorbic acid (vitamin C) 250 mg 250 mg PO DAILY 11/22/24 11/22/24 11/21/24 History tablet aspirin 81 mg tablet,delayed 81 mg PO DAILY 11/22/24 11/22/24 11/21/24 History release cetirizine 10 mg tablet 10 mg PO DAILY PRN Allergy Symptoms 11/22/24 11/22/24 Unknown History Physical Exam Vital Signs: Vital Signs: Last Vital Signs Temp 97.9 F 12/02/24 11:07 Pulse 60 12/02/24 11:07 Resp 20 12/02/24 11:07 BP 152/68 H 12/02/24 11:07 Pulse Ox 100 12/02/24 11:07 O2 Del Method Aerosol Mask 12/02/24 11:07 O2 Flow Rate 10 12/02/24 11:07 FiO2 30 12/02/24 11:07 Oxygen Flow Rate 30 11/23/24 12:46 BMI result Body Mass Index 33.7 Const: Other: Awake, eyes open spontaneously, slightly short of breath Resp: Other: Slightly short of breath, with some audible secretions in the oropharynx Cardio: Rate: regular rate GI: Other: No obvious surgical scars on the abdomen Palpation (GI): Soft to palpation, not firm and no guarding Neuro: Other: Left-sided hemiplegia Results Labs 12/03/24 06:20 12/03/24 12:25 Labs: All other labs normal. Assessment and Plan (1) Dysphagia: Status: Acute She is showing signs of silent aspiration secondary to dysphagia because of her postoperative stroke. I will explained the option of proceeding with PEG tube placement with her family. I have reviewed her previous imaging studies with her CT of the chest and this shows a good window to access the anterior stomach wall from the left upper quadrant. She does have a very thick amount of subcutaneous fat on the abdominal wall. Procedures Date of Service Date of Service: 12/03/24
--- NOTE | 2024-12-02 13:38 | MHC.SLORD ---
Speech Language Pathology Order Status: Attempted X2 to see patient for repeat swallow, patient sleeping, difficult to rouse, had poor sleep last night per RN due to agitation. Not appropirate for assessment today. MD/RD notified of continued NPO status by secure text. Patient pending PEG placement per chart.
[2024-12-03] VITALS (8 sets, daily range): BP systolic 132–171; BP diastolic 61–80; PULSE 60–68; RESP 16–20; TEMP 36.1–36.4; O2SAT 98–100; BMI 33.7
[2024-12-03] MEDS: Heparin Sodium,Porcine 5,000 UNIT/ML VIAL 5000 UNIT SUBCUT ×3 (00:26→15:45)
[2024-12-03] MEDS: Ampicillin Sodium/Sulbactam Na 3 GM in 0.9 % Sodium Chloride 100 ML IV ×3 (00:26→15:45)
[2024-12-03] MEDS: 0.9 % Sodium Chloride Flush 3 ML SYRINGE IVFLUSH ×2 (00:27→15:45)
--- NOTE | 2024-12-03 04:20 | PC.RT ---
Patient removed nasal trumpet. Patient was able to cough and was suctioned orally with yankour. Nasal trumpet will be replaced. Currently letting nares rest to prevent skin breakdown as it was difficult to place and previously had been unable to be rotated.
[2024-12-03] MEDS: Ketorolac Tromethamine 15 MG/ML VIAL IVPUSH (04:48)
[2024-12-03] MEDS: Pantoprazole Sodium 40 MG/10 ML VIAL IVPUSH (04:50)
[2024-12-03 06:53] LABS: MANUAL DIFF FLAG NO
[2024-12-03 07:02] LABS: Basophils Percent Auto 0.2 % (0-2); Eosinophils Absolute Auto 0.2 X10*3/uL (0.0-0.4); Eosinophils Percent Auto 2.3 % (0-4); Hemoglobin 9.7 g/dl (12.0-16.0); Imm Gran Abs Auto 0.33 X10*3/uL (0.00-0.03); Imm Gran Pct Auto 3.8 % (0.0-0.4); Lymphocytes Absolute Auto 1.4 X10*3/uL (1.2-4.9); Lymphocytes Percent Auto 15.5 % (20-40); Mean Corpuscular HGB Conc 32.3 g/dl (31.0-35.0); Mean Corpuscular Hemoglobin 28.5 pg (27.0-33.0); Mean Corpuscular Volume 88.2 fL (80.0-98.0); Mean Platelet Volume 9.3 fL (9.4-12.3); Monocytes Absolute Auto 0.8 X10*3/uL (0.1-1.2); Monocytes Percent Auto 8.5 % (2-11); Neutrophils Absolute Auto 6.1 x10*3/uL (2.0-8.3); Neutrophils Percent Auto 69.7 % (45-73); Platelet Count 303 X10*3/uL (160-400); Red Cell Distribution Width 13.3 % (11.0-16.0); White Blood Count 8.8 X10*3/uL (4.8-10.8)
[2024-12-03 07:17] LABS: Anion Gap 13 (12-20); Blood Urea Nitrogen 28 mg/dL (9-16); Calcium 9.1 mg/dL (8.4-10.2); Carbon Dioxide 24 mmol/L (22-29); Chloride 115 mmol/L (96-108); Creatinine Clr Calc Pharmacy 100.6; Estimated Glomerular Filt Rate > 60; Glucose Random 125 mg/dL (60-115); Potassium 3.9 mmol/L (3.3-5.1); Sodium 148 mmol/L (135-145)
[2024-12-03] MEDS: Dextrose 5 % 1,000 ML 125 ML IVCONT ×2 (08:07→15:45)
[2024-12-03] MEDS: Chlorhexidine Gluc Oral Rinse 15 ML MOUTHWASH BUCCAL ×2 (08:12→15:45)
--- NOTE | 2024-12-03 10:32 | HO.VASCPN ---
Subjective Subjective Date of Service: 12/03/24 Patient reports: no new complaints Interval history: 54-year-old female status post carotid endarterectomy. Postoperatively carotid occluded and subsequent stroke. Appears to be doing a little better today a little bit more responsive. Oxygen requirements have increased a little bit and is requiring 10 L. in general appears to be doing somewhat better. Still has left hema-neglect. Has been receiving care with physical therapy. Physical Exam Vital Signs: Vital Signs: Last Vital Signs Temp 97.6 F 12/03/24 07:40 Pulse 60 12/03/24 09:48 Resp 20 12/03/24 07:40 BP 169/80 H 12/03/24 09:48 Pulse Ox 99 12/03/24 09:48 O2 Del Method Oxymask 12/03/24 07:40 O2 Flow Rate 10 12/03/24 07:40 FiO2 21 12/03/24 02:51 Oxygen Flow Rate 30 11/23/24 12:46 BMI result Body Mass Index 33.7 Const: General: cooperative and comfortable HEENT: Head: Yes normal to inspection Neck: Neck: Yes normal visual inspection Carotids: no bruits Chest: Chest palpation & inspection: normal inspection of the chest Resp: Effort & Inspection: normal respiratory effort and able to speak in complete sentences Auscultation: clear to auscultation bilaterally, no crackles, no rales, no rhonchi and no wheezes Cardio: Rate: regular rate Rhythm: regular rhythm Heart sounds: S1 normal heart sound present and S2 normal heart sound present Bruits: no carotid bruits Peripheral pulses: Peripheral pulses 2+ throughout GI: Inspection: Yes normal to inspection Skin: Wounds: no wounds Hair: normal Neuro: Cranial nerves: Yes CN's II-XII intact bilaterally and Yes Normal hearing present Cognition (Neuro): normal cognition Motor exam (neuro): 5/5 motor strength present throughout Extrem: Other: venous exam: No significant superficial varicosities or spider telangiectasias, minimal edema General: No clubbing, No cyanosis and No edema Psych: Appearance: grossly normal Mental Status: mental status grossly normal Speech and movement: Normal speech and movement present Progress Note: A&P Assessment and plan (1) Carotid stenosis, right: Status: Acute Assessment and Plan: In short patient is status post carotid endarterectomy with stroke. Unfortunately she is unable to pass swallow evaluation. Will plan for PEG placement by General surgery for Friday. In addition may require additional pulmonary toilet. Will move her up to a chair if tolerated. Continue to work with physical therapy as tolerated. I did leave a message with the Kailey to reach back out to us for an update of her overall condition. Thank you to the hospitalist team for their assistance in her care. If there are any questions or concerns please do not hesitate to reach out. Time Spent With Patient Time: Total time managing care of this patient today ____ minutes. Procedures Date of Service Date of Service: 12/03/24 Quality Stroke Does the patient have a stroke diagnosis?: Yes Reason for No Anti-thrombotic by Day Two: Contraindicated VTE Prior VTE?: No VTE Risk Level:: Medical - moderate - high VTE Device Contraindication: N/A - Device Ordered VTE Drug Contraindication: Treatment Not Tolerated
--- NOTE | 2024-12-03 10:44 | MHC.CM.PN ---
Per ROUNDS discussion, Patient is not yet medically cleared for dc (failed swallow eval/likely needs a PEG by Friday12/06/2024); PT is recommending Acute Rehab and CM will continue to follow.
--- NOTE | 2024-12-03 10:49 | PM.PNGS ---
Subjective Subjective Date of Service: 12/03/24 Interval history: No changes with regards to his status Mental status the same as well Hemodynamically stable Physical Exam Vital Signs: Vital Signs: Last Vital Signs Temp 97.6 F 12/03/24 07:40 Pulse 60 12/03/24 09:48 Resp 20 12/03/24 07:40 BP 169/80 H 12/03/24 09:48 Pulse Ox 99 12/03/24 09:48 O2 Del Method Oxymask 12/03/24 07:40 O2 Flow Rate 10 12/03/24 07:40 FiO2 21 12/03/24 02:51 Oxygen Flow Rate 30 11/23/24 12:46 BMI result Body Mass Index 33.7 Const: Other: Mild shortness of breath, some audible secretions in the oropharynx Resp: Other: Mild shortness of breath GI: Other: No surgical scars Palpation (GI): Soft to palpation and not firm Objective Data Active Medications Chlorhexidine Gluconate (Chlorhexidine Gluc Oral Rinse 15 Ml Mouthwash) 15 ml BUCCAL TID [facility] Last Admin: 12/03/24 08:12 Dose: 15 ml Documented By: NIKIA Furosemide (Furosemide 20 Mg/2 Ml Vial) 40 mg IVPUSH Q24H [facility]; Protocol Last Admin: 12/01/24 16:45 Dose: 40 mg Documented By: ERICK Heparin Sodium (Porcine) (Heparin Sodium,Porcine 5,000 Unit/Ml Vial) 5,000 unit SUBCUT Q8H [facility] Last Admin: 12/03/24 08:09 Dose: 5,000 unit Documented By: NIKIA Ampicillin Sodium/Sulbactam (Sodium 3 gm/ Sodium Chloride) 100 mls @ 200 mls/hr IV Q8H [facility] Last Infusion: 12/03/24 08:50 Dose: Infused Documented By: NIKIA Dextrose (D5w) 1,000 mls @ 125 mls/hr IVCONT .Q8H [facility] Last Admin: 12/03/24 08:07 Dose: 125 mls/hr Documented By: NIKIA Morphine Sulfate (Morphine Sulfate 2 Mg/Ml Cartridge) 1 mg IVPUSH Q3H PRN; Protocol PRN Reason: Pain, Moderate(Pain Scale 4-6) Last Admin: 12/02/24 05:48 Dose: 1 mg Documented By: KELLE Pantoprazole Sodium (Pantoprazole Sodium 40 Mg/10 Ml Vial) 40 mg IVPUSH DAILY@0630 [facility] Last Admin: 12/03/24 04:50 Dose: 40 mg Documented By: CHUCHO Polyethylene Glycol (Polyethylene Glycol 3350 17 Gm Powd.Pack) 17 gm PO DAILY PRN PRN Reason: Constipation Last Admin: 11/28/24 17:12 Dose: 17 gm Documented By: SANDRA Sodium Chloride (0.9 % Sodium Chloride Flush 3 Ml Syringe) 3 ml IVFLUSH QSHIFT [facility] Last Admin: 12/03/24 08:09 Dose: Not Given Documented By: NIKIA Non-Admin Reason: IV Running Labs 12/03/24 06:20 12/03/24 12:25 Labs: Laboratory Results - last 24 hr 12/03/24 12/03/24 06:20 06:40 MCV 88.2 MCH 28.5 MCHC 32.3 RDW 13.3 Plt Count 303 MPV 9.3 L Immature Gran % (Auto) 3.8 H Neut % (Auto) 69.7 Lymph % (Auto) 15.5 L [place] % (Auto) 8.5 Eos % (Auto) 2.3 Baso % (Auto) 0.2 Lymph # (Auto) 1.4 [place] # (Auto) 0.8 Eos # (Auto) 0.2 Baso # (Auto) 0.0 Abs Immat Gran (auto) 0.33 H Absolute Neuts (auto) 6.1 Absolute Nucleated RBC 0.000 Nucleated RBC % (auto) 0.0 Anion Gap 13 Estim Creat Clear Calc 100.6 Estimated GFR > 60 Random Glucose 125 H Calcium 9.1 Microbiology Microbiology Results: Microbiology 11/30/24 09:18 Blood Culture - Preliminary Blood - Venous No growth after 48 hours. 11/30/24 09:18 Blood Culture - Preliminary Blood - Venous No growth after 48 hours. Procedures Date of Service Date of Service: 12/03/24 Progress Note: A&P Assessment and plan (1) Dysphagia: Status: Acute Assessment and Plan: She has had dysphagia after perioperatively CVA for carotid disease I have therefore been asked to put in a PEG tube I had a long discussion with Kailey, her health care proxy about the technique of this procedure I explained the risks including but not limited to bleeding, infections, injury to other organs including bowel, tube leak, tube dislodgement, perioperative strokes, as well as the benefits and alternatives She says she will talk to the rest of the family about this and will let me know on Friday Time Spent With Patient Time: Total time managing care of this patient today ____ minutes. Quality Stroke Does the patient have a stroke diagnosis?: Yes Reason for No Anti-thrombotic by Day Two: Contraindicated VTE Prior VTE?: No VTE Risk Level:: Medical - moderate - high VTE Device Contraindication: N/A - Device Ordered VTE Drug Contraindication: Treatment Not Tolerated
--- NOTE | 2024-12-03 12:15 | MHC.SL.SWA ---
Speech Pathologist Impression: Moderate to severe oropharyngeal dysphagia, risk of aspiration Risk of Aspiration Due to: Lethargy Medically Fragile Dysphasia Diet Status:No change Liquid Consistency and Strategies for Safe Swallow: Liquid Intake Recommendation: NPO Solid Food Consistency: Dietary Recommendations: NPO Additional Modifications to Solid Foods: Patient reportedly scheduled for PEG placement Wednesday 12/06. Oral Medication Intake: NPO Please contact the pharmacy regarding appropriate crushable or liquid drug formulations that are available whenever modified delivery is recommended. Supervision While Eating and Drinking for Safe Swallow: PO with CAUSTIC LOADER Swallowing Recommended Treatments: Thermal Stimulation Gustatory Stimulation Recommendation for Speech: Inpatient Speech Therapy Deal Architect Clinican/Clinical Fellow: No Supervisory Statement: I have reviewed and agree with the student/clinical fellow's documentation: N/A Speech Language Pathologist: Alysha Thorne M.A., CCC-CAUSTIC LOADER
--- NOTE | 2024-12-03 12:21 | MHC.CLN ---
PT UNABLE TO MEET NUTRITION NEEDS R/T DYSPHAGIA S/P CVA AND REQUIRES PPN FOR NUTRITION SUPPORT PT IS DAY [address] PEG TUBE ON WEDNESDAY 12/06 NOTED PT RECEIVING D5W IVF PROVIDES 170KCALS REVIEWED LABS DISCUSSED WITH PHARMACY 12/03/24 RECOMMEND PPN AT 60ML/HR TO PROVIDE 734KCALS, 144G DEXTROSE, 61G PROTEIN REPLETE LYTES NEEDED 12/04/24 RECOMMEND INCREASING PPN TO 80ML/HR TO PROVIDE 979KCALS, 192G DEXTROSE, 82G PROTEIN (1.5G/KG) REPLETE LYTES NEEDED; CHECK TRIGS 12/05/24 RECOMMEND CONTINUE PPN AT MAX GOAL RATE 80ML/HR AND ADD 27G LIPIDS TO PROVIDE 1249 TOTAL KCALS (23KCALS/KG), 192G DEXTROSE, 82G PROTEIN (1.5G/KG) REPLETE LYTES NEEDED SEE ALSO FULL CLINICAL NUTRITION ASSESSMENT RD CAN BE REACHED VIA TIGER CONNECT DURING OFF HOURS IF NEEDED
[2024-12-03 12:53] LABS: Anion Gap 15 (12-20); Blood Urea Nitrogen 24 mg/dL (9-16); Calcium 9.4 mg/dL (8.4-10.2); Carbon Dioxide 26 mmol/L (22-29); Chloride 110 mmol/L (96-108); Creatinine Clr Calc Pharmacy 112.2; Estimated Glomerular Filt Rate > 60; Glucose Random 122 mg/dL (60-115); Magnesium 2.3 mg/dL (1.6-2.6); Phosphorus 2.3 mg/dL (2.7-4.5); Potassium 3.6 mmol/L (3.3-5.1); Sodium 147 mmol/L (135-145); Triglycerides 226 mg/dL (<150)
--- NOTE | 2024-12-03 13:31 | HO.PM.IMPN ---
Subjective Subjective Date of Service: 12/03/24 Interval History: Seen and evaluated this morning Left sided flaccid dialysis , more alert and interactive today Failed swallow eval , NPO looks frail and deconditioned Review of Systems Review of Systems: Yes Unobtainable due to mental condition Physical Exam Vital Signs: Vital Signs: Last Vital Signs Temp 97.0 F 12/03/24 11:21 Pulse 60 12/03/24 11:21 Resp 20 12/03/24 11:21 BP 169/77 H 12/03/24 11:21 Pulse Ox 98 12/03/24 11:21 O2 Del Method Oxymizer 12/03/24 11:21 O2 Flow Rate 10 12/03/24 11:21 FiO2 21 12/03/24 02:51 Oxygen Flow Rate 30 11/23/24 12:46 BMI result Body Mass Index 33.7 Const: Other: Constitutional : Awake, interactive, not in distress Neck : Normal inspection, Supple, wound covered with dressing Cardiovascular : RRR, no JVP, no lower extremity edema Respiratory : decreased bilateral air entry, basal fine crackles, no wheezes , On O2 supplement Gastrointestinal: soft, lax, Normal bowel sounds, Non tender Skin : Warm, Dry Neurological : Alert & oriented to self and place, left sided flaccid hemiplegia, neglect, mild facial droop Objective Data Active Medications Chlorhexidine Gluconate (Chlorhexidine Gluc Oral Rinse 15 Ml Mouthwash) 15 ml BUCCAL TID [facility] Last Admin: 12/03/24 08:12 Dose: 15 ml Documented By: NIKIA Furosemide (Furosemide 20 Mg/2 Ml Vial) 40 mg IVPUSH Q24H [facility]; Protocol Last Admin: 12/01/24 16:45 Dose: 40 mg Documented By: ERICK Heparin Sodium (Porcine) (Heparin Sodium,Porcine 5,000 Unit/Ml Vial) 5,000 unit SUBCUT Q8H [facility] Last Admin: 12/03/24 08:09 Dose: 5,000 unit Documented By: NIKIA Ampicillin Sodium/Sulbactam (Sodium 3 gm/ Sodium Chloride) 100 mls @ 200 mls/hr IV Q8H [facility] Last Infusion: 12/03/24 08:50 Dose: Infused Documented By: NIKIA Dextrose (D5w) 1,000 mls @ 125 mls/hr IVCONT .Q8H [facility] Last Admin: 12/03/24 08:07 Dose: 125 mls/hr Documented By: NIKIA Nutrition (Parenteral) (Parenteral Nutrition) 1,440 mls @ 60 mls/hr IV .Q24H [facility]; Protocol Stop: 12/04/24 20:59 Morphine Sulfate (Morphine Sulfate 2 Mg/Ml Cartridge) 1 mg IVPUSH Q3H PRN; Protocol PRN Reason: Pain, Moderate(Pain Scale 4-6) Last Admin: 12/02/24 05:48 Dose: 1 mg Documented By: KELLE Pantoprazole Sodium (Pantoprazole Sodium 40 Mg/10 Ml Vial) 40 mg IVPUSH DAILY@0630 [facility] Last Admin: 12/03/24 04:50 Dose: 40 mg Documented By: CHUCHO Pharmacy Consult (Consult Rx Parenteral Nutrition Ordering) 1 each MISCELLANE DAILY PRN PRN Reason: Consult order Polyethylene Glycol (Polyethylene Glycol 3350 17 Gm Powd.Pack) 17 gm PO DAILY PRN PRN Reason: Constipation Last Admin: 11/28/24 17:12 Dose: 17 gm Documented By: SANDRA Sodium Chloride (0.9 % Sodium Chloride Flush 3 Ml Syringe) 3 ml IVFLUSH QSHIFT [facility] Last Admin: 12/03/24 08:09 Dose: Not Given Documented By: NIKIA Non-Admin Reason: IV Running Labs 12/03/24 06:20 12/03/24 12:25 Labs: Laboratory Results - last 24 hr 12/03/24 12/03/24 12/03/24 06:20 06:40 12:25 MCV 88.2 MCH 28.5 MCHC 32.3 RDW 13.3 Plt Count 303 MPV 9.3 L Immature Gran % (Auto) 3.8 H Neut % (Auto) 69.7 Lymph % (Auto) 15.5 L [place] % (Auto) 8.5 Eos % (Auto) 2.3 Baso % (Auto) 0.2 Lymph # (Auto) 1.4 [place] # (Auto) 0.8 Eos # (Auto) 0.2 Baso # (Auto) 0.0 Abs Immat Gran (auto) 0.33 H Absolute Neuts (auto) 6.1 Absolute Nucleated RBC 0.000 Nucleated RBC % (auto) 0.0 Anion Gap 13 15 Estim Creat Clear Calc 100.6 112.2 Estimated GFR > 60 > 60 Random Glucose 125 H 122 H Calcium 9.1 9.4 Phosphorus 2.3 L Magnesium 2.3 Triglycerides 226 H Microbiology Microbiology Results: Microbiology 11/30/24 09:18 Blood Culture - Preliminary Blood - Venous No growth after 48 hours. 11/30/24 09:18 Blood Culture - Preliminary Blood - Venous No growth after 48 hours. Assessment and Plan (1) Acute hypernatremia: Status: Acute Plan 54F PMH hypertension, hyperlipidemia, cardiomyopathy (s/p AICD), and COPD, admitted for elective right carotid endarterectomy on 11/22/2024. The procedure was complicated by carotid dissection and hematoma, leading to airway compression and need for intubation and left hemiparesis. She underwent hematoma evacuation on 11/23/2024 but remained intubated due to persistent airway edema. Treated with systemic glucocorticoids and diuretics, she showed improvement and was uneventfully extubated on 11/29/2024. Post-extubation, she exhibited signs of silent aspiration with minimal oxygen requirements. now downgraded to medical floor 11/30/24 right CEA complicated by hematoma and left hemiparesis, acute hypoxic respiratory failure and acute stroke mri reporting right fronto-temporal stroke RETAIL FINANCIAL ANALYST rec NPO for now on IVF fluids for now holding PO home medications Consider PEG tube placement for nutrition by Friday, Surgery following Start PPN for now, place midline acute Hypernatremia switch to D5W follow BMP acute on chronic systolic chf stable possible aspiration pneumonia\pneumoitis empiric unasyn DVT PPx Heparin Thank you for the consult will continue to follow the patient with you Quality Stroke Does the patient have a stroke diagnosis?: Yes Reason for No Anti-thrombotic by Day Two: Contraindicated VTE Prior VTE?: No VTE Risk Level:: Medical - moderate - high VTE Device Contraindication: N/A - Device Ordered VTE Drug Contraindication: Treatment Not Tolerated
[2024-12-03] MEDS: Parenteral Nutrition 1,440 ML 60 ML IV (21:30)
[2024-12-04] VITALS (7 sets, daily range): BP systolic 128–171; BP diastolic 58–104; PULSE 67–86; RESP 14–19; TEMP 36–36.6; O2SAT 96–100
[2024-12-04] MEDS: Heparin Sodium,Porcine 5,000 UNIT/ML VIAL 5000 UNIT SUBCUT ×3 (01:00→17:14)
[2024-12-04] MEDS: Ampicillin Sodium/Sulbactam Na 3 GM in 0.9 % Sodium Chloride 100 ML IV ×3 (01:15→17:14)
[2024-12-04] MEDS: 0.9 % Sodium Chloride Flush 3 ML SYRINGE IVFLUSH ×3 (01:27→17:14)
[2024-12-04] MEDS: Dextrose 5 % 1,000 ML 125 ML IVCONT (02:14)
--- NOTE | 2024-12-04 04:50 | PC.NURSE ---
Pt. Peripheral/PPN started at 2129. Pt. has D5W at 125ml/hr currently infusing via pt's 1 IV access/US guided left arm IV. D5W paused and Dr. Barone was notified. Unable to obtain IV access, ICU able to obtain a 2nd US guided IV RUE and D5W was resumed at 0214.
[2024-12-04 08:29] LABS: MANUAL DIFF FLAG NO
[2024-12-04 08:32] LABS: Basophils Percent Auto 0.3 % (0-2); Eosinophils Absolute Auto 0.2 X10*3/uL (0.0-0.4); Eosinophils Percent Auto 2.4 % (0-4); Hematocrit 32.1 % (37.0-47.0); Hemoglobin 10.7 g/dl (12.0-16.0); Imm Gran Abs Auto 0.39 X10*3/uL (0.00-0.03); Imm Gran Pct Auto 4.3 % (0.0-0.4); Lymphocytes Absolute Auto 1.1 X10*3/uL (1.2-4.9); Lymphocytes Percent Auto 11.8 % (20-40); Mean Corpuscular HGB Conc 33.3 g/dl (31.0-35.0); Mean Corpuscular Hemoglobin 28.8 pg (27.0-33.0); Mean Corpuscular Volume 86.3 fL (80.0-98.0); Mean Platelet Volume 9.6 fL (9.4-12.3); Monocytes Absolute Auto 0.5 X10*3/uL (0.1-1.2); Monocytes Percent Auto 5.8 % (2-11); Neutrophils Absolute Auto 6.9 x10*3/uL (2.0-8.3); Neutrophils Percent Auto 75.4 % (45-73); Platelet Count 258 X10*3/uL (160-400); Red Blood Count 3.72 X10*6/uL (4.20-5.50); Red Cell Distribution Width 12.6 % (11.0-16.0); White Blood Count 9.1 X10*3/uL (4.8-10.8)
[2024-12-04 08:48] LABS: Anion Gap 12 (12-20); Blood Urea Nitrogen 14 mg/dL (9-16); Calcium 9.3 mg/dL (8.4-10.2); Carbon Dioxide 26 mmol/L (22-29); Chloride 106 mmol/L (96-108); Creatinine Clr Calc Pharmacy 108.1; Estimated Glomerular Filt Rate > 60; Glucose Random 140 mg/dL (60-115); Phosphorus 3.1 mg/dL (2.7-4.5); Potassium 3.4 mmol/L (3.3-5.1); Sodium 141 mmol/L (135-145)
[2024-12-04] MEDS: Pantoprazole Sodium 40 MG/10 ML VIAL IVPUSH (10:47)
[2024-12-04] MEDS: Chlorhexidine Gluc Oral Rinse 15 ML MOUTHWASH BUCCAL ×4 (10:47→21:28)
--- NOTE | 2024-12-04 14:29 | HO.PM.IMPN ---
Subjective Subjective Date of Service: 12/04/24 Interval History: Seen and evaluated this morning Left sided flaccid dialysis , more alert and interactive today, sitting in chair Failed swallow eval , NPO looks frail and deconditioned Review of Systems Review of Systems: Yes Unobtainable due to mental condition Physical Exam Vital Signs: Vital Signs: Last Vital Signs Temp 96.8 F 12/04/24 11:47 Pulse 75 12/04/24 11:47 Resp 18 12/04/24 11:47 BP 134/84 12/04/24 11:47 Pulse Ox 100 12/04/24 11:47 O2 Del Method Aerosol Mask 12/04/24 11:47 O2 Flow Rate 5 12/04/24 11:47 FiO2 28 12/04/24 11:47 Oxygen Flow Rate 30 11/23/24 12:46 BMI result Body Mass Index 33.7 Const: Other: Constitutional : Awake, interactive, not in distress Neck : Normal inspection, Supple, wound covered with dressing Cardiovascular : RRR, no JVP, no lower extremity edema Respiratory : decreased bilateral air entry, basal fine crackles, no wheezes , On O2 supplement Gastrointestinal: soft, lax, Normal bowel sounds, Non tender Skin : Warm, Dry Neurological : Alert & oriented to self and place, left sided flaccid hemiplegia, neglect, mild facial droop Objective Data Active Medications Chlorhexidine Gluconate (Chlorhexidine Gluc Oral Rinse 15 Ml Mouthwash) 15 ml BUCCAL TID [facility] Last Admin: 12/04/24 10:47 Dose: 15 ml Documented By: DERRELL Furosemide (Furosemide 20 Mg/2 Ml Vial) 40 mg IVPUSH Q24H [facility]; Protocol Last Admin: 12/01/24 16:45 Dose: 40 mg Documented By: ERICK Heparin Sodium (Porcine) (Heparin Sodium,Porcine 5,000 Unit/Ml Vial) 5,000 unit SUBCUT Q8H [facility] Last Admin: 12/04/24 10:47 Dose: 5,000 unit Documented By: DERRELL Ampicillin Sodium/Sulbactam (Sodium 3 gm/ Sodium Chloride) 100 mls @ 200 mls/hr IV Q8H [facility] Last Infusion: 12/04/24 11:20 Dose: Infused Documented By: DERRELL Nutrition (Parenteral) (Parenteral Nutrition) 1,440 mls @ 60 mls/hr IV .Q24H [facility]; Protocol Stop: 12/04/24 20:59 Last Admin: 12/03/24 21:30 Dose: 60 mls/hr Documented By: KEMI Nutrition (Parenteral) (Parenteral Nutrition) 1,920 mls @ 80 mls/hr IV .Q24H [facility]; Protocol Stop: 12/05/24 20:59 Morphine Sulfate (Morphine Sulfate 2 Mg/Ml Cartridge) 1 mg IVPUSH Q3H PRN; Protocol PRN Reason: Pain, Moderate(Pain Scale 4-6) Last Admin: 12/02/24 05:48 Dose: 1 mg Documented By: KELLE Pantoprazole Sodium (Pantoprazole Sodium 40 Mg/10 Ml Vial) 40 mg IVPUSH DAILY@0630 [facility] Last Admin: 12/04/24 10:47 Dose: 40 mg Documented By: DERRELL Pharmacy Consult (Consult Rx Parenteral Nutrition Ordering) 1 each MISCELLANE DAILY PRN PRN Reason: Consult order Polyethylene Glycol (Polyethylene Glycol 3350 17 Gm Powd.Pack) 17 gm PO DAILY PRN PRN Reason: Constipation Last Admin: 11/28/24 17:12 Dose: 17 gm Documented By: SANDRA Sodium Chloride (0.9 % Sodium Chloride Flush 3 Ml Syringe) [facility] Last Admin: 12/04/24 10:47 Dose: 3 ml Documented By: DERRELL Labs 12/04/24 08:21 12/04/24 08:21 Labs: Laboratory Results - last 24 hr 12/04/24 08:21 MCV 86.3 MCH 28.8 MCHC 33.3 RDW 12.6 Plt Count 258 MPV 9.6 Immature Gran % (Auto) 4.3 H Neut % (Auto) 75.4 H Lymph % (Auto) 11.8 L [place] % (Auto) 5.8 Eos % (Auto) 2.4 Baso % (Auto) 0.3 Lymph # (Auto) 1.1 L [place] # (Auto) 0.5 Eos # (Auto) 0.2 Baso # (Auto) 0.0 Abs Immat Gran (auto) 0.39 H Absolute Neuts (auto) 6.9 Absolute Nucleated RBC 0.000 Nucleated RBC % (auto) 0.0 Anion Gap 12 Estim Creat Clear Calc 108.1 Estimated GFR > 60 Random Glucose 140 H Calcium 9.3 Phosphorus 3.1 Assessment and Plan (1) Acute hypernatremia: Status: Acute (2) Dysphagia: Status: Acute (3) Stroke: Status: Acute Plan 54F PMH hypertension, hyperlipidemia, cardiomyopathy (s/p AICD), and COPD, admitted for elective right carotid endarterectomy on 11/22/2024. The procedure was complicated by carotid dissection and hematoma, leading to airway compression and need for intubation and left hemiparesis. She underwent hematoma evacuation on 11/23/2024 but remained intubated due to persistent airway edema. Treated with systemic glucocorticoids and diuretics, she showed improvement and was uneventfully extubated on 11/29/2024. Post-extubation, she exhibited signs of silent aspiration with minimal oxygen requirements. 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 for now on IVF fluids for now holding PO home medications PEG tube placement for nutrition by Friday, Surgery following Continue PPN follow Electrolytes acute Hypernatremia corrected at 141, DC D5W follow BMP acute on chronic systolic chf stable possible aspiration pneumonia\pneumoitis empiric unasyn DVT PPx Heparin Thank you for the consult will continue to follow the patient with you Quality Stroke Does the patient have a stroke diagnosis?: Yes Reason for No Anti-thrombotic by Day Two: Contraindicated VTE Prior VTE?: No VTE Risk Level:: Medical - moderate - high VTE Device Contraindication: N/A - Device Ordered VTE Drug Contraindication: Treatment Not Tolerated
[2024-12-04] MEDS: Parenteral Nutrition 1,920 ML 80 ML IV (21:19)
[2024-12-05] MEDS: Ampicillin Sodium/Sulbactam Na 3 GM in 0.9 % Sodium Chloride 100 ML IV ×3 (00:44→18:25)
[2024-12-05] MEDS: 0.9 % Sodium Chloride Flush 3 ML SYRINGE IVFLUSH ×3 (00:44→18:25)
[2024-12-05] MEDS: Heparin Sodium,Porcine 5,000 UNIT/ML VIAL 5000 UNIT SUBCUT ×3 (00:50→18:25)
[2024-12-05 03:42] VITALS: BP 120/80; PULSE 85; RESP 16; TEMP 36.4; O2SAT 98
[2024-12-05] MEDS: Pantoprazole Sodium 40 MG/10 ML VIAL IVPUSH (06:21)
[2024-12-05 08:00] VITALS: BP 172/81; PULSE 100; RESP 19; TEMP 36.9; O2SAT 97
[2024-12-05 08:33] LABS: Anion Gap 15 (12-20); Blood Urea Nitrogen 17 mg/dL (9-16); Carbon Dioxide 21 mmol/L (22-29); Chloride 108 mmol/L (96-108); Creatinine Clr Calc Pharmacy 98.9; Estimated Glomerular Filt Rate > 60; Glucose Random 141 mg/dL (60-115); Phosphorus 3.9 mg/dL (2.7-4.5); Potassium 4.1 mmol/L (3.3-5.1); Sodium 140 mmol/L (135-145); Triglycerides 274 mg/dL (<150)
[2024-12-05] MEDS: Chlorhexidine Gluc Oral Rinse 15 ML MOUTHWASH BUCCAL (09:05)
--- NOTE | 2024-12-05 11:57 | HO.PM.IMPN ---
Subjective Subjective Date of Service: 12/05/24 Interval History: Seen and evaluated this morning more alert and interactive today speaking with clear words and has more energy still neglecant of her left side Failed swallow eval , NPO looks frail and deconditioned Review of Systems Review of Systems: Yes all other systems are reviewed and are negative Physical Exam Vital Signs: Vital Signs: Last Vital Signs Temp 98.5 F 12/05/24 08:00 Pulse 100 12/05/24 08:00 Resp 19 12/05/24 08:00 BP 172/81 H 12/05/24 08:00 Pulse Ox 97 12/05/24 08:00 O2 Del Method Aerosol Mask 12/05/24 03:42 O2 Flow Rate 5 12/05/24 03:42 FiO2 28 12/05/24 03:42 Oxygen Flow Rate 30 11/23/24 12:46 BMI result Body Mass Index 33.7 Const: Other: Constitutional : Awake, interactive, not in distress Neck : Normal inspection, Supple, wound covered with dressing Cardiovascular : RRR, no JVP, no lower extremity edema Respiratory : decreased bilateral air entry, basal fine crackles, no wheezes , On O2 supplement Gastrointestinal: soft, lax, Normal bowel sounds, Non tender Skin : Warm, Dry Neurological : Alert & oriented to self and place, left sided flaccid hemiplegia, neglect, mild facial droop Objective Data Active Medications Chlorhexidine Gluconate (Chlorhexidine Gluc Oral Rinse 15 Ml Mouthwash) 15 ml BUCCAL TID [facility] Last Admin: 12/05/24 09:05 Dose: 15 ml Documented By: DESI Furosemide (Furosemide 20 Mg/2 Ml Vial) 40 mg IVPUSH Q24H [facility]; Protocol Last Admin: 12/01/24 16:45 Dose: 40 mg Documented By: ERICK Heparin Sodium (Porcine) (Heparin Sodium,Porcine 5,000 Unit/Ml Vial) 5,000 unit SUBCUT Q8H [facility] Last Admin: 12/05/24 08:19 Dose: 5,000 unit Documented By: DESI Ampicillin Sodium/Sulbactam (Sodium 3 gm/ Sodium Chloride) 100 mls @ 200 mls/hr IV Q8H [facility] Last Infusion: 12/05/24 11:34 Dose: Infused Documented By: DESI Nutrition (Parenteral) (Parenteral Nutrition) 1,920 mls @ 80 mls/hr IV .Q24H [facility]; Protocol Stop: 12/05/24 20:59 Last Admin: 12/04/24 21:19 Dose: 80 mls/hr Documented By: KEMI Nutrition (Parenteral) (Parenteral Nutrition) 1,920 mls @ 80 mls/hr IV .Q24H [facility]; Protocol Stop: 12/06/24 20:59 Pharmacy Consult (Consult Rx Parenteral Nutrition Ordering) 1 each MISCELLANE DAILY PRN PRN Reason: Consult order Polyethylene Glycol (Polyethylene Glycol 3350 17 Gm Powd.Pack) 17 gm PO DAILY PRN PRN Reason: Constipation Last Admin: 11/28/24 17:12 Dose: 17 gm Documented By: SANDRA Sodium Chloride (0.9 % Sodium Chloride Flush 3 Ml Syringe) 3 ml IVFLUSH QSHIFT [facility] Last Admin: 12/05/24 09:01 Dose: 3 ml Documented By: NIKHILMAT Labs 12/04/24 08:21 12/05/24 07:17 Labs: Laboratory Results - last 24 hr 12/05/24 07:17 Hold Purple Top SEE NOTE Anion Gap 15 Estim Creat Clear Calc 98.9 Estimated GFR > 60 Random Glucose 141 H Calcium 10.0 D Phosphorus 3.9 Triglycerides 274 H Microbiology Microbiology Results: Microbiology 11/30/24 09:18 Blood Culture - Final Blood - Venous No growth after 5 days. 11/30/24 09:18 Blood Culture - Final Blood - Venous No growth after 5 days. Assessment and Plan (1) Stroke: Status: Acute (2) Acute hypernatremia: Status: Acute (3) Dysphagia: Status: Acute Plan 54F PMH hypertension, hyperlipidemia, cardiomyopathy (s/p AICD), and COPD, admitted for elective right carotid endarterectomy on 11/22/2024. The procedure was complicated by carotid dissection and hematoma, leading to airway compression and need for intubation and left hemiparesis. She underwent hematoma evacuation on 11/23/2024 but remained intubated due to persistent airway edema. Treated with systemic glucocorticoids and diuretics, she showed improvement and was uneventfully extubated on 11/29/2024. Post-extubation, she exhibited signs of silent aspiration with minimal oxygen requirements. 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 for now holding PO home medications PEG tube placement for nutrition by Friday, Surgery following Continue PPN follow Electrolytes to try bedside swallow eval acute Hypernatremia corrected at 141, DC D5W follow BMP acute on chronic systolic chf stable possible aspiration pneumonia\pneumoitis empiric unasyn DVT PPx Heparin Thank you for the consult will continue to follow the patient with you Quality Stroke Does the patient have a stroke diagnosis?: Yes Reason for No Anti-thrombotic by Day Two: Contraindicated VTE Prior VTE?: No VTE Risk Level:: Medical - moderate - high VTE Device Contraindication: N/A - Device Ordered VTE Drug Contraindication: Treatment Not Tolerated
[2024-12-05 12:00] VITALS: BP 143/66; PULSE 98; RESP 19; TEMP 36.9; O2SAT 94
[2024-12-05 15:39] VITALS: BP 127/79; PULSE 101; RESP 19; TEMP 36.9; O2SAT 95
--- NOTE | 2024-12-05 15:47 | PC.NURSE ---
patient left arm appears larger than previous shift, (puffy). no pitting,cool to touch.
[2024-12-05 19:32] VITALS: BP 139/63; PULSE 95; RESP 18; TEMP 36.8; O2SAT 97
[2024-12-05] MEDS: Parenteral Nutrition 1,920 ML 80 ML IV (21:30)
[2024-12-06] VITALS (9 sets, daily range): BP systolic 146–175; BP diastolic 69–109; PULSE 88–114; RESP 14–20; TEMP 36.3–37.3; O2SAT 94–100
[2024-12-06] MEDS: Heparin Sodium,Porcine 5,000 UNIT/ML VIAL 5000 UNIT SUBCUT ×3 (01:12→15:54)
[2024-12-06] MEDS: 0.9 % Sodium Chloride Flush 3 ML SYRINGE IVFLUSH ×3 (01:13→15:56)
[2024-12-06] MEDS: Ampicillin Sodium/Sulbactam Na 3 GM in 0.9 % Sodium Chloride 100 ML IV ×2 (01:13→09:25)
[2024-12-06 07:04] LABS: MANUAL DIFF FLAG NO
[2024-12-06 07:26] LABS: Albumin Level 3.9 g/dL (3.5-5.0); Anion Gap 15 (12-20); Blood Urea Nitrogen 17 mg/dL (9-16); Calcium 9.9 mg/dL (8.4-10.2); Carbon Dioxide 21 mmol/L (22-29); Chloride 108 mmol/L (96-108); Creatinine Clr Calc Pharmacy 98.9; Estimated Glomerular Filt Rate > 60; Glucose Random 100 mg/dL (60-115); Magnesium 1.9 mg/dL (1.6-2.6); Phosphorus 3.2 mg/dL (2.7-4.5); Potassium 4.2 mmol/L (3.3-5.1); Sodium 140 mmol/L (135-145)
[2024-12-06 07:44] LABS: Basophils Absolute Auto 0.1 X10*3/uL (0.0-0.2); Basophils Percent Auto 0.8 % (0-2); Eosinophils Absolute Auto 0.1 X10*3/uL (0.0-0.4); Eosinophils Percent Auto 1.8 % (0-4); Hematocrit 36.7 % (37.0-47.0); Hemoglobin 12.3 g/dl (12.0-16.0); Imm Gran Abs Auto 0.32 X10*3/uL (0.00-0.03); Lymphocytes Absolute Auto 1.3 X10*3/uL (1.2-4.9); Lymphocytes Percent Auto 16.4 % (20-40); Mean Corpuscular HGB Conc 33.5 g/dl (31.0-35.0); Mean Corpuscular Hemoglobin 28.9 pg (27.0-33.0); Mean Corpuscular Volume 86.4 fL (80.0-98.0); Mean Platelet Volume 9.8 fL (9.4-12.3); Monocytes Absolute Auto 0.7 X10*3/uL (0.1-1.2); Monocytes Percent Auto 8.2 % (2-11); Neutrophils Absolute Auto 5.5 x10*3/uL (2.0-8.3); Neutrophils Percent Auto 68.8 % (45-73); Platelet Count 282 X10*3/uL (160-400); Red Blood Count 4.25 X10*6/uL (4.20-5.50); Red Cell Distribution Width 13.2 % (11.0-16.0); White Blood Count 7.9 X10*3/uL (4.8-10.8)
[2024-12-06] MEDS: Chlorhexidine Gluc Oral Rinse 15 ML MOUTHWASH BUCCAL ×3 (09:25→20:44)
--- NOTE | 2024-12-06 10:22 | MHC.SLORD ---
Speech Language Pathology Order Status: Pt going for PEG today, MOTION PICTURE PRINTER treatment remains in place for dysphagia and dysarthria inpatient; upon d/c pt will need continued MOTION PICTURE PRINTER intervention.
--- NOTE | 2024-12-06 11:46 | MHC.CM.PN ---
Per ROUNDS discussion, Patient is not yet medically cleared for dc (PEG today); PT is recommending STR and CM will continue to follow.
--- NOTE | 2024-12-06 12:12 | HO.PM.IMPN ---
Subjective Subjective Date of Service: 12/06/24 Interval History: Seen and evaluated this morning alert and interactive today speaking with clear words but very depressed and crying wanting to go home still neglect of her left side Failed swallow eval , NPO looks frail and deconditioned Review of Systems Review of Systems: Yes all other systems are reviewed and are negative Physical Exam Vital Signs: Vital Signs: Last Vital Signs Temp 97.4 F 12/06/24 11:29 Pulse 97 12/06/24 11:29 Resp 20 12/06/24 11:29 BP 146/73 H 12/06/24 11:29 Pulse Ox 97 12/06/24 11:29 O2 Del Method Room Air 12/06/24 11:29 O2 Flow Rate 5 12/05/24 03:42 FiO2 28 12/05/24 03:42 Oxygen Flow Rate 30 11/23/24 12:46 BMI result Body Mass Index 33.7 Const: Other: Constitutional : Awake, interactive, not in distress Neck : Normal inspection, Supple, wound covered with dressing Cardiovascular : RRR, no JVP, no lower extremity edema Respiratory : decreased bilateral air entry, basal fine crackles, no wheezes , On O2 supplement Gastrointestinal: soft, lax, Normal bowel sounds, Non tender Skin : Warm, Dry Neurological : Alert & oriented to self and place, left sided flaccid hemiplegia, neglect, mild facial droop Objective Data Active Medications Chlorhexidine Gluconate (Chlorhexidine Gluc Oral Rinse 15 Ml Mouthwash) 15 ml BUCCAL TID [facility] Last Admin: 12/06/24 09:25 Dose: 15 ml Documented By: ERICK Furosemide (Furosemide 20 Mg/2 Ml Vial) 40 mg IVPUSH Q24H [facility]; Protocol Last Admin: 12/01/24 16:45 Dose: 40 mg Documented By: ERICK Heparin Sodium (Porcine) (Heparin Sodium,Porcine 5,000 Unit/Ml Vial) 5,000 unit SUBCUT Q8H [facility] Last Admin: 12/06/24 09:25 Dose: 5,000 unit Documented By: ERICK Ampicillin Sodium/Sulbactam (Sodium 3 gm/ Sodium Chloride) 100 mls @ 200 mls/hr IV Q8H [facility] Last Infusion: 12/06/24 09:57 Dose: Infused Documented By: ERICK Nutrition (Parenteral) (Parenteral Nutrition) 1,920 mls @ 80 mls/hr IV .Q24H [facility]; Protocol Stop: 12/06/24 20:59 Last Admin: 12/05/24 21:30 Dose: 80 mls/hr Documented By: KEMI Nutrition (Parenteral) (Parenteral Nutrition) 1,920 mls @ 80 mls/hr IV .Q24H [facility]; Protocol Stop: 12/07/24 20:59 Pharmacy Consult (Consult Rx Parenteral Nutrition Ordering) 1 each MISCELLANE DAILY PRN PRN Reason: Consult order Polyethylene Glycol (Polyethylene Glycol 3350 17 Gm Powd.Pack) 17 gm PO DAILY PRN PRN Reason: Constipation Last Admin: 11/28/24 17:12 Dose: 17 gm Documented By: SANDRA Sodium Chloride (0.9 % Sodium Chloride Flush 3 Ml Syringe) 3 ml IVFLUSH [facility] Last Admin: 12/06/24 09:26 Dose: 3 ml Documented By: ERICK Labs 12/06/24 06:54 12/06/24 06:54 Labs: Laboratory Results - last 24 hr 12/06/24 12/06/24 12/06/24 06:54 06:54 06:54 MCV 86.4 MCH 28.9 MCHC 33.5 RDW 13.2 Plt Count 282 MPV 9.8 Immature Gran % (Auto) 4.0 H Neut % (Auto) 68.8 Lymph % (Auto) 16.4 L [place] % (Auto) 8.2 Eos % (Auto) 1.8 Baso % (Auto) 0.8 Lymph # (Auto) 1.3 [place] # (Auto) 0.7 Eos # (Auto) 0.1 Baso # (Auto) 0.1 Abs Immat Gran (auto) 0.32 H Absolute Neuts (auto) 5.5 Absolute Nucleated RBC 0.000 Nucleated RBC % (auto) 0.0 Anion Gap 15 Cancelled Estim Creat Clear Calc 98.9 Cancelled Estimated GFR > 60 Random Glucose Calcium Phosphorus Magnesium Albumin 12/06/24 12/06/24 12/06/24 06:54 06:54 06:54 MCV MCH MCHC RDW Plt Count MPV Immature Gran % (Auto) Neut % (Auto) Lymph % (Auto) [place] % (Auto) Eos % (Auto) Baso % (Auto) Lymph # (Auto) [place] # (Auto) Eos # (Auto) Baso # (Auto) Abs Immat Gran (auto) Absolute Neuts (auto) Absolute Nucleated RBC Nucleated RBC % (auto) Anion Gap Estim Creat Clear Calc Estimated GFR Cancelled Random Glucose 100 Cancelled Calcium 9.9 Cancelled Phosphorus 3.2 Magnesium 1.9 Albumin 3.9 Microbiology Microbiology Results: Microbiology 11/30/24 09:18 Blood Culture - Final Blood - Venous No growth after 5 days. 11/30/24 09:18 Blood Culture - Final Blood - Venous No growth after 5 days. Assessment and Plan (1) Stroke: Status: Acute (2) Acute hypernatremia: Status: Acute (3) Dysphagia: Status: Acute Plan 54F PMH hypertension, hyperlipidemia, cardiomyopathy (s/p AICD), and COPD, admitted for elective right carotid endarterectomy on 11/22/2024. The procedure was complicated by carotid dissection and hematoma, leading to airway compression and need for intubation and left hemiparesis. She underwent hematoma evacuation on 11/23/2024 but remained intubated due to persistent airway edema. Treated with systemic glucocorticoids and diuretics, she showed improvement and was uneventfully extubated on 11/29/2024. Post-extubation, she exhibited signs of silent aspiration with minimal oxygen requirements. 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 for now holding PO home medications PEG tube placement for nutrition today, Surgery following Continue PPN follow Electrolytes to try bedside swallow eval as tolerated acute Hypernatremia corrected at 141, DC D5W follow BMP acute on chronic systolic chf stable possible aspiration pneumonia\pneumoitis empiric unasyn DVT PPx Heparin Thank you for the consult will continue to follow the patient with you Quality Stroke Does the patient have a stroke diagnosis?: Yes Reason for No Anti-thrombotic by Day Two: Contraindicated VTE Prior VTE?: No VTE Risk Level:: Medical - moderate - high VTE Device Contraindication: N/A - Device Ordered VTE Drug Contraindication: Treatment Not Tolerated
--- NOTE | 2024-12-06 13:11 | MHC.SHP ---
Pre-Procedural Eval Section A - 24 Hr Update-Section A only Date of Service: 12/06/24 The patient is an INPATIENT: Yes The patient has been examined within 24 hours of the surgical procedure. The History & Physical has been completed within 30 days and I have reviewed it.: Yes Section B - Complete if H&P > 30 days Chief Complaint: post op Allergies: Allergies Allergy/AdvReac Type Severity Reaction Status Date / Time lisinopril Allergy Cough Verified 11/01/24 15:46 ham Allergy hives Uncoded 11/01/24 15:46 Plan I have reviewed the history and physical and performed a pertinent physical examination on my patient. No changes have occurred unless specified. Time Spent With Patient Time: Total time managing care of this patient today ____ minutes.
--- NOTE | 2024-12-06 13:11 | PM.EVENT ---
Event Note Date of Service: 12/06/24 Event Note: Patient currently awake Has a little bit of verbal output No events reported Abdomen is soft, nondistended, no guarding, no rebound, no scars I reviewed the technique of PEG tube placement with her daughter Kailey I explained the risks including but not limited to bleeding, infections, bowel injury, tube dislodgement, tube leak, loss of airway, as well as the benefits and alternatives She has given consent Time Spent With Patient Time: Total time managing care of this patient today ____ minutes.
--- NOTE | 2024-12-06 13:20 | MHC.CLN ---
F/U PLAN TO PLACE PEG TUBE TODAY WEDNESDAY 12/06 REVIEWED LABS DISCUSSED WITH PHARMACY AND MD CONTINUE PPN AT MAX GOAL RATE 80ML/HR WITH 27G LIPIDS PROVIDES 1249 TOTAL KCALS (23KCALS/KG), 192G DEXTROSE, 82G PROTEIN (1.5G/KG) REPLETE LYTES NEEDED WILL CHANGE TO TF TOMORROW FOLLOWING WITH TEAM
[2024-12-06] MEDS: Lactated Ringers 1,000 ML 80 ML IVCONT (13:30)
--- NOTE | 2024-12-06 13:59 | ECG_ITS ---
Test Reason : stat or 7 EKG Blood Pressure : */* mmHG Vent. Rate : 101 BPM Atrial Rate : 101 BPM P-R Int : 152 ms QRS Dur : 116 ms QT Int : 374 ms P-R-T Axes : 58 122 -38 degrees QTcB Int : 484 ms Atrial-sensed ventricular-paced rhythm Biventricular pacemaker detected Abnormal ECG When compared with ECG of 22-Nov-2024 06:41, Vent. rate has increased by 31 bpm Referred By: Jorge L Walsh Electronically Signed By: CHINO SANCHEZ MD
--- NOTE | 2024-12-06 14:05 | W.PM.OPN ---
Operative Note Operative Note Date of Service: 12/06/24 Narrative: Preop diagnosis: Dysphagia, status post CVA Postop diagnosis: The same Procedure: PEG tube placement Surgeon: Jorge L Walsh MD expanded function dental assistant: CLARIBEL Phillips The patient is a 54 year old female with dysphagia and aspiration after a CVA following endarterectomy. I explained to the daughter the technique of PEG tube placement. I reviewed the risks, benefits, and alternatives and she had given consent. The patient was brought to the operating room and placed in reclining position on the hospital bed. She was in monitored anesthesia care. A bite block was in position. Surgical time-out was done. The patient was receiving scheduled IV antibiotics I inserted the gastroscope through the bite block into the oropharynx. The vocal cords were visualized. The esophageal slit was seen posterior to this. The esophageal slit was intubated. The scope was gently advanced and the entire length of the esophagus into the stomach. The stomach was insufflated. Transillumination was seen in the left upper quadrant below the ribcage. Indentation on the anterior stomach wall was easily seen as well with pressure on this same area with the index finger. This area was therefore prepped and draped. A small stab incision was made after infiltrating with lidocaine 1%. The large bore needle was inserted along with the plastic cannula sheath. This was seen into the stomach lumen. The needle was removed and the guidewire was inserted through the cannula sheath. The guidewire was grasped with a snare and was pulled out to the oral orifice. The guidewire was looped onto the PEG tube. A guidewire was then pulled back out through the no wall along with the feeding tube until there was resistance from the inner bolster. I reinserted the scope all the way to the stomach. The inner bolster was seen and was in good position. There were no lesions. There was no bleeding in the stomach. The scope was then completely withdrawn The external bolster was positioned to make this snug on the skin of the abdominal wall. The attachments on the feeding tube were applied. Dressings were placed. The procedure was completed. The patient tolerated procedure well. She was transferred to the recovery room with stable vital signs.
[2024-12-06] MEDS: Morphine Sulfate 2 MG/ML CARTRIDGE IVPUSH ×2 (16:59→20:57)
[2024-12-06] MEDS: Parenteral Nutrition 1,920 ML 80 ML IV (21:55)
[2024-12-07] VITALS (8 sets, daily range): BP systolic 114–180; BP diastolic 55–95; PULSE 107–120; RESP 16–20; TEMP 36.2–37; O2SAT 93–96; BMI 33.7
--- NOTE | 2024-12-07 | ECG_ITS ---
Test Reason : BASELINE Blood Pressure : */* mmHG Vent. Rate : 123 BPM Atrial Rate : 123 BPM P-R Int : 148 ms QRS Dur : 112 ms QT Int : 346 ms P-R-T Axes : -18 -78 97 degrees QTcB Int : 495 ms Atrial-sensed ventricular-paced rhythm Biventricular pacemaker detected Abnormal ECG When compared with ECG of 06-Dec-2024 16:40, Vent. rate has increased by 12 bpm Referred By: Ike Babin Electronically Signed By: CHINO SANCHEZ MD
[2024-12-07] MEDS: Heparin Sodium,Porcine 5,000 UNIT/ML VIAL 5000 UNIT SUBCUT ×4 (01:10→23:29)
[2024-12-07] MEDS: Ampicillin Sodium/Sulbactam Na 3 GM in 0.9 % Sodium Chloride 100 ML IV ×4 (01:11→23:35)
--- NOTE | 2024-12-07 02:25 | PC.NURSE ---
Both ultrasound guided IVs were no longer patent. New US guided IV placed- only able to obtain one- MD Mirza notified- running PPN and Fluids on hold - MD Mirza Ok'd
[2024-12-07] MEDS: Morphine Sulfate 2 MG/ML CARTRIDGE IVPUSH ×4 (02:41→18:38)
[2024-12-07 06:59] LABS: Albumin Level 3.7 g/dL (3.5-5.0); Anion Gap 11 (12-20); Blood Urea Nitrogen 20 mg/dL (9-16); Calcium 9.4 mg/dL (8.4-10.2); Carbon Dioxide 25 mmol/L (22-29); Chloride 103 mmol/L (96-108); Creatinine Clr Calc Pharmacy 92.7; Estimated Glomerular Filt Rate > 60; Glucose Random 161 mg/dL (60-115); Magnesium 1.8 mg/dL (1.6-2.6); Phosphorus 2.8 mg/dL (2.7-4.5); Potassium 4.3 mmol/L (3.3-5.1); Sodium 135 mmol/L (135-145)
[2024-12-07] MEDS: Chlorhexidine Gluc Oral Rinse 15 ML MOUTHWASH BUCCAL ×2 (09:46→21:24)
[2024-12-07] MEDS: 0.9 % Sodium Chloride Flush 3 ML SYRINGE IVFLUSH (09:47)
--- NOTE | 2024-12-07 10:16 | HO.VASCPN ---
Subjective Subjective Date of Service: 12/07/24 Interval history: Renita is doing well this morning. She does endorse that she is tired. She continues NPO with TPN feedings. She is status post PEG placement yesterday with Dr. Walsh. She denies any pain today. Physical Exam Vital Signs: Vital Signs: Last Vital Signs Temp 97.3 F 12/07/24 08:00 Pulse 112 H 12/07/24 08:00 Resp 20 12/07/24 08:00 BP 131/95 H 12/07/24 08:00 Pulse Ox 96 12/07/24 08:00 O2 Del Method Room Air 12/07/24 08:00 O2 Flow Rate 6 12/06/24 14:17 FiO2 28 12/05/24 03:42 Oxygen Flow Rate 30 11/23/24 12:46 BMI result Body Mass Index 33.7 Const: General: comfortable and no acute distress Orientation/consciousness: patient oriented x3 HEENT: Ears: hearing grossly normal bilaterally Neck: Other: Right carotid incision site: Steri-Strips falling off, site is clean, dry, and intact. Resp: Effort & Inspection: normal respiratory effort and able to speak in complete sentences Auscultation: clear to auscultation bilaterally Cardio: Rate: regular rate Rhythm: regular rhythm Heart sounds: S1 normal heart sound present and S2 normal heart sound present Bruits: no abdominal aortic bruits, no carotid bruits, no femoral bruits and no renal bruits GI: Palpation (GI): No Abdominal aortic bruit present Neuro: General: patient oriented x3 Extrem: Other: Left upper and lower extremities: Flaccid Progress Note: A&P Assessment and plan (1) Dissection of right carotid artery: Status: Acute Assessment and Plan: Renita is doing well this morning. She is status post PEG placement with Dr. Walsh yesterday. She continues with TPN feedings due to continued dysphagia and NPO status. We will continue to monitor. If there are any questions or concerns, please do not hesitate to reach out to us. Time Spent With Patient Time: Total time managing care of this patient today ____ minutes. Procedures Date of Service Date of Service: 12/07/24 Quality Stroke Does the patient have a stroke diagnosis?: Yes Reason for No Anti-thrombotic by Day Two: Contraindicated VTE Prior VTE?: No VTE Risk Level:: Medical - moderate - high VTE Device Contraindication: N/A - Device Ordered VTE Drug Contraindication: Treatment Not Tolerated
--- NOTE | 2024-12-07 11:42 | HO.PM.IMPN ---
Subjective Subjective Date of Service: 12/07/24 Interval History: Seen and evaluated this morning alert and interactive speaking with clear words but failed [employer] and still NPO POD 1 PEG placement depressed and crying wanting to go home still neglect of her left side looks frail and deconditioned Review of Systems Review of Systems: Yes all other systems are reviewed and are negative Physical Exam Vital Signs: Vital Signs: Last Vital Signs Temp 98.6 F 12/07/24 11:31 Pulse 112 H 12/07/24 11:31 Resp 20 12/07/24 11:31 BP 132/84 12/07/24 11:31 Pulse Ox 96 12/07/24 11:31 O2 Del Method Room Air 12/07/24 11:31 O2 Flow Rate 6 12/06/24 14:17 FiO2 28 12/05/24 03:42 Oxygen Flow Rate 30 11/23/24 12:46 BMI result Body Mass Index 33.7 Const: Other: Constitutional : Awake, interactive, not in distress Neck : Normal inspection, Supple, wound covered with dressing Cardiovascular : RRR, no JVP, no lower extremity edema Respiratory : good bilateral air entry, basal fine crackles, no wheezes , On room air Gastrointestinal: soft, lax, Normal bowel sounds, Non tender, PEG tube in place and covered Skin : Warm, Dry Neurological : Alert & oriented to self and place, left sided flaccid hemiplegia, neglect, mild facial droop Objective Data Active Medications Chlorhexidine Gluconate (Chlorhexidine Gluc Oral Rinse 15 Ml Mouthwash) 15 ml BUCCAL TID [facility] Last Admin: 12/07/24 09:46 Dose: 15 ml Documented By: CARLOS EDUARDO Furosemide (Furosemide 20 Mg/2 Ml Vial) 40 mg IVPUSH Q24H [facility]; Protocol Last Admin: 12/01/24 16:45 Dose: 40 mg Documented By: ERICK Heparin Sodium (Porcine) (Heparin Sodium,Porcine 5,000 Unit/Ml Vial) 5,000 unit SUBCUT Q8H [facility] Last Admin: 12/07/24 09:46 Dose: 5,000 unit Documented By: CARLOS EDUARDO Ampicillin Sodium/Sulbactam (Sodium 3 gm/ Sodium Chloride) 100 mls @ 200 mls/hr IV Q8H [facility] Last Infusion: 12/07/24 10:51 Dose: Infused Documented By: CARLOS EDUARDO Nutrition (Parenteral) (Parenteral Nutrition) 1,920 mls @ 80 mls/hr IV .Q24H [facility]; Protocol Stop: 12/07/24 20:59 Last Admin: 12/06/24 21:55 Dose: 80 mls/hr Documented By: OSCAR Lactated Ringer's (Lr) 1,000 mls @ 80 mls/hr IVCONT .[id number] [facility] Last Admin: 12/07/24 02:34 Dose: Not Given Documented By: OSCAR Non-Admin Reason: held d/t only having 1 IV Morphine Sulfate (Morphine Sulfate 2 Mg/Ml Cartridge) 2 mg IVPUSH Q4H PRN; Protocol PRN Reason: Pain, Severe (Pain Scale 7-10) Last Admin: 12/07/24 09:46 Dose: 2 mg Documented By: CARLOS EDUARDO Pharmacy Consult (Consult Rx Parenteral Nutrition Ordering) 1 each MISCELLANE DAILY PRN PRN Reason: Consult order Polyethylene Glycol (Polyethylene Glycol 3350 17 Gm Powd.Pack) 17 gm PO DAILY PRN PRN Reason: Constipation Last Admin: 11/28/24 17:12 Dose: 17 gm Documented By: SANDRA Sodium Chloride (0.9 % Sodium Chloride Flush 3 Ml Syringe) 3 ml IVFLUSH QSHIFT [facility] Last Admin: 12/07/24 09:47 Dose: 3 ml Documented By: CARLOS EDUARDO Labs 12/06/24 06:54 12/07/24 06:20 Labs: Laboratory Results - last 24 hr 12/03/24 12/03/24 12/03/24 06:20 06:40 12:25 MCV 88.2 MCH 28.5 MCHC 32.3 RDW 13.3 Plt Count 303 MPV 9.3 L Immature Gran % (Auto) 3.8 H Neut % (Auto) 69.7 Lymph % (Auto) 15.5 L [place] % (Auto) 8.5 Eos % (Auto) 2.3 Baso % (Auto) 0.2 Lymph # (Auto) 1.4 [place] # (Auto) 0.8 Eos # (Auto) 0.2 Baso # (Auto) 0.0 Abs Immat Gran (auto) 0.33 H Absolute Neuts (auto) 6.1 Absolute Nucleated RBC 0.000 Nucleated RBC % (auto) 0.0 Hold Purple Top Anion Gap 13 15 Estim Creat Clear Calc 100.6 112.2 Estimated GFR > 60 > 60 Random Glucose 125 H 122 H Calcium 9.1 9.4 Phosphorus 2.3 L Magnesium 2.3 Albumin Triglycerides 226 H 12/07/24 06:20 MCV MCH MCHC RDW Plt Count MPV Immature Gran % (Auto) Neut % (Auto) Lymph % (Auto) [place] % (Auto) Eos % (Auto) Baso % (Auto) Lymph # (Auto) [place] # (Auto) Eos # (Auto) Baso # (Auto) Abs Immat Gran (auto) Absolute Neuts (auto) Absolute Nucleated RBC Nucleated RBC % (auto) Hold Purple Top SEE NOTE Anion Gap 11 L Estim Creat Clear Calc 92.7 Estimated GFR > 60 Random Glucose 161 H Calcium 9.4 Phosphorus 2.8 Magnesium 1.8 Albumin 3.7 Triglycerides Assessment and Plan (1) Stroke: Status: Acute (2) Dysphagia: Status: Acute (3) Acute hypernatremia: Status: Acute Plan 54F PMH hypertension, hyperlipidemia, cardiomyopathy (s/p AICD), and COPD, admitted for elective right carotid endarterectomy on 11/22/2024. The procedure was complicated by carotid dissection and hematoma, leading to airway compression and need for intubation and left hemiparesis. She underwent hematoma evacuation on 11/23/2024 but remained intubated due to persistent airway edema. Treated with systemic glucocorticoids and diuretics, she showed improvement and was uneventfully extubated on 11/29/2024. Post-extubation, she exhibited signs of silent aspiration with minimal oxygen requirements. now downgraded to medical floor 11/30/24 right CEA complicated by hematoma and left hemiparesis, Lt flaccid hemiparesis, acute hypoxic respiratory failure and acute stroke mri reporting right fronto-temporal stroke more alert and interactive [employer] rec NPO for now holding PO home medications PEG tube placement for nutrition today, Surgery following Continue PPN today, dc tomorrow if tolerating PEG to start tube feed today, follow Electrolytes start ASA, Atorvastatin acute Hypernatremia corrected at 141, DC D5W follow BMP acute on chronic systolic chf stable, resolved with IV lasix, monitor aspiration pneumonia\pneumoitis On unasyn 12/01 monitor weaned off O2 DVT PPx Heparin Thank you for the consult will continue to follow the patient with you Quality Stroke Does the patient have a stroke diagnosis?: Yes Reason for No Anti-thrombotic by Day Two: Contraindicated VTE Prior VTE?: No VTE Risk Level:: Medical - moderate - high VTE Device Contraindication: N/A - Device Ordered VTE Drug Contraindication: Treatment Not Tolerated
--- NOTE | 2024-12-07 12:00 | MHC.CLN ---
PT IS S/P PEG TUBE PLACEMENT YESTERDAY PER DR RITTER CAN USE TF TODAY RECOMMEND JEVITY 1.0 AT MAX GOAL RATE 50ML/HR WITH 240ML FREE WATER FLUSHES Q 8 HRS TO PROVIDE 1272KCALS (24KCALS/KG), 53G PROTEIN (.98G/KG0, 1722ML TOTAL WATER FROM FORMULA AND FLUSHES (32ML/KG) START TF AT 20ML/HR AND INCREASE BY 10ML Q 4 HRS UNTIL MAX GAOL IS ACHIEVED MONITOR TOLERANCE AND LYTES SEE ALSO FULL CLINICAL NUTRITION ASSESSMENT
--- NOTE | 2024-12-07 12:24 | PM.PNGS ---
Subjective Subjective Date of Service: 12/07/24 Interval history: No events overnight Still having secretions in the oropharynx Physical Exam Vital Signs: Vital Signs: Last Vital Signs Temp 98.6 F 12/07/24 11:31 Pulse 112 H 12/07/24 11:31 Resp 20 12/07/24 11:31 BP 132/84 12/07/24 11:31 Pulse Ox 96 12/07/24 11:31 O2 Del Method Room Air 12/07/24 11:31 O2 Flow Rate 6 12/06/24 14:17 FiO2 28 12/05/24 03:42 Oxygen Flow Rate 30 11/23/24 12:46 BMI result Body Mass Index 33.7 Const: Other: Mildly short of breath with secretions in the oropharynx, more verbal output today and answers some questions General: no acute distress Resp: Other: Mildly short of breath Cardio: Rhythm: regular rhythm GI: Other: Peg tube in place, dressings dry Palpation (GI): Soft to palpation, not firm and no guarding Objective Data Active Medications Amiodarone HCl (Amiodarone Hcl 200 Mg Tablet) 200 mg G-TUBE DAILY [facility] Aspirin (Aspirin Enteric Coated 81 Mg Tablet.Dr) 81 mg PO DAILY [facility] Atorvastatin Calcium (Atorvastatin Calcium 80 Mg Tablet) 80 mg G-TUBE BEDTIME [facility] Chlorhexidine Gluconate (Chlorhexidine Gluc Oral Rinse 15 Ml Mouthwash) 15 ml BUCCAL TID [facility] Last Admin: 12/07/24 09:46 Dose: 15 ml Documented By: CARLOS EDUARDO Furosemide (Furosemide 20 Mg/2 Ml Vial) 40 mg IVPUSH Q24H [facility]; Protocol Last Admin: 12/01/24 16:45 Dose: 40 mg Documented By: ERICK Heparin Sodium (Porcine) (Heparin Sodium,Porcine 5,000 Unit/Ml Vial) 5,000 unit SUBCUT Q8H [facility] Last Admin: 12/07/24 09:46 Dose: 5,000 unit Documented By: CARLOS EDUARDO Ampicillin Sodium/Sulbactam (Sodium 3 gm/ Sodium Chloride) 100 mls @ 200 mls/hr IV Q8H [facility] Last Infusion: 12/07/24 10:51 Dose: Infused Documented By: CARLOS EDUARDO Nutrition (Parenteral) (Parenteral Nutrition) 1,920 mls @ 80 mls/hr IV .Q24H [facility]; Protocol Stop: 12/07/24 20:59 Last Admin: 12/06/24 21:55 Dose: 80 mls/hr Documented By: OSCAR Lactated Ringer's (Lr) 1,000 mls @ 80 mls/hr IVCONT .[id number] [facility] Last Admin: 12/07/24 02:34 Dose: Not Given Documented By: OSCAR Non-Admin Reason: held d/t only having 1 IV Metoprolol Tartrate (Metoprolol Tartrate 5 Mg/5 Ml Vial) 5 mg IVPUSH Q6H PRN; Protocol PRN Reason: HR>130 Metoprolol Tartrate (Metoprolol Tartrate 25 Mg Tablet) 25 mg G-TUBE BID [facility]; Protocol Morphine Sulfate (Morphine Sulfate 2 Mg/Ml Cartridge) 2 mg IVPUSH Q4H PRN; Protocol PRN Reason: Pain, Severe (Pain Scale 7-10) Last Admin: 12/07/24 09:46 Dose: 2 mg Documented By: CARLOS EDUARDO Omeprazole (Omeprazole/Na Bicarb Oral Susp 20 Mg/10 Ml Ud Cup) 20 mg G-TUBE BID@0630,1630 [facility] Pharmacy Consult (Consult Rx Parenteral Nutrition Ordering) 1 each MISCELLANE DAILY PRN PRN Reason: Consult order Polyethylene Glycol (Polyethylene Glycol 3350 17 Gm Powd.Pack) 17 gm PO DAILY PRN PRN Reason: Constipation Last Admin: 11/28/24 17:12 Dose: 17 gm Documented By: SANDRA Sodium Chloride (0.9 % Sodium Chloride Flush 3 Ml Syringe) 3 ml IVFLUSH QSHIFT [facility] Last Admin: 12/07/24 09:47 Dose: 3 ml Documented By: CARLOS EDUARDO Labs 12/06/24 06:54 12/07/24 06:20 Labs: Laboratory Results - last 24 hr 12/03/24 12/03/24 12/03/24 06:20 06:40 12:25 MCV 88.2 MCH 28.5 MCHC 32.3 RDW 13.3 Plt Count 303 MPV 9.3 L Immature Gran % (Auto) 3.8 H Neut % (Auto) 69.7 Lymph % (Auto) 15.5 L [place] % (Auto) 8.5 Eos % (Auto) 2.3 Baso % (Auto) 0.2 Lymph # (Auto) 1.4 [place] # (Auto) 0.8 Eos # (Auto) 0.2 Baso # (Auto) 0.0 Abs Immat Gran (auto) 0.33 H Absolute Neuts (auto) 6.1 Absolute Nucleated RBC 0.000 Nucleated RBC % (auto) 0.0 Hold Purple Top Anion Gap 13 15 Estim Creat Clear Calc 100.6 112.2 Estimated GFR > 60 > 60 Random Glucose 125 H 122 H Calcium 9.1 9.4 Phosphorus 2.3 L Magnesium 2.3 Albumin Triglycerides 226 H 12/07/24 06:20 MCV MCH MCHC RDW Plt Count MPV Immature Gran % (Auto) Neut % (Auto) Lymph % (Auto) [place] % (Auto) Eos % (Auto) Baso % (Auto) Lymph # (Auto) [place] # (Auto) Eos # (Auto) Baso # (Auto) Abs Immat Gran (auto) Absolute Neuts (auto) Absolute Nucleated RBC Nucleated RBC % (auto) Hold Purple Top SEE NOTE Anion Gap 11 L Estim Creat Clear Calc 92.7 Estimated GFR > 60 Random Glucose 161 H Calcium 9.4 Phosphorus 2.8 Magnesium 1.8 Albumin 3.7 Triglycerides Procedures Date of Service Date of Service: 12/07/24 Progress Note: A&P Assessment and plan (1) Dysphagia: Status: Acute Assessment and Plan: Status post PEG placement Abdomen is soft and benign Okay to start PEG tube feeds today Keep external bolster snug on the abdominal wall Rest of care as per the primary service Time Spent With Patient Time: Total time managing care of this patient today ____ minutes. Quality Stroke Does the patient have a stroke diagnosis?: Yes Reason for No Anti-thrombotic by Day Two: Contraindicated VTE Prior VTE?: No VTE Risk Level:: Medical - moderate - high VTE Device Contraindication: N/A - Device Ordered VTE Drug Contraindication: Treatment Not Tolerated
[2024-12-07] MEDS: Aspirin Enteric Coated 81 MG TABLET.DR PO (12:40)
[2024-12-07] MEDS: Omeprazole/Na Bicarb Oral Susp 20 MG/10 ML UD Cup G-TUBE ×2 (12:41→16:09)
[2024-12-07] MEDS: Metoprolol Tartrate 25 MG TABLET G-TUBE ×2 (12:41→20:04)
--- NOTE | 2024-12-07 14:07 | HO.POSTANES ---
Post Anesthesia Evaluation Post Anesthesia Evaluation Date of Service: 12/07/24 Vital Signs: Vital Signs Temp Pulse Resp BP Pulse Ox O2 Del Method 12/07/24 11:31 98.6 F 112 H 20 132/84 96 Room Air 12/07/24 10:59 112 H 96 12/07/24 08:00 97.3 F 112 H 20 131/95 H 96 Room Air 12/07/24 03:17 97.2 F 118 H 18 114/59 L 93 Room Air 12/07/24 02:41 19 Anesthesia: Monitored Mental Status: Awake Pain Control: Satisfactory Nausea/Vomiting: None Hydration: Adequate Anesthesia-Related Issues: No Anes. Related Issues
--- NOTE | 2024-12-07 16:05 | MHC.CM.PN ---
Addendum entered by Iliana Lang 12/07/24 16:19: Bed offer accepted from daughter for [facility], insurance auth initiated. Original Note: EMR reviewed and per MD rounds, pt is not medically cleared for discharge due to management of post-op care, PEG tube placed yesterday 12/06, pt started on tube feeds today. Per MD, anticipating pt should be ready for discharge in the next day or 2. This CM met with pt and her daughter/HCP Kailey present at bedside to discuss STR options. Per Kailey, should would like her to go a facility close to [place] as she doesn't drive and its difficult for her to go too far. STR referral updated, awaiting bed offer, then will need insurance auth.
--- NOTE | 2024-12-07 16:50 | MHC.SLORD ---
Speech Language Pathology Order Status: Per Dr. Walsh, patient to start TFs today. CM notes bed offer accepted from daughter for [facility]. Recommend continued speech therapy at next level of care.
[2024-12-07] MEDS: Atorvastatin Calcium 80 MG TABLET G-TUBE (20:04)
[2024-12-08] VITALS (7 sets, daily range): BP systolic 119–154; BP diastolic 63–92; PULSE 90–107; RESP 18–20; TEMP 36.3–36.6; O2SAT 96–99
[2024-12-08] MEDS: Lactated Ringers 1,000 ML 80 ML IVCONT ×2 (00:15→12:57)
[2024-12-08] MEDS: Morphine Sulfate 2 MG/ML CARTRIDGE IVPUSH ×3 (02:15→14:50)
[2024-12-08] MEDS: Omeprazole/Na Bicarb Oral Susp 20 MG/10 ML UD Cup G-TUBE ×2 (05:32→14:49)
[2024-12-08 06:53] LABS: MANUAL DIFF FLAG NO
[2024-12-08 07:03] LABS: Basophils Percent Auto 0.2 % (0-2); Eosinophils Absolute Auto 0.1 X10*3/uL (0.0-0.4); Eosinophils Percent Auto 0.8 % (0-4); Hematocrit 31.9 % (37.0-47.0); Hemoglobin 10.6 g/dl (12.0-16.0); Imm Gran Abs Auto 0.14 X10*3/uL (0.00-0.03); Imm Gran Pct Auto 1.5 % (0.0-0.4); Lymphocytes Percent Auto 10.8 % (20-40); Mean Corpuscular HGB Conc 33.2 g/dl (31.0-35.0); Mean Corpuscular Hemoglobin 28.7 pg (27.0-33.0); Mean Corpuscular Volume 86.4 fL (80.0-98.0); Mean Platelet Volume 9.7 fL (9.4-12.3); Monocytes Absolute Auto 0.5 X10*3/uL (0.1-1.2); Monocytes Percent Auto 5.6 % (2-11); Neutrophils Absolute Auto 7.4 x10*3/uL (2.0-8.3); Neutrophils Percent Auto 81.1 % (45-73); Platelet Count 284 X10*3/uL (160-400); Red Blood Count 3.69 X10*6/uL (4.20-5.50); Red Cell Distribution Width 13.7 % (11.0-16.0); White Blood Count 9.1 X10*3/uL (4.8-10.8)
[2024-12-08 07:16] LABS: Albumin Level 3.5 g/dL (3.5-5.0); Anion Gap 12 (12-20); Blood Urea Nitrogen 14 mg/dL (9-16); Calcium 9.4 mg/dL (8.4-10.2); Carbon Dioxide 26 mmol/L (22-29); Chloride 104 mmol/L (96-108); Creatinine Clr Calc Pharmacy 106.1; Estimated Glomerular Filt Rate > 60; Glucose Random 142 mg/dL (60-115); Phosphorus 2.8 mg/dL (2.7-4.5); Sodium 138 mmol/L (135-145)
[2024-12-08] MEDS: Heparin Sodium,Porcine 5,000 UNIT/ML VIAL 5000 UNIT SUBCUT ×2 (09:32→14:49)
[2024-12-08] MEDS: Chlorhexidine Gluc Oral Rinse 15 ML MOUTHWASH BUCCAL ×2 (09:39→14:49)
[2024-12-08] MEDS: Ampicillin Sodium/Sulbactam Na 3 GM in 0.9 % Sodium Chloride 100 ML IV ×2 (09:39→14:49)
[2024-12-08] MEDS: Metoprolol Tartrate 25 MG TABLET G-TUBE (09:41)
[2024-12-08] MEDS: Aspirin Enteric Coated 81 MG TABLET.DR PO (09:41)
[2024-12-08] MEDS: Amiodarone HCL 200 MG TABLET G-TUBE (09:42)
[2024-12-08] MEDS: 0.9 % Sodium Chloride Flush 3 ML SYRINGE IVFLUSH ×2 (09:42→14:49)
--- NOTE | 2024-12-08 10:27 | P.DS_ITS ---
DS: Providers Provider Date of Service: 12/08/24 Date of admission: 11/22/24 06:05 Date of discharge: 12/08/24 Primary care physician: Hilda Butt MD Consults: 11/22/24 14:30 Consult to Neurology Stat Consulting Provider: [facility] Reason for consultation: R/O post op caratid stroke 11/30/24 09:45 Consult to Hospitalist Routine Comment: Consulting Provider: [facility] Reason For Exam: Medical comanagement with vascular surgery 12/02/24 10:26 Consult to General Surgery Routine Consulting Provider: [facility] Reason for consultation: PEG tube placement. DS: Diagnosis Discharge Diagnosis (1) Dysphagia: Status: Acute DS: Summary Hospital Course Hospital Course: Renita is status post right carotid endarterectomy, performed on 11/22/2024. She unfortunately suffered a right carotid dissection as well as a CVA, which left her with left-sided hemiplegia as well as dysphagia. Her course was complicated with laryngeal edema and difficulty weaning off of the intubation. She has been doing well since being extubated last Friday, 11/29. She had a PEG tube placed on Wednesday 12/06, and he has been tolerating her feeds since yesterday. The patient has been assessed by both PT and OT and she will be going to a short- term rehab to continue her rehab. We will follow up with her outpatient. Her carotid incision site is C/D/I and the steri strips should be falling off soon, they do not need to be removed. Time Attestation Discharge Coordination Time (in mins): >45 minutes Quality: Safe Use of Opioids Does Pt have an Active Cancer Diagnosis on the Problem List?: No Quality: Stroke Does the patient have a stroke diagnosis?: No Reason for No Anti-thrombotic at DC: Not indicated Reason for No Anticoagulant at DC: Not indicated Physical Exam Vital Signs: Vital Signs: Last Vital Signs Temp 97.5 F 12/08/24 08:00 Pulse 107 H 12/08/24 09:41 Resp 20 12/08/24 08:00 BP 154/74 H 12/08/24 09:41 Pulse Ox 96 12/08/24 08:00 O2 Del Method Room Air 12/08/24 08:00 O2 Flow Rate 6 12/06/24 14:17 FiO2 28 12/05/24 03:42 Oxygen Flow Rate 30 11/23/24 12:46 BMI result Body Mass Index 33.7 Const: General: comfortable and no acute distress Orientation/consciousness: patient oriented x3 HEENT: Ears: hearing grossly normal bilaterally Neck: Other: Right carotid incision site: C/D/I. Steri strips peeling off. Resp: Effort & Inspection: normal respiratory effort and able to speak in complete sentences Auscultation: clear to auscultation bilaterally Cardio: Rate: regular rate Rhythm: regular rhythm Heart sounds: S1 normal heart sound present and S2 normal heart sound present Bruits: no abdominal aortic bruits, no carotid bruits, no femoral bruits and no renal bruits GI: Palpation (GI): No Abdominal aortic bruit present Neuro: General: patient oriented x3 Extrem: Other: Left upper and lower extremities: flaccid DS: Data Data Completed and Pending Completed studies during hospitalization [Text1]: Pending at discharge 11/22/24 09:48 Surgical [PTH] Routine Labs on day of discharge: Laboratory Results - last 24 hr 12/08/24 06:32 WBC 9.1 RBC 3.69 L Hgb 10.6 L Hct 31.9 L MCV 86.4 MCH 28.7 MCHC 33.2 RDW 13.7 Plt Count 284 MPV 9.7 Immature Gran % (Auto) 1.5 H Neut % (Auto) 81.1 H Lymph % (Auto) 10.8 L [place] % (Auto) 5.6 Eos % (Auto) 0.8 Baso % (Auto) 0.2 Lymph # (Auto) 1.0 L [place] # (Auto) 0.5 Eos # (Auto) 0.1 Baso # (Auto) 0.0 Abs Immat Gran (auto) 0.14 H Absolute Neuts (auto) 7.4 Absolute Nucleated RBC 0.000 Nucleated RBC % (auto) 0.0 Sodium 138 Potassium 4.0 Chloride 104 Carbon Dioxide 26 Anion Gap 12 BUN 14 Creatinine 0.55 Estim Creat Clear Calc 106.1 Estimated GFR > 60 Random Glucose 142 H Calcium 9.4 Phosphorus 2.8 Magnesium 2.0 Albumin 3.5 Discharge Plan Discharge Anticipated Discharge Date/Time: 12/08/24 10:22 Patient Disposition: Xfer SNF Discharge Diagnosis: s/p right carotid endart, carotid dissection, CVA with left hemiplegia and dysphagia Referrals: Hilda Butt MD [Primary Care Provider] - 1 Week Discharge Medications: Continued spironolactone 25 mg tablet 25 mg PO DAILY Qty: 90 3RF Entresto 24-26 mg tablet 1 tab PO BID 90 Days Qty: 180 3RF metoprolol succinate 50 mg tablet extended release 24 hr 50 mg PO DAILY Qty: 90 3RF Rx Instructions: dose increase amiodarone 200 mg tablet 200 mg PO DAILY Qty: 21 0RF Rx Instructions: When you are done with the 400 mg all of them, then stat with 200 mg once a day for 3 weeks. Then stop. amiodarone 400 mg tablet 400 mg PO BID Qty: 14 0RF Rx Instructions: Take these for 7 days After 7 days then start other prescription. acetaminophen [Tylenol Extra Strength] 500 mg tablet 500 mg PO Q6H PRN (Reason: fever or pain) Qty: 14 0RF montelukast 10 mg tablet 10 mg PO BEDTIME sertraline 50 mg tablet 50 mg PO DAILY omega 1-lkg-thu-fish oil 60-90-500 mg capsule 1 cap PO DAILY cetirizine 10 mg tablet 10 mg PO DAILY PRN (Reason: Allergy Symptoms) aspirin 81 mg tablet,delayed release (DR/EC) 81 mg PO DAILY ascorbic acid (vitamin C) 250 mg tablet 250 mg PO DAILY albuterol sulfate [Ventolin HFA] 90 mcg/actuation HFA aerosol inhaler 2 inh INHALATION Q6H PRN (Reason: Shortness Of Breath Or Wheezing) cholecalciferol (vitamin D3) [Vitamin D3] 50 mcg (2,000 unit) capsule 50 mcg PO DAILY atorvastatin 80 mg tablet 80 mg PO DAILY pantoprazole 40 mg tablet,delayed release (DR/EC) 40 mg PO DAILY@0630 ferrous sulfate [FeroSul] 325 mg (65 mg iron) tablet 325 mg PO DAILY furosemide [Lasix] 20 mg tablet 20 mg PO DAILY Qty: 30 2RF Discharge Orders: Discharge Order (Routine); Ordered 12/08/24 Ordered By: Rachna Hurtado Diet: NPO - jevity Activity on Discharge: As tolerated Stand Alone Forms: Patient Portal Discharge page Print Language: Bulgarian Activity Restrictions/Additional Instructions: NPO PEG TUBE: RECOMMEND JEVITY 1.0 AT MAX GOAL RATE 50ML/HR WITH 240ML FREE WATER FLUSHES Q 8 HRS TO PROVIDE 1272KCALS (24KCALS/KG), 53G PROTEIN (.98G/KG0, 1722ML TOTAL WATER FROM FORMULA AND FLUSHES (32ML/KG) START TF AT 20ML/HR AND INCREASE BY 10ML Q 4 HRS UNTIL MAX GOAL IS ACHIEVED MONITOR TOLERANCE AND LYTES Care Plan Goals: PT/OT at STR. Health Concerns: Dysphagia, left side hemiplegia s/p CVA Plan of Treatment: STR for PT/OT. JUNIOR UNDERWRITER to follow. Assessment: Renita is s/p right carotid endart with complications of dissection and hematoma. She had a CVA and has left sided hemiplegia with dysphagia and requires tube feeds (as listed above).
--- NOTE | 2024-12-08 11:02 | HO.PM.IMPN ---
Subjective Subjective Date of Service: 12/08/24 Interval History: tolerating feeds, in good spirits today Physical Exam Vital Signs: Vital Signs: Last Vital Signs Temp 97.5 F 12/08/24 08:00 Pulse 107 H 12/08/24 09:41 Resp 20 12/08/24 08:00 BP 154/74 H 12/08/24 09:41 Pulse Ox 96 12/08/24 08:00 O2 Del Method Room Air 12/08/24 08:00 O2 Flow Rate 6 12/06/24 14:17 FiO2 28 12/05/24 03:42 Oxygen Flow Rate 30 11/23/24 12:46 BMI result Body Mass Index 33.7 Const: General: comfortable and no acute distress Orientation/consciousness: patient oriented x3 HEENT: Ears: hearing grossly normal bilaterally Neck: Other: Right carotid incision site: C/D/I. Steri strips peeling off. Resp: Effort & Inspection: normal respiratory effort and able to speak in complete sentences Auscultation: clear to auscultation bilaterally Cardio: Rate: regular rate Rhythm: regular rhythm Heart sounds: S1 normal heart sound present and S2 normal heart sound present Bruits: no abdominal aortic bruits, no carotid bruits, no femoral bruits and no renal bruits GI: Palpation (GI): No Abdominal aortic bruit present Neuro: General: patient oriented x3 Extrem: Other: Left upper and lower extremities: flaccid Objective Data Active Medications Amiodarone HCl (Amiodarone Hcl 200 Mg Tablet) 200 mg G-TUBE DAILY [facility] Last Admin: 12/08/24 09:42 Dose: 200 mg Documented By: JANELL Aspirin (Aspirin Enteric Coated 81 Mg Tablet.) 81 mg PO DAILY [facility] Last Admin: 12/08/24 09:41 Dose: 81 mg Documented By: JANELL Atorvastatin Calcium (Atorvastatin Calcium 80 Mg Tablet) 80 mg G-TUBE BEDTIME [facility] Last Admin: 12/07/24 20:04 Dose: 80 mg Documented By: OSCAR Chlorhexidine Gluconate (Chlorhexidine Gluc Oral Rinse 15 Ml Mouthwash) 15 ml BUCCAL TID [facility] Last Admin: 12/08/24 09:39 Dose: 15 ml Documented By: JANELL Furosemide (Furosemide 20 Mg/2 Ml Vial) 40 mg IVPUSH Q24H [facility]; Protocol Last Admin: 12/01/24 16:45 Dose: 40 mg Documented By: ERICK Heparin Sodium (Porcine) (Heparin Sodium,Porcine 5,000 Unit/Ml Vial) 5,000 unit SUBCUT Q8H [facility] Last Admin: 12/08/24 09:32 Dose: 5,000 unit Documented By: JANELL Ampicillin Sodium/Sulbactam (Sodium 3 gm/ Sodium Chloride) 100 mls @ 200 mls/hr IV Q8H [facility] Last Infusion: 12/08/24 10:25 Dose: Infused Documented By: JANELL Lactated Ringer's (Lr) 1,000 mls @ 80 mls/hr IVCONT .[id number] [facility] Last Admin: 12/08/24 00:15 Dose: 80 mls/hr Documented By: OSCAR Metoprolol Tartrate (Metoprolol Tartrate 5 Mg/5 Ml Vial) 5 mg IVPUSH Q6H PRN; Protocol PRN Reason: HR>130 Metoprolol Tartrate (Metoprolol Tartrate 25 Mg Tablet) 25 mg G-TUBE BID [facility]; Protocol Last Admin: 12/08/24 09:41 Dose: 25 mg Documented By: JANELL Morphine Sulfate (Morphine Sulfate 2 Mg/Ml Cartridge) 2 mg IVPUSH Q4H PRN; Protocol PRN Reason: Pain, Severe (Pain Scale 7-10) Last Admin: 12/08/24 09:39 Dose: 2 mg Documented By: JANELL Omeprazole (Omeprazole/Na Bicarb Oral Susp 20 Mg/10 Ml Ud Cup) 20 mg G-TUBE BID@0630,1630 [facility] Last Admin: 12/08/24 05:32 Dose: 20 mg Documented By: OSCAR Pharmacy Consult (Consult Rx Parenteral Nutrition Ordering) 1 each MISCELLANE DAILY PRN PRN Reason: Consult order Polyethylene Glycol (Polyethylene Glycol 3350 17 Gm Powd.Pack) 17 gm PO DAILY PRN PRN Reason: Constipation Last Admin: 11/28/24 17:12 Dose: 17 gm Documented By: SANDRA Sodium Chloride (0.9 % Sodium Chloride Flush 3 Ml Syringe) 3 ml IVFLUSH QSHIFT [facility] Last Admin: 12/08/24 09:42 Dose: 3 ml Documented By: JANELL Labs 12/08/24 06:32 02/12/25 06:32 Labs: Laboratory Results - last 24 hr 12/08/24 06:32 MCV 86.4 MCH 28.7 MCHC 33.2 RDW 13.7 Plt Count 284 MPV 9.7 Immature Gran % (Auto) 1.5 H Neut % (Auto) 81.1 H Lymph % (Auto) 10.8 L [place] % (Auto) 5.6 Eos % (Auto) 0.8 Baso % (Auto) 0.2 Lymph # (Auto) 1.0 L [place] # (Auto) 0.5 Eos # (Auto) 0.1 Baso # (Auto) 0.0 Abs Immat Gran (auto) 0.14 H Absolute Neuts (auto) 7.4 Absolute Nucleated RBC 0.000 Nucleated RBC % (auto) 0.0 Anion Gap 12 Estim Creat Clear Calc 106.1 Estimated GFR > 60 Random Glucose 142 H Calcium 9.4 Phosphorus 2.8 Magnesium 2.0 Albumin 3.5 Assessment and Plan (1) Stroke: Status: Acute (2) Dysphagia: Status: Acute (3) Acute hypernatremia: Status: Acute Plan 54F H hypertension, hyperlipidemia, cardiomyopathy (s/p AICD), and COPD, admitted for elective right carotid endarterectomy on 11/22/2024. The procedure was complicated by carotid dissection and hematoma, leading to airway compression and need for intubation and left hemiparesis. She underwent hematoma evacuation on 11/23/2024 but remained intubated due to persistent airway edema. Treated with systemic glucocorticoids and diuretics, she showed improvement and was uneventfully extubated on 11/29/2024. Post-extubation, she exhibited signs of silent aspiration with minimal oxygen requirements. 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
--- NOTE | 2024-12-08 12:33 | MHC.CLN ---
RE: CONSULT PT IS S/P NEW PEG TUBE TF RUNNING AT 40ML/HR AND SLOWLY ADVANCING TO GOAL PT TO RECEIVE JEVITY 1.0 AT MAX GOAL RATE 50ML/HR WITH 240ML FREE WATER FLUSHES Q 8 HRS TO PROVIDE 1272KCALS (24KCALS/KG), 53G PROTEIN (.98G/KG), 1722ML TOTAL WATER FROM FORMULA AND FLUSHES (32ML/KG) START TF AT 20ML/HR AND INCREASE BY 10ML Q 4 HRS UNTIL MAX GAOL IS ACHIEVED MONITOR TOLERANCE AND LYTES [facility]AN [facility]
--- NOTE | 2024-12-08 13:40 | MHC.CM.PN ---
Second IMM given 12/08. Insurance auth obtained for STR at [facility] [place]. Pt will transport there via [facility]. [facility] transport auth received (booking ID# [id number]). Per pts request, this CM called and informed her daughter/HCP Kailey of the discharge plan.
--- NOTE | 2024-12-08 13:57 | MHC.SL.SWA ---
Speech Pathologist Impression: NPO STRICT, pharyngeal strengthening exercises, skilled ST during inpatient and at rehab, recc MBSS within two monhts. Risk of Aspiration Due to: Lethargy Medically Fragile PMH CVA with resulting dysphagia/treatment for pharyngeal strengthening Dysphasia Diet Status: Liquid Consistency and Strategies for Safe Swallow: Liquid Intake Recommendation: NPO Liquid Intake Strategies: Solid Food Consistency: Dietary Recommendations: NPO Additional Modifications to Solid Foods: Patient reportedly scheduled for PEG placement Wednesday 12/06. Oral Medication Intake: NPO Please contact the pharmacy regarding appropriate crushable or liquid drug formulations that are available whenever modified delivery is recommended. Compensatory Strategies and Precautions to be Taken for Safe Swallow: Supervision While Eating and Drinking for Safe Swallow: PO with CERTIFIED ENERGY MANAGER Foods to Avoid: Swallowing Recommended Treatments: Oral Motor Exercises Base of Tongue Exercises Thermal Stimulation Gustatory Stimulation Pharyngeal Resistive Exer Recommendation for Speech: Inpatient Speech Therapy Comment: CERTIFIED ENERGY MANAGER to re-evaluate tomorrow morning. Frequency/Duration: Date Range for Service Req: Timeline to reassess: Parcel Post Clerk Clinican/Clinical Fellow: No Supervisory Statement: I have reviewed and agree with the student/clinical fellow's documentation: N/A Speech Language Pathologist: Jeana Bonner M.S., CCC-CERTIFIED ENERGY MANAGER
== END 2024-12-08 16:40 | disposition skilled nursing facility (03) | DRG 37 ==
LOC: HO.SSSA 08:11 → HO.ICU 13:14 → HO.IMC 11-30 13:34
PROVIDERS: Internal Medicine Critical Care Medicine; Internal Medicine Pulmonary Disease; Physician Assistant Surgical; Registered Nurse Community Health; Student in an Organized Health Care Education/Training Program; Surgery; Admitting Provider Surgery Vascular Surgery; PCP General Practice; Visit Provider Surgery Vascular Surgery
PROC: 037 Upper Arteries, Dilation (ICD-10-PCS; CPT 35301; principal; 2024-11-22 07:30)
PROC: 03CM0ZZ Extirpation of Matter from Right External Carotid Artery, Open Approach (ICD-10-PCS; principal; 2024-11-23 07:30)
PROC: 0DH63UZ Insertion of Feeding Device into Stomach, Percutaneous Approach (ICD-10-PCS; CPT 43246; principal; 2024-12-06 13:00)
DX: I65.21 Occlusion and stenosis of right carotid artery (principal); I77.71 Dissection of carotid artery; J69.0 Pneumonitis due to inhalation of food and vomit; T81.12XA Postprocedural septic shock, initial encounter; J95.821 Acute postprocedural respiratory failure; G81.94 Hemiplegia, unspecified affecting left nondominant side; I42.8 Other cardiomyopathies; I97.821 Postprocedural cerebrovascular infarction following other surgery; D68.32 Hemorrhagic disorder due to extrinsic circulating anticoagulants; R13.10 Dysphagia, unspecified; I10 Essential (primary) hypertension; R47.01 Aphasia; Y83.8 Other surgical procedures as the cause of abnormal reaction of the patient, or of later complication, without mention of misadventure at the time of the procedure; E78.5 Hyperlipidemia, unspecified; Z95.810 Presence of automatic (implantable) cardiac defibrillator; Z87.891 Personal history of nicotine dependence; Z79.82 Long term (current) use of aspirin; Z79.899 Other long term (current) drug therapy
CPT/HCPCS: 36415; 70450; 70491; 70496; 70498; 70553; 71045; 80048; 80053; 82040; 82803; 82947; 83735; 84100; 84478; 85025; 85027; 85610; 85730; 86850; 86900; 86901; 86923; 87040; 88304; 88305; 88311; 92526; 92610; 93005; 94002; 94003; 94640; 97110; 97112; 97163; 97166; 97530; A4649; A9585; C1757; C1758; C1768; C9250; J0131; J0153; J0295; J0613; J0690; J1100; J1171; J1596; J1630; J1644; J1885; J1920; J1940; J2003; J2250; J2270; J2371; J2405; J2470; J2704; J2720; J2795; J2919; J3010; J3480; J7120; P9016; P9047; Q9967

== ENCOUNTER 2024-11-22 06:05 | Outpatient (BNV) | payer OTHER, SELFPAY | END 2024-11-25 12:51 | PROVIDERS: Admitting Provider Surgery Vascular Surgery; PCP General Practice; Visit Provider Radiology Diagnostic Radiology | DX: J38.4 Edema of larynx (principal); Z98.890 Other specified postprocedural states | CPT/HCPCS: 70491 ==

== ENCOUNTER 2024-11-22 06:05 | Outpatient (BNV) | payer OTHER, SELFPAY | END 2024-11-22 12:48 | PROVIDERS: Admitting Provider Surgery Vascular Surgery; PCP General Practice; Visit Provider Radiology Diagnostic Radiology | DX: I65.21 Occlusion and stenosis of right carotid artery (principal) | CPT/HCPCS: 70450; 70496; 70498 ==

== ENCOUNTER → 2024-11-22 06:05 | Outpatient (BNV) | payer OTHER, SELFPAY | PROVIDERS: Admitting Provider Surgery Vascular Surgery; PCP General Practice; Visit Provider Internal Medicine Critical Care Medicine | DX: I65.21 Occlusion and stenosis of right carotid artery (principal) | CPT/HCPCS: 99223 ==

== ENCOUNTER → 2024-11-22 06:05 | Outpatient (BNV) | payer OTHER, SELFPAY | PROVIDERS: Admitting Provider Surgery Vascular Surgery; PCP General Practice; Visit Provider Psychiatry & Neurology Neurology | DX: I63.9 Cerebral infarction, unspecified (principal) | CPT/HCPCS: 99222 ==

== ENCOUNTER → 2024-11-22 06:05 | Outpatient (BNV) | payer OTHER, SELFPAY | PROVIDERS: Admitting Provider Surgery Vascular Surgery; PCP General Practice; Visit Provider Internal Medicine | DX: R94.31 Abnormal electrocardiogram [ECG] [EKG] (principal) | CPT/HCPCS: 93010 ==

== ENCOUNTER → 2024-11-22 06:05 | Outpatient (BNV) | payer OTHER, SELFPAY | PROVIDERS: Admitting Provider Surgery Vascular Surgery; PCP General Practice; Visit Provider Surgery Vascular Surgery | DX: I65.21 Occlusion and stenosis of right carotid artery (principal) | CPT/HCPCS: 99232 ==

== ENCOUNTER → 2024-11-22 06:05 | Outpatient (BNV) | payer OTHER, SELFPAY | PROVIDERS: Admitting Provider Surgery Vascular Surgery; PCP General Practice; Visit Provider Surgery | DX: R13.10 Dysphagia, unspecified (principal) | CPT/HCPCS: 99222; 99232; 99499 ==

== ENCOUNTER → 2024-11-22 06:05 | Outpatient (BNV) | payer OTHER, SELFPAY | PROVIDERS: Admitting Provider Surgery Vascular Surgery; PCP General Practice; Visit Provider Internal Medicine | DX: I63.9 Cerebral infarction, unspecified (principal); E87.0 Hyperosmolality and hypernatremia; R13.10 Dysphagia, unspecified | CPT/HCPCS: 99232; 99499 ==

== ENCOUNTER 2025-01-04 12:52 | Outpatient (AMB) | payer OTHER, SELFPAY ==
--- NOTE | 2025-01-04 12:57 | A.OFFVIS_ITS ---
Vital Signs 01/04/25 12:59 Height 4 ft 11 in Intake Visit Reasons: POst Op CEA 11/22/2024 Intake Note: follow up Right CEA 11/22/24 w/ stroke and hematoma evacuation. Pt is at [facility] rehab. doing PT & OT Accompanied by: Self / Same As Patient Allergies lisinopril Allergy (Verified 01/04/25 13:02) Cough ham Allergy (Uncoded 01/04/25 13:02) hives HPI HPI POst Op CEA 11/22/2024: Details: The patient is a 54-year-old female presenting for follow-up after a complicated right carotid endarterectomy and subsequent stroke. Postoperatively, she developed a hematoma warranting an extended hospital stay. She had a tumultuous postoperative course where she was in an extended ICU stay with intubation. She subsequently underwent PEG placement due to the inability to eat and swallow. She has clear left-sided hema neglect. The patient now resides at [facility] in [place], working towards rehabilitation and has resumed a pureed diet starting last Friday. Despite this, she reports no movement on the left side, although she continues therapy, focusing on the right side. She also experiences persistent tinnitus, which continues to be monitored. She now presents for routine postop follow-up [facility] Medical History Acute hypernatremia Laryngeal edema Stroke Dissection of right carotid artery Dysphagia Hx of radiation therapy Habitual snoring Cough On beta yamini at home Pacemaker Cardiac resynchronization therapy defibrillator (ENVIRONMENTAL STUDIES DEPARTMENT CHAIR-D) in place (~06/2023) LBBB (left bundle branch block) NICM (nonischemic cardiomyopathy) Invasive ductal carcinoma of left breast (~02/2022) Anemia COPD (chronic obstructive pulmonary disease) Hypercholesteremia Bipolar 1 disorder Hypertension Surgical History History of cardiac defibrillator placement (~2022) History of cardiac cath (~2021) History of foot surgery (~2006) History of left breast biopsy (~2021) History of lumpectomy of left breast (~2021) History of hysterectomy (~2021) Family History Maternal Aunt Lupus Mother Breast cancer Social History Household Members: None Housing: Apartment Are you a primary healthcare economics consultant to a significant other at home: No Do you presently have visiting nurse or other home services: No Alcohol intake: never Patient Tobacco Use Status: Former Tobacco user Tobacco use type: Cigarette service: No 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al status: disabled 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 Female Reproductive History Menstrual Age of Menarche: 12 Review of Systems Const All systems reviewed & are unremarkable except as noted in HPI and below Reports no additional complaints Card Denies chest pain, Denies chest pain at rest, Denies chest pain with activity and Denies pedal edema Resp Denies cough GI Denies abdominal pain Musc Reports abnormal gait, Denies muscle cramps and Denies radiating pain into limb Skin/Breast Denies skin ulcer and Denies wounds Neuro Details: Clear left-sided hema-neglect upper and lower extremities Reports abnormal gait Psych Reports no additional complaints Physical Exam Const General: cooperative, healthy appearing and comfortable Orientation/consciousness: oriented to person, oriented to place and oriented to time HEENT Head: Yes normal to inspection Neck Neck: Yes normal visual inspection Carotids: no bruits Chest Chest palpation & inspection: normal inspection of the chest Resp Effort & Inspection: normal respiratory effort and able to speak in complete sentences Auscultation: clear to auscultation bilaterally, no crackles, no rales, no rhonchi and no wheezes Cardio Rate: regular rate Rhythm: regular rhythm Heart sounds: S1 normal heart sound present and S2 normal heart sound present Bruits: no carotid bruits Peripheral pulses: Peripheral pulses 2+ throughout GI Inspection: Yes normal to inspection Skin Wounds: no wounds Hair: normal Neuro General: oriented to person, oriented to place and oriented to time Cranial nerves: Yes CN's II-XII intact bilaterally Cognition (Neuro): normal cognition Motor exam (neuro): 5/5 motor strength present throughout Extrem Other: venous exam: No significant superficial varicosities or spider telangiectasias, minimal edema General: No clubbing, No cyanosis and No edema Psych Appearance: grossly normal Mental Status: mental status grossly normal Speech and movement: Normal speech and movement present Assessment & Plan Assessment & Plan (1) Carotid stenosis, right: Comment: 11/22/2024 - right carotid endarterectomy with postoperative stroke Code(s): I65.21 - Occlusion and stenosis of right carotid artery Category: Medical Plan: During this visit, I discussed with the patient the current status post right carotid endarterectomy and the subsequent stroke. I emphasized the importance of ongoing rehabilitation and the ultrasound planned in three months for the carotid assessment. Discussions included encouraging the patient to continue with her current dietary regimen and physical therapy efforts. The risk of persistent symptoms like tinnitus was acknowledged, with a plan for ongoing evaluation. We talked about the challenges and the slow progression towards recovery, and I assured her of continued support and monitoring. She will require surveillance carotid follow-up in approximately 3 months time. Plan Patient was informed and verbally consented to the use of an ambient scribe for clinic note documentation during this visit. Orders: Orders US carotid duplex BI 3 Months I65.21 - Occlusion and stenosis of right carotid artery Patient Instructions: - Continue with the current diet as recommended. - Engage actively in physical therapy sessions focusing on mobility and rehabilitation. - Report any changes or worsening of symptoms immediately. - Attend all scheduled follow-up appointments for monitoring of progress. Coding Level of Care Code Est Pt Level 3 (44950) Diagnoses Carotid stenosis, right I65.21
--- OUTSIDE RECORDS SUMMARY | 2025-01-04 15:25 | XMS_ITS | Encounter Summary ---
Author Organization [employer] Address [address] [place] [address] Care Team Providers Care Crane Hooker Name Role Phone Hilda Butt MD Primary Care Provider [phone] Reason for Visit * Reason Onset Date Comments Med Refill 03/11/2024 Encounter Details Date Type Department Care Team ([facility] st Contact Info) Description 03/11/2024 Refill [facility] [address] [place], [place] [phone] Hilda Butt MD [address] [place], [place] [phone] Social History Tobacco Use Types Packs/Day Years [...] as of this encounter Plan of Treatment Not on file documented as of this encounter Goals Goal [...] documented as of this encounter Care Teams Crane Hooker Relationship Specialty Start Date End Date Hilda Butt MD [address] [place] [address] PCP - General Family Medicine 06/20/22 documented as of this encounter
--- OUTSIDE RECORDS SUMMARY | 2025-01-04 15:25 | XMS_ITS | Encounter Summary ---
Author Organization [employer] Address [address] [place] [address] Care Team Providers Care Gas Analyst Name Role Phone Hilda Butt MD Primary Care Provider [phone] Reason for Visit * Reason Comments Med Refill Encounter Details Date Type Department Care Team ([facility] st Contact Info) Description 02/03/2023 Refill [facility] [address] [place], [place] [phone] Hilda Butt MD [address] [place], [place] [phone] Social History Tobacco Use Types Packs/Day Years [...] on file documented as of this encounter Visit Diagnoses Not on filedocumented in this encounter Additional Health Concerns Assessment Noted Time PHQ-9 Depression Total Score: 9 01/07/20 23 2:56 PM EDT documented as of this encounter Care Teams Gas Analyst Relationship Specialty Start Date End Date Hilda Butt MD [address] [place] [address] PCP - General Family Medicine 06/20/22 documented as of this encounter
--- OUTSIDE RECORDS SUMMARY | 2025-01-04 15:25 | XMS_ITS | Encounter Summary ---
Author Organization [employer] Address [address] [place] [address] 7t [place] [address] Care Team Providers Care Soc Analyst Name Role Phone Hilda Butt MD Primary Care Provider [phone] Reason for Referral * Imaging (Routine) - Closed Specialty Diagnoses / Procedures Referred By Winter roa Referred To Contact Radiology Diagnoses Vertebral artery dissection (CMS/HCC) Tinnitus of both ears Procedures CTA Neck w/ and w/o Contrast Hilda Butt MD [address] [place] [address] Phone: tel: fax: [address] Phone: tel: fax: Referral ID Status Reason Start Date Expiration Date Visits Re quested Visits Authorized [id number] Closed 03/08/2024 03/08/2025 1 1 * Imaging (Routine) - Closed Specialty Diagnoses / Procedures Referred By Winter roa Referred To Contact Radiology Diagnoses Vertebral artery dissection (CMS/HCC) Tinnitus of both ears Procedures CTA Head w/ and w/o Contrast Hilda Butt MD [address] [place] [address] Phone: tel: fax: [address] Phone: tel: fax: Referral ID Status Reason Start Date Expiration Date Visits Re quested Visits Authorized [id number] Closed 03/08/2024 03/08/2025 1 1 * Imaging (Routine) - Canceled Specialty Diagnoses / Procedures Referred By Winter t Referred To Contact Radiology Diagnoses Vertebral artery dissection (CMS/HCC) Tinnitus of both ears Procedures CTA Head Neck w/ and w/o Contrast Hilda Butt MD [address] [place] [address] Phone: tel: fax: [address] Phone: tel: fax: Referral ID Status Reason Start Date Expiration Date V isits Requested Visits Authorized [id number] Canceled 03/05/2024 03/05/2025 1 1 Encounter Details Date Type Department Care Team (Late st Contact Info) Description 03/05/2024 Orders Only [facility] [address] [place] [address] [phone] Hilda Butt MD [address] [place] [address] [phone] Vertebral artery dissection (CMS/HCC) (Primary Dx); Tinnitus [...] as of this encounter Plan of Treatment Scheduled Orders Name Type Priority Associated Diagnoses [...] EDT Narrative 06/09/2024 10:01 AM EDT ? [facility] ?[address] ?[place] [address] ? CT Scan Report ? Signed ? Patient: Brandon,Renita ?MR#: [id number] ?? 4 ? : 1970 ?Acct:[id number] ? Age/Sex: 53 / F ?ADM Date: 05/17/24 ? Loc: HO.CT ? Attending Dr: Hilda Butt MD ? Ordering Physician: Hilda Butt ?? Date of Service: 05/17/24 ?? Procedure(s): CT angio head neck ?? Accession Number(s): [id number] ? cc: Hilda Butt ? EXAMINATION: ?? [...] of the left ?? vertebral artery with xmfq-fk-hzkzmvlq luminal narrowing. ? Right Carotid: There is [...] 0957 ? DD/ 1356 ? TD/TT: ? Visual Merchandising Assistant: ? Procedure Note Donotuseinterpreter, Image - 06/09/[address] [address] [address] Scan Report Signed Patient: Adin Brandon#: [id number] 4 : 1970Acct:[id number] Age/Sex: 53 / FADM Date: 05/17/24 Loc: HO.CT Attending Dr: Hilda Butt MD Ordering Physician: Hilda Butt Date of Service: 05/17/24 Procedure(s): CT angio head neck Accession Number(s): [id number] cc: Hilda Butt EXAMINATION: CT ANGIOGRAM HEAD [...] aspect of the left vertebral artery with tnbu-rj-azlckadm luminal narrowing. Right Carotid: There is moderately [...] in OV> 06/09/24 0957 DD/ 1356 TD/TT: Visual Merchandising Assistant: Hilda Butt MD IMG CT PROCEDURES Final Result documented in this encounter Visit Diagnoses Diagnosis Vertebral artery dissection (CMS/HCC)- Primary Dissection of vertebral artery Tinnitus of both ears Unspecified tinnitus documented in this encounter Additional Health Concerns Assessment Noted Time PHQ-9 Depression Total Score: 0 11/17/19 24 10:34 AM EST documented as of this encounter Care Teams Soc Analyst Relationship Specialty Start Date End Date Hilda Butt MD [address] [place] [address] PCP - General Family Medicine 06/20/22 documented as of this encounter
--- OUTSIDE RECORDS SUMMARY | 2025-01-04 15:25 | XMS_ITS | Encounter Summary ---
Author Organization [employer] Address [address] 7t [place] [address] Care Team Providers Care Store Administrative Assistant Name Role Phone Hilda Butt MD Primary Care Provider [phone] Reason for Visit * Reason Onset Date Comments Med Refill 03/01/2024 Encounter Details Date Type Department Care Team ([facility] st Contact Info) Description 03/01/2024 Refill [facility]INE [address] [place], [place] [phone] Hilda Butt MD [address] [place], [place] [phone] Itchy skin of anus and genitals; Recurrent [...] documented as of this encounter Care Teams Store Administrative Assistant Relationship Specialty Start Date End Date Hilda Butt MD [address] [place] [address] PCP - General Family Medicine 06/20/22 documented as of this encounter
--- OUTSIDE RECORDS SUMMARY | 2025-01-04 15:25 | XMS_ITS | Encounter Summary ---
Author Organization [employer] Address [address] [facility] [address] 7t [place] [address] Care Team Providers Care Jar Filler Name Role Phone Hilda Butt MD Primary Care Provider [phone] Reason for Visit * Reason Onset Date Comments Med Refill 03/11/2024 Encounter Details Date Type Department Care Team ([facility] Contact Info) Description 03/11/2024 Refill [facility] CHC MED & PEDS [address] [place], [place] [phone] Hilda Butt MD [address] [place] [address] Itchy skin of anus and genitals; Recurrent [...] documented as of this encounter Care Teams Jar Filler Relationship Specialty Start Date End Date Hilda Butt MD [address] [place] [address] PCP - General Family Medicine 06/20/22 documented as of this encounter
--- OUTSIDE RECORDS SUMMARY | 2025-01-04 15:25 | XMS_ITS | Encounter Summary ---
Author Organization [employer] Address [address] 7t [place] [address] Care Team Providers Care Subassembly Supervisor Name Role Phone Hilda Butt MD Primary Care Provider Encounter Details Date Type Department Care Team ([facility] st Contact Info) Description 03/24/2024 Orders Only [facility] MEDICINE [address] [place], [place] [phone] Hilda Butt MD [address] [place], [place] [phone] Vertebral artery dissection (CMS/HCC) (Primary Dx) Social [...] documented as of this encounter Care Teams Subassembly Supervisor Relationship Specialty Start Date End Date Hilda Butt MD [address] [place] [address] PCP - General Family Medicine 06/20/22 documented as of this encounter
--- OUTSIDE RECORDS SUMMARY | 2025-01-04 15:25 | XMS_ITS | Encounter Summary ---
Author Organization [employer] Address [address] [facility] 7t [place] [address] Care Team Providers Care Center Mgr Name Role Phone Hilda Butt MD Primary Care Provider [phone] Encounter Details Date Type Department Care Team ([facility] Contact Info) Description 12/30/2022 Orders Only [facility] MED[facility]INE [address] [place] [address] Hilda Butt MD [address] [place] [address] Low back pain at multiple sites (Primary [...] laterality documented in this encounter Care Teams Center Mgr Relationship Specialty Start Date End Date Hilda Butt MD [address] [place] [address] PCP - General Family Medicine 06/20/22 documented as of this encounter
--- OUTSIDE RECORDS SUMMARY | 2025-01-04 15:26 | XMS_ITS | Encounter Summary ---
Author Organization [employer] Address [address] 7t [place] [address] Care Team Providers Care Sediment Remediation Consultant Name Role Phone Hilda Butt MD Primary Care Provider [phone] Reason for Visit * Reason Onset Date Comments Med Refill 04/22/2024 Encounter Details Date Type Department Care Team ([facility] st Contact Info) Description 04/22/2024 Refill [facility] MEDICINE [address] [place], [place] [phone] Hilda Butt MD [address] [place], [place] [phone] Social History Tobacco Use Types Packs/Day Years [...] documented as of this encounter Care Teams Sediment Remediation Consultant Relationship Specialty Start Date End Date Hilda Butt MD [address] [place] [address] PCP - General Family Medicine 06/20/22 documented as of this encounter
--- OUTSIDE RECORDS SUMMARY | 2025-01-04 15:26 | XMS_ITS | Encounter Summary ---
Author Organization [employer] Address [address] 7t [place] [address] Care Team Providers Care Process Controls Technician Name Role Phone Hilda Butt MD Primary Care Provider [phone] Reason for Visit * Reason Onset Date Comments Med Refill 04/22/2024 Encounter Details Date Type Department Care Team ([facility] st Contact Info) Description 04/22/2024 Refill [facility] MED[facility]INE [address] [place], [place] [phone] Hilda Butt MD [address] [place], [place] [phone] Social History Tobacco Use Types Packs/Day Years [...] documented as of this encounter Care Teams Process Controls Technician Relationship Specialty Start Date End Date Hilda Butt MD [address] [place] [address] PCP - General Family Medicine 06/20/22 documented as of this encounter
--- OUTSIDE RECORDS SUMMARY | 2025-01-04 15:26 | XMS_ITS | Encounter Summary ---
Author Organization [employer] Address [address] 7t [place] [address] Care Team Providers Care Exercise Planner Name Role Phone Hilda Butt MD Primary Care Provider [phone] Reason for Visit * Reason Onset Date Comments Med Refill 11/03/2024 Encounter Details Date Type Department Care Team ([facility] st Contact Info) Description 11/03/2024 Refill [facility] MEDICINE [address] [place], [place] [phone] Hilda Butt MD [address] [place], [place] [phone] Social History Tobacco Use Types Packs/Day Years [...] documented as of this encounter Care Teams Exercise Planner Relationship Specialty Start Date End Date Hilda Butt MD [address] [place] [address] PCP - General Family Medicine 06/20/22 documented as of this encounter
--- OUTSIDE RECORDS SUMMARY | 2025-01-04 15:26 | XMS_ITS | Encounter Summary ---
Author Organization [employer] Address [address] 7t [place] [address] Care Team Providers Care Final Dressing Cutter Name Role Phone Hilda Butt MD Primary Care Provider [phone] Reason for Visit * Reason Onset Date Comments Med Refill 11/05/2024 Encounter Details Date Type Department Care Team ([facility] st Contact Info) Description 11/05/2024 Refill [facility] MEDICINE [address] [place], [place] [phone] Hilda Butt MD [address] [place], [place] [phone] Social History Tobacco Use Types Packs/Day Years [...] documented as of this encounter Care Teams Final Dressing Cutter Relationship Specialty Start Date End Date Hilda Butt MD [address] [place] [address] PCP - General Family Medicine 06/20/22 documented as of this encounter
--- OUTSIDE RECORDS SUMMARY | 2025-01-04 15:26 | XMS_ITS | Encounter Summary ---
Author Organization [employer] Address [address] 7t [place] [address] Care Team Providers Care Code Enforcement Officer Name Role Phone Hilda Butt MD Primary Care Provider [phone] Reason for Visit * Reason Onset Date Comments Med Refill 11/19/2024 Encounter Details Date Type Department Care Team ([facility] st Contact Info) Description 11/19/2024 Refill [facility] CHC MED & PEDS [address] [place], [place] [phone] Hilda Butt MD [address] [place] [address] Social History Tobacco Use Types Packs/Day Years [...] documented as of this encounter Care Teams Code Enforcement Officer Relationship Specialty Start Date End Date Hilda Butt MD [address] [place] [address] PCP - General Family Medicine 06/20/22 documented as of this encounter
--- OUTSIDE RECORDS SUMMARY | 2025-01-04 15:26 | XMS_ITS | Encounter Summary ---
Author Organization [employer] Address [address] [place] [address] Care Team Providers Care Supervisor Mill Name Role Phone Hilda Butt MD Primary Care Provider Reason for Visit * Reason Onset Date Comments Med Refill 02/25/2024 Encounter Details Date Type Department Care Team ([facility] st Contact Info) Description 02/25/2024 Refill [facility] MEDICINE [address] [place], [place] [phone] Hilda Butt MD [address] [place], [place] [phone] Dizziness Social History Tobacco Use Types Packs/Day [...] documented as of this encounter Care Teams Supervisor Mill Relationship Specialty Start Date End Date Hilda Butt MD [address] [place] [address] PCP - General Family Medicine 06/20/22 documented as of this encounter
--- OUTSIDE RECORDS SUMMARY | 2025-01-04 15:26 | XMS_ITS | Encounter Summary ---
Author Organization [employer] Address [address] 7t [place] [address] Care Team Providers Care Rn Case Management Name Role Phone Hilda Butt MD Primary Care Provider [phone] Reason for Visit * Reason Onset Date Comments Med Refill 08/20/2024 Encounter Details Date Type Department Care Team ([facility] st Contact Info) Description 08/20/2024 Refill [facility] CHC MED & PEDS [address] [place], [place] [phone] Hilda Butt MD [address] [place] [address] Social History Tobacco Use Types Packs/Day Years [...] as of this encounter Care Teams Rn Case Management Relationship Specialty Start Date End Date Hilda Butt MD [address] [place] [address] PCP - General Family Medicine 06/20/22 documented as of this encounter
--- OUTSIDE RECORDS SUMMARY | 2025-01-04 15:26 | XMS_ITS | Encounter Summary ---
Author Organization [employer] Address [address] 7t [place] [address] Care Team Providers Care Hose Inspector And Patcher Name Role Phone Hilda Butt MD Primary Care Provider [phone] Encounter Details Date Type Department Care Team ([facility] Contact Info) Description 09/21/2024 Orders Only [facility] MEDICINE [address] [place], [place] [phone] Hilda Butt MD [address] [place], [place] [phone] Social History Tobacco Use Types Packs/Day Years [...] documented as of this encounter Care Teams Hose Inspector And Patcher Relationship Specialty Start Date End Date Hilda Butt MD [address] [place] [address] PCP - General Family Medicine 06/20/22 documented as of this encounter
--- OUTSIDE RECORDS SUMMARY | 2025-01-04 15:26 | XMS_ITS | Encounter Summary ---
Author Organization [employer] Address [address] 7[address] [place] [address] Care Team Providers Care Wool Merchant Name Role Phone Hilda Butt MD Primary Care Provider [phone] Reason for Visit * Reason Onset Date Comments Med Refill 11/19/2024 Encounter Details Date Type Department Care Team ([facility] st Contact Info) Description 11/19/2024 Refill [facility] MEDICINE [address] [place], [place] [phone] Hilda Butt MD [address] [place], [place] [phone] Chronic obstructive pulmonary disease with acute exacerbation [...] documented as of this encounter Care Teams Wool Merchant Relationship Specialty Start Date End Date Hilda Butt MD [address] [place] [address] PCP - General Family Medicine 06/20/22 documented as of this encounter
--- OUTSIDE RECORDS SUMMARY | 2025-01-04 15:26 | XMS_ITS | Encounter Summary ---
Author Organization [employer] Address [address] [facility] [place] [address] Care Team Providers Care Foam Rubber Molder Name Role Phone Hilda Butt MD Primary Care Provider Reason for Visit * Reason Onset Date Comments Med Refill 05/25/2024 Encounter Details Date Type Department Care Team ([facility] st Contact Info) Description 05/25/2024 Refill [facility] CHC MED & PEDS [address] [place], [place] [phone] Hilda Butt MD [address] [place] [address] Social History Tobacco Use Types Packs/Day Years [...] documented as of this encounter Care Teams Foam Rubber Molder Relationship Specialty Start Date End Date Hilda Butt MD [address] [place] [address] PCP - General Family Medicine 06/20/22 documented as of this encounter
--- OUTSIDE RECORDS SUMMARY | 2025-01-04 15:26 | XMS_ITS | Encounter Summary ---
Author Organization [employer] Address [address] 7[address] [place] [address] Care Team Providers Care Receivable Executive Name Role Phone Hilda Butt MD Primary Care Provider [phone] Reason for Visit * Reason Onset Date Comments Med Refill 02/25/2024 Encounter Details Date Type Department Care Team ([facility] st Contact Info) Description 02/25/2024 Refill [facility] MEDICINE [address] [place], [place] [phone] Hilda Butt MD [address] [place], [place] [phone] Itchy skin of anus and genitals; Recurrent [...] documented as of this encounter Care Teams Receivable Executive Relationship Specialty Start Date End Date Hilda Butt MD [address] [place] [address] PCP - General Family Medicine 06/20/22 documented as of this encounter
--- OUTSIDE RECORDS SUMMARY | 2025-01-04 15:26 | XMS_ITS | Encounter Summary ---
Author Organization [employer] Address [address] [facility] 7t [place] [address] Care Team Providers Care Installations Inspector Name Role Phone Hilda Butt MD Primary Care Provider [phone] Reason for Visit * Reason Onset Date Comments Med Refill 05/10/2024 Encounter Details Date Type Department Care Team ([facility] st Contact Info) Description 05/10/2024 Refill [facility] MEDICINE [address] [place], [place] [phone] Hilda Butt MD [address] [place], [place] [phone] Social History Tobacco Use Types Packs/Day Years [...] documented as of this encounter Care Teams Installations Inspector Relationship Specialty Start Date End Date Hilda Butt MD [address] [place] [address] PCP - General Family Medicine 06/20/22 documented as of this encounter
--- OUTSIDE RECORDS SUMMARY | 2025-01-04 15:26 | XMS_ITS | Encounter Summary ---
Author Organization [employer] Address [address]t [place] [address] Care Team Providers Care Thrill Performer Name Role Phone Hilda Butt MD Primary Care Provider [phone] Reason for Visit * Reason Onset Date Comments Med Refill 11/17/2024 Encounter Details Date Type Department Care Team ([facility] st Contact Info) Description 11/17/2024 Refill [facility] MEDICINE [address] [place], [place] [phone] Hilda Butt MD [address] [place], [place] [phone] Social History Tobacco Use Types Packs/Day Years [...] documented as of this encounter Care Teams Thrill Performer Relationship Specialty Start Date End Date Hilda Butt MD [address] [place] [address] PCP - General Family Medicine 06/20/22 documented as of this encounter
--- OUTSIDE RECORDS SUMMARY | 2025-01-04 15:26 | XMS_ITS | Encounter Summary ---
Author Organization [employer] Address [address] [facility] [address] 7t [place] [address] Care Team Providers Care Associate Professor Of English Name Role Phone Hilda Butt MD Primary Care Provider [phone] Reason for Visit * Reason Onset Date Comments Med Refill 08/10/2024 Encounter Details Date Type Department Care Team ([facility] st Contact Info) Description 08/10/[address] [facility] CHC MED & PEDS [address] [place], [place] [phone] Hilda Butt MD [address] [place] [address] Social History Tobacco Use Types Packs/Day Years [...] documented as of this encounter Care Teams Associate Professor Of English Relationship Specialty Start Date End Date Hilda Butt MD [address] [place] [address] PCP - General Family Medicine 06/20/22 documented as of this encounter
--- OUTSIDE RECORDS SUMMARY | 2025-01-04 15:26 | XMS_ITS | Encounter Summary ---
Author Organization [employer] Address [address] [facility] [address]t [place] [address] Care Team Providers Care Account Planner Name Role Phone Hilda Butt MD Primary Care Provider [phone] Reason for Visit * Reason Comments Med Refill Encounter Details Date Type Department Care Team ([facility] st Contact Info) Description 11/16/2024 Refill [facility] MEDICINE [address] [place], [place] [phone] Hilda Butt MD [address] [place], [place] [phone] Vitamin D deficiency Social History Tobacco Use [...] documented as of this encounter Care Teams Account Planner Relationship Specialty Start Date End Date Hilda Butt MD [address] [place] [address] PCP - General Family Medicine 06/20/22 documented as of this encounter
--- OUTSIDE RECORDS SUMMARY | 2025-01-04 15:26 | XMS_ITS | Continuity of Care Document ---
Author Organization [facility], [facility] Address [address] [place] [address] Care Team Providers Care Counter Waitress/Waiter Name Role Phone LINDA GOFF - 4TH FLOOR OTHER FRANNIE ARSHAD Primary Care Provider Assessment No assessment recorded. Plan of Treatment Reminders Order Date Submit Date Provider Last Modified By Organization Details Last Modified Time Details Appointments None record ed. Lab None record ed. Referral None record ed. Procedures None record ed. Surgeries None record ed. Imaging None record ed. Medication Orders None record ed. Patient TargetsNo targets recorded. Patient InstructionsNo instructions recorded. Reason for Referral None Reported. Problems Name Problem SNOMED Code Status Onset Date Resolution Date Notes Provider Name and Address Organization Details Recorded Time Dysphagia 20668852 Active 2024 Jessica [place] NP [address] , [address], [place], [address], [facility] 5 15:19:53 Left hemiplegia 135738063 Active 2024 Jessica [place] NP [address] , [address], [place], [address], [facility] 5 15:20:52 Cerebrovascula r accident 288983009 Active 2024 Jessica [place] NP [address], [address], [place], [address], [facility] 5 15:20:58 Carotid artery stenosis 13206890 Active 2024 Jessica [place] NP [address], [address], [place], [address], [facility] 5 15:22:09 Congestive heart failure 53577322 Active 2024 Jessica [place] NP [address], [address], [place], [address], [place] [facility] 5 15:22:17 Chronic obstructive pulmonary disease 02716529 Active 2024 Jessica [place] NP [address], [address], [place], [address], [place] [facility] 5 15:22:23 Automatic implantable cardiac defibrillator in situ 215272717 Active 2024 Jessica [place] NP [address], [address], [place], [address], [place] [facility] 5 15:22:38 Bipolar disorder 75408080 Active 2024 Jessica [place] NP [address], [address], [place], [address], [place] [facility] 5 15:22:46 Hypoxia 849740797 Active 2024 Jessica [place] NP [address], [address], [place], [address], [place] [facility] 5 15:24:15 Hypertensive disorder 15216210 Active 2024 Jessica [place] NP [address], [address], [place], [address], [place] [facility] 5 15:24:34 Hyperlipidemia 71488950 Active 2024 Jessica [place] NP [address], [address], [place], [address], [facility] 5 15:24:44 Anemia 553939381 Active 2024 Jessica [place] NP [address], [address], [place], [address], [facility] 5 15:40:32 Gastroesophage al reflux disease 337740028 Active 2024 Jessica [place] NP [address], [place], [address], [place] [facility] 5 15:45:51 Problem Notes None recorded. Medical Equipment None Reported. Allergies Allergen ID Allergen Name Allergen Category Reaction Reaction Severity Criticality Documentation Date Start Date Code Code System Note Provider Name and Address Organization Details Recorded Time 09862 lisinopri l medicatio n other Not available unabletoasse ss 12/09/2024 51079 RxNorm unkno wn Not Available Not Available Not Available Medications Not known to be on any medication Vitals None Recorded Social History Question Answer Notes LastModified by Organizat ion Details LastModified Time Tobacco Smoking Status Former Smoker Jessica [place] NP [address], [address], [place], [address], [facility] 12/09/2024 15:31:49 Do You Have An Advance Directive? Yes Information not available 12/09/2024 What Is Your Level Of Alcohol Consumption? None Information not available 12/09/2024 What Is Your Code Status? Full Code No Dialysis Information not available 12/09/2024 Where Do You Live? Apartment Information not available 12/09/2024 What Was The Date Of Your Most Recent Tobacco Screening? 12/09/2024 Na Information not available 12/09/2024 Do You Have An Out Of Hospital DNR? No Information not available 12/09/2024 How Much Tobacco Do You Smoke? 1 PPW Unknown Information not available 12/09/2024 Do You Or Have You Ever Used Any Other Forms Of Tobacco Or Nicotine? No Information not available 12/09/2024 Sex: Female Functional Status None recorded. Mental Status None recorded. Family History Nothing Reported Notes:maternal aunt lupus mo ther breast cancer Medical History No medical history recorded. Gynecological HistoryNo gynecological history recorded. Obstetrics History GPAL:G 0 P 0 0 0 0 Immunizations Vaccine Type Date Status Note Provider Nam e and Address Organization Details Recorded Time [facility], unspecified formulation [facility]00 Hep B, unspecified formulation [facility] 15:28:09 Hep B, unspecified formulation 4 completed Rossi servin, [facility] 12/09/2024 15:28:17 Tdap 4 completed Rossi Yomi null, [facility] 12/09/2024 15:29:05 Tdap 4 completed Rossi Yomi null, [facility] 12/09/2024 15:29:14 Pneumococcal conjugate PCV 13 4 completed Rossi Yomi null, [facility] 12/09/2024 15:29:28 pneumococcal polysaccharide PPV23 1 completed Rossi Yomi null, [facility] 12/09/2024 15:29:45 influenza, unspecified formulation 3 completed Rossi Yomi null, [facility] 12/09/2024 15:30:08 influenza, unspecified formulation 4 completed Rossi Yomi null, [facility] 12/09/2024 15:30:14 Hep A, unspecified formulation 4 completed Rossi Yomi null, [facility] 12/09/2024 15:30:29 Hep A, unspecified formulation 4 completed Rossi Yomi null, [facility] 12/09/2024 15:30:37 SARS-COV-2 (COVID-19) vaccine, UNSPECIFIED 1 completed Rossi Yomi null, [facility] 12/09/2024 15:31:01 SARS-COV-2 (COVID-19) vaccine, UNSPECIFIED 2 completed Rossi Yomi null, [facility] 12/09/2024 15:31:08 SARS-COV-2 (COVID-19) vaccine, UNSPECIFIED 3 completed Rossi Yomi null, [facility] 12/09/2024 15:31:17 SARS-COV-2 (COVID-19) vaccine, UNSPECIFIED 4 completed Rossi Yomi null, [facility] 12/09/2024 15:31:25 zoster, unspecified formulation 2 completed Rossi Yomi null, [facility] 12/09/2024 15:31:41 zoster, unspecified formulation 2 completed Rossi [facility] 12/09/2024 15:31:51 Past Encounters Encounter ID Performer Location Encounter Start Date Encounter Closed Date Diagnosis/Indication Diagnosis SNOMED-CT Code Diagnosis ICD10 Code Diagnosis Note [id number] Jessica [place] NP [address] [place] [address] 12/09/2024 15:03:43 12/10/2024 13:27:31 Carotid artery stenosis 07284896 I65.29 sp right carotid endarterec jaida, performed on 11/22/24. She suffered a right carotid dissection , hematoma, as well as a CVA, which left her with left sided hemiplegia and dysphagia now on tube feedsmonit or s/s of infectionv itals qd x 2 weeksbmp and cbc weekly x 3 weeks Cerebrovas cular accident 868764672 I63.9 sp right carotid endarterec jaida, performed on 11/22/24. She suffered a right carotid dissection , hematoma, as well as a CVA, which left her with left sided hemiplegia and dysphagia now on tube feedsPT OT eval and treatsuppo rtive careturn and position freqmonito r Left hemiplegia 84622824 8 G81.90 see above Dysphagia 52325399 R13.1 0 NPOmeds through g tubegoal:J evity 1.0 kcal 50cc/hr wtih 240 ml water flush q 8 hours*On return from the hospital all meds are listed as PO, however she is NPO and has been receiving meds through gtube in hospital. Will leave for now and assess if some meds need to be changed if needed. Currently all meds changed to gtube here.dieti aleshia to followmoni tor Hypoxia 202902258 G47.34 Pt with intubation rt hypoxia now resolvedmo nitor for sequelae Congestive heart failure 23393351 I50.9 chffurosem rashad 20 mg po qdmonitor bmp and s/s of Chronic ob structive pulmonary disease 15731101 J44.9 hx montelukas t 10 mg po qhscetiriz ine 10 mg po qd prnalbuter ol inhaler 2 inh q 6 hrs prn sobmonitor Automatic implantable cardiac defibrillator in situ 662581781 Z95.810 has cad with cath in past with LBBB and states pacemaker and defibrilla tor in hxmonitor Hypertensive disorder 38 785126 I10 amiodarone 400 mg po bid x 7days, then 200 mg po qd for 21 days, then stopentres to 24-36 po bidmetopro lol succinate 50 mg po qdspirolac tone 25 mg po qdmonitor Anemia 955990895 D64.9 hx offerrous sulfate 325 mgpo qd with vit c qdmonitor cbc and for s/s of bleeding Hyperlipidemia 70941182 E78.5 asa 81 mg qdatorvast atin 80 mg qhsentrest o 24-36 po bidmonitor Bipolar disorder 7728865 4 F31.9 hx ofsertrali ne 50 mg qdmonitor [id number] Benjamin Kim MD [address] [address] 12/13/2024 08:52:27 12/14/2024 15:40:23 Unsteady when walking 46378675 R26.89 PT OT eval and treatto determine baseline Carotid ar jonas stenosis 72923368 I65.21 see HPIright carotid endarterec jaida last OctoberSu fered carotid dissection and CVA with resultant left hemiplegia and dysphagia requiring patient to be NPO with g-tube placedlipi tor 80 mg qdasa 81 mg qdupdate surgery with concerns Cerebrovas cular accident 296732882 I63.031 resultant left hemiplegia and dysphagiaP T OT eval and treatmonit or for improvemen t in function Left hemiplegia 04802027 8 G81.04 see above Dysphagia 14519232 I69.3 91 currently NPOg-tube dependents peech and dietary to followcont inue tube feeds Hypoxia 948393021 G47.34 Pt with intubation rt hypoxia now resolvedmo nitor for sequelae Congestive heart failure 61193500 I50.22 lasix 20 mg qdentresto 24-26 mg bidmonitor respirator y and fluid status Chronic ob structive pulmonary disease 19470829 J41.1 carrying dxcontinue out patient medsmonito r respirator y status and albuterol utilizatio n Automatic implantable cardiac defibrillator in situ 703591282 Z95.810 currently maintained onamiodaro ne taper, hx LBBBknown cad continued on asa, statin, and beta yamini Hypertensive disorder 38 348550 I10 entresto 24-36 po bidmetopro lol 50 mg po qdlasix 20 mg qdspirolac tone 25 mg po qdmonitor bp and need to titrate Anemia 127578019 D50.8 monitor cbciron studies prncontinu e supplement s Bipolar disorder 6983701 4 F31.89 carrying dx added to PMHzoloft 50 mg qdmonitor sxpsych eval prn Coronary arteriosclerosis 69580934 I25.10 lipitor 80 mg qdasa 81 mg qdmetoprol ol 50 mg qdmonitor sx [id number] Jessica [place] NP [address] [address] 12/16/2024 10:30:08 12/17/2024 16:22:16 Carotid artery stenosis 03013325 I65.29 sp right carotid endarterec jaida, performed on 11/22/24. She suffered a right carotid dissection , hematoma, as well as a CVA, which left her with left sided hemiplegia and dysphagia on tube feedscontm onitor s/s of infection, steri strips no offvitals qd x 2 weeksfu with surgery prnbmp and cbc weekly x 3 weeks Cerebrovas cular accident 929696978 I63.9 sp right carotid endarterec jaida, performed on 11/22/24.Sh e suffered a right carotid dissection , hematoma, as well as a CVA, which left her with left sided hemiplegia and dysphagia on tube feedsPT OT eval and treatsuppo rtive careturn and position freqassist jon with adlsmonito r Left hemiplegia 19846423 8 G81.94 see above Dysphagia 99166647 R13.1 0 NPOmeds through g tubecont g tube feedingsdi etician to eval and change feedings when jevity 1.0 kcal available and leave a few hrs off in day for activities as requested by pt.goal:Je vity 1.0 kcal 50cc/hr wtih 240 ml water flush q 8 hours*On return from the hospital all meds are listed as PO, however she is NPO and has been receiving meds through gtube in hospital.d ietician to follow closelymon itor Congestive heart failure 31518860 I50.9 chffurosem rashad 20 mg po qdmonitor bmp and s/s of chf Hypertensive disorder 38 998893 I10 contamioda luanne 400 mg po bid x 7days, 200 mg po qd for 21 days, then stop for taperentre sto 24-36 po bidmetopro lol succinate 50 mg po qdspirolac tone 25 mg po qdmonitor Anemia 028833469 D64.9 hx offerrous sulfate 325 mg po qd with vit c qdmonitor cbc and for s/s of bleeding Bipolar disorder 2551845 4 F31.9 hx ofsertrali ne 50 mg qdmonitor Candidiasis of mouth 797 75247 B37.0 nystatin swish and spit x 10 daysenhanc ed teethbrush ing and oral caremouth swab with mouthwash at bedsidemon itor Chronic pain 11464243 G8 9.29 pt with pain to lower legs(pt states tyl does not work and doesn't want it)states she was on gabapentin and ibuprofen prior at home that worked welltyl prnibuprof en 400 mg gtube bidgabapen tin 100 mg tab gtube bidmonitor for relief and adjustment [id number] Jessica [place] NP [facility] [address] 12/17/2024 16:03:43 12/21/2024 09:59:18 Bipolar disorder 98505206 F31.9 hx ofsertrali ne 50 mg qdmonitor Insomnia 424435585 G47.0 0 12/17 start melatonin 5 mg po qhspsych consult [id number] MARY SHARP NP [facility] [address] [address] 12/21/2024 11:17:22 12/23/2024 12:10:51 Insomnia 436267314 G47.00 Started melatonin 5 mg po qhs on 12/17 - not effective - increase to 10 mg q hsReferred to psychMonit or Bipolar disorder 2584465 4 F31.9 hx ofcontinue sertraline 50 mg qdCurrentl y with issues sleeping - melatonin added and referred to Psychmonit or Candidiasis of mouth 797 65009 B37.0 nystatin swish and spit x 10 days addedMaint ain oral care including brushing tonguemoni tor Chronic pain 25325742 G8 9.29 pt with pain to lower legs, still with pain specifical ly to LLE today, meds not helping much Currently on:ibuprof en 400 mg gtube bidgabapen tin 100 mg tab gtube bid Declines APAP as doesn't work Plan - as above -Increase ibuprofen and gabapentin to tidRefer to Dr. Flores for eval and tx. monitor for relief and adjustment Carotid ar jonas stenosis 95375208 I65.29 sp right carotid endarterec jaida, performed on 11/22/24. She suffered a right carotid dissection , hematoma, as well as a CVA, which left her with left sided hemiplegia and dysphagia on tube feedscontm onitor s/s of infection, steri strips no offvitals qd x 2 weeksfu with surgery prnbmp and cbc weekly x 3 weeks Cerebrovas cular accident 568920714 I63.9 sp right carotid endarterec jaida, performed on 11/22/24.Sh ashley suffered a right carotid dissection , hematoma, as well as a CVA, which left her with left sided hemiplegia and dysphagia on tube feeds Currently with LLE pain, specifical ly hamstring areaMeds being adjusted - currently on ibuprofen 400 mg bid and gabapentin bidSpoke with rehab, do not feel pain is related to increased tone. Plan -Continue PT OT SLPContinu e ASA 81 mg qd, atorvastat in 80 mg qdAdd APAP 1 gm tid, d/c prn orderIncre ase ibuprofen and gabapentin to tidRefer to Dr. Flores for further assessment and pain mgmt.Monit or Left hemiplegia 70954334 8 G81.94 see above Dysphagia 46660589 R13.1 0 NPOmeds through g tubecont g tube feedings - currently on jevity 1.5 @ 50 cc/h x20 h per daydietici an followingS LP eval and tx as indicatedM onitor labs, weights, s/s aspiration . Congestive heart failure 20333641 I50.9 Continue:f urosemide 20 mg po qdentresto 24-36 po bidspirola ctone 25 mg po qdmonitor bmp and s/s of chf Hypertensive disorder 38 741316 I10 contentres to 24-36 po bidmetopro lol succinate 50 mg po qdspirolac tone 25 mg po qdlasix 20 mg qdmonitor Anemia 493060305 D64.9 hx offerrous sulfate 325 mg po qd with vit c qdmonitor cbc and for s/s of bleeding Automatic implantable cardiac defibrillator in situ 642952324 Z95.810 currently maintained onamiodaro ne taper, hx LBBBknown cad continued on asa, statin, and beta yamini Health Concerns Section Related Observation LastModified by Organization Detai ls LastModified Time None Recorded Concern Status LastModified by Organization Details LastModified Time None Recorded Payers Encounter Date Sequence Insurance Name Policy Number Policy [employer] Covered Member ID [employer] Member ID Guarantor Name 12/21/2024 1 [facility] - DOS ON OR AFTER 2023 - MEDICARE [place]VANTAGE [place]MED[place] REPLACEMENT/ADV ANTAGE - PPO) Renita Brandon [id number] Renita Brandon Notes Date Note Type Note Provider Name and Address Organization Details Recorded Time 025 text/ht ml Renita is seen today for an acute visit. She is a 54 yo female admit from hospital who underwent right carotid endarterectomy last October. 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 Complicated by laryngeal edema post intubation. So far while here, Renita has been working with rehab.Meds being adjusted to help with pain and sleep.Also started nystatin S&S last week for oral thrush.Per nsg., still having pain issues on current meds. Upon exam, Renita is in bed, alert, NAD. She says she is not sleeping despite adding melatonin, and is still having pain despite the med adjustments. She says the pain is mostly LLE, hamstring area. Otherwise she is ok. Case discussed with rehab, they do not feel she has much issue with increased tone at this time in regards to the leg pain.Does not appear she has been seen by PMR yet. Currently on:APAP prnIbuprofen 400 mg bidgabapentin 100 mg bidmelatonin 5 mg qhs PMH significant forcarotid artery stenosishldhtnchfanemiagerdbipolar dxcopd MARY SHARP NP [address] [facility], [address], [place], [address] , [facility] [employer] [facility] 12/21/2024 11:49:56 OBGyn Episode No OBEpisode recorded.
--- OUTSIDE RECORDS SUMMARY | 2025-01-04 15:26 | XMS_ITS | Clinical Summary ---
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 04/05/20 24 Active triamcinolone (Kenalog) 0.1 % cream APPLY A THIN LAYER TOPICALLY TO THE AFFECTED AREA(S) TWICE A DAY 454 g 1 04/22/20 24 Active lidocaine-priloc conner (Emla) 2.5-2.5 % cream APPLY TOPICALLY EVERY MORNING 100 g 3 05/17/20 24 Active fish oil ([place]-3) 500 MG capsule Take 1 capsule (500 [...] 025 Active albuterol 108 (90 Base) MCG/ACT inhalerIndicatio ns:Chronic obstructive pulmonary disease with acute exacerbation (CMS/HCC) Inhale 2 puffs every 4 (four) hours if needed for wheezing or shortness of breath. 18 g 11 07/05/20 24 Active Breztri Aerosphere 160-9-4.8 MCG/ACT aerosol Take 2 puffs by mouth 2 times daily. 07/06/20 24 Active fluticasone (Flonase Allergy Relief) 50 MCG/ACT nasal sprayIndications :Recurrent acute serous otitis media of right ear SPRAY 2 SPRAYS INTO EACH NOSTRIL TWICE A DAY 16 g 3 07/20/20 24 Active furosemide (Lasix) 20 MG tabletIndication s:Lower extremity edema TAKE 1 TABLET BY MOUTH TWICE DAILY IN THE MORNING AND IN THE EVENING ^1R1,1R3 270 tablet 3 07/21/20 24 Active Ascorbic Acid (vitamin C) 250 MG tablet TAKE 1 TABLET BY MOUTH EACH MORNING WITH IRON ^1R1 90 tablet 3 07/21/20 24 Active Emollient (DermaPhor) ointmentIndicati ons:Itchy skin of anus and genitals APPLY TO AFFECTED AREA(S) OF DRY SKIN NEEDED (BULK) 396 g 3 07/28/20 24 Active ibuprofen 800 MG tabletIndication s:Neck pain TAKE ONE TABLET BY MOUTH EVERY [...] IRRITATION 113 g 3 11/05/19 25 Active cholecalciferol VITAMIN D (Vitamin D-3) 50 MCG (1999 UT) capsuleIndicatio ns:Vitamin D deficiency TAKE ONE CAPSULE BY MOUTH EVERY MORNING ^1R1 30 capsule 5 12/08/19 25 Active Petrolatum 42 % ointment APPLY TOPICALLY TO AFFECTED AREAS NEEDED DAILY FOR DRY SKIN (BULK) 100 g 12/08/19 25 Active betamethasone valerate (Valisone) 0.1 % ointment APPLY TO AFFECTED AREA(S) OF FINGER SPARINGLY ONCE DAILY FOR 7-10 DAYS (BULK) 15 g 1 12/08/19 25 Active pantoprazole (ProtoNix) 40 MG EC tablet TAKE 1 TABLET BY MOUTH TWICE DAILY IN THE MORNING AND AT BEDTIME ^1R1,1R4 60 tablet 5 12/08/19 25 Active D3 Super Strength 50 MCG (1999 UT) capsuleIndicatio ns:Vitamin D deficiency TAKE 1 CAPSULE BY MOUTH EVERY MORNING 90 capsule 3 01/09/20 24 025 Discontinued pantoprazole (ProtoNix) 40 MG EC tablet TAKE 1 TABLET BY MOUTH TWICE DAILY IN THE MORNING AND AT BEDTIME ^1R1,1R4 120 tablet 3 04/20/20 24 025 Discontinued betamethasone valerate (Valisone) 0.1 % ointment APPLY TO AFFECTED AREA(S) OF FINGER SPARINGLY ONCE DAILY FOR 7-10 DAYS (BULK) 15 g 1 07/28/20 24 025 Discontinued Petrolatum 42 % ointment APPLY TOPICALLY TO AFFECTED AREA(S) NEEDED DAILY FOR DRY SKIN 100 g 11/17/19 25 025 Discontinued Active Problems Problem Noted Date Diagnosed Date Screening for cervical cancer 02/20/2024 Stenosis of both internal carotid arteries 01/22 Assessment & Plan (11/03/2024 8:18 AM EST): Followed by cards and vascular for this 12/2023 study 50-79% stenosis yeny, CTA 05/19 increased to 80-99% R side Will have R endarterectomy 11/22/24 Letter given for increased TIRE SPECIALIST hours in post-op period ER precautions Assessment [...] Plan (11/19/2023 11:17 AM EST): [place] [facility] [place] Urticarial rash 10/21/2023 Assessment & Plan (10/21/2023 [...] and results to Dr Ramirez, neurologist at [facility] regarding her sensation of pain and buzzing in the ears and head and whether it is related to history of vertebral artery dissection Assessment & Plan (02/24/2024 8:17 AM EDT): Unclear exactly what happened with neurologist Dr Rodrigues at [facility], she claims she was told she could not be seen at their practice and referred to [facility]. - recommend CT scan to evaluate dissection - see Dr Ramirez at [facility] Assessment & Plan (11/19/2023 11:22 AM [...] & Plan (11/03/2024 8:20 AM EST): Had SUPERINTENDENT MARINE OIL TERMINAL-D placed by Dr Chen at [facility] 9. Dizziness and SOB had improved immediately [...] & Plan (06/11/2024 8:46 AM EDT): Had SUPERINTENDENT MARINE OIL TERMINAL-D placed by Dr Chen at [facility] 9. Dizziness and SOB had improved immediately after placement, then worse again after COVID Supposed to undergo 24-32 weeks of cardiac rehab, went to 4 and then authorization I replaced the order today for ongoing cardiac rehabilitation, pt needs this to get stronger and more active safely Assessment & Plan (11/19/2023 11:21 AM EST): Had SUPERINTENDENT MARINE OIL TERMINAL-D placed by Dr Chen at [facility] 07.24. Dizziness and SOB had improved immediately after placement, then worse again after COVID Assessment & Plan (07/07/2023 9:11 AM EDT): Having SUPERINTENDENT MARINE OIL TERMINAL-D placed by Dr Chen at [facility] 9. Will evaluate SOB and other symptoms after that Assessment & Plan (11/13/2022 7:48 AM EST): EF 35% Followed by cardiology, Shannan Pinon [place] [facility] [place] Carotid artery disease 11/08/2022 Allergic conjunctivitis 09/28/2022 Atherosclerosis of aorta 09/28/2022 Atherosclerosis of right carotid artery 09/28/20 22 Bipolar II disorder 09/28/2022 Assessment & Plan (06/11/2024 8:49 AM EDT): Had been on Seroquel and then Depakote, discontinued both due to concerns about side effects psychofarm followup last 02/2022 Strong anxiety component currently with partner anxiety Will try SSRI for anxiety and speak with pychofarm and then patient about restarting mood stabilizer, Seroquel or Verona Assessment & Plan (06/12/2023 10:05 AM EDT): [...] Plan (06/02/2023 11:49 AM EDT): Followed by manuel, Dr Napier Due to LBBB causing non-ischemic cardiomyopathy, consideration for BiV ICD She has some trepidation about this, but would like to feel better from a heart failure, symptoms point of view Unknown duration On EKG 08/2022 Assessment & Plan (11/13/2022 7:46 AM EST): Followed by manuel Unknown duration On EKG 08/2022 Dyslipidemia 07/03/2017 [...] Encounters Date Type Department Care Team Description 12/31/2024 Telephone [facility] [address] [place] [address] Hilda Butt MD No Show 12/08/2024 Refill [facility] [address] [place] [address] Hilda Butt MD Vitamin D deficiency 11/22/2024 Orders Only [facility] External Provider, [facility] 11/22/2024 Refill [facility] [address] [place] [address] Hilda Butt MD 11/19/2024 Refill [facility] [address] [place] [address] Hilda Butt MD 11/19/2024 Refill [facility] [address] [place] [address] Hilda Butt MD Chronic obstructive pulmonary disease with acute exacerbation (CMS/HCC) 11/18/2024 Refill [facility] [address] [place] [address] Hilda Butt MD 11/17/2024 Refill [facility] [address] [place] [address] Hilda Butt MD 11/17/2024 Refill [facility] [address] [place] [address] Hilda Butt MD 11/16/2024 Refill [facility] [address] [place] [address] Hilda Butt MD Vitamin D deficiency 11/05/2024 Refill [facility] [address] [place] [address] Hilda Butt MD 11/05/2024 Orders Only [facility] [address] [place] [address] Hilda Butt MD 11/03/2024 Refill [facility] [address] [place] [address] Hilda Butt MD 11/01/2024 2:15 PM EST Office Visit [facility] [address] [place] [address] Hilda Butt MD Stenosis of both internal carotid arteries (Primary Dx); Vertebral artery dissection (CMS/HCC); Bipolar II disorder (CMS/HCC); Nonischemic cardiomyopathy (CMS/HCC); Infiltrating ductal carcinoma of left female breast ([facility]/HCC); Dietary counseling; Exercise counseling; Class 1 obesity with serious comorbidity and body mass index (BMI) of 33.0 to 33.9 in adult, unspecified obesity type; Essential hypertension; Atherosclerosis of right carotid artery 11/01/2024 Orders Only [facility] External Provider, [facility] 11/01/2024 Travel 10/31/2024 Travel from Last 3 Months Immunizations Name Administration [...] 11/01/2024 2:15 PM EST Plan of Treatment Health Maintenance Due Date [...] Zoster Vaccines Completed 09/23/2022, 2022 Pneumococcal Vaccine: 50+ Years Completed 11/17/2023, 10/17/2021 HPV/Cotest Discontinued 02/20/2024 Hepatitis [...] 142/86( 025 2:15 PM EST) No Daria Cardoso PharmD Procedures Procedure Name Priority Date/Time Associated Diagnosis Comments XR CHEST 1 VIEW Routine 12/03/2024 2:00 PM EST MR BRAIN W AND WO CONTRAST Routine 11/30/2024 1:05 PM EST XR CHEST 1 VIEW Routine 11/30/2024 9:[address] SOFT TISSUE NECK W CONTRAST Routine 11/25/2024 12:51 PM EST XR CHEST 1 VIEW Routine 11/23/2024 12:10 PM EST XR CHEST 1 VIEW Routine 11/23/2024 8:03 AM EST CTA HEAD STROKE W AND WO CONTRAST Routine 11/22/2024 3:[address] HEAD STROKE WO CONTRAST Routine 11/22/2024 12:48 PM EST HIGH SENSITIVITY TROPONIN I Routine [...] Recently Relevant to Health Maintenance Results * XR Chest 1 View (12/03/2024 2:00 PM EST) Only the most recent of5 resultswithin the time period is included. Anatomical Region Laterality Modality Chest Radiographic Sherrie ging 12/03/2024 2:00 PM EST Narrative 12/03/2024 2:20 PM EST ? [place] [facility] ?[address] ?[place] [address] ?XRay Report ? Signed ? Patient: Brandon,Renita ?MR#: [id number] ?? 4 ? : 1970 ?Acct:[id number] ? Age/Sex: 54 / F ?ADM Date: 11/22/24 ? Loc: HO.IM ?457-1 ? Attending Dr: Dae De Anda MD ? Ordering Physician: Ike Babin MD ?? Date of Service: 12/03/24 ?? Procedure(s): XR chest 1V ?? Accession Number(s): [id number] ? cc: Ike Babin MD; Hilda Butt ? EXAMINATION: ??XR CHEST 1 VIEW ? HISTORY: Hypoxemia, follow up ? COMPARISON: Comparison is made with the prior examination dated ?? 11/30/2024. ? FINDINGS: ??A single AP portable view of the chest performed at 1:48 PM ?? is submitted. A left-sided dual-chamber pacemaker is unchanged in ?? position. There is increased density at the lateral aspect of the left ?? lung base which may represent pneumonia or overlying soft tissue. The ?? right lung is clear. ??There is no pleural effusion, pneumothorax, or ?? pulmonary vascular congestion. ??The heart is normal in size given ?? technique. The aorta is calcified. ??The bones are intact. ? XR/XR chest 1V ?? IMPRESSION: ?? Increased density at the lateral aspect of the left lung base may ?? represent pneumonia or overlying soft tissue. PA and lateral views are ?? recommended when the patient is able. ? Electronically signed by: ??Trent Riddle MD ??12/03/2024 02:18 PM EST ? Dictated By: ?Trent Riddle MD ? Signed By: ?<Electronically signed by Trent Riddle MD in OV> ?12/03/24 1418 ? DD/ 1400 ? TD/TT: 12/03/24 1403 ? Rough Carpenter: ? Procedure Note Charlie Stinson - 12/03/[address] [address] XRay Report Signed Patient: Renita BrandonMR#: [id number] 4 : 1970Acct:[id number] Age/Sex: 54 / FADM Date: 11/22/24 Loc: [facility] 457-[address]: Dae De Anda MD Ordering Physician: Ike Babin MD Date of Service: 12/03/24 Procedure(s): XR chest 1V Accession Number(s): [id number] cc: Ike Babin MD; Hilda Butt EXAMINATION: XR CHEST 1 VIEW HISTORY: Hypoxemia, follow up COMPARISON: Comparison is made with the prior examination dated 11/30/2024. FINDINGS: A single AP portable view of the chest performed at 1:48 PM is submitted. A left-sided dual-chamber pacemaker is unchanged in position. There is increased density at the lateral aspect of the left lung base which may represent pneumonia or overlying soft tissue. The right lung is clear. There is no pleural effusion, pneumothorax, or pulmonary vascular congestion. The heart is normal in size given technique. The aorta is calcified. The bones are intact. XR/XR chest 1V IMPRESSION: Increased density at the lateral aspect of the left lung base may represent pneumonia or overlying soft tissue. PA and lateral views are recommended when the patient is able. Electronically signed by: Trent Riddle MD 12/03/2024 02:18 PM EST RP Dictated By: Trent Riddle MD Signed By: <Electronically signed by Trent Riddle MD in OV> 12/03/24 1418 DD/ 1400 TD/TT: 12/03/24 1403 Rough Carpenter: [facility] External Provider IMG XR PROCEDURES Final Result * Mr Brain w/ and w/o Contrast (11/30/2024 1:05 PM EST) Anatomical Region Laterality Modality Brain Magnetic Resonan ce 11/30/2024 1:05 PM EST Narrative 11/30/2024 2:57 PM EST ? [facility] ?[address] ?[place] [address] ? Magnetic Resonance Report ? Signed ? Patient: Brandon,Renita ?MR#: [id number] ?? 4 ? : 1970 ?Acct:[id number] ? Age/Sex: 54 / F ?ADM Date: 01/27/25 ? Loc: HO.IMC ?453-1 ? Attending Dr: Dae De Anda MD ? Ordering Physician: Marychuy Son MD ?? Date of Service: 11/30/24 ?? Procedure(s): MR head/brain wo/w con ?? Accession Number(s): [id number] ? cc: Hilda Butt; Marychuy Son MD ? EXAMINATION: ?? MR BRAIN WITHOUT AND WITH CONTRAST ? CLINICAL INFORMATION: ?? Follow-up of acute stroke following right carotid dissection and right ?? neck hematoma. ? COMPARISON: ?? CT soft tissue neck with IV contrast 11/25/2024 CT brain 11/22/2024 and ?? CT brain 11/22/2024 ? TECHNIQUE: ?? Multiplanar, multisequence MRI of the brain was obtained before and ?? after the intravenous administration of 7.5 mL Gadavist. ? FINDINGS: ?? There is extensive deep right frontal parietal and scattered temporal ?? lobe acute ischemic changes on diffusion scan with corresponding flow ?? void signal on ADC map consistent with acute ischemic changes and last ?? 3 days. There is no magnetic susceptibility artifact seen to suspect ?? any right conversion. There is some preservation of right ?? frontoparietal cortical sulci in the area surrounded by deep white ?? matter. There is preservation in the watershed area in the right ?? frontoparietal region. There is mild right to left midline shift. Right ?? lateral ventricle is compromised secondary to deep white matter edema ?? and ischemia. Postcontrast there is mild enhancement seen in the right ?? frontoparietal cortical likely representing vascular enhancement from ?? capillary venous system. Normal flow-void signal seen in the left ?? internal carotid and the basal artery. Previously right internal ?? carotid artery was occluded but now there is some flow seen in the ?? proximal ICA and distal ICA and likely secondary to collaterals the ?? lateral, third and fourth ventricles are normal caliber. The bone ?? marrow signal is normal. There is T2 signal changes in bilateral ?? mastoid, left maxillary and ethmoid sinuses. ? MR/MR head/brain wo/w con ?? IMPRESSION: ?? Acute infarction right frontoparietal deep white matter with sparing of ?? the watershed area. Post contrast there is enhancement of renal calculi ?? segments within the cortical sulci likely delayed perfusion. The ?? ischemia spares the right frontoparietal cortical sulci. No hemorrhagic ?? conversion of infarct seen. ? Collateral flow is seen in proximal and distal ICA. ? Electronically signed by: ??Alhaji Hussein MD ??11/30/2024 02:54 PM EST RP ? Dictated By: ?Alhaji Hussein MD ? Signed By: ?<Electronically signed by Alhaji Hussein MD in OV> ?11/30/24 1454 ? DD/ 1305 ? TD/TT: 11/30/24 1350 ? Rough Carpenter: MSM ? Procedure Note Donotuseinterpreter, Image - 11/30/2024 [place] [address] Magnetic Resonance Report Signed Patient: Adin Brandon#: [id number] 4 : 1970Acct:[id number] Age/Sex: 54 / FADM Date: 11/22/24 Loc: [facility] 453-[address]: Dae De Anda MD Ordering Physician: Marychuy Son MD Date of Service: 11/30/24 Procedure(s): MR head/brain wo/w con Accession Number(s): [id number] cc: Hilda Butt; Marychuy Son MD EXAMINATION: MR BRAIN WITHOUT AND WITH CONTRAST CLINICAL INFORMATION: Follow-up of acute stroke following right carotid dissection and right neck hematoma. COMPARISON: CT soft tissue neck with IV contrast 11/25/2024 CT brain 11/22/[address] brain 11/22/2024 TECHNIQUE: Multiplanar, multisequence MRI of the brain was obtained before and after the intravenous administration of 7.5 mL Gadavist. FINDINGS: There is extensive deep right frontal parietal and scattered temporal lobe acute ischemic changes on diffusion scan with corresponding flow void signal on ADC map consistent with acute ischemic changes and last 3 days. There is no magnetic susceptibility artifact seen to suspect any right conversion. There is some preservation of right frontoparietal cortical sulci in the area surrounded by deep white matter. There is preservation in the watershed area in the right frontoparietal region. There is mild right to left midline shift. Right lateral ventricle is compromised secondary to deep white matter edema and ischemia. Postcontrast there is mild enhancement seen in the right frontoparietal cortical likely representing vascular enhancement from capillary venous system. Normal flow-void signal seen in the left internal carotid and the basal artery. Previously right internal carotid artery was occluded but now there is some flow seen in the proximal ICA and distal ICA and likely secondary to collaterals the lateral, third and fourth ventricles are normal caliber. The bone marrow signal is normal. There is T2 signal changes in bilateral mastoid, left maxillary and ethmoid sinuses. MR/MR head/brain wo/w con IMPRESSION: Acute infarction right frontoparietal deep white matter with sparing of the watershed area. Post contrast there is enhancement of renal calculi segments within the cortical sulci likely delayed perfusion. The ischemia spares the right frontoparietal cortical sulci. No hemorrhagic conversion of infarct seen. Collateral flow is seen in proximal and distal ICA. Electronically signed by: Alhaji Hussein MD 11/30/2024 02:54 PM EST Dictated By: Alhaji Hussein MD Signed By: <Electronically signed by Alhaji Hussein MD in OV> 11/30/24 1454 DD/ 1305 TD/TT: 11/30/24 1350 Rough Carpenter: [facility] External Provider IMG MRI PROCEDURES Final Result * CT Soft Tissue Neck w/ Contrast (11/25/2024 12:51 PM EST) Anatomical Region Laterality Modality Head, Neck Computed Tomogra phy 11/25/2024 12:5 1 PM EST Narrative 11/25/2024 2:03 PM EST ? [facility] ?[address] ?[place] [address] ? CT Scan Report ? Signed ? Patient: Brandon,Renita ?MR#: [id number] ?? 4 ? : 1970 ?Acct:[id number] ? Age/Sex: 54 / F ?ADM Date: 01/27/25 ? Loc: HO.ICU ?262-1 ? Attending Dr: Dae De Anda MD ? Ordering Physician: Marychuy Son MD ?? Date of Service: 11/25/24 ?? Procedure(s): CT soft tissue neck w IV con ?? Accession Number(s): [id number] ? cc: Hilda Butt; Marychuy Son MD ? Report Number: ?? [id number]: Total DLP = ??325.00 mGy-cm ?? EXAMINATION: ?? CT SOFT TISSUE NECK WITH CONTRAST ? CLINICAL INFORMATION: ?? Laryngeal edema/neck edema, right carotid hematoma. Recent carotid ?? endarterectomy with subsequent right ICA occlusion. ? COMPARISON: ?? CT angiogram neck dated 11/22/2024. ? TECHNIQUE: ?? Following the intravenous administration of 60 mL of Omnipaque 350 ?? intravenous contrast, helical imaging of the neck was performed in the ?? axial plane with generation of coronal and sagittal reformatted images. ? This CT examination was performed using dose optimization techniques as ?? appropriate, variously including the following: ?? *Automated exposure control ?? *Adjustment of mA and/or kV according to patient size (this includes ?? techniques or standardized protocols for targeted exams where dose is ?? matched to indication/reason for exam; i.e. extremities or head) ?? *Use of iterative reconstruction technique ? FINDINGS: ?? Endotracheal tube in place, 3.5 cm above the keaton. Orogastric tube in ?? place. ? Lymph Nodes: ?? -Mildly enlarged right anterior cervical chain nodes which are largely ?? obscured by the presence of hyperattenuating fluid/hematoma. ? Carotid Sheath Structures: ?? Diminished postoperative changes in the right hepatic and surrounding ?? the right carotid sheath with a hematoma present, beginning in the ?? proximal CCA region at the level of the cricoid cartilage, and ?? extending cephalad to involve the proximal right ICA. This hematoma ?? measures approximately 2.2 cm in AP, by 3.0 cm in transverse, by 6.5 cm ?? in craniocaudad dimension. ?? -There has been some jew of enhancement/flow within the ?? proximal right ICA, spanning approximately 4.4 cm distal to the ?? bifurcation. Minimal flow is seen in the most distal right ICA ?? extending into the carotid canals/skull base. ?? -There is mild extension of hematoma into the retropharyngeal space and ?? below the length of the right thyroid cartilage. ?? -There is mass effect upon the right aspect of the larynx, and the ?? inferior right hypopharynx. There is mild shift of the tracheal ?? cartilages to the left. ?? -Hypoattenuating fluid and a few small foci of gas extend to surround ?? the right sternocleidomastoid muscle, just deep to the platysma, with ?? extension to the right submandibular space and parotid space ?? superiorly, and inferiorly to the level of the right mid thyroid. There ?? is associated mild diffuse enlargement of the right SCM. ?? -Compared with the prior CTA exam of 3 days prior, there has interval ?? enlargement of this hematoma, with mildly worsening of mass effect in ?? the right neck and further extension of hyperattenuating right neck ?? fluid/blood as detailed. ?? -Minimal effacement of the right internal jugular vein present, ?? suggesting origin of hemorrhage is from carotid dissection. ?? -No nati contrast extravasation is noted. ?? -The previously seen right carotid surgical drain has been removed. ? Salivary Glands: ?? -No lesions. There is now fluid surrounding the right inferior parotid ?? gland and lateral to the inferior right masseter muscle. ?? -There is mild mass effect on the right submandibular gland pushing it ?? anteriorly. ? Mucosal Space: ?? -No discrete lesion seen. Presence of endotracheal tube and orogastric ?? tube limit evaluation. ?? -As described above, there is mild mass effect upon the inferior ?? hypopharynx and right larynx from the hematoma. ? Visceral Space: ?? -Thyroid gland: Normal. ?? -Mass effect as above. ?? -The subglottic trachea becomes midline at the thoracic inlet. ET tube ?? appears well positioned. ? Retropharangeal Space: ?? -Mildly increasing hyperattenuating fluid and mass effect within the ?? retropharyngeal space. ? Parapharyngeal Fat Planes: ?? -Minimal effacement of the inferior right. The left is normal. ? Emergency Detail Driver Spaces: ?? -As described above. Otherwise normal. ? Imaged Intracranial Contents: ?? 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 right watershed parietal regions as well, with involvement of the right ?? basal ganglia and superior right temporal lobe. ?? -There has been development of approximately 4 mm of [id number] ?? midline shift. There is effacement of the right lateral ventricle, ?? without significant dilation of the left lateral ventricle. ?? -There is mild mass effect upon the right midbrain without gross ?? herniation. ?? -Within confines of contrast, there is no space-occupying hemorrhage ?? identified intracranially. ? Globes and Orbits: ?? -Engorgement of the right superior ophthalmic vein, likely reflective ?? of increasing intracranial pressures and mass effect upon the right ?? cavernous sinus. ? Lung Apices and Superior Mediastinal Structures: ?? -There has been development of at least 3 stellate nodular foci in the ?? left upper lobe, likely infectious or inflammatory. ?? -There is dependent atelectasis left greater than right. ?? -No pneumothorax or effusion. ? Bony Structures: ?? -No suspicious bone lesions. No fractures. ?? -Degenerative spinal changes. ? CT/CT soft tissue neck w IV con ?? IMPRESSION: ?? 1. Enlarging right neck hematoma centered at the right carotid bulb as ?? discussed, with extension cephalad to involve the proximal right ICA, ?? extension inferiorly to the mid thyroid level, extension into anterior ?? cervical space on the right, and mild extension into the ?? retropharyngeal space. There is associated mass effect on the right ?? hypopharynx and larynx. No gross extravasation of contrast. ? 2. There has been some jew of some degree of enhancement in the ?? right internal carotid artery, which becomes diminutive near the skull ?? base. Given lack of effacement of the internal jugular vein, findings ?? are again highly suggestive of carotid dissection. ? 3. Interval development of supratentorial right hemispheric infarction, ?? with cytotoxic edema, and resultant right to left midline shift of 4 ?? mm. No space-occupying intracranial hemorrhage allowing for presence of ?? contrast. ? 4. Endotracheal tube is well positioned. Orogastric tube in place. ?? Right neck surgical drain has been removed. ? 5. There are inferior left upper lobe stellate nodular opacities ?? present, presumably infectious or inflammatory. These are new from the ?? recent CTA examination ? Electronically signed by: ??Amauri Lopez MD ??11/25/2024 02:00 PM EST RP ? Dictated By: ?Amauri Lopez MD ? Signed By: ?<Electronically signed by Amauri Lopez MD in OV> ?11/25/24 1400 ? DD/ 1251 ? TD/TT: 11/25/24 1317 ? Rough Carpenter: ? Procedure Note Doneuniceter, Image - 11/25/[address] [address] [address] Scan Report Signed Patient: Adin Brandon#: [id number] 4 : 1970Acct:[id number] Age/Sex: 54 / FADM Date: 11/22/24 Loc: .ICU 262-[address]: Dae De Anda MD Ordering Physician: Marychuy Son MD Date of Service: 11/25/24 Procedure(s): CT soft tissue neck w IV con Accession Number(s): [id number] cc: Hilda Butt; Marychuy Son MD Report Number: [id number]: Total DLP = 325.00 mGy-cm EXAMINATION: CT SOFT TISSUE NECK WITH CONTRAST CLINICAL INFORMATION: Laryngeal edema/neck edema, right carotid hematoma. Recent carotid endarterectomy with subsequent right ICA occlusion. COMPARISON: CT angiogram neck dated 11/22/2024. TECHNIQUE: Following the intravenous administration of 60 mL of Omnipaque 350 intravenous contrast, helical imaging of the neck was performed in the axial plane with generation of coronal and sagittal reformatted images. This CT examination was performed using dose optimization techniques as appropriate, variously including the following: *Automated exposure control *Adjustment of mA and/or kV according to patient size (this includes techniques or standardized protocols for targeted exams where dose is matched to indication/reason for exam; i.e. extremities or head) *Use of iterative reconstruction technique FINDINGS: Endotracheal tube in place, 3.5 cm above the keaton. Orogastric tube in place. Lymph Nodes: -Mildly enlarged right anterior cervical chain nodes which are largely obscured by the presence of hyperattenuating fluid/hematoma. Carotid Sheath Structures: Diminished postoperative changes in the right hepatic and surrounding the right carotid sheath with a hematoma present, beginning in the proximal CCA region at the level of the cricoid cartilage, and extending cephalad to involve the proximal right ICA. This hematoma measures approximately 2.2 cm in AP, by 3.0 cm in transverse, by 6.5 cm in craniocaudad dimension. -There has been some jew of enhancement/flow within the proximal right ICA, spanning approximately 4.4 cm distal to the bifurcation. Minimal flow is seen in the most distal right ICA extending into the carotid canals/skull base. -There is mild extension of hematoma into the retropharyngeal space and below the length of the right thyroid cartilage. -There is mass effect upon the right aspect of the larynx, and the inferior right hypopharynx. There is mild shift of the tracheal cartilages to the left. -Hypoattenuating fluid and a few small foci of gas extend to surround the right sternocleidomastoid muscle, just deep to the platysma, with extension to the right submandibular space and parotid space superiorly, and inferiorly to the level of the right mid thyroid. There is associated mild diffuse enlargement of the right SCM. -Compared with the prior CTA exam of 3 days prior, there has interval enlargement of this hematoma, with mildly worsening of mass effect in the right neck and further extension of hyperattenuating right neck fluid/blood as detailed. -Minimal effacement of the right internal jugular vein present, suggesting origin of hemorrhage is from carotid dissection. -No nati contrast extravasation is noted. -The previously seen right carotid surgical drain has been removed. Salivary Glands: -No lesions. There is now fluid surrounding the right inferior parotid gland and lateral to the inferior right masseter muscle. -There is mild mass effect on the right submandibular gland pushing it anteriorly. Mucosal Space: -No discrete lesion seen. Presence of endotracheal tube and orogastric tube limit evaluation. -As described above, there is mild mass effect upon the inferior hypopharynx and right larynx from the hematoma. Visceral Space: -Thyroid gland: Normal. -Mass effect as above. -The subglottic trachea becomes midline at the thoracic inlet. ET tube appears well positioned. Retropharangeal Space: -Mildly increasing hyperattenuating fluid and mass effect within the retropharyngeal space. Parapharyngeal Fat Planes: -Minimal effacement of the inferior right. The left is normal. Emergency Detail Driver Spaces: -As described above. Otherwise normal. 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 -There has been development of approximately 4 mm of [id number] midline shift. There is effacement of the right lateral ventricle, without significant dilation of the left lateral ventricle. -There is mild mass effect upon the right midbrain without gross herniation. -Within confines of contrast, there is no space-occupying hemorrhage identified intracranially. Globes and Orbits: -Engorgement of the right superior ophthalmic vein, likely reflective of increasing intracranial pressures and mass effect upon the right cavernous sinus. Lung Apices and Superior Mediastinal Structures: -There has been development of at least 3 stellate nodular foci in the left upper lobe, likely infectious or inflammatory. -There is dependent atelectasis left greater than right. -No pneumothorax or effusion. Bony Structures: -No suspicious bone lesions. No fractures. -Degenerative spinal changes. CT/CT soft tissue neck w IV con IMPRESSION: 1. Enlarging right neck hematoma centered at the right carotid bulb as discussed, with extension cephalad to involve the proximal right ICA, extension inferiorly to the mid thyroid level, extension into anterior cervical space on the right, and mild extension into the retropharyngeal space. There is associated mass effect on the right hypopharynx and larynx. No gross extravasation of contrast. 2. There has been some jew of some degree of enhancement in the right internal carotid artery, which becomes diminutive near the skull base. Given lack of effacement of the internal jugular vein, findings are again highly suggestive of carotid dissection. 3. Interval development of supratentorial right hemispheric infarction, with cytotoxic edema, and resultant right to left midline shift of 4 mm. No space-occupying intracranial hemorrhage allowing for presence of contrast. 4. Endotracheal tube is well positioned. Orogastric tube in place. Right neck surgical drain has been removed. 5. There are inferior left upper lobe stellate nodular opacities present, presumably infectious or inflammatory. These are new from the recent CTA examination Electronically signed by: Amauri Lopez MD 11/25/2024 02:00 PM EST RP Dictated By: Amauri Lopez MD Signed By: <Electronically signed by Amauri Lopez MD in OV> 11/25/24 1400 DD/ 1251 TD/TT: 11/25/24 1317 Rough Carpenter: [facility] External Provider IMG CT PROCEDURES Final Result * CTA Head Stroke w/ and w/o Contrast (11/22/2024 3:28 PM EST) Anatomical Region Laterality Modality Computed Tomogra phy 11/22/2024 3:28 PM EST Narrative 11/22/2024 4:44 PM EST ? [facility] ?[address] ?[place] [address] ? CT Scan Report ? Signed ? Patient: Brandon,Renita ?MR#: [id number] ?? 4 ? : 1970 ?Acct:[id number] ? Age/Sex: 54 / F ?ADM Date: 11/22/24 ? Loc: HO.ICU ?262-1 ? Attending Dr: Dae De Anda MD ? Ordering Physician: Marychuy Son MD ?? Date of Service: 11/22/24 ?? Procedure(s): CT angio head neck STROKE ?? Accession Number(s): [id number] ? cc: Hilda Butt; Marychuy Son MD ? Report Number: ?? [id number]: Total DLP = 1486.00 mGy-cm ?? EXAMINATION: ?? CT ANGIOGRAM HEAD AND NECK ? CLINICAL INFORMATION: ?? Suspect stroke. Left arm and left leg weakness status post right ?? carotid endarterectomy. ? COMPARISON: ?? Noncontrast head CT performed concurrently same day. ?? 05/17/2024 CT angiogram head and neck. ? TECHNIQUE: ?? Noncontrast axial imaging of the head was performed. This was followed ?? by test bolus sequences and head and neck intravenous bolus ?? administration 70 mL of Omnipaque 350. Helical imaging was performed in ?? the axial plane from the aortic arch to the skull vertex. A 7 minute ?? delay CT head was also obtained. The data was processed at the CT ?? technologist's workstation for generation of MIP sequences. Angled MIPs ?? and volume rendered reformatted images were also generated at an ?? offline 3D workstation. Stenoses are assessed in accordance with NASCET ?? criteria unless otherwise indicated. ? This CT examination was performed using dose optimization techniques as ?? appropriate, variously including the following: ?? *Automated exposure control ?? *Adjustment of mA and/or kV according to patient size (this includes ?? techniques or standardized protocols for targeted exams where dose is ?? matched to indication/reason for exam; i.e. extremities or head) ?? *Use of iterative reconstruction technique ? FINDINGS: ? Exam mildly limited by venous contamination due to bolus timing. Dense ?? venous contrast causes streak artifact which obscures the most proximal ?? right ICA. ? NECK CTA: ?? -AORTIC ARCH: Normal in caliber with moderate atheromatous plaque. ?? -GREAT VESSEL ORIGINS: 3 vessel branching pattern. There is an ?? approximate 50% stenosis of the left ICA at the origin due to mixed ?? calcific and soft plaque. There is a mild stenosis of the left ?? subclavian artery at the origin due to plaque. There is a mild stenosis ?? of the brachiocephalic artery due to calcified and soft plaque ? -RIGHT COMMON CAROTID ARTERY: Origin appears patent but short segment ?? just past the origin is obscured by streak artifact from venous ?? contamination. Vessel is otherwise normal in course and caliber to the ?? level of the bifurcation. There is mild to moderate irregularity of the ?? vessel wall due to soft plaque. ?? -CERVICAL RIGHT INTERNAL CAROTID ARTERY: There is complete occlusion of ?? the right ICA approximately 1.3 cm after the origin, with an appearance ?? highly suggestive of dissection of the vessel. It is occluded ?? completely into the skull base. There is mild reconstitution in the ?? carotid siphon via collaterals/retrograde flow. ? -LEFT COMMON CAROTID ARTERY: Mild origin stenosis due to calcified ?? plaque. Normal in course and caliber to the level of the bifurcation ?? with mild atheromatous plaque. ?? -CERVICAL LEFT INTERNAL CAROTID ARTERY: Extensive irregular ?? predominantly calcific plaque contributes to a high grade short segment ?? luminal stenosis yearly after the origin estimated at 80-90%, with ?? cross-sectional vessel diameter reduced to 1.5 mm. The remainder of the ?? cervical ICA is normal in caliber without adaptive narrowing. There is ?? a partial cervical loop. ? -CERVICAL RIGHT VERTEBRAL ARTERY: Mild stenosis at the anatomic origin ?? due to calcified plaque. Vessel is mildly dominant but otherwise normal ?? in course and caliber into the skull base. ?? -CERVICAL LEFT VERTEBRAL ARTERY: Moderate origin stenosis suspected, ?? due to predominantly calcified plaque. Vessel is otherwise normal in ?? caliber and course into the skull base. ? OTHER, SOFT TISSUES: ?? -Left pacemaker generator in the upper left chest with leads extending ?? into the SVC. ?? There are recent postoperative changes within the right cervical soft ?? tissues, secondary to recent endarterectomy. There is a surgical drain ?? in place, which terminates at the approximate level of the origin of ?? the ICA occlusion. Mild swelling of the right sternocleidomastoid ?? muscle with surrounding gas. Mild thickening of the right platysma. ?? -The thyroid gland appears normal. ?? -Imaged superior mediastinum, and imaged lung apices demonstrate ?? dependent atelectasis without pneumothorax or pulmonary consolidation. ?? Partial expiratory appearance. Major airways are patent. ? CTA OF THE BRAIN: ? -INTRACRANIAL INTERNAL CAROTID ARTERIES: ?? -RIGHT: Reconstitution of flow on the right in the mid horizontal ?? carotid canal , likely retrograde/collateral. Vessel is otherwise ?? normal in course and caliber without aneurysm. There is mild ?? atheromatous plaque. ?? -LEFT: Mild atheromatous plaque without evidence of significant ?? stenosis or aneurysm. ? -RIGHT ANTERIOR CEREBRAL ARTERY: Normal A1 segment. Normal arborization ?? of the distal segments. ?? -LEFT ANTERIOR CEREBRAL ARTERY: Normal A1 segment. Normal arborization ?? of the distal segments. ?? -ANTERIOR COMMUNICATING ARTERY: Normal. ? -RIGHT MIDDLE CEREBRAL ARTERY: Normal M1 segment of the MCA without ?? focal stenosis or occlusion. Normal arborization of the distal segments. ?? -LEFT MIDDLE CEREBRAL ARTERY: Normal M1 segment of the MCA without ?? focal stenosis or occlusion. Normal arborization of the distal segments. ? -RIGHT VERTEBRAL ARTERY V4: Normal in course and caliber. There is a ?? right AICA/PICA. ?? -LEFT VERTEBRAL ARTERY V4: Normal in course and caliber. Normal PICA ?? branch. ?? -BASILAR ARTERY: Normal without focal stenosis or occlusion. Normal ?? appearance of the proximal superior cerebellar arteries. Normal basilar ?? tip. ? -RIGHT POSTERIOR CEREBRAL ARTERY: Normal P1 segment. Normal ?? opacification of the distal TIRE SPECIALIST segments. ?? -LEFT POSTERIOR CEREBRAL ARTERY: Normal P1 segment. Normal ?? opacification of the distal TIRE SPECIALIST segments. ?? -POSTERIOR COMMUNICATING ARTERIES: The right is diminutive but seen. ?? The left is normal in caliber. ? Normal opacification of the superior sagittal, straight, transverse, ?? and sigmoid sinuses. No venous thrombosis. ?? No space-occupying hemorrhage or evidence of developing edematous ?? territory infarction on the delayed acquisition. ? CT/CT angio head neck STROKE ?? IMPRESSION: ?? 1. Complete occlusion of the RIGHT ICA approximately 1.3 cm after the ?? origin, with an appearance of probable underlying vessel dissection. ?? There is reconstitution of flow in the mid horizontal carotid canal ?? intracranially via retrograde/collateral flow. ?? 2. Irregular soft and calcific plaque contributes to a short segment ?? high grade stenosis, likely 80-90%, at the origin of the LEFT ICA with ?? luminal diameter reduced to 1.5 mm. ?? 3. There is a mild stenosis at the origin of the LEFT vertebral artery ?? secondary to calcific and soft plaque. The vessel is otherwise patent. ?? 4. There is mild to moderate stenosis at the origin of the RIGHT ?? vertebral artery secondary to calcific and soft plaque. The vessel is ?? otherwise patent. ?? 5. No evidence of major intracranial arterial occlusion, high-grade ?? stenosis, aneurysm, or dissection. ?? 6. There are recent postoperative changes of right endarterectomy with ?? soft tissue swelling and foci of gas in the right neck. ?? 7. Additional findings as discussed in the body of the report. ? Findings discussed with Dr. Marychuy Son of the [place] ICU via phone call ?? at 4:19 PM, 11/22/2024. ? Electronically signed by: ??Amauri Lopez MD ??11/22/2024 04:42 PM EST RP ? Dictated By: ?Amauri Lopez MD ? Signed By: ?<Electronically signed by Amauri Lopez MD in OV> ?11/22/24 1642 ? DD/ 1528 ? TD/TT: 11/22/24 1605 ? Rough Carpenter: ? Procedure Note Doneuniceter, Image - 11/22/[address] [address] [address] Scan Report Signed Patient: Renita BrandonMR#: [id number] 4 : 1970Acct:[id number] Age/Sex: 54 / FADM Date: 11/22/24 Loc: .ICU 262-[address]: Dae De Anda MD Ordering Physician: Marychuy Son MD Date of Service: 11/22/24 Procedure(s): CT angio head neck STROKE Accession Number(s): [id number] cc: Hilda Butt; Marychuy Son MD Report Number: [id number]: Total DLP = 1486.00 mGy-cm EXAMINATION: CT ANGIOGRAM HEAD AND NECK CLINICAL INFORMATION: Suspect stroke. Left arm and left leg weakness status post right carotid endarterectomy. COMPARISON: Noncontrast head CT performed concurrently same day. 05/17/2024 CT angiogram head and neck. TECHNIQUE: Noncontrast axial imaging of the head was performed. This was followed by test bolus sequences and head and neck intravenous bolus administration 70 mL of Omnipaque 350. Helical imaging was performed in the axial plane from the aortic arch to the skull vertex. A [address] head was also obtained. The data was processed at the pet technologist's workstation for generation of MIP sequences. Angled MIPs and volume rendered reformatted images were also generated at an offline 3D workstation. Stenoses are assessed in accordance with NASCET criteria unless otherwise indicated. This CT examination was performed using dose optimization techniques as appropriate, variously including the following: *Automated exposure control *Adjustment of mA and/or kV according to patient size (this includes techniques or standardized protocols for targeted exams where dose is matched to indication/reason for exam; i.e. extremities or head) *Use of iterative reconstruction technique FINDINGS: Exam mildly limited by venous contamination due to bolus timing. Dense venous contrast causes streak artifact which obscures the most proximal right ICA. NECK CTA: -AORTIC ARCH: Normal in caliber with moderate atheromatous plaque. -GREAT VESSEL ORIGINS: 3 vessel branching pattern. There is an approximate 50% stenosis of the left ICA at the origin due to mixed calcific and soft plaque. There is a mild stenosis of the left subclavian artery at the origin due to plaque. There is a mild stenosis of the brachiocephalic artery due to calcified and soft plaque -RIGHT COMMON CAROTID ARTERY: Origin appears patent but short segment just past the origin is obscured by streak artifact from venous contamination. Vessel is otherwise normal in course and caliber to the level of the bifurcation. There is mild to moderate irregularity of the vessel wall due to soft plaque. -CERVICAL RIGHT INTERNAL CAROTID ARTERY: There is complete occlusion of the right ICA approximately 1.3 cm after the origin, with an appearance highly suggestive of dissection of the vessel. It is occluded completely into the skull base. There is mild reconstitution in the carotid siphon via collaterals/retrograde flow. -LEFT COMMON CAROTID ARTERY: Mild origin stenosis due to calcified plaque. Normal in course and caliber to the level of the bifurcation with mild atheromatous plaque. -CERVICAL LEFT INTERNAL CAROTID ARTERY: Extensive irregular predominantly calcific plaque contributes to a high grade short segment luminal stenosis yearly after the origin estimated at 80-90%, with cross-sectional vessel diameter reduced to 1.5 mm. The remainder of the cervical ICA is normal in caliber without adaptive narrowing. There is a partial cervical loop. -CERVICAL RIGHT VERTEBRAL ARTERY: Mild stenosis at the anatomic origin due to calcified plaque. Vessel is mildly dominant but otherwise normal in course and caliber into the skull base. -CERVICAL LEFT VERTEBRAL ARTERY: Moderate origin stenosis suspected, due to predominantly calcified plaque. Vessel is otherwise normal in caliber and course into the skull base. OTHER, SOFT TISSUES: -Left pacemaker generator in the upper left chest with leads extending into the SVC. There are recent postoperative changes within the right cervical soft tissues, secondary to recent endarterectomy. There is a surgical drain in place, which terminates at the approximate level of the origin of the ICA occlusion. Mild swelling of the right sternocleidomastoid muscle with surrounding gas. Mild thickening of the right platysma. -The thyroid gland appears normal. -Imaged superior mediastinum, and imaged lung apices demonstrate dependent atelectasis without pneumothorax or pulmonary consolidation. Partial expiratory appearance. Major airways are patent. CTA OF THE BRAIN: -INTRACRANIAL INTERNAL CAROTID ARTERIES: -RIGHT: Reconstitution of flow on the right in the mid horizontal carotid canal , likely retrograde/collateral. Vessel is otherwise normal in course and caliber without aneurysm. There is mild atheromatous plaque. -LEFT: Mild atheromatous plaque without evidence of significant stenosis or aneurysm. -RIGHT ANTERIOR CEREBRAL ARTERY: Normal A1 segment. Normal arborization of the distal segments. -LEFT ANTERIOR CEREBRAL ARTERY: Normal A1 segment. Normal arborization of the distal segments. -ANTERIOR COMMUNICATING ARTERY: Normal. -RIGHT MIDDLE CEREBRAL ARTERY: Normal M1 segment of the MCA without focal stenosis or occlusion. Normal arborization of the distal segments. -LEFT MIDDLE CEREBRAL ARTERY: Normal M1 segment of the MCA without focal stenosis or occlusion. Normal arborization of the distal segments. -RIGHT VERTEBRAL ARTERY V4: Normal in course and caliber. There is a right AICA/PICA. -LEFT VERTEBRAL ARTERY V4: Normal in course and caliber. Normal PICA branch. -BASILAR ARTERY: Normal without focal stenosis or occlusion. Normal appearance of the proximal superior cerebellar arteries. Normal basilar tip. -RIGHT POSTERIOR CEREBRAL ARTERY: Normal P1 segment. Normal opacification of the distal TIRE SPECIALIST segments. -LEFT POSTERIOR CEREBRAL ARTERY: Normal P1 segment. Normal opacification of the distal TIRE SPECIALIST segments. -POSTERIOR COMMUNICATING ARTERIES: The right is diminutive but seen. The left is normal in caliber. Normal opacification of the superior sagittal, straight, transverse, and sigmoid sinuses. No venous thrombosis. No space-occupying hemorrhage or evidence of developing edematous territory infarction on the delayed acquisition. CT/CT angio head neck STROKE IMPRESSION: 1. Complete occlusion of the RIGHT ICA approximately 1.3 cm after the origin, with an appearance of probable underlying vessel dissection. There is reconstitution of flow in the mid horizontal carotid canal intracranially via retrograde/collateral flow. 2. Irregular soft and calcific plaque contributes to a short segment high grade stenosis, likely 80-90%, at the origin of the LEFT ICA with luminal diameter reduced to 1.5 mm. 3. There is a mild stenosis at the origin of the LEFT vertebral artery secondary to calcific and soft plaque. The vessel is otherwise patent. 4. There is mild to moderate stenosis at the origin of the RIGHT vertebral artery secondary to calcific and soft plaque. The vessel is otherwise patent. 5. No evidence of major intracranial arterial occlusion, high-grade stenosis, aneurysm, or dissection. 6. There are recent postoperative changes of right endarterectomy with soft tissue swelling and foci of gas in the right neck. 7. Additional findings as discussed in the body of the report. Findings discussed with Dr. Marychuy Son of the [place] [facility] via phone call at 4:19 PM, 11/22/2024. Electronically signed by: Amauri Lopez MD 11/22/2024 04:42 PM EST Dictated By: Amauri Lopez MD Signed By: <Electronically signed by Amauri Lopez MD in OV> 11/22/24 1642 DD/ 1528 TD/TT: 11/22/24 1605 Rough Carpenter: [facility] External Provider IMG CT PROCEDURES Final Result * CT Head Stroke w/o Contrast (11/22/2024 12:48 PM EST) Anatomical Region Laterality Modality Computed Tomogra phy 11/22/2024 12:4 8 PM EST Narrative 11/22/2024 1:29 PM EST ? [facility] ?[address] ?[place] [address] ? CT Scan Report ? Signed ? Patient: Renita Brandon ?MR#: [id number] ?? 4 ? : 1970 ?Acct:[id number] ? Age/Sex: 54 / F ?ADM Date: 11/22/24 ? Loc: HO.ICU ?262-1 ? Attending Dr: Dae De Anda MD ? Ordering Physician: Dae De Anda MD ?? Date of Service: 11/22/24 ?? Procedure(s): CT head for STROKE ?? Accession Number(s): [id number] ? cc: Hilda Butt; Dae De Anda MD ? Report Number: ?? [id number]: Total DLP = ??821.00 mGy-cm ?? EXAMINATION: ?? CT HEAD WITHOUT CONTRAST (STROKE PROTOCOL) ? CLINICAL INFORMATION: ?? Stroke protocol. Left arm and left leg weakness status post right ?? carotid endarterectomy. ? COMPARISON: ?? 05/17/2024. ? TECHNIQUE: ?? Contiguous axial imaging was performed from the skull base to vertex ?? without intravenous administration of contrast. ? This CT examination was performed using dose optimization techniques as ?? appropriate, variously including the following: ?? *Automated exposure control ?? *Adjustment of mA and/or kV according to patient size (this includes ?? techniques or standardized protocols for targeted exams where dose is ?? matched to indication/reason for exam; i.e. extremities or head) ?? *Use of iterative reconstruction technique ? FINDINGS: ?? There is no evidence of intracranial hemorrhage or extra-axial fluid ?? collection. ?? There is no mass effect, or edema. No CT evidence of acute territorial ?? infarct. ?? Ventricles, sulci, and cisterns are normal in size and configuration ?? for patient age. No hydrocephalus. No midline shift. ?? Negative hyperdense MCA sign. Negative insular ribbon sign. ? 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 ?? Normal sella. ? Globes and orbital contents image normally. ?? No extracranial soft tissue abnormalities. ? The paranasal sinuses, mastoid air cells, and tympanic cavities are ?? normally aerated. ?? No suspicious bony abnormalities. Degenerative changes left TM joint. ? CT/CT head for STROKE ?? IMPRESSION: ?? No acute intracranial pathology. No CT evidence of acute intracranial ?? hemorrhage, mass effect, edema, or acute territorial infarct. ? Electronically signed by: ??Amauri Lopez MD ??11/22/2024 01:26 PM EST RP ?? Workstation: [id number] ? Dictated By: ?Amauri Lopez MD ? Signed By: ?<Electronically signed by Amauri Lopez MD in OV> ?11/22/24 1326 ? DD/ 1248 ? TD/TT: 11/22/24 1255 ? Rough Carpenter: ? Procedure Note Charlie Stinson - 11/22/[address] [address] [address] Scan Report Signed Patient: Renita Brandon#: [id number] 4 : 1970Acct:[id number] Age/Sex: 54 / FADM Date: 11/22/24 Loc: .ICU 262-[address]: Dae De Anda MD Ordering Physician: Dae De Anda MD Date of Service: 11/22/24 Procedure(s): CT head for STROKE Accession Number(s): [id number] cc: Hilda Butt; Dae De Anda MD Report Number: [id number]: Total DLP = 821.00 mGy-cm EXAMINATION: CT HEAD WITHOUT CONTRAST (STROKE PROTOCOL) CLINICAL INFORMATION: Stroke protocol. Left arm and left leg weakness status post right carotid endarterectomy. COMPARISON: 05/17/2024. TECHNIQUE: Contiguous axial imaging was performed from the skull base to vertex without intravenous administration of contrast. This CT examination was performed using dose optimization techniques as appropriate, variously including the following: *Automated exposure control *Adjustment of mA and/or kV according to patient size (this includes techniques or standardized protocols for targeted exams where dose is matched to indication/reason for exam; i.e. extremities or head) *Use of iterative reconstruction technique FINDINGS: There is no evidence of intracranial hemorrhage or extra-axial fluid collection. There is no mass effect, or edema. No CT evidence of acute territorial infarct. Ventricles, sulci, and cisterns are normal in size and configuration for patient age. No hydrocephalus. No midline shift. Negative hyperdense MCA sign. Negative insular ribbon sign. 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 Normal sella. Globes and orbital contents image normally. No extracranial soft tissue abnormalities. The paranasal sinuses, mastoid air cells, and tympanic cavities are normally aerated. No suspicious bony abnormalities. Degenerative changes left TM joint. CT/CT head for STROKE IMPRESSION: No acute intracranial pathology. No CT evidence of acute intracranial hemorrhage, mass effect, edema, or acute territorial infarct. Electronically signed by: Amauri Lopez MD 11/22/2024 01:26 PM [facility] Dictated By: Amauri Lopez MD Signed By: <Electronically signed by Amauri Lopez MD in OV> 11/22/24 1326 DD/ 1248 TD/TT: 11/22/24 1255 Rough Carpenter: [facility] External Provider IMG CT PROCEDURES Final Result * Strep A Nucleic Acid (11/01/2024 4:48 PM EST) Pathologist [facility] RD SERIAL# [id number] 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 Strep A Nucleic Acid Negative Negative [facility] Comment:All test results mus t be [...] GENERAL ORDERABLES Final Result Performing Organization Address [facility] Co de Phone Number [facility] [address] [place] [phone] * High Sensitivity Troponin I (11/01/2024 4:48 PM EST) [facility] TROPONIN I HIGH SENSITIVITY <2.7 <3.5 - 17.0 ng/L [facility] Comment:The Munoz high sens itivity Troponin-I results should beused in conjunction with other diagnostic information suchas ECG, clinical observations and information, and patientsymptoms to aid in the diagnosis of [place]. 11/01/2024 4:48 PM EST 11/01/2024 4:52 PM EST Generic External Data Provider LAB BLOOD ORDERAB LES Final Result Performing Organization Address [facility] Co de Phone Number [facility] [address] [place] [phone] * (ABNORMAL) SARS-CoV-2 RNA, Influenza A/B, and RSV RNA, Ql NAAT (11/01/2024 4:48 PM EST) [facility] Influenza A PCR NEGATIVE Negative [facility] Influenza B PCR NEGATIVE Negative [facility] Resp Syncy Virus RNA Qual PCR NEGATIVE Negative [facility] SARS COV2 PCR POSITIVE(A) Negative [facility] Comment:All test results mus t [...] use by authorized laboratories.Testing performed on the MENA[employer] GeneXpert utilizingreal-time RT-PCR.All SARS CoV2 and positive influenza A/B results arereported to [facility]. 11/01/2024 4:48 PM EST 11/01/2024 4:52 PM EST Generic External Data Provider LAB MICROBIOLOGY - GENERAL ORDERABLES Final Result [facility] [address] [place] [phone] * (ABNORMAL) CBC auto differential (11/01/2024 4:48 PM EST) White Blood Count 6.2 4.8 - 10.8 X10*3/uL [facility] Red Blood Count 4.26 4.20 - 5.50 X10*6/uL [facility] Hemoglobin 12.1 12.0 - 16.0 g/dl [facility] Hematocrit 36.1(L) 37.0 - 47.0 % [facility] Mean Corpuscular Volume 84.7 80.0 - 98.0 fL [facility] Mean Corpuscular Hemoglobin 28.4 27.0 - 33.0 pg [facility] Mean Corpuscular HGB Conc 33.5 31.0 - 35.0 g/dl [facility] Red Cell Distribution Width 12.6 11.0 - 16.0 % [facility] Platelet Count 307 160 - 400 X10*3/uL [facility] Mean Platelet Volume 8.8(L) 9.4 - 12.3 fL [facility] Neutrophils Percent Auto 62.8 45 - 73 % [facility] Imm Gran Pct Auto 0.5(H) 0.0 - 0.4 % [facility] Lymphocytes Percent Auto 27.4 20 - 40 % [facility] Monocytes Percent Auto 6.9 2 - 11 % [facility] Eosinophils Percent Auto 1.8 0 - 4 % [facility] Basophils Percent Auto 0.6 0 - 2 % [facility] NRBC Pct Auto 0.0 0.0 - 0.2 /100WBC [facility] Neutrophils Absolute Auto 3.9 2.0 - 8.3 x10*3/uL [facility] Imm Gran Abs Auto 0.03 0.00 - 0.03 X10*3/uL [facility] Lymphocytes Absolute Auto 1.7 1.2 - 4.9 X10*3/uL [facility] Monocytes Absolute Auto 0.4 0.1 - 1.2 X10*3/uL [facility] Eosinophils Absolute Auto 0.1 0.0 - 0.4 X10*3/uL [facility] Basophils Absolute Auto 0.0 0.0 - 0.2 X10*3/uL [facility] NRBC Abs Auto 0.000 0.0 - 0.012 X10*3/uL [facility] 11/01/2024 4:48 PM EST 11/01/2024 4:52 PM EST us Generic External Data Provider LAB BLOOD ORDERAB LES Final Result [facility] [address] [place] [phone] * Partial Thromboplastin Time, Activated (APTT) (11/01/2024 4:48 PM EST) Partial Thromboplastin Time 28.0 26.0 - 36.8 SEC [facility] Comment:For information rega rding the monitoring of direct thrombininhibitors, please refer to Pharmacy. 11/01/2024 4:48 PM EST 11/01/2024 4:52 PM EST Generic External Data Provider LAB BLOOD ORDERAB LES Final Result Performing Organization Address [facility] Co de Phone Number [facility] [address] [place] [phone] * Prothrombin Time-INR (11/01/2024 4:48 PM EST) Prothrombin Time 11.6 10.9 - 12.4 SEC [facility] INTERNATIONAL NORM RATIO 1.0 0.9 - 1.1 [facility] Comment:INTERNATIONAL NORMAL IZED RATIO (INR) REFERENCE [...] ORDERAB LES Final Result Performing Organization Address [facility] de Phone Number [facility] [address] [place] [phone] * B Type Natriuretic Peptide (BNP) (11/01/2024 4:48 PM EST) B Type Natriuretic Peptide <10 <100 pg/mL [facility] Comment:For those patients w ho are being treated with Natrecor(nesiritide, recombinant BNP), BNP testing should beperformed at least two hours post treatment in order toensure that only endogenous levels of BNP are detected. 11/01/2024 4:48 PM EST 11/01/2024 4:52 PM EST us Generic External Data Provider LAB BLOOD ORDERAB LES Final Result [facility] [address] [place] [address] [phone] * (ABNORMAL) Comprehensive Metabolic Panel (11/01/2024 4:48 PM EST) Sodium 139 135 - 145 mmol/L [facility] Potassium 4.4 3.3 - 5.1 mmol/L [facility] Comment:Slight Hemolysis.Int erpret result with caution. Chloride 105 96 - 108 mmol/L [facility] Carbon Dioxide 25 22 - 29 mmol/L [facility] Anion Gap 13 12 - 20 [facility] Urea Nitrogen (BUN) 23(H) 9 - 16 mg/dL [facility] Creatinine, Serum 0.75 0.5 - 1.4 mg/dL [facility] Creatinine Clr Calc Pharmacy 76.1 [facility] Comment:Provided height and weight: 149.86 cm,72.575 kg.eGFR (calculated from the MDRD study equation) and eCrCl(calculated from the Cockcroft-Gault equation) are based ondifferent parameters and may not yield comparable results.If eCrCl result is absurd, please check patient'sheight/weight. Estimated Glomerular Filt Rate >60 [facility] Comment:Chronic Kidney Disea se: Estimated GFR < 60 mL/min/1.01z8Tjgnuf Kidney Disease: Estimated GFR < 15 mL/min/1.73m2 Glucose 102 60 - 115 mg/dL [facility] Calcium 9.5 8.4 - 10.2 mg/dL [facility] Bilirubin, Total 0.2 0.0 - 1.0 mg/dL [facility] Aspartate Amino Transferase 32(H) 5 - 31 U/L [facility] Comment:Slight Hemolysis.Int erpret result with caution. Alanine Aminotransferase 29 0 - 31 U/L [facility] Total Protein 7.7 6.5 - 8.0 g/dL [facility] Albumin Level 4.2 3.5 - 5.0 g/dL [facility] Alkaline Phosphatase 126(H) 39 - 117 U/L [facility] 11/01/2024 4:48 PM EST 11/01/2024 4:52 PM EST us Generic External Data Provider LAB BLOOD ORDERAB LES Final Result [facility] [address] [place] [address] [phone] * BI Mammogram Diagnostic Tomosynthesis Bilateral (07/15/2024 10:45 AM EDT) Anatomical Region Laterality Modality Breast Bilateral Mammography 07/15/2024 10:4 5 AM EDT Narrative 07/15/2024 12:02 PM EDT ? [facility] ? [address] ?[place] [address] ? Mammography Report ? Signed ? Patient: Brandon,Renita ?MR#: [id number] ?? 4 ? : 1970 ?Acct:[id number] ? Age/Sex: 53 / F ?ADM Date: 07/15/24 ? Loc: HO.MAMMO ? Attending Dr: Hilda Butt MD ? Ordering Physician: Hilda Butt ?Results: 2Benign F ?? indings ? Date of Service: 07/15/24 ?Follow Up: 1 Year From Orig ?? inal Mammogram ? Procedure(s): MM tomosynthesis diagnostic BI ?? Accession Number(s): [id number] ? cc: Daquan,Hilda ? EXAMINATION: ?? MM DIAGNOSTIC DIGITAL BREAST [...] DD/ 1045 ? TD/TT: 07/15/24 1119 ? Rough Carpenter: ? Procedure Note Carhelga, Image - 07/15/2024 [place] [facility] [address] [place] [address] Mammography Report Signed Patient: Adin Barndon#: [id number] 4 : 1970Acct:[id number] Age/Sex: 53 / FADM Date: 07/15/24 Loc: .MAMMO Attending Dr: Hilda Butt MD Ordering Physician: Suinl Buttults: 2Benign F indings Date of Service: 07/15/24Follow Up: 1 Year From Orig inal Mammogram Procedure(s): MM tomosynthesis diagnostic BI Accession Number(s): [id number] cc: Hilda Butt EXAMINATION: MM DIAGNOSTIC DIGITAL [...] 07/15/24 1158 DD/ 1045 TD/TT: 07/15/24 1119 Rough Carpenter: us Hilda Butt MD IMG BI PROCEDURES Final Result * HPV mRNA E6/E7 w/Reflex to HPV Genotypes 16, 18/45 (02/20/2024 12:12 PM EDT) HPV nRNA E6/E7 Not Detected Not Detected [facility] Comment:Methodology: Transcr iption-Mediated AmplificationThis assay detects E6/E7 viral messenger RNA (mRNA) from 14high-risk HPV types (16,18,31,33,35,39,45,51,52,56,58,59,66,68).Cervical sources are required for HPV testing.If a vaginal source from a patient who has had atotal hysterectomy with removal of cervix wassubmitted, please contact the testing laboratoryfor alternative testing options.For additional information, please refer tohttp://education.[employer]/faq/WUF428v2(This link if provided for information/educational purposes only.)THIS TEST WAS PERFORMED AT:[facility] [place] [phone] GARCIA MD HPV mRNA E6/E7 [facility] HPV 16 RNA [facility] HPV 18/45 RNA [facility] 02/20/2024 12:1 2 PM EDT 02/24/2024 7:30 AM EDT Hilda Butt MD LAB CYTOLOGY ORDERABLES Final Result [facility] [address] [place] [phone] * Pap Smear (02/20/2024 12:12 PM EDT) 02/20/2024 12:1 2 PM EDT 02/24/2024 7:30 AM EDT Narrative [facility] - 03/13/2024 5:52 PM EDT ----- ------- Name: Renita Brandon ?Age/Sex: 53/F ? : 1970 Unit#: [id number] ?? Attend Dr: Hilda Butt ?Re02/20/24 ?Status: DEP REF ? Location: HO.LNP ?Disch: ? ----- ------- SPEC : [id number] ? RECD: 02/24/24 ? STATUS: ??SOUT ? REQ NUM: [id number] ? ANNE: 02/20/24-1211 ? SUBM DR: Hilda [...] 66, 68) ? HPV testing performed by [facility], [place], [place]. ??See reference laboratory ?? portion of the EMR for entire report. ?Clinical Information LMP: Postmenopausal Previous PAP test: 2019, NILM Other surgery:Hysterectomy, cervical sparing in 2021 for fibroids Other history: No prior abnormal ? Material Received ?? ThinPrep-Cervical ----- ------- Signed (signature on file) Amparo Cummings Michelle 03/13/241751 ? ----- ------- ? END OF REPORT ? Hilda Butt MD LAB CYTOLOGY ORDERABLES Final Result [facility] [address] [place] [address] [phone] * HEPATITIS C AB W/REFL TO [...] a test for HCV RNA (test code 46755) is suggested. ?? For additional information please refer to http://education.[employer]/faq/LCE40r9 (This link is being provided for informational/ educational purposes only.) ?? 05/09/2022 4:02 PM EDT Tararazia Paniagua BIOLOGY PROFESSOR HISTORICAL/NON ORDERABLE LABS Final Result Performing Organization Address [facility] Co de Phone Number [facility] [address] * HIV 1/2 ANTIGEN/ANTIBODY,FOURTH GENERATION W/RFL (05/09/2022 4:02 PM EDT) Pathologist [facility] HIV-1/2 ANTIGEN AND ANTIBODIES, 4TH GENERATION W/ [...] ? For additional information please refer to http://[employer]/faq/YBW729 (This link is being provided for informational/ educational purposes only.) ? The performance of this assay has not been clinically validated in patients less than 2 years old. ?? 05/09/2022 4:02 PM EDT us Tara Paniagua BIOLOGY PROFESSOR LAB BLOOD ORDERABLES Final Res ult [facility] [address] [place] [address], * (ABNORMAL) LIPID PANEL, STANDARD (03/29/2022 3:50 [...] ?? Kirk NEWSOME et al. RUTH. 2013;310(19): 7242-0081 ?? (http://education.[employer]/faq/OUA135) Non-HDL Cholesterol 166(H) <130 mg/dL (calc) FOUNDATION [...] fasting specimen if clinically indicated. ?? Dunia joshi al. J. of Clin. Lipidol. 2015;9:129-169. ?? 03/29/2022 3:50 PM EDT us Tara Manriquesch BIOLOGY PROFESSOR LAB BLOOD ORDERABLES Final Res ult [facility] [address] [place] [address], from Last 3 Months or Most Recently Relevant to Health Maintenance Insurance [facility] Care Teams Fuel Efficient Automobile Designer Relationship Specialty Start Date End Date Hilda Butt MD [address] [place] [address] PCP - General Family Medicine 06/20/22
--- OUTSIDE RECORDS SUMMARY | 2025-01-04 15:26 | XMS_ITS | Encounter Summary ---
Author Organization [employer] Address [address] [place] [address] Care Team Providers Care Scrub Technician Name Role Phone Hilda Butt MD Primary Care Provider [phone] Reason for Visit * Reason Onset Date Comments Med Refill 04/22/2024 Encounter Details Date Type Department Care Team ([facility] st Contact Info) Description 04/22/2024 Refill [facility] MEDICINE [address] [place], [place] [phone] Hilda Butt MD [address] [place], [place] [phone] Neck pain Social History Tobacco Use Types [...] documented as of this encounter Care Teams Scrub Technician Relationship Specialty Start Date End Date Hilda Butt MD [address] [place] [address] PCP - General Family Medicine 06/20/22 documented as of this encounter
--- OUTSIDE RECORDS SUMMARY | 2025-01-04 15:26 | XMS_ITS | Encounter Summary ---
Author Organization [employer] Address [address] [place] [address] Care Team Providers Care Manager Etl Name Role Phone Hilda Butt MD Primary Care Provider [phone] Reason for Visit * Reason Onset Date Comments Med Refill 11/18/2024 Encounter Details Date Type Department Care Team ([facility] st Contact Info) Description 11/18/2024 Refill [facility]S [address] [place], [place] [phone] Hilda Butt MD [address] [place] [address] Social History Tobacco Use Types Packs/Day Years [...] documented as of this encounter Care Teams Manager Etl Relationship Specialty Start Date End Date Hilda Butt MD [address] [place] [address] PCP - General Family Medicine 06/20/22 documented as of this encounter
--- OUTSIDE RECORDS SUMMARY | 2025-01-04 15:26 | XMS_ITS | Encounter Summary ---
Author Organization [employer] Address [address] [place] [address] Care Team Providers Care Logistics Associate Name Role Phone Hilda Butt MD Primary Care Provider [phone] Encounter Details Date Type Department Care Team ([facility] st Contact Info) Description 11/05/2024 Orders Only [facility] MEDICINE [address] [place], [place] [phone] Hilda Butt MD [address] [place], [place] [phone] Social History Tobacco Use Types Packs/Day Years [...] documented as of this encounter Care Teams Logistics Associate Relationship Specialty Start Date End Date Hilda Butt MD [address] [place] [address] PCP - General Family Medicine 06/20/22 documented as of this encounter
--- OUTSIDE RECORDS SUMMARY | 2025-01-04 15:26 | XMS_ITS | Encounter Summary ---
Author Organization [employer] Address [address] [place] [address] Care Team Providers Care Aviation Electronics Technician Name Role Phone Hidla Butt MD Primary Care Provider [phone] Reason for Visit * Reason Onset Date Comments Med Refill 01/22/2024 Encounter Details Date Type Department Care Team ([facility] st Contact Info) Description 01/22/2024 Refill [facility] MEDICINE [address] [place], [place] [phone] Hilda Butt MD [address] [place], [place] [phone] Social History Tobacco Use Types Packs/Day Years [...] documented as of this encounter Care Teams Aviation Electronics Technician Relationship Specialty Start Date End Date Hilda Butt MD [address] [place] [phone] PCP - General Family Medicine 06/20/22 documented as of this encounter
--- OUTSIDE RECORDS SUMMARY | 2025-01-04 15:26 | XMS_ITS | Encounter Summary ---
Author Organization [employer] Address [address] [facility] 7t [place] [address] Care Team Providers Care Shuttle Buggy Operator Name Role Phone Hilda Butt MD Primary Care Provider Reason for Visit * Reason Comments Med Refill Encounter Details Date Type Department Care Team ([facility] st Contact Info) Description 04/23/2023 Refill [facility] MEDICINE [address] [place], [place] [phone] Shamar Stevens FNP Bipolar II disorder (CMS/HCC) [...] documented as of this encounter Care Teams Shuttle Buggy Operator Relationship Specialty Start Date End Date Hilda Butt MD 230 [place] [address] PCP - General Family Medicine 06/20/22 documented as of this encounter
--- OUTSIDE RECORDS SUMMARY | 2025-01-04 15:27 | XMS_ITS | Clinical Summary ---
Author Organization Formerly [facility] Address [address] [place] [address] Care Team Providers Care Assurance Manager Insurance Name Role Phone Hilda Butt MD Primary Care Provider + Char Juarez MD Unavailable [phone] Allergies No known active allergies Medications Medication [...] place to sleep or slept in a assisted (including now)? No 01/17/2023 Sex and Gender [...] Decision Thoroughly Discussed with: Patient Care Teams Assurance Manager Insurance Relationship Specialty Start Date End Date Hilda Butt MD [address] [place], [place] [phone] PCP - General General Medicine 01/16/23 Char Juarez MD [address] [facility] [address] [place] [address] 01/16/23
--- OUTSIDE RECORDS SUMMARY | 2025-01-04 15:27 | XMS_ITS | Encounter Summary ---
Author Organization [employer] Address [address] [facility] [address] 7t [place] [address] Care Team Providers Care Marker Shipments Name Role Phone Hilda Butt MD Primary Care Provider [phone] Encounter Details Date Type Department Care Team ([facility] st Contact Info) Description 08/19/2023 Abstract [facility] MEDICINE 230 [place], [place] [phone] Hilda Butt MD [address] [place], [place] [phone] Social History Tobacco Use Types Packs/Day Years [...] documented as of this encounter Care Teams Marker Shipments Relationship Specialty Start Date End Date Hilda Butt MD 230 [place] [address] PCP - General Family Medicine 06/20/22 documented as of this encounter
--- OUTSIDE RECORDS SUMMARY | 2025-01-04 15:27 | XMS_ITS | Encounter Summary ---
Author Organization [employer] Address [address] [facility] [address] 7t [place] [address] Care Team Providers Care Assistant Grocery Store Manager Name Role Phone Hilda Butt MD Primary Care Provider [phone] Encounter Details Date Type Department Care Team ([facility] st Contact Info) Description 08/19/2023 Abstract [facility] MEDICINE 230 [place], [place] [phone] Hilda Butt MD [address] [place], [place] [phone] Social History Tobacco Use Types Packs/Day Years [...] documented as of this encounter Care Teams Assistant Grocery Store Manager Relationship Specialty Start Date End Date Hilda Butt MD [address] [place] [address] PCP - General Family Medicine 06/20/22 documented as of this encounter
--- OUTSIDE RECORDS SUMMARY | 2025-01-04 15:27 | XMS_ITS | Encounter Summary ---
Author Organization [employer] Address [address] [facility] [address] 7t [place] [address] Care Team Providers Care Bridges Supervisor Name Role Phone Hilda Butt MD Primary Care Provider [phone] Reason for Visit * Reason Comments Med Refill Encounter Details Date Type Department Care Team ([facility] st Contact Info) Description 11/22/2024 Refill [facility] MEDICINE [address] [place], [place] [phone] Hilda Butt MD [address] [place], [place] [phone] Social History Tobacco Use Types Packs/Day Years [...] documented as of this encounter Care Teams Bridges Supervisor Relationship Specialty Start Date End Date Hilda Butt MD [address] [place] [address] PCP - General Family Medicine 06/20/22 documented as of this encounter
--- OUTSIDE RECORDS SUMMARY | 2025-01-04 15:27 | XMS_ITS | Encounter Summary ---
Author Organization [employer] Address [address] [facility] 7t [place] [address] Care Team Providers Care Corporate Intern Name Role Phone Hilda Butt MD Primary Care Provider [phone] Reason for Visit * Reason Onset Date Comments PA 12/25/2022 Encounter Details Date Type Department Care Team ([facility] Contact Info) Description 12/25/2022 Telephone [facility] MEDICINE [address] [place], [place] [phone] Hilda Butt MD [address] [place], [place] [phone] [place] Social History Tobacco Use Types Packs/Day [...] Lower back pain. Please contact pt at [phone] documented in this encounter Plan of Treatment Not on file documented as of this encounter Visit Diagnoses Not on filedocumented in this encounter Care Teams Corporate Intern Relationship Specialty Start Date End Date Hilda Butt MD [address] [place] [address] PCP - General Family Medicine 06/20/22 documented as of this encounter
--- OUTSIDE RECORDS SUMMARY | 2025-01-04 15:27 | XMS_ITS | Data Portability ---
Author Organization [employer] Address [address] [place] [address] Care Team Providers Care Enhanced Environmental Operator Name Role Phone HIM CCA OTHER Assessment Encounter Date Assessment Date Assessment LastModified by Organization Details LastModified Time 10/26/2023 10/26/2023 I provided real -time medical direction via phone for this encounter, and was available for additional phone based assistance as needed. I have reviewed and agree with the Assessment and Plan as documented by the Junior Media Buyer. Patient given the opportunity to ask questions. [...] Assessment and Plan as documented by the Junior Media Buyer. Patient given the opportunity to ask questions. [...] Ag, QL IA, respiratory specimen 2022 [facility]23 [facility], [address] [place] [address], [phone], 3 17:51:19 Referral None recorded. Procedures None recorded. Surgeries None recorded. Imaging electrocard iogram 2023 024 [facility], [address] [place] [address], [phone], 4 17:16:38 Medication Orders prednisone 20 mg tablet 2023 024 aci Not available 4 14:59:40 prednisone 20 mg tablet 2023 024 gbaci Not available 4 14:59:40 doxycycline hyclate 100 mg tablet 2023 024 [facility], [address] [place] [address], [id number], 4 14:00:23 doxycycline hyclate 100 mg tablet 2023 024 [facility], [address] [place] [address], [id number], 14:59:40 Patient TargetsNo targets recorded. Patient InstructionsNo instructions recorded. Reason for Referral None Reported. Results Created Date Observation Date Name Description Value Unit Range Abnormal Flag Note LastModifiedBy Organization Detail LastModifiedTime 10/26/20 23 10/26/2023 rapid SARS CoV 2 Ag, QL IA, respi rator y speci men rapid SARS CoV 2 Ag, QL IA, respiratory specimen positi ve Not Available Main - Inst ed [address] [place] [address], [phone], 10/26/2023 17:48:34 11/02/19 24 11/02/2023 elect jet jenkins am No observ ation record ed. [address] [facility] [address] [place] [address], [phone], 11/02/2023 17:37:03 Result Notes None recorded. Procedures Surgical History None recorded. Imaging Results Imaging Date Name Status LastModified by Organization Details LastModified Time 11/02/2023 electrocardiogram completed [address] [facility] [address] [place] [address], [phone], 11/02/2023 17:37:03 Procedure Notes None recorded. Medical [...] Available Not Available No t Available omega 8-mzm-sbw-fis h oil 60 mg-90 mg-500 mg capsule [...] cm 98 % 98 % 90 /min 59605.7 2 g 98.6 [degF] 155 mm[Hg] 80 mm[Hg] Not Available [employer] - production 3 17:48:09 Date Recorded Body weight Respiratory rate Heart rate Body height Oxygen saturation Oxygen saturation in Arterial blood by Pulse oximetry Body temperature Systolic blood pressure Diastolic blood pressure Provider Name and Address Organization Details Last Updated DateTime 4 87646.7 2 g 16 /min 107 /min 149.86 cm 99 % 99 % 99.3 [degF] 127 mm[Hg] 75 mm[Hg] Not Available [employer] 4 14:43:50 Date Recorded Oxygen saturation Oxygen saturation in Arterial blood by Pulse oximetry Respiratory rate Body height Body temperature Heart rate Body weight Systolic blood pressure Diastolic blood pressure Provider Name and Address Organization Details Last Updated DateTime 4 96 % 96 % 18 /min 149.86 cm 99.7 [degF] 95 /min 21535.7 2 g 149 mm[Hg] 85 mm[Hg] Not Available [employer] - production 4 21:15:31 Date Recorded Respiratory rate Oxygen saturation Oxygen saturation in Arterial blood by Pulse oximetry Body weight Heart rate Body temperature Body temperature Systolic blood pressure Diastolic blood pressure Systolic blood pressure Diastolic blood pressure Provider Name and Address Organization Details Last Updated DateTime 4 16 /min 97 % 97 % 86420.7 2 g 88 /min 100.6 [degF] 99.3 [...] SNOMED-CT Code Diagnosis ICD10 Code Diagnosis Note [id number] Chandrika Harvey MD Main - [address] [phone] 10/26/2023 17:48:07 10/28/2023 12:39:36 Respiratory tract congestion and cough [id number] R05.9 [id number] NIKIA AMATO MD [facility] [address] [place] [phone] 11/02/2023 14:43:48 11/03/2023 12:13:44 Acute exacerbation of chronic obstructive pulmonary disease [id number] J44.1 Evaluation in the field was performed by my post closer colleague, as noted above, I provided real-time [...] concerns. Chandrika Harvey MD Main - [facility] [address] [place] [phone] 12/12/2023 21:15:30 12/13/2023 12:40:12 Chronic low back pain [id number] M54.50 [id number] Jorge Luis Gates MD Main - [facility] [address] [place] [phone] 07/02/2024 17:31:28 07/05/2024 22:19:44 Hypotensive episode [id number] I95.9 As noted, we were called to see this patient regarding concerns of hypotensio n. Evaluation in the field was performed by my post closer colleague, as noted above, I provided real-time direction and supervisio n for this visit. She had gone to urgent care earlier in the day for symptoms of COPD and was given Augmentin. She had an episode of low blood pressure for which we were dispatched . On the post closer examinatio n, she had a normal physical [...] [employer] Member ID Guarantor Name 10/26/2023 1 [facility] - DOS ON OR AFTER 2023 - DUAL ELIGIBLE - ASSISTED OPTIONS AND ONE CARE (MEDICARE REPLACEMENT/ADV ANTAGE - HMO) Renita Haddad [id number] Renita Haddad 11/02/[address] [facility] - DOS ON OR AFTER 2023 - DUAL ELIGIBLE - ASSISTED OPTIONS AND ONE CARE (MEDICARE REPLACEMENT/ADV ANTAGE - HMO) Renita Haddad [id number] Renita Haddad 12/12/2023 1 [facility] - DOS ON OR AFTER 2023 - DUAL ELIGIBLE - ASSISTED OPTIONS AND ONE CARE (MEDICARE REPLACEMENT/ADV ANTAGE - HMO) Renita Haddad [id number] Renita Haddad 07/02/[address] [facility] - DOS ON OR AFTER 2023 - DUAL ELIGIBLE - ASSISTED OPTIONS AND ONE CARE (MEDICARE REPLACEMENT/ADV ANTAGE - HMO) Renita Haddad [id number] Renita Haddad Notes Date Note Type Note Provider Name and Address Organization Details Recorded Time 10/26/2023 text/html [facility] Nurse Triage Notes (Demian Hernandez): Chief Complaints: URI Allergies: Unknown Comments: Member reports feeling unwell x1 day - Congestion with body aches - Denies cough/fever - Home COVID test was positive - Hedy SYLVESTER ................... ................... ................... ................... ................... ................... ................... ........ Junior Media Buyer Note From Sunil Schaefer: Pt reports runny [...] ................... ........ Disposition: Fulfilled Chandrika Harvey MD [address] [place] [address],[address], [place], [address], [employer] 10/26/2023 17:51:42 11/02/2023 text/html [facility] Nurse Triage [...] Complaints: Cough, Weakness/Lethargy, URI Allergies: Unknown Comments: [employer] verified the pt.? s address and phone [...] ................... ................... ................... ................... ................... ................... ........ Junior Media Buyer Note From Sunil Schaefer: Pt tested positive for covid last Friday and is still experiencing sx despite retesting negative. Sx include dry cough, chest tightness, weakness and mild SOB. Pt is alert, NAD. VSS. Afebrile. Non focal neuro exam. Normal gait. Lungs CTA. Benign ABD exam. No LE edema. Rapid covid and flu negative. ECG uploaded. [facility] contacted and pt treated with doxycycline 100 mg and prednisone 40 mg. Pt instructed to seek emergent medical care for new or worsening sx, which are reviewed with her. ................... ................... ................... ................... ................... ................... ................... ........ Disposition: Patt AMATO MD [address] [facility],[address], [place], [address], [facility] 11/02/2023 17:21:37 12/12/2023 text/html HPI: PMH: Left bundle branch block, Vertebral artery dissection. Call to Renita Brandon, reports having body aches x 1 weeks. Per pt no JOSE GUADALUPE sx, fever or urinary sx. Per pt pain is from the waist down. Pt has been using Motrin PRN for pain. Pt states has difficulty with walking. Pt advised of disposition, agrees to [facility] for exam since no appt in office and Holiday on Friday. ................... ................... ................... ................... ................... ................... ................... ........ [facility] Nurse Triage Notes (Anum Stone): Comments: HPI reviewed. No further information needed to process visit. ................... ................... ................... ................... ................... ................... ................... ........ Junior Media Buyer Note From Katt Alexis: Sent to a [...] but [facility]/possi ble Toradol injection. Pt advised to call 911 if condition persists/worsens. Red flags discussed. Pt has no further questions. ................... ................... ................... ................... ................... ................... ................... ........ Disposition: Fulfilled Chandrika Harvey MD [address] [facility],[address], [place], [address], [employer] 12/12/2023 21:18:21 07/02/2024 text/html [facility] Nurse Triage [...] ................... ................... ................... ................... ................... ................... ........ Junior Media Buyer Note From Rojas Fisher: Pt co hypertension asymptomatic, pt sts [facility] came earlier and evaluated BP pt was 96/68 ..pt was seen by urgent care earlier today. Pt sts she feels ok and has no symptoms. Her pcpc put her on augmentin today. Pt denies fever sob cough , NVD, cp, dizziness. Baseline vitals assessed, WNL, lungs clear afebrile. C contacted and advised pt to monitor symptoms and drink plenty of fluids. Pt advised not to take water pill however took anyway. Pt education on signs indicating the ER. Pt advised to follow up with pcp. ................... ................... ................... ................... ................... ................... ................... ........ Disposition: Fulfilled Jorge Luis Gates MD [address] [facility], [place], [address], PETER ANNE 07/02/2024 21:57:09 OBGyn Episode No OBEpisode recorded.
--- OUTSIDE RECORDS SUMMARY | 2025-01-04 15:27 | XMS_ITS | Encounter Summary ---
Author Organization [employer] Address [address] [facility] 7t [place] [address] Care Team Providers Care Human Resource Advisor Name Role Phone Hilda Butt MD Primary Care Provider [phone] Reason for Visit * Reason Onset Date Comments Medication Question 11/19/2022 Encounter Details Date Type Department Care Team ([facility] Contact Info) Description 11/19/2022 Telephone [facility] MEDICINE [address] [place], [place] [phone] Hilda Butt MD 230 [place], [place] [phone] Medication Question Social History Tobacco Use Types [...] regarding nebulizer medication Please contact Marina at [phone] documented in this encounter Plan of Treatment Not on file documented as of this encounter Visit Diagnoses Not on filedocumented in this encounter Care Teams Human Resource Advisor Relationship Specialty Start Date End Date Hilda Butt MD [address] [place] [address] PCP - General Family Medicine 06/20/22 documented as of this encounter
--- OUTSIDE RECORDS SUMMARY | 2025-01-04 15:27 | XMS_ITS | Encounter Summary ---
Author Organization [employer] Address [address] [facility] [address] [place] [address] Care Team Providers Care Integrity Analyst Name Role Phone Hilda Butt MD Primary Care Provider [phone] Reason for Visit * Reason Comments Med Refill Encounter Details Date Type Department Care Team ([facility] st Contact Info) Description 06/29/[address] [facility] MEDICINE [address] [place], [place] [phone] Hilda Butt MD [address] [place], [place] [phone] Lower extremity edema Social History Tobacco Use [...] documented as of this encounter Care Teams Integrity Analyst Relationship Specialty Start Date End Date Hilda Butt MD [address] [place] [address] PCP - General Family Medicine 06/20/22 documented as of this encounter
--- OUTSIDE RECORDS SUMMARY | 2025-01-04 15:27 | XMS_ITS | Encounter Summary ---
Author Organization [employer] Address [address] [facility] [address] [place] [address] Care Team Providers Care Desk Manager Name Role Phone Hilda Butt MD Primary Care Provider [phone] Reason for Visit * Reason Comments Med Refill Encounter Details Date Type Department Care Team ([facility] st Contact Info) Description 2024 Refill [facility] MEDICINE 230 [place], [place] [phone] Hilda Butt MD [address] [place], [place] [phone] Social History Tobacco Use Types Packs/Day Years [...] documented as of this encounter Care Teams Desk Manager Relationship Specialty Start Date End Date Hilda Butt MD [address] [place] [address] PCP - General Family Medicine 06/20/22 documented as of this encounter
--- OUTSIDE RECORDS SUMMARY | 2025-01-04 15:27 | XMS_ITS | Encounter Summary ---
Author Organization [employer] Address [address] [facility] [address] [place] [address] Care Team Providers Care Repairer General Name Role Phone Hilda Butt MD Primary Care Provider [phone] Reason for Visit * Reason Onset Date Comments Med Refill 10/16/2023 Encounter Details Date Type Department Care Team ([facility] Contact Info) Description 10/16/2023 Refill [facility] [address] [place], [place] [phone] Hilda Butt MD [address] [place] [address] Social History Tobacco Use Types Packs/Day Years [...] documented as of this encounter Care Teams Repairer General Relationship Specialty Start Date End Date Hilda Butt MD [address] [place] [address] PCP - General Family Medicine 06/20/22 documented as of this encounter
--- OUTSIDE RECORDS SUMMARY | 2025-01-04 15:27 | XMS_ITS | Data Portability ---
Author Organization [facility] [employer] [facility] Main Office Address [address] [place] [address] Care Team Providers Care Rib Bender Name Role Phone LINDA GOFF - 4TH FLOOR OTHER FRANNIE ARSHAD Primary Care Provider [phone] Assessment No assessment recorded. Plan of Treatment [...] and Address Organization Details Recorded Time Dysphagia 24422609 Active 2024 Jessica [place] NP [address] , [address], [place], [address], [facility] 5 15:19:53 Left hemiplegia 004278218 Active 2024 Jessica [place] NP [address] , [address], [place], [address], [facility] 5 15:20:52 Cerebrovascula r accident 798573835 Active 2024 Jessica [place] NP [address], [address], [place], [address], [facility] 5 15:20:58 Carotid artery stenosis 66648458 Active 2024 Jessica [place] NP [address], [address], [place], [address], [facility] 5 15:22:09 Congestive heart failure 71867929 Active 2024 Jessica [place] NP [address], [address], [place], [address], [facility] 5 15:22:17 Chronic obstructive pulmonary disease 82151620 Active 2024 Jessica [place] NP [address], [address], [place], [address], [facility] 5 15:22:23 Automatic implantable cardiac defibrillator in situ 433832710 Active 2024 Jessica [place] NP [address], [address], [place], [address], [facility] 5 15:22:38 Bipolar disorder 72405218 Active 2024 Jessica [place] NP [address], [address], [place], [address], [facility] 5 15:22:46 Hypoxia 766465092 Active 2024 Jessica [place] NP [address], [address], [place], [address], [facility] 5 15:24:15 Hypertensive disorder 21157158 Active 2024 Jessica [place] NP [address], [address], [place], [address], [facility] 5 15:24:34 Hyperlipidemia 15177820 Active 2024 Jessica [place] NP [address], [place], [address], [facility] 5 15:24:44 Anemia 035781123 Active 2024 Jessica [place] NP [address], [address], [place], [address], [facility] 5 15:40:32 Gastroesophage al reflux disease 253656205 Active 2024 Jessica [place] NP [address], [address], [place], [address], [facility] 5 15:45:51 Problem Notes None recorded. Medical Equipment None Reported. Allergies Allergen ID Allergen Name Allergen Category Reaction Reaction Severity Criticality Documentation Date Start Date Code Code System Note Provider Name and Address Organization Details Recorded Time 19103 lisinopri l medicatio n other Not available unabletoasse 12/09/2024 06038 RxNorm unkno wn Not Available Not Available Not Available Medications Not known to be on any medication Vitals Date Recorded Body weight Heart rate Respiratory rate Body temperature Oxygen saturation Oxygen saturation in Arterial blood by Pulse oximetry Systolic blood pressure Diastolic blood pressure Provider Name and Address Organization Details Last Updated DateTime 5 16971.5 2 g 72 /min 18 /min 97.8 [degF] 97 % 97 % 124 mm[Hg] 70 mm[Hg] Jessica [place] NP [address], [address] , [facility] 5 08:45:18 Date Recorded Body weight Heart rate Respiratory rate Body temperature Oxygen saturation Oxygen saturation in Arterial blood by Pulse oximetry Systolic blood pressure Diastolic blood pressure Provider Name and Address Organization Details Last Updated DateTime 5 15870.9 3 g 74 /min 18 /min 98 [degF] 98 % 98 % 131 mm[Hg] 74 mm[Hg] Jessica [place] NP [address], [address] , [facility] 5 14:47:26 Date Recorded Body weight Heart rate Respiratory rate Body temperature Oxygen saturation Oxygen saturation in Arterial blood by Pulse oximetry Systolic blood pressure Diastolic blood pressure Provider Name and Address Organization Details Last Updated DateTime 5 36467.9 3 g 68 /min 18 /min 98 [degF] 98 % 98 % 128 mm[Hg] 72 mm[Hg] Jessica [place] NP [address], [address] , [facility] 5 13:20:25 Date Recorded Body weight Heart rate Respiratory rate Body temperature Oxygen saturation Oxygen saturation in Arterial blood by Pulse oximetry Systolic blood pressure Diastolic blood pressure Provider Name and Address Organization Details Last Updated DateTime 5 22337.9 3 g 74 /min 18 /min 97.8 [degF] 97 % 97 % 120 mm[Hg] 74 mm[Hg] Jessica [place], EDGING CATCHER [address] [facility], [address], [place], [address], [facility] 5 08:37:01 Social History Question Answer Notes LastModified by Organizat ion Details LastModified Time Tobacco Smoking Status Former Smoker Jessica [place], EDGING CATCHER [address] [facility], [address], [place], [address], [facility] 12/09/2024 15:31:49 Do You Have An Advance [...] Hep B, unspecified formulation 4 completed Rossi servin [facility] 12/09/2024 15:28:00 Hep B, unspecified formulation 4 david servin [facility] 12/09/2024 15:28:09 Hep B, unspecified formulation 4 david servin [facility] 12/09/2024 15:28:17 Tdap 4 completed Rossi Celaya null, [facility] 12/09/2024 15:29:05 Tdap 4 completed Rossi Celaya null, [facility] 12/09/2024 15:29:14 Pneumococcal conjugate PCV 13 4 completed Rossi Celaya null, [facility] 12/09/2024 15:29:28 pneumococcal polysaccharide PPV23 1 [facility] 15:29:45 influenza, unspecified formulation 3 completed [facility] 12/09/2024 15:30:08 influenza, unspecified formulation 4 completed [facility] 12/09/2024 15:30:14 Hep A, unspecified formulation 4 completed Rossi Celaya [facility] 12/09/2024 15:30:29 Hep A, unspecified formulation 4 completed Rossi Celaya [facility] 12/09/2024 15:30:37 SARS-COV-2 (COVID-19) vaccine, UNSPECIFIED 1 completed [facility] 12/09/2024 15:31:01 SARS-COV-2 (COVID-19) vaccine, UNSPECIFIED 2 completed [facility] 12/09/2024 15:31:08 SARS-COV-2 (COVID-19) vaccine, UNSPECIFIED 3 completed Rossi Celaya null, [facility] 12/09/2024 15:31:17 SARS-COV-2 (COVID-19) vaccine, UNSPECIFIED 4 completed [facility] 12/09/2024 15:31:25 zoster, unspecified formulation 2 completed [facility] 12/09/2024 15:31:41 zoster, unspecified formulation 2 completed [facility] 12/09/2024 15:31:51 Past Encounters Encounter ID Performer Location Encounter Start Date Encounter Closed Date Diagnosis/Indication Diagnosis SNOMED-CT Code Diagnosis ICD10 Code Diagnosis Note [id number] Jessica [place] NP [address] [address] 12/09/2024 15:03:43 12/10/2024 13:27:31 Carotid artery stenosis 89710687 I65.29 sp right carotid endarterec jaida, performed on 11/22/24. She suffered a right carotid dissection , hematoma, as well as a CVA, which left her with left sided hemiplegia and dysphagia now on tube feedsmonit or s/s of infectionv itals qd x 2 weeksbmp and cbc weekly x 3 weeks Cerebrovas cular accident 720755323 I63.9 sp right carotid endarterec jaida, performed on 11/22/24. She suffered a right carotid dissection , hematoma, as well as a CVA, which left her with left sided hemiplegia and dysphagia now on tube feedsPT OT eval and treatsuppo rtive careturn and position vazquez r Left hemiplegia 66075441 8 G81.90 see above Dysphagia 29133241 R13.1 0 NPOmeds through g tubegoal:J evity 1.0 kcal 50cc/hr wtih 240 ml water flush q 8 hours*On return from the hospital all meds are listed as PO, however she is NPO and has been receiving meds through gtube in hospital. Will leave for now and assess if some meds need to be changed if needed. Currently all meds changed to gtube here.kat monk to followmoni tor Hypoxia 323229824 G47.34 Pt with intubation rt hypoxia now resolvedmo nitor for sequelae Congestive heart failure 54407641 I50.9 chffurosem rashad 20 mg po qdmonitor bmp and s/s of Chronic ob structive pulmonary disease 27098430 J44.9 hx montelukas t 10 mg po qhscetiriz ine 10 mg po qd prnalbuter ol inhaler 2 inh q 6 hrs prn sobmonitor Automatic implantable cardiac defibrillator in situ 387883624 Z95.810 has cad with cath in past with LBBB and states pacemaker and defibrilla tor in hxmonitor Hypertensive disorder 38 439257 I10 amiodarone 400 mg po bid x 7days, then 200 mg po qd for 21 days, then stopentres to 24-36 po bidmetopro lol succinate 50 mg po qdspirolac tone 25 mg po qdmonitor Anemia 989993072 D64.9 hx offerrous sulfate 325 mgpo qd with vit c qdmonitor cbc and for s/s of bleeding Hyperlipidemia 77321795 E78.5 asa 81 mg qdatorvast atin 80 mg qhsentrest o 24-36 po bidmonitor Bipolar disorder 1622237 4 F31.9 hx ofsertrali ne 50 mg qdmonitor [id number] Benjamin Kim MD [address] [address] 12/13/2024 08:52:27 12/14/2024 15:40:23 Unsteady when walking 49960264 R26.89 PT OT eval and treatto determine baseline Carotid ar jonas stenosis 45437671 I65.21 see HPIright carotid endarterec jaida last OctoberSu fered carotid dissection and CVA with resultant left hemiplegia and dysphagia requiring patient to be NPO with g-tube placedlipi tor 80 mg qdasa 81 mg qdupdate surgery with concerns Cerebrovas cular accident 908894920 I63.031 resultant left hemiplegia and dysphagiaP T OT eval and treatmonit or for improvemen t in function Left hemiplegia 08810824 8 G81.04 see above Dysphagia 97464596 I69.3 91 currently NPOg-tube dependents peech and dietary to followcont inue tube feeds Hypoxia 334567567 G47.34 Pt with intubation rt hypoxia now resolvedmo nitor for sequelae Congestive heart failure 93498197 I50.22 lasix 20 mg qdentresto 24-26 mg bidmonitor respirator y and fluid status Chronic ob structive pulmonary disease 48447035 J41.1 carrying dxcontinue out patient medsmonito r respirator y status and albuterol utilizatio n Automatic implantable cardiac defibrillator in situ 474327449 Z95.810 currently maintained onamiodaro ne taper, hx LBBBknown cad continued on asa, statin, and beta yamini Hypertensive disorder 38 323934 I10 entresto 24-36 po bidmetopro lol 50 mg po qdlasix 20 mg qdspirolac tone 25 mg po qdmonitor bp and need to titrate Anemia 411379891 D50.8 monitor cbciron studies prncontinu e supplement s Bipolar disorder 0164474 4 F31.89 carrying dx added to PMHzoloft 50 mg qdmonitor sxpsych eval prn Coronary arteriosclerosis 46736856 I25.10 lipitor 80 mg qdasa 81 mg qdmetoprol ol 50 mg qdmonitor sx [id number] Jessica [place], [facility] [address] [facility] [place] [address] 12/16/2024 10:30:08 12/17/2024 16:22:16 Carotid artery stenosis 32469603 I65.29 sp right carotid endarterec jaida, performed on 11/22/24. She suffered a right carotid dissection , hematoma, as well as a CVA, which left her with left sided hemiplegia and dysphagia on tube feedscontm onitor s/s of infection, steri strips no offvitals qd x 2 weeksfu with surgery prnbmp and cbc weekly x 3 weeks Cerebrovas cular accident 802660550 I63.9 sp right carotid endarterec jaida, performed on 11/22/24.Sh e suffered a right carotid dissection , hematoma, as well as a CVA, which left her with left sided hemiplegia and dysphagia on tube feedsPT OT eval and treatsuppo rtive careturn and position freqassist jon with adlsmonito r Left hemiplegia 13050470 8 G81.94 see above Dysphagia 09205948 R13.1 0 NPOmeds through g tubecont g [...] to follow closelymon itor Congestive heart failure 06195603 I50.9 chffurosem rashad 20 mg po qdmonitor bmp and s/s of chf Hypertensive disorder 38 696544 I10 contamioda luanne 400 mg po bid x 7days, 200 mg po qd for 21 days, then stop for taperentre sto 24-36 po bidmetopro lol succinate 50 mg po qdspirolac tone 25 mg po qdmonitor Anemia 373070409 D64.9 hx offerrous sulfate 325 mg po qd with vit c qdmonitor cbc and for s/s of bleeding Bipolar disorder 8000523 4 F31.9 hx ofsertrali ne 50 mg qdmonitor Candidiasis of mouth 797 81286 B37.0 nystatin swish and spit x 10 daysenhanc ed teethbrush ing and oral caremouth swab with mouthwash at bedsidemon itor Chronic pain 29145325 G8 9.29 pt with pain to lower legs(pt states tyl does not work and doesn't want it)states she was on gabapentin and ibuprofen prior at home that worked welltyl prnibuprof en 400 mg gtube bidgabapen tin 100 mg tab gtube bidmonitor for relief and adjustment [id number] Jessica [place] NP [facility] [address] 12/17/2024 16:03:43 12/21/2024 09:59:18 Bipolar disorder 02166769 F31.9 hx ofsertrali ne 50 mg qdmonitor Insomnia 613353395 G47.0 0 12/17 start melatonin 5 mg po qhspsych consult [id number] MARY SHARP NP [facility] [address] 12/21/2024 11:17:22 12/23/2024 12:10:51 Insomnia 325851896 G47.00 Started melatonin 5 mg po qhs on 12/17 - not effective - increase to 10 mg q hsReferred to psychMonit or Bipolar disorder 8756422 4 F31.9 hx ofcontinue sertraline 50 mg qdCurrentl y with issues sleeping - melatonin added and referred to Psychmonit or Candidiasis of mouth 797 58036 B37.0 nystatin swish and spit x 10 days addedMaint ain oral care including brushing tonguemoni tor Chronic pain 91220241 G8 9.29 pt with pain to lower [...] relief and adjustment Carotid ar jonas stenosis 36200312 I65.29 sp right carotid endarterec jaida, performed on 11/22/24. She suffered a right carotid dissection , hematoma, as well as a CVA, which left her with left sided hemiplegia and dysphagia on tube feedscontm onitor s/s of infection, steri strips no offvitals qd x 2 weeksfu with surgery prnbmp and cbc weekly x 3 weeks Cerebrovas cular accident 032723395 I63.9 sp right carotid endarterec jaida, performed [...] assessment and pain mgmt.Monit or Left hemiplegia 08364127 8 G81.94 see above Dysphagia 02161907 R13.1 0 NPOmeds through g tubecont g tube feedings - currently on jevity 1.5 @ 50 cc/h x20 h per daydietici an followingS LP eval and tx as indicatedM onitor labs, weights, s/s aspiration . Congestive heart failure 39587759 I50.9 Continue:f urosemide 20 mg po qdentresto 24-36 po bidspirola ctone 25 mg po qdmonitor bmp and s/s of chf Hypertensive disorder 38 604036 I10 contentres to 24-36 po bidmetopro lol succinate 50 mg po qdspirolac tone 25 mg po qdlasix 20 mg qdmonitor Anemia 847212596 D64.9 hx offerrous sulfate 325 mg po qd with vit c qdmonitor cbc and for s/s of bleeding Automatic implantable cardiac defibrillator in situ 574858212 Z95.810 currently maintained onamiodaro ne taper, hx LBBBknown cad continued on asa, statin, and beta yamini [id number] Jessica [place] NP [address] [place] [address] 12/23/2024 08:44:39 12/24/2024 14:25:29 Insomnia 993162597 G47.00 contmelato haydee 10 mg q hs, recently increasedR eferred to psychMonit orconsider trazodone if no improvemen t by next week Cerebrovas cular accident 793742168 I63.9 sp right carotid endarterec jaida, performed on 11/22/24.Sh ashley suffered a right carotid dissection , hematoma, as well as a CVA, which left her with left sided hemiplegia and dysphagia on tube feeds denies pain today, seems to be doing better on increased dosescont ibuprofen 400 mg tidgabapen tin 100 mg po tidapap tidContinu e PT OT SLPContinu eASA 81 mg qd, atorvastat in [address] Flores for further assessment and pain mgmt.Monit or Left hemiplegia 10300321 8 G81.94 see above Candidiasis of mouth 797 78214 B37.0 nystatin swish and spit x 10 days total, improvingM aintain oral care including brushing tonguemoni tor Dysphagia 19433346 R13.1 0 NPOmeds through g tubecont g tube feedings - currently on jevity 1.5 @ 50 cc/h x20 h per daydietici an followingS LP eval and tx as indicatedM onitor labs, weights, s/s aspiration . Bipolar disorder 8493313 4 F31.9 hx ofcontinue sertraline 50 mg qdmelatoni n 10 mg po qhsreferre d to Psychmonit or Chronic pain 42805877 G8 9.29 pt denies pain this am Currently on:tyl 650 mg po tidibuprof en 400 mg gtube tidgabapen tin 100 mg tab gtube tidRefer to Dr. Flores for eval and tx.monitor for relief and adjustment Carotid ar jonas stenosis 10723407 I65.29 sp right carotid endarterec jaida, performed on 11/22/24. She suffered a right carotid dissection , hematoma, as well as a CVA, which left her with left sided hemiplegia and dysphagia on tube feedscontm onitor s/s of infection, steri strips no offvitals qd x 2 weeksfu with surgery prnbmp and cbc weekly x 3 weeks, not done this week will reorder for next week Congestive heart failure 93986325 I50.9 Continue:f urosemide 20 mg po qdentresto 24-36 po bidspirola ctone 25 mg po qdmonitor bmp and s/s of chf Anemia 750514199 D64.9 hx offerrous sulfate 325 mg po qd with vit c qdmonitor cbc and for s/s of bleeding [id number] Jessica [place], BRITTANEY [address] [address] 12/29/2024 14:46:44 12/30/2024 16:28:34 Cerebrovascular accident 926733986 I63.9 sp right carotid endarterec jaida, performed on 11/22/24.Sh e suffered a right carotid dissection , hematoma, as well as a CVA, which left her with left sided hemiplegia and dysphagia on tube feeds denies pain todayconti buprofen 400 mg tidgabapen tin 100 mg gtube tidapap tidPT OT SLPASA 81 mg qdatorvast atin [address] Flores for further assessment and pain mgmt.Monit or Insomnia 327208924 G47.0 0 contmelato haydee ineffectiv e and dc'dstarte d on trazodone 50 mg po qhs per psychRefer red to psychMonit or Left hemiplegia 13490675 8 G81.94 see above Dysphagia 87223840 R13.1 0 NPOmeds through g tubecont g tube feedings - currently on jevity 1.5 @ 50 cc/h x20 h per daydietici an followingS LP eval and tx as indicatedM onitor labs, weights, s/s aspiration . Bipolar disorder 3828813 4 F31.9 hx ofcontinue sertraline 50 mg qdmelatoni n 10 mg po qhstrazodo ne 50 mg po qhs for insomniare ferred to Psych[facility]it or Chronic pain 20003940 G8 9.29 pt denies pain todayCurre ntly on:tyl 650 mg po tidibuprof en 400 mg gtube tidgabapen tin 100 mg tab gtube tidRefer to Dr. Flores for eval and tx.monitor for relief and adjustment Carotid ar jonas stenosis 57326554 I65.29 sp right carotid endarterec jaida, performed on 11/22/24. She suffered a right carotid dissection , hematoma, as well as a CVA, which left her with left sided hemiplegia and dysphagia on tube feedscontm onitor s/s of infection, steri strips no offvitals qd x 2 weeksfu with surgery prnbmp and cbc weekly x 3 weeks, not done this week will reorder for next week Congestive heart failure 18819615 I50.9 Continue:f urosemide 20 mg po qdentresto 24-36 po bidspirola ctone 25 mg po qdmonitor bmp and s/s of chf Anemia 053014699 D64.9 hx offerrous sulfate 325 mg po qd with vit c qdmonitor cbc and for s/s of bleeding Recurrent falls 07397174 2 R29.6 fall during transfer today on 12/29 without injuriesmo nitor for injuries/p ainsupport viv carebed rails in place for left sided weakness to help herself movemonito r closely with protocol [id number] Jessica [place] NP [address] [address] 12/30/2024 13:16:29 01/04/2025 09:05:35 Insomnia 027803232 G47.00 seems to be helpingcon ttrazodone 50 mg po qhs per psychRefer red to psychMonit or Cerebrovas cular accident 262535021 I63.9 sp right carotid endarterec jaida, performed on 11/22/24.Sh e suffered a right carotid dissection , hematoma, as well as a CVA, which left her with left sided hemiplegia and dysphagia on tube feeds denies pain todayconti buprofen 400 mg tidgabapen tin 100 mg gtube tidapap tidPT OT SLPASA 81 mg qd for acatorvast atin 80 mg qd. Mark for further assessment and pain mgmt.Monit or Left hemiplegia 03751988 8 G81.94 see above Dysphagia 80102368 R13.1 0 NPOmeds through g tubecont g tube feedings - currently on jevity 1.5 @ 50 cc/h x20 h per daydietici an followingS LP eval and tx as indicatedM onitor labs, weights, s/s aspiration . Bipolar disorder 0462529 4 F31.9 hx ofcontinue sertraline 50 mg qdtrazodon e 50 mg po qhs for insomniare ferred to Psychmonit or Chronic pain 85196425 G8 9.29 controlled Currently on:tyl 650 mg po tidibuprof en 400 mg gtube tidgabapen tin 100 mg tab gtube tidRefer to Dr. Flores for eval and tx.monitor for relief and adjustment Carotid ar jonas stenosis 33903847 I65.29 sp right carotid endarterec jaida, performed on 11/22/24. She suffered a right carotid dissection , hematoma, as well as a CVA, which left her with left sided hemiplegia and dysphagia on tube feedsfor ac was started on a baby aspirincon tmonitor s/s of infection, steri strips no offvitals qd x 2 weeksfu with surgery prnbmp and cbc weekly x [address] Dr De Anda on 01/04, will inquire if more ac is needed or just the baby asa Congestive heart failure 44348616 I50.9 Continue:f urosemide 20 mg po qdentresto 24-36 po bidspirola ctone 25 mg po qdmonitor bmp and s/s of chf Anemia 318812878 D64.9 stablehx offerrous sulfate 325 mg po qd with vit c qdmonitor cbc and for s/s of bleeding Candidiasis of mouth 797 34446 B37.0 3/6 restart nystatin swish and spit x 10 days total, improving3 /6 start peridex mouthwash 15 ml apply to tongue throughout day with swab, provide in amMaintain oral care including brushing tonguemoni tor [id number] Jessica [place] NP [address] [address] 01/03/2025 08:35:31 01/04/2025 11:27:30 Candidiasis of mouth 22395641 B37.0 contnystat in swish and spit x 10 days total, improvingp eridex mouthwash 15 ml apply to tongue throughout day with swab, provide in amMaintain oral care including brushing tonguemoni tor Insomnia 660217811 G47.0 0 seems to be helping3/1 0 increase trazodone 50 mg to 75 mg po qhs per psychRefer red to psychMonit or Carotid ar jonas stenosis 00054471 I65.29 sp right carotid endarterec jaida, performed on 11/22/24. She suffered a right carotid dissection , hematoma, as well as a CVA, which left her with left sided hemiplegia and dysphagia on tube feedsfor ac was started on a baby aspirincon tmonitor s/s of infection, steri strips no offfu with surgery prnbmp and cbc prnhas an appt with Dr De Anda on 01/04, will inquire if more ac is needed or just the baby asa Cerebrovas cular accident 518642572 I63.9 sp right carotid endarterec jaida, performed on 11/22/24.Sh ashley suffered a right carotid dissection , hematoma, as well as a CVA, which left her with left sided hemiplegia and dysphagia on tube feeds denies pain todayconti buprofen 400 mg tid3/10 increase gabapentin from 100 mg to 200 mg tube tid3/10 add muscle rub cream tid to left kne[place]ill get ekg in 2 weeks with hx of cardiac disease on amiodarone apap tidPT OT SLPASA 81 mg qd for acatorvast atin 80 mg qd. Mark for further assessment and pain mgmt.Monit or Left hemiplegia 68904695 8 G81.94 see above Dysphagia 11444709 R13.1 0 01/01 seen by speech and started on reg diet, puree, and honey consistenc ymeds through g tubecont g tube feedings - currently on jevity 1.5 @ 50 cc/h x20 h per daydietici an followingS LP eval and tx as indicatedM onitor labs, weights, s/s aspiration . Chronic pain 68430962 G8 9.29 controlled Currently on:tyl 650 mg po tidibuprof en 400 mg gtube tid3/10 increase gabapentin from 100 mg to 200 mg tube tid3/10 add muscle rub cream tid to left kne[place] get ekg in 2 weeks with hx of cardiac disease on amiodarone apap tidRefer to Dr. Flores for eval and tx.monitor for relief and adjustment Health Concerns Section Related Observation LastModified by Organization Detai ls LastModified Time None Recorded Concern Status LastModified by Organization Details LastModified Time None Recorded Advance Directives Directive Y: Payers Encounter Date Sequence Insurance Name Policy Number Policy Stanford Covered Member ID Stanford Member ID Guarantor Name 12/21/2024 1 [facility] - DOS ON OR AFTER 2023 - MEDICARE ADVANTAGE [place] (MEDICARE REPLACEMENT/ADV ANTAGE - PPO) Renita Brandon [id number] Renita Brandon 12/23/2024 1 [employer] [facility] - DOS ON OR AFTER 2023 - MEDIC[place]/ADV ANTAGE - PPO) Renita Brandon [id number] Renita Brandon 12/29/2024 1 [facility] - DOS ON OR AFTER 2023 - [place]V ANTAGE - PPO) Renita Brandon [id number] Renita Brandon 12/30/2024 1 [facility] DOS ON OR AFTER 2023 - [place]V ANTAGE - PPO) Renita Brandon [id number] Renita Brandon 01/03/2025 1 [facility] - DOS ON OR AFTER 2023 - [place]V ANTAGE - PPO) Renita Brandon [id number] Renita Brandon Notes Date Note Type Note [...] PMH significant forcarotid artery stenosishldhtnchfanemiagerdbipolar dxcopd MARY SHARP, BRITTANEY [address] [facility], [address], [place], [address] , [facility] 12/21/2024 11:49:56 025 text/ht ml Renita is seen today for an acute visit. PMH: carotid artery stenosis, hld, htn, chf, anemia, gerd, bipolar dx, copd She is a 54 yo female admit from hospital who underwent right carotid endarterectomy on November 22, 2024. 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 Complicated by laryngeal edema post intubation. She is seen for poor sleep with some help from the melation 5 mg po qhs, but requested more to help and was increased to 10 mg. She continues with thrush on her tongue although improving on nystatin and and excellent mouth care. On exam, she is smiling and happy her bed rails are up this am to help with moving as she continues with the left sided weakness. Denies pain or other concerns. Jessica Taylor NP [address] [facility], [address], [place], [address] , [facility] [employer] 12/23/2024 09:13:09 025 text/ht ml Pt is seen today for an acute visit sp fall today. PMH: carotid artery stenosis, hld, htn, chf, anemia, gerd, bipolar dx, copd 54 yo female admit from hospital who underwent right carotid endarterectomy on November 22, 2024. 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 Complicated by laryngeal edema post intubation now here for rehab and care. Resident seen by Tyrel bowers on 12/27/24 and rec trazadone 50mg PO qhs for symptoms of agitation/anxiety. Monitor for effect and tolerance. Monitor for excessive sedation, dizziness, hypotension, falls. D/C melatonin 10mg PO qhs due to lack of effect. She was transferring from chair to bed with aide and fall. She denies any pain or injuries seen on the floor today at approx 2:30pm. She is at baseline with inability to move left side and right side intact without obvious redness, deformities, or swelling noted. Vitals stable and staff transferred her back to bed in NAD. Labs reviewed from this am and stable. She asks to go to synagogue on Friday with her fellow parishioners. She is allowed to go if a wheelchair van is able which is not her understanding at this time. Jessica Taylor NP [address] [facility], [address], [place], [address] , [employer] 12/29/2024 15:01:51 025 text/ht ml Pt is seen today for an acute visit sp fall today. PMH: carotid artery stenosis, hld, htn, chf, anemia, gerd, bipolar dx, copd Renita is a 54 yo female admit from hospital who underwent right carotid endarterectomy on November 22, 2024. Suffered unplanned carotid dissection and CVA with resultant left hemiplegia and dysphagia requiring patient to be NPO with g-tube placed. Complicated by laryngeal edema post intubation now here for rehab and care. Resident seen by Tyrel bowers on 12/27/24 and rec trazadone 50mg PO qhs for symptoms of agitation/anxiety. She reports she is sleeping better today. On exam, She is concerned about her thrush. Nystatin course has finished and although improved still has thick white yellow thrush on entire tongue. She is doing much better and participating in activities and visits with family lately. Will ordered increased thrush regimen today. Jessica Taylor NP [address] [facility], [address], [place], [address] , [employer] 12/30/2024 13:41:35 025 text/ht ml Pt is seen today for an acute rounding visit. PMH: carotid artery stenosis, hld, htn, chf, anemia, gerd, bipolar dx, copd On exam, pt is seen sitting up in bed in NAD. Lungs CTA. Recently on 01/01 Renita was evaluated by speech therapy and she was updated to PO puree diet and honey thicken fluids. She reports doing well. She was seen by pain management and rec increasing gabapentin to 200 mg po tid. She requests muscle rub cream and reports it works will add tid as requested. Resident seen by [place] [employer] [facility] on 12/27/24 and rec trazadone 50mg PO qhs for symptoms of agitation/anxiety. She reports she is still not sleeping well partially due to urinating all night but requests something for sleep. Will increase trazodone to 75 mg po qhs. note: Renita is a 54 yo female admit from hospital who underwent right carotid endarterectomy on November 22, 2024. Suffered unplanned carotid dissection and CVA with resultant left hemiplegia and dysphagia requiring patient to be NPO with g-tube placed. Complicated by laryngeal edema post intubation now here for rehab and care. Pt is seen today for an acute visit sp fall today. PMH: carotid artery stenosis, hld, htn, chf, anemia, gerd, bipolar dx, copd Renita is a 54 yo female admit from hospital who underwent right carotid endarterectomy on November 22, 2024. Suffered unplanned carotid dissection and CVA with resultant left hemiplegia and dysphagia requiring patient to be NPO with g-tube placed. Complicated by laryngeal edema post intubation now here for rehab and care. Resident seen by [facility] on 12/27/24 and rec trazadone 50mg PO qhs for symptoms of agitation/anxiety. She reports she is sleeping better today. On exam, She is concerned about her thrush. Nystatin course has finished and although improved still has thick white yellow thrush on entire tongue. She is doing much better and participating in activities and visits with family lately. Will ordered increased thrush regimen today. Jessica Taylor NP [address] [facility], [address], [place], [address] , [employer] 01/03/2025 08:48:27 OBGyn Episode No OBEpisode recorded.
--- OUTSIDE RECORDS SUMMARY | 2025-01-04 15:27 | XMS_ITS | Clinical Summary ---
Author Organization [address] [facility] Address [address] [place] [address] Phone Care Team Providers Care Portfolio Analyst Name Role Phone Tara Paniagua RN Primary Care Provider [phone] Encounters Date Type Department Care Team Description 12/28/2024 Lab Requisition [facility] Lab [address] [place] [id number] Benjamin Kim MD Heart failure, unspecified (CMS/HCC) 12/10/2024 Lab Requisition [facility] Lab [address] [place] [id number] Benjamin Kim MD Essential (primary) hypertension from Last 3 Months Surgical History Surgery Date Site/Laterality Comments TUBAL LIGATION PROCEDURE: HISTORICAL TUBAL LIGATION BUNIONECTOMY PROCEDURE: NV CORRJ HLX VLGS BNCTY SESMDC W/DOUBLE OSTEOTOMY [...] Recorded Sex Assigned at Not on file Legal Sex Female 4:38 AM EST Gender Identity Not on file Sexual Orientation Not on file Obstetrics History Plan of Treatment Health Maintenance Due Date Last Done Comments Breast Cancer Screening 1972 Colorectal Cancer Screening: Colonoscopy 09/29/2022 Hepatitis C Screening 09/29/2022 Medicare Annual Wellness Visit 09/29/2022 Social Influencers of Health Screening 09/29/2022 Depression Screening 11/17/2024 11/17/2023 Hypertension/CHF/CAD Annual BMP Blood Test 12/29/2025 12/29/2024, 12/10/2024, 11/01/2024, Additional history exists Cervical Cancer Screening: Pap Smear 02/19/2027 02/20/2024 Cholesterol Screening (Lipid Panel) 03/29/2027 03/29/2022 DTaP,Tdap,and Td Vaccines (3 - Td or Tdap) 01/20/2034 01/21/2024, 12/07/2013 HIV Screening Completed 05/09/2022 Zoster Vaccines Completed 09/23/2022, 2022 Pneumococcal Vaccine: 50+ Years Completed 11/17/2023, 10/17/2021 Pneumococcal Vaccine: Pediatrics (0 to 5 Years) and At-Risk Patients (6 to 64 Years) Completed 11/17/2023, 10/17/2021 Hepatitis A Vaccines Completed 06/23/2024, 11/17/19 COVID-19 Vaccine Completed 07/19/2024, , 07/30/2022, Additional [...] patient's age to complete this topic Meningococcal B Vacine Aged Out No lo nger eligible based on patient's age to complete this topic RSV Immunization Patients Under 20 months Aged Out No longer eligible based on patient's age to complete this topic Varicella Vaccines Aged Out No longer eligible based on patient's age to complete this topic Procedures Procedure Name Priority Date/Time Associated Diagnosis Comments BASIC METABOLIC PANEL Routine 12/29/2024 7:42 AM EST Heart failure, unspecified (CMS/HCC) COMPLETE BLOOD COUNT Routine 12/29/2024 7:42 AM EST Heart failure, unspecified (CMS/HCC) BASIC METABOLIC PANEL Routine 12/10/2024 7:30 AM EST Essential (primary) hypertension COMPLETE BLOOD COUNT Routine 12/10/2024 7:30 AM EST Essential (primary) hypertension from Last 3 Months Results * (ABNORMAL) Complete blood count (12/29/2024 7:42 AM EST) Only the most recent of2 resultswithin the time period is included. WBC 5.8 4.8 - 10.8 K/mcL LAB HEMETOLOGY METHOD 12/29/2024 11:32 AM [facility] RBC 3.90 3.80 - 4.80 M/mcL LAB HEMETOLOGY METHOD 12/29/2024 11:32 AM [facility] Hemoglobin 11.2(L) 11.5 - 16.0 g/dL LAB HEMETOLOGY METHOD 12/29/2024 11:32 AM [facility] Hematocrit 36.0 35.0 - 47.0 % LAB HEMETOLOGY METHOD 12/29/2024 11:32 AM [facility] MCV 91.8 79.0 - 98.0 FL LAB HEMETOLOGY METHOD 12/29/2024 11:32 AM [facility] MCH 28.6 27.0 - 32.0 pcg LAB HEMETOLOGY METHOD 12/29/2024 11:32 AM [facility] MCHC 31.1(L) 32.0 - 37.0 g/dL LAB HEMETOLOGY METHOD 12/29/2024 11:32 AM EST [facility] RDW 14.1 11.0 - 15.0 % LAB HEMETOLOGY METHOD 12/29/2024 11:32 AM [facility] Platelets 282 130 - 400 K/mcL LAB HEMETOLOGY METHOD 12/29/2024 11:32 AM [facility] MPV 10.1 7.0 - 11.0 FL LAB HEMETOLOGY METHOD 12/29/2024 11:32 AM [facility] NRBC 0.0 <1.0 % LAB HEMETOLOGY METHOD 12/29/2024 11:32 AM [facility] LAB NRBC Absolute 0.00 <0.10 K/mcL LAB HEMETOLOGY METHOD 12/29/2024 11:32 AM [facility] Blood Venous blood specimen / Unknown Venipuncture / Unknown 12/29/2024 7:42 AM EST 12/29/2024 11:02 AM EST us Benjamin Kim MD LAB BLOOD ORDERABLES Final Resul t [facility] [address] [place] [address], * (ABNORMAL) Basic metabolic panel (12/29/2024 7:42 AM EST) Only the most recent of2 resultswithin the time period is included. Sodium 143 133 - 145 mmol/L LAB CHEMISTRY METHOD 12/29/2024 3:20 PM [facility] Potassium 4.2 3.5 - 5.5 mmol/L LAB CHEMISTRY METHOD 12/29/2024 3:20 PM [facility] Chloride 107 96 - 110 mmol/L LAB CHEMISTRY METHOD 12/29/2024 3:20 PM [facility] CO2 30 21 - 32 mmol/L LAB CHEMISTRY METHOD 12/29/2024 3:20 PM [facility] Anion Gap 6 3 - 11 LAB CHEMISTRY METHOD 12/29/2024 3:20 PM [facility] Glucose 114(H) 70 - 100 mg/dL LAB CHEMISTRY METHOD 12/29/2024 3:20 PM [facility] BUN 37(H) 5 - 25 mg/dL LAB CHEMISTRY METHOD 12/29/2024 3:20 PM [facility] Creatinine 1.03 0.50 - 1.10 mg/dL LAB CHEMISTRY METHOD 12/29/2024 3:20 PM [facility] eGFR 66 >=60 mL/min/1. 73m2 LAB CHEMISTRY METHOD 12/29/2024 3:20 PM [facility] Comment:Calculation based on the??Chronic Kidney Disease Epidemiology Collaboration (CKD-EPI) equation refit??without adjustment for race. BUN/Creatinine Ratio 35.9 LAB CHEMISTRY METHOD 12/29/2024 3:20 PM [facility] Calcium 9.7 8.5 - 10.5 mg/dL LAB CHEMISTRY METHOD 12/29/2024 3:20 PM [facility] Blood Venous blood specimen / Unknown Venipuncture / Unknown 12/29/2024 7:42 AM EST 12/29/2024 11:02 AM EST us Benjamin Kim MD LAB BLOOD ORDERABLES Final Resul t [facility] [address] [place] [address], [place] [phone] from Last 3 Months Insurance [facility] MEDICARE Member Subscriber Plan / Payer (Ef fective 2023-Present) Name:Renita Brandon Relation to Subscriber:Self Name:Renita Brandon Payer ID:[id number] Group ID:[id number] Type:Not on file Address: [place] [address] [address] [id number] Advance Directives Documents on File Type Date Recorded 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
--- OUTSIDE RECORDS SUMMARY | 2025-01-04 15:27 | XMS_ITS | Encounter Summary ---
Author Organization [employer] Address [address] [place] [address] Care Team Providers Care Steam Generating Powerplant Mechanic Name Role Phone Hilda Butt MD Primary Care Provider [phone] Reason for Visit * Reason Onset Date Comments Med Life Line 08/06/2023 Encounter Details Date Type Department Care Team ([facility] Contact Info) Description 08/06/2023 Telephone [facility] MEDICINE [address] [place], [place] [phone] Hilda Butt MD [address] [place], [place] [phone] Med Life Line Social History Tobacco Use [...] Telephone Encounter - Neda Jimenes - 08/11/2023 10:50 AM EDT TALKED TO PATIENT TODAY WILL SEND RX TO [facility]. [facility] DO[facility] NOT ACCEPT [facility]. * Telephone Encounter - Ashley Sutton - 08/06/2023 1:10 PM EDT Tc from pt requesting status on paperwork for Med Life line machine due to her medical conditions. Task on 07/31/2023 Please contact pt at [phone] Hebrew Speaker documented in this encounter Plan of Treatment Not on file documented as of this encounter Visit Diagnoses Not on filedocumented in this encounter Additional Health Concerns Assessment Noted Time PHQ-9 Depression Total Score: 6 06/12/20 23 9:18 AM EDT documented as of this encounter Care Teams Steam Generating Powerplant Mechanic Relationship Specialty Start Date End Date Hilda Butt MD [address] [place] [address] PCP - General Family Medicine 06/20/22 documented as of this encounter
--- OUTSIDE RECORDS SUMMARY | 2025-01-04 15:27 | XMS_ITS | Encounter Summary ---
Author Organization [email or web address] Address [address] [place] [address] Care Team Providers Care Display Associate Name Role Phone Hilda Butt MD Primary Care Provider [phone] Reason for Visit * Reason Onset Date Comments Med Refill 12/03/2023 Encounter Details Date Type Department Care Team ([facility] st Contact Info) Description 12/03/2023 Refill [facility] MEDICINE [address] [place], [place] [phone] Hilda Butt MD [address] [place], [place] [phone] Social History Tobacco Use Types Packs/Day Years [...] documented as of this encounter Care Teams Display Associate Relationship Specialty Start Date End Date Hilda Butt MD [address] [place] [id number] PCP - General Family Medicine 06/20/22 documented as of this encounter
--- OUTSIDE RECORDS SUMMARY | 2025-01-04 15:27 | XMS_ITS | Encounter Summary ---
Author Organization [employer] Address [address] [place] [address] Care Team Providers Care Regional Education Manager Name Role Phone Hilda Butt MD Primary Care Provider [phone] Encounter Details Date Type Department Care Team ([facility] st Contact Info) Description 10/15/2022 Orders Only [facility] [address] [place], [place] [phone] Apple Stringer LPN Social History Tobacco Use [...] on filedocumented in this encounter Care Teams Regional Education Manager Relationship Specialty Start Date End Date Hidla Butt MD [address] [place] [address] PCP - General Family Medicine 06/20/22 documented as of this encounter
--- OUTSIDE RECORDS SUMMARY | 2025-01-04 15:27 | XMS_ITS | Encounter Summary ---
Author Organization [employer] Address [address] [place] [address] Care Team Providers Care Diver Tender Name Role Phone Hilda Butt MD Primary Care Provider [phone] Reason for Visit * Reason Comments Med Refill Encounter Details Date Type Department Care Team ([facility] st Contact Info) Description 07/28/2024 Refill [facility] MEDICINE [address] [place], [place] [phone] Hilda Butt MD [address] [place], [place] [phone] Social History Tobacco Use Types Packs/Day Years [...] documented as of this encounter Care Teams Diver Tender Relationship Specialty Start Date End Date Hilda Butt MD [address] [place] [address] PCP - General Family Medicine 06/20/22 documented as of this encounter
--- OUTSIDE RECORDS SUMMARY | 2025-01-04 15:27 | XMS_ITS | Encounter Summary ---
Author Organization [employer] Address [address]t [place] [address] Care Team Providers Care Light Technician Name Role Phone Hilda Butt MD Primary Care Provider [phone] Reason for Visit * Reason Onset Date Comments No Show 12/31/2024 Encounter Details Date Type Department Care Team ([facility] Contact Info) Description 12/31/2024 Telephone [facility] MEDICINE [address] [place], [place] [phone] Hilda Butt MD [address] [place], [place] [phone] No Show Social History Tobacco Use Types Packs/Day Years [...] encounter Miscellaneous Notes * Telephone Encounter - Stephany Awan - 12/31/2024 11:41 AM EST Pt no showed to appt on 12/31/24 documented in this encounter Plan of Treatment [...] documented as of this encounter Care Teams Light Technician Relationship Specialty Start Date End Date Hilda Butt MD [address] [place] [address] PCP - General Family Medicine 06/20/22 documented as of this encounter
--- OUTSIDE RECORDS SUMMARY | 2025-01-04 15:27 | XMS_ITS | Encounter Summary ---
Author Organization [employer] Address [address] [place] [address] Care Team Providers Care Mail Room Clerk Name Role Phone Hilda Butt MD Primary Care Provider [phone] Reason for Visit * Reason Comments Med Refill Encounter Details Date Type Department Care Team ([facility] st Contact Info) Description 12/08/2024 Refill [facility] MEDICINE [address] [place], [place] [phone] Hilda Butt MD [address] [place], [place] [phone] Vitamin D deficiency Social History Tobacco Use [...] documented as of this encounter Care Teams Mail Room Clerk Relationship Specialty Start Date End Date Hilda Butt MD [address] [place] [address] PCP - General Family Medicine 06/20/22 documented as of this encounter
--- OUTSIDE RECORDS SUMMARY | 2025-01-04 15:27 | XMS_ITS | Encounter Summary ---
Author Organization [employer] Address [address] [place] [address] Care Team Providers Care Calender Feeder Name Role Phone Tara Paniagua RN Primary Care Provider [phone] Encounter Details Date Type Department Care Team (Late st Contact Info) Description 12/28/2024 Lab Requisition [facility] [address] [facility] [place] [address] Benjamin Kim MD [address] [facility] [address] [place], [address] Heart failure, unspecified (CMS/HCC) Social History Tobacco Use Types Packs/Day [...] on file Sexual Orientation Not on file documented as of this encounter Plan of Treatment Not on file documented as of this encounter Procedures Procedure Name Priority Date/Time Associated Diagnosis Comments COMPLETE BLOOD COUNT Routine 12/29/2024 7:42 AM EST Heart failure, unspecified (CMS/HCC) BASIC METABOLIC PANEL Routine 12/29/2024 7:42 AM EST Heart failure, unspecified (CMS/HCC) documented in this encounter Results * (ABNORMAL) Basic metabolic panel (12/29/2024 7:42 AM EST) Sodium 143 133 - 145 mmol/L LAB CHEMISTRY METHOD 12/29/2024 3:20 PM [facility] Potassium 4.2 3.5 - 5.5 mmol/L LAB CHEMISTRY METHOD 12/29/2024 3:20 PM [facility] Chloride 107 96 - 110 mmol/L LAB CHEMISTRY METHOD 12/29/2024 3:20 PM [facility] CO2 30 21 - 32 mmol/L LAB CHEMISTRY METHOD 12/29/2024 3:20 PM [facility] Anion Gap 6 3 - 11 LAB CHEMISTRY METHOD 12/29/2024 3:20 PM [facility] Glucose 114(H) 70 - 100 mg/dL LAB CHEMISTRY METHOD 12/29/2024 3:20 PM [facility] BUN 37(H) 5 - 25 mg/dL LAB CHEMISTRY METHOD 12/29/2024 3:20 PM [facility] Creatinine 1.03 0.50 - 1.10 mg/dL LAB CHEMISTRY METHOD 12/29/2024 3:20 PM [facility] LAB eGFR 66 >=60 mL/min/1. 73m2 LAB CHEMISTRY METHOD 12/29/2024 3:20 PM [facility] LAB Comment:Calculation based on the??Chronic Kidney Disease Epidemiology Collaboration (CKD-EPI) equation refit??without adjustment for race. BUN/Creatinine Ratio 35.9 LAB CHEMISTRY METHOD 12/29/2024 3:20 PM [facility] Calcium 9.7 8.5 - 10.5 mg/dL LAB CHEMISTRY METHOD 12/29/2024 3:20 PM [facility] Blood Venous blood specimen / Unknown Venipuncture / Unknown 12/29/2024 7:42 AM EST 12/29/2024 11:02 AM EST Benjamin Kim MD LAB BLOOD ORDERABLES Final Resul t [facility] [address] [place] [address], * (ABNORMAL) Complete blood count (12/29/2024 7:42 AM EST) WBC 5.8 4.8 - 10.8 K/mcL LAB HEMETOLOGY METHOD 12/29/2024 11:32 AM [facility] RBC 3.90 3.80 - 4.80 M/mcL LAB HEMETOLOGY METHOD 12/29/2024 11:32 AM [facility] Hemoglobin 11.2(L) 11.5 - 16.0 g/dL LAB HEMETOLOGY METHOD 12/29/2024 11:32 AM [facility] Hematocrit 36.0 35.0 - 47.0 % LAB HEMETOLOGY METHOD 12/29/2024 11:32 AM [facility] MCV 91.8 79.0 - 98.0 FL LAB HEMETOLOGY METHOD 12/29/2024 11:32 AM [facility] MCH 28.6 27.0 - 32.0 pcg LAB HEMETOLOGY METHOD 12/29/2024 11:32 AM [facility] MCHC 31.1(L) 32.0 - 37.0 g/dL LAB HEMETOLOGY METHOD 12/29/2024 11:32 AM EST [facility] RDW 14.1 11.0 - 15.0 % LAB HEMETOLOGY METHOD 12/29/2024 11:32 AM [facility] Platelets 282 130 - 400 K/mcL LAB HEMETOLOGY METHOD 12/29/2024 11:32 AM [facility] MPV 10.1 7.0 - 11.0 FL LAB HEMETOLOGY METHOD 12/29/2024 11:32 AM [facility] LAB NRBC 0.0 <1.0 % LAB HEMETOLOGY METHOD 12/29/2024 11:32 AM EST [facility] NRBC Absolute 0.00 <0.10 K/mcL LAB HEMETOLOGY METHOD 12/29/2024 11:32 AM EST [facility] Blood Venous blood specimen / Unknown Venipuncture / Unknown 12/29/2024 7:42 AM EST 12/29/2024 11:02 AM EST us Benjamin Kim MD LAB BLOOD ORDERABLES Final Resul t 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 [address] [place] [address], documented in this encounter Visit Diagnoses Diagnosis Heart failure, unspecified (CMS/HCC) Heart failure, unspecified documented in this encounter Care Teams Calender Feeder Relationship Specialty Start Date End Date Tara Paniagua RN [address] [place] [phone] PCP - General 07/24/22 documented as of this encounter
--- OUTSIDE RECORDS SUMMARY | 2025-01-04 15:27 | XMS_ITS | Encounter Summary ---
Author Organization [employer] Address [address] [facility] [address] 7t [place] [address] Care Team Providers Care Cd Technician Name Role Phone Hilda Butt MD Primary Care Provider [phone] Reason for Visit * Reason Onset Date Comments Med Refill 06/24/2024 Encounter Details Date Type Department Care Team ([facility] st Contact Info) Description 06/24/2024 Refill [facility] MED[facility]INE [address] [place], [place] [phone] Hilda Butt MD [address] [place], [place] [phone] Social History Tobacco Use Types Packs/Day Years [...] documented as of this encounter Care Teams Cd Technician Relationship Specialty Start Date End Date Hilda Butt MD [address] [place] [address] PCP - General Family Medicine 06/20/22 documented as of this encounter
--- OUTSIDE RECORDS SUMMARY | 2025-01-04 15:27 | XMS_ITS | Encounter Summary ---
Author Organization [employer] Address [address] 7[address] [place] [address] Care Team Providers Care Electronic Publisher Name Role Phone Hilda Butt MD Primary Care Provider [phone] Reason for Visit * Reason Onset Date Comments Med Refill 10/16/2023 Encounter Details Date Type Department Care Team ([facility] Contact Info) Description 10/16/2023 Refill [facility] 230 [place], [place] [phone] Anum Fox FNP Recurrent acute serous otitis [...] t he electric, gas, oil or water [employer] threatened to shut off services in your [...] documented as of this encounter Care Teams Electronic Publisher Relationship Specialty Start Date End Date Hilda Butt MD 230 [place] [address] PCP - General Family Medicine 06/20/22 documented as of this encounter
--- OUTSIDE RECORDS SUMMARY | 2025-01-04 15:27 | XMS_ITS | Encounter Summary ---
Author Organization [employer] Address [address] [facility] 7t [place] [address] Care Team Providers Care Dragline Mechanic Name Role Phone Hilda Butt MD Primary Care Provider Encounter Details Date Type Department Care Team ([facility] st Contact Info) Description 10/31/2022 Orders Only [facility] MEDICINE [address] [place], [place] [phone] Hilda Butt MD 230 [place], [place] [phone] Blurry vision (Primary Dx) Social History Tobacco [...] disturbances documented in this encounter Care Teams Dragline Mechanic Relationship Specialty Start Date End Date Hilda Butt MD [address] [place], [place] [phone] PCP - General Family Medicine 06/20/22 documented as of this encounter
--- OUTSIDE RECORDS SUMMARY | 2025-01-04 15:27 | XMS_ITS | Encounter Summary ---
Author Organization [email or web address] Address [address] [facility] [address] [place] [address] Care Team Providers Care Cementer Name Role Phone Hilda Butt MD Primary Care Provider [phone] Encounter Details Date Type Department Care Team ([facility] st Contact Info) Description 08/19/2023 Abstract [facility] MEDICINE [address] [place], [place] [phone] Hilda Butt MD 230 [place], [place] [phone] Social History Tobacco Use Types Packs/Day Years [...] documented as of this encounter Care Teams Cementer Relationship Specialty Start Date End Date Hilda Butt MD 230 [place] [address] PCP - General Family Medicine 06/20/22 documented as of this encounter
--- OUTSIDE RECORDS SUMMARY | 2025-01-04 15:27 | XMS_ITS | Encounter Summary ---
Author Organization [email or web address] Address [address] [facility] [address] [place] [address] Care Team Providers Care Lower School Music Teacher Name Role Phone Hilda Butt MD Primary Care Provider [phone] Reason for Visit * Reason Comments Med Refill Encounter Details Date Type Department Care Team ([facility] st Contact Info) Description 06/30/2024 Refill [facility] MED[facility]INE 230 [place], [place] [phone] Hilda Butt MD 230 [place], [place] [phone] Lower extremity edema Social History Tobacco Use [...] documented as of this encounter Care Teams Lower School Music Teacher Relationship Specialty Start Date End Date Hilda Butt MD [address] [place] [address] PCP - General Family Medicine 06/20/22 documented as of this encounter
--- OUTSIDE RECORDS SUMMARY | 2025-01-04 15:27 | XMS_ITS | Encounter Summary ---
Author Organization [employer] Address [address] [facility] [facility] [address] 7t [place] [address] Care Team Providers Care Statement Clerks Manager Name Role Phone Hilda Butt MD Primary Care Provider [phone] Encounter Details Date Type Department Care Team ([facility] st Contact Info) Description 11/20/2023 Abstract [facility] MEDICINE 230 [place], [place] [phone] Hilda Butt MD [address] [place], [place] [phone] Social History Tobacco Use Types Packs/Day Years [...] documented as of this encounter Care Teams Statement Clerks Manager Relationship Specialty Start Date End Date Hilda Butt MD [address] [place] [address] PCP - General Family Medicine 06/20/22 documented as of this encounter
--- OUTSIDE RECORDS SUMMARY | 2025-01-04 15:27 | XMS_ITS | Encounter Summary ---
Author Organization [employer] Address [address] [facility] 7t [place] [address] Care Team Providers Care Auto Body Repair Teacher Name Role Phone Hilda Arshad MD Primary Care Provider [phone] Reason for Visit * Reason Onset Date Comments medical supplies 08/08/2023 Encounter Details Date Type Department Care Team ([facility] Contact Info) Description 08/08/[address] [facility] MEDICINE [address] [place], [place] [phone] Hilda Arshad MD [address] [place], [place] [phone] medical supplies Social History Tobacco Use Types [...] AND LINECARE WICH WILL BE SENT TO NOTCHED BLADE LOADER BARBY AT [facility] BECAUSE [facility] DOES NOT ACCEPT [facility]. * Telephone Encounter - Adelaida Gastelum - [...] documented as of this encounter Care Teams Auto Body Repair Teacher Relationship Specialty Start Date End Date Hilda Arshad MD [address] [place] [address] PCP - General Family Medicine 06/20/22 documented as of this encounter
--- OUTSIDE RECORDS SUMMARY | 2025-01-04 15:27 | XMS_ITS | Continuity of Care Document ---
Author Organization [facility] Address [address] [place] [address] Care Team Providers Care Human Geography Instructor Name Role Phone LINDA GOFF - 4TH [...] and Address Organization Details Recorded Time Dysphagia 89885693 Active 2024 Jessica [place] NP [address] , [address], [place], [address], [facility] [employer] 5 15:19:53 Left hemiplegia 544207753 Active 2024 Jessica [place] NP [address] , [address], [place], [address], [facility] [employer] 5 15:20:52 Cerebrovascula r accident 710808107 Active 2024 Jessica [place] NP [address], [address], [place], [address], [facility] [employer] 5 15:20:58 Carotid artery stenosis 68538267 Active 2024 Jessica [place] NP [address], [address], [place], [address], [facility] [employer] 5 15:22:09 Congestive heart failure 16044777 Active 2024 Jessica [place] NP [address], [address], [place], [address], [place] [facility] 5 15:22:17 Chronic obstructive pulmonary disease 21871360 Active 2024 Jessica [place] NP [address], [address], [place], [address], [place] [facility] 5 15:22:23 Automatic implantable cardiac defibrillator in situ 302087791 Active 2024 Jessica [place] NP [address], [address], [place], [address], [place] [facility] 5 15:22:38 Bipolar disorder 34092556 Active 2024 Jessica [place] NP [address], [place], [address], [facility] 5 15:22:46 Hypoxia 597799912 Active 2024 Jessica [place] NP [address], [address], [place], [address], [place] [facility] 5 15:24:15 Hypertensive disorder 83936077 Active 2024 Jessica [place] NP [address], [address], [place], [address], [place] [facility] 5 15:24:34 Hyperlipidemia 93279031 Active 2024 Jessica [place] NP [address], [address], [place], [address], [facility] 5 15:24:44 Anemia 312024640 Active 2024 Jessica [place] NP [address], [address], [place], [address], [facility] 5 15:40:32 Gastroesophage al reflux disease 906887324 Active 2024 Jessica [place] NP [address], [place], [address], [place] [facility] 5 15:45:51 Problem Notes None recorded. Medical Equipment None Reported. Allergies Allergen ID Allergen Name Allergen Category Reaction Reaction Severity Criticality Documentation Date Start Date Code Code System Note Provider Name and Address Organization Details Recorded Time 86678 lisinopri l medicatio n other Not available unabletoasse ss 12/09/2024 65055 RxNorm unkno wn Not Available Not Available Not Available Medications Not known to be on any medication Vitals Date Recorded Body weight Heart rate Respiratory rate Systolic blood pressure Diastolic blood pressure Provider Name and Address Organization Details Last Updated DateTime 12/13/2024 71904.4 5 g 78 /min 20 /min 142 mm[Hg] 80 mm[Hg] Benjamin Kim MD [address] [facility], [address], [place], [address], [facility] 08:53:03 Social History Question Answer Notes LastModified by Organizat ion Details LastModified Time Tobacco Smoking Status Former Smoker Jessica [place] NP [address] [facility], [address], [place], [address], [facility] 12/09/2024 15:31:49 Do You Have An Advance [...] Immunizations Vaccine Type Date Status Note Provider Diego ramirez and Address Organization Details Recorded Time Hep B, unspecified formulation 4 completed Rossi Celaya null, [facility] 12/09/2024 15:28:00 Hep B, unspecified formulation 4 completed Rossi Celaya null, [facility] 12/09/2024 15:28:09 Hep B, unspecified formulation 4 completed Rossi Celaya null, [facility] 12/09/2024 15:28:17 Tdap 4 completed Rossi Celaya null, [facility] 12/09/2024 15:29:05 Tdap 4 completed Rossi Celaya null, [facility] 12/09/2024 15:29:14 Pneumococcal conjugate PCV 13 4 [facility]24 15:29:28 pneumococcal polysaccharide PPV23 1 completed Rossi Celaya null, [facility] 12/09/2024 15:29:45 influenza, unspecified formulation 3 completed Rossi Celaya null, [facility] 12/09/2024 15:30:08 influenza, unspecified formulation 4 completed Rossi Celaya null, [facility] 12/09/2024 15:30:14 Hep A, unspecified formulation 4 completed Rossi Celaya null, [facility] 12/09/2024 15:30:29 Hep A, unspecified formulation 4 completed Rossi Celaya null, [facility] 12/09/2024 15:30:37 SARS-COV-2 (COVID-19) vaccine, UNSPECIFIED 1 completed Rossi Celaya null, [facility] 12/09/2024 15:31:01 SARS-COV-2 (COVID-19) vaccine, UNSPECIFIED 2 completed Rossi Celaya null, [facility] 12/09/2024 15:31:08 SARS-COV-2 (COVID-19) vaccine, UNSPECIFIED 3 completed Rossi Celaya null, [facility] 12/09/2024 15:31:17 SARS-COV-2 (COVID-19) vaccine, UNSPECIFIED 4 completed Rossi Celaya [facility] 12/09/2024 15:31:25 zoster, unspecified formulation 2 completed Rossi [facility] 12/09/2024 15:31:41 zoster, unspecified formulation 2 [facility]2024 15:31:51 Past Encounters Encounter ID Performer Location Encounter Start Date Encounter Closed Date Diagnosis/Indication Diagnosis SNOMED-CT Code Diagnosis ICD10 Code Diagnosis Note [id number] Jessica [place] NP [address] [place] [address] [address] 12/09/2024 15:03:43 12/10/2024 13:27:31 Carotid artery stenosis 31812401 I65.29 sp right carotid endarterec jaida, performed on 11/22/24. She suffered a right carotid dissection , hematoma, as well as a CVA, which left her with left sided hemiplegia and dysphagia now on tube feedsmonit or s/s of infectionv itals qd x 2 weeksbmp and cbc weekly x 3 weeks Cerebrovas cular accident 202759693 I63.9 sp right carotid endarterec jaida, performed on 11/22/24. She suffered a right carotid dissection , hematoma, as well as a CVA, which left her with left sided hemiplegia and dysphagia now on tube feedsPT OT eval and treatsuppo rtive careturn and position freqmonito r Left hemiplegia 10114076 8 G81.90 see above Dysphagia 39018281 R13.1 0 NPOmeds through g tubegoal:J evity [...] gtube here.kat monk to followmoni tor Hypoxia 502377277 G47.34 Pt with intubation rt hypoxia now resolvedmo nitor for sequelae Congestive heart failure 15598818 I50.9 chffurosem rashad 20 mg po qdmonitor bmp and s/s of Chronic ob structive pulmonary disease 46981794 J44.9 hx montelukas t 10 mg po qhscetiriz ine 10 mg po qd prnalbuter ol inhaler 2 inh q 6 hrs prn sobmonitor Automatic implantable cardiac defibrillator in situ 202203362 Z95.810 has cad with cath in past with LBBB and states pacemaker and defibrilla tor in hxmonitor Hypertensive disorder 38 719899 I10 amiodarone 400 mg po bid x 7days, then 200 mg po qd for 21 days, then stopentres to 24-36 po bidmetopro lol succinate 50 mg po qdspirolac tone 25 mg po qdmonitor Anemia 103888467 D64.9 hx offerrous sulfate 325 mgpo qd with vit c qdmonitor cbc and for s/s of bleeding Hyperlipidemia 67435187 E78.5 asa 81 mg qdatorvast atin 80 mg qhsentrest o 24-36 po bidmonitor Bipolar disorder 4818909 4 F31.9 hx ofsertrali ne 50 mg qdmonitor [id number] Benjamin Kim MD [address] [place] [address] [address] 12/13/2024 08:52:27 12/14/2024 15:40:23 Unsteady when walking 87998756 R26.89 PT OT eval and treatto determine baseline Carotid ar jonas stenosis 81958442 I65.21 see HPIright carotid endarterec jaida last OctoberSu fered carotid dissection and CVA with resultant left hemiplegia and dysphagia requiring patient to be NPO with g-tube placedlipi tor 80 mg qdasa 81 mg qdupdate surgery with concerns Cerebrovas cular accident 424708935 I63.031 resultant left hemiplegia and dysphagiaP T OT eval and treatmonit or for improvemen t in function Left hemiplegia 63318656 8 G81.04 see above Dysphagia 59270118 I69.3 91 currently NPOg-tube dependents peech and dietary to followcont inue tube feeds Hypoxia 601922996 G47.34 Pt with intubation rt hypoxia now resolvedmo nitor for sequelae Congestive heart failure 14716341 I50.22 lasix 20 mg qdentresto 24-26 mg bidmonitor respirator y and fluid status Chronic ob structive pulmonary disease 12676845 J41.1 carrying dxcontinue out patient medsmonito r respirator y status and albuterol utilizatio n Automatic implantable cardiac defibrillator in situ 670270416 Z95.810 currently maintained onamiodaro ne taper, hx LBBBknown cad continued on asa, statin, and beta yamini Hypertensive disorder 38 433153 I10 entresto 24-36 po bidmetopro lol 50 mg po qdlasix 20 mg qdspirolac tone 25 mg po qdmonitor bp and need to titrate Anemia 124334626 D50.8 monitor cbciron studies prncontinu e supplement s Bipolar disorder 6894135 4 F31.89 carrying dx added to PMHzoloft 50 mg qdmonitor sxpsych eval prn Coronary arteriosclerosis 95422185 I25.10 lipitor 80 mg qdasa 81 mg qdmetoprol ol 50 mg qdmonitor sx Health Concerns Section Related Observation LastModified by Organization Detai ls LastModified Time None Recorded Concern Status LastModified by Organization Details LastModified Time None Recorded Payers Encounter Date Sequence Insurance Name Policy Number Policy Stanford Covered Member ID Stanford Member ID Guarantor Name 12/13/2024 1 [facility] - DOS ON OR AFTER 2023 - MEDICARE ADVANTAGE [place] (MEDICARE REPLACEMENT/ADV ANTAGE - PPO) Renita Brandon [id number] Renita Brandon Notes Date Note Type Note Provider Name and Address Organization Details Recorded Time 025 text/ht ml Patient is a 54 yo female admit from hospital who underwent right carotid endarterectomy last October. 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 Complicated by laryngeal edema post intubation. PMH significant forcarotid artery stenosishldhtnchfanemiagerdbipolar dxcopd admit to facility for continued care and therapy eval and treat Benjamin Kim MD [address] [facility], [address], [place], [address] , [place] [facility] 12/13/2024 09:22:47 OBGyn Episode No OBEpisode recorded.
--- OUTSIDE RECORDS SUMMARY | 2025-01-04 15:27 | XMS_ITS | Encounter Summary ---
Author Organization [employer] Address [address] 7t [place] [address] Care Team Providers Care Explosive Operator Bomb Name Role Phone Hilda Butt MD Primary Care Provider [phone] Encounter Details Date Type Department Care Team ([facility] st Contact Info) Description 08/18/2023 Abstract [facility] MEDICINE [address] [place], [place] [phone] Hilda Butt MD [address] [place], [place] [phone] Social History Tobacco Use Types Packs/Day Years [...] documented as of this encounter Care Teams Explosive Operator Bomb Relationship Specialty Start Date End Date Hilda Butt MD 230 [place] [address] PCP - General Family Medicine 06/20/22 documented as of this encounter
--- OUTSIDE RECORDS SUMMARY | 2025-01-04 15:27 | XMS_ITS | Encounter Summary ---
Author Organization [employer] Address [address] 7[address] [place] [address] Care Team Providers Care Car Icer Name Role Phone Hilda Butt MD Primary Care Provider [phone] Reason for Visit * Reason Onset Date Comments Med Refill 12/03/2023 Encounter Details Date Type Department Care Team ([facility] st Contact Info) Description 12/03/2023 Refill [facility] MEDICINE [address] [place], [place] [phone] Hilda Butt MD 230 [place], [place] [phone] Low back pain at multiple sites Social [...] documented as of this encounter Care Teams Car Icer Relationship Specialty Start Date End Date Hilda Butt MD [address] [place] [address] PCP - General Family Medicine 06/20/22 documented as of this encounter
--- OUTSIDE RECORDS SUMMARY | 2025-01-04 15:27 | XMS_ITS | Encounter Summary ---
Author Organization [employer] Address [address] [facility] [facility] [address] 7t [place] [address] Care Team Providers Care Assembler Corncob Pipes Name Role Phone Hilda Butt MD Primary Care Provider [phone] Reason for Visit * Reason Onset Date Comments Med Refill 12/04/2023 Encounter Details Date Type Department Care Team ([facility] st Contact Info) Description 12/04/2023 Refill [facility] MEDICINE 230 [place], [place] [phone] Hilda Butt MD 230 [place], [place] [phone] Itchy skin of anus and genitals Social [...] documented as of this encounter Care Teams Assembler Corncob Pipes Relationship Specialty Start Date End Date Hilda Butt MD [address] [place] [address] PCP - General Family Medicine 06/20/22 documented as of this encounter
--- OUTSIDE RECORDS SUMMARY | 2025-01-04 15:27 | XMS_ITS | Encounter Summary ---
Author Organization [employer] Address [address] [place] [address] Care Team Providers Care Target Worker Name Role Phone Taar Paniagua RN Primary Care Provider [phone] Encounter Details Date Type Department Care Team (Late st Contact Info) Description 12/10/2024 Lab Requisition [facility] [address] [facility] [address] Benjamin Kim MD [address] [facility] [address] [place], [address] Essential (primary) hypertension Social History Tobacco Use Types Packs/Day Years [...] Associated Diagnosis Comments COMPLETE BLOOD COUNT Routine 12/10/2024 7:30 AM EST Essential (primary) hypertension BASIC METABOLIC PANEL Routine 12/10/2024 7:30 AM EST Essential (primary) hypertension documented in this encounter Results * (ABNORMAL) Basic metabolic panel (12/10/2024 7:30 AM EST) Sodium 139 133 - 145 mmol/L LAB CHEMISTRY METHOD 12/10/2024 11:46 AM [facility] Potassium 4.3 3.5 - 5.5 mmol/L LAB CHEMISTRY METHOD 12/10/2024 11:46 AM [facility] Chloride 104 96 - 110 mmol/L LAB CHEMISTRY METHOD 12/10/2024 11:46 AM [facility] CO2 29 21 - 32 mmol/L LAB CHEMISTRY METHOD 12/10/2024 11:46 AM [facility] Anion Gap 6 3 - 11 LAB CHEMISTRY METHOD 12/10/2024 11:46 AM [facility] Glucose 122(H) 70 - 100 mg/dL LAB CHEMISTRY METHOD 12/10/2024 11:46 AM [facility] BUN 13 5 - 25 mg/dL LAB CHEMISTRY METHOD 12/10/2024 11:46 AM [facility] Creatinine 0.56 0.50 - 1.10 mg/dL LAB CHEMISTRY METHOD 12/10/2024 11:46 AM [facility] eGFR 110 >=60 mL/min/1. 73m2 LAB CHEMISTRY METHOD 12/10/2024 11:46 AM [facility] Comment:Calculation based on the??Chronic Kidney Disease Epidemiology Collaboration (CKD-EPI) equation refit??without adjustment for race. BUN/Creatinine Ratio 23.2 LAB CHEMISTRY METHOD 12/10/2024 11:46 AM [facility] Calcium 9.7 8.5 - 10.5 mg/dL LAB CHEMISTRY METHOD 12/10/2024 11:46 AM [facility] Blood Venous blood specimen / Unknown Venipuncture / Unknown 12/10/2024 7:30 AM EST 12/10/2024 10:55 AM EST us Benjamin Kim MD LAB BLOOD ORDERABLES Final Resul t [facility] [address] [place] [address], * (ABNORMAL) Complete blood count (12/10/2024 7:30 AM EST) [facility] WBC 6.1 4.8 - 10.8 K/mcL LAB HEMETOLOGY METHOD 12/10/2024 11:22 AM EST [facility] RBC 3.70(L) 3.80 - 4.80 M/mcL LAB HEMETOLOGY METHOD 12/10/2024 11:22 AM [facility] Hemoglobin 10.6(L) 11.5 - 16.0 g/dL LAB HEMETOLOGY METHOD 12/10/2024 11:22 AM [facility] Hematocrit 33.2(L) 35.0 - 47.0 % LAB HEMETOLOGY METHOD 12/10/2024 11:22 AM [facility] MCV 89.2 79.0 - 98.0 FL LAB HEMETOLOGY METHOD 12/10/2024 11:22 AM [facility] MCH 28.5 27.0 - 32.0 pcg LAB HEMETOLOGY METHOD 12/10/2024 11:22 AM [facility] MCHC 31.9(L) 32.0 - 37.0 g/dL LAB HEMETOLOGY METHOD 12/10/2024 11:22 AM [facility] RDW 13.9 11.0 - 15.0 % LAB HEMETOLOGY METHOD 12/10/2024 11:22 AM [facility] Platelets 396 130 - 400 K/mcL LAB HEMETOLOGY METHOD 12/10/2024 11:22 AM [facility] MPV 9.7 7.0 - 11.0 FL LAB HEMETOLOGY METHOD 12/10/2024 11:22 AM [facility] NRBC 0.0 <1.0 % LAB HEMETOLOGY METHOD 12/10/2024 11:22 AM EST [facility] NRBC Absolute 0.00 <0.10 K/mcL LAB HEMETOLOGY METHOD 12/10/2024 11:22 AM EST [facility] Blood Venous blood specimen / Unknown Venipuncture / Unknown 12/10/2024 7:30 AM EST 12/10/2024 10:55 AM EST us Benjamin Kim MD LAB BLOOD ORDERABLES Final Resul t [facility] [address] [place] [address], documented in this encounter Visit Diagnoses Diagnosis Essential (primary) hypertension Unspecified essential hypertension documented in this encounter Care Teams Target Worker Relationship Specialty Start Date End Date Tara Paniagua RN [address] [place] [phone] PCP - General 07/24/22 documented as of this encounter
--- OUTSIDE RECORDS SUMMARY | 2025-01-04 15:27 | XMS_ITS | Encounter Summary ---
Author Organization [employer] Address [address] 7t [place] [address] Care Team Providers Care Airplane Engineer Name Role Phone Hilda Butt MD Primary Care Provider [phone] Encounter Details Date Type Department Care Team ([facility] Contact Info) Description 10/30/2023 Telephone [facility] [address] [place], [place] [phone] Janine Mccarthy, RN [address] [place], [place] [phone] Social History Tobacco Use Types Packs/Day Years [...] t he electric, gas, oil or water [email or web address] threatened to shut off services in your [...] as of this encounter Care Teams Airplane Engineer Relationship Specialty Start Date End Date Hilda Butt MD [address] [place] [address] PCP - General Family Medicine 06/20/22 documented as of this encounter
--- OUTSIDE RECORDS SUMMARY | 2025-01-04 15:28 | XMS_ITS | Encounter Summary ---
Author Organization [employer] Address [address] 7t [place] [address] Care Team Providers Care Garage Laborer Name Role Phone Hilda Butt MD Primary Care Provider [phone] Encounter Details Date Type Department Care Team ([facility] st Contact Info) Description 07/02/2024 Orders Only [facility] 230 [place], [place] [phone] Hilda Butt MD 230 [place], [place] [phone] Subacute cough (Primary Dx) Social History Tobacco [...] documented as of this encounter Care Teams Garage Laborer Relationship Specialty Start Date End Date Hilda Butt MD [address] [place] [address] PCP - General Family Medicine 06/20/22 documented as of this encounter
== END 2025-01-04 13:26 | disposition home or self-care (01) ==
LOC: HO.HVS 12:53
PROVIDERS: PCP General Practice; Visit Provider Surgery Vascular Surgery
DX: I65.21 Occlusion and stenosis of right carotid artery (principal)
CPT/HCPCS: 99024

== ENCOUNTER → 2025-01-04 12:52 | Outpatient (BNVA) | payer OTHER, SELFPAY | PROVIDERS: PCP General Practice; Visit Provider Surgery Vascular Surgery | DX: I65.21 Occlusion and stenosis of right carotid artery (principal) | CPT/HCPCS: 99212 ==

== ENCOUNTER 2025-02-10 07:04 | Outpatient (REF) | payer OTHER, SELFPAY ==
--- NOTE | ~2025-02-10 | CT_ITS ---
CLINICAL HISTORY: R91.8 - Other nonspecific abnormal finding of lung field CT chest without contrast Comparison: 05/17/2024 Findings: The heart size is normal. The visualized thyroid and mediastinum are unremarkable. The lungs are clear. The visualized upper abdomen is unremarkable. The bones are intact. IMPRESSION: 1. Unremarkable chest CT. This document has been electronically signed by: Durga To MD on 02/11/2025 08:10:04
--- OUTSIDE RECORDS SUMMARY | 2025-02-10 07:07 | XMS_ITS | Encounter Summary ---
Author Organization [employer] Address [address] [facility] 7t [place] [address] Care Team Providers Care Volleyball Assembler Name Role Phone Hilda Butt MD Primary Care Provider [phone] Reason for Visit * Reason Comments Med Refill Encounter Details Date Type Department Care Team ([facility] st Contact Info) Description 02/03/2023 Refill [facility] MEDICINE 230 [place], [place] [phone] Hilda Butt MD 230 [place], [place] [phone] Social History Tobacco Use Types Packs/Day Years [...] documented as of this encounter Care Teams Volleyball Assembler Relationship Specialty Start Date End Date Hilda Butt MD 230 [place] [address] PCP - General Family Medicine 06/20/22 documented as of this encounter
--- OUTSIDE RECORDS SUMMARY | 2025-02-10 07:07 | XMS_ITS | Encounter Summary ---
Author Organization [employer] Address [address] 7t [place] [address] Care Team Providers Care Rock Mason Name Role Phone Hilda Butt MD Primary Care Provider [phone] Reason for Visit * Reason Onset Date Comments Med Refill 03/11/2024 Encounter Details Date Type Department Care Team ([facility] Contact Info) Description 03/11/2024 Refill [facility] MED & PEDS [address] [place], [place] [phone] Hilda Butt MD 230 [place] [address] Itchy skin of anus and genitals; Recurrent [...] is your housing situation today? I have jaodn sing 08/13/[address] you [...] documented as of this encounter Care Teams Rock Mason Relationship Specialty Start Date End Date Hilda Butt MD 230 [place] [address] PCP - General Family Medicine 06/20/22 documented as of this encounter
--- OUTSIDE RECORDS SUMMARY | 2025-02-10 07:08 | XMS_ITS | Encounter Summary ---
Author Organization [employer] Address [address] 7t [place] [address] Care Team Providers Care Creative Services Manager Name Role Phone Hilda Butt MD Primary Care Provider [phone] Reason for Visit * Reason Onset Date Comments Med Refill 04/22/2024 Encounter Details Date Type Department Care Team ([facility] st Contact Info) Description 04/22/2024 Refill [facility] MEDICINE 230 [place], [place] [phone] Hilda Butt MD 230 [place], [place] [phone] Social History Tobacco Use Types Packs/Day Years [...] documented as of this encounter Care Teams Creative Services Manager Relationship Specialty Start Date End Date Hilda Butt MD 230 [place] [address] PCP - General Family Medicine 06/20/22 documented as of this encounter
--- OUTSIDE RECORDS SUMMARY | 2025-02-10 07:08 | XMS_ITS | Encounter Summary ---
Author Organization [employer] Address [address] 7t [place] [address] Care Team Providers Care Feather Stitcher Name Role Phone Hilda Butt MD Primary Care Provider [phone] Reason for Visit * Reason Onset Date Comments Med Refill 05/10/2024 Encounter Details Date Type Department Care Team ([facility] st Contact Info) Description 05/10/2024 Refill [facility] MEDICINE 230 [place], [place] [phone] Hilda Butt MD 230 [place], [place] [phone] Social History Tobacco Use Types Packs/Day Years [...] documented as of this encounter Care Teams Feather Stitcher Relationship Specialty Start Date End Date Hilda Butt MD 230 [place] [address] PCP - General Family Medicine 06/20/22 documented as of this encounter
--- OUTSIDE RECORDS SUMMARY | 2025-02-10 07:08 | XMS_ITS | Encounter Summary ---
Author Organization [employer] Address [address] [place] [address] Care Team Providers Care Merchandise Deliverer Name Role Phone Tara Paniagua RN Primary Care Provider [phone] Encounter Details Date Type Department Care Team (Late st Contact Info) Description 12/10/2024 Lab Requisition [facility] - Main Lab [address] [facility] [place] [address] Benjamin Kim MD [address] [facility] 204 [place], [address] Essential (primary) hypertension Social History Tobacco [...] mmol/L LAB CHEMISTRY METHOD 12/10/2024 11:46 AM [facility] Potassium 4.3 3.5 - 5.5 mmol/L LAB CHEMISTRY METHOD 12/10/2024 11:46 AM [facility] Chloride 104 96 - 110 mmol/L LAB CHEMISTRY METHOD 12/10/2024 11:46 AM [facility] CO2 29 21 - 32 mmol/L LAB CHEMISTRY METHOD 12/10/2024 11:46 AM [facility] Anion Gap 6 3 - 11 LAB CHEMISTRY METHOD 12/10/2024 11:46 AM [facility] Glucose 122(H) 70 - 100 mg/dL LAB CHEMISTRY METHOD 12/10/2024 11:46 AM [facility] BUN 13 5 - 25 mg/dL LAB CHEMISTRY METHOD 12/10/2024 11:46 AM [facility] Creatinine 0.56 0.50 - 1.10 mg/dL LAB CHEMISTRY METHOD 12/10/2024 11:46 AM [facility] eGFR 110 >=60 mL/min/1. 73m2 LAB CHEMISTRY METHOD 12/10/2024 11:46 AM [facility] Comment:Calculation based on the??Chronic Kidney Disease Epidemiology Collaboration (CKD-EPI) equation refit??without adjustment for race. BUN/Creatinine Ratio 23.2 LAB CHEMISTRY METHOD 12/10/2024 11:46 AM [facility] Calcium 9.7 8.5 - 10.5 mg/dL LAB CHEMISTRY METHOD 12/10/2024 11:46 AM [facility] Blood Venous blood specimen / Unknown Venipuncture / Unknown 12/10/2024 7:30 AM EST 12/10/2024 10:55 AM EST us Benjamin Kim MD LAB BLOOD ORDERABLES Final Resul t [facility] [address] [place] [address], * (ABNORMAL) Complete blood count (12/10/2024 7:30 AM EST) [facility] WBC 6.1 4.8 - 10.8 K/mcL LAB HEMETOLOGY METHOD 12/10/2024 11:22 AM EST [facility] RBC 3.70(L) 3.80 - 4.80 M/mcL LAB HEMETOLOGY METHOD 12/10/2024 11:22 AM [facility] Hemoglobin 10.6(L) 11.5 - 16.0 g/dL LAB HEMETOLOGY METHOD 12/10/2024 11:22 AM [facility] Hematocrit 33.2(L) 35.0 - 47.0 % LAB HEMETOLOGY METHOD 12/10/2024 11:22 AM [facility] MCV 89.2 79.0 - 98.0 FL LAB HEMETOLOGY METHOD 12/10/2024 11:22 AM [facility] MCH 28.5 27.0 - 32.0 pcg LAB HEMETOLOGY METHOD 12/10/2024 11:22 AM [facility] MCHC 31.9(L) 32.0 - 37.0 g/dL LAB HEMETOLOGY METHOD 12/10/2024 11:22 AM [facility] RDW 13.9 11.0 - 15.0 % LAB HEMETOLOGY METHOD 12/10/2024 11:22 AM [facility] Platelets 396 130 - 400 K/mcL LAB HEMETOLOGY METHOD 12/10/2024 11:22 AM [facility] MPV 9.7 7.0 - 11.0 FL LAB HEMETOLOGY METHOD 12/10/2024 11:22 AM [facility] NRBC 0.0 <1.0 % LAB HEMETOLOGY METHOD 12/10/2024 11:22 AM EST [facility] NRBC Absolute 0.00 <0.10 K/mcL LAB HEMETOLOGY METHOD 12/10/2024 11:22 AM EST [facility] Blood Venous blood specimen / Unknown Venipuncture / Unknown 12/10/2024 7:30 AM EST 12/10/2024 10:55 AM EST us Benjamin Kim MD LAB BLOOD ORDERABLES Final Resul t [facility] [address] [place] [address], documented in this encounter Visit Diagnoses Diagnosis Essential (primary) hypertension Unspecified essential hypertension documented in this encounter Care Teams Merchandise Deliverer Relationship Specialty Start Date End Date Tara Paniagua RN [address] [place] [phone] PCP - General 07/24/22 documented as of this encounter
--- OUTSIDE RECORDS SUMMARY | 2025-02-10 07:08 | XMS_ITS | Encounter Summary ---
Author Organization [employer] Address [address] 7t [place] [address] Care Team Providers Care Retail Sales Teammate Name Role Phone Hilda Butt MD Primary Care Provider [phone] Reason for Visit * Reason Onset Date Comments Med Refill 08/10/2024 Encounter Details Date Type Department Care Team ([facility] st Contact Info) Description 08/10/2024 Refill [facility] CH[facility] MED & PEDS [address] [place], [place] [phone] Hilda Butt MD 230 [place] [address] Social History Tobacco Use Types Packs/Day Years [...] as of this encounter Care Teams Retail Sales Teammate Relationship Specialty Start Date End Date Hilda Butt MD 230 [place] [address] PCP - General Family Medicine 06/20/22 documented as of this encounter
--- OUTSIDE RECORDS SUMMARY | 2025-02-10 07:08 | XMS_ITS | Encounter Summary ---
Author Organization [employer] Address [address] 7t [place] [address] Care Team Providers Care Digital Account Director Name Role Phone Hilda Butt MD Primary Care Provider [phone] Reason for Visit * Reason Onset Date Comments Med Refill 04/22/2024 Encounter Details Date Type Department Care Team ([facility] st Contact Info) Description 04/22/2024 Refill [facility] MEDICINE 230 [place], [place] [phone] Hilda Butt MD 230 [place], [place] [phone] Social History Tobacco Use Types Packs/Day Years [...] documented as of this encounter Care Teams Digital Account Director Relationship Specialty Start Date End Date Hilda Butt MD [address] [place] [address] PCP - General Family Medicine 06/20/22 documented as of this encounter
--- OUTSIDE RECORDS SUMMARY | 2025-02-10 07:08 | XMS_ITS | Encounter Summary ---
Author Organization [employer] Address [address] 7t [place] [address] Care Team Providers Care Sand Plant Attendant Name Role Phone Hilda Butt MD Primary Care Provider [phone] Reason for Visit * Reason Onset Date Comments Med Refill 11/05/2024 Encounter Details Date Type Department Care Team ([facility] st Contact Info) Description 11/05/2024 Refill [facility] MEDICINE 230 [place], [place] [phone] Hilda Butt MD 230 [place], [place] [phone] Social History Tobacco Use Types Packs/Day Years [...] documented as of this encounter Care Teams Sand Plant Attendant Relationship Specialty Start Date End Date Hilda Butt MD 230 [place] [address] PCP - General Family Medicine 06/20/22 documented as of this encounter
--- OUTSIDE RECORDS SUMMARY | 2025-02-10 07:08 | XMS_ITS | Encounter Summary ---
Author Organization [employer] Address [address] 7t [place] [address] Care Team Providers Care Transport Manager Name Role Phone Hilda Butt MD Primary Care Provider [phone] Reason for Visit * Reason Onset Date Comments Med Refill 04/22/2024 Encounter Details Date Type Department Care Team ([facility] st Contact Info) Description 04/22/2024 Refill [facility] MEDICINE 230 [place], [place] [phone] Hilda Butt MD 230 [place], [place] [phone] Neck pain Social History Tobacco Use Types [...] documented as of this encounter Care Teams Transport Manager Relationship Specialty Start Date End Date Hilda Butt MD [address] [place] [address] PCP - General Family Medicine 06/20/22 documented as of this encounter
--- OUTSIDE RECORDS SUMMARY | 2025-02-10 07:08 | XMS_ITS | Encounter Summary ---
Author Organization [employer] Address [address] [place] [address] Care Team Providers Care Networker Name Role Phone Tara Paniagua RN Primary Care Provider [phone] Encounter Details Date Type Department Care Team (Late st Contact Info) Description 12/28/2024 Lab Requisition [facility] - Main Lab [address] [facility] [place] [address] Benjamin Kim MD [address] [facility] [address] [place], [address] Heart failure, unspecified (CMS/HCC V24, CMS/HCC V28) Social History Tobacco Use Types Packs/Day Years [...] mmol/L LAB CHEMISTRY METHOD 12/29/2024 3:[address] [facility] Potassium 4.2 3.5 - 5.5 mmol/L LAB CHEMISTRY METHOD 12/29/2024 3:[address] [facility] Chloride 107 96 - 110 mmol/L LAB CHEMISTRY METHOD 12/29/2024 3:[address] [facility] CO2 30 21 - 32 mmol/L LAB CHEMISTRY METHOD 12/29/2024 3:[address] [facility] Anion Gap 6 3 - 11 LAB CHEMISTRY METHOD 12/29/2024 3:[address] [facility] Glucose 114(H) 70 - 100 mg/dL LAB CHEMISTRY METHOD 12/29/2024 3:[address] [facility] BUN 37(H) 5 - 25 mg/dL LAB CHEMISTRY METHOD 12/29/2024 3:[address] [facility] Creatinine 1.03 0.50 - 1.10 mg/dL LAB CHEMISTRY METHOD 12/29/2024 3:[address] [facility] eGFR 66 >=60 mL/min/1. 73m2 LAB CHEMISTRY METHOD 12/29/2024 3:[address] [facility] Comment:Calculation based on the??Chronic Kidney Disease Epidemiology Collaboration (CKD-EPI) equation refit??without adjustment for race. BUN/Creatinine Ratio 35.9 LAB CHEMISTRY METHOD 12/29/2024 3:[address] [facility] Calcium 9.7 8.5 - 10.5 mg/dL LAB CHEMISTRY METHOD 12/29/2024 3:[address] [facility] Blood Venous blood specimen / Unknown Venipuncture / Unknown 12/29/2024 7:42 AM EST 12/29/2024 11:02 AM EST us Benjamin Kim MD LAB BLOOD ORDERABLES Final Resul t [facility] [address] [place] [address], * (ABNORMAL) Complete blood count (12/29/2024 7:42 AM EST) WBC 5.8 4.8 - 10.8 K/mcL LAB HEMETOLOGY METHOD 12/29/2024 11:32 AM EST [facility] RBC 3.90 3.80 - 4.80 M/mcL LAB HEMETOLOGY METHOD 12/29/2024 11:[address] [facility] Hemoglobin 11.2(L) 11.5 - 16.0 g/dL LAB HEMETOLOGY METHOD 12/29/2024 11:[address] [facility] Hematocrit 36.0 35.0 - 47.0 % LAB HEMETOLOGY METHOD 12/29/2024 11:[address] [facility] MCV 91.8 79.0 - 98.0 FL LAB HEMETOLOGY METHOD 12/29/2024 11:[address] [facility] MCH 28.6 27.0 - 32.0 pcg LAB HEMETOLOGY METHOD 12/29/2024 11:[address] [facility] MCHC 31.1(L) 32.0 - 37.0 g/dL LAB HEMETOLOGY METHOD 12/29/2024 11:[address] [facility] RDW 14.1 11.0 - 15.0 % LAB HEMETOLOGY METHOD 12/29/2024 11:[address] [facility] Platelets 282 130 - 400 K/mcL LAB HEMETOLOGY METHOD 12/29/2024 11:[address] [facility] MPV 10.1 7.0 - 11.0 FL LAB HEMETOLOGY METHOD 12/29/2024 11:32 AM EST [facility] NRBC 0.0 <1.0 % LAB HEMETOLOGY METHOD 12/29/2024 11:32 AM EST [facility] NRBC Absolute 0.00 <0.10 K/mcL LAB HEMETOLOGY METHOD 12/29/2024 11:32 AM EST [facility] Blood Venous blood specimen / Unknown Venipuncture / Unknown 12/29/2024 7:42 AM EST 12/29/2024 11:02 AM EST us Benjamin Kim MD LAB BLOOD ORDERABLES Final Resul t [facility] [address] [place] [address], documented in this encounter Visit Diagnoses Diagnosis Heart failure, unspecified (CMS/HCC V24, CMS/HCC V28) Heart failure, unspecified documented in this encounter Care Teams Networker Relationship Specialty Start Date End Date Tara Paniagua RN [address] [place] [phone] PCP - General 07/24/22 documented as of this encounter
--- OUTSIDE RECORDS SUMMARY | 2025-02-10 07:08 | XMS_ITS | Encounter Summary ---
Author Organization [employer] Address [address] [place] [address] Care Team Providers Care Dielectric Tester Name Role Phone Hilda Butt MD Primary Care Provider [phone] Reason for Visit * Reason Onset Date Comments Med Refill 03/11/2024 Encounter Details Date Type Department Care Team ([facility] st Contact Info) Description 03/11/2024 Refill [facility] MEDICINE 230 [place], [place] [phone] Hilda Butt MD 230 [place], [place] [phone] Social History Tobacco Use Types Packs/Day Years [...] documented as of this encounter Care Teams Dielectric Tester Relationship Specialty Start Date End Date Hilda Butt MD 230 [place] [address] PCP - General Family Medicine 06/20/22 documented as of this encounter
--- OUTSIDE RECORDS SUMMARY | 2025-02-10 07:08 | XMS_ITS | Encounter Summary ---
Author Organization [employer] Address [address] 7t [place] [address] Care Team Providers Care Bike Technician Name Role Phone Hilda Butt MD Primary Care Provider [phone] Reason for Visit * Reason Onset Date Comments Med Refill 02/25/2024 Encounter Details Date Type Department Care Team ([facility] st Contact Info) Description 02/25/2024 Refill [facility] MEDICINE 230 [place], [place] [phone] Hilda Butt MD 230 [place], [place] [phone] Dizziness Social History Tobacco Use Types Packs/Day [...] documented as of this encounter Care Teams Bike Technician Relationship Specialty Start Date End Date Hilda Butt MD 230 [place] [address] PCP - General Family Medicine 06/20/22 documented as of this encounter
--- OUTSIDE RECORDS SUMMARY | 2025-02-10 07:08 | XMS_ITS | Encounter Summary ---
Author Organization [employer] Address [address] 7[address] [place] [address] Care Team Providers Care Mathematics Professor Name Role Phone Hilda Butt MD Primary Care Provider [phone] Reason for Visit * Reason Onset Date Comments Med Refill 11/03/2024 Encounter Details Date Type Department Care Team ([facility] st Contact Info) Description 11/03/2024 Refill [facility] MEDICINE 230 [place], [place] [phone] Hilda Butt MD 230 [place], [place] [phone] Social History Tobacco Use Types Packs/Day Years [...] documented as of this encounter Care Teams Mathematics Professor Relationship Specialty Start Date End Date Hilda Butt MD 230 [place] [address] PCP - General Family Medicine 06/20/22 documented as of this encounter
--- OUTSIDE RECORDS SUMMARY | 2025-02-10 07:08 | XMS_ITS | Encounter Summary ---
Author Organization [employer] Address [address] [place] [address] Care Team Providers Care Personnel Assistant Name Role Phone Hilda Butt MD Primary Care Provider [phone] Reason for Visit * Reason Onset Date Comments Med Refill 01/22/2024 Encounter Details Date Type Department Care Team ([facility] st Contact Info) Description 01/22/2024 Refill [facility] MEDICINE 230 [place], [place] [phone] Hilda Butt MD 230 [place], [place] [phone] Social History Tobacco Use Types Packs/Day Years [...] documented as of this encounter Care Teams Personnel Assistant Relationship Specialty Start Date End Date Hilda Butt MD [address] [place] [address] PCP - General Family Medicine 06/20/22 documented as of this encounter
--- OUTSIDE RECORDS SUMMARY | 2025-02-10 07:08 | XMS_ITS | Data Portability ---
Author Organization [employer] | [employer], [employer] - [facility] Address [address] [place] [address] Care Team Providers Care Volunteer Coordinator Name Role Phone HIM CCA OTHER Assessment Encounter Date Assessment Date Assessment LastModified by Organization Details LastModified Time 10/26/2023 10/26/2023 I provided real -time medical direction via phone for this encounter, and was available for additional phone based assistance as needed. I have reviewed and agree with the Assessment and Plan as documented by the Unix Analyst. Patient given the opportunity to ask questions. [...] Assessment and Plan as documented by the Unix Analyst. Patient given the opportunity to ask questions. [...] Ag, QL IA, [facility] [address], [phone] 3 17:51:19 Referral None recorded. Procedures None recorded. Surgeries None recorded. Imaging electrocard iogram [address], [phone] 4 17:16:38 Medication Orders prednisone 20 mg tablet [address] [facility] Not available 4 14:59:40 prednisone 20 mg tablet [address] [facility] Not available 4 14:59:40 doxycycline hyclate 100 mg tablet 2023 024 [facility], [address] [place] [address], [id number], 4 14:00:23 doxycycline hyclate 100 mg tablet 2023 024 [facility], [address] [place] [address], [id number], 14:59:40 Patient TargetsNo targets recorded. Patient InstructionsNo instructions recorded. Reason for Referral None Reported. Results Created Date Observation Date Name Description Value Unit Range Abnormal Flag Note LastModifiedBy Organization Detail LastModifiedTime 10/26/2010/26/2023 rapid SARS CoV 2 Ag, QL IA, respi rator y speci men rapid SARS CoV 2 Ag, QL IA, respiratory specimen positi ve Not Available Main - [facility] ed [address] [place] [address], [phone] 10/26/2023 17:48:34 11/02/19 24 11/02/2023 elect jet [email or web address] am No observ ation record ed. [address], [phone] 11/02/2023 17:37:03 Result Notes None recorded. Procedures Surgical History None recorded. Imaging Results Imaging Date Name Status LastModified by Organization Details LastModified Time 11/02/2023 electrocardiogram completed [address], [phone] 11/02/2023 17:37:03 Procedure Notes None recorded. Medical [...] Available Not Available No t Available omega 1-lcw-owp-fis h oil 60 mg-90 mg-500 mg capsule [...] cm 98 % 98 % 90 /min 20063.7 2 g 98.6 [degF] 155 mm[Hg] 80 mm[Hg] Not Available [employer] [employer] 3 17:48:09 Date Recorded Body weight Respiratory rate Heart rate Body height Oxygen saturation Oxygen saturation in Arterial blood by Pulse oximetry Body temperature Systolic blood pressure Diastolic blood pressure Provider Name and Address Organization Details Last Updated DateTime 4 09245.7 2 g 16 /min 107 /min 149.86 cm 99 % 99 % 99.3 [degF] 127 mm[Hg] 75 mm[Hg] Not Available [facility] [employer] 4 14:43:50 Date Recorded Oxygen saturation Oxygen saturation in Arterial blood by Pulse oximetry Respiratory rate Body height Body temperature Heart rate Body weight Systolic blood pressure Diastolic blood pressure Provider Name and Address Organization Details Last Updated DateTime 4 96 % 96 % 18 /min 149.86 cm 99.7 [degF] 95 /min 90896.7 2 g 149 mm[Hg] 85 mm[Hg] Not Available [facility] [employer] 4 21:15:31 Date Recorded Respiratory rate Oxygen saturation Oxygen saturation in Arterial blood by Pulse oximetry Body weight Heart rate Body temperature Body temperature Systolic blood pressure Diastolic blood pressure Systolic blood pressure Diastolic blood pressure Provider Name and Address Organization Details Last Updated DateTime 4 16 /min 97 % 97 % 40784.7 2 g 88 /min 100.6 [degF] 99.3 [...] SNOMED-CT Code Diagnosis ICD10 Code Diagnosis Note [id number] Chandrika Harvey MD Main - [facility] [address] [place] [phone] 10/26/2023 17:48:07 10/28/2023 12:39:36 Respiratory tract congestion and cough 748660572 R05.9 [id number] [facility] [address] [place] [phone] 11/02/2023 14:43:48 11/03/2023 12:13:44 Acute exacerbation of chronic obstructive pulmonary disease [id number] J44.1 Evaluation in the field was performed by my construction technology instructor colleague, as noted above, I provided real-time [...] concerns. Chandrika Harvey MD Main - [facility] [address] [place] [phone] 12/12/2023 21:15:30 12/13/2023 12:40:12 Chronic low back pain [id number] M54.50 [id number] Jorge Luis Gates MD Main - [facility] [address] [place] [phone] 07/02/2024 17:31:28 07/05/2024 22:19:44 Hypotensive episode 16828908 I95.9 As noted, we were called to see this patient regarding concerns of hypotensio n. Evaluation in the field was performed by my construction technology instructor colleague, as noted above, I provided real-time direction and supervisio n for this visit. She had gone to urgent care earlier in the day for symptoms of COPD and was given Augmentin. She had an episode of low blood pressure for which we were dispatched . On the construction technology instructor examinatio n, she had a normal physical [...] [place] Member ID Guarantor Name 10/26/2023 1 [facility] - DOS ON OR AFTER 2023 - DUAL ELIGIBLE - CARE HOME OPTIONS AND ONE CARE (MEDICARE REPLACEMENT/ADV ANTAGE - HMO) Renita Haddad [id number] Renita Haddad 11/02/2023 1 [facility] - DOS ON OR AFTER 2023 - DUAL ELIGIBLE - CARE HOME OPTIONS AND ONE CARE (MEDICARE REPLACEMENT/ADV ANTAGE - HMO) Renita Haddad [id number] Renita Haddad 12/12/2023 1 [facility] - DOS ON OR AFTER 2023 - DUAL ELIGIBLE - CARE HOME OPTIONS AND ONE CARE (MEDICARE REPLACEMENT/ADV ANTAGE - HMO) Renita Haddad [id number] Renita Haddad 07/02/2024 1 [facility] - DOS ON OR AFTER 2023 - DUAL ELIGIBLE - CARE HOME OPTIONS AND ONE CARE (MEDICARE REPLACEMENT/ADV ANTAGE - HMO) Renita Haddad [id number] Renita Haddad Notes Date Note Type Note Provider Name and Address Organization Details Recorded Time 10/26/2023 text/html CRC Nurse Triage Notes (Demian Hernandez): Chief Complaints: URI Allergies: Unknown Comments: Member reports feeling unwell x1 day - Congestion with body aches - Denies cough/fever - Home COVID test was positive - Hedy SYLVESTER ................... ................... ................... ................... ................... ................... ................... ........ Unix Analyst Note From Sunil Schaefer: Pt reports runny [...] ................... ........ Disposition: Fulfilled Chandrika Harvey MD [address] [place] [address],[address], [place], [address], [employer] | [employer] 10/26/2023 17:51:42 11/02/2023 text/html CRC Nurse Triage [...] Complaints: Cough, Weakness/Lethargy, URI Allergies: Unknown Comments: E Commerce Analyst verified the pt.? s address and phone [...] ................... ................... ................... ................... ................... ................... ........ Unix Analyst Note From Sunil Schaefer: Pt tested positive for covid last Friday and is still experiencing sx despite retesting negative. Sx include dry cough, chest tightness, weakness and mild SOB. Pt is alert, NAD. VSS. Afebrile. Non focal neuro exam. Normal gait. Lungs CTA. Benign ABD exam. No LE edema. Rapid covid and flu negative. ECG uploaded. [facility] contacted and pt treated with doxycycline 100 mg and prednisone 40 mg. Pt instructed to seek emergent medical care for new or worsening sx, which are reviewed with her. ................... ................... ................... ................... ................... ................... ................... ........ Disposition: Fulfilled NIKIA AMATO MD [address] [facility],[address], [place], [address], [facility] - [employer] 11/02/2023 17:21:37 12/12/2023 text/html HPI: PMH: Left bundle branch block, Vertebral artery dissection. Call to Renita Brandon, reports having body aches x 1 weeks. Per pt no JOSE GUADALUPE sx, fever or urinary sx. Per pt pain is from the waist down. Pt has been using Motrin PRN for pain. Pt states has difficulty with walking. Pt advised of disposition, agrees to [facility] for exam since no appt in office and Holiday on Friday. ................... ................... ................... ................... ................... ................... ................... ........ [facility] Nurse Triage Notes (Anum Stone): Comments: HPI reviewed. No further information needed to process visit. ................... ................... ................... ................... ................... ................... ................... ........ Unix Analyst Note From Katt Alexis: Sent to a [...] but pt advised to follow up with [facility] for another visit for re-evaluation/possi ble Toradol injection. Pt advised to call 911 if condition persists/worsens. Red flags discussed. Pt has no further questions. ................... ................... ................... ................... ................... ................... ................... ........ Disposition: Patt Harvey MD [address] [facility],[address], [place], [address], [employer] [facility] [employer] 12/12/2023 21:18:21 07/02/2024 text/html CRC Nurse Triage [...] ................... ................... ................... ................... ................... ................... ........ Unix Analyst Note From Rojas Fisher: Pt co hypertension [...] ........ Disposition: Fulfilled Jorge Luis Gates MD [address] [place] [address],[address] [facility], [place], [address], [employer] [facility] [employer] 07/02/2024 21:57:09 OBGyn Episode No OBEpisode recorded."
--- OUTSIDE RECORDS SUMMARY | 2025-02-10 07:08 | XMS_ITS | Encounter Summary ---
Author Organization [employer] Address [address] [facility] [place] [address] Care Team Providers Care Decorative Greens Cutter Name Role Phone Hilda Butt MD Primary Care Provider [phone] Reason for Visit * Reason Onset Date Comments Med Refill 11/19/2024 Encounter Details Date Type Department Care Team ([facility] st Contact Info) Description 11/19/2024 Refill [facility] [address] [place], [place] [phone] Hilda Butt MD [address] [place] [address] Social History Tobacco Use Types Packs/Day Years [...] documented as of this encounter Care Teams Decorative Greens Cutter Relationship Specialty Start Date End Date Hilda Butt MD [address] [place] [address] PCP - General Family Medicine 06/20/22 documented as of this encounter
--- OUTSIDE RECORDS SUMMARY | 2025-02-10 07:08 | XMS_ITS | Encounter Summary ---
Author Organization [employer] Address [address] [place] [address] [address] [place] [address] Care Team Providers Care Cigarette Making Machine Catcher Name Role Phone Hilda Butt MD Primary Care Provider [phone] Reason for Referral * Imaging (Routine) - Closed Specialty Diagnoses / Procedures Referred By Winter roa Referred To Contact Radiology Diagnoses Vertebral artery dissection (CMS/HCC) Tinnitus of both ears Procedures CTA Neck w/ and w/o Contrast Hilda Butt MD [address] [place] [address] Phone: tel: fax: [address] Phone: tel: fax: Referral ID Status Reason Start Date Expiration Date Visits Re quested Visits Authorized [id number] Closed 03/08/2024 03/08/2025 1 1 * Imaging (Routine) - Closed Specialty Diagnoses / Procedures Referred By Winter roa Referred To Contact Radiology Diagnoses Vertebral artery dissection (CMS/HCC) Tinnitus of both ears Procedures CTA Head w/ and w/o Contrast Hilda Butt MD [address] [place] [address] Phone: tel: fax: [address] Phone: tel: fax: Referral ID Status Reason Start Date Expiration Date Visits Re quested Visits Authorized [id number] Closed 03/08/2024 03/08/2025 1 1 * Imaging (Routine) - Canceled Specialty Diagnoses / Procedures Referred By Winter t Referred To Contact Radiology Diagnoses Vertebral artery dissection (CMS/HCC) Tinnitus of both ears Procedures CTA Head Neck w/ and w/o Contrast Hilda Butt MD [address] [place] [address] Phone: tel: fax: [address] Phone: tel: fax: Referral ID Status Reason Start Date Expiration Date V isits Requested Visits Authorized [id number] Canceled 03/05/2024 03/05/2025 1 1 Encounter Details Date Type Department Care Team (Late st Contact Info) Description 03/05/2024 Orders Only [facility] [address] [place] [address] [phone] Hilda Butt MD [address] [place] [address] [phone] Vertebral artery dissection (CMS/HCC) (Primary Dx); Tinnitus [...] EDT Narrative 06/09/2024 10:01 AM EDT ? [facility] ?[address] ?[place] [address] ? CT Scan Report ? Signed ? Patient: Brandon,Renita ?MR#: [id number] ?? 4 ? : 1970 ?Acct:[id number] ? Age/Sex: 53 / F ?ADM Date: 05/17/24 ? Loc: HO.CT ? Attending Dr: Hilda Butt MD ? Ordering Physician: Hilda Butt ?? Date of Service: 05/17/24 ?? Procedure(s): CT angio head neck ?? Accession Number(s): [id number] ? cc: Hilda Butt ? EXAMINATION: ?? [...] of the left ?? vertebral artery with ujtf-gi-vhrihhvd luminal narrowing. ? Right Carotid: There is [...] 0957 ? DD/ 1356 ? TD/TT: ? Joiner Apprentice: ? Procedure Note Donotuseinterpreter, Image - 06/09/[address] [address] [address] Scan Report Signed Patient: Adin Brandon#: [id number] 4 : 1970Acct:[id number] Age/Sex: 53 / FADM Date: 05/17/24 Loc: HO.CT Attending Dr: Hilda Butt MD Ordering Physician: Hilda Butt Date of Service: 05/17/24 Procedure(s): CT angio head neck Accession Number(s): [id number] cc: Hilda Butt EXAMINATION: CT ANGIOGRAM HEAD [...] aspect of the left vertebral artery with ciya-kx-iogeeyvi luminal narrowing. Right Carotid: There is moderately [...] SINCLAIR MD Signed By: <Electronically signed by AMDDIE SINCLAIR MD in OV> 06/09/24 0957 DD/ 1356 TD/TT: Joiner Apprentice: Hilda Butt MD IMG CT PROCEDURES Final Result documented in this encounter Visit Diagnoses Diagnosis Vertebral artery dissection (CMS/HCC)- Primary Dissection of vertebral artery Tinnitus of both ears Unspecified tinnitus documented in this encounter Additional Health Concerns Assessment Noted Time PHQ-9 Depression Total Score: 0 11/17/19 24 10:34 AM EST documented as of this encounter Care Teams Cigarette Making Machine Catcher Relationship Specialty Start Date End Date Hilda Butt MD [address] [place] [id number] PCP - General Family Medicine 06/20/22 documented as of this encounter
--- OUTSIDE RECORDS SUMMARY | 2025-02-10 07:08 | XMS_ITS | Continuity of Care Document ---
Author Organization [facility], [facility] Address [address] [place] [address] Care Team Providers Care Office Services Specialist Name Role Phone LINDA GOFF - 4TH FLOOR OTHER FRANNIE ARSHAD Primary Care Provider [phone] Assessment No assessment recorded. Plan of Treatment [...] and Address Organization Details Recorded Time Dysphagia 19485597 Active 2024 Jessica [place] NP [address] , [address], [place], [address], [facility] [employer] 5 15:19:53 Left hemiplegia 643973434 Active 2024 Jessica [place] NP [address] , [address], [place], [address], [facility] [employer] 5 15:20:52 Cerebrovascula r accident 989762775 Active 2024 Jessica [place] NP [address], [address], [place], [address], [facility] [employer] 5 15:20:58 Carotid artery stenosis 81308452 Active 2024 Jessica [place] NP [address], [address], [place], [address], [facility] [employer] 5 15:22:09 Congestive heart failure 57687975 Active 2024 Jessica [place] NP [address], [address], [place], [address], [place] [facility] 5 15:22:17 Chronic obstructive pulmonary disease 51871553 Active 2024 Jessica [place] NP [address], [place], [address], [place] [facility] 5 15:22:23 Automatic implantable cardiac defibrillator in situ 590486361 Active 2024 Jessica [place] NP [address], [place], [address], [place] [facility] 5 15:22:38 Bipolar disorder 46750759 Active 2024 Jessica [place] NP [address], [place], [address], [place] [facility] 5 15:22:46 Hypoxia 058983637 Active 2024 Jessica [place] NP [address], [address], [place], [address], [facility] 5 15:24:15 Hypertensive disorder 99856388 Active 2024 Jessica [place] NP [address], [place], [address], [place] [facility] 5 15:24:34 Hyperlipidemia 27019791 Active 2024 Jessica [place] NP [address], [place], [address], [facility] 5 15:24:44 Anemia 055730868 Active 2024 Jessica [place] NP [address], [place], [address], [facility] 5 15:40:32 Gastroesophage al reflux disease 462002171 Active 2024 Jessica [place] NP [address], [place], [address], [place] [facility] 5 15:45:51 Problem Notes None recorded. Medical Equipment None Reported. Allergies Allergen ID Allergen Name Allergen Category Reaction Reaction Severity Criticality Documentation Date Start Date Code Code System Note Provider Name and Address Organization Details Recorded Time 62555 lisinopri l medicatio n other Not available unabletoasse ss 12/09/2024 04078 RxNorm unkno wn Not Available Not Available Not Available Medications Not known to be on any medication Vitals Date Recorded Body weight Heart rate Respiratory rate Body temperature Oxygen saturation Oxygen saturation in Arterial blood by Pulse oximetry Systolic blood pressure Diastolic blood pressure Provider Name and Address Organization Details Last Updated DateTime 5 92982.4 9 g 91 /min 16 /min 98 [degF] 98 % 98 % 137 mm[Hg] 92 mm[Hg] Jessica [place] NP [address] [facility] [facility] [address], [place], [address], [facility] 5 09:59:58 Social History Question Answer Notes LastModified by Organizat ion Details LastModified Time Tobacco Smoking Status Former Smoker Jessica [place] NP [address] [facility], [facility] [address], [place], [address], [facility] 12/09/2024 15:31:49 Do You Have An [...] Hep B, unspecified formulation 4 completed Rossi Yomi null, [facility] 12/09/2024 15:28:00 Hep B, unspecified formulation 4 completed [facility] 15:28:09 Hep B, unspecified formulation 4 completed [facility] 12/09/2024 15:28:17 Tdap 4 completed [facility] 12/09/2024 15:29:05 Tdap 4 completed Rossi Yomi [facility] 12/09/2024 15:29:14 Pneumococcal conjugate PCV 13 4 completed [facility] 12/09/2024 15:29:28 pneumococcal polysaccharide PPV23 1 completed [facility] 12/09/2024 15:29:45 influenza, unspecified formulation 3 completed [facility] 12/09/2024 15:30:08 influenza, unspecified formulation 4 completed [facility] 12/09/2024 15:30:14 Hep A, unspecified formulation 4 completed [facility] 12/09/2024 15:30:29 Hep A, unspecified formulation 4 completed [facility] 12/09/2024 15:30:37 SARS-COV-2 (COVID-19) vaccine, UNSPECIFIED 1 completed [facility] 12/09/2024 15:31:01 SARS-COV-2 (COVID-19) vaccine, UNSPECIFIED 2 completed [facility] 12/09/2024 15:31:08 SARS-COV-2 (COVID-19) vaccine, UNSPECIFIED 3 completed Rossiiesha Celaya [facility] 12/09/2024 15:31:17 SARS-COV-2 (COVID-19) vaccine, UNSPECIFIED 4 completed Rossi [facility] 12/09/2024 15:31:25 zoster, unspecified formulation 2 completed Rossi [facility] 12/09/2024 15:31:41 zoster, unspecified formulation 2 completed Rossi [facility] 12/09/2024 15:31:51 Past Encounters Encounter ID Performer Location Encounter Start Date Encounter Closed Date Diagnosis/Indication Diagnosis SNOMED-CT Code Diagnosis ICD10 Code Diagnosis Note [id number] Jessica [place] NP [facility] [address] [place] [address] 01/12/2025 08:32:32 01/17/2025 08:47:39 Dysphagia 56010849 R13.10 now with new cough ? related to eating01/12 start mucinex 600 mg po bid x 86dcjt9/19 cxr for cough ro asp01/12 speech to evalcontre g diet, puree, and honey consistenc ymeds through g tubecont g tube feedings - currently on jevity 1.5 @ 42 cc/h x12 h per day director of science which is 50% reduction, plan to dc in 1-2 weeks if doing wellfollow ing and titrating now she is eatingSLP eval and tx as indicatedM onitor labs, weights, s/s aspiration . Chronic pain 91982901 G8 9.29 controlled Currently on:tyl 650 mg po tidibuprof en 400 mg gtube tidgabapen tin from 200 mg tube tidapap tidmuscle rub cream tid to left kneewill get ekg in 1 weeks with hx of cardiac disease on amiodarone Refer to Dr. Flores for eval and tx.monitor for relief and adjustment Candidiasis of mouth 797 96298 B37.0 resolvedco mpleted nystatin swish and spit x 10 days totalperid ex mouthwash 15 ml apply to tongue throughout day with swab, provide in amMaintain oral care including brushing tonguemoni tor Carotid ar jonas stenosis 90054215 I65.29 sp right carotid endarterec ajida, performed on 11/22/24. She suffered a right carotid dissection , hematoma, as well as a CVA, which left her with left sided hemiplegia and dysphagia on tube feedsbaby aspirinmon itor s/s of infectionf u with surgery prnbmp and cbc prnhad an appt with Dr De Anda on 01/04, will inquire if more ac is needed or just the baby asa, awaiting notes Cerebrovas cular accident [id number] I63.9 sp right carotid endarterec jaida, performed on 11/22/24.Sh e suffered a right carotid dissection , hematoma, as well as a CVA, which left her with left sided hemiplegia and dysphagia on tube feedssee pain abovePT OT SLPASA 81 mg qd for acatorvast atin [address] Mark for further assessment and pain mgmt.Monit or Left hemiplegia 76381215 8 G81.94 see above Bipolar disorder 4870914 4 F31.9 hx ofcontinue sertraline 50 mg qdtrazodon e 75 mg po qhs for insomniare ferred to Psychmonit or Congestive heart failure 18612748 I50.9 Continue:f urosemide 20 mg po qdentresto 24-36 po bidspirola ctone 25 mg po qdmonitor bmp and s/s of chf Cough 88331569 R05.9 now with new cough ? related to eating01/12 start mucinex 600 mg po bid x 76ftvq0/19 cxr for cough ro asp3/19 speech to eval for new coughcont robitussin prnmonitor [id number] Jessica [place] NP [address] [address] 01/13/2025 09:17:58 01/17/2025 09:21:59 Cough 41124401 R05.9 now with new cough ? related to eating01/12 start mucinex 600 mg po bid x 83volx5/19 cxr for cough ro asp3/19 speech to eval for new cough3 xray still pendingcon t robitussin prnmonitor Dysphagia 65895586 R13.1 0 now with new cough ? related to eating01/12 start mucinex 600 mg po bid x 87lxml5/19 cxr for cough ro asp01/12 speech to evalcontre g diet, puree, and honey consistenc ymeds through g tubecont g tube feedings - currently on jevity 1.5 @ 42 cc/h x12 h per day director of science which is 50% reduction, plan to dc in 1-2 weeks if doing wellfollow ing and titrating now she is eatingSLP eval and tx as indicatedM onitor labs, weights, s/s aspiration . Chronic pain 29980586 G8 9.29 controlled , reports still having some pain at timesCurre ntly on:tyl 650 mg po tidibuprof en 400 mg gtube tidgabapen tin from 200 mg tube tidapap tidmuscle rub cream tid to left kneeRefer to Dr. Flores for eval and tx.01/10 seen by PM & R and rec tizanidine 2mg po ti/ will start 01/13 tizandine 2mg po q am and then q 8 hours for spasticity , if tolerates will increase to tidmonitor for relief and adjustment Cerebrovas cular accident [id number] I63.9 sp right carotid endarterec jaida, performed on 11/22/24.Sh ashley suffered a right carotid dissection , hematoma, as well as a CVA, which left her with left sided hemiplegia and dysphagia on tube feedssee pain abovePT OT SLPASA 81 mg qd for acatorvast atin [address] Flores for further assessment and pain mgmt.Monit or Left hemiplegia 56260073 8 G81.94 see above [id number] Jessica [place] NP [facility] [address] [place] [address] 01/20/2025 10:37:44 01/24/2025 12:55:51 Cough 95801805 R05.9 now with new cough ? related to eatingcont mucinex 600 mg po bid for a few more daysspeech to eval for new cough and fees done on 01/19 see hpi01/13 xray still unremarkab lecont robitussin prnmonitor Dysphagia 65699473 R13.1 0 now with new cough ? related to eating see hpi above contreg diet, puree, and honey consistenc ymeds through g tube01/20 dc g tube feedings - currently on jevity 1.5 @ 42 cc/h x12 h per day director of science which is 50% reduction [employer] OPERATIONS MANAGER eval and tx as indicatedM onitor labs, weights, s/s aspiration .monitor for need to dc gtube in one to two months when eating and gaining weight consistent ly Chronic pain 00048169 G8 9.29 controlled , reports still having some pain at timesCurre ntly on:tyl 650 mg po tidibuprof en 400 mg gtube tidgabapen tin from 200 mg tube tidapap tidmuscle rub cream tid to left kneeRefer to Dr. Flores for eval and tx. 01/20 due to flaccid left side and decreased tone per therapy today will dc sched tizanidine and leave prn q 8 hours prn for spasticity monitor for relief and adjustment Cerebrovas cular accident [id number] I63.9 sp right carotid endarterec jaida, performed on 11/22/24.Sh ashley suffered a right carotid dissection , hematoma, as well as a CVA, which left her with left sided hemiplegia and dysphagia on tube feedssee pain abovePT OT SLPASA 81 mg qd for acatorvast atin [address] Flores for further assessment and pain mgmt.Monit or Left hemiplegia 42601292 8 G81.94 see above [id number] Jessica [place] NP [address] [address] 01/27/2025 11:29:47 01/31/2025 08:39:10 Cough 17925107 R05.9 resolved xray still unremarkab lecont robitussin prnmonitor Dysphagia 88103416 R13.1 0 contreg diet, puree, and honey consistenc ymeds through g tubeg tube feeds stopped for a 1-2 weeks and gaining weightdecr ease flush to 180cc bidnsg to trial meds po in the afternoon and montiorSLP eval and tx as indicatedM onitor labs, weights, s/s aspiration .monitor for need to dc gtube in one to two months when eating and gaining weight consistent ly Chronic pain 75473811 G8 9.29 controlled Currently on:tyl 650 mg po tidibuprof en 400 mg gtube tidgabapen tin from 200 mg tube tidapap tidmuscle rub cream tid to left kneeRefer to Dr. Flores for eval and tx.tizanid ine and leave prn q 8 hours prn for spasticity , did not georges the sched dosesmonit or for relief and adjustment Cerebrovas cular accident [id number] I63.9 sp right carotid endarterec jaida, performed on 11/22/24. ashley suffered a right carotid dissection , hematoma, as well as a CVA, which left her with left sided hemiplegia and dysphagia on tube feedssee pain abovePT OT SLPASA 81 mg qd for acatorvast atin [address] Mark for further assessment and pain mgmt.Monit or Left hemiplegia 63529330 8 G81.94 see above [id number] Jessica [place] NP [address] [address] 02/04/2025 11:17:37 02/07/2025 13:13:20 Dysphagia 85587168 R13.10 contreg diet, puree, and honey consistenc y4/ tolerating meds with nurse in afternoon, will change all meds to pog tube feeds stopped for a 1-2 weeks and gaining weight, and doing well02/04 decrease g tube flush to 30cc qdnsg to trial meds po in the afternoon and monitorSLP eval and tx as indicatedM onitor labs on onitor weights, s/s aspiration .monitor for need to dc gtube in one to two months when eating and gaining weight consistent ly Chronic pain 73390877 G8 9.29 no painContty l 650 mg po tidibuprof en 400 mg po tidgabapen tin from 200 mg po tidapap tidmuscle rub cream tid to left kneeRefer to Dr. Flores for eval and tx.tizanid ine and leave prn q 8 hours prn for spasticity , did not georges the sched dosesmonit or for relief and adjustment Cerebrovas cular accident [id number] I63.9 sp right carotid endarterec jaida, performed on 11/22/24.Sh e suffered a right carotid dissection , hematoma, as well as a CVA, which left her with left sided hemiplegia and dysphagia on tube feedssee pain abovePT OT SLPASA 81 mg qd for acatorvast atin [address] Flores for further assessment and pain mgmt.Monit or Left hemiplegia 55890261 8 G81.94 see above [id number] Jessica [place] NP [address] [address] 02/09/2025 09:59:15 02/09/2025 10:18:17 Chronic pain 83042833 G89.29 no painContty l 650 mg po tidibuprof en 400 mg po tidgabapen tin from 200 mg po tidapap tidmuscle rub cream tid to left kneeRefer to Dr. Flores for eval and tx.tizanid ine and leave prn q 8 hours prn for spasticity , did not georges the sched dosesmonit or for relief and adjustment Dysphagia 40434029 R13.1 0 contreg diet, puree, and honey consistenc yg tube feeds stopped >2 weeks ago and gaining weight, and doing wellcont g tube flush to 30cc qd for patencytak ing po meds wellSLP eval and tx as indicateds [facility] [place]monito r weights, s/s aspiration .monitor for need to dc gtube in one to two months when eating and gaining weight consistent ly Cerebrovas cular accident [id number] I63.9 sp right carotid endarterec jaida, performed on 11/22/24.Sh e suffered a right carotid dissection , hematoma, as well as a CVA, which left her with left sided hemiplegia and dysphagia on tube feedssee pain abovePT OT SLPcontASA 81 mg qd for acatorvast atin [address]dDr[address] Flores following for pain mgmt.Monit or Left hemiplegia 02634262 8 G81.94 see above Nasal congestion 6617506 0 R09.81 reports nasal congestion and occ cough for 1.5 weekslast cxr 01/13 unremarkab le02/09alre surya on cetirizine 10 mg po qam and singularst artrobitus sin q 4 hrs prnmucinex dm 1 tab po bid x 7 dayscovid testmonito r Health Concerns Section Related Observation LastModified by Organization Detai ls LastModified Time None Recorded Concern Status LastModified by Organization Details LastModified Time None Recorded Payers Encounter Date Sequence Insurance Name Policy Number Policy [employer] Covered Member ID Stanford Member ID Guarantor Name 02/09/2025 1 [facility] - DOS ON OR AFTER 2023 - MEDICARE ADVANTAGE [place] (MEDICARE REPLACEMENT/ADV ANTAGE - PPO) Renita Brandon [id number] Renita Brandon Notes Date Note Type Note Provider Name and Address Organization Details Recorded Time 02/09/2025 text/html Pt is seen today for an acute visit rounding visit. PMH: carotid artery stenosis, hld, htn, chf, anemia, gerd, bipolar dx, copd Renita is a 54 yo f, who underwent right carotid endarterectomy on November 22, 2024. Suffered unplanned carotid dissection and CVA with resultant left hemiplegia and dysphagia requiring NPO status with g-tube placed due to laryngeal edema post intubation. On exam, Renita reports slight congestion and cough occassionally for approx 1.5 weeks. She is scheduled for a swallow study test tomorrow. She has resumed her po diet and has not been on tube feedings for approx 2 weeks. She denies any loss of taste, chills, fevers, sore throat or other concerns. She is tolerating her po meds per nursing. Lungs clear. Left sided weakness, slight slurred speech, and droop remain. Labs drawn this am and pending. future plans: She reports she is doing well and plans to transfer to [facility] in [place] until she can get home again to her apartment. Jessica [place], ROLL CAPPER [address] [facility], [address], [place], [address], [facility] [employer] 02/09/2025 10:18:15 OBGyn Episode No OBEpisode recorded.
--- OUTSIDE RECORDS SUMMARY | 2025-02-10 07:08 | XMS_ITS | Encounter Summary ---
Author Organization [employer] Address [address] [facility] [address] [place] [address] Care Team Providers Care Adjunct English Instructor Name Role Phone Hilda Butt MD Primary Care Provider [phone] Reason for Visit * Reason Comments Med Refill Encounter Details Date Type Department Care Team ([facility] st Contact Info) Description 04/23/2023 Refill [facility] [address] [place], [place] [phone] Shamar Stevens FNP Bipolar II disorder (CMS/HCC) [...] documented as of this encounter Care Teams Adjunct English Instructor Relationship Specialty Start Date End Date Hilda Butt MD [address] [place] [address] PCP - General Family Medicine 06/20/22 documented as of this encounter
--- OUTSIDE RECORDS SUMMARY | 2025-02-10 07:08 | XMS_ITS | Encounter Summary ---
Author Organization [employer] Address [address] [facility] [address] [place] [address] Care Team Providers Care Spinning Room Worker Name Role Phone Hilda Butt MD Primary Care Provider [phone] Encounter Details Date Type Department Care Team ([facility] Contact Info) Description 09/21/2024 Orders Only [facility] MED[facility]INE [address] [place], [place] [phone] Hilda Butt MD [address] [place], [place] [phone] Social History Tobacco Use Types Packs/Day Years [...] documented as of this encounter Care Teams Spinning Room Worker Relationship Specialty Start Date End Date Hilda Butt MD [address] [place] [address] PCP - General Family Medicine 06/20/22 documented as of this encounter
--- OUTSIDE RECORDS SUMMARY | 2025-02-10 07:08 | XMS_ITS | Encounter Summary ---
Author Organization [employer] Address [address] [facility] [address] [place] [address] Care Team Providers Care Route Sales Trainee Name Role Phone Hilda Butt MD Primary Care Provider [phone] Encounter Details Date Type Department Care Team ([facility] Contact Info) Description 12/30/[address] [facility] MED[facility]INE [address] [place] [address] Hilda Butt MD [address] [place] [address] Low back pain at multiple sites (Primary [...] laterality documented in this encounter Care Teams Route Sales Trainee Relationship Specialty Start Date End Date Hilda Butt MD [address] [place] [address] PCP - General Family Medicine 06/20/22 documented as of this encounter
--- OUTSIDE RECORDS SUMMARY | 2025-02-10 07:08 | XMS_ITS | Encounter Summary ---
Author Organization [employer] Address [address] [facility] [address] [place] [address] Care Team Providers Care Perinatal Instructor Name Role Phone Hilda Butt MD Primary Care Provider [phone] Reason for Visit * Reason Onset Date Comments Med Refill 11/18/2024 Encounter Details Date Type Department Care Team ([facility] st Contact Info) Description 11/18/2024 Refill [facility] [address] [place], [place] [phone] Hilda Butt MD [address] [place] [address] Social History Tobacco Use Types Packs/Day Years [...] documented as of this encounter Care Teams Perinatal Instructor Relationship Specialty Start Date End Date Hilda Butt MD [address] [place] [address] PCP - General Family Medicine 06/20/22 documented as of this encounter
--- OUTSIDE RECORDS SUMMARY | 2025-02-10 07:08 | XMS_ITS | Encounter Summary ---
Author Organization [employer] Address [address] [facility] [address] [place] [address] Care Team Providers Care Dress Cap Maker Name Role Phone Hilda Butt MD Primary Care Provider [phone] Reason for Visit * Reason Onset Date Comments Med Refill 11/19/2024 Encounter Details Date Type Department Care Team ([facility] st Contact Info) Description 11/19/2024 Refill [facility]INE [address] [place], [place] [phone] Hilda Butt MD [address] [place], [place] [phone] Chronic obstructive pulmonary disease with acute exacerbation [...] documented as of this encounter Care Teams Dress Cap Maker Relationship Specialty Start Date End Date Hilda Butt MD [address] [place] [address] PCP - General Family Medicine 06/20/22 documented as of this encounter
--- OUTSIDE RECORDS SUMMARY | 2025-02-10 07:08 | XMS_ITS | Clinical Summary ---
Author Organization [employer] Address [address] [facility] [address] [place] [address] Care Team Providers Care Lead Data Entry Operator Name Role Phone Hilda Butt MD Primary Care Provider [phone] Allergies Active Allergy Reactions Criticality Noted Date Comments Lisinopril Cough High 06/13/2021 Medications ipratropium-albut vlad (Duo-Neb) 0.5-2.5 mg/3 mL nebulizer solution USE 3 ML VIA NEBULIZER EVERY 6 HOURS NEEDED FOR WHEEZING 3 Active aspirin (Aspirin Low Dose) 81 MG EC tablet Take 1 tablet (81 mg) by mouth Once per day. TAKE 1 TABLET BY MOUTH EVERY DAY 90 tablet 3 4 Active cetirizine (ZyrTEC) 10 MG tablet TAKE 1 TABLET BY MOUTH EVERY DAY 90 tablet 3 4 Active Entresto 24-26 MG tablet Take 1 tablet by mouth 2 times daily. 4 Active spironolactone (Aldactone) 25 MG tablet Take 1 tablet by mouth Once per day. 4 Active triamcinolone (Kenalog) 0.1 % cream APPLY A THIN LAYER TOPICALLY TO THE AFFECTED AREA(S) TWICE A DAY 454 g 1 4 Active lidocaine-priloca ine (Emla) 2.5-2.5 % cream APPLY TOPICALLY EVERY MORNING 100 g 3 4 Active fish oil (Norman-3) 500 MG capsule Take 1 capsule (500 mg) by mouth Once per day. 28 capsule 11 4 Active atorvastatin (Lipitor) 80 MG tablet TAKE ONE TABLET BY MOUTH EVERY MORNING ^1R1 90 tablet 3 4 Active sertraline (Zoloft) 50 MG tablet Take 1 tablet (50 mg) by mouth Once per day. 90 tablet 2 4 03/05/20 25 Active albuterol 108 (90 Base) MCG/ACT inhalerIndication s:Chronic obstructive pulmonary disease with acute exacerbation (CMS/HCC) Inhale 2 puffs every 4 (four) hours if needed for wheezing or shortness of breath. 18 g 11 4 Active Breztri Aerosphere 160-9-4.8 MCG/ACT aerosol Take 2 puffs by mouth 2 times daily. 4 Active fluticasone (Flonase Allergy Relief) 50 MCG/ACT nasal sprayIndications: Recurrent acute serous otitis media of right ear SPRAY 2 SPRAYS INTO EACH NOSTRIL TWICE A DAY 16 g 3 4 Active furosemide (Lasix) 20 MG tabletIndications :Lower extremity edema TAKE 1 TABLET BY MOUTH TWICE DAILY IN THE MORNING AND IN THE EVENING ^1R1,1R3 270 tablet 3 4 Active Ascorbic Acid (vitamin C) 250 MG tablet TAKE 1 TABLET BY MOUTH EACH MORNING WITH IRON ^1R1 90 tablet 3 4 Active Emollient (DermaPhor) ointmentIndicatio ns:Itchy skin of anus and genitals APPLY TO AFFECTED AREA(S) OF DRY SKIN NEEDED (BULK) 396 g 3 4 Active ibuprofen 800 MG tabletIndications :Neck pain TAKE ONE TABLET BY MOUTH EVERY 8 HOURS NEEDED FOR MILD OR MODERATE PAIN (VIAL) 90 tablet 1 4 Active Calcium + Vitamin D3 600-10 MG-MCG tablet TAKE ONE TABLET BY MOUTH TWICE A DAY ^1R1,1R4 360 tablet 4 Active ferrous sulfate (FeroSul) 325 (65 Fe) MG tablet TAKE ONE TABLET BY MOUTH EVERY OTHER DAY IN THE MORNING 45 tablet 3 4 Active montelukast (Singulair) 10 MG tablet Take 1 tablet (10 mg) by mouth at bedtime. 90 tablet 3 4 Active metoprolol succinate XL (Toprol-XL) 50 MG 24 hr tablet Take 1 tablet (50 mg) by mouth Once per day. Do not crush or chew. 90 tablet 3 4 09/21/20 25 Active Banophen 25 MG tablet 4 Active liver oil-zinc oxide (Desitin) 40 % ointment APPLY TOPICALLY TO RECTUM DAILY IF NEEDED FOR IRRITATION 113 g 3 5 Active cholecalciferol VITAMIN D (Vitamin D-3) 50 MCG (1999 UT) capsuleIndication s:Vitamin D deficiency TAKE ONE CAPSULE BY MOUTH EVERY MORNING ^1R1 30 capsule 5 5 Active Petrolatum 42 % ointment APPLY TOPICALLY TO AFFECTED AREAS NEEDED DAILY FOR DRY SKIN (BULK) 100 g 5 Active betamethasone valerate (Valisone) 0.1 % ointment APPLY TO AFFECTED AREA(S) OF FINGER SPARINGLY ONCE DAILY FOR 7-10 DAYS (BULK) 15 g 1 5 Active pantoprazole (ProtoNix) 40 MG EC tablet TAKE 1 TABLET BY MOUTH TWICE DAILY IN THE MORNING AND AT BEDTIME ^1R1,1R4 60 tablet 5 5 Active Active Problems Problem Noted Date Diagnosed Date Screening for cervical cancer 02/20/2024 Stenosis of both internal carotid arteries 01/22 Assessment & Plan (11/03/2024 8:18 AM EST): Followed by [facility] for this 12/2023 study 50-79% stenosis yeny, CTA 05/19 increased to 80-99% R side Will have R endarterectomy 11/22/24 Letter given for increased CNC LATHE PROGRAMMER 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 in post-op period ER precautions Assessment & Plan (06/11/2024 8:40 AM EDT): Followed by [facility] for this They have not [...] Plan (11/19/2023 11:17 AM EST): Referred to [facility] Urticarial rash 10/21/2023 Assessment [...] and results to Dr Ramirez, neurologist at [facility] regarding her sensation of pain and buzzing in the ears and head and whether it is related to history of vertebral artery dissection Assessment & Plan (02/24/2024 8:17 AM EDT): Unclear exactly what happened with neurologist Dr Rodrigues at [facility], she claims she was told she could not be seen at their practice and referred to [facility]. - recommend CT scan to evaluate dissection - see Dr Ramirez at [facility] Assessment & Plan (11/19/2023 11:22 AM EST): [...] & Plan (11/03/2024 8:20 AM EST): Had FLOWER GROWER-D placed by Dr Chen at [facility] 9. Dizziness and SOB had improved [...] & Plan (06/11/2024 8:46 AM EDT): Had FLOWER GROWER-D placed by Dr Chen at [facility] 9 Dizziness and SOB had improved immediately after placement, then worse again after COVID Supposed to undergo 24-32 weeks of cardiac rehab, went to 4 and then authorization I replaced the order today for ongoing cardiac rehabilitation, pt needs this to get stronger and more active safely Assessment & Plan (11/19/2023 11:21 AM EST): Had FLOWER GROWER-D placed by Dr Chen at [facility] 9. Dizziness and SOB had improved immediately after placement, then worse again after COVID Assessment & Plan (07/07/2023 9:11 AM EDT): Having FLOWER GROWER-D placed by Dr Chen at [facility] 9. Will evaluate SOB and other symptoms after that Assessment & Plan (11/13/2022 7:48 AM EST): EF 35% Followed by cardiology, Shannan Pinon at [facility] Carotid artery disease 11/08/2022 [...] patient about restarting mood stabilizer, Seroquel or Nadine Assessment & Plan (06/12/2023 10:05 AM EDT): [...] Incrusa quit smoking 5 years ago DEREJE blanc pulm referral to optimize mgmt Encounters Date Type Department Care Team Description 12/31/2024 Telephone [facility] [address] [place] [address] Hilda Butt MD No Show 12/08/2024 Refill [facility] [address] [place] [address] Hilda Butt MD Vitamin D deficiency 11/22/2024 Orders Only [facility] External Provider, [facility] 11/22/2024 Refill [facility] [address] [place] [address] Hilda Butt MD 11/19/2024 Refill [facility] [address] [place] [address] Hilda Butt MD 11/19/2024 Refill [facility] [address] [place] [address] Hilda Butt MD Chronic obstructive pulmonary disease with acute exacerbation (CMS/HCC) 11/18/2024 Refill [facility] [address] [place] [address] Hilda Butt MD 11/17/2024 Refill [facility] [address] [place] [address] Hilda Butt MD 11/17/2024 Refill [facility] [address] [place] [address] Hilda Butt MD 11/16/2024 Refill [facility] [address] [place] [address] Hilda Butt MD Vitamin D deficiency from Last 3 Months Immunizations Name Administration [...] WO CONTRAST Routine 11/22/2024 12:48 PM EST BI MAMMOGRAM DIAGNOSTIC TOMOSYNTHESIS BILATERAL [...] 2:00 PM EST) Only the most recent of4 resultswithin the time period is included. Anatomical Region Laterality Modality Chest Radiographic Sherrie ging 12/03/2024 2:00 PM EST Narrative 12/03/2024 2:20 PM EST ? [facility] ?[address] ?[place] [address] ?XRay Report ? Signed ? Patient: Renita Brandon ?MR#: [id number] ?? 4 ? : 1970 ?Acct:[id number] ? Age/Sex: 54 / F ?ADM Date: 11/22/24 ? Loc: HO.IMC ?457-1 ? Attending Dr: Dae De Anda MD ? Ordering Physician: Ike Babin MD ?? Date of Service: 12/03/24 ?? Procedure(s): XR chest 1V ?? Accession Number(s): [id number] ? cc: Ike Babin MD; Hilda Butt [...] DD/ 1400 ? TD/TT: 12/03/24 1403 ? Air Purifier Servicer: ? Procedure Note Milad, Image - 12/03/[address] [address] XRay Report Signed Patient: Renita BrandonMR#: [id number] 4 : 1970Acct:[id number] Age/Sex: 54 / FADM Date: 11/22/24 Loc: [facility] 457-[address]: Dae De Anda MD Ordering Physician: Ike Babin MD Date of Service: 12/03/24 Procedure(s): XR chest 1V Accession Number(s): [id number] cc: Ike Babin MD; Hilda Butt EXAMINATION: [...] 12/03/24 1418 DD/ 1400 TD/TT: 12/03/24 1403 Air Purifier Servicer: [facility] External Provider IMG XR PROCEDURES Final Result * Mr Brain w/ and w/o Contrast (11/30/2024 1:05 PM EST) Anatomical Region Laterality Modality Brain Magnetic Resonan ce 11/30/2024 1:05 PM EST Narrative 11/30/2024 2:57 PM EST ? [facility] ?[address] ?[place] [address] ? Magnetic Resonance Report ? Signed ? Patient: Renita Brandon ?MR#: [id number] ?? 4 ? : 1970 ?Acct:[id number] ? Age/Sex: 54 / F ?ADM Date: 11/22/24 ? Loc: HO.IMC ?453-1 ? Attending Dr: Dae De Anda MD ? Ordering Physician: Marychuy Son MD ?? Date of Service: 11/30/24 ?? Procedure(s): MR head/brain wo/w con ?? Accession Number(s): [id number] ? cc: Hilda Butt; Marychuy Son MD [...] 02:54 PM EST RP ? Dictated By: ?Jovita,Alhaji S MD ? Signed By: ?<Electronically signed by Alhaji S MD Jovita in OV> ?11/30/24 1454 ? DD/ 1305 ? TD/TT: 11/30/24 1350 ? Air Purifier Servicer: MSM ? Procedure Note Charlie Stinson - 11/30/[address] [address] Magnetic Resonance Report Signed Patient: Renita Brandon#: [id number] 4 : 1970Acct:[id number] Age/Sex: 54 / FADM Date: 11/22/24 Loc: .[facility] 453-[address]: Dae De Anda MD Ordering Physician: Marychuy Son MD Date of Service: 11/30/24 Procedure(s): MR head/brain wo/w con Accession Number(s): [id number] cc: Hilda Butt; Marychuy Son MD EXAMINATION: [...] Alhaji Hussein MD 11/30/2024 02:54 PM EST RP Dictated By: Alhaji Hussein MD Signed By: <Electronically signed by Alhaji Hussein MD in OV> 11/30/24 1454 DD/ 1305 TD/TT: 11/30/24 1350 Air Purifier Servicer: BRANDO [facility] External Provider IMG MRI PROCEDURES Final Result * CT Soft Tissue Neck w/ Contrast (11/25/2024 12:51 PM EST) Anatomical Region Laterality Modality Head, Neck Computed Tomogra phy 11/25/2024 12:5 1 PM EST Narrative 11/25/2024 2:03 PM EST ? [facility] ?[address] ?[place] [address] ? CT Scan Report ? Signed ? Patient: Brandon,Renita ?MR#: [id number] ?? 4 ? : 1970 ?Acct:[id number] ? Age/Sex: 54 / F ?ADM Date: 11/22/24 ? Loc: HO.ICU ?262-1 ? Attending Dr: Dae De Anda MD ? Ordering Physician: Marychuy Son MD ?? Date of Service: 11/25/24 ?? Procedure(s): CT soft tissue neck w IV con ?? Accession Number(s): [id number] ? cc: Hilda Butt; Marychuy Son MD ? Report Number: ?? [id number]: Total DLP = ??325.00 mGy-cm ?? EXAMINATION: [...] craniocaudad dimension. ?? -There has been some rastafari of enhancement/flow within the ?? proximal right [...] inferior right. The left is normal. ? Cup Setter Lockstitch Spaces: ?? -As described above. Otherwise normal. ? Imaged Intracranial Contents: ?? 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 right watershed parietal regions as well, with involvement of the right ?? basal ganglia and superior right temporal lobe. ?? -There has been development of approximately 4 mm of ojewt-dv-htgo ?? midline shift. There is effacement of [...] contrast. ? 2. There has been some rastafari of some degree of enhancement in the [...] DD/ 1251 ? TD/TT: 11/25/24 1317 ? Air Purifier Servicer: ? Procedure Note Milad, Image - 11/25/[address] [address] [address] Scan Report Signed Patient: Renita BrandonMR#: [id number] 4 : 1970Acct:[id number] Age/Sex: 54 / FADM Date: 11/22/24 Loc: HO.ICU 262-[address]: Dae De Anda MD Ordering Physician: Marychuy Son MD Date of Service: 11/25/24 Procedure(s): CT soft tissue neck w IV con Accession Number(s): [id number] cc: Hilda Butt; Marychuy Son MD Report Number: [id number]: Total DLP = 325.00 mGy-cm EXAMINATION: CT [...] in craniocaudad dimension. -There has been some rastafari of enhancement/flow within the proximal right ICA, [...] the inferior right. The left is normal. Cup Setter Lockstitch Spaces: -As described above. Otherwise normal. 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 -There has been development of approximately 4 mm of xxuzc-nm-hddh midline shift. There is effacement of the [...] of contrast. 2. There has been some rastafari of some degree of enhancement in the [...] Amauri Lopez MD 11/25/2024 02:00 PM EST Dictated By: Amauri Lopez MD Signed By: <Electronically signed by Amauri Lopez MD in OV> 11/25/24 1400 DD/ 1251 TD/TT: 11/25/24 1317 Air Purifier Servicer: [facility] External Provider IMG CT PROCEDURES Final Result * CTA Head Stroke w/ and w/o Contrast (11/22/2024 3:28 PM EST) Anatomical Region Laterality Modality Computed Tomogra phy 11/22/2024 3:28 PM EST Narrative 11/22/2024 4:44 PM EST ? [facility] ?[address] ?[place] [address] ? CT Scan Report ? Signed ? Patient: Brandon,Renita ?MR#: [id number] ?? 4 ? : 1970 ?Acct:[id number] ? Age/Sex: 54 / F ?ADM Date: 01/27/25 ? Loc: HO.ICU ?262-1 ? Attending Dr: Dae De Anda MD ? Ordering Physician: Marychuy Son MD ?? Date of Service: 11/22/24 ?? Procedure(s): CT angio head neck STROKE ?? Accession Number(s): [id number] ? cc: Hilda Butt; Marychuy Son MD ? Report Number: ?? [id number]: Total DLP = 1486.00 mGy-cm ?? EXAMINATION: [...] segment. Normal ?? opacification of the distal CNC LATHE PROGRAMMER segments. ?? -LEFT POSTERIOR CEREBRAL ARTERY: Normal P1 segment. Normal ?? opacification of the distal CNC LATHE PROGRAMMER segments. ?? -POSTERIOR COMMUNICATING ARTERIES: The right [...] discussed with Dr. Marychuy Son of the [place] ICU via phone call ?? at 4:19 PM, 11/22/2024. ? Electronically signed by: ??Amauri Lopez MD ??11/22/2024 04:42 PM EST RP ? Dictated By: ?Amauri Lopez MD ? Signed By: ?<Electronically signed by Amauri Lopez MD in OV> ?11/22/24 1642 ? DD/ 1528 ? TD/TT: 11/22/24 1605 ? Air Purifier Servicer: ? Procedure Note Charlie Stinson - 11/22/[address] [place] [address] [address] Scan Report Signed Patient: Renita BrandonMR#: [id number] 4 : 1970Acct:[id number] Age/Sex: 54 / FADM Date: 11/22/24 Loc: HO.ICU 262-[address]: Dae De Anda MD Ordering Physician: Marychuy Son MD Date of Service: 11/22/24 Procedure(s): CT angio head neck STROKE Accession Number(s): [id number] cc: Hilda Butt; Marychuy Son MD Report Number: [id number]: Total DLP = 1486.00 mGy-cm EXAMINATION: CT [...] obtained. The data was processed at the technologist development's workstation for generation of MIP sequences. Angled [...] P1 segment. Normal opacification of the distal CNC LATHE PROGRAMMER segments. -LEFT POSTERIOR CEREBRAL ARTERY: Normal P1 segment. Normal opacification of the distal CNC LATHE PROGRAMMER segments. -POSTERIOR COMMUNICATING ARTERIES: The right is [...] discussed with Dr. Marychuy Son of the [place] ICU via phone call at 4:19 PM, 11/22/2024. Electronically signed by: Amauri Lopez MD 11/22/2024 04:42 PM EST Dictated By: Amauri Lopez MD Signed By: <Electronically signed by Amauri Lopez MD in OV> 11/22/24 1642 DD/ 1528 TD/TT: 11/22/24 1605 Air Purifier Servicer: [facility] External Provider IMG CT PROCEDURES Final Result * CT Head Stroke w/o Contrast (11/22/2024 12:48 PM EST) Anatomical Region Laterality Modality Computed Tomogra phy 11/22/2024 12:4 8 PM EST Narrative 11/22/2024 1:29 PM EST ? [facility] ?[address] ?[place] [address] ? CT Scan Report ? Signed ? Patient: Brandon,Renita ?MR#: [id number] ?? 4 ? : 1970 ?Acct:[id number] ? Age/Sex: 54 / F ?ADM Date: 11/22/24 ? Loc: HO.ICU ?262-1 ? Attending Dr: Dae De Anda MD ? Ordering Physician: Dae De Anda MD ?? Date of Service: 11/22/24 ?? Procedure(s): CT head for STROKE ?? Accession Number(s): [id number] ? cc: Hilda Butt; Dae De Anda MD ? Report Number: ?? [id number]: Total DLP = ??821.00 mGy-cm ?? EXAMINATION: [...] Lopez MD ??11/22/2024 01:26 PM EST RP ? Dictated By: ?Amauri Lopez MD ? Signed By: ?<Electronically signed by Amauri Loepz MD in OV> ?11/22/24 1326 ? DD/ 1248 ? TD/TT: 11/22/24 1255 ? Air Purifier Servicer: ? Procedure Note Donotberniceinterpreter, Image - 11/22/[address] [place] [address] [address] Scan Report Signed Patient: Renita BrandonMR#: [id number] 4 : 1970Acct:[id number] Age/Sex: 54 / FADM Date: 11/22/24 Loc: [facility] 262-[address]: Dae De Anda MD Ordering Physician: Dae De Anda MD Date of Service: 11/22/24 Procedure(s): CT head for STROKE Accession Number(s): [id number] cc: Hilda Butt; Dae De Anda MD Report Number: [id number]: Total DLP = 821.00 mGy-cm EXAMINATION: CT [...] by: Amauri Lopez MD 11/22/2024 01:26 PM [facility] Dictated By: Amauri Lopez MD Signed By: <Electronically signed by Amauri Lopez MD in OV> 11/22/24 1326 DD/ 1248 TD/TT: 11/22/24 1255 Air Purifier Servicer: [facility] External Provider IMG CT PROCEDURES Final Result * BI Mammogram Diagnostic Tomosynthesis Bilateral (07/15/2024 10:45 AM EDT) Anatomical Region Laterality Modality Breast Bilateral Mammography 07/15/2024 10:4 5 AM EDT Narrative 07/15/2024 12:02 PM EDT ? [facility] ? [address] ?[place] [address] ? Mammography Report ? Signed ? Patient: Brandon,Renita ?MR#: [id number] ?? 4 ? : 1970 ?Acct:[id number] ? Age/Sex: 53 / F ?ADM Date: 09/19/24 ? Loc: HO.MAMMO ? Attending Dr: Hilda Butt MD ? Ordering Physician: Hilda Butt ?Results: 2Benign F ?? indings ? Date of Service: 07/15/24 ?Follow Up: 1 Year From Orig ?? inal Mammogram ? Procedure(s): MM tomosynthesis diagnostic BI ?? Accession Number(s): [id number] ? cc: Hilda Butt ? EXAMINATION: ?? MM DIAGNOSTIC DIGITAL BREAST TOMOSYNTHESIS, BILATERAL ? CLINICAL INFORMATION: ? 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 Recent benign left stereotactic biopsy ?? upper outer left breast 10/10/2022. Patient due for yearly. ? COMPARISON: ?? Mammography: 07/14/2023, 08/28/2022, 01/14/2022, 11/26/2021, 12/25/2017, ?? and dating back to 2016. Stereotactic biopsy left breast 10/10/2022, ?? and [...] DD/ 1045 ? TD/TT: 07/15/24 1119 ? Air Purifier Servicer: ? Procedure Note Charlie Stinson - 07/15/2024 [facility] [address] [place] [address] Dr. Li, [place] [address] Mammography Report Signed Patient: Renita Brandon#: [id number] 4 : 1970Acct:[id number] Age/Sex: 53 / FADM Date: 07/15/24 Loc: HO.MAMMO Attending Dr: Hilda Butt MD Ordering Physician: Sunil Buttults: 2Benign F indings Date of Service: 07/15/24Follow Up: 1 Year From Orig ina Mammogram Procedure(s): MM tomosynthesis diagnostic BI Accession Number(s): [id number] cc: Hilda Butt EXAMINATION: MM DIAGNOSTIC DIGITAL BREAST TOMOSYNTHESIS, BILATERAL CLINICAL INFORMATION: Postoperative protocol year 2 status post excision left IDC with conservation therapy Feb, 2022. Recent benign left stereotactic biopsy upper outer left breast 10/10/2022. Patient due for yearly. COMPARISON: Mammography: 07/14/2023, 08/28/2022, 01/14/2022, 11/26/2021, 12/25/2017, and dating back to 2016. Stereotactic biopsy left breast 10/10/2022, and 03/07/2022. [...] Amauri Lopez MD 07/15/2024 11:58 AM EDT RP Dictated By: Amauri Lopez MD Signed By: <Electronically signed by Amauri Lopez MD in OV> 07/15/24 1158 DD/ 1045 TD/TT: 07/15/24 1119 Air Purifier Servicer: Hilda Butt MD IMG BI PROCEDURES Final Result * HPV mRNA E6/E7 w/Reflex to HPV Genotypes 16, 18/45 (02/20/2024 12:12 PM EDT) HPV nRNA E6/E7 Not Detected Not Detected [facility] Comment:Methodology: Transcr iption-Mediated AmplificationThis assay detects E6/E7 viral messenger RNA (mRNA) from 14high-risk HPV types (16,18,31,33,35,39,45,51,52,56,58,59,66,68).Cervical sources are required for HPV testing.If a vaginal source from a patient who has had atotal hysterectomy with removal of cervix wassubmitted, please contact the testing laboratoryfor alternative testing options.For additional information, please refer tohttp://education.Blackwave/faq/EYN081t5(This link if provided for information/educational purposes only.)THIS TEST WAS PERFORMED AT:[employer] [place] [id number] GARCIA MD HPV mRNA E6/E7 [facility] HPV 16 RNA [facility] HPV 18/45 RNA [facility] 02/20/2024 12:1 2 PM EDT 02/24/2024 7:30 AM EDT Hilda Butt MD LAB CYTOLOGY ORDERABLES Final Result [facility] [address] [place] [address] [phone] * Pap Smear (02/20/2024 12:12 PM EDT) 02/20/2024 12:1 2 PM EDT 02/24/2024 7:30 AM EDT Kody [facility] - 03/13/2024 5:52 PM EDT ----- ------- Name: Renita Brandon ?Age/Sex: 53/F ? : 1970 Unit#: [id number] ?? Attend Dr: Hilda Butt ?Re02/20/24 ?Status: DEP REF ? Location: HO.LNP ?Disch: ? ----- ------- SPEC : [id number] ? RECD: 02/24/24-729 ? STATUS: ??SOUT ? REQ NUM: [id number] ? ANNE: 02/20/24-2 ? SUBM DR: Hilda Butt ? ENTERED: [...] 66, 68) ? HPV testing performed by [facility], [place], [place]. ??See reference laboratory ?? portion of the EMR for entire report. ?Clinical Information LMP: Postmenopausal Previous PAP test: 2019, NILM Other surgery:Hysterectomy, cervical sparing in 2021 for fibroids Other history: No prior abnormal ? Material Received ?? ThinPrep-Cervical ----- ------- Signed (signature on file) Amparo Martinez 03/13/24 1752 ? ----- ------- ? END OF REPORT ? Hilda Butt MD LAB CYTOLOGY ORDERABLES Final Result Performing Organization Address City/[facility]/ZIP Co de Phone Number [facility] [address] [place] [phone] * HEPATITIS C AB W/REFL TO HCV RNA, QN, PCR (05/09/2022 4:02 PM EDT) HEPATITIS C ANTIBODY NON-REACT KRISTIN NON-REACT KRISTIN [facility] INDEX 0.08 <1.00 [facility] Comment: ?? HCV antibody was non-reactive. There is no laboratory ?? evidence of HCV infection. ?? In most cases, no further action is required. However, if recent HCV exposure is suspected, a test for HCV RNA (test code 71704) is suggested. ?? For additional information please refer to http://education.Blackwave/faq/TED92b5 (This link is being provided for informational/ educational purposes only.) ?? 05/09/2022 4:02 PM EDT Tara PIERREP HISTORICAL/NON ORDERABLE LABS Final Result [facility] [address] [place], [place] [address] * HIV 1/2 ANTIGEN/ANTIBODY,FOURTH GENERATION W/RFL (05/09/2022 4:02 PM EDT) Pathologist [facility] HIV-1/2 ANTIGEN AND ANTIBODIES, 4TH GENERATION W/ REFLEX NON-REACT KRISTIN NON-REACT KRISTIN [facility] Comment: HIV-1 antigen and HIV-1/HIV-2 [...] ? For additional information please refer to http://education.Blackwave/faq/EPW156 (This link is being provided for informational/ educational purposes only.) ? The performance of this assay has not been clinically validated in patients less than 2 years old. ?? 05/09/2022 4:02 PM EDT us Tara Paniagua [facility] LAB BLOOD ORDERABLES Final Res ult [facility] [address] * (ABNORMAL) LIPID PANEL, STANDARD (03/29/2022 3:50 PM EDT) Pathologist [facility] Chol/HDLC Ratio 5.3(H) <5.0 (calc) [facility] [...] the ?? estimation of LDL-C. ?? Kirk SS et al. RUTH. 2013;310(19): 4099-2079 ?? (http://education.SmartStart/faq/JPR862) Non-HDL Cholesterol 166(H) <130 mg/dL (calc) [facility] [...] ?? 03/29/2022 3:50 PM EDT Tara Paniagua [facility] LAB BLOOD ORDERABLES Final Res ult [facility] [address] from Last 3 Months or Most Recently Relevant to Health Maintenance Insurance [facility] Care Teams Lead Data Entry Operator Relationship Specialty Start Date End Date Hilda Butt MD [address] [place] [id number] PCP - General Family Medicine 06/20/22
--- OUTSIDE RECORDS SUMMARY | 2025-02-10 07:08 | XMS_ITS | Encounter Summary ---
Author Organization [employer] Address [address] [place] [address] Care Team Providers Care Line Maintenance Name Role Phone Hilda Butt MD Primary Care Provider [phone] Reason for Visit * Reason Onset Date Comments Med Refill 03/01/2024 Encounter Details Date Type Department Care Team ([facility] st Contact Info) Description 03/01/2024 Refill [facility] MEDICINE [address] [place], [place] [phone] Hilda Butt MD [address] [place], [place] [phone] Itchy skin of anus and genitals; Recurrent [...] documented as of this encounter Care Teams Line Maintenance Relationship Specialty Start Date End Date Hilda Butt MD [address] [place] [address] PCP - General Family Medicine 06/20/22 documented as of this encounter
--- OUTSIDE RECORDS SUMMARY | 2025-02-10 07:08 | XMS_ITS | Encounter Summary ---
Author Organization [email or web address] Address [address] [place] [address] Care Team Providers Care Retail Chain Store Area Supervisor Name Role Phone Hilda Butt MD Primary Care Provider [phone] Reason for Visit * Reason Onset Date Comments Med Refill 02/25/2024 Encounter Details Date Type Department Care Team ([facility] st Contact Info) Description 02/25/2024 Refill [facility] MED[facility]INE [address] [place], [place] [phone] Hilda Butt MD [address] [place], [place] [phone] Itchy skin of anus and genitals; Recurrent [...] as of this encounter Care Teams Retail Chain Store Area Supervisor Relationship Specialty Start Date End Date Hilda Butt MD [address] [place] [address] PCP - General Family Medicine 06/20/22 documented as of this encounter
--- OUTSIDE RECORDS SUMMARY | 2025-02-10 07:08 | XMS_ITS | Encounter Summary ---
Author Organization [employer] Address [address] [place] [address] Care Team Providers Care Pastry Sous Chef Name Role Phone Hilda Butt MD Primary Care Provider [phone] Reason for Visit * Reason Onset Date Comments Med Refill 11/17/2024 Encounter Details Date Type Department Care Team ([facility] st Contact Info) Description 11/17/2024 Refill [facility] MEDICINE [address] [place], [place] [phone] Hilda Butt MD [address] [place], [place] [phone] Social History Tobacco Use Types Packs/Day Years [...] Pressure 142/86( 025 2:15 PM EST) No Daira Cardoso, PharmD documented as of this encounter Visit Diagnoses Not on filedocumented in this encounter Additional Health Concerns Assessment Noted Time PHQ-9 Depression Total Score: 0 11/17/19 24 10:34 AM EST documented as of this encounter Care Teams Pastry Sous Chef Relationship Specialty Start Date End Date Hilda Butt MD [address] [place] [address] PCP - General Family Medicine 06/20/22 documented as of this encounter
--- OUTSIDE RECORDS SUMMARY | 2025-02-10 07:08 | XMS_ITS | Encounter Summary ---
Author Organization [employer] Address [address] [place] [address] Care Team Providers Care Analytics Analyst Name Role Phone Hilda Butt MD Primary Care Provider [phone] Reason for Visit * Reason Onset Date Comments Med Refill 05/25/2024 Encounter Details Date Type Department Care Team ([facility] st Contact Info) Description 05/25/[address] [facility] MED & PEDS [address] [place], [place] [phone] Hilda Butt MD [address] [place] [address] Social History Tobacco Use Types Packs/Day Years [...] documented as of this encounter Care Teams Analytics Analyst Relationship Specialty Start Date End Date Hilda Butt MD [address] [place] [address] PCP - General Family Medicine 06/20/22 documented as of this encounter
--- OUTSIDE RECORDS SUMMARY | 2025-02-10 07:08 | XMS_ITS | Encounter Summary ---
Author Organization [employer] Address [address] [place] [address] Care Team Providers Care Autocad Operator Name Role Phone Hilda Butt MD Primary Care Provider [phone] Reason for Visit * Reason Comments Med Refill Encounter Details Date Type Department Care Team ([facility] st Contact Info) Description 11/16/2024 Refill [facility] MEDICINE [address] [place], [place] [phone] Hilda Butt MD [address] [place], [place] [phone] Vitamin D deficiency Social History Tobacco Use [...] documented as of this encounter Care Teams Autocad Operator Relationship Specialty Start Date End Date Hilda Butt MD [address] [place] [address] PCP - General Family Medicine 06/20/22 documented as of this encounter
--- OUTSIDE RECORDS SUMMARY | 2025-02-10 07:08 | XMS_ITS | Encounter Summary ---
Author Organization [email or web address] Address [address] [place] [address] Care Team Providers Care Internet Sales Consultant Name Role Phone Hilda Butt MD Primary Care Provider [phone] Encounter Details Date Type Department Care Team ([facility] st Contact Info) Description 11/05/2024 Orders Only [facility] MEDICINE [address] [place], [place] [phone] Hilda Butt MD [address] [place], [place] [phone] Social History Tobacco Use Types Packs/Day Years [...] documented as of this encounter Care Teams Internet Sales Consultant Relationship Specialty Start Date End Date Hilda Butt MD [address] [place] [address] PCP - General Family Medicine 06/20/22 documented as of this encounter
--- OUTSIDE RECORDS SUMMARY | 2025-02-10 07:08 | XMS_ITS | Encounter Summary ---
Author Organization [employer] Address [address] [place] [address] Care Team Providers Care Golf Range Attendant Name Role Phone Hilda Butt MD Primary Care Provider [phone] Reason for Visit * Reason Onset Date Comments Med Refill 08/20/2024 Encounter Details Date Type Department Care Team ([facility] st Contact Info) Description 08/20/2024 Refill [facility] MED [facility] PEDS [address] [place], [place] [phone] Hilda Butt MD [address] [place] [address] Social History Tobacco Use Types Packs/Day Years [...] documented as of this encounter Care Teams Golf Range Attendant Relationship Specialty Start Date End Date Hilda Butt MD [address] [place] [address] PCP - General Family Medicine 06/20/22 documented as of this encounter
--- OUTSIDE RECORDS SUMMARY | 2025-02-10 07:09 | XMS_ITS | Clinical Summary ---
Author Organization [facility] Address [address] [place] [address] Care Team Providers Care Cheese Weigher Name Role Phone Hilda Butt MD Primary Care Provider + Char Juarez MD Unavailable [phone] Allergies No known active allergies Medications lidocaine (LIDODERM) 5 % patch Place 1 [...] or 4 hours after acid reducers. Active fluticasone-sean meterol (ADVAIR HFA) 115-21 MCG/ACT inhaler Inhale 2 [...] mouth daily. Active gabapentin (NEURONTIN) 300 MG capsuleIndicati ons:Vertebral artery dissection Take 1 capsule (300 mg total) by mouth 3 (three) times a day. 90 capsule 01/23/2023 Active metoCLOPRAMIDE (REGLAN) 5 MG/ML injectionIndica tions:Vertebral artery dissection Infuse 2 mL (10 mg total) into a venous catheter 4 times daily (every 6 hours) as needed for nausea or vomiting. 2 mL 01/23/2023 Active acetaminophen (TYLENOL) 325 MG tabletIndicatio ns:Vertebral artery dissection Take 2 tablets (650 mg total) by mouth 4 times daily (every 6 hours) as needed for mild pain, moderate pain or headaches. 01/23/2023 Active polyethylene glycol (miraLAx) 17 g packetIndicatio ns:Vertebral artery dissection Take 1 packet (17 g total) by mouth daily. 30 packet 01/23/2023 Active aspirin enteric coated 81 MG EC tabletIndicatio ns:Vertebral artery dissection Take 1 tablet (81 mg [...] place to sleep or slept in a senior care (including now)? No 01/17/2023 Comments Unknown Sex and Gender Information Value Date Recorded Sex Assigned at Female 01/24/2023 9:44 AM EDT Legal Sex Female 5:51 PM EDT Gender Identity Female 01/24/2023 9:44 AM [...] , 07/31/2021, Additional history exists COVID-19 Vaccine (5 - 2023-2 5 season) 2024 11/08/2022, 07/30/2022, 08/27/2021, Additional history exists HIV Screening Completed 05/09/2022 Chronic Controlled Substance User PDMP Review Discontinued 01/15/2023 Insurance MEDICAID OUT OF STATE 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 [place] [id number] [facility] [place] [place] MEDICARE OUT OF [facility] Advance Directives * Full Code (Latest Code Status on File) Date Activated Date Inactivated Comments 01/16/2023 4:08 AM Question Answer Comments Decision Thoroughly Discussed with: Patient Care Teams Cheese Weigher Relationship Specialty Start Date End Date Hilda Butt MD [address] [place] [address] PCP - General General Medicine 01/16/23 Char Juarez MD [address] [place] [address] 01/16/23
--- OUTSIDE RECORDS SUMMARY | 2025-02-10 07:09 | XMS_ITS | Encounter Summary ---
Author Organization [employer] Address [address] [place] [address] Care Team Providers Care Fancy Stitcher Name Role Phone Hilda Butt MD Primary Care Provider [phone] Reason for Visit * Reason Onset Date Comments Med Refill 10/16/2023 Encounter Details Date Type Department Care Team ([facility] Contact Info) Description 10/16/2023 Refill 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 MED & PEDS [address] [place], [place] [phone] Hilda Butt MD [address] [place] [address] Social History Tobacco Use Types Packs/Day Years [...] documented as of this encounter Care Teams Fancy Stitcher Relationship Specialty Start Date End Date Hilda Butt MD [address] [place] [address] PCP - General Family Medicine 06/20/22 documented as of this encounter
--- OUTSIDE RECORDS SUMMARY | 2025-02-10 07:09 | XMS_ITS | Data Portability ---
Author Organization [facility], Main Office Address [address] , [address] [place] [address] Care Team Providers Care Intelligence Clerk Name Role Phone LINDA GOFF - 4TH FLOOR OTHER FRANNIE ARSHAD Primary Care Provider [phone] Assessment No assessment recorded. Plan of Treatment [...] and Address Organization Details Recorded Time Dysphagia 38367745 Active 2024 Jessica [place] NP [address] , [address], [place], [address], [facility] 5 15:19:53 Left hemiplegia 439814327 Active 2024 Jessica [place] NP [address] , [address], [place], [address], [facility] [employer] 5 15:20:52 Cerebrovascula r accident 746883041 Active 2024 Jessica [place] NP [address], [address], [place], [address], [facility] 5 15:20:58 Carotid artery stenosis 86795158 Active 2024 Jessica [place] NP [address], [address], [place], [address], [facility] 5 15:22:09 Congestive heart failure 60112535 Active 2024 Jessica [place] NP [address], [address], [place], [address], [facility] 5 15:22:17 Chronic obstructive pulmonary disease 94324849 Active 2024 Jessica [place] NP [address], [address], [place], [address], [facility] 5 15:22:23 Automatic implantable cardiac defibrillator in situ 390618802 Active 2024 Jessica [place] NP [address], [address], [place], [address], [facility] 5 15:22:38 Bipolar disorder 13311335 Active 2024 Jessica [place] NP [address], [address], [place], [address], [facility] 5 15:22:46 Hypoxia 018703930 Active 2024 Jessica [place] NP [address], [address], [place], [address], [facility] 5 15:24:15 Hypertensive disorder 96853166 Active 2024 Jessica [place] NP [address], [address], [place], [address], [facility] 5 15:24:34 Hyperlipidemia 24067801 Active 2024 Jessica [place] NP [address], [address], [place], [address], [facility] 5 15:24:44 Anemia 518021170 Active 2024 Jessica [place] NP [address], [address], [place], [address], [facility] 5 15:40:32 Gastroesophage al reflux disease 612213622 Active 2024 Jessica [place] NP [address], [address], [place], [address], [facility] 5 15:45:51 Problem Notes None recorded. Medical Equipment None Reported. Allergies Allergen ID Allergen Name Allergen Category Reaction Reaction Severity Criticality Documentation Date Start Date Code Code System Note Provider Name and Address Organization Details Recorded Time 59172 lisinopri l medicatio n other Not available unabletoasse 12/09/2024 01229 RxNorm unkno wn Not Available Not Available Not Available Medications Not known to be on any medication Vitals Date Recorded Body weight Heart rate Respiratory rate Body temperature Oxygen saturation Oxygen saturation in Arterial blood by Pulse oximetry Systolic blood pressure Diastolic blood pressure Provider Name and Address Organization Details Last Updated DateTime 5 98582.3 g 74 /min 18 /min 98 [degF] 98 % 98 % 119 mm[Hg] 71 mm[Hg] Jessica aTylor NP [address], [address] , [facility] 5 09:18:46 Date Recorded Body weight Heart rate Respiratory rate Body temperature Oxygen saturation Oxygen saturation in Arterial blood by Pulse oximetry Systolic blood pressure Diastolic blood pressure Provider Name and Address Organization Details Last Updated DateTime 5 06056.3 g 74 /min 18 /min 98 [degF] 98 % 98 % 119 mm[Hg] 71 mm[Hg] Jessica [place] NP [address], [address] , [facility] 5 10:38:26 Date Recorded Body weight Heart rate Respiratory rate Body temperature Oxygen saturation Oxygen saturation in Arterial blood by Pulse oximetry Systolic blood pressure Diastolic blood pressure Provider Name and Address Organization Details Last Updated DateTime 5 29726.4 9 g 74 /min 18 /min 98 [degF] 98 % 98 % 119 mm[Hg] 71 mm[Hg] Jessica [place] NP [address], [address] , [facility] 5 11:30:30 Date Recorded Body weight Heart rate Respiratory rate Body temperature Oxygen saturation Oxygen saturation in Arterial blood by Pulse oximetry Systolic blood pressure Diastolic blood pressure Provider Name and Address Organization Details Last Updated DateTime 5 44714.4 9 g 74 /min 18 /min 98 [degF] 98 % 98 % 119 mm[Hg] 71 mm[Hg] Jessica [place] NP [address] [facility], [address], [place], [address], [facility] 5 11:18:26 Date Recorded Body weight Heart rate Respiratory rate Body temperature Oxygen saturation Oxygen saturation in Arterial blood by Pulse oximetry Systolic blood pressure Diastolic blood pressure Provider Name and Address Organization Details Last Updated DateTime 5 61033.4 9 g 91 /min 16 /min 98 [degF] 98 % 98 % 137 mm[Hg] 92 mm[Hg] Jessica [place] NP [address] [facility], [address], [place], [address], [facility] 5 09:59:58 Social History Question Answer Notes LastModified by Organizat ion Details LastModified Time Tobacco Smoking Status Former Smoker Jessica [place] NP [address] [facility], [address], [place], [address], [facility] 12/09/2024 15:31:49 Do You Have An [...] unspecified formulation 4 completed Rossi Celaya null, [facility] 12/09/2024 15:28:00 Hep B, unspecified formulation 4 completed Rossi Yomi null, [facility] 12/09/2024 15:28:09 Hep B, unspecified formulation 4 completed Rossi Yomi null, [facility] 12/09/2024 15:28:17 Tdap 4 completed Rossi Yomi null, [facility] 12/09/2024 15:29:05 Tdap 4 completed Rossi Yomi null, [facility] 12/09/2024 15:29:14 Pneumococcal conjugate PCV 13 4 completed Rossi Celaya null, [facility] 12/09/2024 15:29:28 pneumococcal polysaccharide PPV23 1 completed Rossi Celaya null, [facility] 12/09/2024 15:29:45 influenza, unspecified formulation 3 completed Rossi Yomi null, [facility] 12/09/2024 15:30:08 influenza, unspecified formulation 4 completed Rossi Yomi null, [facility] 12/09/2024 15:30:14 Hep A, unspecified formulation 4 completed Rossi Yomi null, [facility] 12/09/2024 15:30:29 Hep A, unspecified formulation 4 completed Rossi Yomi null, [facility] 12/09/2024 15:30:37 SARS-COV-2 (COVID-19) vaccine, UNSPECIFIED 1 completed Rossi Yomi null, [facility] 12/09/2024 15:31:01 SARS-COV-2 (COVID-19) vaccine, UNSPECIFIED 2 completed Rossi Yomi null, [facility] 12/09/2024 15:31:08 SARS-COV-2 (COVID-19) vaccine, UNSPECIFIED 3 completed Rossi Celaya null, [facility] 12/09/2024 15:31:17 SARS-COV-2 (COVID-19) vaccine, UNSPECIFIED 4 completed Rossi Celaya [facility] 12/09/2024 15:31:25 zoster, unspecified formulation 2 completed Rossi Celaya [facility] 12/09/2024 15:31:41 zoster, unspecified formulation 2 completed Rossiiesha Celaya [facility] 12/09/2024 15:31:51 Past Encounters Encounter ID Performer Location Encounter Start Date Encounter Closed Date Diagnosis/Indication Diagnosis SNOMED-CT Code Diagnosis ICD10 Code Diagnosis Note [id number] Jessica [place] NP [address] [address] 12/09/2024 15:03:43 12/10/2024 13:27:31 Carotid artery stenosis 32934358 I65.29 sp right carotid endarterec jaida, performed on 11/22/24. She suffered a right carotid dissection , hematoma, as well as a CVA, which left her with left sided hemiplegia and dysphagia now on tube feedsmonit or s/s of infectionv itals qd x 2 weeksbmp and cbc weekly x 3 weeks Cerebrovas cular accident 993832306 I63.9 sp right carotid endarterec jaida, performed on 11/22/24. She suffered a right carotid dissection , hematoma, as well as a CVA, which left her with left sided hemiplegia and dysphagia now on tube feedsPT OT eval and treatsuppo rtive careturn and position freqmonito r Left hemiplegia 01055391 8 G81.90 see above Dysphagia 60657334 R13.1 0 NPOmeds through g tubegoal:J evity [...] gtube here.dieti aleshia to followmoni tor Hypoxia 863326893 G47.34 Pt with intubation rt hypoxia now resolvedmo nitor for sequelae Congestive heart failure 02302075 I50.9 chffurosem rashad 20 mg po qdmonitor bmp and s/s of Chronic ob structive pulmonary disease 67825679 J44.9 hx montelukas t 10 mg po qhscetiriz ine 10 mg po qd prnalbuter ol inhaler 2 inh q 6 hrs prn sobmonitor Automatic implantable cardiac defibrillator in situ 196003281 Z95.810 has cad with cath in past with LBBB and states pacemaker and defibrilla tor in hxmonitor Hypertensive disorder 38 475620 I10 amiodarone 400 mg po bid x 7days, then 200 mg po qd for 21 days, then stopentres to 24-36 po bidmetopro lol succinate 50 mg po qdspirolac tone 25 mg po qdmonitor Anemia 776863391 D64.9 hx offerrous sulfate 325 mgpo qd with vit c qdmonitor cbc and for s/s of bleeding Hyperlipidemia 62899098 E78.5 asa 81 mg qdatorvast atin 80 mg qhsentrest o 24-36 po bidmonitor Bipolar disorder 7925425 4 F31.9 hx ofsertrali ne 50 mg qdmonitor [id number] Benjamin Kim MD [address] [address] 12/13/2024 08:52:27 12/14/2024 15:40:23 Unsteady when walking 35826846 R26.89 PT OT eval and treatto determine baseline Carotid ar jonas stenosis 28645195 I65.21 see HPIright carotid endarterec jaida last OctoberSu fered carotid dissection and CVA with resultant left hemiplegia and dysphagia requiring patient to be NPO with g-tube placedlipi tor 80 mg qdasa 81 mg qdupdate surgery with concerns Cerebrovas cular accident 980933327 I63.031 resultant left hemiplegia and dysphagiaP T OT eval and treatmonit or for improvemen t in function Left hemiplegia 73864796 8 G81.04 see above Dysphagia 79842021 I69.3 91 currently NPOg-tube dependents peech and dietary to followcont inue tube feeds Hypoxia 184663668 G47.34 Pt with intubation rt hypoxia now resolvedmo nitor for sequelae Congestive heart failure 65953394 I50.22 lasix 20 mg qdentresto 24-26 mg bidmonitor respirator y and fluid status Chronic ob structive pulmonary disease 53763506 J41.1 carrying dxcontinue out patient medsmonito r respirator y status and albuterol utilizatio n Automatic implantable cardiac defibrillator in situ 282225292 Z95.810 currently maintained onamiodaro ne taper, hx LBBBknown cad continued on asa, statin, and beta yamini Hypertensive disorder 38 280017 I10 entresto 24-36 po bidmetopro lol 50 mg po qdlasix 20 mg qdspirolac tone 25 mg po qdmonitor bp and need to titrate Anemia 349820182 D50.8 monitor cbciron studies prncontinu e supplement s Bipolar disorder 1549388 4 F31.89 carrying dx added to PMHzoloft 50 mg qdmonitor sxpsych eval prn Coronary arteriosclerosis 17067289 I25.10 lipitor 80 mg qdasa 81 mg qdmetoprol ol 50 mg qdmonitor sx [id number] Jessica [place] [facility] [address] 12/16/2024 10:30:08 12/17/2024 16:22:16 Carotid artery stenosis 17878366 I65.29 sp right carotid endarterec jaida, performed on 11/22/24. She suffered a right carotid dissection , hematoma, as well as a CVA, which left her with left sided hemiplegia and dysphagia on tube feedscontm onitor s/s of infection, steri strips no offvitals qd x 2 weeksfu with surgery prnbmp and cbc weekly x 3 weeks Cerebrovas cular accident 277784454 I63.9 sp right carotid endarterec jaida, performed on 11/22/24.Sh e suffered a right carotid dissection , hematoma, as well as a CVA, which left her with left sided hemiplegia and dysphagia on tube feedsPT OT eval and treatsuppo rtive careturn and position freqassist jon with adlsmonito r Left hemiplegia 16058062 8 G81.94 see above Dysphagia 06821517 R13.1 0 NPOmeds through g tubecont g tube feedingsdi etician to eval and change feedings when jevity 1.0 kcal available and leave a few hrs off in day for activities as requested by pt.goal:William vity 1.0 kcal 50cc/hr wtih 240 ml water flush q 8 hours*On return from the hospital all meds are listed as PO, however she is NPO and has been receiving meds through gtube in hospital.d ietician to follow closelymon itor Congestive heart failure 90563402 I50.9 chffurosem rashad 20 mg po qdmonitor bmp and s/s of chf Hypertensive disorder 38 843767 I10 contamioda luanne 400 mg po bid x 7days, 200 mg po qd for 21 days, then stop for taperentre sto 24-36 po bidmetopro lol succinate 50 mg po qdspirolac tone 25 mg po qdmonitor Anemia 757308357 D64.9 hx offerrous sulfate 325 mg po qd with vit c qdmonitor cbc and for s/s of bleeding Bipolar disorder 4238769 4 F31.9 hx ofsertrali ne 50 mg qdmonitor Candidiasis of mouth 797 80447 B37.0 nystatin swish and spit x 10 daysenhanc ed teethbrush ing and oral caremouth swab with mouthwash at bedsidemon itor Chronic pain 50350908 G8 9.29 pt with pain to lower legs(pt states tyl does not work and doesn't want it)states she was on gabapentin and ibuprofen prior at home that worked welltyl prnibuprof en 400 mg gtube bidgabapen tin 100 mg tab gtube bidmonitor for relief and adjustment [id number] Jessica [place] NP [facility] [address] 12/17/2024 16:03:43 12/21/2024 09:59:18 Bipolar disorder 12916961 F31.9 hx ofsertrali ne 50 mg qdmonitor Insomnia 105452307 G47.0 0 12/17 start melatonin 5 mg po qhspsych consult [id number] MARY SHARP NP [facility] [address] 12/21/2024 11:17:22 12/23/2024 12:10:51 Insomnia 232969293 G47.00 Started melatonin 5 mg po qhs on 12/17 - not effective - increase to 10 mg q hsReferred to psychMonit or Bipolar disorder 9241133 4 F31.9 hx ofcontinue sertraline 50 mg qdCurrentl y with issues sleeping - melatonin added and referred to Psychmonit or Candidiasis of mouth 797 78072 B37.0 nystatin swish and spit x 10 days addedMaint ain oral care including brushing tonguemoni tor Chronic pain 32812921 G8 9.29 pt with pain to lower [...] relief and adjustment Carotid ar jonas stenosis 82375247 I65.29 sp right carotid endarterec jaida, performed on 11/22/24. She suffered a right carotid dissection , hematoma, as well as a CVA, which left her with left sided hemiplegia and dysphagia on tube feedscontm onitor s/s of infection, steri strips no offvitals qd x 2 weeksfu with surgery prnbmp and cbc weekly x 3 weeks Cerebrovas cular accident 125668075 I63.9 sp right carotid endarterec jaida, performed on 11/22/24.Sh ahsley suffered a right carotid dissection , hematoma, [...] assessment and pain mgmt.Monit or Left hemiplegia 46868079 8 G81.94 see above Dysphagia 22736909 R13.1 0 NPOmeds through g tubecont g tube feedings - currently on jevity 1.5 @ 50 cc/h x20 h per daydietici an followingS LP eval and tx as indicatedM onitor labs, weights, s/s aspiration . Congestive heart failure 96825577 I50.9 Continue:f urosemide 20 mg po qdentresto 24-36 po bidspirola ctone 25 mg po qdmonitor bmp and s/s of chf Hypertensive disorder 38 222865 I10 contentres to 24-36 po bidmetopro lol succinate 50 mg po qdspirolac tone 25 mg po qdlasix 20 mg qdmonitor Anemia 985856366 D64.9 hx offerrous sulfate 325 mg po qd with vit c qdmonitor cbc and for s/s of bleeding Automatic implantable cardiac defibrillator in situ 153930995 Z95.810 currently maintained onamiodaro ne taper, hx LBBBknown cad continued on asa, statin, and beta yamini [id number] Jessica [place] [facility] [address] 12/23/2024 08:44:39 12/24/2024 14:25:29 Insomnia 805734744 G47.00 contmelato haydee 10 mg q hs, recently increasedR eferred to psychMonit orconsider trazodone if no improvemen t by next week Cerebrovas cular accident 465770022 I63.9 sp right carotid endarterec jaida, performed [...] assessment and pain mgmt.Monit or Left hemiplegia 33371848 8 G81.94 see above Candidiasis of mouth 797 56411 B37.0 nystatin swish and spit x 10 days total, improvingM aintain oral care including brushing tonguemoni tor Dysphagia 31032699 R13.1 0 NPOmeds through g tubecont g tube feedings - currently on jevity 1.5 @ 50 cc/h x20 h per daydietici an followingS LP eval and tx as indicatedM onitor labs, weights, s/s aspiration . Bipolar disorder 1428934 4 F31.9 hx ofcontinue sertraline 50 mg qdmelatoni n 10 mg po qhsreferre d to Psychmonit or Chronic pain 02024953 G8 9.29 pt denies pain this am Currently on:tyl 650 mg po tidibuprof en 400 mg gtube tidgabapen tin 100 mg tab gtube tidRefer to Dr. Flores for eval and tx.monitor for relief and adjustment Carotid ar jonas stenosis 25948451 I65.29 sp right carotid endarterec jaida, performed [...] reorder for next week Congestive heart failure 04627070 I50.9 Continue:f urosemide 20 mg po qdentresto 24-36 po bidspirola ctone 25 mg po qdmonitor bmp and s/s of chf Anemia 861425493 D64.9 hx offerrous sulfate 325 mg po qd with vit c qdmonitor cbc and for s/s of bleeding [id number] Jessica [place] NP [address] [address] 12/29/2024 14:46:44 12/30/2024 16:28:34 Cerebrovascular accident 381575043 I63.9 sp right carotid endarterec jaida, performed [...] further assessment and pain mgmt.Monit or Insomnia 161373744 G47.0 0 contmelato haydee ineffectiv e and dc'dstarte d on trazodone 50 mg po qhs per psychRefer red to psychMonit or Left hemiplegia 87212599 8 G81.94 see above Dysphagia 11328948 R13.1 0 NPOmeds through g tubecont g tube feedings - currently on jevity 1.5 @ 50 cc/h x20 h per daydietici an followingS LP eval and tx as indicatedM onitor labs, weights, s/s aspiration . Bipolar disorder 2822023 4 F31.9 hx ofcontinue sertraline 50 mg qdmelatoni n 10 mg po qhstrazodo ne 50 mg po qhs for insomniare ferred to Psychmonit or Chronic pain 23629250 G8 9.29 pt denies pain todayCurre ntly on:tyl 650 mg po tidibuprof en 400 mg gtube tidgabapen tin 100 mg tab gtube tidRefer to Dr. Flores for eval and tx.monitor for relief and adjustment Carotid ar jonas stenosis 45516996 I65.29 sp right carotid endarterec jaida, performed [...] reorder for next week Congestive heart failure 66634817 I50.9 Continue:f urosemide 20 mg po qdentresto 24-36 po bidspirola ctone 25 mg po qdmonitor bmp and s/s of chf Anemia 972074996 D64.9 hx offerrous sulfate 325 mg po qd with vit c qdmonitor cbc and for s/s of bleeding Recurrent falls 36567384 2 R29.6 fall during transfer today on 12/29 without injuriesmo nitor for injuries/p ainsupport viv carebed rails in place for left sided weakness to help herself movemonito r closely with protocol [id number] Jessica [place] [facility] [address] 12/30/2024 13:16:29 01/04/2025 09:05:35 Insomnia 027787758 G47.00 seems to be helpingcon ttrazodone 50 mg po qhs per psychRefer red to psychMonit or Cerebrovas cular accident 347411896 I63.9 sp right carotid endarterec jaida, performed [...] assessment and pain mgmt.Monit or Left hemiplegia 29295315 8 G81.94 see above Dysphagia 59698856 R13.1 0 NPOmeds through g tubecont g tube feedings - currently on jevity 1.5 @ 50 cc/h x20 h per daydietici an followingS LP eval and tx as indicatedM onitor labs, weights, s/s aspiration . Bipolar disorder 1099029 4 F31.9 hx ofcontinue sertraline 50 mg qdtrazodon e 50 mg po qhs for insomniare ferred to Psychmonit or Chronic pain 67376332 G8 9.29 controlled Currently on:tyl 650 mg po tidibuprof en 400 mg gtube tidgabapen tin 100 mg tab gtube tidRefer to Dr. Flores for eval and tx.monitor for relief and adjustment Carotid ar jonas stenosis 69314795 I65.29 sp right carotid endarterec jaida, performed [...] just the baby asa Congestive heart failure 71525493 I50.9 Continue:f urosemide 20 mg po qdentresto 24-36 po bidspirola ctone 25 mg po qdmonitor bmp and s/s of chf Anemia 626538755 D64.9 stablehx offerrous sulfate 325 mg po qd with vit c qdmonitor cbc and for s/s of bleeding Candidiasis of mouth 797 42802 B37.0 3 restart nystatin swish and spit x 10 days total, improving3 /6 start peridex mouthwash 15 ml apply to tongue throughout day with swab, provide in amMaintain oral care including brushing tonguemoni tor [id number] Jessica [place] NP [address] [address] 01/03/2025 08:35:31 01/04/2025 11:27:30 Candidiasis of mouth 79983337 B37.0 contnystat in swish and spit x 10 days total, improvingp eridex mouthwash 15 ml apply to tongue throughout day with swab, provide in amMaintain oral care including brushing tonguemoni tor Insomnia 575126950 G47.0 0 seems to be helping3/ 0 increase trazodone 50 mg to 75 mg po qhs per psychRefer red to psychMonit or Carotid ar jonas stenosis 91047221 I65.29 sp right carotid endarterec jaida, performed [...] just the baby asa Cerebrovas cular accident 470229018 I63.9 sp right carotid endarterec jaida, performed [...] assessment and pain mgmt.Monit or Left hemiplegia 64154927 8 G81.94 see above Dysphagia 09157480 R13.1 0 01/01 seen by speech and started on reg diet, puree, and honey consistenc ymeds through g tubecont g tube feedings - currently on jevity 1.5 @ 50 cc/h x20 h per daydietici an followingS LP eval and tx as indicatedM onitor labs, weights, s/s aspiration . Chronic pain 80736304 G8 9.29 controlled Currently on:tyl 650 mg po tidibuprof en 400 mg gtube tid3/10 increase gabapentin from 100 mg to 200 mg tube tid3/10 add muscle rub cream tid to left kneewill get ekg in 2 weeks with hx of cardiac disease on amiodarone apap tidRefer to Dr. Flores for eval and tx.monitor for relief and adjustment [id number] Jessica [place] NP [address] [address] 01/05/2025 13:15:00 01/06/2025 14:55:19 Insomnia 121174091 G47.00 conttrazod one 75 mg po qhsReferre d to psychMonit or Chronic pain 65526857 G8 9.29 controlled Currently on:tyl 650 mg po tidibuprof en 400 mg gtube tidgabapen tin from 200 mg tube tidapap tidmuscle rub cream tid to left kneewill get ekg in 1 weeks with hx of cardiac disease on amiodarone Refer to Dr. Flores for eval and tx.monitor for relief and adjustment Candidiasis of mouth 797 06721 B37.0 contnystat in swish and spit x 10 days total, improving, to complete on 01/09peride x mouthwash 15 ml apply to tongue throughout day with swab, provide in amMaintain oral care including brushing tonguemoni tor Carotid ar jonas stenosis 82464212 I65.29 sp right carotid endarterec jaida, performed on 11/22/24. She suffered a right carotid dissection , hematoma, as well as a CVA, which left her with left sided hemiplegia and dysphagia on tube feedsbaby aspirinmon itor s/s of infectionf u with surgery prnbmp and cbc prnhas an appt with Dr De Anda on 01/04, will inquire if more ac is needed or just the baby asa, awaiting notes Cerebrovas cular accident 194305533 I63.9 sp right carotid endarterec jaida, performed on 11/22/24.Cole ramirez suffered a right carotid dissection , hematoma, as well as a CVA, which left her with left sided hemiplegia and dysphagia on tube feedssee pain abovePT OT SLPASA 81 mg qd for acatorvast atin [address] qdDr[address] Mark for further assessment and pain mgmt.Monit or Left hemiplegia 02758918 8 G81.94 see above Dysphagia 29552056 R13.1 0 started on reg diet, puree, and honey consistenc ymeds through g tubecont g tube feedings - currently on jevity 1.5 @ 50 cc/h x20 h per day ranch rider following and titrating now she is eatingSLP eval and tx as indicatedM onitor labs, weights, s/s aspiration . Bipolar disorder 9459480 4 F31.9 hx ofcontinue sertraline 50 mg qdtrazodon e 75 mg po qhs for insomniare ferred to Psychmonit or Congestive heart failure 14719568 I50.9 Continue:f urosemide 20 mg po qdentresto 24-36 po bidspirola ctone 25 mg po qdmonitor bmp and s/s of chf Anemia 429783582 D64.9 stablehx offerrous sulfate 325 mg po qd with vit c qdmonitor cbc and for s/s of bleeding Recurrent falls 47690184 2 R29.6 monitor for injuries/p ainsupport viv carebed rails in place for left sided weakness to help herself movemonito r closely with protocol [id number] Jessica [place] NP [facility] [address] [address] 01/12/2025 08:32:32 01/17/2025 08:47:39 Dysphagia 78790820 R13.10 now with new cough ? related to eating01/12 start mucinex 600 mg po bid x 89qjfy7/19 cxr for cough ro asp01/12 speech to evalcontre g diet, puree, and honey consistenc ymeds through g tubecont g tube feedings - currently on jevity 1.5 @ 42 cc/h x12 h per day ranch rider which is 50% reduction, plan to dc in 1-2 weeks if doing wellfollow ing and titrating now she is eatingSLP eval and tx as indicatedM onitor labs, weights, s/s aspiration . Chronic pain 57539447 G8 9.29 controlled Currently on:tyl 650 mg po tidibuprof en 400 mg gtube tidgabapen tin from 200 mg tube tidapap tidmuscle rub cream tid to left kneewill get ekg in 1 weeks with hx of cardiac disease on amiodarone Refer to Dr. Flores for eval and tx.monitor for relief and adjustment Candidiasis of mouth [phone] 00524 B37.0 resolvedco mpleted nystatin swish and spit x 10 days totalperid ex mouthwash 15 ml apply to tongue throughout day with swab, provide in amMaintain oral care including brushing tonguemoni tor Carotid ar jonas stenosis 22642842 I65.29 sp right carotid endarterec jaida, performed [...] baby asa, awaiting notes Cerebrovas cular accident [id number] I63.9 sp right carotid endarterec jaida, performed on 11/22/24.Sh e suffered a right carotid dissection , hematoma, as well as a CVA, which left her with left sided hemiplegia and dysphagia on tube feedssee pain abovePT OT SLPASA 81 mg qd for acatorvast atin [address] Flores for further assessment and pain mgmt.Monit or Left hemiplegia 66040572 8 G81.94 see above Bipolar disorder 7322310 4 F31.9 hx ofcontinue sertraline 50 mg qdtrazodon e 75 mg po qhs for insomniare ferred to Psychmonit or Congestive heart failure 03537275 I50.9 Continue:f urosemide 20 mg po qdentresto 24-36 po bidspirola ctone 25 mg po qdmonitor bmp and s/s of chf Cough 37001641 R05.9 now with new cough ? related to eating01/12 start mucinex 600 mg po bid x 04gbez5/19 cxr for cough ro asp01/12 speech to eval for new coughcont robitussin prnmonitor [id number] Jessica Taylor NP [address] [address] 01/13/2025 09:17:58 01/17/2025 09:21:59 Cough 58778654 R05.9 now with new cough ? related to eating01/12 start mucinex 600 mg po bid x 20kxrn1/19 cxr for cough ro asp01/12 speech to eval for new cough01/13 xray still pendingcon t robitussin prnmonitor Dysphagia 50700785 R13.1 0 now with new cough ? related to eating01/12 start mucinex 600 mg po bid x 86xjkz6/19 cxr for cough ro asp01/12 speech to evalcontre g diet, puree, and honey consistenc ymeds through g tubecont g tube feedings - currently on jevity 1.5 @ 42 cc/h x12 h per day ranch rider which is 50% reduction, plan to dc in 1-2 weeks if doing wellfollow ing and titrating now she is eatingSLP eval and tx as indicatedM onitor labs, weights, s/s aspiration . Chronic pain 34104097 G8 9.29 controlled , reports still having some pain at timesCurre ntly on:tyl 650 mg po tidibuprof en 400 mg gtube tidgabapen tin from 200 mg tube tidapap tidmuscle rub cream tid to left kneeRefer to Dr. Flores for eval and tx.01/10 seen by PM & R and rec tizanidine 2mg po tid3/20 will start 01/13 tizandine 2mg po q am and then q 8 hours for spasticity , if tolerates will increase to tidmonitor for relief and adjustment Cerebrovas cular accident [id number] I63.9 sp right carotid endarterec jaida, performed on 11/22/24.Sh e suffered a right carotid dissection , hematoma, as well as a CVA, which left her with left sided hemiplegia and dysphagia on tube feedssee pain abovePT OT SLPASA 81 mg qd for acatorvast atin [address] Flores for further assessment and pain mgmt.Monit or Left hemiplegia 96391896 8 G81.94 see above [id number] Jessica Taylor NP [address] [address] 01/20/2025 10:37:44 01/24/2025 12:55:51 Cough 62135166 R05.9 now with new cough ? related to eatingcont mucinex 600 mg po bid for a few more daysspeech to eval for new cough and fees done on 01/19 see hpi01/13 xray still unremarkab lecont robitussin prnmonitor Dysphagia 22840911 R13.1 0 now with new cough ? 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 Flores for further assessment and pain mgmt.Monit or Left hemiplegia 97403568 8 G81.94 see above [id number] Jessica [facility] NP [facility] [address] [place] [address] 01/27/2025 11:29:47 01/31/2025 08:39:10 Cough 32843607 R05.9 resolved3 xray still unremarkab lecont robitussin prnmonitor Dysphagia 78743611 R13.1 0 contreg diet, puree, and honey [...] and gaining weight consistent ly Chronic pain 48285452 G8 9.29 controlled Currently on:tyl 650 mg po tidibuprof en 400 mg gtube tidgabapen tin from 200 mg tube tidapap tidmuscle rub cream tid to left kneeRefer to Dr. Flores for eval and tx.tizanid ine and leave prn q 8 hours prn for spasticity , did not georges the sched dosesmonit or for relief and adjustment Cerebrovas cular accident [id number] I63.9 sp right carotid endarterec jaida, performed on 11/22/24.Sh ashley suffered a right carotid dissection , hematoma, as well as a CVA, which left her with left sided hemiplegia and dysphagia on tube feedssee pain abovePT OT SLPASA 81 mg qd for acatorvast atin [address] Flores for further assessment and pain mgmt.Monit or Left hemiplegia 76531479 8 G81.94 see above [id number] Jessica Taylor NP [facility] [address] [place] [address] 02/04/2025 11:17:37 02/07/2025 13:13:20 Dysphagia 57947864 R13.10 contreg diet, puree, and honey consistenc y4/11 tolerating meds with nurse in afternoon, will [...] and gaining weight consistent ly Chronic pain 05022425 G8 9.29 no painContty l 650 mg po tidibuprof en 400 mg po tidgabapen tin from 200 mg po tidapap tidmuscle rub cream tid to left kneeRefer to Dr. Flores for eval and tx.tizanid ine and leave prn q 8 hours prn for spasticity , did not georges the sched dosesmonit or for relief and adjustment Cerebrovas cular accident [id number] I63.9 sp right carotid endarterec jaida, performed on 11/22/24.Sh ashley suffered a right carotid dissection , hematoma, as well as a CVA, which left her with left sided hemiplegia and dysphagia on tube feedssee pain abovePT OT SLPASA 81 mg qd for acatorvast atin [address] Flores for further assessment and pain mgmt.Monit or Left hemiplegia 36374647 8 G81.94 see above [id number] Jessica Taylor NP [address] [address] 02/09/2025 09:59:15 02/09/2025 10:18:17 Chronic pain 50121211 G89.29 no painContty l 650 mg po tidibuprof en 400 mg po tidgabapen tin from 200 mg po tidapap tidmuscle rub cream tid to left kneeRefer to Dr. Flores for eval and tx.tizanid ine and leave prn q 8 hours prn for spasticity , did not georges the sched dosesmonit or for relief and adjustment Dysphagia 19128659 R13.1 0 contreg diet, puree, and honey consistenc yg tube feeds stopped >2 weeks ago and gaining weight, and doing wellcont g tube flush to 30cc qd for patencytak ing po meds wellSLP eval and tx as indicateds [facility]10monito r weights, s/s aspiration .monitor for need to dc gtube in one to two months when eating and gaining weight consistent ly Cerebrovas cular accident [id number] I63.9 sp right carotid endarterec jaida, performed on 11/22/24.Sh ashley suffered a right carotid dissection , hematoma, as well as a CVA, which left her with left sided hemiplegia and dysphagia on tube feedssee pain abovePT OT SLPcontASA 81 mg qd for acatorvast atin [address] Taney following for pain mgmt.Monit or Left hemiplegia 49467861 8 G81.94 see above Nasal congestion 8585922 0 R09.81 reports nasal congestion and occ [...] Member ID Stanford Member ID Guarantor Name 01/13/2025 1 [employer] - DOS ON OR AFTER 2023 - MEDICARE ADVANTAGE [place]AC[place]/ADV ANTAGE - PPO) Renita Brandon [id number] [facility] 01/20/2025 1 [facility] - DOS ON OR AFTER 2023 - [place]IC[place]AGE [place]V ANTAGE - PPO) Renitamaddi Brandon [id number] [facility] 01/27/2025 1 [facility] - DOS ON OR AFTER 2023 - [place]IC[place]V ANTAGE - PPO) Renitamaddi Brandon [id number] [facility] 02/04/2025 1 [facility] - DOS ON OR AFTER 2023 - [place]V ANTAGE - PPO) Renitamaddi Brandon [id number] [facility] 02/09/2025 1 [facility] - DOS ON OR AFTER 2023 - [place]V ANTAGE - PPO) Renita Brandon [id number] Renita Brandon Notes Date Note Type Note Provider Name and Address Organization Details Recorded Time 01/13/2025 text/html Pt is seen today for an acute visit. PMH: carotid artery stenosis, hld, htn, chf, anemia, gerd, bipolar dx, copd of note: She is a 54 yo female admit from hospital who underwent right carotid endarterectomy on November 22, 2024. Suffered unplanned carotid dissection and CVA with resultant left hemiplegia and dysphagia requiring patient to be NPO with g-tube placed. Stay complicated by laryngeal edema post intubation here at [facility] for rehab and care. She is seen for PM& R consult recommending 2 mg tizanidine for spasticity of left side tid. Will trial 2 mg po q am and 2mg po q 8 hours prn for spasticity and if tolerates will increase to tid. She is also seen for follow up of her cough. Xray done today and still pending. Speech consult was placed. Will rule out possible asp pna.Her g tube feedings were reduced to 50% due to eating 75-100% of meals/drinks. Will leave on this regimen and dc feedings in 1 weeks if still doing well and gaining weight. On exam, she is sitting up in bed and in NAD. vitals and o2 sat stable. Jessica Taylor, LAP LAYER [address], [address], [place], [address], [facility] [employer] [facility] 01/13/2025 16:28:01 01/20/2025 text/html Pt is seen today for an acute visit. PMH: carotid artery stenosis, hld, htn, chf, anemia, gerd, bipolar dx, copd Last week per PM& R consult recommending 2 mg tizanidine for spasticity of left side tid. Will trial 2 mg po q am and 2mg po q 8 hours prn for spasticity and if tolerates will increase to tid. She is flaccid and no spasticity or movement to the left side. Consulted with therapy and will dc scheduled tizanidine due to flaccidity. She is also seen for follow up of her cough, which dry and nonproductive. Xray done and unremarkable. She had a FEES test on 01/19 and felt she needs to sit upright for feeds, with occasional pocketing and no changes to oral diet. Speech does recommend to dc feedings. On exam, pt is motoring around in w/c and states she is doing well. Lungs clear. She remains with left sided weakness, slight slurred speech, and droop. Her g tube feedings were reduced to 50% due last week and she remains eating close to 100% of meals. Will cont flushes and meds through g tube for now. of note: She is a 54 yo female admit from hospital who underwent right carotid endarterectomy on November 22, 2024. Suffered unplanned carotid dissection and CVA with resultant left hemiplegia and dysphagia requiring patient to be NPO with g-tube placed. Stay complicated by laryngeal edema post intubation here at [facility] for rehab and care. Jessica Taylor, BRITTANEY [address], [address], [place], [address], [facility] [employer] 01/20/2025 15:27:24 01/27/2025 text/html Pt is seen today for an acute visit. PMH: carotid artery stenosis, hld, htn, chf, anemia, gerd, bipolar dx, copd Renita is doing well and tolerating her oral diet since g tube feeds discontinued last week. Weight is up 2 lbs to 146lbs. will decrease gtube flushes to 180 cc bid. Nursing is trialing po meds in the afternoon slowly with some success. She continues to progress with therapy. Per note on 01/26 Skin assessment pre and post donning and doffing L neoprene knee sleeve with wearing time 3 hours with no redness noted. Standing time tolerance activity with progression to weight acceptance to L LE. pt tendency to hyperextend at R knee and hip for support with poor L LE contact to floor. Pt requires physical assistance for knee extension with tactile cue to weight shift to L for acceptance with mod A . pt may benefit from locked L knee brace vs AFO to improve weight acceptance to improve transfers. Pt reporting good pain control with use of knee sleeve On exam, pt is motoring around in w/c and states she is doing well. Lungs clear. She remains with left sided weakness, slight slurred speech, and droop. She reports she is doing well and plans to transfer to [facility] in [place] until she can get home again to her apartment. of note: She is a 54 yo female admit from hospital who underwent right carotid endarterectomy on November 22, 2024. Suffered unplanned carotid dissection and CVA with resultant left hemiplegia and dysphagia requiring patient to be NPO with g-tube placed. Stay complicated by laryngeal edema post intubation here at [facility] for rehab and care. Jessica Taylor NP [address] [facility], [address], [place], [address], [employer] 01/27/2025 12:25:34 02/04/2025 text/html Pt is seen today for an acute visit. PMH: carotid artery stenosis, hld, htn, chf, anemia, gerd, bipolar dx, copd Pt is a 54 yo f, rehab pt, who underwent right carotid endarterectomy on November 22, 2024. Suffered unplanned carotid dissection and CVA with resultant left hemiplegia and dysphagia requiring patient to be NPO with g-tube placed. Stay complicated by laryngeal edema post intubation here at [facility] for rehab and care. Since here Renita is doing well and now off g tube feedings for 1-2weeks. She was trialed on po pills at noon and did well and will change meds to po now and decrease g tube flushes to 30 cc qd for patency only. If she tolerates this regimen well, will assess for gtube removal in 1-2 months. ' She continues to work with therapy. On exam, She is seen in the activity room soicalizing with other residents in her wheelchair. Overall, doing well. She reports she is doing well and no complaints. Lungs clear. Left sided weakness, slight slurred speech, and droop remain. future plans: She reports she is doing well and plans to transfer to [facility] in [place] until she can get home again to her apartment. Jessica Taylor NP [address] [facility], [address], [place], [address], [employer] [facility] 02/04/2025 15:26:18 02/09/2025 text/html Pt is seen today for [...] doing well and plans to transfer to [facility] in [place] until she can get home again to her apartment. Jessica Taylor, BRITTANEY [address], [address], [place], [address], [facility] - [employer] 02/09/2025 10:18:15 OBGyn Episode No OBEpisode recorded.
--- OUTSIDE RECORDS SUMMARY | 2025-02-10 07:09 | XMS_ITS | Encounter Summary ---
Author Organization [employer] Address [address] [facility] 7t [place] [address] Care Team Providers Care Body Mechanic Name Role Phone Hilda Butt MD Primary Care Provider Reason for Visit * Reason Onset Date Comments PA 12/25/2022 Encounter Details Date Type Department Care Team ([facility] Contact Info) Description 12/25/2022 Telephone 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 MEDICINE [address] [place], [place] [phone] Hilda Butt MD [address] [place], [place] [phone] PA Social History Tobacco Use Types Packs/Day [...] Lower back pain. Please contact pt at [phone] documented in this encounter Plan of Treatment Not on file documented as of this encounter Visit Diagnoses Not on filedocumented in this encounter Care Teams Body Mechanic Relationship Specialty Start Date End Date Hilda Butt MD [address] [place] [address] PCP - General Family Medicine 06/20/22 documented as of this encounter
--- OUTSIDE RECORDS SUMMARY | 2025-02-10 07:09 | XMS_ITS | Encounter Summary ---
Author Organization [employer] Address [address] [place] [address] Care Team Providers Care Editorial Intern Name Role Phone Hilda Butt MD Primary Care Provider [phone] Reason for Visit * Reason Comments Med Refill Encounter Details Date Type Department Care Team ([facility] st Contact Info) Description 06/29/2024 Refill [facility] MEDICINE [address] [place], [place] [phone] Hilda Butt MD [address] [place], [place] [phone] Lower extremity edema Social History Tobacco Use [...] documented as of this encounter Care Teams Editorial Intern Relationship Specialty Start Date End Date Hilda Butt MD [address] [place] [address] PCP - General Family Medicine 06/20/22 documented as of this encounter
--- OUTSIDE RECORDS SUMMARY | 2025-02-10 07:09 | XMS_ITS | Encounter Summary ---
Author Organization [employer] Address [address] [place] [address] Care Team Providers Care Resolution Analyst Name Role Phone Hilda Butt MD Primary Care Provider [phone] Reason for Visit * Reason Comments Med Refill Encounter Details Date Type Department Care Team ([facility] st Contact Info) Description 07/28/2024 Refill [facility] MEDICINE [address] [place], [place] [phone] Hilda Butt MD [address] [place], [place] [phone] Social History Tobacco Use Types Packs/Day Years [...] documented as of this encounter Care Teams Resolution Analyst Relationship Specialty Start Date End Date Hilda Butt MD [address] [place] [address] PCP - General Family Medicine 06/20/22 documented as of this encounter
--- OUTSIDE RECORDS SUMMARY | 2025-02-10 07:09 | XMS_ITS | Encounter Summary ---
Author Organization [employer] Address [address] [place] [address] Care Team Providers Care Paving Supervisor Name Role Phone Hilda Butt MD Primary Care Provider [phone] Reason for Visit * Reason Onset Date Comments Med Refill 12/03/2023 Encounter Details Date Type Department Care Team ([facility] st Contact Info) Description 12/03/2023 Refill [facility] MEDICINE [address] [place], [place] [phone] Hilda Butt MD [address] [place], [place] [phone] Social History Tobacco Use Types Packs/Day Years [...] documented as of this encounter Care Teams Paving Supervisor Relationship Specialty Start Date End Date Hilda Butt MD [address] [place] [id number] PCP - General Family Medicine 06/20/22 documented as of this encounter
--- OUTSIDE RECORDS SUMMARY | 2025-02-10 07:09 | XMS_ITS | Encounter Summary ---
Author Organization [employer] Address [address] [place] [address] Care Team Providers Care Internet Marketing Manager Name Role Phone Hilda Butt MD Primary Care Provider [phone] Reason for Visit * Reason Onset Date Comments Med Refill 12/04/2023 Encounter Details Date Type Department Care Team ([facility] st Contact Info) Description 12/04/2023 Refill [facility] MEDICINE [address] [place], [place] [phone] Hilda Butt MD [address] [place], [place] [phone] Itchy skin of anus and genitals Social [...] as of this encounter Care Teams Internet Marketing Manager Relationship Specialty Start Date End Date Hilda Butt MD [address] [place] [id number] PCP - General Family Medicine 06/20/22 documented as of this encounter
--- OUTSIDE RECORDS SUMMARY | 2025-02-10 07:09 | XMS_ITS | Encounter Summary ---
Author Organization [employer] Address [address] [facility] 7t [place] [address] Care Team Providers Care Exceptional Children'S Teacher Name Role Phone Hilda Butt MD Primary Care Provider [phone] Reason for Visit * Reason Onset Date Comments Medication Question 11/19/2022 Encounter Details Date Type Department Care Team ([facility] Contact Info) Description 11/19/2022 Telephone [facility] MEDICINE [address] [place], [place] [phone] Hilda Butt MD [address] [place], [place] [phone] Medication Question Social History Tobacco Use Types [...] regarding nebulizer medication Please contact Marina at [phone] documented in this encounter Plan of Treatment Not on file documented as of this encounter Visit Diagnoses Not on filedocumented in this encounter Care Teams Exceptional Children'S Teacher Relationship Specialty Start Date End Date Hilda Butt MD [address] [place] [address] PCP - General Family Medicine 06/20/22 documented as of this encounter
--- OUTSIDE RECORDS SUMMARY | 2025-02-10 07:09 | XMS_ITS | Encounter Summary ---
Author Organization [employer] Address [address] [place] [address] Care Team Providers Care Investigations Consultant Name Role Phone Hilda Butt MD Primary Care Provider [phone] Encounter Details Date Type Department Care Team ([facility] st Contact Info) Description 08/18/2023 Abstract [facility] MEDICINE [address] [place], [place] [phone] Hilda Butt MD [address] [place], [place] [phone] Social History Tobacco Use Types Packs/Day Years [...] documented as of this encounter Care Teams Investigations Consultant Relationship Specialty Start Date End Date Hilda Butt MD [address] [place] [address] PCP - General Family Medicine 06/20/22 documented as of this encounter
--- OUTSIDE RECORDS SUMMARY | 2025-02-10 07:09 | XMS_ITS | Encounter Summary ---
Author Organization [employer] Address [address] [place] [address] Care Team Providers Care Director Workers Compensation Name Role Phone Hilda Butt MD Primary Care Provider [phone] Reason for Visit * Reason Comments Med Refill Encounter Details Date Type Department Care Team ([facility] st Contact Info) Description 2024 Refill [facility] MEDICINE [address] [place], [place] [phone] Hilda Butt MD [address] [place], [place] [phone] Social History Tobacco Use Types Packs/Day Years [...] documented as of this encounter Care Teams Director Workers Compensation Relationship Specialty Start Date End Date Hilda Butt MD [address] [place] [address] PCP - General Family Medicine 06/20/22 documented as of this encounter
--- OUTSIDE RECORDS SUMMARY | 2025-02-10 07:09 | XMS_ITS | Encounter Summary ---
Author Organization [employer] Address [address] [facility] [address]t [place] [address] Care Team Providers Care Oncology Account Specialist Name Role Phone Hilda Butt MD Primary Care Provider [phone] Encounter Details Date Type Department Care Team ([facility] st Contact Info) Description 10/31/2022 Orders Only [facility] MEDICINE [address] [place], [place] [phone] Hilda Butt MD [address] [place], [place] [phone] Blurry vision (Primary Dx) Social History Tobacco [...] disturbances documented in this encounter Care Teams Oncology Account Specialist Relationship Specialty Start Date End Date Hilda Butt MD [address] [place], [place] [phone] PCP - General Family Medicine 06/20/22 documented as of this encounter
--- OUTSIDE RECORDS SUMMARY | 2025-02-10 07:09 | XMS_ITS | Encounter Summary ---
Author Organization [employer] Address [address] [facility] [address] 7t [place] [address] Care Team Providers Care Cooking Teacher Name Role Phone Hilda Butt MD Primary Care Provider [phone] Reason for Visit * Reason Comments Med Refill Encounter Details Date Type Department Care Team ([facility] st Contact Info) Description 06/30/2024 Refill [facility] MEDICINE [address] [place], [place] [phone] Hilda Butt MD 230 [place], [place] [phone] Lower extremity edema Social History Tobacco Use [...] documented as of this encounter Care Teams Cooking Teacher Relationship Specialty Start Date End Date Hilda Butt MD 230 [place] [address] PCP - General Family Medicine 06/20/22 documented as of this encounter
--- OUTSIDE RECORDS SUMMARY | 2025-02-10 07:09 | XMS_ITS | Encounter Summary ---
Author Organization [employer] Address [address] [facility] [address] 7t [place] [address] Care Team Providers Care Learning Development Specialist Name Role Phone Hilda Butt MD Primary Care Provider [phone] Reason for Visit * Reason Onset Date Comments Med Refill 12/03/2023 Encounter Details Date Type Department Care Team ([facility] st Contact Info) Description 12/03/2023 Refill [facility] MEDICINE [address] [place], [place] [phone] Hilda Butt MD 230 [place], [place] [phone] Low back pain at multiple sites Social [...] documented as of this encounter Care Teams Learning Development Specialist Relationship Specialty Start Date End Date Hilda Butt MD [address] [place] [address] PCP - General Family Medicine 06/20/22 documented as of this encounter
--- OUTSIDE RECORDS SUMMARY | 2025-02-10 07:09 | XMS_ITS | Encounter Summary ---
Author Organization [employer] Address [address] [facility] 7t [place] [address] Care Team Providers Care Eradicator Name Role Phone Hilda Arshad MD Primary Care Provider [phone] Reason for Visit * Reason Onset Date Comments medical supplies 08/08/2023 Encounter Details Date Type Department Care Team ([facility] Contact Info) Description 08/08/2023 Telephone [facility] MED[facility]INE 230 [place], [place] [phone] Hilda Arshad MD 230 [place], [place] [phone] medical supplies Social History Tobacco Use Types [...] AND [facility] WICH WILL BE SENT TO [facility] AT [facility] BECAUSE [facility] DOES NOT ACCEPT [facility]. * Telephone Encounter - Adelaida Gastelum - [...] documented as of this encounter Care Teams Eradicator Relationship Specialty Start Date End Date Hilda Arshad MD 230 [place] [address] PCP - General Family Medicine 06/20/22 documented as of this encounter
--- OUTSIDE RECORDS SUMMARY | 2025-02-10 07:09 | XMS_ITS | Encounter Summary ---
Author Organization [email or web address] Address [address] [facility] [address] 7t [place] [address] Care Team Providers Care Pattern Painter Name Role Phone Hilda Butt MD Primary Care Provider [phone] Encounter Details Date Type Department Care Team ([facility] st Contact Info) Description 10/15/2022 Orders Only [facility] [address] [place], [place] [phone] Apple Stringer LPN Social History Tobacco Use [...] on filedocumented in this encounter Care Teams Pattern Painter Relationship Specialty Start Date End Date Hilda Butt MD [address] [place] [address] PCP - General Family Medicine 06/20/22 documented as of this encounter
--- OUTSIDE RECORDS SUMMARY | 2025-02-10 07:09 | XMS_ITS | Clinical Summary ---
Author Organization [address] [facility] Address [address] [place] [address] Phone Care Team Providers Care Stamping Die Maker Name Role Phone Tara Paniagua RN Primary Care Provider [phone] Encounters Date Type Department Care Team Description 02/08/2025 Lab Requisition [facility] [address] [place] [phone] Benjamin Kim MD Heart failure, unspecified ([facility] V24, [facility] V28) 12/28/2024 Lab Requisition [facility] Lab [address] [place] [phone] Benjamin Kim MD Heart failure, unspecified ([facility] V24, CMS/HCC V28) 12/10/2024 Lab Requisition [facility] [address] [place] [phone] Benjamin Kim MD Essential (primary) hypertension from Last 3 Months Surgical History Surgery Date Site/Laterality Comments TUBAL LIGATION PROCEDURE: HISTORICAL TUBAL LIGATION BUNIONECTOMY PROCEDURE: OR CORRJ HLX VLGS BNCTY SESMDC W/DOUBLE OSTEOTOMY Medical History Medical History Date Comments Bipolar 1 disorder (CMS/HCC V24, CMS/HCC V28) DX:Bipolar 1 disorder (HCC) Historical Medical DX 12/07/2013 [...] Health Screening 09/29/2022 Depression Screening 11/17/2024 11/17/2023 COVID-19 Vaccine ( season) 2025 07/19/2024, 11/08/2022, 07/30/2022, Additional history exists Hypertension/CHF/CAD Annual BMP Blood Test 12/29/2025 02/09/2025, 12/29/2024, 12/10/2024, Additional history exists Cervical Cancer Screening: Pap [...] 10/17/2021 Hepatitis A Vaccines Completed 06/23/2024, 11/17/19 Influenza Vaccine Completed 07/19/2024, , 2022, Additional [...] age to complete this topic Meningococcal B Vaccine Aged Out No l onger eligible based on patient's age to complete this topic RSV Immunization Patients Under 20 months Aged Out No longer eligible based on patient's age to complete this topic Varicella Vaccines Aged Out No longer eligible based on patient's age to complete this topic Procedures Procedure Name Priority Date/Time Associated Diagnosis Comments BASIC METABOLIC PANEL Routine 02/09/2025 7:58 AM EDT Heart failure, unspecified (CMS/HCC V24, CMS/HCC V28) COMPLETE BLOOD COUNT Routine 02/09/2025 7:58 AM EDT Heart failure, unspecified (CMS/HCC V24, CMS/HCC V28) BASIC METABOLIC PANEL Routine 12/29/2024 7:42 AM EST Heart failure, unspecified (CMS/HCC) COMPLETE BLOOD COUNT Routine 12/29/2024 7:42 AM EST Heart failure, unspecified (CMS/HCC) BASIC METABOLIC PANEL Routine 12/10/2024 7:30 AM EST Essential (primary) hypertension COMPLETE BLOOD COUNT Routine 12/10/2024 7:30 AM EST Essential (primary) hypertension from Last 3 Months Results * (ABNORMAL) Complete blood count (02/09/2025 7:58 AM EDT) Only the most recent of3 resultswithin the time period is included. WBC 5.9 4.8 - 10.8 K/[facility] LAB HEMETOLOGY METHOD 02/09/2025 11:27 AM EDT [facility] LAB RBC 3.80 3.80 - 4.80 M/[facility] LAB HEMETOLOGY METHOD 02/09/2025 11:27 AM EDT [facility] LAB Hemoglobin 10.9(L) 11.5 - 16.0 g/dL LAB HEMETOLOGY METHOD 02/09/2025 11:27 AM [facility] LAB Hematocrit 34.0(L) 35.0 - 47.0 % LAB HEMETOLOGY METHOD 02/09/2025 11:27 AM [facility] MCV 88.5 79.0 - 98.0 FL LAB HEMETOLOGY METHOD 02/09/2025 11:27 AM [facility] MCH 28.4 27.0 - 32.0 pcg LAB HEMETOLOGY METHOD 02/09/2025 11:27 AM [facility] LAB MCHC 32.1 32.0 - 37.0 g/dL LAB HEMETOLOGY METHOD 02/09/2025 11:27 AM [facility] RDW 13.6 11.0 - 15.0 % LAB HEMETOLOGY METHOD 02/09/2025 11:27 AM [facility] Platelets 299 130 - 400 K/mcL LAB HEMETOLOGY METHOD 02/09/2025 11:27 AM [facility] MPV 9.9 7.0 - 11.0 FL LAB HEMETOLOGY METHOD 02/09/2025 11:27 AM [facility] NRBC 0.0 <1.0 % LAB HEMETOLOGY METHOD 02/09/2025 11:27 AM [facility] LAB NRBC Absolute 0.00 <0.10 K/mcL LAB HEMETOLOGY METHOD 02/09/2025 11:27 AM [facility] Blood Venous blood specimen / Unknown Venipuncture / Unknown 02/09/2025 7:58 AM EDT 02/09/2025 11:12 AM EDT us Benjamin Kim MD LAB BLOOD ORDERABLES Final Resul t [facility] [address] [place] [address], [place] [phone] * Basic metabolic panel (02/09/2025 7:58 AM EDT) Only the most recent of3 resultswithin the time period is included. Sodium 139 133 - 145 mmol/L LAB CHEMISTRY METHOD 02/09/2025 12:40 PM EDT [facility] LAB Potassium 3.8 3.5 - 5.5 mmol/L LAB CHEMISTRY METHOD 02/09/2025 12:40 PM [facility] Chloride 104 96 - 110 mmol/L LAB CHEMISTRY METHOD 02/09/2025 12:40 PM [facility] CO2 28 21 - 32 mmol/L LAB CHEMISTRY METHOD 02/09/2025 12:40 PM [facility] Anion Gap 7 3 - 11 LAB CHEMISTRY METHOD 02/09/2025 12:40 PM [facility] Glucose 93 70 - 100 mg/dL LAB CHEMISTRY METHOD 02/09/2025 12:40 PM [facility] BUN 17 5 - 25 mg/dL LAB CHEMISTRY METHOD 02/09/2025 12:40 PM [facility] Creatinine 0.54 0.50 - 1.10 mg/dL LAB CHEMISTRY METHOD [facility] eGFR 111 >=60 mL/min/1. 73m2 LAB CHEMISTRY METHOD 02/09/2025 12:40 PM [facility] Comment:Calculation based on the??Chronic Kidney Disease Epidemiology Collaboration (CKD-EPI) equation refit??without adjustment for race. BUN/Creatinine Ratio 31.5 LAB CHEMISTRY METHOD 02/09/2025 12:40 PM [facility] Calcium 9.6 8.5 - 10.5 mg/dL LAB CHEMISTRY METHOD 02/09/2025 12:40 PM [facility] Blood Venous blood specimen / Unknown Venipuncture / Unknown 02/09/2025 7:58 AM EDT 02/09/2025 11:12 AM EDT us Benjamin Kim MD LAB BLOOD ORDERABLES Final Resul t [facility] [address] [place] [address], [place] [phone] from Last 3 Months Insurance [facility] MEDIC[facility] Member Subscriber Plan / Payer (Ef fective 2023-Present) Name:Renita Brandon Relation to Subscriber:Self Name:Renita Brandon Payer ID:[id number] Group ID:[id number] Type:Not on file Address: [place] [address] [address] [phone] Advance Directives Documents on File Type Date Recorded Patient Automobile Brake Bonder Expl anation Health Care Decision (hx) 02/06/2024 AD ORTIZ DIRECTIVE Health Care Decision (hx) 02/06/2024 AD ORTIZ DIRECTIVE Health Care Decision (hx) 02/06/2024 AD ORTIZ DIRECTIVE Health Care Decision (hx) 02/04/2023 AD ORTIZ DIRECTIVE Care Teams Stamping Die Maker Relationship Specialty Start Date End Date Tara Paniagua RN [address] [place] [phone] PCP - General 07/24/22
--- OUTSIDE RECORDS SUMMARY | 2025-02-10 07:09 | XMS_ITS | Encounter Summary ---
Author Organization [employer] Address [address] [facility] [address] 7t [place] [address] Care Team Providers Care Manager Competitive Intelligence Name Role Phone Hilda Butt MD Primary Care Provider [phone] Encounter Details Date Type Department Care Team ([facility] st Contact Info) Description 08/19/2023 Abstract [facility] MEDICINE 230 [place], [place] [phone] Hilda Butt MD 230 [place], [place] [phone] Social History Tobacco Use Types Packs/Day Years [...] as of this encounter Care Teams Manager Competitive Intelligence Relationship Specialty Start Date End Date Hilda Butt MD 230 [place] [address] PCP - General Family Medicine 06/20/22 documented as of this encounter
--- OUTSIDE RECORDS SUMMARY | 2025-02-10 07:09 | XMS_ITS | Encounter Summary ---
Author Organization [employer] Address [address] [facility] [address] 7t [place] [address] Care Team Providers Care Refinery Operator Alkylation Name Role Phone Hilda Butt MD Primary Care Provider [phone] Reason for Visit * Reason Onset Date Comments Med Refill 10/16/2023 Encounter Details Date Type Department Care Team ([facility] Contact Info) Description 10/16/2023 Refill [facility] 230 [place], [place] [phone] Anum Fox FNP Recurrent acute serous otitis [...] t he electric, gas, oil or water [employer] threatened to shut off services in your [...] documented as of this encounter Care Teams Refinery Operator Alkylation Relationship Specialty Start Date End Date Hilda Butt MD 230 [place] [address] PCP - General Family Medicine 06/20/22 documented as of this encounter
--- OUTSIDE RECORDS SUMMARY | 2025-02-10 07:09 | XMS_ITS | Encounter Summary ---
Author Organization [employer] Address [address] [facility] [facility] [facility] [address]t [place] [address] Care Team Providers Care Certified Detention Deputy Name Role Phone Hilda Butt MD Primary Care Provider [phone] Reason for Visit * Reason Comments Med Refill Encounter Details Date Type Department Care Team ([facility] st Contact Info) Description 11/22/2024 Refill [facility] MEDICINE 230 [place], [place] [phone] Hilda Butt MD [address] [place], [place] [phone] Social History Tobacco Use Types Packs/Day Years [...] documented as of this encounter Care Teams Certified Detention Deputy Relationship Specialty Start Date End Date Hilda Butt MD [address] [place] [address] PCP - General Family Medicine 06/20/22 documented as of this encounter
--- OUTSIDE RECORDS SUMMARY | 2025-02-10 07:09 | XMS_ITS | Encounter Summary ---
Author Organization [employer] Address [address] [facility] 7t [place] [address] Care Team Providers Care Javascript Application Developer Name Role Phone Hilda Butt MD Primary Care Provider [phone] Reason for Visit * Reason Onset Date Comments Med Life Line 08/06/2023 Encounter Details Date Type Department Care Team ([facility] Contact Info) Description 08/06/2023 Telephone [facility] MEDICINE 230 [place], [place] [phone] Hilda Butt MD [address] [place], [place] [phone] Med Life Line Social History Tobacco Use [...] PATIENT TODAY WILL SEND RX TO [facility]. [facility] DOES NOT ACCEPT [facility]. * Telephone Encounter - Ashley Sutton - 08/06/2023 1:10 PM EDT Tc from pt requesting status on paperwork for Med Life line machine due to her medical conditions. Task on 07/31/2023 Please contact pt at [phone] Setswana Speaker documented in this encounter Plan of Treatment Not on file documented as of this encounter Visit Diagnoses Not on filedocumented in this encounter Additional Health Concerns Assessment Noted Time PHQ-9 Depression Total Score: 6 06/12/20 23 9:18 AM EDT documented as of this encounter Care Teams Javascript Application Developer Relationship Specialty Start Date End Date Hilda Butt MD 230 [place] [address] PCP - General Family Medicine 06/20/22 documented as of this encounter
--- OUTSIDE RECORDS SUMMARY | 2025-02-10 07:09 | XMS_ITS | Encounter Summary ---
Author Organization [employer] Address [address] [facility] [address] 7t [place] [address] Care Team Providers Care Hot Stamp Operator Name Role Phone Hilda Butt MD Primary Care Provider [phone] Encounter Details Date Type Department Care Team ([facility] Contact Info) Description 10/30/2023 Telephone [facility] MEDICINE 230 [place], [place] [phone] Janine Mccarthy, RN 230 [place], [place] [phone] Social History Tobacco Use Types Packs/Day Years [...] t he electric, gas, oil or water [employer] threatened to shut off services in your [...] documented as of this encounter Care Teams Hot Stamp Operator Relationship Specialty Start Date End Date Hilda Butt MD 230 [place] [address] PCP - General Family Medicine 06/20/22 documented as of this encounter
--- OUTSIDE RECORDS SUMMARY | 2025-02-10 07:09 | XMS_ITS | Encounter Summary ---
Author Organization [employer] Address [address] [facility] [address] [place] [address] Care Team Providers Care Meeting Manager Name Role Phone Hilda Butt MD Primary Care Provider [phone] Encounter Details Date Type Department Care Team ([facility] st Contact Info) Description 08/19/2023 Abstract [facility] MEDICINE 230 [place], [place] [phone] Hilda Butt MD 230 [place], [place] [phone] Social History Tobacco Use Types Packs/Day Years [...] documented as of this encounter Care Teams Meeting Manager Relationship Specialty Start Date End Date Hilda Butt MD 230 [place] [address] PCP - General Family Medicine 06/20/22 documented as of this encounter
--- OUTSIDE RECORDS SUMMARY | 2025-02-10 07:09 | XMS_ITS | Encounter Summary ---
Author Organization [employer] Address [address] [facility] [address] 7t [place] [address] Care Team Providers Care Cafeteria Director Name Role Phone Hilda Butt MD Primary Care Provider [phone] Encounter Details Date Type Department Care Team ([facility] st Contact Info) Description 11/20/2023 Abstract [facility] MEDICINE 230 [place], [place] [phone] Hilda Butt MD 230 [place], [place] [phone] Social History Tobacco Use Types Packs/Day Years [...] documented as of this encounter Care Teams Cafeteria Director Relationship Specialty Start Date End Date Hilda Butt MD [address] [place] [address] PCP - General Family Medicine 06/20/22 documented as of this encounter
--- OUTSIDE RECORDS SUMMARY | 2025-02-10 07:09 | XMS_ITS | Encounter Summary ---
Author Organization [employer] Address [address] [facility] [address] 7t [place] [address] Care Team Providers Care Train Caller Name Role Phone Hilda Butt MD Primary Care Provider [phone] Reason for Visit * Reason Onset Date Comments Med Refill 06/24/2024 Encounter Details Date Type Department Care Team ([facility] st Contact Info) Description 06/24/2024 Refill [facility] MEDICINE 230 [place], [place] [phone] Hilda Butt MD 230 [place], [place] [phone] Social History Tobacco Use Types Packs/Day Years [...] documented as of this encounter Care Teams Train Caller Relationship Specialty Start Date End Date Hilda Butt MD 230 [place] [address] PCP - General Family Medicine 06/20/22 documented as of this encounter
--- OUTSIDE RECORDS SUMMARY | 2025-02-10 07:09 | XMS_ITS | Encounter Summary ---
Author Organization [employer] Address [address] [place] [address] Care Team Providers Care Special Services Coordinator Name Role Phone Tara Paniagua RN Primary Care Provider [phone] Encounter Details Date Type Department Care Team (Late st Contact Info) Description 02/08/2025 Lab Requisition [facility] [address] [facility] [place] [address] Benjamin Kim MD [address] [facility] [address] [place], [address] Heart failure, unspecified (CMS/HCC V24, CMS/HCC [...] Associated Diagnosis Comments COMPLETE BLOOD COUNT Routine 02/09/2025 7:58 AM EDT Heart failure, unspecified (CMS/HCC V24, CMS/HCC V28) BASIC METABOLIC PANEL Routine 02/09/2025 7:58 AM EDT Heart failure, unspecified (CMS/HCC V24, CMS/HCC V28) documented in this encounter Results * Basic metabolic panel (02/09/2025 7:58 AM EDT) Sodium 139 133 - 145 mmol/L LAB CHEMISTRY METHOD 02/09/2025 12:40 PM [facility] LAB Potassium 3.8 3.5 - 5.5 mmol/L LAB CHEMISTRY METHOD 02/09/2025 12:40 PM [facility] Chloride 104 96 - 110 mmol/L LAB CHEMISTRY METHOD 02/09/2025 12:40 PM [facility] LAB CO2 28 21 - 32 mmol/L LAB CHEMISTRY METHOD 02/09/2025 12:40 PM [facility] LAB Anion Gap 7 3 - 11 LAB CHEMISTRY METHOD 02/09/2025 12:40 PM [facility] LAB Glucose 93 70 - 100 mg/dL LAB CHEMISTRY METHOD 02/09/2025 12:40 PM [facility] BUN 17 5 - 25 mg/dL LAB CHEMISTRY METHOD 02/09/2025 12:40 PM [facility] LAB Creatinine 0.54 0.50 - 1.10 mg/dL LAB CHEMISTRY METHOD 02/09/2025 12:40 PM [facility] LAB eGFR 111 >=60 mL/min/1. 73m2 LAB CHEMISTRY METHOD 02/09/2025 12:40 PM [facility] LAB Comment:Calculation based on the??Chronic Kidney Disease Epidemiology Collaboration (CKD-EPI) equation refit??without adjustment for race. BUN/Creatinine Ratio 31.5 LAB CHEMISTRY METHOD 02/09/2025 12:40 PM [facility] LAB Calcium 9.6 8.5 - 10.5 mg/dL LAB CHEMISTRY METHOD 02/09/2025 12:40 PM [facility] LAB Blood Venous blood specimen / Unknown Venipuncture / Unknown 02/09/2025 7:58 AM EDT 02/09/2025 11:12 AM EDT us Benjamin Kim MD LAB BLOOD ORDERABLES Final Resul t [facility] [address] [place] [address], [place] [phone] * (ABNORMAL) Complete blood count (02/09/2025 7:58 AM EDT) WBC 5.9 4.8 - 10.8 K/mcL LAB HEMETOLOGY METHOD 02/09/2025 11:27 AM EDT [facility] LAB RBC 3.80 3.80 - 4.80 M/mcL LAB HEMETOLOGY METHOD 02/[facility]2025 [facility] Hemoglobin 10.9(L) 11.5 - 16.0 g/dL LAB HEMETOLOGY METHOD 02/09/2025 11:27 AM T [facility] LAB Hematocrit 34.0(L) 35.0 - 47.0 % LAB HEMETOLOGY METHOD 02/09/2025 11:27 AM EDT [facility] LAB MCV 88.5 79.0 - 98.0 FL LAB HEMETOLOGY METHOD 02/09/2025 11:[facility] MCH 28.4 27.0 - 32.0 pcg LAB HEMETOLOGY METHOD 02/09/2025 11:27 AM EDT [facility] MCHC 32.1 32.0 - 37.0 g/dL LAB HEMETOLOGY METHOD 02/09/2025 11:27 AM EDT [facility] LAB RDW 13.6 11.0 - 15.0 % LAB HEMETOLOGY METHOD 02/09/2025 11:[facility] Platelets 299 130 - 400 K/mcL LAB HEMETOLOGY METHOD 02/09/2025 11:27 AM EDT [facility] MPV 9.9 7.0 - 11.0 FL LAB HEMETOLOGY METHOD 02/09/2025 11:27 AM EDT [facility] LAB NRBC 0.0 <1.0 % LAB HEMETOLOG METHOD 02/09/2025 11:27 AM EDT [facility] LAB NRBC Absolute 0.00 <0.10 K/mcL LAB HEMETOLOGY METHOD 02/09/2025 11:27 AM EDT [facility] Blood Venous blood specimen / Unknown Venipuncture / Unknown 02/09/2025 7:58 AM EDT 02/09/2025 11:12 AM EDT us Benjamin Kim MD LAB BLOOD ORDERABLES Final Resul t [facility] [address] [place] [address], documented in this encounter Visit Diagnoses Diagnosis Heart failure, unspecified (CMS/HCC V24, CMS/HCC V28) Heart failure, unspecified documented in this encounter Care Teams Special Services Coordinator Relationship Specialty Start Date End Date Tara Paniagua RN [address] [place] [phone] PCP - General 07/24/22 documented as of this encounter
--- OUTSIDE RECORDS SUMMARY | 2025-02-10 07:09 | XMS_ITS | Encounter Summary ---
Author Organization [employer] Address [address] [facility] [address]t [place] [address] Care Team Providers Care Seafood Preparer Name Role Phone Hilda Butt MD Primary Care Provider [phone] Encounter Details Date Type Department Care Team ([facility] st Contact Info) Description 08/19/2023 Abstract [facility] MEDICINE 230 [place], [place] [phone] Hilda Butt MD 230 [place], [place] [phone] Social History Tobacco Use Types Packs/Day Years [...] documented as of this encounter Care Teams Seafood Preparer Relationship Specialty Start Date End Date Hilda Butt MD 230 [place] [address] PCP - General Family Medicine 06/20/22 documented as of this encounter
--- OUTSIDE RECORDS SUMMARY | 2025-02-10 07:10 | XMS_ITS | Encounter Summary ---
Author Organization [employer] Address [address] [facility] [address] 7t [place] [address] Care Team Providers Care Exercise Rider Name Role Phone Hilda Butt MD Primary Care Provider [phone] Encounter Details Date Type Department Care Team ([facility] st Contact Info) Description 07/02/2024 Orders Only [facility] MEDICINE [address] [place], [place] [phone] Hilda Butt MD [address] [place], [place] [phone] Subacute cough (Primary Dx) Social History Tobacco [...] as of this encounter Care Teams Exercise Rider Relationship Specialty Start Date End Date Hilda Butt MD [address] [place] [address] PCP - General Family Medicine 06/20/22 documented as of this encounter
== END 2025-02-10 07:05 | disposition home or self-care (01) ==
LOC: HO.CT 07:04
PROVIDERS: PCP General Practice; Visit Provider Nurse Practitioner Family
DX: R91.8 Other nonspecific abnormal finding of lung field (principal)
CPT/HCPCS: 71250

== ENCOUNTER → 2025-02-10 07:07 | Outpatient (BNV) | payer OTHER, SELFPAY | PROVIDERS: PCP General Practice; Visit Provider Specialist | DX: R91.8 Other nonspecific abnormal finding of lung field (principal) | CPT/HCPCS: 71250 ==

== ENCOUNTER 2025-05-26 14:12 | Outpatient (AMB) | payer OTHER, SELFPAY ==
--- NOTE | 2025-05-26 14:17 | MHC.OFFVIS ---
Vital Signs 05/26/25 14:18 Height 4 ft 11 in BMI Reason not done Patient refused/unable BP 116/62 Blood Pressure Location Lt brachial Position Sitting Pulse 83 Pulse Source Monitor Intake Visit Reasons: 6mo f/u Allergies lisinopril Allergy (Verified 01/04/25 13:02) Cough ham Allergy (Uncoded 01/04/25 13:02) hives Medication List - Last Reconciled 05/26/25 by Jonah Darling MD albuterol sulfate 90 mcg/actuation (Ventolin HFA) 2 inhalations inhalation Q6H PRN ascorbic acid (vitamin C) 250 mg PO DAILY aspirin 81 mg PO DAILY atorvastatin 80 mg PO DAILY cholecalciferol (vitamin D3) (Vitamin D3) 50 mcg PO DAILY gabapentin mg PO metoprolol tartrate 25 mg PO DAILY montelukast 10 mg PO BEDTIME pantoprazole 40 mg PO DAILY@0630 sacubitril-valsartan 24-26 mg (Entresto) 1 tab PO BID 90 days sertraline 50 mg PO DAILY spironolactone 25 mg PO DAILY trazodone 100 mg PO BEDTIME HPI Comments Details: Renita returns for follow-up regarding cardiomyopathy as well as left bundle-branch block. She has a history of vertebral artery dissection in 2022 and treated at [facility]. She was on anticoagulation then but L stopped. In 2023, she was diagnosed with severe carotid stenosis and that led to right carotid endarterectomy. However, that was complicated by a stroke. She had a prolonged recovery but it seems she has actually gotten much better since then. However, still has a left-sided weakness. She comes in a wheelchair. Overall, she states she feels well. No new concerns. [facility] Medical History Acute hypernatremia Laryngeal edema Stroke Dissection of right carotid artery Dysphagia Hx of radiation therapy Habitual snoring Cough On beta yamini at home Pacemaker Cardiac resynchronization therapy defibrillator ([employer]-D) in place (~06/2023) LBBB (left bundle branch block) NICM (nonischemic cardiomyopathy) Invasive ductal carcinoma of left breast (~02/2022) Anemia COPD (chronic obstructive pulmonary disease) Hypercholesteremia Bipolar 1 disorder Hypertension Surgical History History of cardiac defibrillator placement (~2022) History of cardiac cath (~2021) History of foot surgery (~2006) History of left breast biopsy (~2021) History of lumpectomy of left breast (~2021) History of hysterectomy (~2021) Family History Maternal Aunt Lupus Mother Breast cancer Social History Household Members: None Housing: Apartment Are you a primary career education teacher to a significant other at home: No Do you presently have visiting nurse or other home services: No Alcohol intake: never Patient Tobacco Use Status: Former Tobacco user Tobacco use type: Cigarette service: No 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al status: disabled 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 Female Reproductive History Menstrual Age of Menarche: 12 Review of Systems Const Denies weakness ENT Denies dizziness Card Denies chest pain, Denies chest pain with activity, Denies syncope, Denies rapid heart rate, Denies pedal edema, Denies edema, Denies leg edema, Denies lightheadedness, Denies palpitations, Denies dyspnea, Denies dyspnea on exertion and Denies orthopnea Resp Denies cough, Denies dyspnea and Denies dyspnea on exertion GI Denies hematochezia and Denies change in stool character Musc Denies abnormal gait, Denies muscle cramps, Denies muscle weakness, Denies numbness, Denies radiating pain into limb and Denies tingling Neuro Denies abnormal gait, Denies dizziness, Denies syncope, Denies numbness, Denies tingling and Denies weakness Endo Denies palpitations Physical Exam Vital Signs: Last Vital Signs Pulse 83 05/26/25 14:18 BP 116/62 05/26/25 14:18 Const General: comfortable and no acute distress Orientation/consciousness: patient oriented x3 HEENT Other: Unremarkable Head: Yes normal to inspection Neck Neck: Yes normal visual inspection Chest Chest palpation & inspection: normal inspection of the chest Resp Auscultation: clear to auscultation bilaterally Cardio Palpation: normal PMI Heart sounds: S1 normal heart sound present, S2 normal heart sound present, no gallops, no murmurs and no rubs GI Palpation (GI): Soft to palpation Back/Spine/Pelvis Other: unremarkable Skin General skin exam: no rashes or lesions noted Neuro General: patient oriented x3 Extrem General: Yes normal to inspection Psych Mental Status: mental status grossly normal Office Procedures EKG Details: EKG with atrial sensed, ventricular paced rhythm at 83/Min. 29052-[id number], Complete Assessment & Plan Assessment & Plan (1) NICM (nonischemic cardiomyopathy): Code(s): I42.8 - Other cardiomyopathies Category: Medical (2) LBBB (left bundle branch block): Code(s): I44.7 - Left bundle-branch block, unspecified Category: Medical (3) Cardiac resynchronization therapy defibrillator ([employer]-D) in place: Onset Date: ~06/2023 Code(s): Z95.810 - Presence of automatic (implantable) cardiac defibrillator Category: Medical Plan In the last echocardiogram, LVEF is 30-35%. Previously, in a similar range. In 2017, about 45-50%. Cardiac catheterization shows normal coronary arteries. Overall, nonischemic cardiomyopathy related to left bundle-branch block. In the past, cardiac BNP levels have been very much in the normal range, indicating a well compensated cardiac status. For medications, she used to be on metoprolol succinate but listed as start rate at this time. Ideally, should switch back to succinate. Otherwise, on Entresto, spironolactone. We will check her ICD with next visit. Remote monitoring we will also need to be arranged as there are no recent transmissions. In the past, device settings were adjusted with lowering of VT detection zone. Discussion Notes We discussed the need to ensure her ICD is checked and connected properly, as it has not been monitored for several months. Patient was informed and verbally consented to the use of an ambient scribe for clinic note documentation during this visit. Coding Level of Care Code Est Pt Level 4 (05888) Complex EM visit Add On G2211 Diagnoses NICM (nonischemic cardiomyopathy) I42.8 LBBB (left bundle branch block) I44.7 Cardiac resynchronization therapy defibrillator ([employer]-D) in place Z95.810 CPT Codes EKG - CPT: 25240-[id number], Complete ([id number])
[2025-05-26 14:18] VITALS: BP 116/62; PULSE 83
--- OUTSIDE RECORDS SUMMARY | 2025-05-26 14:27 | XMS_ITS ---
Author Name [facility] Organization Unknown History of Medication Use Medication Directions Dispensed Refills Start Date End Date Stat aspirin enteric coated 81 MG EC tablet Take 1 tablet (81 mg total) by mouth daily. 03/04/2023 active apixaban (ELIQUIS) 5 MG tablet Take 1 tablet (5 mg total) by mouth every 12 (twelve) hours around the clock. 01/23/2023 03/04/2023 aborted gabapentin (NEURONTIN) 300 MG capsule Take 1 capsule (300 mg total) by mouth 3 (three) times a day. 01/23/2023 active metoCLOPRAMIDE (REGLAN) 5 MG/ML injection Infuse 2 mL (10 mg total) into a venous catheter 4 times daily (every 6 hours) as needed for nausea or vomiting. 01/23/2023 active ascorbic acid 250 MG tablet Take 1 tablet (250 mg total) by mouth daily. active fluticasone (FloNASE) 50 mcg/spray nasal spray 1 spray into each nostril daily. active fluticasone-salmetero l (ADVAIR HFA) 115-21 MCG/ACT inhaler Inhale 2 puffs 2 (two) times a day. active furosemide (LASIX) 20 MG tablet Take 1 tablet (20 mg total) by mouth daily. active Problems Problem Status Onset Date Problem Type Date of Resoluti on Source Vertebral artery dissection active 2023-01-16 ProblemAct CCT Encounters Encounter Type Encounter Reason Primary Diagnosis Location Date Ambulatory Dissection of vertebral artery Dissection of vertebral artery [facility] 02/19/2024 Ambulatory Dissection of vertebral artery [facility] 03/04/2023 Inpatient Dissection of vertebral artery [facility] 01/16/2023 Care Team Organization Name Specialty Phone Email Start Date End Da te [facility] FRANNIE ARSHAD Primary Care 03/04/2023 [facility] 03/04/2023 023 [facility] 01/16/2023 01/16/2023 [facility] 01/16/2023 023 [facility] 01/16/2023
--- OUTSIDE RECORDS SUMMARY | 2025-05-26 14:27 | XMS_ITS | Encounter Summary ---
Author Organization [employer] [facility] Address [address] [place] [address] Care Team Providers Care Starch Factory Laborer Name Role Phone Tara Paniagua RN Primary Care Provider [phone] Encounter Details Date Type Department Care Team (Late Contact Info) Description 12/28/2024 Lab Requisition [facility] [address] [place] [address] Benjamin Kim MD [address] [facility] [address] [place], [address] Heart failure, unspecified (CMS/HCC V24, CMS/HCC [...] Department Care Team (Late Contact Info) Description 06/29/2025 2:00 PM EDT Evaluation [facility] [address] [facility] [address] [place] [address] Trent Griffin, PT documented as of this encounter Procedures Procedure Name Priority Date/Time Associated Diagnosis Comments COMPLETE BLOOD COUNT Routine 12/29/2024 7:42 AM EST Heart failure, unspecified (CMS/HCC) BASIC METABOLIC PANEL Routine 12/29/2024 7:42 AM EST Heart failure, unspecified (CMS/HCC) documented in this encounter Results * (ABNORMAL) Basic metabolic panel (12/29/2024 7:42 AM EST) Sodium 143 133 - 145 mmol/L LAB CHEMISTRY METHOD 12/29/2024 3:[address] [facility] Potassium 4.2 3.5 - 5.5 mmol/L LAB CHEMISTRY METHOD 12/29/2024 3:[address] [facility] Chloride 107 96 - 110 mmol/L LAB CHEMISTRY METHOD 12/29/2024 3:[address] [facility] CO2 30 21 - 32 mmol/L LAB CHEMISTRY METHOD 12/29/2024 3:[address] [facility] Anion Gap 6 3 - 11 LAB CHEMISTRY METHOD 12/29/2024 3:[address] [facility] Glucose 114(H) 70 - 100 mg/dL LAB CHEMISTRY METHOD 12/29/2024 3:[address] [facility] BUN 37(H) 5 - 25 mg/dL LAB CHEMISTRY METHOD 12/29/2024 3:[address] [facility] Creatinine 1.03 0.50 - 1.10 mg/dL LAB CHEMISTRY METHOD 12/29/2024 3:[address] [facility] eGFR 66 >=60 mL/min/1. 73m2 LAB CHEMISTRY METHOD 12/29/2024 3:[address] [facility] Comment:Calculation based on the Chronic Kidney Disease Epidemiology Collaboration (CKD-EPI) equation refit without adjustment for race. BUN/Creatinine Ratio 35.9 LAB CHEMISTRY METHOD 12/29/2024 3:[address] [facility] Calcium 9.7 8.5 - 10.5 mg/dL LAB CHEMISTRY METHOD 12/29/2024 3:[address] [facility] Blood Venous blood specimen / Unknown Venipuncture / Unknown 12/29/2024 7:42 AM EST 12/29/2024 11:02 AM EST us Benjamin Kim MD LAB BLOOD ORDERABLES Final Resul t [facility] [address] [place] [address], * (ABNORMAL) Complete blood count (12/29/2024 7:42 AM EST) WBC 5.8 4.8 - 10.8 K/mcL LAB HEMETOLOGY METHOD 12/29/2024 11:[address] [facility] RBC 3.90 3.80 - 4.80 M/mcL LAB HEMETOLOGY METHOD 12/29/2024 11:[address] [facility] Hemoglobin 11.2(L) 11.5 - 16.0 g/dL LAB HEMETOLOGY METHOD 12/29/2024 11:[address] [facility] Hematocrit 36.0 35.0 - 47.0 % LAB HEMETOLOGY METHOD 12/29/2024 11:[address] [facility] MCV 91.8 79.0 - 98.0 FL LAB HEMETOLOGY METHOD 12/29/2024 11:[address] [facility] MCH 28.6 27.0 - 32.0 pcg LAB HEMETOLOGY METHOD 12/29/2024 11:[address] [facility] MCHC 31.1(L) 32.0 - 37.0 g/dL LAB HEMETOLOGY METHOD 12/29/2024 11:[address] [facility] RDW 14.1 11.0 - 15.0 % LAB HEMETOLOGY METHOD 12/29/2024 11:[address] [facility] Platelets 282 130 - 400 K/mcL LAB HEMETOLOGY METHOD 12/29/2024 11:32 AM EST [facility] MPV 10.1 7.0 - 11.0 FL LAB HEMETOLOGY METHOD 12/29/2024 11:32 AM EST [facility] NRBC 0.0 <1.0 % LAB HEMETOLOGY METHOD 12/29/2024 11:32 AM EST [facility] NRBC Absolute 0.00 <0.10 K/mcL LAB HEMETOLOGY METHOD 12/29/2024 11:32 AM EST [facility] Blood Venous blood specimen / Unknown Venipuncture / Unknown 12/29/2024 7:42 AM EST 12/29/2024 11:02 AM EST us Benjamin Kim MD LAB BLOOD ORDERABLES Final Resul t [facility] [address] [place] [address], documented in this encounter Visit Diagnoses Diagnosis Heart failure, unspecified (CMS/HCC V24, CMS/HCC V28) Heart failure, unspecified documented in this encounter Care Teams Starch Factory Laborer Relationship Specialty Start Date End Date Tara Paniagua RN [address] [place] [phone] PCP - General 07/24/22 documented as of this encounter
--- OUTSIDE RECORDS SUMMARY | 2025-05-26 14:27 | XMS_ITS | Clinical Summary ---
Author Organization [facility] Address [address] [place] [address] Care Team Providers Care Marketing Planner Name Role Phone Hilda Butt MD Primary Care Provider + Char Juarez MD Unavailable [phone] Allergies No known active allergies Medications lidocaine [...] place to sleep or slept in a fpc (including now)? No 01/17/2023 Comments Unknown Sex [...] 68 02/19/2024 2:34 PM EDT Temperature 36.9 C (98.4 F) 01/23/2023 12:00 PM EDT Respiratory Rate 18 02/19/2024 2:34 PM EDT [...] Zoster (Shingles) Vaccine (1 of 2) 2022 COVID-19 Vaccine (5 - 2023-2 5 season) 2024 11/08/2022, 07/30/2022, 08/27/2021, Additional history exists Influenza Vaccine 05/27/2025 07/17/2023, , 07/31/2021, Additional history exists HIV Screening Completed 05/09/2022 Chronic Controlled Substance User PDMP Review Discontinued 01/15/2023 Insurance MEDICAID OUT OF STATE [facility] MEDICARE PART A & B [facility] MEDICARE OUT OF [facility] Advance Directives * Full Code (Latest Code Status on File) Date Activated Date Inactivated Comments 01/16/2023 4:08 AM Question Answer Comments Decision Thoroughly Discussed with: Patient Care Teams Marketing Planner Relationship Specialty Start Date End Date Hilda Butt MD [address] [place] [address] PCP - General General Medicine 01/16/23 Char Juarez MD [address] [place] [address] 01/16/23
--- OUTSIDE RECORDS SUMMARY | 2025-05-26 14:27 | XMS_ITS | Encounter Summary ---
Author Organization [employer] Address [address] [facility] 7t [place] [address] Care Team Providers Care Milk And Cream Grader Name Role Phone Hilda Butt MD Primary Care Provider [phone] Encounter Details Date Type Department Care Team ([facility] st Contact Info) Description 03/24/2024 Orders Only [facility] MEDICINE [address] [place], [place] [phone] Hilda Butt MD [address] [place], [place] [phone] Vertebral artery dissection (CMS/HCC) (Primary Dx) Social [...] Care Team (Late st Contact Info) Description 07/18/2025 2:30 PM EDT Office Visit [facility] MEDICINE [address] [place] [address] Hilda Butt MD [address] [place] [phone] Scheduled Orders Name Type Priority Associated Diagnoses Orde r Schedule Basic Metabolic Panel Lab Routine Vertebral artery dissection (CMS/HCC) Expected: 03/24/2024 (Approximate), Expires: 03/24/2025 documented as of this encounter Goals Goal Patient Goal Type Associated Problems Recent Progress Patient-Stated? Author Blood Pressure < 140/90 Blood Pressure 136/80( 025 2:03 PM EDT) No Daria Cardoso, PharmD documented as of this encounter Visit Diagnoses Diagnosis Vertebral artery dissection (CMS/HCC)- Primary Dissection of vertebral artery documented in this encounter Additional Health Concerns Assessment Noted Time PHQ-9 Depression Total Score: 0 11/17/19 24 10:34 AM EST documented as of this encounter Care Teams Milk And Cream Grader Relationship Specialty Start Date End Date Hilda Butt MD [address] [place] [address] [phone] PCP - General Family Medicine 06/20/22 Aveanna 04/08/25 documented as of this encounter
== END 2025-05-26 14:49 | disposition home or self-care (01) ==
LOC: HO.HCS 14:13
PROVIDERS: PCP General Practice; Visit Provider Internal Medicine
DX: I42.8 Other cardiomyopathies (principal); I44.7 Left bundle-branch block, unspecified; Z95.810 Presence of automatic (implantable) cardiac defibrillator
CPT/HCPCS: 93010; 99214; G2211

== ENCOUNTER → 2025-05-26 14:12 | Outpatient (BNVA) | payer OTHER, SELFPAY | PROVIDERS: PCP General Practice; Visit Provider Internal Medicine | DX: I49.8 Other specified cardiac arrhythmias (principal); I42.8 Other cardiomyopathies; I42.9 Cardiomyopathy, unspecified; I44.7 Left bundle-branch block, unspecified; Z95.810 Presence of automatic (implantable) cardiac defibrillator | CPT/HCPCS: 93005; 99212 ==

== ENCOUNTER 2025-07-26 14:23 | Outpatient (REF) | payer OTHER, SELFPAY ==
--- NOTE | ~2025-07-26 | MM_ITS ---
EXAMINATION(S): MM DIAGNOSTIC DIGITAL BREAST TOMOSYNTHESIS, BILATERAL CLINICAL INFORMATION: Left breast cancer, status post lumpectomy in 2021. COMPARISON: Comparison made to multiple prior, most recent July 15, 2024, and most remote August 28, 2022. TECHNIQUE: Digital breast tomosynthesis is performed in both the mediolateral oblique and craniocaudal views along with computer-aided detection (CAD). Synthesized 2D images are generated from the tomosynthesis. Best possible images according to technologist's notes. FINDINGS: BREAST COMPOSITION: The breasts are heterogeneously dense, which may obscure small masses. RIGHT BREAST: No significant masses, suspicious calcifications or other abnormalities are seen. LEFT BREAST: Post lumpectomy changes. Limited examination. Within this limitation, no significant masses, suspicious calcifications or other abnormalities are seen. MM/MM tomosynthesis diagnostic BI IMPRESSION: BILATERAL BREASTS: Limited examination. Within this limitation, benign, no mammographic evidence of malignancy. Patient may return to routine screening mammogram 12 months. ASSESSMENT: BI-RADS: Category 1: Negative RECOMMENDATION: 1 year F/U Results were provided to the patient at time of visit by the technologist. This patient's information was entered into a reminder system with a target due date for their next mammogram. Electronically signed by: Roberto Joel MD 07/26/2025 06:41 PM EDT
--- OUTSIDE RECORDS SUMMARY | 2025-07-26 15:45 | XMS_ITS | Encounter Summary ---
Author Organization [employer] Address [address] [facility] 7t [place] [address] Care Team Providers Care Tire Mold Tester Name Role Phone Hilda Butt MD Primary Care Provider [phone] Encounter Details Date Type Department Care Team ([facility] st Contact Info) Description 03/24/2024 Orders Only [facility] MED[facility] [address] [place], [place] [phone] Hilda Butt MD [address] [place], [place] [phone] Vertebral artery dissection (CMS/HCC) (Primary Dx) Social [...] Author Blood Pressure < 140/90 Blood Pressure 118/80( 025 3:11 PM EDT) No Daria Cardoso, PharmD documented as of this encounter Visit Diagnoses Diagnosis Vertebral artery dissection- Primary Dissection of vertebral artery documented in this encounter Additional Health Concerns Assessment Noted Time PHQ-9 Depression Total Score: 0 11/17/19 24 10:34 AM EST documented as of this encounter Care Teams Tire Mold Tester Relationship Specialty Start Date End Date Hilda Butt MD [address] [place] [address] PCP - General Family Medicine 06/20/22 Stareashelly 04/08/25 documented as of this encounter
--- OUTSIDE RECORDS SUMMARY | 2025-07-26 15:45 | XMS_ITS | Encounter Summary ---
Author Organization [employer] Address 75 [facility] 7t [place] [address] Care Team Providers Care C4 Planner Name Role Phone Hilda Butt MD Primary Care Provider [phone] Reason for Visit * Reason Comments Med Refill Encounter Details Date Type Department Care Team ([facility] st Contact Info) Description 02/03/2023 Refill [facility] MEDICINE [address] [place] [phone] Hilda Butt MD [address] [place], [place] [phone] Social History Tobacco Use Types Packs/Day Years [...] documented as of this encounter Care Teams C4 Planner Relationship Specialty Start Date End Date Hilda Butt MD [address] [place] [address] PCP - General Family Medicine 06/20/22 Wilfrido 04/08/25 documented as of this encounter
--- OUTSIDE RECORDS SUMMARY | 2025-07-26 15:46 | XMS_ITS | Encounter Summary ---
Author Organization [employer] Address 75 [facility] 7t [place] [address] Care Team Providers Care Fire Marshal Refinery Name Role Phone Hilda Butt MD Primary Care Provider [phone] Reason for Visit * Reason Onset Date Comments Med Refill 08/10/2024 Encounter Details Date Type Department Care Team ([facility] Contact Info) Description 08/10/2024 Refill [facility] [address] [place], [place] [phone] Hilda Butt MD [address] [place] [address] Social History Tobacco Use Types Packs/Day Years [...] as of this encounter Care Teams Fire Marshal Refinery Relationship Specialty Start Date End Date Hilda Butt MD [address] [place] [address] PCP - General Family Medicine 06/20/22 Wilfrido 04/08/25 documented as of this encounter
--- OUTSIDE RECORDS SUMMARY | 2025-07-26 15:46 | XMS_ITS | Encounter Summary ---
Author Organization [employer] Address [address] [facility] 7t [place] [address] Care Team Providers Care Office Machines Sales Representative Name Role Phone Hilda Btut MD Primary Care Provider [phone] Reason for Visit * Reason Onset Date Comments Med Refill 11/05/2024 Encounter Details Date Type Department Care Team ([facility] st Contact Info) Description 11/05/2024 Refill [facility] MED[facility]INE [address] [place], [place] [phone] Hilda Butt MD [address] [place], [place] [phone] Social History Tobacco Use Types Packs/Day Years [...] documented as of this encounter Care Teams Office Machines Sales Representative Relationship Specialty Start Date End Date Hilda Butt MD [address] [place] [address] PCP - General Family Medicine 06/20/22 Wilfrido 04/08/25 documented as of this encounter
--- OUTSIDE RECORDS SUMMARY | 2025-07-26 15:46 | XMS_ITS | Encounter Summary ---
Author Organization [employer] Address 75 [facility] 7t [place] [address] Care Team Providers Care Leather Polisher Name Role Phone Hilda Butt MD Primary Care Provider Reason for Visit * Reason Comments Med Refill Encounter Details Date Type Department Care Team ([facility] st Contact Info) Description 06/21/2025 Refill [facility] [address] [place], [place] [phone] Hilda Butt MD [address] [place], [place] [phone] Social History Tobacco Use Types Packs/Day Years Used Date Smoking Tobacco: Former Smokeless Tobacco: Never Alcohol Use Standard Drinks/Week Comments Never 0 (1 standard drink = 0.6 oz pur e alcohol) Depression Answer Date Recorded Patient Health Questionnaire-9 Score 0 04/19/2025 Patient Health Questionnaire-9 Score 0 04/19/2025 Last PHQ-9: Questionnaire Data Not on file 0 04/19/2025 Housing Stability Answer Date Recorded What is your housing situation today? I have jadon samson 04/19/[address] you li ve. Do you have problems with any of the following? None of the above 04/19/2025 Food Insecurity Answer Date Recorded Within the past 12 months, y ou worried that your food would run out before you got money to buy more: Never True 04/19/2025 Within the past 12 months,th e food you bought just didn't last and you didn't have enough money to get more: Never True Transportation Answer Date Recorded In the past 12 months, has l ack of transportation kept you from medical appts, meetings, work or from getting things needed for daily living? No 04/19/2025 Utilities Answer Date Recorded In the past 12 months, has t he electric, gas, oil or water company threatened to shut off services in your home? No 04/19/2025 Depression Answer Date Recorded Patient Health Questionnaire-2 Score 0 04/19/2025 Internet Access Answer Date Recorded Internet Access Q1 Yes 08/31/2024 Internet Access Q2 Not on file 08/31/2024 Comments No Sex and Gender Information Value Date Recorded [...] Noted Time PHQ-9 Depression Total Score: 0 04/19/20 25 10:34 AM EDT documented as of this encounter Care Teams Leather Polisher Relationship Specialty Start Date End Date Hilda Butt MD [address] [place] [address] PCP - General Family Medicine 06/20/22 Stareashelly 04/08/25 documented as of this encounter
--- OUTSIDE RECORDS SUMMARY | 2025-07-26 15:46 | XMS_ITS | Encounter Summary ---
Author Organization [employer] Address [address] [facility] 7t [place] [address] Care Team Providers Care Urban Forester Name Role Phone Hilda Butt MD Primary Care Provider [phone] Encounter Details Date Type Department Care Team ([facility] Contact Info) Description 09/21/2024 Orders Only [facility] MEDICINE [address] [place], [place] [phone] Hilda Butt MD [address] [place], [place] [phone] Social History Tobacco Use Types Packs/Day Years [...] documented as of this encounter Care Teams Urban Forester Relationship Specialty Start Date End Date Hilda Butt MD [address] [place] [address] PCP - General Family Medicine 06/20/22 Stareashelly 04/08/25 documented as of this encounter
--- OUTSIDE RECORDS SUMMARY | 2025-07-26 15:46 | XMS_ITS | Encounter Summary ---
Author Organization [employer] Address [address] [facility] 7[address] [place] [address] Care Team Providers Care Mail Machine Operator Name Role Phone Hilda Butt MD Primary Care Provider [phone] Reason for Visit * Reason Onset Date Comments Med Refill 02/25/2024 Encounter Details Date Type Department Care Team ([facility] st Contact Info) Description 02/25/2024 Refill [facility] MEDICINE [address] [place], [place] [phone] Hilda Butt MD [address] [place], [place] [phone] Dizziness Social History Tobacco Use Types Packs/Day [...] as of this encounter Care Teams Mail Machine Operator Relationship Specialty Start Date End Date Hilda Butt MD [address] [place] [address] PCP - General Family Medicine 06/20/22 Wilfrido 04/08/25 documented as of this encounter
--- OUTSIDE RECORDS SUMMARY | 2025-07-26 15:46 | XMS_ITS | Encounter Summary ---
Author Organization [employer] Address [address] [facility] 7[address] [place] [address] Care Team Providers Care Boat Carpenter Mechanic Name Role Phone Hilda Butt MD Primary Care Provider [phone] Reason for Visit * Reason Onset Date Comments Med Refill 11/19/2024 Encounter Details Date Type Department Care Team ([facility] st Contact Info) Description 11/19/2024 Refill [facility] [address] [place], [place] [phone] Hilda Butt MD [address] [place] [address] Social History Tobacco Use Types Packs/Day Years [...] documented as of this encounter Care Teams Boat Carpenter Mechanic Relationship Specialty Start Date End Date Hilda Butt MD [address] [place] [address] PCP - General Family Medicine 06/20/22 Wilfrido 04/08/25 documented as of this encounter
--- OUTSIDE RECORDS SUMMARY | 2025-07-26 15:46 | XMS_ITS | Encounter Summary ---
Author Organization [employer] [facility] Address [address] [place] [address] Care Team Providers Care Gastroenterology Nurse Name Role Phone Tara Paniagua RN Primary Care Provider Encounter Details Date Type Department Care Team (Late Contact Info) Description 12/28/2024 Lab Requisition [facility] [address] [place] [address] Benjamin Kim MD [address] [facility] [address] [place], [phone] Heart failure, unspecified (CMS/HCC V24, CMS/HCC [...] Department Care Team (Late Contact Info) Description 08/11/2025 10:00 AM EDT Evaluation [facility] [address] [facility] [address] [place] [address] Trent Griffin, PT documented as of this [...] mmol/L LAB CHEMISTRY METHOD 12/29/2024 3:20 PM [facility] Potassium 4.2 3.5 - 5.5 mmol/L LAB CHEMISTRY METHOD 12/29/2024 3:20 PM [facility] Chloride 107 96 - 110 mmol/L LAB CHEMISTRY METHOD 12/29/2024 3:20 PM [facility] CO2 30 21 - 32 mmol/L LAB CHEMISTRY METHOD 12/29/2024 3:20 PM [facility] Anion Gap 6 3 - 11 LAB CHEMISTRY METHOD 12/29/2024 3:20 PM [facility] Glucose 114(H) 70 - 100 mg/dL LAB CHEMISTRY METHOD 12/29/2024 3:20 PM [facility] BUN 37(H) 5 - 25 mg/dL LAB CHEMISTRY METHOD 12/29/2024 3:20 PM [facility] Creatinine 1.03 0.50 - 1.10 mg/dL LAB CHEMISTRY METHOD 12/29/2024 3:20 PM [facility] eGFR 66 >=60 mL/min/1. 73m2 LAB CHEMISTRY METHOD 12/29/2024 3:20 PM [facility] Comment:Calculation based on the Chronic Kidney Disease Epidemiology Collaboration (CKD-EPI) equation refit without adjustment for race. BUN/Creatinine Ratio 35.9 LAB CHEMISTRY METHOD 12/29/2024 3:20 PM [facility] Calcium 9.7 8.5 - 10.5 mg/dL LAB CHEMISTRY METHOD 12/29/2024 3:20 PM [facility] Blood Venous blood specimen / Unknown Venipuncture / Unknown 12/29/2024 7:42 AM EST 12/29/2024 11:02 AM EST us Benjamin Kim MD LAB BLOOD ORDERABLES Final Resul t [facility] [address] [place] [address], * (ABNORMAL) Complete blood count (12/29/2024 7:42 AM EST) WBC 5.8 4.8 - 10.8 K/mcL LAB HEMETOLOGY METHOD 12/29/2024 11:32 AM [facility] RBC 3.90 3.80 - 4.80 M/mcL LAB HEMETOLOGY METHOD 12/29/2024 11:32 AM [facility] Hemoglobin 11.2(L) 11.5 - 16.0 g/dL LAB HEMETOLOGY METHOD 12/29/2024 11:32 AM [facility] Hematocrit 36.0 35.0 - 47.0 % LAB HEMETOLOGY METHOD 12/29/2024 11:32 AM [facility] MCV 91.8 79.0 - 98.0 FL LAB HEMETOLOGY METHOD 12/29/2024 11:32 AM [facility] MCH 28.6 27.0 - 32.0 pcg LAB HEMETOLOGY METHOD 12/29/2024 11:32 AM [facility] MCHC 31.1(L) 32.0 - 37.0 g/dL LAB HEMETOLOGY METHOD 12/29/2024 11:32 AM [facility] RDW 14.1 11.0 - 15.0 % LAB HEMETOLOGY METHOD 12/29/2024 11:32 AM [facility] Platelets 282 130 - 400 K/mcL LAB HEMETOLOGY METHOD 12/29/2024 11:32 AM EST [facility] MPV 10.1 7.0 - 11.0 FL LAB HEMETOLOGY METHOD 12/29/2024 11:32 AM EST [facility] NRBC 0.0 <1.0 % LAB HEMETOLOGY METHOD 12/29/2024 11:32 AM EST [facility] NRBC Absolute 0.00 <0.10 K/mcL LAB HEMETOLOGY METHOD 12/29/2024 11:32 AM EST [facility] Blood Venous blood specimen / Unknown Venipuncture / Unknown 12/29/2024 7:42 AM EST 12/29/2024 11:02 AM EST us Benjamin Kim MD LAB BLOOD ORDERABLES Final Resul t [facility] [address] [place] [address], documented in this encounter Visit Diagnoses Diagnosis Heart failure, unspecified (CMS/HCC V24, CMS/HCC V28) Heart failure, unspecified documented in this encounter Care Teams Gastroenterology Nurse Relationship Specialty Start Date End Date Tara Paniagua RN [address] [place] [phone] PCP - General 07/24/22 documented as of this encounter
--- OUTSIDE RECORDS SUMMARY | 2025-07-26 15:46 | XMS_ITS | Encounter Summary ---
Author Organization [employer] Address [address] [facility] 7[address] [place] [address] Care Team Providers Care Impregnator Name Role Phone Hilda Butt MD Primary Care Provider [phone] Reason for Visit * Reason Onset Date Comments Med Refill 03/11/2024 Encounter Details Date Type Department Care Team ([facility] Contact Info) Description 03/11/2024 Refill [facility]S [address] [place], [place] [phone] Hilda Butt MD [address] [place] [address] Itchy skin of anus and genitals; Recurrent [...] documented as of this encounter Care Teams Impregnator Relationship Specialty Start Date End Date Hilda Butt MD [address] [place] [address] PCP - General Family Medicine 06/20/22 Stareashelly 04/08/25 documented as of this encounter
--- OUTSIDE RECORDS SUMMARY | 2025-07-26 15:46 | XMS_ITS | Clinical Summary ---
Author Organization [employer] Address [address] [place] [address] Care Team Providers Care Metallurgical Inspector Name Role Phone Hilda Butt MD Primary Care Provider [phone] Allergies Active Allergy Reactions Criticality Noted Date Comments Lisinopril Cough High 06/13/2021 Medications * This document contains information received from the source organization and may not represent a complete record from that organization. Entresto 24-26 MG tablet Take 1 tablet by mouth 2 times daily. 024 Active spironolactone (Aldactone) 25 MG tablet Take 1 tablet by mouth Once per day. 024 Active triamcinolone (Kenalog) 0.1 % cream APPLY A THIN LAYER TOPICALLY TO THE AFFECTED AREA(S) TWICE A DAY 454 g 1 024 Active lidocaine-prilo nola (Emla) 2.5-2.5 % cream APPLY TOPICALLY EVERY MORNING 100 g 3 024 Active Ascorbic Acid (vitamin C) 250 MG tablet TAKE 1 TABLET BY MOUTH EACH MORNING WITH IRON ^1R1 90 tablet 3 024 Active Emollient (DermaPhor) ointmentIndicat ions:Itchy skin of anus and genitals APPLY TO AFFECTED AREA(S) OF DRY SKIN NEEDED (BULK) 396 g 3 024 Active montelukast (Singulair) 10 MG tablet Take 1 tablet (10 mg) by mouth at bedtime. 90 tablet 3 024 Active liver oil-zinc oxide (Desitin) 40 % ointment APPLY TOPICALLY TO RECTUM DAILY IF NEEDED FOR IRRITATION 113 g 3 025 Active cholecalciferol VITAMIN D (Vitamin D-3) 50 MCG (1999 UT) capsuleIndicati ons:Vitamin D deficiency TAKE ONE CAPSULE BY MOUTH EVERY MORNING ^1R1 30 capsule 5 025 Active Petrolatum 42 % ointment APPLY TOPICALLY TO AFFECTED AREAS NEEDED DAILY FOR DRY SKIN (BULK) 100 g 025 Active betamethasone valerate (Valisone) 0.1 % ointment APPLY TO AFFECTED AREA(S) OF FINGER SPARINGLY ONCE DAILY FOR 7-10 DAYS (BULK) 15 g 1 025 Active aspirin (Aspirin Low Dose) 81 MG EC tablet TAKE ONE TABLET BY MOUTH EVERY MORNING ^1R1 30 tablet 11 025 Active ferrous sulfate 325 (65 Fe) MG tablet Take 1 tablet by mouth with breakfast. Active fluticasone (Flonase) 50 MCG/ACT nasal sprayIndication s:Recurrent acute serous otitis media of right ear SHAKE LIQUID AND USE 1 SPRAY IN EACH NOSTRIL ONCE DAILY (BULK) 16 g 025 Active furosemide (Lasix) 20 MG tablet TAKE ONE TABLET BY MOUTH EVERY DAY ^1R1 30 tablet 025 Active meclizine (Antivert) 12.5 MG tablet TAKE ONE TABLET BY MOUTH EVERY 8 HOURS NEEDED FOR DIZZINESS (VIAL) 60 tablet 025 Active pantoprazole (ProtoNix) 40 MG EC tablet TAKE ONE TABLET BY MOUTH EVERY DAY ^1R1 30 tablet 025 Active tiZANidine (Zanaflex) 2 MG tablet TAKE ONE TABLET BY MOUTH EVERY 8 HOURS NEEDED FOR SPASMS OR SPASM PAIN (VIAL) 30 tablet 025 Active traZODone (Desyrel) 100 MG tablet TAKE ONE TABLET BY MOUTH EVERY DAY ^1R4 30 tablet 5 025 Active metoprolol succinate XL (Toprol XL) 25 MG 24 hr tablet Take 1 tablet (25 mg) by mouth Once per day. Do not crush or chew. 90 tablet 3 025 2025 Active albuterol 108 (90 Base) MCG/ACT inhalerIndicati ons:Chronic obstructive pulmonary disease with acute exacerbation (CMS/HCC) (HCC) INHALE ONE PUFF BY MOUTH EVERY 6 HOURS NEEDED FOR SHORTNESS OF BREATH OR COUGH (BULK) 6.7 g 6 025 Active sertraline (Zoloft) 50 MG tablet TAKE ONE TABLET BY MOUTH EVERY DAY ^1R1 30 tablet 11 Active gabapentin (Neurontin) 100 MG capsule Take 2 capsules (200 mg) by mouth 3 times daily. 180 capsule 1 025 Active atorvastatin (Lipitor) 80 MG tablet TAKE ONE TABLET BY MOUTH EVERY MORNING ^1R1 90 tablet 3 025 Active metoprolol tartrate (Lopressor) 25 MG tablet Active ibuprofen 400 MG tablet TAKE 1 TABLET BY MOUTH THREE TIMES A DAY 90 tablet 025 Active fexofenadine (Lexy) 180 MG tablet Take 1 tablet (180 mg) by mouth Once per day. 90 tablet 3 025 2024 Active ipratropium-alb uterol (Duo-Neb) 0.5-2.5 mg/3 mL nebulizer solution Take 3 mL by nebulization in the morning, at noon, and at bedtime. 180 mL 3 025 Active budesonide-form oterol (Symbicort) 80-4.5 MCG/ACT inhaler Inhale 2 puffs in the morning and at bedtime. Rinse mouth with water after use to reduce aftertaste and incidence of candidiasis. Do not swallow. 1 each 025 2025 Active Umeclidinium [place] (Incruse Ellipta) 62.5 MCG/ACT aerosol powder Inhale 1 Act (62.5 mcg) Once per day. 1 each Active zolpidem (Ambien) 5 MG tablet TAKE ONE TABLET BY MOUTH IF NEEDED AT BEDTIME FOR SLEEP FOR UP TO 5 DAYS (VIAL) 5 tablet Active ipratropium-alb uterol (Duo-Neb) 0.5-2.5 mg/3 mL nebulizer solution USE 3 ML VIA NEBULIZER EVERY 6 HOURS NEEDED FOR WHEEZING 023 2024 Discontinued(R eorder (will not trigger notification to Pharmacy)) cetirizine (ZyrTEC) 10 MG tablet TAKE ONE TABLET BY MOUTH EVERY DAY (VIAL) 360 tablet 025 2024 Discontinued(T herapy completed) guaiFENesin (Mucinex) 600 MG 12 hr tabletIndicatio ns:Subacute cough Take 1 tablet (600 mg) by mouth 2 times daily. For cough 60 tablet 025 2024 Discontinued(T herapy completed) ibuprofen 400 MG tablet TAKE 1 TABLET BY MOUTH THREE TIMES A DAY 90 tablet 025 2024 Discontinued(R eorder (will not trigger notification to Pharmacy)) zolpidem (Ambien) 5 MG tablet Take 1 tablet (5 mg) by mouth if needed at bedtime for sleep for up to 5 days. 5 tablet 025 2024 Discontinued Active Problems Problem Noted Date Diagnosed Date Dissection of right carotid artery 05/12/2025 Hemiplegia affecting left nondominant side (CMS/ HCC) 04/19/2025 Status post cerebrovascular accident 04/19/2025 Assessment & Plan (05/12/2025 1:59 PM EDT): Neurology referral for ongoing collaborative care Referral for L AFO fitting due to L foot dragging when in her wheelchair S/P carotid endarterectomy 04/19/2025 Congestive heart failure 12/09/2024 Screening for cervical cancer 02/20/2024 Post covid-19 condition, unspecified 11/19/2023 Assessment & Plan (11/19/2023 11:16 AM EST): Refer to PT for fatigue and deconditioning after being hospitalized for COVID PNA in early Oct 2023 Colon cancer screening 11/19/2023 Assessment & Plan (11/19/2023 11:17 AM EST): Referred to [facility] Urticarial rash 10/21/2023 Assessment & Plan (10/21/2023 [...] decrease risk of injuries related to falls Mixed stress and urge urinary incontinence 02/26 Assessment & Plan (05/12/2025 1:59 PM EDT): Patient with mixed incontinence s/p bladder sling surgery in 2019 For hygiene purposes and to decrease the risk of UTIs and falls, it is recommended that she have incontinence supplies to include large briefs and wipes. When she had a CVA in 11/2024, she developed full urinary incontinence and needs Washable ped pads in addition to disposable pads, 3 per day. Assessment & Plan (04/19/2024 7:33 PM EDT): [...] and results to Dr Ramirez, neurologist at [facility] regarding her sensation of pain and buzzing in the ears and head and whether it is related to history of vertebral artery dissection Assessment & Plan (02/24/2024 8:17 AM EDT): Unclear exactly what happened with neurologist Dr Rodrigues at [facility], she claims she was told she could not be seen at their practice and referred to [facility]. - recommend CT scan to evaluate dissection - see Dr Ramirez at [facility] Assessment & Plan (11/19/2023 11:22 AM [...] ER for any stroke symptoms Nonischemic cardiomyopathy (CMS/HCC) 11/13/2022 Assessment & Plan (11/03/2024 8:20 AM EST): Had BREAKER TENDER-D placed by Dr Chen at [facility] 9.28.23 Dizziness and SOB had improved immediately [...] & Plan (06/11/2024 8:46 AM EDT): Had BREAKER TENDER-D placed by Dr Chen at [facility] 9..23 Dizziness and SOB had improved immediately after placement, then worse again after COVID Supposed to undergo 24-32 weeks of cardiac rehab, went to 4 and then authorization I replaced the order today for ongoing cardiac rehabilitation, pt needs this to get stronger and more active safely Assessment & Plan (11/19/2023 11:21 AM EST): Had BREAKER TENDER-D placed by Dr Chen at [facility] 9..23 Dizziness and SOB had improved immediately after placement, then worse again after COVID Assessment & Plan (07/07/2023 9:11 AM EDT): Having BREAKER TENDER-D placed by Dr Chen at [facility] 9..23 Will evaluate SOB and other symptoms after that Assessment & Plan (11/13/2022 7:48 AM EST): EF 35% Followed by cardiology, Shannan Pinon at [facility] Carotid artery disease 11/08/2022 Allergic conjunctivitis 09/28/2022 Atherosclerosis of aorta 09/28/2022 Atherosclerosis of right carotid artery 09/28/20 22 Bipolar II disorder ([facility]) 09/28/2022 Assessment & Plan (06/11/2024 8:49 AM EDT): Had been on Seroquel and then Depakote, discontinued both due to concerns about side effects psychofarm followup last 02/2022 Strong anxiety component currently with partner anxiety Will try SSRI for anxiety and speak with pychofarm and then patient about restarting mood stabilizer, Seroquel or [place] Assessment & Plan (06/12/2023 10:05 AM EDT): [...] EST): On Seroquel psychofarm followup 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 In between being hospitalized, intubated, and in rehab, these inhalers seem to have been lost from her med list Will restart them today, except for Advair in advance of repeat pulmonology followup Will see if she can tolerate PFTs to better stage her COPD Followup via phone/GoSurf Accessoriest message if coughing not imporved within a week of restarting inhalers Assessment & Plan (07/07/2023 9:09 AM EDT): On Advair and Incrusa quit smoking 5 years ago DEREJE prn pulm referral to optimize mg[facility] Resolved Problems Problem Noted Date Diagnosed Date Resolved Date Stenosis of both internal carotid arteries 01/23/2024 04/19/2025 Assessment & Plan (11/03/2024 8:18 AM EST): Followed by [facility] for this 12/2023 study 50-79% stenosis yeny, CTA 05/19 increased to 80-99% R side Will have R endarterectomy 11/22/24 Letter given for increased 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 in post-op period ER precautions Assessment & Plan (06/11/2024 8:40 AM EDT): Followed by [facility] for this They have not recommended carotid endarterectomy Assessment & Plan (01/23/2024 3:10 PM EDT): Refer to vascular for symptomatic internal carotid artery stenosis, consult vascular about potential carotid endarterectomy Encounter for routine adult physical exam with abnormal findings 11/19/2023 05/12/2025 Assessment & Plan (11/19/2023 11:20 AM EST): Referred for colon cancer screening Declines [facility] today Gastroesophageal reflux dise ase without esophagitis 07/07/2023 05/09/2025 Assessment & Plan (07/07/2023 9:11 AM EDT): Cont Pantoprazole 40mg now once a day Class 1 obesity with serious comorbidity and body mass index (BMI) of 33.0 to 33.9 in adult 07/03/2017 05/12/2025 Assessment & Plan (11/13/2022 7:46 AM EST): Diet efforts Encounters * This document contains information received from the source organization and may not represent a complete record from that organization. Date Type Department Care Team Description 07/20/2025 Refill [facility] [address] [place] [phone] Hilda Butt MD 07/18/2025 2:30 PM EDT Telemedicine [facility] [address] [place] [phone] Hilda Butt MD Mild chronic obstructive pulmonary disease (CMS/HCC) (Primary Dx); COPD exacerbation (CMS/HCC) 07/18/2025 Travel 07/15/2025 Refill [facility] [address] [place] [phone] Hilda Butt MD 07/12/2025 Refill [facility] [address] [place] [phone] Hilda Butt MD 07/08/2025 Patient Outreach [facility] [address] [place] [phone] Hilda Butt MD Pre-visit Planning (SDOH screening completed on 04/19/2025) 07/06/2025 Refill [facility] [address] [place] [phone] Hilda Butt MD 06/24/2025 3:15 PM EDT Office Visit [facility] [address] [place] [phone] Hilda Butt MD Cough, unspecified type 06/24/2025 Travel 06/23/2025 Refill [facility] [address] [place] [address] Hilda Butt MD 06/22/2025 Refill [facility] [address] [place] [address] Hilda Butt MD 06/21/2025 Refill [facility] [address] [place] [address] Hilda Butt MD 06/20/2025 Telephone [facility] [address] [place] [address] Hilda Butt MD Nurse Triage 06/15/2025 Refill [facility] [address] [place] [address] Hilda Butt MD 06/13/2025 Refill [facility] [address] [place] [address] Hilda Butt MD Chronic obstructive pulmonary disease with acute exacerbation (CMS/HCC) 06/02/2025 Telephone [facility] [address] [place] [address] Hilda Butt MD Med Refill 05/26/2025 Telephone [facility] [address] [place] [address] JuddAllyn foley, OD 05/24/2025 Telephone [facility] [address] [place] [address] Hilda Butt MD referral question 05/19/2025 Telephone [facility] [address] [place] [phone] Hilda Butt MD fyi 05/13/2025 Orders Only [facility] [address] [place] [phone] Hilda Butt MD Spastic hemiplegia of left nondominant side as late effect of cerebral infarction ([facility]) (Primary Dx); Status post cerebrovascular accident; S/P carotid endarterectomy 05/13/2025 Telephone [facility] [address] [place] [address] Hilda Butt MD Call Back Request; Referral 05/13/2025 Telephone [facility] [address] [place] [address] Hilda Butt MD Medication Question 05/12/[address] [address] Hilda Butt MD Durable Medical Equipment (DME Request) 05/11/[address] [address] Hilda Butt MD 05/11/[address] [address] Hilda Butt MD Durable Medical Equipment (DME: 2 Wheeled walker with with a left arm platform) 05/10/[address] [address] Hilda Butt MD Recurrent acute serous otitis media of right ear 05/09/2025 2:00 PM EDT Office Visit [address] [address] Hilda Butt MD Status post cerebrovascular accident (Primary Dx); Chronic diastolic congestive heart failure (CMS/HCC); Atherosclerosis of right carotid artery; S/P carotid endarterectomy; Dissection of right carotid artery (CMS/HCC); Bipolar II disorder (CMS/HCC); Mixed stress and urge urinary incontinence; Vertebral artery dissection (CMS/HCC); Spastic hemiplegia of left nondominant side as late effect of cerebral infarction (CMS/HCC); Subacute cough 05/09/2025 Travel 05/06/[address] [address] Hilda Butt MD Chart Prep 05/06/[address] [address] Hilda Butt MD Nurse Triage 04/28/[address] [address] Hilda Butt MD Durable Medical Equipment (DME Request: Lap side tray for wheel chair) from Last 3 Months Immunizations Immunization Administration Dates Next Due Hep A, Adult 06/23/2024,11/17/2023 Hep A, Unspecified 06/23/2024,11/17/2023 Hep B, Unspecified 08/19/2024,06/03/2024, 024 Hep B, adult 08/19/2024,06/23/2024,11/17/2023 Influenza Injectable Quadriv [...] 12+ Bivalent 11/08/2022, 07/30/2022 Pneumococcal Conjugate PCV 13 11/17/2023 Pneumococcal Conjugate PCV 20 11/17/2023 Pneumococcal Polysaccharide [...] Q2 Not on file 08/31/2024 Comments No Intention Date Recorded No desire to become (finding) 0 07/18/2025 Sex and Gender Information Value Date Recorded Sex Assigned at Female 08/26/2022 10:14 AM EDT Legal Sex Female 10:14 AM EDT Gender Identity Female 08/26/2022 10:14 AM EDT Sexual Orientation Straight 08/26/2022 10 :14 AM EDT Last Filed Vital Signs Vital Sign Reading Time Taken Comments Blood Pressure 118/80 06/24/2025 3:11 PM EDT Pulse 88 06/24/2025 3:11 PM EDT Temperature 37 C (98.6 F) 06/24/2025 3:11 PM EDT Respiratory Rate 20 06/24/2025 3:11 PM EDT Oxygen Saturation 98% 05/09/2025 2:03 PM EDT Inhaled Oxygen Concentration - - Weight 59 kg (130 lb) 05/09/2025 2:03 PM EDT Height 149.9 cm (4' 11 ) 06/24/2025 3:11 PM EDT Body Mass Index 26.26 05/09/2025 2:03 PM EDT Plan of Treatment Health Maintenance Due Date Last Done Comments CT Colonography 1972 Colonoscopy 1972 Colorectal Cancer Screening 1972 FIT DNA/Cologuard 1972 FIT 1972 FOBT 1972 Sigmoidoscopy 1972 Alcohol/Substance Use Screening 1984 Influenza Vaccine (#1) 2025 , 07/17/2023, 2022, Additional history exists Mammogram 07/15/2025 07/15/2024, 06/27, 03/07/2022, Additional history exists Depression Screening 04/19/2026 04/19/2025, 04/19/20 25 Disability Screening 04/19/2026 04/19/2025 SDOH Screening 04/19/2026 04/19/2025 Tobacco Screening 07/19/2026 07/19/2025 Lipid Panel 03/29/2027 03/29/2022, 11/30/2020 DTaP/Tdap/Td Vaccines (3 - Td or Tdap) 01/20/2034 01/21/2024, 12/07/2013 RSV Patients and Patients Aged 60 years or older (1 - 1-dose 75+ series) 2047 HIV Screening Completed 05/09/2022, 11/30/2020 Hepatitis C Screening Completed 05/09/2022, 021 Zoster Vaccines Completed 09/23/2022, 2022 Pneumococcal Vaccine: 50+ Years Completed 11/17/2023, 11/17/2023, 10/17/2021 Cervical Cancer Screening Discontinued HPV/Cotest Discontinued 02/20/2024 Pap Smear Discontinued 02/20/2024 Hepatitis A Vaccines Completed 06/23/2024, 06/23/2024, 11/17/2023, Additional history exists COVID-19 Vaccine Completed 07/19/2024, , 07/30/2022, Additional history exists Hepatitis B Vaccines Completed 08/19/2024, 08/19/2024, 06/23/2024, Additional history exists Family Planning (PISQ) Discontinued 07/19/2025 HIB Vaccines Aged Out No longer eligi [...] 118/80( 025 3:11 PM EDT) No Daria Cardoso PharmD Procedures Procedure Name Priority Date/Time Associated Diagnosis Comments POCT RAPID COVID ANTIGEN Routine 06/24/2025 3:30 PM EDT Cough, unspecified type POCT URINALYSIS DIPSTICK Routine 05/09/2025 2:43 PM EDT Mixed stress and urge urinary incontinence BI MAMMOGRAM DIAGNOSTIC TOMOSYNTHESIS BILATERAL Routine 07/15/2024 [...] Recently Relevant to Health Maintenance Results * POCT Rapid Covid-19 BinaxNOW (06/24/2025 3:30 PM EDT) Rapid COVID Ag Negative QC Media Lot # [id number] Lot# Expiration Date [id number] Swab 06/24/2025 3:30 PM EDT Hilda Butt MD POINT OF CARE TEST ENTER/EDIT ORDERABLES Final Result * (ABNORMAL) POCT Urinalysis (05/09/2025 2:43 PM EDT) Color, UA Yellow Clarity, UA Cloudy Glucose, UA Negative Bilirubin, UA Negative Ketones, UA Negative Spec Grav, UA 1.020 Blood, UA Positive(A) Negative, None Detected Comment:Trace-Intact pH, UA 6.5 Protein, UA Negative Urobilinogen, UA 0.2 Leukocytes, UA Negative Negative, Rare, Trace Nitrite, UA Negative Negative, None Detected QC Media Lot # [id number] Lot# Expiration Date [id number] Urine 05/09/2025 2:43 PM EDT Hilda Butt MD POINT OF CARE TEST ENTER/EDIT ORDERABLES Final Result * BI Mammogram Diagnostic Tomosynthesis Bilateral (07/15/2024 10:45 AM EDT) Anatomical Region Laterality Modality Breast Bilateral Mammography 07/15/2024 10:4 5 AM EDT Narrative 07/15/2024 12:02 PM EDT [facility] [address] [place] [address] Mammography Report Signed Patient: Renita Brandon MR#: [id number] 4 : 1970 Acct:[id number] Age/Sex: 53 / F ADM Date: 07/15/24 [facility] Dr: Hilda Butt MD Ordering Physician: Hilda Butt Results: 2Benign F indings Date of Service: 07/15/24 Follow Up: 1 Year From Orig ina Mammogram Procedure(s): MM tomosynthesis diagnostic BI Accession Number(s): [id number] cc: Hilda Butt EXAMINATION: MM DIAGNOSTIC DIGITAL [...] 07/15/24 1158 DD/ 1045 TD/TT: 07/15/24 1119 Strip Feeder: Procedure Note Donotuseinterpreter, Image - 07/15/2024 [facility] [address] [place], [place] [address] Mammography Report Signed Patient: Renita Brandon#: [id number] 4 : 1970Acct:[id number] Age/Sex: 53 / FADM Date: 07/15/24 Loc: [facility] Attending Dr: Hilda Butt MD Ordering Physician: Sunil Buttults: 2Benign F indings Date of Service: 07/15/24Follow Up: 1 Year From Orig ina Mammogram Procedure(s): MM tomosynthesis diagnostic BI Accession Number(s): [id number] cc: Hilda Butt EXAMINATION: MM DIAGNOSTIC DIGITAL [...] 07/15/24 1158 DD/ 1045 TD/TT: 07/15/24 1119 Strip Feeder: Hilda Butt MD IMG BI PROCEDURES Final Result * HPV mRNA E6/E7 w/Reflex to HPV Genotypes 16, 18/45 (02/20/2024 12:12 PM EDT) HPV nRNA E6/E7 Not Detected Not Detected [facility] Comment:Methodology: Transcr iption-Mediated AmplificationThis assay detects E6/E7 viral messenger RNA (mRNA) from 14high-risk HPV types (16,18,31,33,35,39,45,51,52,56,58,59,66,68).Cervical sources are required for HPV testing.If a vaginal source from a patient who has had atotal hysterectomy with removal of cervix wassubmitted, please contact the testing laboratoryfor alternative testing options.For additional information, please refer tohttp://education.[employer]/faq/EKI689w4(This link if provided for information/educational purposes only.)THIS TEST WAS PERFORMED AT:Dr. [address] [place] [phone] GARCIA MD HPV mRNA E6/E7 [facility] HPV 16 RNA TNP [facility] HPV 18/45 [facility] 02/20/2024 12:1 2 PM EDT 02/24/2024 7:30 AM EDT us Hilda Butt MD LAB CYTOLOGY ORDERABLES Final Result [facility] [address] [place] [phone] * Pap Smear (02/20/2024 12:12 PM EDT) 02/20/2024 12:1 2 PM EDT 02/24/2024 7:30 AM EDT Narrative [facility] - 03/13/2024 5:52 PM EDT ----- ------- Name: Renita Brandon Age/Sex: 53/F : 1970 Unit#: [id number] Attend Dr: Hilda Butt Re02/20/24 Status: DEP REF Location: [facility] Disch: ----- ------- SPEC : [id number] RECD: 02/24/24 STATUS: LISA ESTRELLA NUM: [id number] ANNE: 02/20/24-1212 [facility] DR: Hilda Butt ENTERED: 02/24/24 SP TYPE: Pap Smr OT DR: ORDERED: Pap Smear Interpretation Satisfactory for evaluation. Negative for intraepithelial lesion or malignancy. HPV mRNA E6/E7: NOT DETECTED This assay detects E6/E7 viral messenger RNA (mRNA) from 14 high-risk HPV types (16, 18, 31, 33, 35, 39, 45, 51, 52, 56, 58, 59, 66, 68) HPV testing performed by [facility], [place], [place]. See reference laboratory portion of the EMR for entire report. Clinical Information LMP: Postmenopausal Previous PAP test: 2019, NILM Other surgery:Hysterectomy, cervical sparing in 2021 for fibroids Other history: No prior abnormal Material Received ThinPrep-Cervical ----- ------- Signed (signature on file) Amparo Martinez 03/13/241751 ----- ------- END OF REPORT us Hilda Butt MD LAB CYTOLOGY ORDERABLES Final Result [facility] [address] [place] [phone] * HEPATITIS C AB W/REFL TO HCV RNA, QN, PCR (05/09/2022 4:02 PM EDT) HEPATITIS C ANTIBODY NON-REACT KRISTIN NON-REACT KRISTIN [facility] INDEX 0.08 <1.00 [facility] Comment: HCV antibody was non-reactive. There is no laboratory evidence of HCV infection. In most cases, no further action is required. However, if recent HCV exposure is suspected, a test for HCV RNA (test code 33414) is suggested. For additional information please refer to http://[employer]/faq/YKJ51x7 (This link is being provided for informational/ educational purposes only.) 05/09/2022 4:02 PM EDT Tara Arcelia FURNITURE DECALS INSPECTOR HISTORICAL/NON ORDERABLE LABS Final Result Performing Organization Address [facility] de Phone Number [facility] [address] [place] [address], [place] * HIV 1/2 ANTIGEN/ANTIBODY,FOURTH GENERATION W/RFL (05/09/2022 4:02 PM EDT) HIV-1/2 ANTIGEN AND ANTIBODIES, 4TH GENERATION W/ REFLEX NON-REACT KRISTIN NON-REACT KRISTIN [facility] Comment: HIV-1 antigen and HIV-1/HIV-2 antibodies were not detected. There is no laboratory evidence of HIV infection. PLEASE NOTE: This information has been disclosed to you from records whose confidentiality may be protected by state law. If your state requires such protection, then the state law prohibits you from making any further disclosure of the information without the specific written consent of the person to whom it pertains, or as otherwise permitted by law. A general authorization for the release of medical or other information is NOT sufficient for this purpose. For additional information please refer to http://education.[employer]/faq/SAS164 (This link is being provided for informational/ educational purposes only.) The performance of this assay has not been clinically validated in patients less than 2 years old. 05/09/2022 4:02 PM EDT Tara GameMix FURNITURE DECALS INSPECTOR LAB BLOOD ORDERABLES Final Res ult Performing Organization Address [facility] de Phone Number [facility] [address] [place] [address], [place] * (ABNORMAL) LIPID PANEL, STANDARD (03/29/2022 3:50 PM EDT) Chol/HDLC Ratio 5.3(H) <5.0 (calc) [facility] Cholesterol, Total 205(H) <200 mg/dL [facility] HDL Cholesterol 39(L) > OR = 50 mg/dL [facility] LDL Cholesterol 132(H) mg/dL (calc) [facility] Comment: Reference range: <100 Desirable range <100 mg/dL for primary prevention; <70 mg/dL for patients with CHD or diabetic patients with > or = 2 CHD risk factors. LDL-C is now calculated using the Kirk-Green calculation, which is a validated novel method providing better accuracy than the Friedewald equation in the estimation of LDL-C. Kirk SS et al. RUTH. 2013;310(19): 0592-6940 (http://education.Lumense/faq/YFQ797) Non-HDL Cholesterol 166(H) <130 mg/dL (calc) [facility] Comment: For patients with diabetes plus 1 major ASCVD risk factor, treating to a non-HDL-C goal of <100 mg/dL (LDL-C of <70 mg/dL) is considered a therapeutic option. Triglycerides 203(H) <150 mg/dL [facility] Comment: If a non-fasting specimen was collected, consider repeat triglyceride testing on a fasting specimen if clinically indicated. Dunia et al. J. of Clin. Lipidol. 2015;9:129-169. 03/29/2022 3:50 PM EDT us Tara Paniagua FURNITURE DECALS INSPECTOR LAB BLOOD ORDERABLES Final Res ult [facility] [address] from Last 3 Months or Most Recently Relevant to Health Maintenance Insurance [facility]ARE < 65 [place] [id number] Care Teams Metallurgical Inspector Relationship Specialty Start Date End Date Hilda Butt MD [address] [place] [id number] PCP - General Family Medicine 06/20/22 Aveagema 04/08/25
--- OUTSIDE RECORDS SUMMARY | 2025-07-26 15:46 | XMS_ITS | Encounter Summary ---
Author Organization [employer] Address 75 [facility] 7t [place] [address] Care Team Providers Care Civil Preparedness Coordinator Name Role Phone Hilda Butt MD Primary Care Provider [phone] Reason for Visit * Reason Comments Med Refill Encounter Details Date Type Department Care Team ([facility] st Contact Info) Description 11/16/[address] [facility] MEDICINE [address] [place], [place] [phone] Hilda Butt MD [address] [place], [place] [phone] Vitamin D deficiency Social History Tobacco Use [...] documented as of this encounter Care Teams Civil Preparedness Coordinator Relationship Specialty Start Date End Date Hilda Butt MD [address] [place] [address] PCP - General Family Medicine 06/20/22 Wilfrido 04/08/25 documented as of this encounter
--- OUTSIDE RECORDS SUMMARY | 2025-07-26 15:46 | XMS_ITS | Encounter Summary ---
Author Organization [employer] Address [address] [place] [address] Care Team Providers Care Quality Assurance Supervisor Trim Name Role Phone Tara Paniagua RN Primary Care Provider [phone] Encounter Details Date Type Department Care Team (Late Contact Info) Description 12/10/2024 Lab Requisition [facility] [address] [place] [address] Benjamin Kim MD 38 [facility] [address] [place], [phone] Essential (primary) hypertension Social History Tobacco [...] Info) Description 08/11/2025 10:00 AM EDT Evaluation [facility] 175 [facility] [address] [place] [address] Trent Griffin PT documented as of this encounter Procedures [...] [facility] Comment:Calculation based on the Chronic Kidney Disease Epidemiology Collaboration (CKD-EPI) equation refit without adjustment for race. BUN/Creatinine Ratio 23.2 LAB CHEMISTRY METHOD 12/10/2024 11:46 AM [facility] Calcium 9.7 8.5 - 10.5 mg/dL LAB CHEMISTRY METHOD 12/10/2024 11:46 AM [facility] Blood Venous blood specimen / Unknown Venipuncture / Unknown 12/10/2024 7:30 AM EST 12/10/2024 10:55 AM EST us Benjamin Kim MD LAB BLOOD ORDERABLES Final Resul t [facility] [address] [place] [address], * (ABNORMAL) Complete blood count (12/10/2024 7:30 AM EST) WBC 6.1 4.8 - 10.8 K/mcL LAB HEMETOLOGY METHOD 12/10/2024 11:22 AM [facility] RBC 3.70(L) 3.80 - 4.80 M/mcL [...] LAB HEMETOLOGY METHOD 12/10/2024 11:22 AM EST [facility] MPV 9.7 7.0 - 11.0 FL LAB HEMETOLOGY METHOD 12/10/2024 11:22 AM EST [facility] NRBC 0.0 <1.0 % LAB HEMETOLOGY METHOD 12/10/2024 11:22 AM EST [facility] NRBC Absolute 0.00 <0.10 K/mcL LAB HEMETOLOGY METHOD 12/10/2024 11:22 AM EST [facility] Blood Venous blood specimen / Unknown Venipuncture / Unknown 12/10/2024 7:30 AM EST 12/10/2024 10:55 AM EST us Benjamin Kim MD LAB BLOOD ORDERABLES Final Resul t [facility] [address] [place] [address], documented in this encounter Visit Diagnoses Diagnosis Essential (primary) hypertension Unspecified essential hypertension documented in this encounter Care Teams Quality Assurance Supervisor Trim Relationship Specialty Start Date End Date Tara Paniagua RN [address] [place] [phone] PCP - General 07/24/22 documented as of this encounter
--- OUTSIDE RECORDS SUMMARY | 2025-07-26 15:46 | XMS_ITS | Encounter Summary ---
Author Organization [employer] Address [address] [facility] 7t [place] [address] Care Team Providers Care Supervisor Weaving Name Role Phone Hilda Butt MD Primary Care Provider [phone] Reason for Visit * Reason Onset Date Comments Med Refill 05/10/2024 Encounter Details Date Type Department Care Team ([facility] st Contact Info) Description 05/10/2024 Refill [facility] MEDICINE [address] [place], [place] [phone] Hidla Butt MD [address] [place], [place] [phone] Social History Tobacco Use Types Packs/Day Years [...] as of this encounter Care Teams Supervisor Weaving Relationship Specialty Start Date End Date Hilda Butt MD [address] [place] [address] PCP - General Family Medicine 06/20/22 Wilfrido 04/08/25 documented as of this encounter
--- OUTSIDE RECORDS SUMMARY | 2025-07-26 15:46 | XMS_ITS | Encounter Summary ---
Author Organization [employer] Address 75 [facility] 7t [place] [address] Care Team Providers Care Senior Principal Process Engineer Name Role Phone Hilda Butt MD Primary Care Provider [phone] Reason for Visit * Reason Onset Date Comments Med Refill 11/03/2024 Encounter Details Date Type Department Care Team ([facility] st Contact Info) Description 11/03/2024 Refill [facility] MEDICINE [address] [place], [place] [phone] Hilda Butt MD 230 [place], [place] [phone] Social History Tobacco Use Types Packs/Day Years [...] documented as of this encounter Care Teams Senior Principal Process Engineer Relationship Specialty Start Date End Date Hilda Butt MD [address] [place] [address] PCP - General Family Medicine 06/20/22 Wilfrido 04/08/25 documented as of this encounter
--- OUTSIDE RECORDS SUMMARY | 2025-07-26 15:46 | XMS_ITS | Encounter Summary ---
Author Organization [employer] Address 75 [facility] 7t [place] [address] Care Team Providers Care Reclamation Engineer Name Role Phone Hilda Butt MD Primary Care Provider [phone] Encounter Details Date Type Department Care Team ([facility] st Contact Info) Description 11/05/2024 Orders Only [facility] MEDICINE [address] [place], [place] [phone] Hilda Butt MD [address] [place], [place] [phone] Social History Tobacco Use Types Packs/Day Years [...] documented as of this encounter Care Teams Reclamation Engineer Relationship Specialty Start Date End Date Hilda Butt MD [address] [place] [address] PCP - General Family Medicine 06/20/22 Stareashelly 04/08/25 documented as of this encounter
--- OUTSIDE RECORDS SUMMARY | 2025-07-26 15:46 | XMS_ITS | Encounter Summary ---
Author Organization [employer] Address 75 [facility] 7t [place] [address] Care Team Providers Care Watch Dial Printer Name Role Phone Hilda Butt MD Primary Care Provider [phone] Reason for Visit * Reason Onset Date Comments Med Refill 05/25/2024 Encounter Details Date Type Department Care Team ([facility] st Contact Info) Description 05/25/2024 Refill [facility]S [address] [place], [place] [phone] Hilda Butt MD [address] [place] [address] Social History Tobacco Use Types Packs/Day Years [...] documented as of this encounter Care Teams Watch Dial Printer Relationship Specialty Start Date End Date Hilda Butt MD [address] [place] [address] PCP - General Family Medicine 06/20/22 Wilfrido 04/08/25 documented as of this encounter
--- OUTSIDE RECORDS SUMMARY | 2025-07-26 15:46 | XMS_ITS | Encounter Summary ---
Author Organization [employer] Address 75 [facility] 7t [place] [address] Care Team Providers Care Coal Getter Name Role Phone Hilda Butt MD Primary Care Provider [phone] Reason for Visit * Reason Onset Date Comments Med Refill 03/11/2024 Encounter Details Date Type Department Care Team ([facility] st Contact Info) Description 03/11/2024 Refill [facility] MEDICINE 230 [place], [place] [phone] Hilda Butt MD [address] [place], [place] [phone] Social History Tobacco Use Types Packs/Day Years [...] documented as of this encounter Care Teams Coal Getter Relationship Specialty Start Date End Date Hilda Butt MD [address] [place] [address] PCP - General Family Medicine 06/20/22 Wilfrido 04/08/25 documented as of this encounter
--- OUTSIDE RECORDS SUMMARY | 2025-07-26 15:46 | XMS_ITS | Clinical Summary ---
Author Organization [address] [facility] Address [address] [place] [address] Phone Care Team Providers Care Emissions Testing Technician Name Role Phone Tara Paniagua RN Primary Care Provider [phone] Surgical History Surgery Date Site/Laterality Comments TUBAL LIGATION PROCEDURE: HISTORICAL TUBAL LIGATION BUNIONECTOMY PROCEDURE: VA CORRJ HLX VLGS BNCTY SESMDC W/DOUBLE OSTEOTOMY [...] on file Obstetrics History Plan of Treatment Upcoming Encounters Date Type Department Care Team ([facility] Contact Info) Description 08/11/2025 10:00 AM EDT Evaluation [facility] [address] [phone] Trent Griffin, PT Health Maintenance Due Date Last Done Comments Breast Cancer Screening 1970 Colorectal Cancer Screening: Colonoscopy 09/29/2022 Hepatitis C Screening 09/29/2022 Medicare Annual Wellness Visit 09/29/2022 Social Influencers of Health Screening 09/29/2022 Depression Screening 10/27/2024 COVID-19 Vaccine ( season) 2025 07/19/2024, 11/08/2022, 07/30/2022, Additional history exists Influenza Vaccine (#1) 2025 , 07/17/2023, 2022, Additional history exists Hypertension/CHF/CAD Annual BMP Blood Test 02/09/2026 02/09/2025, 12/29/2024, 12/10/2024, Additional history exists Cervical Cancer Screening: Pap Smear 02/19/2027 02/20/2024 Cholesterol Screening (Lipid Panel) 03/29/2027 03/29/2022 DTaP,Tdap,and Td Vaccines (3 - Td or Tdap) 01/20/2034 01/21/2024, 12/07/2013 RSV Immunization Adult Patients (1 - 1-dose 75+ series) 2047 HIV Screening Completed 05/09/2022 Zoster Vaccines Completed 09/23/2022, 2022 Pneumococcal Vaccine: 50+ Years Completed 11/17/2023, 10/17/2021 Hepatitis A Vaccines Completed 06/23/2024, 11/17/19 Hepatitis B Vaccines Completed 08/19/2024, 06/23/2024, 11/17/2023 [...] 02/09/2025 7:58 AM EDT Heart failure, unspecified ([facility] V24, [facility] V28) from Last 3 Months or Most Recently Relevant to Health Maintenance Results * Basic metabolic panel (02/09/2025 7:58 AM EDT) Sodium 139 133 - 145 mmol/L LAB CHEMISTRY METHOD 02/09/2025 12:40 PM [facility] Potassium 3.8 3.5 - 5.5 mmol/L LAB CHEMISTRY METHOD 02/09/2025 12:40 PM [facility] Chloride 104 96 - 110 mmol/L LAB CHEMISTRY METHOD 02/09/2025 12:40 PM [facility] CO2 28 21 - 32 mmol/L LAB CHEMISTRY METHOD 02/09/2025 12:40 PM [facility] Anion Gap 7 3 - 11 LAB CHEMISTRY METHOD 02/09/2025 12:40 PM [facility] Glucose 93 70 - 100 mg/dL LAB CHEMISTRY METHOD 02/09/2025 12:40 PM [facility] BUN 17 5 - 25 mg/dL LAB CHEMISTRY METHOD 02/09/2025 12:40 PM [facility] Creatinine 0.54 0.50 - 1.10 mg/dL LAB CHEMISTRY METHOD 02/09/2025 12:40 PM [facility] eGFR 111 >=60 mL/min/1. 73m2 LAB CHEMISTRY METHOD 02/09/2025 12:40 PM [facility] Comment:Calculation based on the Chronic Kidney Disease Epidemiology Collaboration (CKD-EPI) equation refit without adjustment for race. BUN/Creatinine Ratio 31.5 LAB CHEMISTRY METHOD 02/09/2025 12:40 PM [facility] Calcium 9.6 8.5 - 10.5 mg/dL LAB CHEMISTRY METHOD 02/09/2025 12:40 PM EDT [facility] Blood Venous blood specimen / Unknown Venipuncture / Unknown 02/09/2025 7:58 AM EDT 02/09/2025 11:12 AM EDT us Benjamin Kim MD LAB BLOOD ORDERABLES Final Resul t [facility] ([facility] [address] [place] [address], [place] [phone] from Last 3 Months or Most Recently Relevant to Health Maintenance Insurance [facility] MED[facility] Member Subscriber Plan / Payer (Ef fective 2023-Present) Name:VALVERDE, RENITA Relation to Subscriber:Self Name:Renita Valverde Payer ID:[id number] Group ID:[id number] Type:Not on file Address: [place] [address] [place] [id number] Advance Directives Documents on File Type Date Recorded Patient Sign Erector Expl anation Health Care Decision (hx) 02/06/2024 AD ORTIZ DIRECTIVE Health Care Decision (hx) 02/06/2024 AD ORTIZ DIRECTIVE Health Care Decision (hx) 02/06/2024 AD ORTIZ DIRECTIVE Health Care Decision (hx) 02/04/2023 AD ORTIZ DIRECTIVE Care Teams Emissions Testing Technician Relationship Specialty Start Date End Date Tara Paniagua RN [address] [place] [phone] PCP - General 07/24/22
--- OUTSIDE RECORDS SUMMARY | 2025-07-26 15:46 | XMS_ITS | Encounter Summary ---
Author Organization [employer] Address [address] [place] [address] 7t [place] [address] Care Team Providers Care Transfer Driver Name Role Phone Hilda Butt MD Primary Care Provider [phone] Reason for Referral * Imaging (Routine) - Closed Specialty Diagnoses / Procedures Referred By Tyeshaac t Referred To Contact Radiology Diagnoses Vertebral artery dissection Tinnitus of both ears Procedures CTA Neck w/ and w/o Contrast Hilda Butt MD [address] [place], [place] Phone: tel: fax: [address] Phone: tel: fax: Referral ID Status Reason Start Date Expiration Date Visits Re quested Visits Authorized [id number] Closed 03/08/2024 03/08/2025 1 1 * Imaging (Routine) - Closed Specialty Diagnoses / Procedures Referred By Contac t Referred To Contact Radiology Diagnoses Vertebral artery dissection Tinnitus of both ears Procedures CTA Head w/ and w/o Contrast Hilda Butt MD [address] [place] [address] Phone: tel: fax: [address] Phone: tel: fax: Referral ID Status Reason Start Date Expiration Date Visits Re quested Visits Authorized [id number] Closed 03/08/2024 03/08/2025 1 1 * Imaging (Routine) - Canceled Specialty Diagnoses / Procedures Referred By Contac t Referred To Contact Radiology Diagnoses Vertebral artery dissection Tinnitus of both ears Procedures CTA Head Neck w/ and w/o Contrast Hilda Butt MD [address] [place] [address] Phone: tel: fax: [address] Phone: tel: fax: Referral ID Status Reason Start Date Expiration Date V isits Requested Visits Authorized [id number] Canceled 03/05/2024 03/05/2025 1 1 Encounter Details Date Type Department Care Team (Late st Contact Info) Description 03/05/2024 Orders Only [facility] MEDICINE [address] [place], [place] [phone] Hilda Butt MD [address] [place], [place] [phone] Vertebral artery dissection (CMS/HCC) (Primary Dx); Tinnitus [...] 1:56 PM EDT Narrative 06/09/2024 10:[address] [address] [address] Scan Report Signed Patient: Renita Brandon MR#: [id number] 4 : 1970 Acct:[id number] Age/Sex: 53 / F ADM Date: 05/17/24 Loc: .CT Attending Dr: Hilda Butt MD Ordering Physician: Hilda Butt Date of Service: 05/17/24 Procedure(s): CT angio head neck Accession Number(s): [id number] cc: Hilda Butt EXAMINATION: CT ANGIOGRAM HEAD [...] aspect of the left vertebral artery with [id number] luminal narrowing. Right Carotid: There is moderately [...] in OV> 06/09/24 0957 DD/ 1356 TD/TT: Naval Designer: Procedure Note Donotuseinterpreter, Image - 06/09/[address] [address] [address] Scan Report Signed Patient: Adin Brandon#: [id number] 4 : 1970Acct:[id number] Age/Sex: 53 / FADM Date: 05/17/24 Loc: HO.CT Attending Dr: Hilda Butt MD Ordering Physician: Hilda Butt Date of Service: 05/17/24 Procedure(s): CT angio head neck Accession Number(s): [id number] cc: Hilda Butt EXAMINATION: CT ANGIOGRAM HEAD [...] aspect of the left vertebral artery with oijj-la-[id number] luminal narrowing. Right Carotid: There is moderately [...] in OV> 06/09/24 0957 DD/ 1356 TD/TT: Naval Designer: Hidla Butt MD IMG CT PROCEDURES Final Result documented in this encounter Visit Diagnoses Diagnosis Vertebral artery dissection- Primary Dissection of vertebral artery Tinnitus of both ears Unspecified tinnitus documented in this encounter Additional Health Concerns Assessment Noted Time PHQ-9 Depression Total Score: 0 11/17/19 24 10:34 AM EST documented as of this encounter Care Teams Transfer Driver Relationship Specialty Start Date End Date Hilda Butt MD [address] [place] [id number] PCP - General Family Medicine 06/20/22 Aveanna 04/08/25 documented as of this encounter
--- OUTSIDE RECORDS SUMMARY | 2025-07-26 15:46 | XMS_ITS | Encounter Summary ---
Author Organization [employer] Address 75 [facility] 7t [place] [address] Care Team Providers Care Senior Solutions Consultant Name Role Phone Hilda Butt MD Primary Care Provider [phone] Encounter Details Date Type Department Care Team ([facility] st Contact Info) Description 12/30/2022 Orders Only [facility] MEDICINE [address] [place], [place] [phone] Hilda Butt MD [address] [place] [address] Low back pain at multiple sites (Primary [...] laterality documented in this encounter Care Teams Senior Solutions Consultant Relationship Specialty Start Date End Date Hilda Butt MD [address] [place] [address] PCP - General Family Medicine 06/20/22 Wilfrido 04/08/25 documented as of this encounter
--- OUTSIDE RECORDS SUMMARY | 2025-07-26 15:46 | XMS_ITS | Encounter Summary ---
Author Organization [employer] Address 75 [facility] 7t [place] [address] Care Team Providers Care Top Dyeing Machine Loader Name Role Phone Hilda Butt MD Primary Care Provider [phone] Reason for Visit * Reason Onset Date Comments Med Refill 02/25/2024 Encounter Details Date Type Department Care Team ([facility] st Contact Info) Description 02/25/2024 Refill [facility] MEDICINE [address] [place], [place] [phone] Hilda Butt MD [address] [place], [place] [phone] Itchy skin of anus and genitals; Recurrent [...] enough money to get more: Never True 10/ Transportation Answer Date Recorded In the past [...] documented as of this encounter Care Teams Top Dyeing Machine Loader Relationship Specialty Start Date End Date Hilda Butt MD [address] [place] [address] PCP - General Family Medicine 06/20/22 Wilfrido 04/08/25 documented as of this encounter
--- OUTSIDE RECORDS SUMMARY | 2025-07-26 15:46 | XMS_ITS | Encounter Summary ---
Author Organization [employer] Address 75 [facility] 7t [place] [address] Care Team Providers Care Mission Planner Name Role Phone Hilda Butt MD Primary Care Provider [phone] Reason for Visit * Reason Onset Date Comments Med Refill 11/17/2024 Encounter Details Date Type Department Care Team ([facility] st Contact Info) Description 11/17/2024 Refill [facility] MEDICINE [address] [place], [place] [phone] Hilda Butt MD [address] [place], [place] [phone] Social History Tobacco Use Types Packs/Day Years [...] documented as of this encounter Care Teams Mission Planner Relationship Specialty Start Date End Date Hilda Butt MD [address] [place] [address] PCP - General Family Medicine 06/20/22 Wilfrido 04/08/25 documented as of this encounter
--- OUTSIDE RECORDS SUMMARY | 2025-07-26 15:46 | XMS_ITS | Encounter Summary ---
Author Organization [employer] Address 75 [facility] 7t [place] [address] Care Team Providers Care Lay Midwife Name Role Phone Hilda Butt MD Primary Care Provider [phone] Reason for Visit * Reason Onset Date Comments Med Refill 03/01/2024 Encounter Details Date Type Department Care Team ([facility] st Contact Info) Description 03/01/2024 Refill [facility] MEDICINE [address] [place], [place] [phone] Hilda Butt MD [address] [place], [place] [phone] Itchy skin of anus and genitals; Recurrent [...] documented as of this encounter Care Teams Lay Midwife Relationship Specialty Start Date End Date Hilda Butt MD [address] [place] [address] PCP - General Family Medicine 06/20/22 Wilfrido 04/08/25 documented as of this encounter
--- OUTSIDE RECORDS SUMMARY | 2025-07-26 15:46 | XMS_ITS | Encounter Summary ---
Author Organization [employer] Address 75 [facility] 7t [place] [address] Care Team Providers Care Space Buyer Name Role Phone Hilda Butt MD Primary Care Provider [phone] Reason for Visit * Reason Comments Med Refill Encounter Details Date Type Department Care Team ([facility] st Contact Info) Description 04/23/2023 Refill [facility] MEDICINE [address] [place], [place] [phone] Shamar Stevens FNP Bipolar II disorder (CMS/HCC) [...] Visit Diagnoses Diagnosis Bipolar II disorder (CMS/HCC) (HCC) Other bipolar disorders documented in this encounter Additional Health Concerns Assessment Noted Time PHQ-9 Depression Total Score: 9 02/18/20 23 10:45 AM EDT documented as of this encounter Care Teams Space Buyer Relationship Specialty Start Date End Date Hilda Butt MD [address] [place] [address] PCP - General Family Medicine 06/20/22 Aveanna 04/08/25 documented as of this encounter
--- OUTSIDE RECORDS SUMMARY | 2025-07-26 15:46 | XMS_ITS | Encounter Summary ---
Author Organization [employer] Address 75 [facility] 7t [place] [address] Care Team Providers Care Data Abstractor Name Role Phone Hilda Butt MD Primary Care Provider [phone] Reason for Visit * Reason Onset Date Comments Med Refill 11/18/2024 Encounter Details Date Type Department Care Team ([facility] st Contact Info) Description 11/18/2024 Refill [facility] MED & PEDS [address] [place], [place] [phone] Hilda Butt MD [address] [place] [address] Social History Tobacco Use Types Packs/Day Years [...] documented as of this encounter Care Teams Data Abstractor Relationship Specialty Start Date End Date Hilda Butt MD [address] [place] [address] PCP - General Family Medicine 06/20/22 Wilfrido 04/08/25 documented as of this encounter
--- OUTSIDE RECORDS SUMMARY | 2025-07-26 15:46 | XMS_ITS | Encounter Summary ---
Author Organization [employer] Address 75 [facility] 7t [place] [address] Care Team Providers Care Respiratory Assistant Name Role Phone Hilda Butt MD Primary Care Provider Reason for Visit * Reason Onset Date Comments Med Refill 01/22/2024 Encounter Details Date Type Department Care Team ([facility] st Contact Info) Description 01/22/2024 Refill [facility] MEDICINE [address] [place], [place] [phone] Hilda Butt MD [address] [place], [place] [phone] Social History Tobacco Use Types Packs/Day Years [...] documented as of this encounter Care Teams Respiratory Assistant Relationship Specialty Start Date End Date Hilda Butt MD [address] [place] [address] PCP - General Family Medicine 06/20/22 Aveanna 04/08/25 documented as of this encounter
--- OUTSIDE RECORDS SUMMARY | 2025-07-26 15:46 | XMS_ITS | Encounter Summary ---
Author Organization [employer] Address 75 [facility] 7t [place] [address] Care Team Providers Care Cut File Clerk Name Role Phone Hilda Butt MD Primary Care Provider [phone] Reason for Visit * Reason Onset Date Comments Med Refill 08/20/2024 Encounter Details Date Type Department Care Team ([facility] Contact Info) Description 08/20/2024 Refill [facility] MED & PEDS [address] [place], [place] [phone] Hilda Butt MD [address] [place] [address] Social History Tobacco Use Types Packs/Day Years [...] documented as of this encounter Care Teams Cut File Clerk Relationship Specialty Start Date End Date Hilda Butt MD [address] [place] [address] PCP - General Family Medicine 06/20/22 Wilfrido 04/08/25 documented as of this encounter
--- OUTSIDE RECORDS SUMMARY | 2025-07-26 15:46 | XMS_ITS | Encounter Summary ---
Author Organization [employer] Address 75 [facility] 7t [place] [address] Care Team Providers Care Court Clerk Name Role Phone Hilda Butt MD Primary Care Provider [phone] Reason for Visit * Reason Onset Date Comments Med Refill 04/22/2024 Encounter Details Date Type Department Care Team ([facility] Contact Info) Description 04/22/2024 Refill [facility] MEDICINE [address] [place], [place] [phone] Hilda Butt MD [address] [place], [place] [phone] Social History Tobacco Use Types Packs/Day Years [...] documented as of this encounter Care Teams Court Clerk Relationship Specialty Start Date End Date Hilda Butt MD [address] [place] [address] PCP - General Family Medicine 06/20/22 Wilfrido 04/08/25 documented as of this encounter
--- OUTSIDE RECORDS SUMMARY | 2025-07-26 15:46 | XMS_ITS | Encounter Summary ---
Author Organization [employer] Address 75 [facility] 7t [place] [address] Care Team Providers Care Research Geologist Name Role Phone Hilda Butt MD Primary Care Provider [phone] Reason for Visit * Reason Onset Date Comments Med Refill 11/19/2024 Encounter Details Date Type Department Care Team ([facility] st Contact Info) Description 11/19/2024 Refill [facility] MEDICINE [address] [place], [place] [phone] Hilda Butt MD [address] [place], [place] [phone] Chronic obstructive pulmonary disease with acute exacerbation [...] pulmonary disease with acute exacerbation (CMS/HCC) (HCC) documented in this encounter Additional Health Concerns Assessment Noted Time PHQ-9 Depression Total Score: 0 11/17/19 24 10:34 AM EST documented as of this encounter Care Teams Research Geologist Relationship Specialty Start Date End Date Hilda Butt MD [address] [place] [address] PCP - General Family Medicine 06/20/22 Aveanna 04/08/25 documented as of this encounter
--- OUTSIDE RECORDS SUMMARY | 2025-07-26 15:46 | XMS_ITS | Encounter Summary ---
Author Organization [employer] Address [address] [facility] 7t [place] [address] Care Team Providers Care Functional Support Analyst Name Role Phone Hilda Butt MD Primary Care Provider [phone] Reason for Visit * Reason Onset Date Comments Med Refill 04/22/2024 Encounter Details Date Type Department Care Team ([facility] Contact Info) Description 04/22/2024 Refill [facility] MEDICINE [address] [place], [place] [phone] Hilda Butt MD [address] [place], [place] [phone] Social History Tobacco Use Types Packs/Day Years [...] documented as of this encounter Care Teams Functional Support Analyst Relationship Specialty Start Date End Date Hilda Butt MD [address] [place] [address] PCP - General Family Medicine 06/20/22 Wilfrido 04/08/25 documented as of this encounter
--- OUTSIDE RECORDS SUMMARY | 2025-07-26 15:46 | XMS_ITS | Clinical Summary ---
Author Organization [facility] Address [address] [place] [address] Care Team Providers Care Immigration Officer Name Role Phone Hilda Butt MD Primary Care Provider + Char Juarez MD Unavailable [phone] Allergies No known active allergies Medications lidocaine [...] place to sleep or slept in a [facility] (including now)? No 01/17/2023 Comments Unknown Sex [...] Vaccine (1 of 2) 2022 Influenza Vaccine 05/27/2025 07/17/2023, , 07/31/2021, Additional history exists COVID-19 Vaccine (5 - 2024-2 6 season) 2025 11/08/2022, 07/30/2022, 08/27/2021, Additional history exists HIV Screening Completed 05/09/2022 Chronic Controlled Substance User PDMP Review Discontinued 01/15/2023 Insurance MEDICAID OUT OF STATE [facility] MEDICARE PART A & B [facility] [place] OUT OF [facility] Advance Directives * Full Code (Latest Code Status on File) Date Activated Date Inactivated Comments 01/16/2023 4:08 AM Question Answer Comments Decision Thoroughly Discussed with: Patient Care Teams Immigration Officer Relationship Specialty Start Date End Date Hilda Butt MD [address] [place] [address] PCP - General General Medicine 01/16/23 Char Juarez MD [address] [place] [address] 01/16/23
--- OUTSIDE RECORDS SUMMARY | 2025-07-26 15:46 | XMS_ITS | Encounter Summary ---
Author Organization [employer] Address 75 [facility] 7t [place] [address] Care Team Providers Care Spray Cementer Name Role Phone Hilda Butt MD Primary Care Provider [phone] Reason for Visit * Reason Onset Date Comments Med Refill 04/22/2024 Encounter Details Date Type Department Care Team ([facility] st Contact Info) Description 04/22/2024 Refill [facility] MEDICINE [address] [place], [place] [phone] Hilda Butt MD [address] [place], [place] [phone] Neck pain Social History Tobacco Use Types [...] documented as of this encounter Care Teams Spray Cementer Relationship Specialty Start Date End Date Hilda Butt MD [address] [place] [address] PCP - General Family Medicine 06/20/22 Wilfrido 04/08/25 documented as of this encounter
--- OUTSIDE RECORDS SUMMARY | 2025-07-26 15:47 | XMS_ITS | Encounter Summary ---
Author Organization [employer] Address 75 [facility] 7t [place] [address] Care Team Providers Care Group Product Manager Name Role Phone Hilda Butt MD Primary Care Provider [phone] Reason for Visit * Reason Comments Med Refill Encounter Details Date Type Department Care Team ([facility] st Contact Info) Description 07/15/2025 Refill [facility] MEDICINE [address] [place], [place] [phone] Hilda Butt MD [address] [place], [place] [phone] Social History Tobacco Use Types Packs/Day Years [...] documented as of this encounter Care Teams Group Product Manager Relationship Specialty Start Date End Date Hilda Butt MD [address] [place] [address] PCP - General Family Medicine 06/20/22 Stareashelly 04/08/25 documented as of this encounter
--- OUTSIDE RECORDS SUMMARY | 2025-07-26 15:47 | XMS_ITS | Encounter Summary ---
Author Organization [employer] Address [address] [facility] 7t [place] [address] Care Team Providers Care Assistant Kitchen Manager Name Role Phone Hilda Butt MD Primary Care Provider [phone] Reason for Visit * Reason Onset Date Comments PA 12/25/2022 Encounter Details Date Type Department Care Team ([facility] Contact Info) Description 12/25/2022 Telephone [facility] MEDICINE [address] [place], [place] [phone] Hilda Butt MD [address] [place], [place] [phone] [place] Social History Tobacco Use Types Packs/Day [...] Lower back pain. Please contact pt at [phone] documented in this encounter Plan of Treatment Not on file documented as of this encounter Visit Diagnoses Not on filedocumented in this encounter Care Teams Assistant Kitchen Manager Relationship Specialty Start Date End Date Hilda Butt MD [address] [place] [address] PCP - General Family Medicine 06/20/22 Wilfrido 04/08/25 documented as of this encounter
--- OUTSIDE RECORDS SUMMARY | 2025-07-26 15:47 | XMS_ITS | Encounter Summary ---
Author Organization [employer] Address 75 [facility] 7t [place] [address] Care Team Providers Care Loan Originator Name Role Phone Hilda Butt MD Primary Care Provider [phone] Encounter Details Date Type Department Care Team ([facility] st Contact Info) Description 08/18/2023 Abstract [facility] MEDICINE [address] [place], [place] [phone] Hilda Butt MD [address] [place], [place] [phone] Social History Tobacco Use Types Packs/Day Years [...] t he electric, gas, oil or water [employer] threatened to shut off services in your [...] documented as of this encounter Care Teams Loan Originator Relationship Specialty Start Date End Date Hilda Butt MD [address] [place] [address] PCP - General Family Medicine 06/20/22 Stareashelly 04/08/25 documented as of this encounter
--- OUTSIDE RECORDS SUMMARY | 2025-07-26 15:47 | XMS_ITS | Encounter Summary ---
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) Status post cerebrovascular accident Hilda Butt MD [address] [place] [address] Phone: tel: fax: [facility] [address] [place] [address] Phone: tel: fax: Referral ID Status Reason Start Date Expiration Date V isits Requested Visits Authorized [id number] Closed Specialty Services Required 05/19/2025 05/19/2026 1 1 * Consultation (Routine) - Closed Specialty Diagnoses / Procedures Referred By Winter roa Referred To Contact Physical Therapy Diagnoses 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 (CMS/HCC) (Primary Dx); Status post cerebrovascular accident; S/P carotid endarterectomy Social History Tobacco Use Types Packs/Day Years [...] of this encounter Plan of Treatment Scheduled Referrals Name Type Priority Associated Diagnoses Orde r Schedule Referral to Physical Therapy Outpatient Referral Routine Spastic hemiplegia of left nondominant side as late effect of cerebral infarction (CMS/HCC) Status post cerebrovascular accident S/P carotid endarterectomy Expected: 05/19/2025 (Approximate), Expires: 05/19/2026 Referral to Occupational Therapy Outpatient Referral Routine Spastic hemiplegia 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
--- OUTSIDE RECORDS SUMMARY | 2025-07-26 15:47 | XMS_ITS | Encounter Summary ---
Author Organization [employer] Address 75 [facility] 7t [place] [address] Care Team Providers Care Accelerator Systems Director Name Role Phone Hilda Butt MD Primary Care Provider [phone] Reason for Visit * Reason Onset Date Comments Med Refill 12/04/2023 Encounter Details Date Type Department Care Team ([facility] st Contact Info) Description 12/04/2023 Refill [facility] MEDICINE [address] [place], [place] [phone] Hilda Butt MD [address] [place], [place] [phone] Itchy skin of anus and genitals Social [...] documented as of this encounter Care Teams Accelerator Systems Director Relationship Specialty Start Date End Date Hilda Butt MD [address] [place] [address] PCP - General Family Medicine 06/20/22 Wilfrido 04/08/25 documented as of this encounter
--- OUTSIDE RECORDS SUMMARY | 2025-07-26 15:47 | XMS_ITS | Encounter Summary ---
Author Organization [employer] Address 75 [facility] 7t [place] [address] Care Team Providers Care Order Analyst Name Role Phone Hilda Arshad MD Primary Care Provider Reason for Visit * Reason Onset Date Comments medical supplies 08/08/2023 Encounter Details Date Type Department Care Team ([facility] Contact Info) Description 08/08/2023 Telephone [facility] MEDICINE [address] [place], [place] [phone] Hilda Arshad MD [address] [place], [place] [phone] medical supplies Social History Tobacco Use Types [...] AND [facility] WICH WILL BE SENT TO [facility]QU[facility] AT [facility] BECAUSE [facility] DOES NOT ACCEPT [facility]. * Telephone Encounter - Adelaida Gastelum - [...] documented as of this encounter Care Teams Order Analyst Relationship Specialty Start Date End Date Hilda Arshad MD [address] [place] [address] PCP - General Family Medicine 06/20/22 Stareashelly 04/08/25 documented as of this encounter
--- OUTSIDE RECORDS SUMMARY | 2025-07-26 15:47 | XMS_ITS | Encounter Summary ---
Author Organization [employer] Address 75 [facility] 7t [place] [address] Care Team Providers Care Laundry Machine Mechanic Name Role Phone Hilda Butt MD Primary Care Provider [phone] Encounter Details Date Type Department Care Team ([facility] Contact Info) Description 05/11/[address] [facility] MEDICINE [address] [place], [place] [phone] Hilda Butt MD [address] [place], [place] [phone] Social History Tobacco Use Types Packs/Day Years [...] encounter Miscellaneous Notes * Telephone Encounter - Yelena Lala - 05/11/2025 4:35 PM EDT Tc from [facility] with [facility] calling to inform provider pt is being discharged from occupational therapy services. Adela stated pt is requesting outpatient referral. If any question [phone] documented in this encounter Plan of Treatment [...] documented as of this encounter Care Teams Laundry Machine Mechanic Relationship Specialty Start Date End Date Hilda Butt MD [address] [place] [address] PCP - General Family Medicine 06/20/22 Aveashelly 04/08/25 documented as of this encounter
--- OUTSIDE RECORDS SUMMARY | 2025-07-26 15:47 | XMS_ITS | Encounter Summary ---
Author Organization [employer] Address 75 [facility] 7t [place] [address] Care Team Providers Care Inspector Bicycle Name Role Phone Hilda Butt MD Primary Care Provider [phone] Encounter Details Date Type Department Care Team ([facility] st Contact Info) Description 08/19/2023 Abstract [facility] MEDICINE 230 [place], [place] [phone] Hilda Butt MD 230 [place], [place] [phone] Social History Tobacco Use Types Packs/Day Years [...] t he electric, gas, oil or water [employer] threatened to shut off services in your [...] documented as of this encounter Care Teams Inspector Bicycle Relationship Specialty Start Date End Date Hilda Butt MD [address] [place] [address] PCP - General Family Medicine 06/20/22 Stareashelly 04/08/25 documented as of this encounter
--- OUTSIDE RECORDS SUMMARY | 2025-07-26 15:47 | XMS_ITS | Data Portability ---
Author Organization [facility], Main Office Address [address] [place] [address] [address] [place] [address] Care Team Providers Care Credit Review Manager Name Role Phone LINDA GOFF - 4TH FLOOR OTHER FRANNIE ARSHAD Primary Care Provider [phone] Assessment No assessment recorded. Plan of Treatment Reminders Order Date Submit Date Provider Last Modified By Organization Details Last Modified Time Details Appointments None recorded. Lab None recorded. Referral None recorded. Procedures None recorded. Surgeries None recorded. Imaging None recorded. Medication Orders atorvastati n 80 mg tablet 2024 025 [facility] #[id number], [address] [place], [place], [id number], 5 11:45:19 metoprolol tartrate 25 mg tablet 2024 025 [facility], [address] [place], [id number], 5 11:45:20 meclizine 12.5 mg tablet 2024 025 [facility], [address] [place], [id number], 5 11:45:20 Ventolin HFA 90 mcg/actuati on aerosol inhaler 2024 025 [facility]258, [address] [place], [id number], 5 11:45:12 fluticasone propionate 50 mcg/actuati on nasal spray,suspe nsion 2024 025 [facility], [address] [place], [id number], 5 11:45:17 montelukast 10 mg tablet 2024 025 [facility]16099, [address] [place], [id number], 5 11:45:14 sertraline 50 mg tablet 2024 025 [facility]93598, [address] [place], [id number], 5 11:45:15 trazodone 100 mg tablet 2024 025 [facility]66772, [address] [place], [id number], 5 11:45:15 pantoprazol e 40 mg tablet,thomas yed release 2024 025 [facility]6935, [address] [place], [id number], 5 11:45:11 gabapentin 100 mg capsule 2024 025 [facility]47033, [address] [place], [id number], 5 11:45:16 tizanidine 2 mg tablet 2024 025 [facility]15191, [address] [place], [id number], 5 11:45:17 furosemide 20 mg tablet 2024 025 [facility] #67232, [address] [place], [id number], 5 11:45:15 Entresto 24 mg-26 mg tablet 2024 025 [facility] #58731, [address] [place], [id number], 5 11:45:11 spironolact one 25 mg tablet 2024 025 [facility] #19389, [address] [place], [id number], 5 11:45:18 Patient TargetsNo targets recorded. Patient InstructionsNo instructions recorded. Reason for Referral None Reported. Problems Name Problem SNOMED Code Status Onset Date Resolution Date Notes Provider Name and Address Organization Details Recorded Time Dysphagia 28350902 Active 2024 Jessica Taylor NP [address] [facility], [address], [place], [address], [facility] 5 15:19:53 Left hemiplegia 174368773 Active 2024 Jessica Taylor NP [address] [facility], [address], [place], [address], [facility] 5 15:20:52 Cerebrovascula r accident 721686441 Active 2024 Jessica Taylor NP [address] [facility], [address], [place], [address], [facility] 5 15:20:58 Carotid artery stenosis 15963053 Active 2024 Jessica Taylor NP [address] [facility], [address], [place], [address], [facility] 5 15:22:09 Congestive heart failure 93555371 Active 2024 Jessica Taylor NP [address] [facility], [address], [place], [address], [facility] 5 15:22:17 Chronic obstructive pulmonary disease 47396151 Active 2024 Jessica Taylor NP [address], [address], [place], [address], [facility] 5 15:22:23 Automatic implantable cardiac defibrillator in situ 755835044 Active 2024 Jessica Taylor NP [address], [address], [place], [address], [facility] 5 15:22:38 Bipolar disorder 83591014 Active 2024 Jessica Taylor NP [address], [address], [place], [address], [facility] 5 15:22:46 Hypoxia 638967354 Active 2024 Jessica Taylor NP [address], [place], [address], [facility] 5 15:24:15 Hypertensive disorder 13909044 Active 2024 Jessica Taylor NP [address], [address], [place], [address], [facility] 5 15:24:34 Hyperlipidemia 62929359 Active 2024 Jessica Taylor NP [address], [address], [place], [address], [facility] 5 15:24:44 Anemia 619964377 Active 2024 Jessica Taylor NP [address], [address], [place], [address], [facility] 5 15:40:32 Gastroesophage al reflux disease 326148136 Active 2024 Jessica Taylor NP [address], [address], [place], [address], [facility] 5 15:45:51 Problem Notes None recorded. Medical Equipment None Reported. Allergies Allergen ID Allergen Name Allergen Category Reaction Reaction Severity Criticality Documentation Date Start Date Code Code System Note Provider Name and Address Organization Details Recorded Time 51091 lisinopri l medicatio n cough Not available low 12/09/20242020 21073 RxNorm Florina Nino MD [address] [facility], [address], [place], [address], [facility] 5 20:01:39 Medications Name Sig Start Date Stop Date Status Note LastModified by Organization Details LastModified Time atorvastatin 80 mg tablet Take 1 tablet every day by oral route. 2024 active Not Available Not Available Not Avai lable tizanidine 2 mg tablet TAKE ONE TABLET BY MOUTH EVERY 8 HOURS NEEDED FOR SPASM OR SPASM PAIN ( VIAL) active Not Available Not Available No t Available meclizine 12.5 mg tablet TAKE ONE TABLET BY MOUTH EVERY 8 HOURS NEEDED FOR DIZZINESS ( VIAL) active Not Available Not Available No t Available spironolacton e 25 mg tablet Take 1 tablet every day by oral route. 2024 active Not Available Not Available Not Avai lable trazodone 100 mg tablet TAKE ONE TABLET BY MOUTH ONCE DAILY ^1R4 active Not Available Not Available N ot Available pantoprazole 40 mg tablet,delaye d release TAKE ONE TABLET BY MOUTH ONCE DAILY ^1R1 active Not Available Not Available N ot Available montelukast 10 mg tablet Take 1 tablet every day by oral route. 2024 active Not Available Not Available Not Avai lable furosemide 20 mg tablet TAKE ONE TABLET BY MOUTH ONCE DAILY ^1R1 active Not Available Not Available N ot Available gabapentin 100 mg capsule Take 2 capsules 3 times a day by oral route. 2024 active Not Available Not Available Not Avai lable albuterol sulfate HFA 90 mcg/actuation aerosol inhaler INHALE 1 PUFF EVERY 6 HOURS FOR FOR SHORTNESS OF BREATH OR COUGH (BULK) active Not Available Not Available No t Available fluticasone propionate 50 mcg/actuation nasal spray,suspens ion SHAKE LIQUID AND USE 1 SPRAY IN EACH NOSTRIL ONCE DAILY ( BULK) active Not Available Not Available No t Available sertraline 50 mg tablet Take 1 tablet every day by oral route. 2024 active Not Available Not Available Not Avai lable metoprolol tartrate 25 mg tablet TAKE ONE TABLET BY MOUTH EVERY MORNING ^1R1 active Not Available Not Available No t Available Entresto 24 mg-26 mg tablet Take 1 tablet twice a day by oral route. 2024 active Not Available Not Available Not Avai lable Vitals Date Recorded Body height Body mass index (BMI) Body weight Heart rate Respiratory rate Body temperature Oxygen saturation Oxygen saturation in Arterial blood by Pulse oximetry Systolic And Diastolic Provider Name and Address Organization Details Last Updated DateTime 5 149.86 cm 29.5 kg/m2 60052.4 9 g 78 /min 20 /min 97 [degF] 98 % 98 % 137/92 mm[Hg] Jessica [place] NP [address], [place], [address], [facility] 5 16:38:59 Date Recorded Body height Body weight Heart rate Respiratory rate Body temperature Oxygen saturation Oxygen saturation in Arterial blood by Pulse oximetry Systolic And Diastolic Provider Name and Address Organization Details Last Updated DateTime 5 149.86 cm 05054.4 9 g 71 /min 18 /min 97 [degF] 98 % 98 % 132/74 mm[Hg] Jessica [place] NP [address], [place], [address], [facility] 5 09:59:49 Date Recorded Body height Body mass index (BMI) Body weight Heart rate Respiratory rate Body temperature Oxygen saturation Oxygen saturation in Arterial blood by Pulse oximetry Systolic And Diastolic Provider Name and Address Organization Details Last Updated DateTime 5 149.86 cm 29.5 kg/m2 64210.4 9 g 71 /min 18 /min 97 [degF] 98 % 98 % 132/74 mm[Hg] Jessica [place] NP [address], [place], [address], [facility] 5 09:24:05 Date Recorded Body height Heart rate Respiratory rate Body temperature Oxygen saturation Oxygen saturation in Arterial blood by Pulse oximetry Systolic And Diastolic Provider Name and Address Organization Details Last Updated DateTime 5 149.86 cm 71 /min 18 /min 97 [degF] 98 % 98 % 132/74 mm[Hg] MARY SHARP NP [address] , [address], [place], [address], [facility] 5 11:43:22 Date Recorded Body height Body weight Heart rate Respiratory rate Body temperature Oxygen saturation Oxygen saturation in Arterial blood by Pulse oximetry Systolic And Diastolic Provider Name and Address Organization Details Last Updated DateTime 5 149.86 cm 66295.6 7 g 71 /min 18 /min 97 [degF] 98 % 98 % 132/74 mm[Hg] Jessica [place] NP [address] [facility], [address], [place], [address], [facility] 5 09:48:35 Social History Question Answer Notes LastModified by Organizat ion Details LastModified Time Tobacco Smoking Status Former Smoker Jessica [place] NP [address] [facility], [address], [place], [address], [facility] 12/09/2024 15:31:49 Do You Have An Advance Directive? Yes Information not available 12/09/2024 What Is Your Code Status? Full Code No Dialysis Information not available 12/09/2024 Where Do You Live? Apartment Going To Be Moving To [address]st Floor [address] D/c Information not available 02/22/2025 Legal Guardian? No Informati on not available 02/22/2025 Do You Have A Medical Power Of Optometrist Assistant? Yes Information not available 02/22/2025 What Was The Date Of Your Most Recent Tobacco Screening? 12/09/2024 Information not available 02/22/2025 Do You Have An Out Of Hospital DNR? No Information not available 12/09/2024 What Is Your Relationship Status? Filed For Divorce Prior To Her Stroke. Had Hearing 03/23 Information not available 02/22/2025 How Much Tobacco Do You Smoke? 1 PPW Unknown Information not available 12/09/2024 Has Tobacco Cessation Counseling Been Provided? No N/a As Pt Currently Doesn't Smoke Information not available 02/22/2025 Sex: Female Functional Status Question Answer Note LastModified by Organization D etails LastModified Time Do you or have you ever used any other forms of tobacco or nicotine? No Information not available 12/09/2024 What is your level of alcohol consumption? None Information not available 12/09/2024 Mental Status None recorded. Family History Nothing Reported Notes:maternal aunt lupus mo ther breast cancer Medical History No medical history recorded. Gynecological HistoryNo gynecological history recorded. Obstetrics History GPAL:G 0 P 0 0 0 0 Immunizations Vaccine Type Date Status Note Provider Nam e and Address Organization Details Recorded Time Hep B, unspecified formulation 4 [facility] 15:28:00 Hep B, unspecified formulation 4 completed Rossi Celaya [facility] 12/09/2024 15:28:09 Hep B, unspecified formulation 4 completed Rossi Celaya [facility] 12/09/2024 15:28:17 Tdap 4 completed Rossi Celaya [facility] 12/09/2024 15:29:05 Tdap 4 completed Rossi Celaya [facility] 12/09/2024 15:29:14 Pneumococcal conjugate PCV 13 4 completed Rossi Celaya [facility] 12/09/2024 15:29:28 pneumococcal polysaccharide PPV23 1 completed Rossi Celaya [facility] 12/09/2024 15:29:45 influenza, unspecified formulation 3 completed Rossi Celaya [facility] 12/09/2024 15:30:08 influenza, unspecified formulation 4 completed [facility]24 15:30:14 Hep A, unspecified formulation 4 completed Rossi Celaya [facility] 12/09/2024 15:30:29 Hep A, unspecified formulation 4 completed Rossi Celaya [facility] 12/09/2024 15:30:37 SARS-COV-2 (COVID-19) vaccine, UNSPECIFIED 1 completed Rossi Celaya [facility] 12/09/2024 15:31:01 SARS-COV-2 (COVID-19) vaccine, UNSPECIFIED 2 completed Rossi Celaya [facility] 12/09/2024 15:31:08 SARS-COV-2 (COVID-19) vaccine, UNSPECIFIED 3 completed Rossi [facility] 12/09/2024 15:31:17 SARS-COV-2 (COVID-19) vaccine, UNSPECIFIED 4 completed Rossi [facility] 12/09/2024 15:31:25 [facility], unspecified formulation [facility] 15:31:41 zoster, unspecified formulation 2 completed Rossi [facility] 12/09/2024 15:31:51 Past Encounters Encounter ID Performer Location Encounter Start Date Encounter Closed Date Diagnosis/Indication Diagnosis SNOMED-CT Code Diagnosis ICD10 Code Diagnosis IMO Codes Diagnosis Note [id number] Jessica Taylor, BRITTANEY [address] [address] 12/09/2024 15:03:43 12/10/2024 13:27:31 Carotid artery stenosis 26640435 I65.29 sp right carotid endarterec jaida, performed on 11/22/24. She suffered a right carotid dissection , hematoma, as well as a CVA, which left her with left sided hemiplegia and dysphagia now on tube feedsmonit or s/s of infectionv itals qd x 2 weeksbmp and cbc weekly x 3 weeks Cerebrovas cular accident 208166727 I63.9 sp right carotid endarterec jaida, performed on 11/22/24. She suffered a right carotid dissection , hematoma, as well as a CVA, which left her with left sided hemiplegia and dysphagia now on tube feedsPT OT eval and treatsuppo rtive careturn and position freqmonito r Left hemiplegia 53818635 8 G81.90 see above Dysphagia 95818001 R13.1 0 NPOmeds through g tubegoal:J evity [...] gtube here.kat monk to followmoni tor Hypoxia 229152047 G47.34 Pt with intubation rt hypoxia now resolvedmo nitor for sequelae Congestive heart failure 95960078 I50.9 chffurosem rashad 20 mg po qdmonitor bmp and s/s of Chronic ob structive pulmonary disease 30505579 J44.9 hx montelukas t 10 mg po qhscetiriz ine 10 mg po qd prnalbuter ol inhaler 2 inh q 6 hrs prn sobmonitor Automatic implantable cardiac defibrillator in situ 883433310 Z95.810 has cad with cath in past with LBBB and states pacemaker and defibrilla tor in hxmonitor Hypertensive disorder 38 625895 I10 amiodarone 400 mg po bid x 7days, then 200 mg po qd for 21 days, then stopentres to 24-36 po bidmetopro lol succinate 50 mg po qdspirolac tone 25 mg po qdmonitor Anemia 043497816 D64.9 hx offerrous sulfate 325 mgpo qd with vit c qdmonitor cbc and for s/s of bleeding Hyperlipidemia 62699341 E78.5 asa 81 mg qdatorvast atin 80 mg qhsentrest o 24-36 po bidmonitor Bipolar disorder 2845843 4 F31.9 hx ofsertrali ne 50 mg qdmonitor [id number] [facility] [address] 12/13/2024 08:52:27 12/14/2024 15:40:23 Unsteady when walking 81250695 R26.89 PT OT eval and treatto determine baseline Carotid ar jonas stenosis 14869561 I65.21 see HPIright carotid endarterec jaida last fered carotid dissection and CVA with resultant left hemiplegia and dysphagia requiring patient to be NPO with g-tube placedlipi tor 80 mg qdasa 81 mg qdupdate surgery with concerns Cerebrovas cular accident 948075257 I63.031 resultant left hemiplegia and dysphagiaP T OT eval and treatmonit or for improvemen t in function Left hemiplegia 14453575 8 G81.04 see above Dysphagia 91285832 I69.3 91 currently NPOg-tube dependents peech and dietary to followcont inue tube feeds Hypoxia 247904064 G47.34 Pt with intubation rt hypoxia now resolvedmo nitor for sequelae Congestive heart failure 58377323 I50.22 lasix 20 mg qdentresto 24-26 mg bidmonitor respirator y and fluid status Chronic ob structive pulmonary disease 60832185 J41.1 carrying dxcontinue out patient medsmonito r respirator y status and albuterol utilizatio n Automatic implantable cardiac defibrillator in situ 202350692 Z95.810 currently maintained onamiodaro ne taper, hx LBBBknown cad continued on asa, statin, and beta yamini Hypertensive disorder 38 133985 I10 entresto 24-36 po bidmetopro lol 50 mg po qdlasix 20 mg qdspirolac tone 25 mg po qdmonitor bp and need to titrate Anemia 314034933 D50.8 monitor cbciron studies prncontinu e supplement s Bipolar disorder 7919564 4 F31.89 carrying dx added to PMHzoloft 50 mg qdmonitor sxpsych eval prn Coronary arteriosclerosis 08587011 I25.10 lipitor 80 mg qdasa 81 mg qdmetoprol ol 50 mg qdmonitor sx [id number] Jessica aTylor NP [address] [address] 12/16/2024 10:30:08 12/17/2024 16:22:16 Carotid artery stenosis 02796456 I65.29 sp right carotid endarterec jaida, performed on 11/22/24. She suffered a right carotid dissection , hematoma, as well as a CVA, which left her with left sided hemiplegia and dysphagia on tube feedscontm onitor s/s of infection, steri strips no offvitals qd x 2 weeksfu with surgery prnbmp and cbc weekly x 3 weeks Cerebrovas cular accident 348766747 I63.9 sp right carotid endarterec jaida, performed on 11/22/24. e suffered a right carotid dissection , hematoma, as well as a CVA, which left her with left sided hemiplegia and dysphagia on tube feedsPT OT eval and treatsuppo rtive careturn and position freqassist jon with adlsmonito r Left hemiplegia 84642623 8 G81.94 see above Dysphagia 45701729 R13.1 0 NPOmeds through g tubecont g [...] to follow closelymon itor Congestive heart failure 45402478 I50.9 chffurosem rashad 20 mg po qdmonitor bmp and s/s of chf Hypertensive disorder 38 092729 I10 contamioda luanne 400 mg po bid x 7days, 200 mg po qd for 21 days, then stop for taperentre sto 24-36 po bidmetopro lol succinate 50 mg po qdspirolac tone 25 mg po qdmonitor Anemia 100868594 D64.9 hx offerrous sulfate 325 mg po qd with vit c qdmonitor cbc and for s/s of bleeding Bipolar disorder 0108152 4 F31.9 hx ofsertrali ne 50 mg qdmonitor Candidiasis of mouth 797 40075 B37.0 nystatin swish and spit x 10 daysenhanc ed teethbrush ing and oral caremouth swab with mouthwash at bedsidemon itor Chronic pain 11837377 G8 9.29 pt with pain to lower legs(pt states tyl does not work and doesn't want it)states she was on gabapentin and ibuprofen prior at home that worked welltyl prnibuprof en 400 mg gtube bidgabapen tin 100 mg tab gtube bidmonitor for relief and adjustment [id number] [facility] [place] [facility] [address] 12/17/2024 16:03:43 12/21/2024 09:59:18 Bipolar disorder 23427189 F31.9 hx ofsertrali ne 50 mg qdmonitor Insomnia 576330792 G47.0 0 12/17 start melatonin 5 mg po qhspsych consult [id number] MARY SHARP NP [address] [address] 12/21/2024 11:17:22 12/23/2024 12:10:51 Insomnia 586519402 G47.00 Started melatonin 5 mg po qhs on 12/17 - not effective - increase to 10 mg q hsReferred to psychMonit or Bipolar disorder 9310479 4 F31.9 hx ofcontinue sertraline 50 mg qdCurrentl y with issues sleeping - melatonin added and referred to [facility] or Candidiasis of mouth 797 43767 B37.0 nystatin swish and spit x 10 days addedMaint ain oral care including brushing tonguemoni tor Chronic pain 81156538 G8 9.29 pt with pain to lower [...] relief and adjustment Carotid ar jonas stenosis 93804276 I65.29 sp right carotid endarterec jaida, performed on 11/22/24. She suffered a right carotid dissection , hematoma, as well as a CVA, which left her with left sided hemiplegia and dysphagia on tube feedscontm onitor s/s of infection, steri strips no offvitals qd x 2 weeksfu with surgery prnbmp and cbc weekly x 3 weeks Cerebrovas cular accident 658496562 I63.9 sp right carotid endarterec jaida, performed [...] assessment and pain mgmt.Monit or Left hemiplegia 80869876 8 G81.94 see above Dysphagia 65069668 R13.1 0 NPOmeds through g tubecont g tube feedings - currently on jevity 1.5 @ 50 cc/h x20 h per daydietici an followingS LP eval and tx as indicatedM onitor labs, weights, s/s aspiration . Congestive heart failure 78478974 I50.9 Continue:f urosemide 20 mg po qdentresto 24-36 po bidspirola ctone 25 mg po qdmonitor bmp and s/s of chf Hypertensive disorder 38 849129 I10 contentres to 24-36 po bidmetopro lol succinate 50 mg po qdspirolac tone 25 mg po qdlasix 20 mg qdmonitor Anemia 993793396 D64.9 hx offerrous sulfate 325 mg po qd with vit c qdmonitor cbc and for s/s of bleeding Automatic implantable cardiac defibrillator in situ 830960305 Z95.810 currently maintained onamiodaro ne taper, hx LBBBknown cad continued on asa, statin, and beta yamini [id number] [facility] [place] [facility] [address] 12/23/2024 08:44:39 12/24/2024 14:25:29 Insomnia 983048863 G47.00 contmelato haydee 10 mg q hs, recently increasedR eferred to psychMonit orconsider trazodone if no improvemen t by next week Cerebrovas cular accident 027617598 I63.9 sp right carotid endarterec jaida, performed [...] assessment and pain mgmt.Monit or Left hemiplegia 61976908 8 G81.94 see above Candidiasis of mouth 797 51491 B37.0 nystatin swish and spit x 10 days total, improvingM aintain oral care including brushing tonguemoni tor Dysphagia 23851023 R13.1 0 NPOmeds through g tubecont g tube feedings - currently on jevity 1.5 @ 50 cc/h x20 h per daydietici an followingS LP eval and tx as indicatedM onitor labs, weights, s/s aspiration . Bipolar disorder 3607744 4 F31.9 hx ofcontinue sertraline 50 mg qdmelatoni n 10 mg po qhsreferre d to [facility] or Chronic pain 61790712 G8 9.29 pt denies pain this am Currently on:tyl 650 mg po tidibuprof en 400 mg gtube tidgabapen tin 100 mg tab gtube tidRefer to Dr. Flores for eval and tx.monitor for relief and adjustment Carotid ar jonas stenosis 12147572 I65.29 sp right carotid endarterec jaida, performed [...] reorder for next week Congestive heart failure 70458444 I50.9 Continue:f urosemide 20 mg po qdentresto 24-36 po bidspirola ctone 25 mg po qdmonitor bmp and s/s of chf Anemia 217330804 D64.9 hx offerrous sulfate 325 mg po qd with vit c qdmonitor cbc and for s/s of bleeding [id number] Jessica Taylor NP [address] [address] 12/29/2024 14:46:44 12/30/2024 16:28:34 Cerebrovascular accident 224597455 I63.9 sp right carotid endarterec jaida, performed [...] further assessment and pain mgmt.Monit or Insomnia 123819995 G47.0 0 contmelato haydee ineffectiv e and dc'dstarte d on trazodone 50 mg po qhs per psychRefer red to psychMonit or Left hemiplegia 66532972 8 G81.94 see above Dysphagia 62280695 R13.1 0 NPOmeds through g tubecont g tube feedings - currently on jevity 1.5 @ 50 cc/h x20 h per daydietici an followingS LP eval and tx as indicatedM onitor labs, weights, s/s aspiration . Bipolar disorder 8972093 4 F31.9 hx ofcontinue sertraline 50 mg qdmelatoni n 10 mg po qhstrazodo ne 50 mg po qhs for insomniare ferred to [facility] or Chronic pain 03127154 G8 9.29 pt denies pain todayCurre ntly on:tyl 650 mg po tidibuprof en 400 mg gtube tidgabapen tin 100 mg tab gtube tidRefer to Dr. Flores for eval and tx.monitor for relief and adjustment Carotid ar jonas stenosis 92369282 I65.29 sp right carotid endarterec jaida, performed [...] reorder for next week Congestive heart failure 44855567 I50.9 Continue:f urosemide 20 mg po qdentresto 24-36 po bidspirola ctone 25 mg po qdmonitor bmp and s/s of chf Anemia 967320161 D64.9 hx offerrous sulfate 325 mg po qd with vit c qdmonitor cbc and for s/s of bleeding Recurrent falls 23494351 2 R29.6 fall during transfer today on 12/29 without injuriesmo nitor for injuries/p ainsupport vvi carebed rails in place for left sided weakness to help herself movemonito r closely with protocol [id number] Jessica Taylor NP [address] [address] 12/30/2024 13:16:29 01/04/2025 09:05:35 Insomnia 770938985 G47.00 seems to be helpingcon ttrazodone 50 mg po qhs per psychRefer red to psychMonit or Cerebrovas cular accident [id number] I63.9 sp right carotid endarterec jaida, performed [...] assessment and pain mgmt.Monit or Left hemiplegia 41813058 8 G81.94 see above Dysphagia 97993929 R13.1 0 NPOmeds through g tubecont g tube feedings - currently on jevity 1.5 @ 50 cc/h x20 h per daydietici an followingS LP eval and tx as indicatedM onitor labs, weights, s/s aspiration . Bipolar disorder 8336316 4 F31.9 hx ofcontinue sertraline 50 mg qdtrazodon e 50 mg po qhs for insomniare ferred to Psychmonit or Chronic pain 01936895 G8 9.29 controlled Currently on:tyl 650 mg po tidibuprof en 400 mg gtube tidgabapen tin 100 mg tab gtube tidRefer to Dr. Flores for eval and tx.monitor for relief and adjustment Carotid ar jonas stenosis 16759571 I65.29 sp right carotid endarterec jaida, performed [...] just the baby asa Congestive heart failure 13159004 I50.9 Continue:f urosemide 20 mg po qdentresto 24-36 po bidspirola ctone 25 mg po qdmonitor bmp and s/s of chf Anemia 754487503 D64.9 stablehx offerrous sulfate 325 mg po qd with vit c qdmonitor cbc and for s/s of bleeding Candidiasis of mouth 797 50571 B37.0 12/30 restart nystatin swish and spit x 10 days total, improving start peridex mouthwash 15 ml apply to tongue throughout day with swab, provide in amMaintain oral care including brushing tonguemoni tor [id number] Jessica Taylor NP [address] [address] 01/03/2025 08:35:31 01/04/2025 11:27:30 Candidiasis of mouth 66099608 B37.0 contnystat in swish and spit x 10 days total, improvingp eridex mouthwash 15 ml apply to tongue throughout day with swab, provide in amMaintain oral care including brushing tonguemoni tor Insomnia 265767594 G47.0 0 seems to be helping3 0 increase trazodone 50 mg to 75 mg po qhs per psychRefer red to psychMonit or Carotid ar jonas stenosis 31243560 I65.29 sp right carotid endarterec jaida, performed [...] just the baby asa Cerebrovas cular accident [id number] I63.9 sp right carotid endarterec jaida, performed [...] assessment and pain mgmt.Monit or Left hemiplegia 48078817 8 G81.94 see above Dysphagia 08835649 R13.1 0 01/01 seen by speech and started on reg diet, puree, and honey consistenc ymeds through g tubecont g tube feedings - currently on jevity 1.5 @ 50 cc/h x20 h per daydietici an followingS LP eval and tx as indicatedM onitor labs, weights, s/s aspiration . Chronic pain 42652161 G8 9.29 controlled Currently on:tyl 650 mg po tidibuprof en 400 mg gtube tid3/10 increase gabapentin from 100 mg to 200 mg tube tid3/10 add muscle rub cream tid to left kneewill get ekg in 2 weeks with hx of cardiac disease on amiodarone apap tidRefer to Dr. Flores for eval and tx.monitor for relief and adjustment [id number] Jessica Taylor NP [address] [address] 01/05/2025 13:15:00 01/06/2025 14:55:19 Insomnia 567258999 G47.00 conttrazod one 75 mg po qhsReferre d to psychMonit or Chronic pain 36555566 G8 9.29 controlled Currently on:tyl 650 mg po tidibuprof en 400 mg gtube tidgabapen tin from 200 mg tube tidapap tidmuscle rub cream tid to left kneewill get ekg in 1 weeks with hx of cardiac disease on amiodarone Refer to Dr. Flores for eval and tx.monitor for relief and adjustment Candidiasis of mouth 797 06525 B37.0 contnystat in swish and spit x 10 days total, improving, to complete on 3/16peride x mouthwash 15 ml apply to tongue throughout day with swab, provide in amMaintain oral care including brushing tonguemoni tor Carotid ar jonas stenosis 64566238 I65.29 sp right carotid endarterec jaida, performed [...] baby asa, awaiting notes Cerebrovas cular accident [id number] I63.9 sp right carotid endarterec jaida, performed on 11/22/24.Sh e suffered a right carotid dissection , hematoma, as well as a CVA, which left her with left sided hemiplegia and dysphagia on tube feedssee pain abovePT OT SLPASA 81 mg qd for acatorvast atin [address]dDr[address] 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 Bipolar disorder 8519938 4 F31.9 hx ofcontinue sertraline 50 mg qdtrazodon e 75 mg po qhs for insomniare ferred to Psychmonit or Congestive heart failure 33275689 I50.9 Continue:f urosemide 20 mg po qdentresto 24-36 po bidspirola ctone 25 mg po qdmonitor bmp and s/s of chf Anemia 873489253 D64.9 stablehx offerrous sulfate 325 mg po qd with vit c qdmonitor cbc and for s/s of bleeding Recurrent falls 72438663 2 R29.6 monitor for injuries/p ainsupport viv carebed rails in place for left sided weakness to help herself movemonito r closely with protocol [id number] Jessica Taylor NP [facility] [address] [place] [address] 01/12/2025 08:32:32 01/17/2025 08:47:39 Dysphagia 24728109 R13.10 now with new cough ? 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 Chronic pain 43688549 G8 9.29 controlled Currently on:tyl 650 mg po tidibuprof en 400 mg gtube tidgabapen tin from 200 mg tube tidapap tidmuscle rub cream tid to left kneewill get ekg in 1 weeks with hx of cardiac disease on amiodarone Refer to Dr. Flores for eval and tx.monitor for relief and adjustment Candidiasis of mouth 797 10279 B37.0 resolvedco mpleted nystatin swish and spit x 10 days totalperid ex mouthwash 15 ml apply to tongue throughout day with swab, provide in amMaintain oral care including brushing tonguemoni tor Carotid ar jonas stenosis 64281879 I65.29 sp right carotid endarterec jaida, performed [...] baby asa, awaiting notes Cerebrovas cular accident [id number] I63.9 sp right carotid endarterec jaida, performed on 11/22/24.Sh ashley suffered a right carotid dissection , hematoma, as well as a CVA, which left her with left sided hemiplegia and dysphagia on tube feedssee pain abovePT OT SLPASA 81 mg qd for acatorvast atin [address] mg qdDr. Flores for further assessment and pain mgmt.Monit or Left hemiplegia 02252593 8 G81.94 see above Bipolar disorder 9386844 4 F31.9 hx ofcontinue sertraline 50 mg qdtrazodon e 75 mg po qhs for insomniare ferred to Psychmonit or Congestive heart failure 05054454 I50.9 Continue:f urosemide 20 mg po qdentresto 24-36 po bidspirola ctone 25 mg po qdmonitor bmp and s/s of chf Cough 67867702 R05.9 now with new cough ? related to eating01/12 start mucinex 600 mg po bid x 74gqrq2/19 cxr for cough ro asp01/12 speech to eval for new coughcont robitussin prnmonitor [id number] Jessica Taylor NP [address] [address] 01/13/2025 09:17:58 01/17/2025 09:21:59 Cough 76542291 R05.9 now with new cough ? related to eating01/12 start mucinex 600 mg po bid x 46sufr3/19 cxr for cough ro asp3/19 speech to eval for new cough01/13 xray still pendingcon t robitussin prnmonitor Dysphagia 65552527 R13.1 0 now with new cough ? 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 Chronic pain 38082148 G8 9.29 controlled , reports still having [...] for relief and adjustment Cerebrovas cular accident [id number] I63.9 sp right carotid endarterec jaida, performed on 11/22/24.Sh ashley suffered a right carotid dissection , hematoma, as well as a CVA, which left her with left sided hemiplegia and dysphagia on tube feedssee pain abovePT OT SLPASA 81 mg qd for acatorvast atin [address] mg qdDr[address] Flores for further assessment and pain mgmt.Monit or Left hemiplegia 74812168 8 G81.94 see above [id number] Jessica Taylor NP [address] [address] 01/20/2025 10:37:44 01/24/2025 12:55:51 Cough 87525371 R05.9 now with new cough ? related to eatingcont mucinex 600 mg po bid for a few more daysspeech to eval for new cough and fees done on 01/19 see hpi01/13 xray still unremarkab lecont robitussin prnmonitor Dysphagia 83940329 R13.1 0 now with new cough ? 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 ELECTROMATIC TYPIST eval and tx as indicatedM onitor labs, weights, s/s aspiration .monitor for need to dc gtube in one to two months when eating and gaining weight consistent ly Chronic pain 13180246 G8 9.29 controlled , reports still having [...] for relief and adjustment Cerebrovas cular accident [id number] I63.9 sp right carotid endarterec jaida, performed on 11/22/24.Sh ashley suffered a right carotid dissection , hematoma, as well as a CVA, which left her with left sided hemiplegia and dysphagia on tube feedssee pain abovePT OT SLPASA 81 mg qd for acatorvast atin 80 mg qdDrJaiden Flores for further assessment and pain mgmt.Monit or Left hemiplegia 04301779 8 G81.94 see above [id number] Jessica Taylor NP [facility] [address] [place] [address] 01/27/2025 11:29:47 01/31/2025 08:39:10 Cough 08971620 R05.9 resolved xray still unremarkab lecont robitussin prnmonitor Dysphagia 82676946 R13.1 0 contreg diet, puree, and honey [...] and gaining weight consistent ly Chronic pain 34186792 G8 9.29 controlled Currently on:tyl 650 mg po tidibuprof en 400 mg gtube tidgabapen tin from 200 mg tube tidapap tidmuscle rub cream tid to left kneeRefer to Dr. Flores for eval and tx.tizanid ine and leave prn q 8 hours prn for spasticity , did not georges the sched dosesmonit or for relief and adjustment Cerebrovas cular accident [id number] I63.9 sp right carotid endarterec jaida, performed on 11/22/24.Cole ramirez suffered a right carotid dissection , hematoma, as well as a CVA, which left her with left sided hemiplegia and dysphagia on tube feedssee pain abovePT OT SLPASA 81 mg qd for acatorvast atin [address] mg qdDr[address] Flores for further assessment and pain mgmt.Monit or Left hemiplegia 16557638 8 G81.94 see above [id number] Jessica Taylor NP [facility] [address] [place] [address] 02/04/2025 11:17:37 02/07/2025 13:13:20 Dysphagia 79819469 R13.10 contreg diet, puree, and honey consistenc y4 tolerating meds with nurse in afternoon, will [...] and gaining weight consistent ly Chronic pain 17897393 G8 9.29 no painContty l 650 mg po tidibuprof en 400 mg po tidgabapen tin from 200 mg po tidapap tidmuscle rub cream tid to left kneeRefer to Dr. Flores for eval and tx.tizanid ine and leave prn q 8 hours prn for spasticity , did not georges the sched dosesmonit or for relief and adjustment Cerebrovas cular accident [id number] I63.9 sp right carotid endarterec jaida, performed on 11/22/24.Sh ashley suffered a right carotid dissection , hematoma, as well as a CVA, which left her with left sided hemiplegia and dysphagia on tube feedssee pain abovePT OT SLPASA 81 mg qd for acatorvast atin [address] qdDr[address] Flores for further assessment and pain mgmt.Monit or Left hemiplegia 91264037 8 G81.94 see above [id number] Jessica Taylor NP [facility] [address] [place] [address] 02/09/2025 09:59:15 02/14/2025 09:40:51 Chronic pain 91661778 G89.29 no painContty l 650 mg po tidibuprof en 400 mg po tidgabapen tin from 200 mg po tidapap tidmuscle rub cream tid to left kneeRefer to Dr. Flores for eval and tx.tizanid ine and leave prn q 8 hours prn for spasticity , did not georges the sched dosesmonit or for relief and adjustment Dysphagia 19495575 R13.1 0 contreg diet, puree, and honey consistenc yg tube feeds stopped >2 weeks ago and gaining weight, and doing wellcont g tube flush to 30cc qd for patencytak ing po meds wellSLP eval and tx as indicateds wallow study at [facility] on 02/10monito r weights, s/s aspiration .monitor for need to dc gtube in one to two months when eating and gaining weight consistent ly Cerebrovas cular accident [id number] I63.9 sp right carotid endarterec jaida, performed on 11/22/24.Cole ramirez suffered a right carotid dissection , hematoma, as well as a CVA, which left her with left sided hemiplegia and dysphagia on tube feedssee pain abovePT OT SLPcontASA 81 mg qd for acatorvast atin 80 mg qdDrJaiden Flores following for pain mgmt.Monit or Left hemiplegia 47411646 8 G81.94 see above Nasal congestion 6382473 0 R09.81 54673 reports nasal congestion and occ cough for 1.5 weekslast cxr 01/13 unremarkab le02/09alre surya on cetirizine 10 mg po qam and singularst artrobitus sin q 4 hrs prnmucinex dm 1 tab po bid x 7 dayscovid testmonito r [id number] MARY SHARP NP [address] [address] 02/15/2025 13:35:56 02/18/2025 12:45:27 Chronic pain 71919241 G89.29 no painContty l 650 mg po tidibuprof en 400 mg po tidgabapen tin from 200 mg po tidapap tidmuscle rub cream tid to left kneeReferr ed to Dr. Flores for eval and tx.tizanid ine q 8 hours prn for spasticity , did not georges the sched dosesmonit or for relief and adjustment Dysphagia 46027553 R13.1 0 contreg diet, puree, and honey consistenc yg tube feeds stopped >2 weeks ago and gaining weight, and doing wellcont g tube flush to 30cc qd for patencytak ing po meds wellSLP eval and tx as indicateds wallow study at [facility] on 02/10monito r weights, s/s aspiration .monitor for need to dc gtube in one to two months when eating and gaining weight consistent ly Cerebrovas cular accident [id number] I63.9 sp right carotid endarterec jaida, performed on 11/22/24.Sh ashley suffered a right carotid dissection , hematoma, as well as a CVA, which left her with left sided hemiplegia and dysphagia on tube feedssee pain abovePT OT SLPcontASA 81 mg qd for acatorvast atin [address]dDr[address] [place] following for pain mgmt.Monit or Left hemiplegia 81849496 8 G81.94 see above Injury of nail 091266850 S99.822A 23638076 Partially avulsed left 4th toenail, clean, no bleeding, minor pink inflammati on of toe. Toe nail very was long, able to be easily trimmed shorter with curved edges to reduce chance of snagging on clothing and socks. Covered with band aid as well to reduce trauma to nailbed - change qd, monitor for s/s infection. Refer to podiatry for possible nail removal. [id number] Florina Nino MD [address] [address] 02/22/2025 19:59:58 05/19/2025 10:57:35 Injury of nail 636286202 S99.822A 95755087 Partially avulsed left 4th toenail, clean, no bleeding, minor pink inflammati on of toe. Toe nail very was long, able to be easily trimmed shorter with curved edges to reduce chance of snagging on clothing and socks. Covered with band aid as well to reduce trauma to nailbed - change qd, monitor for s/s infection. Refer to podiatry for possible nail removal. Chronic pain 42129138 G8 9.29 As above. Dysphagia 70062740 R13.1 9 198049 Improving. Now eating reg diet with thin liquids and taking meds po.Will need to arrange removal of G-Tube.Con tinue ELECTROMATIC TYPIST tx prn.Monito r for aspiration . Carotid ar jonas stenosis 64271489 I65.29 As aboveF/U with Dr De Anda as planned. Bipolar disorder 3866031 4 F31.89 3115568 Mood stable.Con tinue sertraline 50 mg qd and trazodone 75 mg qhs.Monito r mood.Consu lt psych prn Anemia 882034860 D64.9 StableCont inue ferrous sulfate 325 mg qd with vit c 250 mg qd for absorption .Monitor labs Chronic ob structive pulmonary disease 11394159 J41.1 No current sxs.Contin ue montelukas t 10 mg qd, cetirizine 10 mg qd and albuterol MDI 1 puff q 6 hrs prn.Monito r resp status Coronary arteriosclerosis 10709628 I25.10 No recent sxs.Contin ue meds as above.Lorna tor sx Automatic implantable cardiac defibrillator in situ 465908848 Z95.[address]Lorna torF/U with cardio as planned. Hypertensive disorder 38 215476 I10 Only one BP charted in past month, with sl elevated DBP.Contin ue meds as above and request weekly BPs. 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 Continue ASA 81 mg qd and atorvastat in 80 mg qd.For pain and spasms continue ibuprofen 400 mg TID, APAP 1000 mg TID, gabapentin 200 mg TID, and tizanidine [address] Flores, PM&R, following for pain mgmt.Monit or Chronic co mbined systolic and diastolic heart failure 7705639394 03245 I50.42 263349 Echo from 2023 showed EF of 30-35% with impaired relaxation .Appears euvolemic. Continue furosemide 20 mg qd, entresto 24/36 mg BID, metoprolol 50 mg qd, and spironolac tone 25 mg qd.Monitor resp. status, fluid status, wts and labs. [id number] MARY SHARP NP [facility] [address] 03/01/2025 09:12:04 03/03/2025 13:13:07 Cerebrovascular accident 574229066 I63.9 S/P right carotid endarterec jaida, performed on 11/22/24.Sh ashley suffered a right carotid dissection , hematoma, as well as a CVA, which left her with left sided hemiplegia and dysphagia on tube feeds.Cont inue PT OT SLPNow on regular diet with thins, georges. well. Taking pills wholeConti nue:ASA 81 mg qdatorvast atin [address] mg qdDr. Mark following for pain mgmt. Dysphagia 64272296 R13.1 0 Working with ELECTROMATIC TYPIST, making gains.Diet advanced to regular with thins, georges. well so far.Taking meds whole.Lorna tor weightsFlu sh G Tube to maintain patency, can remove in the near future if weights stable and meeting nutritiona l needs and no s/s aspiration . Left hemiplegia 15230807 8 G81.94 see aboveWorki ng with PT OTPMR also involved to help with pain mgmt.Radha nue:Ibupro fen 400 mg tidAPAP 1 gm tidGabapen tin 200 mg tidTizanid ine 2 mg tid prn Congestive heart failure 88362295 I50.9 Continue:f urosemide 20 mg po qdentresto 24-36 po bidspirola ctone 25 mg po qdmonitor bmp and s/s of chf Chronic pain 58768416 G8 9.29 Comfortabl e at presentCon tinue APAP, ibuprofen, gabapentin , tizanidine PMR involved with POC Injury of nail 441650603 S99.822A 22970268 Partially avulsed left 4th toenail 2 wks ago, now healing. Unsure if seen by Podiatry, but nail still intact. Nailbed dark, no s/s infection or pain. Continue to monitor. Carotid ar jonas stenosis 79200700 I65.29 sp right carotid endarterec jaida, performed on 11/22/24 complicate d by right carotid dissection , hematoma, and CVA with residual L sided weakness and dysphagia. Continue ASA and statin.fu with surgery prn - had an appt with Dr De Anda on 01/04 Bipolar disorder 8505993 4 F31.9 hx ofcontinue sertraline 50 mg qdtrazodon e 75 mg po qhs for insomniare ferred to Psychmonit or Insomnia 711715726 G47.0 0 conttrazod one 75 mg po qhsReferre d to psychMonit or Anemia 053943716 D64.9 stablehx offerrous sulfate 325 mg po qd with vit c qdmonitor cbc and for s/s of bleeding Chronic ob structive pulmonary disease 48911466 J41.1 carrying dxcontinue out patient medsmonito r respirator y status and albuterol utilizatio n Coronary arteriosclerosis 58808205 I25.10 Continue:l ipitor 80 mg qdasa 81 mg qdmetoprol ol 50 mg qdentresto 24-36 po bidspirola ctone 25 mg po qdmonitor sx Automatic implantable cardiac defibrillator in situ 016963599 Z95.810 H/O LBBBComple jesus amiodarone taper.Cont inues on metoprolol 50 mg qd Hypertensive disorder 38 900323 I10 Continue:e ntresto 24-36 po bidmetopro lol 50 mg po qdlasix 20 mg qdspirolac tone 25 mg po qdmonitor bp and need to titrate Chronic cough 47086346 R 05.3 94998 Dry, worst in am, x 1 month.Has had before, uses Vicks at home, OK to use hereUnclea r etiology, possibly allergies, COPD, GERD, ACEI induced.Ivana ngs clear, VSS Plan -Monitor, ok to use Vicks prnAdd flonase qd x 30 daysEnc. use of prn ventolin, can consider scheduling Continue to monitorCan consider increasing PPICan consider stopping Entresto if not responsive to other measures. [id number] Jessica Taylor, [facility] [address] 03/02/2025 09:36:31 03/03/2025 13:23:58 Chronic cough 82792517 R05.3 50657 Dry, reports ongoing for a month with hx of allergiesV icks at home, OK to use here, with minimal help todayagree with other [employer] that unnclear etiology, possibly allergies, COPD, GERD, ACEI induced.Ivana ngs clear, VSS covid negative on testing, with rhinorhea cont5/7 add robitussin 10 ml q 4hours prn cough x 30 daysok to use Vicks prncont flonase qd x 30 days added yesterday- not in yetEnc. use of prn ventolin, can consider scheduling Continue to monitorCan consider increasing PPICan consider stopping Entresto if not responsive to other measures. Cerebrovas cular accident 707581322 I63.9 S/P right carotid endarterec jaida, performed on 11/22/24.Sh ashley suffered a right carotid dissection , hematoma, as well as a CVA, which left her with left sided hemiplegia and dysphagia on tube feeds.Cont inue PT OT ELECTROMATIC TYPIST(off tube feeds )regular diet for about 1 month with georges bonilla. well.Takin g pills wholeConti nue:ASA 81 mg qdatorvast atin [address] qdDr[address] [place]ip[place] following for pain mgmt. Dysphagia 40768175 R13.1 0 Working with ELECTROMATIC TYPIST, making gains.Diet regular with georges bonilla. well so far.Taking meds whole.Lorna tor weightsFlu G Tube to maintain patency, can remove in the near future if weights stable and meeting nutritiona l needs and no s/s aspiration .pt would like g tube out when advised. consider surgeon appt in march/april if contains with weight gain/and no aspiration Left hemiplegia 55929853 8 G81.94 see aboveFarzanehi nury with PT OTPMR also involved to help with pain mgmt.Cont: Ibuprofen 400 mg tidAPAP 1 gm tidGabapen tin 200 mg tidTizanid ine 2 mg tid prn Congestive heart failure 53238075 I50.9 stableCont inue:furos emide 20 mg po qdentresto 24-36 po bidspirola ctone 25 mg po qdmonitor bmp and s/s of chf Chronic pain 19092167 G8 9.29 Comfortabl e at presentCon tAPAP, ibuprofen, gabapentin , tizanidine PMR involved with POC [id number] [facility] [place] [address] 03/04/2025 08:25:35 03/08/2025 14:08:28 Chronic cough 11193321 R05.3 66833 Dry, reports ongoing for a month with hx of allergiesD DX likely allergies, COPD, GERD, ACEI induced.Ivana ngs clear, VSS covid negative on testing, with rhinorhea controbitu ssin 10 ml q 4hours prn cough x 30 daysVicks prn okay to use per requestflo nase qd x 30 days added -not in yet still -nsg to look intoEnc. use of prn ventolin, can consider scheduling Continue to monitorCan consider increasing PPICan consider stopping Entresto if not responsive to other measures. Cerebrovas cular accident [id number] I63.9 S/P right carotid endarterec jaida, performed on 11/22/24.Sh ashley suffered a right carotid dissection , hematoma, as well as a CVA, which left her with left sided hemiplegia and dysphagia on tube feeds.Cont inue PT OT ELECTROMATIC TYPIST(off tube feeds )regular diet for about 1 month with chad georges. well.Takin g pills wholeConti nue:ASA 81 mg qdatorvast atin [address] qdDr. [place]ip[place] following for pain mgmt. Dysphagia 08330384 R13.1 0 Working with ELECTROMATIC TYPIST, making gains.Diet regular with thins georges. well so far.Taking meds whole.Lorna tor weightsFlu G Tube to maintain patency, can remove in the near future if weights stable and meeting nutritiona l needs and no s/s aspiration .pt would like g tube out when advised. consider surgeon appt in march/april if contains with weight gain/and no aspiration Left hemiplegia [id number] 8 G81.94 see aboveJessie arrington with PT OTPMR also involved to help with pain mgmt.Cont: Ibuprofen 400 mg tidAPAP 1 gm tidGabapen tin 200 mg tidTizanid ine 2 mg tid prn5/9 dc planning: met with therapy with plan to move to handicap aptwill need Wheelchair with arm bolster left side with strap for positionin g, swing away arm rest and leg rest and gel cushion, full electric bed, mattress, versa frame 3:1 commode, tub bench seatscript s provided Congestive heart failure 91533766 I50.9 stableCont inue:furos emide 20 mg po qdentresto 24-36 po bidspirola ctone 25 mg po qdmonitor bmp and s/s of chf Chronic pain 42700898 G8 9.29 Comfortabl e at presentCon tAPAP, ibuprofen, gabapentin , tizanidine PMR involved with POC [id number] Jessica Taylor NP [facility] [address] [place] [address] 03/07/2025 14:41:35 03/08/2025 14:33:37 Left hemiplegia 514293280 G81.94 see aboveFarzanehi nury with PT OTPMR also involved to help with pain mgmt.Cont: Ibuprofen 400 mg tidAPAP 1 gm tidGabapen tin 200 mg tidTizanid ine 2 mg tid prntherapy consulted with plan to move to handicap aptscripts written for and given to social workerWhee lchair with arm bolster left side with strap for positionin g, swing away arm rest and leg rest and gel cushion, full electric bed, mattress, versa frame 3:1 commode, tub bench seat Cerebrovas cular accident [id number] I63.9 S/P right carotid endarterec jaida, performed on 11/22/24.Sh ashley suffered a right carotid dissection , hematoma, as well as a CVA, which left her with left sided hemiplegia and dysphagia on tube feeds.Cont inue PT OT ELECTROMATIC TYPIST(off tube feeds )regular diet for about 1 month with georges bonilla. well.Takin g pills wholeCont: ASA 81 mg qdatorvast atin [address] mg qdDr. Scipio following for pain mgmt. Chronic cough 42107443 R 05.3 45196 resolvingD ry, reports ongoing for a month with hx of allergiesD DX likely allergies, COPD, GERD, ACEI induced.Ivana ngs clear, VSScovid negative on testing, with rhinorheac ontrobitus sin 10 ml q 4hours prn cough x 30 daysVicks prn okay to use per requestflo nase qd x 30 days added -not in yet still -nsg to look intoEnc. use of prn ventolin, can consider scheduling Continue to monitorCan consider increasing PPICan consider stopping Entresto if not responsive to other measures. Dysphagia 06191250 R13.1 0 Working with ELECTROMATIC TYPIST, making gains.Diet regular with chad georges. well so far.Taking meds whole.Lorna tor weightsFlu G Tube to maintain patency, can remove in the near future if weights stable and meeting nutritiona l needs and no s/s aspiration .pt would like g tube out when advised. consider surgeon appt in march/april if contains with weight gain/and no aspiration Congestive heart failure 51321440 I50.9 stableCont inue:furos emide 20 mg po qdentresto 24-36 po bidspirola ctone 25 mg po qdmonitor bmp and s/s of chf Chronic pain 53867341 G8 9.29 Comfortabl e at presentCon tAPAP, ibuprofen, gabapentin , tizanidine PMR involved with POC Diarrhea 54470099 R19.7 53675658 Pt reports eating non refrigerat ed sandwich with sp diarrheash e reports diarrhea resolved and eating and drinking regularly todaymonit or [id number] Jessica Taylor NP [address] [address] 03/16/2025 09:58:48 03/17/2025 14:05:14 Cerebrovascular accident [id number] I63.9 S/P right carotid endarterec jaida, performed on 11/22/24.Sh e suffered a right carotid dissection , hematoma, as well as a CVA, which left her with left sided hemiplegia and dysphagia on tube feeds.Cont inue PT OT ELECTROMATIC TYPIST(off tube feeds )regular diet for about 1.5 months with georges bonilla. well.Takin g pills wholeCont: ASA 81 mg qdatorvast atin 80 mg qdDr. Mark following for pain mgmt. Left hemiplegia 53726923 8 G81.94 see aboveWorki ng with PT OTPMR also involved to help with pain mgmt.Cont: Ibuprofen 400 mg tidAPAP 1 gm tidGabapen tin 200 mg tidTizanid ine 2 mg tid prntherapy consulted with plan to move to handicap aptscripts written for and given to outreach and education social worker last weekWheelc hair with arm bolster left side with strap for positionin g, swing away arm rest and leg rest and gel cushion, full electric bed, mattress, versa frame 3:1 commode, tub bench seat Chronic cough 77509553 R 05.3 49997 resolving with belowDry, reports ongoing for a month with hx of allergiesD DX likely allergies, COPD, GERD, ACEI induced.Ivana ngs clear, VSScontrob itussin 10 ml q 4hours prn cough unitl 6/6Vicks prn okay to use per requestflo nase qd x 30 days added nc. use of prn ventolin, can consider scheduling Continue to monitor Dysphagia 24237866 R13.1 0 Working with ELECTROMATIC TYPIST, making gains.Diet regular with thins, georges. well so far.Taking meds whole.Lorna tor weightsFlu sh G Tube to maintain patency, can remove in the near future if weights stable/imp roving and meeting nutritiona l needs and no s/s aspiration for 2-3 months.pt would like g tube out when advised.co nsider surgeon appt in if contains with weight gain/and no aspiration Chronic pain 38007886 G8 9.29 Comfortabl e at presentCon tAPAP, ibuprofen, gabapentin , tizanidine PMR involved with POC Congestive heart failure 25129887 I50.9 stableCont inue:furos emide 20 mg po qdentresto 24-36 po bidspirola ctone 25 mg po qdmonitor bmp and s/s of chf, will reorder for 03/23 cmp, bnp, cbc Injury of nail 519029498 S99.822A 86583355 Partially avulsed left 4th toenail now healing. Unsure if seen by Podiatry, but nail still intact. Nailbed dark, no s/s infection or pain. Continue to monitor. Carotid ar jonas stenosis 69236012 I65.29 sp right carotid endarterec jaida, performed on 11/22/24 complicate d by right carotid dissection , hematoma, and CVA with residual L sided weakness and dysphagia. Continue ASA and statin.fu with surgery prn - had an appt with Dr De Anda on 01/04 Bipolar disorder 1094425 4 F31.9 hx ofcontinue sertraline 50 mg qdtrazodon e 100 mg po qhs for insomniare ferred to Psychmonit or Insomnia 723209830 G47.0 0 conttrazod one 100 mg po qhsReferre d to psychMonit or Anemia 136120164 D64.9 stablehx offerrous sulfate 325 mg po qd with vit c qdmonitor cbc and for s/s of bleeding Chronic ob structive pulmonary disease 04062774 J41.1 carrying dxcontinue out patient medsmonito r respirator y status and albuterol utilizatio n Coronary arteriosclerosis 69762113 I25.10 Continue:l ipitor 80 mg qdasa 81 mg qdmetoprol ol 50 mg qdentresto 24-36 po bidspirola ctone 25 mg po qdmonitor sx Automatic implantable cardiac defibrillator in situ 138875429 Z95.810 H/O LBBBComple jesus amiodarone taper.cont metoprolol 50 mg qd Hypertensive disorder 38 598941 I10 Continue:e ntresto 24-36 po bidmetopro lol 50 mg po qdlasix 20 mg qdspirolac tone 25 mg po qdmonitor bp and need to titrate Recurrent falls 33099327 2 R29.6 monitor for injuries/p ainsuptami deane carebed rails in place for left sided weakness to help herself movemonito r closely with protocol [id number] Jessica Taylor NP [facility] [address] 03/24/2025 09:23:03 03/30/2025 08:40:23 Cerebrovascular accident 658320166 I63.9 S/P right carotid endarterec jaida, performed on 11/22/24.Sh ashley suffered a right carotid dissection , hematoma, as well as a CVA, which left her with left sided hemiplegia and dysphagia on tube feeds.Cont inue PT OT ELECTROMATIC TYPIST(off tube feeds )regular diet for about 1.5 months with thins, georges. well. consider removal of g tube in april if weight remains stable. She has not gained any weight on supplement s and po foods, just maintained .Taking pills wholeCont: ASA 81 mg qdatorvast atin [address] qdDr. Mark following for pain mgmt. Left hemiplegia 60658036 8 G81.94 stable on this regimenPMR also involved to help with pain mgmt.Cont: Ibuprofen 400 mg tidAPAP 1 gm tidGabapen tin 200 mg tidTizanid ine 2 mg tid prnplan:th silvano consulted with plan to move to handicap aptscripts written for already and given to outreach and education social worker last weekWheelc hair with arm bolster left side with strap for positionin g, swing away arm rest and leg rest and gel cushion, full electric bed, mattress, versa frame 3:1 commode, tub bench seat Chronic cough 25855383 R 05.3 26542 remains with slight dry cough at baselineDr y, reports ongoing for a month with hx of allergiesD DX likely allergies, COPD, GERD, ACEI induced.Ivana ngs clear, VSScontrob itussin 10 ml q 4hours prn cough unitl 6/6Vicks prn okay to use per requestflo nase qd x 30 days added 66Enc. use of prn ventolin, can consider scheduling Continue to monitor Dysphagia 65185643 R13.1 0 Working with ELECTROMATIC TYPIST, making gains.Diet regular with thins, georges. well so far.Taking meds whole.Lorna tor weightsFlu sh G Tube to maintain patency, can remove in the near future if weights stable/imp roving and meeting nutritiona l needs and no s/s aspiration for 2-3 months.pt would like g tube out when advised.co nsider surgeon appt in april if contains with weight gain/and no aspiration Chronic pain 73398292 G8 9.29 Comfortabl e at presentCon tAPAP, ibuprofen, gabapentin , tizanidine PMR involved with POC Congestive heart failure 91511684 I50.9 stable bnp as aboveConti nue:furose mide 20 mg po qdentresto 24-36 po bidspirola ctone 25 mg po qdmonitor bmp and s/s of chf, will reorder for 03/23 cmp, bnp, cbc Carotid ar jonas stenosis 79220857 I65.29 sp right carotid endarterec jaida, performed on 11/22/24 complicate d by right carotid dissection , hematoma, and CVA with residual L sided weakness and dysphagia. Continue ASA and statin.fu with surgery prn - had an appt with Dr De Anda on 01/04 Bipolar disorder 3157381 4 F31.9 hx ofcontinue sertraline 50 mg qdtrazodon e 100 mg po qhs for insomniare ferred to Psych[facility] or Insomnia 283829118 G47.0 0 conttrazod one 100 mg po qhsReferre d to psychMonit or Anemia 653936146 D64.9 stablehx offerrous sulfate 325 mg po qd with vit c qdmonitor cbc and for s/s of bleeding Automatic implantable cardiac defibrillator in situ 442279012 Z95.810 H/O LBBBComple jesus amiodarone taper.cont metoprolol 50 mg qd Hypertensive disorder 38 233541 I10 Continue:e ntresto 24-36 po bidmetopro lol 50 mg po qdlasix 20 mg qdspirolac tone 25 mg po qdmonitor bp and need to titrate Recurrent falls 68730076 2 R29.6 no recent fallsmonit or for injuries/p ainsupport viv carebed rails in place for left sided weakness to help herself movemonito r closely with protocol Dizziness 315221581 R42 89193 see hpilabs stable, appears euvolemic start meclizine 12.5 mg po q 8hrs03/24 start orthostast atic bp x 1adjust meds prnmonitor [id number] MARY SHARP [facility] [address] [place] [address] 03/29/2025 11:41:56 04/05/2025 10:09:45 Bipolar disorder 79754065 F31.9 Recent issues with insomniaSe en by Psych 03/28, recommendi ng increasing trazodone to 150 mg q hs which pt. is agreeable to trying to see if it will help with sleep.Cont inue sertraline 50 mg qdMonitor and update Psych with concerns. [id number] Jessica Taylor NP [facility] [address] [place] [address] 04/06/2025 08:16:31 04/12/2025 10:51:42 Bipolar disorder 19072106 F31.9 Recent issues with insomniaCo ntinuesert raline 50 mg qdtrazodon e 100 mg po qhsMonitor and update Psych with concerns outpt Dizziness 524024729 R42 83447 hx oflabs stable, appears euvolemicc ontmeclizi ne 12.5 mg po q 8hrsadjust meds prnmonitor outpt with pcp Cerebrovas cular accident 871773135 I63.9 S/P right carotid endarterec jaida, performed on 11/22/24.Sh ashley suffered a right carotid dissection , hematoma, as well as a CVA, which left her with left sided hemiplegia and dysphagia on tube feeds.Cont inue PT OT ELECTROMATIC TYPIST(off tube feeds )regular diet for about 1.5 months with chad georges. well. consider removal of g tube in april if weight remains stable. She has not gained any weight on supplement s and po foods, just maintained .Taking pills wholeCont: ASA 81 mg qdatorvast atin 80 mg qdDr. Mark following for pain mgmt. Left hemiplegia 72538487 8 G81.94 stable on this regimenPMR also involved to help with pain mgmt.Cont: Ibuprofen 400 mg tidAPAP 1 gm tidGabapen tin 200 mg tidTizanid ine 2 mg tid prnplan: silvano consulted with plan to move to handicap aptscripts written for already and given to outreach and education social worker last weekWheelc hair with arm bolster left side with strap for positionin g, swing away arm rest and leg rest and gel cushion, full electric bed, mattress, versa frame 3:1 commode, tub bench seatfu with pcp outpt Chronic cough 37966546 R 05.3 90907 remains with slight dry cough at baselineDr y, reports ongoing for a month with hx of allergiesD DX likely allergies, COPD, GERD, ACEI induced.Ivana ngs clear, VSScontrob itussin 10 ml q 4hours prn cough unitl 6/6Vicks prn okay to use per requestflo nase qd x 30 days added 6/6Enc. use of prn ventolin, can consider scheduling Continue to monitor and fu outpt with pcp Dysphagia 63122062 R13.1 0 Working with ELECTROMATIC TYPIST, making gains.Diet regular with chad georges. well so far.Taking meds whole.Lorna tor weightsFlu sh G Tube to maintain patency, can remove in the near future if weights stable/imp roving and meeting nutritiona l needs and no s/s aspiration for 2-3 months.pt would like g tube out when advised.co nsider surgeon appt in april if contains with weight gain/and no aspiration for g tube removal Chronic pain 97816357 G8 9.29 Comfortabl e at presentCon tAPAP, ibuprofen, gabapentin , tizanidine PMR involved with POC Congestive heart failure 00058074 I50.9 stable bnp as aboveConti nue:furose mide 20 mg po qdentresto 24-36 po bidspirola ctone 25 mg po qdfu outpt wtih pcp Carotid ar jonas stenosis 20589470 I65.29 sp right carotid endarterec jaida, performed on 11/22/24 complicate d by right carotid dissection , hematoma, and CVA with residual L sided weakness and dysphagia. Continue ASA and statin.fu with surgery/va scular prn and outpt with pcp Insomnia 300333762 G47.0 0 conttrazod one 100 mg po qhsReferre d to psych here, fu outpt prnMonitor outpt with pcp Anemia 801981535 D64.9 stablehx offerrous sulfate 325 mg po qd with vit c qdmonitor with pcp outpt Automatic implantable cardiac defibrillator in situ 425924691 Z95.810 H/O LBBBComple jesus amiodarone taper.cont metoprolol 50 mg qdfu with pcp outpt Hypertensive disorder 38 864773 I10 Continue:e ntresto 24-36 po bidmetopro lol 50 mg po qdlasix 20 mg qdspirolac tone 25 mg po qdmonitor bp and need to titrate outpt with pcp Recurrent falls 66855847 2 R29.6 no recent fallsmonit or for injuries/p ainsupport viv carebed rails in place for left sided weakness to help herself movemonito r closely with protocol and vna Chronic ob structive pulmonary disease 81091554 J41.1 carrying dxcontinue out patient medsmonito r respirator y status and albuterol utilizatio n outpt with pcp Coronary arteriosclerosis 82386455 I25.10 Continue:l ipitor 80 mg qdasa 81 mg qdmetoprol ol 50 mg qdentresto 24-36 po bidspirola ctone 25 mg po qdmonitor sx outpt with pcp Seasonal allergy 3697498 04 J30.2 75266 singulair 10 mg qd \flonase 1 spray each nare qdfu with pcp Gastroesop hageal reflux disease without esophagitis 262620860 K21.9 354845 hx ofpantopra zole 40 mg po qdmonitor outpt with pcp Health Concerns Section Related Observation LastModified by Organization Detai ls LastModified Time None Recorded Concern Status LastModified by Organization Details LastModified Time None Recorded Advance Directives Directive Y: Payers Insurance Date Sequence Insurance Name Policy Number Policy Stanford Covered Member ID Stanford Member ID Guarantor Name 05/20/2025 1 [facility] - DOS ON OR AFTER 2023 - MEDICARE ADVANTAGE [place] (MEDICARE REPLACEMENT/ADV ANTAGE - PPO) Renita Brandon [id number] Renita Brandon Notes Date Note Type Note Provider Name and Address Organization Details Recorded Time 03/07/2025 text/html Renita is seen today for an acute rounding visit for diarrhea. Her PMH includes HTN, hx of carotid artery stenosis s/p right carotid dissection with left hemiplegia, CHF, GERD, bipolar dz, COPD, HLD, and anemia. . Renita is motoring in wheelchair today in good spirits in NAD. She reports she saved a sandwich and ate it 6-7 hours later that was not refrigerated and then had diarrhea. She reports it is now resolved and back to normal without diarrhea today. On exam today, Renita's speech has improved. Lungs CTA. She continues with left sided weakness. She asks about DME equipment and she is aware all scripts were sent in. Of note: She is a 54 yo woman admitted here on 12/08/24 after a hospitalization at [facility] for a right carotid dissection after a right carotid endarterectomy, performed on 11/22/2024. Resulting in left-sided hemiplegia and dysphagia. A PEG was placed and she was NPO for several monthsShe has been working with rehab, still with left sided weakness able to move her left leg minimally and no movement of her left arm and hand. She reports feeling and some sensation to both left extremities. She continues working with ELECTROMATIC TYPIST, making good progress, remains on regular diet with thin liquids, georges. well, maintaining weights so far. Taking pills whole Jessica Taylor, BRITTANEY [address] [facility], [address], [place], [address], [facility] [employer] 03/07/2025 17:48:15 03/16/2025 text/html Renita is seen today for a 90 routine rounding visit. Her PMH includes HTN, hx of carotid artery stenosis s/p right carotid dissection with left hemiplegia, CHF, GERD, bipolar dz, COPD, HLD, and anemia. She is a 54 yo woman admitted here on 12/08/24 after a hospitalization at [facility] for a right carotid dissection after a right carotid endarterectomy, performed on 11/22/2024. Resulting in left-sided hemiplegia and dysphagia. A PEG was placed and she was NPO for several months. Since here at [facility]: Renita was started on trazadone for sleep after psych consult on 12/27. She has been working with rehab, but remains min to mod assist for all mobility due to her left sided flaccidity sp stroke. She was seen on 02/15 for a left 4th toe partially avulsed toenail. Thrush was treated and now resolved. She was transitioned to full regular diet and gtube feeds stopped. Since she is not gaining weight but just maintaining. She is followed by supervisor drilling and shooting and has supplements. She may have g tube removed after 2-3 months of stable weight. It has been approximately 1.5 months since gtube feeds started. She has worked with speech and now slurr is barely noticable and speech clear to be understood. She has been working with rehab, still with left sided weakness able to move her left leg minimally if at all and no movement of her left arm and hand. She reports feeling and some sensation to both left extremities. In general, She continues working with ELECTROMATIC TYPIST, making good progress, remains on regular diet with thin liquids, georges. well, maintaining weights so far. Taking pills whole She was started on flonase and robitussin for occ cough with effect. She On exam, She is smiling and no concerns. Lungs CTA. She continues with left sided weakness. She is planning on d/c to a new 1st floor [facility] with TEACHING PASTOR care on 04/01. Her mother and daughter live nearby to [facility]. She is looking forward to going home. Jessica Taylor, BRITTANEY [address] [facility], [address], [place], [address], [facility] [employer] 03/16/2025 10:22:54 03/24/2025 text/html Pt is seen for an acute rounding visit. Her PMH includes HTN, hx of carotid artery stenosis s/p right carotid dissection with left hemiplegia, CHF, GERD, bipolar dz, COPD, HLD, and anemia. On exam, Renita is motoring around in w/c. Overall, she reports doing okay. She reports dizziness at times with movement which is not new but intermittently recurrently with and without room spinning at times with position changes. She believes meclizine has been helpful in past. She reports having this before but now more noticeable. BP 120/70 and pulse 83. No sob, nausea, vomiting, pain, or other symptoms today. She reports increasing her water intake. Labs reviewed from 03/23 and stable. She is a 54 yo woman admitted here on 12/08/24 after a hospitalization at [facility] for a right carotid dissection after a right carotid endarterectomy, performed on 11/22/2024. Resulting in left-sided hemiplegia and dysphagia. A PEG was placed and she was NPO for several months. She has reached 100 days of therapy and no longer working with rehab, still with left sided weakness able to move her left leg minimally if at all and no movement of her left arm and hand. She reports feeling and some sensation to both left extremities at times. Plan: She is planning on d/c to a new 1st floor apt with TEACHING PASTOR care on 04/01. Scripts for DME have been provided and working on set up of her new place. Her mother and daughter live nearby to [facility]. She is looking forward to going home at that time. Jessica Taylor NP [address] [facility], [address], [place], [address], [employer] [facility] 03/24/2025 10:13:17 03/29/2025 text/html Renita is seen today for an acute visit. She was seen by the Psych Provider yesterday, and it has been recommended to increase HS trazodone to 150 mg q hs to help with sleep. Above discussed with Renita, and she admits she could be sleeping better and is very agreeable to trying a higher dose of trazodone to help with sleep. She says she feels ok otherwise.VSSNo concerns per nsg. MARY SHARP NP [address] [facility], [address], [place], [address], [employer] 03/29/2025 11:51:06 04/06/2025 text/html Renita is seen today for a discharge rounding visit. Her PMH includes HTN, hx of carotid artery stenosis s/p right carotid dissection with left hemiplegia, CHF, GERD, bipolar dz, COPD, HLD, and anemia. Labs last reviewed from 03/23 and stable. She is a 54 yo woman admitted here on 12/08/24 after a hospitalization at [facility] for a right carotid dissection after a right carotid endarterectomy, performed on 11/22/2024. Resulting in left-sided hemiplegia and dysphagia. A PEG was placed and she was NPO for several months. Since here at [facility] she is currently off g tube feedings. She has been maintaining her weight since here off feedings and tolerating diet fully. She may look into having her g tube removed after have a stable weight for a few months sometime in April. Her weight has maintained between 146-148 lbs here while off g tube feeds. She has reached 100 days of therapy and no longer working with rehab, still with left sided weakness able to move her left leg minimally if at all and no movement of her left arm and hand. She reports feeling and some sensation to both left extremities at times. She was seen by psych and started on trazadone for sleep. Plan: She is planning on d/c to a new 1st floor [facility] with TEACHING PASTOR care. Scripts for DME have been provided and set up of her new place. Her mother and daughter live nearby to [facility]. She is looking forward to going home at that time. Scripts sent to [facility] per request. Spent greater than 60 minutes on discharge and corrdination etc... On exam, Renita is smiling and happy to go home later today. airfield services officer is checking to make sure her equipment is at her place. No distress or complaints and remains with mild cough at times, seems to be allergy related. Jessica Taylor, BRITTANEY [address] [facility], [facility], [address], [place], [address], [facility] - [employer] 04/06/2025 11:45:18 OBGyn Episode No OBEpisode recorded.
--- OUTSIDE RECORDS SUMMARY | 2025-07-26 15:47 | XMS_ITS | Encounter Summary ---
Author Organization [facility] Address [address] [place] [address] Care Team Providers Care Licensing Analyst Name Role Phone Tara Paniagua RN Primary Care Provider [phone] Encounter Details Date Type Department Care Team (Late Contact Info) Description 02/08/2025 Lab Requisition [facility] - Main Lab [address] [place] [address] Benjamin Kim MD 38 [facility] [address] [place], [address] Heart failure, unspecified (CMS/HCC V24, CMS/HCC [...] Info) Description 08/11/2025 10:00 AM EDT Evaluation [facility] 175 [facility] [address] [place] [address] Trent Griffin, PT documented as of this encounter Procedures Procedure Name Priority Date/Time Associated Diagnosis Comments COMPLETE BLOOD COUNT Routine 02/09/2025 7:58 AM EDT Heart failure, unspecified ([facility] V24, [facility] V28) BASIC METABOLIC PANEL Routine 02/09/2025 7:58 AM EDT Heart failure, unspecified ([facility] V24, [facility] V28) documented in this encounter Results * Basic metabolic panel (02/09/2025 7:58 AM EDT) Sodium 139 133 - 145 mmol/L LAB CHEMISTRY METHOD 02/09/2025 12:40 PM [facility] Potassium 3.8 3.5 - 5.5 mmol/L LAB CHEMISTRY METHOD 02/09/2025 12:40 PM [facility] Chloride 104 96 - 110 mmol/L LAB CHEMISTRY METHOD 02/09/2025 12:40 PM [facility] CO2 28 21 - 32 mmol/L LAB CHEMISTRY METHOD 02/09/2025 12:40 PM [facility] Anion Gap 7 3 - 11 LAB CHEMISTRY METHOD 02/09/2025 12:40 PM [facility] Glucose 93 70 - 100 mg/dL LAB CHEMISTRY METHOD 02/09/2025 12:40 PM [facility] BUN 17 5 - 25 mg/dL LAB CHEMISTRY METHOD 02/09/2025 12:40 PM [facility] Creatinine 0.54 0.50 - 1.10 mg/dL LAB CHEMISTRY METHOD 02/09/2025 12:40 PM [facility] eGFR 111 >=60 mL/min/1. 73m2 LAB CHEMISTRY METHOD 02/09/2025 12:40 PM [facility] Comment:Calculation based on the Chronic Kidney Disease Epidemiology Collaboration (CKD-EPI) equation refit without adjustment for race. BUN/Creatinine Ratio 31.5 LAB CHEMISTRY METHOD 02/09/2025 12:40 PM [facility] Calcium 9.6 8.5 - 10.5 mg/dL LAB CHEMISTRY METHOD 02/09/2025 12:40 PM EDT [facility] Blood Venous blood specimen / Unknown Venipuncture / Unknown 02/09/2025 7:58 AM EDT 02/09/2025 11:12 AM EDT us Benjamin Kim MD LAB BLOOD ORDERABLES Final Resul t [facility] [address] [place] [address], * (ABNORMAL) Complete blood count (02/09/2025 7:58 AM EDT) WBC 5.9 4.8 - 10.8 K/mcL LAB HEMETOLOGY METHOD 02/09/2025 11:27 AM [facility] RBC 3.80 3.80 - 4.80 M/mcL LAB HEMETOLOGY METHOD 02/09/2025 11:27 AM [facility] Hemoglobin 10.9(L) 11.5 - 16.0 g/dL LAB HEMETOLOGY METHOD 02/09/2025 11:27 AM [facility] Hematocrit 34.0(L) 35.0 - 47.0 % LAB HEMETOLOGY METHOD 02/09/2025 11:27 AM [facility] MCV 88.5 79.0 - 98.0 FL LAB HEMETOLOGY METHOD 02/09/2025 11:27 AM [facility] MCH 28.4 27.0 - 32.0 pcg LAB HEMETOLOGY METHOD 02/09/2025 11:27 AM [facility] MCHC 32.1 32.0 - 37.0 g/dL LAB HEMETOLOGY METHOD 02/09/2025 11:27 AM [facility] RDW 13.6 11.0 - 15.0 % LAB HEMETOLOGY METHOD 02/09/2025 11:27 AM EDT [facility] Platelets 299 130 - 400 K/mcL LAB HEMETOLOGY METHOD 02/09/2025 11:27 AM EDT [facility] MPV 9.9 7.0 - 11.0 FL LAB HEMETOLOGY METHOD 02/09/2025 11:27 AM EDT [facility] NRBC 0.0 <1.0 % LAB HEMETOLOGY METHOD 02/09/2025 11:27 AM EDT [facility] NRBC Absolute 0.00 <0.10 K/mcL LAB HEMETOLOGY METHOD 02/09/2025 11:27 AM EDT [facility] Blood Venous blood specimen / Unknown Venipuncture / Unknown 02/09/2025 7:58 AM EDT 02/09/2025 11:12 AM EDT us Benjamin Kim MD LAB BLOOD ORDERABLES Final Resul t [facility] [address] [place] [address], documented in this encounter Visit Diagnoses Diagnosis Heart failure, unspecified (CMS/HCC V24, CMS/HCC V28) Heart failure, unspecified documented in this encounter Care Teams Licensing Analyst Relationship Specialty Start Date End Date Tara Paniagua RN [address] [place] [phone] PCP - General 07/24/22 documented as of this encounter
--- OUTSIDE RECORDS SUMMARY | 2025-07-26 15:47 | XMS_ITS | Encounter Summary ---
Author Organization [employer] Address 75 [facility] 7t [place] [address] Care Team Providers Care Sediment Remediation Consultant Name Role Phone Hilda Butt MD Primary Care Provider Reason for Visit * Reason Comments Med Refill Encounter Details Date Type Department Care Team ([facility] st Contact Info) Description 06/30/2024 Refill [facility] MEDICINE [address] [place], [place] [phone] Hilda Butt MD 230 [place], [place] [phone] Lower extremity edema Social History Tobacco Use [...] Date End Date Hilda Butt MD 230 [place] [address] PCP - General Family Medicine 06/20/22 Wilfrido 04/08/25 documented as of this encounter
--- OUTSIDE RECORDS SUMMARY | 2025-07-26 15:47 | XMS_ITS | Encounter Summary ---
Author Organization [employer] Address 75 [facility] 7t [place] [address] Care Team Providers Care Quill Reamer Name Role Phone Hilda Butt MD Primary Care Provider [phone] Reason for Visit * Reason Onset Date Comments Med Refill 12/03/2023 Encounter Details Date Type Department Care Team ([facility] st Contact Info) Description 12/03/2023 Refill [facility] MEDICINE [address] [place], [place] [phone] Hilda Butt MD 230 [place], [place] [phone] Low back pain at multiple sites Social [...] documented as of this encounter Care Teams Quill Reamer Relationship Specialty Start Date End Date Hilda Butt MD [address] [place] [address] PCP - General Family Medicine 06/20/22 Stareashelly 04/08/25 documented as of this encounter
--- OUTSIDE RECORDS SUMMARY | 2025-07-26 15:47 | XMS_ITS | Encounter Summary ---
Author Organization [employer] Address 75 [facility] 7t [place] [address] Care Team Providers Care Ops Analyst Name Role Phone Hilda Butt MD Primary Care Provider [phone] Reason for Visit * Reason Comments Med Refill Encounter Details Date Type Department Care Team ([facility] st Contact Info) Description 07/06/2025 Refill [facility] MEDICINE 230 [place], [place] [phone] Hilda Butt MD 230 [place], [place] [phone] Social History Tobacco Use Types Packs/Day Years [...] documented as of this encounter Care Teams Ops Analyst Relationship Specialty Start Date End Date Hilda Butt MD 230 [place] [address] PCP - General Family Medicine 06/20/22 Stareashelly 04/08/25 documented as of this encounter
--- OUTSIDE RECORDS SUMMARY | 2025-07-26 15:47 | XMS_ITS | Encounter Summary ---
Author Organization [employer] Address 75 [facility] 7t [place] [address] Care Team Providers Care Maintenance Chief Name Role Phone Hilda Butt MD Primary Care Provider [phone] Encounter Details Date Type Department Care Team ([facility] st Contact Info) Description 11/20/2023 Abstract [facility] MEDICINE 230 [place], [place] [phone] Hilda Butt MD 230 [place], [place] [phone] Social History Tobacco Use Types Packs/Day Years [...] documented as of this encounter Care Teams Maintenance Chief Relationship Specialty Start Date End Date Hilda Butt MD 230 [place] [address] PCP - General Family Medicine 06/20/22 Stareashelly 04/08/25 documented as of this encounter
--- OUTSIDE RECORDS SUMMARY | 2025-07-26 15:47 | XMS_ITS | Encounter Summary ---
Author Organization [employer] Address 75 [facility] 7t [place] [address] Care Team Providers Care Laboratory Analyst Name Role Phone Hilda Butt MD Primary Care Provider Reason for Visit * Reason Comments Med Refill Encounter Details Date Type Department Care Team ([facility] st Contact Info) Description 06/29/2024 Refill [facility] MEDICINE 230 [place], [place] [phone] Hilda Butt MD 230 [place], [place] [phone] Lower extremity edema Social History Tobacco Use [...] documented as of this encounter Care Teams Laboratory Analyst Relationship Specialty Start Date End Date Hilda Butt MD 230 [place] [address] PCP - General Family Medicine 06/20/22 Wilfrido 04/08/25 documented as of this encounter
--- OUTSIDE RECORDS SUMMARY | 2025-07-26 15:47 | XMS_ITS | Encounter Summary ---
Author Organization [employer] Address 75 [facility] 7t [place] [address] Care Team Providers Care Utilization Management Manager Name Role Phone Hilda Butt MD Primary Care Provider [phone] Reason for Visit * Reason Comments Med Refill Encounter Details Date Type Department Care Team ([facility] st Contact Info) Description 04/15/2025 Refill [facility] MEDICINE 230 [place], [place] [phone] Hilda Butt MD 230 [place], [place] [phone] Recurrent acute serous otitis media of right [...] documented as of this encounter Care Teams Utilization Management Manager Relationship Specialty Start Date End Date Hilda Butt MD [address] [place] [address] PCP - General Family Medicine 06/20/22 Aveashelly 04/08/25 documented as of this encounter
--- OUTSIDE RECORDS SUMMARY | 2025-07-26 15:47 | XMS_ITS | Encounter Summary ---
Author Organization [employer] Address 75 [facility] 7t [place] [address] Care Team Providers Care Dog Breeder Name Role Phone Hilda Butt MD Primary Care Provider [phone] Reason for Visit * Reason Onset Date Comments Med Refill 06/24/2024 Encounter Details Date Type Department Care Team ([facility] st Contact Info) Description 06/24/2024 Refill [facility] MEDICINE 230 [place], [place] [phone] Hilda Butt MD 230 [place], [place] [phone] Social History Tobacco Use Types Packs/Day Years [...] documented as of this encounter Care Teams Dog Breeder Relationship Specialty Start Date End Date Hilda Butt MD 230 [place] [address] PCP - General Family Medicine 06/20/22 Wilfrido 04/08/25 documented as of this encounter
--- OUTSIDE RECORDS SUMMARY | 2025-07-26 15:47 | XMS_ITS | Encounter Summary ---
Author Organization [employer] Address 75 [facility] 7t [place] [address] Care Team Providers Care Inspector Integrated Circuits Name Role Phone Hilda Butt MD Primary Care Provider [phone] Encounter Details Date Type Department Care Team ([facility] st Contact Info) Description 08/19/2023 Abstract [facility] MEDICINE 230 [place], [place] [phone] Hilda Butt MD [address] [place], [place] [phone] Social History Tobacco Use Types Packs/Day Years [...] t he electric, gas, oil or water [employer] threatened to shut off services in your [...] as of this encounter Care Teams Inspector Integrated Circuits Relationship Specialty Start Date End Date Hilda Butt MD [address] [place] [address] PCP - General Family Medicine 06/20/22 Stareashelly 04/08/25 documented as of this encounter
--- OUTSIDE RECORDS SUMMARY | 2025-07-26 15:47 | XMS_ITS | Encounter Summary ---
Author Organization [employer] Address 75 [facility] 7t [place] [address] Care Team Providers Care Boardmarker Name Role Phone Hilda Butt MD Primary Care Provider [phone] Encounter Details Date Type Department Care Team ([facility] st Contact Info) Description 10/15/2022 Orders Only [facility] MED & PEDS [address] [place], [place] [phone] Apple Stringer LPN Social History Tobacco Use [...] on filedocumented in this encounter Care Teams Boardmarker Relationship Specialty Start Date End Date Hilda Butt MD [address] [place] [address] PCP - General Family Medicine 06/20/22 Aveanna 04/08/25 documented as of this encounter
--- OUTSIDE RECORDS SUMMARY | 2025-07-26 15:47 | XMS_ITS | Encounter Summary ---
Author Organization [employer] Address 75 [facility] 7t [place] [address] Care Team Providers Care Parimutuel Ticket Checker Name Role Phone Hilda Butt MD Primary Care Provider [phone] Reason for Visit * Reason Comments Med Refill Encounter Details Date Type Department Care Team ([facility] st Contact Info) Description 11/22/2024 Refill [facility] MEDICINE 230 [place], [place] [phone] Hilda Butt MD 230 [place], [place] [phone] Social History Tobacco Use Types Packs/Day Years [...] documented as of this encounter Care Teams Parimutuel Ticket Checker Relationship Specialty Start Date End Date Hilda Butt MD 230 [place] [address] PCP - General Family Medicine 06/20/22 Stareashelly 04/08/25 documented as of this encounter
--- OUTSIDE RECORDS SUMMARY | 2025-07-26 15:47 | XMS_ITS | Encounter Summary ---
Author Organization [employer] Address 75 [facility] 7t [place] [address] Care Team Providers Care Women'S Lacrosse Coach Name Role Phone Hilda Butt MD Primary Care Provider [phone] Reason for Visit * Reason Onset Date Comments Medication Question 11/19/2022 Encounter Details Date Type Department Care Team ([facility] Contact Info) Description 11/19/2022 Telephone [facility] MEDICINE 230 [place], [place] [phone] Hilda Butt MD 230 [place], [place] [phone] Medication Question Social History Tobacco Use Types [...] regarding nebulizer medication Please contact Marina at [phone] documented in this encounter Plan of Treatment Not on file documented as of this encounter Visit Diagnoses Not on filedocumented in this encounter Care Teams Women'S Lacrosse Coach Relationship Specialty Start Date End Date Hilda Butt MD [address] [place] [address] PCP - General Family Medicine 06/20/22 Stareashelly 04/08/25 documented as of this encounter
--- OUTSIDE RECORDS SUMMARY | 2025-07-26 15:47 | XMS_ITS | Encounter Summary ---
Author Organization [employer] Address 75 [facility] 7t [place] [address] Care Team Providers Care Commodity Merchant Name Role Phone Hilda Butt MD Primary Care Provider [phone] Encounter Details Date Type Department Care Team ([facility] st Contact Info) Description 08/19/2023 Abstract [facility] MEDICINE 230 [place], [place] [phone] Hilda Butt MD 230 [place], [place] [phone] Social History Tobacco Use Types Packs/Day Years [...] t he electric, gas, oil or water [employer] threatened to shut off services in your [...] documented as of this encounter Care Teams Commodity Merchant Relationship Specialty Start Date End Date Hilda Butt MD [address] [place] [address] PCP - General Family Medicine 06/20/22 Stareashelly 04/08/25 documented as of this encounter
--- OUTSIDE RECORDS SUMMARY | 2025-07-26 15:47 | XMS_ITS | Encounter Summary ---
Author Organization [employer] Address 75 [facility] 7t [place] [address] Care Team Providers Care Supervisor Sandblaster Name Role Phone Hilda Butt MD Primary Care Provider [phone] Encounter Details Date Type Department Care Team ([facility] st Contact Info) Description 10/31/2022 Orders Only [facility] MEDICINE 230 [place], [place] [phone] Hilda Butt MD 230 [place], [place] [phone] Blurry vision (Primary Dx) Social History Tobacco [...] disturbances documented in this encounter Care Teams Supervisor Sandblaster Relationship Specialty Start Date End Date Hilda Butt MD 230 [place], [place] [phone] PCP - General Family Medicine 06/20/22 Aveanna 04/08/25 documented as of this encounter
--- OUTSIDE RECORDS SUMMARY | 2025-07-26 15:47 | XMS_ITS | Encounter Summary ---
Author Organization [employer] Address 75 [facility] 7t [place] [address] Care Team Providers Care Assistant Counsel Name Role Phone Hilda Butt MD Primary Care Provider Reason for Visit * Reason Onset Date Comments Med Refill 12/03/2023 Encounter Details Date Type Department Care Team ([facility] st Contact Info) Description 12/03/2023 Refill [facility] MEDICINE 230 [place], [place] [phone] Hilda Butt MD 230 [place], [place] [phone] Social History Tobacco Use Types Packs/Day Years [...] as of this encounter Care Teams Assistant Counsel Relationship Specialty Start Date End Date Hilda Butt MD [address] [place] [address] PCP - General Family Medicine 06/20/22 Aveanna 04/08/25 documented as of this encounter
--- OUTSIDE RECORDS SUMMARY | 2025-07-26 15:47 | XMS_ITS | Encounter Summary ---
Author Organization [employer] Address [address] [facility] 7t [place] [address] Care Team Providers Care Firmware Software Verification Engineer Name Role Phone Hilda Butt MD Primary Care Provider [phone] Reason for Visit * Reason Comments Med Refill Encounter Details Date Type Department Care Team ([facility] st Contact Info) Description 07/28/2024 Refill 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 MEDICINE 230 [place], [place] [phone] Hilda Butt MD 230 [place], [place] [phone] Social History Tobacco Use Types Packs/Day Years [...] documented as of this encounter Care Teams Firmware Software Verification Engineer Relationship Specialty Start Date End Date Hilda Butt MD [address] [place] [address] PCP - General Family Medicine 06/20/22 Wilfrido 04/08/25 documented as of this encounter
--- OUTSIDE RECORDS SUMMARY | 2025-07-26 15:47 | XMS_ITS | Encounter Summary ---
Author Organization [employer] Address 75 [facility] 7t [place] [address] Care Team Providers Care Therapist Phys Name Role Phone Hilda Butt MD Primary Care Provider [phone] Encounter Details Date Type Department Care Team ([facility] st Contact Info) Description 10/30/[address] [facility] MEDICINE 230 [place], [place] [phone] Janine Mccarthy, RN [address] [place], [place] [phone] Social History Tobacco Use Types Packs/Day Years [...] documented as of this encounter Care Teams Therapist Phys Relationship Specialty Start Date End Date Hilda Butt MD [address] [place] [address] PCP - General Family Medicine 06/20/22 Stareashelly 04/08/25 documented as of this encounter
--- OUTSIDE RECORDS SUMMARY | 2025-07-26 15:47 | XMS_ITS | Encounter Summary ---
Author Organization [employer] Address 75 [facility] 7t [place] [address] Care Team Providers Care Floating Derrick Operator Name Role Phone Hilda Butt MD Primary Care Provider Reason for Visit * Reason Comments Med Refill Encounter Details Date Type Department Care Team ([facility] st Contact Info) Description 07/20/[address] [facility] MEDICINE 230 [place], [place] [phone] Hilda Butt MD 230 [place], [place] [phone] Social History Tobacco Use Types Packs/Day Years [...] documented as of this encounter Care Teams Floating Derrick Operator Relationship Specialty Start Date End Date Hilda Butt MD 230 [place] [address] PCP - General Family Medicine 06/20/22 Stareashelly 04/08/25 documented as of this encounter
--- OUTSIDE RECORDS SUMMARY | 2025-07-26 15:47 | XMS_ITS | Encounter Summary ---
Author Organization [employer] Address 75 [facility] 7t [place] [address] Care Team Providers Care Tanning Consultant Name Role Phone Hilda Butt MD Primary Care Provider [phone] Reason for Visit * Reason Onset Date Comments Med Life Line 08/06/2023 Encounter Details Date Type Department Care Team ([facility] Contact Info) Description 08/06/2023 Telephone [facility] MEDICINE 230 [place], [place] [phone] Hilda Butt MD 230 [place], [place] [phone] Med Life Line Social History Tobacco Use [...] PATIENT TODAY WILL SEND RX TO [facility]PER[facility]. [facility] DOES NOT ACCEPT [facility]. * Telephone Encounter - Ashley Sutton - 08/06/2023 1:10 PM EDT Tc from pt requesting status on paperwork for Med Life line machine due to her medical conditions. Task on 07/31/2023 Please contact pt at [phone] Kazakh Speaker documented in this encounter Plan of Treatment Not on file documented as of this encounter Visit Diagnoses Not on filedocumented in this encounter Additional Health Concerns Assessment Noted Time PHQ-9 Depression Total Score: 6 06/12/20 23 9:18 AM EDT documented as of this encounter Care Teams Tanning Consultant Relationship Specialty Start Date End Date Hilda Butt MD [address] [place] [address] PCP - General Family Medicine 06/20/22 Wilfrido 04/08/25 documented as of this encounter
--- OUTSIDE RECORDS SUMMARY | 2025-07-26 15:48 | XMS_ITS | Encounter Summary ---
Author Organization [employer] Address 75 [facility] 7t [place] [address] Care Team Providers Care Applied Behavior Science Specialist Name Role Phone Hilda Butt MD Primary Care Provider [phone] Reason for Visit * Reason Onset Date Comments Med Refill 10/16/2023 Encounter Details Date Type Department Care Team ([facility] Contact Info) Description 10/16/2023 Refill [facility] 230 [place], [place] [phone] Anum Fox FNP Recurrent acute serous otitis [...] documented as of this encounter Care Teams Applied Behavior Science Specialist Relationship Specialty Start Date End Date Hilda Butt MD [address] [place] [address] PCP - General Family Medicine 06/20/22 Wilfrido 04/08/25 documented as of this encounter
--- OUTSIDE RECORDS SUMMARY | 2025-07-26 15:48 | XMS_ITS | Encounter Summary ---
Author Organization [employer] Address [address] [facility] 7t [place] [address] Care Team Providers Care Powerhouse Attendant Name Role Phone Hilda Butt MD Primary Care Provider [phone] Reason for Visit * Reason Comments Med Refill Encounter Details Date Type Department Care Team ([facility] st Contact Info) Description 2024 Refill [facility] MEDICINE 230 [place], [place] [phone] Hilda Butt MD 230 [place], [place] [phone] Social History Tobacco Use Types Packs/Day Years [...] documented as of this encounter Care Teams Powerhouse Attendant Relationship Specialty Start Date End Date Hilda Butt MD [address] [place] [address] PCP - General Family Medicine 06/20/22 Wilfrido 04/08/25 documented as of this encounter
--- OUTSIDE RECORDS SUMMARY | 2025-07-26 15:48 | XMS_ITS | Encounter Summary ---
Author Organization [employer] Address 75 [facility] 7[address] [place] [address] Care Team Providers Care Jewelry Racker Name Role Phone Hilda Butt MD Primary Care Provider [phone] Encounter Details Date Type Department Care Team ([facility] st Contact Info) Description 07/02/2024 Orders Only [facility] MEDICINE 230 [place], [place] [phone] Hilda Butt MD 230 [place], [place] [phone] Subacute cough (Primary Dx) Social History Tobacco [...] documented as of this encounter Care Teams Jewelry Racker Relationship Specialty Start Date End Date Hilda Butt MD [address] [place] [address] PCP - General Family Medicine 06/20/22 Wilfrido 04/08/25 documented as of this encounter
--- OUTSIDE RECORDS SUMMARY | 2025-07-26 15:48 | XMS_ITS | Encounter Summary ---
Author Organization [employer] Address [address] [facility] 7t [place] [address] Care Team Providers Care Ship'S Pilot Name Role Phone Hilda Butt MD Primary Care Provider [phone] Reason for Visit * Reason Onset Date Comments Med Refill 10/16/2023 Encounter Details Date Type Department Care Team ([facility] Contact Info) Description 10/16/2023 Refill [facility] [address] [place], [place] [phone] Hilda Butt MD [address] [place] [address] Social History Tobacco Use Types Packs/Day Years [...] documented as of this encounter Care Teams Ship'S Pilot Relationship Specialty Start Date End Date Hilda Butt MD [address] [place] [address] PCP - General Family Medicine 06/20/22 Stareashelly 04/08/25 documented as of this encounter
== END 2025-07-26 14:24 | disposition home or self-care (01) ==
LOC: HO.MAMMO 14:23
PROVIDERS: Absent Provider Surgery; PCP General Practice; Visit Provider General Practice
DX: R92.1 Mammographic calcification found on diagnostic imaging of breast (principal); Z85.3 Personal history of malignant neoplasm of breast
CPT/HCPCS: 77062; 77066

== ENCOUNTER → 2025-07-26 14:30 | Outpatient (BNV) | payer OTHER, SELFPAY | PROVIDERS: Absent Provider Surgery; PCP General Practice; Visit Provider Radiology Body Imaging | DX: R92.8 Other abnormal and inconclusive findings on diagnostic imaging of breast (principal) | CPT/HCPCS: 77066; G0279 ==

== ENCOUNTER 2025-08-01 13:51 | Outpatient (AMB) | payer OTHER, SELFPAY ==
[2025-08-01 14:09] VITALS: BP 124/62; PULSE 75
--- NOTE | 2025-08-01 14:09 | A.OFFVIS_ITS ---
Vital Signs 08/01/25 14:09 Height 4 ft 11 in BMI Reason not done Patient refused/unable BP 124/62 Blood Pressure Location Rt brachial Position Sitting Pulse 75 Pulse Source Pulse Oximeter Intake Visit Reasons: 3m follow up w device ck Allergies lisinopril Allergy (Verified 01/04/25 13:02) Cough ham Allergy (Uncoded 01/04/25 13:02) hives Medication List - Last Reconciled 08/01/25 by Jonah Darling MD albuterol sulfate 90 mcg/actuation (Ventolin HFA) 2 inhalations inhalation Q6H PRN ascorbic acid (vitamin C) 250 mg PO DAILY aspirin 81 mg PO DAILY atorvastatin 80 mg PO DAILY cholecalciferol (vitamin D3) (Vitamin D3) 50 mcg PO DAILY gabapentin mg PO metoprolol tartrate 25 mg PO DAILY montelukast 10 mg PO BEDTIME pantoprazole 40 mg PO DAILY@0630 sacubitril-valsartan 24-26 mg (Entresto) 1 tab PO BID sertraline 50 mg PO DAILY spironolactone 25 mg PO DAILY trazodone 100 mg PO BEDTIME HPI Comments Details: Renita returns for follow-up regarding cardiomyopathy as well as left bundle- branch block. She has a history of vertebral artery dissection in 2022 and treated at [facility]. She was on anticoagulation then but then stopped. In 2023, she was diagnosed with severe carotid stenosis and that led to right carotid endarterectomy. However, that was complicated by a stroke. She had a prolonged recovery but it seems she has actually gotten much better since then. However, still has a left-sided weakness. She comes in a wheelchair. Overall, she states she feels well. No cardiac questions or concerns. She states she is having lot of cough and she believes it is because of the Entresto. She has not taken that for the last 4 weeks or so but the cough is still the same. Hence most likely not related to Entresto and could be just something pulmonary in nature. [facility] Medical History Acute hypernatremia Laryngeal edema Stroke Dissection of right carotid artery Dysphagia Hx of radiation therapy Habitual snoring Cough On beta yamini at home Pacemaker Cardiac resynchronization therapy defibrillator (OPERATIONS ACCOUNTANT-D) in place (~06/2023) LBBB (left bundle branch block) NICM (nonischemic cardiomyopathy) Invasive ductal carcinoma of left breast (~02/2022) Anemia COPD (chronic obstructive pulmonary disease) Hypercholesteremia Bipolar 1 disorder Hypertension Surgical History History of cardiac defibrillator placement (~2022) History of cardiac cath (~2021) History of foot surgery (~2006) History of left breast biopsy (~2021) History of lumpectomy of left breast (~2021) History of hysterectomy (~2021) Family History Maternal Aunt Lupus Mother Breast cancer Social History Household Members: None Housing: Apartment Are you a primary residential child care counselor to a significant other at home: No Do you presently have visiting nurse or other home services: No Alcohol intake: never Patient Tobacco Use Status: Former Tobacco user Tobacco use type: Cigarette service: No 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al status: disabled 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 Female Reproductive History Menstrual Age of Menarche: 12 Review of Systems Const Denies weakness ENT Denies dizziness Card Denies chest pain, Denies chest pain with activity, Denies syncope, Denies rapid heart rate, Denies pedal edema, Denies edema, Denies leg edema, Denies lightheadedness, Denies palpitations, Denies dyspnea, Denies dyspnea on exertion and Denies orthopnea Resp Denies cough, Denies dyspnea and Denies dyspnea on exertion GI Denies hematochezia and Denies change in stool character Musc Denies abnormal gait, Denies muscle cramps, Denies muscle weakness, Denies numbness, Denies radiating pain into limb and Denies tingling Neuro Denies abnormal gait, Denies dizziness, Denies syncope, Denies numbness, Denies tingling and Denies weakness Endo Denies palpitations Physical Exam Vital Signs: Last Vital Signs Pulse 75 08/01/25 14:09 BP 124/62 08/01/25 14:09 Const General: comfortable and no acute distress Orientation/consciousness: patient oriented x3 HEENT Other: Unremarkable Head: Yes normal to inspection Neck Neck: Yes normal visual inspection Chest Chest palpation & inspection: normal inspection of the chest Resp Auscultation: clear to auscultation bilaterally Cardio Palpation: normal PMI Heart sounds: S1 normal heart sound present, S2 normal heart sound present, no gallops, no murmurs and no rubs GI Palpation (GI): Soft to palpation Back/Spine/Pelvis Other: unremarkable Skin General skin exam: no rashes or lesions noted Neuro General: patient oriented x3 Extrem General: Yes normal to inspection Psych Mental Status: mental status grossly normal Office Procedures Cardiac Device Check Cardiac Device Check Details: ICD interrogated today. Biventricular device. Battery status 6 years. Normal lead parameters. Atrial pacing 22%. Biventricular pacing 99%. Brief SVT episodes but no significant arrhythmias otherwise. Normal device function. 81861-UX Cardiac Device Check, multi lead implantable defibrillator Procedure code (CPT) selection complete Assessment & Plan Assessment & Plan (1) NICM (nonischemic cardiomyopathy): Code(s): I42.8 - Other cardiomyopathies Category: Medical (2) LBBB (left bundle branch block): Code(s): I44.7 - Left bundle-branch block, unspecified Category: Medical (3) Cardiac resynchronization therapy defibrillator (OPERATIONS ACCOUNTANT-D) in place: Onset Date: ~06/2023 Code(s): Z95.810 - Presence of automatic (implantable) cardiac defibrillator Category: Medical Plan In the last echocardiogram, LVEF is 30-35%. Previously, in a similar range. In 2017, about 45-50%. Cardiac catheterization shows normal coronary arteries. Overall, nonischemic cardiomyopathy related to left bundle-branch block. In the past, cardiac BNP levels have been very much in the normal range, indicating a well compensated cardiac status. For medications, she used to be on metoprolol succinate but listed as Tartrate at this time. Ideally, should switch back to succinate. Will check with pharmacy. Otherwise, on Entresto, spironolactone. With regard to the cough, as she has not taken Entresto for a few weeks and it remains the same most likely not related to medication. Recommended that she go back on the medication and call Pulmonary for an appointment. Remote monitoring we will also need to be arranged as there are no recent transmissions. In the past, device settings were adjusted with lowering of VT detection zone. Discussion Notes I discussed with the patient that her persistent cough is unlikely related to the medication she stopped a month ago. I advised her to resume the medication as it is important for her health and to follow up with her lung specialist for further evaluation. Patient was informed and verbally consented to the use of an ambient scribe for clinic note documentation during this visit. Coding Level of Care Code Est Pt Level 4 (46598) Complex EM visit Add On G2211 Diagnoses NICM (nonischemic cardiomyopathy) I42.8 LBBB (left bundle branch block) I44.7 Cardiac resynchronization therapy defibrillator (OPERATIONS ACCOUNTANT-D) in place Z95.810 CPT Codes Cardiac Device Check - Cardiac Device 6: 93416-AA Cardiac Device Check, multi lead implantable defibrillator ([id number])
--- OUTSIDE RECORDS SUMMARY | 2025-08-01 16:17 | XMS_ITS | Encounter Summary ---
Author Organization [employer] Address [address] [facility] [address]t [place] [address] Care Team Providers Care Consulting Database Administrator Name Role Phone Hilda Butt MD Primary Care Provider [phone] Encounter Details Date Type Department Care Team ([facility] st Contact Info) Description 03/24/2024 Orders Only [facility] MEDICINE [address] [place], [place] [phone] Hilda Butt MD [address] [place], [place] [phone] Vertebral artery dissection (CMS/HCC) (Primary Dx) Social [...] documented as of this encounter Care Teams Consulting Database Administrator Relationship Specialty Start Date End Date Hilda Butt MD [address] [place] [address] PCP - General Family Medicine 06/20/22 Stareashelly 04/08/25 documented as of this encounter
--- OUTSIDE RECORDS SUMMARY | 2025-08-01 16:18 | XMS_ITS | Encounter Summary ---
Author Organization [employer] Address [address] [facility] 7[address] [place] [address] Care Team Providers Care Clothing Presser Name Role Phone Hilda Butt MD Primary Care Provider [phone] Reason for Visit * Reason Comments Med Refill Encounter Details Date Type Department Care Team ([facility] st Contact Info) Description 06/21/2025 Refill [facility] MEDICINE [address] [place], [place] [phone] Hilda Butt MD [address] [place], [place] [phone] Social History Tobacco Use Types Packs/Day Years [...] documented as of this encounter Care Teams Clothing Presser Relationship Specialty Start Date End Date Hilda Butt MD [address] [place] [address] PCP - General Family Medicine 06/20/22 Stareashelly 04/08/25 documented as of this encounter
--- OUTSIDE RECORDS SUMMARY | 2025-08-01 16:18 | XMS_ITS | Encounter Summary ---
Author Organization [employer] Address [address] [place] [address] 7t [place] [address] Care Team Providers Care Accredited Pharmacy Technician Name Role Phone Hilda Butt MD Primary Care Provider [phone] Reason for Referral * Imaging (Routine) - Closed Specialty Diagnoses / Procedures Referred By Tyeshaac t Referred To Contact Radiology Diagnoses Vertebral artery dissection Tinnitus of both ears Procedures CTA Neck w/ and w/o Contrast Hilda Butt MD [address] [place], [place] Phone: tel: fax: [address] Phone: tel: fax: Referral ID Status Reason Start Date Expiration Date Visits Re quested Visits Authorized [id number] Closed 03/08/2024 03/08/2025 1 1 * Imaging (Routine) - Closed Specialty Diagnoses / Procedures Referred By Contac t Referred To Contact Radiology Diagnoses Vertebral artery dissection Tinnitus of both ears Procedures CTA Head w/ and w/o Contrast Hilda Butt MD [address] [place] [address] Phone: tel: fax: [address] Phone: tel: fax: Referral ID Status Reason Start Date Expiration Date Visits Re quested Visits Authorized [id number] Closed 03/08/2024 03/08/2025 1 1 * Imaging (Routine) - Canceled Specialty Diagnoses / Procedures Referred By Contac t Referred To Contact Radiology Diagnoses Vertebral artery dissection Tinnitus of both ears Procedures CTA Head Neck w/ and w/o Contrast Hilda Butt MD [address] [place] [address] Phone: tel: fax: [address] Phone: tel: fax: Referral ID Status Reason Start Date Expiration Date V isits Requested Visits Authorized [id number] Canceled 03/05/2024 03/05/2025 1 1 Encounter Details Date Type Department Care Team (Late st Contact Info) Description 03/05/2024 Orders Only [facility] MEDICINE [address] [place], [place] [phone] Hilda Butt MD [address] [place], [place] [phone] Vertebral artery dissection (CMS/HCC) (Primary Dx); Tinnitus [...] 1:56 PM EDT Narrative 06/09/2024 10:[address] [address] [address] Scan Report Signed Patient: Renita Brandon MR#: [id number] 4 : 1970 Acct:[id number] Age/Sex: 53 / F ADM Date: 05/17/24 Loc: .CT Attending Dr: Hilda Butt MD Ordering Physician: Hilda Butt Date of Service: 05/17/24 Procedure(s): CT angio head neck Accession Number(s): [id number] cc: Hilda Butt EXAMINATION: CT ANGIOGRAM HEAD [...] aspect of the left vertebral artery with ampf-qm-ddfoyvoa luminal narrowing. Right Carotid: There is moderately [...] in OV> 06/09/24 0957 DD/ 1356 TD/TT: Print Journalist: Procedure Note Donotuseinterpreter, Image - 06/09/[address] [address] [address] Scan Report Signed Patient: Adin Brandon#: [id number] 4 : 1970Acct:[id number] Age/Sex: 53 / FADM Date: 05/17/24 Loc: HO.CT Attending Dr: Hilda Butt MD Ordering Physician: Hilda Butt Date of Service: 05/17/24 Procedure(s): CT angio head neck Accession Number(s): [id number] cc: Hilda Butt EXAMINATION: CT ANGIOGRAM HEAD [...] aspect of the left vertebral artery with bdie-aa-xznifzmm luminal narrowing. Right Carotid: There is moderately [...] in OV> 06/09/24 0957 DD/ 1356 TD/TT: Print Journalist: Hilda Butt MD IMG CT PROCEDURES Final Result documented in this encounter Visit Diagnoses Diagnosis Vertebral artery dissection- Primary Dissection of vertebral artery Tinnitus of both ears Unspecified tinnitus documented in this encounter Additional Health Concerns Assessment Noted Time PHQ-9 Depression Total Score: 0 11/17/19 24 10:34 AM EST documented as of this encounter Care Teams Accredited Pharmacy Technician Relationship Specialty Start Date End Date Hilda Butt MD [address] [place] [address] PCP - General Family Medicine 06/20/22 Aveanna 04/08/25 documented as of this encounter
--- OUTSIDE RECORDS SUMMARY | 2025-08-01 16:18 | XMS_ITS | Encounter Summary ---
Author Organization [employer] Address [address] [facility] [address] [place] [address] Care Team Providers Care Reed Man Name Role Phone Hilda Butt MD Primary Care Provider [phone] Reason for Visit * Reason Onset Date Comments Med Refill 03/11/2024 Encounter Details Date Type Department Care Team ([facility] st Contact Info) Description 03/11/2024 Refill [facility] MEDICINE [address] [place], [place] [phone] Hilda Butt MD [address] [place], [place] [phone] Social History Tobacco Use Types Packs/Day Years [...] documented as of this encounter Care Teams Reed Man Relationship Specialty Start Date End Date Hilda Butt MD [address] [place] [address] PCP - General Family Medicine 06/20/22 Wilfrido 04/08/25 documented as of this encounter
--- OUTSIDE RECORDS SUMMARY | 2025-08-01 16:18 | XMS_ITS | Encounter Summary ---
Author Organization [employer] Address [address] [facility] 7t [place] [address] Care Team Providers Care Petroleum Refinery Operator Name Role Phone Hilda Butt MD Primary Care Provider [phone] Reason for Visit * Reason Comments Med Refill Encounter Details Date Type Department Care Team ([facility] st Contact Info) Description 04/23/2023 Refill [facility] MEDICINE [address] [employer], [place] [phone] Shamar Stevens FNP Bipolar II disorder (CMS/HCC) [...] documented as of this encounter Care Teams Petroleum Refinery Operator Relationship Specialty Start Date End Date Hilda Butt MD [address] [place] [address] PCP - General Family Medicine 06/20/22 Aveanna 04/08/25 documented as of this encounter
--- OUTSIDE RECORDS SUMMARY | 2025-08-01 16:18 | XMS_ITS | Encounter Summary ---
Author Organization [employer] Address [address] [facility] [address] [place] [address] Care Team Providers Care Fur Glosser Name Role Phone Hilda Butt MD Primary Care Provider [phone] Reason for Visit * Reason Onset Date Comments Med Refill 02/25/2024 Encounter Details Date Type Department Care Team ([facility] st Contact Info) Description 02/25/2024 Refill [facility] MEDICINE [address] [place], [place] [phone] Hilda Butt MD [address] [place], [place] [phone] Itchy skin of anus and genitals; Recurrent [...] documented as of this encounter Care Teams Fur Glosser Relationship Specialty Start Date End Date Hilda Butt MD [address] [place] [address] PCP - General Family Medicine 06/20/22 Wilfrido 04/08/25 documented as of this encounter
--- OUTSIDE RECORDS SUMMARY | 2025-08-01 16:18 | XMS_ITS | Encounter Summary ---
Author Organization [employer] Address [address] [facility] 7t [place] [address] Care Team Providers Care Slate Roofer Helper Name Role Phone Hilda Butt MD Primary Care Provider [phone] Reason for Visit * Reason Onset Date Comments Med Refill 01/22/2024 Encounter Details Date Type Department Care Team ([facility] st Contact Info) Description 01/22/2024 Refill [facility] MEDICINE [address] [place], [place] [phone] Hilda Butt MD [address] [place], [place] [phone] Social History Tobacco Use Types Packs/Day Years [...] documented as of this encounter Care Teams Slate Roofer Helper Relationship Specialty Start Date End Date Hilda Butt MD [address] [place] [address] PCP - General Family Medicine 06/20/22 Aveanna 04/08/25 documented as of this encounter
--- OUTSIDE RECORDS SUMMARY | 2025-08-01 16:18 | XMS_ITS | Encounter Summary ---
Author Organization [employer] Address [address] [facility] [address]t [place] [address] Care Team Providers Care Market News Reporter Name Role Phone Hilda Butt MD Primary Care Provider [phone] Reason for Visit * Reason Comments Med Refill Encounter Details Date Type Department Care Team ([facility] st Contact Info) Description 11/16/2024 Refill [facility] MEDICINE [address] [place], [place] [phone] Hilda Butt MD [address] [place], [place] [phone] Vitamin D deficiency Social History Tobacco Use [...] documented as of this encounter Care Teams Market News Reporter Relationship Specialty Start Date End Date Hilda Butt MD [address] [place] [address] PCP - General Family Medicine 06/20/22 Wilfrido 04/08/25 documented as of this encounter
--- OUTSIDE RECORDS SUMMARY | 2025-08-01 16:18 | XMS_ITS | Encounter Summary ---
Author Organization [employer] Address [address] [facility] [address] [place] [address] Care Team Providers Care Carbon Paper Interleafer Name Role Phone Hilda Butt MD Primary Care Provider [phone] Reason for Visit * Reason Onset Date Comments Med Refill 02/25/2024 Encounter Details Date Type Department Care Team ([facility] st Contact Info) Description 02/25/2024 Refill [facility] MEDICINE [address] [place], [place] [phone] Hilda Butt MD [address] [place], [place] [phone] Dizziness Social History Tobacco Use Types Packs/Day [...] documented as of this encounter Care Teams Carbon Paper Interleafer Relationship Specialty Start Date End Date Hilda Butt MD [address] [place] [address] PCP - General Family Medicine 06/20/22 Wilfrido 04/08/25 documented as of this encounter
--- OUTSIDE RECORDS SUMMARY | 2025-08-01 16:18 | XMS_ITS | Encounter Summary ---
Author Organization [employer] Address [address] [facility] 7t [place] [address] Care Team Providers Care Undergraduate Advisor Name Role Phone Hilda Butt MD Primary Care Provider [phone] Reason for Visit * Reason Onset Date Comments Med Refill 03/11/2024 Encounter Details Date Type Department Care Team ([facility] Contact Info) Description 03/11/2024 Refill [facility] MED & PEDS [address] [place], [place] [phone] Hilda Butt MD [address] [place] [address] Itchy skin of anus and genitals; Recurrent [...] documented as of this encounter Care Teams Undergraduate Advisor Relationship Specialty Start Date End Date Hilda Butt MD [address] [place] [address] PCP - General Family Medicine 06/20/22 Stareashelly 04/08/25 documented as of this encounter
--- OUTSIDE RECORDS SUMMARY | 2025-08-01 16:18 | XMS_ITS | Encounter Summary ---
Author Organization [employer] Address [address] [facility] 7t [place] [address] Care Team Providers Care Corrective Therapy Aide Teacher Name Role Phone Hilda Butt MD Primary Care Provider [phone] Reason for Visit * Reason Comments Med Refill Encounter Details Date Type Department Care Team ([facility] st Contact Info) Description 08/01/2025 Refill [facility] MEDICINE [address] [place], [place] [phone] Hilda Butt MD [address] [place], [place] [phone] Vitamin D deficiency Social History Tobacco Use [...] documented as of this encounter Care Teams Corrective Therapy Aide Teacher Relationship Specialty Start Date End Date Hilda Butt MD [address] [place] [address] PCP - General Family Medicine 06/20/22 Wilfrido 04/08/25 documented as of this encounter
--- OUTSIDE RECORDS SUMMARY | 2025-08-01 16:18 | XMS_ITS | Encounter Summary ---
Author Organization [employer] Address [address] [facility] [address] [place] [address] Care Team Providers Care Outside Contractor Sales Name Role Phone Hilda Butt MD Primary Care Provider [phone] Reason for Visit * Reason Comments Med Refill Encounter Details Date Type Department Care Team ([facility] st Contact Info) Description 07/15/2025 Refill [facility] MEDICINE [address] [place], [place] [phone] Hilda Butt MD [address] [place], [place] [phone] Social History Tobacco Use Types Packs/Day Years [...] documented as of this encounter Care Teams Outside Contractor Sales Relationship Specialty Start Date End Date Hilda Butt MD [address] [place] [address] PCP - General Family Medicine 06/20/22 Stareashelly 04/08/25 documented as of this encounter
--- OUTSIDE RECORDS SUMMARY | 2025-08-01 16:18 | XMS_ITS | Encounter Summary ---
Author Organization [facility] Address [address] [place] [address] Care Team Providers Care User Interface Developer Name Role Phone Tara Paniagua RN Primary Care Provider [phone] Encounter Details Date Type Department Care Team (Late Contact Info) Description 02/08/2025 Lab Requisition [facility] - Main Lab [address] [facility] [place] [address] Benjamin Kim MD 38 [facility] [address] [place], [address] Heart failure, unspecified (CMS/HCC V24, CMS/HCC [...] Info) Description 08/11/2025 10:00 AM EDT Evaluation [facility] 175 [facility] 350 [place] [address] Trent Griffin, PT documented as of this encounter Procedures Procedure Name Priority Date/Time Associated Diagnosis Comments COMPLETE BLOOD COUNT Routine 02/09/2025 7:58 AM EDT Heart failure, unspecified ([facility] V24, [facility] V28) BASIC METABOLIC PANEL Routine 02/09/2025 7:58 AM EDT Heart failure, unspecified ([facility] V24, [facility] V28) documented in this encounter Results * Basic metabolic panel (02/09/2025 7:58 AM EDT) Sodium 139 133 - 145 mmol/L LAB CHEMISTRY METHOD 02/09/2025 12:40 PM [facility] Potassium 3.8 3.5 - 5.5 mmol/L LAB CHEMISTRY METHOD 02/09/2025 12:40 PM [facility] Chloride 104 96 - 110 mmol/L LAB CHEMISTRY METHOD 02/09/2025 12:40 PM [facility] CO2 28 21 - 32 mmol/L LAB CHEMISTRY METHOD 02/09/2025 12:40 PM [facility] Anion Gap 7 3 - 11 LAB CHEMISTRY METHOD 02/09/2025 12:40 PM [facility] Glucose 93 70 - 100 mg/dL LAB CHEMISTRY METHOD 02/09/2025 12:40 PM [facility] BUN 17 5 - 25 mg/dL LAB CHEMISTRY METHOD 02/09/2025 12:40 PM [facility] Creatinine 0.54 0.50 - 1.10 mg/dL LAB CHEMISTRY METHOD 02/09/2025 12:40 PM [facility] eGFR 111 >=60 mL/min/1. 73m2 LAB CHEMISTRY METHOD 02/09/2025 12:40 PM [facility] Comment:Calculation based on the Chronic Kidney Disease Epidemiology Collaboration (CKD-EPI) equation refit without adjustment for race. BUN/Creatinine Ratio 31.5 LAB CHEMISTRY METHOD 02/09/2025 12:40 PM [facility] Calcium 9.6 8.5 - 10.5 mg/dL LAB CHEMISTRY METHOD 02/09/2025 12:[address] [facility] Blood Venous blood specimen / Unknown Venipuncture / Unknown 02/09/2025 7:58 AM EDT 02/09/2025 11:12 AM EDT us Benjamin Kim MD LAB BLOOD ORDERABLES Final Resul t [facility] [address] [place] [address], * (ABNORMAL) Complete blood count (02/09/2025 7:58 AM EDT) WBC 5.9 4.8 - 10.8 K/mcL LAB HEMETOLOGY METHOD 02/09/2025 11:27 AM [facility] RBC 3.80 3.80 - 4.80 M/mcL LAB HEMETOLOGY METHOD 02/09/2025 11:27 AM [facility] Hemoglobin 10.9(L) 11.5 - 16.0 g/dL LAB HEMETOLOGY METHOD 02/09/2025 11:27 AM [facility] Hematocrit 34.0(L) 35.0 - 47.0 % LAB HEMETOLOGY METHOD 02/09/2025 11:27 AM [facility] MCV 88.5 79.0 - 98.0 FL LAB HEMETOLOGY METHOD 02/09/2025 11:27 AM [facility] MCH 28.4 27.0 - 32.0 pcg LAB HEMETOLOGY METHOD 02/09/2025 11:27 AM [facility] MCHC 32.1 32.0 - 37.0 g/dL LAB HEMETOLOGY METHOD 02/09/2025 11:27 AM [facility] RDW 13.6 11.0 - 15.0 % LAB HEMETOLOGY METHOD 02/09/2025 11:[address] [facility] Platelets 299 130 - 400 K/mcL LAB HEMETOLOGY METHOD 02/09/2025 11:[address] [facility] MPV 9.9 7.0 - 11.0 FL LAB HEMETOLOGY METHOD 02/09/2025 11:[address] [facility] NRBC 0.0 <1.0 % LAB HEMETOLOGY METHOD 02/09/2025 11:[address] [facility] NRBC Absolute 0.00 <0.10 K/mcL LAB HEMETOLOGY METHOD 02/09/2025 11:[address] [facility] Blood Venous blood specimen / Unknown Venipuncture / Unknown 02/09/2025 7:58 AM EDT 02/09/2025 11:12 AM EDT us Benjamin Kim MD LAB BLOOD ORDERABLES Final Resul t [facility] [address] [place] [address], documented in this encounter Visit Diagnoses Diagnosis Heart failure, unspecified (CMS/HCC V24, CMS/HCC V28) Heart failure, unspecified documented in this encounter Care Teams User Interface Developer Relationship Specialty Start Date End Date Tara Paniagua RN [address] [place] [phone] PCP - General 07/24/22 documented as of this encounter
--- OUTSIDE RECORDS SUMMARY | 2025-08-01 16:18 | XMS_ITS | Encounter Summary ---
Author Organization [employer] Address 75 [facility] 7t [place] [address] Care Team Providers Care Proposition Player Name Role Phone Hilda Butt MD Primary Care Provider [phone] Reason for Visit * Reason Comments Med Refill Encounter Details Date Type Department Care Team ([facility] st Contact Info) Description 11/22/2024 Refill [facility] MEDICINE [address] [place], [place] [phone] Hilda Butt MD [address] [place], [place] [phone] Social History Tobacco Use Types Packs/Day Years [...] documented as of this encounter Care Teams Proposition Player Relationship Specialty Start Date End Date Hilda Butt MD [address] [place] [address] PCP - General Family Medicine 06/20/22 Stareashelly 04/08/25 documented as of this encounter
--- OUTSIDE RECORDS SUMMARY | 2025-08-01 16:18 | XMS_ITS | Encounter Summary ---
Author Organization [employer] Address [address] [place] [address] Care Team Providers Care Burial Needs Salesperson Name Role Phone Tara Paniagua RN Primary Care Provider [phone] Encounter Details Date Type Department Care Team (Late Contact Info) Description 12/10/2024 Lab Requisition [facility] - Main Lab [address] [place] [address] Benjamin Kim MD 38 [facility] 204 [place], [address] Essential (primary) hypertension Social History Tobacco [...] Info) Description 08/11/2025 10:00 AM EDT Evaluation [facility] 175 [facility] 350 [place] [address] Trent Griffin PT documented as [...] mmol/L LAB CHEMISTRY METHOD 12/10/2024 11:46 AM [facility] Potassium 4.3 3.5 - 5.5 mmol/L LAB CHEMISTRY METHOD 12/10/2024 11:46 AM [facility] Chloride 104 96 - 110 mmol/L LAB CHEMISTRY METHOD 12/10/2024 11:46 AM [facility] CO2 29 21 - 32 mmol/L LAB CHEMISTRY METHOD 12/10/2024 11:46 AM [facility] Anion Gap 6 3 - 11 LAB CHEMISTRY METHOD 12/10/2024 11:46 AM [facility] Glucose 122(H) 70 - 100 mg/dL LAB CHEMISTRY METHOD 12/10/2024 11:46 AM [facility] BUN 13 5 - 25 mg/dL LAB CHEMISTRY METHOD 12/10/2024 11:46 AM [facility] Creatinine 0.56 0.50 - 1.10 mg/dL LAB CHEMISTRY METHOD 12/10/2024 11:46 AM [facility] eGFR 110 >=60 mL/min/1. 73m2 LAB CHEMISTRY METHOD 12/10/2024 11:46 AM [facility] Comment:Calculation based on the Chronic Kidney Disease Epidemiology Collaboration (CKD-EPI) equation refit without adjustment for race. BUN/Creatinine Ratio 23.2 LAB CHEMISTRY METHOD 12/10/2024 11:46 AM [facility] Calcium 9.7 8.5 - 10.5 mg/dL LAB CHEMISTRY METHOD 12/10/2024 11:46 AM [facility] Blood Venous blood specimen / Unknown Venipuncture / Unknown 12/10/2024 7:30 AM EST 12/10/2024 10:55 AM EST us Benjamin Kim MD LAB BLOOD ORDERABLES Final Resul t [facility] [address] [place] [address], * (ABNORMAL) Complete blood count (12/10/2024 7:30 AM EST) WBC 6.1 4.8 - 10.8 K/mcL LAB HEMETOLOGY METHOD 12/10/2024 11:22 AM [facility] RBC 3.70(L) 3.80 - 4.80 M/mcL LAB HEMETOLOGY METHOD 12/10/2024 11:22 AM [facility] Hemoglobin 10.6(L) 11.5 - 16.0 g/dL LAB HEMETOLOGY METHOD 12/10/2024 11:22 AM [facility] Hematocrit 33.2(L) 35.0 - 47.0 % LAB HEMETOLOGY METHOD 12/10/2024 11:22 AM [facility] MCV 89.2 79.0 - 98.0 FL LAB HEMETOLOGY METHOD 12/10/2024 11:22 AM [facility] MCH 28.5 27.0 - 32.0 pcg LAB HEMETOLOGY METHOD 12/10/2024 11:22 AM [facility] MCHC 31.9(L) 32.0 - 37.0 g/dL LAB HEMETOLOGY METHOD 12/10/2024 11:22 AM [facility] RDW 13.9 11.0 - 15.0 % LAB HEMETOLOGY METHOD 12/10/2024 11:22 AM [facility] Platelets 396 130 - 400 K/mcL LAB HEMETOLOGY METHOD 12/10/2024 11:[address] [facility] MPV 9.7 7.0 - 11.0 FL LAB HEMETOLOGY METHOD 12/10/2024 11:[address] [facility] NRBC 0.0 <1.0 % LAB HEMETOLOGY METHOD 12/10/2024 11:[address] [facility] NRBC Absolute 0.00 <0.10 K/mcL LAB HEMETOLOGY METHOD 12/10/2024 11:[address] [facility] Blood Venous blood specimen / Unknown Venipuncture / Unknown 12/10/2024 7:30 AM EST 12/10/2024 10:55 AM EST us Benjamin Kim MD LAB BLOOD ORDERABLES Final Resul t [facility] [address] [place] [address], documented in this encounter Visit Diagnoses Diagnosis Essential (primary) hypertension Unspecified essential hypertension documented in this encounter Care Teams Burial Needs Salesperson Relationship Specialty Start Date End Date Tara Paniagua RN [address] [place] [phone] PCP - General 07/24/22 documented as of this encounter
--- OUTSIDE RECORDS SUMMARY | 2025-08-01 16:18 | XMS_ITS | Encounter Summary ---
Author Organization [employer] Address 75 [facility] 7t [place] [address] Care Team Providers Care Machine Sole Leveler Name Role Phone Hilda Butt MD Primary Care Provider [phone] Reason for Visit * Reason Onset Date Comments Med Refill 04/22/2024 Encounter Details Date Type Department Care Team ([facility] Contact Info) Description 04/22/[address] [facility] MEDICINE [address] [place], [place] [phone] Hilda Butt MD 230 [place], [place] [phone] Neck pain Social History Tobacco Use Types [...] as of this encounter Care Teams Machine Sole Leveler Relationship Specialty Start Date End Date Hilda Butt MD [address] [place] [address] PCP - General Family Medicine 06/20/22 Wilfrido 04/08/25 documented as of this encounter
--- OUTSIDE RECORDS SUMMARY | 2025-08-01 16:18 | XMS_ITS | Encounter Summary ---
Author Organization [employer] Address 75 [facility] 7t [place] [address] Care Team Providers Care Director Of Guidance Name Role Phone Hilda Butt MD Primary Care Provider [phone] Encounter Details Date Type Department Care Team ([facility] Contact Info) Description 09/21/2024 Orders Only [facility] MEDICINE 230 [place], [place] [phone] Hilda Butt MD [address] [place], [place] [phone] Social History Tobacco Use Types Packs/Day Years [...] as of this encounter Care Teams Director Of Guidance Relationship Specialty Start Date End Date Hilda Butt MD [address] [place] [address] PCP - General Family Medicine 06/20/22 Stareashelly 04/08/25 documented as of this encounter
--- OUTSIDE RECORDS SUMMARY | 2025-08-01 16:18 | XMS_ITS | Encounter Summary ---
Author Organization [employer] Address 75 [facility] 7t [place] [address] Care Team Providers Care Director Of Quality Control Name Role Phone Hilda Butt MD Primary Care Provider [phone] Encounter Details Date Type Department Care Team ([facility] st Contact Info) Description 12/30/2022 Orders Only [facility] MEDICINE 230 [place] [address] Hilda Butt MD [address] [place] [address] Low back pain at multiple sites (Primary [...] laterality documented in this encounter Care Teams Director Of Quality Control Relationship Specialty Start Date End Date Hilda Butt MD [address] [place] [address] PCP - General Family Medicine 06/20/22 Wilfrido 04/08/25 documented as of this encounter
--- OUTSIDE RECORDS SUMMARY | 2025-08-01 16:18 | XMS_ITS | Clinical Summary ---
Author Organization [facility] Address [address] [place] [address] Care Team Providers Care Firearms Model Maker Name Role Phone Hilda Butt MD Primary Care Provider + Char Juarez MD Unavailable [phone] Allergies No known active allergies Medications lidocaine [...] in a correction (including now)? No 01/17/2023 Comments Unknown Sex [...] Discontinued 01/15/2023 Insurance [place] [facility] [place] [facility] [place] OUT [facility] Advance Directives * Full Code (Latest Code Status on File) Date Activated Date Inactivated Comments 01/16/2023 4:08 AM Question Answer Comments Decision Thoroughly Discussed with: Patient Care Teams Firearms Model Maker Relationship Specialty Start Date End Date Hilda Butt MD [address] [place] [address] PCP - General General Medicine 01/16/23 Char Juarez MD [address] [place] [address] 01/16/23
--- OUTSIDE RECORDS SUMMARY | 2025-08-01 16:18 | XMS_ITS | Encounter Summary ---
Author Organization [employer] Address 75 [facility] 7t [place] [address] Care Team Providers Care Locks Tender Name Role Phone Hilda Butt MD Primary Care Provider [phone] Reason for Visit * Reason Comments Med Refill Encounter Details Date Type Department Care Team ([facility] st Contact Info) Description 02/03/2023 Refill [facility] MEDICINE [address] [place] [phone] Hilda Butt MD [address] [place], [place] [phone] Social History Tobacco Use Types Packs/Day Years [...] documented as of this encounter Care Teams Locks Tender Relationship Specialty Start Date End Date Hilda Butt MD [address] [place] [address] PCP - General Family Medicine 06/20/22 iWlfrido 04/08/25 documented as of this encounter
--- OUTSIDE RECORDS SUMMARY | 2025-08-01 16:18 | XMS_ITS | Encounter Summary ---
Author Organization [employer] Address 75 [facility] 7t [place] [address] Care Team Providers Care Cafe Assistant Name Role Phone Hilda Butt MD Primary Care Provider Reason for Visit * Reason Onset Date Comments Med Refill 08/20/2024 Encounter Details Date Type Department Care Team ([facility] Contact Info) Description 08/20/2024 Refill [facility] CHC MED & PEDS [address] [place], [place] [phone] Hilda Butt MD [address] [place] [address] Social History Tobacco Use Types Packs/Day Years [...] documented as of this encounter Care Teams Cafe Assistant Relationship Specialty Start Date End Date Hilda Butt MD [address] [place] [address] PCP - General Family Medicine 06/20/22 Wilfrido 04/08/25 documented as of this encounter
--- OUTSIDE RECORDS SUMMARY | 2025-08-01 16:18 | XMS_ITS | Encounter Summary ---
Author Organization [employer] Address 75 [facility] 7t [place] [address] Care Team Providers Care Sales Associate Fishing Name Role Phone Hilda Butt MD Primary Care Provider Reason for Visit * Reason Onset Date Comments Med Refill 11/19/2024 Encounter Details Date Type Department Care Team ([facility] st Contact Info) Description 11/19/2024 Refill [facility] MEDICINE [address] [place], [place] [phone] Hilda Butt MD 230 [place], [place] [phone] Chronic obstructive pulmonary disease with acute exacerbation [...] as of this encounter Care Teams Sales Associate Fishing Relationship Specialty Start Date End Date Hilda Butt MD [address] [place] [address] PCP - General Family Medicine 06/20/22 Aveanna 04/08/25 documented as of this encounter
--- OUTSIDE RECORDS SUMMARY | 2025-08-01 16:18 | XMS_ITS | Encounter Summary ---
Author Organization [employer] Address 75 [facility] 7t [place] [address] Care Team Providers Care Tank Cleaning Supervisor Name Role Phone Hilda Butt MD Primary Care Provider [phone] Reason for Visit * Reason Onset Date Comments Med Refill 08/10/2024 Encounter Details Date Type Department Care Team ([facility] Contact Info) Description 08/10/2024 Refill [facility] CHC MED & PEDS [address] [place], [place] [phone] Hilda Butt MD [address] [place] [address] Social History Tobacco Use Types Packs/Day Years [...] documented as of this encounter Care Teams Tank Cleaning Supervisor Relationship Specialty Start Date End Date Hilda Butt MD [address] [place] [address] PCP - General Family Medicine 06/20/22 Wilfrido 04/08/25 documented as of this encounter
--- OUTSIDE RECORDS SUMMARY | 2025-08-01 16:18 | XMS_ITS | Encounter Summary ---
Author Organization [employer] [facility] Address [address] [place] [address] Care Team Providers Care Clinical Lab Scientist Name Role Phone Tara Paniagua RN Primary Care Provider [phone] Encounter Details Date Type Department Care Team (Late Contact Info) Description 12/28/2024 Lab Requisition [facility] - Main Lab 299 [facility] [place] [address] Benjamin Kim MD [address] [facility] 204 [place], [address] Heart failure, unspecified (CMS/HCC V24, CMS/HCC [...] Info) Description 08/11/2025 10:00 AM EDT Evaluation [facility] 175 [facility] 350 [place] [address] Trent Griffin, PT documented as [...] Resul t [facility] [address] [place] [address], * (ABNORMAL) Complete blood count (12/29/2024 7:42 [...] LAB HEMETOLOGY METHOD 12/29/2024 11:32 AM EST [facility] MPV 10.1 7.0 - 11.0 FL LAB HEMETOLOGY METHOD 12/29/2024 11:32 AM EST [facility] NRBC 0.0 <1.0 % LAB HEMETOLOGY METHOD 12/29/2024 11:32 AM EST [facility] NRBC Absolute 0.00 <0.10 K/mcL LAB HEMETOLOGY METHOD 12/29/2024 11:32 AM EST [facility] Blood Venous blood specimen / Unknown Venipuncture / Unknown 12/29/2024 7:42 AM EST 12/29/2024 11:02 AM EST us Benjamin Kim MD LAB BLOOD ORDERABLES Final Resul t [facility] [address] [place] [address], documented in this encounter Visit Diagnoses Diagnosis Heart failure, unspecified (CMS/HCC V24, CMS/HCC V28) Heart failure, unspecified documented in this encounter Care Teams Clinical Lab Scientist Relationship Specialty Start Date End Date Tara Paniagua RN [address] [place] [phone] PCP - General 07/24/22 documented as of this encounter
--- OUTSIDE RECORDS SUMMARY | 2025-08-01 16:18 | XMS_ITS | Encounter Summary ---
Author Organization [employer] Address 75 [facility] 7t [place] [address] Care Team Providers Care Traffic Court Referee Name Role Phone Hilda Butt MD Primary Care Provider [phone] Reason for Visit * Reason Onset Date Comments Med Refill 05/25/2024 Encounter Details Date Type Department Care Team ([facility] st Contact Info) Description 05/25/2024 Refill [facility] CHC MED & PEDS [address] [place], [place] [phone] Hilda Butt MD [address] [place] [address] Social History Tobacco Use Types Packs/Day Years [...] documented as of this encounter Care Teams Traffic Court Referee Relationship Specialty Start Date End Date Hilda Butt MD [address] [place] [address] PCP - General Family Medicine 06/20/22 Wilfrido 04/08/25 documented as of this encounter
--- OUTSIDE RECORDS SUMMARY | 2025-08-01 16:18 | XMS_ITS | Encounter Summary ---
Author Organization [employer] Address 75 [facility] 7t [place] [address] Care Team Providers Care Telephone Supervisor Name Role Phone Hilda Butt MD Primary Care Provider [phone] Reason for Visit * Reason Comments Med Refill Encounter Details Date Type Department Care Team ([facility] st Contact Info) Description 07/06/2025 Refill [facility] MEDICINE 230 [place], [place] [phone] Hilda Butt MD 230 [place], [place] [phone] Social History Tobacco Use Types Packs/Day Years [...] documented as of this encounter Care Teams Telephone Supervisor Relationship Specialty Start Date End Date Hilda Butt MD [address] [place] [address] PCP - General Family Medicine 06/20/22 Stareashelly 04/08/25 documented as of this encounter
--- OUTSIDE RECORDS SUMMARY | 2025-08-01 16:18 | XMS_ITS | Clinical Summary ---
Author Organization [employer] Address [address] [place] [address] 7t [place] [address] Care Team Providers Care Air/Ocean Export Clerk Name Role Phone Hilda Butt MD Primary Care Provider [phone] Allergies Active Allergy Reactions Criticality Noted Date [...] swallow. 1 each 025 2025 Active Umeclidinium Hannibal (Incruse Ellipta) 62.5 MCG/ACT aerosol powder Inhale [...] Plan (11/19/2023 11:17 AM EST): Referred to [facility] Urticarial rash 10/21/2023 Assessment & Plan (10/21/2023 [...] and results to Dr Ramirez, neurologist at [facility] regarding her sensation of pain and buzzing in the ears and head and whether it is related to history of vertebral artery dissection Assessment & Plan (02/24/2024 8:17 AM EDT): Unclear exactly what happened with neurologist Dr Rodrigues at [facility], she claims she was told she could not be seen at their practice and referred to [facility]. - recommend CT scan to evaluate dissection - see Dr Ramirez at [facility] Assessment & Plan (11/19/2023 11:22 AM EST): [...] & Plan (11/03/2024 8:20 AM EST): Had RETAIL STOCKER-D placed by Dr Chen at [facility] 9.28.23 Dizziness and SOB had improved immediately [...] & Plan (06/11/2024 8:46 AM EDT): Had RETAIL STOCKER-D placed by Dr Chen at [facility] 9..23 Dizziness and SOB had improved immediately after placement, then worse again after COVID Supposed to undergo 24-32 weeks of cardiac rehab, went to 4 and then authorization I replaced the order today for ongoing cardiac rehabilitation, pt needs this to get stronger and more active safely Assessment & Plan (11/19/2023 11:21 AM EST): Had RETAIL STOCKER-D placed by Dr Chen at [facility] 9..23 Dizziness and SOB had improved immediately after placement, then worse again after COVID Assessment & Plan (07/07/2023 9:11 AM EDT): Having RETAIL STOCKER-D placed by Dr Chen at [facility] 9..23 Will evaluate SOB and other symptoms after that Assessment & Plan (11/13/2022 7:48 AM EST): EF 35% Followed by cardiology, Shannan Pinon at [facility] Carotid artery disease 11/08/2022 Allergic conjunctivitis 09/28/2022 Atherosclerosis of aorta 09/28/2022 Atherosclerosis of right carotid artery 09/28/20 22 Bipolar II disorder (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) 09/28/2022 Assessment & Plan (06/11/2024 8:49 AM EDT): Had been on Seroquel and then Depakote, discontinued both due to concerns about side effects psychofarm followup last 02/2022 Strong anxiety component currently with partner anxiety Will try SSRI for anxiety and speak with pychofarm and then patient about restarting mood stabilizer, Seroquel or [place] Assessment & Plan (06/12/2023 10:05 AM EDT): [...] to better stage her COPD Followup via phone/inDegreet message if coughing not imporved within a [...] R endarterectomy 11/22/24 Letter given for increased AFTERNOON BABYSITTER hours in post-op period ER precautions Assessment [...] EST): Referred for colon cancer screening Declines [facility] today Gastroesophageal reflux dise ase without esophagitis [...] organization. Date Type Department Care Team Description 08/01/2025 Telephone [facility] [address] [place] [phone] Hilda Butt MD Med Refill 08/01/2025 Refill [facility] [address] [place] [address] Hilda Butt MD Vitamin D deficiency 07/26/2025 Orders Only [facility] [address] [place] [address] Hilda Butt MD 07/20/2025 Refill [facility] [address] [place] [address] Hilda Butt MD 07/18/2025 2:30 PM EDT Telemedicine [facility] [address] [place] [address] Hilda Butt MD Mild chronic obstructive pulmonary disease (CMS/HCC) (Primary Dx); COPD exacerbation (CMS/HCC) 07/18/2025 Travel 07/15/2025 Refill [facility] [place] [address] Hilda Butt MD 07/12/2025 Refill [facility] [address] [place] [address] Hilda Butt MD 07/08/2025 Patient Outreach [facility] [address] [place] [phone] Hilda Butt MD Pre-visit Planning (SDOH screening completed on 04/19/2025) 07/06/2025 Refill [facility] [address] [place] [address] Hilda Butt MD 06/24/2025 3:15 PM EDT Office Visit [facility] [address] [place] [address] Hilda Butt MD Cough, unspecified type 06/24/2025 Travel 06/23/2025 Refill [facility] [address] [place] [address] Hilda Butt MD 06/22/2025 Refill [facility] [address] [place] [address] Hilda Butt MD 06/21/2025 Refill [facility] [address] [place] [address] Hilda Butt MD 06/20/2025 Telephone [facility] [address] [place] [address] Hilda Butt MD Nurse Triage 06/15/2025 Refill [facility] [address] [place] [address] Hilda Butt MD 06/13/2025 Refill [facility] [address] [place] [address] Hilda Butt MD Chronic obstructive pulmonary disease with acute exacerbation (CMS/HCC) 06/02/2025 Telephone [facility] [address] [place] [address] Hilda Butt MD Med Refill 05/26/2025 Telephone [facility] [address] [place] [address] Judd, Allyn, OD 05/24/2025 Telephone [facility] [address] [place] [address] Hilda Butt MD referral question 05/19/2025 Telephone [facility] [address] [place] [address] Hilda Butt MD fyi 05/13/2025 Orders Only [facility] [address] [place] [address] Hilda Butt MD Spastic hemiplegia of left nondominant side as late effect of cerebral infarction (CMS/HCC) (Primary Dx); Status post cerebrovascular accident; S/P carotid endarterectomy 05/13/[address] [address] Hilda Butt MD Call Back Request; Referral 05/13/[address] [address] Hilda Butt MD Medication Question 05/12/[address] [address] Hilda Butt MD Durable Medical Equipment (DME Request) 05/11/[address] [address] Hilda Butt MD 05/11/[address] [address] Hilda Butt MD Durable Medical Equipment (DME: 2 Wheeled walker with with a left arm platform) 05/10/[address] [address] Hilda Butt MD Recurrent acute serous otitis media of right ear 05/09/2025 2:00 PM EDT Office Visit [address] [address] Hilda Butt MD Status post cerebrovascular accident (Primary Dx); Chronic diastolic congestive heart failure (CMS/HCC); Atherosclerosis of right carotid artery; S/P carotid endarterectomy; Dissection of right carotid artery (CMS/HCC); Bipolar II disorder (CMS/HCC); Mixed stress and urge urinary incontinence; Vertebral artery dissection (CMS/HCC); Spastic hemiplegia of left nondominant side as late effect of cerebral infarction (CMS/HCC); Subacute cough 05/09/2025 Travel 05/06/[address] [address] Hilda Butt MD Chart Prep 05/06/[address] [address] Hilda Butt MD Nurse Triage from Last 3 Months Immunizations Immunization Administration [...] 2025 , 07/17/2023, 2022, Additional history exists Depression Screening 04/19/2026 04/19/2025, 04/19/20 25 Disability Screening 04/19/2026 04/19/2025 SDOH Screening 04/19/2026 04/19/2025 Tobacco Screening 07/19/2026 07/19/2025 Mammogram 07/26/2026 07/26/2025, 06/27, 07/14/2023, Additional history exists Lipid Panel 03/29/2027 03/29/2022, 11/30/2020 DTaP/Tdap/Td Vaccines [...] Procedure Name Priority Date/Time Associated Diagnosis Comments BI MAMMOGRAM DIAGNOSTIC TOMOSYNTHESIS BILATERAL Routine 07/26/2025 2:30 PM EDT POCT RAPID COVID ANTIGEN Routine 06/24/2025 3:30 PM EDT Cough, unspecified type POCT URINALYSIS DIPSTICK Routine 05/09/2025 2:43 PM EDT Mixed stress and urge urinary incontinence HPV MRNA E6/E7 REFLEX TO HPV 16, [...] Recently Relevant to Health Maintenance Results * BI Mammogram Diagnostic Tomosynthesis Bilateral (07/26/2025 2:30 PM EDT) Anatomical Region Laterality Modality Breast Bilateral Mammography 07/26/2025 2:30 PM EDT Narrative 07/26/2025 6:44 PM EDT [facility] [address] [place], [place] [address] Mammography Report Signed Patient: Renita Brandon MR#: [id number] 4 : 1970 Acct:[id number] Age/Sex: 55 / F ADM Date: 07/26/25 Loc: HO.MAMMO Attending Dr: Hilda Butt MD Ordering Physician: Hilda Butt Results: 1Negative Date of Service: 07/26/25 Follow Up: 1 Year From Orig inal Mammogram Procedure(s): MM tomosynthesis diagnostic BI Accession Number(s): [id number] cc: Hilda Butt Reason For Exam: HX OF LT BR CA 2021/ YEARLY EXAMINATION(S): MM DIAGNOSTIC DIGITAL BREAST TOMOSYNTHESIS, BILATERAL CLINICAL INFORMATION: Left breast cancer, status post lumpectomy in 2021. COMPARISON: Comparison made to multiple prior, most recent July 15, 2024, and most remote August 28, 2022. TECHNIQUE: Digital breast tomosynthesis is performed in both the mediolateral oblique and craniocaudal views along with computer-aided detection (CAD). Synthesized 2D images are generated from the tomosynthesis. Best possible images according to technologist's notes. FINDINGS: BREAST COMPOSITION: The breasts are heterogeneously dense, which may obscure small masses. RIGHT BREAST: No significant masses, suspicious calcifications or other abnormalities are seen. LEFT BREAST: Post lumpectomy changes. Limited examination. Within this limitation, no significant masses, suspicious calcifications or other abnormalities are seen. MM/MM tomosynthesis diagnostic BI IMPRESSION: BILATERAL BREASTS: Limited examination. Within this limitation, benign, no mammographic evidence of malignancy. Patient may return to routine screening mammogram 12 months. ASSESSMENT: BI-RADS: Category 1: Negative RECOMMENDATION: 1 year F/U Results were provided to the patient at time of visit by the technologist. This patient's information was entered into a reminder system with a target due date for their next mammogram. Electronically signed by: Roberto Joel MD 07/26/2025 06:41 PM EDT Dictated By: Roberto Joel MD Signed By: <Electronically signed by Roberto Joel MD in OV> 07/26/25 1841 DD/ 1430 TD/TT: 07/26/25 1454 Meter Installer: Procedure Note Donotuseinterpreter, Image - 07/26/20[facility] [address] [place] [address] Mammography Report Signed Patient: Renita BrandonMR#: [id number] 4 : 1970Acct:[id number] Age/Sex: 55 / FADM Date: 07/26/25 Loc: HO.MAMMO Attending Dr: Hilda Butt MD Ordering Physician: Sunil Buttults: 1Negative Date of Service: 07/26/25Follow Up: 1 Year From Orig inal Mammogram Procedure(s): MM tomosynthesis diagnostic BI Accession Number(s): [id number] cc: Hilda Butt Reason For Exam: HX OF LT BR CA 2021/ YEARLY EXAMINATION(S): MM DIAGNOSTIC DIGITAL BREAST TOMOSYNTHESIS, BILATERAL CLINICAL INFORMATION: Left breast cancer, status post lumpectomy in 2021. COMPARISON: Comparison made to multiple prior, most recent July 15, 2024, and most remote August 28, 2022. TECHNIQUE: Digital breast tomosynthesis is performed in both the mediolateral oblique and craniocaudal views along with computer-aided detection (CAD). Synthesized 2D images are generated from the tomosynthesis. Best possible images according to technologist's notes. FINDINGS: BREAST COMPOSITION: The breasts are heterogeneously dense, which may obscure small masses. RIGHT BREAST: No significant masses, suspicious calcifications or other abnormalities are seen. LEFT BREAST: Post lumpectomy changes. Limited examination. Within this limitation, no significant masses, suspicious calcifications or other abnormalities are seen. MM/MM tomosynthesis diagnostic BI IMPRESSION: BILATERAL BREASTS: Limited examination. Within this limitation, benign, no mammographic evidence of malignancy. Patient may return to routine screening mammogram 12 months. ASSESSMENT: BI-RADS: Category 1: Negative RECOMMENDATION: 1 year F/U Results were provided to the patient at time of visit by the technologist. This patient's information was entered into a reminder system with a target due date for their next mammogram. Electronically signed by: Roberto Joel MD 07/26/2025 06:41 PM EDT RP Dictated By: Roberto Joel MD Signed By: <Electronically signed by Roberto Joel MD in OV> 07/26/25 1841 DD/ 1430 TD/TT: 07/26/25 1454 Meter Installer: Hilda Butt MD IMG BI PROCEDURES Final Result * POCT Rapid Covid-19 BinaxNOW (06/24/2025 3:30 PM EDT) Rapid COVID Ag Negative QC Media Lot # [id number] Lot# Expiration Date 72,526 Swab 06/24/2025 3:30 [...] Media Lot # [id number] Lot# Expiration Date 2,[id number] Urine 05/09/2025 2:43 PM EDT Hilda Butt MD POINT OF CARE TEST ENTER/EDIT ORDERABLES Final Result * HPV mRNA E6/E7 w/Reflex to HPV Genotypes 16, 18/45 (02/20/2024 12:12 PM EDT) HPV nRNA E6/E7 Not Detected Not Detected [facility] Comment:Methodology: Transcr iption-Mediated AmplificationThis assay detects E6/E7 viral messenger RNA (mRNA) from 14high-risk HPV types (16,18,31,33,35,39,45,51,52,56,58,59,66,68).Cervical sources are required for HPV testing.If a vaginal source from a patient who has had atotal hysterectomy with removal of cervix wassubmitted, please contact the testing laboratoryfor alternative testing options.For additional information, please refer tohttp://education.Hunch/faq/TOG939u1(This link if provided for information/educational purposes only.)THIS TEST WAS PERFORMED AT:[employer] [place] [phone] GARCIA MD HPV mRNA E6/E7 [facility] HPV 16 RNA [facility] HPV 18/45 RNA [facility] 02/20/2024 12:1 2 PM EDT 02/24/2024 7:30 AM EDT Hilda Butt MD LAB CYTOLOGY ORDERABLES Final Result [facility] [address] [place] [phone] * Pap Smear (02/20/2024 12:12 PM EDT) 02/20/2024 12:1 2 PM EDT 02/24/2024 7:30 AM EDT Narrative [facility] - 03/13/2024 5:52 PM EDT ----- ------- Name: Renita Brandon Age/Sex: 53/F : 1970 Unit#: [id number] Attend Dr: Hilda Butt Re02/20/24 Status: DEP REF Location: [facility] Disch: ----- ------- SPEC : [id number] RECD: 02/24/24 STATUS: LISA ESTRELLA NUM: [id number] ANNE: 02/20/24-1211 [facility] DR: Hilda Butt ENTERED: 02/24/24 SP TYPE: Pap Smr OTHR DR: ORDERED: Pap Smear Interpretation Satisfactory for evaluation. Negative for intraepithelial lesion or malignancy. HPV mRNA E6/E7: NOT DETECTED This assay detects E6/E7 viral messenger RNA (mRNA) from 14 high-risk HPV types (16, 18, 31, 33, 35, 39, 45, 51, 52, 56, 58, 59, 66, 68) HPV testing performed by [employer], [place], [place]. See reference laboratory portion of the EMR for entire report. Clinical Information LMP: Postmenopausal Previous PAP test: 2019, NILM Other surgery:Hysterectomy, cervical sparing in 2021 for fibroids Other history: No prior abnormal Material Received ThinPrep-Cervical ----- ------- Signed (signature on file) Amparo Martinez 03/13/24 [id number] ----- ------- END OF REPORT Hilda Butt MD LAB CYTOLOGY ORDERABLES Final Result Performing Organization Address City/[facility]/ZIP Co de Phone Number [facility] [address] [place] [address] [phone] * HEPATITIS C AB W/REFL TO HCV RNA, QN, PCR (05/09/2022 4:02 PM EDT) HEPATITIS C ANTIBODY NON-REACT KRISTIN NON-REACT [facility] INDEX 0.08 <1.00 [facility] Comment: HCV antibody was non-reactive. There is no laboratory evidence of HCV infection. In most cases, no further action is required. However, if recent HCV exposure is suspected, a test for HCV RNA (test code 37308) is suggested. For additional information please refer to http://education.Hunch/faq/NKR86g0 (This link is being provided for informational/ educational purposes only.) 05/09/2022 4:02 PM EDT Tara LAFLEUR HISTORICAL/NON ORDERABLE LABS Final Result Performing Organization Address City/[facility]/ZIP Co de Phone Number [facility] [address] * HIV 1/2 ANTIGEN/ANTIBODY,FOURTH GENERATION W/RFL (05/09/2022 4:02 PM EDT) HIV-1/2 ANTIGEN AND ANTIBODIES, 4TH GENERATION W/ REFLEX NON-REACT KRISTIN NON-REACT [facility] Comment: HIV-1 antigen and HIV-1/HIV-2 [...] purpose. For additional information please refer to http://[employer].its learning.Insightly/faq/YQP552 (This link is being provided for informational/ educational purposes only.) The performance of this assay has not been clinically validated in patients less than 2 years old. 05/09/2022 4:02 PM EDT us Tara Paniagua [facility] LAB BLOOD ORDERABLES Final Res ult [facility] [address] * (ABNORMAL) LIPID PANEL, STANDARD (03/29/2022 [...] factors. LDL-C is now calculated using the Kirk-Peter calculation, which is a validated novel method providing better accuracy than the Friedewald equation in the estimation of LDL-C. Kirk NEWSOME et al. RUTH. 2013;310(19): 7740-7954 (http://education.[employer].Insightly/faq/QUW220) Non-HDL Cholesterol 166(H) <130 mg/dL (calc) [facility] [...] 2015;9:129-169. 03/29/2022 3:50 PM EDT us Tara Arcelia [facility] LAB BLOOD ORDERABLES Final Res ult [facility] [address] from Last 3 Months or Most Recently Relevant to Health Maintenance Insurance [facility]ARE < [address] [place] [id number] Care Teams Air/Ocean Export Clerk Relationship Specialty Start Date End Date Hilda Butt MD [address] [place] [phone] PCP - General Family Medicine 06/20/22 Wilfrido 04/08/25
--- OUTSIDE RECORDS SUMMARY | 2025-08-01 16:18 | XMS_ITS | Encounter Summary ---
Author Organization [employer] Address [address] [facility] 7t [place] [address] Care Team Providers Care General Lithographic Worker Name Role Phone Hilda Butt MD Primary Care Provider [phone] Reason for Visit * Reason Onset Date Comments Med Refill 08/01/2025 Encounter Details Date Type Department Care Team ([facility] Contact Info) Description 08/01/[address] [facility] [address] [place], [place] [phone] Hilda Butt MD [address] [place], [place] [phone] Med Refill Social History Tobacco Use Types Packs/Day Years [...] encounter Miscellaneous Notes * Telephone Encounter - Merced Salvador LPN - 08/01/2025 3:51 PM EDT Gabapentin is to soon to reill * Telephone Encounter - Byron Sykes - 08/01/2025 3:46 PM EDT TC from pt requesting medication refill. Medications needing refill : gabapentin (Neurontin) 100 MG capsule ibuprofen 400 MG tablet To be sent to: [facility] - [place], [place] - [address] [place] [address] documented in this encounter Plan of Treatment [...] documented as of this encounter Care Teams General Lithographic Worker Relationship Specialty Start Date End Date Hilda Butt MD [address] [place] [address] PCP - General Family Medicine 06/20/22 Aveashelly 04/08/25 documented as of this encounter
--- OUTSIDE RECORDS SUMMARY | 2025-08-01 16:18 | XMS_ITS | Clinical Summary ---
Author Organization [address] [facility] Address [address] [place] [address] Phone Care Team Providers Care Executive Director Sheltered Workshop Name Role Phone Tara Paniagua RN Primary Care Provider [phone] Surgical History Surgery Date Site/Laterality Comments TUBAL LIGATION PROCEDURE: HISTORICAL TUBAL LIGATION BUNIONECTOMY PROCEDURE: MO CORRJ HLX VLGS BNCTY SESMDC W/DOUBLE OSTEOTOMY [...] Upcoming Encounters Date Type Department Care Team ([facility] Contact Info) Description 08/11/2025 10:[address] [facility] [address] [phone] Trent Griffin, PT Health Maintenance Due Date Last Done Comments Breast Cancer Screening 1970 Colorectal Cancer Screening: Colonoscopy 1970 Hepatitis C Screening 09/29/2022 Medicare Annual Wellness [...] 02/09/2025 7:58 AM EDT Heart failure, unspecified (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 V24, 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 V28) from Last 3 Months or Most Recently Relevant to Health Maintenance Results * Basic metabolic panel (02/09/2025 7:58 AM EDT) Sodium 139 133 - 145 mmol/L LAB CHEMISTRY METHOD 02/09/2025 12:40 PM [facility] Potassium 3.8 3.5 - 5.5 mmol/L LAB CHEMISTRY METHOD 02/09/2025 12:40 PM [facility] Chloride 104 96 - 110 mmol/L LAB CHEMISTRY METHOD 02/09/2025 12:40 PM [facility] CO2 28 21 - 32 mmol/L LAB CHEMISTRY METHOD 02/09/2025 12:40 PM [facility] Anion Gap 7 3 - 11 LAB CHEMISTRY METHOD 02/09/2025 12:40 PM [facility] Glucose 93 70 - 100 mg/dL LAB CHEMISTRY METHOD 02/09/2025 12:40 PM [facility] BUN 17 5 - 25 mg/dL LAB CHEMISTRY METHOD 02/09/2025 12:40 PM [facility] Creatinine 0.54 0.50 - 1.10 mg/dL LAB CHEMISTRY METHOD 02/09/2025 12:40 PM [facility] eGFR 111 >=60 mL/min/1. 73m2 LAB CHEMISTRY METHOD 02/09/2025 12:40 PM [facility] Comment:Calculation based on the Chronic Kidney Disease Epidemiology Collaboration (CKD-EPI) equation refit without adjustment for race. BUN/Creatinine Ratio 31.5 LAB CHEMISTRY METHOD 02/09/2025 12:40 PM [facility] Calcium 9.6 8.5 - 10.5 mg/dL LAB CHEMISTRY METHOD 02/09/2025 12:40 PM EDT [facility] Blood Venous blood specimen / Unknown Venipuncture / Unknown 02/09/2025 7:58 AM EDT 02/09/2025 11:12 AM EDT us Benjamin Kim MD LAB BLOOD ORDERABLES Final Resul t [facility] ([facility]) [facility] [address] [place] [address], [place] [phone] from Last 3 Months or Most Recently Relevant to Health Maintenance Insurance [employer] MEDIC[employer] Member Subscriber Plan / Payer (Ef fective 2023-Present) Name:VALVERDE, RENITA Relation to Subscriber:Self Name:Renita Valverde Payer ID:[id number] Group ID:[id number] Type:Not on file Address: [place] [address] [place] [id number] Advance Directives Documents on File Type Date Recorded Patient Franchise Field Consultant Expl anation Health Care Decision (hx) 02/06/2024 AD ORTIZ DIRECTIVE Health Care Decision (hx) 02/06/2024 AD ORTIZ DIRECTIVE Health Care Decision (hx) 02/06/2024 AD ORTIZ DIRECTIVE Health Care Decision (hx) 02/04/2023 AD ORTIZ DIRECTIVE Care Teams Executive Director Sheltered Workshop Relationship Specialty Start Date End Date Tara Paniagua RN [address] [place] [phone] PCP - General 07/24/22
--- OUTSIDE RECORDS SUMMARY | 2025-08-01 16:18 | XMS_ITS | Encounter Summary ---
Author Organization [employer] Address [address] [facility] [address] [place] [address] Care Team Providers Care Sr. Payroll Manager Name Role Phone Hilda Butt MD Primary Care Provider [phone] Reason for Visit * Reason Onset Date Comments Med Refill 04/22/2024 Encounter Details Date Type Department Care Team ([facility] Contact Info) Description 04/22/2024 Refill [facility] [address] [place], [place] [phone] Hilda Butt MD [address] [place], [place] [phone] Social History Tobacco Use Types Packs/Day Years [...] documented as of this encounter Care Teams Sr. Payroll Manager Relationship Specialty Start Date End Date Hilda Butt MD [address] [place] [address] PCP - General Family Medicine 06/20/22 Wilfrido 04/08/25 documented as of this encounter
--- OUTSIDE RECORDS SUMMARY | 2025-08-01 16:18 | XMS_ITS | Encounter Summary ---
Author Organization [employer] Address 75 [facility] 7t [place] [address] Care Team Providers Care Insurance Counselor Name Role Phone Hilda Butt MD Primary Care Provider [phone] Reason for Visit * Reason Onset Date Comments Med Refill 11/03/2024 Encounter Details Date Type Department Care Team ([facility] st Contact Info) Description 11/03/2024 Refill [facility] MEDICINE [address] [place], [place] [phone] Hilda Butt MD 230 [place], [place] [phone] Social History Tobacco Use Types Packs/Day Years [...] documented as of this encounter Care Teams Insurance Counselor Relationship Specialty Start Date End Date Hilda Butt MD 230 [place] [address] PCP - General Family Medicine 06/20/22 Wilfrido 04/08/25 documented as of this encounter
--- OUTSIDE RECORDS SUMMARY | 2025-08-01 16:18 | XMS_ITS | Encounter Summary ---
Author Organization [employer] Address 75 [facility] 7t [place] [address] Care Team Providers Care Plant Safety Engineer Name Role Phone Hilda Butt MD Primary Care Provider [phone] Reason for Visit * Reason Onset Date Comments Med Refill 11/19/2024 Encounter Details Date Type Department Care Team ([facility] st Contact Info) Description 11/19/2024 Refill [facility] MED & PEDS [address] [place], [place] [phone] Hilda Butt MD 230 [place] [address] Social History Tobacco Use Types Packs/Day Years [...] documented as of this encounter Care Teams Plant Safety Engineer Relationship Specialty Start Date End Date Hilda Butt MD 230 [place] [address] PCP - General Family Medicine 06/20/22 Wilfrido 04/08/25 documented as of this encounter
--- OUTSIDE RECORDS SUMMARY | 2025-08-01 16:18 | XMS_ITS | Encounter Summary ---
Author Organization [employer] Address 75 [facility] 7t [place] [address] Care Team Providers Care Crude Tester Name Role Phone Hilda Butt MD Primary Care Provider [phone] Reason for Visit * Reason Onset Date Comments Med Refill 03/01/2024 Encounter Details Date Type Department Care Team ([facility] st Contact Info) Description 03/01/2024 Refill [facility] MEDICINE 230 [place], [place] [phone] Hilda Butt MD 230 [place], [place] [phone] Itchy skin of anus and genitals; Recurrent [...] documented as of this encounter Care Teams Crude Tester Relationship Specialty Start Date End Date Hilda Butt MD 230 [place] [address] PCP - General Family Medicine 06/20/22 Wilfrido 04/08/25 documented as of this encounter
--- OUTSIDE RECORDS SUMMARY | 2025-08-01 16:18 | XMS_ITS | Encounter Summary ---
Author Organization [employer] Address 75 [facility] 7t [place] [address] Care Team Providers Care Clipman Name Role Phone Hilda Butt MD Primary Care Provider [phone] Encounter Details Date Type Department Care Team ([facility] st Contact Info) Description 11/05/2024 Orders Only [facility] MEDICINE 230 [place], [place] [phone] Hilda Butt MD 230 [place], [place] [phone] Social History Tobacco Use Types Packs/Day Years [...] documented as of this encounter Care Teams Clipman Relationship Specialty Start Date End Date Hilda Butt MD 230 [place] [address] PCP - General Family Medicine 06/20/22 Stareashelly 04/08/25 documented as of this encounter
--- OUTSIDE RECORDS SUMMARY | 2025-08-01 16:18 | XMS_ITS | Encounter Summary ---
Author Organization [employer] Address 75 [facility] 7t [place] [address] Care Team Providers Care Granulating Blender Name Role Phone Hilda Butt MD Primary Care Provider [phone] Reason for Visit * Reason Onset Date Comments Med Refill 11/18/2024 Encounter Details Date Type Department Care Team ([facility] st Contact Info) Description 11/18/2024 Refill [facility] CH[facility] MED & PEDS [address] [place], [place] [phone] Hilda Butt MD 230 [place] [address] Social History Tobacco Use Types Packs/Day Years [...] documented as of this encounter Care Teams Granulating Blender Relationship Specialty Start Date End Date Hilda Butt MD 230 [place] [address] PCP - General Family Medicine 06/20/22 Wilfrido 04/08/25 documented as of this encounter
--- OUTSIDE RECORDS SUMMARY | 2025-08-01 16:18 | XMS_ITS | Encounter Summary ---
Author Organization [employer] Address 75 [facility] 7t [place] [address] Care Team Providers Care Presser Automatic Name Role Phone Hilda Butt MD Primary Care Provider [phone] Reason for Visit * Reason Onset Date Comments Med Refill 05/10/2024 Encounter Details Date Type Department Care Team ([facility] st Contact Info) Description 05/10/2024 Refill [facility] MEDICINE 230 [place], [place] [phone] Hilda Butt MD 230 [place], [place] [phone] Social History Tobacco Use Types Packs/Day Years [...] documented as of this encounter Care Teams Presser Automatic Relationship Specialty Start Date End Date Hilda Butt MD 230 [place] [address] PCP - General Family Medicine 06/20/22 Wilfrido 04/08/25 documented as of this encounter
--- OUTSIDE RECORDS SUMMARY | 2025-08-01 16:18 | XMS_ITS | Encounter Summary ---
Author Organization [employer] Address 75 [facility] 7t [place] [address] Care Team Providers Care Chief Design Engineer Name Role Phone Hilda Butt MD Primary Care Provider [phone] Reason for Visit * Reason Onset Date Comments Med Refill 11/17/2024 Encounter Details Date Type Department Care Team ([facility] st Contact Info) Description 11/17/[address] [facility] MEDICINE [address] [place], [place] [phone] Hilda Butt MD 230 [place], [place] [phone] Social History Tobacco Use Types Packs/Day Years [...] documented as of this encounter Care Teams Chief Design Engineer Relationship Specialty Start Date End Date Hilda Butt MD [address] [place] [address] PCP - General Family Medicine 06/20/22 Wilfrido 04/08/25 documented as of this encounter
--- OUTSIDE RECORDS SUMMARY | 2025-08-01 16:18 | XMS_ITS | Encounter Summary ---
Author Organization [employer] Address 75 [facility] 7t [place] [address] Care Team Providers Care Pug Mill Operator Helper Name Role Phone Hilda Butt MD Primary Care Provider [phone] Reason for Visit * Reason Onset Date Comments Med Refill 11/05/2024 Encounter Details Date Type Department Care Team ([facility] st Contact Info) Description 11/05/2024 Refill [facility] MEDICINE 230 [place], [place] [phone] Hilda Butt MD 230 [place], [place] [phone] Social History Tobacco Use Types Packs/Day Years [...] documented as of this encounter Care Teams Pug Mill Operator Helper Relationship Specialty Start Date End Date Hilda Butt MD 230 [place] [address] PCP - General Family Medicine 06/20/22 [place]fr[place] 04/08/25 documented as of this encounter
--- OUTSIDE RECORDS SUMMARY | 2025-08-01 16:18 | XMS_ITS | Encounter Summary ---
Author Organization [employer] Address 75 [facility] 7t [place] [address] Care Team Providers Care Adapted Physical Education Aide Name Role Phone Hilda Butt MD Primary Care Provider [phone] Reason for Visit * Reason Onset Date Comments Med Refill 04/22/2024 Encounter Details Date Type Department Care Team ([facility] Contact Info) Description 04/22/2024 Refill [facility] MEDICINE 230 [place], [place] [phone] Hilda Butt MD 230 [place], [place] [phone] Social History Tobacco Use Types Packs/Day Years [...] documented as of this encounter Care Teams Adapted Physical Education Aide Relationship Specialty Start Date End Date Hilda Butt MD 230 [place] [address] PCP - General Family Medicine 06/20/22 Wilfrido 04/08/25 documented as of this encounter
--- OUTSIDE RECORDS SUMMARY | 2025-08-01 16:19 | XMS_ITS | Encounter Summary ---
Author Organization [employer] Address 75 [facility] 7t [place] [address] Care Team Providers Care Mosaicist Name Role Phone Hilda Arshad MD Primary Care Provider [phone] Reason for Visit * Reason Onset Date Comments medical supplies 08/08/2023 Encounter Details Date Type Department Care Team ([facility] Contact Info) Description 08/08/2023 Telephone [facility] MEDICINE 230 [place], [place] [phone] Hilda Arshad MD 230 [place], [place] [phone] medical supplies Social History Tobacco Use Types [...] AND [facility]EC[facility] WICH WILL BE SENT TO [facility] AT [facility] BECAUSE [facility] DOES NOT ACCEPT [facility]. * Telephone Encounter - [...] documented as of this encounter Care Teams Mosaicist Relationship Specialty Start Date End Date Hilda Arshad MD [address] [place] [address] PCP - General Family Medicine 06/20/22 Stareashelly 04/08/25 documented as of this encounter
--- OUTSIDE RECORDS SUMMARY | 2025-08-01 16:19 | XMS_ITS | Encounter Summary ---
Author Organization [employer] Address 75 [facility] 7t [place] [address] Care Team Providers Care Deck Officer Name Role Phone Hilda Butt MD Primary Care Provider [phone] Reason for Visit * Reason Comments Med Refill Encounter Details Date Type Department Care Team ([facility] st Contact Info) Description 2024 Refill [facility] MEDICINE 230 [place], [place] [phone] Hilda Butt MD 230 [place], [place] [phone] Social History Tobacco Use Types Packs/Day Years [...] documented as of this encounter Care Teams Deck Officer Relationship Specialty Start Date End Date Hilda Butt MD 230 [place] [address] PCP - General Family Medicine 06/20/22 Wilfrido 04/08/25 documented as of this encounter
--- OUTSIDE RECORDS SUMMARY | 2025-08-01 16:19 | XMS_ITS | Encounter Summary ---
Author Organization [employer] Address 75 [facility] 7t [place] [address] Care Team Providers Care Lugger Name Role Phone Hilda Butt MD Primary Care Provider [phone] Reason for Visit * Reason Onset Date Comments Med Refill 12/03/2023 Encounter Details Date Type Department Care Team ([facility] st Contact Info) Description 12/03/2023 Refill [facility] MEDICINE 230 [place], [place] [phone] Hilda Butt MD 230 [place], [place] [phone] Low back pain at multiple sites Social [...] documented as of this encounter Care Teams Lugger Relationship Specialty Start Date End Date Hilda Butt MD [address] [place] [address] PCP - General Family Medicine 06/20/22 Stareashelly 04/08/25 documented as of this encounter
--- OUTSIDE RECORDS SUMMARY | 2025-08-01 16:19 | XMS_ITS | Encounter Summary ---
Author Organization [employer] Address 75 [facility] 7t [place] [address] Care Team Providers Care Graphite Mill Operator Name Role Phone Hilda Butt MD Primary Care Provider Encounter Details Date Type Department Care Team ([facility] st Contact Info) Description 08/19/2023 Abstract [facility] MEDICINE 230 [place], [place] [phone] Hilda Butt MD 230 [place], [place] [phone] Social History Tobacco Use Types Packs/Day Years [...] t he electric, gas, oil or water [employer] threatened to shut off services in your [...] documented as of this encounter Care Teams Graphite Mill Operator Relationship Specialty Start Date End Date Hilda Butt MD 230 [place] [address] PCP - General Family Medicine 06/20/22 Stareashelly 04/08/25 documented as of this encounter
--- OUTSIDE RECORDS SUMMARY | 2025-08-01 16:19 | XMS_ITS | Encounter Summary ---
Author Organization [employer] Address 75 [facility] 7t [place] [address] Care Team Providers Care Debt Counselor Name Role Phone Hilda Butt MD Primary Care Provider [phone] Encounter Details Date Type Department Care Team ([facility] st Contact Info) Description 08/18/2023 Abstract [facility] MEDICINE 230 [place], [place] [phone] Hilda Butt MD 230 [place], [place] [phone] Social History Tobacco Use Types Packs/Day Years [...] t he electric, gas, oil or water [employer] threatened to shut off services in your [...] documented as of this encounter Care Teams Debt Counselor Relationship Specialty Start Date End Date Hilda Butt MD 230 [place] [address] PCP - General Family Medicine 06/20/22 Stareashelly 04/08/25 documented as of this encounter
--- OUTSIDE RECORDS SUMMARY | 2025-08-01 16:19 | XMS_ITS | Encounter Summary ---
Author Organization [employer] Address 75 [facility] 7t [place] [address] Care Team Providers Care Rfid Analyst Name Role Phone Hilda Butt MD Primary Care Provider [phone] Reason for Visit * Reason Onset Date Comments Med Refill 10/16/2023 Encounter Details Date Type Department Care Team ([facility] Contact Info) Description 10/16/2023 Refill [facility] CHC MED & PEDS [address] [place], [place] [phone] Hilda Butt MD 230 [place] [address] Social History Tobacco Use Types Packs/Day Years [...] documented as of this encounter Care Teams Rfid Analyst Relationship Specialty Start Date End Date Hilda Butt MD 230 [place] [address] PCP - General Family Medicine 06/20/22 Stareashelly 04/08/25 documented as of this encounter
--- OUTSIDE RECORDS SUMMARY | 2025-08-01 16:19 | XMS_ITS | Encounter Summary ---
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) (HCC) Status post cerebrovascular accident Hilda Butt MD 230 [place] [address] Phone: tel: fax: [facility] Physical Therapy [address] [place] [address] Phone: tel: fax: Referral ID Status Reason Start Date Expiration Date V isits Requested Visits Authorized [id number] Closed Specialty Services Required 05/19/2025 05/19/2026 1 1 * Consultation (Routine) - Closed Specialty Diagnoses / Procedures Referred By Winter roa Referred To Contact Physical Therapy Diagnoses 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 [address] Phone: tel: fax: Referral ID Status Reason Start Date Expiration Date V isits Requested Visits Authorized [id number] Closed Specialty Services Required 05/19/2025 05/19/2026 1 1 Encounter Details Date Type Department Care Team (Late st Contact Info) Description 05/13/2025 Orders Only [facility] MEDICINE 230 [place] [address] Hilda Butt MD [address] [place] [address] Spastic hemiplegia of left nondominant side as [...] as of this encounter Care Teams Director Women Relationship Specialty Start Date End Date Hilda Butt MD 230 [place] [address] PCP - General Family Medicine 06/20/22 Stareashelly 04/08/25 documented as of this encounter
--- OUTSIDE RECORDS SUMMARY | 2025-08-01 16:19 | XMS_ITS | Encounter Summary ---
Author Organization [employer] Address 75 [facility] 7t [place] [address] Care Team Providers Care Statistical Technician Name Role Phone Hilda Butt MD Primary Care Provider [phone] Encounter Details Date Type Department Care Team ([facility] st Contact Info) Description 10/30/2023 Telephone [facility] MEDICINE 230 [place], [place] [phone] Janine Mccarthy, RN [address] [place], [place] [phone] Social History Tobacco Use Types Packs/Day Years [...] as of this encounter Care Teams Statistical Technician Relationship Specialty Start Date End Date Hilda Btut MD 230 [place] [address] PCP - General Family Medicine 06/20/22 Stareashelly 04/08/25 documented as of this encounter
--- OUTSIDE RECORDS SUMMARY | 2025-08-01 16:19 | XMS_ITS | Encounter Summary ---
Author Organization [employer] Address 75 [facility] 7t [place] [address] Care Team Providers Care Automatic Thread Winder Name Role Phone Hilda Butt MD Primary Care Provider [phone] Reason for Visit * Reason Comments Med Refill Encounter Details Date Type Department Care Team ([facility] st Contact Info) Description 07/28/2024 Refill [facility] MEDICINE 230 [place], [place] [phone] Hilda Butt MD 230 [place], [place] [phone] Social History Tobacco Use Types Packs/Day Years [...] documented as of this encounter Care Teams Automatic Thread Winder Relationship Specialty Start Date End Date Hilda Butt MD 230 [place] [address] PCP - General Family Medicine 06/20/22 Wilfrido 04/08/25 documented as of this encounter
--- OUTSIDE RECORDS SUMMARY | 2025-08-01 16:19 | XMS_ITS | Encounter Summary ---
Author Organization [employer] Address 75 [facility] 7t [place] [address] Care Team Providers Care Consultant Name Role Phone Hilda Butt MD Primary Care Provider [phone] Reason for Visit * Reason Onset Date Comments Med Refill 10/16/2023 Encounter Details Date Type Department Care Team ([facility] Contact Info) Description 10/16/2023 Refill [facility] 230 [place], [place] [phone] Anum Fox FNP Recurrent acute serous otitis [...] documented as of this encounter Care Teams Consultant Relationship Specialty Start Date End Date Hilda Butt MD [address] [place] [address] PCP - General Family Medicine 06/20/22 Wilfrido 04/08/25 documented as of this encounter
--- OUTSIDE RECORDS SUMMARY | 2025-08-01 16:19 | XMS_ITS | Encounter Summary ---
Author Organization [employer] Address 75 [facility] 7t [place] [address] Care Team Providers Care Real Estate Legal Assistant Name Role Phone Hilda Butt MD Primary Care Provider [phone] Encounter Details Date Type Department Care Team ([facility] st Contact Info) Description 10/15/2022 Orders Only [facility] MED & PEDS [address] [place] [address] Apple Stringer LPN Social History Tobacco Use [...] on filedocumented in this encounter Care Teams Real Estate Legal Assistant Relationship Specialty Start Date End Date Hilda Butt MD [address] [place] [address] PCP - General Family Medicine 06/20/22 [place] 04/08/25 documented as of this encounter
--- OUTSIDE RECORDS SUMMARY | 2025-08-01 16:19 | XMS_ITS | Encounter Summary ---
Author Organization [employer] Address 75 [facility] 7t [place] [address] Care Team Providers Care Network Coordinator Name Role Phone Hilda Butt MD Primary Care Provider [phone] Reason for Visit * Reason Comments Med Refill Encounter Details Date Type Department Care Team ([facility] st Contact Info) Description 04/15/2025 Refill [facility] MEDICINE 230 [place], [place] [phone] Hilda Butt MD 230 [place], [place] [phone] Recurrent acute serous otitis media of right [...] documented as of this encounter Care Teams Network Coordinator Relationship Specialty Start Date End Date Hilda Butt MD 230 [place] [address] PCP - General Family Medicine 06/20/22 Aveashelly 04/08/25 documented as of this encounter
--- OUTSIDE RECORDS SUMMARY | 2025-08-01 16:19 | XMS_ITS | Encounter Summary ---
Author Organization [employer] Address 75 [facility] 7t [place] [address] Care Team Providers Care Restaurant Assistant Name Role Phone Hilda Butt MD Primary Care Provider [phone] Reason for Visit * Reason Onset Date Comments PA 12/25/2022 Encounter Details Date Type Department Care Team ([facility] Contact Info) Description 12/25/2022 Telephone [facility] MEDICINE 230 [place], [place] [phone] Hilda Butt MD [address] [place], [place] [phone] PA Social History Tobacco Use Types Packs/Day [...] Lower back pain. Please contact pt at [phone] documented in this encounter Plan of Treatment Not on file documented as of this encounter Visit Diagnoses Not on filedocumented in this encounter Care Teams Restaurant Assistant Relationship Specialty Start Date End Date Hilda Butt MD [address] [place] [address] PCP - General Family Medicine 06/20/22 Wilfrido 04/08/25 documented as of this encounter
--- OUTSIDE RECORDS SUMMARY | 2025-08-01 16:19 | XMS_ITS | Encounter Summary ---
Author Organization [employer] Address 75 [facility] 7t [place] [address] Care Team Providers Care Cable Technician Name Role Phone Hilda Butt MD Primary Care Provider [phone] Reason for Visit * Reason Onset Date Comments Med Refill 06/24/2024 Encounter Details Date Type Department Care Team ([facility] st Contact Info) Description 06/24/2024 Refill [facility] MEDICINE 230 [place], [place] [phone] Hilda Butt MD 230 [place], [place] [phone] Social History Tobacco Use Types Packs/Day Years [...] documented as of this encounter Care Teams Cable Technician Relationship Specialty Start Date End Date Hilda Butt MD 230 [place] [address] PCP - General Family Medicine 06/20/22 Wilfrido 04/08/25 documented as of this encounter
--- OUTSIDE RECORDS SUMMARY | 2025-08-01 16:19 | XMS_ITS | Encounter Summary ---
Author Organization [employer] Address 75 [facility] 7t [place] [address] Care Team Providers Care Scrap Hooker Name Role Phone Hilda Butt MD Primary Care Provider [phone] Encounter Details Date Type Department Care Team ([facility] Contact Info) Description 05/11/2025 Telephone [facility] MEDICINE 230 [place], [place] [phone] Hilda Butt MD [address] [place], [place] [phone] Social History Tobacco Use Types Packs/Day Years [...] - 05/11/2025 4:35 PM EDT Tc from [facility] with [facility] calling to inform provider pt is being discharged from occupational therapy services. Adela stated pt is requesting outpatient referral. If any question [phone] documented in this encounter Plan of Treatment [...] documented as of this encounter Care Teams Scrap Hooker Relationship Specialty Start Date End Date Hilda Butt MD [address] [place] [address] PCP - General Family Medicine 06/20/22 Aveashelly 04/08/25 documented as of this encounter
--- OUTSIDE RECORDS SUMMARY | 2025-08-01 16:19 | XMS_ITS | Encounter Summary ---
Author Organization [employer] Address 75 [facility] 7t [place] [address] Care Team Providers Care Tape Duplicator Name Role Phone Hilda Butt MD Primary Care Provider [phone] Encounter Details Date Type Department Care Team ([facility] st Contact Info) Description 07/02/2024 Orders Only [facility] MEDICINE 230 [place], [place] [phone] Hilda Butt MD 230 [place], [place] [phone] Subacute cough (Primary Dx) Social History Tobacco [...] documented as of this encounter Care Teams Tape Duplicator Relationship Specialty Start Date End Date Hilda Butt MD [address] [place] [address] PCP - General Family Medicine 06/20/22 Wilfrido 04/08/25 documented as of this encounter
--- OUTSIDE RECORDS SUMMARY | 2025-08-01 16:19 | XMS_ITS | Encounter Summary ---
Author Organization [employer] Address [address] [facility] [address]t [place] [address] Care Team Providers Care Contract Runner Name Role Phone Hilda Butt MD Primary Care Provider [phone] Reason for Visit * Reason Onset Date Comments Medication Question 11/19/2022 Encounter Details Date Type Department Care Team ([facility] Contact Info) Description 11/19/2022 Telephone [facility] MEDICINE [address] [place], [place] [phone] Hilda Butt MD [address] [place], [place] [phone] Medication Question Social History Tobacco Use Types [...] regarding nebulizer medication Please contact Marina at [phone] documented in this encounter Plan of Treatment Not on file documented as of this encounter Visit Diagnoses Not on filedocumented in this encounter Care Teams Contract Runner Relationship Specialty Start Date End Date Hilda Butt MD [address] [place] [address] PCP - General Family Medicine 06/20/22 Stare[place]helly 04/08/25 documented as of this encounter
--- OUTSIDE RECORDS SUMMARY | 2025-08-01 16:19 | XMS_ITS | Encounter Summary ---
Author Organization [employer] Address [address] [facility] 7t [place] [address] Care Team Providers Care Bit Sander Name Role Phone Hilda Butt MD Primary Care Provider [phone] Encounter Details Date Type Department Care Team ([facility] st Contact Info) Description 10/31/2022 Orders Only [facility] MEDICINE [address] [place], [place] [phone] Hilda Butt MD [address] [place], [place] [phone] Blurry vision (Primary Dx) Social History Tobacco [...] disturbances documented in this encounter Care Teams Bit Sander Relationship Specialty Start Date End Date Hilda Butt MD [address] [place], [place] [phone] PCP - General Family Medicine 06/20/22 [place] 04/08/25 documented as of this encounter
--- OUTSIDE RECORDS SUMMARY | 2025-08-01 16:19 | XMS_ITS | Encounter Summary ---
Author Organization [employer] Address [address] [facility] 7t [place] [address] Care Team Providers Care Supervisor Orchard Name Role Phone Hilda Butt MD Primary Care Provider [phone] Encounter Details Date Type Department Care Team ([facility] st Contact Info) Description 08/19/2023 Abstract [facility] MEDICINE [address] [place], [place] [phone] Hilda Butt MD [address] [place], [place] [phone] Social History Tobacco Use Types Packs/Day Years [...] t he electric, gas, oil or water [employer] threatened to shut off services in your [...] as of this encounter Care Teams Supervisor Orchard Relationship Specialty Start Date End Date Hilda Butt MD [address] [place] [address] PCP - General Family Medicine 06/20/22 Stareashelly 04/08/25 documented as of this encounter
--- OUTSIDE RECORDS SUMMARY | 2025-08-01 16:19 | XMS_ITS | Encounter Summary ---
Author Organization [employer] Address [address] [facility] 7t [place] [address] Care Team Providers Care Mushroom Grower Name Role Phone Hilda Butt MD Primary Care Provider [phone] Encounter Details Date Type Department Care Team ([facility] st Contact Info) Description 08/19/2023 Abstract [facility] MEDICINE [address] [place], [place] [phone] Hilda Butt MD [address] [place], [place] [phone] Social History Tobacco Use Types Packs/Day Years [...] t he electric, gas, oil or water [employer] threatened to shut off services in your [...] documented as of this encounter Care Teams Mushroom Grower Relationship Specialty Start Date End Date Hilda Butt MD [address] [place] [address] PCP - General Family Medicine 06/20/22 Stareashelly 04/08/25 documented as of this encounter
--- OUTSIDE RECORDS SUMMARY | 2025-08-01 16:19 | XMS_ITS | Encounter Summary ---
Author Organization [employer] Address [address] [facility] 7t [place] [address] Care Team Providers Care Acetylene Torch Operator Name Role Phone Hilda Butt MD Primary Care Provider Reason for Visit * Reason Comments Med Refill Encounter Details Date Type Department Care Team ([facility] st Contact Info) Description 06/30/2024 Refill [facility] MEDICINE [address] [place], [place] [phone] Hilda Butt MD [address] [place], [place] [phone] Lower extremity edema Social History Tobacco Use [...] documented as of this encounter Care Teams Acetylene Torch Operator Relationship Specialty Start Date End Date Hilda Butt MD [address] [place] [address] PCP - General Family Medicine 06/20/22 [place]fr[place] 04/08/25 documented as of this encounter
--- OUTSIDE RECORDS SUMMARY | 2025-08-01 16:19 | XMS_ITS | Encounter Summary ---
Author Organization [employer] Address [address] [facility] 7t [place] [address] Care Team Providers Care Component Inspector Name Role Phone Hilda Butt MD Primary Care Provider [phone] Reason for Visit * Reason Onset Date Comments Med Refill 12/04/2023 Encounter Details Date Type Department Care Team ([facility] st Contact Info) Description 12/04/2023 Refill [facility] MEDICINE [address] [place], [place] [phone] Hilda Butt MD [address] [place], [place] [phone] Itchy skin of anus and genitals Social [...] documented as of this encounter Care Teams Component Inspector Relationship Specialty Start Date End Date Hilda Butt MD [address] [place] [address] PCP - General Family Medicine 06/20/22 Wilfrido 04/08/25 documented as of this encounter
--- OUTSIDE RECORDS SUMMARY | 2025-08-01 16:19 | XMS_ITS | Encounter Summary ---
Author Organization [employer] Address [address] [facility] 7t [place] [address] Care Team Providers Care Consular Officer Name Role Phone Hilda Butt MD Primary Care Provider [phone] Reason for Visit * Reason Onset Date Comments Med Life Line 08/06/2023 Encounter Details Date Type Department Care Team ([facility] Contact Info) Description 08/06/2023 Telephone [facility] MEDICINE [address] [place], [place] [phone] Hilda Butt MD [address] [place], [place] [phone] Med Life Line Social History Tobacco Use [...] PATIENT TODAY WILL SEND RX TO [facility]. [facility] DOES NOT ACCEPT [facility]. * Telephone Encounter - Ashley Sutton - 08/06/2023 1:10 PM EDT Tc from pt requesting status on paperwork for Med Life line machine due to her medical conditions. Task on 07/31/2023 Please contact pt at [phone] Kazakh Speaker documented in this encounter Plan of Treatment Not on file documented as of this encounter Visit Diagnoses Not on filedocumented in this encounter Additional Health Concerns Assessment Noted Time PHQ-9 Depression Total Score: 6 06/12/20 23 9:18 AM EDT documented as of this encounter Care Teams Consular Officer Relationship Specialty Start Date End Date Hilda Butt MD [address] [place] [address] PCP - General Family Medicine 06/20/22 Wilfrido 04/08/25 documented as of this encounter
--- OUTSIDE RECORDS SUMMARY | 2025-08-01 16:19 | XMS_ITS | Encounter Summary ---
Author Organization [employer] Address [address] [facility] 7t [place] [address] Care Team Providers Care Food Porter Name Role Phone Hilda Butt MD Primary Care Provider [phone] Encounter Details Date Type Department Care Team ([facility] st Contact Info) Description 11/20/2023 Abstract [facility] MEDICINE [address] [place], [place] [phone] Hilda Butt MD [address] [place], [place] [phone] Social History Tobacco Use Types Packs/Day Years [...] as of this encounter Care Teams Food Porter Relationship Specialty Start Date End Date Hilda Butt MD [address] [place] [address] PCP - General Family Medicine 06/20/22 Stareashelly 04/08/25 documented as of this encounter
--- OUTSIDE RECORDS SUMMARY | 2025-08-01 16:19 | XMS_ITS | Data Portability ---
Author Organization [facility], Main Office Address [address] [place] [address] [address] [place] [address] Care Team Providers Care Panama Hat Smearer Name Role Phone LINDA GOFF - 4TH [...] n 80 mg tablet 2024 025 [facility]09327, [address] [place], [place], [id number], 5 11:45:19 metoprolol tartrate 25 mg tablet 2024 025 [facility] [address] [place], [id number], 5 11:45:20 meclizine 12.5 mg tablet 2024 025 [facility], [address] [place], [id number], 5 11:45:20 Ventolin HFA 90 mcg/actuati on aerosol inhaler 2024 025 [facility], [address] [place], [id number], 5 11:45:12 fluticasone propionate 50 mcg/actuati on nasal spray,suspe nsion 2024 025 [facility], [address] [place], [id number], 5 11:45:17 montelukast 10 mg tablet 2024 025 [facility], [address] [place] [place], [id number], 5 11:45:14 sertraline 50 mg tablet 2024 025 [facility]20, [address] [place] [place], [id number], 5 11:45:15 trazodone 100 mg tablet 2024 025 [facility]357, [address] [place], [id number], 5 11:45:15 pantoprazol e 40 mg tablet,thomas yed release 2024 025 [facility]318, [address] [place] [place], [id number], 5 11:45:11 gabapentin 100 mg capsule 2024 025 [facility]36057, [address] [place] [place], [id number], 5 11:45:16 tizanidine 2 mg tablet 2024 025 [facility]385, [address] [place] [place], [id number], 5 11:45:17 furosemide 20 mg tablet 2024 025 [facility] #33849, [address] [place], [id number], 5 11:45:15 Entresto 24 mg-26 mg tablet 2024 025 [facility]44, [address] [place], [id number], 5 11:45:11 spironolact one 25 mg tablet 2024 025 [facility]74029, [address] [place], [id number], 5 11:45:18 Patient TargetsNo targets recorded. Patient InstructionsNo instructions recorded. Reason for Referral None Reported. Problems Name Problem SNOMED Code Status Onset Date Resolution Date Notes Provider Name and Address Organization Details Recorded Time Dysphagia 95988234 Active 2024 Jessica Taylor NP [address] [facility], [address], [place], [address], [facility] 5 15:19:53 Left hemiplegia 389954174 Active 2024 Jessica Taylor NP [address] [facility], [address], [place], [address], [facility] 5 15:20:52 Cerebrovascula r accident 489950481 Active 2024 Jessica Taylor NP [address] [facility], [address], [place], [address], [facility] 5 15:20:58 Carotid artery stenosis 60077664 Active 2024 Jessica Taylor NP [address] [facility], [address], [place], [address], [facility] 5 15:22:09 Congestive heart failure 31897036 Active 2024 Jessica Taylor NP [address] [facility], [address], [place], [address], [facility] 5 15:22:17 Chronic obstructive pulmonary disease 37278953 Active 2024 Jessica Taylor NP [address], [address], [place], [address], [facility] 5 15:22:23 Automatic implantable cardiac defibrillator in situ 203130546 Active 2024 Jessica Taylor NP [address], [address], [place], [address], [facility] 5 15:22:38 Bipolar disorder 67757737 Active 2024 Jessica Taylor NP [address], [address], [place], [address], [facility] 5 15:22:46 Hypoxia 283722388 Active 2024 Jessica Taylor NP [address], [place], [address], [facility] 5 15:24:15 Hypertensive disorder 24665255 Active 2024 Jessica Taylor NP [address], [address], [place], [address], [facility] 5 15:24:34 Hyperlipidemia 00578239 Active 2024 Jessica Taylor NP [address], [address], [place], [address], [facility] 5 15:24:44 Anemia 936585844 Active 2024 Jessica Taylor NP [address], [address], [place], [address], [facility] 5 15:40:32 Gastroesophage al reflux disease 368451075 Active 2024 Jessica Taylor NP [address], [address], [place], [address], [facility] 5 15:45:51 Problem Notes None recorded. Medical Equipment None Reported. Allergies Allergen ID Allergen Name Allergen Category Reaction Reaction Severity Criticality Documentation Date Start Date Code Code System Note Provider Name and Address Organization Details Recorded Time 23194 lisinopri l medicatio n cough Not available low 12/09/20242020 93726 RxNorm Florina Nino MD [address] [facility], [address], [place], [address], [facility] 5 20:01:39 Medications Name Sig Start Date [...] Updated DateTime 5 149.86 cm 29.5 kg/m2 53735.4 9 g 78 /min 20 /min 97 [degF] 98 % 98 % 137/92 mm[Hg] Jessica Taylor NP [address], [place], [address], [facility] 5 16:38:59 Date Recorded Body height Body weight Heart rate Respiratory rate Body temperature Oxygen saturation Oxygen saturation in Arterial blood by Pulse oximetry Systolic And Diastolic Provider Name and Address Organization Details Last Updated DateTime 5 149.86 cm 01890.4 9 g 71 /min 18 /min 97 [degF] 98 % 98 % 132/74 mm[Hg] Jessica Taylor NP [address], [place], [address], [facility] 5 09:59:49 Date Recorded Body height Body mass index (BMI) Body weight Heart rate Respiratory rate Body temperature Oxygen saturation Oxygen saturation in Arterial blood by Pulse oximetry Systolic And Diastolic Provider Name and Address Organization Details Last Updated DateTime 5 149.86 cm 29.5 kg/m2 22535.4 9 g 71 /min 18 /min 97 [degF] 98 % 98 % 132/74 mm[Hg] Jessica Taylor NP [address] , [address], [place], [address], [facility] 5 09:24:05 Date Recorded Body height Heart rate Respiratory rate Body temperature Oxygen saturation Oxygen saturation in Arterial blood by Pulse oximetry Systolic And Diastolic Provider Name and Address Organization Details Last Updated DateTime 5 149.86 cm 71 /min 18 /min 97 [degF] 98 % 98 % 132/74 mm[Hg] MARY SHARP NP [address] , [address], [place], [address], [facility] 5 11:43:22 Date Recorded Body height Body weight Heart rate Respiratory rate Body temperature Oxygen saturation Oxygen saturation in Arterial blood by Pulse oximetry Systolic And Diastolic Provider Name and Address Organization Details Last Updated DateTime 5 149.86 cm 61786.6 7 g 71 /min 18 /min 97 [degF] 98 % 98 % 132/74 mm[Hg] Jessica Taylor NP [address] [facility], [address], [place], [address], [facility] 5 09:48:35 Social History Question Answer Notes LastModified by Organizat ion Details LastModified Time Tobacco Smoking Status Former Smoker Jessica Taylor NP [address] [facility], [address], [place], [address], [facility] 12/09/2024 15:31:49 Do You Have An Advance Directive? Yes Information not available 12/09/2024 What Is Your Code Status? Full Code No Dialysis Information not available 12/09/2024 Where Do You Live? Apartment Going To Be Moving To [address]st [address] D/c Information not available 02/22/2025 Legal Guardian? No Informati on not available 02/22/2025 Do You Have A Medical Power Of Subeditor? Yes Information not available 02/22/2025 What Was [...] B, unspecified formulation 4 [facility] 15:28:00 Hep B, unspecified formulation 4 completed Rossi Celaya [facility] 12/09/2024 15:28:09 Hep B, unspecified formulation 4 completed Rossi Celaya [facility] 12/09/2024 15:28:17 Tdap 4 completed Rossi Celaya [facility] 12/09/2024 15:29:05 Tdap 4 completed Rossi Celaya [facility] 12/09/2024 15:29:14 Pneumococcal conjugate PCV 13 4 completed Rossi Celaya [facility] 12/09/2024 15:29:28 pneumococcal polysaccharide PPV23 1 completed Rossi Celaya [facility] 12/09/2024 15:29:45 influenza, unspecified formulation 3 completed Rossi Celaya [facility] 12/09/2024 15:30:08 influenza, unspecified formulation 4 completed [facility] 12/09/2024 15:30:14 Hep A, unspecified formulation 4 completed Rossi Celaya [facility] 12/09/2024 15:30:29 Hep A, unspecified formulation 4 completed Rossi Celaya [facility] 12/09/2024 15:30:37 SARS-COV-2 (COVID-19) vaccine, UNSPECIFIED 1 completed Rossi Celaya [facility] 12/09/2024 15:31:01 SARS-COV-2 (COVID-19) vaccine, UNSPECIFIED 2 completed Rossi Celaya [facility] 12/09/2024 15:31:08 SARS-COV-2 (COVID-19) vaccine, UNSPECIFIED 3 completed Rossi [facility] 12/09/2024 15:31:17 SARS-COV-2 (COVID-19) vaccine, UNSPECIFIED 4 completed Rossi [facility] 12/09/2024 15:31:25 z[facility], unspecified formulation [facility] 15:31:41 zoster, unspecified formulation 2 completed Rossi [facility] 12/09/2024 15:31:51 Past Encounters Encounter ID Performer Location Encounter Start Date Encounter Closed Date Diagnosis/Indication Diagnosis SNOMED-CT Code Diagnosis ICD10 Code Diagnosis IMO Codes Diagnosis Note [id number] Jessica Taylor, BRITTANEY [address] [address] 12/09/2024 15:03:43 12/10/2024 13:27:31 Carotid artery stenosis 79095950 I65.29 sp right carotid endarterec jaida, performed on 11/22/24. She suffered a right carotid dissection , hematoma, as well as a CVA, which left her with left sided hemiplegia and dysphagia now on tube feedsmonit or s/s of infectionv itals qd x 2 weeksbmp and cbc weekly x 3 weeks Cerebrovas cular accident 042303962 I63.9 sp right carotid endarterec jaida, performed on 11/22/24. She suffered a right carotid dissection , hematoma, as well as a CVA, which left her with left sided hemiplegia and dysphagia now on tube feedsPT OT eval and treatsuppo rtive careturn and position freqmonito r Left hemiplegia 81633038 8 G81.90 see above Dysphagia 13243988 R13.1 0 NPOmeds through g tubegoal:J evity [...] gtube here.kat monk to followmoni tor Hypoxia 377720734 G47.34 Pt with intubation rt hypoxia now resolvedmo nitor for sequelae Congestive heart failure 64398579 I50.9 chffurosem rashad 20 mg po qdmonitor bmp and s/s of Chronic ob structive pulmonary disease 45200110 J44.9 hx montelukas t 10 mg po qhscetiriz ine 10 mg po qd prnalbuter ol inhaler 2 inh q 6 hrs prn sobmonitor Automatic implantable cardiac defibrillator in situ 314057196 Z95.810 has cad with cath in past with LBBB and states pacemaker and defibrilla tor in hxmonitor Hypertensive disorder 38 564276 I10 amiodarone 400 mg po bid x 7days, then 200 mg po qd for 21 days, then stopentres to 24-36 po bidmetopro lol succinate 50 mg po qdspirolac tone 25 mg po qdmonitor Anemia 383680098 D64.9 hx offerrous sulfate 325 mgpo qd with vit c qdmonitor cbc and for s/s of bleeding Hyperlipidemia 37795277 E78.5 asa 81 mg qdatorvast atin 80 mg qhsentrest o 24-36 po bidmonitor Bipolar disorder 1958709 4 F31.9 hx ofsertrali ne 50 mg qdmonitor [id number] [facility] [address] 12/13/2024 08:52:27 12/14/2024 15:40:23 Unsteady when walking 74061848 R26.89 PT OT eval and treatto determine baseline Carotid ar jonas stenosis 67805363 I65.21 see HPIright carotid endarterec jaida last fered carotid dissection and CVA with resultant left hemiplegia and dysphagia requiring patient to be NPO with g-tube placedlipi tor 80 mg qdasa 81 mg qdupdate surgery with concerns Cerebrovas cular accident 117877666 I63.031 resultant left hemiplegia and dysphagiaP T OT eval and treatmonit or for improvemen t in function Left hemiplegia 22525147 8 G81.04 see above Dysphagia 81224765 I69.3 91 currently NPOg-tube dependents peech and dietary to followcont inue tube feeds Hypoxia 113047033 G47.34 Pt with intubation rt hypoxia now resolvedmo nitor for sequelae Congestive heart failure 56735728 I50.22 lasix 20 mg qdentresto 24-26 mg bidmonitor respirator y and fluid status Chronic ob structive pulmonary disease 38510626 J41.1 carrying dxcontinue out patient medsmonito r respirator y status and albuterol utilizatio n Automatic implantable cardiac defibrillator in situ 922519853 Z95.810 currently maintained onamiodaro ne taper, hx LBBBknown cad continued on asa, statin, and beta yamini Hypertensive disorder 38 866130 I10 entresto 24-36 po bidmetopro lol 50 mg po qdlasix 20 mg qdspirolac tone 25 mg po qdmonitor bp and need to titrate Anemia 850083048 D50.8 monitor cbciron studies prncontinu e supplement s Bipolar disorder 4317451 4 F31.89 carrying dx added to PMHzoloft 50 mg qdmonitor sxpsych eval prn Coronary arteriosclerosis 31818839 I25.10 lipitor 80 mg qdasa 81 mg qdmetoprol ol 50 mg qdmonitor sx [id number] Jessica Taylor NP [address] [address] 12/16/2024 10:30:08 12/17/2024 16:22:16 Carotid artery stenosis 02810172 I65.29 sp right carotid endarterec jaida, performed on 11/22/24. She suffered a right carotid dissection , hematoma, as well as a CVA, which left her with left sided hemiplegia and dysphagia on tube feedscontm onitor s/s of infection, steri strips no offvitals qd x 2 weeksfu with surgery prnbmp and cbc weekly x 3 weeks Cerebrovas cular accident 100544055 I63.9 sp right carotid endarterec jaida, performed on 11/22/24. e suffered a right carotid dissection , hematoma, as well as a CVA, which left her with left sided hemiplegia and dysphagia on tube feedsPT OT eval and treatsuppo rtive careturn and position freqassist jon with adlsmonito r Left hemiplegia 66061349 8 G81.94 see above Dysphagia 81834566 R13.1 0 NPOmeds through g tubecont g [...] to follow closelymon itor Congestive heart failure 63515166 I50.9 chffurosem rashad 20 mg po qdmonitor bmp and s/s of chf Hypertensive disorder 38 546061 I10 contamioda luanne 400 mg po bid x 7days, 200 mg po qd for 21 days, then stop for taperentre sto 24-36 po bidmetopro lol succinate 50 mg po qdspirolac tone 25 mg po qdmonitor Anemia 310278160 D64.9 hx offerrous sulfate 325 mg po qd with vit c qdmonitor cbc and for s/s of bleeding Bipolar disorder 1831393 4 F31.9 hx ofsertrali ne 50 mg qdmonitor Candidiasis of mouth 797 84730 B37.0 nystatin swish and spit x 10 daysenhanc ed teethbrush ing and oral caremouth swab with mouthwash at bedsidemon itor Chronic pain 88085209 G8 9.29 pt with pain to lower legs(pt states tyl does not work and doesn't want it)states she was on gabapentin and ibuprofen prior at home that worked welltyl prnibuprof en 400 mg gtube bidgabapen tin 100 mg tab gtube bidmonitor for relief and adjustment [id number] [facility] [address] 12/17/2024 16:03:43 12/21/2024 09:59:18 Bipolar disorder 15594432 F31.9 hx ofsertrali ne 50 mg qdmonitor Insomnia 844956837 G47.0 0 12/17 start melatonin 5 mg po qhspsych consult [id number] MARY SHARP NP [address] [address] 12/21/2024 11:17:22 12/23/2024 12:10:51 Insomnia 650856532 G47.00 Started melatonin 5 mg po qhs on 12/17 - not effective - increase to 10 mg q hsReferred to psychMonit or Bipolar disorder 5751662 4 F31.9 hx ofcontinue sertraline 50 mg qdCurrentl y with issues sleeping - melatonin added and referred to Psych[facility] or Candidiasis of mouth 797 03829 B37.0 nystatin swish and spit x 10 days addedMaint ain oral care including brushing tonguemoni tor Chronic pain 40534723 G8 9.29 pt with pain to lower [...] relief and adjustment Carotid ar jonas stenosis 13254470 I65.29 sp right carotid endarterec jaida, performed on 11/22/24. She suffered a right carotid dissection , hematoma, as well as a CVA, which left her with left sided hemiplegia and dysphagia on tube feedscontm onitor s/s of infection, steri strips no offvitals qd x 2 weeksfu with surgery prnbmp and cbc weekly x 3 weeks Cerebrovas cular accident 445129949 I63.9 sp right carotid endarterec jaida, performed [...] assessment and pain mgmt.Monit or Left hemiplegia 60735051 8 G81.94 see above Dysphagia 15507071 R13.1 0 NPOmeds through g tubecont g tube feedings - currently on jevity 1.5 @ 50 cc/h x20 h per daydietici an followingS LP eval and tx as indicatedM onitor labs, weights, s/s aspiration . Congestive heart failure 70902026 I50.9 Continue:f urosemide 20 mg po qdentresto 24-36 po bidspirola ctone 25 mg po qdmonitor bmp and s/s of chf Hypertensive disorder 38 601943 I10 contentres to 24-36 po bidmetopro lol succinate 50 mg po qdspirolac tone 25 mg po qdlasix 20 mg qdmonitor Anemia 360078697 D64.9 hx offerrous sulfate 325 mg po qd with vit c qdmonitor cbc and for s/s of bleeding Automatic implantable cardiac defibrillator in situ 579501152 Z95.810 currently maintained onamiodaro ne taper, hx LBBBknown cad continued on asa, statin, and beta yamini [id number] [facility] [address] 12/23/2024 08:44:39 12/24/2024 14:25:29 Insomnia 778913557 G47.00 contmelato haydee 10 mg q hs, recently increasedR eferred to psychMonit orconsider trazodone if no improvemen t by next week Cerebrovas cular accident 067152457 I63.9 sp right carotid endarterec jaida, performed [...] assessment and pain mgmt.Monit or Left hemiplegia 32335753 8 G81.94 see above Candidiasis of mouth 797 42837 B37.0 nystatin swish and spit x 10 days total, improvingM aintain oral care including brushing tonguemoni tor Dysphagia 54521672 R13.1 0 NPOmeds through g tubecont g tube feedings - currently on jevity 1.5 @ 50 cc/h x20 h per daydietici an followingS LP eval and tx as indicatedM onitor labs, weights, s/s aspiration . Bipolar disorder 9768276 4 F31.9 hx ofcontinue sertraline 50 mg qdmelatoni n 10 mg po qhsreferre d to [facility] or Chronic pain 34015445 G8 9.29 pt denies pain this am Currently on:tyl 650 mg po tidibuprof en 400 mg gtube tidgabapen tin 100 mg tab gtube tidRefer to Dr. Flores for eval and tx.monitor for relief and adjustment Carotid ar jonas stenosis 85535778 I65.29 sp right carotid endarterec jaida, performed [...] reorder for next week Congestive heart failure 12934146 I50.9 Continue:f urosemide 20 mg po qdentresto 24-36 po bidspirola ctone 25 mg po qdmonitor bmp and s/s of chf Anemia 670457297 D64.9 hx offerrous sulfate 325 mg po qd with vit c qdmonitor cbc and for s/s of bleeding [id number] Jessica Taylor NP [address] [address] 12/29/2024 14:46:44 12/30/2024 16:28:34 Cerebrovascular accident 042269718 I63.9 sp right carotid endarterec jaida, performed [...] further assessment and pain mgmt.Monit or Insomnia 543214514 G47.0 0 contmelato haydee ineffectiv e and dc'dstarte d on trazodone 50 mg po qhs per psychRefer red to psychMonit or Left hemiplegia 22168319 8 G81.94 see above Dysphagia 32179278 R13.1 0 NPOmeds through g tubecont g tube feedings - currently on jevity 1.5 @ 50 cc/h x20 h per daydietici an followingS LP eval and tx as indicatedM onitor labs, weights, s/s aspiration . Bipolar disorder 8648517 4 F31.9 hx ofcontinue sertraline 50 mg qdmelatoni n 10 mg po qhstrazodo ne 50 mg po qhs for insomniare ferred to [facility] or Chronic pain 59626458 G8 9.29 pt denies pain todayCurre ntly on:tyl 650 mg po tidibuprof en 400 mg gtube tidgabapen tin 100 mg tab gtube tidRefer to Dr. Flores for eval and tx.monitor for relief and adjustment Carotid ar jonas stenosis 14718756 I65.29 sp right carotid endarterec jaida, performed [...] reorder for next week Congestive heart failure 31971796 I50.9 Continue:f urosemide 20 mg po qdentresto 24-36 po bidspirola ctone 25 mg po qdmonitor bmp and s/s of chf Anemia 615170225 D64.9 hx offerrous sulfate 325 mg po qd with vit c qdmonitor cbc and for s/s of bleeding Recurrent falls 88253306 2 R29.6 fall during transfer today on 12/29 without injuriesmo nitor for injuries/p ainsupport viv carebed rails in place for left sided weakness to help herself movemonito r closely with protocol [id number] Jessica Taylor NP [address] [address] 12/30/2024 13:16:29 01/04/2025 09:05:35 Insomnia 311508592 G47.00 seems to be helpingcon ttrazodone 50 mg po qhs per psychRefer red to psychMonit or Cerebrovas cular accident 589938105 I63.9 sp right carotid endarterec jaida, performed [...] assessment and pain mgmt.Monit or Left hemiplegia 11204269 8 G81.94 see above Dysphagia 42161856 R13.1 0 NPOmeds through g tubecont g tube feedings - currently on jevity 1.5 @ 50 cc/h x20 h per daydietici an followingS LP eval and tx as indicatedM onitor labs, weights, s/s aspiration . Bipolar disorder 7901757 4 F31.9 hx ofcontinue sertraline 50 mg qdtrazodon e 50 mg po qhs for insomniare ferred to [facility] or Chronic pain 95662178 G8 9.29 controlled Currently on:tyl 650 mg po tidibuprof en 400 mg gtube tidgabapen tin 100 mg tab gtube tidRefer to Dr. Flores for eval and tx.monitor for relief and adjustment Carotid ar jonas stenosis 99443554 I65.29 sp right carotid endarterec jaida, performed [...] just the baby asa Congestive heart failure 47771201 I50.9 Continue:f urosemide 20 mg po qdentresto 24-36 po bidspirola ctone 25 mg po qdmonitor bmp and s/s of chf Anemia 942878045 D64.9 stablehx offerrous sulfate 325 mg po qd with vit c qdmonitor cbc and for s/s of bleeding Candidiasis of mouth 797 00387 B37.0 12/30 restart nystatin swish and spit x 10 days total, improving start peridex mouthwash 15 ml apply to tongue throughout day with swab, provide in amMaintain oral care including brushing tonguemoni tor [id number] Jessica Taylor NP [address] [address] 01/03/2025 08:35:31 01/04/2025 11:27:30 Candidiasis of mouth 92986225 B37.0 contnystat in swish and spit x 10 days total, improvingp eridex mouthwash 15 ml apply to tongue throughout day with swab, provide in amMaintain oral care including brushing tonguemoni tor Insomnia 917336932 G47.0 0 seems to be helping3 0 increase trazodone 50 mg to 75 mg po qhs per psychRefer red to psych[facility]it or Carotid ar jonas stenosis 33691211 I65.29 sp right carotid endarterec jaida, performed [...] just the baby asa Cerebrovas cular accident 776420602 I63.9 sp right carotid endarterec jaida, performed [...] assessment and pain mgmt.Monit or Left hemiplegia 36904877 8 G81.94 see above Dysphagia 01630748 R13.1 0 01/01 seen by speech and started on reg diet, puree, and honey consistenc ymeds through g tubecont g tube feedings - currently on jevity 1.5 @ 50 cc/h x20 h per daydietici an followingS LP eval and tx as indicatedM onitor labs, weights, s/s aspiration . Chronic pain 61846665 G8 9.29 controlled Currently on:tyl 650 mg po tidibuprof en 400 mg gtube tid3/10 increase gabapentin from 100 mg to 200 mg tube tid3/10 add muscle rub cream tid to left kne[place] get ekg in 2 weeks with hx of cardiac disease on amiodarone apap tidRefer to Dr. Flores for eval and tx.monitor for relief and adjustment [id number] Jessica Taylor NP [address] [address] 01/05/2025 13:15:00 01/06/2025 14:55:19 Insomnia 222047062 G47.00 conttrazod one 75 mg po qhsReferre d to psychMonit or Chronic pain 91034660 G8 9.29 controlled Currently on:tyl 650 mg po tidibuprof en 400 mg gtube tidgabapen tin from 200 mg tube tidapap tidmuscle rub cream tid to left [place] get ekg in 1 weeks with hx of cardiac disease on amiodarone Refer to Dr. Flores for eval and tx.monitor for relief and adjustment Candidiasis of mouth 797 02403 B37.0 contnystat in swish and spit x 10 days total, improving, to complete on 3/16peride x mouthwash 15 ml apply to tongue throughout day with swab, provide in amMaintain oral care including brushing tonguemoni tor Carotid ar jonas stenosis 26590189 I65.29 sp right carotid endarterec jaida, performed [...] baby asa, awaiting notes Cerebrovas cular accident 859870915 I63.9 sp right carotid endarterec jaida, performed on 11/22/24.Sh e suffered a right carotid dissection , hematoma, as well as a CVA, which left her with left sided hemiplegia and dysphagia on tube feedssee pain abovePT OT SLPASA 81 mg qd for acatorvast atin [address] qdDr. Mark for further assessment and pain mgmt.Monit or Left hemiplegia 75776781 8 G81.94 see above Dysphagia 35440752 R13.1 0 started on reg diet, puree, and honey consistenc ymeds through g tubecont g tube feedings - currently on jevity 1.5 @ 50 cc/h x20 h per day seat coverer following and titrating now she is eatingSLP eval and tx as indicatedM onitor labs, weights, s/s aspiration . Bipolar disorder 1132644 4 F31.9 hx ofcontinue sertraline 50 mg qdtrazodon e 75 mg po qhs for insomniare ferred to Psychmonit or Congestive heart failure 75442480 I50.9 Continue:f urosemide 20 mg po qdentresto 24-36 po bidspirola ctone 25 mg po qdmonitor bmp and s/s of chf Anemia 495582829 D64.9 stablehx offerrous sulfate 325 mg po qd with vit c qdmonitor cbc and for s/s of bleeding Recurrent falls 06196641 2 R29.6 monitor for injuries/p ainsupport viv carebed rails in place for left sided weakness to help herself movemonito r closely with protocol [id number] Jessica Taylor NP [facility] [address] [facility] [address] 01/12/2025 08:32:32 01/17/2025 08:47:39 Dysphagia 40343274 R13.10 now with new cough ? related to eating01/12 start mucinex 600 mg po bid x 03lobp8/19 cxr for cough ro asp01/12 speech to evalcontre g diet, puree, and honey consistenc ymeds through g tubecont g tube feedings - currently on jevity 1.5 @ 42 cc/h x12 h per day seat coverer which is 50% reduction, plan to dc in 1-2 weeks if doing wellfollow ing and titrating now she is eatingSLP eval and tx as indicatedM onitor labs, weights, s/s aspiration . Chronic pain 39161098 G8 9.29 controlled Currently on:tyl 650 mg po tidibuprof en 400 mg gtube tidgabapen tin from 200 mg tube tidapap tidmuscle rub cream tid to left kneewill get ekg in 1 weeks with hx of cardiac disease on amiodarone Refer to Dr. Flores for eval and tx.monitor for relief and adjustment Candidiasis of mouth 797 96686 B37.0 resolvedco mpleted nystatin swish and spit x 10 days totalperid ex mouthwash 15 ml apply to tongue throughout day with swab, provide in amMaintain oral care including brushing tonguemoni tor Carotid ar jonas stenosis 59490019 I65.29 sp right carotid endarterec jaida, performed [...] baby asa, awaiting notes Cerebrovas cular accident [id number] I63.9 sp right carotid endarterec jaida, performed on 11/22/24.Sh ashley suffered a right carotid dissection , hematoma, as well as a CVA, which left her with left sided hemiplegia and dysphagia on tube feedssee pain abovePT OT SLPASA 81 mg qd for acatorvast atin [address] mg qdDr. Flores for further assessment and pain mgmt.Monit or Left hemiplegia 04901052 8 G81.94 see above Bipolar disorder 3502222 4 F31.9 hx ofcontinue sertraline 50 mg qdtrazodon e 75 mg po qhs for insomniare ferred to Psychmonit or Congestive heart failure 57065397 I50.9 Continue:f urosemide 20 mg po qdentresto 24-36 po bidspirola ctone 25 mg po qdmonitor bmp and s/s of chf Cough 99563335 R05.9 now with new cough ? related to eating01/12 start mucinex 600 mg po bid x 17zgze8/19 cxr for cough ro asp01/12 speech to eval for new coughcont robitussin prnmonitor [id number] Jessica Taylor NP [address] [address] 01/13/2025 09:17:58 01/17/2025 09:21:59 Cough 50384666 R05.9 now with new cough ? related to eating01/12 start mucinex 600 mg po bid x 64qscp9/19 cxr for cough ro asp3/19 speech to eval for new cough01/13 xray still pendingcon t robitussin prnmonitor Dysphagia 52736084 R13.1 0 now with new cough ? related to eating01/12 start mucinex 600 mg po bid x 61tgkl7/19 cxr for cough ro asp19 speech to evalcontre g diet, puree, and honey consistenc ymeds through g tubecont g tube feedings - currently on jevity 1.5 @ 42 cc/h x12 h per day seat coverer which is 50% reduction, plan to dc in 1-2 weeks if doing wellfollow ing and titrating now she is eatingSLP eval and tx as indicatedM onitor labs, weights, s/s aspiration . Chronic pain 70681435 G8 9.29 controlled , reports still having [...] for relief and adjustment Cerebrovas cular accident [id number] I63.9 sp right carotid endarterec jaida, performed on 11/22/24.Sh ashley suffered a right carotid dissection , hematoma, as well as a CVA, which left her with left sided hemiplegia and dysphagia on tube feedssee pain abovePT OT SLPASA 81 mg qd for acatorvast atin [address] mg qdDr. Flores for further assessment and pain mgmt.Monit or Left hemiplegia 03291401 8 G81.94 see above [id number] Jessica Taylor NP [address] [address] 01/20/2025 10:37:44 01/24/2025 12:55:51 Cough 43648101 R05.9 now with new cough ? related to eatingcont mucinex 600 mg po bid for a few more daysspeech to eval for new cough and fees done on 01/19 see hpi01/13 xray still unremarkab lecont robitussin prnmonitor Dysphagia 47841012 R13.1 0 now with new cough ? related to eating see hpi above contreg diet, puree, and honey consistenc ymeds through g tube01/20 dc g tube feedings - currently on jevity 1.5 @ 42 cc/h x12 h per day seat coverer which is 50% reduction [employer] eval and tx as indicatedM onitor labs, weights, s/s aspiration .monitor for need to dc gtube in one to two months when eating and gaining weight consistent ly Chronic pain 53148315 G8 9.29 controlled , reports still having [...] for relief and adjustment Cerebrovas cular accident [id number] I63.9 sp right carotid endarterec jaida, performed on 11/22/24.Sh ashley suffered a right carotid dissection , hematoma, as well as a CVA, which left her with left sided hemiplegia and dysphagia on tube feedssee pain abovePT OT SLPASA 81 mg qd for acatorvast atin 80 mg qdDrJaiden Flores for further assessment and pain mgmt.Monit or Left hemiplegia 22173718 8 G81.94 see above [id number] Jessica Taylor NP [facility] [address] [facility] [place] [address] 01/27/2025 11:29:47 01/31/2025 08:39:10 Cough 38928862 R05.9 resolved xray still unremarkab lecont robitussin prnmonitor Dysphagia 16074396 R13.1 0 contreg diet, puree, and honey [...] and gaining weight consistent ly Chronic pain 25074967 G8 9.29 controlled Currently on:tyl 650 mg po tidibuprof en 400 mg gtube tidgabapen tin from 200 mg tube tidapap tidmuscle rub cream tid to left kneeRefer to Dr. Flores for eval and tx.tizanid ine and leave prn q 8 hours prn for spasticity , did not georges the sched dosesmonit or for relief and adjustment Cerebrovas cular accident [id number] I63.9 sp right carotid endarterec jaida, performed on 11/22/24.Cole ramirez suffered a right carotid dissection , hematoma, as well as a CVA, which left her with left sided hemiplegia and dysphagia on tube feedssee pain abovePT OT SLPASA 81 mg qd for acatorvast atin [address] qdDr[address] Flores for further assessment and pain mgmt.Monit or Left hemiplegia 28866309 8 G81.94 see above [id number] Jessica Taylor NP [facility] [address] [place] [address] 02/04/2025 11:17:37 02/07/2025 13:13:20 Dysphagia 31029509 R13.10 contreg diet, puree, and honey consistenc [...] and gaining weight consistent ly Chronic pain 12038253 G8 9.29 no painContty l 650 mg po tidibuprof en 400 mg po tidgabapen tin from 200 mg po tidapap tidmuscle rub cream tid to left kneeRefer to Dr. Flores for eval and tx.tizanid ine and leave prn q 8 hours prn for spasticity , did not georges the sched dosesmonit or for relief and adjustment Cerebrovas cular accident [id number] I63.9 sp right carotid endarterec jaida, performed on 11/22/24.Sh ashley suffered a right carotid dissection , hematoma, as well as a CVA, which left her with left sided hemiplegia and dysphagia on tube feedssee pain abovePT OT SLPASA 81 mg qd for acatorvast atin 80 mg qdDr. Flores for further assessment and pain mgmt.Monit or Left hemiplegia 27158378 8 G81.94 see above [id number] Jessica Taylor NP [facility] [address] [place] [address] 02/09/2025 09:59:15 02/14/2025 09:40:51 Chronic pain 49665496 G89.29 no painContty l 650 mg po tidibuprof en 400 mg po tidgabapen tin from 200 mg po tidapap tidmuscle rub cream tid to left kneeRefer to Dr. Flores for eval and tx.tizanid ine and leave prn q 8 hours prn for spasticity , did not georges the sched dosesmonit or for relief and adjustment Dysphagia 39007829 R13.1 0 contreg diet, puree, and honey consistenc yg tube feeds stopped >2 weeks ago and gaining weight, and doing wellcont g tube flush to 30cc qd for patencytak ing po meds wellSLP eval and tx as indicateds [place] [facility] [place] weights, s/s aspiration .monitor for need to dc gtube in one to two months when eating and gaining weight consistent ly Cerebrovas cular accident [id number] I63.9 sp right carotid endarterec jaida, performed on 11/22/24.Cole ramirez suffered a right carotid dissection , hematoma, as well as a CVA, which left her with left sided hemiplegia and dysphagia on tube feedssee pain abovePT OT SLPcontASA 81 mg qd for acatorvast atin 80 mg qdDrJaiden Flores following for pain mgmt.Monit or Left hemiplegia 95601382 8 G81.94 see above Nasal congestion 9225135 0 R09.81 22591 reports nasal congestion and occ cough for 1.5 weekslast cxr 01/13 unremarkab le02/09alre surya on cetirizine 10 mg po qam and singularst artrobitus sin q 4 hrs prnmucinex dm 1 tab po bid x 7 dayscovid testmonito r [id number] MARY SHARP NP [address] [address] 02/15/2025 13:35:56 02/18/2025 12:45:27 Chronic pain 04783785 G89.29 no painContty l 650 mg po tidibuprof en 400 mg po tidgabapen tin from 200 mg po tidapap tidmuscle rub cream tid to left kneeReferr ed to Dr. Flores for eval and tx.tizanid ine q 8 hours prn for spasticity , did not georges the sched dosesmonit or for relief and adjustment Dysphagia 17708197 R13.1 0 contreg diet, puree, and honey consistenc yg tube feeds stopped >2 weeks ago and gaining weight, and doing wellcont g tube flush to 30cc qd for patencytak ing po meds wellSLP eval and tx as indicateds [place] [facility] [place]monito r weights, s/s aspiration .monitor for need to dc gtube in one to two months when eating and gaining weight consistent ly Cerebrovas cular accident [id number] I63.9 sp right carotid endarterec jaida, performed on 11/22/24.Sh ashley suffered a right carotid dissection , hematoma, as well as a CVA, which left her with left sided hemiplegia and dysphagia on tube feedssee pain abovePT OT SLPcontASA 81 mg qd for acatorvast atin [address]dDr[address] Strafford following for pain mgmt.Monit or Left hemiplegia 11030742 8 G81.94 see above Injury of nail 027637163 S99.822A 03081597 Partially avulsed left 4th toenail, clean, no bleeding, minor pink inflammati on of toe. Toe nail very was long, able to be easily trimmed shorter with curved edges to reduce chance of snagging on clothing and socks. Covered with band aid as well to reduce trauma to nailbed - change qd, monitor for s/s infection. Refer to podiatry for possible nail removal. [id number] Florina Nino MD [address] [address] 02/22/2025 19:59:58 05/19/2025 10:57:35 Injury of nail 565115791 S99.822A 51139954 Partially avulsed left 4th toenail, clean, no [...] podiatry for possible nail removal. Chronic pain 51276625 G8 9.29 As above. Dysphagia 74378473 R13.1 9 968640 Improving. Now eating reg diet with thin liquids and taking meds po.Will need to arrange removal of G-Tube.Con tinue [employer] tx prn.Monito r for aspiration . Carotid ar jonas stenosis 53498409 I65.29 As aboveF/U with Dr De Anda as planned. Bipolar disorder 0397064 4 F31.89 6698486 Mood stable.Con tinue sertraline 50 mg qd and trazodone 75 mg qhs.Monito r mood.Consu lt psych prn Anemia 450609306 D64.9 StableCont inue ferrous sulfate 325 mg qd with vit c 250 mg qd for absorption .Monitor labs Chronic ob structive pulmonary disease 87900532 J41.1 No current sxs.Contin ue montelukas t 10 mg qd, cetirizine 10 mg qd and albuterol MDI 1 puff q 6 hrs prn.Monito r resp status Coronary arteriosclerosis 96099773 I25.10 No recent sxs.Contin ue meds as above.Lorna tor sx Automatic implantable cardiac defibrillator in situ 055902804 Z95[address]Lorna torF/U with cardio as planned. Hypertensive disorder 38 684213 I10 Only one BP charted in past month, with sl elevated DBP.Contin ue meds as above and request weekly BPs. 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 Continue ASA 81 mg qd and atorvastat in 80 mg qd.For pain and spasms continue ibuprofen 400 mg TID, APAP 1000 mg TID, gabapentin 200 mg TID, and tizanidine [address] Flores, PM&R, following for pain mgmt.Monit or Chronic co mbined systolic and diastolic heart failure 4682268929 20838 I50.42 866304 Echo from 2023 showed EF of 30-35% with impaired relaxation .Appears euvolemic. Continue furosemide 20 mg qd, entresto 24/36 mg BID, metoprolol 50 mg qd, and spironolac tone 25 mg qd.Monitor resp. status, fluid status, wts and labs. [id number] MARY SHARP NP [facility] [address] 03/01/2025 09:12:04 03/03/2025 13:13:07 Cerebrovascular accident [id number] I63.9 S/P right carotid endarterec jaida, performed on 11/22/24.Sh ashley suffered a right carotid dissection , hematoma, as well as a CVA, which left her with left sided hemiplegia and dysphagia on tube feeds.Cont inue PT OT SLPNow on regular diet with thins, georges. well. Taking pills wholeConti nue:ASA 81 mg qdatorvast atin [address] qdDr[address] Strafford following for pain mgmt. 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 well so far.Taking meds whole.Lorna tor weightsFlu sh G Tube to maintain patency, can remove in the near future if weights stable and meeting nutritiona l needs and no s/s aspiration . Left hemiplegia 33456655 8 G81.94 see aboveWorki ng with PT OTPMR also involved to help with pain mgmt.Radha nue:Ibupro fen 400 mg tidAPAP 1 gm tidGabapen tin 200 mg tidTizanid ine 2 mg tid prn Congestive heart failure 83270660 I50.9 Continue:f urosemide 20 mg po qdentresto 24-36 po bidspirola ctone 25 mg po qdmonitor bmp and s/s of chf Chronic pain 81669005 G8 9.29 Comfortabl e at presentCon tinue APAP, ibuprofen, gabapentin , tizanidine PMR involved with POC Injury of nail 605018871 S99.822A 77591153 Partially avulsed left 4th toenail 2 wks ago, now healing. Unsure if seen by Podiatry, but nail still intact. Nailbed dark, no s/s infection or pain. Continue to monitor. Carotid ar jonas stenosis 08578220 I65.29 sp right carotid endarterec jaida, performed on 11/22/24 complicate d by right carotid dissection , hematoma, and CVA with residual L sided weakness and dysphagia. Continue ASA and statin.fu with surgery prn - had an appt with Dr De Anda on 01/04 Bipolar disorder 8213825 4 F31.9 hx ofcontinue sertraline 50 mg qdtrazodon e 75 mg po qhs for insomniare ferred to Psychmonit or Insomnia 832538233 G47.0 0 conttrazod one 75 mg po qhsReferre d to psychMonit or Anemia 327845810 D64.9 stablehx offerrous sulfate 325 mg po qd with vit c qdmonitor cbc and for s/s of bleeding Chronic ob structive pulmonary disease 68596908 J41.1 carrying dxcontinue out patient medsmonito r respirator y status and albuterol utilizatio n Coronary arteriosclerosis 52167230 I25.10 Continue:l ipitor 80 mg qdasa 81 mg qdmetoprol ol 50 mg qdentresto 24-36 po bidspirola ctone 25 mg po qdmonitor sx Automatic implantable cardiac defibrillator in situ 726680993 Z95.810 H/O LBBBComple jesus amiodarone taper.Cont inues on metoprolol 50 mg qd Hypertensive disorder 38 748081 I10 Continue:e ntresto 24-36 po bidmetopro lol 50 mg po qdlasix 20 mg qdspirolac tone 25 mg po qdmonitor bp and need to titrate Chronic cough 86888913 R 05.3 96044 Dry, worst in am, x 1 month.Has had before, uses [facility] at home, OK to use hereUnclea r etiology, possibly allergies, COPD, GERD, ACEI induced.Ivana ngs clear, VSS Plan -Monitor, ok to use Vicks prnAdd flonase qd x 30 daysEnc. use of prn ventolin, can consider scheduling Continue to monitorCan consider increasing PPICan consider stopping Entresto if not responsive to other measures. [id number] Jessica Taylor, [facility] [address] 03/02/2025 09:36:31 03/03/2025 13:23:58 Chronic cough 07650025 R05.3 23728 Dry, reports ongoing for a month with hx of allergiesV icks at home, OK to use here, with minimal help todayagree with other CITY [employer] that unnclear etiology, possibly allergies, COPD, GERD, [...] responsive to other measures. 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 well.Takin g pills wholeConti nue:ASA 81 mg qdatorvast atin [address] qdDr. Mark following for pain mgmt. Dysphagia 38237591 R13.1 0 Working with [employer] T[employer]ER, making gains.Diet regular with georges bonilla. well so far.Taking meds whole.Lorna tor weightsFlu G Tube to maintain patency, can remove in the near future if weights stable and meeting nutritiona l needs and no s/s aspiration .pt would like g tube out when advised. consider surgeon appt in march/april if contains with weight gain/and no aspiration Left hemiplegia 29331832 8 G81.94 see aboveFarzanehi nury with PT OTPMR also involved to help with pain mgmt.Cont: Ibuprofen 400 mg tidAPAP 1 gm tidGabapen tin 200 mg tidTizanid ine 2 mg tid prn Congestive heart failure 42937155 I50.9 stableCont inue:furos emide 20 mg po qdentresto 24-36 po bidspirola ctone 25 mg po qdmonitor bmp and s/s of chf Chronic pain 73646100 G8 9.29 Comfortabl e at presentCon tAPAP, ibuprofen, gabapentin , tizanidine PMR involved with POC [id number] Jessica [facility] [place] [address] 03/04/2025 08:25:35 03/08/2025 14:08:28 Chronic cough 28214823 R05.3 48575 Dry, reports ongoing for a month with [...] responsive to other measures. 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 well.Takin g pills wholeConti nue:ASA 81 mg qdatorvast atin 80 mg qdDr. Mark following for pain mgmt. Dysphagia 54636067 R13.1 0 Working with [employer]ER, making gains.Diet regular with thins georges. well so far.Taking meds whole.Lorna tor weightsFlu G Tube to maintain patency, can remove in the near future if weights stable and meeting nutritiona l needs and no s/s aspiration .pt would like g tube out when advised. consider surgeon appt in march/april if contains with weight gain/and no aspiration Left hemiplegia 29867327 8 G81.94 see aboveJessie arrington with PT [...] bench seatscript s provided Congestive heart failure 99034031 I50.9 stableCont inue:furos emide 20 mg po qdentresto 24-36 po bidspirola ctone 25 mg po qdmonitor bmp and s/s of chf Chronic pain 77269976 G8 9.29 Comfortabl e at presentCon tAPAP, ibuprofen, gabapentin , tizanidine PMR involved with POC [id number] Jessica Taylor NP [facility] [address] [place] [address] 03/07/2025 14:41:35 03/08/2025 14:33:37 Left hemiplegia 216668612 G81.94 see aboveFarzanehi nury with PT OTPMR [...] commode, tub bench seat Cerebrovas cular accident [id number] I63.9 S/P right carotid endarterec jaida, performed on 11/22/24.Sh ashley suffered a right carotid dissection , hematoma, as well as a CVA, which left her with left sided hemiplegia and dysphagia on tube feeds.Cont inue PT OT [employer]ER(off tube feeds )regular diet for about 1 month with georges bonilla. well.Takin g pills wholeCont: ASA 81 mg qdatorvast atin 80 mg qdDr. Mark following for pain mgmt. Chronic cough 61292575 R 05.3 86549 resolvingD ry, reports ongoing for a month [...] if not responsive to other measures. Dysphagia 49668744 R13.1 0 Working with [employer], making gains.Diet regular with chad georges. well so far.Taking meds whole.Lorna tor weightsFlu G Tube to maintain patency, can remove in the near future if weights stable and meeting nutritiona l needs and no s/s aspiration .pt would like g tube out when advised. consider surgeon appt in march/april if contains with weight gain/and no aspiration Congestive heart failure 59033065 I50.9 stableCont inue:furos emide 20 mg po qdentresto 24-36 po bidspirola ctone 25 mg po qdmonitor bmp and s/s of chf Chronic pain 22146997 G8 9.29 Comfortabl e at presentCon tAPAP, ibuprofen, gabapentin , tizanidine PMR involved with POC Diarrhea 45781765 R19.7 77511609 Pt reports eating non refrigerat ed sandwich with sp diarrheash e reports diarrhea resolved and eating and drinking regularly todaymonit or [id number] Jessica Taylor NP [address] [address] 03/16/2025 09:58:48 03/17/2025 14:05:14 Cerebrovascular accident [id number] I63.9 S/P right carotid endarterec jaida, performed on 11/22/24.Sh e suffered a right carotid dissection , hematoma, as well as a CVA, which left her with left sided hemiplegia and dysphagia on tube feeds.Cont inue PT OT [employer] AS[employer]ER(off tube feeds )regular diet for about 1.5 months with georges bonilla. well.Takin g pills wholeCont: ASA 81 mg qdatorvast atin [address] mg qdDr. Strafford following for pain mgmt. Left hemiplegia 74512545 8 G81.94 see aboveWorki ng with PT OTPMR also involved to help with pain mgmt.Cont: Ibuprofen 400 mg tidAPAP 1 gm tidGabapen tin 200 mg tidTizanid ine 2 mg tid prntherapy consulted with plan to move to handicap aptscripts written for and given to nursing home social worker last weekWheelc hair with arm bolster left side with strap for positionin g, swing away arm rest and leg rest and gel cushion, full electric bed, mattress, versa frame 3:1 commode, tub bench seat Chronic cough 38054096 R 05.3 01906 resolving with belowDry, reports ongoing for a month with hx of allergiesD DX likely allergies, COPD, GERD, ACEI induced.Ivana ngs clear, VSScontrob itussin 10 ml q 4hours prn cough unitl 6/6Vicks prn okay to use per requestflo nase qd x 30 days added nc. use of prn ventolin, can consider scheduling Continue to monitor Dysphagia 22116727 R13.1 0 Working with [employer], making gains.Diet regular with thins, georges. well so far.Taking meds whole.Lorna tor weightsFlu sh G Tube to maintain patency, can remove in the near future if weights stable/imp roving and meeting nutritiona l needs and no s/s aspiration for 2-3 months.pt would like g tube out when advised.co nsider surgeon appt in if contains with weight gain/and no aspiration Chronic pain 05987131 G8 9.29 Comfortabl e at presentCon tAPAP, ibuprofen, gabapentin , tizanidine PMR involved with POC Congestive heart failure 61025366 I50.9 stableCont inue:furos emide 20 mg po qdentresto 24-36 po bidspirola ctone 25 mg po qdmonitor bmp and s/s of chf, will reorder for 03/23 cmp, bnp, cbc Injury of nail 491227957 S99.822A 12945398 Partially avulsed left 4th toenail now healing. Unsure if seen by Podiatry, but nail still intact. Nailbed dark, no s/s infection or pain. Continue to monitor. Carotid ar jonas stenosis 67163495 I65.29 sp right carotid endarterec jaida, performed on 11/22/24 complicate d by right carotid dissection , hematoma, and CVA with residual L sided weakness and dysphagia. Continue ASA and statin.fu with surgery prn - had an appt with Dr De Anda on 01/04 Bipolar disorder 3794033 4 F31.9 hx ofcontinue sertraline 50 mg qdtrazodon e 100 mg po qhs for insomniare ferred to Psychmonit or Insomnia 821602017 G47.0 0 conttrazod one 100 mg po qhsReferre d to psychMonit or Anemia 078807195 D64.9 stablehx offerrous sulfate 325 mg po qd with vit c qdmonitor cbc and for s/s of bleeding Chronic ob structive pulmonary disease 99411085 J41.1 carrying dxcontinue out patient medsmonito r respirator y status and albuterol utilizatio n Coronary arteriosclerosis 20887490 I25.10 Continue:l ipitor 80 mg qdasa 81 mg qdmetoprol ol 50 mg qdentresto 24-36 po bidspirola ctone 25 mg po qdmonitor sx Automatic implantable cardiac defibrillator in situ [id number] Z95.810 H/O LBBBComple jesus amiodarone taper.cont metoprolol 50 mg qd Hypertensive disorder 38 342978 I10 Continue:e ntresto 24-36 po bidmetopro lol 50 mg po qdlasix 20 mg qdspirolac tone 25 mg po qdmonitor bp and need to titrate Recurrent falls 01427236 2 R29.6 monitor for injuries/p ainsuptami deane carebed rails in place for left sided weakness to help herself movemonito r closely with protocol [id number] Jessica Taylor NP [address] [address] 03/24/2025 09:23:03 03/30/2025 08:40:23 Cerebrovascular accident [id number] I63.9 S/P right carotid endarterec jaida, performed on 11/22/24.Sh ashley suffered a right carotid dissection , hematoma, as well as a CVA, which left her with left sided hemiplegia and dysphagia on tube feeds.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 well. consider removal of g tube in april if weight remains stable. She has not gained any weight on supplement s and po foods, just maintained .Taking pills wholeCont: ASA 81 mg qdatorvast atin 80 mg qdDr. Mark following for pain mgmt. Left hemiplegia 45925695 8 G81.94 stable on this regimenPMR also involved to help with pain mgmt.Cont: Ibuprofen 400 mg tidAPAP 1 gm tidGabapen tin 200 mg tidTizanid ine 2 mg tid prnplan:th silvano consulted with plan to move to handicap aptscripts written for already and given to nursing home social worker last weekWheelc hair with arm bolster left side with strap for positionin g, swing away arm rest and leg rest and gel cushion, full electric bed, mattress, versa frame 3:1 commode, tub bench seat Chronic cough 68357986 R 05.3 55685 remains with slight dry cough at baselineDr y, reports ongoing for a month with hx of allergiesD DX likely allergies, COPD, GERD, ACEI induced.Ivana ngs clear, VSScontrob itussin 10 ml q 4hours prn cough unitl 6/6Vicks prn okay to use per requestflo nase qd x 30 days added 66Enc. use of prn ventolin, can consider scheduling Continue to monitor Dysphagia 01329656 R13.1 0 Working with AIR TANK ASSEMBLER, making gains.Diet regular with thins, georges. well so far.Taking meds whole.Lorna tor weightsFlu sh G Tube to maintain patency, can remove in the near future if weights stable/imp roving and meeting nutritiona l needs and no s/s aspiration for 2-3 months.pt would like g tube out when advised.co nsider surgeon appt in april if contains with weight gain/and no aspiration Chronic pain 29337506 G8 9.29 Comfortabl e at presentCon tAPAP, ibuprofen, gabapentin , tizanidine PMR involved with POC Congestive heart failure 77648689 I50.9 stable bnp as aboveConti nue:furose mide 20 mg po qdentresto 24-36 po bidspirola ctone 25 mg po qdmonitor bmp and s/s of chf, will reorder for 03/23 cmp, bnp, cbc Carotid ar jonas stenosis 62858072 I65.29 sp right carotid endarterec jaida, performed on 11/22/24 complicate d by right carotid dissection , hematoma, and CVA with residual L sided weakness and dysphagia. Continue ASA and statin.fu with surgery prn - had an appt with Dr De Anda on 01/04 Bipolar disorder 6513086 4 F31.9 hx ofcontinue sertraline 50 mg qdtrazodon e 100 mg po qhs for insomniare ferred to Psychmonit or Insomnia 536624943 G47.0 0 conttrazod one 100 mg po qhsReferre d to psychMonit or Anemia 169642063 D64.9 stablehx offerrous sulfate 325 mg po qd with vit c qdmonitor cbc and for s/s of bleeding Automatic implantable cardiac defibrillator in situ 166998586 Z95.810 H/O LBBBComple jesus amiodarone taper.cont metoprolol 50 mg qd Hypertensive disorder 38 157831 I10 Continue:e ntresto 24-36 po bidmetopro lol 50 mg po qdlasix 20 mg qdspirolac tone 25 mg po qdmonitor bp and need to titrate Recurrent falls 45248655 2 R29.6 no recent fallsmonit or for injuries/p ainsupport viv carebed rails in place for left sided weakness to help herself movemonito r closely with protocol Dizziness 347600704 R42 22467 see hpilabs stable, appears euvolemic start meclizine 12.5 mg po q 8hrs03/24 start orthostast atic bp x 1adjust meds prnmonitor [id number] MARY SHARP [facility] [address] [place] [address] 03/29/2025 11:41:56 04/05/2025 10:09:45 Bipolar disorder 87523430 F31.9 Recent issues with insomniaSe en by Psych 03/28, recommendi ng increasing trazodone to 150 mg q hs which pt. is agreeable to trying to see if it will help with sleep.Cont inue sertraline 50 mg qdMonitor and update Psych with concerns. [id number] Jessica Taylor NP [facility] [address] [place] [address] 04/06/2025 08:16:31 04/12/2025 10:51:42 Bipolar disorder 39572158 F31.9 Recent issues with insomniaCo ntinuesert raline 50 mg qdtrazodon e 100 mg po qhsMonitor and update Psych with concerns outpt Dizziness 566077620 R42 08179 hx oflabs stable, appears euvolemicc ontmeclizi ne 12.5 mg po q 8hrsadjust meds prnmonitor outpt with pcp Cerebrovas cular accident 204264152 I63.9 S/P right carotid endarterec jaida, performed on 11/22/24.Sh ashley suffered a right carotid dissection , hematoma, as well as a CVA, which left her with left sided hemiplegia and dysphagia on tube feeds.Cont inue PT OT AIR TANK ASSEMBLER(off tube feeds )regular diet for about 1.5 months with chad georges. well. consider removal of g tube in april if weight remains stable. She has not gained any weight on supplement s and po foods, just maintained .Taking pills wholeCont: ASA 81 mg qdatorvast atin 80 mg qdDr. Mark following for pain mgmt. Left hemiplegia 14658373 8 G81.94 stable on this regimenPMR also involved to help with pain mgmt.Cont: Ibuprofen 400 mg tidAPAP 1 gm tidGabapen tin 200 mg tidTizanid ine 2 mg tid prnplan: silvano consulted with plan to move to handicap aptscripts written for already and given to nursing home social worker last weekWheelc hair with arm bolster left side with strap for positionin g, swing away arm rest and leg rest and gel cushion, full electric bed, mattress, versa frame 3:1 commode, tub bench seatfu with pcp outpt Chronic cough 46756924 R 05.3 19177 remains with slight dry cough at baselineDr [...] monitor and fu outpt with pcp Dysphagia 35296317 R13.1 0 Working with AIR TANK ASSEMBLER, making gains.Diet regular with chad georges. well [...] aspiration for g tube removal Chronic pain 91377267 G8 9.29 Comfortabl e at presentCon tAPAP, ibuprofen, gabapentin , tizanidine PMR involved with POC Congestive heart failure 38867501 I50.9 stable bnp as aboveConti nue:furose mide 20 mg po qdentresto 24-36 po bidspirola ctone 25 mg po qdfu outpt wtih pcp Carotid ar jonas stenosis 97056637 I65.29 sp right carotid endarterec jaida, performed on 11/22/24 complicate d by right carotid dissection , hematoma, and CVA with residual L sided weakness and dysphagia. Continue ASA and statin.fu with surgery/va scular prn and outpt with pcp Insomnia 087463767 G47.0 0 conttrazod one 100 mg po qhsReferre d to psych here, fu outpt prnMonitor outpt with pcp Anemia 885567394 D64.9 stablehx offerrous sulfate 325 mg po qd with vit c qdmonitor with pcp outpt Automatic implantable cardiac defibrillator in situ 170242931 Z95.810 H/O LBBBComple jesus amiodarone taper.cont metoprolol 50 mg qdfu with pcp outpt Hypertensive disorder 38 955911 I10 Continue:e ntresto 24-36 po bidmetopro lol 50 mg po qdlasix 20 mg qdspirolac tone 25 mg po qdmonitor bp and need to titrate outpt with pcp Recurrent falls 24028822 2 R29.6 no recent fallsmonit or for injuries/p ainsupport viv carebed rails in place for left sided weakness to help herself movemonito r closely with protocol and vna Chronic ob structive pulmonary disease 95277929 J41.1 carrying dxcontinue out patient medsmonito r respirator y status and albuterol utilizatio n outpt with pcp Coronary arteriosclerosis 12850304 I25.10 Continue:l ipitor 80 mg qdasa 81 mg qdmetoprol ol 50 mg qdentresto 24-36 po bidspirola ctone 25 mg po qdmonitor sx outpt with pcp Seasonal allergy 0738455 04 J30.2 08894 singulair 10 mg qd \flonase 1 spray each nare qdfu with pcp Gastroesop hageal reflux disease without esophagitis 617756191 K21.9 338691 hx ofpantopra zole 40 mg po qdmonitor outpt with pcp Health Concerns Section Related Observation LastModified by Organization Detai ls LastModified Time None Recorded Concern Status LastModified by Organization Details LastModified Time None Recorded Advance Directives Directive Y: Payers Insurance Date Sequence Insurance Name Policy Number Policy Stanford Covered Member ID Stanford Member ID Guarantor Name 05/20/2025 1 [facility] - DOS ON OR AFTER 2023 - MEDICARE ADVANTAGE [place] (MEDICARE REPLACEMENT/ADV ANTAGE - PPO) Renita Brandon [id number] Renita Brandon Notes Date Note Type Note [...] here on 12/08/24 after a hospitalization at [facility] for a right carotid dissection after a [...] both left extremities. She continues working with AIR TANK ASSEMBLER, making good progress, remains on regular diet with thin liquids, georges. well, maintaining weights so far. Taking pills whole Jessica Taylor, BRITTANEY [address] [facility], [address], [place], [address], [facility] [employer] 03/07/2025 17:48:15 03/16/2025 text/html Renita is seen today for a 90 routine rounding visit. Her PMH includes HTN, hx of carotid artery stenosis s/p right carotid dissection with left hemiplegia, CHF, GERD, bipolar dz, COPD, HLD, and anemia. She is a 54 yo woman admitted here on 12/08/24 after a hospitalization at [facility] for a right carotid dissection after a right carotid endarterectomy, performed on 11/22/2024. Resulting in left-sided hemiplegia and dysphagia. A PEG was placed and she was NPO for several months. Since here at [facility]: Renita was started on trazadone for sleep [...] but just maintaining. She is followed by seat coverer and has supplements. She may have g [...] extremities. In general, She continues working with AIR TANK ASSEMBLER, making good progress, remains on regular diet with thin liquids, georges. well, maintaining weights so far. Taking pills whole She was started on flonase and robitussin for occ cough with effect. She On exam, She is smiling and no concerns. Lungs CTA. She continues with left sided weakness. She is planning on d/c to a new 1st floor [facility] with 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 WORKER care on 04/01. Her mother and daughter live nearby to [facility]. She is looking forward to going home. Jessica Taylor, BRITTANEY [address] [facility], [address], [place], [address], [facility] [employer] 03/16/2025 10:22:54 03/24/2025 text/html Pt is seen [...] here on 12/08/24 after a hospitalization at [facility] for a right carotid dissection after a [...] to a new 1st floor apt with 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 WORKER care on 04/01. Scripts for DME have been provided and working on set up of her new place. Her mother and daughter live nearby to [facility]. She is looking forward to going home at that time. Jessica Taylor NP [address] [facility], [address], [place], [address], [employer] 03/24/2025 10:13:17 03/29/2025 text/html Renita is [...] concerns per nsg. MARY SHARP NP [address] [facility], [address], [place], [address], [employer] 03/29/2025 11:51:06 04/06/2025 text/html Renita is seen today for a discharge rounding visit. Her PMH includes HTN, hx of carotid artery stenosis s/p right carotid dissection with left hemiplegia, CHF, GERD, bipolar dz, COPD, HLD, and anemia. Labs last reviewed from 03/23 and stable. She is a 54 yo woman admitted here on 12/08/24 after a hospitalization at [facility] for a right carotid dissection after a right carotid endarterectomy, performed on 11/22/2024. Resulting in left-sided hemiplegia and dysphagia. A PEG was placed and she was NPO for several months. Since here at [facility] she is currently off g tube feedings. [...] on d/c to a new 1st floor [facility] with 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 WORKER care. Scripts for DME have been provided and set up of her new place. Her mother and daughter live nearby to [facility]. She is looking forward to going home at that time. Scripts sent to [facility] per request. Spent greater than 60 minutes on discharge and corrdination etc... On exam, Renita is smiling and happy to go home later today. caregiver services home is checking to make sure her equipment is at her place. No distress or complaints and remains with mild cough at times, seems to be allergy related. Jessica Taylor, BRITTANEY [address] [facility], [address], [place], [address], [facility] 04/06/2025 11:45:18 OBGyn Episode No OBEpisode recorded.
--- OUTSIDE RECORDS SUMMARY | 2025-08-01 16:19 | XMS_ITS | Encounter Summary ---
Author Organization [employer] Address [address] [facility] [address] [place] [address] Care Team Providers Care Business Technology Architect Name Role Phone Hilda Butt MD Primary Care Provider [phone] Reason for Visit * Reason Comments Med Refill Encounter Details Date Type Department Care Team ([facility] st Contact Info) Description 06/29/2024 Refill [facility] [address] [place], [place] [phone] Hilda Butt MD [address] [place], [place] [phone] Lower extremity edema Social History Tobacco Use [...] documented as of this encounter Care Teams Business Technology Architect Relationship Specialty Start Date End Date Hilda Butt MD [address] [place] [address] PCP - General Family Medicine 06/20/22 Wilfrido 04/08/25 documented as of this encounter
--- OUTSIDE RECORDS SUMMARY | 2025-08-01 16:19 | XMS_ITS | Encounter Summary ---
Author Organization [employer] Address [address] [facility] [address] [place] [address] Care Team Providers Care Computer Programming Manager Name Role Phone Hilda Butt MD Primary Care Provider [phone] Reason for Visit * Reason Onset Date Comments Med Refill 12/03/2023 Encounter Details Date Type Department Care Team ([facility] st Contact Info) Description 12/03/2023 Refill [facility] [address] [place], [place] [phone] Hilda Butt MD [address] [place], [place] [phone] Social History Tobacco Use Types Packs/Day Years [...] as of this encounter Care Teams Computer Programming Manager Relationship Specialty Start Date End Date Hilda Butt MD [address] [place] [address] PCP - General Family Medicine 06/20/22 Aveanna 04/08/25 documented as of this encounter
== END 2025-08-01 14:39 | disposition home or self-care (01) ==
LOC: HO.HCS 13:51
PROVIDERS: PCP General Practice; Visit Provider Internal Medicine
DX: I42.8 Other cardiomyopathies (principal); I44.7 Left bundle-branch block, unspecified; Z95.810 Presence of automatic (implantable) cardiac defibrillator
CPT/HCPCS: 93284; 99214; G2211

== ENCOUNTER → 2025-08-01 13:51 | Outpatient (BNVA) | payer OTHER, SELFPAY | PROVIDERS: PCP General Practice; Visit Provider Internal Medicine | DX: I42.8 Other cardiomyopathies (principal); I44.7 Left bundle-branch block, unspecified; I10 Essential (primary) hypertension; Z95.810 Presence of automatic (implantable) cardiac defibrillator | CPT/HCPCS: 93284; 99212 ==

== ENCOUNTER → 2025-08-03 23:59 | Outpatient (BNV) | payer OTHER, SELFPAY ==
--- NOTE | 2025-08-10 15:57 | MHC.OFFVIS ---
Intake Visit Reasons: Remote PALLIATIVE MEDICINE PHYSICIAN device check- [facility] Allergies lisinopril Allergy (Verified 01/04/25 13:02) Cough ham Allergy (Uncoded 01/04/25 13:02) hives [facility] Medical History Acute hypernatremia Laryngeal edema Stroke Dissection of right carotid artery Dysphagia Hx of radiation therapy Habitual snoring Cough On beta yamini at home Pacemaker Cardiac resynchronization therapy defibrillator (PALLIATIVE MEDICINE PHYSICIAN-D) in place (~06/2023) LBBB (left bundle branch block) NICM (nonischemic cardiomyopathy) Invasive ductal carcinoma of left breast (~02/2022) Anemia COPD (chronic obstructive pulmonary disease) Hypercholesteremia Bipolar 1 disorder Hypertension Surgical History History of cardiac defibrillator placement (~2022) History of cardiac cath (~2021) History of foot surgery (~2006) History of left breast biopsy (~2021) History of lumpectomy of left breast (~2021) History of hysterectomy (~2021) Family History Maternal Aunt Lupus Mother Breast cancer Social History Household Members: None Housing: Apartment Are you a primary critical care nurse to a significant other at home: No Do you presently have visiting nurse or other home services: No Alcohol intake: never Patient Tobacco Use Status: Former Tobacco user Tobacco use type: Cigarette service: No 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al status: disabled 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 [id number] Cardiac Interrogation, implant defibrillator w/interim Procedure code (CPT) selection complete Assessment & Plan Assessment & Plan (1) Cardiac resynchronization therapy defibrillator (PALLIATIVE MEDICINE PHYSICIAN-D) in place: Onset Date: ~06/2023 Code(s): Z95.810 - Presence of automatic (implantable) cardiac defibrillator Category: Medical (2) LBBB (left bundle branch block): Code(s): I44.7 - Left bundle-branch block, unspecified Category: Medical (3) NICM (nonischemic cardiomyopathy): Code(s): I42.8 - Other cardiomyopathies Category: Medical Plan x Coding Level of Care Code Procedure Only Diagnoses Cardiac resynchronization therapy defibrillator (PALLIATIVE MEDICINE PHYSICIAN-D) in place Z95.810 LBBB (left bundle branch block) I44.7 NICM (nonischemic cardiomyopathy) I42.8 CPT Codes Cardiac Device Check - Cardiac Device 13: [id number] Cardiac Interrogation, implant defibrillator w/interim ([id number])
== END ==
PROVIDERS: PCP General Practice; Visit Provider Internal Medicine
DX: I44.7 Left bundle-branch block, unspecified (principal); Z95.810 Presence of automatic (implantable) cardiac defibrillator; I42.8 Other cardiomyopathies
CPT/HCPCS: 93295

== ENCOUNTER 2025-08-25 10:55 | Outpatient (AMB) | payer OTHER, SELFPAY ==
--- NOTE | 2025-08-25 11:15 | MHC.OFFVIS ---
Vital Signs 08/25/25 11:15 Height 4 ft 11 in BMI Reason not done Patient refused/unable BP not taken reason Medical Reason Intake Visit Reasons: Discuss G-tube removal Intake Note: This patient presents for an assessment to discuss G-tube removal. Pt c/o; no complaints at this time. 08/10/2025: Dr. Darling- Cardiovascular disease: presence of automatic (implantable) cardiac defibrillator; [facility] 05/26/2025: EKG in office- Dr. Darling 10/16/2022- Cardiac Cath- [facility] Tuber Machine Operator Required: No Accompanied by: Daughter Allergies lisinopril Allergy (Verified 08/25/25 11:15) Cough ham Allergy (Uncoded 08/25/25 11:15) hives Medication List - Last Reconciled 08/25/25 by Jorge L Walsh MD albuterol sulfate 90 mcg/actuation (Ventolin HFA) 2 inhalations inhalation Q6H PRN ascorbic acid (vitamin C) 250 mg PO DAILY aspirin 81 mg PO DAILY atorvastatin 80 mg PO DAILY cholecalciferol (vitamin D3) (Vitamin D3) 50 mcg PO DAILY gabapentin mg PO metoprolol succinate ER 50 mg PO DAILY montelukast 10 mg PO BEDTIME pantoprazole 40 mg PO DAILY@0630 sacubitril-valsartan 24-26 mg (Entresto) 1 tab PO BID sertraline 50 mg PO DAILY spironolactone 25 mg PO DAILY trazodone 100 mg PO BEDTIME HPI HPI Discuss G-tube removal: Details: I had placed a PEG tube for her last November, after she suffered a stroke after her carotid endarterectomy She says that she actually has not been using the PEG tube for nutrition for about over 6 months now. She says she is able to have good oral intake. She denies any problems with swallowing. Wants the PEG tube removed. [facility] Medical History Acute hypernatremia Laryngeal edema Stroke Dissection of right carotid artery Dysphagia Hx of radiation therapy Habitual snoring Cough On beta yamini at home Pacemaker Cardiac resynchronization therapy defibrillator (SUPERVISORY CBP OFFICER-D) in place (~06/2023) LBBB (left bundle branch block) NICM (nonischemic cardiomyopathy) Invasive ductal carcinoma of left breast (~02/2022) Anemia COPD (chronic obstructive pulmonary disease) Hypercholesteremia Bipolar 1 disorder Hypertension Surgical History (Updated 08/25/25 @ 11:53 by Jorge L Walsh MD) PEG (percutaneous endoscopic gastrostomy) status S/P percutaneous endoscopic gastrostomy (PEG) tube placement (~12/06/24) History of cardiac defibrillator placement (~2022) History of cardiac cath (~2021) History of foot surgery (~2006) History of left breast biopsy (~2021) History of lumpectomy of left breast (~2021) History of hysterectomy (~2021) Family History Maternal Aunt Lupus Mother Breast cancer Social History Household Members: None Housing: Apartment Are you a primary career development specialist to a significant other at home: No Do you presently have visiting nurse or other home services: No Alcohol intake: never Patient Tobacco Use Status: Former Tobacco user Tobacco use type: Cigarette service: No 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al status: disabled 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 Female Reproductive History Menstrual Age of Menarche: 12 Review of Systems Const Denies chills and Denies fever(s) Card Denies chest pain at rest Resp Denies cough GI Denies abdominal pain Neuro Details: Has left-sided paraplegia Physical Exam Const Other: On wheelchair, General: comfortable and no acute distress Resp Effort & Inspection: normal respiratory effort Cardio Rate: regular rate GI Other: Peg tube in place on the left upper quadrant Palpation (GI): Soft to palpation Assessment & Plan Assessment & Plan (1) PEG (percutaneous endoscopic gastrostomy) status: Code(s): Z93.1 - Gastrostomy status Category: Surgical Plan: Her PEG tube has not been used for over 6 months. She says she has good oral intake and denies problems with swallowing I therefore removed the PEG tube without difficulty. She tolerated procedure well. I applied dressings on the PEG side. I explained to him good wound care. She can follow up with us on a p.r.n. basis. Coding Level of Care Code Est Pt Level 3 (25597) Diagnoses PEG (percutaneous endoscopic gastrostomy) status Z93.1
--- OUTSIDE RECORDS SUMMARY | 2025-08-25 13:38 | XMS_ITS | Encounter Summary ---
Author Organization [employer] Address [address] [facility] [address]t [place] [address] Care Team Providers Care Morning Nanny Name Role Phone Hilda Butt MD Primary Care Provider Encounter Details Date Type Department Care Team ([facility] st Contact Info) Description 03/24/2024 Orders Only [facility] [address] [place], [place] [phone] Hilda Butt MD [address] [place], [place] [phone] Vertebral artery dissection (CMS/HCC) (Primary Dx) Social [...] documented as of this encounter Care Teams Morning Nanny Relationship Specialty Start Date End Date Hilda Butt MD [address] [place] [address] PCP - General Family Medicine 06/20/22 Stareashelly 04/08/25 documented as of this encounter
--- OUTSIDE RECORDS SUMMARY | 2025-08-25 13:39 | XMS_ITS | Encounter Summary ---
Author Organization [employer] Address [address] [facility] [address] [place] [address] Care Team Providers Care Salmon Troll Fisher Name Role Phone Hilda Butt MD Primary Care Provider [phone] Reason for Visit * Reason Onset Date Comments Med Refill 03/01/2024 Encounter Details Date Type Department Care Team ([facility] st Contact Info) Description 03/01/2024 Refill [facility] [address] [place], [place] [phone] Hilda Butt MD [address] [place], [place] [phone] Itchy skin of anus and genitals; Recurrent [...] documented as of this encounter Care Teams Salmon Troll Fisher Relationship Specialty Start Date End Date Hilda Butt MD [address] [place] [address] PCP - General Family Medicine 06/20/22 Wilfrido 04/08/25 documented as of this encounter
--- OUTSIDE RECORDS SUMMARY | 2025-08-25 13:39 | XMS_ITS | Encounter Summary ---
Author Organization [employer] Address 75 [facility] 7t [place] [address] Care Team Providers Care Aquatic Laborer Name Role Phone Hilda Butt MD Primary Care Provider [phone] Reason for Visit * Reason Comments Med Refill Encounter Details Date Type Department Care Team ([facility] st Contact Info) Description 02/03/[address] [facility] MEDICINE [address] [place] [address] [phone] Hilda Butt MD [address] [place], [place] [phone] Social History Tobacco Use Types Packs/Day Years [...] documented as of this encounter Care Teams Aquatic Laborer Relationship Specialty Start Date End Date Hilda Butt MD [address] [place] [address] PCP - General Family Medicine 06/20/22 Wilfr[place] 04/08/25 documented as of this encounter
--- OUTSIDE RECORDS SUMMARY | 2025-08-25 13:39 | XMS_ITS | Encounter Summary ---
Author Organization [employer] Address 75 [facility] 7t [place] [address] Care Team Providers Care Seaport Planning Manager Name Role Phone Hilda Butt MD Primary Care Provider [phone] Reason for Visit * Reason Onset Date Comments Med Refill 04/22/2024 Encounter Details Date Type Department Care Team ([facility] Contact Info) Description 04/22/2024 Refill [facility] MEDICINE 230 [place], [place] [phone] Hilda Butt MD 230 [place], [place] [phone] Social History Tobacco Use Types Packs/Day Years [...] documented as of this encounter Care Teams Seaport Planning Manager Relationship Specialty Start Date End Date Hilda Butt MD [address] [place] [address] PCP - General Family Medicine 06/20/22 Wilfrido 04/08/25 documented as of this encounter
--- OUTSIDE RECORDS SUMMARY | 2025-08-25 13:39 | XMS_ITS | Encounter Summary ---
Author Organization [employer] Address 75 [facility] 7t [place] [address] Care Team Providers Care Boat Outfitter Name Role Phone Hilda Butt MD Primary Care Provider [phone] Reason for Visit * Reason Onset Date Comments Med Refill 04/22/2024 Encounter Details Date Type Department [facility] Team ([facility] Contact Info[facility] Description 04/22/2024 Refill [facility] MEDICINE 230 [place], [place] [phone] Hilda Butt MD [address] [place], [place] [phone] Neck pain Social History Tobacco Use Types [...] as of this encounter Care Teams Boat Outfitter Relationship Specialty Start Date End Date Hilda Butt MD [address] [place] [address] PCP - General Family Medicine 06/20/22 Wilfrido 04/08/25 documented as of this encounter
--- OUTSIDE RECORDS SUMMARY | 2025-08-25 13:39 | XMS_ITS | Encounter Summary ---
Author Organization [employer] Address [address] [place] [address] 7t [place] [address] Care Team Providers Care Production Troubleshooter Name Role Phone Hilda Butt MD Primary Care Provider Reason for Referral * Imaging (Routine) - Closed Specialty Diagnoses / Procedures Referred By Tyeshaac t Referred To Contact Radiology Diagnoses Vertebral artery dissection Tinnitus of both ears Procedures CTA Neck w/ and w/o Contrast Hilda Butt MD [address] [place] [address] Phone: tel: fax: [address] Phone: tel: fax: Referral ID Status Reason Start Date Expiration Date Visits Re quested Visits Authorized [id number] Closed 03/08/2024 03/08/2025 1 1 * Imaging (Routine) - Closed Specialty Diagnoses / Procedures Referred By Contac t Referred To Contact Radiology Diagnoses Vertebral artery dissection Tinnitus of both ears Procedures CTA Head w/ and w/o Contrast Hilda Butt MD [address] [place] [address] Phone: tel: fax: [address] Phone: tel: fax: Referral ID Status Reason Start Date Expiration Date Visits Re quested Visits Authorized [id number] Closed 03/08/2024 03/08/2025 1 1 * Imaging (Routine) - Canceled Specialty Diagnoses / Procedures Referred By Contac t Referred To Contact Radiology Diagnoses Vertebral artery dissection Tinnitus of both ears Procedures CTA Head Neck w/ and w/o Contrast Hilda Butt MD [address] [place] [address] Phone: tel: fax: [address] Phone: tel: fax: Referral ID Status Reason Start Date Expiration Date V isits Requested Visits Authorized [id number] Canceled 03/05/2024 03/05/2025 1 1 Encounter Details Date Type Department Care Team (Late st Contact Info) Description 03/05/2024 Orders Only [facility] MEDICINE [address] [place], [place] [phone] Hilda Butt MD [address] [place], [place] [phone] Vertebral artery dissection (CMS/HCC) (Primary Dx); Tinnitus [...] 1:56 PM EDT Narrative 06/09/2024 10:[address] [address] [address] Scan Report Signed Patient: Renita Brandon MR#: [id number] 4 : 1970 Acct:[id number] Age/Sex: 53 / F ADM Date: 05/17/24 Loc: .CT Attending Dr: Hilda Butt MD Ordering Physician: Hilda Butt Date of Service: 05/17/24 Procedure(s): CT angio head neck Accession Number(s): [id number] cc: Hilda Butt EXAMINATION: CT ANGIOGRAM HEAD [...] aspect of the left vertebral artery with xglz-xf-srydhbry luminal narrowing. Right Carotid: There is moderately [...] in OV> 06/09/24 0957 DD/ 1356 TD/TT: Door Puller: Procedure Note Donotuseinterpreter, Image - 06/09/[address] [address] [address] Scan Report Signed Patient: Adin Brandon#: [id number] 4 : 1970Acct:[id number] Age/Sex: 53 / FADM Date: 05/17/24 Loc: HO.CT Attending Dr: Hilda Butt MD Ordering Physician: Hilda Butt Date of Service: 05/17/24 Procedure(s): CT angio head neck Accession Number(s): [id number] cc: Hilda Butt EXAMINATION: CT ANGIOGRAM HEAD [...] aspect of the left vertebral artery with cyzx-rr-flfkmzsj luminal narrowing. Right Carotid: There is moderately [...] in OV> 06/09/24 0957 DD/ 1356 TD/TT: Door Puller: Hilda Butt MD IMG CT PROCEDURES Final Result documented in this encounter Visit Diagnoses Diagnosis Vertebral artery dissection- Primary Dissection of vertebral artery Tinnitus of both ears Unspecified tinnitus documented in this encounter Additional Health Concerns Assessment Noted Time PHQ-9 Depression Total Score: 0 11/17/19 24 10:34 AM EST documented as of this encounter Care Teams Production Troubleshooter Relationship Specialty Start Date End Date Hilda Butt MD [address] [place] [address] PCP - General Family Medicine 06/20/22 Aveanna 04/08/25 documented as of this encounter
--- OUTSIDE RECORDS SUMMARY | 2025-08-25 13:39 | XMS_ITS | Encounter Summary ---
Author Organization [employer] Address 75 [facility] 7t [place] [address] Care Team Providers Care Insole Lip Turner Name Role Phone Hilda Butt MD Primary Care Provider [phone] Reason for Visit * Reason Onset Date Comments Med Refill 03/11/2024 Encounter Details Date Type Department Care Team ([facility] st Contact Info) Description 03/11/2024 Refill [facility] MEDICINE 230 [place], [place] [phone] Hilda Butt MD [address] [place], [place] [phone] Social History Tobacco Use Types Packs/Day Years [...] documented as of this encounter Care Teams Insole Lip Turner Relationship Specialty Start Date End Date Hilda Butt MD [address] [place] [address] PCP - General Family Medicine 06/20/22 Wilfrido 04/08/25 documented as of this encounter
--- OUTSIDE RECORDS SUMMARY | 2025-08-25 13:39 | XMS_ITS | Encounter Summary ---
Author Organization [employer] Address 75 [facility] 7t [place] [address] Care Team Providers Care Housing Assistant Name Role Phone Hilda Butt MD Primary Care Provider [phone] Reason for Visit * Reason Onset Date Comments Med Refill 04/22/2024 Encounter Details Date Type Department Care Team ([facility] Contact Info) Description 04/22/2024 Refill [facility] MEDICINE 230 [place], [place] [phone] Hilda Butt MD [address] [place], [place] [phone] Social History Tobacco Use Types Packs/Day Years [...] documented as of this encounter Care Teams Housing Assistant Relationship Specialty Start Date End Date Hilda Butt MD [address] [place] [address] PCP - General Family Medicine 06/20/22 Wilfrido 04/08/25 documented as of this encounter
--- OUTSIDE RECORDS SUMMARY | 2025-08-25 13:39 | XMS_ITS | Encounter Summary ---
Author Organization [employer] Address 75 [facility] 7t [place] [address] Care Team Providers Care Youth Agent Name Role Phone Hilda Butt MD Primary Care Provider [phone] Reason for Visit * Reason Onset Date Comments Med Refill 05/10/2024 Encounter Details Date Type Department Care Team ([facility] st Contact Info) Description 05/10/2024 Refill [facility] MEDICINE 230 [place], [place] [phone] Hilda Butt MD [address] [place], [place] [phone] Social History Tobacco Use Types Packs/Day Years [...] documented as of this encounter Care Teams Youth Agent Relationship Specialty Start Date End Date Hilda Butt MD [address] [place] [address] PCP - General Family Medicine 06/20/22 Wilfrido 04/08/25 documented as of this encounter
--- OUTSIDE RECORDS SUMMARY | 2025-08-25 13:39 | XMS_ITS | Encounter Summary ---
Author Organization [employer] Address 75 [facility] 7t [place] [address] Care Team Providers Care Edging Machine Catcher Name Role Phone Hilda Butt MD Primary Care Provider Reason for Visit * Reason Onset Date Comments Med Refill 05/25/2024 Encounter Details Date Type Department Care Team ([facility] st Contact Info) Description 05/25/2024 Refill [facility] MED & PEDS [address] [place], [place] [phone] Hilda Butt MD [address] [place] [address] Social History Tobacco Use Types Packs/Day Years [...] documented as of this encounter Care Teams Edging Machine Catcher Relationship Specialty Start Date End Date Hilda Butt MD [address] [place] [address] PCP - General Family Medicine 06/20/22 Wilfrido 04/08/25 documented as of this encounter
--- OUTSIDE RECORDS SUMMARY | 2025-08-25 13:39 | XMS_ITS | Encounter Summary ---
Author Organization [employer] Address 75 [facility] 7t [place] [address] Care Team Providers Care Grinding And Spraying Supervisor Name Role Phone Hilda Butt MD Primary Care Provider [phone] Encounter Details Date Type Department Care Team ([facility] st Contact Info) Description 12/30/2022 Orders Only [facility] MEDICINE 230 [place], [place] [phone] Hilda Butt MD [address] [place] [address] Low back pain at multiple sites (Primary [...] laterality documented in this encounter Care Teams Grinding And Spraying Supervisor Relationship Specialty Start Date End Date Hilda Butt MD [address] [place] [address] PCP - General Family Medicine 06/20/22 Wilfrido 04/08/25 documented as of this encounter
--- OUTSIDE RECORDS SUMMARY | 2025-08-25 13:39 | XMS_ITS | Encounter Summary ---
Author Organization [employer] Address 75 [facility] 7t [place] [address] Care Team Providers Care Cleaner Laboratory Equipment Name Role Phone Hilda Butt MD Primary Care Provider [phone] Reason for Visit * Reason Comments Med Refill Encounter Details Date Type Department Care Team ([facility] st Contact Info) Description 04/23/[address] [facility] MEDICINE [address] [place], [place] [phone] Shamar Stevens FNP Bipolar II disorder (CMS/HCC) [...] documented as of this encounter Care Teams Cleaner Laboratory Equipment Relationship Specialty Start Date End Date Hilda Butt MD [address] [place] [address] PCP - General Family Medicine 06/20/22 Aveanna 04/08/25 documented as of this encounter
--- OUTSIDE RECORDS SUMMARY | 2025-08-25 13:39 | XMS_ITS | Encounter Summary ---
Author Organization [employer] Address 75 [facility] 7t [place] [address] Care Team Providers Care Charger Name Role Phone Hilda Butt MD Primary Care Provider [phone] Reason for Visit * Reason Onset Date Comments Med Refill 02/25/2024 Encounter Details Date Type Department Care Team ([facility] st Contact Info) Description 02/25/2024 Refill [facility] MEDICINE 230 [place], [place] [phone] Hilda Butt MD [address] [place], [place] [phone] Itchy skin of anus and genitals; Recurrent [...] documented as of this encounter Care Teams Charger Relationship Specialty Start Date End Date Hilda Butt MD [address] [place] [address] PCP - General Family Medicine 06/20/22 Wilfrido 04/08/25 documented as of this encounter
--- OUTSIDE RECORDS SUMMARY | 2025-08-25 13:39 | XMS_ITS | Encounter Summary ---
Author Organization [employer] Address 75 [facility] 7t [place] [address] Care Team Providers Care Textile Finisher Name Role Phone Hilda Butt MD Primary Care Provider [phone] Reason for Visit * Reason Onset Date Comments Med Refill 02/25/2024 Encounter Details Date Type Department Care Team ([facility] st Contact Info) Description 02/25/[address] [facility] MEDICINE [address] [place], [place] [phone] Hilda Butt MD [address] [place], [place] [phone] Dizziness Social History Tobacco Use Types Packs/Day [...] documented as of this encounter Care Teams Textile Finisher Relationship Specialty Start Date End Date Hilda Butt MD [address] [place] [address] PCP - General Family Medicine 06/20/22 Wilfrido 04/08/25 documented as of this encounter
--- OUTSIDE RECORDS SUMMARY | 2025-08-25 13:39 | XMS_ITS | Encounter Summary ---
Author Organization [employer] Address 75 [facility] 7t [place] [address] Care Team Providers Care Retail Analytics Manager Name Role Phone Hilda Butt MD Primary Care Provider [phone] Reason for Visit * Reason Onset Date Comments Med Refill 03/11/2024 Encounter Details Date Type Department Care Team ([facility] Contact Info) Description 03/11/2024 Refill [facility] CHC MED & PEDS [address] [place], [place] [phone] Hilda Butt MD [address] [place] [address] Itchy skin of anus and genitals; Recurrent [...] as of this encounter Care Teams Retail Analytics Manager Relationship Specialty Start Date End Date Hilda Butt MD [address] [place] [address] PCP - General Family Medicine 06/20/22 Stareashelly 04/08/25 documented as of this encounter
--- OUTSIDE RECORDS SUMMARY | 2025-08-25 13:40 | XMS_ITS | Encounter Summary ---
Author Organization [employer] Address 75 [facility] 7t [place] [address] Care Team Providers Care Bobbin Cleaner Name Role Phone Hilda Butt MD Primary Care Provider [phone] Encounter Details Date Type Department Care Team ([facility] st Contact Info) Description 11/05/2024 Orders Only [facility] MEDICINE 230 [place], [place] [phone] Hilda Butt MD [address] [place], [place] [phone] Social History Tobacco Use Types Packs/Day Years [...] documented as of this encounter Care Teams Bobbin Cleaner Relationship Specialty Start Date End Date Hilda Butt MD [address] [place] [address] PCP - General Family Medicine 06/20/22 Stareashelly 04/08/25 documented as of this encounter
--- OUTSIDE RECORDS SUMMARY | 2025-08-25 13:40 | XMS_ITS | Encounter Summary ---
Author Organization [employer] Address 75 [facility] 7t [place] [address] Care Team Providers Care Environmental Protection Economist Name Role Phone Hilda Butt MD Primary Care Provider [phone] Reason for Visit * Reason Onset Date Comments Med Refill 08/20/2024 Encounter Details Date Type Department Care Team ([facility] Contact Info) Description 08/20/2024 Refill [facility] CHC MED & PEDS [address] [place], [place] [phone] Hilda Butt MD [address] [place] [address] Social History Tobacco Use Types Packs/Day Years [...] documented as of this encounter Care Teams Environmental Protection Economist Relationship Specialty Start Date End Date Hilda Butt MD [address] [place] [address] PCP - General Family Medicine 06/20/22 Wilfrido 04/08/25 documented as of this encounter
--- OUTSIDE RECORDS SUMMARY | 2025-08-25 13:40 | XMS_ITS | Encounter Summary ---
Author Organization [employer] Address [address] [place] [address] Care Team Providers Care Premium Note Interest Calculator Clerk Name Role Phone Tara Paniagua RN Primary Care Provider [phone] Encounter Details Date Type Department Care Team (Late Contact Info) Description 12/10/2024 Lab Requisition [facility] [address] [place] [address] Benjamin Kim MD [address] [facility] [address] [place], [address] Essential (primary) hypertension Social History Tobacco [...] Department Care Team (Late Contact Info) Description 09/14/2025 10:00 AM EST Evaluation [facility] [address] [facility] [address] [place] [address] Viktoriya Zaman, PT documented as of this encounter Procedures Procedure Name Priority Date/Time Associated Diagnosis Comments COMPLETE BLOOD COUNT Routine 12/10/2024 7:30 AM EST Essential (primary) hypertension BASIC METABOLIC PANEL Routine 12/10/2024 7:30 AM EST Essential (primary) hypertension documented in this encounter Results * (ABNORMAL) Basic metabolic panel (12/10/2024 7:30 AM EST) Sodium 139 133 - 145 mmol/L LAB CHEMISTRY METHOD 12/10/2024 11:46 AM [facility] Potassium 4.3 3.5 - 5.5 mmol/L LAB CHEMISTRY METHOD 12/10/2024 11:46 AM [facility] Chloride 104 96 - 110 mmol/L LAB CHEMISTRY METHOD 12/10/2024 11:46 AM [facility] CO2 29 21 - 32 mmol/L LAB CHEMISTRY METHOD 12/10/2024 11:46 AM [facility] Anion Gap 6 3 - 11 LAB CHEMISTRY METHOD 12/10/2024 11:46 AM [facility] Glucose 122(H) 70 - 100 mg/dL LAB CHEMISTRY METHOD 12/10/2024 11:46 AM [facility] BUN 13 5 - 25 mg/dL LAB CHEMISTRY METHOD 12/10/2024 11:46 AM [facility] Creatinine 0.56 0.50 - 1.10 mg/dL LAB CHEMISTRY METHOD 12/10/2024 11:46 AM [facility] eGFR 110 >=60 mL/min/1. 73m2 LAB CHEMISTRY METHOD 12/10/2024 11:46 AM [facility] Comment:Calculation based on the Chronic Kidney Disease Epidemiology Collaboration (CKD-EPI) equation refit without adjustment for race. BUN/Creatinine Ratio 23.2 LAB CHEMISTRY METHOD 12/10/2024 11:46 AM [facility] Calcium 9.7 8.5 - 10.5 mg/dL LAB CHEMISTRY METHOD 12/10/2024 11:46 AM [facility] Blood Venous blood specimen / Unknown Venipuncture / Unknown 12/10/2024 7:30 AM EST 12/10/2024 10:55 AM EST us Benjamin Kim MD LAB BLOOD ORDERABLES Final Resul t [facility] [address] [place] [address], * (ABNORMAL) Complete blood count (12/10/2024 7:30 AM EST) WBC 6.1 4.8 - 10.8 K/mcL LAB HEMETOLOGY METHOD 12/10/2024 11:22 AM [facility] RBC 3.70(L) 3.80 - 4.80 M/mcL LAB HEMETOLOGY METHOD 12/10/2024 11:22 AM [facility] Hemoglobin 10.6(L) 11.5 - 16.0 g/dL LAB HEMETOLOGY METHOD 12/10/2024 11:22 AM [facility] Hematocrit 33.2(L) 35.0 - 47.0 % LAB HEMETOLOGY METHOD 12/10/2024 11:22 AM [facility] MCV 89.2 79.0 - 98.0 FL LAB HEMETOLOGY METHOD 12/10/2024 11:22 AM [facility] MCH 28.5 27.0 - 32.0 pcg LAB HEMETOLOGY METHOD 12/10/2024 11:22 AM [facility] MCHC 31.9(L) 32.0 - 37.0 g/dL LAB HEMETOLOGY METHOD 12/10/2024 11:22 AM [facility] RDW 13.9 11.0 - 15.0 % LAB HEMETOLOGY METHOD 12/10/2024 11:22 AM [facility] Platelets 396 130 - 400 K/mcL LAB HEMETOLOGY METHOD 12/10/2024 11:[address] [facility] MPV 9.7 7.0 - 11.0 FL LAB HEMETOLOGY METHOD 12/10/2024 11:[address] [facility] NRBC 0.0 <1.0 % LAB HEMETOLOGY METHOD 12/10/2024 11:[address] [facility] NRBC Absolute 0.00 <0.10 K/mcL LAB HEMETOLOGY METHOD 12/10/2024 11:[address] [facility] Blood Venous blood specimen / Unknown Venipuncture / Unknown 12/10/2024 7:30 AM EST 12/10/2024 10:55 AM EST us Benjamin Kim MD LAB BLOOD ORDERABLES Final Resul t [facility] [address] [place] [address], documented in this encounter Visit Diagnoses Diagnosis Essential (primary) hypertension Unspecified essential hypertension documented in this encounter Care Teams Premium Note Interest Calculator Clerk Relationship Specialty Start Date End Date Tara Paniagua RN [address] [place] [phone] PCP - General 07/24/22 documented as of this encounter
--- OUTSIDE RECORDS SUMMARY | 2025-08-25 13:40 | XMS_ITS | Encounter Summary ---
Author Organization [facility] Address [address] [place] [address] Care Team Providers Care Electrical Estimator Name Role Phone Tara Paniagua RN Primary Care Provider [phone] Encounter Details Date Type Department Care Team (Late Contact Info) Description 12/28/2024 Lab Requisition [facility] - Main Lab [address] [facility] [place] [address] Benjamin Kim MD 38 [facility] 204 [place], [address] Heart failure, unspecified (CMS/HCC V24, CMS/HCC [...] Info) Description 09/14/2025 10:00 AM EST Evaluation [facility] 175 [facility] 350 [place] [address] Viktoriya Zaman, PT documented as [...] mmol/L LAB CHEMISTRY METHOD 12/29/2024 3:20 PM [facility] Potassium 4.2 3.5 - 5.5 mmol/L LAB CHEMISTRY METHOD 12/29/2024 3:20 PM [facility] Chloride 107 96 - 110 mmol/L LAB CHEMISTRY METHOD 12/29/2024 3:20 PM [facility] CO2 30 21 - 32 mmol/L LAB CHEMISTRY METHOD 12/29/2024 3:20 PM [facility] Anion Gap 6 3 - 11 LAB CHEMISTRY METHOD 12/29/2024 3:20 PM [facility] Glucose 114(H) 70 - 100 mg/dL LAB CHEMISTRY METHOD 12/29/2024 3:20 PM [facility] BUN 37(H) 5 - 25 mg/dL LAB CHEMISTRY METHOD 12/29/2024 3:20 PM [facility] Creatinine 1.03 0.50 - 1.10 mg/dL LAB CHEMISTRY METHOD 12/29/2024 3:20 PM [facility] eGFR 66 >=60 mL/min/1. 73m2 LAB CHEMISTRY METHOD 12/29/2024 3:20 PM [facility] Comment:Calculation based on the Chronic Kidney Disease Epidemiology Collaboration (CKD-EPI) equation refit without adjustment for race. BUN/Creatinine Ratio 35.9 LAB CHEMISTRY METHOD 12/29/2024 3:20 PM [facility] Calcium 9.7 8.5 - 10.5 mg/dL LAB CHEMISTRY METHOD 12/29/2024 3:20 PM [facility] Blood Venous blood specimen / Unknown Venipuncture / Unknown 12/29/2024 7:42 AM EST 12/29/2024 11:02 AM EST us Benjamin Kim MD LAB BLOOD ORDERABLES Final Resul t [facility] [address] [place] [address], * (ABNORMAL) Complete blood count (12/29/2024 7:42 AM EST) WBC 5.8 4.8 - 10.8 K/mcL LAB HEMETOLOGY METHOD 12/29/2024 11:32 AM [facility] RBC 3.90 3.80 - 4.80 M/mcL LAB HEMETOLOGY METHOD 12/29/2024 11:32 AM [facility] Hemoglobin 11.2(L) 11.5 - 16.0 g/dL LAB HEMETOLOGY METHOD 12/29/2024 11:32 AM [facility] Hematocrit 36.0 35.0 - 47.0 % LAB HEMETOLOGY METHOD 12/29/2024 11:32 AM [facility] MCV 91.8 79.0 - 98.0 FL LAB HEMETOLOGY METHOD 12/29/2024 11:32 AM [facility] MCH 28.6 27.0 - 32.0 pcg LAB HEMETOLOGY METHOD 12/29/2024 11:32 AM [facility] MCHC 31.1(L) 32.0 - 37.0 g/dL LAB HEMETOLOGY METHOD 12/29/2024 11:32 AM [facility] RDW 14.1 11.0 - 15.0 % LAB HEMETOLOGY METHOD 12/29/2024 11:32 AM [facility] Platelets 282 130 - 400 [...] Resul t [facility] [address] [place] [address], documented in this encounter Visit Diagnoses Diagnosis Heart failure, unspecified (CMS/HCC V24, CMS/HCC V28) Heart failure, unspecified documented in this encounter Care Teams Electrical Estimator Relationship Specialty Start Date End Date Tara Paniagua RN [address] [place] [phone] PCP - General 07/24/22 documented as of this encounter
--- OUTSIDE RECORDS SUMMARY | 2025-08-25 13:40 | XMS_ITS | Encounter Summary ---
Author Organization [employer] Address [address] [facility] 7t [place] [address] Care Team Providers Care Rejector Name Role Phone Hilda Butt MD Primary Care Provider [phone] Reason for Visit * Reason Onset Date Comments Med Refill 08/10/2024 Encounter Details Date Type Department Care Team ([facility] Contact Info) Description 08/10/2024 Refill [facility] MED & PEDS [address] [place], [place] [phone] Hilda Butt MD [address] [place] [address] Social History Tobacco Use Types Packs/Day Years [...] documented as of this encounter Care Teams Rejector Relationship Specialty Start Date End Date Hilda Butt MD [address] [place] [address] PCP - General Family Medicine 06/20/22 Wilfrido 04/08/25 documented as of this encounter
--- OUTSIDE RECORDS SUMMARY | 2025-08-25 13:40 | XMS_ITS | Encounter Summary ---
Author Organization [employer] Address [address] [facility] 7t [place] [address] Care Team Providers Care Cosmetology Instructor Name Role Phone Hilda Butt MD Primary Care Provider [phone] Reason for Visit * Reason Onset Date Comments Med Refill 11/17/2024 Encounter Details Date Type Department Care Team ([facility] st Contact Info) Description 11/17/2024 Refill [facility] MEDICINE [address] [place], [place] [phone] Hilda Butt MD [address] [place], [place] [phone] Social History Tobacco Use Types Packs/Day Years [...] documented as of this encounter Care Teams Cosmetology Instructor Relationship Specialty Start Date End Date Hilda Butt MD [address] [place] [address] PCP - General Family Medicine 06/20/22 Wilfrido 04/08/25 documented as of this encounter
--- OUTSIDE RECORDS SUMMARY | 2025-08-25 13:40 | XMS_ITS | Clinical Summary ---
Author Organization [employer] Address 75 [facility] 7t [place] [address] Care Team Providers Care Knowledge Management Consultant Name Role Phone Hilda Butt MD Primary Care Provider [phone] Allergies Active Allergy Reactions Criticality Noted Date [...] EVERY MORNING 100 g 3 024 Active Emollient (DermaPhor) ointmentIndicat ions:Itchy skin of anus and genitals APPLY TO AFFECTED AREA(S) OF DRY SKIN NEEDED (BULK) 396 g 3 024 Active liver oil-zinc oxide (Desitin) 40 % ointment APPLY TOPICALLY TO RECTUM DAILY IF NEEDED FOR IRRITATION 113 g 3 025 Active Petrolatum 42 % ointment APPLY [...] EACH NOSTRIL ONCE DAILY (BULK) 16 g 5 025 Active furosemide (Lasix) 20 MG tablet TAKE ONE TABLET BY MOUTH EVERY DAY ^1R1 30 tablet 5 025 Active meclizine (Antivert) 12.5 MG tablet TAKE ONE TABLET BY MOUTH EVERY 8 HOURS NEEDED FOR DIZZINESS (VIAL) 60 tablet 5 025 Active pantoprazole (ProtoNix) 40 MG EC tablet TAKE ONE TABLET BY MOUTH EVERY DAY ^1R1 30 tablet 5 025 Active tiZANidine (Zanaflex) 2 MG tablet TAKE ONE TABLET BY MOUTH EVERY 8 HOURS NEEDED FOR SPASMS OR SPASM PAIN (VIAL) 30 tablet 5 025 Active traZODone (Desyrel) 100 MG tablet [...] obstructive pulmonary disease with acute exacerbation (CMS/HCC) ([facility]) INHALE ONE PUFF BY MOUTH EVERY 6 HOURS NEEDED FOR SHORTNESS OF BREATH OR COUGH (BULK) 6.7 g 6 025 Active sertraline (Zoloft) 50 MG tablet TAKE ONE TABLET BY MOUTH EVERY DAY ^1R1 30 tablet 11 025 Active atorvastatin (Lipitor) 80 MG tablet TAKE ONE TABLET BY MOUTH EVERY MORNING ^1R1 90 tablet 3 025 Active metoprolol tartrate (Lopressor) 25 MG tablet 025 Active fexofenadine (Lexy) 180 MG tablet Take 1 tablet (180 mg) by mouth Once per day. 90 tablet 3 025 2024 Active ipratropium-alb uterol (Duo-Neb) 0.5-2.5 mg/3 mL nebulizer solution Take 3 mL by nebulization in the morning, at noon, and at bedtime. 180 mL 3 Active budesonide-form oterol (Symbicort) 80-4.5 MCG/ACT inhaler Inhale 2 puffs in the morning and at bedtime. Rinse mouth with water after use to reduce aftertaste and incidence of candidiasis. Do not swallow. 1 each 025 2025 Active Umeclidinium [place] (Incruse Ellipta) 62.5 MCG/ACT aerosol powder Inhale 1 Act (62.5 mcg) Once per day. 1 each Active cholecalciferol VITAMIN D (Vitamin D-3) 50 MCG (1999 UT) capsuleIndicati ons:Vitamin D deficiency TAKE ONE CAPSULE BY MOUTH EVERY MORNING ^1R1 30 capsule 5 025 Active gabapentin (Neurontin) 100 MG capsule TAKE 2 CAPSULES BY MOUTH THREE TIMES DAILY 180 capsule 1 025 Active ibuprofen 400 MG tablet TAKE ONE TABLET BY MOUTH THREE TIMES A DAY (VIAL) 90 tablet Active montelukast (Singulair) 10 MG tablet TAKE ONE TABLET BY MOUTH EVERY EVENING AT BEDTIME ^1R4 30 tablet 11 025 Active Ascorbic Acid (vitamin C) 250 MG tablet TAKE ONE TABLET BY MOUTH EACH MORNING WITH IRON ^1R1 30 tablet 11 Active zolpidem (Ambien) 5 MG tablet TAKE ONE TABLET BY MOUTH AT BEDTIME NEEDED FOR SLEEP FOR UP TO 5 DAYS (VIAL) 5 tablet 025 Active Ascorbic Acid (vitamin C) 250 MG tablet TAKE 1 TABLET BY MOUTH EACH MORNING WITH IRON ^1R1 90 tablet 3 024 2024 Discontinued montelukast (Singulair) 10 MG tablet Take 1 tablet (10 mg) by mouth at bedtime. 90 tablet 3 024 2024 Discontinued cholecalciferol VITAMIN D (Vitamin D-3) 50 MCG (1999 UT) capsuleIndicati ons:Vitamin D deficiency TAKE ONE CAPSULE BY MOUTH EVERY MORNING ^1R1 30 capsule 5 025 2024 Discontinued gabapentin (Neurontin) 100 MG capsule Take 2 capsules (200 mg) by mouth 3 times daily. 180 capsule 1 025 2024 Discontinued(R eorder (will not trigger notification to Pharmacy)) ibuprofen 400 MG tablet TAKE 1 TABLET BY MOUTH THREE TIMES A DAY 90 tablet 025 2024 Discontinued(R eorder (will not trigger notification to Pharmacy)) zolpidem (Ambien) 5 MG tablet TAKE ONE TABLET BY MOUTH IF NEEDED AT BEDTIME FOR SLEEP FOR UP TO 5 DAYS (VIAL) 5 tablet 025 2024 Discontinued ibuprofen 400 MG tablet TAKE 1 TABLET BY MOUTH THREE TIMES A DAY 90 tablet 025 2024 Discontinued Active Problems Problem [...] Plan (11/19/2023 11:17 AM EST): Referred to [facility] Urticarial rash 10/21/2023 Assessment & Plan (10/21/2023 [...] and results to Dr Ramirez, neurologist at [facility] regarding her sensation of pain and buzzing in the ears and head and whether it is related to history of vertebral artery dissection Assessment & Plan (02/24/2024 8:17 AM EDT): Unclear exactly what happened with neurologist Dr Rodrigues at [facility], she claims she was told she could not be seen at their practice and referred to [facility]. - recommend CT scan to evaluate dissection - see Dr Ramirez at [facility] Assessment & Plan (11/19/2023 11:22 AM [...] & Plan (11/03/2024 8:20 AM EST): Had PERSONAL LINES AGENT-D placed by Dr Chen at [place] [id number]. Dizziness and SOB had improved immediately after [...] & Plan (06/11/2024 8:46 AM EDT): Had PERSONAL LINES AGENT-D placed by Dr Chen at [facility] 9. Dizziness and SOB had improved immediately after placement, then worse again after COVID Supposed to undergo 24-32 weeks of cardiac rehab, went to 4 and then authorization I replaced the order today for ongoing cardiac rehabilitation, pt needs this to get stronger and more active safely Assessment & Plan (11/19/2023 11:21 AM EST): Had PERSONAL LINES AGENT-D placed by Dr Chen at [facility] 07.24. Dizziness and SOB had improved immediately after placement, then worse again after COVID Assessment & Plan (07/07/2023 9:11 AM EDT): Having PERSONAL LINES AGENT-D placed by Dr Chen at [facility] 07.24. Will evaluate SOB and other symptoms after that Assessment & Plan (11/13/2022 7:48 AM EST): EF 35% Followed by cardiology, Shannan Pinon at [facility] Carotid artery disease 11/08/2022 Allergic conjunctivitis 09/28/2022 Atherosclerosis of aorta 09/28/2022 Atherosclerosis of right carotid artery 09/28/20 22 Bipolar II disorder ([facility]) 09/28/2022 Assessment & Plan (06/11/2024 8:49 AM EDT): Had been on Seroquel and then Depakote, discontinued both due to concerns about side effects psychofarm followup last 02/2022 Strong anxiety component currently with partner anxiety Will try SSRI for anxiety and speak with pychofarm and then patient about restarting mood stabilizer, Seroquel or [place] Assessment & Plan (06/12/2023 10:05 AM EDT): [...] Plan (06/02/2023 11:49 AM EDT): Followed by Dr Quyen jackson Due to LBBB causing non-ischemic cardiomyopathy, consideration [...] to better stage her COPD Followup via phone/[employer] message if coughing not imporved within a [...] R endarterectomy 11/22/24 Letter given for increased STATISTICAL METHODS TEACHER hours in post-op period ER precautions Assessment & Plan (06/11/2024 8:40 AM EDT): Followed by manuel and wendy for this They have not recommended carotid endarterectomy Assessment & Plan (01/23/2024 3:10 PM EDT): Refer to vascular for symptomatic internal carotid artery stenosis, consult vascular about potential carotid endarterectomy Encounter for routine adult physical exam with abnormal findings 11/19/2023 05/12/2025 Assessment & Plan (11/19/2023 11:20 AM EST): Referred for colon cancer screening Declines imms today Gastroesophageal reflux dise ase without esophagitis 07/07/2023 05/09/2025 Assessment & Plan (07/07/2023 9:11 AM EDT): Cont Pantoprazole 40mg now once a day Class 1 obesity with serious comorbidity and body mass index (BMI) of 33.0 to 33.9 in adult 07/03/2017 05/12/2025 Assessment & Plan (11/13/2022 7:46 AM EST): Diet efforts Encounters Date Type Department Care Team Description 08/24/[address] [facility] MED[facility] [address] [place] [address] Hilda Butt MD Durable Medical Equipment 08/22/2025 Telephone C MEDICINE [address] [place] [address] Hilda Butt MD Med Refill 08/16/[address] [facility] [address] [place] [address] Hilda Butt MD 08/15/[address] [facility] [address] [place] [address] Hilda Butt MD 08/03/[address] [facility] [address] [place] [address] Hilda Butt MD Durable Medical Equipment 08/01/[address] [facility] [address] [place] [address] Hilda Butt MD Med Refill 08/01/[address] [facility] [address] [place] [address] Hilda Butt MD Vitamin D deficiency 07/26/2025 Orders Only [facility] MEDICINE [address] [place] [address] Hilda Butt MD 07/20/2025 Refill C MEDICINE [address] [place] [address] Hilda Butt MD 07/18/2025 2:[address] [facility] [address] [facility] [place] [address] Hilda Butt MD Mild chronic obstructive pulmonary disease (CMS/HCC) (Primary Dx); COPD exacerbation ([facility]) 07/18/2025 Travel 07/15/[address] [facility] [address] [facility] [place] [address] Hilda Butt MD 07/12/[address] [facility] [address] [place] [address] Hilda Butt MD 07/08/[address] [facility] [address] [place] [address] Hilda Butt MD Pre-visit Planning (SDOH screening completed on 04/19/2025) 07/06/[address] [facility] [address] [place] [address] Hilda Butt MD 06/24/2025 3:15 PM EDT Office Visit [facility] [address] [place] [address] Hilda Butt MD Cough, unspecified type 06/24/2025 Travel 06/23/[address] [facility] [address] [place] [address] Hilda Butt MD 06/22/[address] [facility] [address] [place] [address] Hilda Butt MD 06/21/[address] [facility] [address] [place] [address] Hilda Butt MD 06/20/[address] [facility] [address] [place] [address] Hilda Butt MD Nurse Triage 06/15/[address] [facility] [address] [place] [address] Hilda Butt MD 06/13/[address] [facility] [address] [place] [address] Hilda Butt MD Chronic obstructive pulmonary disease with acute exacerbation (CMS/HCC) 06/02/[address] [facility] [address] [place], [place] [phone] Hilda Butt MD Med Refill 05/26/[address] [facility] [address] [place], [place] [phone] Allyn Whaley, DANYA from Last 3 Months Immunizations Immunization Administration [...] Blood Pressure 118/80( 025 3:11 PM EDT) Daria Duncan PharmD Procedures Procedure Name Priority Date/Time Associated Diagnosis Comments BI MAMMOGRAM DIAGNOSTIC TOMOSYNTHESIS BILATERAL Routine 07/26/2025 2:30 PM EDT POCT RAPID COVID ANTIGEN Routine 06/24/2025 3:30 PM EDT Cough, unspecified type HPV MRNA E6/E7 REFLEX TO HPV 16, [...] PM EDT Narrative 07/26/2025 6:44 PM EDT [facility] [address] [place] [address] Mammography Report Signed Patient: Renita Brandon MR#: [id number] 4 : 1970 Acct:[id number] Age/Sex: 55 / F ADM Date: 07/26/25 Loc: HO.MAMMO Attending Dr: Hilda Butt MD Ordering Physician: Hilda Butt Results: 1Negative Date of Service: 07/26/25 Follow Up: 1 Year From Orig inal Mammogram Procedure(s): MM tomosynthesis diagnostic BI Accession Number(s): [id number] cc: Hilda Butt Reason For Exam: HX [...] 07/26/25 1841 DD/ 1430 TD/TT: 07/26/25 1454 Business Office Specialist: Procedure Note Donotuseinterpreter, Image - 07/26/2025 [facility] [address] [place] [address] Mammography Report Signed Patient: Renita BrandonMR#: [id number] 4 : 1970Acct:[id number] Age/Sex: 55 / FADM Date: 07/26/25 Loc: HO.MAMMO Attending Dr: Hilda Butt MD Ordering Physician: Sunil Buttults: 1Negative Date of Service: 07/26/25Follow Up: 1 Year From Orig inal Mammogram Procedure(s): MM tomosynthesis diagnostic BI Accession Number(s): [id number] cc: Hilda Butt Reason For Exam: HX [...] Joel MD Signed By: <Electronically signed by Rboerto Joel MD in OV> 07/26/25 1841 DD/ 1430 TD/TT: 07/26/25 1454 Business Office Specialist: Hilda Butt MD IMG BI PROCEDURES Final Result * POCT Rapid Covid-19 BinaxNOW (06/24/2025 3:30 PM EDT) Pathologist [facility] Rapid COVID Ag Negative QC Media Lot # [id number] Lot# Expiration Date 72,526 Swab 06/24/2025 3:30 [...] alternative testing options.For additional information, please refer tohttp://education.Uromedica/faq/FFO508i9(This link if provided for information/educational purposes only.)THIS TEST WAS PERFORMED AT:[facility] [place] [id number] GARCIA MD HPV mRNA E6/E7 TNP [facility] HPV 16 RNA TNP [facility] HPV 18/45 RNA TNP [facility] 02/20/2024 12:1 2 PM EDT 02/24/2024 7:30 AM EDT us Hilda Butt MD LAB CYTOLOGY ORDERABLES Final Result [facility] [address] [place] [address] [phone] * Pap Smear (02/20/2024 12:12 PM EDT) 02/20/2024 12:1 2 PM EDT 02/24/2024 7:30 AM EDT Narrative [facility] - 03/13/2024 5:52 PM EDT ----- ------- Name: Renita Brandon Age/Sex: 53/F : 1970 Unit#: [id number] Attend Dr: Hilda Butt Re02/20/24 Status: DEP REF Location: HO.LNP Disch: ----- ------- SPEC : [id number] RECD: 02/24/24 STATUS: LISA ESTRELLA NUM: [id number] ANNE: 02/20/24-[address] [facility] [address]: Hilda Butt ENTERED: 02/24/24 SP TYPE: Pap Smr OTHR DR: ORDERED: Pap Smear Interpretation Satisfactory for evaluation. Negative for intraepithelial lesion or malignancy. HPV mRNA E6/E7: NOT DETECTED This assay detects E6/E7 viral messenger RNA (mRNA) from 14 high-risk HPV types (16, 18, 31, 33, 35, 39, 45, 51, 52, 56, 58, 59, 66, 68) HPV testing performed by [employer], [place], [place]. See reference laboratory portion of the EMR for entire report. Clinical Information LMP: Postmenopausal Previous PAP test: 2019, NILM Other surgery:Hysterectomy, cervical sparing in 2021 for fibroids Other history: No prior abnormal Material Received ThinPrep-Cervical ----- ------- Signed (signature on file) Amparo Cummings Michelle 03/13/241751 ----- ------- END OF REPORT Hilda Butt MD LAB CYTOLOGY ORDERABLES Final Result [facility] [address] [place] [address] [phone] * HEPATITIS C AB W/REFL TO HCV RNA, QN, PCR (05/09/2022 4:02 PM EDT) HEPATITIS C ANTIBODY NON-REACT KRISTIN NON-REACT KRISTIN [facility] INDEX 0.08 <1.00 [facility] Comment: HCV antibody was non-reactive. There is no laboratory evidence of HCV infection. In most cases, no further action is required. However, if recent HCV exposure is suspected, a test for HCV RNA (test code 50635) is suggested. For additional information please refer to http://[employer].Uromedica/faq/UVQ84k0 (This link is being provided for informational/ educational purposes only.) 05/09/2022 4:[address] [facility] HISTORICAL/NON ORDERABLE LABS Final Result [facility] [address] * HIV 1/2 ANTIGEN/ANTIBODY,FOURTH GENERATION W/RFL (05/09/2022 4:02 PM EDT) HIV-1/2 ANTIGEN AND ANTIBODIES, 4TH GENERATION W/ REFLEX NON-REACT KRISTIN NON-REACT KRISTIN [facility] Comment: HIV-1 antigen and HIV-1/HIV-2 [...] purpose. For additional information please refer to http://[employer].U[employer]edica/faq/GXY640 (This link is being provided for informational/ educational purposes only.) The performance of this assay has not been clinically validated in patients less than 2 years old. 05/09/2022 4:[address] [facility] LAB BLOOD ORDERABLES Final Res ult Performing Organization Address [facility] de Phone Number [facility] [address] * (ABNORMAL) LIPID PANEL, STANDARD (03/29/2022 [...] LDL-C. Kirk SS et al. RUTH. 2013;310(19): 0750-4732 (http://education.Fastacash.[employer]X Polymers/faq/DPO017) Non-HDL Cholesterol 166(H) <130 mg/dL (calc) [facility] [...] Clin. Lipidol. 2015;9:129-169. 03/29/2022 3:[address] [facility] LAB BLOOD ORDERABLES Final Res ult Performing Organization Address [facility] Co de Phone Number [facility] [address] [place] [address], [place] from Last 3 Months or Most Recently Relevant to Health Maintenance Insurance [facility] < 65 [address] [id number] Care Teams Knowledge Management Consultant Relationship Specialty Start Date End Date Hilda Butt MD [address] [place] [phone] PCP - General Family Medicine 06/20/22 [place] 04/08/25
--- OUTSIDE RECORDS SUMMARY | 2025-08-25 13:40 | XMS_ITS | Encounter Summary ---
Author Organization [employer] Address [address] [facility] 7t [place] [address] Care Team Providers Care Electrical Design Technologist Name Role Phone Hilda Butt MD Primary Care Provider [phone] Reason for Visit * Reason Onset Date Comments Med Refill 11/19/2024 Encounter Details Date Type Department Care Team ([facility] st Contact Info) Description 11/19/2024 Refill [facility] MEDICINE [address] [place], [place] [phone] Hilda Butt MD [address] [place], [place] [phone] Chronic obstructive pulmonary disease with acute exacerbation [...] documented as of this encounter Care Teams Electrical Design Technologist Relationship Specialty Start Date End Date Hilda Butt MD [address] [place] [address] PCP - General Family Medicine 06/20/22 [place] 04/08/25 documented as of this encounter
--- OUTSIDE RECORDS SUMMARY | 2025-08-25 13:40 | XMS_ITS | Encounter Summary ---
Author Organization [employer] Address [address] [facility] 7t [place] [address] Care Team Providers Care Broiler Chef Or Cook Name Role Phone Hilda Butt MD Primary Care Provider [phone] Reason for Visit * Reason Onset Date Comments Med Refill 11/05/2024 Encounter Details Date Type Department Care Team ([facility] st Contact Info) Description 11/05/2024 Refill [facility] MEDICINE [address] [place], [place] [phone] Hilda Butt MD [address] [place], [place] [phone] Social History Tobacco Use Types Packs/Day Years [...] documented as of this encounter Care Teams Broiler Chef Or Cook Relationship Specialty Start Date End Date Hilda Butt MD [address] [place] [address] PCP - General Family Medicine 06/20/22 Wilfr[place] 04/08/25 documented as of this encounter
--- OUTSIDE RECORDS SUMMARY | 2025-08-25 13:40 | XMS_ITS | Clinical Summary ---
Author Organization [address] [facility] Address [address] [place] [address] Phone Care Team Providers Care Car Mechanic Name Role Phone Tara Paniagua RN Primary Care Provider [phone] Surgical History Surgery Date Site/Laterality Comments TUBAL LIGATION PROCEDURE: HISTORICAL TUBAL LIGATION BUNIONECTOMY PROCEDURE: [place] CORRJ HLX VLGS BNCTY SESMDC W/DOUBLE OSTEOTOMY [...] Upcoming Encounters Date Type Department Care Team ([facility] st Contact Info) Description 09/14/2025 10:00 AM EST Evaluation [facility] [address] [facility] [address] [place] [phone] Viktoriya Zaman, PT Health Maintenance Due Date Last Done Comments Breast Cancer Screening 1972 Colorectal Cancer Screening: Colonoscopy 1972 RSV Immunization Adult Patients (1 - Risk 50-74 years 1-dose series) 2022 Hepatitis C Screening 09/29/2022 Medicare Annual Wellness [...] 02/09/2025 7:58 AM EDT Heart failure, unspecified ([facility] V24, [facility] V28) from Last 3 Months or Most Recently Relevant to Health Maintenance Results * Basic metabolic panel (02/09/2025 7:58 AM EDT) Sodium 139 133 - 145 mmol/L LAB CHEMISTRY METHOD 02/09/2025 12:40 PM [facility] Potassium 3.8 3.5 - 5.5 mmol/L LAB CHEMISTRY METHOD 02/09/2025 12:40 PM [facility] Chloride 104 96 - 110 mmol/L LAB CHEMISTRY METHOD 02/09/2025 12:40 PM [facility] CO2 28 21 - 32 mmol/L LAB CHEMISTRY METHOD 02/09/2025 12:40 PM [facility] Anion Gap 7 3 - 11 LAB CHEMISTRY METHOD 02/09/2025 12:40 PM [facility] Glucose 93 70 - 100 mg/dL LAB CHEMISTRY METHOD 02/09/2025 12:40 PM [facility] BUN 17 5 - 25 mg/dL LAB CHEMISTRY METHOD 02/09/2025 12:40 PM [facility] Creatinine 0.54 0.50 - 1.10 mg/dL LAB CHEMISTRY METHOD 02/09/2025 12:40 PM [facility] eGFR 111 >=60 mL/min/1. 73m2 LAB CHEMISTRY METHOD 02/09/2025 12:40 PM [facility] Comment:Calculation based on the Chronic Kidney Disease Epidemiology Collaboration (CKD-EPI) equation refit without adjustment for race. BUN/Creatinine Ratio 31.5 LAB CHEMISTRY METHOD 02/09/2025 12:40 PM [facility] Calcium 9.6 8.5 - 10.5 mg/dL LAB CHEMISTRY METHOD 02/09/2025 12:40 PM EDT [facility] Blood Venous blood specimen / Unknown Venipuncture / Unknown 02/09/2025 7:58 AM EDT 02/09/2025 11:12 AM EDT us Benjamin Kim MD LAB BLOOD ORDERABLES Final Resul t [facility] [address] [place] [address], [place] [phone] from Last 3 Months or Most Recently Relevant to Health Maintenance Insurance [employer] MEDICARE Member Subscriber Plan / Payer (Ef fective 2023-Present) Name:BETHANY VALVERDE Relation to Subscriber:Self Name:Bethany Valverde Payer ID:[id number] Group ID:[id number] Type:Not on file Address: [facility] [place] [phone] Advance Directives Documents on File Type Date Recorded Patient Sales Administration Manager Expl anation Health Care Decision (hx) 02/06/2024 AD ORTIZ DIRECTIVE Health Care Decision (hx) 02/06/2024 AD ORTIZ DIRECTIVE Health Care Decision (hx) 02/06/2024 AD ORTIZ DIRECTIVE Health Care Decision (hx) 02/04/2023 AD ORTIZ DIRECTIVE Care Teams Car Mechanic Relationship Specialty Start Date End Date Tara Paniagua RN [address] [place] [phone] PCP - General 07/24/22
--- OUTSIDE RECORDS SUMMARY | 2025-08-25 13:40 | XMS_ITS | Encounter Summary ---
Author Organization [employer] Address [address] [facility] 7t [place] [address] Care Team Providers Care Tipple Mechanic Name Role Phone Hilda Butt MD Primary Care Provider [phone] Reason for Visit * Reason Comments Med Refill Encounter Details Date Type Department Care Team ([facility] st Contact Info) Description 11/16/2024 Refill [facility] MEDICINE [address] [place], [place] [phone] Hilda Butt MD [address] [place], [place] [phone] Vitamin D deficiency Social History Tobacco Use [...] documented as of this encounter Care Teams Tipple Mechanic Relationship Specialty Start Date End Date Hilda Butt MD [address] [place] [address] PCP - General Family Medicine 06/20/22 Wilfrido 04/08/25 documented as of this encounter
--- OUTSIDE RECORDS SUMMARY | 2025-08-25 13:40 | XMS_ITS | Encounter Summary ---
Author Organization [employer] Address [address] [facility] 7t [place] [address] Care Team Providers Care Fish Peddler Name Role Phone Hilda Butt MD Primary Care Provider [phone] Encounter Details Date Type Department Care Team ([facility] Contact Info) Description 09/21/2024 Orders Only [facility] MEDICINE [address] [place], [place] [phone] Hilda Butt MD [address] [place], [place] [phone] Social History Tobacco Use Types Packs/Day Years [...] documented as of this encounter Care Teams Fish Peddler Relationship Specialty Start Date End Date Hilda Butt MD [address] [place] [address] PCP - General Family Medicine 06/20/22 Stareashelly 04/08/25 documented as of this encounter
--- OUTSIDE RECORDS SUMMARY | 2025-08-25 13:40 | XMS_ITS | Encounter Summary ---
Author Organization [employer] Address 75 [facility] 7t [place] [address] Care Team Providers Care Psych Specialist Name Role Phone Hilda Butt MD Primary Care Provider [phone] Reason for Visit * Reason Onset Date Comments Med Refill 11/19/2024 Encounter Details Date Type Department Care Team ([facility] st Contact Info) Description 11/19/2024 Refill [facility] [address] [place], [place] [phone] Hilda Butt MD [address] [place] [address] Social History Tobacco Use Types Packs/Day Years [...] documented as of this encounter Care Teams Psych Specialist Relationship Specialty Start Date End Date Hilda Butt MD [address] [place] [address] PCP - General Family Medicine 06/20/22 Wilfrido 04/08/25 documented as of this encounter
--- OUTSIDE RECORDS SUMMARY | 2025-08-25 13:40 | XMS_ITS | Encounter Summary ---
Author Organization [employer] Address 75 [facility] 7t [place] [address] Care Team Providers Care Sand Shoveler Name Role Phone Hilda Butt MD Primary Care Provider [phone] Reason for Visit * Reason Onset Date Comments Med Refill 11/18/2024 Encounter Details Date Type Department Care Team ([facility] st Contact Info) Description 11/18/2024 Refill [facility] [address] [place], [place] [phone] Hilda Butt MD [address] [place] [address] Social History Tobacco Use Types Packs/Day Years [...] as of this encounter Care Teams Sand Shoveler Relationship Specialty Start Date End Date Hilda Butt MD [address] [place] [address] PCP - General Family Medicine 06/20/22 Wilfrido 04/08/25 documented as of this encounter
--- OUTSIDE RECORDS SUMMARY | 2025-08-25 13:40 | XMS_ITS | Encounter Summary ---
Author Organization [employer] Address [address] [facility] 7t [place] [address] Care Team Providers Care Printer Slotter Operator Name Role Phone Hilda Butt MD Primary Care Provider [phone] Reason for Visit * Reason Onset Date Comments Med Refill 11/03/2024 Encounter Details Date Type Department Care Team ([facility] st Contact Info) Description 11/03/2024 Refill [facility] MEDICINE [address] [place], [place] [phone] Hilda Butt MD [address] [place], [place] [phone] Social History Tobacco Use Types Packs/Day Years [...] documented as of this encounter Care Teams Printer Slotter Operator Relationship Specialty Start Date End Date Hilda Butt MD [address] [place] [address] PCP - General Family Medicine 06/20/22 Wilfrido 04/08/25 documented as of this encounter
--- OUTSIDE RECORDS SUMMARY | 2025-08-25 13:40 | XMS_ITS | Encounter Summary ---
Author Organization [employer] Address [address] [facility] 7t [place] [address] Care Team Providers Care Electric Meter Tester Helper Name Role Phone Hilda Butt MD Primary Care Provider [phone] Reason for Visit * Reason Onset Date Comments Med Refill 01/22/2024 Encounter Details Date Type Department Care Team ([facility] st Contact Info) Description 01/22/2024 Refill [facility] MEDICINE [address] [place], [place] [phone] Hilda Butt MD [address] [place], [place] [phone] Social History Tobacco Use Types Packs/Day Years [...] documented as of this encounter Care Teams Electric Meter Tester Helper Relationship Specialty Start Date End Date Hilda Butt MD [address] [place] [address] PCP - General Family Medicine 06/20/22 [place] 04/08/25 documented as of this encounter
--- OUTSIDE RECORDS SUMMARY | 2025-08-25 13:41 | XMS_ITS | Encounter Summary ---
Author Organization [employer] Address [address] [facility] 7t [place] [address] Care Team Providers Care Supervisor Steffen House Name Role Phone Hilda Butt MD Primary Care Provider [phone] Reason for Visit * Reason Onset Date Comments Med Refill 12/03/2023 Encounter Details Date Type Department Care Team ([facility] st Contact Info) Description 12/03/2023 Refill [facility] MEDICINE [address] [place], [place] [phone] Hilda Butt MD [address] [place], [place] [phone] Social History Tobacco Use Types Packs/Day Years [...] as of this encounter Care Teams Supervisor Steffen House Relationship Specialty Start Date End Date Hilda Butt MD [address] [place] [address] PCP - General Family Medicine 06/20/22 Ave[place] 04/08/25 documented as of this encounter
--- OUTSIDE RECORDS SUMMARY | 2025-08-25 13:41 | XMS_ITS | Clinical Summary ---
Author Organization [facility] Address [address] [place] [address] Care Team Providers Care Harness Mender Name Role Phone Hilda Butt MD Primary Care Provider + Char Juarez MD Unavailable [phone] Allergies No known active allergies Medications lidocaine [...] place to sleep or slept in a custodial (including now)? No 01/17/2023 Comments Unknown Sex [...] 50+ (1 of 1 - PCV) 2022 RSV Vaccine 50 years and old er and Patients (1 - Risk 50-74 years 1-dose series) 2022 Zoster (Shingles) Vaccine (1 of 2) 2022 Influenza Vaccine 05/27/2025 07/17/2023, , 07/31/2021, Additional history exists COVID-19 Vaccine (5 - 2024-2 6 season) 2025 11/08/2022, 07/30/2022, 08/27/2021, Additional history exists HIV Screening Completed 05/09/2022 Chronic Controlled Substance User PDMP Review Discontinued 01/15/2023 Insurance MEDICAID OUT OF STATE [facility] [place] [place] A & B MISC MGD MEDICARE OUT OF NETWORK [place] [facility] Advance Directives * Full Code (Latest Code Status on File) Date Activated Date Inactivated Comments 01/16/2023 4:08 AM Question Answer Comments Decision Thoroughly Discussed with: Patient Care Teams Harness Mender Relationship Specialty Start Date End Date Hilda Butt MD [address] [place] [address] PCP - General General Medicine 01/16/23 Char Juarez MD [address] [place] [address] 01/16/23
--- OUTSIDE RECORDS SUMMARY | 2025-08-25 13:41 | XMS_ITS | Encounter Summary ---
Author Organization [employer] Address [address] [facility] 7t [place] [address] Care Team Providers Care Demographer Name Role Phone Hilda Butt MD Primary Care Provider [phone] Reason for Visit * Reason Onset Date Comments Med Refill 12/03/2023 Encounter Details Date Type Department Care Team ([facility] st Contact Info) Description 12/03/2023 Refill [facility] MEDICINE [address] [place], [place] [phone] Hilda Butt MD [address] [place], [place] [phone] Low back pain at multiple sites Social [...] documented as of this encounter Care Teams Demographer Relationship Specialty Start Date End Date Hilda Butt MD [address] [place] [address] PCP - General Family Medicine 06/20/22 Stareashelly 04/08/25 documented as of this encounter
--- OUTSIDE RECORDS SUMMARY | 2025-08-25 13:41 | XMS_ITS | Encounter Summary ---
Author Organization [employer] Address 75 [facility] 7t [place] [address] Care Team Providers Care Finish Specialist Name Role Phone Hilda Butt MD Primary Care Provider [phone] Reason for Visit * Reason Onset Date Comments Med Refill 12/04/2023 Encounter Details Date Type Department Care Team ([facility] st Contact Info) Description 12/04/2023 Refill [facility] MEDICINE [address] [place], [place] [phone] Hilda Butt MD [address] [place], [place] [phone] Itchy skin of anus and genitals Social [...] documented as of this encounter Care Teams Finish Specialist Relationship Specialty Start Date End Date Hilda Butt MD [address] [place] [address] PCP - General Family Medicine 06/20/22 Wilfrido 04/08/25 documented as of this encounter
--- OUTSIDE RECORDS SUMMARY | 2025-08-25 13:41 | XMS_ITS | Encounter Summary ---
Author Organization [employer] Address [address] [facility] 7t [place] [address] Care Team Providers Care Transfer Table Operator Helper Name Role Phone Hilda Butt MD Primary Care Provider [phone] Reason for Visit * Reason Comments Med Refill Encounter Details Date Type Department Care Team ([facility] st Contact Info) Description 06/21/2025 Refill [facility] MEDICINE [address] [place], [place] [phone] Hilda Butt MD [address] [place], [place] [phone] Social History Tobacco Use Types Packs/Day Years [...] as of this encounter Care Teams Transfer Table Operator Helper Relationship Specialty Start Date End Date Hilda Butt MD [address] [place] [address] PCP - General Family Medicine 06/20/22 Stareashelly 04/08/25 documented as of this encounter
--- OUTSIDE RECORDS SUMMARY | 2025-08-25 13:41 | XMS_ITS | Encounter Summary ---
Author Organization [employer] Address [address] [facility] 7t [place] [address] Care Team Providers Care Alteration Workroom Supervisor Name Role Phone Hilda Butt MD Primary Care Provider [phone] Encounter Details Date Type Department Care Team ([facility] st Contact Info) Description 11/20/2023 Abstract [facility] MEDICINE [address] [place], [place] [phone] Hilda Butt MD [address] [place], [place] [phone] Social History Tobacco Use Types Packs/Day Years [...] documented as of this encounter Care Teams Alteration Workroom Supervisor Relationship Specialty Start Date End Date Hilda Butt MD [address] [place] [address] PCP - General Family Medicine 06/20/22 Stareashelly 04/08/25 documented as of this encounter
--- OUTSIDE RECORDS SUMMARY | 2025-08-25 13:41 | XMS_ITS | Encounter Summary ---
Author Organization [employer] Address [address] [facility] 7t [place] [address] Care Team Providers Care Search Strategist Name Role Phone Hilda Butt MD Primary Care Provider [phone] Encounter Details Date Type Department Care Team ([facility] st Contact Info) Description 08/19/2023 Abstract [facility] MEDICINE [address] [place], [place] [phone] Hilda Butt MD [address] [place], [place] [phone] Social History Tobacco Use Types Packs/Day Years [...] t he electric, gas, oil or water [employer] threatened to shut off services in your [...] documented as of this encounter Care Teams Search Strategist Relationship Specialty Start Date End Date Hilda Butt MD [address] [place] [address] PCP - General Family Medicine 06/20/22 Stareashelly 04/08/25 documented as of this encounter
--- OUTSIDE RECORDS SUMMARY | 2025-08-25 13:41 | XMS_ITS | Encounter Summary ---
Author Organization [employer] Address [address] [facility] 7t [place] [address] Care Team Providers Care Hearings Reporter Name Role Phone Hilda Butt MD Primary Care Provider [phone] Reason for Visit * Reason Comments Med Refill Encounter Details Date Type Department Care Team ([facility] st Contact Info) Description 07/06/2025 Refill [facility] MEDICINE [address] [place], [place] [phone] Hilda Butt MD [address] [place], [place] [phone] Social History Tobacco Use Types Packs/Day Years [...] Pressure 118/80( 025 3:11 PM EDT) No aDria Cardoso, PharmD documented as of this encounter Visit Diagnoses Not on filedocumented in this encounter Additional Health Concerns Assessment Noted Time PHQ-9 Depression Total Score: 0 04/19/20 25 10:34 AM EDT documented as of this encounter Care Teams Hearings Reporter Relationship Specialty Start Date End Date Hilda Butt MD [address] [place] [address] PCP - General Family Medicine 06/20/22 Stareashelly 04/08/25 documented as of this encounter
--- OUTSIDE RECORDS SUMMARY | 2025-08-25 13:41 | XMS_ITS | Encounter Summary ---
Author Organization [employer] Address 75 [facility] 7t [place] [address] Care Team Providers Care Skip Hoist Operator Name Role Phone Hilda Butt MD Primary Care Provider [phone] Reason for Visit * Reason Onset Date Comments Durable Medical Equipment 08/03/2025 Encounter Details Date Type Department Care Team ([facility] Contact Info) Description 08/03/2025 Telephone [facility] MEDICINE [address] [place], [place] [phone] Hilda Butt MD [address] [place], [place] [phone] Durable Medical Equipment Social History Tobacco Use Types Packs/Day Years [...] encounter Miscellaneous Notes * Telephone Encounter - Lulu Hatfield - 08/03/2025 2:29 PM EDT Tc from pt requesting a new scrip for DME - nebulazer machine Pt stated she lost her last one To be send to [facility] documented in this encounter Plan of Treatment [...] documented as of this encounter Care Teams Skip Hoist Operator Relationship Specialty Start Date End Date Hilda Butt MD [address] [place] [address] PCP - General Family Medicine 06/20/22 Stareashelly 04/08/25 documented as of this encounter
--- OUTSIDE RECORDS SUMMARY | 2025-08-25 13:41 | XMS_ITS | Encounter Summary ---
Author Organization [employer] Address [address] [facility] 7t [place] [address] Care Team Providers Care Rehab Therapy Manager Name Role Phone Hilda Butt MD Primary Care Provider [phone] Encounter Details Date Type Department Care Team ([facility] st Contact Info) Description 08/19/2023 Abstract [facility] MEDICINE [address] [place], [place] [phone] Hilda Butt MD [address] [place], [place] [phone] Social History Tobacco Use Types Packs/Day Years [...] t he electric, gas, oil or water [email or web address] threatened to shut off services in your [...] documented as of this encounter Care Teams Rehab Therapy Manager Relationship Specialty Start Date End Date Hilda Butt MD [address] [place] [address] PCP - General Family Medicine 06/20/22 Stareashelly 04/08/25 documented as of this encounter
--- OUTSIDE RECORDS SUMMARY | 2025-08-25 13:41 | XMS_ITS | Data Portability ---
Author Organization [facility] [employer] ([facility]: [place]), [place] [facility] Address [address] [place] [address] Care Team Providers Care Leasing Assistant Name Role Phone HIM CCA OTHER Assessment Encounter Date Assessment Date Assessment LastModified by Organization Details LastModified Time 10/26/2023 10/26/2023 I provided real -time medical direction via phone for this encounter, and was available for additional phone based assistance as needed. I have reviewed and agree with the Assessment and Plan as documented by the Safety Physician. Patient given the opportunity to ask questions. [...] Assessment and Plan as documented by the Safety Physician. Patient given the opportunity to ask questions. [...] of any new or worsening serious symptoms [place] [id number] Not available 12/12/2023 21:18:10 Plan of Treatment Reminders Order Date Submit Date Provider Last Modified By Organization Details Last Modified Time Details Appointments None recorded. Lab rapid SARS CoV 2 Ag, QL IA, respiratory specimen 2022 [facility]23 [facility], [address] [place] [address], [id number] 3 17:51:19 Referral None recorded. Procedures None recorded. Surgeries None recorded. Imaging electrocard iogram [address], [phone] 4 17:16:38 Medication Orders prednisone 20 mg tablet 2023 024 [facility] Not available 4 14:59:40 prednisone 20 mg tablet 2023 024 [facility] Not available 4 14:59:40 doxycycline hyclate 100 mg tablet 2023 024 [facility], [address] [place] [address], [id number], 4 14:00:23 doxycycline hyclate 100 mg tablet 2023 024 [facility], [address] [place] [address], [id number], 4 14:59:40 Patient TargetsNo targets recorded. Patient InstructionsNo instructions recorded. Reason for Referral None Reported. Results Created Date Observation Date Name Description Value Unit Range Abnormal Flag Note LastModifiedBy Organization Detail LastModifiedTime 10/26/20 23 10/26/2023 rapid SARS CoV 2 Ag, QL IA, respi rator y speci men rapid SARS CoV 2 Ag, QL IA, respiratory specimen positi ve Not Available [facility] [address] [place] [address], [phone] 10/26/2023 17:48:34 11/02/19 24 11/02/2023 elect jet [email or web address] No observ ation record ed. [email or web address] [facility] [address] [place] [address], [phone] 11/02/2023 17:37:03 Result Notes None recorded. Medical Equipment None Reported. [...] Available Not Available No t Available omega 8-vlk-tzv-fis h oil 60 mg-90 mg-500 mg capsule [...] Available No t Available Vitals Date Recorded Body weight Respiratory rate Heart rate Body height Oxygen saturation Oxygen saturation in Arterial blood by Pulse oximetry Body temperature Systolic And Diastolic Provider Name and Address Organization Details Last Updated DateTime 4 53364.7 2 g 16 /min 107 /min 149.86 cm 99 % 99 % 99.3 [degF] 127/75 mm[Hg] Not Available [employer] [facility] production 4 14:43:50 Date Recorded Oxygen saturation Oxygen saturation in Arterial blood by Pulse oximetry Respiratory rate Body height Body temperature Heart rate Body weight Systolic And Diastolic Provider Name and Address Organization Details Last Updated DateTime 4 96 % 96 % 18 /min 149.86 cm 99.7 [degF] 95 /min 20395.7 2 g 149/85 mm[Hg] Not Available [employer] [facility] [employer] 4 21:15:31 Date Recorded Respiratory rate Oxygen saturation Oxygen saturation in Arterial blood by Pulse oximetry Body weight Heart rate Body temperature Body temperature Systolic And Diastolic Systolic And Diastolic Provider Name and Address Organization Details Last Updated DateTime 4 16 /min 97 % 97 % 33933.7 2 g 88 /min 100.6 [degF] 99.3 [degF] 110/70 mm[Hg] 94/70 mm[Hg] Not Available [employer] [employer] 4 17:31:32 Date Recorded Respiratory rate Body height Oxygen saturation Oxygen saturation in Arterial blood by Pulse oximetry Heart rate Body weight Body temperature Systolic And Diastolic Provider Name and Address Organization Details Last Updated DateTime 3 16 /min 149.86 cm 98 % 98 % 90 /min 35040.7 2 g 98.6 [degF] 155/80 mm[Hg] Not Available [facility] [employer] 3 17:48:09 Social History None recorded. Functional Status None recorded. Mental Status None recorded. Family History Nothing Reported. Medical History No medical history recorded. Gynecological HistoryNo gynecological history recorded. Obstetrics History GPAL:G 0 P 0 0 0 0 Past Encounters Encounter ID Performer Location Encounter Start Date Encounter Closed Date Diagnosis/Indication Diagnosis SNOMED-CT Code Diagnosis ICD10 Code Diagnosis IMO Codes Diagnosis Note [id number] Chandrika Harvey MD [facility] [address] [place] [phone] 10/26/2023 17:48:07 10/28/2023 12:39:36 Respiratory tract congestion and cough 221266321 R05.9 [id number] NIKIA AMATO MD [facility] [address] [place] [phone] 11/02/2023 14:43:48 11/03/2023 12:13:44 Acute exacerbation of chronic obstructive pulmonary disease 597018647 J44.1 Evaluation in the field was performed by my marine mammal trainer colleague, as noted above, I provided real-time [...] concerns. Chandrika Harvey MD [facility] [address] [place] [phone] 12/12/2023 21:15:30 12/13/2023 12:40:12 Chronic low back pain 209139631 M54.50 [id number] Jorge Luis Gates MD [facility] [address] [place] [phone] 07/02/2024 17:31:28 07/05/2024 22:19:44 Hypotensive episode 67829859 I95.9 As noted, we were called to see this patient regarding concerns of hypotensio n. Evaluation in the field was performed by my marine mammal trainer colleague, as noted above, I provided real-time direction and supervisio n for this visit. She had gone to urgent care earlier in the day for symptoms of COPD and was given Augmentin. She had an episode of low blood pressure for which we were dispatched . On the marine mammal trainer examinatio n, she had a normal physical [...] Recorded Advance Directives Directive None Recorded Payers Insurance Date Sequence Insurance Name Policy Number Policy Stanford Covered Member ID Stanford Member ID Guarantor Name 07/02/2024 1 [facility] - DOS ON OR AFTER 2023 - DUAL ELIGIBLE - JAIL OPTIONS AND ONE CARE (MEDICARE REPLACEMENT/ADV ANTAGE - HMO) Rentia Haddad [id number] Renita Haddad Notes Date Note Type Note Provider Name and Address Organization Details Recorded Time 10/26/2023 text/html [facility] Nurse Triage Notes (Demian Hernandez): Chief Complaints: URI Allergies: Unknown Comments: Member reports feeling unwell x1 day - Congestion with body aches - Denies cough/fever - Home COVID test was positive - Hedy SYLVESTER ................... ................... ................... ................... ................... ................... ................... ........ Safety Physician Note From Sunil Schaefer: Pt reports runny [...] ........ Disposition: Fulfilled Chandrika Harvey MD [address] [facility],[address], [place], [phone], [employer] [facility] 10/26/2023 17:51:42 11/02/2023 text/html ROS as noted in the [facility] Nurse Triage Notes (Demian Hernandez): Reason For Request: Pt states last friday mbr tested for COVID-19 10/26/24. Mbr states retesting yesterday at home with NEGATIVE result but was still experiencing tiredness + fatigue Took albuterol treatment today and still experiencing cough, wheezing, weakness, and chest as if someone is sitting on it>elevated heart rate. Chief Complaints: Cough, Weakness/Lethargy, URI Allergies: Unknown Comments: Emergency Generator Mechanic verified the pt. s address and phone number - Education [...] ................... ................... ................... ................... ................... ................... ........ Safety Physician Note From Sunil Schaefer: Pt tested positive for covid last Friday and is still experiencing sx despite retesting negative. Sx include dry cough, chest tightness, weakness and mild SOB. Pt is alert, NAD. VSS. Afebrile. Non focal neuro exam. Normal gait. Lungs CTA. Benign ABD exam. No LE edema. Rapid covid and flu negative. ECG uploaded. [facility] contacted and pt treated with doxycycline 100 mg and prednisone 40 mg. Pt instructed to seek emergent medical care for new or worsening sx, which are reviewed with her. ................... ................... ................... ................... ................... ................... ................... ........ Disposition: Patt AMATO MD [address] [place] [address],[address], [place], [phone], [employer] [facility] [facility] 11/02/2023 17:21:37 12/12/2023 text/html HPI: PMH: Left bundle branch block, Vertebral artery dissection. Call to Renita Brandon, reports having body aches x 1 weeks. Per pt no JOSE GUADALUPE sx, fever or urinary sx. Per pt pain is from the waist down. Pt has been using Motrin PRN for pain. Pt states has difficulty with walking. Pt advised of disposition, agrees to [facility] for exam since no appt in office and Holiday on Friday. ................... ................... ................... ................... ................... ................... ................... ........ [facility] Nurse Triage Notes (Anum Stone): Comments: HPI reviewed. No further information needed to process visit. ................... ................... ................... ................... ................... ................... ................... ........ Safety Physician Note From Katt Alexis: Sent to a [...] but [facility]-evaluation/possi ble Toradol injection. Pt advised to call 911 if condition persists/worsens. Red flags discussed. Pt has no further questions. ................... ................... ................... ................... ................... ................... ................... ........ Disposition: Fulfilled Chandrika Harvey MD [address] [place] [address],[address], [place], [phone], [facility] 12/12/2023 21:18:21 07/02/2024 text/html CRC Nurse Triage [...] ................... ................... ................... ................... ................... ................... ........ Safety Physician Note From Rojas Fisher: Pt co hypertension asymptomatic, pt sts [facility] came earlier and evaluated BP pt was 96/68 ..pt was seen by urgent care earlier today. Pt sts she feels ok and has no symptoms. Her pcpc put her on augmentin today. Pt denies fever sob cough , NVD, cp, dizziness. Baseline vitals assessed, WNL, lungs clear afebrile. [facility] contacted and advised pt to monitor symptoms and drink plenty of fluids. Pt advised not to take water pill however took anyway. Pt education on signs indicating the ER. Pt advised to follow up with pcp. ................... ................... ................... ................... ................... ................... ................... ........ Disposition: Fulfilled Jorge Luis Gates MD [address] [facility],[address], [place], [address], PETER ANNE 07/02/2024 21:57:09 OBGyn Episode No OBEpisode recorded.
--- OUTSIDE RECORDS SUMMARY | 2025-08-25 13:41 | XMS_ITS | Encounter Summary ---
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 (CMS/HCC) (HCC) Status post cerebrovascular accident Hilda Butt MD [address] [place] [address] Phone: tel: fax: [facility] Physical Therapy [address] [place] [address] Phone: tel: fax: Referral ID Status Reason Start Date Expiration Date V isits Requested Visits Authorized [id number] Closed Specialty Services Required 05/19/2025 05/19/2026 1 1 * Consultation (Routine) - Closed Specialty Diagnoses / Procedures Referred By Winter roa Referred To Contact Physical Therapy Diagnoses 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 [address] Phone: tel: fax: Referral ID Status Reason Start Date Expiration Date V isits Requested Visits Authorized [id number] Closed Specialty Services Required 05/19/2025 05/19/2026 1 1 Encounter Details Date Type Department Care Team (Late st Contact Info) Description 05/13/[address] [facility] [address] [place] [address] Hilda Butt MD [address] [place] [address] Spastic hemiplegia of left nondominant side as [...] documented as of this encounter Care Teams Delivery Person Relationship Specialty Start Date End Date Hilda Butt MD [address] [place] [address] PCP - General Family Medicine 06/20/22 Stareashelly 04/08/25 documented as of this encounter
--- OUTSIDE RECORDS SUMMARY | 2025-08-25 13:41 | XMS_ITS | Encounter Summary ---
Author Organization [employer] Address [address] [facility] [address] [place] [address] Care Team Providers Care Client Support Professional Name Role Phone Hilda Butt MD Primary Care Provider [phone] Reason for Visit * Reason Comments Med Refill Encounter Details Date Type Department Care Team ([facility] st Contact Info) Description 11/22/2024 Refill [facility] [address] [place], [place] [phone] Hilda Butt MD [address] [place], [place] [phone] Social History Tobacco Use Types Packs/Day Years [...] documented as of this encounter Care Teams Client Support Professional Relationship Specialty Start Date End Date Hilda Butt MD [address] [place] [address] PCP - General Family Medicine 06/20/22 Stareashelly 04/08/25 documented as of this encounter
--- OUTSIDE RECORDS SUMMARY | 2025-08-25 13:41 | XMS_ITS | Encounter Summary ---
Author Organization [employer] Address [address] [facility] [address] [place] [address] Care Team Providers Care Customer Service Dispatcher Name Role Phone Hilda Butt MD Primary Care Provider [phone] Reason for Visit * Reason Comments Med Refill Encounter Details Date Type Department Care Team ([facility] st Contact Info) Description 04/15/2025 Refill [facility] [address] [place], [place] [phone] Hilda Butt MD [address] [place], [place] [phone] Recurrent acute serous otitis media of right [...] documented as of this encounter Care Teams Customer Service Dispatcher Relationship Specialty Start Date End Date Hilda Butt MD [address] [place] [address] PCP - General Family Medicine 06/20/22 Aveashelly 04/08/25 documented as of this encounter
--- OUTSIDE RECORDS SUMMARY | 2025-08-25 13:41 | XMS_ITS | Data Portability ---
Author Organization [facility], Main Office Address [address] [place] [address] [address] [place] [address] Care Team Providers Care Gunnery/Ordnance Officer Name Role Phone LINDA GOFF - 4TH FLOOR OTHER FRANNIE ARSHAD Primary Care Provider [phone] Assessment No assessment recorded. Plan of Treatment Reminders Order Date Submit Date Provider Last Modified By Organization Details Last Modified Time Details Appointments None recorded. Lab None recorded. Referral None recorded. Procedures None recorded. Surgeries None recorded. Imaging None recorded. Medication Orders atorvastati n 80 mg tablet 2024 025 [facility] #[id number], [address] [place], [place], [id number], 5 11:45:19 metoprolol tartrate 25 mg tablet 2024 025 [facility], [address] [place], [id number], 5 11:45:20 meclizine 12.5 mg tablet 2024 025 [facility], [address] [place], [id number], 5 11:45:20 Ventolin HFA 90 mcg/actuati on aerosol inhaler 2024 025 [facility], [address] [place], [id number], 5 11:45:12 fluticasone propionate 50 mcg/actuati on nasal spray,suspe nsion 2024 025 [facility], [address] [place], [id number], 5 11:45:17 montelukast 10 mg tablet 2024 025 [facility], [address] [place], [id number], 5 11:45:14 sertraline 50 mg tablet 2024 025 [facility], [address] [place], [id number], 5 11:45:15 trazodone 100 mg tablet 2024 025 [facility]1993, [address] [place], [id number], 5 11:45:15 pantoprazol e 40 mg tablet,thomas yed release 2024 025 [facility], [address] [place] [place], [id number], 5 11:45:11 gabapentin 100 mg capsule 2024 025 [facility], [address] [place], [id number], 5 11:45:16 tizanidine 2 mg tablet 2024 025 [facility], [address] [place], [id number], 5 11:45:17 furosemide 20 mg tablet 2024 025 [facility] #10443, [address] [place], [id number], 5 11:45:15 Entresto 24 mg-26 mg tablet 2024 025 [facility] #65039, [address] [place], [id number], 5 11:45:11 spironolact one 25 mg tablet 2024 025 [facility] #20856, [address] [place], [id number], 5 11:45:18 Patient TargetsNo targets recorded. Patient InstructionsNo instructions recorded. Reason for Referral None Reported. Problems Name Problem SNOMED Code Status Onset Date Resolution Date Notes Provider Name and Address Organization Details Recorded Time Dysphagia 35500361 Active 2024 Jessica Taylor NP [address] [facility], [address], [place], [address], [facility] 5 15:19:53 Left hemiplegia 497365919 Active 2024 Jessica Taylor NP [address] [facility], [address], [place], [address], [facility] 5 15:20:52 Cerebrovascula r accident 648029256 Active 2024 Jessica Taylor NP [address] [facility], [address], [place], [address], [facility] 5 15:20:58 Carotid artery stenosis 74900499 Active 2024 Jessica Taylor NP [address] [facility], [address], [place], [address], [facility] 5 15:22:09 Congestive heart failure 36192114 Active 2024 Jessica Taylor NP [address] [facility], [address], [place], [address], [facility] 5 15:22:17 Chronic obstructive pulmonary disease 37956641 Active 2024 Jessica Taylor NP [address], [address], [place], [address], [facility] 5 15:22:23 Automatic implantable cardiac defibrillator in situ 441123537 Active 2024 Jessica Taylor NP [address], [address], [place], [address], [facility] 5 15:22:38 Bipolar disorder 58884625 Active 2024 Jessica Taylor NP [address], [address], [place], [address], [facility] 5 15:22:46 Hypoxia 139253898 Active 2024 Jessica Taylor NP [address], [place], [address], [facility] 5 15:24:15 Hypertensive disorder 18312795 Active 2024 Jessica Taylor NP [address], [address], [place], [address], [facility] 5 15:24:34 Hyperlipidemia 72029639 Active 2024 Jessica Taylor NP [address], [address], [place], [address], [facility] 5 15:24:44 Anemia 586477697 Active 2024 Jessica Taylor NP [address], [address], [place], [address], [facility] 5 15:40:32 Gastroesophage al reflux disease 691002901 Active 2024 Jessica Taylor NP [address], [address], [place], [address], [facility] 5 15:45:51 Problem Notes None recorded. Medical Equipment None Reported. Allergies Allergen ID Allergen Name Allergen Category Reaction Reaction Severity Criticality Documentation Date Start Date Code Code System Note Provider Name and Address Organization Details Recorded Time 64648 lisinopri l medicatio n cough Not available low 12/09/20242020 37133 RxNorm Florina Nino MD [address] [facility], [address], [place], [address], [facility] 5 20:01:39 Medications Name Sig Start Date [...] Updated DateTime 5 149.86 cm 29.5 kg/m2 62466.4 9 g 78 /min 20 /min 97 [degF] 98 % 98 % 137/92 mm[Hg] Jessica Taylor NP [address] , [address], [place], [address], [facility] 5 16:38:59 Date Recorded Body height Body weight Heart rate Respiratory rate Body temperature Oxygen saturation Oxygen saturation in Arterial blood by Pulse oximetry Systolic And Diastolic Provider Name and Address Organization Details Last Updated DateTime 5 149.86 cm 35159.4 9 g 71 /min 18 /min 97 [degF] 98 % 98 % 132/74 mm[Hg] Jessica Taylor NP [address] , [address], [place], [address], [facility] 5 09:59:49 Date Recorded Body height Body mass index (BMI) Body weight Heart rate Respiratory rate Body temperature Oxygen saturation Oxygen saturation in Arterial blood by Pulse oximetry Systolic And Diastolic Provider Name and Address Organization Details Last Updated DateTime 5 149.86 cm 29.5 kg/m2 71599.4 9 g 71 /min 18 /min 97 [degF] 98 % 98 % 132/74 mm[Hg] Jessica Taylor NP [address] , [address], [place], [address], [facility] 5 09:24:05 Date Recorded Body height Heart rate Respiratory rate Body temperature Oxygen saturation Oxygen saturation in Arterial blood by Pulse oximetry Systolic And Diastolic Provider Name and Address Organization Details Last Updated DateTime 5 149.86 cm 71 /min 18 /min 97 [degF] 98 % 98 % 132/74 mm[Hg] MARY SHARP NP [address] , [address], [place], [address], [facility] 5 11:43:22 Date Recorded Body height Body weight Heart rate Respiratory rate Body temperature Oxygen saturation Oxygen saturation in Arterial blood by Pulse oximetry Systolic And Diastolic Provider Name and Address Organization Details Last Updated DateTime 5 149.86 cm 56698.6 7 g 71 /min 18 /min 97 [degF] 98 % 98 % 132/74 mm[Hg] Jessica Taylor NP [address] [facility], [address], [place], [address], [facility] 5 09:48:35 Social History Question Answer Notes LastModified by Organizat ion Details LastModified Time Tobacco Smoking Status Former Smoker Jessica Taylor NP [address] [facility], [address], [place], [address], [facility] 12/09/2024 15:31:49 Do You Have An Advance Directive? Yes Information not available 12/09/2024 What Is Your Code Status? Full Code No Dialysis Information not available 12/09/2024 Where Do You Live? Apartment Going To Be Moving To 1st Floor [address] D/c Information not available 02/22/2025 Legal Guardian? 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 Information not available 02/22/2025 What Was [...] B, unspecified formulation 4 completed [facility] 15:28:00 Hep B, unspecified formulation 4 completed Rossi Celaya [facility] 12/09/2024 15:28:09 Hep B, unspecified formulation 4 completed Rossi Celaya [facility] 12/09/2024 15:28:17 Tdap 4 completed Rossi Celaya [facility] 12/09/2024 15:29:05 Tdap 4 completed Rossi Celaya [facility] 12/09/2024 15:29:14 Pneumococcal conjugate PCV 13 4 completed Rossi Celaya [facility] 12/09/2024 15:29:28 pneumococcal polysaccharide PPV23 1 completed Rossi Celaya [facility] 12/09/2024 15:29:45 influenza, unspecified formulation 3 completed Rossi Celaya [facility] 12/09/2024 15:30:08 influenza, unspecified formulation 4 completed [facility] 12/09/2024 15:30:14 Hep A, unspecified formulation 4 completed Rossi Celaya [facility] 12/09/2024 15:30:29 Hep A, unspecified formulation 4 completed Rossi Celaya [facility] 12/09/2024 15:30:37 SARS-COV-2 (COVID-19) vaccine, UNSPECIFIED 1 completed Rossi Celaya [facility] 12/09/2024 15:31:01 SARS-COV-2 (COVID-19) vaccine, UNSPECIFIED 2 completed Rossi Celaya [facility] 12/09/2024 15:31:08 SARS-COV-2 (COVID-19) vaccine, UNSPECIFIED 3 completed Rossi [facility] 12/09/2024 15:31:17 SARS-COV-2 (COVID-19) vaccine, UNSPECIFIED 4 completed Rossi [facility] 12/09/2024 15:31:25 [facility], unspecified [facility] 15:31:41 zoster, unspecified formulation 2 completed Rossi [facility] 12/09/2024 15:31:51 Past Encounters Encounter ID Performer Location Encounter Start Date Encounter Closed Date Diagnosis/Indication Diagnosis SNOMED-CT Code Diagnosis ICD10 Code Diagnosis IMO Codes Diagnosis Note [id number] Jessica Taylor, BRITTANEY [address] [address] 12/09/2024 15:03:43 12/10/2024 13:27:31 Carotid artery stenosis 04824255 I65.29 sp right carotid endarterec jaida, performed on 11/22/24. She suffered a right carotid dissection , hematoma, as well as a CVA, which left her with left sided hemiplegia and dysphagia now on tube feedsmonit or s/s of infectionv itals qd x 2 weeksbmp and cbc weekly x 3 weeks Cerebrovas cular accident 979486036 I63.9 sp right carotid endarterec jaida, performed on 11/22/24. She suffered a right carotid dissection , hematoma, as well as a CVA, which left her with left sided hemiplegia and dysphagia now on tube feedsPT OT eval and treatsuppo rtive careturn and position freqmonito r Left hemiplegia 06477397 8 G81.90 see above Dysphagia 45764791 R13.1 0 NPOmeds through g tubegoal:J evity [...] gtube here.kat monk to followmoni tor Hypoxia 785516444 G47.34 Pt with intubation rt hypoxia now resolvedmo nitor for sequelae Congestive heart failure 81508643 I50.9 chffurosem rashad 20 mg po qdmonitor bmp and s/s of Chronic ob structive pulmonary disease 75842681 J44.9 hx montelukas t 10 mg po qhscetiriz ine 10 mg po qd prnalbuter ol inhaler 2 inh q 6 hrs prn sobmonitor Automatic implantable cardiac defibrillator in situ 737966451 Z95.810 has cad with cath in past with LBBB and states pacemaker and defibrilla tor in hxmonitor Hypertensive disorder 38 283820 I10 amiodarone 400 mg po bid x 7days, then 200 mg po qd for 21 days, then stopentres to 24-36 po bidmetopro lol succinate 50 mg po qdspirolac tone 25 mg po qdmonitor Anemia 663867628 D64.9 hx offerrous sulfate 325 mgpo qd with vit c qdmonitor cbc and for s/s of bleeding Hyperlipidemia 87351765 E78.5 asa 81 mg qdatorvast atin 80 mg qhsentrest o 24-36 po bidmonitor Bipolar disorder 3409872 4 F31.9 hx ofsertrali ne 50 mg qdmonitor [id number] [facility] [address] 12/13/2024 08:52:27 12/14/2024 15:40:23 Unsteady when walking 31437990 R26.89 PT OT eval and treatto determine baseline Carotid ar jonas stenosis 85429744 I65.21 see HPIright carotid endarterec jaida last fered carotid dissection and CVA with resultant left hemiplegia and dysphagia requiring patient to be NPO with g-tube placedlipi tor 80 mg qdasa 81 mg qdupdate surgery with concerns Cerebrovas cular accident 835688521 I63.031 resultant left hemiplegia and dysphagiaP T OT eval and treatmonit or for improvemen t in function Left hemiplegia 96009248 8 G81.04 see above Dysphagia 58957935 I69.3 91 currently NPOg-tube dependents peech and dietary to followcont inue tube feeds Hypoxia 726373389 G47.34 Pt with intubation rt hypoxia now resolvedmo nitor for sequelae Congestive heart failure 65591308 I50.22 lasix 20 mg qdentresto 24-26 mg bidmonitor respirator y and fluid status Chronic ob structive pulmonary disease 53901640 J41.1 carrying dxcontinue out patient medsmonito r respirator y status and albuterol utilizatio n Automatic implantable cardiac defibrillator in situ 091363154 Z95.810 currently maintained onamiodaro ne taper, hx LBBBknown cad continued on asa, statin, and beta yamini Hypertensive disorder 38 617530 I10 entresto 24-36 po bidmetopro lol 50 mg po qdlasix 20 mg qdspirolac tone 25 mg po qdmonitor bp and need to titrate Anemia 617636667 D50.8 monitor cbciron studies prncontinu e supplement s Bipolar disorder 4556724 4 F31.89 carrying dx added to PMHzoloft 50 mg qdmonitor sxpsych eval prn Coronary arteriosclerosis 85732023 I25.10 lipitor 80 mg qdasa 81 mg qdmetoprol ol 50 mg qdmonitor sx [id number] Jessica Taylor NP [address] [address] 12/16/2024 10:30:08 12/17/2024 16:22:16 Carotid artery stenosis 73183548 I65.29 sp right carotid endarterec jaida, performed on 11/22/24. She suffered a right carotid dissection , hematoma, as well as a CVA, which left her with left sided hemiplegia and dysphagia on tube feedscontm onitor s/s of infection, steri strips no offvitals qd x 2 weeksfu with surgery prnbmp and cbc weekly x 3 weeks Cerebrovas cular accident 523247273 I63.9 sp right carotid endarterec jaida, performed on 11/22/24. e suffered a right carotid dissection , hematoma, as well as a CVA, which left her with left sided hemiplegia and dysphagia on tube feedsPT OT eval and treatsuppo rtive careturn and position freqassist jon with adlsmonito r Left hemiplegia 32949988 8 G81.94 see above Dysphagia 10781749 R13.1 0 NPOmeds through g tubecont g [...] to follow closelymon itor Congestive heart failure 03619304 I50.9 chffurosem rashad 20 mg po qdmonitor bmp and s/s of chf Hypertensive disorder 38 900723 I10 contamioda luanne 400 mg po bid x 7days, 200 mg po qd for 21 days, then stop for taperentre sto 24-36 po bidmetopro lol succinate 50 mg po qdspirolac tone 25 mg po qdmonitor Anemia 921609342 D64.9 hx offerrous sulfate 325 mg po qd with vit c qdmonitor cbc and for s/s of bleeding Bipolar disorder 8031163 4 F31.9 hx ofsertrali ne 50 mg qdmonitor Candidiasis of mouth 797 53961 B37.0 nystatin swish and spit x 10 daysenhanc ed teethbrush ing and oral caremouth swab with mouthwash at bedsidemon itor Chronic pain 78873786 G8 9.29 pt with pain to lower legs(pt states tyl does not work and doesn't want it)states she was on gabapentin and ibuprofen prior at home that worked welltyl prnibuprof en 400 mg gtube bidgabapen tin 100 mg tab gtube bidmonitor for relief and adjustment [id number] [facility] [address] 12/17/2024 16:03:43 12/21/2024 09:59:18 Bipolar disorder 16546883 F31.9 hx ofsertrali ne 50 mg qdmonitor Insomnia 777169987 G47.0 0 12/17 start melatonin 5 mg po qhspsych consult [id number] MARY SHARP NP [address] [address] 12/21/2024 11:17:22 12/23/2024 12:10:51 Insomnia 188259419 G47.00 Started melatonin 5 mg po qhs on 12/17 - not effective - increase to 10 mg q hsReferred to psychMonit or Bipolar disorder 2848655 4 F31.9 hx ofcontinue sertraline 50 mg qdCurrentl y with issues sleeping - melatonin added and referred to Psych[facility] or Candidiasis of mouth 797 17597 B37.0 nystatin swish and spit x 10 days addedMaint ain oral care including brushing tonguemoni tor Chronic pain 56334410 G8 9.29 pt with pain to lower [...] relief and adjustment Carotid ar jonas stenosis 07226479 I65.29 sp right carotid endarterec jaida, performed on 11/22/24. She suffered a right carotid dissection , hematoma, as well as a CVA, which left her with left sided hemiplegia and dysphagia on tube feedscontm onitor s/s of infection, steri strips no offvitals qd x 2 weeksfu with surgery prnbmp and cbc weekly x 3 weeks Cerebrovas cular accident 080869432 I63.9 sp right carotid endarterec jaida, performed [...] assessment and pain mgmt.Monit or Left hemiplegia 58407597 8 G81.94 see above Dysphagia 05131030 R13.1 0 NPOmeds through g tubecont g tube feedings - currently on jevity 1.5 @ 50 cc/h x20 h per daydietici an followingS LP eval and tx as indicatedM onitor labs, weights, s/s aspiration . Congestive heart failure 12002548 I50.9 Continue:f urosemide 20 mg po qdentresto 24-36 po bidspirola ctone 25 mg po qdmonitor bmp and s/s of chf Hypertensive disorder 38 796220 I10 contentres to 24-36 po bidmetopro lol succinate 50 mg po qdspirolac tone 25 mg po qdlasix 20 mg qdmonitor Anemia 940909146 D64.9 hx offerrous sulfate 325 mg po qd with vit c qdmonitor cbc and for s/s of bleeding Automatic implantable cardiac defibrillator in situ 242705096 Z95.810 currently maintained onamiodaro ne taper, hx LBBBknown cad continued on asa, statin, and beta yamini [id number] [facility] [address] 12/23/2024 08:44:39 12/24/2024 14:25:29 Insomnia 388647603 G47.00 contmelato haydee 10 mg q hs, recently increasedR eferred to psychMonit orconsider trazodone if no improvemen t by next week Cerebrovas cular accident 622587045 I63.9 sp right carotid endarterec jaida, performed [...] assessment and pain mgmt.Monit or Left hemiplegia 79248986 8 G81.94 see above Candidiasis of mouth 797 38374 B37.0 nystatin swish and spit x 10 days total, improvingM aintain oral care including brushing tonguemoni tor Dysphagia 99976691 R13.1 0 NPOmeds through g tubecont g tube feedings - currently on jevity 1.5 @ 50 cc/h x20 h per daydietici an followingS LP eval and tx as indicatedM onitor labs, weights, s/s aspiration . Bipolar disorder 7102695 4 F31.9 hx ofcontinue sertraline 50 mg qdmelatoni n 10 mg po qhsreferre d to Psych[facility] or Chronic pain 40205497 G8 9.29 pt denies pain this am Currently on:tyl 650 mg po tidibuprof en 400 mg gtube tidgabapen tin 100 mg tab gtube tidRefer to Dr. Flores for eval and tx.monitor for relief and adjustment Carotid ar jonas stenosis 05025034 I65.29 sp right carotid endarterec jaida, performed [...] reorder for next week Congestive heart failure 30521736 I50.9 Continue:f urosemide 20 mg po qdentresto 24-36 po bidspirola ctone 25 mg po qdmonitor bmp and s/s of chf Anemia 745254741 D64.9 hx offerrous sulfate 325 mg po qd with vit c qdmonitor cbc and for s/s of bleeding [id number] Jessica Taylor NP [address] [address] 12/29/2024 14:46:44 12/30/2024 16:28:34 Cerebrovascular accident 670690014 I63.9 sp right carotid endarterec jaida, performed [...] further assessment and pain mgmt.Monit or Insomnia 788828423 G47.0 0 contmelato haydee ineffectiv e and dc'dstarte d on trazodone 50 mg po qhs per psychRefer red to psychMonit or Left hemiplegia 25540829 8 G81.94 see above Dysphagia 68514159 R13.1 0 NPOmeds through g tubecont g tube feedings - currently on jevity 1.5 @ 50 cc/h x20 h per daydietici an followingS LP eval and tx as indicatedM onitor labs, weights, s/s aspiration . Bipolar disorder 3510159 4 F31.9 hx ofcontinue sertraline 50 mg qdmelatoni n 10 mg po qhstrazodo ne 50 mg po qhs for insomniare ferred to [facility] or Chronic pain 75223204 G8 9.29 pt denies pain todayCurre ntly on:tyl 650 mg po tidibuprof en 400 mg gtube tidgabapen tin 100 mg tab gtube tidRefer to Dr. Flores for eval and tx.monitor for relief and adjustment Carotid ar jonas stenosis 15242132 I65.29 sp right carotid endarterec jaida, performed [...] reorder for next week Congestive heart failure 92250776 I50.9 Continue:f urosemide 20 mg po qdentresto 24-36 po bidspirola ctone 25 mg po qdmonitor bmp and s/s of chf Anemia 951434579 D64.9 hx offerrous sulfate 325 mg po qd with vit c qdmonitor cbc and for s/s of bleeding Recurrent falls 33546560 2 R29.6 fall during transfer today on 12/29 without injuriesmo nitor for injuries/p ainsupport viv carebed rails in place for left sided weakness to help herself movemonito r closely with protocol [id number] Jessica Taylor NP [address] [address] 12/30/2024 13:16:29 01/04/2025 09:05:35 Insomnia 394370882 G47.00 seems to be helpingcon ttrazodone 50 mg po qhs per psychRefer red to psychMonit or Cerebrovas cular accident 457057344 I63.9 sp right carotid endarterec jaida, performed [...] assessment and pain mgmt.Monit or Left hemiplegia 38901044 8 G81.94 see above Dysphagia 06059094 R13.1 0 NPOmeds through g tubecont g tube feedings - currently on jevity 1.5 @ 50 cc/h x20 h per daydietici an followingS LP eval and tx as indicatedM onitor labs, weights, s/s aspiration . Bipolar disorder 5860492 4 F31.9 hx ofcontinue sertraline 50 mg qdtrazodon e 50 mg po qhs for insomniare ferred to [facility] or Chronic pain 32401896 G8 9.29 controlled Currently on:tyl 650 mg po tidibuprof en 400 mg gtube tidgabapen tin 100 mg tab gtube tidRefer to Dr. Flores for eval and tx.monitor for relief and adjustment Carotid ar jonas stenosis 68395231 I65.29 sp right carotid endarterec jaida, performed [...] just the baby asa Congestive heart failure 29121216 I50.9 Continue:f urosemide 20 mg po qdentresto 24-36 po bidspirola ctone 25 mg po qdmonitor bmp and s/s of chf Anemia 998586239 D64.9 stablehx offerrous sulfate 325 mg po qd with vit c qdmonitor cbc and for s/s of bleeding Candidiasis of mouth 797 55538 B37.0 12/30 restart nystatin swish and spit x 10 days total, improving start peridex mouthwash 15 ml apply to tongue throughout day with swab, provide in amMaintain oral care including brushing tonguemoni tor [id number] Jessica Taylor NP [address] [address] 01/03/2025 08:35:31 01/04/2025 11:27:30 Candidiasis of mouth 38847281 B37.0 contnystat in swish and spit x 10 days total, improvingp eridex mouthwash 15 ml apply to tongue throughout day with swab, provide in amMaintain oral care including brushing tonguemoni tor Insomnia 773739294 G47.0 0 seems to be helping3 0 increase trazodone 50 mg to 75 mg po qhs per psychRefer red to psychMonit or Carotid ar jonas stenosis 68468905 I65.29 sp right carotid endarterec jaida, performed [...] just the baby asa Cerebrovas cular accident 802658111 I63.9 sp right carotid endarterec jaida, performed [...] assessment and pain mgmt.Monit or Left hemiplegia 76299376 8 G81.94 see above Dysphagia 05322893 R13.1 0 01/01 seen by speech and started on reg diet, puree, and honey consistenc ymeds through g tubecont g tube feedings - currently on jevity 1.5 @ 50 cc/h x20 h per daydietici an followingS LP eval and tx as indicatedM onitor labs, weights, s/s aspiration . Chronic pain 80839615 G8 9.29 controlled Currently on:tyl 650 mg po tidibuprof en 400 mg gtube tid3/10 increase gabapentin from 100 mg to 200 mg tube tid3/10 add muscle rub cream tid to left kne[place] get ekg in 2 weeks with hx of cardiac disease on amiodarone apap tidRefer to Dr. Flores for eval and tx.monitor for relief and adjustment [id number] Jessica Taylor NP [address] [address] 01/05/2025 13:15:00 01/06/2025 14:55:19 Insomnia 353795592 G47.00 conttrazod one 75 mg po qhsReferre d to psychMonit or Chronic pain 33194504 G8 9.29 controlled Currently on:tyl 650 mg po tidibuprof en 400 mg gtube tidgabapen tin from 200 mg tube tidapap tidmuscle rub cream tid to left [place] get ekg in 1 weeks with hx of cardiac disease on amiodarone Refer to Dr. Flores for eval and tx.monitor for relief and adjustment Candidiasis of mouth 797 64467 B37.0 contnystat in swish and spit x 10 days total, improving, to complete on 3/16peride x mouthwash 15 ml apply to tongue throughout day with swab, provide in amMaintain oral care including brushing tonguemoni tor Carotid ar jonas stenosis 01776182 I65.29 sp right carotid endarterec jaida, performed [...] baby asa, awaiting notes Cerebrovas cular accident [id number] I63.9 sp right carotid endarterec jaida, performed on 11/22/24.Sh e suffered a right carotid dissection , hematoma, as well as a CVA, which left her with left sided hemiplegia and dysphagia on tube feedssee pain abovePT OT SLPASA 81 mg qd for acatorvast atin [address] mg qdDr. Mark for further assessment and pain mgmt.Monit or Left hemiplegia 14119672 8 G81.94 see above Dysphagia 32858150 R13.1 0 started on reg diet, puree, and honey consistenc ymeds through g tubecont g tube feedings - currently on jevity 1.5 @ 50 cc/h x20 h per day tube and rod straightener following and titrating now she is eatingSLP eval and tx as indicatedM onitor labs, weights, s/s aspiration . Bipolar disorder 6213661 4 F31.9 hx ofcontinue sertraline 50 mg qdtrazodon e 75 mg po qhs for insomniare ferred to Psychmonit or Congestive heart failure 38441844 I50.9 Continue:f urosemide 20 mg po qdentresto 24-36 po bidspirola ctone 25 mg po qdmonitor bmp and s/s of chf Anemia 238129471 D64.9 stablehx offerrous sulfate 325 mg po qd with vit c qdmonitor cbc and for s/s of bleeding Recurrent falls 22095393 2 R29.6 monitor for injuries/p ainsupport viv carebed rails in place for left sided weakness to help herself movemonito r closely with protocol [id number] Jessica Taylor NP [facility] [address] [address] 01/12/2025 08:32:32 01/17/2025 08:47:39 Dysphagia 83683930 R13.10 now with new cough ? related to eating01/12 start mucinex 600 mg po bid x 50aynj1/19 cxr for cough ro asp01/12 speech to evalcontre g diet, puree, and honey consistenc ymeds through g tubecont g tube feedings - currently on jevity 1.5 @ 42 cc/h x12 h per day tube and rod straightener which is 50% reduction, plan to dc in 1-2 weeks if doing wellfollow ing and titrating now she is eatingSLP eval and tx as indicatedM onitor labs, weights, s/s aspiration . Chronic pain 48095828 G8 9.29 controlled Currently on:tyl 650 mg po tidibuprof en 400 mg gtube tidgabapen tin from 200 mg tube tidapap tidmuscle rub cream tid to left kneewill get ekg in 1 weeks with hx of cardiac disease on amiodarone Refer to Dr. Flores for eval and tx.monitor for relief and adjustment Candidiasis of mouth 797 35164 B37.0 resolvedco mpleted nystatin swish and spit x 10 days totalperid ex mouthwash 15 ml apply to tongue throughout day with swab, provide in amMaintain oral care including brushing tonguemoni tor Carotid ar jonas stenosis 87522876 I65.29 sp right carotid endarterec jaida, performed [...] baby asa, awaiting notes Cerebrovas cular accident [id number] I63.9 sp right carotid endarterec jaida, performed on 11/22/24.Sh ashley suffered a right carotid dissection , hematoma, as well as a CVA, which left her with left sided hemiplegia and dysphagia on tube feedssee pain abovePT OT SLPASA 81 mg qd for acatorvast atin [address] mg qdDr. Flores for further assessment and pain mgmt.Monit or Left hemiplegia 71110199 8 G81.94 see above Bipolar disorder 6203422 4 F31.9 hx ofcontinue sertraline 50 mg qdtrazodon e 75 mg po qhs for insomniare ferred to Psychmonit or Congestive heart failure 59475368 I50.9 Continue:f urosemide 20 mg po qdentresto 24-36 po bidspirola ctone 25 mg po qdmonitor bmp and s/s of chf Cough 10176765 R05.9 now with new cough ? related to eating01/12 start mucinex 600 mg po bid x 34fqcs0/19 cxr for cough ro asp01/12 speech to eval for new coughcont robitussin prnmonitor [id number] Jessica Taylor NP [address] [address] 01/13/2025 09:17:58 01/17/2025 09:21:59 Cough 08565151 R05.9 now with new cough ? related to eating01/12 start mucinex 600 mg po bid x 62idgr2/19 cxr for cough ro asp3/19 speech to eval for new cough01/13 xray still pendingcon t robitussin prnmonitor Dysphagia 88297231 R13.1 0 now with new cough ? related to eating01/12 start mucinex 600 mg po bid x 01fdxp9/19 cxr for cough ro asp19 speech to evalcontre g diet, puree, and honey consistenc ymeds through g tubecont g tube feedings - currently on jevity 1.5 @ 42 cc/h x12 h per day tube and rod straightener which is 50% reduction, plan to dc in 1-2 weeks if doing wellfollow ing and titrating now she is eatingSLP eval and tx as indicatedM onitor labs, weights, s/s aspiration . Chronic pain 17066615 G8 9.29 controlled , reports still having [...] for relief and adjustment Cerebrovas cular accident [id number] I63.9 sp right carotid endarterec jaida, performed on 11/22/24.Sh ashley suffered a right carotid dissection , hematoma, as well as a CVA, which left her with left sided hemiplegia and dysphagia on tube feedssee pain abovePT OT SLPASA 81 mg qd for acatorvast atin [address] mg qdDr. Flores for further assessment and pain mgmt.Monit or Left hemiplegia 16844451 8 G81.94 see above [id number] Jessica Taylor NP [address] [address] 01/20/2025 10:37:44 01/24/2025 12:55:51 Cough 12403288 R05.9 now with new cough ? related to eatingcont mucinex 600 mg po bid for a few more daysspeech to eval for new cough and fees done on 01/19 see hpi01/13 xray still unremarkab lecont robitussin prnmonitor Dysphagia 28282209 R13.1 0 now with new cough ? 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 eval and tx as indicatedM onitor labs, weights, s/s aspiration .monitor for need to dc gtube in one to two months when eating and gaining weight consistent ly Chronic pain 41839132 G8 9.29 controlled , reports still having [...] for relief and adjustment Cerebrovas cular accident [id number] I63.9 sp right carotid endarterec jaida, performed on 11/22/24.Sh ashley suffered a right carotid dissection , hematoma, as well as a CVA, which left her with left sided hemiplegia and dysphagia on tube feedssee pain abovePT OT SLPASA 81 mg qd for acatorvast atin 80 mg qdDrJaiden Flores for further assessment and pain mgmt.Monit or Left hemiplegia 35853847 8 G81.94 see above [id number] Jessica Taylor NP [facility] [address] [address] 01/27/2025 11:29:47 01/31/2025 08:39:10 Cough 64226856 R05.9 resolved xray still unremarkab lecont robitussin prnmonitor Dysphagia 26618460 R13.1 0 contreg diet, puree, and honey [...] and gaining weight consistent ly Chronic pain 37428216 G8 9.29 controlled Currently on:tyl 650 mg po tidibuprof en 400 mg gtube tidgabapen tin from 200 mg tube tidapap tidmuscle rub cream tid to left kneeRefer to Dr. Flores for eval and tx.tizanid ine and leave prn q 8 hours prn for spasticity , did not georges the sched dosesmonit or for relief and adjustment Cerebrovas cular accident [id number] I63.9 sp right carotid endarterec jaida, performed on 11/22/24.Cole ramirez suffered a right carotid dissection , hematoma, as well as a CVA, which left her with left sided hemiplegia and dysphagia on tube feedssee pain abovePT OT SLPASA 81 mg qd for acatorvast atin [address] qdDr[address] Flores for further assessment and pain mgmt.Monit or Left hemiplegia 88778131 8 G81.94 see above [id number] Jessica Taylor NP [facility] [address] [place] [address] 02/04/2025 11:17:37 02/07/2025 13:13:20 Dysphagia 03247548 R13.10 contreg diet, puree, and honey consistenc [...] and gaining weight consistent ly Chronic pain 68395761 G8 9.29 no painContty l 650 mg po tidibuprof en 400 mg po tidgabapen tin from 200 mg po tidapap tidmuscle rub cream tid to left kneeRefer to Dr. Flores for eval and tx.tizanid ine and leave prn q 8 hours prn for spasticity , did not georges the sched dosesmonit or for relief and adjustment Cerebrovas cular accident [id number] I63.9 sp right carotid endarterec jaida, performed on 11/22/24.Sh ashley suffered a right carotid dissection , hematoma, as well as a CVA, which left her with left sided hemiplegia and dysphagia on tube feedssee pain abovePT OT SLPASA 81 mg qd for acatorvast atin [address] qdDr. Flores for further assessment and pain mgmt.Monit or Left hemiplegia 44104988 8 G81.94 see above [id number] Jessica Taylor NP [facility] [address] [place] [address] 02/09/2025 09:59:15 02/14/2025 09:40:51 Chronic pain 77390754 G89.29 no painContty l 650 mg po tidibuprof en 400 mg po tidgabapen tin from 200 mg po tidapap tidmuscle rub cream tid to left kneeRefer to Dr. Flores for eval and tx.tizanid ine and leave prn q 8 hours prn for spasticity , did not georges the sched dosesmonit or for relief and adjustment Dysphagia 61700826 R13.1 0 contreg diet, puree, and honey consistenc yg tube feeds stopped >2 weeks ago and gaining weight, and doing wellcont g tube flush to 30cc qd for patencytak ing po meds wellSLP eval and tx as indicateds [place] [facility] [place], s/s aspiration .monitor for need to dc gtube in one to two months when eating and gaining weight consistent ly Cerebrovas cular accident [id number] I63.9 sp right carotid endarterec jaida, performed on 11/22/24.Cole ramirez suffered a right carotid dissection , hematoma, as well as a CVA, which left her with left sided hemiplegia and dysphagia on tube feedssee pain abovePT OT SLPcontASA 81 mg qd for acatorvast atin 80 mg qdDrJaiden Flores following for pain mgmt.Monit or Left hemiplegia 43335778 8 G81.94 see above Nasal congestion 1742578 0 R09.81 61889 reports nasal congestion and occ cough for 1.5 weekslast cxr 01/13 unremarkab le02/09alre surya on cetirizine 10 mg po qam and singularst artrobitus sin q 4 hrs prnmucinex dm 1 tab po bid x 7 dayscovid testmonito r [id number] MARY SHARP NP [address] [address] 02/15/2025 13:35:56 02/18/2025 12:45:27 Chronic pain 44555189 G89.29 no painContty l 650 mg po tidibuprof en 400 mg po tidgabapen tin from 200 mg po tidapap tidmuscle rub cream tid to left kneeReferr ed to Dr. Flores for eval and tx.tizanid ine q 8 hours prn for spasticity , did not georges the sched dosesmonit or for relief and adjustment Dysphagia 03432279 R13.1 0 contreg diet, puree, and honey consistenc yg tube feeds stopped >2 weeks ago and gaining weight, and doing wellcont g tube flush to 30cc qd for patencytak ing po meds wellSLP eval and tx as indicateds [place] [facility] weights, s/s aspiration .monitor for need to dc gtube in one to two months when eating and gaining weight consistent ly Cerebrovas cular accident [id number] I63.9 sp right carotid endarterec jaida, performed on 11/22/24.Sh ashley suffered a right carotid dissection , hematoma, as well as a CVA, which left her with left sided hemiplegia and dysphagia on tube feedssee pain abovePT OT SLPcontASA 81 mg qd for acatorvast atin [address]dDr[address] Ziebach following for pain mgmt.Monit or Left hemiplegia 54207666 8 G81.94 see above Injury of nail 121225877 S99.822A 47623052 Partially avulsed left 4th toenail, clean, no bleeding, minor pink inflammati on of toe. Toe nail very was long, able to be easily trimmed shorter with curved edges to reduce chance of snagging on clothing and socks. Covered with band aid as well to reduce trauma to nailbed - change qd, monitor for s/s infection. Refer to podiatry for possible nail removal. [id number] Florina Nino MD [address] [address] 02/22/2025 19:59:58 05/19/2025 10:57:35 Injury of nail 281678293 S99.822A 49162390 Partially avulsed left 4th toenail, clean, no [...] podiatry for possible nail removal. Chronic pain 32116146 G8 9.29 As above. Dysphagia 82107619 R13.1 9 582472 Improving. 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 Carotid ar jonas stenosis 94772041 I65.29 As aboveF/U with Dr De Anda as planned. Bipolar disorder 0126900 4 F31.89 9567963 Mood stable.Con tinue sertraline 50 mg qd and trazodone 75 mg qhs.Monito r mood.Consu lt psych prn Anemia 142536850 D64.9 StableCont inue ferrous sulfate 325 mg qd with vit c 250 mg qd for absorption .Monitor labs Chronic ob structive pulmonary disease 82861973 J41.1 No current sxs.Contin ue montelukas t 10 mg qd, cetirizine 10 mg qd and albuterol MDI 1 puff q 6 hrs prn.Monito r resp status Coronary arteriosclerosis 37437543 I25.10 No recent sxs.Contin ue meds as above.Lorna tor sx Automatic implantable cardiac defibrillator in situ 723873519 Z95[address]Lorna torF/U with cardio as planned. Hypertensive disorder 38 703725 I10 Only one BP charted in past month, with sl elevated DBP.Contin ue meds as above and request weekly BPs. 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 Continue ASA 81 mg qd and atorvastat in 80 mg qd.For pain and spasms continue ibuprofen 400 mg TID, APAP 1000 mg TID, gabapentin 200 mg TID, and tizanidine [address] Flores, PM&R, following for pain mgmt.Monit or Chronic co mbined systolic and diastolic heart failure 5081478688 71568 I50.42 242700 Echo from 2023 showed EF of 30-35% with impaired relaxation .Appears euvolemic. Continue furosemide 20 mg qd, entresto 24/36 mg BID, metoprolol 50 mg qd, and spironolac tone 25 mg qd.Monitor resp. status, fluid status, wts and labs. [id number] MARY SHARP NP [facility] [address] 03/01/2025 09:12:04 03/03/2025 13:13:07 Cerebrovascular accident [id number] I63.9 S/P right carotid endarterec jaida, performed on 11/22/24.Sh ashley suffered a right carotid dissection , hematoma, as well as a CVA, which left her with left sided hemiplegia and dysphagia on tube feeds.Cont inue PT OT SLPNow on regular diet with thins, georges. well. Taking pills wholeConti nue:ASA 81 mg qdatorvast atin [address] qdDr[address] Ziebach following for pain mgmt. Dysphagia 29777044 R13.1 0 Working with PLATING AND POINT ASSEMBLY SUPERVISOR, making gains.Diet advanced to regular with thins, georges. well so far.Taking meds whole.Lorna tor weightsFlu sh G Tube to maintain patency, can remove in the near future if weights stable and meeting nutritiona l needs and no s/s aspiration . Left hemiplegia 55433187 8 G81.94 see aboveWorki ng with PT OTPMR also involved to help with pain mgmt.Radha nue:Ibupro fen 400 mg tidAPAP 1 gm tidGabapen tin 200 mg tidTizanid ine 2 mg tid prn Congestive heart failure 16252873 I50.9 Continue:f urosemide 20 mg po qdentresto 24-36 po bidspirola ctone 25 mg po qdmonitor bmp and s/s of chf Chronic pain 01176199 G8 9.29 Comfortabl e at presentCon tinue APAP, ibuprofen, gabapentin , tizanidine PMR involved with POC Injury of nail 675599471 S99.822A 56493145 Partially avulsed left 4th toenail 2 wks ago, now healing. Unsure if seen by Podiatry, but nail still intact. Nailbed dark, no s/s infection or pain. Continue to monitor. Carotid ar jonas stenosis 21255404 I65.29 sp right carotid endarterec jaida, performed on 11/22/24 complicate d by right carotid dissection , hematoma, and CVA with residual L sided weakness and dysphagia. Continue ASA and statin.fu with surgery prn - had an appt with Dr De Anda on 01/04 Bipolar disorder 9864391 4 F31.9 hx ofcontinue sertraline 50 mg qdtrazodon e 75 mg po qhs for insomniare ferred to Psych[facility]it or Insomnia 319777190 G47.0 0 conttrazod one 75 mg po qhsReferre d to psychMonit or Anemia 596205552 D64.9 stablehx offerrous sulfate 325 mg po qd with vit c qdmonitor cbc and for s/s of bleeding Chronic ob structive pulmonary disease 57113945 J41.1 carrying dxcontinue out patient medsmonito r respirator y status and albuterol utilizatio n Coronary arteriosclerosis 99235334 I25.10 Continue:l ipitor 80 mg qdasa 81 mg qdmetoprol ol 50 mg qdentresto 24-36 po bidspirola ctone 25 mg po qdmonitor sx Automatic implantable cardiac defibrillator in situ 453687185 Z95.810 H/O LBBBComple jesus amiodarone taper.Cont inues on metoprolol 50 mg qd Hypertensive disorder 38 145893 I10 Continue:e ntresto 24-36 po bidmetopro lol 50 mg po qdlasix 20 mg qdspirolac tone 25 mg po qdmonitor bp and need to titrate Chronic cough 79407080 R 05.3 25087 Dry, worst in am, x 1 month.Has had before, uses Vicks at home, OK to use hereUnclea r etiology, possibly allergies, COPD, GERD, ACEI induced.Ivana ngs clear, VSS Plan -Monitor, ok to use Vicks prnAdd flonase qd x 30 daysEnc. use of prn ventolin, can consider scheduling Continue to monitorCan consider increasing PPICan consider stopping Entresto if not responsive to other measures. [id number] Jessica Taylor, [facility] [address] 03/02/2025 09:36:31 03/03/2025 13:23:58 Chronic cough 32642363 R05.3 67807 Dry, reports ongoing for a month with hx of allergiesV icks at home, OK to use here, with minimal help todayagree with other APARTMENT ASSISTANT MANAGER that unnclear etiology, possibly allergies, COPD, GERD, [...] responsive to other measures. 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 well.Takin g pills wholeConti nue:ASA 81 mg qdatorvast atin 80 mg qdDr. Ziebach following for pain mgmt. Dysphagia 14421187 R13.1 0 Working with PLATING AND POINT ASSEMBLY SUPERVISOR, making gains.Diet regular with georges bonilla. well so far.Taking meds whole.Lorna tor weightsFlu G Tube to maintain patency, can remove in the near future if weights stable and meeting nutritiona l needs and no s/s aspiration .pt would like g tube out when advised. consider surgeon appt in march/april if contains with weight gain/and no aspiration Left hemiplegia 65185417 8 G81.94 see aboveFarzanehi nury with PT OTPMR also involved to help with pain mgmt.Cont: Ibuprofen 400 mg tidAPAP 1 gm tidGabapen tin 200 mg tidTizanid ine 2 mg tid prn Congestive heart failure 53423364 I50.9 stableCont inue:furos emide 20 mg po qdentresto 24-36 po bidspirola ctone 25 mg po qdmonitor bmp and s/s of chf Chronic pain 39012298 G8 9.29 Comfortabl e at presentCon tAPAP, ibuprofen, gabapentin , tizanidine PMR involved with POC [id number] Jessica [facility] NP [facility] [place] [address] 03/04/2025 08:25:35 03/08/2025 14:08:28 Chronic cough 00130623 R05.3 58817 Dry, reports ongoing for a month with [...] responsive to other measures. 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 well.Takin g pills wholeConti nue:ASA 81 mg qdatorvast atin 80 mg qdDr. Mark following for pain mgmt. Dysphagia 12900767 R13.1 0 Working with PLATING AND POINT ASSEMBLY SUPERVISOR, making gains.Diet regular with thins georges. well so far.Taking meds whole.Lorna tor weightsFlu G Tube to maintain patency, can remove in the near future if weights stable and meeting nutritiona l needs and no s/s aspiration .pt would like g tube out when advised. consider surgeon appt in march/april if contains with weight gain/and no aspiration Left hemiplegia 79210112 8 G81.94 see aboveJessie arrington with PT [...] bench seatscript s provided Congestive heart failure 83108967 I50.9 stableCont inue:furos emide 20 mg po qdentresto 24-36 po bidspirola ctone 25 mg po qdmonitor bmp and s/s of chf Chronic pain 03256826 G8 9.29 Comfortabl e at presentCon tAPAP, ibuprofen, gabapentin , tizanidine PMR involved with POC [id number] Jessica Taylor NP [facility] [address] [place] [address] 03/07/2025 14:41:35 03/08/2025 14:33:37 Left hemiplegia 903658805 G81.94 see aboveFarzanehi nury with PT OTPMR [...] commode, tub bench seat Cerebrovas cular accident [id number] I63.9 S/P right carotid endarterec jaida, performed on 11/22/24.Sh ashley suffered a right carotid dissection , hematoma, as well as a CVA, which left her with left sided hemiplegia and dysphagia on tube feeds.Cont inue PT OT 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 well.Takin g pills wholeCont: ASA 81 mg qdatorvast atin 80 mg qdDr. Mark following for pain mgmt. Chronic cough 49497796 R 05.3 06557 resolvingD ry, reports ongoing for a month [...] if not responsive to other measures. 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 well so far.Taking meds whole.Lorna tor weightsFlu G Tube to maintain patency, can remove in the near future if weights stable and meeting nutritiona l needs and no s/s aspiration .pt would like g tube out when advised. consider surgeon appt in march/april if contains with weight gain/and no aspiration Congestive heart failure 72424844 I50.9 stableCont inue:furos emide 20 mg po qdentresto 24-36 po bidspirola ctone 25 mg po qdmonitor bmp and s/s of chf Chronic pain 72874331 G8 9.29 Comfortabl e at presentCon tAPAP, ibuprofen, gabapentin , tizanidine PMR involved with POC Diarrhea 47576887 R19.7 26800845 Pt reports eating non refrigerat ed sandwich with sp diarrheash e reports diarrhea resolved and eating and drinking regularly todaymonit or [id number] Jessica Taylor NP [address] [address] 03/16/2025 09:58:48 03/17/2025 14:05:14 Cerebrovascular accident [id number] I63.9 S/P right carotid endarterec jaida, performed on 11/22/24.Sh e suffered a right carotid dissection , hematoma, as well as a CVA, which left her with left sided hemiplegia and dysphagia on tube feeds.Cont inue PT OT 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 well.Takin g pills wholeCont: ASA 81 mg qdatorvast atin 80 mg qdDr. Mark following for pain mgmt. Left hemiplegia 63074338 8 G81.94 see aboveWorki ng with PT OTPMR also involved to help with pain mgmt.Cont: Ibuprofen 400 mg tidAPAP 1 gm tidGabapen tin 200 mg tidTizanid ine 2 mg tid prntherapy consulted with plan to move to handicap aptscripts written for and given to social media analyst last weekWheelc hair with arm bolster left side with strap for positionin g, swing away arm rest and leg rest and gel cushion, full electric bed, mattress, versa frame 3:1 commode, tub bench seat Chronic cough 41306873 R 05.3 76070 resolving with belowDry, reports ongoing for a month with hx of allergiesD DX likely allergies, COPD, GERD, ACEI induced.Ivana ngs clear, VSScontrob itussin 10 ml q 4hours prn cough unitl 6/6Vicks prn okay to use per requestflo nase qd x 30 days added nc. 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 well so far.Taking meds whole.Lorna tor weightsFlu sh G Tube to maintain patency, can remove in the near future if weights stable/imp roving and meeting nutritiona l needs and no s/s aspiration for 2-3 months.pt would like g tube out when advised.co nsider surgeon appt in if contains with weight gain/and no aspiration Chronic pain 79345079 G8 9.29 Comfortabl e at presentCon tAPAP, ibuprofen, gabapentin , tizanidine PMR involved with POC Congestive heart failure 98141086 I50.9 stableCont inue:furos emide 20 mg po qdentresto 24-36 po bidspirola ctone 25 mg po qdmonitor bmp and s/s of chf, will reorder for 03/23 cmp, bnp, cbc Injury of nail 355178666 S99.822A 09061624 Partially avulsed left 4th toenail now healing. Unsure if seen by Podiatry, but nail still intact. Nailbed dark, no s/s infection or pain. Continue to monitor. Carotid ar jonas stenosis 53661730 I65.29 sp right carotid endarterec jaida, performed on 11/22/24 complicate d by right carotid dissection , hematoma, and CVA with residual L sided weakness and dysphagia. Continue ASA and statin.fu with surgery prn - had an appt with Dr De Anda on 01/04 Bipolar disorder 5429976 4 F31.9 hx ofcontinue sertraline 50 mg qdtrazodon e 100 mg po qhs for insomniare ferred to [facility] or Insomnia 830925660 G47.0 0 conttrazod one 100 mg po qhsReferre d to psychMonit or Anemia 452330441 D64.9 stablehx offerrous sulfate 325 mg po qd with vit c qdmonitor cbc and for s/s of bleeding Chronic ob structive pulmonary disease 91335201 J41.1 carrying dxcontinue out patient medsmonito r respirator y status and albuterol utilizatio n Coronary arteriosclerosis 75837321 I25.10 Continue:l ipitor 80 mg qdasa 81 mg qdmetoprol ol 50 mg qdentresto 24-36 po bidspirola ctone 25 mg po qdmonitor sx Automatic implantable cardiac defibrillator in situ 539999038 Z95.810 H/O LBBBComple jesus amiodarone taper.cont metoprolol 50 mg qd Hypertensive disorder 38 924465 I10 Continue:e ntresto 24-36 po bidmetopro lol 50 mg po qdlasix 20 mg qdspirolac tone 25 mg po qdmonitor bp and need to titrate Recurrent falls 56707317 2 R29.6 monitor for injuries/p ainsuptami deane carebed rails in place for left sided weakness to help herself movemonito r closely with protocol [id number] Jessica Taylor NP [address] [address] 03/24/2025 09:23:03 03/30/2025 08:40:23 Cerebrovascular accident 537733431 I63.9 S/P right carotid endarterec jaida, performed on 11/22/24.Sh ashley suffered a right carotid dissection , hematoma, as well as a CVA, which left her with left sided hemiplegia and dysphagia on tube feeds.Cont inue PT OT 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 well. consider removal of g tube in april if weight remains stable. She has not gained any weight on supplement s and po foods, just maintained .Taking pills wholeCont: ASA 81 mg qdatorvast atin 80 mg qdDr. Mark following for pain mgmt. Left hemiplegia 90552475 8 G81.94 stable on this regimenPMR also involved to help with pain mgmt.Cont: Ibuprofen 400 mg tidAPAP 1 gm tidGabapen tin 200 mg tidTizanid ine 2 mg tid prnplan:th silvano consulted with plan to move to handicap aptscripts written for already and given to social media analyst last weekWheelc hair with arm bolster left side with strap for positionin g, swing away arm rest and leg rest and gel cushion, full electric bed, mattress, versa frame 3:1 commode, tub bench seat Chronic cough 04218480 R 05.3 29318 remains with slight dry cough at baselineDr y, reports ongoing for a month with hx of allergiesD DX likely allergies, COPD, GERD, ACEI induced.Ivana ngs clear, VSScontrob itussin 10 ml q 4hours prn cough unitl 6/6Vicks prn okay to use per requestflo nase qd x 30 days added 66Enc. use of prn ventolin, can consider scheduling Continue to monitor Dysphagia 74520694 R13.1 0 Working with PLATING AND POINT ASSEMBLY SUPERVISOR, making gains.Diet regular with thins, georges. well so far.Taking meds whole.Lorna tor weightsFlu sh G Tube to maintain patency, can remove in the near future if weights stable/imp roving and meeting nutritiona l needs and no s/s aspiration for 2-3 months.pt would like g tube out when advised.co nsider surgeon appt in april if contains with weight gain/and no aspiration Chronic pain 47858217 G8 9.29 Comfortabl e at presentCon tAPAP, ibuprofen, gabapentin , tizanidine PMR involved with POC Congestive heart failure 39433065 I50.9 stable bnp as aboveConti nue:furose mide 20 mg po qdentresto 24-36 po bidspirola ctone 25 mg po qdmonitor bmp and s/s of chf, will reorder for 03/23 cmp, bnp, cbc Carotid ar jonas stenosis 68431182 I65.29 sp right carotid endarterec jaida, performed on 11/22/24 complicate d by right carotid dissection , hematoma, and CVA with residual L sided weakness and dysphagia. Continue ASA and statin.fu with surgery prn - had an appt with Dr De Anda on 01/04 Bipolar disorder 7860603 4 F31.9 hx ofcontinue sertraline 50 mg qdtrazodon e 100 mg po qhs for insomniare ferred to [facility] or Insomnia 826032036 G47.0 0 conttrazod one 100 mg po qhsReferre d to psychMonit or Anemia 450341155 D64.9 stablehx offerrous sulfate 325 mg po qd with vit c qdmonitor cbc and for s/s of bleeding Automatic implantable cardiac defibrillator in situ 099378317 Z95.810 H/O LBBBComple jesus amiodarone taper.cont metoprolol 50 mg qd Hypertensive disorder 38 588871 I10 Continue:e ntresto 24-36 po bidmetopro lol 50 mg po qdlasix 20 mg qdspirolac tone 25 mg po qdmonitor bp and need to titrate Recurrent falls 57038621 2 R29.6 no recent fallsmonit or for injuries/p ainsupport viv carebed rails in place for left sided weakness to help herself movemonito r closely with protocol Dizziness 853431042 R42 97810 see hpilabs stable, appears euvolemic start meclizine 12.5 mg po q 8hrs03/24 start orthostast atic bp x 1adjust meds prnmonitor [id number] MARY SHARP NP [facility] [address] [place] [address] 03/29/2025 11:41:56 04/05/2025 10:09:45 Bipolar disorder 26209226 F31.9 Recent issues with insomniaSe en by Psych 03/28, recommendi ng increasing trazodone to 150 mg q hs which pt. is agreeable to trying to see if it will help with sleep.Cont inue sertraline 50 mg qdMonitor and update Psych with concerns. [id number] Jessica Taylor NP [facility] [address] [place] [address] 04/06/2025 08:16:31 04/12/2025 10:51:42 Bipolar disorder 12232430 F31.9 Recent issues with insomniaCo ntinuesert raline 50 mg qdtrazodon e 100 mg po qhsMonitor and update Psych with concerns outpt Dizziness 124646884 R42 36268 hx oflabs stable, appears euvolemicc ontmeclizi ne 12.5 mg po q 8hrsadjust meds prnmonitor outpt with pcp Cerebrovas cular accident 063979339 I63.9 S/P right carotid endarterec jaida, performed on 11/22/24.Sh ashley suffered a right carotid dissection , hematoma, as well as a CVA, which left her with left sided hemiplegia and dysphagia on tube feeds.Cont inue PT OT PLATING AND POINT ASSEMBLY SUPERVISOR(off tube feeds )regular diet for about 1.5 months with chad georges. well. consider removal of g tube in april if weight remains stable. She has not gained any weight on supplement s and po foods, just maintained .Taking pills wholeCont: ASA 81 mg qdatorvast atin [address] qdDr[address] Mark following for pain mgmt. Left hemiplegia 85844252 8 G81.94 stable on this regimenPMR also involved to help with pain mgmt.Cont: Ibuprofen 400 mg tidAPAP 1 gm tidGabapen tin 200 mg tidTizanid ine 2 mg tid prnplan: silvaon consulted with plan to move to handicap aptscripts written for already and given to social media analyst last weekWheelc hair with arm bolster left side with strap for positionin g, swing away arm rest and leg rest and gel cushion, full electric bed, mattress, versa frame 3:1 commode, tub bench seatfu with pcp outpt Chronic cough 49413556 R 05.3 46851 remains with slight dry cough at baselineDr [...] monitor and fu outpt with pcp Dysphagia 20055329 R13.1 0 Working with PLATING AND POINT ASSEMBLY SUPERVISOR, making gains.Diet regular with chad georges. well [...] aspiration for g tube removal Chronic pain 64482836 G8 9.29 Comfortabl e at presentCon tAPAP, ibuprofen, gabapentin , tizanidine PMR involved with POC Congestive heart failure 66248685 I50.9 stable bnp as aboveConti nue:furose mide 20 mg po qdentresto 24-36 po bidspirola ctone 25 mg po qdfu outpt wtih pcp Carotid ar jonas stenosis 57436245 I65.29 sp right carotid endarterec jaida, performed on 11/22/24 complicate d by right carotid dissection , hematoma, and CVA with residual L sided weakness and dysphagia. Continue ASA and statin.fu with surgery/va scular prn and outpt with pcp Insomnia 319464776 G47.0 0 conttrazod one 100 mg po qhsReferre d to psych here, fu outpt prnMonitor outpt with pcp Anemia 672386041 D64.9 stablehx offerrous sulfate 325 mg po qd with vit c qdmonitor with pcp outpt Automatic implantable cardiac defibrillator in situ 103491540 Z95.810 H/O LBBBComple jesus amiodarone taper.cont metoprolol 50 mg qdfu with pcp outpt Hypertensive disorder 38 294194 I10 Continue:e ntresto 24-36 po bidmetopro lol 50 mg po qdlasix 20 mg qdspirolac tone 25 mg po qdmonitor bp and need to titrate outpt with pcp Recurrent falls 21427949 2 R29.6 no recent fallsmonit or for injuries/p ainsupport viv carebed rails in place for left sided weakness to help herself movemonito r closely with protocol and vna Chronic ob structive pulmonary disease 85594451 J41.1 carrying dxcontinue out patient medsmonito r respirator y status and albuterol utilizatio n outpt with pcp Coronary arteriosclerosis 07222537 I25.10 Continue:l ipitor 80 mg qdasa 81 mg qdmetoprol ol 50 mg qdentresto 24-36 po bidspirola ctone 25 mg po qdmonitor sx outpt with pcp Seasonal allergy 2446582 04 J30.2 19496 singulair 10 mg qd \flonase 1 spray each nare qdfu with pcp Gastroesop hageal reflux disease without esophagitis 529553959 K21.9 681038 hx ofpantopra zole 40 mg po qdmonitor outpt with pcp Health Concerns Section Related Observation LastModified by Organization Detai ls LastModified Time None Recorded Concern Status LastModified by Organization Details LastModified Time None Recorded Advance Directives Directive Y: Payers Insurance Date Sequence Insurance Name Policy Number Policy Stanford Covered Member ID Stanford Member ID Guarantor Name 05/20/2025 1 [facility] - DOS ON OR AFTER 2023 - MEDICARE ADVANTAGE [place] (MEDICARE REPLACEMENT/ADV ANTAGE - PPO) Renita Brandon [id number] Renita Brandon Notes Date Note Type Note [...] here on 12/08/24 [address] hospitalization at [facility] for a right carotid dissection after a [...] both left extremities. She continues working with PLATING AND POINT ASSEMBLY SUPERVISOR, making good progress, remains on regular diet with thin liquids, georges. well, maintaining weights so far. Taking pills whole Jessica Taylor, BRITTANEY [address] [facility], [address], [place], [address], [facility] [employer] 03/07/2025 17:48:15 03/16/2025 text/html Renita is seen today for a 90 routine rounding visit. Her PMH includes HTN, hx of carotid artery stenosis s/p right carotid dissection with left hemiplegia, CHF, GERD, bipolar dz, COPD, HLD, and anemia. She is a 54 yo woman admitted here on 12/08/24 after a hospitalization at [facility] for a right carotid dissection after a right carotid endarterectomy, performed on 11/22/2024. Resulting in left-sided hemiplegia and dysphagia. A PEG was placed and she was NPO for several months. Since here at [facility]: Renita was started on trazadone [...] but just maintaining. She is followed by tube and rod straightener and has supplements. She may have g [...] extremities. In general, She continues working with PLATING AND POINT ASSEMBLY SUPERVISOR, making good progress, remains on regular diet with thin liquids, georges. well, maintaining weights so far. Taking pills whole She was started on flonase and robitussin for occ cough with effect. She On exam, She is smiling and no concerns. Lungs CTA. She continues with left sided weakness. She is planning on d/c to a new 1st floor [facility] with [employer] SURGEON care on 04/01. Her mother and daughter live nearby to [facility]. She is looking forward to going home. Jessica Taylor, BRITTANEY [address] [facility], [address], [place], [address], [facility] [employer] 03/16/2025 10:22:54 03/24/2025 text/html Pt is seen [...] here on 12/08/24 [address] a hospitalization [address] [facility] for a right carotid dissection after a [...] to a new 1st floor apt with [employer]AC[employer] SURGEON care on 04/01. Scripts for DME have been provided and working on set up of her new place. Her mother and daughter live nearby to [facility]. She is looking forward to going home at that time. Jessica Taylor NP [address] [facility], [address], [place], [address], [email or web address] [facility] 03/24/2025 10:13:17 03/29/2025 text/html Renita is [...] concerns per nsg. MARY SHARP NP [address] [facility], [address], [place], [address], [email or web address] [facility] 03/29/2025 11:51:06 04/06/2025 text/html Renita is seen today for a discharge rounding visit. Her PMH includes HTN, hx of carotid artery stenosis s/p right carotid dissection with left hemiplegia, CHF, GERD, bipolar dz, COPD, HLD, and anemia. Labs last reviewed from 03/23 and stable. She is a 54 yo woman admitted here on 12/08/24 after a hospitalization at [facility] for a right carotid dissection after a right carotid endarterectomy, performed on 11/22/2024. Resulting in left-sided hemiplegia and dysphagia. A PEG was placed and she was NPO for several months. Since here at [facility] she is currently off g [...] on d/c to a new 1st floor [facility] with [employer]ACIAL SURGEON care. Scripts for DME have been provided and set up of her new place. Her mother and daughter live nearby to [facility]. She is looking forward to going home at that time. Scripts sent to [facility] per request. Spent greater than 60 minutes on discharge and corrdination etc... On exam, Renita is smiling and happy to go home later today. volunteer services coordinator is checking to make sure her equipment is at her place. No distress or complaints and remains with mild cough at times, seems to be allergy related. Jessica Taylor, BRITTANEY [address] [facility], [address], [place], [address], [facility] [employer] 04/06/2025 11:45:18 OBGyn Episode No OBEpisode recorded.
--- OUTSIDE RECORDS SUMMARY | 2025-08-25 13:41 | XMS_ITS | Encounter Summary ---
Author Organization [employer] Address [address] [facility] 7t [place] [address] Care Team Providers Care Housing Relocation Name Role Phone Hilda Butt MD Primary Care Provider [phone] Encounter Details Date Type Department Care Team ([facility] st Contact Info) Description 10/15/[address] [facility] P[facility] [address] [place], [place] [phone] Apple Stringer LPN Social History Tobacco Use [...] on filedocumented in this encounter Care Teams Housing Relocation Relationship Specialty Start Date End Date Hilda Butt MD [address] [place] [address] PCP - General Family Medicine 06/20/22 Aveanna 04/08/25 documented as of this encounter
--- OUTSIDE RECORDS SUMMARY | 2025-08-25 13:41 | XMS_ITS | Encounter Summary ---
Author Organization [employer] Address [address] [facility] 7t [place] [address] Care Team Providers Care Folder Inspector Name Role Phone Hilda Butt MD Primary Care Provider [phone] Reason for Visit * Reason Comments Med Refill Encounter Details Date Type Department Care Team ([facility] st Contact Info) Description 07/15/2025 Refill [facility] MEDICINE [address] [place], [place] [phone] Hilda Butt MD [address] [place], [place] [phone] Social History Tobacco Use Types Packs/Day Years [...] documented as of this encounter Care Teams Folder Inspector Relationship Specialty Start Date End Date Hilda Butt MD [address] [place] [address] PCP - General Family Medicine 06/20/22 Stareashelly 04/08/25 documented as of this encounter
--- OUTSIDE RECORDS SUMMARY | 2025-08-25 13:41 | XMS_ITS | Encounter Summary ---
Author Organization [employer] Address [address] [facility] 7t [place] [address] Care Team Providers Care Geospatial Analyst Name Role Phone Hilda Butt MD Primary Care Provider [phone] Encounter Details Date Type Department Care Team ([facility] st Contact Info) Description 10/31/2022 Orders Only [facility] MEDICINE [address] [place], [place] [phone] Hilda Butt MD [address] [place], [place] [phone] Blurry vision (Primary Dx) Social History Tobacco [...] disturbances documented in this encounter Care Teams Geospatial Analyst Relationship Specialty Start Date End Date Hilda Butt MD [address] [place], [place] [phone] PCP - General Family Medicine 06/20/22 Aveanna 04/08/25 documented as of this encounter
--- OUTSIDE RECORDS SUMMARY | 2025-08-25 13:41 | XMS_ITS | Encounter Summary ---
Author Organization [employer] [facility] Address [address] [place] [address] Care Team Providers Care Pattern Marker Name Role Phone Tara Paniagua RN Primary Care Provider [phone] Encounter Details Date Type Department Care Team (Late Contact Info) Description 02/08/2025 Lab Requisition [facility] - Main Lab [address] [facility] [place] [address] Benjamin Kim MD [address] [facility] [address] [place], [address] Heart failure, unspecified (CMS/HCC V24, CMS/HCC [...] Description 09/14/2025 10:00 AM EST Evaluation [facility] [address] [facility] [address] [place] [address] Viktoriya Zaman, PT documented as of this encounter Procedures Procedure Name Priority Date/Time Associated Diagnosis Comments COMPLETE BLOOD COUNT Routine 02/09/2025 7:58 AM EDT Heart failure, unspecified ([facility] V24, [facility] V28) BASIC METABOLIC PANEL Routine 02/09/2025 7:58 AM EDT Heart failure, unspecified ([facility] V24, [facility] V28) documented in this encounter Results * Basic metabolic panel (02/09/2025 7:58 AM EDT) Sodium 139 133 - 145 mmol/L LAB CHEMISTRY METHOD 02/09/2025 12:40 PM [facility] Potassium 3.8 3.5 - 5.5 [...] METHOD 02/09/2025 12:40 PM [facility] eGFR 111 >=60 mL/min/1. 73m2 LAB CHEMISTRY METHOD 02/09/2025 12:40 PM [facility] Comment:Calculation based on the Chronic Kidney Disease Epidemiology Collaboration (CKD-EPI) equation refit without adjustment for race. BUN/Creatinine Ratio 31.5 LAB CHEMISTRY METHOD 02/09/2025 12:40 PM [facility] Calcium 9.6 8.5 - 10.5 mg/dL LAB CHEMISTRY METHOD 02/09/2025 12:40 PM EDT [facility] Blood Venous blood specimen / Unknown Venipuncture / Unknown 02/09/2025 7:58 AM EDT 02/09/2025 11:12 AM EDT us Benjamin Kim MD LAB BLOOD ORDERABLES Final Resul t [facility] [address] [place] [address], * (ABNORMAL) Complete blood count (02/09/2025 7:58 AM EDT) WBC 5.9 4.8 - 10.8 K/mcL LAB HEMETOLOGY METHOD 02/09/2025 11:27 AM [facility] RBC 3.80 3.80 - 4.80 M/mcL LAB HEMETOLOGY METHOD 02/09/2025 11:27 AM [facility] Hemoglobin 10.9(L) 11.5 - 16.0 [...] LAB HEMETOLOGY METHOD 02/09/2025 11:27 AM EDT [facility] Platelets 299 130 - 400 K/mcL LAB HEMETOLOGY METHOD 02/09/2025 11:27 AM EDT [facility] MPV 9.9 7.0 - 11.0 FL LAB HEMETOLOGY METHOD 02/09/2025 11:27 AM EDT [facility] NRBC 0.0 <1.0 % LAB HEMETOLOGY METHOD 02/09/2025 11:27 AM EDT [facility] NRBC Absolute 0.00 <0.10 K/mcL LAB HEMETOLOGY METHOD 02/09/2025 11:27 AM T [facility] Blood Venous blood specimen / Unknown Venipuncture / Unknown 02/09/2025 7:58 AM EDT 02/09/2025 11:12 AM EDT us Benjamin Kim MD LAB BLOOD ORDERABLES Final Resul t [facility] [address] [place] [address], documented in this encounter Visit Diagnoses Diagnosis Heart failure, unspecified (CMS/HCC V24, CMS/HCC V28) Heart failure, unspecified documented in this encounter Care Teams Pattern Marker Relationship Specialty Start Date End Date Tara Paniagua RN [address] [place] [phone] PCP - General 07/24/22 documented as of this encounter
--- OUTSIDE RECORDS SUMMARY | 2025-08-25 13:41 | XMS_ITS | Encounter Summary ---
Author Organization [employer] Address [address] [facility] [address] [place] [address] Care Team Providers Care Theater Projectionist Name Role Phone Hilda Butt MD Primary Care Provider [phone] Reason for Visit * Reason Onset Date Comments PA 12/25/2022 Encounter Details Date Type Department Care Team ([facility] Contact Info) Description 12/25/2022 Telephone [facility] MEDICINE [address] [place], [place] [phone] Hilda Butt MD [address] [place], [place] [phone] PA Social History Tobacco Use Types Packs/Day [...] Lower back pain. Please contact pt at [phone] documented in this encounter Plan of Treatment Not on file documented as of this encounter Visit Diagnoses Not on filedocumented in this encounter Care Teams Theater Projectionist Relationship Specialty Start Date End Date Hilda Butt MD [address] [place] [address] PCP - General Family Medicine 06/20/22 Wilfrido 04/08/25 documented as of this encounter
--- OUTSIDE RECORDS SUMMARY | 2025-08-25 13:41 | XMS_ITS | Encounter Summary ---
Author Organization [employer] Address [address] [facility] [address] [place] [address] Care Team Providers Care Biochemistry Professor Name Role Phone Hilda Butt MD Primary Care Provider [phone] Encounter Details Date Type Department Care Team ([facility] Contact Info) Description 05/11/2025 Telephone 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 MEDICINE [address] [place], [place] [phone] Hilda Butt MD [address] [place], [place] [phone] Social History Tobacco Use Types Packs/Day Years [...] - 05/11/2025 4:35 PM EDT Tc from [facility] with [facility] calling to inform provider pt is being discharged from occupational therapy services. Adela stated pt is requesting outpatient referral. If any question [phone] documented in this encounter Plan of Treatment [...] documented as of this encounter Care Teams Biochemistry Professor Relationship Specialty Start Date End Date Hilda Butt MD [address] [place] [address] PCP - General Family Medicine 06/20/22 Aveashelly 04/08/25 documented as of this encounter
--- OUTSIDE RECORDS SUMMARY | 2025-08-25 13:41 | XMS_ITS | Encounter Summary ---
Author Organization [employer] Address [address] [facility] [address] [place] [address] Care Team Providers Care Human Services Supervisor Name Role Phone Hilda Butt MD Primary Care Provider [phone] Reason for Visit * Reason Onset Date Comments Medication Question 11/19/2022 Encounter Details Date Type Department Care Team ([facility] Contact Info) Description 11/19/2022 Telephone [facility] MEDICINE [address] [place], [place] [phone] Hilda Butt MD [address] [place], [place] [phone] Medication Question Social History Tobacco Use Types [...] regarding nebulizer medication Please contact Marina at [phone] documented in this encounter Plan of Treatment Not on file documented as of this encounter Visit Diagnoses Not on filedocumented in this encounter Care Teams Human Services Supervisor Relationship Specialty Start Date End Date Hilda Butt MD [address] [place] [address] PCP - General Family Medicine 06/20/22 Stareashelly 04/08/25 documented as of this encounter
--- OUTSIDE RECORDS SUMMARY | 2025-08-25 13:42 | XMS_ITS | Encounter Summary ---
Author Organization [employer] Address [address] [facility] 7t [place] [address] Care Team Providers Care Application Support Technician Name Role Phone Hilda Butt MD Primary Care Provider [phone] Encounter Details Date Type Department Care Team ([facility] Contact Info) Description 08/18/2023 Abstract [facility] [address] [place], [place] [phone] Hilda Butt MD [address] [place], [place] [phone] Social History Tobacco Use Types Packs/Day Years [...] t he electric, gas, oil or water [employer] threatened to shut off services in your [...] documented as of this encounter Care Teams Application Support Technician Relationship Specialty Start Date End Date Hilda Butt MD [address] [place] [address] PCP - General Family Medicine 06/20/22 Stareashelly 04/08/25 documented as of this encounter
--- OUTSIDE RECORDS SUMMARY | 2025-08-25 13:42 | XMS_ITS | Encounter Summary ---
Author Organization [employer] Address [address] [facility] 7t [place] [address] Care Team Providers Care Metal Riveting Machine Operator Name Role Phone Hilda Butt MD Primary Care Provider Reason for Visit * Reason Onset Date Comments Med Life Line 08/06/2023 Encounter Details Date Type Department Care Team ([facility] Contact Info) Description 08/06/2023 Telephone [facility] MED[facility] 230 [place], [place] [phone] Hilda Butt MD 230 [place], [place] [phone] Med Life Line Social History Tobacco Use [...] PATIENT TODAY WILL SEND RX TO [facility]. [facility] DOES NOT ACCEPT [facility]. * Telephone Encounter - Ashley Sutton - 08/06/2023 1:10 PM EDT Tc from pt requesting status on paperwork for Med Life line machine due to her medical conditions. Task on 07/31/2023 Please contact pt at [phone] Ugandan Speaker documented in this encounter Plan of Treatment Not on file documented as of this encounter Visit Diagnoses Not on filedocumented in this encounter Additional Health Concerns Assessment Noted Time PHQ-9 Depression Total Score: 6 06/12/20 23 9:18 AM EDT documented as of this encounter Care Teams Metal Riveting Machine Operator Relationship Specialty Start Date End Date Hilda Butt MD 230 [place] [address] PCP - General Family Medicine 06/20/22 Wilfrido 04/08/25 documented as of this encounter
--- OUTSIDE RECORDS SUMMARY | 2025-08-25 13:42 | XMS_ITS | Encounter Summary ---
Author Organization [employer] Address [address] [facility] 7t [place] [address] Care Team Providers Care Independent Beauty Consultant Name Role Phone Hilda Butt MD Primary Care Provider [phone] Encounter Details Date Type Department Care Team ([facility] st Contact Info) Description 10/30/2023 Telephone [facility] MEDICINE 230 [place], [place] [phone] Janine Mccarthy, RN 230 [place], [place] [phone] Social History Tobacco Use Types Packs/Day Years [...] documented as of this encounter Care Teams Independent Beauty Consultant Relationship Specialty Start Date End Date Hilda Butt MD 230 [place] [address] PCP - General Family Medicine 06/20/22 Stareashelly 04/08/25 documented as of this encounter
--- OUTSIDE RECORDS SUMMARY | 2025-08-25 13:42 | XMS_ITS | Encounter Summary ---
Author Organization [employer] Address 75 [facility] 7t [place] [address] Care Team Providers Care Pump Installation And Servicer Name Role Phone Hilda Butt MD Primary Care Provider Encounter Details Date Type Department Care Team ([facility] st Contact Info) Description 08/19/2023 Abstract [facility] MEDICINE 230 [place], [place] [phone] Hilda Butt MD [address] [place], [place] [phone] Social History Tobacco Use Types Packs/Day Years [...] t he electric, gas, oil or water [employer] threatened to shut off services in your [...] documented as of this encounter Care Teams Pump Installation And Servicer Relationship Specialty Start Date End Date Hilda Butt MD 230 [place] [address] PCP - General Family Medicine 06/20/22 Stareashelly 04/08/25 documented as of this encounter
--- OUTSIDE RECORDS SUMMARY | 2025-08-25 13:42 | XMS_ITS | Encounter Summary ---
Author Organization [employer] Address 75 [facility] 7t [place] [address] Care Team Providers Care Oceanography Professor Name Role Phone Hilda Butt MD Primary Care Provider [phone] Reason for Visit * Reason Onset Date Comments Med Refill 10/16/2023 Encounter Details Date Type Department Care Team ([facility] Contact Info) Description 10/16/2023 Refill [facility] [address] [place], [place] [phone] Hilda Butt MD [address] [place] [address] Social History Tobacco Use Types Packs/Day Years [...] documented as of this encounter Care Teams Oceanography Professor Relationship Specialty Start Date End Date Hilda Butt MD 230 [place] [address] PCP - General Family Medicine 06/20/22 Stareashelly 04/08/25 documented as of this encounter
--- OUTSIDE RECORDS SUMMARY | 2025-08-25 13:42 | XMS_ITS | Encounter Summary ---
Author Organization [employer] Address 75 [facility] 7t [place] [address] Care Team Providers Care Collator Operator Name Role Phone Hilda Butt MD Primary Care Provider [phone] Reason for Visit * Reason Onset Date Comments Durable Medical Equipment 08/24/2025 Encounter Details Date Type Department Care Team ([facility] Contact Info) Description 08/24/2025 Telephone [facility] MEDICINE 230 [place], [place] [phone] Hilda Butt MD 230 [place], [place] [phone] Durable Medical Equipment Social History Tobacco Use [...] * Telephone Encounter - Lulu Hatfield - 08/24/2025 10:03 AM EDT Tc from pt daughter requesting a new scrip for DME - Diabetics shoes To be send - [employer] Appointment schedule at 08/30/25 documented in this encounter Plan of Treatment [...] documented as of this encounter Care Teams Collator Operator Relationship Specialty Start Date End Date Hilda Butt MD 230 [place] [address] PCP - General Family Medicine 06/20/22 Aveanna 04/08/25 documented as of this encounter
--- OUTSIDE RECORDS SUMMARY | 2025-08-25 13:42 | XMS_ITS | Encounter Summary ---
Author Organization [employer] Address 75 [facility] 7t [place] [address] Care Team Providers Care Supervisor Belt And Link Assembly Name Role Phone Hilda Butt MD Primary Care Provider [phone] Encounter Details Date Type Department Care Team ([facility] st Contact Info) Description 07/02/2024 Orders Only [facility] MEDICINE 230 [place], [place] [phone] Hilda Butt MD 230 [place], [place] [phone] Subacute cough (Primary Dx) Social History Tobacco [...] as of this encounter Care Teams Supervisor Belt And Link Assembly Relationship Specialty Start Date End Date Hilda Butt MD [address] [place] [address] PCP - General Family Medicine 06/20/22 Wilfrido 04/08/25 documented as of this encounter
--- OUTSIDE RECORDS SUMMARY | 2025-08-25 13:42 | XMS_ITS | Encounter Summary ---
Author Organization [employer] Address 75 [facility] 7t [place] [address] Care Team Providers Care Resistor Inspector Name Role Phone Hilda Butt MD Primary Care Provider [phone] Reason for Visit * Reason Comments Med Refill Encounter Details Date Type Department Care Team ([facility] st Contact Info) Description 2024 Refill [facility] MEDICINE 230 [place], [place] [phone] Hilda Butt MD [address] [place], [place] [phone] Social History Tobacco Use Types Packs/Day Years [...] documented as of this encounter Care Teams Resistor Inspector Relationship Specialty Start Date End Date Hilda Butt MD [address] [place] [address] PCP - General Family Medicine 06/20/22 Wilfrido 04/08/25 documented as of this encounter
--- OUTSIDE RECORDS SUMMARY | 2025-08-25 13:42 | XMS_ITS | Encounter Summary ---
Author Organization [employer] Address 75 [facility] 7t [place] [address] Care Team Providers Care Regulatory Services Consultant Name Role Phone Hilda Butt MD Primary Care Provider [phone] Reason for Visit * Reason Onset Date Comments Med Refill 10/16/2023 Encounter Details Date Type Department Care Team ([facility] Contact Info) Description 10/16/2023 Refill [facility] 230 [place], [place] [phone] Anum Fox FNP Recurrent acute serous otitis [...] documented as of this encounter Care Teams Regulatory Services Consultant Relationship Specialty Start Date End Date Hilda Butt MD [address] [place] [address] PCP - General Family Medicine 06/20/22 Wilfrido 04/08/25 documented as of this encounter
--- OUTSIDE RECORDS SUMMARY | 2025-08-25 13:42 | XMS_ITS | Encounter Summary ---
Author Organization [employer] Address 75 [facility] 7t [place] [address] Care Team Providers Care Admission Nurse Coordinator Name Role Phone Hilda Arshad MD Primary Care Provider [phone] Reason for Visit * Reason Onset Date Comments medical supplies 08/08/2023 Encounter Details Date Type Department Care Team ([facility] Contact Info) Description 08/08/2023 Telephone [facility] MEDICINE 230 [place], [place] [phone] Hilda Arshad MD 230 [place], [place] [phone] medical supplies Social History Tobacco Use Types [...] AND LINECARE WICH WILL BE SENT TO [facility] AT [facility] BECAUSE [facility] DOES NOT ACCEPT [facility]. * Telephone Encounter - Adelaida Gastelum [...] documented as of this encounter Care Teams Admission Nurse Coordinator Relationship Specialty Start Date End Date Hilda Arshad MD [address] [place] [address] PCP - General Family Medicine 06/20/22 Stareashelly 04/08/25 documented as of this encounter
--- OUTSIDE RECORDS SUMMARY | 2025-08-25 13:42 | XMS_ITS | Encounter Summary ---
Author Organization [employer] Address 75 [facility] 7t [place] [address] Care Team Providers Care Marine Electrician Apprentice Name Role Phone Hilda Butt MD Primary Care Provider [phone] Reason for Visit * Reason Onset Date Comments Med Refill 06/24/2024 Encounter Details Date Type Department Care Team ([facility] st Contact Info) Description 06/24/2024 Refill [facility] MEDICINE 230 [place], [place] [phone] Hilda Butt MD 230 [place], [place] [phone] Social History Tobacco Use Types Packs/Day Years [...] documented as of this encounter Care Teams Marine Electrician Apprentice Relationship Specialty Start Date End Date Hilda Butt MD 230 [place] [address] PCP - General Family Medicine 06/20/22 Wilfrido 04/08/25 documented as of this encounter
--- OUTSIDE RECORDS SUMMARY | 2025-08-25 13:42 | XMS_ITS | Encounter Summary ---
Author Organization [employer] Address [address] [facility] 7t [place] [address] Care Team Providers Care Social Professionals Name Role Phone Hilda Butt MD Primary Care Provider [phone] Reason for Visit * Reason Comments Med Refill Encounter Details Date Type Department Care Team ([facility] st Contact Info) Description 06/30/2024 Refill [facility] MEDICINE 230 [place], [place] [phone] Hilda Butt MD 230 [place], [place] [phone] Lower extremity edema Social History Tobacco Use [...] documented as of this encounter Care Teams Social Professionals Relationship Specialty Start Date End Date Hilda Butt MD 230 [place] [address] PCP - General Family Medicine 06/20/22 Wilfrido 04/08/25 documented as of this encounter
--- OUTSIDE RECORDS SUMMARY | 2025-08-25 13:42 | XMS_ITS | Encounter Summary ---
Author Organization [employer] Address 75 [facility] 7t [place] [address] Care Team Providers Care Orchestra Director Name Role Phone Hilda Butt MD Primary Care Provider [phone] Reason for Visit * Reason Comments Med Refill Encounter Details Date Type Department Care Team ([facility] st Contact Info) Description 07/28/2024 Refill [facility] MEDICINE 230 [place], [place] [phone] Hilda Butt MD 230 [place], [place] [phone] Social History Tobacco Use Types Packs/Day Years [...] documented as of this encounter Care Teams Orchestra Director Relationship Specialty Start Date End Date Hilda Butt MD 230 [place] [address] PCP - General Family Medicine 06/20/22 Wilfrido 04/08/25 documented as of this encounter
--- OUTSIDE RECORDS SUMMARY | 2025-08-25 13:42 | XMS_ITS | Encounter Summary ---
Author Organization [employer] Address [address] [facility] 7t [place] [address] Care Team Providers Care City Planning Teacher Name Role Phone Hilda Butt MD Primary Care Provider [phone] Reason for Visit * Reason Comments Med Refill Encounter Details Date Type Department Care Team ([facility] st Contact Info) Description 06/29/2024 Refill [facility] MEDICINE 230 [place], [place] [phone] Hilda Butt MD 230 [place], [place] [phone] Lower extremity edema Social History Tobacco Use [...] documented as of this encounter Care Teams City Planning Teacher Relationship Specialty Start Date End Date Hilda Butt MD 230 [place] [address] PCP - General Family Medicine 06/20/22 Wilfrido 04/08/25 documented as of this encounter
--- OUTSIDE RECORDS SUMMARY | 2025-08-25 13:42 | XMS_ITS | Encounter Summary ---
Author Organization [email or web address] Address [address] [facility] 7t [place] [address] Care Team Providers Care Weather Forcaster Name Role Phone Hilda Butt MD Primary Care Provider [phone] Reason for Visit * Reason Onset Date Comments Med Refill 08/22/2025 Encounter Details Date Type Department Care Team ([facility] Contact Info) Description 08/22/2025 Telephone [facility] MEDICINE 230 [place], [place] [phone] Hilda Butt MD 230 [place], [place] [phone] Med Refill Social History Tobacco Use Types [...] Telephone Encounter - Apple Stringer LPN - 08/22/2025 8:23 AM EDT Script sent to [facility] on 06/14/25 with 5 refills. * Telephone Encounter - Lulu Hatfield - 08/22/2025 8:18 AM EDT TC from pt requesting medication refill. Medications needing refill : - albuterol 108 (90 Base) MCG/ACT inhaler To be sent to: - [facility] - [place], [place] - [address] [place] [address] documented in this encounter Plan of Treatment [...] Time PHQ-9 Depression Total Score: 0 04/19/20 10:34 AM EDT documented as of this encounter Care Teams Weather Forcaster Relationship Specialty Start Date End Date Hilda Butt MD 230 [place] [address] PCP - General Family Medicine 06/20/22 Stareashelly 04/08/25 documented as of this encounter
== END 2025-08-25 12:10 | disposition home or self-care (01) ==
LOC: HO.HGS 10:55
PROVIDERS: PCP General Practice; Visit Provider Surgery
DX: Z93.1 Gastrostomy status (principal)
CPT/HCPCS: 99213

== ENCOUNTER → 2025-08-25 10:55 | Outpatient (BNVA) | payer OTHER, SELFPAY | PROVIDERS: PCP General Practice; Visit Provider Surgery | DX: Z93.1 Gastrostomy status (principal) | CPT/HCPCS: 99212 ==

== ENCOUNTER 2025-09-20 08:52 | Outpatient (AMB) | payer OTHER, SELFPAY ==
--- OUTSIDE RECORDS SUMMARY | 2025-09-16 11:45 | XMS_ITS | Encounter Summary ---
Author Organization [employer] Address [address] [place] [address] Care Team Providers Care Nurse Gynecology Name Role Phone Tara Paniagua RN Primary Care Provider [phone] Reason for Visit * Consultation (Routine) - Authorized Specialty Diagnoses / Procedures Referred By Contact Referred To Contact Physical Therapy Diagnoses Spastic hemiplegia of left nondominant side as late effect of cerebral infarction (CMS/HCC V24, CMS/HCC V28) Status post cerebrovascular accident S/P carotid endarterectomy Hilda Butt MD [address] [place] [address] Phone: tel:[phone] fax:[phone] [facility] [address] [address] Phone: tel: fax: Referral ID Status Reason Start Date Expiration Date Visits Requested Visits Authorized [id number] Authorized Consult and Treat 05/25/2025 05/25/2026 20 9 Encounter Details Date Type Department Care Team (Latest Contact Info) Description 09/16/2025 11:45 AM EST Treatment [facility] [address] [address] Alejandro Jose PTA Abnormality of gait following cerebrovascular accident (Primary Dx) Social History Tobacco Use Types [...] on file documented as of this encounter Progress Notes * Alejandro Jose PTA - 09/16/2025 11:45 AM EST [facility] - Outpatient PHYSICAL THERAPY DAILY TREATMENT NOTE - OP Date: 09/16/2025 Visit Number: 2 Patient Name: Renita Brandon : 1970 Age: 55 y.o. Gender: female Diagnosis: ICD-10-CM ICD-9-CM 1. Abnormality of gait following cerebrovascular accident I69.398 438.89 R26.9 781.2 Date of Onset/Surgery: 11/22/2024 Referring Provider: Hilda Butt MD Insurance: Payor: [facility] / Plan: [facility] / Product Type: *No Product type* / Patient Identified by: Alejandro Jose PTA Language: Speaks and understands St Helenian as preferred language with no insulation installer required Medications: Medications Ordered Prior to Encounter[1] Allergies: has no allergies on file. Precautions: Significant vascular history, monitor vitals Pacemaker No BP on L arm Fall risk: Yes SUBJECTIVE Subjective Report: Pain L arm and L leg from inactivity (goes by Ena ) Chart Reviewed: Yes Pain: L arm/ L leg - no rating given TREATMENT INTERVENTION: Max assist stand pivot transfer from WC to mat, mod assist to supine (to R) L LE PNF patterns D1 and D2 flexion and ext x 2 sets ea Bridging with therapist assisting to stabilize L ankle, 2 x 10 Man L ankle DF stretching in supine Assisted to sitting, then worked on unassisted sitting with reaching across body with R hand to target, with instruction to keep eyes on target on L side max assist transfer from mat to WC (to R) Performed standing in // bars x multiple trials with external cues through L LE to increase WB. Pt unable to extend L knee or maintain ext in standing with out assist. Performed lateral weight shifting in standing with therapist stabilizing L knee and ankle Partial stands from with R UE assist on bar and therapist stabilizing L foot to increase weight onto L LE ASSESSMENT/Response to Treatment Good No sig pain reported during session. Sig limited ability to push through L LE Patient Education: Education provided: POC Education Provided To: Patient utilizing Explanation mode(s) of education Response to Education: Verbal Understanding PLAN POC Development/Review: No Change in the Plan of Care; Participants: Patient Interventions Time Entry: Modalities: Therapeutic procedures: Therapeutic Activity Time Entry: 45 Total Treatment Time: 45 Documentation completed by Alejandro Jose PTA [1] No current outpatient medications on file prior to visit. No current facility-administered medications on file prior to visit. documented in this encounter Plan of Treatment Upcoming Encounters Date Type Department Care Team (Late st Contact Info) Description 09/29/2025 9:45 AM EST Treatment [address] [phone] Alejandro Jose, SHOES HAND SEWER 10/03/2025 1:00 PM EST Treatment [address] [address] Alejandro Jose, SHOES HAND SEWER 10/06/2025 9:45 AM EST Treatment [address] [address] Alejandro Jose, SHOES HAND SEWER 10/11/2025 11:00 AM EST Treatment [address] [address] Viktoriya Zaman, PT 10/13/2025 11:00 AM EST Treatment [address] [address] Viktoriya Zaman, PT 10/18/2025 10:45 AM EST Treatment [address] [address] Viktoriya Zaman, PT documented as of this encounter Visit Diagnoses Diagnosis Abnormality of gait following cerebrovascular accident- Primary documented in this encounter Care Teams Nurse Gynecology Relationship Specialty Start Date End Date Tara Paniagua RN [address] [place] [phone] PCP - General 07/24/22 documented as of this encounter
--- OUTSIDE RECORDS SUMMARY | 2025-09-19 10:30 | XMS_ITS | Encounter Summary ---
Author Organization [employer] Address [address] [place] [address] Care Team Providers Care It Specialist Name Role Phone Tara Paniagua RN Primary Care Provider [phone] Reason for Visit * Consultation (Routine) - Authorized Specialty Diagnoses / Procedures Referred By Contact Referred To Contact Physical Therapy Diagnoses Spastic hemiplegia of left nondominant side as late effect of cerebral infarction (CMS/HCC V24, CMS/HCC V28) Status post cerebrovascular accident S/P carotid endarterectomy Hilda Butt MD [address] [place] [address] Phone: tel: fax:[phone] [address] Phone: tel: fax: Referral ID Status Reason Start Date Expiration Date Visits Requested Visits Authorized [id number] Authorized Consult and Treat 05/25/2025 05/25/2026 20 9 Encounter Details Date Type Department Care Team (Latest Contact Info) Description 09/19/2025 10:30 AM EST Treatment [facility] [address] [address] Alejandro Jose PTA Abnormality of [...] Progress Notes * Alejandro Jose PTA - 09/19/2025 10:30 AM EST [facility] - Outpatient PHYSICAL THERAPY DAILY TREATMENT NOTE - OP Date: 09/19/2025 Visit Number: 3 Patient Name: Renita Brandon : 1970 Age: 55 y.o. Gender: female Diagnosis: ICD-10-CM ICD-9-CM 1. Abnormality of gait following cerebrovascular accident I69.398 438.89 R26.9 781.2 Date of Onset/Surgery: 11/22/2024 Referring Provider: Hilda Butt MD Insurance: Payor: [facility] MEDICARE / Plan: [facility] CARE / Product Type: *No Product type* / Patient Identified by: Alejandro Jose PTA Language: Speaks and understands [place] Islander as preferred language with no freelance interpreter/translator required Medications: Medications Ordered Prior to Encounter[1] Allergies: has no allergies on file. Precautions: Significant vascular history, monitor vitals Pacemaker No BP on L arm Fall risk: Yes SUBJECTIVE Subjective Report: My mother and daughter are both not feeling well so the transportation brought me by myself. Reporting some MCCURDY today. (goes by Ena ) Chart Reviewed: Yes Pain: L arm/ L leg - no rating given TREATMENT INTERVENTION: BP - 107/60 Max assist stand pivot transfer from WC to mat, mod assist to supine (to R) L LE PNF patterns D1 and D2 flexion and ext x 2 sets ea Man resisted L hip abd in HL - minimal strength noted Bridging with therapist assisting to stabilize L ankle, 2 x 10 Man L ankle DF stretching in supine max assist transfer from mat to WC (to R) Performed standing in // bars x multiple trials with external cues through L LE to increase WB. Pt unable to extend L knee or maintain ext in standing with out assist. Performed lateral weight shifting in standing with therapist stabilizing L knee and ankle ASSESSMENT/Response to Treatment Good No sig pain reported during session. Patient Education: Education provided: POC Education Provided To: Patient utilizing Explanation mode(s) of education Response to Education: Verbal Understanding PLAN POC Development/Review: No Change in the Plan of Care; Participants: Patient Interventions Time Entry: Modalities: Therapeutic procedures: Therapeutic Activity Time Entry: 40 Total Treatment Time: 40 Documentation completed by Alejandro Jose PTA [1] No current outpatient medications on file prior to visit. No current facility-administered medications on file prior to visit. documented in this encounter Plan of Treatment Upcoming Encounters Date Type Department Care Team (Late st Contact Info) Description 09/29/2025 9:45 AM EST Treatment [address] [address] Alejandro Jose, COOPER HELPER 10/03/2025 1:00 PM EST Treatment [address] [address] Alejandro Jose, COOPER HELPER 10/06/2025 9:45 AM EST Treatment [address] [address] Alejandro Jose, COOPER HELPER 10/11/2025 11:00 AM EST Treatment [address] [address] Viktoriya Zaman, PT 10/13/2025 11:00 AM EST Treatment [address] [address] Viktoriya Zaman, PT 10/18/2025 10:45 AM EST Treatment [address] [address] Viktoriya Zaman, PT documented as of this encounter Visit Diagnoses Diagnosis Abnormality of gait following cerebrovascular accident- Primary documented in this encounter Care Teams It Specialist Relationship Specialty Start Date End Date Tara Paniagua RN [address] [place] [phone] PCP - General 07/24/22 documented as of this encounter
[2025-09-20 09:11] VITALS: BP 122/74; PULSE 74; O2SAT 96
--- NOTE | 2025-09-20 09:11 | A.OFFVIS_ITS ---
Vital Signs 09/20/25 09:11 Height 4 ft 11 in BMI Reason not done Patient refused/unable BP 122/74 Blood Pressure Location Rt brachial Position Sitting Pulse 74 Pulse Source Pulse Oximeter Pulse Oximetry (%) 96 Oxygen Delivery Method Room Air Intake Visit Reasons: pulmonary nodules Allergies lisinopril Allergy (Verified 09/20/25 09:15) Cough ham Allergy (Uncoded 09/20/25 09:15) hives HPI HPI pulmonary nodules: Details: Renita is a pleasant 55 year old female, former 20 pack year smoker, quit 7 years ago, with underlying COPD, nonischemic cardiomyopathy related to left bundle-branch block LVEF 32% s/p pacer and breast cancer s/p surgery and radiation of left breast last year, under the care of Dr. Ken. She was lost to follow up, last evaluated 06/2024 and presents to reestablish care. Since the last visit, patient underwent right carotid endarterectomy 11/2023 with complications resulting in subsequent stroke with left sided deficits. She ultimately underwent PEG placement due to the inability to eat and swallow. She was evaluated by Dr. Walsh, noting oral intake for the last 6 months without any swallowing difficulties and requesting removal of PEG which was removed 08/25/25. Patient continues to deny any swallowing challenges, reportedly had swallow evaluation during the Spring through [facility] without abnormalities. No records to review. Over the last 4-6 weeks patient reports development of harsh productive cough, unsure of sputum color with associated dyspnea. Today she is accompanied by mother who endorses persistent loud cough that keeps everyone up at night. She denies fevers, chills or sick contacts. She has been using DuoNeb PRN and Singulair. [facility] Medical History (Updated 09/26/25 @ 10:45 by Sandy Shah NP) Acute hypernatremia Laryngeal edema Stroke Dissection of right carotid artery Dysphagia Hx of radiation therapy Habitual snoring Cough On beta yamini at home Pacemaker Cardiac resynchronization therapy defibrillator (MACHINE OPERATOR PACKAGING-D) in place (~06/2023) LBBB (left bundle branch block) NICM (nonischemic cardiomyopathy) Invasive ductal carcinoma of left breast (~02/2022) Anemia COPD (chronic obstructive pulmonary disease) Hypercholesteremia Bipolar 1 disorder Hypertension Surgical History (Updated 08/25/25 @ 11:53 by Jorge L Walsh MD) PEG (percutaneous endoscopic gastrostomy) status S/P percutaneous endoscopic gastrostomy (PEG) tube placement (~12/06/24) History of cardiac defibrillator placement (~2022) History of cardiac cath (~2021) History of foot surgery (~2006) History of left breast biopsy (~2021) History of lumpectomy of left breast (~2021) History of hysterectomy (~2021) Family History Maternal Aunt Lupus Mother Breast cancer Social History Household Members: None Housing: Apartment Are you a primary care support representative to a significant other at home: No Do you presently have visiting nurse or other home services: No Alcohol intake: never Patient Tobacco Use Status: Former Tobacco user Tobacco use type: Cigarette service: No 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al status: disabled 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 Female Reproductive History Menstrual Age of Menarche: 12 Review of Systems Const Denies chills, Denies excessive sweating, Denies fever(s), Denies headache(s) and Denies night sweats Eyes Denies dry eyes, Denies irritation and Denies itchy eyes ENT Reports Normal hearing present, Denies headache(s), Denies nasal congestion, Denies nasal discharge, Denies post nasal drip and Denies sore throat Card Denies chest pain, Denies chest pain at rest, Denies chest pain with activity, Denies claudication, Denies leg edema, Denies orthopnea and Denies paroxysmal nocturnal dyspnea Resp Denies pain on inspiration, Denies pain with cough, Denies stridor and Denies wheezing Musc Denies myalgias Neuro Reports Normal hearing present and Denies headache(s) Endo Denies excessive sweating Franklin/Lymph Denies lymphadenopathy Aller/Immun Denies itchy eyes, Denies seasonal rhinorrhea and Denies wheezing Physical Exam Vital Signs: Last Vital Signs Pulse 74 09/20/25 09:11 BP 122/74 09/20/25 09:11 Pulse Ox 96 09/20/25 09:11 Oxygen Delivery Method Room Air 09/20/25 09:11 Const Other: left sided hemiparesis General: cooperative, healthy appearing, no acute distress and alert Orientation/consciousness: oriented to person and oriented to place Limitations: physical limitations and wheelchair HEENT Head: Yes normal to inspection, Yes normocephalic and Yes atraumatic Ears: hearing grossly normal bilaterally and external ears normal Eyes General: appearance normal, both eyes and all related structures Eyelids: Yes eyelids normal Sclerae: sclerae normal EOM: EOMs intact bilaterally Neck Neck: Yes normal visual inspection and Yes no lymphadenopathy Lymphatic: no lymphadenopathy noted Chest Chest palpation & inspection: normal inspection of the chest Resp Other: harsh coughing fits throughout visit Effort & Inspection: normal respiratory effort, able to speak in complete sentences, no audible wheezes, Actively coughing, no stridor, not tachypneic, no tripod positioning and no use of accessory muscles Auscultation: diminished lung sounds Cardio Jugular venous distension: no JVD Rate: regular rate Rhythm: regular rhythm Skin Other: warm, dry General skin exam: no rashes or lesions noted Neuro General: oriented to person and oriented to place Cranial nerves: Yes Normal hearing present Cognition (Neuro): normal cognition Gait exam (Neuro): Assisted gait required Extrem General: Yes normal to inspection, Yes capillary refill normal, Yes no clubbing, cyanosis or edema and Yes no pedal edema Psych Appearance: grossly normal and well kempt Speech and movement: Normal speech and movement present and Clear speech present Affect: normal affect Attitude: cooperative Thought process: Normal thought process present Thought content: Normal thought content present Insight: Fair insight present (Psych) Judgement: Fair judgement present (Psych) Assessment & Plan Assessment & Plan (1) Cough: Code(s): R05.9 - Cough, unspecified Category: Medical (2) COPD (chronic obstructive pulmonary disease): Code(s): J44.9 - Chronic obstructive pulmonary disease, unspecified Category: Medical (3) Pulmonary nodule: Code(s): R91.1 - Solitary pulmonary nodule Category: Medical Plan Given timing of removal of PEG tube and start of coughing, likely cough related to aspiration. Will treat with Augmentin. She is aware to call if symptoms do not improve or seek emergent care if symptoms worsen. Will reach out to [facility] to obtain last MBSS, may need to repeat. Encouraged patient to continue DuoNeb PRN and Singulair. All questions were answered and patient is in agreement of plan. Will follow up in 4-6 weeks or sooner if needed. Medications: New amoxicillin-pot clavulanate 875-125 mg 1 tab PO Q12H 20 tabs 0RF montelukast 10 mg PO BEDTIME 30 tabs 3RF Refilled ipratropium-albuterol 0.5 mg-3 mg(2.5 mg base)/3 mL 3 mL inhalation Q6H PRN 180 mL 3RF wheezing Coding Level of Care Code Est Pt Level 4 (50906) Diagnoses Cough R05.9 COPD (chronic obstructive pulmonary disease) J44.9 Pulmonary nodule R91.1
--- OUTSIDE RECORDS SUMMARY | 2025-09-20 09:23 | XMS_ITS | Encounter Summary ---
Author Organization [employer] Address [address] [facility] 7t [place] [address] Care Team Providers Care Production Assembly Operator Name Role Phone Hilda Butt MD Primary Care Provider [phone] Reason for Visit * Reason Comments Med Refill Encounter Details Date Type Department Care Team ([facility] st Contact Info) Description 02/03/2023 Refill [facility] MEDICINE [address] [place] [phone] Hilda Butt MD [address] [place], [place] [phone] Social History Tobacco Use Types Packs/Day Years [...] as of this encounter Care Teams Production Assembly Operator Relationship Specialty Start Date End Date Hilda Butt MD [address] [place] [address] PCP - General Family Medicine 06/20/22 Wilfrido 04/08/25 documented as of this encounter
--- OUTSIDE RECORDS SUMMARY | 2025-09-20 09:23 | XMS_ITS | Encounter Summary ---
Author Organization [employer] Address [address] [facility] [address] [place] [address] Care Team Providers Care Cannoneer Name Role Phone Hilda Butt MD Primary Care Provider [phone] Encounter Details Date Type Department Care Team ([facility] st Contact Info) Description 12/30/2022 Orders Only [facility] MEDICINE [address] [place] [address] Hilda Butt MD [address] [place] [address] Low back pain at multiple sites (Primary [...] laterality documented in this encounter Care Teams Cannoneer Relationship Specialty Start Date End Date Hilda Butt MD [address] [place] [phone] PCP - General Family Medicine 06/20/22 Wilfrido 04/08/25 documented as of this encounter
--- OUTSIDE RECORDS SUMMARY | 2025-09-20 09:23 | XMS_ITS | Encounter Summary ---
Author Organization [employer] Address [address] [facility] 7t [place] [address] Care Team Providers Care Ply Bander Name Role Phone Hilda Butt MD Primary Care Provider [phone] Reason for Visit * Reason Onset Date Comments Med Refill 03/11/2024 Encounter Details Date Type Department Care Team ([facility] Contact Info) Description 03/11/2024 Refill [facility] [address] [place], [place] [phone] Hilda Butt MD [address] [place] [address] Itchy skin of anus and genitals; Recurrent [...] documented as of this encounter Care Teams Ply Bander Relationship Specialty Start Date End Date Hilda Butt MD [address] [place] [address] PCP - General Family Medicine 06/20/22 Stareashelly 04/08/25 documented as of this encounter
--- OUTSIDE RECORDS SUMMARY | 2025-09-20 09:23 | XMS_ITS | Encounter Summary ---
Author Organization [employer] Address [address] [facility] 7t [place] [address] Care Team Providers Care Equipment Sales Specialist Name Role Phone Hilda Butt MD Primary Care Provider [phone] Reason for Visit * Reason Onset Date Comments Med Refill 03/11/2024 Encounter Details Date Type Department Care Team ([facility] st Contact Info) Description 03/11/2024 Refill [facility] MEDICINE [address] [place], [place] [phone] Hilda Butt MD [address] [place], [place] [phone] Social History Tobacco Use Types Packs/Day Years [...] documented as of this encounter Care Teams Equipment Sales Specialist Relationship Specialty Start Date End Date Hilda Butt MD [address] [place] [address] PCP - General Family Medicine 06/20/22 Wilfrido 04/08/25 documented as of this encounter
--- OUTSIDE RECORDS SUMMARY | 2025-09-20 09:23 | XMS_ITS | Encounter Summary ---
Author Organization [employer] Address [address] [facility] 7t [place] [address] Care Team Providers Care Pineapple Plantation Manager Name Role Phone Hilda Butt MD Primary Care Provider [phone] Encounter Details Date Type Department Care Team ([facility] st Contact Info) Description 03/24/2024 Orders Only [facility] MEDICINE [address] [place], [place] [phone] Hilda Butt MD [address] [place], [place] [phone] Vertebral artery dissection (CMS/HCC) (Primary Dx) Social [...] documented as of this encounter Care Teams Pineapple Plantation Manager Relationship Specialty Start Date End Date Hilda Butt MD [address] [place] [address] PCP - General Family Medicine 06/20/22 Stareashelly 04/08/25 documented as of this encounter
--- OUTSIDE RECORDS SUMMARY | 2025-09-20 09:23 | XMS_ITS | Clinical Summary ---
Author Organization [facility] Address [address] [place] [phone] Phone Care Team Providers Care Manager Of Photography Name Role Phone Tara Paniagua RN Primary Care Provider [phone] Encounters Date Type Department Care Team Description 09/19/2025 10:30 AM EST Treatment [address] [address] Alejandro Jose, CUSTOMER ACCOUNT EXECUTIVE Abnormality of gait following cerebrovascular accident (Primary Dx) 09/16/2025 11:45 AM EST Treatment [address] [address] Alejandro Jose, CUSTOMER ACCOUNT EXECUTIVE Abnormality of gait following cerebrovascular accident (Primary Dx) 09/14/2025 10:00 AM EST Evaluation [address] [address] Viktoriya Zaman, PT Abnormality of gait following cerebrovascular accident (Primary Dx) from Last 3 Months Surgical History Surgery Date Site/Laterality Comments TUBAL LIGATION PROCEDURE: HISTORICAL TUBAL LIGATION BUNIONECTOMY PROCEDURE: [place] CORRJ HLX VLGS BNCTY SESMDC W/DOUBLE OSTEOTOMY [...] Info) Description 09/29/2025 9:45 AM EST Treatment [address] [address] Alejandro Jose, CUSTOMER ACCOUNT EXECUTIVE 10/03/2025 1:00 PM EST Treatment [address] [address] Alejandro Jose, CUSTOMER ACCOUNT EXECUTIVE 10/06/2025 9:45 AM EST Treatment [address] [address] Alejandro Jose, CUSTOMER ACCOUNT EXECUTIVE 10/11/2025 11:00 AM EST Treatment [address] [address] Viktoriya Zaman, PT 10/13/2025 11:00 AM EST Treatment [address] [address] Viktoriya Zaman, PT 10/18/2025 10:45 AM EST Treatment [address] [address] Viktoriya Zaman, PT Health Maintenance Due Date [...] 11/17/19 Hepatitis B Vaccines Completed 08/19/2024, 06/23/2024, 06/03/2024, Additional history exists HIB Vaccines Aged Out No longer eligi [...] 02/09/2025 7:58 AM EDT Heart failure, unspecified (CMS/[facility]ER[facility] V24, CMS/FORMER[facility] V28) from Last 3 Months or Most Recently Relevant to Health Maintenance Results * Basic metabolic panel (02/09/2025 7:58 AM EDT) Sodium 139 133 - 145 mmol/L LAB CHEMISTRY METHOD 02/09/2025 12:40 PM [facility] Potassium 3.8 3.5 - 5.5 mmol/L LAB CHEMISTRY METHOD 02/09/2025 12:40 PM [facility] Chloride 104 96 - 110 mmol/L LAB CHEMISTRY METHOD 02/09/2025 12:40 PM [facility] CO2 28 21 - 32 mmol/L LAB CHEMISTRY METHOD 02/09/2025 12:40 PM [facility] Anion Gap 7 3 - 11 LAB CHEMISTRY METHOD 02/09/2025 12:40 PM [facility] Glucose 93 70 - 100 mg/dL LAB CHEMISTRY METHOD 02/09/2025 12:40 PM [facility] BUN 17 5 - 25 mg/dL LAB CHEMISTRY METHOD 02/09/2025 12:40 PM [facility] Creatinine 0.54 0.50 - 1.10 mg/dL LAB CHEMISTRY METHOD 02/09/2025 12:40 PM [facility] eGFR 111 >=60 mL/min/1. 73m2 LAB CHEMISTRY METHOD 02/09/2025 12:40 PM [facility] Comment:Calculation based on the Chronic Kidney Disease Epidemiology Collaboration (CKD-EPI) equation refit without adjustment for race. BUN/Creatinine Ratio 31.5 LAB CHEMISTRY METHOD 02/09/2025 12:40 PM [facility] Calcium 9.6 8.5 - 10.5 mg/dL LAB CHEMISTRY METHOD 02/09/2025 12:40 PM [facility] Blood Venous blood specimen / Unknown Venipuncture / Unknown 02/09/2025 7:58 AM EDT 02/09/2025 11:12 AM EDT us Benjamin Kim MD LAB BLOOD ORDERABLES Final Resul t [facility] ([facility] [address] [place] [address], [place] [phone] from Last 3 Months or Most Recently Relevant to Health Maintenance Insurance [facility] MEDICARE Member Subscriber Plan / Payer (Ef fective 2023-Present) Name:VALVERDE, RENITA Relation to Subscriber:Self Name:Renita Valverde Payer ID:[id number] Group ID:[id number] Type:Not on file Address: [address] [facility] [place] [phone] Advance Directives Documents on File Type Date Recorded Patient Card Dealer Expl anation Health Care Decision (hx) 02/06/2024 AD ORTIZ DIRECTIVE Health Care Decision (hx) 02/06/2024 AD ORTIZ DIRECTIVE Health Care Decision (hx) 02/06/2024 AD ORTIZ DIRECTIVE Health Care Decision (hx) 02/04/2023 AD ORTIZ DIRECTIVE Care Teams Manager Of Photography Relationship Specialty Start Date End Date Tara Paniagua RN [address] [place] [phone] PCP - General 07/24/22
--- OUTSIDE RECORDS SUMMARY | 2025-09-20 09:24 | XMS_ITS | Encounter Summary ---
Author Organization [employer] Address [address] [facility] 7t [place] [address] Care Team Providers Care Behavior Analyst Name Role Phone Hilda Butt MD Primary Care Provider [phone] Reason for Visit * Reason Onset Date Comments Med Refill 02/25/2024 Encounter Details Date Type Department Care Team ([facility] st Contact Info) Description 02/25/2024 Refill [facility] MEDICINE [address] [place], [place] [phone] Hilda Butt MD [address] [place], [place] [phone] Dizziness Social History Tobacco Use Types Packs/Day [...] documented as of this encounter Care Teams Behavior Analyst Relationship Specialty Start Date End Date Hilda Butt MD [address] [place] [address] PCP - General Family Medicine 06/20/22 Wilfrido 04/08/25 documented as of this encounter
--- OUTSIDE RECORDS SUMMARY | 2025-09-20 09:24 | XMS_ITS | Encounter Summary ---
Author Organization [employer] Address [address] [facility] 7t [place] [address] Care Team Providers Care Professor Of Kinesiology Name Role Phone Hilda Butt MD Primary Care Provider [phone] Reason for Visit * Reason Onset Date Comments Med Refill 05/10/2024 Encounter Details Date Type Department Care Team ([facility] st Contact Info) Description 05/10/2024 Refill [facility] MEDICINE [address] [place], [place] [phone] Hilda Butt MD [address] [place], [place] [phone] Social History Tobacco Use Types Packs/Day Years [...] documented as of this encounter Care Teams Professor Of Kinesiology Relationship Specialty Start Date End Date Hilda Butt MD [address] [place] [address] PCP - General Family Medicine 06/20/22 Wilfrido 04/08/25 documented as of this encounter
--- OUTSIDE RECORDS SUMMARY | 2025-09-20 09:24 | XMS_ITS | Encounter Summary ---
Author Organization [employer] Address [address] [place] [address] 7t [place] [address] Care Team Providers Care Garment Parts Cutter Hand Name Role Phone Hilda Butt MD Primary Care Provider [phone] Reason for Referral * Imaging (Routine) - Closed Specialty Diagnoses / Procedures Referred By Winter roa Referred To Contact Radiology Diagnoses Vertebral artery dissection Tinnitus of both ears Procedures CTA Neck w/ and w/o Contrast Hilda Butt MD [address] [place], [place] Phone: tel: fax: [address] [address] Phone: tel: fax: Referral ID Status Reason Start Date Expiration Date Visits Re quested Visits Authorized [id number] Closed 03/08/2024 03/08/2025 1 1 * Imaging (Routine) - Closed Specialty Diagnoses / Procedures Referred By Winter roa Referred To Contact Radiology Diagnoses Vertebral artery dissection Tinnitus of both ears Procedures CTA Head w/ and w/o Contrast Hilda Butt MD [address] [place], [place] Phone: tel: fax: [address] [address] Phone: tel: fax: Referral ID Status Reason Start Date Expiration Date Visits Re quested Visits Authorized [id number] Closed 03/08/2024 03/08/2025 1 1 * Imaging (Routine) - Canceled Specialty Diagnoses / Procedures Referred By Winter t Referred To Contact Radiology Diagnoses Vertebral artery dissection Tinnitus of both ears Procedures CTA Head Neck w/ and w/o Contrast Hilda Butt MD [address] [place] [address] Phone: tel: fax: [address] [address] Phone: tel: fax: Referral ID Status Reason Start Date Expiration Date V isits Requested Visits Authorized [id number] Canceled 03/05/2024 03/05/2025 1 1 Encounter Details Date Type Department Care Team (Late st Contact Info) Description 03/05/2024 Orders Only [facility] MEDICINE [address] [place], [place] [phone] Hilda Butt MD [address] [place], [place] [phone] Vertebral artery dissection (CMS/HCC) (Primary Dx); Tinnitus [...] PM EDT Narrative 06/09/2024 10:01 AM EDT [address] [address] [address] Scan Report Signed Patient: Renita Brandon MR#: [id number] 4 : 1970 Acct:[id number] Age/Sex: 53 / F ADM Date: 05/17/24 Loc: HO.CT Attending Dr: Hilda Butt MD Ordering Physician: Hilda Butt Date of Service: 05/17/24 Procedure(s): CT angio head neck Accession Number(s): [id number] cc: Hilda Butt EXAMINATION: CT ANGIOGRAM HEAD [...] aspect of the left vertebral artery with ynkn-cl-dymcrjpe luminal narrowing. Right Carotid: There is moderately [...] in OV> 06/09/24 0957 DD/ 1356 TD/TT: Talent Assistant: Procedure Note Donotuseinterpreter, Image - 06/09/[address] [place] [address] [address] Scan Report Signed Patient: Renita Brandon#: [id number] 4 : 1970Acct:[id number] Age/Sex: 53 / FADM Date: 05/17/24 Loc: .CT Attending Dr: Hilda Butt MD Ordering Physician: Hilda Butt Date of Service: 05/17/24 Procedure(s): CT angio head neck Accession Number(s): [id number] cc: Hilda Butt EXAMINATION: CT ANGIOGRAM HEAD [...] aspect of the left vertebral artery with alev-ag-vtgxfsef luminal narrowing. Right Carotid: There is moderately [...] in OV> 06/09/24 0957 DD/ 1356 TD/TT: Talent Assistant: Hilda Butt MD IMG CT PROCEDURES Final Result documented in this encounter Visit Diagnoses Diagnosis Vertebral artery dissection- Primary Dissection of vertebral artery Tinnitus of both ears Unspecified tinnitus documented in this encounter Additional Health Concerns Assessment Noted Time PHQ-9 Depression Total Score: 0 11/17/19 24 10:34 AM EST documented as of this encounter Care Teams Garment Parts Cutter Hand Relationship Specialty Start Date End Date Hilda Butt MD [address] [place] [address] PCP - General Family Medicine 06/20/22 Aveanna 04/08/25 documented as of this encounter
--- OUTSIDE RECORDS SUMMARY | 2025-09-20 09:24 | XMS_ITS | Encounter Summary ---
Author Organization [employer] Address 75 [facility] 7t [place] [address] Care Team Providers Care Shoelace Tipping Machine Operator Name Role Phone Hilda Butt MD Primary Care Provider [phone] Reason for Visit * Reason Onset Date Comments Med Refill 05/25/2024 Encounter Details Date Type Department Care Team ([facility] st Contact Info) Description 05/25/2024 Refill [facility] CHC MED & PEDS [address] [place], [place] [phone] Hilda Butt MD [address] [place] [address] Social History Tobacco Use Types Packs/Day Years [...] documented as of this encounter Care Teams Shoelace Tipping Machine Operator Relationship Specialty Start Date End Date Hilda Butt MD [address] [place] [address] PCP - General Family Medicine 06/20/22 Wilfrido 04/08/25 documented as of this encounter
--- OUTSIDE RECORDS SUMMARY | 2025-09-20 09:24 | XMS_ITS | Encounter Summary ---
Author Organization [employer] Address 75 [facility] 7t [place] [address] Care Team Providers Care Traffic And Transport Planner Name Role Phone Hilda Butt MD Primary Care Provider [phone] Reason for Visit * Reason Onset Date Comments Med Refill 02/25/2024 Encounter Details Date Type Department Care Team ([facility] st Contact Info) Description 02/25/2024 Refill [facility] MEDICINE [address] [place], [place] [phone] Hilda Butt MD [address] [place], [place] [phone] Itchy skin of anus and genitals; Recurrent [...] as of this encounter Care Teams Traffic And Transport Planner Relationship Specialty Start Date End Date Hilda Butt MD [address] [place] [address] PCP - General Family Medicine 06/20/22 Wilfrido 04/08/25 documented as of this encounter
--- OUTSIDE RECORDS SUMMARY | 2025-09-20 09:24 | XMS_ITS | Encounter Summary ---
Author Organization [employer] Address 75 [facility] 7t [place] [address] Care Team Providers Care Belt Tender Name Role Phone Hilda Butt MD Primary Care Provider [phone] Reason for Visit * Reason Onset Date Comments Med Refill 03/01/2024 Encounter Details Date Type Department Care Team ([facility] st Contact Info) Description 03/01/2024 Refill [facility] MEDICINE [address] [place], [place] [phone] Hilda Butt MD [address] [place], [place] [phone] Itchy skin of anus and genitals; Recurrent [...] documented as of this encounter Care Teams Belt Tender Relationship Specialty Start Date End Date Hilda Butt MD [address] [place] [address] PCP - General Family Medicine 06/20/22 Wilfrido 04/08/25 documented as of this encounter
--- OUTSIDE RECORDS SUMMARY | 2025-09-20 09:25 | XMS_ITS | Encounter Summary ---
Author Organization [employer] Address 75 [facility] 7t [place] [address] Care Team Providers Care Slip Mixer Name Role Phone Hilda Butt MD Primary Care Provider Reason for Visit * Reason Onset Date Comments Med Refill 11/19/2024 Encounter Details Date Type Department Care Team ([facility] st Contact Info) Description 11/19/2024 Refill [facility] CHC MED & PEDS [address] [place], [place] [phone] Hilda Butt MD [address] [place] [address] Social History Tobacco Use Types Packs/Day Years [...] documented as of this encounter Care Teams Slip Mixer Relationship Specialty Start Date End Date Hilda Butt MD [address] [place] [address] PCP - General Family Medicine 06/20/22 Wilfrido 04/08/25 documented as of this encounter
--- OUTSIDE RECORDS SUMMARY | 2025-09-20 09:25 | XMS_ITS | Encounter Summary ---
Author Organization [employer] Address 75 [facility] 7t [place] [address] Care Team Providers Care Employment Recruiter Name Role Phone Hilda Butt MD Primary Care Provider [phone] Encounter Details Date Type Department Care Team ([facility] st Contact Info) Description 09/21/2024 Orders Only [facility] MEDICINE [address] [place], [place] [phone] Hilda Butt MD [address] [place], [place] [phone] Social History Tobacco Use Types Packs/Day Years [...] documented as of this encounter Care Teams Employment Recruiter Relationship Specialty Start Date End Date Hilda Butt MD [address] [place] [address] PCP - General Family Medicine 06/20/22 Stareashelly 04/08/25 documented as of this encounter
--- OUTSIDE RECORDS SUMMARY | 2025-09-20 09:25 | XMS_ITS | Encounter Summary ---
Author Organization [employer] Address 75 [facility] 7t [place] [address] Care Team Providers Care Bull Wheel Worker Name Role Phone Hilda Butt MD Primary Care Provider [phone] Reason for Visit * Reason Onset Date Comments Med Refill 04/22/2024 Encounter Details Date Type Department Care Team ([facility] Contact Info) Description 04/22/2024 Refill [facility] MEDICINE [address] [place], [place] [phone] Hilda Butt MD [address] [place], [place] [phone] Social History Tobacco Use Types Packs/Day Years [...] documented as of this encounter Care Teams Bull Wheel Worker Relationship Specialty Start Date End Date Hilda Butt MD [address] [place] [address] PCP - General Family Medicine 06/20/22 Wilfrido 04/08/25 documented as of this encounter
--- OUTSIDE RECORDS SUMMARY | 2025-09-20 09:25 | XMS_ITS | Encounter Summary ---
Author Organization [employer] Address 75 [facility] 7t [place] [address] Care Team Providers Care Tutor Name Role Phone Hilda Butt MD Primary Care Provider [phone] Reason for Visit * Reason Onset Date Comments Med Refill 08/10/2024 Encounter Details Date Type Department Care Team ([facility] Contact Info) Description 08/10/2024 Refill [facility] CHC MED & PEDS [address] [place], [place] [phone] Hilda Butt MD [address] [place] [address] Social History Tobacco Use Types Packs/Day Years [...] documented as of this encounter Care Teams Tutor Relationship Specialty Start Date End Date Hilda Butt MD [address] [place] [address] PCP - General Family Medicine 06/20/22 Wilfrido 04/08/25 documented as of this encounter
--- OUTSIDE RECORDS SUMMARY | 2025-09-20 09:25 | XMS_ITS | Encounter Summary ---
Author Organization [employer] Address 75 [facility] 7t [place] [address] Care Team Providers Care Glassware Verifier Name Role Phone Hilda Butt MD Primary Care Provider Reason for Visit * Reason Comments Med Refill Encounter Details Date Type Department Care Team ([facility] st Contact Info) Description 04/23/2023 Refill [facility] MEDICINE [address] [place], [place] [phone] Shamar Stevens FNP Bipolar II disorder (CMS/HCC) [...] documented as of this encounter Care Teams Glassware Verifier Relationship Specialty Start Date End Date Hilda Butt MD [address] [place] [address] PCP - General Family Medicine 06/20/22 Aveanna 04/08/25 documented as of this encounter
--- OUTSIDE RECORDS SUMMARY | 2025-09-20 09:25 | XMS_ITS | Encounter Summary ---
Author Organization [employer] Address 75 [facility] 7t [place] [address] Care Team Providers Care Aix Administrator Name Role Phone Hilda Butt MD Primary Care Provider Reason for Visit * Reason Onset Date Comments Med Refill 11/17/2024 Encounter Details Date Type Department Care Team ([facility] st Contact Info) Description 11/17/2024 Refill [facility] MEDICINE [address] [place], [place] [phone] Hilda Butt MD [address] [place], [place] [phone] Social History Tobacco Use Types Packs/Day Years [...] documented as of this encounter Care Teams Aix Administrator Relationship Specialty Start Date End Date Hilda Butt MD [address] [place] [address] PCP - General Family Medicine 06/20/22 Wilfrido 04/08/25 documented as of this encounter
--- OUTSIDE RECORDS SUMMARY | 2025-09-20 09:25 | XMS_ITS | Encounter Summary ---
Author Organization [employer] Address [address] [facility] 7t [place] [address] Care Team Providers Care Ventilation Equipment Tender Name Role Phone Hilda Butt MD Primary Care Provider [phone] Encounter Details Date Type Department Care Team ([facility] st Contact Info) Description 11/05/2024 Orders Only [facility] MEDICINE [address] [place], [place] [phone] Hilda Butt MD [address] [place], [place] [phone] Social History Tobacco Use Types Packs/Day Years [...] documented as of this encounter Care Teams Ventilation Equipment Tender Relationship Specialty Start Date End Date Hilda Butt MD [address] [place] [address] PCP - General Family Medicine 06/20/22 Stareashelly 04/08/25 documented as of this encounter
--- OUTSIDE RECORDS SUMMARY | 2025-09-20 09:25 | XMS_ITS | Encounter Summary ---
Author Organization [employer] Address 75 [facility] 7t [place] [address] Care Team Providers Care Kennel Hand Name Role Phone Hilda Butt MD Primary Care Provider [phone] Reason for Visit * Reason Onset Date Comments Med Refill 11/05/2024 Encounter Details Date Type Department Care Team ([facility] st Contact Info) Description 11/05/2024 Refill [facility] MEDICINE [address] [place], [place] [phone] Hilda Butt MD [address] [place], [place] [phone] Social History Tobacco Use Types Packs/Day Years [...] documented as of this encounter Care Teams Kennel Hand Relationship Specialty Start Date End Date Hilda Butt MD [address] [place] [address] PCP - General Family Medicine 06/20/22 Wilfrido 04/08/25 documented as of this encounter
--- OUTSIDE RECORDS SUMMARY | 2025-09-20 09:25 | XMS_ITS | Encounter Summary ---
Author Organization [employer] Address [address] [place] [address] Care Team Providers Care Python Consultant Name Role Phone Tara Paniagua RN Primary Care Provider [phone] Encounter Details Date Type Department Care Team (Late st Contact Info) Description 12/10/2024 Lab Requisition [facility] - Main Lab [address] [place] [address] Benjamin Kim MD 38 [facility] [address] [place], [address] Essential (primary) hypertension Social History Tobacco [...] Department Care Team (Late Contact Info) Description 09/29/2025 9:45 AM EST Treatment [address] [phone] Alejandro Jose PTA 10/03/2025 1:00 PM EST Treatment [facility] [address] [address] Alejandro Jose, DIRECTOR METABOLISM 10/06/2025 9:45 AM EST Treatment [facility] [address] [address] Alejandro Jose, DIRECTOR METABOLISM 10/11/2025 11:00 AM EST Treatment [facility] [address] [address] Viktoriya Zaman, PT 10/13/2025 11:00 AM EST Treatment [facility] [address] [address] Viktoriya Zaman, PT 10/18/2025 10:45 AM EST Treatment [facility] [address] [address] Viktoriya Zaman, PT documented as of this [...] mmol/L LAB CHEMISTRY METHOD 12/10/2024 11:46 AM [facility] LAB Potassium 4.3 3.5 - 5.5 mmol/L LAB CHEMISTRY METHOD 12/10/2024 11:46 AM [facility] LAB Chloride 104 96 - 110 mmol/L LAB CHEMISTRY METHOD 12/10/2024 11:46 AM [facility] LAB CO2 29 21 - 32 mmol/L LAB CHEMISTRY METHOD 12/10/2024 11:46 AM [facility] LAB Anion Gap 6 3 - 11 LAB CHEMISTRY METHOD 12/10/2024 11:46 AM [facility] LAB Glucose 122(H) 70 - 100 mg/dL LAB CHEMISTRY METHOD 12/10/2024 11:46 AM EST [facility] BUN 13 5 - 25 mg/dL LAB CHEMISTRY METHOD 12/10/2024 11:46 AM [facility] LAB Creatinine 0.56 0.50 - 1.10 mg/dL LAB CHEMISTRY METHOD 12/10/2024 11:46 AM [facility] LAB eGFR 110 >=60 mL/min/1. 73m2 LAB CHEMISTRY METHOD 12/10/2024 11:46 AM [facility] LAB Comment:Calculation based on the Chronic Kidney Disease Epidemiology Collaboration (CKD-EPI) equation refit without adjustment for race. BUN/Creatinine Ratio 23.2 LAB CHEMISTRY METHOD 12/10/2024 11:46 AM [facility] Calcium 9.7 8.5 - 10.5 mg/dL LAB CHEMISTRY METHOD 12/10/2024 11:46 AM [facility] Blood Venous blood specimen / Unknown Venipuncture / Unknown 12/10/2024 7:30 AM EST 12/10/2024 10:55 AM EST us Benjmain Kim MD LAB BLOOD ORDERABLES Final Resul t [facility] [address] [place] [address], * (ABNORMAL) Complete blood count (12/10/2024 7:30 AM EST) WBC 6.1 4.8 - 10.8 K/mcL LAB HEMETOLOGY METHOD 12/10/2024 11:22 AM [facility] RBC 3.70(L) 3.80 - 4.80 M/mcL LAB HEMETOLOGY METHOD 12/10/2024 11:22 AM [facility] Hemoglobin 10.6(L) 11.5 - 16.0 g/dL LAB HEMETOLOGY METHOD 12/10/2024 11:22 AM EST [facility] Hematocrit 33.2(L) 35.0 - 47.0 % LAB HEMETOLOGY METHOD 12/10/2024 11:22 AM [facility] MCV 89.2 79.0 - 98.0 FL LAB HEMETOLOGY METHOD 12/10/2024 11:22 AM EST [facility] MCH 28.5 27.0 - 32.0 pcg LAB HEMETOLOGY METHOD 12/10/2024 11:22 AM EST [facility] MCHC 31.9(L) 32.0 - 37.0 g/dL LAB HEMETOLOGY METHOD 12/10/2024 11:22 AM [facility] RDW 13.9 11.0 - 15.0 % LAB HEMETOLOGY METHOD 12/10/2024 11:22 AM [facility] Platelets 396 130 - 400 K/mcL LAB HEMETOLOGY METHOD 12/10/2024 11:22 AM EST [facility] MPV 9.7 7.0 - 11.0 FL LAB HEMETOLOGY METHOD 12/10/2024 11:22 AM [facility] NRBC 0.0 <1.0 % LAB HEMETOLOGY METHOD 12/10/2024 11:22 AM [facility] NRBC Absolute 0.00 <0.10 K/mcL LAB HEMETOLOGY METHOD 12/10/2024 11:22 AM EST [facility] Blood Venous blood specimen / Unknown Venipuncture / Unknown 12/10/2024 7:30 AM EST 12/10/2024 10:55 AM EST us Benjamin Kim MD LAB BLOOD ORDERABLES Final Resul t [facility] [address] [place] [address], documented in this encounter Visit Diagnoses Diagnosis Essential (primary) hypertension Unspecified essential hypertension documented in this encounter Care Teams Python Consultant Relationship Specialty Start Date End Date Tara Paniagua RN [address] [phone] PCP - General 07/24/22 documented as of this encounter
--- OUTSIDE RECORDS SUMMARY | 2025-09-20 09:25 | XMS_ITS | Encounter Summary ---
Author Organization [facility] Address [address] [place] [address] Care Team Providers Care Corporate Job Titles Name Role Phone Tara Paniagua RN Primary Care Provider [phone] Encounter Details Date Type Department Care Team (Late st Contact Info) Description 12/28/2024 Lab Requisition [facility] - Main Lab [address] [place] [address] Benjamin Kim MD 38 [facility] [address] [place], [address] Heart failure, unspecified (CMS/HCC V24, CMS/HCC [...] Info) Description 09/29/2025 9:45 AM EST Treatment [facility] 175 [facility] [address] [place] [phone] Alejandro Jose PTA 10/03/2025 1:00 PM EST Treatment [facility] [address] [address] Alejandro Jose, MELTER OPERATOR 10/06/2025 9:45 AM EST Treatment [facility] [address] [address] Alejandro Jose, MELTER OPERATOR 10/11/2025 11:00 AM EST Treatment [address] [address] Viktoriya Zaman, PT 10/13/2025 11:00 AM EST Treatment [address] [address] Viktoriya Zaman, PT 10/18/2025 10:45 AM EST Treatment [address] [address] Viktoriya Zaman, PT documented as of this encounter Procedures Procedure Name Priority Date/Time Associated Diagnosis Comments COMPLETE BLOOD COUNT Routine 12/29/2024 7:42 AM EST Heart failure, unspecified (CMS/HCC) BASIC METABOLIC PANEL Routine 12/29/2024 7:42 AM EST Heart failure, unspecified (CMS/HCC) documented in this encounter Results * (ABNORMAL) Basic metabolic panel (12/29/2024 7:42 AM EST) [facility] Signature Sodium 143 133 - 145 mmol/L LAB CHEMISTRY METHOD 12/29/2024 3:20 PM [facility] Potassium 4.2 3.5 - 5.5 mmol/L LAB CHEMISTRY METHOD 12/29/2024 3:20 PM [facility] Chloride 107 96 - 110 mmol/L LAB CHEMISTRY METHOD 12/29/2024 3:20 PM [facility] LAB CO2 30 21 - 32 mmol/L LAB CHEMISTRY METHOD 12/29/2024 3:20 PM [facility] Anion Gap 6 3 - 11 LAB CHEMISTRY METHOD 12/29/2024 3:20 PM [facility] Glucose 114(H) 70 - 100 mg/dL LAB CHEMISTRY METHOD 12/29/2024 3:20 PM [facility] BUN 37(H) 5 - 25 mg/dL LAB CHEMISTRY METHOD 12/29/2024 3:20 PM [facility] Creatinine 1.03 0.50 - 1.10 mg/dL LAB CHEMISTRY METHOD 12/29/2024 3:20 PM [facility] eGFR 66 >=60 mL/min/1. 73m2 LAB CHEMISTRY METHOD 12/29/2024 3:20 PM [facility] Comment:Calculation based on the Chronic Kidney Disease Epidemiology Collaboration (CKD-EPI) equation refit without adjustment for race. BUN/Creatinine Ratio 35.9 LAB CHEMISTRY METHOD 12/29/2024 3:20 PM [facility] Calcium 9.7 8.5 - 10.5 mg/dL LAB CHEMISTRY METHOD 12/29/2024 3:20 PM [facility] Blood Venous blood specimen / Unknown Venipuncture / Unknown 12/29/2024 7:42 AM EST 12/29/2024 11:02 AM EST us Benjamin Kim MD LAB BLOOD ORDERABLES Final Resul t [facility] [address] [place] [address], * (ABNORMAL) Complete blood count (12/29/2024 7:42 AM EST) WBC 5.8 4.8 - 10.8 K/mcL LAB HEMETOLOGY METHOD 12/29/2024 11:32 AM [facility] RBC 3.90 3.80 - 4.80 M/mcL LAB HEMETOLOGY METHOD 12/29/2024 11:32 AM [facility] Hemoglobin 11.2(L) 11.5 - 16.0 g/dL LAB HEMETOLOGY METHOD 12/29/2024 11:32 AM [facility] Hematocrit 36.0 35.0 - 47.0 % LAB HEMETOLOGY METHOD 12/29/2024 11:32 AM [facility] MCV 91.8 79.0 - 98.0 FL LAB HEMETOLOGY METHOD 12/29/2024 11:32 AM [facility] MCH 28.6 27.0 - 32.0 pcg LAB HEMETOLOGY METHOD 12/29/2024 11:32 AM [facility] MCHC 31.1(L) 32.0 - 37.0 g/dL LAB HEMETOLOGY METHOD 12/29/2024 11:32 AM [facility] RDW 14.1 11.0 - 15.0 % LAB HEMETOLOGY METHOD 12/29/2024 11:32 AM [facility] Platelets 282 130 - 400 K/mcL LAB HEMETOLOGY METHOD 12/29/2024 11:32 AM [facility] MPV 10.1 7.0 - 11.0 FL LAB HEMETOLOGY METHOD 12/29/2024 11:32 AM [facility] NRBC 0.0 <1.0 % LAB HEMETOLOGY METHOD 12/29/2024 11:32 AM [facility] NRBC Absolute 0.00 <0.10 K/mcL LAB HEMETOLOGY METHOD 12/29/2024 11:32 AM [facility] Blood Venous blood specimen / Unknown Venipuncture / Unknown 12/29/2024 7:42 AM EST 12/29/2024 11:02 AM EST us Benjamin Kim MD LAB BLOOD ORDERABLES Final Resul t [facility] [address] [place] [address], documented in this encounter Visit Diagnoses Diagnosis Heart failure, unspecified (CMS/HCC V24, CMS/HCC V28) Heart failure, unspecified documented in this encounter Care Teams Corporate Job Titles Relationship Specialty Start Date End Date Tara Paniagua RN [address] [place] [phone] PCP - General 07/24/22 documented as of this encounter
--- OUTSIDE RECORDS SUMMARY | 2025-09-20 09:25 | XMS_ITS | Encounter Summary ---
Author Organization [employer] Address 75 [facility] 7t [place] [address] Care Team Providers Care Supervisor Component Assembler Name Role Phone Hilda Butt MD Primary Care Provider [phone] Reason for Visit * Reason Onset Date Comments Med Refill 04/22/2024 Encounter Details Date Type Department Care Team ([facility] Contact Info) Description 04/22/2024 Refill [facility] MEDICINE [address] [place], [place] [phone] Hilda Butt MD [address] [place], [place] [phone] Social History Tobacco Use Types Packs/Day Years [...] as of this encounter Care Teams Supervisor Component Assembler Relationship Specialty Start Date End Date Hilda Butt MD [address] [place] [address] PCP - General Family Medicine 06/20/22 Wilfrido 04/08/25 documented as of this encounter
--- OUTSIDE RECORDS SUMMARY | 2025-09-20 09:25 | XMS_ITS | Encounter Summary ---
Author Organization [employer] Address [address] [facility] [address] [place] [address] Care Team Providers Care Electrician Master Name Role Phone Hilda Butt MD Primary Care Provider [phone] Reason for Visit * Reason Onset Date Comments Med Refill 08/20/2024 Encounter Details Date Type Department Care Team ([facility] Contact Info) Description 08/20/2024 Refill [facility] [address] [place], [place] [phone] Hilda Butt MD [address] [place] [address] Social History Tobacco Use Types Packs/Day Years [...] documented as of this encounter Care Teams Electrician Master Relationship Specialty Start Date End Date Hilda Butt MD [address] [place] [address] PCP - General Family Medicine 06/20/22 Wilfrido 04/08/25 documented as of this encounter
--- OUTSIDE RECORDS SUMMARY | 2025-09-20 09:25 | XMS_ITS | Clinical Summary ---
Author Organization [facility] Address [address] [place] [address] Care Team Providers Care Counselor At Law Name Role Phone Hilda Butt MD Primary Care Provider + Char Juarez MD Unavailable [phone] Allergies No known active allergies Medications lidocaine [...] place to sleep or slept in a mcc (including now)? No 01/17/2023 Comments Unknown Sex [...] Discontinued 01/15/2023 Insurance MEDICAID OUT OF STATE [facility] MEDICARE PART A & B MISC MGD MEDICARE OUT OF NETWORK CLARIBEL SUAZO [facility] Advance Directives * Full Code (Latest Code Status on File) Date Activated Date Inactivated Comments 01/16/2023 4:08 AM Question Answer Comments Decision Thoroughly Discussed with: Patient Care Teams Counselor At Law Relationship Specialty Start Date End Date Hilda Butt MD [address] [place] [address] PCP - General General Medicine 01/16/23 Char Juarez MD [address] [place] [address] 01/16/23
--- OUTSIDE RECORDS SUMMARY | 2025-09-20 09:25 | XMS_ITS | Data Portability ---
Author Organization [employer] [facility] Address [address] [place] [address] Care Team Providers Care Agricultural Economics Professor Name Role Phone HIM CCA OTHER Assessment Encounter Date Assessment Date Assessment LastModified by Organization Details LastModified Time 10/26/2023 10/26/2023 I provided real -time medical direction via phone for this encounter, and was available for additional phone based assistance as needed. I have reviewed and agree with the Assessment and Plan as documented by the Sumo Wrestler. Patient given the opportunity to ask questions. [...] Assessment and Plan as documented by the Sumo Wrestler. Patient given the opportunity to ask questions. [...] of any new or worsening serious symptoms [place] [id number] Not available 12/12/2023 21:18:10 Plan of Treatment Reminders Order Date Submit Date Provider Last Modified By Organization Details Last Modified Time Details Appointments None recorded. Lab rapid SARS CoV 2 Ag, QL IA, respiratory specimen 2022 023 [facility], [address] [place] [address], [id number] 3 17:51:19 Referral None recorded. Procedures None recorded. Surgeries None recorded. Imaging electrocard iogram [address], [phone] 4 17:16:38 Medication Orders prednisone 20 mg tablet 2023 024 [facility] Not available 4 14:59:40 prednisone 20 mg tablet 2023 024 [facility] Not available 4 14:59:40 doxycycline hyclate 100 mg tablet 2023 024 [facility], [address] [place] [address], [id number], 4 14:00:23 doxycycline hyclate 100 mg tablet 2023 024 [facility], [address] [place] [address], [id number], 4 14:59:40 Patient TargetsNo targets recorded. Patient [...] ve Not Available Main - Inst [facility] [address] [place] [address], [id number] 10/26/2023 17:48:34 11/02/19 24 11/02/2023 elect jet [email or web address] No observ ation record ed. [email or web address] Main - Inst[facility] [address] [place] [address], [id number] 11/02/2023 17:37:03 Result Notes None recorded. Medical [...] Available Not Available No t Available omega 9-neg-vep-fis h oil 60 mg-90 mg-500 mg capsule [...] rate Heart rate Body height Oxygen saturation Body temperature Systolic And Diastolic Provider Name and Address Organization Details Last Updated DateTime 4 59705.7 2 g 16 /min 107 /min 149.86 cm 99 % 99.3 [degF] 127/75 mm[Hg] Not Available [facility] - production 4 14:43:50 Date Recorded Oxygen saturation Respiratory rate Body height Body temperature Heart rate Body weight Systolic And Diastolic Provider Name and Address Organization Details Last Updated DateTime 4 96 % 18 /min 149.86 cm 99.7 [degF] 95 /min 84080.7 2 g 149/85 mm[Hg] Not Available [facility] - production 4 21:15:31 Date Recorded Respiratory rate Oxygen saturation Body weight Heart rate Body temperature Body temperature Systolic And Diastolic Systolic And Diastolic Provider Name and Address Organization Details Last Updated DateTime 4 16 /min 97 % 91677.7 2 g 88 /min 100.6 [degF] 99.3 [degF] 110/70 mm[Hg] 94/70 mm[Hg] Not Available [facility] - production 4 17:31:32 Date Recorded Respiratory rate Body height Oxygen saturation Heart rate Body weight Body temperature Systolic And Diastolic Provider Name and Address Organization Details Last Updated DateTime 3 16 /min 149.86 cm 98 % 90 /min 50333.7 2 g 98.6 [degF] 155/80 mm[Hg] Not [...] ICD10 Code Diagnosis IMO Codes Diagnosis Note [id number] Chandrika Harvey MD Main - [address] [phone] 10/26/2023 17:48:07 10/28/2023 12:39:36 Respiratory tract congestion and cough 479818798 R05.9 [id number] NIKIA AMATO MD [facility] - [address] [phone] 11/02/2023 14:43:48 11/03/2023 12:13:44 Acute exacerbation of chronic obstructive pulmonary disease 361956698 J44.1 Evaluation in the field was performed by my clothing designer colleague, as noted above, I provided real-time [...] concerns. Chandrika Harvey MD Main - [facility] [address] [place] [phone] 12/12/2023 21:15:30 12/13/2023 12:40:12 Chronic low back pain [id number] M54.50 [id number] Jorge Luis Gates MD Main - [facility] [address] [place] [phone] 07/02/2024 17:31:28 07/05/2024 22:19:44 Hypotensive episode 99099979 I95.9 As noted, we were called to see this patient regarding concerns of hypotensio n. Evaluation in the field was performed by my clothing designer colleague, as noted above, I provided real-time direction and supervisio n for this visit. She had gone to urgent care earlier in the day for symptoms of COPD and was given Augmentin. She had an episode of low blood pressure for which we were dispatched . On the clothing designer examinatio n, she had a normal physical [...] [employer] Member ID Guarantor Name 07/02/2024 1 [facility] - DOS ON OR AFTER 2023 - DUAL ELIGIBLE - [facility] OPTIONS AND ONE CARE (MEDICARE REPLACEMENT/ADV ANTAGE - HMO) Renita Haddad [id number] Renita Haddad Notes Date Note Type Note Provider Name and Address Organization Details Recorded Time 10/26/2023 text/html [facility] Nurse Triage Notes (Demian Hernandez): Chief Complaints: URI Allergies: Unknown Comments: Member reports feeling unwell x1 day - Congestion with body aches - Denies cough/fever - Home COVID test was positive - Hedy SYLVESTER ................... ................... ................... ................... ................... ................... ................... ........ Sumo Wrestler Note From Sunil Schaefer: Pt reports runny [...] ................... ................... ................... ........ Disposition: Fulfilled Chandrika Harevy MD [address] [facility],[address], [place], [phone], [employer] [facility] [employer] 10/26/2023 17:51:42 11/02/2023 text/html ROS as noted in the HPI [facility] Nurse Triage Notes (Demian Hernandez): Reason For Request: Pt states last friday mbr tested for COVID-19 10/26/24. Mbr states retesting yesterday at home with NEGATIVE result but was still experiencing tiredness + fatigue Took albuterol treatment today and still experiencing cough, wheezing, weakness, and chest as if someone is sitting on it>elevated heart rate. Chief Complaints: Cough, Weakness/Lethargy, URI Allergies: Unknown Comments: Tip Printer verified the pt. s address and phone [...] ................... ................... ................... ................... ................... ................... ........ Sumo Wrestler Note From Sunil Schaefer: Pt tested positive for covid last Friday and is still experiencing sx despite retesting negative. Sx include dry cough, chest tightness, weakness and mild SOB. Pt is alert, NAD. VSS. Afebrile. Non focal neuro exam. Normal gait. Lungs CTA. Benign ABD exam. No LE edema. Rapid covid and flu negative. ECG uploaded. [facility] contacted and pt treated with doxycycline 100 mg and prednisone 40 mg. Pt instructed to seek emergent medical care for new or worsening sx, which are reviewed with her. ................... ................... ................... ................... ................... ................... ................... ........ Disposition: Patt AMATO MD [address] [place] [address],[address], [place], [phone], [employer] 11/02/2023 17:21:37 12/12/2023 text/html HPI: PMH: Left bundle branch block, Vertebral artery dissection. Call to Renita Brandon, reports having body aches x 1 weeks. Per pt no JOSE GUADALUPE sx, fever or urinary sx. Per pt pain is from the waist down. Pt has been using Motrin PRN for pain. Pt states has difficulty with walking. Pt advised of disposition, agrees to [facility] for exam since no appt in office and Holiday on Friday. ................... ................... ................... ................... ................... ................... ................... ........ [facility] Nurse Triage Notes (Anum Stone): Comments: HPI reviewed. No further information needed to process visit. ................... ................... ................... ................... ................... ................... ................... ........ Sumo Wrestler Note From Katt Alexis: Sent to a [...] but pt [facility]-evaluation/possi ble Toradol injection. Pt advised to call 911 if condition persists/worsens. Red flags discussed. Pt has no further questions. ................... ................... ................... ................... ................... ................... ................... ........ Disposition: Fulfilled Chandrika Harvey MD [address] [place] [address],[address], [place], [phone], [facility] - [employer] 12/12/2023 21:18:21 07/02/2024 text/html CRC Nurse Triage [...] ................... ................... ................... ................... ................... ................... ........ Sumo Wrestler Note From Rojas Fisher: Pt co hypertension [...] Disposition: Fulfilled Jorge Luis Gates MD [address] [facility],[address], [place], [phone], PETER ANNE 07/02/2024 21:57:09 OBGyn Episode No OBEpisode recorded.
--- OUTSIDE RECORDS SUMMARY | 2025-09-20 09:25 | XMS_ITS | Encounter Summary ---
Author Organization [employer] Address [address] [facility] [address] [place] [address] Care Team Providers Care Salesperson [employer] And Glassware Name Role Phone Hilda Butt MD Primary Care Provider [phone] Reason for Visit * Reason Onset Date Comments Med Refill 01/22/2024 Encounter Details Date Type Department Care Team ([facility] st Contact Info) Description 01/22/2024 Refill [facility] MEDICINE [address] [place], [place] [phone] Hilda Butt MD [address] [place], [place] [phone] Social History Tobacco Use Types Packs/Day Years [...] documented as of this encounter Care Teams Salesperson [employer] And Glassware Relationship Specialty Start Date End Date Hilda Butt MD [address] [place] [id number] PCP - General Family Medicine 06/20/22 Ave[place] 04/08/25 documented as of this encounter
--- OUTSIDE RECORDS SUMMARY | 2025-09-20 09:25 | XMS_ITS | Encounter Summary ---
Author Organization [employer] Address [address] [facility] [address] [place] [address] Care Team Providers Care Animal Health Technician Name Role Phone Hilda Butt MD Primary Care Provider [phone] Reason for Visit * Reason Comments Med Refill Encounter Details Date Type Department Care Team ([facility] st Contact Info) Description 11/16/2024 Refill [facility] MEDICINE [address] [place], [place] [phone] Hilda Butt MD [address] [place], [place] [phone] Vitamin D deficiency Social History Tobacco Use [...] documented as of this encounter Care Teams Animal Health Technician Relationship Specialty Start Date End Date Hilda Butt MD [address] [place] [address] PCP - General Family Medicine 06/20/22 Wilfrido 04/08/25 documented as of this encounter
--- OUTSIDE RECORDS SUMMARY | 2025-09-20 09:25 | XMS_ITS | Encounter Summary ---
Author Organization [employer] Address [address] [facility] 7[address] [place] [address] Care Team Providers Care Motion Picture Equipment Machinist Name Role Phone Hilda Butt MD Primary Care Provider [phone] Reason for Visit * Reason Onset Date Comments Med Refill 04/22/2024 Encounter Details Date Type Department Care Team ([facility] Contact Info) Description 04/22/2024 Refill [facility] MEDICINE [address] [place], [place] [phone] Hilda Butt MD [address] [place], [place] [phone] Neck pain Social History Tobacco Use Types [...] documented as of this encounter Care Teams Motion Picture Equipment Machinist Relationship Specialty Start Date End Date Hilda Butt MD [address] [place] [address] PCP - General Family Medicine 06/20/22 Wilfrido 04/08/25 documented as of this encounter
--- OUTSIDE RECORDS SUMMARY | 2025-09-20 09:25 | XMS_ITS | Clinical Summary ---
Author Organization [email or web address] Address [address] [facility] 7[address] [place] [address] Care Team Providers Care Construction Recruiter Name Role Phone Hilda Butt MD Primary Care Provider [phone] Allergies Active Allergy Reactions Criticality Noted Date [...] MORNING 100 g 3 05/17/20 24 Active Emollient (DermaPhor) ointmentIndicat ions:Itchy skin of anus and genitals APPLY TO AFFECTED AREA(S) OF DRY SKIN NEEDED (BULK) 396 g 3 07/28/20 24 Active liver oil-zinc oxide (Desitin) 40 [...] (BULK) 15 g 1 12/08/19 25 Active aspirin (Aspirin Low Dose) 81 MG EC tablet TAKE ONE TABLET BY MOUTH EVERY MORNING ^1R1 30 tablet 11 04/08/20 25 Active ferrous sulfate 325 (65 Fe) MG tablet Take 1 tablet by mouth with breakfast. Active fluticasone (Flonase) 50 MCG/ACT nasal sprayIndication s:Recurrent acute serous otitis media of right ear SHAKE LIQUID AND USE 1 SPRAY IN EACH NOSTRIL ONCE DAILY (BULK) 16 g 5 05/11/20 25 Active furosemide (Lasix) 20 MG tablet TAKE ONE TABLET BY MOUTH EVERY DAY ^1R1 30 tablet 5 05/11/20 25 Active meclizine (Antivert) 12.5 MG tablet TAKE ONE TABLET BY MOUTH EVERY 8 HOURS NEEDED FOR DIZZINESS (VIAL) 60 tablet 5 05/11/20 25 Active pantoprazole (ProtoNix) 40 MG EC tablet TAKE ONE TABLET BY MOUTH EVERY DAY ^1R1 30 tablet 5 05/11/20 25 Active tiZANidine (Zanaflex) 2 MG tablet TAKE ONE TABLET BY MOUTH EVERY 8 HOURS NEEDED FOR SPASMS OR SPASM PAIN (VIAL) 30 tablet 5 05/11/20 25 Active traZODone (Desyrel) 100 MG tablet TAKE ONE TABLET BY MOUTH EVERY DAY ^1R4 30 tablet 5 05/11/20 25 Active metoprolol succinate XL (Toprol XL) 25 MG 24 hr tablet Take 1 tablet (25 mg) by mouth Once per day. Do not crush or chew. 90 tablet 3 05/13/20 25 2025 Active albuterol 108 (90 Base) MCG/ACT inhalerIndicati ons:Chronic obstructive pulmonary disease with acute exacerbation (CMS/HCC) ([facility]) INHALE ONE PUFF BY MOUTH EVERY 6 HOURS NEEDED FOR SHORTNESS OF BREATH OR COUGH (BULK) 6.7 g 6 06/14/20 25 Active sertraline (Zoloft) 50 MG tablet TAKE ONE TABLET BY MOUTH EVERY DAY ^1R1 30 tablet 11 06/14/20 25 Active atorvastatin (Lipitor) 80 MG tablet TAKE ONE TABLET BY MOUTH EVERY MORNING ^1R1 90 tablet 3 06/24/20 25 Active metoprolol tartrate (Lopressor) 25 MG tablet 06/01/20 25 Active fexofenadine (Lexy) 180 MG tablet Take 1 tablet (180 mg) by mouth Once per day. 90 tablet 3 07/18/20 25 2024 Active ipratropium-alb uterol (Duo-Neb) 0.5-2.5 mg/3 mL nebulizer solution Take 3 mL by nebulization in the morning, at noon, and at bedtime. 180 mL 3 07/18/20 25 Active budesonide-form oterol (Symbicort) 80-4.5 MCG/ACT inhaler Inhale 2 puffs in the morning and at bedtime. Rinse mouth with water after use to reduce aftertaste and incidence of candidiasis. Do not swallow. 1 each 07/18/20 25 2025 Active Umeclidinium [place] (Incruse Ellipta) 62.5 MCG/ACT aerosol powder Inhale 1 Act (62.5 mcg) Once per day. 1 each 07/18/20 25 Active cholecalciferol VITAMIN D (Vitamin D-3) 50 MCG (2000 UT) capsuleIndicati ons:Vitamin D deficiency TAKE ONE CAPSULE BY MOUTH EVERY MORNING ^1R1 30 capsule 5 08/01/20 25 Active gabapentin (Neurontin) 100 MG capsule TAKE 2 CAPSULES BY MOUTH THREE TIMES DAILY 180 capsule 1 08/15/20 25 Active ibuprofen 400 MG tablet TAKE ONE TABLET BY MOUTH THREE TIMES A DAY (VIAL) 90 tablet 08/17/20 25 Active montelukast (Singulair) 10 MG tablet TAKE ONE TABLET BY MOUTH EVERY EVENING AT BEDTIME ^1R4 30 tablet 11 08/17/20 25 Active Ascorbic Acid (vitamin C) 250 MG tablet TAKE ONE TABLET BY MOUTH EACH MORNING WITH IRON ^1R1 30 tablet 11 08/17/20 25 Active zolpidem (Ambien) 5 MG tablet TAKE ONE TABLET BY MOUTH EVERY EVENING AT BEDTIME NEEDED FOR SLEEP FOR UP TO 5 DAYS (VIAL) 5 tablet 09/15/20 25 Active zolpidem (Ambien) 5 MG tablet TAKE ONE TABLET BY MOUTH AT BEDTIME NEEDED FOR SLEEP FOR UP TO 5 DAYS (VIAL) 5 tablet 08/17/20 25 2024 Discontinued Active Problems Problem Noted Date [...] Plan (11/19/2023 11:17 AM EST): Referred to [facility] Urticarial rash 10/21/2023 Assessment & Plan (10/21/2023 [...] Patient with mixed incontinence s/p surgery in 2019 ? For hygiene purposes and to decrease [...] and results to Dr Ramirez[facility] regarding her sensation of pain and buzzing in the ears and head and whether it is related to history of vertebral artery dissection Assessment & Plan (02/24/2024 8:17 AM EDT): Unclear exactly what happened with neurologist Dr Rodrigues at [facility], she claims she was told she could not be seen at their practice and [facility] - recommend CT scan to evaluate dissection [...] & Plan (11/03/2024 8:20 AM EST): Had WORK COUNSELOR-D placed by Dr Chen at [facility] 07.24. Dizziness and SOB had improved [...] & Plan (06/11/2024 8:46 AM EDT): Had WORK COUNSELOR-D placed by Dr Chen at [facility] 9. Dizziness and SOB had improved immediately after placement, then worse again after COVID Supposed to undergo 24-32 weeks of cardiac rehab, went to 4 and then authorization I replaced the order today for ongoing cardiac rehabilitation, pt needs this to get stronger and more active safely Assessment & Plan (11/19/2023 11:21 AM EST): Had WORK COUNSELOR-D placed by Dr Chen at [facility] 07.24.23 Dizziness and SOB had improved immediately after placement, then worse again after COVID Assessment & Plan (07/07/2023 9:11 AM EDT): Having WORK COUNSELOR-D placed by Dr Chen at [facility] 9.28.23 Will evaluate SOB and other symptoms after that Assessment & Plan (11/13/2022 7:48 AM EST): EF 35% Followed by cardiology, Shannan Pinon at [facility] Carotid artery disease 11/08/2022 Allergic conjunctivitis 09/28/2022 Atherosclerosis of aorta 09/28/2022 Atherosclerosis of right carotid artery 09/28/20 22 Bipolar II disorder ([facility]) 09/28/2022 Assessment & Plan (06/11/2024 8:49 AM EDT): Had been on Seroquel and then Depakote, discontinued both due to concerns about side effects psychofarm followup last 02/2022 Strong anxiety component currently with partner anxiety Will try SSRI for anxiety and speak with pychofarm and then patient about restarting mood stabilizer, Seroquel or [place] Assessment & Plan (06/12/2023 10:05 AM EDT): [...] 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 In between being hospitalized, intubated, and in rehab, these inhalers seem to have been lost from her med list Will restart them today, except for Advair in advance of repeat pulmonology followup Will see if she can tolerate PFTs to better stage her COPD Followup via phone/inSilicat message if coughing not imporved within a week of restarting inhalers Assessment & Plan (07/07/2023 9:09 AM EDT): On Advair and Incrusa quit smoking 5 years ago DEREJE adelaiden pulm referral to optimize mgmt Resolved Problems Problem Noted Date Diagnosed Date Resolved Date Stenosis of both internal carotid arteries 01/23/2024 04/19/2025 Assessment & Plan (11/03/2024 8:18 AM EST): Followed by cards and vascular for this 12/2023 study 50-79% stenosis yeny, CTA 05/19 increased to 80-99% R side Will have R endarterectomy 11/22/24 Letter given for increased PACKING CHECKER hours in post-op period ER precautions Assessment [...] EST): Referred for colon cancer screening [facility]ines [facility] Gastroesophageal reflux dise ase without esophagitis 07/07/2023 05/09/2025 Assessment & Plan (07/07/2023 9:11 AM EDT): Cont Pantoprazole 40mg now once a day Class 1 obesity with serious comorbidity and body mass index (BMI) of 33.0 to 33.9 in adult 07/03/2017 05/12/2025 Assessment & Plan (11/13/2022 7:46 AM EST): Diet efforts Encounters Date Type Department Care Team Description 09/15/[address] [facility] [address] [place] [address] Hilda Butt MD recall 09/14/[address] [facility] [address] [place] [address] Hilda Butt MD 08/24/[address] [facility] [address] [place] [address] Hilda Butt MD Durable Medical Equipment 08/22/[address] [facility] [address] [place] [address] Hilda Butt MD Med Refill 08/16/[address] [facility] [address] [place] [address] Hilda Butt MD 08/15/[address] [facility] [address] [place] [address] Hilda Butt MD 08/03/2025 Telephone [facility] [address] [place] [address] Hilda Butt MD Durable Medical Equipment (DME Request: Nebulizer) 08/01/[address] [facility] [address] [place] [address] Hilda Butt MD Med Refill 08/01/[address] [facility] [address] [place] [address] Hilda Butt MD Vitamin D deficiency 07/26/2025 Orders Only [facility] [address] [place] [phone] Hilda Butt MD 07/20/[address] [facility] [address] [place] [phone] Hilda Butt MD 07/18/2025 2:30 PM EDT Telemedicine [facility] [address] [place] [address] Hilda Butt MD Mild chronic obstructive pulmonary disease (CMS/HCC) (Primary Dx); COPD exacerbation (CMS/HCC) 07/18/2025 Travel 07/15/[address] [facility] [address] [place] [address] Hilda Butt MD 07/12/[address] [facility] [address] [place] [address] Hilda Butt MD 07/08/2025 Patient Outreach [facility] [address] [place] [phone] Hilda Butt MD Pre-visit Planning ([facility] screening completed on 04/19/2025) 07/06/[address] [facility] [address] [place] [address] Hilda Butt MD 06/24/2025 3:15 PM EDT Office Visit [facility] [place] [address] Hilda Butt MD Cough, unspecified type 06/24/2025 Travel 06/23/[address] [facility] [address] [place] [address] Hilda Butt MD 06/22/[address] [facility] [address] [facility] [place] [address] Hilda Butt MD 06/21/[address] [facility] [place] [address] Hilda Butt MD 06/20/[address] [facility] [place] [facility] [place] [address] Hilda Butt MD Nurse Triage from Last [...] Influenza, seasonal, injecta ble, preservative free 07/19/2024,07/24/2016 [employer] SARS-CoV-2 Vaccination 01/10/2021 Pfizer Covid-19 Vaccine 12+ [...] 1970 Sigmoidoscopy 1972 Alcohol/Substance Use Screening 1984 RSV Patients and Patients Aged 60 years or older (1 - Risk 50-74 years 1-dose series) 2022 COVID-19 Vaccine ( season) 2025 07/19/2024, 11/08/2022, [...] Tdap) 01/20/2034 01/21/2024, 12/07/2013 HIV Screening Completed 05/09/2022, 11/30/2020 Hepatitis C Screening Completed 05/09/2022, 021 Zoster Vaccines Completed 09/23/2022, 2022 Pneumococcal Vaccine: 50+ Years Completed 11/17/2023, 11/17/2023, 10/17/2021 Cervical Cancer Screening Discontinued HPV/Cotest Discontinued 02/20/2024 Pap Smear Discontinued 02/20/2024 Hepatitis A Vaccines Completed 06/23/2024, 06/23/2024, 11/17/2023, Additional history exists Hepatitis B Vaccines Completed [...] 025 3:11 PM EDT) No Daria Cardoso, Holly Procedures Procedure Name [...] EDT Narrative 07/26/2025 6:44 PM EDT [facility] [address] [place] [address] Mammography Report Signed Patient: Renita Brandon MR#: [id number] 4 : 1970 Acct:[id number] Age/Sex: 55 / F ADM Date: 07/26/25 Loc: MAMMO Attending Dr: Hilda Butt MD Ordering Physician: Hilda Butt Results: 1Negative Date of Service: 07/26/25 Follow Up: 1 Year From Orig ina Mammogram Procedure(s): MM tomosynthesis diagnostic BI Accession Number(s): [id number] cc: Hilda Butt Reason For Exam: HX [...] 07/26/25 1841 DD/ 1430 TD/TT: 07/26/25 1454 Health Information Provider: Procedure Note Donotuseinterpreter, Image - 07/26/2025 Guillermo [facility] [address] [place], [place] [address] Mammography Report Signed Patient: Renita Brandon#: [id number] 4 : 1970Acct:[id number] Age/Sex: 55 / FADM Date: 07/26/25 Loc: DANIELLEO Attending Dr: Hilda Butt MD Ordering Physician: Sunil Buttults: 1Negative Date of Service: 07/26/25Follow Up: 1 Year From Orig inal Mammogram Procedure(s): MM tomosynthesis diagnostic BI Accession Number(s): [id number] cc: Hilda Butt Reason For Exam: HX [...] their next mammogram. Electronically signed by: Roberto Jeol MD 07/26/2025 06:41 PM EDT Dictated By: Roberto Joel MD Signed By: <Electronically signed by Roberto Joel MD in OV> 07/26/25 1841 DD/ 1430 TD/TT: 07/26/25 1454 Health Information Provider: Hilda Butt MD IMG BI PROCEDURES Final Result * POCT Rapid Covid-19 BinaxNOW (06/24/2025 3:30 PM EDT) Rapid COVID Ag Negative QC Media Lot # [id number] Lot# Expiration Date 72,526 Swab 06/24/2025 3:30 PM EDT Hilda Butt MD POINT OF CARE TEST ENTER/EDIT ORDERABLES Final Result * HPV mRNA E6/E7 w/Reflex to HPV Genotypes 16, 18/45 (02/20/2024 12:12 PM EDT) HPV nRNA E6/E7 Not Detected Not Detected [facility] Comment:Methodology: Transcr iption-Mediated AmplificationThis assay detects E6/E7 viral messenger RNA (mRNA) from 14high-risk HPV types (16,18,31,33,35,39,45,51,52,56,58,59,66,68).Cervical sources are required for HPV testing.If a vaginal source from a patient who has had atotal hysterectomy with removal of cervix wassubmitted, please contact the testing laboratoryfor alternative testing options.For additional information, please refer tohttp://education.PLAXD/faq/XMF611d2(This link if provided for information/educational purposes only.)THIS TEST WAS PERFORMED AT:[facility] [place] [id number] GARCIA MD HPV mRNA E6/E7 [facility] HPV 16 RNA [facility] HPV 18/45 RNA [facility] 02/20/2024 12:1 2 PM EDT 02/24/2024 7:30 AM EDT Hilda Butt MD LAB CYTOLOGY ORDERABLES Final Result [facility] [address] [place] [address] [phone] * Pap Smear (02/20/2024 12:12 PM EDT) 02/20/2024 12:1 2 PM EDT 02/24/2024 7:30 AM EDT Narrative [facility] - 03/13/2024 5:52 PM EDT ----- ------- Name: Renita Brandon Age/Sex: 53/F : 1970 Unit#: [id number] Attend Dr: Hilda Butt Re02/20/24 Status: [facility] REF Location: [facility] Disch: ----- ------- SPEC : [id number] RECD: 02/24/24 STATUS: LISA DELORES NUM: [id number] ANNE: 02/20/24-2 [facility] DR: Hilda Butt ENTERED: 02/24/24 SP TYPE: Pap Smr DAVID MELVIN: ORDERED: Pap Smear Interpretation Satisfactory for evaluation. Negative for intraepithelial lesion or malignancy. HPV mRNA E6/E7: NOT DETECTED This assay detects E6/E7 viral messenger RNA (mRNA) from 14 high-risk HPV types (16, 18, 31, 33, 35, 39, 45, 51, 52, 56, 58, 59, 66, 68) HPV testing performed by [facility], [place], [place]. See reference laboratory portion of the EMR for entire report. Clinical Information LMP: Postmenopausal Previous PAP test: 2019, NILM Other surgery:Hysterectomy, cervical sparing in 2021 for fibroids Other history: No prior abnormal Material Received ThinPrep-Cervical ----- ------- Signed (signature on file) Amparo Martinez 03/13/24 1752 ----- ------- END OF REPORT Hilda Butt MD LAB CYTOLOGY ORDERABLES Final Result Performing Organization Address [facility] Co de Phone Number [facility] [address] [place] [phone] * HEPATITIS C AB W/REFL TO HCV RNA, QN, PCR (05/09/2022 4:02 PM EDT) Pathologist [facility] [place] HEPATITIS C ANTIBODY NON-REACT KRISTIN NON-REACT KRISTIN [facility] INDEX 0.08 <1.00 [facility] Comment: HCV antibody was non-reactive. There is no laboratory evidence of HCV infection. In most cases, no further action is required. However, if recent HCV exposure is suspected, a test for HCV RNA (test code 90475) is suggested. For additional information please refer to http://education.PLAXD/faq/YCI16i3 (This link is being provided for informational/ educational purposes only.) 05/09/2022 4:02 PM EDT Tara LAFLEUR HISTORICAL/NON ORDERABLE LABS Final Result Performing Organization Address City/[facility] Co de Phone Number [facility] [address] [place] [address], * HIV 1/2 ANTIGEN/ANTIBODY,FOURTH GENERATION W/RFL (05/09/2022 4:02 PM EDT) Pathologist [facility] [place] HIV-1/2 ANTIGEN AND ANTIBODIES, 4TH GENERATION W/ REFLEX NON-REACT KRISTIN NON-REACT KRISTIN [facility] Comment: HIV-1 antigen and HIV-1/HIV-2 [...] purpose. For additional information please refer to http://IPM [place].PLAXD/faq/RDO279 (This link is being provided for informational/ educational purposes only.) The performance of this assay has not been clinically validated in patients less than 2 years old. 05/09/2022 4:02 PM EDT Taar Paniagua [facility] LAB BLOOD ORDERABLES Final Res ult [facility] [address] * (ABNORMAL) LIPID PANEL, STANDARD (03/29/2022 [...] LDL-C. Kirk NEWSOME et al. RUTH. 2013;310(19): 1408-1047 (http://education.Intelligent Apps (mytaxi).hoohbe/faq/ICS096) Non-HDL Cholesterol 166(H) <130 mg/dL (calc) [facility] Comment: For patients with diabetes plus 1 major ASCVD risk factor, treating to a non-HDL-C goal of <100 mg/dL (LDL-C of <70 mg/dL) is considered a therapeutic option. Triglycerides 203(H) <150 mg/dL [facility] Comment: If a non-fasting specimen was collected, consider repeat triglyceride testing on a fasting specimen if clinically indicated. Dunia et al. J. of Clin. Lipidol. 2015;9:129-169. 03/29/2022 3:50 PM EDT us Tara Paniagua [facility] BLOOD ORDERABLES Final Res ult [facility] [address] from Last 3 Months or Most Recently Relevant to Health Maintenance Insurance [facility] < 65 [place] [id number] Care Teams Construction Recruiter Relationship Specialty Start Date End Date Hilda Butt MD [address] [place] [address] PCP - General Family Medicine 06/20/22 Aveunice 04/08/25
--- OUTSIDE RECORDS SUMMARY | 2025-09-20 09:25 | XMS_ITS | Encounter Summary ---
Author Organization [employer] Address [address] [facility] 7t [place] [address] Care Team Providers Care Behavioral Psychologist Name Role Phone Hilda Butt MD Primary Care Provider [phone] Reason for Visit * Reason Onset Date Comments Med Refill 11/19/2024 Encounter Details Date Type Department Care Team ([facility] st Contact Info) Description 11/19/2024 Refill [facility] [address] [place], [place] [phone] Hilda Butt MD [address] [place], [place] [phone] Chronic obstructive pulmonary disease with acute exacerbation [...] documented as of this encounter Care Teams Behavioral Psychologist Relationship Specialty Start Date End Date Hilda Butt MD [address] [place] [address] PCP - General Family Medicine 06/20/22 Aveanna 04/08/25 documented as of this encounter
--- OUTSIDE RECORDS SUMMARY | 2025-09-20 09:25 | XMS_ITS | Encounter Summary ---
Author Organization [employer] Address [address] [facility] [address]t [place] [address] Care Team Providers Care Assignment Manager Name Role Phone Hilda Butt MD Primary Care Provider [phone] Reason for Visit * Reason Comments Med Refill Encounter Details Date Type Department Care Team ([facility] st Contact Info) Description 06/21/2025 Refill [facility] [address] [place], [place] [phone] Hilda Butt MD [address] [place], [place] [phone] Social History Tobacco Use Types Packs/Day Years [...] documented as of this encounter Care Teams Assignment Manager Relationship Specialty Start Date End Date Hilda Butt MD [address] [place] [address] PCP - General Family Medicine 06/20/22 Stareashelly 04/08/25 documented as of this encounter
--- OUTSIDE RECORDS SUMMARY | 2025-09-20 09:25 | XMS_ITS | Encounter Summary ---
Author Organization [employer] Address [address] [facility] 7t [place] [address] Care Team Providers Care Contract Sheltered Workshop Supervisor Name Role Phone Hilda Butt MD Primary Care Provider [phone] Reason for Visit * Reason Comments Med Refill Encounter Details Date Type Department Care Team ([facility] st Contact Info) Description 09/14/2025 Refill [facility] [address] [place], [place] [phone] Hilda Butt MD [address] [place], [place] [phone] Social History Tobacco Use Types Packs/Day Years [...] documented as of this encounter Care Teams Contract Sheltered Workshop Supervisor Relationship Specialty Start Date End Date Hilda Butt MD [address] [place] [address] PCP - General Family Medicine 06/20/22 Stareashelly 04/08/25 documented as of this encounter
--- OUTSIDE RECORDS SUMMARY | 2025-09-20 09:25 | XMS_ITS | Encounter Summary ---
Author Organization [facility] Address [address] [place] [address] Care Team Providers Care Commercial Truck Driver Name Role Phone Tara Paniagua RN Primary Care Provider [phone] Encounter Details Date Type Department Care Team (Late st Contact Info) Description 02/08/2025 Lab Requisition [facility] Main Lab [address] [place] [address] Benjamin Kim MD 38 [facility] [address] [place], [address] Heart failure, unspecified (CMS/HCC V24, CMS/HCC [...] Info) Description 09/29/2025 9:45 AM EST Treatment [facility] 175 [facility] 350 [place] [id number] Alejandro Jose PTA 10/03/2025 1:00 PM EST Treatment [facility] [address] [address] Alejandro Jose, TRACING LATHE SET UP OPERATOR 10/06/2025 9:45 AM EST Treatment [facility] [address] [address] Alejandro Jose, TRACING LATHE SET UP OPERATOR 10/11/2025 11:00 AM EST Treatment [facility] [address] [address] Viktoriya Zaman, PT 10/13/2025 11:00 AM EST Treatment [address] [address] Viktoriya Zaman, PT 10/18/2025 10:45 AM EST Treatment [address] [address] Viktoriya Zaman, PT documented as of this [...] mmol/L LAB CHEMISTRY METHOD 02/09/2025 12:40 PM [facility] Potassium 3.8 3.5 - 5.5 mmol/L LAB CHEMISTRY METHOD 02/09/2025 12:40 PM [facility] Chloride 104 96 - 110 mmol/L LAB CHEMISTRY METHOD 02/09/2025 12:40 PM [facility] CO2 28 21 - 32 mmol/L LAB CHEMISTRY METHOD 02/09/2025 12:40 PM EDT [facility] Anion Gap 7 3 - 11 LAB CHEMISTRY METHOD 02/09/2025 12:40 PM EDT [facility] Glucose 93 70 - 100 mg/dL LAB CHEMISTRY METHOD 02/09/2025 12:40 PM EDT [facility] BUN 17 5 - 25 mg/dL LAB CHEMISTRY METHOD 02/09/2025 12:40 PM EDT [facility] Creatinine 0.54 0.50 - 1.10 mg/dL LAB CHEMISTRY METHOD 02/09/2025 12:40 PM EDT [facility] eGFR 111 >=60 mL/min/1. 73m2 LAB CHEMISTRY METHOD 02/09/2025 12:40 PM EDT [facility] Comment:Calculation based on the Chronic Kidney Disease Epidemiology Collaboration (CKD-EPI) equation refit without adjustment for race. BUN/Creatinine Ratio 31.5 LAB CHEMISTRY METHOD 02/09/2025 12:40 PM EDT [facility] Calcium 9.6 8.5 - 10.5 mg/dL LAB CHEMISTRY METHOD 02/09/2025 12:40 PM [facility] Blood Venous blood specimen / Unknown Venipuncture / Unknown 02/09/2025 7:58 AM EDT 02/09/2025 11:12 AM EDT us Benjamin Kim MD LAB BLOOD ORDERABLES Final Resul t [facility] [address] [place] [address], * (ABNORMAL) Complete blood count (02/09/2025 7:58 AM EDT) WBC 5.9 4.8 - 10.8 K/mcL LAB HEMETOLOGY METHOD 02/09/2025 11:27 AM EDT [facility] RBC 3.80 3.80 - 4.80 M/mcL LAB HEMETOLOGY METHOD 02/09/2025 11:27 AM [facility] Hemoglobin 10.9(L) 11.5 - 16.0 g/dL LAB HEMETOLOGY METHOD 02/09/2025 11:27 AM [facility] Hematocrit 34.0(L) 35.0 - 47.0 % LAB HEMETOLOGY METHOD 02/09/2025 11:27 AM [facility] MCV 88.5 79.0 - 98.0 FL LAB HEMETOLOGY METHOD 02/09/2025 11:27 AM [facility] MCH 28.4 27.0 - 32.0 pcg LAB HEMETOLOGY METHOD 02/09/2025 11:27 AM [facility] MCHC 32.1 32.0 - 37.0 g/dL LAB HEMETOLOGY METHOD 02/09/2025 11:27 AM [facility] RDW 13.6 11.0 - 15.0 % LAB HEMETOLOGY METHOD 02/09/2025 11:27 AM [facility] Platelets 299 130 - 400 K/mcL LAB HEMETOLOGY METHOD 02/09/2025 11:27 AM [facility] MPV 9.9 7.0 - 11.0 FL LAB HEMETOLOGY METHOD 02/09/2025 11:27 AM [facility] NRBC 0.0 <1.0 % LAB HEMETOLOGY METHOD 02/09/2025 11:27 AM [facility] NRBC Absolute 0.00 <0.10 K/mcL LAB HEMETOLOGY METHOD 02/09/2025 11:27 AM [facility] Blood Venous blood specimen / Unknown Venipuncture / Unknown 02/09/2025 7:58 AM EDT 02/09/2025 11:12 AM EDT Benjamin Kim MD LAB BLOOD ORDERABLES Final Resul t 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 [address] [place] [address], documented in this encounter Visit Diagnoses Diagnosis Heart failure, unspecified (CMS/HCC V24, CMS/HCC V28) Heart failure, unspecified documented in this encounter Care Teams Commercial Truck Driver Relationship Specialty Start Date End Date Tara Paniagua RN [address] [place] [phone] PCP - General 07/24/22 documented as of this encounter
--- OUTSIDE RECORDS SUMMARY | 2025-09-20 09:25 | XMS_ITS | Encounter Summary ---
Author Organization [employer] Address [address] [facility] 7t [place] [address] Care Team Providers Care Dust Brush Assembler Name Role Phone Hilda Butt MD Primary Care Provider [phone] Reason for Visit * Reason Onset Date Comments Med Refill 11/03/2024 Encounter Details Date Type Department Care Team ([facility] st Contact Info) Description 11/03/2024 Refill [facility] MEDICINE [address] [place], [place] [phone] Hilda Butt MD [address] [place], [place] [phone] Social History Tobacco Use Types Packs/Day Years [...] documented as of this encounter Care Teams Dust Brush Assembler Relationship Specialty Start Date End Date Hilda Butt MD [address] [place] [address] PCP - General Family Medicine 06/20/22 Wilfrido 04/08/25 documented as of this encounter
--- OUTSIDE RECORDS SUMMARY | 2025-09-20 09:25 | XMS_ITS | Encounter Summary ---
Author Organization [employer] Address [address] [facility] 7t [place] [address] Care Team Providers Care Audiovisual Librarian Name Role Phone Hilda Butt MD Primary Care Provider [phone] Reason for Visit * Reason Onset Date Comments recall 09/15/2025 Encounter Details Date Type Department Care Team ([facility] Contact Info) Description 09/15/2025 Telephone [facility] MEDICINE [address] [place], [place] [phone] Hilda Butt MD 230 [place], [place] [phone] recall Social History Tobacco Use Types Packs/Day Years [...] encounter Miscellaneous Notes * Telephone Encounter - Agata Pimentel [place] - 09/15/2025 2:05 PM EST Telephone call to patient to schedule a recall appointment. No answer, Left voicemail to return call to clinic.. Recall letter sent. Visit type: Follow up Appointment notes: follow up Month due: September With: Daquan Please schedule appointment above if patient returns call documented in this encounter Plan of Treatment [...] documented as of this encounter Care Teams Audiovisual Librarian Relationship Specialty Start Date End Date Hilda Butt MD 230 [place] [address] PCP - General Family Medicine 06/20/22 Aveanna 04/08/25 documented as of this encounter
--- OUTSIDE RECORDS SUMMARY | 2025-09-20 09:25 | XMS_ITS | Encounter Summary ---
Author Organization [employer] Address [address] [facility] [address]t [place] [address] Care Team Providers Care Agricultural Purchasing Agent Name Role Phone Hilda Butt MD Primary Care Provider [phone] Reason for Visit * Reason Onset Date Comments Med Refill 11/18/2024 Encounter Details Date Type Department Care Team ([facility] st Contact Info) Description 11/18/2024 Refill [facility] MED & PEDS [address] [place], [place] [phone] Hilda Butt MD 230 [place] [address] Social History Tobacco Use Types Packs/Day Years [...] as of this encounter Care Teams Agricultural Purchasing Agent Relationship Specialty Start Date End Date Hilda Butt MD [address] [place] [address] PCP - General Family Medicine 06/20/22 Wilfrido 04/08/25 documented as of this encounter
--- OUTSIDE RECORDS SUMMARY | 2025-09-20 09:26 | XMS_ITS | Encounter Summary ---
Author Organization [employer] Address [address] [facility] 7t [place] [address] Care Team Providers Care Weatherization Director Name Role Phone Hilda Butt MD Primary Care Provider [phone] Reason for Visit * Reason Onset Date Comments Med Life Line 08/06/2023 Encounter Details Date Type Department Care Team ([facility] Contact Info) Description 08/06/2023 Telephone [facility] MEDICINE [address] [place], [place] [phone] Hilda Butt MD 230 [place], [place] [phone] Med Life Line Social History Tobacco Use [...] PATIENT TODAY WILL SEND RX TO [facility]ACHINE OPERATOR [facility]. [facility] DOES NOT ACCEPT [facility]. * Telephone Encounter - Ashley Sutton - 08/06/2023 1:10 PM EDT Tc from pt requesting status on paperwork for Med Life line machine due to her medical conditions. Task on 07/31/2023 Please contact pt at [phone] Luxembourgish Speaker documented in this encounter Plan of Treatment Not on file documented as of this encounter Visit Diagnoses Not on filedocumented in this encounter Additional Health Concerns Assessment Noted Time PHQ-9 Depression Total Score: 6 06/12/20 23 9:18 AM EDT documented as of this encounter Care Teams Weatherization Director Relationship Specialty Start Date End Date Hilda Butt MD 230 [place] [address] PCP - General Family Medicine 06/20/22 Wilfrido 04/08/25 documented as of this encounter
--- OUTSIDE RECORDS SUMMARY | 2025-09-20 09:26 | XMS_ITS | Encounter Summary ---
Author Organization [employer] Address [address] [facility] 7t [place] [address] Care Team Providers Care Consulting Group Analyst Name Role Phone Hilda Butt MD Primary Care Provider [phone] Reason for Visit * Reason Comments Med Refill Encounter Details Date Type Department Care Team ([facility] st Contact Info) Description 06/30/2024 Refill [facility] MEDICINE 230 [place], [place] [phone] Hilda Butt MD 230 [place], [place] [phone] Lower extremity edema Social History Tobacco Use [...] as of this encounter Care Teams Consulting Group Analyst Relationship Specialty Start Date End Date Hilda Butt MD 230 [place] [address] PCP - General Family Medicine 06/20/22 Wilfrido 04/08/25 documented as of this encounter
--- OUTSIDE RECORDS SUMMARY | 2025-09-20 09:26 | XMS_ITS | Encounter Summary ---
Author Organization [employer] Address 75 [facility] 7t [place] [address] Care Team Providers Care Failure Analysis Technician Name Role Phone Hilda Butt MD Primary Care Provider [phone] Reason for Visit * Reason Onset Date Comments Med Refill 06/24/2024 Encounter Details Date Type Department Care Team ([facility] st Contact Info) Description 06/24/2024 Refill [facility] MEDICINE 230 [place], [place] [phone] Hilda Butt MD 230 [place], [place] [phone] Social History Tobacco Use Types Packs/Day Years [...] documented as of this encounter Care Teams Failure Analysis Technician Relationship Specialty Start Date End Date Hilda Butt MD 230 [place] [address] PCP - General Family Medicine 06/20/22 Wilfrido 04/08/25 documented as of this encounter
--- OUTSIDE RECORDS SUMMARY | 2025-09-20 09:26 | XMS_ITS | Encounter Summary ---
Author Organization [employer] Address [address] [facility] 7t [place] [address] Care Team Providers Care Tower Watchman Name Role Phone Hilda Butt MD Primary Care Provider [phone] Encounter Details Date Type Department Care Team ([facility] st Contact Info) Description 08/19/2023 Abstract [facility] MEDICINE 230 [place], [place] [phone] Hilda Butt MD [address] [place], [place] [phone] Social History Tobacco Use Types Packs/Day Years Used Date Smoking Tobacco: Former Cigarettes Smokeless Tobacco: Never Alcohol Use Standard Drinks/Week Comments Never 0 (1 standard drink = 0.6 oz pur e alcohol) Depression Answer Date Recorded Patient Health Questionnaire-9 Score 6 06/12/2023 Housing Stability Answer Date Recorded What is your housing situation today? I have jadonyran samson 08/13/[address] you [...] t he electric, gas, oil or water [employer] threatened to shut off services in your [...] documented as of this encounter Care Teams Tower Watchman Relationship Specialty Start Date End Date Hilda Butt MD [address] [place] [address] PCP - General Family Medicine 06/20/22 Stareashelly 04/08/25 documented as of this encounter
--- OUTSIDE RECORDS SUMMARY | 2025-09-20 09:26 | XMS_ITS | Encounter Summary ---
Author Organization [employer] Address [address] [facility] 7t [place] [address] Care Team Providers Care Contractor General Building Name Role Phone Hilda Butt MD Primary Care Provider [phone] Encounter Details Date Type Department Care Team ([facility] st Contact Info) Description 08/18/2023 Abstract [facility] MEDICINE 230 [place], [place] [phone] Hilda Butt MD 230 [place], [place] [phone] Social History Tobacco Use Types Packs/Day Years [...] t he electric, gas, oil or water [employer] threatened to shut off services in your [...] documented as of this encounter Care Teams Contractor General Building Relationship Specialty Start Date End Date Hilda Butt MD 230 [place] [address] PCP - General Family Medicine 06/20/22 Stareashelly 04/08/25 documented as of this encounter
--- OUTSIDE RECORDS SUMMARY | 2025-09-20 09:26 | XMS_ITS | Encounter Summary ---
Author Organization [employer] Address [address] [facility] 7t [place] [address] Care Team Providers Care Fur Blowing Machine Attendant Name Role Phone Hilda Butt MD Primary Care Provider [phone] Encounter Details Date Type Department Care Team ([facility] Contact Info) Description 05/11/2025 Telephone [facility] MEDICINE 230 [place], [place] [phone] Hilda Butt MD 230 [place], [place] [phone] Social History Tobacco Use Types Packs/Day Years [...] - 05/11/2025 4:35 PM EDT Tc from [facility] with [facility] calling to inform provider pt is being discharged from occupational therapy services. Adela stated pt is requesting outpatient referral. If any question [phone] documented in this encounter Plan of Treatment [...] as of this encounter Care Teams Fur Blowing Machine Attendant Relationship Specialty Start Date End Date Hilda Butt MD 230 [place] [address] PCP - General Family Medicine 06/20/22 Aveashelly 04/08/25 documented as of this encounter
--- OUTSIDE RECORDS SUMMARY | 2025-09-20 09:26 | XMS_ITS | Encounter Summary ---
Author Organization [employer] Address [address] [facility] 7t [place] [address] Care Team Providers Care Electronics Instructor Name Role Phone Hilda Butt MD Primary Care Provider [phone] Reason for Visit * Reason Comments Med Refill Encounter Details Date Type Department Care Team ([facility] st Contact Info) Description 07/15/2025 Refill [facility] MEDICINE 230 [place], [place] [phone] Hilda Butt MD [address] [place], [place] [phone] Social History Tobacco Use Types Packs/Day Years [...] as of this encounter Care Teams Electronics Instructor Relationship Specialty Start Date End Date Hilda Butt MD [address] [place] [address] PCP - General Family Medicine 06/20/22 Stareashelly 04/08/25 documented as of this encounter
--- OUTSIDE RECORDS SUMMARY | 2025-09-20 09:26 | XMS_ITS | Encounter Summary ---
Author Organization [employer] Address 75 [facility] 7t [place] [address] Care Team Providers Care Motorboat Mechanic Helper Name Role Phone Hilda Butt MD Primary Care Provider [phone] Reason for Visit * Reason Comments Med Refill Encounter Details Date Type Department Care Team ([facility] st Contact Info) Description 07/06/2025 Refill [facility] MEDICINE 230 [place], [place] [phone] Hilda Butt MD 230 [place], [place] [phone] Social History Tobacco Use Types Packs/Day Years [...] documented as of this encounter Care Teams Motorboat Mechanic Helper Relationship Specialty Start Date End Date Hilda Butt MD 230 [place] [address] PCP - General Family Medicine 06/20/22 Stareashelly 04/08/25 documented as of this encounter
--- OUTSIDE RECORDS SUMMARY | 2025-09-20 09:26 | XMS_ITS | Encounter Summary ---
Author Organization [employer] Address 75 [facility] 7t [place] [address] Care Team Providers Care Quality Inspector Name Role Phone Hilda Butt MD Primary Care Provider [phone] Reason for Visit * Reason Onset Date Comments Med Refill 12/04/2023 Encounter Details Date Type Department Care Team ([facility] st Contact Info) Description 12/04/2023 Refill [facility] MEDICINE 230 [place], [place] [phone] Hilda Butt MD 230 [place], [place] [phone] Itchy skin of anus and genitals Social [...] documented as of this encounter Care Teams Quality Inspector Relationship Specialty Start Date End Date Hilda Butt MD [address] [place] [address] PCP - General Family Medicine 06/20/22 Wilfrido 04/08/25 documented as of this encounter
--- OUTSIDE RECORDS SUMMARY | 2025-09-20 09:26 | XMS_ITS | Encounter Summary ---
Author Organization [employer] Address [address] [facility] 7t [place] [address] Care Team Providers Care Roll Mill Operator Name Role Phone Hilda Butt MD Primary Care Provider [phone] Reason for Visit * Reason Onset Date Comments Med Refill 10/16/2023 Encounter Details Date Type Department Care Team ([facility] Contact Info) Description 10/16/2023 Refill [facility] CH[facility] MED & PEDS [address] [place], [place] [phone] Hilda Butt MD 230 [place] [address] Social History Tobacco Use Types Packs/Day Years [...] documented as of this encounter Care Teams Roll Mill Operator Relationship Specialty Start Date End Date Hilda Butt MD 230 [place] [address] PCP - General Family Medicine 06/20/22 Stareashelly 04/08/25 documented as of this encounter
--- OUTSIDE RECORDS SUMMARY | 2025-09-20 09:26 | XMS_ITS | Encounter Summary ---
Author Organization [employer] Address [address] [facility] 7t [place] [address] Care Team Providers Care Lithographic Camera Operator Name Role Phone Hilda Butt MD Primary Care Provider [phone] Encounter Details Date Type Department Care Team ([facility] st Contact Info) Description 10/15/2022 Orders Only [facility] MED & PEDS [address] [place], [place] [phone] Apple Stringer LPN Social History Tobacco Use [...] on filedocumented in this encounter Care Teams Lithographic Camera Operator Relationship Specialty Start Date End Date Hilda Butt MD [address] [place] [address] PCP - General Family Medicine 06/20/22 Aveanna 04/08/25 documented as of this encounter
--- OUTSIDE RECORDS SUMMARY | 2025-09-20 09:26 | XMS_ITS | Encounter Summary ---
Author Organization [employer] Address [address] [facility] [address]t [place] [address] Care Team Providers Care Title Curative Specialist Name Role Phone Hilda Butt MD Primary Care Provider [phone] Reason for Visit * Reason Onset Date Comments Medication Question 11/19/2022 Encounter Details Date Type Department Care Team ([facility] Contact Info) Description 11/19/2022 Telephone [facility] MEDICINE 230 [place], [place] [phone] Hilda Butt MD 230 [place], [place] [phone] Medication Question Social History Tobacco Use Types [...] regarding nebulizer medication Please contact Marina at [phone] documented in this encounter Plan of Treatment Not on file documented as of this encounter Visit Diagnoses Not on filedocumented in this encounter Care Teams Title Curative Specialist Relationship Specialty Start Date End Date Hilda Butt MD [address] [place] [address] PCP - General Family Medicine 06/20/22 Stareashelly 04/08/25 documented as of this encounter
--- OUTSIDE RECORDS SUMMARY | 2025-09-20 09:26 | XMS_ITS | Encounter Summary ---
Author Organization [employer] Address [address] [facility] 7t [place] [address] Care Team Providers Care Progressive Care Nurse Name Role Phone Hilda Butt MD Primary Care Provider [phone] Reason for Visit * Reason Onset Date Comments Med Refill 12/03/2023 Encounter Details Date Type Department Care Team ([facility] st Contact Info) Description 12/03/2023 Refill [facility] MEDICINE 230 [place], [place] [phone] Hilda Butt MD 230 [place], [place] [phone] Social History Tobacco Use Types Packs/Day Years [...] documented as of this encounter Care Teams Progressive Care Nurse Relationship Specialty Start Date End Date Hilda Butt MD [address] [place] [address] PCP - General Family Medicine 06/20/22 Aveanna 04/08/25 documented as of this encounter
--- OUTSIDE RECORDS SUMMARY | 2025-09-20 09:26 | XMS_ITS | Encounter Summary ---
Author Organization [employer] Address [address] [facility] 7t [place] [address] Care Team Providers Care Supervisor Covering And Lining Name Role Phone Hilda Butt MD Primary Care Provider [phone] Encounter Details Date Type Department Care Team ([facility] st Contact Info) Description 10/31/2022 Orders Only [facility] MEDICINE 230 [place], [place] [phone] Hilda Butt MD 230 [place], [place] [phone] Blurry vision (Primary Dx) Social History Tobacco [...] documented in this encounter Care Teams Supervisor Covering And Lining Relationship Specialty Start Date End Date Hilda Butt MD 230 [place], [place] [phone] PCP - General Family Medicine 06/20/22 Aveanna 04/08/25 documented as of this encounter
--- OUTSIDE RECORDS SUMMARY | 2025-09-20 09:26 | XMS_ITS | Encounter Summary ---
Author Organization [employer] Address [address] [facility] 7[address] [place] [address] Care Team Providers Care Case Investigator Name Role Phone Hilda Butt MD Primary Care Provider [phone] Reason for Visit * Reason Comments Med Refill Encounter Details Date Type Department Care Team ([facility] st Contact Info) Description 07/28/2024 Refill [facility] MEDICINE 230 [place], [place] [phone] Hilda Butt MD 230 [place], [place] [phone] Social History Tobacco Use Types Packs/Day Years [...] documented as of this encounter Care Teams Case Investigator Relationship Specialty Start Date End Date Hilda Butt MD [address] [place] [address] PCP - General Family Medicine 06/20/22 Wilfrido 04/08/25 documented as of this encounter
--- OUTSIDE RECORDS SUMMARY | 2025-09-20 09:26 | XMS_ITS | Encounter Summary ---
Author Organization [employer] Address [address] [facility] [address] [place] [address] Care Team Providers Care Furnace Tapper Name Role Phone Hilda Butt MD Primary Care Provider [phone] Reason for Visit * Reason Comments Med Refill Encounter Details Date Type Department Care Team ([facility] st Contact Info) Description 04/15/2025 Refill [facility] MEDICINE 230 [place], [place] [phone] Hilda Butt MD 230 [place], [place] [phone] Recurrent acute serous otitis media of right [...] documented as of this encounter Care Teams Furnace Tapper Relationship Specialty Start Date End Date Hilda Butt MD 230 [place] [address] PCP - General Family Medicine 06/20/22 Aveashelly 04/08/25 documented as of this encounter
--- OUTSIDE RECORDS SUMMARY | 2025-09-20 09:26 | XMS_ITS | Encounter Summary ---
Author Organization [employer] Address 75 [facility] 7t [place] [address] Care Team Providers Care Physician Office Nurse Name Role Phone Hilda Butt MD Primary Care Provider [phone] Encounter Details Date Type Department Care Team ([facility] st Contact Info) Description 11/20/2023 Abstract [facility] MEDICINE [address] [place], [place] [phone] Hilda Butt MD 230 [place], [place] [phone] Social History Tobacco Use Types Packs/Day Years [...] as of this encounter Care Teams Physician Office Nurse Relationship Specialty Start Date End Date Hilda Butt MD 230 [place] [address] PCP - General Family Medicine 06/20/22 Stareashelly 04/08/25 documented as of this encounter
--- OUTSIDE RECORDS SUMMARY | 2025-09-20 09:26 | XMS_ITS | Encounter Summary ---
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) (HCC) Status post cerebrovascular accident Hilda Butt MD [address] [place] [address] Phone: tel: fax: [facility] Physical Therapy [address] [place] [address] Phone: tel: fax: Referral ID Status Reason Start Date Expiration Date V isits Requested Visits Authorized [id number] Closed Specialty Services Required 05/19/2025 05/19/2026 1 1 * Consultation (Routine) - Closed Specialty Diagnoses / Procedures Referred By Winter roa Referred To Contact Physical Therapy Diagnoses 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 [address] Phone: tel: fax: Referral ID Status Reason Start Date Expiration Date V isits Requested Visits Authorized [id number] Closed Specialty Services Required 05/19/2025 05/19/2026 1 1 Encounter Details Date Type Department Care Team (Late st Contact Info) Description 05/13/2025 Orders Only [facility] MEDICINE [address] [place] [address] Hilda Butt MD [address] [place] [address] Spastic hemiplegia of left nondominant side as [...] documented as of this encounter Care Teams Chinese Medicine Practitioner Relationship Specialty Start Date End Date Hilda Butt MD [address] [place] [address] PCP - General Family Medicine 06/20/22 Stareashelly 04/08/25 documented as of this encounter
--- OUTSIDE RECORDS SUMMARY | 2025-09-20 09:26 | XMS_ITS | Encounter Summary ---
Author Organization [employer] Address 75 [facility] 7t [place] [address] Care Team Providers Care Staff Development Coordinator Rn Name Role Phone Hilda Butt MD Primary Care Provider Reason for Visit * Reason Onset Date Comments Med Refill 10/16/2023 Encounter Details Date Type Department Care Team ([facility] Contact Info) Description 10/16/[address] [facility] 230 [place], [place] [phone] Anum Fox FNP Recurrent acute serous otitis [...] documented as of this encounter Care Teams Staff Development Coordinator Rn Relationship Specialty Start Date End Date Hilda Butt MD [address] [place] [address] PCP - General Family Medicine 06/20/22 Wilfrido 04/08/25 documented as of this encounter
--- OUTSIDE RECORDS SUMMARY | 2025-09-20 09:26 | XMS_ITS | Encounter Summary ---
Author Organization [employer] Address 75 [facility] 7t [place] [address] Care Team Providers Care Admission Liaison Name Role Phone Hilda Butt MD Primary Care Provider [phone] Reason for Visit * Reason Onset Date Comments Med Refill 12/03/2023 Encounter Details Date Type Department Care Team ([facility] st Contact Info) Description 12/03/2023 Refill [facility] MEDICINE 230 [place], [place] [phone] Hilda Butt MD 230 [place], [place] [phone] Low back pain at multiple sites Social [...] as of this encounter Care Teams Admission Liaison Relationship Specialty Start Date End Date Hilda Butt MD [address] [place] [address] PCP - General Family Medicine 06/20/22 Stareashelly 04/08/25 documented as of this encounter
--- OUTSIDE RECORDS SUMMARY | 2025-09-20 09:26 | XMS_ITS | Encounter Summary ---
Author Organization [employer] Address 75 [facility] 7t [place] [address] Care Team Providers Care Field Marketing Associate Name Role Phone Hilda Butt MD Primary Care Provider [phone] Reason for Visit * Reason Comments Med Refill Encounter Details Date Type Department Care Team ([facility] st Contact Info) Description 2024 Refill [facility] MEDICINE 230 [place], [place] [phone] Hilda Butt MD 230 [place], [place] [phone] Social History Tobacco Use Types Packs/Day Years [...] documented as of this encounter Care Teams Field Marketing Associate Relationship Specialty Start Date End Date Hilda Butt MD 230 [place] [address] PCP - General Family Medicine 06/20/22 Wilfrido 04/08/25 documented as of this encounter
--- OUTSIDE RECORDS SUMMARY | 2025-09-20 09:26 | XMS_ITS | Encounter Summary ---
Author Organization [employer] Address 75 [facility] 7t [place] [address] Care Team Providers Care Utilization Reviewer Name Role Phone Hilda Butt MD Primary Care Provider [phone] Reason for Visit * Reason Comments Med Refill Encounter Details Date Type Department Care Team ([facility] st Contact Info) Description 06/29/2024 Refill [facility] MEDICINE 230 [place], [place] [phone] Hilda Butt MD 230 [place], [place] [phone] Lower extremity edema Social History Tobacco Use [...] as of this encounter Care Teams Utilization Reviewer Relationship Specialty Start Date End Date Hilda Butt MD 230 [place] [address] PCP - General Family Medicine 06/20/22 Wilfrido 04/08/25 documented as of this encounter
--- OUTSIDE RECORDS SUMMARY | 2025-09-20 09:26 | XMS_ITS | Encounter Summary ---
Author Organization [employer] Address 75 [facility] 7t [place] [address] Care Team Providers Care Animal Nursery Worker Name Role Phone Hilda Butt MD Primary Care Provider [phone] Encounter Details Date Type Department Care Team ([facility] st Contact Info) Description 08/19/2023 Abstract [facility] MEDICINE 230 [place], [place] [phone] Hilda Butt MD 230 [place], [place] [phone] Social History Tobacco Use Types Packs/Day Years [...] t he electric, gas, oil or water [employer] threatened to shut off services in [...] as of this encounter Care Teams Animal Nursery Worker Relationship Specialty Start Date End Date Hilda Butt MD 230 [place] [address] PCP - General Family Medicine 06/20/22 Stareashelly 04/08/25 documented as of this encounter
--- OUTSIDE RECORDS SUMMARY | 2025-09-20 09:26 | XMS_ITS | Encounter Summary ---
Author Organization [employer] Address 75 [facility] 7t [place] [address] Care Team Providers Care Veneer Sorter Name Role Phone Hilda Butt MD Primary Care Provider [phone] Reason for Visit * Reason Onset Date Comments PA 12/25/2022 Encounter Details Date Type Department Care Team ([facility] Contact Info) Description 12/25/2022 Telephone [facility] MEDICINE 230 [place], [place] [phone] Hilda Butt MD 230 [place], [place] [phone] [place] Social History Tobacco Use Types Packs/Day [...] Lower back pain. Please contact pt at [phone] documented in this encounter Plan of Treatment Not on file documented as of this encounter Visit Diagnoses Not on filedocumented in this encounter Care Teams Veneer Sorter Relationship Specialty Start Date End Date Hilda Butt MD 230 [place] [address] PCP - General Family Medicine 06/20/22 Wilfrido 04/08/25 documented as of this encounter
--- OUTSIDE RECORDS SUMMARY | 2025-09-20 09:26 | XMS_ITS | Encounter Summary ---
Author Organization [employer] Address 75 [facility] 7t [place] [address] Care Team Providers Care Projection Camera Operator Name Role Phone Hilda Arshad MD Primary Care Provider [phone] Reason for Visit * Reason Onset Date Comments medical supplies 08/08/2023 Encounter Details Date Type Department Care Team ([facility] Contact Info) Description 08/08/2023 Telephone [facility] MEDICINE 230 [place], [place] [phone] Hilda Arshad MD 230 [place], [place] [phone] medical supplies Social History Tobacco Use Types [...] AND [facility] WILL BE SENT TO [facility] BECAUSE [facility] DOES NOT ACCEPT [facility]. * Telephone Encounter - Adelaida Gastelum - [...] documented as of this encounter Care Teams Projection Camera Operator Relationship Specialty Start Date End Date Hilda Arshad MD [address] [place] [address] PCP - General Family Medicine 06/20/22 Stareashelly 04/08/25 documented as of this encounter
--- OUTSIDE RECORDS SUMMARY | 2025-09-20 09:26 | XMS_ITS | Encounter Summary ---
Author Organization [employer] Address [address] [facility] 7t [place] [address] Care Team Providers Care Dairy Equipment Specialist Name Role Phone Hilda Butt MD Primary Care Provider [phone] Encounter Details Date Type Department Care Team ([facility] st Contact Info) Description 08/19/2023 Abstract [facility] MEDICINE 230 [place], [place] [phone] Hilda Butt MD 230 [place], [place] [phone] Social History Tobacco Use Types Packs/Day Years [...] t he electric, gas, oil or water [employer] threatened to shut off services in your [...] documented as of this encounter Care Teams Dairy Equipment Specialist Relationship Specialty Start Date End Date Hilda Butt MD [address] [place] [address] PCP - General Family Medicine 06/20/22 Stareashelly 04/08/25 documented as of this encounter
--- OUTSIDE RECORDS SUMMARY | 2025-09-20 09:26 | XMS_ITS | Encounter Summary ---
Author Organization [employer] Address 75 [facility] 7t [place] [address] Care Team Providers Care Gas Appliance Servicer Name Role Phone Hilda Butt MD Primary Care Provider [phone] Reason for Visit * Reason Onset Date Comments Med Refill 08/22/2025 Encounter Details Date Type Department Care Team ([facility] Contact Info) Description 08/22/2025 Telephone [facility] MEDICINE 230 [place], [place] [phone] Hilda Butt MD 230 [place], [place] [phone] Med Refill Social History Tobacco Use Types [...] 08/22/2025 8:23 AM EDT Script sent to [employer] on 06/14/25 with 5 refills. * Telephone Encounter - Lulu Hatfield - 08/22/2025 8:18 AM EDT TC from pt requesting medication refill. Medications needing refill : - albuterol 108 (90 Base) MCG/ACT inhaler To be sent to: - [facility] - [place], [place] - [address] [place] [address] documented in this encounter Plan of Treatment [...] as of this encounter Care Teams Gas Appliance Servicer Relationship Specialty Start Date End Date Hilda Butt MD 230 [place] [address] PCP - General Family Medicine 06/20/22 Stareashelly 04/08/25 documented as of this encounter
--- OUTSIDE RECORDS SUMMARY | 2025-09-20 09:26 | XMS_ITS | Encounter Summary ---
Author Organization [employer] Address 75 [facility] 7t [place] [address] Care Team Providers Care Athletic Equipment Manager Name Role Phone Hilda Butt MD Primary Care Provider [phone] Encounter Details Date Type Department Care Team ([facility] st Contact Info) Description 10/30/2023 Telephone [facility] MEDICINE 230 [place], [place] [phone] Janine Mccarthy, RN 230 [place], [place] [phone] Social History Tobacco Use Types Packs/Day Years [...] documented as of this encounter Care Teams Athletic Equipment Manager Relationship Specialty Start Date End Date Hilda Butt MD [address] [place] [address] PCP - General Family Medicine 06/20/22 Stareashelly 04/08/25 documented as of this encounter
--- OUTSIDE RECORDS SUMMARY | 2025-09-20 09:26 | XMS_ITS | Encounter Summary ---
Author Organization [employer] Address 75 [facility] 7t [place] [address] Care Team Providers Care Associate Theatre Professor Name Role Phone Hilda Butt MD Primary Care Provider [phone] Reason for Visit * Reason Comments Med Refill Encounter Details Date Type Department Care Team ([facility] st Contact Info) Description 11/22/2024 Refill [facility] MEDICINE 230 [place], [place] [phone] Hilda Butt MD 230 [place], [place] [phone] Social History Tobacco Use Types Packs/Day Years [...] as of this encounter Care Teams Associate Theatre Professor Relationship Specialty Start Date End Date Hilda Butt MD 230 [place] [address] PCP - General Family Medicine 06/20/22 Stareashelly 04/08/25 documented as of this encounter
--- OUTSIDE RECORDS SUMMARY | 2025-09-20 09:27 | XMS_ITS | Data Portability ---
Author Organization [facility], Main Office Address [address] [place] [address] [address] [place] [address] Care Team Providers Care Labor Relations Analyst Name Role Phone LINDA GOFF - 4TH [...] n 80 mg tablet 2024 025 [facility] #[id number], [address] [place], [place], [id number], 5 11:45:19 metoprolol tartrate 25 mg tablet 2024 025 [facility], [address] [place], [id number], 5 11:45:20 meclizine 12.5 mg tablet 2024 025 [place] [facility], [address] [place], [id number], 5 11:45:20 Ventolin HFA 90 mcg/actuati on aerosol inhaler 2024 025 [facility], [address] [place], [id number], 5 11:45:12 fluticasone propionate 50 mcg/actuati on nasal spray,suspe nsion 2024 025 [facility], [address] [place] [place], [id number], 5 11:45:17 montelukast 10 mg tablet 2024 025 [facility], [address] [place] [place], [id number], 5 11:45:14 sertraline 50 mg tablet 2024 025 [facility]20796, [address] [place], [id number], 5 11:45:15 trazodone 100 mg tablet 2024 025 [facility], [address] [place], [id number], 5 11:45:15 pantoprazol e 40 mg tablet,thomas yed release 2024 025 [facility], [address] [place] [place], [id number], 5 11:45:11 gabapentin 100 mg capsule 2024 025 [facility], [address] [place], [id number], 5 11:45:16 tizanidine 2 mg tablet 2024 025 [facility]075[facility], [address] [place] [place], [id number], 5 11:45:17 furosemide 20 mg tablet 2024 025 [facility] #40291, [address] [place], [id number], 5 11:45:15 Entresto 24 mg-26 mg tablet 2024 025 [facility] #65278, [address] [place], [id number], 5 11:45:11 spironolact one 25 mg tablet 2024 025 [facility] #32419, [address] [place], [id number], 5 11:45:18 Patient TargetsNo targets recorded. Patient InstructionsNo instructions recorded. Reason for Referral None Reported. Problems Name Problem SNOMED Code Status Onset Date Resolution Date Notes Provider Name and Address Organization Details Recorded Time Dysphagia 77973741 Active 2024 Jessica [place] NP [address], [address], [place], [address], [facility] 5 15:19:53 Left hemiplegia 154206854 Active 2024 Jessica [place] NP [address], [address], [place], [address], [facility] 5 15:20:52 Cerebrovascula r accident 189920852 Active 2024 Jessica [place] NP [address], [address], [place], [address], [facility] 5 15:20:58 Carotid artery stenosis 72569919 Active 2024 Jessica [place] NP [address], [address], [place], [address], [facility] 5 15:22:09 Congestive heart failure 68821029 Active 2024 Jessica [place] NP [address], [address], [place], [address], [facility] 5 15:22:17 Chronic obstructive pulmonary disease 86134248 Active 2024 Jessica [place] NP [address], [place], [address], [facility] 5 15:22:23 Automatic implantable cardiac defibrillator in situ 078364142 Active 2024 Jessica [place] NP [address], [address], [place], [address], [facility] 5 15:22:38 Bipolar disorder 04069216 Active 2024 Jessica [place] NP [address], [place], [address], [facility] 5 15:22:46 Hypoxia 931055872 Active 2024 Jessica [place] NP [address], [place], [address], [facility] 5 15:24:15 Hypertensive disorder 24561321 Active 2024 Jessica [place] NP [address], [place], [address], [facility] 5 15:24:34 Hyperlipidemia 13558118 Active 2024 Jessica [place] NP [address], [place], [address], [facility] 5 15:24:44 Anemia 977567257 Active 2024 Jessica [place] NP [address], [place], [address], [facility] 5 15:40:32 Gastroesophage al reflux disease 876648932 Active 2024 Jessica [place] NP [address], [place], [address], [facility] 5 15:45:51 Problem Notes None recorded. Medical Equipment None Reported. Allergies Allergen ID Allergen Name Allergen Category Reaction Reaction Severity Criticality Documentation Date Start Date Code Code System Note Provider Name and Address Organization Details Recorded Time 35506 lisinopri l medicatio n cough Not available low 12/09/20242020 58868 RxNorm Florina Nino MD [address], [address], [place], [address], [facility] [employer] 5 20:01:39 Medications Name Sig Start Date [...] rate Respiratory rate Body temperature Oxygen saturation Systolic And Diastolic Provider Name and Address Organization Details Last Updated DateTime 5 149.86 cm 29.5 kg/m2 09026.4 9 g 78 /min 20 /min 97 [degF] 98 % 137/92 mm[Hg] Jessica [place] NP [address], [facility] [address], [place], [address], [facility] 5 16:38:59 Date Recorded Body height Body weight Heart rate Respiratory rate Body temperature Oxygen saturation Systolic And Diastolic Provider Name and Address Organization Details Last Updated DateTime 5 149.86 cm 91030.4 9 g 71 /min 18 /min 97 [degF] 98 % 132/74 mm[Hg] Jessica [place] NP [address] [facility] [address], [place], [address], [facility] 5 09:59:49 Date Recorded Body height Body mass index (BMI) Body weight Heart rate Respiratory rate Body temperature Oxygen saturation Systolic And Diastolic Provider Name and Address Organization Details Last Updated DateTime 5 149.86 cm 29.5 kg/m2 06326.4 9 g 71 /min 18 /min 97 [degF] 98 % 132/74 mm[Hg] Jessica [place] NP [address] [facility] [address], [place], [address], [facility] 5 09:24:05 Date Recorded Body height Heart rate Respiratory rate Body temperature Oxygen saturation Systolic And Diastolic Provider Name and Address Organization Details Last Updated DateTime 5 149.86 cm 71 /min 18 /min 97 [degF] 98 % 132/74 mm[Hg] MARY SHARP NP [address], [facility] [address], [place], [address], [facility] 5 11:43:22 Date Recorded Body height Body weight Heart rate Respiratory rate Body temperature Oxygen saturation Systolic And Diastolic Provider Name and Address Organization Details Last Updated DateTime 5 149.86 cm 65187.6 7 g 71 /min 18 /min 97 [degF] 98 % 132/74 mm[Hg] Jessica [place] NP [address], [address], [place], [address], [email or web address] [facility] 5 09:48:35 Social History Question Answer Notes LastModified by Organizat ion Details LastModified Time Tobacco Smoking Status Former Smoker Jessica [place] NP [address], [address], [place], [address], [email or web address] [facility] 12/09/2024 15:31:49 Do You Have An Advance Directive? Yes Information not available 12/09/2024 What Is Your Code Status? Full Code No Dialysis Information not available 12/09/2024 Where Do You Live? Apartment Going To Be Moving To 1st Floor [address] D/c Information not available 02/22/2025 Legal Guardian? No Informati on not available 02/22/2025 Do You Have A Medical Power Of Atmospheric Drier Tender? Yes Information not available 02/22/2025 What Was [...] B, unspecified formulation 4 completed Rossi Yomi [facility], [facility] 12/09/2024 15:28:00 Hep B, unspecified formulation 4 completed [facility] 15:28:09 Hep B, unspecified formulation 4 completed Rossi Celaya [facility] 12/09/2024 15:28:17 Tdap 4 completed Rossi Celaya [facility] 12/09/2024 15:29:05 Tdap 4 completed Rossi Yomi [facility] 12/09/2024 15:29:14 Pneumococcal conjugate PCV 13 4 completed Rossi Celaya [facility] 12/09/2024 15:29:28 pneumococcal polysaccharide PPV23 1 completed Rossi Celaya [facility] 12/09/2024 15:29:45 influenza, unspecified formulation 3 completed Rossi Yomi [facility] 12/09/2024 15:30:08 influenza, unspecified formulation 4 completed Rossi Yomi [facility] 12/09/2024 15:30:14 Hep A, unspecified formulation 4 completed Rossi Celaya [facility] 12/09/2024 15:30:29 Hep A, unspecified formulation 4 completed Rossi Celaya [facility] 12/09/2024 15:30:37 SARS-COV-2 (COVID-19) vaccine, UNSPECIFIED 1 completed Rossi Celaya [facility] 12/09/2024 15:31:01 SARS-COV-2 (COVID-19) vaccine, UNSPECIFIED 2 completed Rossi Celaya [facility] 12/09/2024 15:31:08 SARS-COV-2 (COVID-19) vaccine, UNSPECIFIED 3 completed Rossi Celaya [facility] 12/09/2024 15:31:17 SARS-COV-2 (COVID-19) vaccine, UNSPECIFIED 4 completed Rossi Celaya [facility] 12/09/2024 15:31:25 zoster, unspecified formulation 2 completed Rossi [facility] 12/09/2024 15:31:41 zoster, unspecified formulation 2 completed Rossi [facility] 12/09/2024 15:31:51 Past Encounters Encounter ID Performer Location Encounter Start Date Encounter Closed Date Diagnosis/Indication Diagnosis SNOMED-CT Code Diagnosis ICD10 Code Diagnosis IMO Codes Diagnosis Note [id number] Jessica [place] NP [address] [address] 12/09/2024 15:03:43 12/10/2024 13:27:31 Carotid artery stenosis 66667986 I65.29 sp right carotid endarterec jaida, performed on 11/22/24. She suffered a right carotid dissection , hematoma, as well as a CVA, which left her with left sided hemiplegia and dysphagia now on tube feedsmonit or s/s of infectionv itals qd x 2 weeksbmp and cbc weekly x 3 weeks Cerebrovas cular accident 868568051 I63.9 sp right carotid endarterec jaida, performed on 11/22/24. She suffered a right carotid dissection , hematoma, as well as a CVA, which left her with left sided hemiplegia and dysphagia now on tube feedsPT OT eval and treatsuppo rtive careturn and position freqmonito r Left hemiplegia 92855282 8 G81.90 see above Dysphagia 06115237 R13.1 0 NPOmeds through g tubegoal:J evity 1.0 kcal 50cc/hr wtih 240 ml water flush q 8 hours*On return from the hospital all meds are listed as PO, however she is NPO and has [facility] Will leave for now and assess if some meds need to be changed if needed. Currently all meds changed to gtube here.dieti aleshia to followmoni tor Hypoxia 874267479 G47.34 Pt with intubation rt hypoxia now resolvedmo nitor for sequelae Congestive heart failure 65949433 I50.9 chffurosem rashad 20 mg po qdmonitor bmp and s/s of Chronic ob structive pulmonary disease 39454559 J44.9 hx montelukas t 10 mg po qhscetiriz ine 10 mg po qd prnalbuter ol inhaler 2 inh q 6 hrs prn sobmonitor Automatic implantable cardiac defibrillator in situ 785335926 Z95.810 has cad with cath in past with LBBB and states pacemaker and defibrilla tor in hxmonitor Hypertensive disorder 38 033343 I10 amiodarone 400 mg po bid x 7days, then 200 mg po qd for 21 days, then stopentres to 24-36 po bidmetopro lol succinate 50 mg po qdspirolac tone 25 mg po qdmonitor Anemia 654270430 D64.9 hx offerrous sulfate 325 mgpo qd with vit c qdmonitor cbc and for s/s of bleeding Hyperlipidemia 01613595 E78.5 asa 81 mg qdatorvast atin 80 mg qhsentrest o 24-36 po bidmonitor Bipolar disorder 7581799 4 F31.9 hx ofsertrali ne 50 mg qdmonitor [id number] Benjamin Kim MD [address] [address] 12/13/2024 08:52:27 12/14/2024 15:40:23 Unsteady when walking 92186066 R26.89 PT OT eval and treatto determine baseline Carotid ar jonas stenosis 14998983 I65.21 see HPIright carotid endarterec jaida last OctoberSuf fered carotid dissection and CVA with resultant left hemiplegia and dysphagia requiring patient to be NPO with g-tube placedlipi tor 80 mg qdasa 81 mg qdupdate surgery with concerns Cerebrovas cular accident 997074678 I63.031 resultant left hemiplegia and dysphagiaP T OT eval and treatmonit or for improvemen t in function Left hemiplegia 55545149 8 G81.04 see above Dysphagia 81264335 I69.3 91 currently NPOg-tube dependents peech and dietary to followcont inue tube feeds Hypoxia 372519168 G47.34 Pt with intubation rt hypoxia now resolvedmo nitor for sequelae Congestive heart failure 43080726 I50.22 lasix 20 mg qdentresto 24-26 mg bidmonitor respirator y and fluid status Chronic ob structive pulmonary disease 02038197 J41.1 carrying dxcontinue out patient medsmonito r respirator y status and albuterol utilizatio n Automatic implantable cardiac defibrillator in situ 775153820 Z95.810 currently maintained onamiodaro ne taper, hx LBBBknown cad continued on asa, statin, and beta yamini Hypertensive disorder 38 040807 I10 entresto 24-36 po bidmetopro lol 50 mg po qdlasix 20 mg qdspirolac tone 25 mg po qdmonitor bp and need to titrate Anemia 645617465 D50.8 monitor cbciron studies prncontinu e supplement s Bipolar disorder 5057421 4 F31.89 carrying dx added to PMHzoloft 50 mg qdmonitor sxpsych eval prn Coronary arteriosclerosis 76959715 I25.10 lipitor 80 mg qdasa 81 mg qdmetoprol ol 50 mg qdmonitor sx [id number] Jessica [place] NP [facility] [address] 12/16/2024 10:30:08 12/17/2024 16:22:16 Carotid artery stenosis 51442689 I65.29 sp right carotid endarterec jaida, performed on 11/22/24. She suffered a right carotid dissection , hematoma, as well as a CVA, which left her with left sided hemiplegia and dysphagia on tube feedscontm onitor s/s of infection, steri strips no offvitals qd x 2 weeksfu with surgery prnbmp and cbc weekly x 3 weeks Cerebrovas cular accident 290017860 I63.9 sp right carotid endarterec jaida, performed on 11/22/24.Sh ashley suffered a right carotid dissection , hematoma, as well as a CVA, which left her with left sided hemiplegia and dysphagia on tube feedsPT OT eval and treatsuppo rtive careturn and position freqassist jon with adlsmonito r Left hemiplegia 73399242 8 G81.94 see above Dysphagia 94415458 R13.1 0 NPOmeds through g tubecont g [...] to follow closelymon itor Congestive heart failure 63547249 I50.9 chffurosem rashad 20 mg po qdmonitor bmp and s/s of chf Hypertensive disorder 38 337672 I10 contamioda luanne 400 mg po bid x 7days, 200 mg po qd for 21 days, then stop for taperentre sto 24-36 po bidmetopro lol succinate 50 mg po qdspirolac tone 25 mg po qdmonitor Anemia 730695464 D64.9 hx offerrous sulfate 325 mg po qd with vit c qdmonitor cbc and for s/s of bleeding Bipolar disorder 9438242 4 F31.9 hx ofsertrali ne 50 mg qdmonitor Candidiasis of mouth 797 06271 B37.0 nystatin swish and spit x 10 daysenhanc ed teethbrush ing and oral caremouth swab with mouthwash at bedsidemon itor Chronic pain 70741419 G8 9.29 pt with pain to lower legs(pt states tyl does not work and doesn't want it)states she was on gabapentin and ibuprofen prior at home that worked welltyl prnibuprof en 400 mg gtube bidgabapen tin 100 mg tab gtube bidmonitor for relief and adjustment [id number] Jessica [place] NP [facility] [address] [address] 12/17/2024 16:03:43 12/21/2024 09:59:18 Bipolar disorder 83047299 F31.9 hx ofsertrali ne 50 mg qdmonitor Insomnia 638434477 G47.0 0 12/17 start melatonin 5 mg po qhspsych consult [id number] MARY SHARP NP [facility] [address] [address] 12/21/2024 11:17:22 12/23/2024 12:10:51 Insomnia 188489505 G47.00 Started melatonin 5 mg po qhs on 12/17 - not effective - increase to 10 mg q hsReferred to psychMonit or Bipolar disorder 3645719 4 F31.9 hx ofcontinue sertraline 50 mg qdCurrentl y with issues sleeping - melatonin added and referred to Psychmonit or Candidiasis of mouth 797 63912 B37.0 nystatin swish and spit x 10 days addedMaint ain oral care including brushing tonguemoni tor Chronic pain 71679022 G8 9.29 pt with pain to lower [...] relief and adjustment Carotid ar jonas stenosis 53558467 I65.29 sp right carotid endarterec jaida, performed on 11/22/24. She suffered a right carotid dissection , hematoma, as well as a CVA, which left her with left sided hemiplegia and dysphagia on tube feedscontm onitor s/s of infection, steri strips no offvitals qd x 2 weeksfu with surgery prnbmp and cbc weekly x 3 weeks Cerebrovas cular accident 171823742 I63.9 sp right carotid endarterec jaida, performed [...] assessment and pain mgmt.Monit or Left hemiplegia 16267293 8 G81.94 see above Dysphagia 72766415 R13.1 0 NPOmeds through g tubecont g tube feedings - currently on jevity 1.5 @ 50 cc/h x20 h per daydietici an followingS LP eval and tx as indicatedM onitor labs, weights, s/s aspiration . Congestive heart failure 04872356 I50.9 Continue:f urosemide 20 mg po qdentresto 24-36 po bidspirola ctone 25 mg po qdmonitor bmp and s/s of chf Hypertensive disorder 38 104869 I10 contentres to 24-36 po bidmetopro lol succinate 50 mg po qdspirolac tone 25 mg po qdlasix 20 mg qdmonitor Anemia 544284688 D64.9 hx offerrous sulfate 325 mg po qd with vit c qdmonitor cbc and for s/s of bleeding Automatic implantable cardiac defibrillator in situ 097249694 Z95.810 currently maintained onamiodaro ne taper, hx LBBBknown cad continued on asa, statin, and beta yamini [id number] Jessica [place] NP [facility] [address] [address] 12/23/2024 08:44:39 12/24/2024 14:25:29 Insomnia 599817506 G47.00 contmelato haydee 10 mg q hs, recently increasedR eferred to psychMonit orconsider trazodone if no improvemen t by next week Cerebrovas cular accident 993396178 I63.9 sp right carotid endarterec jaida, performed [...] assessment and pain mgmt.Monit or Left hemiplegia 88491769 8 G81.94 see above Candidiasis of mouth 797 26046 B37.0 nystatin swish and spit x 10 days total, improvingM aintain oral care including brushing tonguemoni tor Dysphagia 09003438 R13.1 0 NPOmeds through g tubecont g tube feedings - currently on jevity 1.5 @ 50 cc/h x20 h per daydietici an followingS LP eval and tx as indicatedM onitor labs, weights, s/s aspiration . Bipolar disorder 9431748 4 F31.9 hx ofcontinue sertraline 50 mg qdmelatoni n 10 mg po qhsreferre d to Psychmonit or Chronic pain 25209529 G8 9.29 pt denies pain this am Currently on:tyl 650 mg po tidibuprof en 400 mg gtube tidgabapen tin 100 mg tab gtube tidRefer to Dr. Flores for eval and tx.monitor for relief and adjustment Carotid ar jonas stenosis 46655155 I65.29 sp right carotid endarterec jaida, performed [...] reorder for next week Congestive heart failure 26781597 I50.9 Continue:f urosemide 20 mg po qdentresto 24-36 po bidspirola ctone 25 mg po qdmonitor bmp and s/s of chf Anemia 300563444 D64.9 hx offerrous sulfate 325 mg po qd with vit c qdmonitor cbc and for s/s of bleeding [id number] [facility] [place] [facility] [address] 12/29/2024 14:46:44 12/30/2024 16:28:34 Cerebrovascular accident 673713578 I63.9 sp right carotid endarterec jaida, performed [...] further assessment and pain mgmt.Monit or Insomnia 808073705 G47.0 0 contmelato haydee ineffectiv e and dc'dstarte d on trazodone 50 mg po qhs per psychRefer red to psychMonit or Left hemiplegia 54892882 8 G81.94 see above Dysphagia 76739053 R13.1 0 NPOmeds through g tubecont g tube feedings - currently on jevity 1.5 @ 50 cc/h x20 h per daydietici an followingS LP eval and tx as indicatedM onitor labs, weights, s/s aspiration . Bipolar disorder 6807028 4 F31.9 hx ofcontinue sertraline 50 mg qdmelatoni n 10 mg po qhstrazodo ne 50 mg po qhs for insomniare ferred to Psych[facility]it or Chronic pain 42332610 G8 9.29 pt denies pain todayCurre ntly on:tyl 650 mg po tidibuprof en 400 mg gtube tidgabapen tin 100 mg tab gtube tidRefer to Dr. Flores for eval and tx.monitor for relief and adjustment Carotid ar jonas stenosis 21810372 I65.29 sp right carotid endarterec jaida, performed [...] reorder for next week Congestive heart failure 83446401 I50.9 Continue:f urosemide 20 mg po qdentresto 24-36 po bidspirola ctone 25 mg po qdmonitor bmp and s/s of chf Anemia 054230520 D64.9 hx offerrous sulfate 325 mg po qd with vit c qdmonitor cbc and for s/s of bleeding Recurrent falls 23059023 2 R29.6 fall during transfer today on 12/29 without injuriesmo nitor for injuries/p ainsupport viv carebed rails in place for left sided weakness to help herself movemonito r closely with protocol [id number] Jessica [place], [employer] [facility] [address] [place] [address] 12/30/2024 13:16:29 01/04/2025 09:05:35 Insomnia 380868803 G47.00 seems to be helpingcon ttrazodone 50 mg po qhs per psychRefer red to psychMonit or Cerebrovas cular accident 799632508 I63.9 sp right carotid endarterec jaida, performed [...] assessment and pain mgmt.Monit or Left hemiplegia 69185462 8 G81.94 see above Dysphagia 13785613 R13.1 0 NPOmeds through g tubecont g tube feedings - currently on jevity 1.5 @ 50 cc/h x20 h per daydietici an followingS LP eval and tx as indicatedM onitor labs, weights, s/s aspiration . Bipolar disorder 2675089 4 F31.9 hx ofcontinue sertraline 50 mg qdtrazodon e 50 mg po qhs for insomniare ferred to Psych[facility]it or Chronic pain 97259408 G8 9.29 controlled Currently on:tyl 650 mg po tidibuprof en 400 mg gtube tidgabapen tin 100 mg tab gtube tidRefer to Dr. Flores for eval and tx.monitor for relief and adjustment Carotid ar jonas stenosis 99165064 I65.29 sp right carotid endarterec jaida, performed [...] just the baby asa Congestive heart failure 62022758 I50.9 Continue:f urosemide 20 mg po qdentresto 24-36 po bidspirola ctone 25 mg po qdmonitor bmp and s/s of chf Anemia 162485544 D64.9 stablehx offerrous sulfate 325 mg po qd with vit c qdmonitor cbc and for s/s of bleeding Candidiasis of mouth 797 54521 B37.0 3/ restart nystatin swish and spit x 10 days total, improving3 / start peridex mouthwash 15 ml apply to tongue throughout day with swab, provide in amMaintain oral care including brushing tonguemoni tor [id number] Jessica [place] NP [address] [address] 01/03/2025 08:35:31 01/04/2025 11:27:30 Candidiasis of mouth 44007172 B37.0 contnystat in swish and spit x 10 days total, improvingp eridex mouthwash 15 ml apply to tongue throughout day with swab, provide in amMaintain oral care including brushing tonguemoni tor Insomnia 516866015 G47.0 0 seems to be helping3/ 0 increase trazodone 50 mg to 75 mg po qhs per psychRefer red to psychMonit or Carotid ar jonas stenosis 60381926 I65.29 sp right carotid endarterec jaida, performed [...] just the baby asa Cerebrovas cular accident 048151508 I63.9 sp right carotid endarterec jaida, performed [...] assessment and pain mgmt.Monit or Left hemiplegia 05759247 8 G81.94 see above Dysphagia 20973408 R13.1 0 01/01 seen by speech and started on reg diet, puree, and honey consistenc ymeds through g tubecont g tube feedings - currently on jevity 1.5 @ 50 cc/h x20 h per daydietici an followingS LP eval and tx as indicatedM onitor labs, weights, s/s aspiration . Chronic pain 88132880 G8 9.29 controlled Currently on:tyl 650 mg po tidibuprof en 400 mg gtube tid3/10 increase gabapentin from 100 mg to 200 mg tube tid3/10 add muscle rub cream tid to left kne[place] get ekg in 2 weeks with hx of cardiac disease on amiodarone apap tidRefer to Dr. Flores for eval and tx.monitor for relief and adjustment [id number] Jessica [place] NP [address] [address] 01/05/2025 13:15:00 01/06/2025 14:55:19 Insomnia 695252145 G47.00 conttrazod one 75 mg po qhsReferre d to psychMonit or Chronic pain 72640088 G8 9.29 controlled Currently on:tyl 650 mg po tidibuprof en 400 mg gtube tidgabapen tin from 200 mg tube tidapap tidmuscle rub cream tid to left kne[place] get ekg in 1 weeks with hx of cardiac disease on amiodarone Refer to Dr. Flores for eval and tx.monitor for relief and adjustment Candidiasis of mouth 797 10163 B37.0 contnystat in swish and spit x 10 days total, improving, to complete on 01/09peride x mouthwash 15 ml apply to tongue throughout day with swab, provide in amMaintain oral care including brushing tonguemoni tor Carotid ar jonas stenosis [id number] I65.29 sp right carotid endarterec jaida, performed [...] baby asa, awaiting notes Cerebrovas cular accident [id number] I63.9 sp right carotid endarterec jaida, performed on 11/22/24.Sh e suffered a right carotid dissection , hematoma, as well as a CVA, which left her with left sided hemiplegia and dysphagia on tube feedssee pain abovePT OT SLPASA 81 mg qd for acatorvast atin [address] mg qdDr. Mark for further assessment and pain mgmt.Monit or Left hemiplegia 39319536 8 G81.94 see above Dysphagia 28791035 R13.1 0 started on reg diet, puree, and honey consistenc ymeds through g tubecont g tube feedings - currently on jevity 1.5 @ 50 cc/h x20 h per day inspectors and regulatory officers following and titrating now she is eatingSLP eval and tx as indicatedM onitor labs, weights, s/s aspiration . Bipolar disorder 5893244 4 F31.9 hx ofcontinue sertraline 50 mg qdtrazodon e 75 mg po qhs for insomniare ferred to Psychmonit or Congestive heart failure 29243776 I50.9 Continue:f urosemide 20 mg po qdentresto 24-36 po bidspirola ctone 25 mg po qdmonitor bmp and s/s of chf Anemia 404205104 D64.9 stablehx offerrous sulfate 325 mg po qd with vit c qdmonitor cbc and for s/s of bleeding Recurrent falls 48442689 2 R29.6 monitor for injuries/p ainsupport viv carebed rails in place for left sided weakness to help herself movemonito r closely with protocol [id number] Jessica Taylor NP [facility] [address] 01/12/2025 08:32:32 01/17/2025 08:47:39 Dysphagia 17556810 R13.10 now with new cough ? related to eating01/12 start mucinex 600 mg po bid x 69wfsr3/19 cxr for cough ro asp01/12 speech to evalcontre g diet, puree, and honey consistenc ymeds through g tubecont g tube feedings - currently on jevity 1.5 @ 42 cc/h x12 h per day inspectors and regulatory officers which is 50% reduction, plan to dc in 1-2 weeks if doing wellfollow ing and titrating now she is eatingSLP eval and tx as indicatedM onitor labs, weights, s/s aspiration . Chronic pain 07362975 G8 9.29 controlled Currently on:tyl 650 mg po tidibuprof en 400 mg gtube tidgabapen tin from 200 mg tube tidapap tidmuscle rub cream tid to left kne[place]ill get ekg in 1 weeks with hx of cardiac disease on amiodarone Refer to Dr. Flores for eval and tx.monitor for relief and adjustment Candidiasis of mouth 797 44681 B37.0 resolvedco mpleted nystatin swish and spit x 10 days totalperid ex mouthwash 15 ml apply to tongue throughout day with swab, provide in amMaintain oral care including brushing tonguemoni tor Carotid ar jonas stenosis 20553040 I65.29 sp right carotid endarterec jaida, performed [...] baby asa, awaiting notes Cerebrovas cular accident [id number] I63.9 sp right carotid endarterec jaida, performed on 11/22/24.Sh e suffered a right carotid dissection , hematoma, as well as a CVA, which left her with left sided hemiplegia and dysphagia on tube feedssee pain abovePT OT SLPASA 81 mg qd for acatorvast atin [address] qdDr[address] Flores for further assessment and pain mgmt.Monit or Left hemiplegia 94185819 8 G81.94 see above Bipolar disorder 1651143 4 F31.9 hx ofcontinue sertraline 50 mg qdtrazodon e 75 mg po qhs for insomniare ferred to Psychmonit or Congestive heart failure 75057968 I50.9 Continue:f urosemide 20 mg po qdentresto 24-36 po bidspirola ctone 25 mg po qdmonitor bmp and s/s of chf Cough 78456849 R05.9 now with new cough ? related to eating01/12 start mucinex 600 mg po bid x 12izky9/19 cxr for cough ro asp01/12 speech to eval for new coughcont robitussin prnmonitor [id number] Jessica Taylor NP [address] [address] 01/13/2025 09:17:58 01/17/2025 09:21:59 Cough 15926660 R05.9 now with new cough ? related to eating01/12 start mucinex 600 mg po bid x 09iqtv4/19 cxr for cough ro asp01/12 speech to eval for new cough01/13 xray still pendingcon t robitussin prnmonitor Dysphagia 03267412 R13.1 0 now with new cough ? related to eating01/12 start mucinex 600 mg po bid x 49kmxl2/19 cxr for cough ro asp01/12 speech to evalcontre g diet, puree, and honey consistenc ymeds through g tubecont g tube feedings - currently on jevity 1.5 @ 42 cc/h x12 h per day inspectors and regulatory officers which is 50% reduction, plan to dc in 1-2 weeks if doing wellfollow ing and titrating now she is eatingSLP eval and tx as indicatedM onitor labs, weights, s/s aspiration . Chronic pain 84797604 G8 9.29 controlled , reports still having some pain at timesCurre ntly on:tyl 650 mg po tidibuprof en 400 mg gtube tidgabapen tin from 200 mg tube tidapap tidmuscle rub cream tid to left kneeRefer to Dr. Flores for eval and tx.01/10 seen by PM & R and rec tizanidine 2mg po tid3/ will start 01/13 tizandine 2mg po q am and then q 8 hours for spasticity , if tolerates will increase to tidmonitor for relief and adjustment Cerebrovas cular accident [id number] I63.9 sp right carotid endarterec jaida, performed on 11/22/24.Cole ramirez suffered a right carotid dissection , hematoma, as well as a CVA, which left her with left sided hemiplegia and dysphagia on tube feedssee pain abovePT OT SLPASA 81 mg qd for acatorvast atin [address] qdDr[address] Flores for further assessment and pain mgmt.Monit or Left hemiplegia 66841822 8 G81.94 see above [id number] Jessica Taylor NP [facility] [address] [place] [address] 01/20/2025 10:37:44 01/24/2025 12:55:51 Cough 43395853 R05.9 now with new cough ? related to eatingcont mucinex 600 mg po bid for a few more daysspeech to eval for new cough and fees done on 01/19 see hpi3 xray still unremarkab lecont robitussin prnmonitor Dysphagia 65330876 R13.1 0 now with new cough ? related to eating see hpi above contreg diet, puree, and honey consistenc ymeds through g tube01/20 dc g tube feedings - currently on jevity 1.5 @ 42 cc/h x12 h per day inspectors and regulatory officers which is 50% reduction TUMBLER TENDER eval and tx as indicatedM onitor labs, weights, s/s aspiration .monitor for need to dc gtube in one to two months when eating and gaining weight consistent ly Chronic pain 84464625 G8 9.29 controlled , reports still having [...] for relief and adjustment Cerebrovas cular accident [id number] I63.9 sp right carotid endarterec jaida, performed on 11/22/24.Cole ramirez suffered a right carotid dissection , hematoma, as well as a CVA, which left her with left sided hemiplegia and dysphagia on tube feedssee pain abovePT OT SLPASA 81 mg qd for acatorvast atin [address] qdDr[address] Flores for further assessment and pain mgmt.Monit or Left hemiplegia 79763526 8 G81.94 see above [id number] [facility] [address] [place] [address] 01/27/2025 11:29:47 01/31/2025 08:39:10 Cough 68902061 R05.9 resolved xray still unremarkab lecont robitussin prnmonitor Dysphagia 85194880 R13.1 0 contreg diet, puree, and honey [...] and gaining weight consistent ly Chronic pain 68486593 G8 9.29 controlled Currently on:tyl 650 mg po tidibuprof en 400 mg gtube tidgabapen tin from 200 mg tube tidapap tidmuscle rub cream tid to left kneeRefer to Dr. Flores for eval and tx.tizanid ine and leave prn q 8 hours prn for spasticity , did not georges the sched dosesmonit or for relief and adjustment Cerebrovas cular accident [id number] I63.9 sp right carotid endarterec jaida, performed on 11/22/24.Sh ashley suffered a right carotid dissection , hematoma, as well as a CVA, which left her with left sided hemiplegia and dysphagia on tube feedssee pain abovePT OT SLPASA 81 mg qd for acatorvast atin [address] qdDr[address] Flores for further assessment and pain mgmt.Monit or Left hemiplegia 11580042 8 G81.94 see above [id number] [facility] [address] [place] [address] 02/04/2025 11:17:37 02/07/2025 13:13:20 Dysphagia 38225090 R13.10 contreg diet, puree, and honey consistenc y4/11 tolerating meds with nurse in afternoon, will change all meds to pog tube feeds stopped for a 1-2 weeks and gaining weight, and doing well4 decrease g tube flush to 30cc qdnsg to trial meds po in the afternoon and monitorSLP eval and tx as indicatedM onitor labs on onitor weights, s/s aspiration .monitor for need to dc gtube in one to two months when eating and gaining weight consistent ly Chronic pain 62936674 G8 9.29 no painContty l 650 mg po tidibuprof en 400 mg po tidgabapen tin from 200 mg po tidapap tidmuscle rub cream tid to left kneeRefer to Dr. Flores for eval and tx.tizanid ine and leave prn q 8 hours prn for spasticity , did not georges the sched dosesmonit or for relief and adjustment Cerebrovas cular accident [id number] I63.9 sp right carotid endarterec jaida, performed on 11/22/24.Sh ashley suffered a right carotid dissection , hematoma, as well as a CVA, which left her with left sided hemiplegia and dysphagia on tube feedssee pain abovePT OT SLPASA 81 mg qd for acatorvast atin [address] qdDr[address] Mark for further assessment and pain mgmt.Monit or Left hemiplegia 61465901 8 G81.94 see above [id number] Jessica Taylor NP [address] [address] 02/09/2025 09:59:15 02/14/2025 09:40:51 Chronic pain 42600280 G89.29 no painContty l 650 mg po tidibuprof en 400 mg po tidgabapen tin from 200 mg po tidapap tidmuscle rub cream tid to left kneeRefer to Dr. Flores for eval and tx.tizanid ine and leave prn q 8 hours prn for spasticity , did not georges the sched dosesmonit or for relief and adjustment Dysphagia 19243310 R13.1 0 contreg diet, puree, and honey consistenc yg tube feeds stopped >2 weeks ago and gaining weight, and doing wellcont g tube flush to 30cc qd for patencytak ing po meds wellSLP eval and tx as indicateds [place] [facility] [place] weights, s/s aspiration .monitor for need to dc gtube in one to two months when eating and gaining weight consistent ly Cerebrovas cular accident [id number] I63.9 sp right carotid endarterec jaida, performed on 11/22/24.Sh ashley suffered a right carotid dissection , hematoma, as well as a CVA, which left her with left sided hemiplegia and dysphagia on tube feedssee pain abovePT OT SLPcontASA 81 mg qd for acatorvast atin 80 mg qdDrJaiden Flores following for pain mgmt.Monit or Left hemiplegia 71371592 8 G81.94 see above Nasal congestion 8538136 0 R09.81 46477 reports nasal congestion and occ cough for 1.5 weekslast cxr 01/13 unremarkab le02/09alre surya on cetirizine 10 mg po qam and singularst artrobitus sin q 4 hrs prnmucinex dm 1 tab po bid x 7 dayscovid testmonito r [id number] MARY SHARP NP [address] [address] 02/15/2025 13:35:56 02/18/2025 12:45:27 Chronic pain 19705183 G89.29 no painContty l 650 mg po tidibuprof en 400 mg po tidgabapen tin from 200 mg po tidapap tidmuscle rub cream tid to left kneeReferr ed to Dr. Flores for eval and tx.tizanid ine q 8 hours prn for spasticity , did not georges the sched dosesmonit or for relief and adjustment Dysphagia 22713823 R13.1 0 contreg diet, puree, and honey consistenc yg tube feeds stopped >2 weeks ago and gaining weight, and doing wellcont g tube flush to 30cc qd for patencytak ing po meds wellSLP eval and tx as indicateds [place] [facility] [place] r weights, s/s aspiration .monitor for need to dc gtube in one to two months when eating and gaining weight consistent ly Cerebrovas cular accident [id number] I63.9 sp right carotid endarterec jaida, performed on 11/22/24.Cole ramirez suffered a right carotid dissection , hematoma, as well as a CVA, which left her with left sided hemiplegia and dysphagia on tube feedssee pain abovePT OT SLPcontASA 81 mg qd for acatorvast atin [address] qdDr[address] Mark following for pain mgmt.Monit or Left hemiplegia 64590098 8 G81.94 see above Injury of nail 780515454 S99.822A 18734178 Partially avulsed left 4th toenail, clean, no bleeding, minor pink inflammati on of toe. Toe nail very was long, able to be easily trimmed shorter with curved edges to reduce chance of snagging on clothing and socks. Covered with band aid as well to reduce trauma to nailbed - change qd, monitor for s/s infection. Refer to podiatry for possible nail removal. [id number] Florina Nino MD [address] [address] 02/22/2025 19:59:58 05/19/2025 10:57:35 Injury of nail 489801108 S99.822A 76589792 Partially avulsed left 4th toenail, clean, no [...] podiatry for possible nail removal. Chronic pain 67303607 G8 9.29 As above. Dysphagia 59840326 R13.1 9 276298 Improving. Now eating reg diet with thin liquids and taking meds po.Will need to arrange removal of G-Tube.Con tinue TUMBLER TENDER tx prn.Monito r for aspiration . Carotid ar jonas stenosis 34619940 I65.29 As aboveF/U with Dr De Anda as planned. Bipolar disorder 2048169 4 F31.89 0575439 Mood stable.Con tinue sertraline 50 mg qd and trazodone 75 mg qhs.Monito r mood.Consu lt psych prn Anemia 702825930 D64.9 StableCont inue ferrous sulfate 325 mg qd with vit c 250 mg qd for absorption .Monitor labs Chronic ob structive pulmonary disease 44213174 J41.1 No current sxs.Contin ue montelukas t 10 mg qd, cetirizine 10 mg qd and albuterol MDI 1 puff q 6 hrs prn.Monito r resp status Coronary arteriosclerosis 22598646 I25.10 No recent sxs.Contin ue meds as above.Lorna tor sx Automatic implantable cardiac defibrillator in situ 172067008 Z95.[address]Lorna torF/U with cardio as planned. Hypertensive disorder 38 639085 I10 Only one BP charted in past month, with sl elevated DBP.Contin ue meds as above and request weekly BPs. 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 Continue ASA 81 mg qd and atorvastat in 80 mg qd.For pain and spasms continue ibuprofen 400 mg TID, APAP 1000 mg TID, gabapentin 200 mg TID, and tizanidine [address] Flores, PM&R, following for pain mgmt.Monit or Chronic co mbined systolic and diastolic heart failure 3726071468 85826 I50.42 151874 Echo from 2023 showed EF of 30-35% with impaired relaxation .Appears euvolemic. Continue furosemide 20 mg qd, entresto 24/36 mg BID, metoprolol 50 mg qd, and spironolac tone 25 mg qd.Monitor resp. status, fluid status, wts and labs. [id number] [facility] [address] 03/01/2025 09:12:04 03/03/2025 13:13:07 Cerebrovascular accident [id number] I63.9 S/P right carotid endarterec jaida, performed on 11/22/24.Sh ashley suffered a right carotid dissection , hematoma, as well as a CVA, which left her with left sided hemiplegia and dysphagia on tube feeds.Cont inue PT OT SLPNow on regular diet with thins, georges. well. Taking pills wholeConti nue:ASA 81 mg qdatorvast atin [address] qdDr[address] Mark following for pain mgmt. Dysphagia 28403887 R13.1 0 Working with TUMBLER TENDER, making gains.Diet advanced to regular with thins, georges. well so far.Taking meds whole.Lorna tor weightsFlu sh G Tube to maintain patency, can remove in the near future if weights stable and meeting nutritiona l needs and no s/s aspiration . Left hemiplegia 16243025 8 G81.94 see aboveWorki ng with PT OTPMR also involved to help with pain mgmt.Radha nue:Ibupro fen 400 mg tidAPAP 1 gm tidGabapen tin 200 mg tidTizanid ine 2 mg tid prn Congestive heart failure 60160170 I50.9 Continue:f urosemide 20 mg po qdentresto 24-36 po bidspirola ctone 25 mg po qdmonitor bmp and s/s of chf Chronic pain 84762830 G8 9.29 Comfortabl e at presentCon tinue APAP, ibuprofen, gabapentin , tizanidine PMR involved with POC Injury of nail 534569233 S99.822A 09349409 Partially avulsed left 4th toenail 2 wks ago, now healing. Unsure if seen by Podiatry, but nail still intact. Nailbed dark, no s/s infection or pain. Continue to monitor. Carotid ar jonas stenosis 76203950 I65.29 sp right carotid endarterec jaida, performed on 11/22/24 complicate d by right carotid dissection , hematoma, and CVA with residual L sided weakness and dysphagia. Continue ASA and statin.fu with surgery prn - had an appt with Dr De Anda on 01/04 Bipolar disorder 6105766 4 F31.9 hx ofcontinue sertraline 50 mg qdtrazodon e 75 mg po qhs for insomniare ferred to Psych[facility] or Insomnia 187177693 G47.0 0 conttrazod one 75 mg po qhsReferre d to psychMonit or Anemia 377223871 D64.9 stablehx offerrous sulfate 325 mg po qd with vit c qdmonitor cbc and for s/s of bleeding Chronic ob structive pulmonary disease 90495954 J41.1 carrying dxcontinue out patient medsmonito r respirator y status and albuterol utilizatio n Coronary arteriosclerosis 31066235 I25.10 Continue:l ipitor 80 mg qdasa 81 mg qdmetoprol ol 50 mg qdentresto 24-36 po bidspirola ctone 25 mg po qdmonitor sx Automatic implantable cardiac defibrillator in situ 825312749 Z95.810 H/O LBBBComple jesus amiodarone taper.Cont inues on metoprolol 50 mg qd Hypertensive disorder 38 240645 I10 Continue:e ntresto 24-36 po bidmetopro lol 50 mg po qdlasix 20 mg qdspirolac tone 25 mg po qdmonitor bp and need to titrate Chronic cough 55094471 R 05.3 70100 Dry, worst in am, x 1 month.Has had before, uses Vicks at home, OK to use hereUnclea r etiology, possibly allergies, COPD, GERD, ACEI induced.Ivana ngs clear, VSS Plan -Monitor, ok to use Vicks prnAdd flonase qd x 30 daysEnc. use of prn ventolin, can consider scheduling Continue to monitorCan consider increasing PPICan consider stopping Entresto if not responsive to other measures. [id number] Jessica Taylor, BRITTANEY [address] [address] 03/02/2025 09:36:31 03/03/2025 13:23:58 Chronic cough 07945603 R05.3 56434 Dry, reports ongoing for a month with hx of allergiesV icks at home, OK to use here, with minimal help todayagree with other [employer] that unnclear etiology, possibly allergies, COPD, GERD, [...] responsive to other measures. Cerebrovas cular accident [id number] I63.9 S/P right carotid endarterec jaida, performed on 11/22/24. ashley suffered a right carotid dissection , hematoma, as well as a CVA, which left her with left sided hemiplegia and dysphagia on tube feeds.Cont inue PT OT TUMBLER TENDER(off tube feeds )regular diet for about 1 month with georges bonilla. well.Takin g pills wholeConti nue:ASA 81 mg qdatorvast atin 80 mg qdDr. Mark following for pain mgmt. Dysphagia 08685292 R13.1 0 Working with TUMBLER TENDER, making gains.Diet regular with georges bonilla. well so far.Taking meds whole.Lorna tor weightsFlu G Tube to maintain patency, can remove in the near future if weights stable and meeting nutritiona l needs and no s/s aspiration .pt would like g tube out when advised. consider surgeon appt in march/april if contains with weight gain/and no aspiration Left hemiplegia 86308406 8 G81.94 see aboveWorki nury with PT OTPMR also involved to help with pain mgmt.Cont: Ibuprofen 400 mg tidAPAP 1 gm tidGabapen tin 200 mg tidTizanid ine 2 mg tid prn Congestive heart failure 98360352 I50.9 stableCont inue:furos emide 20 mg po qdentresto 24-36 po bidspirola ctone 25 mg po qdmonitor bmp and s/s of chf Chronic pain 27996635 G8 9.29 Comfortabl e at presentCon tAPAP, ibuprofen, gabapentin , tizanidine PMR involved with POC [id number] [facility] [address] 03/04/2025 08:25:35 03/08/2025 14:08:28 Chronic cough 73245621 R05.3 51827 Dry, reports ongoing for a month with [...] responsive to other measures. Cerebrovas cular accident [id number] I63.9 S/P right carotid endarterec jaida, performed on 11/22/24.Cole ramirez suffered a right carotid dissection , hematoma, as well as a CVA, which left her with left sided hemiplegia and dysphagia on tube feeds.Cont inue PT OT TUMBLER TENDER(off tube feeds )regular diet for about 1 month with chad georges. well.Takin g pills wholeConti nue:ASA 81 mg qdatorvast atin [address] qdDr. [place] following for pain mgmt. Dysphagia 52041502 R13.1 0 Working with TUMBLER TENDER, making gains.Diet regular with thins georges. well so far.Taking meds whole.Lorna tor weightsFlu G Tube to maintain patency, can remove in the near future if weights stable and meeting nutritiona l needs and no s/s aspiration .pt would like g tube out when advised. consider surgeon appt in march/april if contains with weight gain/and no aspiration Left hemiplegia 65554196 8 G81.94 see aboveWorki nury with PT OTPMR also involved to [...] bench seatscript s provided Congestive heart failure 15750814 I50.9 stableCont inue:furos emide 20 mg po qdentresto 24-36 po bidspirola ctone 25 mg po qdmonitor bmp and s/s of chf Chronic pain 42574551 G8 9.29 Comfortabl e at presentCon tAPAP, ibuprofen, gabapentin , tizanidine PMR involved with POC [id number] Jessica Taylor NP [facility] [address] 03/07/2025 14:41:35 03/08/2025 14:33:37 Left hemiplegia 029560663 G81.94 see aboveWorki nury with PT OTPMR also involved to [...] commode, tub bench seat Cerebrovas cular accident [id number] I63.9 S/P right carotid endarterec jaida, performed on 11/22/24.Sh ashley suffered a right carotid dissection , hematoma, as well as a CVA, which left her with left sided hemiplegia and dysphagia on tube feeds.Cont inue PT OT TUMBLER TENDER(off tube feeds )regular diet for about 1 month with chad georges. well.Takin g pills wholeCont: ASA 81 mg qdatorvast atin 80 mg qdDr. Mark following for pain mgmt. Chronic cough 65869502 R 05.3 09672 resolvingD ry, reports ongoing for a month [...] if not responsive to other measures. Dysphagia 16202275 R13.1 0 Working with TUMBLER TENDER, making gains.Diet regular with chad georges. well so far.Taking meds whole.Lorna tor weightsFlu G Tube to maintain patency, can remove in the near future if weights stable and meeting nutritiona l needs and no s/s aspiration .pt would like g tube out when advised. consider surgeon appt in march/april if contains with weight gain/and no aspiration Congestive heart failure 01563883 I50.9 stableCont inue:furos emide 20 mg po qdentresto 24-36 po bidspirola ctone 25 mg po qdmonitor bmp and s/s of chf Chronic pain 80385715 G8 9.29 Comfortabl e at presentCon tAPAP, ibuprofen, gabapentin , tizanidine PMR involved with POC Diarrhea 80289732 R19.7 70758490 Pt reports eating non refrigerat ed sandwich with sp diarrheash e reports diarrhea resolved and eating and drinking regularly todaymonit or [id number] Jessica Taylor, BRITTANEY [address] [place] [address] 03/16/2025 09:58:48 03/17/2025 14:05:14 Cerebrovascular accident [id number] I63.9 S/P right carotid endarterec jaida, performed on 11/22/24.Sh ashley suffered a right carotid dissection , hematoma, as well as a CVA, which left her with left sided hemiplegia and dysphagia on tube feeds.Cont inue PT OT TUMBLER TENDER(off tube feeds )regular diet for about 1.5 months with georges bonilla. juan.Rhoda butler pills wholeCont: ASA 81 mg qdatorvast atin 80 mg qdDr. Mark following for pain mgmt. Left hemiplegia 10877236 8 G81.94 see aboveWorki ng with PT OTPMR also involved to help with pain mgmt.Cont: Ibuprofen 400 mg tidAPAP 1 gm tidGabapen tin 200 mg tidTizanid ine 2 mg tid prntherapy consulted with plan to move to handicap aptscripts written for and given to rn social services last weekWheelc hair with arm bolster left side with strap for positionin g, swing away arm rest and leg rest and gel cushion, full electric bed, mattress, versa frame 3:1 commode, tub bench seat Chronic cough 61005991 R 05.3 40369 resolving with belowDry, reports ongoing for a month with hx of allergiesD DX likely allergies, COPD, GERD, ACEI induced.Ivana ngs clear, VSScontrob itussin 10 ml q 4hours prn cough unitl 6/6Vicks prn okay to use per requestflo nase qd x 30 days added 6/6Enc. use of prn ventolin, can consider scheduling Continue to monitor Dysphagia 82052804 R13.1 0 Working with TUMBLER TENDER, making gains.Diet regular with thins, georges. well so far.Taking meds whole.Lorna tor weightsFlu sh G Tube to maintain patency, can remove in the near future if weights stable/imp roving and meeting nutritiona l needs and no s/s aspiration for 2-3 months.pt would like g tube out when advised.co nsider surgeon appt in if contains with weight gain/and no aspiration Chronic pain 49967145 G8 9.29 Comfortabl e at presentCon tAPAP, ibuprofen, gabapentin , tizanidine PMR involved with POC Congestive heart failure [id number] I50.9 stableCont inue:furos emide 20 mg po qdentresto 24-36 po bidspirola ctone 25 mg po qdmonitor bmp and s/s of chf, will reorder for 03/23 cmp, bnp, cbc Injury of nail 065444343 S99.822A [id number] Partially avulsed left 4th toenail now healing. Unsure if seen by Podiatry, but nail still intact. Nailbed dark, no s/s infection or pain. Continue to monitor. Carotid ar jonas stenosis 96050270 I65.29 sp right carotid endarterec jaida, performed on 11/22/24 complicate d by right carotid dissection , hematoma, and CVA with residual L sided weakness and dysphagia. Continue ASA and statin.fu with surgery prn - had an appt with Dr De Anda on 01/04 Bipolar disorder 7071004 4 F31.9 hx ofcontinue sertraline 50 mg qdtrazodon e 100 mg po qhs for insomniare ferred to [facility] or Insomnia 421513103 G47.0 0 conttrazod one 100 mg po qhsReferre d to [facility]Mon[facility] or Anemia 056772259 D64.9 stablehx offerrous sulfate 325 mg po qd with vit c qdmonitor cbc and for s/s of bleeding Chronic ob structive pulmonary disease 43121919 J41.1 carrying dxcontinue out patient medsmonito r respirator y status and albuterol utilizatio n Coronary arteriosclerosis 61558309 I25.10 Continue:l ipitor 80 mg qdasa 81 mg qdmetoprol ol 50 mg qdentresto 24-36 po bidspirola ctone 25 mg po qdmonitor sx Automatic implantable cardiac defibrillator in situ 249695099 Z95.810 H/O LBBBComple jesus amiodarone taper.cont metoprolol 50 mg qd Hypertensive disorder 38 607163 I10 Continue:e ntresto 24-36 po bidmetopro lol 50 mg po qdlasix 20 mg qdspirolac tone 25 mg po qdmonitor bp and need to titrate Recurrent falls 01735062 2 R29.6 monitor for injuries/p ainsuptami viv carebed rails in place for left sided weakness to help herself movemonito r closely with protocol [id number] Jessica [facility], [facility] [address] 03/24/2025 09:23:03 03/30/2025 08:40:23 Cerebrovascular accident 323200691 I63.9 S/P right carotid endarterec jaida, performed on 11/22/24.Sh ashley suffered a right carotid dissection , hematoma, as well as a CVA, which left her with left sided hemiplegia and dysphagia on tube feeds.Cont inue PT OT TUMBLER TENDER(off tube feeds )regular diet for about 1.5 months with georges bonilla. well. consider removal of g tube in april if weight remains stable. She has not gained any weight on supplement s and po foods, just maintained .Taking pills wholeCont: ASA 81 mg qdatorvast atin [address] qdDr. Mark following for pain mgmt. Left hemiplegia 68807112 8 G81.94 stable on this regimenPMR also involved to help with pain mgmt.Cont: Ibuprofen 400 mg tidAPAP 1 gm tidGabapen tin 200 mg tidTizanid ine 2 mg tid prnplan:th silvano consulted with plan to move to handicap aptscripts written for already and given to rn social services last weekWheelc hair with arm bolster left side with strap for positionin g, swing away arm rest and leg rest and gel cushion, full electric bed, mattress, versa frame 3:1 commode, tub bench seat Chronic cough 95713204 R 05.3 85158 remains with slight dry cough at baselineDr y, reports ongoing for a month with hx of allergiesD DX likely allergies, COPD, GERD, ACEI induced.Ivana ngs clear, VSScontrob itussin 10 ml q 4hours prn cough unitl 6/6Vicks prn okay to use per requestflo nase qd x 30 days added 66Enc. use of prn ventolin, can consider scheduling Continue to monitor Dysphagia 41551521 R13.1 0 Working with TUMBLER TENDER, making gains.Diet regular with thins, georges. well so far.Taking meds whole.Lorna tor weightsFlu sh G Tube to maintain patency, can remove in the near future if weights stable/imp roving and meeting nutritiona l needs and no s/s aspiration for 2-3 months.pt would like g tube out when advised.co nsider surgeon appt in april if contains with weight gain/and no aspiration Chronic pain 41236395 G8 9.29 Comfortabl e at presentCon tAPAP, ibuprofen, gabapentin , tizanidine PMR involved with POC Congestive heart failure 41132091 I50.9 stable bnp as aboveConti nue:furose mide 20 mg po qdentresto 24-36 po bidspirola ctone 25 mg po qdmonitor bmp and s/s of chf, will reorder for 03/23 cmp, bnp, cbc Carotid ar jonas stenosis 97684604 I65.29 sp right carotid endarterec jaida, performed on 11/22/24 complicate d by right carotid dissection , hematoma, and CVA with residual L sided weakness and dysphagia. Continue ASA and statin.fu with surgery prn - had an appt with Dr De Anda on 01/04 Bipolar disorder 4937161 4 F31.9 hx ofcontinue sertraline 50 mg qdtrazodon e 100 mg po qhs for insomniare ferred to [facility] or Insomnia 610095691 G47.0 0 conttrazod one 100 mg po qhsReferre d to [facility] or Anemia 836121949 D64.9 stablehx offerrous sulfate 325 mg po qd with vit c qdmonitor cbc and for s/s of bleeding Automatic implantable cardiac defibrillator in situ 926531679 Z95.810 H/O LBBBComple jesus amiodarone taper.cont metoprolol 50 mg qd Hypertensive disorder 38 860441 I10 Continue:e ntresto 24-36 po bidmetopro lol 50 mg po qdlasix 20 mg qdspirolac tone 25 mg po qdmonitor bp and need to titrate Recurrent falls 67600170 2 R29.6 no recent fallsmonit or for injuries/p ainsuptami nam carebed rails in place for left sided weakness to help herself movemonito r closely with protocol Dizziness 328718770 R42 75195 see hpilabs stable, appears euvolemic start meclizine 12.5 mg po q 8hrs03/24 start orthostast atic bp x 1adjust meds prnmonitor [id number] MARY SHARP NP [facility] [address] [place] [address] 03/29/2025 11:41:56 04/05/2025 10:09:45 Bipolar disorder 32719838 F31.9 Recent issues with insomniaSe en by Psych 03/28, recommendi ng increasing trazodone to 150 mg q hs which pt. is agreeable to trying to see if it will help with sleep.Cont inue sertraline 50 mg qdMonitor and update Psych with concerns. [id number] Jessica [facility] [address] [place] [address] 04/06/2025 08:16:31 04/12/2025 10:51:42 Bipolar disorder 38148704 F31.9 Recent issues with insomniaCo ntinuesert raline 50 mg qdtrazodon e 100 mg po qhsMonitor and update Psych with concerns outpt Dizziness 192678529 R42 62260 hx oflabs stable, appears euvolemicc ontmeclizi ne 12.5 mg po q 8hrsadjust meds prnmonitor outpt with pcp Cerebrovas cular accident 273536653 I63.9 S/P right carotid endarterec jaida, performed on 11/22/24.Sh ashley suffered a right carotid dissection , hematoma, as well as a CVA, which left her with left sided hemiplegia and dysphagia on tube feeds.Cont inue PT OT TUMBLER TENDER(off tube feeds )regular diet for about 1.5 months with thins, georges. well. consider removal of g tube in april if weight remains stable. She has not gained any weight on supplement s and po foods, just maintained .Taking pills wholeCont: ASA 81 mg qdatorvast atin [address] qdDr[address] Mark following for pain mgmt. Left hemiplegia 49179605 8 G81.94 stable on this regimenPMR also involved to help with pain mgmt.Cont: Ibuprofen 400 mg tidAPAP 1 gm tidGabapen tin 200 mg tidTizanid ine 2 mg tid prnplan:th erapy consulted with plan to move to handicap aptscripts written for already and given to rn social services last weekWheelc hair with arm bolster left side with strap for positionin g, swing away arm rest and leg rest and gel cushion, full electric bed, mattress, versa frame 3:1 commode, tub bench seatfu with pcp outpt Chronic cough 21926390 R 05.3 37562 remains with slight dry cough at baselineDr [...] monitor and fu outpt with pcp Dysphagia 22975011 R13.1 0 Working with TUMBLER TENDER, making gains.Diet regular with thins georges. well [...] aspiration for g tube removal Chronic pain 87644687 G8 9.29 Comfortabl e at presentCon tAPAP, ibuprofen, gabapentin , tizanidine PMR involved with POC Congestive heart failure 40322466 I50.9 stable bnp as aboveConti nue:furose mide 20 mg po qdentresto 24-36 po bidspirola ctone 25 mg po qdfu outpt wtih pcp Carotid ar jonas stenosis 42461856 I65.29 sp right carotid endarterec jaida, performed on 11/22/24 complicate d by right carotid dissection , hematoma, and CVA with residual L sided weakness and dysphagia. Continue ASA and statin.fu with surgery/va scular prn and outpt with pcp Insomnia 640422769 G47.0 0 conttrazod one 100 mg po qhsReferre d to psych here, fu outpt prnMonitor outpt with pcp Anemia 271842664 D64.9 stablehx offerrous sulfate 325 mg po qd with vit c qdmonitor with pcp outpt Automatic implantable cardiac defibrillator in situ 933033686 Z95.810 H/O LBBBComple jesus amiodarone taper.cont metoprolol 50 mg qdfu with pcp outpt Hypertensive disorder 38 891479 I10 Continue:e ntresto 24-36 po bidmetopro lol 50 mg po qdlasix 20 mg qdspirolac tone 25 mg po qdmonitor bp and need to titrate outpt with pcp Recurrent falls 43111565 2 R29.6 no recent fallsmonit or for injuries/p ainsupport viv carebed rails in place for left sided weakness to help herself movemonito r closely with protocol and vna Chronic ob structive pulmonary disease 65409437 J41.1 carrying dxcontinue out patient medsmonito r respirator y status and albuterol utilizatio n outpt with pcp Coronary arteriosclerosis 48866499 I25.10 Continue:l ipitor 80 mg qdasa 81 mg qdmetoprol ol 50 mg qdentresto 24-36 po bidspirola ctone 25 mg po qdmonitor sx outpt with pcp Seasonal allergy 5427976 04 J30.2 60719 singulair 10 mg qd \flonase 1 spray each nare qdfu with pcp Gastroesop hageal reflux disease without esophagitis 635726914 K21.9 362977 hx ofpantopra zole 40 mg po qdmonitor outpt with pcp Health Concerns Section Related Observation LastModified by Organization Detai ls LastModified Time None Recorded Concern Status LastModified by Organization Details LastModified Time None Recorded Advance Directives Directive Y: Payers Insurance Date Sequence Insurance Name Policy Number Policy [employer] Covered Member ID Stanford Member ID Guarantor Name 05/20/2025 1 [facility] - DOS ON OR AFTER 2023 - MEDICARE ADVANTAGE [place] (MEDICARE REPLACEMENT/ADV ANTAGE - PPO) Renita Brandon [id number] Renita Brandon Notes Date Note Type Note [...] here on 12/08/24 after a [place] [facility] [place] right [place] after a [...] both left extremities. She continues working with TUMBLER TENDER, making good progress, remains on regular diet with thin liquids, georges. well, maintaining weights so far. Taking pills whole Jessica Taylor NP [address], [address], [place], [address], [facility] [employer] 03/07/2025 17:48:15 03/16/2025 text/html Renita is seen today for a 90 routine rounding visit. Her PMH includes HTN, hx of carotid artery stenosis s/p right carotid dissection with left hemiplegia, CHF, GERD, bipolar dz, COPD, HLD, and anemia. She is a 54 yo woman admitted here on 12/08/24 after a hospitalization [place] [facility] [place] a right carotid dissection after a right carotid endarterectomy, performed on 11/22/2024. Resulting in left-sided hemiplegia and dysphagia. A PEG was placed and she was NPO for several months. Since here at [facility]: Renita was started on trazadone [...] but just maintaining. She is followed by inspectors and regulatory officers and has supplements. She may have g [...] extremities. In general, She continues working with TUMBLER TENDER, making good progress, remains on regular diet with thin liquids, georges. well, maintaining weights so far. Taking pills whole She was started on flonase and robitussin for occ cough with effect. She On exam, She is smiling and no concerns. Lungs CTA. She continues with left sided weakness. She is planning on d/c to a new 1st floor [facility] with CERTIFIED RETINAL ANGIOGRAPHER care on 04/01. Her mother and daughter live nearby to [facility]. She is looking forward to going home. Jessica Taylor NP [address], [address], [place], [address], [facility] 03/16/2025 10:22:54 03/24/2025 text/html Pt is seen [...] here on 12/08/24 after a hospitalization [place] [facility] [place] a right [place] dissection after a [...] to a new 1st floor apt with CERTIFIED RETINAL ANGIOGRAPHER care on 04/01. Scripts for DME have been provided and working on set up of her new place. Her mother and daughter live nearby to [facility]. She is looking forward to going home at that time. Jessica Taylor NP [address], [address], [place], [address], [employer] 03/24/2025 10:13:17 03/29/2025 text/html Renita is seen [...] concerns per nsg. MARY SHARP NP [address], [address], [place], [address], [employer] 03/29/2025 11:51:06 04/06/2025 text/html Renita is seen today for a discharge rounding visit. Her PMH includes HTN, hx of carotid artery stenosis s/p right carotid dissection with left hemiplegia, CHF, GERD, bipolar dz, COPD, HLD, and anemia. Labs last reviewed from 03/23 and stable. She is a 54 yo woman admitted here on 12/08/24 after a hospitalization at [facility] [place] a right carotid dissection after a right carotid endarterectomy, performed on 11/22/2024. Resulting in left-sided hemiplegia and dysphagia. A PEG was placed and she was NPO for several months. Since here at [facility] she is currently off g [...] to a new 1st floor apt with CERTIFIED RETINAL ANGIOGRAPHER care. Scripts for DME have been provided and set up of her new place. Her mother and daughter live nearby to [facility]. She is looking forward to going home at that time. Script[facility] sent [facility] per request. Spent greater than 60 minutes on discharge and corrdination etc... On exam, Renita is smiling and happy to go home later today. office services assistant is checking to make sure her equipment is at her place. No distress or complaints and remains with mild cough at times, seems to be allergy related. Jessica Taylor NP [address], [address], [place], [address], [facility] [employer] 04/06/2025 11:45:18 OBGyn Episode No OBEpisode recorded.
--- OUTSIDE RECORDS SUMMARY | 2025-09-20 09:27 | XMS_ITS | Encounter Summary ---
Author Organization [employer] Address [address] [place] [address] Care Team Providers Care Vegetable Ii Farmworker Name Role Phone Hilda Butt MD Primary Care Provider [phone] Encounter Details Date Type Department Care Team ([facility] st Contact Info) Description 07/02/2024 Orders Only [facility] [address], [place] [phone] Hilda Butt MD [address] [place], [place] [phone] Subacute cough (Primary Dx) Social History Tobacco [...] documented as of this encounter Care Teams Vegetable Ii Farmworker Relationship Specialty Start Date End Date Hilda Butt MD [address] [place] [id number] PCP - General Family Medicine 06/20/22 Wilfrido 04/08/25 documented as of this encounter
== END 2025-09-20 09:49 | disposition home or self-care (01) ==
LOC: HO.HPSW 08:53
PROVIDERS: PCP General Practice; Visit Provider Nurse Practitioner Family
DX: R05.9 Cough, unspecified (principal); J44.9 Chronic obstructive pulmonary disease, unspecified; R91.1 Solitary pulmonary nodule
CPT/HCPCS: 99214

== ENCOUNTER → 2025-09-20 08:52 | Outpatient (BNVA) | payer OTHER, SELFPAY | PROVIDERS: PCP General Practice; Visit Provider Nurse Practitioner Family | DX: J44.9 Chronic obstructive pulmonary disease, unspecified (principal); R91.1 Solitary pulmonary nodule; Z79.899 Other long term (current) drug therapy; Z87.891 Personal history of nicotine dependence | CPT/HCPCS: 99212 ==

== ENCOUNTER → 2025-10-02 14:38 | Outpatient (BNV) | payer OTHER, SELFPAY | PROVIDERS: PCP General Practice; Visit Provider Internal Medicine | DX: Z45.02 Encounter for adjustment and management of automatic implantable cardiac defibrillator (principal) | CPT/HCPCS: 93297 ==